=== PATIENT | female | born 1960 | race Caucasian/White ===

== ENCOUNTER → 2023-01-06 | Outpatient (CLI) | payer MEDICARE, SELFPAY ==
[2023-01-06 16:17] LABS: Anion Gap 0 (5-15); BUN 17 mg/dL (7-18); BUN/Creat Ratio 22.2 RATIO (10-20); Calcium,Total 8.8 mg/dL (8.5-10.1); Chloride 111 mmol/L (98-107); Creatinine, Serum 0.77 mg/dL (0.55-1.02); EST Glomerular Filtration Rate 81 mL/min (>60); Est Glom Filt Rate - Afr Amer 98 mL/min (>60); Glucose 102 mg/dL (74-106); Potassium 3.6 mmol/L (3.5-5.1); Sodium Level 139 mmol/L (136-145)
== END | disposition home or self-care (01) ==
LOC: LAB 14:35
PROVIDERS: Referring Provider Internal Medicine Cardiovascular Disease; Visit Provider Internal Medicine Cardiovascular Disease
DX: I25.10 Atherosclerotic heart disease of native coronary artery without angina pectoris (principal); R07.9 Chest pain, unspecified; R06.02 Shortness of breath; R60.9 Edema, unspecified
CPT/HCPCS: 36415; 80048

== ENCOUNTER 2024-07-10 17:54 | Inpatient (IN) | payer MEDICARE, MEDICAID, SELFPAY ==
[2024-07-10] VITALS (8 sets, daily range): BP systolic 84–132; BP diastolic 68–100; PULSE 73–79; RESP 12–18; TEMP 36.8–37.1; O2SAT 94–96; BMI 38.9
--- OUTSIDE RECORDS SUMMARY | 2024-07-10 18:25 | XMS RPT_ITS | CCD ---
Author Organization [facility] Care Team Providers Care Sexual Abuse Counsellor Name Role Phone Leticia Sylvester Unavailable Unavailable Yousuf, Sondra S Unavailable Unavailable Yousuf, Sondra S Unavailable Unavailable Higinio Nyan Unavailable Unavailable Higinio Nyan Unavailable Unavailable Lucille, Valentino J Unavailable Unavailable Lucille, Valentino J Unavailable Unavailable Charles Russell Unavailable Unavailable Charles Russell Unavailable Unavailable Adam Russ Unavailable Unavailable Adam Russ Unavailable Unavailable Higinio [place] Primary Care Provider Higinio [place] Primary Care Provider HIGINIO [facility] Primary Care Unavailable DIGNA ENRIQUEZ Referring Unavaila ble DIGNA ENRIQUEZ Admitting Unavaila ble Higinio [place] Primary Care Provider Digna Enriquez Unavailable Higinio CHUNG [place] Primary Care Provider Digan Enriquez DPM Unavailable Digna Enriquez DPM Unavailable CODY ANDERSONE Tanesha Referring Unavailable SHIRIMAGABOALIE N Attending Unavailable [facility] Primary Care Unavailable SELF, SELF Referring Unavailable RICE LISA N Attending Unavailable [facility] Primary Care Unavailable SELF, SELF Referring Unavailable RICE, LISA N Attending Unavailable [facility] Primary Care Unavailable [facility], [facility] Primary Care Unavailable SELF, SELF Referring Unavailable SHIRIMA, DAMALIE N Attending Unavailable [facility] Primary Care Unavailable [facility], [facility] Referring Unavailable SHIRIMA, DAMALIE N Attending Unavailable [facility] Primary Care Unavailable SHIRIMA, DAMALIE N Attending Unavailable NORIA, MARINE Referring Unavailable [facility] Primary Care Unavailable RICE, LISA N Referring Unavailable RICE, LISA N Attending Unavailable [facility], [facility] Referring Unavailable PUMPER, NESHA L Attending Unavailable [facility], [facility] Primary Care Unavailable [facility], [facility] Primary Care Unavailable RICE, LISA N Referring Unavailable MEIR GASPAR Attending Unavailable SELF, SELF Referring Unavailable SHIRIMA, DAMALIE N Attending Unavailable [facility], [facility] Primary Care Unavailable [facility], [facility] Referring Unavailable SHIRIMA, DAMALIE N Attending Unavailable [facility], [facility] Primary Care Unavailable SELF, SELF Referring Unavailable SHIRIMA, DAMALIE N Attending Unavailable [facility], [facility] Primary Care Unavailable PUMPER, NESHA L Attending Unavailable [facility], [facility] Primary Care Unavailable RICE, LISA N Referring Unavailable SELF, SELF Referring Unavailable [facility], [facility] Primary Care Unavailable RICE, LISA N Attending Unavailable Higinio CHUNG, [facility] Primary Care Provider Terrence CHUNG, Lupillo Unavailable Yanet [employer] DIRECT[employer], Jaime Unavailable [facility] Care Provider Terrence CHUNG, Lupillo Unavailable Yanet EXAMINATION SCORER-CONTRACTS DIRECTOR, Jaime Unavailable Robert [facility] DIRECT[facility], Eusebia [facility] Yanna CHUNG, Ishaan Unavailable [facility] Primary Care Unavailable JUDY GEORGE Attending Unavailable MIN SOUSA Attending Unavailab le [facility] Primary Care Unavailable [facility] [phone] [facility] Primary Care Unavailable ELI MORATAYA Referring Unavailable Terrence CHUNG, Lupillo Unavailable Yanet [facility] DIRECTOR, Jaime Unavailable [facility] Care Provider Robert [facility] DIRECTOR, Eusebia Unavailable [facility] [phone] CAROL ANN VICENTE Attending Unavailable [facility] Primary Care Unavailable SELF, SELF Referring Unavailable CAROL ANN VICENTE Referring Unavailable [facility], [facility] Primary Care Unavailable CAROL ANN VICENTE Attending Unavailable CALVIN PIMENTEL Admitting Unavailable CRISTIANO BEE Attending Unavailable [facility], [facility] Primary Care Unavailable [facility], [facility] Primary Care Unavailable [facility], [facility] Primary Care Unavailable Gould DO, Eduardo S Primary Care Provider PROVIDER, UNKNOWN Admitting Unavailable PROVIDER, UNKNOWN Attending Unavailable JAIME CARTER Referring Unavailable [facility], [facility] Primary Care Unavailable PROVIDER, UNKNOWN Admitting Unavailable JAIME CARTER Attending Unavailable [facility], [facility] Primary Care Unavailable PROVIDER, UNKNOWN Admitting Unavailable PROVIDER, UNKNOWN Attending Unavailable [facility], [facility] Primary Care Unavailable PROVIDER, UNKNOWN Attending Unavailable GILLER, JAIME Referring Unavailable [facility], [place] Primary Care Unavailable PROVIDER, UNKNOWN Admitting Unavailable ROYAL, EDUARDO S Primary Care Unavailable ROYAL, EDUARDO S Attending Unavailable ROYAL, EDUARDO S Primary Care Unavailable ROYAL, EDUARDO S Referring Unavailable ROYAL, EDUARDO S Primary Care Unavailable [facility], [facility] Primary Care Unavailable MARJAN CHARLES Attending Unavailable [facility], [facility] Primary Care Unavailable SOHAM SIFUENTES Attending Unavailable SYSTEM, PROVIDER NOT IN Referring Unavaila ble WIN, [place] Primary Care Unavailable Allergies Allergy Classification Reported Allergen(s) Allergy Type Date of Onset Reaction(s) Facility Latex (5 sources) Latex; Translations: [LATEX] Substance Allergy 9 Rash, Hives [facility] Opioid Agonists (9 sources) Codeine; Translations: [CODEINE] Drug Allergy 1 Hives, Itching [facility] Penicillins (antibiotic) (6 sources) Penicillin; Translations: [PENICILLINS] Drug Allergy 6 Itching, Rash, Hives [facility] (20 sources) codeine; Translations: [CODEINE] Propensity to adverse reactions to drug 1 Hives [facility] (20 sources) fentaNYL; Translations: [FENTANYL] Propensity to adverse reactions to drug 0 Itching [facility] (20 sources) Latex; Translations: [LATEX] Propensity to adverse reactions to drug 9 Rash, Hives [facility] (20 sources) penicillin; Translations: [PENICILLIN] Propensity to adverse reactions to drug 6 Itching, Rash [facility] (7 sources) Ct: Iodinated Contrast- Oral And Iv Dye; Translations: [CT: IODINATED CONTRAST- ORAL AND IV DYE] Propensity to adverse reactions to drug 2 Hives, Itching [facility] (20 sources) Penicillins; Translations: [PENICILLINS] Propensity to adverse reactions to drug 6 Hives, Itching, Rash [facility] (20 sources) Penicillin G; Translations: [PENICILLIN G POTASSIUM] Drug Allergy 6 [facility] Work Phone: (20 sources) Latex Propensity to adverse reactions to drug 5 Hives, Rash [facility] (5 sources) Ketorolac Drug Allergy 2 Hives, Pain [facility] (6 sources) Ketorolac; Translations: [KETOROLAC] Drug Allergy 3 Hives, Other (See Comments) [facility] (3 sources) Ketorolac trometamol Propensity to adverse reactions to drug 2 Hives, Pain [facility] Medications Current Medications Medication Drug Class(es) Dates Sig (Normalized) Sig (Original) acetaminophen 300 mg / codeine phosphate 30 mg oral tablet (20 sources) Opioid Agonist Start: 06-02-2007 TYLENOL/CODEINE #3 300-30 MG OR TABS 1 OR 2 TABLETS EVERY 4 TO 6 HOURS NEEDED FOR PAIN 28 0 06/02/2007 Active [id number] 200 actuat albuterol 0.09 mg/actuat metered dose inhaler (20 sources) beta2-Adrenergic Agonist Start: 11-05-2022 take 2 puff(s) by inhalation every six hours as needed for wheezing albuterol 90 mcg/actuation inhaler Inhale 2 (two) puffs every 6 (six) hours as needed for wheezing . 18 g 0 11/05/2022 Active Start: 11-28-2020 End: 12-01-2020 take 2.5 mg by inhalation every six hours as needed 2.5 mg, Nebulization, Every 6 hours PRN (RT), wheezing, shortness of breath, Starting 11/28/20 at 2028 Start: 11-01-2019 albuterol (PRO VENTIL HFA) INHALATION HFA inhaler (VENTOLIN,PROAIR,PROVENTIL) 90mcg Inhale 2 Puffs by mouth. 11/01/2019 Active Start: 11-01-2019 take 2 puff(s) by in halation every six hours as needed for wheezing albuterol 90 mcg/actuation inhaler Inhale 2 (two) puffs every 6 (six) hours as needed for wheezing . 1 Inhaler 0 11/01/2019 Active take 1 puff(s) by in halation every six hours as needed albuterol 108 (90 Base) MCG/ACT Aero Soln inhaler Inhale 1 puff every 6 hours as needed. Active albuterol 90 mcg/actuation inhaler (20 sources) Start: 11-01-2019 take 2 puff(s) by inhalation every six hours as needed for wheezing albuterol 90 mcg/actuation inhaler Inhale 2 (two) puffs every 6 (six) hours as needed for wheezing . 1 Inhaler 0 11/01/2019 Suspended Start: 11-01-2019 take 2 puff(s) by in halation every six hours as needed for wheezing albuterol 90 mcg/actuation inhaler Inhale 2 (two) puffs every 6 (six) hours as needed for wheezing . 1 Inhaler 0 11/01/2019 Active Start: 11-01-2019 End: 11-08-2019 take 2 puff(s) by inhalation every six hours as needed for wheezing albuterol 90 mcg/actuation inhaler Inhale 2 (two) puffs every 6 (six) hours as needed for wheezing . 1 Inhaler 0 11/01/2019 11/08/2019 Active ALPRAZolam 0.5 mg oral tablet (20 sources) Benzodiazepine Start: 06-08-2023 End: 07-08-2023 take 1 tablet by mouth twice daily as needed for anxiety ALPRAZolam (XANAX) 0.5 MG tablet Indications: Anxiety Take 1 (one) tablet (0.5 mg total) by mouth 2 (two) times a day as needed for anxiety (Days supply per fill: 30) . 60 tablet 0 06/08/2023 Active Start: 05-22-2023 End: 05-26-2023 take 1 mg by mouth twice daily as needed for anxiety 1 mg, Oral, 2 TIMES DAILY NEEDED, Starting on Thu05/22/23 at 2114, Until Thu05/26/23 at 1920, Anxiety Start: 01-28-2022 End: 01-31-2022 take 1 mg by mouth once daily 1 mg, Oral, DAILY, First dose on Thu01/28/22 at 1200, Until Discontinued Start: 11-29-2020 End: 12-01-2020 take 1 mg by mouth once daily 1 mg, Oral, Daily, First dose on Shy 11/29/20 at 0900 Start: 11-28-2020 End: 12-01-2020 ALPRAZolam (XANAX) tablet 0. 5 mg Start: 07-08-2019 End: 07-08-2019 take 1 tablet by mouth every eight hours as needed 0.25 mg, Oral, Every 8 hours PRN, anxiety, Starting Thu07/08/19 at 1010 May repeat x1 in 30 minutes if still anxious. XANAX OR Indicat ions: Dermatitis due to drugs and medicines taken internally(693.0) None Entered Active ALPRAZolam 1 MG tablet Take by mouth daily. Active take 1 tablet by alvino twice daily as needed ALPRAZolam 1 MG tablet Xanax 1 mg oral tablet take 1 tablet (1 mg) by oral route BID prn Suspended Active XANAX OR Indicat ions: Dermatitis due to drugs and medicines taken internally(693.0) None Entered 0 Active aMILoride hydrochloride 5 mg / hydroCHLOROthiazide 50 mg oral tablet (20 sources) Potassium-sparing Diuretic, Thiazide Diuretic Start: 02-16-2007 take 1 tablet by mouth once daily AMILORIDE-HYDROCHLOROTHIAZIDE 5-50 MG OR TABS 1 TABLET DAILY 30 3 02/16/2007 Active amLODIPine 2.5 mg oral tablet (20 sources) Dihydropyridine Calcium Channel Hero End: 05-24-2023 take 1 tablet by mouth once daily amLODIPine (NORVASC) 2.5 MG tablet Take 2.5 mg by mouth daily. Active atorvastatin 40 mg oral tablet (12 sources) HMG-CoA Reductase Inhibitor Start: 05-24-2023 End: 06-23-2023 take 1 tablet by mouth once daily in the evening Atorvastatin 40 MG tablet Take 1 tablet by mouth every evening at 6 PM. 30 tablet 05/24/2023 Active Start: 05-22-2023 End: 05-26-2023 take 20 mg by mouth once daily at bedtime 20 mg, Oral, DAILY AT BEDTIME, First dose on Thu05/22/23 at 2130, Until Discontinued brexpiprazole 2 mg oral tablet (20 sources) Atypical Antipsychotic Start: 06-17-2023 take 1 tablet by mouth once daily brexpiprazole (Rexulti) 2 mg tablet Take 1 (one) tablet (2 mg total) by mouth daily . 30 tablet 3 06/17/2023 Active Start: 06-17-2023 End: 05-24-2023 take 1 tablet by mouth once daily brexpiprazole (Rexulti) 2 mg tablet Take 1 (one) tablet (2 mg total) by mouth daily . 30 tablet 3 06/17/2023 Active Start: 11-29-2020 End: 12-01-2020 take 2 mg by mouth once daily in the morning 2 mg, Oral, Every morning, First dose on Shy 11/29/20 at 0900 Continuation of home therapy? Yes take 1 tablet by alvino th once daily in the morning Rexulti 2 MG tablet Take 1 tablet by mouth daily every morning. Active busPIRone hydrochloride 10 mg oral tablet (2 sources) Start: 07-28-2023 take 1 tablet by mouth twice daily busPIRone (BUSPAR) 10 MG tablet Indications: Anxiety disorder, unspecified type Take 1 (one) tablet (10 mg total) by mouth 2 (two) times a day . 30 tablet 3 07/28/2023 Active Start: 06-17-2023 End: 06-16-2024 take 1 tablet by mouth twice daily busPIRone (BUSPAR) 7.5 MG tablet Take 1 (one) tablet (7.5 mg total) by mouth 2 (two) times a day . 60 tablet 3 06/17/2023 06/16/2024 Active carvedilol 12.5 mg oral tablet (5 sources) alpha-Adrenergic Hero, beta-Adrenergic Hero Start: 05-24-2023 End: 06-23-2023 take 1 tablet by mouth twice daily carveDILOL 12.5 MG tablet Take 1 tablet by mouth 2 times daily. 60 tablet 05/24/2023 Active Start: 05-22-2023 End: 05-26-2023 take 12.5 mg by mouth every twelve hours 12.5 mg, Oral, EVERY 12 HOURS, First dose on Thu05/22/23 at 2130, Until Discontinued chlorhexidine gluconate 1.2 mg/ml mouthwash (20 sources) Start: 11-10-2017 take 15 mL by mouth twice daily chlorhexidine (PERIDEX) 0.12 % oral solution Take 15 mL by mouth 2 times daily. 1 Bottle 2 11/10/2017 Active cholecalciferol, vitamin D3, (VITAMIN D3 ORAL) (12 sources) take 125 ug by mouth once daily cholecalciferol, vitamin D3, (VITAMIN D3 ORAL) Take 125 mcg by mouth daily . 0 Active clindamycin 300 mg oral capsule (8 sources) Lincosamide Antibacterial Start: 12-01-2020 End: 12-08-2020 take 1 capsule by mouth four times daily clindamycin (CLEOCIN) 300 MG capsule Take 1 (one) capsule (300 mg total) by mouth 4 (four) times a day for 7 days . 28 capsule 0 12/01/2020 12/08/2020 Active Start: 11-28-2020 End: 12-01-2020 take 600 mg intravenous route every eight hours clindamycin (CLEOCIN) IVPB 600 mg (premix) cyclobenzaprine hydrochloride 10 mg oral tablet (6 sources) Muscle Relaxant Start: 02-16-2023 End: 04-17-2023 take 1 tablet by mouth three times daily as needed for muscle spasms Cyclobenzaprine 10 MG tablet Take 1 tablet by mouth 3 times daily as needed for Muscle spasms. 21 tablet 02/16/2023 Active dexamethasone 6 mg oral tablet (2 sources) Corticosteroid Start: 02-16-2023 End: 02-16-2023 dexAMETHasone (DECADRON) injection 10 mg Start: 10-22-2021 End: 10-26-2021 take 1 tablet by mouth once daily at breakfast dexAMETHasone (DECADRON) 6 MG tablet Take 1 (one) tablet (6 mg total) by mouth daily with breakfast for 4 days Start: 10/22/21. 4 tablet 0 10/22/2021 10/26/2021 Active diazePAM 10 mg oral tablet (1 source) Benzodiazepine Start: 02-18-2024 diazePAM (Valium) 10 mg tablet Take 1 tablet (10 mg) by mouth as needed at bedtime for anxiety. 02/18/2024 Active docusate sodium 50 mg / sennosides, skilled nursing 8.6 mg oral tablet (19 sources) Start: 12-01-2020 End: 12-31-2020 take 1 tablet by mouth once daily senna-docusate (SENNA-S) 8.6-50 mg Take 1 (one) tablet by mouth daily . 30 tablet 0 12/01/2020 12/31/2020 Active doxepin hydrochloride 25 mg oral capsule (3 sources) Tricyclic Antidepressant Start: 06-30-2023 take 1 capsule by mouth once daily doxepin (SINEQUAN) 25 MG capsule take 1 capsule by mouth nightly 30 capsule 0 06/30/2023 Active Start: 06-17-2023 End: 07-17-2023 take 1 capsule by mouth once daily doxepin (SINEQUAN) 50 MG capsule Take 1 (one) capsule (50 mg total) by mouth nightly . 30 capsule 3 06/17/2023 Active esomeprazole 40 mg delayed release oral capsule (20 sources) Proton Pump Inhibitor Start: 08-19-2022 End: 04-17-2023 take 1 capsule by mouth once daily 30 minutes before breakfast esomeprazole (NEXIUM) 40 MG capsule Indications: Hiatal hernia , Epigastric pain take 1 capsule by mouth daily THIRTY MINUTES BEFORE BREAKFAST 30 Capsule 3 12/16/2022 Active FLUoxetine 60 mg oral tablet (20 sources) Serotonin Reuptake Inhibitor take 60 mg by mouth once daily FLUoxetine HCl (PROZAC ORAL) Take 60 mg by mouth daily. Active End: 06-23-2019 FLUoxetine (PROzac) 40 MG ca psule Take 60 mg by mouth. 0 06/23/2019 Discontinued (Therapy completed) furosemide 20 mg oral tablet (20 sources) Loop Diuretic Start: 10-30-2008 furosemide (LA SIX) 20 MG tablet Take by mouth. 0 10/30/2008 Active Start: 10-30-2008 take 2 tablets by mo [facility] once daily in the morning furosemide (LASIX) 20 MG tablet Indications: pt takes 2 tabs daily Take 40 mg by mouth every morning Reasons: pt takes 2 tabs daily. 0 10/30/2008 Active End: 05-24-2023 take 1 tablet by mouth twice daily furOSEmide 20 MG tablet Lasix 20 mg oral tablet take 1 tablet (20 mg) by oral route 2 times per day Suspended 0 05/24/2023 Discontinued (Stop Taking at Discharge) Garlic preparation (20 sources) Non-Standardized Food Allergenic Extract GARLIC ORAL Take by mouth. Active GARLIC ORAL Take by mouth. 0 Active hydroCHLOROthiazide 25 mg oral tablet (20 sources) Thiazide Diuretic Start: 05-23-2023 End: 06-24-2023 take 1 tablet by mouth once daily hydroCHLOROthiazide 25 MG tablet Take 1 tablet by mouth daily. 30 tablet 05/25/2023 Active hydrOXYzine hydrochloride 50 mg oral tablet (20 sources) Antihistamine Start: 08-03-2023 hydrOXYzine hcl 50 MG tablet Take 1 tablet by mouth. 08/03/2023 Active Start: 04-07-2007 take 1-2 tablets by mouth once daily at bedtime HYDROXYZINE HCL 25 MG OR TABS 1 to 2 tablets qhs 60 2 04/07/2007 Active ibuprofen 800 mg oral tablet (20 sources) Nonsteroidal Anti-inflammatory Drug Start: 01-18-2007 take 1 tablet by mouth three times daily MOTRIN 800 MG OR TABS 1 TABLET 3 TIMES DAILY 90 2 01/18/2007 Active take 1 tablet by mouth every fou r hours MOTRIN 800 MG OR TABS 1 TABLET every four hours Active L-Methylfolate 15 mg Tab (20 sources) Start: 11-05-2020 take 1 tablet by mouth once daily L-Methylfolate 15 mg Tab Take 1 (one) tablet (15 mg total) by mouth daily . 0 11/05/2020 Active Start: 11-05-2020 take 1 tablet by alvino th once daily L-Methylfolate 15 mg Tab Take 15 mg by mouth daily . 0 11/05/2020 Active ammonium lactate 120 mg/ml topical lotion (20 sources) Start: 09-20-2015 ammonium lacta te (LAC-HYDRIN) 12 % lotion Indications: Dry skin Apply topically 2 times daily. Apply thin layer to affected area. 1 Bottle 3 09/20/2015 Active levomefolate calcium (DEPLIN ORAL) (12 sources) take 15 mg by mouth once daily in the morning levomefolate calcium (DEPLIN ORAL) Take 15 mg by mouth every morning . 0 Active take 15 mg by mouth once daily l evomefolate calcium (DEPLIN ORAL) Take 15 mg by mouth daily . 0 Active lisinopril 20 mg oral tablet (20 sources) Angiotensin Converting Enzyme Inhibitor End: 05-24-2023 take 1 tablet by mouth once daily lisinopril (ZESTRIL) 10 MG tablet Take 10 mg by mouth daily. Active take 1 tablet by mouth once dagmar y lisinopril (ZESTRIL) 20 MG tablet Take 20 mg by mouth daily. Active losartan potassium 50 mg oral tablet (20 sources) Angiotensin 2 Receptor Hero Start: 05-22-2023 End: 06-23-2023 take 1 tablet by mouth every twelve hours Losartan 50 MG tablet Take 1 tablet by mouth every 12 hours. 60 tablet 05/24/2023 Active Start: 11-29-2020 End: 05-24-2023 take 50 mg by mouth once daily 50 mg, Oral, DAILY, Fir st dose on Thu01/28/22 at 1200, Until Discontinued take 1 tablet by alvino th twice daily losartan (COZAAR) 50 MG tablet Take 1 (one) tablet (50 mg total) by mouth 2 (two) times a day . 0 Active End: 05-24-2023 Losartan 50 MG tablet 2 tabl ets. 0 05/24/2023 Discontinued (Stop Taking at Discharge) Multiple Vitamin (MULTI-MALISSA MIN ORAL) (20 sources) Multiple Vitamin (MULTI-VITAMIN ORAL) Take by mouth daily. Active Multiple Vitamin (MULTI-VITAMIN ORAL) Take by mouth daily. 0 Active 1 ml naloxone hydrochloride 0.4 mg/ml injection (3 sources) Opioid Antagonist Start: 08-11-2022 naloxone (NA RCAN) 0.4 MG/ML injection Start: 01-28-2022 End: 01-31-2022 naloxone (NARCAN) injection 0.04 mg nirmatrelvir-ritonavir (PAXLOVID) 300 MG & 100MG PO co-packaged tablets (1 source) Start: 09-01-2022 End: 09-06-2022 take 3 tablets by mouth twice daily nirmatrelvir-ritonavir (PAXLOVID) 300 MG & 100MG PO co-packaged tablets Take three tablets (2 x nirmatrelvir 150 mg plus 1 x ritonavir 100 mg) twice daily for 5 days. 30 tablet 0 09/01/2022 09/06/2022 Active nystatin 100 unt/mg topical powder (3 sources) Polyene Antifungal Start: 06-08-2023 End: 06-07-2024 nystatin (MYCOSTATIN) powder Apply topically 2 (two) times a day . 15 g 0 06/08/2023 06/07/2024 Active Start: 11-29-2020 End: 12-01-2020 nystatin (MYCOSTATIN) powder polyethylene glycol 3350 [id number] mg / potassium chloride 2970 mg / sodium bicarbonate 6740 mg / sodium chloride 5860 mg / sodium sulfate 62772 mg powder for oral solution (1 source) Osmotic Laxative Start: 04-23-2022 End: 04-23-2022 take 4000 mL by mouth once polyethylene glycol (GOLYTELY) oral solution Take 4,000 mL by mouth once for 1 dose. Use as directed prior to colonoscopy 4000 mL 0 04/23/2022 04/23/2022 Active predniSONE 20 mg oral tablet (3 sources) Start: 02-16-2023 End: 02-21-2023 take 1 tablet by mouth once daily predniSONE 20 MG tablet Take 1 tablet by mouth daily for 5 days. 5 tablet 0 02/16/2023 02/21/2023 Active Start: 11-01-2019 End: 11-04-2019 take 1 tablet by mouth once daily predniSONE (DELTASONE) 50 MG tablet Take 1 (one) tablet (50 mg total) by mouth daily for 3 days . 3 tablet 0 11/01/2019 11/04/2019 Active Start: 11-01-2019 End: 11-01-2019 predniSONE (DELTASONE) table t 60 mg propranolol hydrochloride 40 mg oral tablet (1 source) beta-Adrenergic Hero Start: 02-01-2024 take 1.5 tablets by mouth three times daily propranolol (Inderal) 40 mg tablet Take 1.5 tablets (60 mg) by mouth 3 times a day. 02/01/2024 Active ribavirin 200 mg oral capsule (20 sources) Nucleoside Analog Antiviral Start: 07-25-2015 take 2 capsules by mouth twice daily ribavirin (REBETOL) 200 MG capsule Take 2 Capsules by mouth 2 times daily. 150 Capsule 5 07/25/2015 Active sertraline 100 mg oral tablet (20 sources) Serotonin Reuptake Inhibitor End: 04-17-2023 take 1 tablet by mouth once daily ZOLOFT TABS 100 MG OR 1 TAB PO QD Active take 1 tablet by mouth once dagmar y Sertraline 50 MG tablet sertraline 50 mg oral tablet take 1 tablet (50 mg) by oral route once daily Suspended Active 10 ml sodium chloride 9 mg/m l injection (12 sources) Start: 10-09-2022 End: 10-09-2022 Sodium chloride 0.9% IV solution 75 mL Start: 09-01-2022 End: 09-01-2022 sodium chloride 0.9% IV solu tion 1,000 mL Start: 08-11-2022 sodium chlorid e 0.9 % (PF) 0.9 % injection Start: 08-11-2022 End: 08-11-2022 sodium chloride 0.9 % iv infusion Start: 01-27-2022 End: 01-31-2022 sodium chloride 0.9% IV solu tion Start: 01-27-2022 End: 01-27-2022 sodium chloride 0.9% IV solu tion 1,000 mL Start: 11-28-2020 End: 12-01-2020 sodium chloride 0.9% (NS) Start: 07-29-2019 End: 07-29-2019 sodium chloride 0.9% (NS) Start: 07-08-2019 End: 07-08-2019 take 75 mL intravenous route every hour 75 mL/hr, Intravenous, Continuous, Starting Thu07/08/19 at 1100, For 3 hours Start: 07-08-2019 End: 07-08-2019 sodium chloride 0.9% (NS) sofosbuvir 400 mg oral tablet (20 sources) Hepatitis C Virus Nucleotide Analog NS5B Polymerase Inhibitor Start: 07-25-2015 take 1 tablet by mouth once daily Sofosbuvir (SOVALDI) 400 MG TABS tablet Take 1 Tablet by mouth daily. 30 Tablet 5 07/25/2015 Active sucralfate 1000 mg oral tablet (20 sources) Aluminum Complex Start: 04-23-2022 take 1 tablet by mouth four times daily for pain sucralfate (CARAFATE) 1 GM tablet Indications: Rectal bleeding Take 1 Tablet by mouth 4 times daily. For upper abdominal pain. 120 Tablet 04/23/2022 Active traMADol hydrochloride 50 mg oral tablet (1 source) Opioid Agonist Start: 10-21-2021 End: 10-24-2021 take 1 tablet by mouth every four hours as needed for pain traMADoL (ULTRAM) 50 mg tablet Indications: Acute intractable headache, unspecified headache type Take 1 (one) tablet (50 mg total) by mouth every 4 (four) hours as needed for pain . 12 tablet 0 10/21/2021 10/24/2021 Active traZODone hydrochloride 50 mg oral tablet (20 sources) Serotonin Reuptake Inhibitor Start: 06-17-2023 End: 07-17-2023 take 1 tablet by mouth once daily as needed for sleep traZODone (DESYREL) 50 MG tablet Take 1 (one) tablet (50 mg total) by mouth nightly as needed for sleep . 30 tablet 3 06/17/2023 07/17/2023 Active Start: 05-22-2023 End: 05-26-2023 traZODone (DESYREL) tablet 3 00 mg Start: 02-05-2023 End: 02-16-2023 traZODone 100 MG tablet Start: 01-27-2022 End: 01-31-2022 traZODone (DESYREL) tablet 3 00 mg Start: 11-28-2020 End: 12-01-2020 take 300 mg by mouth once daily 300 mg, Oral, Nightly, First dose on Thu11/28/20 at 2130 take 2 tablets by mo uth once daily at bedtime traZODone (Desyrel) 100 mg tablet Take 2 tablets (200 mg) by mouth once daily at bedtime. Active take 1 tablet by mouth at bedtim e trazodone 300 MG tablet Take 1 tablet by mouth At bedtime. Active take 3 tablets by mo uth at bedtime traZODone (DESYREL) 100 MG tablet Take 3 (three) tablets (300 mg total) by mouth at bedtime . 0 Active triamcinolone acetonide 0.001 mg/mg topical ointment (20 sources) Corticosteroid Start: 06-02-2007 TRIAMCINOLONE ACETONIDE 0.1 % EX OINT apply bid to area affected 240gm 3 06/02/2007 Active trimethoprim 100 mg oral tablet (3 sources) Dihydrofolate Reductase Inhibitor Antibacterial Start: 10-15-2022 End: 04-17-2023 take 1 tablet by mouth once daily trimethoprim 100 MG tablet Take 1 tablet by mouth daily. 30 tablet 5 10/15/2022 04/13/2023 Active venlafaxine 75 mg oral tablet (1 source) Serotonin and Norepinephrine Reuptake Inhibitor Start: 02-22-2024 take 1 tablet by mouth twice daily venlafaxine (Effexor) 75 mg tablet Take 1 tablet (75 mg) by mouth 2 times a day. 02/22/2024 Active zinc sulfate 220 mg oral capsule (1 source) Start: 10-22-2021 End: 10-26-2021 take 1 capsule by mouth once daily zinc sulfate (ZINCATE) 50 mg zinc (220 mg) capsule Take 1 (one) capsule (220 mg total) by mouth daily for 4 days Start: 10/22/21. 4 capsule 0 10/22/2021 10/26/2021 Active Completed/Discontinued Medications Medication Drug Class(es) Dates Sig (Normalized) Sig (Original) acetaminophen 325 mg oral tablet (5 sources) Start: 05-22-2023 End: 05-22-2023 acetaminophen (OFIRMEV) IVPB 1,000 mg Start: 05-22-2023 End: 05-26-2023 take 325-650 mg by mouth every four hours as needed Acetaminophen (TYLENOL) tablet 325-650 mg Start: 01-27-2022 End: 01-31-2022 take 1 tablet by mouth every four hours as needed acetaminophen (TYLENOL) tablet 650 mg Start: 11-28-2020 End: 12-01-2020 take 1 tablet by mouth every four hours as needed acetaminophen (TYLENOL) tablet 650 mg acetaminophen 325 mg / HYDROcodone bitartrate 5 mg oral tablet (2 sources) Opioid Agonist Start: 05-22-2023 End: 05-24-2023 take 1 tablet by mouth every four hours as needed hydroCODone-acetaminophen (NORCO) 5-325 MG per tablet 1 tablet Start: 01-28-2022 End: 01-31-2022 take 1 tablet by mouth every six hours as needed hydroCODone-acetaminophen (NORCO) 5-325 MG per tablet 1 tablet acetaminophen 325 mg / oxyCODONE hydrochloride 5 mg oral tablet (8 sources) Opioid Agonist Start: 02-16-2023 End: 02-16-2023 oxyCODONE-acetaminophen (PERCOCET) 5-325 MG per tablet 1 Each Start: 11-20-2020 End: 12-04-2020 take 1 tablet by mouth every six hours as needed for pain oxyCODONE-acetaminophen (PERCOCET) 5-325 mg per tablet Indications: Cellulitis, unspecified cellulitis site Take 1 (one) tablet by mouth every 6 (six) hours as needed for pain . 12 tablet 0 12/01/2020 12/04/2020 Start: 11-14-2020 End: 11-14-2020 take 1 tablet by mouth every six hours as needed oxyCODONE-acetaminophen (PERCOCET) 5-325 mg per tablet 1 tablet albuterol 0.833 mg/ml / ipratropium bromide 0.167 mg/ml inhalation solution (15 sources) Anticholinergic, beta2-Adrenergic Agonist Start: 05-22-2023 End: 05-26-2023 take 3 mL by inhalation every four hours as needed Ipratropium-albuterol (DUONEB) 0.5-2.5 (3) MG/3ML nebulizer solution 3 mL Start: 11-14-2020 End: 11-14-2020 ipratropium-albuteroL (DUO-N EB) 0.5-2.5 mg/3 ml nebulizer solution 3 mL Start: 11-01-2019 End: 11-01-2019 ipratropium-albuterol (DUO-N EB) 0.5-2.5 mg/3 ml nebulizer solution 3 mL take 3 mL by inhalat ion every six hours as needed ipratropium-albuterol 0.5-2.5 (3) MG/3ML nebulizer solution Take 3 mL by nebulization every 6 hours as needed. Active aluminum hydroxide 40 mg/ml / magnesium hydroxide 40 mg/ml / simethicone 4 mg/ml oral suspension (2 sources) Start: 01-28-2022 End: 01-31-2022 take 30 mL by mouth every six hours as needed alum/mag hydrox.-simethicone oral suspension 30 mL Start: 07-08-2019 End: 07-08-2019 take 30 mL by mouth every four hours as needed 30 mL, Oral, Every 4 hours PRN, indigestion, Starting 07/08/19 at 1010 aspirin 81 mg delayed release oral tablet (20 sources) Nonsteroidal Anti-inflammatory Drug Start: 05-23-2023 End: 05-26-2023 take 81 mg by mouth once daily 81 mg, Oral, DAILY, First dose on Thu05/23/23 at 0900, Until Discontinued Start: 11-28-2020 End: 12-01-2020 take 325 mg by mouth twice daily 325 mg, Oral, 2 times daily, First dose on Thu11/28/20 at 2130 take 1 tablet by alvino th once daily aspirin 81 MG tablet Take 81 mg by mouth daily. Active End: 06-23-2019 aspirin 81 mg chewable table t Chew and Swallow 81 mg. 0 06/23/2019 Discontinued (Therapy completed) 1 ml atropine sulfate 1 mg/ml injection (1 source) Anticholinergic, Cholinergic Muscarinic Antagonist Start: 07-08-2019 End: 07-08-2019 1 mg, Intravenous, As needed , SINGLE DOSE for bradycardia (HR less than 50), complete heart block, or escape rhythms with symptoms of hemodynamic compromise, Starting Thu07/08/19 at 1010 [] NOTIFY PHYSICIAN, and request patient transfer to cardiac unit if not already there. [] If patient has history of glaucoma, notify physician before administering Atropine, if condition allows. bumetanide 1 mg oral tablet (20 sources) Loop Diuretic Start: 11-29-2020 End: 05-24-2023 take 1 mg by mouth once daily 1 mg, Oral, Daily, First dose on Thu11/29/20 at 0900 24 hr buPROPion hydrochloride 150 mg extended release oral tablet (20 sources) Aminoketone Start: 05-24-2016 End: 06-23-2019 buPROPion (WELLBUTRIN XL) 15 0 MG 24 hr tablet Start: 05-23-2016 End: 06-23-2019 buPROPion (WELLBUTRIN XL) 30 0 MG 24 hr tablet take 1 tablet by alvino th once daily buPROPion ER (WELLBUTRIN XL) 150 MG XL tablet Take 150 mg by mouth daily. Active take 1 tablet by alvino th once daily buPROPion (WELLBUTRIN XL) 300 MG XL tablet Take 300 mg by mouth daily. Active calcium chloride 0.0014 meq/ml / potassium chloride 0.004 meq/ml / sodium chloride 0.103 meq/ml / sodium lactate 0.028 meq/ml injectable solution (4 sources) Start: 11-14-2020 End: 11-14-2020 take 100 mL intravenous route every hour 100 mL/hr, Intravenous, Continuous, Starting Thu11/14/20 at 1230, PACU (only) Start: 11-14-2020 End: 11-14-2020 lactated Ringers infusion Start: 07-29-2019 End: 07-29-2019 take 50 mL intravenous route every hour 50 mL/hr, Intravenous, Continuous, Starting Thu07/29/19 at 1100, PACU (only) Start: 07-29-2019 End: 07-29-2019 lactated Ringers infusion cefTRIAXone (ROCEPHIN) 1 g in sodium chloride 0.9% (MB PLUS) 50 mL (total volume) IVPB (1 source) Start: 01-28-2022 End: 01-29-2022 take 1 g intravenously every twenty-four hours cefTRIAXone (ROCEPHIN) 1 g in sodium chloride 0.9% (MB PLUS) 50 mL (total volume) IVPB cholecalciferol 0.025 mg oral tablet (9 sources) Vitamin D Start: 01-28-2022 End: 01-31-2022 cholecalciferol (VITAMIN D3) tablet 1,000 Units take 1 tablet by alvino th once daily Cholecalciferol 50 MCG (2000 UT) tablet Vitamin D3 2,000 unit oral tablet take tablet by oral route daily Active Active End: 04-17-2023 take 1 tablet by mouth once daily cholecalciferol, vitamin D3, 50 mcg (2,000 unit) Tab Take 400 Units by mouth daily . 0 04/17/2023 Discontinued (Patient's Request) ciprofloxacin 500 mg oral tablet (1 source) Quinolone Antimicrobial Start: 11-27-2020 End: 12-01-2020 take 1 tablet by mouth every twelve hours ciprofloxacin HCl (CIPRO) 500 MG tablet Take 500 mg by mouth every 12 (twelve) hours For 10 days starting 11/27/20 . 0 11/27/2020 12/01/2020 Discontinued (Stop Taking at Discharge) cloNIDine hydrochloride 0.1 mg oral tablet (1 source) Central alpha-2 Adrenergic Agonist Start: 01-27-2022 End: 01-27-2022 cloNIDine (CATAPRES) tablet 0.1 mg Start: 01-27-2022 End: 01-27-2022 cloNIDine (CATAPRES) tablet 0.1 mg 24 hr desvenlafaxine succinate 100 mg extended release oral tablet (20 sources) Serotonin and Norepinephrine Reuptake Inhibitor Start: 05-23-2023 End: 05-26-2023 Desvenlafaxine Succinate tab XL 100 mg Start: 01-27-2022 End: 02-16-2023 Desvenlafaxine Succinate 100 MG Tab SR 24 HR Desvenlafaxine E R 100 MG Tab SR 24 HR Take by mouth daily. Active End: 04-17-2023 take 1 tablet by mouth once daily desvenlafaxine succinate (PRISTIQ) 100 MG 24 hr tablet Take 1 (one) tablet (100 mg total) by mouth daily . 0 04/17/2023 Discontinued (Patient's Request) take 1 tablet by alvino th once daily in the morning, then take 1 tablet by mouth every twenty-four hours desvenlafaxine succinate (PRISTIQ) 50 MG 24 hr tablet Take 50 mg by mouth every morning . 0 Active dicyclomine hydrochloride 20 mg oral tablet (2 sources) Anticholinergic Start: 05-20-2021 End: 04-17-2023 take 1 tablet by mouth three times daily as needed dicyclomine (BENTYL) 20 mg tablet Take 1 (one) tablet (20 mg total) by mouth 3 (three) times a day as needed (abdominal cramping) . 30 tablet 0 05/20/2021 04/17/2023 Discontinued (Patient's Request) 1 ml diphenhydrAMINE hydrochloride 50 mg/ml cartridge (4 sources) Histamine-1 Receptor Antagonist Start: 05-22-2023 End: 05-26-2023 take 25 mg intravenously every six hours as needed diphenhydrAMINE (BENADRYL) injection 25 mg Start: 09-01-2022 End: 09-01-2022 diphenhydrAMINE (BENADRYL) injection 50 mg Start: 01-28-2022 End: 01-31-2022 take 25 mg intravenously every six hours as needed diphenhydrAMINE (BENADRYL) injection 25 mg Start: 11-01-2019 End: 11-01-2019 diphenhydrAMINE (BENADRYL) injection 50 mg docusate sodium 100 mg oral capsule (20 sources) Start: 01-28-2022 End: 01-31-2022 take 200 mg by mouth once daily at bedtime 200 mg, Oral, DAILY AT BEDTIME, First dose on Thu01/28/22 at 2100, Until Discontinued Start: 11-29-2020 End: 12-01-2020 docusate sodium (COLACE) cap rolando 200 mg Start: 06-30-2017 End: 05-26-2023 take 1 capsule by mouth twice daily docusate 100 MG Cap take 1 capsule by mouth 2 times daily. 30 capsule 3 06/30/2017 Active Docusate Sodium (DOC-Q-LACE ORAL) Take by mouth as needed. Active take 2 capsules by m outh twice daily docusate 100 MG capsule Take 2 capsules by mouth Twice daily. Active Docusate Sodium (DOC-Q-LACE ORAL) Take by mouth as needed. 0 Active doxycycline hyclate 100 mg oral capsule (1 source) Tetracycline-class Drug Start: 11-27-2020 End: 12-01-2020 take 1 capsule by mouth twice daily doxycycline hyclate (VIBRAMYCIN) 100 MG capsule Take 100 mg by mouth 2 (two) times a day For 10 days starting 11/27/20 . 0 11/27/2020 12/01/2020 Discontinued (Stop Taking at Discharge) DULoxetine 30 mg delayed release oral capsule (20 sources) Serotonin and Norepinephrine Reuptake Inhibitor Start: 01-28-2022 End: 01-31-2022 take 1 capsule by mouth once daily 60 mg, Oral, DAILY, First dose on Thu01/28/22 at 1200, Until Discontinued Swallow capsule whole; do not crush or chew. May add contents of capsule to apple juice or applesauce (but NOT chocolate) taking care not to crush the pellets and damage the enteric coating. Start: 11-29-2020 End: 02-16-2023 take 60 mg by mouth once daily in the morning 60 mg, Oral, Every morning, First dose on Thu11/29/20 at 0900 DO NOT CRUSH OR CHEW. 0.4 ml enoxaparin sodium 100 mg/ml prefilled syringe (3 sources) Low Molecular Weight Heparin Start: 05-23-2023 End: 05-26-2023 Enoxaparin Sodium (LOVENOX) injection 40 mg Start: 01-28-2022 End: 01-31-2022 Enoxaparin Sodium (LOVENOX) injection 40 mg Start: 11-28-2020 End: 12-01-2020 enoxaparin (LOVENOX) syringe 40 mg estrogens, conjugated (skilled nursing) 0.625 mg/ml vaginal cream (20 sources) Estrogen Start: 11-27-2020 End: 11-28-2020 Premarin vaginal cream apply topically two times a week 0 11/27/2020 11/28/2020 Discontinued (Error) End: 04-17-2023 conjugated estrogens (PREMAR IN) vaginal cream Insert into the vagina twice weekly . 0 04/17/2023 Discontinued (Patient's Request) eszopiclone 2 mg oral tablet (20 sources) End: 05-24-2023 take 1 tablet by mouth at bedtime eszopiclone 2 MG tablet Take by mouth at bedtime. 0 05/24/2023 Discontinued (Stop Taking at Discharge) famotidine 20 mg oral tablet (1 source) Histamine-2 Receptor Antagonist Start: 09-01-2022 End: 09-01-2022 faMOTIdine (PEPCID) tablet 20 mg 1 ml hydrALAZINE hydrochloride 20 mg/ml injection (17 sources) Arteriolar Vasodilator Start: 05-22-2023 End: 05-26-2023 take 10 mg intravenously every six hours as needed hydrALAZINE (APRESOLINE) injection 10 mg Start: 09-16-2022 End: 05-24-2023 take 1 tablet by mouth three times daily hydrALAZINE 50 MG tablet Take 1 tablet by mouth 3 times daily. 0 09/16/2022 05/24/2023 Discontinued (Stop Taking at Discharge) Start: 01-27-2022 hydrALAZINE (A PRESOLINE) injection 5 mg Start: 01-08-2022 End: 05-24-2023 take 1 tablet by mouth three times daily hydrALAZINE 25 MG tablet Take 1 tablet by mouth 3 times daily. 0 01/08/2022 05/24/2023 Discontinued (Stop Taking at Discharge) Start: 07-29-2019 End: 07-29-2019 5 mg, Intravenous, Every 15 min PRN, SBP greater than 160 or DBP greater than 90, Starting Thu07/29/19 at 1011, For 4 doses, PACU (only) [] Do not give more than 20 mg total. [] Hold for HR greater than 100. [] Administer if labetalol or metoprolol ineffective at maximum dose or not ordered. 1 ml HYDROmorphone hydrochloride 1 mg/ml injection (4 sources) Opioid Agonist Start: 02-16-2023 End: 02-16-2023 HYDROmorphone (DILAUDID) injection 0.5 mg Start: 02-16-2023 End: 02-16-2023 HYDROmorphone (DILAUDID) inj ection 1 mg Start: 11-28-2020 End: 11-28-2020 HYDROmorphone (DILAUDID) inj ection 0.5 mg Start: 11-14-2020 End: 11-14-2020 0.5 mg, Intravenous, Every 5 min PRN, Pain, Starting 11/14/20 at 1136, For 6 doses, PACU (only) [] Give if fentanyl not effective or not ordered. [] Do not give more than 3 mg total. iohexol (OMNIPAQUE) 350 MG/ML injection 100 mL (1 source) Start: 10-09-2022 End: 10-09-2022 iohexol (OMNIPAQUE) 350 MG/ML injection 100 mL iopamidol (ISOVUE-370) 76 % injection 75 mL (1 source) Start: 09-20-2019 End: 09-20-2019 iopamidol (ISOVUE-370) 76 % injection 75 mL 1 ml ketorolac tromethamine 30 mg/ml cartridge (4 sources) Nonsteroidal Anti-inflammatory Drug, Cyclooxygenase Inhibitor Start: 09-01-2022 End: 09-01-2022 ketorolac (TORADOL) injection 30 mg Start: 01-27-2022 End: 01-31-2022 take 30 mg intravenously every eight hours as needed ketorolac (TORADOL) injection 30 mg Start: 11-30-2020 End: 11-30-2020 ketorolac (TORADOL) injectio n 15 mg Start: 11-01-2019 End: 11-01-2019 ketorolac (TORADOL) injectio n 15 mg labetalol hydrochloride 5 mg/ml injectable solution (4 sources) beta-Adrenergic Hero Start: 05-22-2023 End: 05-26-2023 take 20 mg intravenously every four hours as needed Labetalol (NORMODYNE) injection 20 mg Start: 01-28-2022 End: 01-31-2022 take 20 mg intravenously every four hours as needed labetalol (NORMODYNE) injection 20 mg Start: 11-14-2020 End: 11-14-2020 5 mg, Intravenous, Every 5 m in PRN, SBP greater than 180 or DBP greater than 120, Starting 11/14/20 at 1136, For 4 doses, PACU (only) [] Do not give more than 20 mg total. [] Hold for HR less than 50. Start: 07-29-2019 End: 07-29-2019 5 mg, Intravenous, Every 5 m in PRN, SBP greater than 160 or DBP greater than 90, Starting 07/29/19 at 1011, For 4 doses, PACU (only) [] Do not give more than 20 mg total. [] Hold for HR less than 50. lactulose 667 mg/ml oral solution (2 sources) Osmotic Laxative Start: 05-22-2023 End: 05-26-2023 take 20 g by mouth every four hours as needed lactulose (CHRONULAC) oral solution 20 g Start: 01-28-2022 End: 01-31-2022 take 20 g by mouth every four hours as needed lactulose (CHRONULAC) oral solution 20 g 1 ml LORazepam 2 mg/ml injection (3 sources) Benzodiazepine Start: 05-22-2023 End: 05-22-2023 LORazepam (ATIVAN) injection 0.5 mg Start: 05-22-2023 End: 05-23-2023 LORazepam (ATIVAN) injection 1 mg magnesium oxide 400 mg oral tablet (1 source) Start: 05-25-2023 End: 05-25-2023 magnesium oxide (MAG-OX) tab let 400 mg 50 ml magnesium sulfate 40 m g/ml injection (2 sources) Start: 05-23-2023 End: 05-26-2023 Magnesium sulfate 2 g/50 ml in sterile water premix IVPB 2 g 50 mL (total volume) Start: 01-29-2022 End: 01-31-2022 magnesium sulfate 2 g/50 mL in sterile water premix IVPB 2 g 50 mL (total volume) melatonin 3 mg oral tablet (2 sources) Start: 05-22-2023 End: 05-26-2023 Melatonin tablet 6 mg Start: 01-28-2022 End: 01-31-2022 melatonin tablet 3 mg Meperidine (1 source) Opioid Agonist Start: 11-14-2020 End: 11-14-2020 12.5 mg, Intravenous, Every 5 min PRN, shivering, Starting Thu11/14/20 at 1136, For 2 doses, PACU (only) Do not give more than 25 mg total. RESTRICTED to use in rigors OR pain management in patients with a documented opioid allergy. Please select this medication s indication. Rigors methylPREDNISolone 125 mg injection (1 source) Corticosteroid Start: 09-01-2022 End: 09-01-2022 methylPREDNISolone sodium succinate (SOLU-MEDROL) injection 125 mg 2 ml metoclopramide 5 mg/ml injection (1 source) Dopamine-2 Receptor Antagonist Start: 11-01-2019 End: 11-01-2019 metoclopramide (REGLAN) injection 10 mg metOLazone 2.5 mg oral tablet (20 sources) Thiazide-like Diuretic Start: 12-04-2020 End: 12-01-2020 take 2.5 mg by mouth every week 2.5 mg, Oral, Weekly, First dose on Thu12/04/20 at 0900 End: 05-24-2023 take 1 tablet by mouth every week metOLazone 2.5 MG tablet Take 1 tablet by mouth once a week. Tuesdays 0 05/24/2023 Discontinued (Stop Taking at Discharge) metoprolol tartrate 25 mg oral tablet (20 sources) beta-Adrenergic Hero Start: 01-28-2022 End: 05-24-2023 take 25 mg by mouth twice daily 25 mg, Oral, 2 TIMES DAILY, First dose on Thu01/28/22 at 1130, Until Discontinued Start: 02-22-2020 End: 02-15-2021 metoprolol (TOPROL-XL) 25 mg XL tablet Take 25 mg by mouth. 02/22/2020 Active Start: 07-05-2019 take 1 tablet by alvino th twice daily metoprolol succinate (TOPROL-XL) 25 MG 24 hr tablet Take 1 (one) tablet (25 mg total) by mouth 2 (two) times a day . 90 tablet 3 07/05/2019 Active Start: 06-23-2019 End: 06-22-2020 take 0.5 tablet by mouth once daily metoprolol succinate (TOPROL-XL) 25 MG 24 hr tablet Indications: Chest pain, unspecified type Take 0.5 (one-half) tablet (12.5 mg total) by mouth daily . 15 tablet 11 06/23/2019 06/22/2020 Active End: 05-24-2023 take 1 tablet by mouth once daily Metoprolol succinate 25 MG tablet XL metoprolol succinate 25 mg oral tablet extended release 24 hr take 1 tablet (25 mg) by oral route once daily Active 0 05/24/2023 Discontinued (Stop Taking at Discharge) take 1 tablet by alvino th twice daily metoprolol succinate (TOPROL-XL) 25 MG 24 hr tablet Take 25 mg by mouth 2 (two) times a day . 0 Active 5 ml midazolam 1 mg/ml injection (1 source) Benzodiazepine Start: 11-14-2020 End: 11-14-2020 2 mg, Intravenous, Once, Thu11/14/20 at 1130, For 1 dose, Pre-Procedure Start: 11-14-2020 End: 11-14-2020 2 mg, Intravenous, Once, Thu11/14/20 at 1130, For 1 dose, Pre-Procedure 1 ml morphine sulfate 2 mg/ml cartridge (2 sources) Opioid Agonist Start: 01-27-2022 End: 01-27-2022 morphine (PF) injection 2 mg Start: 01-27-2022 End: 01-27-2022 morphine (PF) injection 2 mg naloxone (NARCAN) injection 0.1 mg (4 sources) Start: 11-28-2020 End: 12-01-2020 naloxone (NARCAN) injection 0.1 mg Start: 11-14-2020 End: 11-14-2020 naloxone (NARCAN) injection 0.1 mg Start: 11-14-2020 End: 11-14-2020 naloxone (NARCAN) injection 0.1 mg Start: 07-29-2019 End: 07-29-2019 naloxone (NARCAN) injection 0.1 mg 200 ml niCARdipine hydrochloride 0.1 mg/ml injection (1 source) Dihydropyridine Calcium Channel Hero Start: 05-22-2023 End: 05-23-2023 niCARdipine in sodium chloride (CARDENE) 20 mg/200 mL premix IV infusion NIFEdipine 60 mg osmotic 24 hr extended release oral tablet (2 sources) Dihydropyridine Calcium Channel Hero Start: 01-06-2023 End: 05-24-2023 NIFEdipine 60 MG (OSM) tablet XL nitroglycerin 0.02 mg/mg topical ointment (1 source) Nitrate Vasodilator Start: 01-29-2022 End: 01-31-2022 nitroGLYCERIN (NITRO-BID) 2 % ointment 0.5 inch 2 ml ondansetron 2 mg/ml injection (20 sources) Serotonin-3 Receptor Antagonist Start: 05-22-2023 End: 05-26-2023 take 4 mg intravenously every four hours as needed Ondansetron 4mg/2ml (ZOFRAN) injection 4 mg Start: 05-01-2023 take 4 mg by mouth e very eight hours as needed ondansetron (ZOFRAN) 8 MG tablet Take 0.5 (one-half) tablet (4 mg total) by mouth every 8 (eight) hours as needed . 11 tablet 0 05/01/2023 Active Start: 02-16-2023 End: 02-16-2023 Ondansetron 4mg/2ml (ZOFRAN) injection 4 mg Start: 08-11-2022 End: 08-11-2022 ondansetron (ZOFRAN) 4 MG/2M L injection Start: 01-27-2022 End: 01-31-2022 take 4 mg intravenously every four hours as needed ondansetron 4mg/2ml (ZOFRAN) injection 4 mg Start: 05-20-2021 End: 05-24-2023 take 1 tablet by mouth every four hours as needed ondansetron 4 MG Tab Dispersible tablet Take 1 tablet by mouth every 4 hours as needed for Nausea. Place on tongue 30 tablet 0 09/01/2022 05/24/2023 Discontinued (Stop Taking at Discharge) Start: 11-28-2020 End: 11-28-2020 ondansetron (ZOFRAN) injecti on 4 mg Start: 11-14-2020 End: 11-14-2020 take 4 mg intravenous route every twenty-four hours as needed 4 mg, Intravenous, Once as needed, nausea, vomiting, Starting Thu11/14/20 at 1136, For 1 dose, PACU (only) Administer first as needed for nausea/vomiting, or as directed by anesthesia Start: 07-29-2019 End: 07-29-2019 4 mg, Intravenous, Every 15 min PRN, nausea, vomiting, Starting Thu07/29/19 at 1011, For 2 doses, PACU (only) Do not give more than 2 doses. Administer first as needed for nausea/vomiting, or as directed by anesthesia ondansetron (ZOFRAN-ODT) disintegrating tablet 4 mg (1 source) Start: 07-08-2019 End: 07-08-2019 take 1 tablet by mouth every six hours as needed ondansetron (ZOFRAN-ODT) disintegrating tablet 4 mg oseltamivir 75 mg oral capsule (6 sources) Neuraminidase Inhibitor Start: 09-09-2022 End: 05-24-2023 Oseltamivir 75 MG capsule Take by mouth 2 times daily. 0 09/09/2022 05/24/2023 Discontinued (Stop Taking at Discharge) oxyCODONE hydrochloride 1 mg/ml oral solution (1 source) Opioid Agonist Start: 11-28-2020 End: 12-01-2020 take 5 mg by mouth every four hours as needed oxyCODONE (ROXICODONE) solution 5 mg pantoprazole 40 mg delayed release oral tablet (16 sources) Proton Pump Inhibitor Start: 01-28-2022 End: 05-26-2023 Pantoprazole (PROTONIX) tablet DR 40 mg PERFLUTREN LIPID MICROSPHERE 1.3 ML/8.7ML (1 source) Start: 01-28-2022 End: 01-28-2022 PERFLUTREN LIPID MICROSPHERE 1.3 ML/8.7ML polyethylene glycol [id number] mg powder for oral solution (1 source) Osmotic Laxative Start: 05-23-2023 End: 05-26-2023 Polyethylene glycol (MIRALAX) packet 17 g potassium bicarbonate 25 meq effervescent oral tablet (2 sources) Start: 01-28-2022 End: 01-28-2022 potassium bicarbonate (EFFER-K) effervescent tablet 25 mEq Start: 11-01-2019 End: 11-01-2019 potassium bicarbonate (K-LYT E) 25 MEQ disintegrating tablet 50 mEq Potassium Chloride (20 sources) Start: 05-23-2023 End: 05-26-2023 Potassium chloride (K-DUR) t ablet ER 40 mEq Start: 01-29-2022 End: 01-31-2022 potassium chloride (K-DUR) t ablet ER 40 mEq Start: 01-28-2022 End: 01-28-2022 potassium chloride 20 mEq in 100 ml premix IVPB Start: 01-27-2022 End: 01-27-2022 potassium chloride (K-DUR) t ablet ER 40 mEq Start: 11-29-2020 potassium chlo ride SA (K-DUR,KLOR-CON) CR tablet 40 mEq Start: 10-10-2020 End: 04-17-2023 take 1 tablet by mouth once daily potassium chloride SA (K-DUR,KLOR-CON) 20 MEQ tablet Take 1 (one) tablet (20 mEq total) by mouth daily . 0 10/10/2020 04/17/2023 Discontinued (Patient's Request) End: 05-24-2023 potassium chloride 10 MEQ Ta b CR tablet ER Not taking 0 05/24/2023 Discontinued (Stop Taking at Discharge) potassium phosphates 30 mmol in sodium chloride 0.9%, with overfill 535 mL (total volume) IVPB (1 source) Start: 01-28-2022 End: 01-31-2022 potassium phosphates 30 mmol in sodium chloride 0.9%, with overfill 535 mL (total volume) IVPB Potassium phosphates 30 mmol in Sodium chloride 0.9%, with overfill 535 mL (total volume) IVPB (1 source) Start: 05-22-2023 End: 05-26-2023 Potassium phosphates 30 mmol in Sodium chloride 0.9%, with overfill 535 mL (total volume) IVPB 2 ml prochlorperazine 5 mg/ml injection (1 source) Phenothiazine Start: 11-14-2020 End: 11-14-2020 take 5 mg intravenous route every twenty-four hours as needed 5 mg, Intravenous, Once as needed, nausea, Starting 11/14/20 at 1136, For 1 dose, PACU (only) Adminis ter if ondansetron (Zofran), promethazine (Phenergan), and Metocolopramide (Reglan) ineffective or not ordered, or as directed by anesthesia, as needed for nausea/vomiting promethazine hydrochloride 25 mg oral tablet (1 source) Phenothiazine Start: 07-29-2019 End: 07-29-2019 take 1 tablet by mouth every twenty-four hours as needed 12.5 mg, Oral, Once as needed, nausea, vomiting, Starting Thu07/29/19 at 1011, For 1 dose, PACU (only) Administer if ondansetron (Zofran) ineffective or not ordered, and patient can tolerate oral administration, or as directed by anesthesia, as needed for nausea/vomiting 100 ml propofol 10 mg/ml injection (2 sources) General Anesthetic Start: 08-11-2022 End: 08-11-2022 propofol (DIPRIVAN) 1000 MG/100ML infusion regadenoson (LEXISCAN) injection 0.4 mg (1 source) Start: 01-30-2022 End: 01-30-2022 regadenoson (LEXISCAN) injection 0.4 mg spironolactone 25 mg oral tablet (5 sources) Aldosterone Antagonist Start: 06-23-2019 End: 06-22-2020 take 1 tablet by mouth once daily spironolactone (Aldactone) 25 MG tablet Indications: Chest pain, unspecified type Take 1 (one) tablet (25 mg total) by mouth daily . 10 tablet 0 06/23/2019 07/28/2019 Discontinued SUMAtriptan 50 mg oral tablet (1 source) Serotonin-1b and Serotonin-1d Receptor Agonist Start: 05-22-2023 End: 05-26-2023 take 100 mg by mouth twice daily as needed 100 mg, Oral, 2 TIMES DAILY NEEDED, Starting on Thu05/22/23 at 2117, Until Thu05/26/23 at 1920, Migraine Max 200 mg/24 hr TC-99M Cardiolite (Sestamibi) IVPB 5-30 millicurie (1 source) Start: 01-30-2022 End: 01-30-2022 TC-99M Cardiolite (Sestamibi) IVPB 5-30 millicurie tiZANidine 2 mg oral tablet (15 sources) Central alpha-2 Adrenergic Agonist Start: 05-22-2023 End: 05-26-2023 take 1 tablet by mouth every eight hours as needed 4 mg, Oral, EVERY 8 HOURS NEEDED, Starting on Thu05/22/23 at 2114, Until 9/5/23 at 1920, Muscle spasms Max: 36 mg/day Start: 01-28-2022 End: 01-31-2022 take 1 tablet by mouth every eight hours as needed 2 mg, Oral, EVERY 8 HOURS NEEDED, Starting on Thu01/28/22 at 1121, Until Thu01/31/22 at 1258, Muscle spasms Max: 36 mg/day Start: 07-23-2021 take 1 tablet by alvino th three times daily tiZANidine 4 MG tablet take 1 tablet by mouth three times a day if needed 01/01/2022 Active topiramate 25 mg oral tablet (20 sources) Start: 01-27-2022 End: 01-31-2022 topiramate (TOPAMAX) tablet 50 mg Start: 08-29-2021 End: 05-24-2023 topiramate 25 MG tablet Take 2 tablets by mouth. 08/29/2021 Active take 1 tablet by alvino th twice daily topiramate (TOPAMAX) 25 MG tablet Take 25 mg by mouth 2 times daily. Active End: 05-24-2023 take 1 tablet by mouth once daily Topiramate 25 MG tablet Topamax 25 mg tablet take 1 tablet (25 mg) by oral route once daily Active 0 05/24/2023 Discontinued (Stop Taking at Discharge) zolpidem tartrate 5 mg oral tablet (4 sources) gamma-Aminobutyric Acid-ergic Agonist Start: 05-22-2023 End: 05-22-2023 Zolpidem (AMBIEN) tablet Start: 05-22-2023 End: 05-26-2023 Zolpidem (AMBIEN) tablet 10 mg Start: 01-27-2022 End: 01-31-2022 take 5 mg by mouth once daily at bedtime as needed for sleep 5 mg, Oral, DAILY AT BEDTIME NEEDED, Starting on Thu01/28/22 at 1120, Until Thu01/31/22 at 1258, Sleep Problems Active Problems Problem Classification Problem Date Documented Da te Episodic/Chronic Administrative/social admission (8 sources) Finding related to ability to use transport; Translations: [Other problems related to care provider dependency] Onset: 01-27-2024 Episodic Allergic reactions (1 source) Allergy to drug; Translations: [Allergy status to unspecified drugs, medicaments and biological substances status] Episodic Anxiety disorders (20 sources) Anxiety; Translations: [Anxiety disorder, unspecified] Onset: 1 11-01-2020 Chronic Asthma (2 sources) Mild intermittent asthma with (acute) exacerbation; Translations: [Mild intermittent asthma with (acute) exacerbation] Onset: 3 Chronic Attention-deficit, conduct, and disruptive behavior disorders (2 sources) Attention-deficit hyperactivity disorder, unspecified type; Translations: [Attention-deficit hyperactivity disorder, unspecified type] Onset: 3 Chronic Cancer of other GI organs; peritoneum (20 sources) Malignant neoplasm of gastrointestinal tract; Translations: [Gastrointestinal stromal tumor, unspecified site] Onset: 0 06-12-2010 Chronic Coagulation and hemorrhagic disorders (20 sources) Platelet count below reference range; Translations: [Thrombocytopenia, unspecified] Onset: 7 Chronic Coronary atherosclerosis and other heart disease (20 sources) Coronary arteriosclerosis in [place] artery; Translations: [Coronary arteriosclerosis] Onset: 9 06-23-2019 Chronic Deficiency and other anemia (20 sources) Aplastic anemia; Translations: [Other specified aplastic anemias] Onset: 7 02-18-2007 Chronic Diabetes mellitus without complication (10 sources) Hyperglycemia; Translations: [Hyperglycemia, unspecified] Onset: 3 05-23-2023 Episodic Diseases of white blood cells (10 sources) Leukopenia; Translations: [Decreased white blood cell count, unspecified] Onset: 2 Chronic Disorders of lipid metabolism (9 sources) Hyperlipidemia; Translations: [Mixed hyperlipidemia] Onset: 3 05-23-2023 Chronic E Codes: Fall (2 sources) Unspecified fall, initial encounter; Translations: [Unspecified fall, initial encounter] Onset: 4 Episodic E Codes: Place of occurrence (2 sources) Unspecified place in unspecified non-institutional (private) residence as the place of occurrence of the external cause; Translations: [Unspecified place in unspecified non-institutional (private) residence as the place of occurrence of the external cause] Onset: 4 Episodic Endometriosis (20 sources) Endometriosis of uterus; Translations: [Endometriosis of uterus] Onset: 6 01-04-2019 Chronic Essential hypertension (20 sources) Essential hypertension; Translations: [Hypertensive disorder] Onset: 6 11-03-2020 Chronic Gastrointestinal hemorrhage (1 source) Blood-tinged feces; Translations: [Hematochezia] Genitourinary symptoms and ill-defined conditions (6 sources) Microscopic hematuria; Translations: [Other microscopic hematuria] Episodic Headache; including migraine (6 sources) Headache; including migraine; Translations: [Headache, unspecified] Onset: 2 Hemorrhoids (2 sources) Internal hemorrhoids grade I; Translations: [First degree hemorrhoids] Episodic Hepatitis (10 sources) Chronic hepatitis C; Translations: [Chronic viral hepatitis C] Onset: 2 01-28-2022 Chronic Immunizations and screening for infectious disease (6 sources) Contact with and (suspected) exposure to other viral communicable diseases; Translations: [Patient encounter status] Episodic Miscellaneous mental health disorders (3 sources) Primary insomnia; Translations: [Primary insomnia] Onset: 4 02-26-2024 Chronic Miscellaneous mental health disorders (1 source) Anxiety about body function or health; Translations: [Other symptoms and signs involving emotional state] 01-27-2024 Episodic Mood disorders (20 sources) Depressive disorder; Translations: [Major depressive disorder, single episode, unspecified] Onset: 6 Resolved: 4 01-06-2006 Chronic Nutritional deficiencies (16 sources) Vitamin D deficiency; Translations: [Vitamin D deficiency, unspecified] Onset: 2 Chronic Osteoarthritis (1 source) Osteoarthritis of left knee joint; Translations: [Unilateral primary osteoarthritis, left knee] 07-01-2023 Chronic Other and unspecified benign neoplasm (3 sources) History of polyp of colon; Translations: [Personal history of colonic polyps] Episodic Other and unspecified benign neoplasm (1 source) Adenomatous polyp of colon ; Translations: [Benign neoplasm of sigmoid colon] Episodic Other connective tissue disease (1 source) Pain in lower limb; Translations: [Bilateral pain of leg and foot] Episodic Other connective tissue disease (1 source) Swelling of limb; Translations: [Other specified soft tissue disorders] Episodic Other connective tissue disease (1 source) Pain of left lower leg; Translations: [Pain in left lower leg] 04-17-2023 Episodic Other connective tissue disease (20 sources) Calcaneal spur of right foot; Translations: [Heel spur, right] Onset: 1 11-03-2020 Other fractures (2 sources) Wedge compression fracture of second lumbar vertebra, initial encounter for closed fracture; Translations: [Wedge compression fracture of second lumbar vertebra, initial encounter for closed fracture] Onset: 4 Episodic Other fractures (2 sources) Wedge compression fracture of fourth lumbar vertebra, initial encounter for closed fracture; Translations: [Wedge compression fracture of fourth lumbar vertebra, initial encounter for closed fracture] Onset: 4 Episodic Other gastrointestinal disorders (1 source) Gastrointestinal symptom; Translations: [Gastrointestinal symptoms] Episodic Other gastrointestinal disorders (2 sources) Constipation; Translations: [Constipation, unspecified] Episodic Other gastrointestinal disorders (1 source) Constipation, unspecified; Translations: [Constipation, unspecified] Onset: 4 Episodic Other inflammatory condition of skin (1 source) Vasculitis of the skin; Translations: [Vasculitis limited to the skin, unspecified] Episodic Other liver diseases (20 sources) Cirrhosis of liver; Translations: [Unspecified cirrhosis of liver] Onset: 0 11-01-2020 Chronic Other liver diseases (20 sources) Chronic nonalcoholic liver disease; Translations: [Other specified diseases of liver] Onset: 6 11-07-2021 Chronic Other liver diseases (9 sources) Steatosis of liver; Translations: [Fatty (change of) liver, not elsewhere classified] Onset: 4 01-27-2024 Chronic Other liver diseases (1 source) Fatty (change of) liver, not elsewhere classified; Translations: [Fatty (change of) liver, not elsewhere classified] Onset: 4 Chronic Other liver diseases (3 sources) Unspecified cirrhosis of liver; Translations: [Unspecified cirrhosis of liver] Onset: 0 Chronic Other liver diseases (1 source) Hepatic encephalopathy; Translations: [Hepatic encephalopathy (HCC)] Episodic Other nervous system disorders (1 source) Acute postoperative pain; Translations: [Acute post-operative pain] Episodic Other non-traumatic joint disorders (1 source) Arthritis of joint of right shoulder region; Translations: [Arthritis of right shoulder region] Other nutritional; endocrine; and metabolic disorders (3 sources) Morbid obesity; Translations: [Morbid (severe) obesity due to excess calories] Onset: 4 02-26-2024 Chronic Other nutritional; endocrine; and metabolic disorders (20 sources) Body mass index 40+ - severely obese; Translations: [Morbid (severe) obesity due to excess calories] Onset: 1 11-01-2020 Chronic Other nutritional; endocrine; and metabolic disorders (11 sources) Severe obesity; Translations: [Morbid (severe) obesity due to excess calories] Chronic Other nutritional; endocrine; and metabolic disorders (20 sources) Obesity; Translations: [Obesity, unspecified] Onset: 6 11-07-2021 Chronic Other nutritional; endocrine; and metabolic disorders (2 sources) Morbid (severe) obesity due to excess calories; Translations: [Morbid (severe) obesity due to excess calories (Multi)] Onset: 4 Chronic Other skin disorders (2 sources) Localized swelling, mass and lump, upper limb; Translations: [Localized swelling, mass and lump, right upper limb] Episodic Other upper respiratory disease (1 source) Bronchospasm; Translations: [Bronchospasm] Episodic Pneumonia (except that caused by tuberculosis or sexually transmitted disease) (2 sources) Pneumonia (except that caused by tuberculosis or sexually transmitted disease); Translations: [Pneumonia due to coronavirus disease 2019] Onset: 2 Residual codes; unclassified (20 sources) Obstructive sleep apnea syndrome; Translations: [Obstructive sleep apnea (adult) (pediatric)] Onset: 1 11-01-2020 Chronic Residual codes; unclassified (6 sources) Obstructive sleep apnea (adult) (pediatric); Translations: [Obstructive sleep apnea (adult) (pediatric)] Onset: 2 Chronic Residual codes; unclassified (1 source) Pain; Translations: [Intractable pain] Episodic Residual codes; unclassified (1 source) Early satiety; Translations: [Early satiety] Episodic Skin and subcutaneous tissue infections (1 source) Cellulitis; Translations: [Cellulitis, unspecified cellulitis site] Episodic Spondylosis; intervertebral disc disorders; other back problems (20 sources) Degeneration of cervical intervertebral disc; Translations: [Other cervical disc degeneration, unspecified cervical region] Onset: 4 01-06-2006 Chronic Substance-related disorders (20 sources) Tobacco user; Translations: [Nicotine dependence, unspecified, uncomplicated] Onset: 6 01-06-2006 Chronic Unclassified (20 sources) Preprocedural examination done; Translations: [Preop examination] Onset: 1 11-03-2020 Unclassified (1 source) COVID-19; Translations: [COVID-19] Unclassified (7 sources) COVID-19 Bulk Enrollment Onset: 2 09-02-2022 Unclassified (1 source) [facility] Dispatch Clerk Review Required; Translations: [[facility] Dispatch Clerk Review Required] Onset: 3 Urinary tract infections (12 sources) Urinary tract infectious disease; Translations: [Urinary tract infection, site not specified] Onset: 2 Episodic Viral infection (2 sources) COVID-19; Translations: [COVID-19] Onset: 2 Past or Other Problems Problem Classification Problem Date Documented Da te Episodic/Chronic Abdominal hernia (20 sources) Hernia of anterior abdominal wall; Translations: [Ventral hernia without obstruction or gangrene] Onset: 01-04-2010 Resolved: 02-26-2024 09-30-2013 Episodic Abdominal pain (20 sources) Epigastric pain; Translations: [Stomach ache] Onset: 12-16-2010 10-24-2020 Episodic Complications of surgical procedures or medical care (20 sources) Complication of procedure; Translations: [Other complications of procedures, not elsewhere classified, initial encounter] Onset: 04-10-2011 11-08-2020 Episodic Diseases of mouth; excluding dental (20 sources) Aphthous ulcer of mouth; Translations: [Recurrent oral aphthae] Onset: 10-29-2006 Resolved: 02-26-2024 10-29-2006 Episodic E Codes: Adverse effects of medical drugs (20 sources) Antiviral drug adverse reaction; Translations: [Adverse effect of antiviral drugs, initial encounter] Onset: 02-18-2007 02-18-2007 Episodic Fluid and electrolyte disorders (20 sources) Hypokalemia; Translations: [Hypokalemia] Onset: 10-19-2021 10-19-2021 Episodic Gastritis and duodenitis (20 sources) Gastritis; Translations: [Gastritis, unspecified, without bleeding] Onset: 05-06-2010 05-06-2010 Episodic Gastrointestinal hemorrhage (20 sources) Rectal hemorrhage; Translations: [Hemorrhage of anus and rectum] Onset: 04-25-2022 Episodic Headache; including migraine (6 sources) Tension-type headache; Translations: [Tension-type headache, unspecified, not intractable] Onset: 05-23-2023 Resolved: 02-26-2024 05-23-2023 Chronic Headache; including migraine (5 sources) Acute headache; Translations: [Acute intractable headache] Onset: 10-19-2021 10-19-2021 Episodic Hepatitis (20 sources) Viral hepatitis C; Translations: [Unspecified viral hepatitis C without hepatic coma] Onset: 11-01-2020 11-01-2020 Episodic Hypertension with complications and secondary hypertension (15 sources) Hypertensive urgency ; Translations: [Hypertensive urgency] Onset: 01-28-2022 Resolved: 02-26-2024 Chronic Malaise and fatigue (20 sources) Malaise and fatigue; Translations: [Other malaise] Onset: 10-06-2006 10-06-2006 Episodic Nausea and vomiting (20 sources) Nausea and vomiting; Translations: [Nausea with vomiting, unspecified] Onset: 10-06-2006 10-06-2006 Episodic Nonspecific chest pain (20 sources) Chest pain; Translations: [Chest pain, unspecified] Onset: 06-23-2019 06-23-2019 Episodic Other aftercare (20 sources) Patient encounter status; Translations: [Other fci (current) drug therapy] Onset: 10-06-2006 10-06-2006 Episodic Other and unspecified benign neoplasm (20 sources) Neuroma; Translations: [Benign neoplasm of peripheral nerves and autonomic nervous system, unspecified] Onset: 12-16-2010 11-08-2020 Episodic Other and unspecified benign neoplasm (20 sources) Gastric polyp; Translations: [Polyp of stomach and duodenum] Onset: 05-03-2010 Resolved: 05-06-2010 05-06-2010 Episodic Other connective tissue disease (20 sources) Foot pain; Translations: [Pain in unspecified foot] Onset: 11-28-2020 11-28-2020 Episodic Other connective tissue disease (20 sources) Calcaneal spur of right foot; Translations: [Calcaneal spur, right foot] Onset: 11-03-2020 11-03-2020 Episodic Other connective tissue disease (20 sources) Neuropathy; Translations: [Neuralgia and neuritis, unspecified] Onset: 12-16-2010 11-08-2020 Episodic Other gastrointestinal disorders (20 sources) History of bariatric surgical procedure; Translations: [Bariatric surgery status] Onset: 10-24-2020 Resolved: 02-26-2024 10-24-2020 Episodic Other gastrointestinal disorders (19 sources) Alteration in bowel elimination; Translations: [Change in bowel habit] Onset: 04-25-2022 Episodic Other gastrointestinal disorders (20 sources) Esophageal dysphagia; Translations: [Other dysphagia] Onset: 04-25-2022 Episodic Other gastrointestinal disorders (8 sources) Altered bowel function; Translations: [Change in bowel habit] Onset: 04-25-2022 04-25-2022 Episodic Other infections; including parasitic (20 sources) Patient cured; Translations: [Personal history of other infectious and parasitic diseases] Onset: 07-22-2006 Resolved: 02-26-2024 04-18-2020 Episodic Other inflammatory condition of skin (2 sources) Vasculitis limited to the skin, unspecified; Translations: [Vasculitis limited to the skin, unspecified] Onset: 02-16-2023 Episodic Other liver diseases (20 sources) Elevated levels of transaminase & lactic acid dehydrogenase; Translations: [Nonspecific elevation of levels of transaminase or lactic acid dehydrogenase (LDH)] Onset: 01-06-2006 11-07-2021 Episodic Other lower respiratory disease (20 sources) Dyspnea on exertion; Translations: [Other forms of dyspnea] Onset: 06-23-2019 06-23-2019 Episodic Other non-traumatic joint disorders (2 sources) Pain in left knee; Translations: [Pain in left knee] Onset: 08-19-2023 Episodic Other screening for suspected conditions (not mental disorders or infectious disease) (10 sources) Blood chemistry abnormal; Translations: [Abnormal finding of blood chemistry, unspecified] Onset: 05-23-2023 Episodic Other skin disorders (20 sources) Disorder of skin and/or subcutaneous tissue; Translations: [Disorder of the skin and subcutaneous tissue, unspecified] Onset: 12-22-2006 12-22-2006 Episodic Residual codes; unclassified (20 sources) History of hernia repair; Translations: [Other specified postprocedural states] Onset: 07-16-2016 07-16-2016 Episodic Residual codes; unclassified (20 sources) Insomnia; Translations: [Insomnia, unspecified] Onset: 12-24-2006 12-24-2006 Episodic Respiratory failure; insufficiency; arrest (adult) (2 sources) Acute respiratory failure with hypoxia; Translations: [Acute respiratory failure with hypoxia] Onset: 10-21-2021 Episodic Spondylosis; intervertebral disc disorders; other back problems (3 sources) Sciatica; Translations: [Sciatica, left side] Onset: 02-16-2023 Episodic Substance-related disorders (20 sources) Drug-induced mood disorder; Translations: [Other psychoactive substance use, unspecified with psychoactive substance-induced mood disorder] Onset: 12-24-2006 01-04-2019 Episodic Unclassified (1 source) Onset: 02-26-2024 02-26-2024 Unclassified (1 source) [facility] Dispatch Clerk Review Required; Translations: [[facility] Dispatch Clerk Review Required] Onset: 08-10-2023 Viral infection (6 sources) COVID-19; Translations: [Pneumonia due to other virus not elsewhere classified] Onset: 10-19-2021 Resolved: 02-26-2024 10-19-2021 Episodic Results Test Name Value Interpretation Reference Range Facility AMMONIAon 06-24-2024 AMMONIA 26 micromol/L Normal [facility] Comment on above: Performed By: #### [id number] #### [facility] [address] [place], [place] [address] Ramakrishna Browne M.D. [id number] BASIC METABOLIC PANELon Anion gap [Moles/Vol] 16 mmol/L Normal - [facility] Comment on above: Order Comment: [facility] has implemented the eGFR calculation approach that does not have a coefficient for race that conforms to the NKF-ASN Task Force Recommendations. Performed By: #### [id number] #### [facility] [address] [place], [place] [address] Ramakrishna Browne M.D. [id number] Calcium [Mass/Vol] 9.0 mg/dL Normal 8.4-10.2 [facility] Comment on above: Order Comment: [facility] has implemented the eGFR calculation approach that does not have a coefficient for race that conforms to the NKF-ASN Task Force Recommendations. Performed By: #### [id number] #### LAB [address] [place], [place] [address] Ramakrishna Browne M.D. [id number] Chloride [Moles/Vol] 97 mmol/L Low 98-108 [facility] Comment on above: Order Comment: [facility] has implemented the eGFR calculation approach that does not have a coefficient for race that conforms to the NKF-ASN Task Force Recommendations. Performed By: #### [id number] #### LAB [address] [place] [address] Ramakrishna Browne M.D. [id number] Creatinine [Mass/Vol] 1.09 mg/dL Normal 0.60-1.10 [facility] Comment on above: Order Comment: [facility] has implemented the eGFR calculation approach that does not have a coefficient for race that conforms to the NKF-ASN Task Force Recommendations. Performed By: #### [id number] #### LAB [address] [place] [address] Ramakrishna Browne M.D. [id number] EGFR 57 mL/min/1.73 m2 Low >=60 [facility] Comment on above: Order Comment: [facility] has implemented the eGFR calculation approach that does not have a coefficient for race that conforms to the NKF-ASN Task Force Recommendations. Result Comment: Talisha mated GFR was calculated using the 2020 CKD-EPI creatinine equation. Performed By: #### [id number] #### LAB [address] [place] [address] Ramakrishna Browne M.D. [id number] Glucose [Mass/Vol] 106 mg/dL High 65-99 [facility] Comment on above: Order Comment: [facility] has implemented the eGFR calculation approach that does not have a coefficient for race that conforms to the NKF-ASN Task Force Recommendations. Performed By: #### [id number] #### LAB [address] [place] [address] Ramakrishna Browne M.D. [id number] HCO3 (Bld) [Moles/Vol] 28 mmol/L Normal 21-32 [facility] Comment on above: Order Comment: [facility] has implemented the eGFR calculation approach that does not have a coefficient for race that conforms to the NKF-ASN Task Force Recommendations. Performed By: #### [id number] #### LAB [address] [address] Ramakrishna Browne M.D. [id number] Potassium [Moles/Vol] 3.0 mmol/L Low 3.5-5.1 [facility] Comment on above: Order Comment: [facility] has implemented the eGFR calculation approach that does not have a coefficient for race that conforms to the NKF-ASN Task Force Recommendations. Performed By: #### [id number] #### LAB [address] [address] Ramakrishna Browne M.D. [id number] Sodium [Moles/Vol] 138 mmol/L Normal 135-145 [facility] Comment on above: Order Comment: [facility] has implemented the eGFR calculation approach that does not have a coefficient for race that conforms to the NKF-ASN Task Force Recommendations. Performed By: #### 4 [id number] #### LAB [address] [address] Ramakrishna Browne M.D. [id number] Urea nitrogen [Mass/Vol] 15 mg/dL Normal 8-25 [facility] Comment on above: Order Comment: [facility] has implemented the eGFR calculation approach that does not have a coefficient for race that conforms to the NKF-ASN Task Force Recommendations. Performed By: #### 4 [id number] #### LAB [address] [address] Ramakrishna Browne M.D. [id number] Urea nitrogen/Creatinine [Mass ratio] 13.8 mg/mg Normal 10.0-20.0 [facility] Comment on above: Order Comment: [facility] has implemented the eGFR calculation approach that does not have a coefficient for race that conforms to the NKF-ASN Task Force Recommendations. Performed By: #### [id number] #### LAB [address] [address] Ramakrishna Browne M.D. [id number] CBC WITH AUTO DIFFERENTIALon 06-24-2024 AUTO NRBC 0.0 % [facility] Comment on above: Performed By: #### L [id number] #### LAB [address] [address] Ramkarishna Browne M.D. [id number] AUTO NRBC ABS COUNT 0.00 K/mcL Normal 0.00-0.00 [facility] Comment on above: Performed By: #### L [id number] #### LAB [address] [address] Ramakrishna Browne M.D. [id number] BASOPHILS ABSOLUTE COUNT 0.02 K/mcL Normal 0.00-0.30 [facility] Comment on above: Performed By: #### L [id number] #### LAB [address] [address] Ramakrishna Browne M.D. [id number] Basophils/100 WBC (Bld) 0.4 % [facility] Comment on above: Performed By: #### L [id number] #### LAB [address] [address] Ramakrishna Browne M.D. [id number] Eosinophils (Bld) [#/Vol] 0.10 10*3/uL Normal 0.00-0.50 [facility] Comment on above: Performed By: #### L [id number] #### LAB [address] [address] Ramakrishna Browne M.D. [id number] Eosinophils/100 WBC (Bld) 2.1 % [facility] Comment on above: Performed By: #### L [id number] #### LAB [address] [place] [address] Ramakrishna Browne M.D. [id number] Erythrocyte distribution width (RBC) [Ratio] 16.1 % High 11.6-14.8 [facility] Comment on above: Performed By: #### L [id number] #### LAB [address] [address] Ramakrishna Browne M.D. [id number] Hematocrit (Bld) [Volume fraction] 39.9 % Normal 36.0-46.0 [facility] Comment on above: Performed By: #### L [id number] #### LAB [address] [address] Ramakrishna Browne M.D. [id number] Hemoglobin (Bld) [Mass/Vol] 14.0 g/dL Normal 12.0-16.0 [facility] Comment on above: Performed By: #### L [id number] #### LAB [address] [address] Ramakrishna Browne M.D. [id number] IG ABSOLUTE 0.02 K/mcL Normal 0.00-0.30 [facility] Comment on above: Performed By: #### L [id number] #### LAB [address] [place] [address] Ramakrishna Browne M.D. [id number] IG PERCENT 0.40 % [facility] Comment on above: Result Comment: The IG parameter is the percentage of metamyelocytes, myelocytes and promyelocytes. An immature granulocyte count (IG) of 1% or more suggests the possibility of infection, an IG count of 3% is very likely related to an infection. Performed By: #### L [id number] #### LAB [address] [address] Ramakrishna Browne M.D. [id number] Lymphocytes (Bld) [#/Vol] 0.95 10*3/uL Normal 0.90-4.00 [facility] Comment on above: Performed By: #### L [id number] #### LAB [address] [address] Ramakrishna Browne M.D. [id number] Lymphocytes/100 WBC (Bld) 20.1 % Normal [facility] Comment on above: Performed By: #### L [id number] #### LAB [address] [address] Ramakrishna Browne M.D. [id number] MCH (RBC) [Entitic mass] 32.2 pg Normal 26.0-34.0 [facility] Comment on above: Performed By: #### L [id number] #### LAB [address] [address] Ramakrishna Browne M.D. [id number] MCV (RBC) [Entitic vol] 91.7 fL Normal 80.0-100.0 [facility] Comment on above: Performed By: #### L [id number] #### LAB [address] [address] Ramakrishna Browne M.D. [id number] MEAN CORPUSCULAR HEMOGLOBIN CONC 35.1 g/dL Normal 31.0-37.0 [facility] Comment on above: Performed By: #### L [id number] #### LAB [address] [address] Ramakrishna Browne M.D. [id number] Monocytes (Bld) [#/Vol] 0.21 10*3/uL Low 0.30-0.90 [facility] Comment on above: Performed By: #### L [id number] #### LAB [address] [address] Ramakrishna Browne M.D. [id number] Monocytes/100 WBC (Bld) 4.4 % Normal [facility] Comment on above: Performed By: #### L [id number] #### LAB [address] [address] Ramakrishna Browne M.D. [id number] NEUTROPHILS ABSOLUTE COUNT 3.42 K/mcL Normal 1.70-7.00 [facility] Comment on above: Performed By: #### L [id number] #### LAB [address] [place] [address] Ramakrishna Browne M.D. [id number] Neutrophils/100 WBC (Bld) 72.6 % Normal [facility] Comment on above: Performed By: #### L [id number] #### LAB [address] [address] Ramakrishna Browne M.D. [id number] Platelet mean volume (Bld) [Entitic vol] 13.0 fL High 9.4-12.4 [facility] Comment on above: Performed By: #### L [id number] #### LAB [address] [address] Ramakrishna Browne M.D. [id number] Platelets (Bld) [#/Vol] 107 10*3/uL Low 150-400 [facility] Comment on above: Performed By: #### L [id number] #### LAB [address] [address] Ramakrishna Browne M.D. [id number] RBC (Bld) [#/Vol] 4.35 10*6/uL Normal 4.00-5.20 [facility] Comment on above: Performed By: #### L [id number] #### LAB [address] [address] Ramakrishna Browne M.D. [id number] WBC (Bld) [#/Vol] 4.72 10*3/uL Normal 4.50-11.00 [facility] Comment on above: Performed By: #### L [id number] #### LAB [address] [address] Ramakrishna Browne M.D. [id number] COVID-19/INFLUENZA A,B MOLEC ULARon 06-24-2024 SARS-CoV-2 (COVID-19) Ab IA Ql SARS-COV-2 (CRISTAL) Not Detected INFLUENZA A (CRISTAL) Not Detected INFLUENZA B (CRISTAL) Not Detected Normal Not Detected [facility] Comment on above: Performed By: #### L [id number] #### LAB [address] [address] Ramakrishna Browne M.D. [id number] CT CERVICAL SPINE WITHOUT CO NTRASTon 06-24-2024 CT CERVICAL SPINE WITHOUT CONTRAST EXAMINATION: CT HEAD OR BRAIN WITHOUT CONTRAST; CT CERVICAL SPINE WITHOUT CONTRAST; CT THORACIC AND LUMBAR SPINE WITHOUT CONTRAST HISTORY: ORDERING SYSTEM PROVIDED HISTORY: Dizziness, fall, TECHNOLOGIST PROVIDED HISTORY: Injury/Trauma Reason for exam: Patient states she became dizzy and fell Encounter Type: Initial Mechanism of injury: . ORDERING SYSTEM PROVIDED DIAGNOSIS CODES: COMPARISON: 12/28/2021, 05/22/2023 TECHNIQUE: CT examination of the head, cervical, thoracic, and lumbar spine was performed without IV contrast. Sagittal and coronal reformatted images were submitted for review. Dose reduction techniques were achieved by using automated exposure control and/or adjustment of mA and/or kV according to patient size and/or use of iterative reconstruction technique. FINDINGS: CT HEAD: CALVARIUM/SKULL BASE: No evidence of fracture or destructive lesion. Mastoids and middle ears grossly clear. PARANASAL SINUSES: Imaged portions clear. BRAIN: There is no acute intracranial hemorrhage. There is no mass effect. No midline shift. No hydrocephalus. No evidence of an acute large vascular territory cortical infarct. There is stable senescent change in cerebral volume loss with proportional widening of the cerebral sulci and ventricular system. Stable [id number]-[id number] background of nonspecific white matter disease. No hydrocephalus. There are dystrophic calcifications associated with the interhemispheric falx. There is a dural based calcification along the high left posterior frontal lobe which is unchanged from prior measuring up to 6.7 x 10.3 mm in the coronal plane, likely credit representative of a calcified meningioma. No abnormal extra-axial fluid collections. CT CERVICAL SPINE: The cervical spine is visualized from the occiput to the cervicothoracic junction. The patient is status post anterior cervical fusion and discectomy with hardware spanning the C4-C6 levels. The fusion construct is intact in appearance with no evidence of hardware fracture or hardware loosening. There appears to be osseous fusion across the operated segments. ALIGNMENT: There is straightening of the cervical lordosis. No significant listhesis or subluxation. No evidence of spondylolysis. CRANIOCERVICAL JUNCTION: No evidence of fracture or dislocation. VERTEBRAE: No acute fractures. Vertebral body heights maintained. SPINAL CANAL: No gross upper cervical canal hematoma. DEGENERATIVE CHANGES: There is moderate-advanced discogenic disease and degenerative facet and uncinate process spurring which is most conspicuous above and below the fusion construct at C3/C4 and C6/C7 contributing to moderate appearing canal bilateral foraminal stenosis. The incidentally imaged paraspinal soft tissues and soft tissue structures in the neck demonstrate no definite additional clearly acute or diagnostic abnormality otherwise. CT THORACIC SPINE: For the purposes of this examination, there appear to be 12 thoracic morphology rib-bearing vertebral segments. There is a mild dextroconvex scoliosis centered around the T6 level with scoliosis is made it approximately 9 degrees. No evidence of spondylolysis. No significant listhesis or subluxation. The bones appear to be diffusely demineralized There is a chronic appearing superior endplate compression deformity at the T6 level with anterior wedging and tiny superimposed superior endplate Schmorl's node. This results in approximately 30% loss of vertebral body height. No bony retropulsion. This fracture was present on a prior CT scan of the chest from 10/08/2021. In addition, there is a chronic appearing inferior endplate deformity and superimposed Schmorl's node identified at the T11 level with less than 10% loss of vertebral body height. This is also unchanged from the prior. No clearly acute thoracic spine fracture is identified. Posterior elements appear to be intact. There is no canal hematoma. No significant canal stenosis. There is overall mild multilevel discogenic and degenerative joint disease in the thoracic spine for age. The incidentally imaged paraspinal soft tissues and soft tissue structures in the posterior aspect chest and in the spine reveal no additional clearly acute or diagnostic abnormality otherwise. CT LUMBAR SPINE: The purposes of this examination, there appear to be 5 lumbar morphology vertebral segments. The last fully formed disc space is termed L5/S1. There is an interbody fusion device identified at the L4/L5 level. When compared to the prior CT scan of the abdomen and pelvis from 12/19/2023, the interbody device is not significantly changed in position. Of note, the device is situated within the left lateral aspect of the disc space and appears to protrude past the margin of the endplate laterally by approximately 6 mm. This is stable. There is incomplete osseous fusion across the disc space at this level. Align (more content not included)... Normal [facility] Comment on above: Order Comment: Injur y/Trauma or Illness?:Injury/Trauma How long have you had these symptoms (acute/chronic)?:Acute Reason for exam?:Patient states she got dizzy and fell Type of Exam?:Initial Mechanism of injury?:. CT HEAD OR BRAIN WITHOUT CON TRASTon 06-24-2024 CT HEAD OR BRAIN WITHOUT CONTRAST EXAMINATION: CT HEAD OR BRAIN WITHOUT CONTRAST; CT CERVICAL SPINE WITHOUT CONTRAST; CT THORACIC AND LUMBAR SPINE WITHOUT CONTRAST HISTORY: ORDERING SYSTEM PROVIDED HISTORY: Dizziness, fall, TECHNOLOGIST PROVIDED HISTORY: Injury/Trauma Reason for exam: Patient states she became dizzy and fell Encounter Type: Initial Mechanism of injury: . ORDERING SYSTEM PROVIDED DIAGNOSIS CODES: COMPARISON: 12/28/2021, 05/22/2023 TECHNIQUE: CT examination of the head, cervical, thoracic, and lumbar spine was performed without IV contrast. Sagittal and coronal reformatted images were submitted for review. Dose reduction techniques were achieved by using automated exposure control and/or adjustment of mA and/or kV according to patient size and/or use of iterative reconstruction technique. FINDINGS: CT HEAD: CALVARIUM/SKULL BASE: No evidence of fracture or destructive lesion. Mastoids and middle ears grossly clear. PARANASAL SINUSES: Imaged portions clear. BRAIN: There is no acute intracranial hemorrhage. There is no mass effect. No midline shift. No hydrocephalus. No evidence of an acute large vascular territory cortical infarct. There is stable senescent change in cerebral volume loss with proportional widening of the cerebral sulci and ventricular system. Stable uyli-ud-lrvpopvr background of nonspecific white matter disease. No hydrocephalus. There are dystrophic calcifications associated with the interhemispheric falx. There is a dural based calcification along the high left posterior frontal lobe which is unchanged from prior measuring up to 6.7 x 10.3 mm in the coronal plane, likely credit representative of a calcified meningioma. No abnormal extra-axial fluid collections. CT CERVICAL SPINE: The cervical spine is visualized from the occiput to the cervicothoracic junction. The patient is status post anterior cervical fusion and discectomy with hardware spanning the C4-C6 levels. The fusion construct is intact in appearance with no evidence of hardware fracture or hardware loosening. There appears to be osseous fusion across the operated segments. ALIGNMENT: There is straightening of the cervical lordosis. No significant listhesis or subluxation. No evidence of spondylolysis. CRANIOCERVICAL JUNCTION: No evidence of fracture or dislocation. VERTEBRAE: No acute fractures. Vertebral body heights maintained. SPINAL CANAL: No gross upper cervical canal hematoma. DEGENERATIVE CHANGES: There is moderate-advanced discogenic disease and degenerative facet and uncinate process spurring which is most conspicuous above and below the fusion construct at C3/C4 and C6/C7 contributing to moderate appearing canal bilateral foraminal stenosis. The incidentally imaged paraspinal soft tissues and soft tissue structures in the neck demonstrate no definite additional clearly acute or diagnostic abnormality otherwise. CT THORACIC SPINE: For the purposes of this examination, there appear to be 12 thoracic morphology rib-bearing vertebral segments. There is a mild dextroconvex scoliosis centered around the T6 level with scoliosis is made it approximately 9 degrees. No evidence of spondylolysis. No significant listhesis or subluxation. The bones appear to be diffusely demineralized There is a chronic appearing superior endplate compression deformity at the T6 level with anterior wedging and tiny superimposed superior endplate Schmorl's node. This results in approximately 30% loss of vertebral body height. No bony retropulsion. This fracture was present on a prior CT scan of the chest from 10/08/2021. In addition, there is a chronic appearing inferior endplate deformity and superimposed Schmorl's node identified at the T11 level with less than 10% loss of vertebral body height. This is also unchanged from the prior. No clearly acute thoracic spine fracture is identified. Posterior elements appear to be intact. There is no canal hematoma. No significant canal stenosis. There is overall mild multilevel discogenic and degenerative joint disease in the thoracic spine for age. The incidentally imaged paraspinal soft tissues and soft tissue structures in the posterior aspect chest and in the spine reveal no additional clearly acute or diagnostic abnormality otherwise. CT LUMBAR SPINE: The purposes of this examination, there appear to be 5 lumbar morphology vertebral segments. The last fully formed disc space is termed L5/S1. There is an interbody fusion device identified at the L4/L5 level. When compared to the prior CT scan of the abdomen and pelvis from 12/19/2023, the interbody device is not significantly changed in position. Of note, the device is situated within the left lateral aspect of the disc space and appears to protrude past the margin of the endplate laterally by approximately 6 mm. This is stable. There is incomplete osseous fusion across the disc space at this level. Align (more content not included)... Normal [facility] Comment on above: Order Comment: Injur y/Trauma or Illness?:Injury/Trauma How long have you had these symptoms (acute/chronic)?:Acute Reason for exam?:Patient states she became dizzy and fell Type of Exam?:Initial Mechanism of injury?:. ED Prov Noteon 06-24-2024 ED Prov Note [facility] ED Attending Note: NAME: Micheline Fox 64 y.o. CSN: [id number] PCP: Leticia Sylvester MD History: Chief Complaint: Fall HPI: The history was obtained from the patient. Micheline is a 64 y.o. female who presents with a chief complaint of Fall. Patient is a 64-year-old female with a history of hypertension, hepatitis and cirrhosis, history of mental health issues, who presents from home after feeling dizzy and falling. She denies any loss of consciousness and was able to ambulate for this EMS squad. On arrival patient claims back pain, and hip pain. She denies any fever or chills. She denies any recent illness. She denies any chest pain. PMHx: Past Medical History: Diagnosis Date Arthritis Asthma Cirrhosis (HCC) Hepatitis C History of cardiac cath 07/01/2019 Hypertension PONV (postoperative nausea and vomiting) most recent Sleep apnea, obstructive Does not use machine PMSx: Past Surgical History: Procedure Laterality Date BACK SURGERY 1999 Hardware L4-5 CARDIAC CATHETERIZATION 04/2015 CHOLECYSTECTOMY COLONOSCOPY N/A 07/29/2019 Procedure: COLONOSCOPY; Surgeon: Joe Colón MD; Location: [facility]; Service: Gastroenterology EGD N/A 07/29/2019 Procedure: ESOPHAGOGASTRODUODENO SCOPY; Surgeon: Joe Colón MD; Location: [facility]; Service: Gastroenterology ESOPHAGOGASTRODUODENO SCOPY 11/13/2020 Isael Reis GASTRIC BYPASS 1996 LEFT HEART CATH N/A 07/08/2019 Procedure: Left Heart Cath; Surgeon: Hari Acosta MD; Location: [facility]; Service: Cardiovascular HEEL SPUR RESECTION Right 11/14/2020 Procedure: EXCISION HEEL SPUR RIGHT FOOT C-ARM; Surgeon: Digna Enriquez DPM; Location: Main OR; Service: Podiatry HERNIA REPAIR 07/16/2016 Jake Hurtado-REJI HYSTERECTOMY 1988 NECK SURGERY 1999 C 4-5 TONSILLECTOMY FAM. Hx: Family History Problem Relation Age of Onset Stroke Mother TIA-04/29/2016 Melanoma Father Heart attack Father Heart disease Father Hypertension Father Dementia Father Heart failure Father Hypertension Brother No Known Problems Brother Heart disease Maternal Grandmother Heart disease Maternal Grandfather SOC. Hx: Social History Socioeconomic History Marital status: Tobacco Use Smoking status: Former Current packs/day: 0.00 Types: Cigarettes Quit date: 2019 Years since quittin.7 Smokeless tobacco: Never Tobacco comments: quit 4 years ago Vaping Use Vaping status: Never Used Substance and Sexual Activity Alcohol use: Yes Alcohol/week: 5.0 standard drinks of alcohol Types: 5 Cans of beer per week Comment: LAST DRINK WAS 192904/30/23 [employer] Drug use: Never Social Determinants of Health Financial Resource Strain: High Risk (08/06/2022) Received from [facility] Overall Financial Resource Strain (CARDIA) Difficulty of Paying Living Expenses: Hard Food Insecurity: Food Insecurity Present (08/06/2022) Received from [facility] Hunger Vital Sign Worried About Running Out of Food in the Last Year: Sometimes true Ran Out of Food in the Last Year: Sometimes true Transportation Needs: Unmet Transportation Needs (01/28/2024) Received from [employer] [facility] - Transportation Lack of Transportation (Medical): Yes Lack of Transportation (Non-Medical): Yes Physical Activity: Inactive (08/06/2022) Received from [facility] Exercise Vital Sign Days of Exercise per Week: 0 days Minutes of Exercise per Session: 0 min Stress: Stress Concern Present (08/06/2022) Received from [facility] [place] [facility] - Occupational Stress Questionnaire Feeling of Stress : Very much Social Connections: Moderately Isolated (08/06/2022) Received from [facility] Social Connection and Isolation Panel [NHANES] Frequency of Communication with Friends and Family: Twice a week Frequency of Social Gatherings with Friends and Family: Once a week Attends Holiness Services: Never Active Member of Clubs or Organizations: No Attends Club or Organization Meetings: 1 to 4 times per year Marital Status: Housing Stability: Low Risk (08/06/2022) Received from [facility] Housing Stability Vital Sign Unable to Pay for Housing in the Last Year: No Number of Places Lived in the Last Year: 1 Unstable Housing in the Last Year: No MEDs: Previous Medications Medication Sig albuterol 90 mcg/actuation inhaler Inhale 2 (two) puffs every 6 (six) hours as needed for wheezing . ALPRAZolam (XANAX) 0.5 MG tablet Take 1 (one) tablet (0.5 mg total) by mouth 2 (two) times a day as needed for anxiety (Days supply per fill: 30) . (Patient not taking: Reported on 07/28/2023 .) atorvastatin (LIPITOR) 40 MG tablet Take 1 (one) tablet (40 mg total) by mouth daily with dinner . brexpiprazole (Rexulti) 2 mg table (more content not included)... Normal [facility] HEPATIC FUNCTION PANELon Albumin [Mass/Vol] 4.0 g/dL Normal 3.2-5.2 [facility] Comment on above: Performed By: #### [id number] #### LAB [address] [address] Ramakrishna Browne M.D. [id number] ALP [Catalytic activity/Vol] 79 U/L Normal 40-150 [facility] Comment on above: Performed By: #### 4 [id number] #### LAB [address] [address] Ramakrishna Browne M.D. [id number] ALT [Catalytic activity/Vol] 32 U/L Normal 0-35 U/L [facility] Comment on above: Performed By: #### 4 [id number] #### LAB [address] [address] Ramakrishna Browne M.D. [id number] AST [Catalytic activity/Vol] 46 U/L High 0-35 U/L [facility] Comment on above: Performed By: #### 4 [id number] #### LAB [address] [id number] Ramakrishna Browne M.D. [id number] Bilirubin [Mass/Vol] 1.4 mg/dL High 0.0-1.3 [facility] Comment on above: Performed By: #### 4 [id number] #### LAB [address] [address] Ramakrishna Browne M.D. [id number] Bilirubin.indirect [Mass/Vol] 0.5 mg/dL High 0.0-0.4 [facility] Comment on above: Performed By: #### 4 [id number] #### LAB [address] [address] Ramakrishna Browne M.D. [id number] Protein [Mass/Vol] 6.1 g/dL Normal 6.0-8.0 [facility] Comment on above: Performed By: #### 4 [id number] #### LAB [address] [address] Ramakrishna Browne M.D. [id number] URINALYSISon 06-24-2024 BACTERIA, URINE None Seen Normal None Seen [facility] Comment on above: Order Comment: Micro scopic examination is performed on all urinalysis samples and only positive findings are reported. The test for blood on the chemical analytic portion of urinalysis may also be positive due to hemoglobinuria and myoglobinuria and if red blood cells are present they are quantified by microscopic examination. Performed By: #### 4 [id number] #### LAB [address] [address] Ramakrishna Browne M.D. [id number] BILIRUBIN, URINE Positive Abnormal Negative [facility] Comment on above: Order Comment: Micro scopic examination is performed on all urinalysis samples and only positive findings are reported. The test for blood on the chemical analytic portion of urinalysis may also be positive due to hemoglobinuria and myoglobinuria and if red blood cells are present they are quantified by microscopic examination. Result Comment: Fals e positive urine bilirubins can occur in the setting of a large amount of hemoglobin and secondary to medications including anti-inflammatory agents, rifampin, and pyridium. Performed By: #### 4 6625 #### LAB [address] [address] Ramakrishna Browne M.D. [id number] BLOOD, URINE Negative Normal Negative [facility] Comment on above: Order Comment: Micro scopic examination is performed on all urinalysis samples and only positive findings are reported. The test for blood on the chemical analytic portion of urinalysis may also be positive due to hemoglobinuria and myoglobinuria and if red blood cells are present they are quantified by microscopic examination. Performed By: #### 4 6625 #### LAB [address] [id number] Ramakrishna Browne M.D. [id number] Clarity (U) Clear Normal Clear [facility] Comment on above: Order Comment: Micro scopic examination is performed on all urinalysis samples and only positive findings are reported. The test for blood on the chemical analytic portion of urinalysis may also be positive due to hemoglobinuria and myoglobinuria and if red blood cells are present they are quantified by microscopic examination. Performed By: #### 4 6625 #### LAB [address] [id number] Ramakrishna Browne M.D. [id number] Color (U) Gloria Abnormal Colorless, Yellow [facility] Comment on above: Order Comment: Micro scopic examination is performed on all urinalysis samples and only positive findings are reported. The test for blood on the chemical analytic portion of urinalysis may also be positive due to hemoglobinuria and myoglobinuria and if red blood cells are present they are quantified by microscopic examination. Performed By: #### 4 6625 #### LAB [address] [address] Ramakrishna Browne M.D. [id number] Glucose Ql (U) Negative Normal Negative [facility] Comment on above: Order Comment: Micro scopic examination is performed on all urinalysis samples and only positive findings are reported. The test for blood on the chemical analytic portion of urinalysis may also be positive due to hemoglobinuria and myoglobinuria and if red blood cells are present they are quantified by microscopic examination. Performed By: #### 4 6625 #### LAB [address] [place], [place] [address] Ramakrishna Browne M.D. [id number] Hyaline casts LM Ql (Urine sed) 3-5 Abnormal 0-2 [facility] Comment on above: Order Comment: Micro scopic examination is performed on all urinalysis samples and only positive findings are reported. The test for blood on the chemical analytic portion of urinalysis may also be positive due to hemoglobinuria and myoglobinuria and if red blood cells are present they are quantified by microscopic examination. Performed By: #### 4 6625 #### LAB [address] [address] Ramakrishna Browne M.D. [id number] Ketones Ql (U) Negative Normal Negative [facility] Comment on above: Order Comment: Micro scopic examination is performed on all urinalysis samples and only positive findings are reported. The test for blood on the chemical analytic portion of urinalysis may also be positive due to hemoglobinuria and myoglobinuria and if red blood cells are present they are quantified by microscopic examination. Performed By: #### 4 6625 #### LAB [address] [address] Ramakrishna Browne M.D. [id number] Leukocyte esterase Test strip Ql (U) Small Abnormal Negative [facility] Comment on above: Order Comment: Micro scopic examination is performed on all urinalysis samples and only positive findings are reported. The test for blood on the chemical analytic portion of urinalysis may also be positive due to hemoglobinuria and myoglobinuria and if red blood cells are present they are quantified by microscopic examination. Performed By: #### 4 6625 #### LAB [address] [id number] Ramakrishna Browne M.D. [id number] NITRITE, URINE Positive Abnormal Negative [facility] Comment on above: Order Comment: Micro scopic examination is performed on all urinalysis samples and only positive findings are reported. The test for blood on the chemical analytic portion of urinalysis may also be positive due to hemoglobinuria and myoglobinuria and if red blood cells are present they are quantified by microscopic examination. Performed By: #### 4 6625 #### LAB [address] [id number] Ramakrishna Browne M.D. [id number] pH (U) 7.0 [pH] Normal 5.0-7.0 [facility] Comment on above: Order Comment: Micro scopic examination is performed on all urinalysis samples and only positive findings are reported. The test for blood on the chemical analytic portion of urinalysis may also be positive due to hemoglobinuria and myoglobinuria and if red blood cells are present they are quantified by microscopic examination. Performed By: #### 4 6625 #### LAB [address] [address] Ramakrishna Browne M.D. [id number] PROTEIN, URINE Negative Normal Negative [facility] Comment on above: Order Comment: Micro scopic examination is performed on all urinalysis samples and only positive findings are reported. The test for blood on the chemical analytic portion of urinalysis may also be positive due to hemoglobinuria and myoglobinuria and if red blood cells are present they are quantified by microscopic examination. Performed By: #### 4 6625 #### LAB [address] [address] Ramakrishna Browne M.D. [id number] RBC LM.HPF (Urine sed) [#/Area] 2 /[HPF] Normal 0-3 [facility] Comment on above: Order Comment: Micro scopic examination is performed on all urinalysis samples and only positive findings are reported. The test for blood on the chemical analytic portion of urinalysis may also be positive due to hemoglobinuria and myoglobinuria and if red blood cells are present they are quantified by microscopic examination. Performed By: #### 4 6625 #### LAB [address] [address] Ramakrishna Browne M.D. [id number] Specific gravity (U) [Rel density] 1.023 Normal 1.005-1.025 [facility] Comment on above: Order Comment: Micro scopic examination is performed on all urinalysis samples and only positive findings are reported. The test for blood on the chemical analytic portion of urinalysis may also be positive due to hemoglobinuria and myoglobinuria and if red blood cells are present they are quantified by microscopic examination. Performed By: #### 4 6625 #### LAB [address] [address] Ramakrishna Browne M.D. [id number] SQUAMOUS EPITHELIAL 5 /hpf High 0-4 [facility] Comment on above: Order Comment: Micro scopic examination is performed on all urinalysis samples and only positive findings are reported. The test for blood on the chemical analytic portion of urinalysis may also be positive due to hemoglobinuria and myoglobinuria and if red blood cells are present they are quantified by microscopic examination. Performed By: #### 4 6625 #### LAB [address] [address] Ramakrishna Browne M.D. [id number] UROBILINOGEN, URINE >=4.0 Abnormal <2.0 [facility] Comment on above: Order Comment: Micro scopic examination is performed on all urinalysis samples and only positive findings are reported. The test for blood on the chemical analytic portion of urinalysis may also be positive due to hemoglobinuria and myoglobinuria and if red blood cells are present they are quantified by microscopic examination. Performed By: #### 4 6625 #### LAB [address] [address] Ramakrishna Browne M.D. [id number] WBC LM.HPF (Urine sed) [#/Area] 17 /[HPF] High 0-5 [facility] Comment on above: Order Comment: Micro scopic examination is performed on all urinalysis samples and only positive findings are reported. The test for blood on the chemical analytic portion of urinalysis may also be positive due to hemoglobinuria and myoglobinuria and if red blood cells are present they are quantified by microscopic examination. Performed By: #### 4 6625 #### LAB [address] [address] Ramakrishna Browne M.D. [id number] URINE AEROBIC CULTUREon URINE AEROBIC CULTURE URINE CULTURE > 10,000 CFU/mL mixture of normal urogenital microbiota Normal [facility] Comment on above: Performed By: #### L [id number] #### [facility] [address] [address] Ramakrishna Browne M.D. [id number] XR HIPS BILATERAL WITH PELVI S 5+ VIEWSon 06-24-2024 XR HIPS BILATERAL WITH PELVIS 5+ VIEWS EXAMINATION: XR HIPS BILATERAL WITH PELVIS 5+ VIEWS HISTORY: ORDERING SYSTEM PROVIDED HISTORY: Fall, hip pain, TECHNOLOGIST PROVIDED HISTORY: Injury/Trauma Reason for exam: bilateral hip pain from fall Cancer History: unknown Surgery, RadiationHistory: unknown Encounter Type: Initial Mechanism of injury: fall ORDERING SYSTEM PROVIDED DIAGNOSIS CODES: COMPARISON: None. FINDINGS: Frontal view of the pelvis. 2 views of each hip. No acute fracture or traumatic malalignment. Mild symmetric hip joint space narrowing. Prior interbody fusion at L4-L5. Surgical clips project over the left hemipelvis. IMPRESSION: No acute fracture or traumatic malalignment. [employer] Workstation ID: [id number] Dictated by: JIMMIE HELTON on ThuJun 24, 2024 11:34:47 AM EDT Transcribed by: NIDA HARRY on ThuJun 24, 2024 12:10:34 PM EDT Finalized by: JIMMIE HELTON on ThuJun 24, 2024 9:49:50 PM EDT Normal [facility] Comment on above: Order Comment: Injur y/Trauma or Illness?:Injury/TraumaHow long have you had these symptoms (acute/chronic)?:AcuteReason for exam?:bilateral hip pain from fallHistory of cancer?:unknownSurgeries, chemotherapy, or radiation?:unknownType of Exam?:InitialMechanism of injury?:fall Basic metabolic 2000 panelon 02-26-2024 Anion gap [Moles/Vol] 11 mmol/L Normal 10-20 [facility] Comment on above: Performed By: #### 2 4321-2 #### KIMO JIMENEZ ([id number]) [facility] ([facility]) [address] [place] [address] Calcium [Mass/Vol] 8.8 mg/dL Normal 8.6-10.3 [facility] Comment on above: Performed By: #### 2 4321-2 #### KIMO JIMENEZ ([id number]) [facility] ([facility]) [address] [place] [address] Chloride [Moles/Vol] 104 mmol/L Normal 98-107 [facility] Comment on above: Performed By: #### 2 4321-2 #### KIMO JIMENEZ ([id number]) [facility] ([facility]) [address] [place] [address] CO2 [Moles/Vol] 29 mmol/L Normal 21-[address] [facility] Comment on above: Performed By: #### 2 4321-2 #### KIMO JIMENEZ ([id number]) [facility] ([facility]) [address] [place] [address] Creatinine [Mass/Vol] 1.01 mg/dL Normal 0.50-1.05 [facility] Comment on above: Performed By: #### 2 4321-2 #### KIMO JIMENEZ ([id number]) [facility] ([facility]) [address] [place] [address] Glomerular filtration rate/1.73 sq M.predicted 63 mL/min/1.73m*2 Normal >60 [facility] Comment on above: Result Comment: Calc ulations of estimated GFR are performed using the 2020 CKD-EPI Study Refit equation without the race variable for the IDMS-Traceable creatinine methods. https://jasn.asnjournals.org/content//ASN.141927 0406 Performed By: #### 2 4321-2 #### KIMO JIMENEZ ([id number]) [facility] ([facility]) [address] [place] [address] Glucose [Mass/Vol] 120 mg/dL High 74-99 [facility] Comment on above: Performed By: #### 2 4321-2 #### KIMO JIMENEZ ([id number]) [facility] ([facility]) [address] [place] [address] Potassium [Moles/Vol] 3.8 mmol/L Normal 3.5-5.3 [facility] Comment on above: Performed By: #### 2 4321-2 #### KIMO JIMEENZ ([id number]) [facility] ([facility]) [address] [place] [address] Sodium [Moles/Vol] 140 mmol/L Normal 136-145 [facility] Comment on above: Performed By: #### 2 4321-2 #### KIMO JIMENEZ ([id number]) [facility] ([facility]) [address] [place] [address] Urea nitrogen [Mass/Vol] 14 mg/dL Normal 6-23 [facility] Comment on above: Performed By: #### 2 4321-2 #### KIMO JIMENEZ ([id number]) [facility] ([facility]) [address] [place] [address] Calcidiolon 02-26-2024 25-hydroxyvitamin D3 [Mass/Vol] 23 ng/mL Low 30-100 [facility] Comment on above: Order Comment: Defic iency: < 20 ng/ml Insufficiency: 20-29 ng/ml Sufficiency: 30-100 ng/ml This assay accurately quantifies the sum of Vitamin D3, 25-Hydroxy and Vitamin D2,25-Hydroxy. Performed By: #### 1 989-3 #### KIMO JIMENEZ ([id number]) [facility] ([facility]) [address] [place] [address] HbA1c (Bld) [Mass fraction]o n 02-26-2024 Average glucose Estimated from glycated hemoglobin (Bld) [Mass/Vol] 77 mg/dL Normal Not Established [facility] Comment on above: Order Comment: Diagn osis of Diabetes-Adults Non-Diabetic: < or = 5.6% Increased risk for developing diabetes: 5.7-6.4% Diagnostic of diabetes: > or = 6.5% Monitoring of Diabetes Age (y)....................... Therapeutic Goal (%) Adults: >18.........................<7.0 Pediatrics: 13-18...................<7.5 Pediatrics: 7-12....................<8.0 Pediatrics: 0-6..................... 7.5-8.5 [place] [employer]. Diabetes Care 33(S1), Sep 2009 Performed By: #### 4 548-4 #### KIMO JIMENEZ ([id number]) [facility] ([facility]) [address] [id number] Hemoglobin A1c/Hemoglobin.to jane 02-26-2024 HbA1c (Bld) [Mass fraction] 4.3 % Normal see below [facility] Comment on above: Order Comment: Diagn osis of Diabetes-Adults Non-Diabetic: < or = 5.6% Increased risk for developing diabetes: 5.7-6.4% Diagnostic of diabetes: > or = 6.5% Monitoring of Diabetes Age (y)....................... Therapeutic Goal (%) Adults: >18.........................<7.0 Pediatrics: 13-18...................<7.5 Pediatrics: 7-12....................<8.0 Pediatrics: 0-6..................... 7.5-8.5 [place] [employer]. Diabetes Care 33(S1), Sep 2009 Performed By: #### 4 548-4 #### MALIN TONY ([id number]) [facility] ([facility]) [facility] [place] [address] LIVER ELASTOGRAPHYon 024 Jaime Carter APRN-CNP 02/19/2024 2:34 PM Velocity Controlled Transient Elastography (Fibroscan) National Coverage Specialist: Nikhil Lawson Attending: Jaime Carter APRN-CNP Patient was identified via name and . Micheline FOX presents to endoscopy suite for VCTE. Referring Provider: HEATHER Johnson Diagnosis: Hepatic cirrhosis, unspecified hepatic cirrhosis type (HCC) (Primary Diagnosis) [[id number]] Fatty liver Two Pt identifiers where confirmed. Pt procedure and orders verified verbal consent obtained. Probe used: XL Pre-procedure Checklist Presence of ascites? No Fasting for at least three hours? Yes Alcohol use? No History of right heart failure? No LFT's (last 3 years, up to 5 values) T Prot Albumin D Bili T Bili Alk Phos ALT AST 01/27/24 1505 6.8 4.4 0.23 1.0 59 38 31 04/23/22 1248 6.4 4.6 0.20 1.0 68 35 29 ] Platelet Date Value Ref Range Status 01/27/2024 177 150 - 400 K/uL Final 04/23/2022 137 (L) 150 - 400 K/uL Final 09/17/2011 93 (L) 150 - 400 K/uL Final 04/30/2011 103 (L) 150 - 400 K/uL Final Findings: Elastography Median kPa: 16.1 IQR/med (%): 18 Controlled Attenuation Parameter (CAP) Median (dB/m): 202 IQR : 28 Interpretation: Based on LSM of 16.1 KPa, the patient has evidence of cirrhosis (F4) with Grade 0 steatosis. If F3 or F4 fibrosis, please formally refer patient to hepatology. Interpreting Provider: Jaime Carter APRN-CNP [facility] Procedureson 02-19-2024 [employer] Authentication Interface Message Text Velocity Controlled Transient Elastography (Fibroscan) National Coverage Specialist: Nikhil Lawson Attending: Jaime Carter APRN-CNP Patient was identified via name and . Micheline FOX presents to endoscopy suite for VCTE. Referring Provider: HEATHER Johnson Diagnosis: Hepatic cirrhosis, unspecified hepatic cirrhosis type (HCC) (Primary Diagnosis) [[id number]] Fatty liver Two Pt identifiers where confirmed. Pt procedure and orders verified verbal consent obtained. Probe used: XL Pre-procedure Checklist Presence of ascites? No Fasting for at least three hours? Yes Alcohol use? No History of right heart failure? No LFT's (last 3 years, up to 5 values) T Prot Albumin D Bili T Bili Alk Phos ALT AST 01/27/24 1505 6.8 4.4 0.23 1.0 59 38 31 04/23/22 1248 6.4 4.6 0.20 1.0 68 35 29 ] Platelet Date Value Ref Range Status 01/27/2024 177 150 - 400 K/uL Final 04/23/2022 137 (L) 150 - 400 K/uL Final 09/17/2011 93 (L) 150 - 400 K/uL Final 04/30/2011 103 (L) 150 - 400 K/uL Final Findings: Elastography Median kPa: 16.1 IQR/med (%): 18 Controlled Attenuation Parameter (CAP) Median (dB/m): 202 IQR : 28 Interpretation: Based on LSM of 16.1 KPa, the patient has evidence of cirrhosis (F4) with Grade 0 steatosis. If F3 or F4 fibrosis, please formally refer patient to hepatology. Interpreting Provider: Jaime Carter APRN-CNP Invalid Interpretation Code [employer] US Abdomen RUQon 02-19-2024 EXAMINATION: US LIVER/GALL BLADDER/PANCREAS 02/19/2024 11:15 AM CLINICAL HISTORY: HCC screen ASSOCIATED DIAGNOSIS: Hepatic cirrhosis, unspecified hepatic cirrhosis type, unspecified whether ascites present (HCC) ORDERING PROVIDER: JAIME CARTER COMPARISON: CT ABDOMEN/PELVIS W/ CONTRAST 2022, 4:15 PM US LIVER/GALL BLADDER/PANCREAS 04/27/2020, 1:41 PM TECHNIQUE: Ultrasound real time scan with image documentation of the right upper quadrant including the liver, gallbladder, and pancreas was performed. FINDINGS: Liver Craniocaudal length: 14.3 cm. Echogenicity: The liver has coarsened echotexture. Surface nodularity: Mildly nodular. Mass (size and location): None. Bile ducts Intrahepatic ducts: No biliary dilatation. Common bile duct: Normal caliber. Diameter 4 mm. Gallbladder Size and morphology: Status post cholecystectomy. Pancreas The pancreatic head and body are unremarkable. Visualization of the tail is limited. Other findings None. IMPRESSION: Cirrhotic liver without a focal suspicious hepatic lesion. MACRO: None RADIOLOGY Ramakrishna Kelly MD - 02/19/2024 EXAMINATION: US LIVER/GALL BLADDER/PANCREAS 02/19/2024 11:15 AM CLINICAL HISTORY: HCC screen ASSOCIATED DIAGNOSIS: Hepatic cirrhosis, unspecified hepatic cirrhosis type, unspecified whether ascites present (HCC) ORDERING PROVIDER: JAIME CARTER COMPARISON: CT ABDOMEN/PELVIS W/ CONTRAST 2022, 4:15 PM US LIVER/GALL BLADDER/PANCREAS 04/27/2020, 1:41 PM TECHNIQUE: Ultrasound real time scan with image documentation of the right upper quadrant including the liver, gallbladder, and pancreas was performed. FINDINGS: Liver Craniocaudal length: 14.3 cm. Echogenicity: The liver has coarsened echotexture. Surface nodularity: Mildly nodular. Mass (size and location): None. Bile ducts Intrahepatic ducts: No biliary dilatation. Common bile duct: Normal caliber. Diameter 4 mm. Gallbladder Size and morphology: Status post cholecystectomy. Pancreas The pancreatic head and body are unremarkable. Visualization of the tail is limited. Other findings None. IMPRESSION: Cirrhotic liver without a focal suspicious hepatic lesion. MACRO: None [employer] Rad[facility] Study observation (narrative) [employer] US Abdomen RUQOrdered By: Shawanda Kelly on 02-19-2024 [employer] Work Phone: US LIVER/GALL BLADDER/PANCRE ASon 02-19-2024 US LIVER/GALL BLADDER/PANCREAS EXAMINATION: US LIVER/GALL BLADDER/PANCREAS 02/19/2024 11:15 AM CLINICAL HISTORY: HCC screen ASSOCIATED DIAGNOSIS: Hepatic cirrhosis, unspecified hepatic cirrhosis type, unspecified whether ascites present (HCC) ORDERING PROVIDER: JAIME CARTER COMPARISON: CT ABDOMEN/PELVIS W/ CONTRAST 2022, 4:15 PM US LIVER/GALL BLADDER/PANCREAS 04/27/2020, 1:41 PM TECHNIQUE: Ultrasound real time scan with image documentation of the right upper quadrant including the liver, gallbladder, and pancreas was performed. FINDINGS: Liver Craniocaudal length: 14.3 cm. Echogenicity: The liver has coarsened echotexture. Surface nodularity: Mildly nodular. Mass (size and location): None. Bile ducts Intrahepatic ducts: No biliary dilatation. Common bile duct: Normal caliber. Diameter 4 mm. Gallbladder Size and morphology: Status post cholecystectomy. Pancreas The pancreatic head and body are unremarkable. Visualization of the tail is limited. Other findings None. IMPRESSION: Cirrhotic liver without a focal suspicious hepatic lesion. MACRO: None Normal [employer] ALPHA FETOPROTEIN TUMOR ALMA Oswald 01-27-2024 AFP 3.6 ng/mL Normal <=9.0 [facility] [employer] [facility] Comment on above: Order Comment: The [employer] Alpha- Fetoprotein (AFP) assay is a sandwich chemiluminescent immunoassay. Results obtained with different assay methods or kits cannot be used interchangeably. Increased AFP concentrations have also been observed in ataxia telangiectasia, hereditary tyrosinemia, primary hepatocellular carcinoma, teratocarcinoma, gastrointestinal tract cancers with and without liver metastases, and in benign hepatic conditions such as acute viral hepatitis, chronic active hepatitis, and cirrhosis. The result cannot be interpreted as absolute evidence of the presence or absence of malignant disease. The result is not interpretable as a tumor marker in females Performed By: #### A FP TM #### [facility] [address] [place] [address], BASIC METABOLIC PANELon 05-0 Anion gap [Moles/Vol] 16 mmol/L Normal 10-20 [facility] Comment on above: Performed By: #### C H8, HEPATIC #### [facility] [address] [place] [address], Calcium [Mass/Vol] 9.5 mg/dL Normal 8.6-10.3 [facility] Comment on above: Performed By: #### C H8, HEPATIC #### [facility] [address] [place] [address], Chloride [Moles/Vol] 101 mmol/L Normal 98-107 [facility] Comment on above: Performed By: #### C H8, HEPATIC #### [facility] [address] [place] [address], CO2 [Moles/Vol] 26 mmol/L Normal 21-31 [facility] Comment on above: Performed By: #### C H8, HEPATIC #### [facility] [address] [place] [address], Creatinine [Mass/Vol] 1.11 mg/dL Normal 0.60-1.20 [facility] Comment on above: Performed By: #### C H8, HEPATIC #### [facility] [address] [place] [address], ESTIMATED GFR (CKD-EPI) 56 mL/min/1.73sqm Low >=60 [facility] Comment on above: Result Comment: 2020 CKD EPI Equation using Creatinine without Race Comment: Estimated glomerular filtration rate (eGFR) is calculated without a race coefficient. Values should be interpreted in the context of the patient's full clinical presentation. Reference: 1. Marco A Palomo, Marcy M, Nelida WALTON, et al.. A Unifying Approach for GFR Estimation: Recommendations of the NKF-ASN Task Force on Reassessing the Inclusion of Race in Diagnosing Kidney Disease. [place] Journal of Kidney Diseases 2021;79(2):268-88.e1. 2. N Engl J Med 2020 Vol. 385 Issue 19 Pages 6031-7129 Performed By: #### C H8, HEPATIC #### [facility] [address] [place] [address], Glucose [Mass/Vol] 115 mg/dL High 74-109 [facility] Comment on above: Performed By: #### C H8, HEPATIC #### [facility] [address] [place] [address], Potassium [Moles/Vol] 4.0 mmol/L Normal 3.5-5.0 [facility] Comment on above: Performed By: #### C H8, HEPATIC #### [facility] [address] [place] [address], Sodium [Moles/Vol] 139 mmol/L Normal 136-145 [facility] Comment on above: Performed By: #### C H8, HEPATIC #### [facility] [address] [place] [address], Urea nitrogen [Mass/Vol] 25 mg/dL Normal 7-25 [facility] Comment on above: Performed By: #### C H8, HEPATIC #### [facility] [address] [place] [address], Basic metabolic 2000 panelon 01-27-2024 Anion gap [Moles/Vol] 16 mmol/L 10 - 20 [facility] Calcium [Mass/Vol] 9.5 mg/dL 8.6 - 10. 3 mg/dL [facility] Chloride [Moles/Vol] 101 mmol/L 98 - 10 7 mmol/L [facility] CO2 [Moles/Vol] 26 mmol/L 21 - 31 mmol/L [facility] Creatinine [Mass/Vol] 1.11 mg/dL 0.60 - 1.20 mg/dL [facility] GFR/1.73 sq M.predicted CKD-EPI (S/P/Bld) [Vol rate/Area] 56 Low - PINF [facility] Comment on above: 2020 CKD EPI Equatio n using Creatinine without Race Comment: Estimated glomerular filtration rate (eGFR) is calculated without a race coefficient. Values should be interpreted in the context of the patient's full clinical presentation. Reference: 1. Marco A C, Marcy M, Nelida DC, et al.. A Unifying Approach for GFR Estimation: Recommendations of the NKF-ASN Task Force on Reassessing the Inclusion of Race in Diagnosing Kidney Disease. [place] Journal of Kidney Diseases 202;79(2):268-88.e1. 2. N Engl J Med 2020 Vol. 385 Issue 19 Pages 9826-5348 Glucose [Mass/Vol] 115 mg/dL High 74 - 109 mg/dL [facility] Potassium [Moles/Vol] 4.0 mmol/L 3.5 - 5.0 mmol/L [facility] Sodium [Moles/Vol] 139 mmol/L 136 - 145 mmol/L [facility] Urea nitrogen [Mass/Vol] 25 mg/dL 7 - 25 mg/dL [facility] CBC panel Auto (Bld)on 01-26 Erythrocyte distribution width (RBC) [Ratio] 14.7 % High 11.5 - 14.5 % [facility] Hematocrit (Bld) [Volume fraction] 41.9 % 36.0 - 46.0 % [facility] Hemoglobin (Bld) [Mass/Vol] 13.9 g/dL 12.0 - 15.0 g/dL [facility] Interpretation and review of laboratory results Abnormal [facility] MCH (RBC) [Entitic mass] 31.5 pg 26.0 - 34.0 pg [facility] MCHC (RBC) [Mass/Vol] 33.1 g/dL 32.0 - 35.9 g/dL [facility] MCV (RBC) [Entitic vol] 95 fL 80 - 100 fL [facility] Platelet mean volume (Bld) [Entitic vol] 10.8 fL 7.5 - 11.2 fL [facility] Platelets (Bld) [#/Vol] 177 10*3/uL 150 - 400 K/uL [facility] RBC (Bld) [#/Vol] 4.40 10*6/uL [facility] WBC (Bld) [#/Vol] 6.9 10*3/uL 4.5 - 11.5 K/uL [facility] COMPLETE BLOOD COUNTon 01-26 Erythrocyte distribution width (RBC) [Ratio] 14.7 % High 11.5-14.5 [facility] Comment on above: Performed By: #### C BC #### [facility] [address] [place] [address], Hematocrit (Bld) [Volume fraction] 41.9 % Normal 36.0-46.0 [facility] Comment on above: Performed By: #### C BC #### [facility] [address] [place] [address], Hemoglobin (Bld) [Mass/Vol] 13.9 g/dL Normal 12.0-15.0 [facility] Comment on above: Performed By: #### C BC #### [facility] [address] [place] [address], MCH (RBC) [Entitic mass] 31.5 pg Normal 26.0-34.0 [facility] Comment on above: Performed By: #### C BC #### [facility] [address] [place] [address], MCHC (RBC) [Mass/Vol] 33.1 g/dL Normal 32.0-35.9 [facility] Comment on above: Performed By: #### C BC #### [facility] [address] [place] [address], MCV (RBC) [Entitic vol] 95 fL Normal 80-100 [facility] Comment on above: Performed By: #### C BC #### [facility] [address] [place] [address], Platelet mean volume (Bld) [Entitic vol] 10.8 fL Normal 7.5-11.2 [facility] Comment on above: Performed By: #### C BC #### [facility] [address] [place] [address], Platelets (Bld) [#/Vol] 177 10*3/uL Normal 150-400 [facility] Comment on above: Performed By: #### C BC #### [facility] [address] [place] [address], RBC (Bld) [#/Vol] 4.40 10*6/uL Normal 4.00-5.20 [facility] Comment on above: Performed By: #### C BC #### [facility] [address] [place] [address], WBC (Bld) [#/Vol] 6.9 10*3/uL Normal 4.5-11.5 [facility] Comment on above: Performed By: #### C BC #### [facility] [address] [place] [address], HEPATIC FUNCTION PANELon Albumin [Mass/Vol] 4.4 g/dL Normal 3.5-5.7 [facility] Comment on above: Performed By: #### C H8, HEPATIC #### [facility] [address] [place] [address], ALK 59 IU/L Normal 34-104 [facility] Comment on above: Performed By: #### C H8, HEPATIC #### [facility] [address] [place] [address], ALT [Catalytic activity/Vol] 38 U/L Normal 7-52 [facility] Comment on above: Performed By: #### C H8, HEPATIC #### [facility] [address] [place] [address], AST [Catalytic activity/Vol] 31 U/L Normal 13-39 [facility] Comment on above: Performed By: #### C H8, HEPATIC #### [facility] [address] [place] [address], Bilirubin [Mass/Vol] 1.0 mg/dL Normal 0.3-1.0 [facility] Comment on above: Performed By: #### C H8, HEPATIC #### [facility] [address] [place] [address], Bilirubin.direct [Mass/Vol] 0.23 mg/dL High 0.03-0.18 [facility] Comment on above: Performed By: #### C H8, HEPATIC #### [facility] [address] [place] [address], Protein [Mass/Vol] 6.8 g/dL Normal 6.0-8.3 [facility] Comment on above: Performed By: #### C H8, HEPATIC #### [facility] [address] [place], [address] Laboratory - Chemistry and C hemistry - challengeon 01-27-2024 Albumin [Mass/Vol] 4.4 g/dL 3.5 - 5.7 g/dL [facility] ALP [Catalytic activity/Vol] 59 U/L [facility] ALT [Catalytic activity/Vol] 38 U/L [facility] AST [Catalytic activity/Vol] 31 U/L [facility] Bilirubin [Mass/Vol] 1.0 mg/dL 0.3 - 1 .0 mg/dL [facility] Bilirubin.direct [Mass/Vol] 0.23 mg/dL High 0.03 - 0.18 mg/dL [facility] Protein [Mass/Vol] 6.8 g/dL 6.0 - 8.3 g/dL [facility] Laboratory - CoagulationOrde red By: Franklyn Nguyễn on 01-27-2024 INR Coag (PPP) [Relative time] 0.95 {INR} 0.90 - 1.10 [facility] PT Coag (PPP) [Time] 11.3 s [facility] No Panel Informationon 01-26 AFP 3.6 ng/mL NINF - 9.0 ng/mL [facility] Interpretation and review of laboratory results Normal [facility] Alpha-Fetoprotein (AFP) assay is a sandwich chemiluminescent immunoassay. Results obtained with different assay methods or kits cannot be used interchangeably. Increased AFP concentrations have also been observed in ataxia telangiectasia, hereditary tyrosinemia, primary hepatocellular carcinoma, teratocarcinoma, gastrointestinal tract cancers with and without liver metastases, and in benign hepatic conditions such as acute viral hepatitis, chronic active hepatitis, and cirrhosis. The result cannot be interpreted as absolute evidence of the presence or absence of malignant disease. The result is not interpretable as a tumor marker in females [facility] Interpretation and review of laboratory results Abnormal [facility] No Panel InformationOrdered By: Franklyn Nguyễn on 01-27-2024 Interpretation and review of laboratory results Normal [facility] AND INRon 0 01-27-2024 INR Coag (PPP) [Relative time] 0.95 {INR} Normal 0.90-1.10 [facility] Comment on above: Performed By: #### P T #### [facility] [address] [place], [address] PT Coag (PPP) [Time] 11.3 s Normal 9.4-12.5 [facility] Comment on above: Performed By: #### P T #### [facility] [address] [place], [address] Progress Noteson 01-27-2024 Inspector Metal Can Authentication Interface Message Text Hepatology Clinic Visit Patient name: Micheline FOX : 1960 Date: 01/27/24 Referring Provider: Self Patient Subjective Chief Complaint: I had the pleasure of speaking with Micheline FOX, for chief complaint of cirrhosis(see problem-based documentation below for details). A copy of today's note will be communicated to referring doctor via the electronic medical record or fax. Referring Provider: Self Patient History of Present Illness: Micheline FOX is a 63 year old female who presents for management of compensated HCV cirrhosis. Referring Provider: Self Patient. Last appt 04/2022. Patient reports she has not followed up sooner due to transportation difficulties and anxiety. Patient has PMhx of HCV (Finished 24 weeks of Sofosbuvir and Ribavirin, SVR achieved), obesity s/p gastric bypass (in the 80s), cholecystectomy, hysterectomy, hernia repair with mesh, compensated cirrhosis and KELLY (not compliant with cpap). She does not use drugs or alcohol. CT 11/2023 with unremarkable liver, however limited evaluation given w/o contrast. Patient reporting insomnia, mostly due to anxiety about health. There is no history of confusion, day/night cycle reversal, abdominal distention, leg swelling, hematemesis, coffee ground emesis, hematochezia, jaundice, ascites or melena. FH: There is no history of liver cancer, cirrhosis or other liver related disease. No autoimmune. SH: No drugs/alcohol Family History family history includes Heart Disease in her father. Social History Social History Tobacco Use Smoking status: Former Current packs/day: 0.00 Average packs/day: 0.5 packs/day for 15.0 years (7.5 ttl pk-yrs) Types: Cigarettes Start date: 07/03/1999 Quit date: 07/03/2014 Years since quittin.5 Smokeless tobacco: Never Substance Use Topics Alcohol use: Yes Comment: socially Data Review All data reviewed and updated as appropriate Prior additional labs: Component 04/27/2020 Hepatitis C RNA Quant Not Detected HBsAg Non-Reactive Hep B Surface Ab 156.2 Hep B Core Ab Total Nonreactive Hep A Ab Total Reactive (A) Hep A Ab IgM Nonreactive Computed MELD 3.0 unavailable. Necessary lab results were not found in the last year. Computed MELD-Na unavailable. Necessary lab results were not found in the last year. Prior liver imagin11/2023 CT A/P: FINDINGS: Evaluation is limited by lack of intravenous contrast. Visualized portion of the lung bases are unremarkable. Gastric bypass changes noted. The liver, spleen, kidneys, adrenal glands and pancreas are unremarkable. Gallbladder absent. No abdominal aortic aneurysm. 04/2022 CT A/P: Hepatobiliary: The liver has a nodular contour consistent with cirrhosis. No focal hepatic lesion seen. Mild hepatomegaly. Cholecystectomy. IMPRESSION: 1. Mild ground glass/reticular opacities in the right lower lobe suggestive of a resolving/mild infectious process. 2. Cirrhosis with mild hepatomegaly and splenomegaly. 09/2020 CT A/P: 1. Redemonstration postoperative changes from prior ventral hernia repair with mesh. Residual scarring with possible trace fluid/seroma may be present. No evidence of hernia recurrence. 2. Hepatic morphology suggestive of cirrhosis. Recommend correlation with liver function tests. 3. Splenomegaly. 4. Status post cholecystectomy, vertical banded gastroplasty, and hysterectomy. 5. Ancillary findings as described above. 10/2015 Fibroscan Findings: Evidence of advanced fibrosis / cirrhosis (F4) 04/2020 US Liver: 1. Cirrhotic liver morphology. Likely superimposed moderate steatosis. No focal lesions to suggest HCC. 2. Status post cholecystectomy without biliary dilatation. 3. Nonvisualization of the pancreas due to overlying bowel gas Shadowing. 2008 Liver bx: Chronic hepatitis C, with mild lobular / mild to moderate portal / mild interface inflammatory activity (Grade 2/4) and cirrhosis (Grade 4/4). No steatosis is noted. Prior endoscopies: 07/2022 EGD/Colon: DUODENUM: Bulb and descending portion appeared normal. STOMACH: Pyloric channel, body, fundus and cardia, including retroflexed views appear normal. Evidence of prior sleeve gastrectomy. Scattered areas of patchy erythematous mucosa in the antrum. Mosaic mucosal pattern noted. Random biopsies taken to r/o H. Pylori (Bottle A). No varices noted. ESOPHAGUS: Diaphragmatic hiatus was 38 cm from incisors and GE junction (upper margin of gastric folds) was at 36 cm from incisors. Squamocolumnar junction was at 36 cm from incisors. Mucosa appeared normal. Random biopsies taken from distal and mid-esophagus to r/o EoE (Bottle B). No varices noted. FINDINGS: Moderate amount of yellow semi-solid to liquid stool requiring extensive washing and suctioning. TI: intubated with normal appearing mucosa. Cecum: Normal. Ascending Colon: Normal. Hepatic Flexure: Normal. Transverse Colon: Normal. Spl (more content not included)... Normal [facility] XR CHEST PA/APon 01-12-2024 XR CHEST PA/AP EXAMINATION: XR CHEST PA/AP 01/12/2024 9:07 am HISTORY: ORDERING SYSTEM PROVIDED HISTORY: SOB, TECHNOLOGIST PROVIDED HISTORY: Illness/Other Reason for exam: SOB, anxiety Cancer History: unknown Surgery, RadiationHistory: unknown Encounter Type: Initial Additional signs and symptoms: . ORDERING SYSTEM PROVIDED DIAGNOSIS CODES: COMPARISON: 11/05/2022 FINDINGS: Heart is slightly enlarged with a left ventricular contour. Vascularity is unremarkable. Right lung is unremarkable. There is slight increased density in the left lung base laterally along with blunting of the left costophrenic angle. Left upper lobe is unremarkable. EKG leads overlie the chest. Arthritic changes of both shoulders are noted. IMPRESSION: Slight increased density in the left lung base laterally along with blunting of the left costophrenic angle. Findings could be due to atelectasis on and or an infiltrate. A small left effusion cannot be excluded. Workstation ID: [id number] Dictated by: EVA NUNES on ThuJan 12, 2024 9:31:51 AM EDT Transcribed by: EVA NUNES on ThuJan 12, 2024 9:31:51 AM EDT Finalized by: EVA NUNES on ThuJan 12, 2024 9:31:51 AM EDT [facility] Comment on above: Order Comment: Injur y/Trauma or Illness?:Illness/Other How long have you had these symptoms (acute/chronic)?:Acute Reason for exam?:SOB, anxiety History of cancer?:unknown Surgeries, chemotherapy, or radiation?:unknown Type of Exam?:Initial Additional signs and symptoms?:. ALCOHOLon 12-19-2023 Ethanol [Mass/Vol] mg/dL Normal 0-10 [facility] Comment on above: Result Comment: INTOXICATION >80 MG/DL FATAL >400 MG/DL Performed By: #### U GERARDO, RTOX, UMAC #### Testing performed at [address] [address] ALCOHOL (ETHANOL),BLOODon Ethanol [Mass/Vol] mg/dL [facility] Comment on above: INTOXICATION >80 MG/DL FATAL >400 MG/DL CBCon 12-19-2023 ABSOLUTE BAS 0.0 10*3/uL Normal 0.0-0.2 [facility] Comment on above: Performed By: #### U GERARDO, RTOX, UMAC #### Testing performed at [address] [address] ABSOLUTE EOS 0.1 10*3/uL Normal 0.0-0.7 [facility] Comment on above: Performed By: #### U GERARDO, RTOX, UMAC #### Testing performed at [address] [address] ABSOLUTE NEUTROPHIL COUNT 3.4 10*3/uL Normal 1.4-6.5 [facility] Comment on above: Performed By: #### U GERARDO, RTOX, UMAC #### Testing performed at [address] [address] Basophils/100 WBC (Bld) 0.5 % Normal 0.0-2.0 [facility] Comment on above: Performed By: #### U GERARDO, RTOX, UMAC #### Testing performed at [address] [address] DTYPE AUTO DIFF Normal [facility] Comment on above: Performed By: #### U GERARDO, RTOX, UMAC #### Testing performed at [address] [address] Eosinophils/100 WBC (Bld) 2.0 % Normal 0.0-11.0 [facility] Comment on above: Performed By: #### U GERARDO, RTOX, UMAC #### Testing performed at [address] [address] Lymphocytes (Bld) [#/Vol] 1.2 10*3/uL Normal 1.2-3.4 [facility] Comment on above: Performed By: #### U GERARDO, RTOX, UMAC #### Testing performed at [address] [address] Lymphocytes/100 WBC (Bld) 23.9 % Normal 20.0-55.0 [facility] Comment on above: Performed By: #### U GERARDO, RTOX, UMAC #### Testing performed at [address] [address] Monocytes (Bld) [#/Vol] 0.3 10*3/uL Normal 0.0-0.7 [facility] Comment on above: Performed By: #### U GERARDO, RTOX, UMAC #### Testing performed at [address] [address] Monocytes/100 WBC (Bld) 5.3 % Normal 0.0-10.0 [facility] Comment on above: Performed By: #### U GERARDO, RTOX, UMAC #### Testing performed at [address] [address] Neutrophils/100 WBC (Bld) 68.3 % Normal 37.0-75.0 [facility] Comment on above: Performed By: #### U GERARDO, RTOX, UMAC #### Testing performed at [address] [address] Erythrocyte distribution width (RBC) [Ratio] 16.3 % High 11.5-14.5 [facility] Comment on above: Performed By: #### U GERARDO, RTOX, UMAC #### Testing performed at [address] [address] Hematocrit (Bld) [Volume fraction] 34.5 % Low 36.0-48.0 [facility] Comment on above: Performed By: #### U GERARDO, RTOX, UMAC #### Testing performed at [address] [address] Hemoglobin (Bld) [Mass/Vol] 12.0 g/dL Normal 12.0-16.0 [facility] Comment on above: Performed By: #### U GERARDO, RTOX, UMAC #### Testing performed at [address] [address] MCH (RBC) [Entitic mass] 32.5 pg Normal 26.0-35.0 [facility] Comment on above: Performed By: #### U GERARDO, RTOX, UMAC #### Testing performed at [address] [address] MCHC (RBC) [Mass/Vol] 34.9 g/dL Normal 27.0-37.0 [facility] Comment on above: Performed By: #### U GERARDO, RTOX, UMAC #### Testing performed at [address] [address] MCV (RBC) [Entitic vol] 93.0 fL Normal 80.0-100.0 [facility] Comment on above: Performed By: #### U GERARDO, RTOX, UMAC #### Testing performed at [address] [address] Platelet mean volume (Bld) [Entitic vol] 10.0 fL Normal 7.4-11.0 [facility] Comment on above: Performed By: #### U GERARDO, RTOX, UMAC #### Testing performed at [address] [address] Platelets (Bld) [#/Vol] 111 10*3/uL Low 130-400 [facility] Comment on above: Performed By: #### U GERARDO, RTOX, UMAC #### Testing performed at [address] [address] RBC (Bld) [#/Vol] 3.70 10*6/uL Low 4.0-5.4 [facility] Comment on above: Performed By: #### U GERARDO, RTOX, UMAC #### Testing performed at [address] [address] WBC (Bld) [#/Vol] 5.0 10*3/uL Normal 3.6-11.0 [facility] Comment on above: Performed By: #### U GERARDO, RTOX, UMAC #### Testing performed at [facility] [address] [place] [address] CBC, EDIF, PLATELETon 2023 ABSOLUTE BASOPHIL COUNT 0.0 10*3/uL 0.0 - 0.2 10*3/uL [facility] Basophils/100 WBC (Bld) 0.5 % 0.0 - 2.0 % [facility] Differential cell count method Nom (Bld) AUTO DIFF % [facility] Eosinophils (Bld) [#/Vol] 0.1 10*3/uL 0.0 - 0.7 10*3/uL [facility] Eosinophils/100 WBC (Bld) 2.0 % 0.0 - 11.0 % [facility] Erythrocyte distribution width (RBC) [Ratio] 16.3 % High 11.5 - 14.5 % [facility] Hematocrit (Bld) [Volume fraction] 34.5 % Low 36.0 - 48.0 % [facility] Hemoglobin (Bld) [Mass/Vol] 12.0 g/dL [facility] Interpretation and review of laboratory results Abnormal [facility] Lymphocytes (Bld) [#/Vol] 1.2 10*3/uL 1.2 - 3.4 10*3/uL [facility] Lymphocytes/100 WBC (Bld) 23.9 % 20.0 - 55.0 % [facility] MCH (RBC) [Entitic mass] 32.5 pg 26.0 - 35.0 PG [facility] MCHC (RBC) [Mass/Vol] 34.9 g/dL [facility] MCV (RBC) [Entitic vol] 93.0 fL [facility] Monocytes (Bld) [#/Vol] 0.3 10*3/uL 0.0 - 0.7 10*3/uL [facility] Monocytes/100 WBC (Bld) 5.3 % 0.0 - 10.0 % [facility] Neutrophils (Bld) [#/Vol] 3.4 10*3/uL 1.4 - 6.5 10*3/uL [facility] Neutrophils/100 WBC (Bld) 68.3 % 37.0 - 75.0 % [facility] Platelet mean volume (Bld) [Entitic vol] 10.0 fL [facility] Platelets (Bld) [#/Vol] 111 10*3/uL Low 130 - 400 10*3/uL [facility] RBC (Bld) [#/Vol] 3.70 10*6/uL Low 4.0 - 5.4 10*6/uL [facility] WBC (Bld) [#/Vol] 5.0 10*3/uL 3.6 - 11.0 10*3/uL [facility] CHEM 7 FASTINGon 12-19-2023 Chloride [Moles/Vol] 113 mmol/L High 98-107 [facility] Comment on above: Result Comment: Hilary diaz note: Triglyceride levels of 600mg/dL or higher may positively bias chloride results by approximately 2.1 mmol Performed By: #### U GERARDO, RTOX, UMAC #### [place] [address] CO2 [Moles/Vol] 19 mmol/L Low 22-30 [facility] Comment on above: Performed By: #### U GERARDO, RTOX, UMAC #### [place] [address] Creatinine [Mass/Vol] 1.30 mg/dL High 0.70-1.20 [facility] Comment on above: Performed By: #### U GERARDO, RTOX, UMAC #### [place] [address] EST. GFR, 53 ml/min/1.73sq.m [facility] Comment on above: Performed By: #### U GERARDO, RTOX, UMAC #### [place] [address] EST. GFR,Non 44 ml/min/1.73sq.m [facility] Comment on above: Performed By: #### U GERARDO, RTOX, UMAC #### [place] [address] GFR Information Average GFR for 60-6 9 years old = 85. [facility] Comment on above: Result Comment: [employer] romelia Kidney disease, GFR = <60. Kidney failure, GFR = <15. The GFR estimate is not adjusted for extreme body surface area or acute process, nor has it been validated for women or ethnic groups other than and . Performed By: #### U GERARDO, RTOX, UMAC #### Testing performed at [address] [address] Glucose [Mass/Vol] 107 mg/dL High 70-100 [facility] Comment on above: Result Comment: NORMAL <100 mg/dL PREDIABETES 101-126 mg/dL DIABETES 126 mg/dL or higher Performed By: #### U GERARDO, RTOX, UMAC #### Testing performed at [address] [address] Potassium [Moles/Vol] 3.3 mmol/L Low 3.5-5.1 [facility] Comment on above: Performed By: #### U GERARDO, RTOX, UMAC #### Testing performed at [address] [address] Sodium [Moles/Vol] 142 mmol/L Normal 137-145 [facility] Comment on above: Performed By: #### U GERARDO, RTOX, UMAC #### Testing performed at [address] [address] Urea nitrogen [Mass/Vol] 12 mg/dL Normal 7-20 [facility] Comment on above: Performed By: #### U GERARDO, RTOX, UMAC #### Testing performed [address] [address] [address] CHEM 7 (LYTES,BUN,CREA,GLUC) on 12-19-2023 Chloride [Moles/Vol] 113 mmol/L [facility] Comment on above: Please note: Triglyc eride levels of 600mg/dL or higher may positively bias chloride results by approximately 2.1 mmol CO2 [Moles/Vol] 19 mmol/L Low [facility] Creatinine [Mass/Vol] 1.30 mg/dL High [facility] GFR COMMENT Average GFR for 60-6 9 years old = 85. [facility] Comment on above: Chronic Kidney disea se, GFR = <60. Kidney failure, GFR = <15. The GFR estimate is not adjusted for extreme body surface area or acute process, nor has it been validated for women or ethnic groups other than and . GFR/1.73 sq M.predicted among blacks MDRD (S/P/Bld) [Vol rate/Area] 53 mL/min/{1.73_m2} ml/min/1.73sq .m [facility] GFR/1.73 sq M.predicted among non-blacks MDRD (S/P/Bld) [Vol rate/Area] 44 mL/min/{1.73_m2} ml/min/1.73sq .m [facility] Glucose post fast [Mass/Vol] 107 mg/dL High [facility] Comment on above: NORMAL <100 mg/dL PREDIABETES 101-126 mg/dL DIABETES 126 mg/dL or higher Potassium [Moles/Vol] 3.3 mmol/L Low [facility] Sodium [Moles/Vol] 142 mmol/L [facility] Urea nitrogen [Mass/Vol] 12 mg/dL [facility] CT ABDOMEN/PELVIS WITHOUT CO NTRASTon 12-19-2023 CT ABDOMEN/PELVIS WITHOUT CONTRAST EXAM: CT ABDOMEN/PELVIS WITHOUT CONTRAST CLINICAL INDICATION: Abdominal pain COMPARISON: None. TECHNIQUE: Axial CT of the abdomen, and pelvis was performed from the top of the hemidiaphragms to the inferior osseous pelvis without intravenous contrast. 2-D reformats were obtained. Automatic exposure control radiation dose reduction technology was utilized. FINDINGS: Evaluation is limited by lack of intravenous contrast. Visualized portion of the lung bases are unremarkable. Gastric bypass changes noted. The liver, spleen, kidneys, adrenal glands and pancreas are unremarkable. Gallbladder absent. No abdominal aortic aneurysm. Supraumbilical ventral hernia repair changes noted with subcutaneous inflammation/scarring . No fluid collections. No enlarged lymph nodes, free fluid, or free air. The bowel is without evidence of obstruction or adjacent inflammatory changes. The appendix is not visualized with certainty. Bladder unremarkable. Hysterectomy changes noted. No suspicious osseous lesions. IMPRESSION: 1. No significant acute abnormality identified in the abdomen or pelvis, within the limits of unenhanced CT, as described above. Normal [facility] CT Abdomen and Pelvis WO con traston 12-19-2023 IMPRESSION: 1. No significant acute abnormality identified in the abdomen or pelvis, within the limits of unenhanced CT, as described above. RADIOLOGY EXAM: CT ABDOMEN/PELVIS WITHOUT CONTRAST CLINICAL INDICATION: Abdominal pain COMPARISON: None. TECHNIQUE: Axial CT of the abdomen, and pelvis was performed from the top of the hemidiaphragms to the inferior osseous pelvis without intravenous contrast. 2-D reformats were obtained. Automatic exposure control radiation dose reduction technology was utilized. FINDINGS: Evaluation is limited by lack of intravenous contrast. Visualized portion of the lung bases are unremarkable. Gastric bypass changes noted. The liver, spleen, kidneys, adrenal glands and pancreas are unremarkable. Gallbladder absent. No abdominal aortic aneurysm. Supraumbilical ventral hernia repair changes noted with subcutaneous inflammation/scarring . No fluid collections. No enlarged lymph nodes, free fluid, or free air. The bowel is without evidence of obstruction or adjacent inflammatory changes. The appendix is not visualized with certainty. Bladder unremarkable. Hysterectomy changes noted. No suspicious osseous lesions. RADIOLOGY Rico Mendez MD - 12/19/2023 EXAM: CT ABDOMEN/PELVIS WITHOUT CONTRAST CLINICAL INDICATION: Abdominal pain COMPARISON: None. TECHNIQUE: Axial CT of the abdomen, and pelvis was performed from the top of the hemidiaphragms to the inferior osseous pelvis without intravenous contrast. 2-D reformats were obtained. Automatic exposure control radiation dose reduction technology was utilized. FINDINGS: Evaluation is limited by lack of intravenous contrast. Visualized portion of the lung bases are unremarkable. Gastric bypass changes noted. The liver, spleen, kidneys, adrenal glands and pancreas are unremarkable. Gallbladder absent. No abdominal aortic aneurysm. Supraumbilical ventral hernia repair changes noted with subcutaneous inflammation/scarring . No fluid collections. No enlarged lymph nodes, free fluid, or free air. The bowel is without evidence of obstruction or adjacent inflammatory changes. The appendix is not visualized with certainty. Bladder unremarkable. Hysterectomy changes noted. No suspicious osseous lesions. IMPRESSION IMPRESSION: 1. No significant acute abnormality identified in the abdomen or pelvis, within the limits of unenhanced CT, as described above. [facility] Study observation (narrative) [facility] CT Abdomen and Pelvis WO con trastOrdered By: Rico Mendez on 12-19-2023 [facility] Work Phone: HEPATIC FUNCTION PANELon Albumin [Mass/Vol] 4.6 g/dL [facility] ALP [Catalytic activity/Vol] 73 U/L [facility] ALT [Catalytic activity/Vol] 45 U/L High NINF [facility] AST [Catalytic activity/Vol] 44 U/L High [facility] Bilirubin [Mass/Vol] 1.4 mg/dL High [facility] Bilirubin.direct [Mass/Vol] 0.2 mg/dL [facility] Protein [Mass/Vol] 6.8 g/dL [facility] LACTATE, BLOODon 12-19-2023 Lactate [Moles/Vol] 1.1 mmol/L 0.7 - 2. 0 mmol/L [facility] LACTATE,BLOODon 12-19-2023 Lactate [Moles/Vol] 1.1 mmol/L Normal 0.7-2.0 [facility] Comment on above: Performed By: #### L ACTAC ####Testing performed at [address] [place] [address] LIPASEon 12-19-2023 Lipase [Catalytic activity/Vol] 146 U/L 23 - 300 U/L [facility] LIPASE,SERUMon 12-19-2023 LIPASE,SERUM 146 U/L Normal 23-300 [facility] Comment on above: Performed By: #### U GERARDO, RTOX, UMAC #### Testing performed at [address] [address] LIVER PANELon 12-19-2023 Albumin [Mass/Vol] 4.6 g/dL Normal 2.9-5.3 [facility] Comment on above: Performed By: #### U GERARDO, RTOX, UMAC #### Testing performed at [address] [address] ALP [Catalytic activity/Vol] 73 U/L Normal 38-126 [facility] Comment on above: Performed By: #### U GERARDO, RTOX, UMAC #### Testing performed at [address] [address] ALT [Catalytic activity/Vol] 45 U/L High <35 [facility] Comment on above: Performed By: #### U GERARDO, RTOX, UMAC #### Testing performed at [address] [place] [address] AST [Catalytic activity/Vol] 44 U/L High 14-36 [facility] Comment on above: Performed By: #### U GERARDO, RTOX, UMAC #### Testing performed at [address] [place] [address] Bilirubin [Mass/Vol] 1.4 mg/dL High 0.2-1.3 [facility] Comment on above: Performed By: #### U GERARDO, RTOX, UMAC #### Testing performed at [address] [address] Bilirubin.indirect [Mass/Vol] 0.2 mg/dL Normal 0.0-0.4 [facility] Comment on above: Performed By: #### U GERARDO, RTOX, UMAC #### Testing performed at [address] [address] Protein [Mass/Vol] 6.8 g/dL Normal 6.3-8.2 [facility] Comment on above: Performed By: #### U GERARDO, RTOX, UMAC #### Testing performed at [address] [address] No Panel Informationon 12-18 Interpretation and review of laboratory results Abnormal [facility] Interpretation and review of laboratory results Abnormal [facility] RAPID TOX SCREEN,URINEon AMPHETAMINE Negative Normal NEGATIVE [facility] Comment on above: Result Comment: <500 ng/ml CUTOFF Performed By: #### U GERARDO, RTOX, UMAC #### Testing performed at [address] [place] [address] BARBITURATES Negative Normal NEGATIVE [facility] Comment on above: Result Comment: <200 ng/ml CUTOFF Performed By: #### U GERARDO, RTOX, UMAC #### Testing performed at [address] [place] [address] BENZODIAZEPINES Positive Abnormal NEGATIVE [facility] Comment on above: Result Comment: <200 ng/ml CUTOFF *Unconfirmed Screening Result* Unconfirmed screening results are to be used only for medical treatment purposes. Performed By: #### U GERARDO, RTOX, UMAC #### Testing performed at [address] [place] [address] BUPRENORPHINE Negative Normal NEGATIVE [facility] Comment on above: Result Comment: <12. 5 ng/ml CUTOFF Performed By: #### U GERARDO, RTOX, UMAC #### Testing performed at [address] [place] [address] CANNABINOIDS Negative Normal NEGATIVE [facility] Comment on above: Result Comment: <50 ng/ml CUTOFF Performed By: #### U GERARDO, RTOX, UMAC #### Testing performed at [address] [address] COCAINE Negative Normal NEGATIVE [facility] Comment on above: Result Comment: <150 ng/ml CUTOFF Performed By: #### U GERARDO, RTOX, UMAC #### Testing performed at [address] [address] FENTANYL Negative Normal NEGATIVE [facility] Comment on above: Result Comment: 20 n g/mL CUTOFF *Unconfirmed Screening Result* Unconfirmed screening results are to be used only for medical treatment purposes. This test has not been approved by the FDA. Performed By: #### U GERARDO, RTOX, UMAC #### Testing performed at [address] [address] METHADONE Negative Normal NEGATIVE [facility] Comment on above: Result Comment: Meth adone Metabolite <100 ng/ml CUTOFF Performed By: #### U GERARDO, RTOX, UMAC #### Testing performed at [address] [address] METHAMPHETAMINE Negative Normal NEGATIVE [facility] Comment on above: Result Comment: <500 ng/ml CUTOFF Performed By: #### U GERARDO, RTOX, UMAC #### Testing performed at [address] [address] OPIATES Negative Normal NEGATIVE [facility] Comment on above: Result Comment: <300 ng/ml CUTOFF Performed By: #### U GERARDO, RTOX, UMAC #### Testing performed at [address] [address] OXYCODONE Negative Normal NEGATIVE [facility] Comment on above: Result Comment: <100 ng/ml CUTOFF Performed By: #### U GERARDO, RTOX, UMAC #### Testing performed at [address] [address] TRICYCLIC ANTIDEPRESSANTS Positive Abnormal NEGATIVE [facility] Comment on above: Result Comment: <100 0 ng/ml CUTOFF *Unconfirmed Screening Result* Unconfirmed screening results are to be used only for medical treatment purposes. Performed By: #### U GERARDO, RTOX, UMAC #### Testing performed at [facility] [address] [place] [address] TOXICOLOGY DRUG SCREEN, URIN Abelardo 12-19-2023 Amphetamine (U) [Mass/Vol] Negative NEGATIVE NG/ML [facility] Comment on above: <500 ng/ml CUTOFF Barbiturates Screen Ql (U) Negative NEGATIVE NG/ML [facility] Comment on above: <200 ng/ml CUTOFF Benzodiazepines Ql (U) Positive Abnormal NEGATIVE [facility] Comment on above: <200 ng/ml CUTOFF *Unconfirmed Screening Result* Unconfirmed screening results are to be used only for medical treatment purposes. Benzoylecgonine Ql (U) Negative NEGATIVE NG/ML [facility] Comment on above: <150 ng/ml CUTOFF Buprenorphine Ql (U) Negative NEGATIV E NG/ML [facility] Comment on above: <12.5 ng/ml CUTOFF Cannabinoids Screen Ql (U) Negative NEGATIVE NG/ML [facility] Comment on above: <50 ng/ml CUTOFF Fentanyl Negative NEGATIVE NG/ML [facility] Comment on above: 20 ng/mL CUTOFF *Unconfirmed Screening Result* Unconfirmed screening results are to be used only for medical treatment purposes. This test has not been approved by the FDA. Interpretation and review of laboratory results Abnormal [facility] [employer] [facility] Methadone Screen Ql (U) Negative NEGATIVE NG/ML [facility] Comment on above: Methadone Metabolite <100 ng/ml CUTOFF Methamphetamine (U) [Mass/Vol] Negative NEGATIVE NG/ML [facility] Comment on above: <500 ng/ml CUTOFF Opiates Screen Ql (U) Negative NEGATI VE NG/ML [facility] Comment on above: <300 ng/ml CUTOFF oxyCODONE Ql (U) Negative NEGATIVE NG/ML [facility] Comment on above: <100 ng/ml CUTOFF Tricyclic antidepressants Screen Ql (U) Positive Abnormal NEGATIVE NG/ML [facility] Comment on above: <1000 ng/ml CUTOFF *Unconfirmed Screening Result* Unconfirmed screening results are to be used only for medical treatment purposes. [facility] URINALYSIS, MACROon 03-30-20 24 Bilirubin Ql (U) Negative NEGATIVE OLSET [facility] Clarity (U) CLEAR CLEAR [facility] Color (U) YELLOW YELLOW [facility] Glucose Test strip (U) [Mass/Vol] Negative NEGATIVE mg/dl [facility] Hemoglobin Ql (U) TRACE-LYSED Abnormal NEGATIVE [facility] Ketones (U) [Mass/Vol] Negative NEGATIVE mg/dl [facility] Leukocyte esterase Test strip Ql (U) LARGE Abnormal NEGATIVE [facility] Nitrite Ql (U) Negative NEGATIVE [facility] pH (U) 7.0 [pH] 5.0 - 7.0 [facility] Protein Ql (U) Negative NEGATIVE mg/dl [facility] Specific gravity (U) [Rel density] 1.010 1.010 - 1.025 [facility] Urobilinogen (U) [Mass/Vol] 0.2 mg/dL [facility] URINE CULTUREon 12-19-2023 Bacteria identified Cx Nom (U) SPECIMEN DESCRIPTION URINE - OTHER UA DIPSTICK LEUKOCYTE POSITIVE * Result Note: NITRITE NEGATIVE * CULTURE NO PATHOGENS ISOLATED * Result Note: Testing performed at [place] [address] * REPORT STATUS 12/21/2023 * Result Note: FINAL * Normal [facility] Comment on above: Performed By: #### A URNC #### Testing performed at [address] [address] Testing performed at [address] [address] URINE MACROSCOPICon 12-19-19 24 Bilirubin Ql (U) Negative Normal NEGATIVE [facility] Comment on above: Performed By: #### U GERARDO, RTOX, UMAC #### Testing performed at [address] [address] Clarity (U) CLEAR Normal CLEAR [facility] Comment on above: Performed By: #### U GERARDO, RTOX, UMAC #### Testing performed at [address] [address] Color (U) YELLOW Normal YELLOW [facility] Comment on above: Performed By: #### U GERARDO, RTOX, UMAC #### Testing performed at [address] [address] Glucose Ql (U) Negative Normal NEGATIVE [facility] Comment on above: Performed By: #### U GERARDO, RTOX, UMAC #### Testing performed at [address] [address] pH (U) 7.0 [pH] Normal 5.0-7.0 [facility] Comment on above: Performed By: #### U GERARDO, RTOX, UMAC #### Testing performed at [address] [address] URINE HEMOGLOBIN TRACE-LYSED Abnormal NEGATIVE [facility] Comment on above: Performed By: #### U GERARDO, RTOX, UMAC #### Testing performed at [address] [address] URINE KETONE Negative Normal NEGATIVE [facility] Comment on above: Performed By: #### U GERARDO, RTOX, UMAC #### Testing performed at [address] [address] URINE LEUKOTEST LARGE Abnormal NEGATIVE [facility] Comment on above: Performed By: #### U GERARDO, RTOX, UMAC #### Testing performed at [address] [address] URINE NITRATES Negative Normal NEGATIVE [facility] Comment on above: Performed By: #### U GERARDO, RTOX, UMAC #### Testing performed at [address] [address] URINE SPEC GRAVITY 1.010 Normal 1.010-1.025 [facility] Comment on above: Performed By: #### U GERARDO, RTOX, UMAC #### Testing performed at [address] [address] URINE TOTAL PROTEIN Negative Normal NEGATIVE [facility] Comment on above: Performed By: #### U GERARDO, RTOX, UMAC #### Testing performed at [address] [address] Urobilinogen Qn (U) 0.2 {Samuel'U}/dL Normal 0.2-1.0 [facility] Comment on above: Performed By: #### U GERARDO, RTOX, UMAC #### Testing performed at [address] [address] URINE MICROSCOPICon 03-30-20 24 BACTERIA 1+ Abnormal NEGATIVE [facility] Comment on above: Performed By: #### U GERARDO, RTOX, UMAC #### Testing performed at [address] [address] CASTS NONE Normal NONE [facility] Comment on above: Performed By: #### U GERARDO, RTOX, UMAC #### Testing performed at [address] [address] CRYSTAL NONE Normal NONE [facility] Comment on above: Performed By: #### U GERARDO, RTOX, UMAC #### Testing performed at [address] [address] Epithelial cells LM Ql (Urine sed) 1 TO 5 Normal [facility] Comment on above: Performed By: #### U GERARDO, RTOX, UMAC #### Testing performed at [address] [address] Mucus Ql (Urine sed) Negative Normal NEGATIVE [facility] Comment on above: Performed By: #### U GERARDO, RTOX, UMAC #### Testing performed at [address] [address] URINE COMMENT REFLEX CULTURE PER ESTABLISHED CRITERIA. Normal [facility] Comment on above: Performed By: #### U GERARDO, RTOX, UMAC #### Testing performed at [address] [address] URINE RBC'S 1 TO 5 Normal NEGATIVE [facility] Comment on above: Performed By: #### U GERARDO, RTOX, UMAC #### Testing performed at [address] [address] URINE WBC'S 1 TO 5 Normal NEGATIVE [facility] Comment on above: Performed By: #### U GERARDO, RTOX, UMAC #### Testing performed at [address] [address] Bacteria LM.HPF (Urine sed) [#/Area] 1+ Abnormal NEGATIVE [facility] Casts LM.LPF (Urine sed) [#/Area] NONE NONE /LPF [facility] Crystals LM Nom (Urine sed) NONE NONE [facility] Epithelial cells LM Ql (Urine sed) 1 TO 5 /HPF [facility] Mucus Ql (Urine sed) Negative NEGATIVE [facility] RBC LM.HPF (Urine sed) [#/Area] 1 TO 5 NEGATIVE /HPF [facility] Urine sediment comments LM Mg (Urine sed) REFLEX CULTURE PER ESTABLISHED CRITERIA. [facility] WBC LM.HPF (Urine sed) [#/Area] 1 TO 5 NEGATIVE /HPF [facility] ALDOSTERONEon 05-28-2023 ALDOSTERONE 4.7 Normal [facility] Comment on above: Result Comment: Refe rence range: 0.0 to 30.0 Unit: ng/dL (NOTE) This test was developed and its performance characteristics determined by [facility]. It has not been cleared or approved by the Food and Drug Administration. PERFORMED AT [facility] Performed By: #### U GERARDO, RTOX, UMAC #### Testing performed at [address] [address] ACTH, PLASMAon 05-27-2023 ACTH, PLASMA 26.1 Normal [facility] Comment on above: Result Comment: ACTH reference interval for samples collected between 7 and 10 AM. Reference range: 7.2 to 63.3 Unit: pg/mL PERFORMED AT [facility] Performed By: #### L ACTH #### Testing performed at [facility] [address] [place] [address] [place] [address] HCV RNA KRANTHI QUAL RFX TO RANDELL Ton 05-27-2023 HCV RNA, QUANT Not detected Normal [facility] Comment on above: Result Comment: No e vidence of active HCV infection. Unit: IU/mL Performed By: #### U GERARDO, RTOX, UMAC #### Testing performed at [address] [address] TEST INFORMATION Comment Normal [facility] Comment on above: Result Comment: (NOT E) The quantitative range of this assay is 15 IU/mL to 100 million IU/mL. PERFORMED AT [facility] Performed By: #### U GERARDO, RTOX, UMAC #### Testing performed at [address] [address] RENIN ACTIVITY,PLASMAon RENIN 0.262 Normal [facility] Comment on above: Result Comment: Refe rence range: 0.167 to 5.380 Unit: ng/mL/hr (NOTE) This test was developed and its performance characteristics determined by [facility]. It has not been cleared or approved by the Food and Drug Administration. PERFORMED AT [facility] Performed By: #### U GERARDO, RTOX, UMAC #### Testing performed at [address] [address] CBCon 05-26-2023 ABSOLUTE BAS 0.0 10*3/uL Normal 0.0-0.2 [facility] Comment on above: Performed By: #### U GERARDO, RTOX, UMAC #### Testing performed at [address] [address] ABSOLUTE EOS 0.4 10*3/uL Normal 0.0-0.7 [facility] Comment on above: Performed By: #### U GERARDO, RTOX, UMAC #### Testing performed at [address] [address] ABSOLUTE NEUTROPHIL COUNT 2.6 10*3/uL Normal 1.4-6.5 [facility] Comment on above: Performed By: #### U GERARDO, RTOX, UMAC #### Testing performed at [address] [address] Basophils/100 WBC (Bld) 0.5 % Normal 0.0-2.0 [facility] Comment on above: Performed By: #### U GERARDO, RTOX, UMAC #### Testing performed at [address] [address] DTYPE AUTO DIFF Normal [facility] Comment on above: Performed By: #### U GERARDO, RTOX, UMAC #### Testing performed at [address] [address] Eosinophils/100 WBC (Bld) 9.0 % Normal 0.0-11.0 [facility] Comment on above: Performed By: #### U GERARDO, RTOX, UMAC #### Testing performed at [address] [address] Lymphocytes (Bld) [#/Vol] 1.3 10*3/uL Normal 1.2-3.4 [facility] Comment on above: Performed By: #### U GERARDO, RTOX, UMAC #### Testing performed at [address] [address] Lymphocytes/100 WBC (Bld) 27.2 % Normal 20.0-55.0 [facility] Comment on above: Performed By: #### U GERARDO, RTOX, UMAC #### Testing performed at [address] [address] Monocytes (Bld) [#/Vol] 0.5 10*3/uL Normal 0.0-0.7 [facility] Comment on above: Performed By: #### U GERARDO, RTOX, UMAC #### Testing performed at [address] [address] Monocytes/100 WBC (Bld) 9.6 % Normal 0.0-10.0 [facility] Comment on above: Performed By: #### U GERARDO, RTOX, UMAC #### Testing performed at [address] [address] Neutrophils/100 WBC (Bld) 53.7 % Normal 37.0-75.0 [facility] Comment on above: Performed By: #### U GERARDO, RTOX, UMAC #### Testing performed at [address] [address] Erythrocyte distribution width (RBC) [Ratio] 13.4 % Normal 11.5-14.5 [facility] Comment on above: Performed By: #### U GERARDO, RTOX, UMAC #### Testing performed at [address] [address] Hematocrit (Bld) [Volume fraction] 40.6 % Normal 36.0-48.0 [facility] Comment on above: Performed By: #### U GERARDO, RTOX, UMAC #### Testing performed at [address] [address] Hemoglobin (Bld) [Mass/Vol] 13.9 g/dL Normal 12.0-16.0 [facility] Comment on above: Performed By: #### U GERARDO, RTOX, UMAC #### Testing performed at [address] [address] MCH (RBC) [Entitic mass] 31.0 pg Normal 26.0-35.0 [facility] Comment on above: Performed By: #### U GERARDO, RTOX, UMAC #### Testing performed at [address] [address] MCHC (RBC) [Mass/Vol] 34.3 g/dL Normal 27.0-37.0 [facility] Comment on above: Performed By: #### U GERARDO, RTOX, UMAC #### Testing performed at [address] [address] MCV (RBC) [Entitic vol] 90.4 fL Normal 80.0-100.0 [facility] Comment on above: Performed By: #### U GERARDO, RTOX, UMAC #### Testing performed at [address] [address] Platelet mean volume (Bld) [Entitic vol] 9.4 fL Normal 7.4-11.0 [facility] Comment on above: Performed By: #### U GERARDO, RTOX, UMAC #### Testing performed at [address] [address] Platelets (Bld) [#/Vol] 111 10*3/uL Low 130-400 [facility] Comment on above: Performed By: #### U GERARDO, RTOX, UMAC #### Testing performed at [address] [address] RBC (Bld) [#/Vol] 4.49 10*6/uL Normal 4.0-5.4 [facility] Comment on above: Performed By: #### U GERARDO, RTOX, UMAC #### Testing performed at [address] [address] WBC (Bld) [#/Vol] 4.8 10*3/uL Normal 3.6-11.0 [facility] Comment on above: Performed By: #### U GERARDO, RTOX, UMAC #### Testing performed at [address] [address] CBC, EDIF, PLATELETon 2022 ABSOLUTE BASOPHIL COUNT 0.0 10*3/uL 0.0 - 0.2 10*3/uL [facility] Basophils/100 WBC (Bld) 0.5 % 0.0 - 2.0 % [facility] Differential cell count method Nom (Bld) AUTO DIFF % [facility] Eosinophils (Bld) [#/Vol] 0.4 10*3/uL 0.0 - 0.7 10*3/uL [facility] Eosinophils/100 WBC (Bld) 9.0 % 0.0 - 11.0 % [facility] Erythrocyte distribution width (RBC) [Ratio] 13.4 % 11.5 - 14.5 % [facility] Hematocrit (Bld) [Volume fraction] 40.6 % 36.0 - 48.0 % [facility] Hemoglobin (Bld) [Mass/Vol] 13.9 g/dL [facility] Interpretation and review of laboratory results Abnormal [facility] Lymphocytes (Bld) [#/Vol] 1.3 10*3/uL 1.2 - 3.4 10*3/uL [facility] Lymphocytes/100 WBC (Bld) 27.2 % 20.0 - 55.0 % [facility] MCH (RBC) [Entitic mass] 31.0 pg 26.0 - 35.0 PG [facility] MCHC (RBC) [Mass/Vol] 34.3 g/dL [facility] MCV (RBC) [Entitic vol] 90.4 fL [facility] Monocytes (Bld) [#/Vol] 0.5 10*3/uL 0.0 - 0.7 10*3/uL [facility] Monocytes/100 WBC (Bld) 9.6 % 0.0 - 10.0 % [facility] Neutrophils (Bld) [#/Vol] 2.6 10*3/uL 1.4 - 6.5 10*3/uL [facility] Neutrophils/100 WBC (Bld) 53.7 % 37.0 - 75.0 % [facility] Platelet mean volume (Bld) [Entitic vol] 9.4 fL [facility] Platelets (Bld) [#/Vol] 111 10*3/uL Low 130 - 400 10*3/uL [facility] RBC (Bld) [#/Vol] 4.49 10*6/uL 4.0 - 5.4 10*6/uL [facility] WBC (Bld) [#/Vol] 4.8 10*3/uL 3.6 - 11.0 10*3/uL [facility] MAGNESIUMon 05-26-2023 Magnesium [Mass/Vol] 2.1 mg/dL Normal 1.6-2.3 [facility] Comment on above: Performed By: #### U GERARDO, RTOX, UMAC #### Testing performed at [facility] [address] [place] [address] Magnesium [Mass/Vol] 2.1 mg/dL [facility] No Panel Informationon 05-26 [facility] RENAL FUNCTION PANELon 05-26 Albumin [Mass/Vol] 3.8 G/dl 3.5 - 5.0 G/dl [facility] Calcium [Mass/Vol] 9.0 mg/dL [facility] Chloride [Moles/Vol] 104 mmol/L [facility] Comment on above: Please note: Triglyc eride levels of 600mg/dL or higher may positively bias chloride results by approximately 2.1 mmol CO2 [Moles/Vol] 28 mmol/L [facility] Creatinine [Mass/Vol] 1.09 mg/dL [facility] GFR COMMENT Average GFR for 60-6 9 years old = 85. [facility] Comment on above: Chronic Kidney disea se, GFR = <60. Kidney failure, GFR = <15. The GFR estimate is not adjusted for extreme body surface area or acute process, nor has it been validated for women or ethnic groups other than and . GFR/1.73 sq M.predicted among blacks MDRD (S/P/Bld) [Vol rate/Area] 65 mL/min/{1.73_m2} ml/min/1.73sq .m [facility] GFR/1.73 sq M.predicted among non-blacks MDRD (S/P/Bld) [Vol rate/Area] 54 mL/min/{1.73_m2} ml/min/1.73sq .m [facility] Glucose post fast [Mass/Vol] 136 mg/dL High [facility] Comment on above: NORMAL <100 mg/dL PREDIABETES 101-126 mg/dL DIABETES 126 mg/dL or higher Interpretation and review of laboratory results Abnormal [facility] Phosphate [Mass/Vol] 5.6 mg/dL High [facility] Potassium [Moles/Vol] 3.3 mmol/L Low [facility] Sodium [Moles/Vol] 139 mmol/L [facility] Urea nitrogen [Mass/Vol] 25 mg/dL High [facility] RENAL PANEL,FASTINGon 2022 ALBUMIN 3.8 G/dl Normal 3.5-5.0 [facility] Comment on above: Performed By: #### U GERARDO, RTOX, UMAC #### Testing performed at [address] [address] Calcium [Mass/Vol] 9.0 mg/dL Normal 8.4-10.2 [facility] Comment on above: Performed By: #### U GERARDO, RTOX, UMAC #### Testing performed at [address] [address] Chloride [Moles/Vol] 104 mmol/L Normal 98-107 [facility] Comment on above: Result Comment: Hilary diaz note: Triglyceride levels of 600mg/dL or higher may positively bias chloride results by approximately 2.1 mmol Performed By: #### U GERARDO, RTOX, UMAC #### Testing performed at [address] [address] CO2 [Moles/Vol] 28 mmol/L Normal 22-30 [facility] Comment on above: Performed By: #### U GERARDO, RTOX, UMAC #### Testing performed at [address] [address] Creatinine [Mass/Vol] 1.09 mg/dL Normal 0.70-1.20 [facility] Comment on above: Performed By: #### U GERARDO, RTOX, UMAC #### Testing performed at [address] [address] EST. GFR, 65 ml/min/1.73sq.m [facility] Comment on above: Performed By: #### U GERARDO, RTOX, UMAC #### Testing performed at [address] [address] EST. GFR,Non 54 ml/min/1.73sq.m [facility] Comment on above: Performed By: #### U GERARDO, RTOX, UMAC #### Testing performed at [address] [address] GFR Information Average GFR for 60-6 9 years old = 85. Normal [facility] Comment on above: Result Comment: [employer] Kidney disease, GFR = <60. Kidney failure, GFR = <15. The GFR estimate is not adjusted for extreme body surface area or acute process, nor has it been validated for women or ethnic groups other than and . Performed By: #### U GERARDO, RTOX, UMAC #### Testing performed at [address] [address] Glucose [Mass/Vol] 136 mg/dL High 70-100 [facility] Comment on above: Result Comment: NORMAL <100 mg/dL PREDIABETES 101-126 mg/dL DIABETES 126 mg/dL or higher Performed By: #### U GERARDO, RTOX, UMAC #### Testing performed at [address] [address] PHOSPHOROUS 5.6 MG/DL High 2.5-4.5 [facility] Comment on above: Performed By: #### U GERARDO, RTOX, UMAC #### Testing performed at [address] [address] Potassium [Moles/Vol] 3.3 mmol/L Low 3.5-5.1 [facility] Comment on above: Performed By: #### U GERARDO, RTOX, UMAC #### Testing performed at [address] [address] Sodium [Moles/Vol] 139 mmol/L Normal 137-145 [facility] Comment on above: Performed By: #### U GERARDO, RTOX, UMAC #### Testing performed at [address] [address] Urea nitrogen [Mass/Vol] 25 mg/dL High 7-20 [facility] Comment on above: Performed By: #### U GERARDO, RTOX, UMAC #### Testing performed at [address] [address] CBCon 05-25-2023 ABSOLUTE BAS 0.0 10*3/uL Normal 0.0-0.2 [facility] Comment on above: Performed By: #### U GERARDO, RTOX, UMAC #### Testing performed at [address] [address] ABSOLUTE EOS 0.2 10*3/uL Normal 0.0-0.7 [facility] Comment on above: Performed By: #### U GERARDO, RTOX, UMAC #### Testing performed at [address] [address] ABSOLUTE NEUTROPHIL COUNT 2.7 10*3/uL Normal 1.4-6.5 [facility] Comment on above: Performed By: #### U GERARDO, RTOX, UMAC #### Testing performed at [address] [address] Basophils/100 WBC (Bld) 0.5 % Normal 0.0-2.0 [facility] Comment on above: Performed By: #### U GERARDO, RTOX, UMAC #### Testing performed at [address] [address] DTYPE AUTO DIFF Normal [facility] Comment on above: Performed By: #### U GERARDO, RTOX, UMAC #### Testing performed at [address] [address] Eosinophils/100 WBC (Bld) 4.9 % Normal 0.0-11.0 [facility] Comment on above: Performed By: #### U GERARDO, RTOX, UMAC #### Testing performed at [address] [address] Lymphocytes (Bld) [#/Vol] 1.2 10*3/uL Normal 1.2-3.4 [facility] Comment on above: Performed By: #### U GERARDO, RTOX, UMAC #### Testing performed at [address] [address] Lymphocytes/100 WBC (Bld) 25.3 % Normal 20.0-55.0 [facility] Comment on above: Performed By: #### U GERARDO, RTOX, UMAC #### Testing performed at [address] [address] Monocytes (Bld) [#/Vol] 0.4 10*3/uL Normal 0.0-0.7 [facility] Comment on above: Performed By: #### U GERARDO, RTOX, UMAC #### Testing performed at [address] [address] Monocytes/100 WBC (Bld) 9.6 % Normal 0.0-10.0 [facility] Comment on above: Performed By: #### U GERARDO, RTOX, UMAC #### Testing performed at [address] [address] Neutrophils/100 WBC (Bld) 59.7 % Normal 37.0-75.0 [facility] Comment on above: Performed By: #### U GERARDO, RTOX, UMAC #### Testing performed at [address] [address] Erythrocyte distribution width (RBC) [Ratio] 13.0 % Normal 11.5-14.5 [facility] Comment on above: Performed By: #### U GERARDO, RTOX, UMAC #### Testing performed at [address] [address] Hematocrit (Bld) [Volume fraction] 42.2 % Normal 36.0-48.0 [facility] Comment on above: Performed By: #### U GERARDO, RTOX, UMAC #### Testing performed at [address] [address] Hemoglobin (Bld) [Mass/Vol] 14.5 g/dL Normal 12.0-16.0 [facility] Comment on above: Performed By: #### U GERARDO, RTOX, UMAC #### Testing performed at [address] [address] MCH (RBC) [Entitic mass] 31.0 pg Normal 26.0-35.0 [facility] Comment on above: Performed By: #### U GERARDO, RTOX, UMAC #### Testing performed at [address] [address] MCHC (RBC) [Mass/Vol] 34.3 g/dL Normal 27.0-37.0 [facility] Comment on above: Performed By: #### U GERARDO, RTOX, UMAC #### Testing performed at [address] [address] MCV (RBC) [Entitic vol] 90.4 fL Normal 80.0-100.0 [facility] Comment on above: Performed By: #### U GERARDO, RTOX, UMAC #### Testing performed at [address] [address] Platelet mean volume (Bld) [Entitic vol] 9.2 fL Normal 7.4-11.0 [facility] Comment on above: Performed By: #### U GERARDO, RTOX, UMAC #### Testing performed at [address] [address] Platelets (Bld) [#/Vol] 105 10*3/uL Low 130-400 [facility] Comment on above: Performed By: #### U GERARDO, RTOX, UMAC #### Testing performed at [address] [address] RBC (Bld) [#/Vol] 4.67 10*6/uL Normal 4.0-5.4 [facility] Comment on above: Performed By: #### U GERARDO, RTOX, UMAC #### Testing performed at [address] [address] WBC (Bld) [#/Vol] 4.6 10*3/uL Normal 3.6-11.0 [facility] Comment on above: Performed By: #### U GERARDO, RTOX, UMAC #### Testing performed at [address] [address] CBC, EDIF, PLATELETon 2022 ABSOLUTE BASOPHIL COUNT 0.0 10*3/uL 0.0 - 0.2 10*3/uL [facility] Basophils/100 WBC (Bld) 0.5 % 0.0 - 2.0 % [facility] Differential cell count method Nom (Bld) AUTO DIFF % [facility] Eosinophils (Bld) [#/Vol] 0.2 10*3/uL 0.0 - 0.7 10*3/uL [facility] Eosinophils/100 WBC (Bld) 4.9 % 0.0 - 11.0 % [facility] Erythrocyte distribution width (RBC) [Ratio] 13.0 % 11.5 - 14.5 % [facility] Hematocrit (Bld) [Volume fraction] 42.2 % 36.0 - 48.0 % [facility] Hemoglobin (Bld) [Mass/Vol] 14.5 g/dL [facility] Interpretation and review of laboratory results Abnormal [facility] Lymphocytes (Bld) [#/Vol] 1.2 10*3/uL 1.2 - 3.4 10*3/uL [facility] Lymphocytes/100 WBC (Bld) 25.3 % 20.0 - 55.0 % [facility] MCH (RBC) [Entitic mass] 31.0 pg 26.0 - 35.0 PG [facility] MCHC (RBC) [Mass/Vol] 34.3 g/dL [facility] MCV (RBC) [Entitic vol] 90.4 fL [facility] Monocytes (Bld) [#/Vol] 0.4 10*3/uL 0.0 - 0.7 10*3/uL [facility] Monocytes/100 WBC (Bld) 9.6 % 0.0 - 10.0 % [facility] Neutrophils (Bld) [#/Vol] 2.7 10*3/uL 1.4 - 6.5 10*3/uL [facility] Neutrophils/100 WBC (Bld) 59.7 % 37.0 - 75.0 % [facility] Platelet mean volume (Bld) [Entitic vol] 9.2 fL [facility] Platelets (Bld) [#/Vol] 105 10*3/uL Low 130 - 400 10*3/uL [facility] RBC (Bld) [#/Vol] 4.67 10*6/uL 4.0 - 5.4 10*6/uL [facility] WBC (Bld) [#/Vol] 4.6 10*3/uL 3.6 - 11.0 10*3/uL [facility] CMP FASTINGon 05-25-2023 A:G RATIO 1.7 RATIO Normal [facility] Comment on above: Performed By: #### U GERARDO, RTOX, UMAC #### Testing performed at [address] [address] ALBUMIN 3.9 G/dl Normal 3.5-5.0 [facility] Comment on above: Performed By: #### U GERARDO, RTOX, UMAC #### Testing performed at [address] [address] ALP [Catalytic activity/Vol] 70 U/L Normal 38-126 [facility] Comment on above: Performed By: #### U GERARDO, RTOX, UMAC #### Testing performed at [address] [address] ALT [Catalytic activity/Vol] 52 U/L High <35 [facility] Comment on above: Performed By: #### U GERARDO, RTOX, UMAC #### Testing performed at [address] [address] AST [Catalytic activity/Vol] 45 U/L High 14-36 [facility] Comment on above: Performed By: #### U GERARDO, RTOX, UMAC #### Testing performed at [address] [address] Bilirubin [Mass/Vol] 1.2 mg/dL Normal 0.2-1.3 [facility] Comment on above: Performed By: #### U GERARDO, RTOX, UMAC #### Testing performed at [address] [address] Calcium [Mass/Vol] 8.7 mg/dL Normal 8.4-10.2 [facility] Comment on above: Performed By: #### U GERARDO, RTOX, UMAC #### Testing performed at [address] [address] Chloride [Moles/Vol] 102 mmol/L Normal 98-107 [facility] Comment on above: Result Comment: Hilary diaz note: Triglyceride levels of 600mg/dL or higher may positively bias chloride results by approximately 2.1 mmol Performed By: #### U GERARDO, RTOX, UMAC #### Testing performed at [address] [address] CO2 [Moles/Vol] 29 mmol/L Normal 22-30 [facility] Comment on above: Performed By: #### U GERARDO, RTOX, UMAC #### Testing performed at [address] [address] Creatinine [Mass/Vol] 0.91 mg/dL Normal 0.70-1.20 [facility] Comment on above: Performed By: #### U GERARDO, RTOX, UMAC #### Testing performed at [address] [address] EST. GFR, 81 ml/min/1.73sq.m [facility] Comment on above: Performed By: #### U GERARDO, RTOX, UMAC #### Testing performed at [address] [address] EST. GFR,Non 67 ml/min/1.73sq.m [facility] Comment on above: Performed By: #### U GERARDO, RTOX, UMAC #### Testing performed at [address] [address] GFR Information Average GFR for 60-6 9 years old = 85. Normal [facility] Comment on above: Result Comment: [employer] Kidney disease, GFR = <60. Kidney failure, GFR = <15. The GFR estimate is not adjusted for extreme body surface area or acute process, nor has it been validated for women or ethnic groups other than and . Performed By: #### U GERARDO, RTOX, UMAC #### Testing performed at [address] [address] Glucose [Mass/Vol] 141 mg/dL High 70-100 [facility] Comment on above: Result Comment: NORMAL <100 mg/dL PREDIABETES 101-126 mg/dL DIABETES 126 mg/dL or higher Performed By: #### U GERARDO, RTOX, UMAC #### Testing performed at [address] [address] Potassium [Moles/Vol] 3.2 mmol/L Low 3.5-5.1 [facility] Comment on above: Performed By: #### U GERARDO, RTOX, UMAC #### Testing performed at [address] [address] Protein [Mass/Vol] 6.2 g/dL Low 6.3-8.2 [facility] Comment on above: Performed By: #### U GERARDO, RTOX, UMAC #### Testing performed at [address] [address] Sodium [Moles/Vol] 139 mmol/L Normal 137-145 [facility] Comment on above: Performed By: #### U GERARDO, RTOX, UMAC #### Testing performed at [address] [address] Urea nitrogen [Mass/Vol] 21 mg/dL High 7-20 [facility] Comment on above: Performed By: #### U GERARDO, RTOX, UMAC #### Testing performed at [address] [address] COMPREHENSIVE METABOLIC PANE José 05-25-2023 Albumin [Mass/Vol] 3.9 G/dl 3.5 - 5.0 G/dl [facility] Albumin/Globulin [Mass ratio] 1.7 {ratio} RATIO [facility] ALP [Catalytic activity/Vol] 70 U/L [facility] ALT [Catalytic activity/Vol] 52 U/L High NINF [facility] AST [Catalytic activity/Vol] 45 U/L High [facility] Bilirubin [Mass/Vol] 1.2 mg/dL [facility] Calcium [Mass/Vol] 8.7 mg/dL [facility] Chloride [Moles/Vol] 102 mmol/L [facility] Comment on above: Please note: Triglyc eride levels of 600mg/dL or higher may positively bias chloride results by approximately 2.1 mmol CO2 [Moles/Vol] 29 mmol/L [facility] Creatinine [Mass/Vol] 0.91 mg/dL [facility] GFR COMMENT Average GFR for 60-6 9 years old = 85. [facility] Comment on above: Chronic Kidney disea se, GFR = <60. Kidney failure, GFR = <15. The GFR estimate is not adjusted for extreme body surface area or acute process, nor has it been validated for women or ethnic groups other than and . GFR/1.73 sq M.predicted among blacks MDRD (S/P/Bld) [Vol rate/Area] 81 mL/min/{1.73_m2} ml/min/1.73sq .m [facility] GFR/1.73 sq M.predicted among non-blacks MDRD (S/P/Bld) [Vol rate/Area] 67 mL/min/{1.73_m2} ml/min/1.73sq .m [facility] Glucose post fast [Mass/Vol] 141 mg/dL High [facility] Comment on above: NORMAL <100 mg/dL PREDIABETES 101-126 mg/dL DIABETES 126 mg/dL or higher Potassium [Moles/Vol] 3.2 mmol/L Low [facility] Protein [Mass/Vol] 6.2 g/dL Low [facility] Sodium [Moles/Vol] 139 mmol/L [facility] Urea nitrogen [Mass/Vol] 21 mg/dL High [facility] MAGNESIUMon 05-25-2023 Magnesium [Mass/Vol] 1.9 mg/dL Normal 1.6-2.3 [facility] Comment on above: Performed By: #### U GERARDO, RTOX, UMAC #### Testing performed at [place] [id number] Magnesium [Mass/Vol] 1.9 mg/dL [facility] No Panel Informationon 05-25 Interpretation and review of laboratory results Abnormal [facility] PHOSPHATE, INORGANICon 05-25 Phosphate [Mass/Vol] 4.8 mg/dL High [facility] PHOSPHOROUSon 05-25-2023 PHOSPHOROUS 4.8 MG/DL High 2.5-4.5 [facility] Comment on above: Performed By: #### U GERARDO, RTOX, UMAC #### Testing performed at [address] [address] US RENAL ARTERIESon 05-25-20 US RENAL ARTERIES EXAM: US RENAL ARTERIES HISTORY: HTN emergency, hypertension, difficult to control. COMPARISON: CT from 10/09/2022 TECHNIQUE: Sonographic evaluation of the kidneys and renal arteries as well as adjacent abdominal aorta is performed with grayscale and color Doppler as well as spectral analysis in an effort to evaluate for renal artery stenosis as a possible etiology of the patient's hypertension. FINDINGS: The abdominal aorta demonstrates velocities of 73/26 cm/s with multiphasic waveforms and no evidence of aneurysm. The inferior vena cava is patent. The right kidney measures 9.7 cm in length with a cortical thickness of 11 mm. There is no hydronephrosis or mass. Parenchymal resistive indices range between 0.60 and 0.65. The right renal artery demonstrates proximal velocities of 143/50, midportion 101/56 and distally 106/79 cm/s with a renal aortic ratio of 2.0. The left kidney measures 10.1 cm in length with a cortical thickness of 12 mm. Parenchymal resistive indices range between 0.62 and 0.84. The left renal artery demonstrates velocities in the proximal aspect of 64/25, midportion 84/31 and distally 73/17 cm/s with a renal aortic ratio of 1.2. IMPRESSION: 1. Bilaterally there is no evidence of a significant renal artery stenosis estimated in the 0% to 59% range. 2. Bilaterally there is no evidence of renal cortical thinning or hydronephrosis. Normal [facility] US Renal arteryon 05-25-2023 IMPRESSION: 1. Bilaterally there is no evidence of a significant renal artery stenosis estimated in the 0% to 59% range. 2. Bilaterally there is no evidence of renal cortical thinning or hydronephrosis. RADIOLOGY EXAM: US RENAL ARTERIES HISTORY: HTN emergency, hypertension, difficult to control. COMPARISON: CT from 10/09/2022 TECHNIQUE: Sonographic evaluation of the kidneys and renal arteries as well as adjacent abdominal aorta is performed with grayscale and color Doppler as well as spectral analysis in an effort to evaluate for renal artery stenosis as a possible etiology of the patient's hypertension. FINDINGS: The abdominal aorta demonstrates velocities of 73/26 cm/s with multiphasic waveforms and no evidence of aneurysm. The inferior vena cava is patent. The right kidney measures 9.7 cm in length with a cortical thickness of 11 mm. There is no hydronephrosis or mass. Parenchymal resistive indices range between 0.60 and 0.65. The right renal artery demonstrates proximal velocities of 143/50, midportion 101/56 and distally 106/79 cm/s with a renal aortic ratio of 2.0. The left kidney measures 10.1 cm in length with a cortical thickness of 12 mm. Parenchymal resistive indices range between 0.62 and 0.84. The left renal artery demonstrates velocities in the proximal aspect of 64/25, midportion 84/31 and distally 73/17 cm/s with a renal aortic ratio of 1.2. RADIOLOGY Adam Gilman M D - 05/25/2023 EXAM: US RENAL ARTERIES HISTORY: HTN emergency, hypertension, difficult to control. COMPARISON: CT from 10/09/2022 TECHNIQUE: Sonographic evaluation of the kidneys and renal arteries as well as adjacent abdominal aorta is performed with grayscale and color Doppler as well as spectral analysis in an effort to evaluate for renal artery stenosis as a possible etiology of the patient's hypertension. FINDINGS: The abdominal aorta demonstrates velocities of 73/26 cm/s with multiphasic waveforms and no evidence of aneurysm. The inferior vena cava is patent. The right kidney measures 9.7 cm in length with a cortical thickness of 11 mm. There is no hydronephrosis or mass. Parenchymal resistive indices range between 0.60 and 0.65. The right renal artery demonstrates proximal velocities of 143/50, midportion 101/56 and distally 106/79 cm/s with a renal aortic ratio of 2.0. The left kidney measures 10.1 cm in length with a cortical thickness of 12 mm. Parenchymal resistive indices range between 0.62 and 0.84. The left renal artery demonstrates velocities in the proximal aspect of 64/25, midportion 84/31 and distally 73/17 cm/s with a renal aortic ratio of 1.2. IMPRESSION IMPRESSION: 1. Bilaterally there is no evidence of a significant renal artery stenosis estimated in the 0% to 59% range. 2. Bilaterally there is no evidence of renal cortical thinning or hydronephrosis. [facility] US Renal arteryOrdered By: Moisés Gilman on 05-25-2023 [facility] Work Phone: CBCon 05-24-2023 Basophils/100 WBC (Bld) 1 % Normal 0.0-2.0 [facility] Comment on above: Performed By: #### U GERARDO, RTOX, UMAC #### Testing performed at [address] [address] DTYPE AUTO DIFF Normal [facility] Comment on above: Performed By: #### U GERARDO, RTOX, UMAC #### Testing performed at [address] [address] Eosinophils/100 WBC (Bld) 5 % Normal 0.0-11.0 [facility] Comment on above: Performed By: #### U GERARDO, RTOX, UMAC #### Testing performed at [address] [address] Lymphocytes/100 WBC (Bld) 19 % Low 20.0-55.0 [facility] Comment on above: Performed By: #### U GERARDO, RTOX, UMAC #### Testing performed at [address] [address] Monocytes/100 WBC (Bld) 8 % Normal 0.0-10.0 [facility] Comment on above: Performed By: #### U GERARDO, RTOX, UMAC #### Testing performed at [address] [address] Neutrophils/100 WBC (Bld) 67 % Normal 37.0-75.0 [facility] Comment on above: Performed By: #### U GERARDO, RTOX, UMAC #### Testing performed at [address] [address] Erythrocyte distribution width (RBC) [Ratio] 13.4 % Normal 11.5-14.5 [facility] Comment on above: Performed By: #### U GERARDO, RTOX, UMAC #### Testing performed at [address] [address] Hematocrit (Bld) [Volume fraction] 44.4 % Normal 36.0-48.0 [facility] Comment on above: Performed By: #### U GERARDO, RTOX, UMAC #### Testing performed at [address] [address] Hemoglobin (Bld) [Mass/Vol] 14.9 g/dL Normal 12.0-16.0 [facility] Comment on above: Performed By: #### U GERARDO, RTOX, UMAC #### Testing performed at [address] [address] MCH (RBC) [Entitic mass] 30.5 pg Normal 26.0-35.0 [facility] Comment on above: Performed By: #### U GERARDO, RTOX, UMAC #### Testing performed at [address] [address] MCHC (RBC) [Mass/Vol] 33.4 g/dL Normal 27.0-37.0 [facility] Comment on above: Performed By: #### U GERARDO, RTOX, UMAC #### Testing performed at [address] [address] MCV (RBC) [Entitic vol] 91.1 fL Normal 80.0-100.0 [facility] Comment on above: Performed By: #### U GERARDO, RTOX, UMAC #### Testing performed at [address] [address] Platelet mean volume (Bld) [Entitic vol] 9.1 fL Normal 7.4-11.0 [facility] Comment on above: Performed By: #### U GERARDO, RTOX, UMAC #### Testing performed at [address] [address] Platelets (Bld) [#/Vol] 107 10*3/uL Low 130-400 [facility] Comment on above: Performed By: #### U GERARDO, RTOX, UMAC #### Testing performed at [address] [address] RBC (Bld) [#/Vol] 4.87 10*6/uL Normal 4.0-5.4 [facility] Comment on above: Performed By: #### U GERARDO, RTOX, UMAC #### Testing performed at [address] [address] WBC (Bld) [#/Vol] 4.5 10*3/uL Normal 3.6-11.0 [facility] Comment on above: Performed By: #### U GERARDO, RTOX, UMAC #### Testing performed at [address] [address] CBC, EDIF, PLATELETon 2022 Basophils/100 WBC (Bld) 1 % 0.0 - 2.0 % [facility] Differential cell count method Nom (Bld) AUTO DIFF % [facility] Eosinophils/100 WBC (Bld) 5 % 0.0 - 11.0 % [facility] Erythrocyte distribution width (RBC) [Ratio] 13.4 % 11.5 - 14.5 % [facility] Hematocrit (Bld) [Volume fraction] 44.4 % 36.0 - 48.0 % [facility] Hemoglobin (Bld) [Mass/Vol] 14.9 g/dL [facility] Interpretation and review of laboratory results Abnormal [facility] Lymphocytes/100 WBC (Bld) 19 % Low 20.0 - 55.0 % [facility] MCH (RBC) [Entitic mass] 30.5 pg 26.0 - 35.0 PG [facility] MCHC (RBC) [Mass/Vol] 33.4 g/dL [facility] MCV (RBC) [Entitic vol] 91.1 fL [facility] Monocytes/100 WBC (Bld) 8 % 0.0 - 10.0 % [facility] Neutrophils/100 WBC (Bld) 67 % 37.0 - 75.0 % [facility] Platelet mean volume (Bld) [Entitic vol] 9.1 fL [facility] Platelets (Bld) [#/Vol] 107 10*3/uL Low 130 - 400 10*3/uL [facility] RBC (Bld) [#/Vol] 4.87 10*6/uL 4.0 - 5.4 10*6/uL [facility] WBC (Bld) [#/Vol] 4.5 10*3/uL 3.6 - 11.0 10*3/uL [facility] CMP FASTINGon 05-24-2023 A:G RATIO 1.8 RATIO Normal [facility] Comment on above: Performed By: #### U GERARDO, RTOX, UMAC #### Testing performed at [address] [address] ALBUMIN 4.0 G/dl Normal 3.5-5.0 [facility] Comment on above: Performed By: #### U GERARDO, RTOX, UMAC #### Testing performed at [address] [address] ALP [Catalytic activity/Vol] 81 U/L Normal 38-126 [facility] Comment on above: Performed By: #### U GERARDO, RTOX, UMAC #### Testing performed at [address] [address] ALT [Catalytic activity/Vol] 55 U/L High <35 [facility] Comment on above: Performed By: #### U GERARDO, RTOX, UMAC #### Testing performed at [address] [address] AST [Catalytic activity/Vol] 44 U/L High 14-36 [facility] Comment on above: Performed By: #### U GERARDO, RTOX, UMAC #### Testing performed at [address] [address] Bilirubin [Mass/Vol] 1.2 mg/dL Normal 0.2-1.3 [facility] Comment on above: Performed By: #### U GERARDO, RTOX, UMAC #### Testing performed at [address] [address] Calcium [Mass/Vol] 9.1 mg/dL Normal 8.4-10.2 [facility] Comment on above: Performed By: #### U GERARDO, RTOX, UMAC #### Testing performed at [address] [address] Chloride [Moles/Vol] 104 mmol/L Normal 98-107 [facility] Comment on above: Result Comment: Hilary diaz note: Triglyceride levels of 600mg/dL or higher may positively bias chloride results by approximately 2.1 mmol Performed By: #### U GERARDO, RTOX, UMAC #### Testing performed at [address] [address] CO2 [Moles/Vol] 26 mmol/L Normal 22-30 [facility] Comment on above: Performed By: #### U GERARDO, RTOX, UMAC #### Testing performed at [address] [address] Creatinine [Mass/Vol] 0.85 mg/dL Normal 0.70-1.20 [facility] Comment on above: Performed By: #### U GERARDO, RTOX, UMAC #### Testing performed at [address] [address] EST. GFR, 87 ml/min/1.73sq.m Normal [facility] Comment on above: Performed By: #### U GERARDO, RTOX, UMAC #### Testing performed at [address] [address] EST. GFR,Non 72 ml/min/1.73sq.m Normal [facility] Comment on above: Performed By: #### U GERARDO, RTOX, UMAC #### Testing performed at [address] [address] GFR Information Average GFR for 60-6 9 years old = 85. Normal [facility] Comment on above: Result Comment: [employer] romelia Kidney disease, GFR = <60. Kidney failure, GFR = <15. The GFR estimate is not adjusted for extreme body surface area or acute process, nor has it been validated for women or ethnic groups other than and . Performed By: #### U GERARDO, RTOX, UMAC #### Testing performed at [address] [address] Glucose [Mass/Vol] 137 mg/dL High 70-100 [facility] Comment on above: Result Comment: NORMAL <100 mg/dL PREDIABETES 101-126 mg/dL DIABETES 126 mg/dL or higher Performed By: #### U GERARDO, RTOX, UMAC #### Testing performed at [address] [address] Potassium [Moles/Vol] 3.6 mmol/L Normal 3.5-5.1 [facility] Comment on above: Performed By: #### U GERARDO, RTOX, UMAC #### Testing performed at [address] [address] Protein [Mass/Vol] 6.2 g/dL Low 6.3-8.2 [facility] Comment on above: Performed By: #### U GERARDO, RTOX, UMAC #### Testing performed at [address] [address] Sodium [Moles/Vol] 137 mmol/L Normal 137-145 [facility] Comment on above: Performed By: #### U GERARDO, RTOX, UMAC #### Testing performed at [address] [address] Urea nitrogen [Mass/Vol] 17 mg/dL Normal 7-20 [facility] Comment on above: Performed By: #### U GERARDO, RTOX, UMAC #### Testing performed at [facility] [address] [place] [address] COMPREHENSIVE METABOLIC PANE José 05-24-2023 Albumin [Mass/Vol] 4.0 G/dl 3.5 - 5.0 G/dl [facility] Albumin/Globulin [Mass ratio] 1.8 {ratio} RATIO [facility] ALP [Catalytic activity/Vol] 81 U/L [facility] ALT [Catalytic activity/Vol] 55 U/L High NINF [facility] AST [Catalytic activity/Vol] 44 U/L High [facility] Bilirubin [Mass/Vol] 1.2 mg/dL [facility] Calcium [Mass/Vol] 9.1 mg/dL [facility] Chloride [Moles/Vol] 104 mmol/L [facility] Comment on above: Please note: Triglyc eride levels of 600mg/dL or higher may positively bias chloride results by approximately 2.1 mmol CO2 [Moles/Vol] 26 mmol/L [facility] Creatinine [Mass/Vol] 0.85 mg/dL [facility] GFR COMMENT Average GFR for 60-6 9 years old = 85. [facility] Comment on above: Chronic Kidney disea se, GFR = <60. Kidney failure, GFR = <15. The GFR estimate is not adjusted for extreme body surface area or acute process, nor has it been validated for women or ethnic groups other than and . GFR/1.73 sq M.predicted among blacks MDRD (S/P/Bld) [Vol rate/Area] 87 mL/min/{1.73_m2} ml/min/1.73sq .m [facility] GFR/1.73 sq M.predicted among non-blacks MDRD (S/P/Bld) [Vol rate/Area] 72 mL/min/{1.73_m2} ml/min/1.73sq .m [facility] Glucose post fast [Mass/Vol] 137 mg/dL High [facility] Comment on above: NORMAL <100 mg/dL PREDIABETES 101-126 mg/dL DIABETES 126 mg/dL or higher Potassium [Moles/Vol] 3.6 mmol/L [facility] Protein [Mass/Vol] 6.2 g/dL Low [facility] Sodium [Moles/Vol] 137 mmol/L [facility] Urea nitrogen [Mass/Vol] 17 mg/dL [facility] CORTISOLon 05-24-2023 CORTISOL 4.4 Low [facility] Comment on above: Result Comment: Refe rence range: 6.2 to 19.4 Unit: ug/dL (NOTE) Please Note: The reference interval and flagging for this test is for an AM collection. If this is a PM collection please use: Cortisol PM: 2.3-11.9 PERFORMED AT [facility] Performed By: #### U GERARDO RTSARTHAK, UMAC #### Testing performed at [address] [address] Cortisol [Mass/Vol] 4.4 ug/dL Low [facility] Comment on above: Reference range: 6.2 to 19.4 Unit: ug/dL (NOTE) Please Note: The reference interval and flagging for this test is for an AM collection. If this is a PM collection please use: Cortisol PM: 2.3-11.9 PERFORMED AT [facility] Interpretation and review of laboratory results Abnormal [facility] MAGNESIUMon 05-24-2023 Magnesium [Mass/Vol] 2.1 mg/dL Normal 1.6-2.3 [facility] Comment on above: Performed By: #### U GERARDO RTSARTHAK, UMAC #### Testing performed at [address] [address] Magnesium [Mass/Vol] 2.1 mg/dL [facility] No Panel Informationon 05-24 Interpretation and review of laboratory results Abnormal [facility] PHOSPHATE, INORGANICon 05-24 Phosphate [Mass/Vol] 5.9 mg/dL High [facility] PHOSPHOROUSon 05-24-2023 PHOSPHOROUS 5.9 MG/DL High 2.5-4.5 [facility] Comment on above: Performed By: #### U GERARDO, RTOX, UMAC #### Testing performed at [address] [address] 25 0H VITAMIN D LEVELon 25 0H VITAMIN D LEVEL 36.3 NG/ML Normal [facility] Comment on above: Result Comment: DEFICIENT <20 NG/ML INSUFFICIENT 20-<30 NG/ML SUFFICIENT 30-100 NG/ML POTENTIAL TOXICITY >100 NG/ML Performed By: #### V ITD ####Testing performed at [address] [address] CBCon 05-23-2023 ABSOLUTE BAS 0.0 10*3/uL Normal 0.0-0.2 [facility] Comment on above: Performed By: #### U GERARDO, RTOX, UMAC #### Testing performed at [address] [address] ABSOLUTE EOS 0.3 10*3/uL Normal 0.0-0.7 [facility] Comment on above: Performed By: #### U GERARDO, RTOX, UMAC #### Testing performed at [address] [address] ABSOLUTE NEUTROPHIL COUNT 2.5 10*3/uL Normal 1.4-6.5 [facility] Comment on above: Performed By: #### U GERARDO, RTOX, UMAC #### Testing performed at [address] [address] Basophils/100 WBC (Bld) 1.1 % Normal 0.0-2.0 [facility] Comment on above: Performed By: #### U GERARDO, RTOX, UMAC #### Testing performed at [address] [address] DTYPE AUTO DIFF Normal [facility] Comment on above: Performed By: #### U GERARDO, RTOX, UMAC #### Testing performed at [address] [address] Eosinophils/100 WBC (Bld) 6.6 % Normal 0.0-11.0 [facility] Comment on above: Performed By: #### U GERARDO, RTOX, UMAC #### Testing performed at [address] [address] Lymphocytes (Bld) [#/Vol] 1.2 10*3/uL Normal 1.2-3.4 [facility] Comment on above: Performed By: #### U GERARDO, RTOX, UMAC #### Testing performed at [address] [address] Lymphocytes/100 WBC (Bld) 27.6 % Normal 20.0-55.0 [facility] Comment on above: Performed By: #### U GERARDO, RTOX, UMAC #### Testing performed at [address] [address] Monocytes (Bld) [#/Vol] 0.3 10*3/uL Normal 0.0-0.7 [facility] Comment on above: Performed By: #### U GERARDO, RTOX, UMAC #### Testing performed at [address] [address] Monocytes/100 WBC (Bld) 7.6 % Normal 0.0-10.0 [facility] Comment on above: Performed By: #### U GERARDO, RTOX, UMAC #### Testing performed at [address] [address] Neutrophils/100 WBC (Bld) 57.1 % Normal 37.0-75.0 [facility] Comment on above: Performed By: #### U GERARDO, RTOX, UMAC #### Testing performed at [address] [address] Erythrocyte distribution width (RBC) [Ratio] 13.0 % Normal 11.5-14.5 [facility] Comment on above: Performed By: #### U GERARDO, RTOX, UMAC #### Testing performed at [address] [address] Hematocrit (Bld) [Volume fraction] 42.2 % Normal 36.0-48.0 [facility] Comment on above: Performed By: #### U GERARDO, RTOX, UMAC #### Testing performed at [address] [address] Hemoglobin (Bld) [Mass/Vol] 14.5 g/dL Normal 12.0-16.0 [facility] Comment on above: Performed By: #### U GERARDO, RTOX, UMAC #### Testing performed at [address] [address] MCH (RBC) [Entitic mass] 31.1 pg Normal 26.0-35.0 [facility] Comment on above: Performed By: #### U GERARDO, RTOX, UMAC #### Testing performed at [address] [address] MCHC (RBC) [Mass/Vol] 34.4 g/dL Normal 27.0-37.0 [facility] Comment on above: Performed By: #### U GERARDO, RTOX, UMAC #### Testing performed at [address] [address] MCV (RBC) [Entitic vol] 90.4 fL Normal 80.0-100.0 [facility] Comment on above: Performed By: #### U GERARDO, RTOX, UMAC #### Testing performed at [address] [address] Platelet mean volume (Bld) [Entitic vol] 9.3 fL Normal 7.4-11.0 [facility] Comment on above: Performed By: #### U GERARDO, RTOX, UMAC #### Testing performed at [address] [address] Platelets (Bld) [#/Vol] 109 10*3/uL Low 130-400 [facility] Comment on above: Performed By: #### U GERARDO, RTOX, UMAC #### Testing performed at [address] [address] RBC (Bld) [#/Vol] 4.67 10*6/uL Normal 4.0-5.4 [facility] Comment on above: Performed By: #### U GERARDO, RTOX, UMAC #### Testing performed at [address] [address] WBC (Bld) [#/Vol] 4.3 10*3/uL Normal 3.6-11.0 [facility] Comment on above: Performed By: #### U GERARDO, RTOX, UMAC #### Testing performed at [address] [address] CBC, EDIF, PLATELETon 2022 ABSOLUTE BASOPHIL COUNT 0.0 10*3/uL 0.0 - 0.2 10*3/uL [facility] Basophils/100 WBC (Bld) 1.1 % 0.0 - 2.0 % [facility] Differential cell count method Nom (Bld) AUTO DIFF % [facility] Eosinophils (Bld) [#/Vol] 0.3 10*3/uL 0.0 - 0.7 10*3/uL [facility] Eosinophils/100 WBC (Bld) 6.6 % 0.0 - 11.0 % [facility] Erythrocyte distribution width (RBC) [Ratio] 13.0 % 11.5 - 14.5 % [facility] Hematocrit (Bld) [Volume fraction] 42.2 % 36.0 - 48.0 % [facility] Hemoglobin (Bld) [Mass/Vol] 14.5 g/dL [facility] Interpretation and review of laboratory results Abnormal [facility] Lymphocytes (Bld) [#/Vol] 1.2 10*3/uL 1.2 - 3.4 10*3/uL [facility] Lymphocytes/100 WBC (Bld) 27.6 % 20.0 - 55.0 % [facility] MCH (RBC) [Entitic mass] 31.1 pg 26.0 - 35.0 PG [facility] MCHC (RBC) [Mass/Vol] 34.4 g/dL [facility] MCV (RBC) [Entitic vol] 90.4 fL [facility] Monocytes (Bld) [#/Vol] 0.3 10*3/uL 0.0 - 0.7 10*3/uL [facility] Monocytes/100 WBC (Bld) 7.6 % 0.0 - 10.0 % [facility] Neutrophils (Bld) [#/Vol] 2.5 10*3/uL 1.4 - 6.5 10*3/uL [facility] Neutrophils/100 WBC (Bld) 57.1 % 37.0 - 75.0 % [facility] Platelet mean volume (Bld) [Entitic vol] 9.3 fL [facility] Platelets (Bld) [#/Vol] 109 10*3/uL Low 130 - 400 10*3/uL [facility] RBC (Bld) [#/Vol] 4.67 10*6/uL 4.0 - 5.4 10*6/uL [facility] WBC (Bld) [#/Vol] 4.3 10*3/uL 3.6 - 11.0 10*3/uL [facility] CMP FASTINGon 05-23-2023 A:G RATIO 2.0 RATIO Normal [facility] Comment on above: Performed By: #### U GERARDO, RTOX, UMAC #### Testing performed at [address] [address] ALBUMIN 4.3 G/dl Normal 3.5-5.0 [facility] Comment on above: Performed By: #### U GERARDO, RTOX, UMAC #### Testing performed at [address] [address] ALP [Catalytic activity/Vol] 94 U/L Normal 38-126 [facility] Comment on above: Performed By: #### U GERARDO, RTOX, UMAC #### Testing performed at [address] [address] ALT [Catalytic activity/Vol] 57 U/L High <35 [facility] Comment on above: Performed By: #### U GERARDO, RTOX, UMAC #### Testing performed at [address] [address] AST [Catalytic activity/Vol] 48 U/L High 14-36 [facility] Comment on above: Performed By: #### U GERARDO, RTOX, UMAC #### Testing performed at [address] [address] Bilirubin [Mass/Vol] 0.9 mg/dL Normal 0.2-1.3 [facility] Comment on above: Performed By: #### U GERARDO, RTOX, UMAC #### Testing performed at [address] [address] Calcium [Mass/Vol] 8.9 mg/dL Normal 8.4-10.2 [facility] Comment on above: Performed By: #### U GERARDO, RTOX, UMAC #### Testing performed at [address] [address] Chloride [Moles/Vol] 106 mmol/L Normal 98-107 [facility] Comment on above: Result Comment: Hilary diaz note: Triglyceride levels of 600mg/dL or higher may positively bias chloride results by approximately 2.1 mmol Performed By: #### U GERARDO, RTOX, UMAC #### Testing performed at [address] [address] CO2 [Moles/Vol] 25 mmol/L Normal 22-30 [facility] Comment on above: Performed By: #### U GERARDO, RTOX, UMAC #### Testing performed at [address] [address] Creatinine [Mass/Vol] 0.70 mg/dL Normal 0.70-1.20 [facility] Comment on above: Performed By: #### U GERARDO, RTOX, UMAC #### Testing performed at [address] [address] EST. GFR, 109 ml/min/1.73sq.m [facility] Comment on above: Performed By: #### U GERARDO, RTOX, UMAC #### Testing performed at [address] [address] EST. GFR,Non 90 ml/min/1.73sq.m [facility] Comment on above: Performed By: #### U GERARDO, RTOX, UMAC #### Testing performed at [address] [address] GFR Information Average GFR for 60-6 9 years old = 85. Normal [facility] Comment on above: Result Comment: [employer] romelia Kidney disease, GFR = <60. Kidney failure, GFR = <15. The GFR estimate is not adjusted for extreme body surface area or acute process, nor has it been validated for women or ethnic groups other than and . Performed By: #### U GERARDO, RTOX, UMAC #### Testing performed at [address] [address] Glucose [Mass/Vol] 115 mg/dL High 70-100 [facility] Comment on above: Result Comment: NORMAL <100 mg/dL PREDIABETES 101-126 mg/dL DIABETES 126 mg/dL or higher Performed By: #### U GERARDO, RTOX, UMAC #### Testing performed at [address] [address] Potassium [Moles/Vol] 3.6 mmol/L Normal 3.5-5.1 [facility] Comment on above: Performed By: #### U GERARDO, RTOX, UMAC #### Testing performed at [address] [address] Protein [Mass/Vol] 6.5 g/dL Normal 6.3-8.2 [facility] Comment on above: Performed By: #### U GERARDO, RTOX, UMAC #### Testing performed at [address] [address] Sodium [Moles/Vol] 142 mmol/L Normal 137-145 [facility] Comment on above: Performed By: #### U GERARDO, RTOX, UMAC #### Testing performed at [address] [address] Urea nitrogen [Mass/Vol] 16 mg/dL Normal 7-20 [facility] Comment on above: Performed By: #### U GERARDO, RTOX, UMAC #### Testing performed at [address] [address] COMPREHENSIVE METABOLIC PANE José 05-23-2023 Albumin [Mass/Vol] 4.3 G/dl 3.5 - 5.0 G/dl [facility] Albumin/Globulin [Mass ratio] 2.0 {ratio} RATIO [facility] ALP [Catalytic activity/Vol] 94 U/L [facility] ALT [Catalytic activity/Vol] 57 U/L High [facility] AST [Catalytic activity/Vol] 48 U/L High [facility] Bilirubin [Mass/Vol] 0.9 mg/dL [facility] Calcium [Mass/Vol] 8.9 mg/dL [facility] Chloride [Moles/Vol] 106 mmol/L [facility] Comment on above: Please note: Triglyc eride levels of 600mg/dL or higher may positively bias chloride results by approximately 2.1 mmol CO2 [Moles/Vol] 25 mmol/L [facility] Creatinine [Mass/Vol] 0.70 mg/dL [facility] GFR COMMENT Average GFR for 60-6 9 years old = 85. [facility] Comment on above: Chronic Kidney disea se, GFR = <60. Kidney failure, GFR = <15. The GFR estimate is not adjusted for extreme body surface area or acute process, nor has it been validated for women or ethnic groups other than and . GFR/1.73 sq M.predicted among blacks MDRD (S/P/Bld) [Vol rate/Area] 109 mL/min/{1.73_m2} ml/min/1.73sq .m [facility] GFR/1.73 sq M.predicted among non-blacks MDRD (S/P/Bld) [Vol rate/Area] 90 mL/min/{1.73_m2} ml/min/1.73sq .m [facility] Glucose post fast [Mass/Vol] 115 mg/dL High [facility] Comment on above: NORMAL <100 mg/dL PREDIABETES 101-126 mg/dL DIABETES 126 mg/dL or higher Interpretation and review of laboratory results Abnormal [facility] Potassium [Moles/Vol] 3.6 mmol/L [facility] Protein [Mass/Vol] 6.5 g/dL [facility] Sodium [Moles/Vol] 142 mmol/L [facility] Urea nitrogen [Mass/Vol] 16 mg/dL [facility] HEMOGLOBIN A1Con 05-23-2023 Glucose [Mass/Vol] 97 mg/dL Normal [facility] Comment on above: Performed By: #### U GERARDO, RTOX, UMAC #### Testing performed at [address] [address] HbA1c (Bld) [Mass fraction] 5.0 % Normal 0-6 [facility] Comment on above: Result Comment: NORMAL <5.7% PREDIABETES 5.7-6.4% DIABETES 6.5% OR HIGHER Performed By: #### U GERARDO, RTOX, UMAC #### Testing performed at [address] [address] Glucose [Mass/Vol] 97 mg/dL [facility] HbA1c (Bld) [Mass fraction] 5.0 % 0 - 6 % [facility] Comment on above: NORMAL <5.7% PREDIABETES 5.7-6.4% DIABETES 6.5% OR HIGHER [facility] LIPID PANEL W CALCULATED LDL on 05-23-2023 Cholesterol [Mass/Vol] 228 mg/dL High [facility] Cholesterol in HDL [Mass/Vol] 43 mg/dL [facility] Cholesterol in LDL [Mass/Vol] 159 mg/dL MG/DL [facility] Cholesterol in VLDL [Mass/Vol] 26 mg/dL MG/DL [facility] Cholesterol.total/Cho lesterol in HDL [Mass ratio] 5.30 {ratio} RATIO [facility] Comment on above: RISK TOTAL/HDL RATIO MEN WOMEN 1/2 AVERAGE 3.43 3.27 AVERAGE 4.97 4.44 2X AVERAGE 9.55 7.05 3X AVERAGE 23.99 11.04 Interpretation and review of laboratory results Abnormal [facility] Triglyceride [Mass/Vol] 128 mg/dL [facility] LIPID PROFILEon 05-23-2023 Cholesterol [Mass/Vol] 228 mg/dL High 107-217 [facility] Comment on above: Performed By: #### L IP2 #### Testing performed at [address] [address] Cholesterol in HDL [Mass/Vol] 43 mg/dL Normal 33-75 [facility] Comment on above: Performed By: #### L IP2 #### Testing performed at [address] [address] Cholesterol in LDL [Mass/Vol] 159 mg/dL Normal [facility] Comment on above: Performed By: #### L IP2 #### Testing performed at [address] [address] Cholesterol in VLDL [Mass/Vol] 26 mg/dL Normal [facility] Comment on above: Performed By: #### L IP2 #### Testing performed at [address] [address] Cholesterol.total/Cho lesterol in HDL [Mass ratio] 5.30 {ratio} Normal [facility] Comment on above: Result Comment: RISK TOTAL/HDL RATIO MEN WOMEN 1/2 AVERAGE 3.43 3.27 AVERAGE 4.97 4.44 2X AVERAGE 9.55 7.05 3X AVERAGE 23.99 11.04 Performed By: #### L IP2 #### Testing performed at [address] [address] Triglyceride [Mass/Vol] 128 mg/dL Normal 0-150 [facility] Comment on above: Performed By: #### L IP2 #### Testing performed at [address] [address] MAGNESIUMon 05-23-2023 Magnesium [Mass/Vol] 2.2 mg/dL Normal 1.6-2.3 [facility] Comment on above: Performed By: #### U GERARDO, RTOX, UMAC #### Testing performed at [address] [address] Magnesium [Mass/Vol] 2.2 mg/dL [facility] MRSA SCREENon 05-23-2023 MRSA DNA KRANTHI+probe Ql (Unsp spec) Negative Normal NEGATIVE [facility] Comment on above: Performed By: #### M RSAST #### Testing performed at [address] [address] STAPH AUREUS SCREEN Positive Abnormal NEGATIVE [facility] Comment on above: Result Comment: TEST ING PERFORMED BY PCR Performed By: #### M RSAST #### Testing performed at [address] [address] No Panel Informationon 05-23 [facility] PHOSPHATE, INORGANICon 05-23 Interpretation and review of laboratory results Abnormal [facility] Phosphate [Mass/Vol] 6.2 mg/dL High [facility] PHOSPHOROUSon 05-23-2023 PHOSPHOROUS 6.2 MG/DL High 2.5-4.5 [facility] Comment on above: Performed By: #### U GERARDO, RTOX, UMAC #### Testing performed at [address] [address] PROTIMEon 05-23-2023 INR Coag (PPP) [Relative time] 0.94 {INR} Normal 0.85-1.10 [facility] Comment on above: Result Comment: 2.0-3.0 THERAPEUTIC RANGE 2.5-3.5 MECHANICAL VALVE RANGE Performed By: #### U GERARDO, RTOX, UMAC #### Testing performed at [address] [address] PT Coag (PPP) [Time] 12.7 s Normal 11.8-14.4 [facility] Comment on above: Performed By: #### U GERARDO, RTOX, UMAC #### Testing performed at [address] [place] [address] PROTIME-INRon 05-23-2023 INR Coag (PPP) [Relative time] 0.94 {INR} 0.85 - 1.10 [facility] Comment on above: 2.0-3.0 THERAPEUTIC RANGE 2.5-3.5 MECHANICAL VALVE RANGE PT Coag (PPP) [Time] 12.7 [facility] S[facility]: MRSA ONLY, NARES (IS OLATION SCREEN)on 05-23-2023 Interpretation and review of laboratory results Abnormal [facility] MRSA isol Org specific cx Ql (Nose) Negative NEGATIVE [facility] STAPHYOCOCCUS AUREUS BY PCR Positive Abnormal NEGATIVE [facility] Comment on above: TESTING PERFORMED BY PCR [facility] SODIUM, RANDOM URINEon 05-23 Sodium (U) [Moles/Vol] 53 mmol/L [facility] TROPONIN I, HIGH SENSITIVITY on 05-23-2023 TROPONIN I, HIGH SENSITIVITY 8 pg/mL Normal 0-12 [facility] Comment on above: Result Comment: Indeterminant: >12 to 100 pg/mL female >20 to 100 pg/mL male Indicative of myocardial injury. Serial sampling is recommended, a change of greater than or equal to 20 pg/mL is indicative of acute coronary syndrome. Performed By: #### L ACTH #### Testing performed at [facility] [address] [place] [address] TROPONIN I, HIGH SENSITIVITY 8 pg/mL 0 - 12 pg/mL [facility] Comment on above: Indeterminant: >12 to 100 pg/mL female >20 to 100 pg/mL male Indicative of myocardial injury. Serial sampling is recommended, a change of greater than or equal to 20 pg/mL is indicative of acute coronary syndrome. [facility] TROPONIN I, HIGH SENSITIVITY 6 pg/mL Normal 0-12 [facility] Comment on above: Result Comment: Indeterminant: >12 to 100 pg/mL female >20 to 100 pg/mL male Indicative of myocardial injury. Serial sampling is recommended, a change of greater than or equal to 20 pg/mL is indicative of acute coronary syndrome. Performed By: #### T ROHS ####Testing performed at [facility] [place] [address] TSH W/FT4 REFLEXon 3 TSH Qn 1.970 m[IU]/L [facility] TSH,REFLEX FREE T4on 023 TSH,REFLEX FREE T4 1.970 uIU/ML Normal 0.465-4.680 [facility] Comment on above: Performed By: #### U GERARDO, RTOX, UMAC #### Testing performed at [address] [address] URINALYSIS, MACROon 05-23-20 23 Bilirubin Ql (U) Negative [facility]GATIVE [facility] Clarity (U) CLEAR CLEAR [facility] Color (U) YELLOW YELLOW [facility] Glucose Test strip (U) [Mass/Vol] Negative NEGATIVE mg/dl [facility] Hemoglobin Ql (U) Negative NEGATIVE [facility] Ketones (U) [Mass/Vol] Negative NEGATIVE mg/dl [facility] Leukocyte esterase Test strip Ql (U) Negative NEGATIVE [facility] Nitrite Ql (U) Negative NEGATIVE [facility] pH (U) 5.5 [pH] 5.0 - 7.0 [facility] Protein Ql (U) Negative NEGATIVE mg/dl [facility] Specific gravity (U) [Rel density] 1.020 1.010 - 1.025 [facility] Urobilinogen (U) [Mass/Vol] 0.2 mg/dL [facility] URINE MACROSCOPICon 05-23-20 23 Bilirubin Ql (U) Negative Normal NEGATIVE [facility] Comment on above: Performed By: #### U MAC ####Testing performed at [address] [address] Clarity (U) CLEAR Normal CLEAR [facility] Comment on above: Performed By: #### U MAC ####Testing performed at [address] [address] Color (U) YELLOW Normal YELLOW [facility] Comment on above: Performed By: #### U MAC ####Testing performed at [address] [address] Glucose Ql (U) Negative Normal NEGATIVE [facility] Comment on above: Performed By: #### U MAC ####Testing performed at [address] [address] pH (U) 5.5 [pH] Normal 5.0-7.0 [facility] Comment on above: Performed By: #### U MAC ####Testing performed at [address] [address] URINE HEMOGLOBIN Negative Normal NEGATIVE [facility] Comment on above: Performed By: #### U MAC ####Testing performed at [address] [address] URINE KETONE Negative Normal NEGATIVE [facility] Comment on above: Performed By: #### U MAC ####Testing performed at [address] [address] URINE LEUKOTEST Negative Normal NEGATIVE [facility] Comment on above: Performed By: #### U MAC ####Testing performed at [address] [address] URINE NITRATES Negative Normal NEGATIVE [facility] Comment on above: Performed By: #### U MAC ####Testing performed at [address] [address] URINE SPEC GRAVITY 1.020 Normal 1.010-1.025 [facility] Comment on above: Performed By: #### U MAC ####Testing performed at [address] [address] URINE TOTAL PROTEIN Negative Normal NEGATIVE [facility] Comment on above: Performed By: #### U MAC ####Testing performed at [address] [address] Urobilinogen Qn (U) 0.2 {Samuel'U}/dL Normal 0.2-1.0 [facility] Comment on above: Performed By: #### U MAC ####Testing performed at [address] [address] URINE SODIUM RANDOMon 2022 Sodium (U) [Moles/Vol] 53 mmol/L Normal 30-90 [facility] Comment on above: Performed By: #### L ACTH #### Testing performed at [facility] [address] [place] [address] US Renal arteryon 05-23-2023 Radiology Study observation (narrative) [facility] VITAMIN D (25-HYDROXY,TOTAL) on 05-23-2023 25-hydroxyvitamin D [Mass/Vol] 36.3 NG/ML [facility] Comment on above: DEFICIENT <20 NG/ML INSUFFICIENT 20-<30 NG/ML SUFFICIENT 30-100 NG/ML POTENTIAL TOXICITY >100 NG/ML [facility] B TYPE NATRIURETIC PEPTIDEon 05-22-2023 Natriuretic peptide B (Bld) [Mass/Vol] 89 pg/mL Normal [facility] Comment on above: Performed By: #### U GERARDO, RTOX, UMAC #### Testing performed at [address] [address] B-TYPE NATRIURETIC PEPTIDE ( BRAIN)on 05-22-2023 Natriuretic peptide B (Bld) [Mass/Vol] 89 pg/mL [facility] CBCon 05-22-2023 ABSOLUTE BAS 0.0 10*3/uL Normal 0.0-0.2 [facility] Comment on above: Performed By: #### U GERARDO, RTOX, UMAC #### Testing performed at [address] [address] ABSOLUTE EOS 0.3 10*3/uL Normal 0.0-0.7 [facility] Comment on above: Performed By: #### U GERARDO, RTOX, UMAC #### Testing performed at [address] [address] ABSOLUTE NEUTROPHIL COUNT 3.4 10*3/uL Normal 1.4-6.5 [facility] Comment on above: Performed By: #### U GERARDO, RTOX, UMAC #### Testing performed at [address] [address] Basophils/100 WBC (Bld) 0.6 % Normal 0.0-2.0 [facility] Comment on above: Performed By: #### U GERARDO, RTOX, UMAC #### Testing performed at [address] [address] DTYPE AUTO DIFF Normal [facility] Comment on above: Performed By: #### U GERARDO, RTOX, UMAC #### Testing performed at [address] [address] Eosinophils/100 WBC (Bld) 6.2 % Normal 0.0-11.0 [facility] Comment on above: Performed By: #### U GERARDO, RTOX, UMAC #### Testing performed at [address] [address] Lymphocytes (Bld) [#/Vol] 1.0 10*3/uL Low 1.2-3.4 [facility] Comment on above: Performed By: #### U GERARDO, RTOX, UMAC #### Testing performed at [address] [address] Lymphocytes/100 WBC (Bld) 20.0 % Normal 20.0-55.0 [facility] Comment on above: Performed By: #### U GERARDO, RTOX, UMAC #### Testing performed at [address] [address] Monocytes (Bld) [#/Vol] 0.3 10*3/uL Normal 0.0-0.7 [facility] Comment on above: Performed By: #### U GERARDO, RTOX, UMAC #### Testing performed at [address] [address] Monocytes/100 WBC (Bld) 5.7 % Normal 0.0-10.0 [facility] Comment on above: Performed By: #### U GERARDO, RTOX, UMAC #### Testing performed at [address] [address] Neutrophils/100 WBC (Bld) 67.5 % Normal 37.0-75.0 [facility] Comment on above: Performed By: #### U GERARDO, RTOX, UMAC #### Testing performed at [address] [address] Erythrocyte distribution width (RBC) [Ratio] 13.2 % Normal 11.5-14.5 [facility] Comment on above: Performed By: #### U GERARDO, RTOX, UMAC #### Testing performed at [address] [address] Hematocrit (Bld) [Volume fraction] 41.6 % Normal 36.0-48.0 [facility] Comment on above: Performed By: #### U GERARDO, RTOX, UMAC #### Testing performed at [address] [address] Hemoglobin (Bld) [Mass/Vol] 14.1 g/dL Normal 12.0-16.0 [facility] Comment on above: Performed By: #### U GERARDO, RTOX, UMAC #### Testing performed at [address] [address] MCH (RBC) [Entitic mass] 31.1 pg Normal 26.0-35.0 [facility] Comment on above: Performed By: #### U GERARDO, RTOX, UMAC #### Testing performed at [address] [address] MCHC (RBC) [Mass/Vol] 34.0 g/dL Normal 27.0-37.0 [facility] Comment on above: Performed By: #### U GERARDO, RTOX, UMAC #### Testing performed at [address] [address] MCV (RBC) [Entitic vol] 91.3 fL Normal 80.0-100.0 [facility] Comment on above: Performed By: #### U GERARDO, RTOX, UMAC #### Testing performed at [address] [address] Platelet mean volume (Bld) [Entitic vol] 9.1 fL Normal 7.4-11.0 [facility] Comment on above: Performed By: #### U GERARDO, RTOX, UMAC #### Testing performed at [address] [address] Platelets (Bld) [#/Vol] 110 10*3/uL Low 130-400 [facility] Comment on above: Performed By: #### U GERARDO, RTOX, UMAC #### Testing performed at [address] [address] RBC (Bld) [#/Vol] 4.55 10*6/uL Normal 4.0-5.4 [facility] Comment on above: Performed By: #### U GERARDO, RTOX, UMAC #### Testing performed at [address] [place] [address] WBC (Bld) [#/Vol] 5.1 10*3/uL Normal 3.6-11.0 [facility] Comment on above: Performed By: #### U GERARDO, RTOX, UMAC #### Testing performed at [address] [address] CBC, EDIF, PLATELETon 2022 ABSOLUTE BASOPHIL COUNT 0.0 10*3/uL 0.0 - 0.2 10*3/uL [facility] Basophils/100 WBC (Bld) 0.6 % 0.0 - 2.0 % [facility] Differential cell count method Nom (Bld) AUTO DIFF % [facility] Eosinophils (Bld) [#/Vol] 0.3 10*3/uL 0.0 - 0.7 10*3/uL [facility] Eosinophils/100 WBC (Bld) 6.2 % 0.0 - 11.0 % [facility] Erythrocyte distribution width (RBC) [Ratio] 13.2 % 11.5 - 14.5 % [facility] Hematocrit (Bld) [Volume fraction] 41.6 % 36.0 - 48.0 % [facility] Hemoglobin (Bld) [Mass/Vol] 14.1 g/dL [facility] Interpretation and review of laboratory results Abnormal [facility] Lymphocytes (Bld) [#/Vol] 1.0 10*3/uL Low 1.2 - 3.4 10*3/uL [facility] Lymphocytes/100 WBC (Bld) 20.0 % 20.0 - 55.0 % [facility] MCH (RBC) [Entitic mass] 31.1 pg 26.0 - 35.0 PG [facility] MCHC (RBC) [Mass/Vol] 34.0 g/dL [facility] MCV (RBC) [Entitic vol] 91.3 fL [facility] Monocytes (Bld) [#/Vol] 0.3 10*3/uL 0.0 - 0.7 10*3/uL [facility] Monocytes/100 WBC (Bld) 5.7 % 0.0 - 10.0 % [facility] Neutrophils (Bld) [#/Vol] 3.4 10*3/uL 1.4 - 6.5 10*3/uL [facility] Neutrophils/100 WBC (Bld) 67.5 % 37.0 - 75.0 % [facility] Platelet mean volume (Bld) [Entitic vol] 9.1 fL [facility] Platelets (Bld) [#/Vol] 110 10*3/uL Low 130 - 400 10*3/uL [facility] RBC (Bld) [#/Vol] 4.55 10*6/uL 4.0 - 5.4 10*6/uL [facility] WBC (Bld) [#/Vol] 5.1 10*3/uL 3.6 - 11.0 10*3/uL [facility] CMP FASTINGon 05-22-2023 A:G RATIO 1.8 RATIO Normal [facility] Comment on above: Performed By: #### U GERARDO, RTOX, UMAC #### Testing performed at [address] [address] ALBUMIN 4.2 G/dl Normal 3.5-5.0 [facility] Comment on above: Performed By: #### U GERARDO, RTOX, UMAC #### Testing performed at [address] [address] ALP [Catalytic activity/Vol] 86 U/L Normal 38-126 [facility] Comment on above: Performed By: #### U GERARDO, RTOX, UMAC #### Testing performed at [address] [address] ALT [Catalytic activity/Vol] 57 U/L High <35 [facility] Comment on above: Performed By: #### U GERARDO, RTOX, UMAC #### Testing performed at [address] [address] AST [Catalytic activity/Vol] 49 U/L High 14-36 [facility] Comment on above: Performed By: #### U GERARDO, RTOX, UMAC #### Testing performed at [address] [address] Bilirubin [Mass/Vol] 0.8 mg/dL Normal 0.2-1.3 [facility] Comment on above: Performed By: #### U GERARDO, RTOX, UMAC #### Testing performed at [address] [address] Calcium [Mass/Vol] 9.0 mg/dL Normal 8.4-10.2 [facility] Comment on above: Performed By: #### U GERARDO, RTOX, UMAC #### Testing performed at [address] [address] Chloride [Moles/Vol] 108 mmol/L High 98-107 [facility] Comment on above: Result Comment: Hilary diaz note: Triglyceride levels of 600mg/dL or higher may positively bias chloride results by approximately 2.1 mmol Performed By: #### U GERARDO, RTOX, UMAC #### [place] [address] CO2 [Moles/Vol] 27 mmol/L Normal 22-30 [facility] Comment on above: Performed By: #### U GERARDO, RTOX, UMAC #### Testing performed at [place] [id number] Creatinine [Mass/Vol] 0.79 mg/dL Normal 0.70-1.20 [facility] Comment on above: Performed By: #### U GERARDO, RTOX, UMAC #### Testing performed at [address] [address] EST. GFR, 95 ml/min/1.73sq.m [facility] Comment on above: Performed By: #### U GERARDO, RTOX, UMAC #### Testing performed at [address] [address] EST. GFR,Non 78 ml/min/1.73sq.m [facility] Comment on above: Performed By: #### U GERARDO, RTOX, UMAC #### Testing performed at [address] [address] GFR Information Average GFR for 60-6 9 years old = 85. [facility] Comment on above: Result Comment: [employer] Kidney disease, GFR = <60. Kidney failure, GFR = <15. The GFR estimate is not adjusted for extreme body surface area or acute process, nor has it been validated for women or ethnic groups other than and . Performed By: #### U GERARDO, RTOX, UMAC #### Testing performed at [address] [address] Glucose [Mass/Vol] 111 mg/dL High 70-100 [facility] Comment on above: Result Comment: NORMAL <100 mg/dL PREDIABETES 101-126 mg/dL DIABETES 126 mg/dL or higher Performed By: #### U GERARDO, RTOX, UMAC #### Testing performed at [address] [address] Potassium [Moles/Vol] 4.3 mmol/L Normal 3.5-5.1 [facility] Comment on above: Performed By: #### U GERARDO, RTOX, UMAC #### Testing performed at [address] [address] Protein [Mass/Vol] 6.5 g/dL Normal 6.3-8.2 [facility] Comment on above: Performed By: #### U GERARDO, RTOX, UMAC #### Testing performed at [address] [address] Sodium [Moles/Vol] 142 mmol/L Normal 137-145 [facility] Comment on above: Performed By: #### U GERARDO, RTOX, UMAC #### Testing performed at [address] [address] Urea nitrogen [Mass/Vol] 20 mg/dL Normal 7-20 [facility] Comment on above: Performed By: #### U GERARDO, RTOX, UMAC #### Testing performed at [address] [address] COMPREHENSIVE METABOLIC PANE José 05-22-2023 Albumin [Mass/Vol] 4.2 G/dl 3.5 - 5.0 G/dl [facility] Albumin/Globulin [Mass ratio] 1.8 {ratio} RATIO [facility] ALP [Catalytic activity/Vol] 86 U/L [facility] ALT [Catalytic activity/Vol] 57 U/L High NINF [facility] AST [Catalytic activity/Vol] 49 U/L High [facility] Bilirubin [Mass/Vol] 0.8 mg/dL [facility] Calcium [Mass/Vol] 9.0 mg/dL [facility] Chloride [Moles/Vol] 108 mmol/L High [facility] Comment on above: Please note: Triglyc eride levels of 600mg/dL or higher may positively bias chloride results by approximately 2.1 mmol CO2 [Moles/Vol] 27 mmol/L [facility] Creatinine [Mass/Vol] 0.79 mg/dL [facility] GFR COMMENT Average GFR for 60-6 9 years old = 85. [facility] Comment on above: Chronic Kidney disea se, GFR = <60. Kidney failure, GFR = <15. The GFR estimate is not adjusted for extreme body surface area or acute process, nor has it been validated for women or ethnic groups other than and . GFR/1.73 sq M.predicted among blacks MDRD (S/P/Bld) [Vol rate/Area] 95 mL/min/{1.73_m2} ml/min/1.73sq .m [facility] GFR/1.73 sq M.predicted among non-blacks MDRD (S/P/Bld) [Vol rate/Area] 78 mL/min/{1.73_m2} ml/min/1.73sq .m [facility] Glucose post fast [Mass/Vol] 111 mg/dL High [facility] Comment on above: NORMAL <100 mg/dL PREDIABETES 101-126 mg/dL DIABETES 126 mg/dL or higher Interpretation and review of laboratory results Abnormal [facility] Potassium [Moles/Vol] 4.3 mmol/L [facility] Protein [Mass/Vol] 6.5 g/dL [facility] Sodium [Moles/Vol] 142 mmol/L [facility] Urea nitrogen [Mass/Vol] 20 mg/dL [facility] CT HEAD WITHOUT CONTRASTon 0 05-22-2023 CT HEAD WITHOUT CONTRAST CT HEAD WITHOUT CONTRAST: 05/22/2023 5:58 PM EDT HISTORY: Headache TECHNIQUE: CT scan brain without IV contrast was obtained. COMPARISON: 01/30/2022. FINDINGS: There is a normal sulcal pattern and gyral configuration. No mass or mass effect or intracranial hemorrhage is seen. CSF spaces are prominent consistent with age-appropriate atrophy.. Hypoattenuation of the periventricular and subcortical white matter consistent with small vessel ischemic changes are seen. Cerebellum and brainstem appear grossly normal. Mastoid and ethmoid air cells are well-developed and pneumatized. The visualized paranasal sinuses appear normal. IMPRESSION: Age-appropriate atrophy and small vessel ischemic changes. No evidence of intracranial hemorrhage or other acute finding. Normal [facility] CT Head WO contraston 2022 IMPRESSION: Age-appropriate atrophy and small vessel ischemic changes. No evidence of intracranial hemorrhage or other acute finding. RADIOLOGY CT HEAD WITHOUT CONTRAST: 05/22/2023 5:58 PM EDT HISTORY: Headache TECHNIQUE: CT scan brain without IV contrast was obtained. COMPARISON: 01/30/2022. FINDINGS: There is a normal sulcal pattern and gyral configuration. No mass or mass effect or intracranial hemorrhage is seen. CSF spaces are prominent consistent with age-appropriate atrophy.. Hypoattenuation of the periventricular and subcortical white matter consistent with small vessel ischemic changes are seen. Cerebellum and brainstem appear grossly normal. Mastoid and ethmoid air cells are well-developed and pneumatized. The visualized paranasal sinuses appear normal. RADIOLOGY Misael Bonilla MD - 05/22/2023 CT HEAD WITHOUT CONTRAST: 05/22/2023 5:58 PM EDT HISTORY: Headache TECHNIQUE: CT scan brain without IV contrast was obtained. COMPARISON: 01/30/2022. FINDINGS: There is a normal sulcal pattern and gyral configuration. No mass or mass effect or intracranial hemorrhage is seen. CSF spaces are prominent consistent with age-appropriate atrophy.. Hypoattenuation of the periventricular and subcortical white matter consistent with small vessel ischemic changes are seen. Cerebellum and brainstem appear grossly normal. Mastoid and ethmoid air cells are well-developed and pneumatized. The visualized paranasal sinuses appear normal. IMPRESSION IMPRESSION: Age-appropriate atrophy and small vessel ischemic changes. No evidence of intracranial hemorrhage or other acute finding. [facility] observation (narrative) [facility] CT Head WO contrastOrdered B y: Misael Bonilla on 05-22-2023 [facility] Work Phone: TROPONIN I, HIGH SENSITIVITY on 05-22-2023 TROPONIN I, HIGH SENSITIVITY 6 pg/mL 0 - 12 pg/mL [facility] Comment on above: Indeterminant: >12 to 100 pg/mL female >20 to 100 pg/mL male Indicative of myocardial injury. Serial sampling is recommended, a change of greater than or equal to 20 pg/mL is indicative of acute coronary syndrome. [facility] TROPONIN I, HIGH SENSITIVITY 5 pg/mL Normal 0-12 [facility] Comment on above: Result Comment: Indeterminant: >12 to 100 pg/mL female >20 to 100 pg/mL male Indicative of myocardial injury. Serial sampling is recommended, a change of greater than or equal to 20 pg/mL is indicative of acute coronary syndrome. Performed By: #### L ACTH #### Testing performed at [facility] [address] [place] [address] [place] [address] TROPONIN I, HIGH SENSITIVITY 5 pg/mL 0 - 12 pg/mL [facility] Comment on above: Indeterminant: >12 to 100 pg/mL female >20 to 100 pg/mL male Indicative of myocardial injury. Serial sampling is recommended, a change of greater than or equal to 20 pg/mL is indicative of acute coronary syndrome. [facility] XR CHEST PA AND LATERALon XR CHEST PA AND LATERAL [facility] CHEST RADIOGRAPH, 05/22/2023 5:58 PM EDT COMPARISON: Chest, 09/01/2022. CLINICAL HISTORY: uncontrolled HTN. Looking for end organ changes Findings and impression: 1. No acute pulmonary disease. 2. Stable cardiomegaly. 3. No acute osseous abnormality. Orthopedic plate again seen over the lower cervical region. Normal [facility] XR Chest PA and Lateralon Findings and impression: 1. No acute pulmonary disease. 2. Stable cardiomegaly. 3. No acute osseous abnormality. Orthopedic plate again seen over the lower cervical region. RADIOLOGY [facility] CHEST RADIOGRAPH, 05/22/2023 5:58 PM EDT COMPARISON: Chest, 09/01/2022. CLINICAL HISTORY: uncontrolled HTN. Looking for end organ changes RADIOLOGY Brandi Giang MD - 05/22/2023 [facility] CHEST RADIOGRAPH, 05/22/2023 5:58 PM EDT COMPARISON: Chest, 09/01/2022. CLINICAL HISTORY: uncontrolled HTN. Looking for end organ changes IMPRESSION Findings and impression: 1. No acute pulmonary disease. 2. Stable cardiomegaly. 3. No acute osseous abnormality. Orthopedic plate again seen over the lower cervical region. [facility] Study observation (narrative) [facility] XR Chest PA and LateralOrder ed By: Brandi Giang on 05-22-2023 [employer] Work Phone: US DUPLEX VENOUS LEG LEFTon 03-10-2023 US DUPLEX VENOUS LEG LEFT Patient Info Name: MICHELINE FOX Age: 62 years : 1960 Gender: Female Exam Date: 03/10/2023 2:49 PM Patient Status: Outpatient Papier Mache Molder: Lakesha Caraballo, ANDREWS, RDMS (AB), RVT Referring Physician: LETICIA SYLVESTER ; Indications M79.662 - Pain in left lower leg Procedure Description 50833 Duplex examination using B-mode, color and spectral Doppler of extremity veins including responses to compression and other maneuvers; unilateral or limited study. Conclusions * No evidence of deep or superficial vein thrombosis in the left lower extremity. * No change from previous study from November 2020. Prior Study Date: 11/19/2020 Risk Factors Patient has a history of hypertension and tobacco use-previous. . Report Signatures Finalized by LYLE Boss DO on 03/10/2023 03:26 PM External Iliac: - External Iliac: - External Iliac: - External Iliac: Complete External Iliac: Normal External Iliac: Normal Common Femoral: Complete Common Femoral: Normal Common Femoral: Normal Common Femoral: Complete Common Femoral: Normal Common Femoral: Normal Femoral: - Femoral: Complete Femoral: - Femoral: Normal Femoral: - Femoral: Normal Peroneal: - Peroneal: Complete Peroneal: - Peroneal: - Peroneal: - Peroneal: - Profunda Femoral: - Profunda Femoral: - Profunda Femoral: Complete Profunda Femoral: - Profunda Femoral: - Popliteal: - Popliteal: Complete Popliteal: - Popliteal: Normal Popliteal: - Popliteal: Normal Posterior Tibial: - Posterior Tibial: Complete Posterior Tibial: - Posterior Tibial: - Posterior Tibial: - Posterior Tibial: - Gastrocnemius: - Gastrocnemius: - Gastrocnemius: - Gastrocnemius: - Gastrocnemius: - Gastrocnemius: - Soleal: - Soleal: - Soleal: - Soleal: - Soleal: - Soleal: - Great Saphenous: - Great Saphenous: Complete Great Saphenous: - Great Saphenous: Normal Great Saphenous: - Great Saphenous: Normal Small Saphenous: - Small Saphenous: - Small Saphenous: - Small Saphenous: - Small Saphenous: - Small Saphenous: - - Normal [facility] DUPLEX VENOUS LEG LEFT Patient Info Name: MICHELINE FOX Age: 62 years : 1960 Gender: Female Exam Date: 03/10/2023 2:49 PM Patient Status: Outpatient Papier Mache Molder: Lakesha Caraballo, ANDREWS, RDMS (AB), RVT Referring Physician: LETICIA SYLVESTER ; Indications M79.662 - Pain in left lower leg Procedure Description 72815 Duplex examination using B-mode, color and spectral Doppler of extremity veins including responses to compression and other maneuvers; unilateral or limited study. Conclusions * No evidence of deep or superficial vein thrombosis in the left lower extremity. * No change from previous study from November 2020. Prior Study Date: 11/19/2020 Risk Factors Patient has a history of hypertension and tobacco use-previous. . Report Signatures Finalized by LYLE Boss DO on 03/10/2023 03:26 PM External Iliac: - External Iliac: - External Iliac: - External Iliac: Complete External Iliac: Normal External Iliac: Normal Common Femoral: Complete Common Femoral: Normal Common Femoral: Normal Common Femoral: Complete Common Femoral: Normal Common Femoral: Normal Femoral: - Femoral: Complete Femoral: - Femoral: Normal Femoral: - Femoral: Normal Peroneal: - Peroneal: Complete Peroneal: - Peroneal: - Peroneal: - Peroneal: - Profunda Femoral: - Profunda Femoral: - Profunda Femoral: Complete Profunda Femoral: - Profunda Femoral: - Popliteal: - Popliteal: Complete Popliteal: - Popliteal: Normal Popliteal: - Popliteal: Normal Posterior Tibial: - Posterior Tibial: Complete Posterior Tibial: - Posterior Tibial: - Posterior Tibial: - Posterior Tibial: - Gastrocnemius: - Gastrocnemius: - Gastrocnemius: - Gastrocnemius: - Gastrocnemius: - Gastrocnemius: - Soleal: - Soleal: - Soleal: - Soleal: - Soleal: - Soleal: - Great Saphenous: - Great Saphenous: Complete Great Saphenous: - Great Saphenous: Normal Great Saphenous: - Great Saphenous: Normal Small Saphenous: - Small Saphenous: - Small Saphenous: - Small Saphenous: - Small Saphenous: - Small Saphenous: - - Dictated by: ADELA VENCES III on ThuMar 10, 2023 3:27:51 PM EDT Transcribed by: ADELA VENCES III on ThuMar 10, 2023 3:27:51 PM EDT Finalized by: ADELA VENCES III on ThuMar 10, 2023 3:27:51 PM EDT Normal [facility] CBCon 02-16-2023 ABSOLUTE BAS 0.0 10*3/uL Normal 0.0-0.2 [facility] Comment on above: Performed By: #### P T, ACBC, DDIMER, LIVR, CHEM7F #### Testing performed at [place] [id number] ABSOLUTE EOS 0.2 10*3/uL Normal 0.0-0.7 [facility] Comment on above: Performed By: #### P T, ACBC, DDIMER, LIVR, CHEM7F #### Testing performed at [address] [address] ABSOLUTE NEUTROPHIL COUNT 3.4 10*3/uL Normal 1.4-6.5 [facility] Comment on above: Performed By: #### P T, ACBC, DDIMER, LIVR, CHEM7F #### Testing performed at [address] [address] Basophils/100 WBC (Bld) 0.9 % Normal 0.0-2.0 [facility] Comment on above: Performed By: #### P T, ACBC, DDIMER, LIVR, CHEM7F #### Testing performed at [address] [address] DTYPE AUTO DIFF Normal [facility] Comment on above: Performed By: #### P T, ACBC, DDIMER, LIVR, CHEM7F #### Testing performed at [place] [id number] Eosinophils/100 WBC (Bld) 3.5 % Normal 0.0-11.0 [facility] Comment on above: Performed By: #### P T, ACBC, DDIMER, LIVR, CHEM7F #### Testing performed at [address] [address] Lymphocytes (Bld) [#/Vol] 1.4 10*3/uL Normal 1.2-3.4 [facility] Comment on above: Performed By: #### P T, ACBC, DDIMER, LIVR, CHEM7F #### Testing performed at [address] [address] Lymphocytes/100 WBC (Bld) 26.2 % Normal 20.0-55.0 [facility] Comment on above: Performed By: #### P T, ACBC, DDIMER, LIVR, CHEM7F #### Testing performed at [address] [address] Monocytes (Bld) [#/Vol] 0.3 10*3/uL Normal 0.0-0.7 [facility] Comment on above: Performed By: #### P T, ACBC, DDIMER, LIVR, CHEM7F #### Testing performed at [address] [address] Monocytes/100 WBC (Bld) 6.0 % Normal 0.0-10.0 [facility] Comment on above: Performed By: #### P T, ACBC, DDIMER, LIVR, CHEM7F #### Testing performed at [address] [address] Neutrophils/100 WBC (Bld) 63.4 % Normal 37.0-75.0 [facility] Comment on above: Performed By: #### P T, ACBC, DDIMER, LIVR, CHEM7F #### Testing performed at [address] [address] Erythrocyte distribution width (RBC) [Ratio] 14.0 % Normal 11.5-14.5 [facility] Comment on above: Performed By: #### P T, ACBC, DDIMER, LIVR, CHEM7F #### Testing performed at [address] [address] Hematocrit (Bld) [Volume fraction] 40.8 % Normal 36.0-48.0 [facility] Comment on above: Performed By: #### P T, ACBC, DDIMER, LIVR, CHEM7F #### Testing performed at [address] [address] Hemoglobin (Bld) [Mass/Vol] 13.9 g/dL Normal 12.0-16.0 [facility] Comment on above: Performed By: #### P T, ACBC, DDIMER, LIVR, CHEM7F #### Testing performed at [address] [address] MCH (RBC) [Entitic mass] 31.7 pg Normal 26.0-35.0 [facility] Comment on above: Performed By: #### P T, ACBC, DDIMER, LIVR, CHEM7F #### Testing performed at [address] [address] MCHC (RBC) [Mass/Vol] 34.2 g/dL Normal 27.0-37.0 [facility] Comment on above: Performed By: #### P T, ACBC, DDIMER, LIVR, CHEM7F #### Testing performed at [address] [address] MCV (RBC) [Entitic vol] 92.6 fL Normal 80.0-100.0 [facility] Comment on above: Performed By: #### P T, ACBC, DDIMER, LIVR, CHEM7F #### Testing performed at [address] [address] Platelet mean volume (Bld) [Entitic vol] 9.3 fL Normal 7.4-11.0 [facility] Comment on above: Performed By: #### P T, ACBC, DDIMER, LIVR, CHEM7F #### Testing performed at [address] [address] Platelets (Bld) [#/Vol] 128 10*3/uL Low 130-400 [facility] Comment on above: Performed By: #### P T, ACBC, DDIMER, LIVR, CHEM7F #### Testing performed at [address] [place] [address] RBC (Bld) [#/Vol] 4.40 10*6/uL Normal 4.0-5.4 [facility] Comment on above: Performed By: #### P T, ACBC, DDIMER, LIVR, CHEM7F #### Testing performed at [address] [place] [address] WBC (Bld) [#/Vol] 5.3 10*3/uL Normal 3.6-11.0 [facility] Comment on above: Performed By: #### P T, ACBC, DDIMER, LIVR, CHEM7F #### Testing performed at [address] [place] [address] CBC, EDIF, PLATELETon 2022 ABSOLUTE BASOPHIL COUNT 0.0 10*3/uL 0.0 - 0.2 10*3/uL [facility] Basophils/100 WBC (Bld) 0.9 % 0.0 - 2.0 % [facility] Differential cell count method Nom (Bld) AUTO DIFF % [facility] Eosinophils (Bld) [#/Vol] 0.2 10*3/uL 0.0 - 0.7 10*3/uL [facility] Eosinophils/100 WBC (Bld) 3.5 % 0.0 - 11.0 % [facility] Erythrocyte distribution width (RBC) [Ratio] 14.0 % 11.5 - 14.5 % [facility] Hematocrit (Bld) [Volume fraction] 40.8 % 36.0 - 48.0 % [facility] Hemoglobin (Bld) [Mass/Vol] 13.9 g/dL [facility] Interpretation and review of laboratory results Abnormal [facility] Lymphocytes (Bld) [#/Vol] 1.4 10*3/uL 1.2 - 3.4 10*3/uL [facility] Lymphocytes/100 WBC (Bld) 26.2 % 20.0 - 55.0 % [facility] MCH (RBC) [Entitic mass] 31.7 pg 26.0 - 35.0 PG [facility] MCHC (RBC) [Mass/Vol] 34.2 g/dL [facility] MCV (RBC) [Entitic vol] 92.6 fL [facility] Monocytes (Bld) [#/Vol] 0.3 10*3/uL 0.0 - 0.7 10*3/uL [facility] Monocytes/100 WBC (Bld) 6.0 % 0.0 - 10.0 % [facility] Neutrophils (Bld) [#/Vol] 3.4 10*3/uL 1.4 - 6.5 10*3/uL [facility] Neutrophils/100 WBC (Bld) 63.4 % 37.0 - 75.0 % [facility] Platelet mean volume (Bld) [Entitic vol] 9.3 fL [facility] Platelets (Bld) [#/Vol] 128 10*3/uL Low 130 - 400 10*3/uL [facility] RBC (Bld) [#/Vol] 4.40 10*6/uL 4.0 - 5.4 10*6/uL [facility] WBC (Bld) [#/Vol] 5.3 10*3/uL 3.6 - 11.0 10*3/uL [facility] CHEM 7 FASTINGon 02-16-2022 Chloride [Moles/Vol] 106 mmol/L Normal 98-107 [facility] Comment on above: Performed By: #### P T, ACBC, DDIMER, LIVR, CHEM7F ####Testing performed at [place] [id number] CO2 [Moles/Vol] 26 mmol/L Normal 22-30 [facility] Comment on above: Performed By: #### P T, ACBC, DDIMER, LIVR, CHEM7F ####Testing performed at [address] [address] Creatinine [Mass/Vol] 0.75 mg/dL Normal 0.52-1.04 [facility] Comment on above: Performed By: #### P T, ACBC, DDIMER, LIVR, CHEM7F ####Testing performed at [address] [address] EST. GFR, 101 ml/min/1.73sq.m Normal [facility] Comment on above: Performed By: #### P T, ACBC, DDIMER, LIVR, CHEM7F ####Testing performed at [address] [address] EST. GFR,Non 84 ml/min/1.73sq.m [facility] Comment on above: Performed By: #### P T, ACBC, DDIMER, LIVR, CHEM7F ####Testing performed at [place] [id number] GFR Information Average GFR for 60-6 9 years old = 85. Normal [facility] Comment on above: Result Comment: [employer] romelia Kidney disease, GFR = <60. Kidney failure, GFR = <15. The GFR estimate is not adjusted for extreme body surface area or acute process, nor has it been validated for women or ethnic groups other than and . Performed By: #### P T, ACBC, DDIMER, LIVR, CHEM7F ####Testing performed at [place] [id number] Glucose [Mass/Vol] 104 mg/dL High 70-100 [facility] Comment on above: Result Comment: NORMAL <100 mg/dL PREDIABETES 101-126 mg/dL DIABETES 126 mg/dL or higher Performed By: #### P T, ACBC, DDIMER, LIVR, CHEM7F ####Testing performed at [address] [address] Potassium [Moles/Vol] 3.5 mmol/L Normal 3.5-5.1 [facility] Comment on above: Performed By: #### P T, ACBC, DDIMER, LIVR, CHEM7F ####Testing performed at [address] [address] Sodium [Moles/Vol] 143 mmol/L Normal 136-145 [facility] Comment on above: Performed By: #### P T, ACBC, DDIMER, LIVR, CHEM7F ####Testing performed at [place] [id number] Urea nitrogen [Mass/Vol] 20 mg/dL Normal 7-20 [facility] Comment on above: Performed By: #### P T, ACBC, DDIMER, LIVR, CHEM7F ####Testing [place] [address] CHEM 7 (LYTES,BUN,CREA,GLUC) on 02-16-2023 Chloride [Moles/Vol] 106 mmol/L [facility] CO2 [Moles/Vol] 26 mmol/L [facility] Creatinine [Mass/Vol] 0.75 mg/dL [facility] [employer] [facility] GFR COMMENT Average GFR for 60-6 9 years old = 85. [facility] Comment on above: Chronic Kidney disea se, GFR = <60. Kidney failure, GFR = <15. The GFR estimate is not adjusted for extreme body surface area or acute process, nor has it been validated for women or ethnic groups other than and . GFR/1.73 sq M.predicted among blacks MDRD (S/P/Bld) [Vol rate/Area] 101 mL/min/{1.73_m2} ml/min/1.73sq .m [facility] [employer] [facility] GFR/1.73 sq M.predicted among non-blacks MDRD (S/P/Bld) [Vol rate/Area] 84 mL/min/{1.73_m2} ml/min/1.73sq .m [facility] [employer] [facility] Glucose post fast [Mass/Vol] 104 mg/dL High [facility] Comment on above: NORMAL <100 mg/dL PREDIABETES 101-126 mg/dL DIABETES 126 mg/dL or higher Potassium [Moles/Vol] 3.5 mmol/L [facility] Sodium [Moles/Vol] 143 mmol/L [facility] [employer] [facility] Urea nitrogen [Mass/Vol] 20 mg/dL [facility] D DIMERon 02-16-2023 D DIMER <0.27 Normal <0.50 [facility] Comment on above: Result Comment: If r esult is greater than the cutoff value of 0.56 mg/L then the potential for PE or DVT exists. Other conditions exist which may cause a falsely elevated level. Please correlate clinically, including radiological findings and other clinical parameters. Performed By: #### P T, ACBC, DDIMER, LIVR, CHEM7F ####Testing performed at [address] [address] D-DIMER,QUANTITATIVEon 02-16 Fibrin D-dimer FEU (PPP) [Mass/Vol] <0.27 NINF [facility] Comment on above: If result is greater than the cutoff value of 0.56 mg/L then the potential for PE or DVT exists. Other conditions exist which may cause a falsely elevated level. Please correlate clinically, including radiological findings and other clinical parameters. [facility] HEPATIC FUNCTION PANELon Albumin [Mass/Vol] 4.1 g/dL [facility] ALP [Catalytic activity/Vol] 73 U/L [facility] ALT [Catalytic activity/Vol] 68 U/L High [facility] AST [Catalytic activity/Vol] 55 U/L High [facility] Bilirubin [Mass/Vol] 0.8 mg/dL [facility] Bilirubin.direct [Mass/Vol] 0.2 mg/dL [facility] Protein [Mass/Vol] 7.0 g/dL [facility] LIVER PANELon 02-16-2023 Albumin [Mass/Vol] 4.1 g/dL Normal 3.5-5.0 [facility] Comment on above: Performed By: #### P T, ACBC, DDIMER, LIVR, CHEM7F ####Testing performed at [address] [address] ALP [Catalytic activity/Vol] 73 U/L Normal 38-126 [facility] Comment on above: Performed By: #### P T, ACBC, DDIMER, LIVR, CHEM7F ####Testing performed at [address] [address] ALT [Catalytic activity/Vol] 68 U/L High 14-54 [facility] Comment on above: Performed By: #### P T, ACBC, DDIMER, LIVR, CHEM7F ####Testing performed at [address] [address] AST [Catalytic activity/Vol] 55 U/L High 15-41 [facility] Comment on above: Performed By: #### P T, ACBC, DDIMER, LIVR, CHEM7F ####Testing performed at [address] [address] Bilirubin [Mass/Vol] 0.8 mg/dL Normal 0.2-1.2 [facility] Comment on above: Performed By: #### P T, ACBC, DDIMER, LIVR, CHEM7F ####Testing performed at [address] [address] Bilirubin.indirect [Mass/Vol] 0.2 mg/dL Normal 0.0-0.2 [facility] Comment on above: Performed By: #### P T, ACBC, DDIMER, LIVR, CHEM7F ####Testing performed at [place] [id number] Protein [Mass/Vol] 7.0 g/dL Normal 6.3-8.2 [facility] Comment on above: Performed By: #### P T, ACBC, DDIMER, LIVR, CHEM7F ####Testing performed at [place] [id number] No Panel Informationon 02-16 Interpretation and review of laboratory results Abnormal [facility] PROTIMEon 02-16-2023 INR Coag (PPP) [Relative time] 0.94 {INR} Normal 0.85-1.10 [facility] Comment on above: Result Comment: 2.0-3.0 THERAPEUTIC RANGE 2.5-3.5 MECHANICAL VALVE RANGE Performed By: #### P T, ACBC, DDIMER, LIVR, CHEM7F #### Testing performed at [address] [address] PT Coag (PPP) [Time] 12.7 s Normal 11.8-14.4 [facility] Comment on above: Performed By: #### P T, ACBC, DDIMER, LIVR, CHEM7F #### Testing performed at [address] [address] PROTIME-INRon 02-16-2023 INR Coag (PPP) [Relative time] 0.94 {INR} 0.85 - 1.10 [facility] Comment on above: 2.0-3.0 THERAPEUTIC RANGE 2.5-3.5 MECHANICAL VALVE RANGE PT Coag (PPP) [Time] 12.7 s [facility] XR CHEST AP/PA AND LATon XR CHEST AP/PA AND LAT EXAMINATION: XR CHEST AP/PA AND LAT 11/05/2022 5:06 pm HISTORY: ORDERING SYSTEM PROVIDED HISTORY: sob, TECHNOLOGIST PROVIDED HISTORY: Illness/Other Reason for exam: short of breath Cancer History: unknown Surgery, RadiationHistory: unknown Encounter Type: Initial Additional signs and symptoms: Patient Ambulatory To ER Per Self With Surgical Mask in Place With Reports of Cough, Throat Pain, Chills, Body Aches, and Ear Pain x 1 Week. Patient Reports She Feels She May Have Covid. Denies Known Exposure. Patient is Alert. Skin [place], Warm and Dry. Respirations Non-Labored ORDERING SYSTEM PROVIDED DIAGNOSIS CODES: COMPARISON: 12/28/2021 FINDINGS: The lungs are clear. There is no focal lung consolidation, pleural effusion or pneumothorax. Pulmonary vasculature is within normal limits. The cardiomediastinal silhouette is the upper limits of normal to borderline enlarged. There is fusion instrumentation in the cervical spine. IMPRESSION: 1. No acute cardiopulmonary disease. Workstation ID: [id number] Dictated by: MAIRA MARTINEZ on ThuNov 05, 2022 5:49:29 PM EST Transcribed by: MAIRA MARTINEZ on ThuNov 05, 2022 5:49:29 PM EST Finalized by: MAIRA MARTINEZ on ThuNov 05, 2022 5:49:29 PM EST Normal [facility] Comment on above: Order Comment: Injur y/Trauma or Illness?:Illness/Other How long have you had these symptoms (acute/chronic)?:Acute Reason for exam?:short of breath History of cancer?:unknown Surgeries, chemotherapy, or radiation?:unknown Type of Exam?:Initial Additional signs and symptoms?:Patient Ambulatory To ER Per Self With Surgical Mask in Place With Reports of Cough, Throat Pain, Chills, Body Aches, and Ear Pain x 1 Week. Patient Reports She Feels She May Have Covid. Denies Known Exposure. Patient is Alert. Skin [place], Warm and Dry. Respirations Non-Labored CYSTOSCOPYon 10-15-2022 Kay Roe 10/15/2022 1:23 PM CYSTOSCOPY Date/Time: 10/15/2022 1:00 PM Performed by: Av Delgado MD Authorized by: Av Delgado MD The attending physician was present for the entire procedure. Pre-Procedure: Detailed information of all possible complications and side effects were discussed with the patient, these include but not only; UTI, sepsis, hematuria, incontinence, urethral injury and cardiovascular complications. Informed consent was obtained. Does this procedure require a [place] Protocol? Yes. [place] Protocol is required. Urine was collected for testing. Procedure: Procedure performed: cystoscopyA 360 survey of the bladder was performed. [facility] GENERAL PROCEDUREon 10-15-19 23 Av Delgado MD 10/15/2022 1:22 PM error [facility] Av Delgado MD - 10/15/2022 1:00 PM EST Patient Name: Micheline Fox Preprocedure diagnosis Microscopic Hematuria, Urinary Frequency Postprocedure diagnosis Same as above. Procedure Flexible Cystourethroscopy Attending surgeon Av Delgado MD Complications None Indications 62 y.o. female undergoing a flexible cystoscopy for the above mentioned indications. Informed consent was obtained. Findings Cystoscopic findings included one right and left ureteral orifice in the normal anatomic position. Inflamed bladder mucosa with no tumors, masses or stones. The urethral urothelium was within normal limits with no strictures. mild chronic cystitis noted Workup negative for significant pathology. Start trimethoprimdaily, appropriate use and side effects reviewed. [facility] Radiology Study observation (narrative) [facility] No Panel Informationon 10-15 [facility] Radiology Study observation (narrative) [facility] POCT URINALYSIS DIPSTICK AUT OMATED W/O SCOPon 10-15-2022 Amorphous sediment LM Ql (Urine sed) [facility] Appearance (U) clear [facility] Bacteria LM Ql (Urine sed) [facility] Bilirubin Ql (U) Negative [facility] Casts LM.LPF (Urine sed) [#/Area] [facility] Color (U) yellow [facility] Crystals LM Nom (Urine sed) [facility] Epithelial cells.squamous LM.HPF (Urine sed) [#/Area] [facility] Flow cytometry specialist review Mg (Unsp spec) [Interp] [facility] Glucose Auto test strip (U) [Mass/Vol] Negative mg/dL [facility] Ketones [Mass/Vol] Negative mg/dL [facility] Leukocyte esterase Qn (U) [facility] Leukocyte esterase Test strip Ql (U) Negative [facility] Nitrite Ql (U) Negative [facility] pH (U) 6.0 [pH] 5 - 7 [facility] Protein Ql (U) Negative mg/dL [facility] RBC LM.HPF (Urine sed) [#/Area] [facility] RBC Ql (U) santosh [facility] Specific gravity (U) [Rel density] 1.025 1.001 - 1.035 [facility] Transitional cells LM Ql (Urine sed) [facility] Urobilinogen Qn (U) 0.2 [facility] WBC LM.HPF (Urine sed) [#/Area] [facility] CT Abdomen and Pelvison 09-22 IMPRESSION: No renal or ureteral calculi or hydronephrosis Incidental right renal cyst benign with no follow-up required. Fatty infiltration of the liver RADIOLOGY EXAM:CT UROGRAM ABDOMEN/PELVIS W/ CT POST PROCESSING HISTORY: Urinary incontinence. Pain TECHNIQUE: CT abdomen and pelvis. Helically acquired axial images of the abdomen and pelvis from the diaphragm to the iliac crest and the iliac crest to the symphysis pubis. Sagittal and coronal multiplanar reconstructions. The examination was performed 100 cc Omnipaque 350 IV. No oral contrast Images without and with intravenous contrast in the excretory phase. Dose reduction techniques were achieved by using automated exposure control and/or adjustment of mA and/or kV according to patient size and/or use of iterative reconstruction technique. COMPARISON: CT abdomen and pelvis 04/26/2018 FINDINGS: LUNG BASES/LOWER CHEST: No acute findings LIVER: Moderately severe diffuse fatty infiltration of the liver. No focal lesions. BILIARY TREE/GALLBLADDER: Gallbladder removed PANCREAS:There is no definite abnormality. SPLEEN: Normal ADRENAL GLANDS: No evidence of an adrenal lesion. KIDNEYS: No renal or ureteral calculi. No hydronephrosis. Incidental cyst midportion right kidney anterior renal cortex axial image 73 measures 8 mm benign with no follow-up required. No hyperattenuating masses. The calyces, infundibula, and renal pelvis and right and left ureters are unremarkable. VESSELS:Marked calcification of the abdominal aorta and branch vessels. No aneurysm. LYMPH NODES: No evidence of significantly enlarged lymph nodes. GI Tract: No bowel dilatation to suggest obstruction. The terminal ileum is normal. The appendix is not visualized. Previous surgical intervention noted about the stomach. PERITONEUM: No free fluid. No free air. PELVIS AND REPRODUCTIVE ORGANS: Uterus removed BLADDER:The urinary bladder is unremarkable. ABDOMINAL WALL: Normal BONES: Interbody spacer metallic L4-L5. RADIOLOGY Digna Tinajero MD - 10/10/2022 EXAM:CT UROGRAM ABDOMEN/PELVIS W/ CT POST PROCESSING HISTORY: Urinary incontinence. Pain TECHNIQUE: CT abdomen and pelvis. Helically acquired axial images of the abdomen and pelvis from the diaphragm to the iliac crest and the iliac crest to the symphysis pubis. Sagittal and coronal multiplanar reconstructions. The examination was performed 100 cc Omnipaque 350 IV. No oral contrast Images without and with intravenous contrast in the excretory phase. Dose reduction techniques were achieved by using automated exposure control and/or adjustment of mA and/or kV according to patient size and/or use of iterative reconstruction technique. COMPARISON: CT abdomen and pelvis 04/26/2018 FINDINGS: LUNG BASES/LOWER CHEST: No acute findings LIVER: Moderately severe diffuse fatty infiltration of the liver. No focal lesions. BILIARY TREE/GALLBLADDER: Gallbladder removed PANCREAS:There is no definite abnormality. SPLEEN: Normal ADRENAL GLANDS: No evidence of an adrenal lesion. KIDNEYS: No renal or ureteral calculi. No hydronephrosis. Incidental cyst midportion right kidney anterior renal cortex axial image 73 measures 8 mm benign with no follow-up required. No hyperattenuating masses. The calyces, infundibula, and renal pelvis and right and left ureters are unremarkable. VESSELS:Marked calcification of the abdominal aorta and branch vessels. No aneurysm. LYMPH NODES: No evidence of significantly enlarged lymph nodes. GI Tract: No bowel dilatation to suggest obstruction. The terminal ileum is normal. The appendix is not visualized. Previous surgical intervention noted about the stomach. PERITONEUM: No free fluid. No free air. PELVIS AND REPRODUCTIVE ORGANS: Uterus removed BLADDER:The urinary bladder is unremarkable. ABDOMINAL WALL: Normal BONES: Interbody spacer metallic L4-L5. IMPRESSION IMPRESSION: No renal or ureteral calculi or hydronephrosis Incidental right renal cyst benign with no follow-up required. Fatty infiltration of the liver [facility] CT Abdomen and PelvisOrdered By: Digna Tinajero on 10-10-2022 [facility] Work Phone: CT Abdomen and Pelvison 09-21 Radiology Study observation (narrative) [facility] POCT URINALYSIS DIPSTICK AUT OMATED W/O SCOPon 10-01-2022 Amorphous sediment LM Ql (Urine sed) [facility] Appearance (U) clear [facility] Bacteria LM Ql (Urine sed) [facility] Bilirubin Ql (U) Negative [facility] Casts LM.LPF (Urine sed) [#/Area] [facility] Color (U) yellow [facility] Crystals LM Nom (Urine sed) [facility] Epithelial cells.squamous LM.HPF (Urine sed) [#/Area] [facility] Flow cytometry specialist review Mg (Unsp spec) [Interp] [facility] Glucose Auto test strip (U) [Mass/Vol] Negative mg/dL [facility] Ketones [Mass/Vol] Negative mg/dL [facility] Leukocyte esterase Qn (U) [facility] Leukocyte esterase Test strip Ql (U) TRACE [facility] Nitrite Ql (U) Negative [facility] pH (U) 5.0 [pH] 5 - 7 [facility] Protein Ql (U) Negative mg/dL [facility] RBC LM.HPF (Urine sed) [#/Area] [facility] RBC Ql (U) Negative [facility] Specific gravity (U) [Rel density] 1.010 1.001 - 1.035 [facility] Transitional cells LM Ql (Urine sed) [facility] Urobilinogen Qn (U) 0.2 [facility] WBC LM.HPF (Urine sed) [#/Area] [facility] CBC, EDIF, PLATELETon 2021 Basophils/100 WBC (Bld) 0 % 0.0 - 2.0 % [facility] Differential cell count method Nom (Bld) AUTO DIFF % [facility] Eosinophils/100 WBC (Bld) 3 % 0.0 - 11.0 % [facility] Erythrocyte distribution width (RBC) [Ratio] 15.0 % High 11.5 - 14.5 % [facility] Comment on above: CORRECTED ON 09/01 A T 1943: PREVIOUSLY REPORTED 14.5 Hematocrit (Bld) [Volume fraction] 42.6 % 36.0 - 48.0 % [facility] Comment on above: CORRECTED ON 09/01 A T 1943: PREVIOUSLY REPORTED 42.8 Hemoglobin (Bld) [Mass/Vol] 14.2 g/dL [facility] Comment on above: CORRECTED ON 09/01 A T 1943: PREVIOUSLY REPORTED 14.5 Interpretation and review of laboratory results Abnormal [facility] Lymphocytes/100 WBC (Bld) 36 % 20.0 - 55.0 % [facility] MCH (RBC) [Entitic mass] 30.4 pg 26.0 - 35.0 PG [facility] Comment on above: CORRECTED ON 09/01 A T 1943: PREVIOUSLY REPORTED 30.8 MCHC (RBC) [Mass/Vol] 33.3 g/dL [facility] Comment on above: CORRECTED ON 09/01 A T 1943: PREVIOUSLY REPORTED 34.0 MCV (RBC) [Entitic vol] 91.4 fL [facility] Comment on above: CORRECTED ON 09/01 A T 1943: PREVIOUSLY REPORTED 90.7 Monocytes/100 WBC (Bld) 7 % 0.0 - 10.0 % [facility] Neutrophils/100 WBC (Bld) 54 % 37.0 - 75.0 % [facility] Platelet mean volume (Bld) [Entitic vol] 9.5 fL [facility] Comment on above: CORRECTED ON 09/01 A T 1943: PREVIOUSLY REPORTED 10.6 Platelets (Bld) [#/Vol] 93 10*3/uL Low 130.0 - 400.0 10*3/uL [facility] Comment on above: CORRECTED ON 09/01 A T 1943: PREVIOUSLY REPORTED 126 RBC (Bld) [#/Vol] 4.66 10*6/uL 4.0 - 5.4 10*6/uL [facility] Comment on above: CORRECTED ON 09/01 A T 1943: PREVIOUSLY REPORTED 4.72 WBC (Bld) [#/Vol] 3.3 10*3/uL Low 3.6 - 11.0 10*3/uL [facility] Comment on above: Result called to guillaume pfeiffer back by: Roberta MENDOZASENDY 09/01/2022 @ 19:44 by ILDEFONSO CORRECTED ON 09/01 AT 1944: PREVIOUSLY REPORTED 4.0 [facility] COMPREHENSIVE METABOLIC PANE José 09-01-2022 Albumin [Mass/Vol] 4.2 G/dl 3.5 - 5.0 G/dl [facility] Albumin/Globulin [Mass ratio] 1.4 {ratio} [facility] ALP [Catalytic activity/Vol] 62 U/L [facility] ALT [Catalytic activity/Vol] 30 U/L [facility] AST [Catalytic activity/Vol] 28 U/L [facility] Bilirubin [Mass/Vol] 0.8 mg/dL [facility] Calcium [Mass/Vol] 9.0 mg/dL [facility] Chloride [Moles/Vol] 103 mmol/L [facility] CO2 [Moles/Vol] 28 mmol/L [facility] Creatinine [Mass/Vol] 0.94 mg/dL [facility] GFR COMMENT Average GFR for 60-6 9 years old = 85. [facility] Comment on above: Chronic Kidney disea se, GFR = <60. Kidney failure, GFR = <15. The GFR estimate is not adjusted for extreme body surface area or acute process, nor has it been validated for women or ethnic groups other than and . GFR/1.73 sq M.predicted among blacks MDRD (S/P/Bld) [Vol rate/Area] 78 mL/min/{1.73_m2} ml/min/1.73sq .m [facility] GFR/1.73 sq M.predicted among non-blacks MDRD (S/P/Bld) [Vol rate/Area] 64 mL/min/{1.73_m2} ml/min/1.73sq .m [facility] Glucose post fast [Mass/Vol] 106 mg/dL High [facility] Comment on above: NORMAL <100 mg/dL PREDIABETES 101-126 mg/dL DIABETES 126 mg/dL or higher Interpretation and review of laboratory results Abnormal [facility] Potassium [Moles/Vol] 3.2 mmol/L Low [facility] Protein [Mass/Vol] 7.1 g/dL [facility] Sodium [Moles/Vol] 140 mmol/L [facility] Urea nitrogen [Mass/Vol] 14 mg/dL [facility] INFLUENZA A AND B, PCRon FLUAV and FLUBV Ag IF Nom (Unsp spec) Negative NEGATIVE [facility] FLUBV Ag IA Ql (Unsp spec) Negative NEGATIVE [facility] Comment on above: TESTING PERFORMED BY KRANTHI [facility] NOVEL CORONAVIRUS LAB 1 - NA SOPHARYNGEALon 09-01-2022 Interpretation and review of laboratory results Abnormal [facility] NARRATIVE -1 This test was performed using isothermal KRANTHI and has been approved as Emergency Use Authorization (EUA) for the qualitative detection [id number] nucleic acid. [facility] SARS-CoV-2 (COVID-19) RNA KRANTHI+probe Ql (Unsp spec) Detected Abnormal NOT DETECTED [facility] Comment on above: ENHANCED CONTACT, AN D DROPLET ISOLATION IS REQUIRED FOR INPATIENTS WITH SARS-CoV-2. [facility] XR Chest PA uprighton 2021 IMPRESSION: The heart is borderline enlarged without cardiac decompensation. The left lung base is partially obscured. There is no clear evidence of a focal infiltrate or effusion. The overall appearance of the chest does not appear to change significantly. RADIOLOGY EXAM: XR CHEST PA 1 VIEW at 1647 hours HISTORY: cough and shortness of breath COMPARISON: 01/27/2022 TECHNIQUE: AP upright portable chest x-ray FINDINGS: The heart is borderline enlarged without overt cardiac decompensation. The left lung base is partially obscured by the cardiac silhouette. No acute infiltrate, effusion or pneumothorax is otherwise identified. The osseous structures are grossly intact. Hardware projects over the lower cervical spine. RADIOLOGY Alex Nino MD - 09/01/2022 EXAM: XR CHEST PA 1 VIEW at 1647 hours HISTORY: cough and shortness of breath COMPARISON: 01/27/2022 TECHNIQUE: AP upright portable chest x-ray FINDINGS: The heart is borderline enlarged without overt cardiac decompensation. The left lung base is partially obscured by the cardiac silhouette. No acute infiltrate, effusion or pneumothorax is otherwise identified. The osseous structures are grossly intact. Hardware projects over the lower cervical spine. IMPRESSION IMPRESSION: The heart is borderline enlarged without cardiac decompensation. The left lung base is partially obscured. There is no clear evidence of a focal infiltrate or effusion. The overall appearance of the chest does not appear to change significantly. [facility] Radiology Study observation (narrative) [facility] XR Chest PA uprightOrdered B y: Alex Nino on 09-01-2022 [facility] Work Phone: NOVEL CORONAVIRUS (COVID-19) on 08-08-2022 SARS-CoV-2 (COVID-19) RNA KRANTHI+probe Ql (Unsp spec) Not detected Not Detected [facility] Comment on above: This assay was perfo rmed using Cr[employer] Acid Amplification technology (RTPCR). SARS-CoV-2 (COVID-19) RNA NA A+probe Ql (Unsp spec)on 08-08-2022 Interpretation and review of laboratory results Normal [facility] SARS-CoV-2 (COVID-19) Ab IA Ql Not Detected results are indicative of the absence of SARS-CoV-2 in the specimen submitted for testing. False negative results are possible based on the timing and quality of specimen submitted for testing. This test is intended for use only under Emergency Use Authorization (EUA). This test was developed, and its performance characteristics determined by [facility] [employer] which is certified under CLIA as qualified to perform high complexity clinical laboratory testing. [facility] Cardiologyon 07-28-2022 P wave axis 6 degrees [facility] P-R Interval 184 ms [facility] Q-T interval 412 ms [facility] Q-T interval corrected 438 ms [facility] QRS axis 35 degrees [facility] QRS duration 86 ms [facility] T wave axis 37 degrees [facility] No Panel Informationon 07-28 Diagnosis Normal sinus rhythm with sinus arrhythmia Normal ECG No previous ECGs available Confirmed by RAKESH SHOEMAKER ([id number]) on 07/28/2022 5:37:49 PM [facility] P wave [facility] by EKG 68 BPM Metr [facility] Basic metabolic 2000 panelon 04-23-2022 Anion gap [Moles/Vol] 14 mmol/L [facility] Calcium [Mass/Vol] 9.6 mg/dL 8.4 - 10. 4 mg/dL [facility] Chloride [Moles/Vol] 100 mmol/L 97 - 11 1 mmol/L [facility] CO2 [Moles/Vol] 28 mmol/L 21 - 30 mmol/L [facility] Creatinine [Mass/Vol] 1.33 mg/dL High 0.50 - 1.10 mg/dL [facility] GFR/1.73 sq M.predicted MDRD (S/P/Bld) [Vol rate/Area] 46 mL/min/{1.73_m2} Low >=60 mL/min/1.73sq m [facility] Comment on above: 2020 CKD EPI Equatio n using Creatinine without Race Comment: Estimated glomerular filtration rate (eGFR) is calculated without a race coefficient. Values should be interpreted in the context of the patient's full clinical presentation. Reference: 1. Marco A C, Marcy M, Nelida WALTON, et al.. A Unifying Approach for GFR Estimation: Recommendations of the NKF-ASN Task Force on Reassessing the Inclusion of Race in Diagnosing Kidney Disease. [place] Journal of Kidney Diseases 2021;79(2):268-88.e1. 2. N Engl J Med 1 Vol. 385 Issue 19 Pages 6761-2080 Glucose [Mass/Vol] 111 mg/dL 80 - 116 mg/dL [facility] Interpretation and review of laboratory results Abnormal [facility] Potassium [Moles/Vol] 3.3 mmol/L 3.3 - 5.3 mmol/L [facility] Sodium [Moles/Vol] 139 mmol/L 135 - 148 mmol/L [facility] Urea nitrogen [Mass/Vol] 14 mg/dL 8 - 22 mg/dL [facility] CBC panel Auto (Bld)on 04-23 Erythrocyte distribution width (RBC) [Ratio] 13.4 % 11.5 - 14.5 % [facility] Hematocrit (Bld) [Volume fraction] 43.7 % 36.0 - 46.0 % [facility] Hemoglobin (Bld) [Mass/Vol] 15.2 g/dL High 12.0 - 15.0 g/dL [facility] Interpretation and review of laboratory results Abnormal [facility] MCH (RBC) [Entitic mass] 30.8 pg 26.0 - 34.0 pg [facility] MCHC (RBC) [Mass/Vol] 34.8 g/dL 32.0 - 35.9 g/dL [facility] MCV (RBC) [Entitic vol] 89 fL 80 - 100 fL [facility] Platelet mean volume (Bld) [Entitic vol] 10.3 fL 7.5 - 11.2 fL [facility] Platelets (Bld) [#/Vol] 137 10*3/uL Low 150 - 400 K/uL [facility] RBC (Bld) [#/Vol] 4.94 10*6/uL [facility] WBC (Bld) [#/Vol] 5.8 10*3/uL 4.5 - 11.5 K/uL [facility] Diabetes tracking panelOrder ed By: Tj Slaughter on 04-23-2022 Average glucose Estimated from glycated hemoglobin (Bld) [Mass/Vol] 91 mg/dL [facility] HbA1c (Bld) [Mass fraction] 4.8 % 4.0 - 5.6 % [facility] Laboratory - Chemistry and C hemistry - challengeon 04-23-2022 Albumin [Mass/Vol] 4.6 g/dL 3.4 - 5.1 g/dL [facility] ALP [Catalytic activity/Vol] 68 U/L [facility] ALT [Catalytic activity/Vol] 35 U/L [facility] AST [Catalytic activity/Vol] 29 U/L [facility] Bilirubin [Mass/Vol] 1.0 mg/dL 0.1 - 1 .5 mg/dL [facility] Bilirubin.direct [Mass/Vol] 0.20 mg/dL 0.10 - 0.30 mg/dL [facility] Protein [Mass/Vol] 6.4 g/dL 5.7 - 8.1 g/dL [facility] Laboratory - Coagulationon 0 04-23-2022 INR Coag (PPP) [Relative time] 1.07 {INR} [facility] PT Coag (PPP) [Time] 12.1 s [facility] Lipid 1996 panelon 2 Cholesterol [Mass/Vol] 208 mg/dL High <200 [facility] Cholesterol in HDL [Mass/Vol] 42 mg/dL Low >54 [facility] Cholesterol in LDL [Mass/Vol] 144 mg/dL High <111 [facility] Cholesterol in LDL/Cholesterol in HDL [Mass ratio] 3.43 {ratio} <3.57 [facility] Cholesterol non HDL [Mass/Vol] 166 mg/dL High <130 [facility] Cholesterol.total/Cho lesterol in HDL [Mass ratio] 4.95 {ratio} <5.00 [facility] Interpretation and review of laboratory results Abnormal [facility] Triglyceride [Mass/Vol] 172 mg/dL High <151 [facility] No Panel Informationon 04-23 AFP 2.6 ng/mL <=8.4 [facility] Interpretation and review of laboratory results Normal [facility] Interpretation and review of laboratory results Normal [facility] Interpretation and review of laboratory results Normal [facility] C REACTIVE PROTEINon 022 CRP [Mass/Vol] mg/L 0 - 10.0 MG/L [facility] CBC, EDIF, PLATELETon 2021 ABSOLUTE BASOPHIL COUNT 0.0 10*3/uL 0.0 - 0.2 10*3/uL [facility] Basophils/100 WBC (Bld) 0.4 % 0.0 - 2.0 % [facility] Differential cell count method Nom (Bld) AUTO DIFF % [facility] Eosinophils (Bld) [#/Vol] 0.20 10*3/uL 0.0 - 0.7 10*3/uL [facility] Eosinophils/100 WBC (Bld) 7.0 % 0.0 - 11.0 % [facility] Erythrocyte distribution width (RBC) [Ratio] 13.5 % 11.5 - 14.5 % [facility] Hematocrit (Bld) [Volume fraction] 34.0 % Low 36.0 - 48.0 % [facility] Hemoglobin (Bld) [Mass/Vol] 11.7 g/dL Low [facility] Interpretation and review of laboratory results Abnormal [facility] Lymphocytes (Bld) [#/Vol] 1.00 10*3/uL Low 1.2 - 3.4 10*3/uL [facility] Lymphocytes/100 WBC (Bld) 34.5 % 20.0 - 55.0 % [facility] MCH (RBC) [Entitic mass] 31.5 pg 26.0 - 35.0 PG [facility] MCHC (RBC) [Mass/Vol] 34.4 g/dL [facility] MCV (RBC) [Entitic vol] 91.8 fL [facility] Monocytes (Bld) [#/Vol] 0.2 10*3/uL 0.0 - 0.7 10*3/uL [facility] Monocytes/100 WBC (Bld) 6.2 % 0.0 - 10.0 % [facility] Neutrophils (Bld) [#/Vol] 1.6 10*3/uL 1.4 - 6.5 10*3/uL [facility] Neutrophils/100 WBC (Bld) 51.9 % 37.0 - 75.0 % [facility] Platelet mean volume (Bld) [Entitic vol] 11.5 fL High [facility] Platelets (Bld) [#/Vol] 77 10*3/uL Low 130.0 - 400.0 10*3/uL [facility] RBC (Bld) [#/Vol] 3.70 10*6/uL Low 4.0 - 5.4 10*6/uL [facility] WBC (Bld) [#/Vol] 3.0 10*3/uL Low 3.6 - 11.0 10*3/uL [facility] COMPREHENSIVE METABOLIC PANE José 01-31-2022 Albumin [Mass/Vol] 3.5 G/dl 3.5 - 5.0 G/dl [facility] Albumin/Globulin [Mass ratio] 1.8 {ratio} [facility] ALP [Catalytic activity/Vol] 47 U/L [facility] ALT [Catalytic activity/Vol] 38 U/L [facility] AST [Catalytic activity/Vol] 31 U/L [facility] Bilirubin [Mass/Vol] 0.6 mg/dL [facility] Calcium [Mass/Vol] 8.4 mg/dL [facility] Chloride [Moles/Vol] 108 mmol/L [facility] CO2 [Moles/Vol] 28 mmol/L [facility] Creatinine [Mass/Vol] 0.96 mg/dL [facility] GFR COMMENT Average GFR for 60-6 9 years old = 85. [facility] Comment on above: Chronic Kidney disea se, GFR = <60. Kidney failure, GFR = <15. The GFR estimate is not adjusted for extreme body surface area or acute process, nor has it been validated for women or ethnic groups other than and . GFR/1.73 sq M.predicted among blacks MDRD (S/P/Bld) [Vol rate/Area] 76 mL/min/{1.73_m2} ml/min/1.73sq .m [facility] GFR/1.73 sq M.predicted among non-blacks MDRD (S/P/Bld) [Vol rate/Area] 63 mL/min/{1.73_m2} ml/min/1.73sq .m [facility] Glucose post fast [Mass/Vol] 104 mg/dL High [facility] Comment on above: NORMAL <100 mg/dL PREDIABETES 101-126 mg/dL DIABETES 126 mg/dL or higher Interpretation and review of laboratory results Abnormal [facility] Potassium [Moles/Vol] 3.5 mmol/L [facility] Protein [Mass/Vol] 5.5 g/dL Low [facility] Sodium [Moles/Vol] 142 mmol/L [facility] Urea nitrogen [Mass/Vol] 17 mg/dL [facility] CT Head WO contraston 2021 IMPRESSION: 1. No acute intracranial abnormality. 2. Mild chronic microvascular ischemic white matter disease. 3. Unchanged calcified left parietal meningioma. RADIOLOGY EXAMINATION: CT HEAD WITHOUT CONTRAST HISTORY: Drowsiness, impaired gait COMPARISON: None. TECHNIQUE: CT examination of the head without IV contrast. Dose reduction techniques were achieved by using automated exposure control and/or adjustment of mA and/or kV according to patient size and/or use of iterative reconstruction technique. FINDINGS: The ventricles, sulci, and remaining CSF containing spaces maintain age-appropriate volume and symmetry. No herniation or hydrocephalus. The barth matter/white matter differentiation is maintained throughout. No CT evidence of contemporary infarction. No acute intracranial hemorrhage or parenchymal mass. Calcification at the inner table of the left parietal bone measuring 1.1 x 0.8 cm, unchanged. Periventricular regions of decreased attenuation. The calvarium and skull base are intact. The pneumatized portions of the skull are clear. Atherosclerotic vascular calcifications. RADIOLOGY BradySilas decker MD - 01/31/2022 EXAMINATION: CT HEAD WITHOUT CONTRAST HISTORY: Drowsiness, impaired gait COMPARISON: None. TECHNIQUE: CT examination of the head without IV contrast. Dose reduction techniques were achieved by using automated exposure control and/or adjustment of mA and/or kV according to patient size and/or use of iterative reconstruction technique. FINDINGS: The ventricles, sulci, and remaining CSF containing spaces maintain age-appropriate volume and symmetry. No herniation or hydrocephalus. The barth matter/white matter differentiation is maintained throughout. No CT evidence of contemporary infarction. No acute intracranial hemorrhage or parenchymal mass. Calcification at the inner table of the left parietal bone measuring 1.1 x 0.8 cm, unchanged. Periventricular regions of decreased attenuation. The calvarium and skull base are intact. The pneumatized portions of the skull are clear. Atherosclerotic vascular calcifications. IMPRESSION IMPRESSION: 1. No acute intracranial abnormality. 2. Mild chronic microvascular ischemic white matter disease. 3. Unchanged calcified left parietal meningioma. [facility] WO contrastOrdered B y: Silas Abreu on 01-31-2022 [facility] Work Phone: MAGNESIUMon 01-31-2022 Magnesium [Mass/Vol] 2.1 mg/dL [facility] No Panel Informationon 01-31 [facility] PROTIME-INRon 01-31-2022 INR Coag (PPP) [Relative time] 0.92 {INR} [facility] Comment on above: 2.0-3.0 THERAPEUTIC RANGE 2.5-3.5 MECHANICAL VALVE RANGE PT Coag (PPP) [Time] 12.6 s [facility] SEDIMENTATION RATE, AUTOMATE Don 01-31-2022 ESR (Bld) [Velocity] 6 mm/h [facility] C REACTIVE PROTEINon 022 CRP [Mass/Vol] mg/L 0 - 10.0 MG/L [facility] CBC, EDIF, PLATELETon 2021 ABSOLUTE BASOPHIL COUNT 0.0 10*3/uL 0.0 - 0.2 10*3/uL [facility] Basophils/100 WBC (Bld) 0.6 % 0.0 - 2.0 % [facility] Differential cell count method Nom (Bld) AUTO DIFF % [facility] Eosinophils (Bld) [#/Vol] 0.20 10*3/uL 0.0 - 0.7 10*3/uL [facility] Eosinophils/100 WBC (Bld) 6.1 % 0.0 - 11.0 % [facility] Erythrocyte distribution width (RBC) [Ratio] 13.6 % 11.5 - 14.5 % [facility] Hematocrit (Bld) [Volume fraction] 34.5 % Low 36.0 - 48.0 % [facility] Hemoglobin (Bld) [Mass/Vol] 11.9 g/dL Low [facility] Interpretation and review of laboratory results Abnormal [facility] Lymphocytes (Bld) [#/Vol] 1.10 10*3/uL Low 1.2 - 3.4 10*3/uL [facility] Lymphocytes/100 WBC (Bld) 31.9 % 20.0 - 55.0 % [facility] MCH (RBC) [Entitic mass] 31.6 pg 26.0 - 35.0 PG [facility] MCHC (RBC) [Mass/Vol] 34.4 g/dL [facility] MCV (RBC) [Entitic vol] 92.0 fL [facility] Monocytes (Bld) [#/Vol] 0.2 10*3/uL 0.0 - 0.7 10*3/uL [facility] Monocytes/100 WBC (Bld) 5.7 % 0.0 - 10.0 % [facility] Neutrophils (Bld) [#/Vol] 2.0 10*3/uL 1.4 - 6.5 10*3/uL [facility] Neutrophils/100 WBC (Bld) 55.7 % 37.0 - 75.0 % [facility] Platelet mean volume (Bld) [Entitic vol] 11.2 fL High [facility] Platelets (Bld) [#/Vol] 89 10*3/uL Low 130.0 - 400.0 10*3/uL [facility] RBC (Bld) [#/Vol] 3.75 10*6/uL Low 4.0 - 5.4 10*6/uL [facility] WBC (Bld) [#/Vol] 3.6 10*3/uL 3.6 - 11.0 10*3/uL [facility] COMPREHENSIVE METABOLIC PANE José 01-30-2022 Albumin [Mass/Vol] 3.4 G/dl Low 3.5 - 5.0 G/dl [facility] Albumin/Globulin [Mass ratio] 1.6 {ratio} [facility] ALP [Catalytic activity/Vol] 47 U/L [facility] ALT [Catalytic activity/Vol] 36 U/L [facility] AST [Catalytic activity/Vol] 29 U/L [facility] Bilirubin [Mass/Vol] 0.5 mg/dL [facility] Calcium [Mass/Vol] 8.4 mg/dL [facility] Chloride [Moles/Vol] 109 mmol/L High [facility] CO2 [Moles/Vol] 27 mmol/L [facility] Creatinine [Mass/Vol] 1.05 mg/dL High [facility] GFR COMMENT Average GFR for 60-6 9 years old = 85. [facility] Comment on above: Chronic Kidney disea se, GFR = <60. Kidney failure, GFR = <15. The GFR estimate is not adjusted for extreme body surface area or acute process, nor has it been validated for women or ethnic groups other than and . GFR/1.73 sq M.predicted among blacks MDRD (S/P/Bld) [Vol rate/Area] 69 mL/min/{1.73_m2} ml/min/1.73sq .m [facility] GFR/1.73 sq M.predicted among non-blacks MDRD (S/P/Bld) [Vol rate/Area] 57 mL/min/{1.73_m2} ml/min/1.73sq .m [facility] Glucose post fast [Mass/Vol] 120 mg/dL High [facility] Comment on above: NORMAL <100 mg/dL PREDIABETES 101-126 mg/dL DIABETES 126 mg/dL or higher Interpretation and review of laboratory results Abnormal [facility] Potassium [Moles/Vol] 3.6 mmol/L [facility] Protein [Mass/Vol] 5.5 g/dL Low [facility] Sodium [Moles/Vol] 141 mmol/L [facility] Urea nitrogen [Mass/Vol] 22 mg/dL High [facility] CT Head WO contraston 2021 Radiology Study observation (narrative) [facility] ECGon 01-30-2022 [facility] ECGOrdered By: Phill champagne on 01-30-2022 [facility] Work Phone: HEPATITIS A, B, Con 01-31-20 HBV surface Ag IA Ql Negative NEGATIVE [facility] [employer] [facility] Hep A AB (IGG + IGM) Positive Abnormal NEGATIVE [facility] [employer] [facility] Comment on above: Specimen is positive for HAV, sent to reference lab for HAVAb, IgM. Positive indicates a reactive sample and the presence of HAV Ab, individual has been previously infected or is presumed to be immune to HAV infection. HEP B CORE AB,TOTAL(IGG+IGM) Reactive Abnormal NEGATIVE [facility] Comment on above: Specimen is presumed reactive for HBc Ab Hep B Surf AB Positive POSITIVE [facility] Comment on above: Clinical Interpretation of Immune Status Negative: patient is considered to be not immune to infection with HBV Intermediate: unable to determine if anti-HBs is present at levels consistent with immunity Positive: anti-HBs detected, patient is considered to be immune to infection with HBV HEP C AB Reactive Abnormal NEGATIVE [facility] Comment on above: HCV Ab IgG detected, patient is presumed to be infected, state or associated disease not determined Interpretation and review of laboratory results Abnormal [facility] MAGNESIUMon 01-30-2022 Magnesium [Mass/Vol] 2.1 mg/dL [facility] [employer] [facility] No Panel Informationon 01-30 Interpretation and review of laboratory results Abnormal [facility] PROTIME-INRon 01-30-2022 INR Coag (PPP) [Relative time] 0.88 {INR} [facility] Comment on above: 2.0-3.0 THERAPEUTIC RANGE 2.5-3.5 MECHANICAL VALVE RANGE PT Coag (PPP) [Time] 12.2 s [facility] [employer] [facility] [employer] [facility] SEDIMENTATION RATE, AUTOMATE Don 01-30-2022 ESR (Bld) [Velocity] 5 mm[facility]h [facility] SPECT Heart perfusion at res t and W stress and W radionuclide Suzanna 01-30-2022 APPROVED REPORT NM EXAM: Myocardial Perfusion REST/STRESS Imaging Protocol: Rest Tc-99m/Stress Tc-99m 1 day Nuclear Conclusion ECG Findings: negative for ischemia Clinical Findings: negative for ischemia Nuclear Findings: equivocal Exercise Capacity: not assessed Left Ventricular Function: normal Risk Study: low Small stress-induced area of lateral hypoperfusion of 5% without provokable symptoms or ST segment changes possible artifact. No large areas of jeopardized myocardium. Study Data Post stress, the left ventricular ejection fraction was 60.0%. SSS: SRS: SDS: 0 TID = 0.82. Wall Motion Normal left ventricular size and function with no regional wall motion abnormalities. Resting Data Rest SPECT myocardial perfusion imaging was performed in supine position following the intravenous injection of 9.6 mCi of Tc-99m Sestamibi. Time of rest injection: 624 Time of rest imaging: Administration Route: IV Administration Site: Right Arm Pharmacologic Stress Pharmacologic stress test was performed by injecting Regadenoson 0.4 mg IV push followed by the intravenous injection of 29.97 mCi of Tc-99m Sestamibi. Time of stress injection: 741 Time of stress imaging: Administration Route: IV Administration Site: Right Arm The images were gated to evaluate regional wall motion and calculate left ventricular ejection fraction. Comments last caffeine, yesterday around 6pm no history of seizures not or lexiscan nitropatch was on. removed around [address] Nicholas know; said to go ahead with test Stress ECG Conclusion Nondiagnostic stress test, O2 sat 98% Clinical Reason for Termination: End of Protocol Overall Exercise Capacity for Age: Not assessed on pharmacologic stress Scale: Sedentary Angina Score: None Stress Test Details Stress Test: Pharmacologic stress testing performed using 0.4 mg of regadenoson per 5 mL given IV over 10 seconds. Reason for pharmacologic stress test: physical limitation. HR Resting HR: 72 bpm Max Heart Rate (APMHR): 160.649624 bpm Max HR Achieved: 95 bpm Target HR (85% APMHR): 136.353725 bpm % of APMHR: 59.38 Recovery HR: 88 bpm HR response to stress: appropriate BP Resting BP: 138/90 mmHg Max BP: 138/90 mmHg BP response to stress: normal resting BP - appropriate response ECG Resting ECG: normal ST Change: none Arrhythmia: none Conclusion Nondiagnostic stress test, O2 sat 98% CARDIOLOGY Phill Nicholas DO - 01/30/2022 APPROVED REPORT NM EXAM: Myocardial Perfusion REST/STRESS Imaging Protocol: Rest Tc-99m/Stress Tc-99m 1 day Nuclear Conclusion ECG Findings: negative for ischemia Clinical Findings: negative for ischemia Nuclear Findings: equivocal Exercise Capacity: not assessed Left Ventricular Function: normal Risk Study: low Small stress-induced area of lateral hypoperfusion of 5% without provokable symptoms or ST segment changes possible artifact. No large areas of jeopardized myocardium. Study Data Post stress, the left ventricular ejection fraction was 60.0%. SSS: SRS: SDS: 0 TID = 0.82. Wall Motion Normal left ventricular size and function with no regional wall motion abnormalities. Resting Data Rest SPECT myocardial perfusion imaging was performed in supine position following the intravenous injection of 9.6 mCi of Tc-99m Sestamibi. Time of rest injection: 0625 Time of rest imaging: Administration Route: IV Administration Site: Right Arm Pharmacologic Stress Pharmacologic stress test was performed by injecting Regadenoson 0.4 mg IV push followed by the intravenous injection of 29.97 mCi of Tc-99m Sestamibi. Time of stress injection: 741 Time of stress imaging: Administration Route: IV Administration Site: Right Arm The images were gated to evaluate regional wall motion and calculate left ventricular ejection fraction. Comments last caffeine, yesterday around 6pm no history of seizures not or lexiscan nitropatch was on. removed around [address] Nicholas know; said to go ahead with test Stress ECG Conclusion Nondiagnostic stress test, O2 sat 98% Clinical Reason for Termination: End of Protocol Overall Exercise Capacity for Age: Not assessed on pharmacologic stress Scale: Sedentary Angina Score: None Stress Test Details Stress Test: Pharmacologic stress testing performed using 0.4 mg of regadenoson per 5 mL given IV over 10 seconds. Reason for pharmacologic stress test: physical limitation. HR Resting HR: 72 bpmMax Heart Rate (APMHR): 160.266842 bpm Max HR Achieved: 95 bpmTarget HR (85% APMHR): 136.552599 bpm % of APMHR: 59.38 Recovery HR: 88 bpm HR response to stress: appropriate BP Resting BP: 138/90 mmHg Max BP: 138/90 mmHg BP response to stress: normal resting BP - appropriate response ECG Resting ECG: normal ST Change: none Arrhythmia: none Conclusion Nondiagnostic stress test, O2 sat 98% [facility] Radiology Study observation (narrative) [facility] TOXICOLOGY DRUG SCREEN, URIN Abelardo 01-30-2022 Amphetamine (U) [Mass/Vol] Negative NEGATIVE NG/ML [facility] Comment on above: <500 ng/ml CUTOFF Barbiturates Screen Ql (U) Negative NEGATIVE NG/ML [facility] Comment on above: <200 ng/ml CUTOFF Benzodiazepines Ql (U) Positive Abnormal NEGATIVE NG/ML [facility] Comment on above: <150 ng/ml CUTOFF *Unconfirmed Screening Result* Unconfirmed screening results are to be used only for medical treatment purposes. Benzoylecgonine Ql (U) Negative NEGATIVE NG/ML [facility] Comment on above: <150 ng/ml CUTOFF Buprenorphine Ql (U) Negative NEGATIV E NG/ML [facility] Comment on above: <10 ng/ml CUTOFF Cannabinoids Screen Ql (U) Negative NEGATIVE NG/ML [facility] Comment on above: <50 ng/ml CUTOFF Interpretation and review of laboratory results Abnormal [facility] Methadone Screen Ql (U) Negative NEGATIVE NG/ML [facility] Comment on above: <200 ng/ml CUTOFF Methamphetamine (U) [Mass/Vol] Negative NEGATIVE NG/ML [facility] Comment on above: <500 ng/ml CUTOFF Opiates Screen Ql (U) Positive Abnormal NEGATI VE NG/ML [facility] Comment on above: <100 ng/ml CUTOFF *Unconfirmed Screening Result* Unconfirmed screening results are to be used only for medical treatment purposes. oxyCODONE Ql (U) Negative NEGATIVE NG/ML [facility] Comment on above: <100 ng/ml CUTOFF Phencyclidine Screen method >25 ng/mL Ql (U) Negative NEGATIVE NG/ML [facility] Comment on above: <25 ng/ml CUTOFF Propoxyphene+Norpropo xyphene Screen Ql (U) Negative NEGATIVE NG/ML [facility] Comment on above: <300 ng/ml CUTOFF Tricyclic antidepressants Screen Ql (U) Negative NEGATIVE NG/ML [facility] Comment on above: <300 ng/ml CUTOFF [facility] URINALYSIS, MACROon 01-31-20 22 Bilirubin Ql (U) Negative NEGATIVE [facility] Clarity (U) SLIGHTLY CLOUDY Abnormal CLEAR [facility] Color (U) YELLOW YELLOW [facility] Glucose Test strip (U) [Mass/Vol] Negative NEGATIVE mg/dl [facility] Hemoglobin Ql (U) Negative NEGATIVE [facility] Ketones (U) [Mass/Vol] Negative NEGATIVE mg/dl [facility] Leukocyte esterase Test strip Ql (U) TRACE Abnormal NEGATIVE [facility] Nitrite Ql (U) Negative NEGATIVE [facility] pH (U) 6.0 [pH] [facility] Protein Ql (U) Negative NEGATIVE mg/dl [facility] Specific gravity (U) [Rel density] 1.020 [facility] Urobilinogen (U) [Mass/Vol] 0.2 mg/dL [facility] URINE MICROSCOPICon 01-31-20 22 Bacteria LM.HPF (Urine sed) [#/Area] TRACE Abnormal NEGATIVE [facility] Casts LM.LPF (Urine sed) [#/Area] NONE NONE /LPF [facility] Crystals LM Nom (Urine sed) NONE NONE [facility] Epithelial cells LM Ql (Urine sed) 1 TO 5 /HPF [facility] Mucus Ql (Urine sed) Negative NEGATIVE [facility] RBC LM.HPF (Urine sed) [#/Area] Negative NEGATIVE /HPF [facility] Urine sediment comments LM Mg (Urine sed) REFLEX CULTURE PER ESTABLISHED CRITERIA. [facility] WBC LM.HPF (Urine sed) [#/Area] 1 TO 5 NEGATIVE /HPF [facility] C REACTIVE PROTEINon 022 CRP [Mass/Vol] mg/L 0 - 10.0 MG/L [facility] CBC, EDIF, PLATELETon 2021 ABSOLUTE BASOPHIL COUNT 0.0 10*3/uL 0.0 - 0.2 10*3/uL [facility] Basophils/100 WBC (Bld) 0.5 % 0.0 - 2.0 % [facility] Differential cell count method Nom (Bld) AUTO DIFF % [facility] Eosinophils (Bld) [#/Vol] 0.20 10*3/uL 0.0 - 0.7 10*3/uL [facility] Eosinophils/100 WBC (Bld) 7.2 % 0.0 - 11.0 % [facility] Erythrocyte distribution width (RBC) [Ratio] 13.5 % 11.5 - 14.5 % [facility] Hematocrit (Bld) [Volume fraction] 36.1 % 36.0 - 48.0 % [facility] Hemoglobin (Bld) [Mass/Vol] 12.4 g/dL [facility] Interpretation and review of laboratory results Abnormal [facility] Lymphocytes (Bld) [#/Vol] 1.10 10*3/uL Low 1.2 - 3.4 10*3/uL [facility] Lymphocytes/100 WBC (Bld) 35.4 % 20.0 - 55.0 % [facility] MCH (RBC) [Entitic mass] 31.6 pg 26.0 - 35.0 PG [facility] MCHC (RBC) [Mass/Vol] 34.5 g/dL [facility] MCV (RBC) [Entitic vol] 91.7 fL [facility] Monocytes (Bld) [#/Vol] 0.2 10*3/uL 0.0 - 0.7 10*3/uL [facility] Monocytes/100 WBC (Bld) 7.1 % 0.0 - 10.0 % [facility] Neutrophils (Bld) [#/Vol] 1.6 10*3/uL 1.4 - 6.5 10*3/uL [facility] Neutrophils/100 WBC (Bld) 49.8 % 37.0 - 75.0 % [facility] Platelet mean volume (Bld) [Entitic vol] 10.5 fL [facility] Platelets (Bld) [#/Vol] 89 10*3/uL Low 130.0 - 400.0 10*3/uL [facility] RBC (Bld) [#/Vol] 3.94 10*6/uL Low 4.0 - 5.4 10*6/uL [facility] WBC (Bld) [#/Vol] 3.2 10*3/uL Low 3.6 - 11.0 10*3/uL [facility] COMPREHENSIVE METABOLIC PANE José 01-29-2022 Albumin [Mass/Vol] 3.5 G/dl 3.5 - 5.0 G/dl [facility] Albumin/Globulin [Mass ratio] 1.5 {ratio} [facility] ALP [Catalytic activity/Vol] 51 U/L [facility] ALT [Catalytic activity/Vol] 40 U/L [facility] AST [Catalytic activity/Vol] 33 U/L [facility] Bilirubin [Mass/Vol] 0.3 mg/dL [facility] Calcium [Mass/Vol] 8.6 mg/dL [facility] Chloride [Moles/Vol] 104 mmol/L [facility] CO2 [Moles/Vol] 27 mmol/L [facility] Creatinine [Mass/Vol] 1.06 mg/dL High [facility] GFR COMMENT Average GFR for 60-6 9 years old = 85. [facility] Comment on above: Chronic Kidney disea se, GFR = <60. Kidney failure, GFR = <15. The GFR estimate is not adjusted for extreme body surface area or acute process, nor has it been validated for women or ethnic groups other than and . GFR/1.73 sq M.predicted among blacks MDRD (S/P/Bld) [Vol rate/Area] 68 mL/min/{1.73_m2} ml/min/1.73sq .m [facility] GFR/1.73 sq M.predicted among non-blacks MDRD (S/P/Bld) [Vol rate/Area] 56 mL/min/{1.73_m2} ml/min/1.73sq .m [facility] Glucose post fast [Mass/Vol] 124 mg/dL High [facility] Comment on above: NORMAL <100 mg/dL PREDIABETES 101-126 mg/dL DIABETES 126 mg/dL or higher Interpretation and review of laboratory results Abnormal [facility] Potassium [Moles/Vol] 3.5 mmol/L [facility] [facility] Protein [Mass/Vol] 5.9 g/dL Low [facility] Sodium [Moles/Vol] 139 mmol/L [facility] Urea nitrogen [Mass/Vol] 20 mg/dL [facility] D-DIMER,QUANTITATIVEon 01-29 Fibrin D-dimer FEU (PPP) [Mass/Vol] 0.36 <0.50 mg/L FEU [facility] Comment on above: If result is greater than the cutoff value of 0.50 mg/L then the potential for PE or DVT exists. Other conditions exist which may cause a falsely elevated level. Please correlate clinically, including radiological findings and other clinical parameters. [facility] FIBRINOGEN, CLOTTABLEon 01-19 Fibrinogen Coag (PPP) [Mass/Vol] 294.0 mg/dL 171 - 562 mg/dL [facility] MAGNESIUMon 01-29-2022 Magnesium [Mass/Vol] 2.0 mg/dL [facility] No Panel Informationon 01-29 [facility] PROTIME-INRon 01-29-2022 INR Coag (PPP) [Relative time] 0.98 {INR} [facility] Comment on above: 2.0-3.0 THERAPEUTIC RANGE 2.5-3.5 MECHANICAL VALVE RANGE PT Coag (PPP) [Time] 13.2 s [facility] SEDIMENTATION RATE, AUTOMATE Don 01-29-2022 ESR (Bld) [Velocity] 6 mm/h [facility] TROPONIN I, HIGH SENSITIVITY on 01-29-2022 TROPONIN I, HIGH SENSITIVITY 4 pg/mL 0 - 12 pg/mL [facility] Comment on above: Indeterminant: >12 to 100 pg/mL female >20 to 100 pg/mL male Indicative of myocardial injury. Serial sampling is recommended, a change of greater than or equal to 20 pg/mL is indicative of acute coronary syndrome. [facility] C REACTIVE PROTEINon 022 CRP [Mass/Vol] 8.7 mg/L 0 - 10.0 MG/L [facility] CBC, EDIF, PLATELETon 2021 ABSOLUTE BASOPHIL COUNT 0.0 10*3/uL 0.0 - 0.2 10*3/uL [facility] Basophils/100 WBC (Bld) 0.6 % 0.0 - 2.0 % [facility] Differential cell count method Nom (Bld) AUTO DIFF % [facility] Eosinophils (Bld) [#/Vol] 0.20 10*3/uL 0.0 - 0.7 10*3/uL [facility] Eosinophils/100 WBC (Bld) 6.1 % 0.0 - 11.0 % [facility] Erythrocyte distribution width (RBC) [Ratio] 13.7 % 11.5 - 14.5 % [facility] Hematocrit (Bld) [Volume fraction] 36.9 % 36.0 - 48.0 % [facility] Hemoglobin (Bld) [Mass/Vol] 12.9 g/dL [facility] Interpretation and review of laboratory results Abnormal [facility] Lymphocytes (Bld) [#/Vol] 1.40 10*3/uL 1.2 - 3.4 10*3/uL [facility] Lymphocytes/100 WBC (Bld) 42.9 % 20.0 - 55.0 % [facility] MCH (RBC) [Entitic mass] 31.7 pg 26.0 - 35.0 PG [facility] MCHC (RBC) [Mass/Vol] 35.0 g/dL [facility] MCV (RBC) [Entitic vol] 90.8 fL [facility] Monocytes (Bld) [#/Vol] 0.3 10*3/uL 0.0 - 0.7 10*3/uL [facility] Monocytes/100 WBC (Bld) 7.8 % 0.0 - 10.0 % [facility] Neutrophils (Bld) [#/Vol] 1.4 10*3/uL 1.4 - 6.5 10*3/uL [facility] Neutrophils/100 WBC (Bld) 42.6 % 37.0 - 75.0 % [facility] Platelet mean volume (Bld) [Entitic vol] 10.6 fL [facility] Platelets (Bld) [#/Vol] 94 10*3/uL Low 130.0 - 400.0 10*3/uL [facility] RBC (Bld) [#/Vol] 4.06 10*6/uL 4.0 - 5.4 10*6/uL [facility] WBC (Bld) [#/Vol] 3.3 10*3/uL Low 3.6 - 11.0 10*3/uL [facility] CHEM 7 (LYTES,BUN,CREA,GLUC) on 01-28-2022 Chloride [Moles/Vol] 102 mmol/L [facility] CO2 [Moles/Vol] 29 mmol/L [facility] Creatinine [Mass/Vol] 0.93 mg/dL [facility] GFR COMMENT Average GFR for 60-6 9 years old = 85. [facility] Comment on above: Chronic Kidney disea se, GFR = <60. Kidney failure, GFR = <15. The GFR estimate is not adjusted for extreme body surface area or acute process, nor has it been validated for women or ethnic groups other than and . GFR/1.73 sq M.predicted among blacks MDRD (S/P/Bld) [Vol rate/Area] 79 mL/min/{1.73_m2} ml/min/1.73sq .m [facility] GFR/1.73 sq M.predicted among non-blacks MDRD (S/P/Bld) [Vol rate/Area] 65 mL/min/{1.73_m2} ml/min/1.73sq .m [facility] Glucose post fast [Mass/Vol] 113 mg/dL High [facility] Comment on above: NORMAL <100 mg/dL PREDIABETES 101-126 mg/dL DIABETES 126 mg/dL or higher Interpretation and review of laboratory results Abnormal [facility] Potassium [Moles/Vol] 2.5 mmol/L Critically low [facility] Comment on above: Result called to guillaume pfeiffer back by: Galen LAWSON 01/28/2022 @ 05:55 by JDW Sodium [Moles/Vol] 140 mmol/L [facility] Urea nitrogen [Mass/Vol] 20 mg/dL [facility] Cardiac echo study Procedure on 01-28-2022 APPROVED REPORT Other Information Study Quality: Technically Difficult. Technically limited study due to body habitus, lung disease, inability to position patient. Conclusion Hyperdynamic LV function greater than 70%. No significant valvular or pericardial abnormality. Borderline RV dilatation with grossly normal function. Insufficient tricuspid signal to determine pulmonary pressures. Technically limited study. Left Ventricle The left ventricle is normal size. Left ventricular systolic function is hyperdynamic. Mild concentric left ventricular hypertrophy. There is normal LV segmental wall motion. Mild diastolic dysfunction is present (impaired relaxation pattern). LVEF is >70%. Right Ventricle Right ventricle is borderline dilated. Right ventricle is mildly hypokinetic. Atria Left atrium is moderately dilated. Right atrium is mildly dilated. Aortic Valve The aortic valve is normal in structure. There is no aortic valvular stenosis. No aortic regurgitation is present. Mitral Valve The mitral valve is normal in structure. There is no mitral valve regurgitation noted. Tricuspid Valve The tricuspid valve is normal in structure. Trace tricuspid regurgitation. Pulmonic Valve The pulmonary valve is normal in structure. Great Vessels The aortic root is normal in size. Pericardium There is no pericardial effusion. EXAM: Comprehensive 2D, Doppler, and color-flow Echocardiogram Echo Enhancing Agent Indication: Endocardial border delineation Agent(s) / Amount(s) Used: Definity 2 cc 2D Dimensions IVSd 1.4 cm F: 0.6-0.9 LVEF (Rosas's) 55.37 % F: 54 - 74 PWd 0.9 cm F: 0.6 - 0.9 EF AP4-a2DQ 73.73 % LVDd 5.3 cm F: 3.8 - 5.2 EF AP2-a2DQ 37.44 % LVDs 3.80 cm F: 2.2 - 3.5 EF BP-a2DQ 55.37 % Aortic Root 2.82 cm F: 2.7 - 3.3 LVSV 43 mL Aortic Root Index 1.2 cm/m2 LV Volume 95.91 mL F: 46 - 106 Ascending Aorta 2.87 cm F: 2.3 - 3.1 LV Volume Index 42.07 mL/m2 F: 29 - 61 Ascending Aorta Index: 1.3 cm/m2 RV Major 4.14 cm Left Atrium 4.17 cm F: 2.7 - 3.8 RV Minor 8.00 cm LVOT 2.07 cm (M/F) 1.5-2.5 RVIDd 2.49 cm (M/F) 2.5-4.1 TAPSE 2.6 >1.7 cm Right Atrium 5.0 cm (M/F) 2.9-4.5 IVC 2.4 cm LV Diastology E/A Ratio 0.8 Septal E' 0.07 (<.07 m/s) LAT E' 0.10 (<.10 m/s) E/LAT E' Ratio 5.76 (>14) E/E AVG 6.90 Septal E/E' 8.58 Aortic Valve LVOT Max 1.18 (0.7-1.1 m/s) LVOT VTI 18.72 cm AoV Peak Quincy. 1.58 (0.5-1.3 m/s) AV Vmean 1.08 m/s AO Peak GR. 10.02 mmHg AO Mean GR. 5.38 (<5 mmHg) AO VTI 29.0 (18-25 cm) GAIL (VTI) 2.18 (2.5-4.5 cm2) Mitral Valve MV E Max Quincy. 0.6 (0.4-1.3 m/s) MV A Velocity 0.78 (0.4-1.3 m/s) E/A Ratio 0.73 MV PHT 56.69 ms MVA PHT 3.88 cm2 MV Dec Larue 252.46 cm/s2 MV Decel. Time 224.51 (160-240 ms) Tricuspid Valve TR P. Velocity 1.89 m/s RAP Estimate 3 mmHg RVSP 17.33 mmHg TR maxPG 14.33 mmHg CARDIOLOGY Phill Nicholas DO - 01/28/2022 APPROVED REPORT Other Information Study Quality: Technically Difficult. Technically limited study due to body habitus, lung disease, inability to position patient. Conclusion Hyperdynamic LV function greater than 70%. No significant valvular or pericardial abnormality. Borderline RV dilatation with grossly normal function. Insufficient tricuspid signal to determine pulmonary pressures. Technically limited study. Left Ventricle The left ventricle is normal size. Left ventricular systolic function is hyperdynamic. Mild concentric left ventricular hypertrophy. There is normal LV segmental wall motion. Mild diastolic dysfunction is present (impaired relaxation pattern). LVEF is >70%. Right Ventricle Right ventricle is borderline dilated. Right ventricle is mildly hypokinetic. Atria Left atrium is moderately dilated. Right atrium is mildly dilated. Aortic Valve The aortic valve is normal in structure. There is no aortic valvular stenosis. No aortic regurgitation is present. Mitral Valve The mitral valve is normal in structure. There is no mitral valve regurgitation noted. Tricuspid Valve The tricuspid valve is normal in structure. Trace tricuspid regurgitation. Pulmonic Valve The pulmonary valve is normal in structure. Great Vessels The aortic root is normal in size. Pericardium There is no pericardial effusion. EXAM: Comprehensive 2D, Doppler, and color-flow Echocardiogram Echo Enhancing Agent Indication: Endocardial border delineation Agent(s) / Amount(s) Used: Definity 2 cc 2D Dimensions IVSd 1.4 cm F: 0.6-0.9LVEF (Rosas's)55.37 % F: 54 - 74 PWd 0.9 cm F: 0.6 - 0.9EF AP4-a2DQ73.73 % LVDd 5.3 cm F: 3.8 - 5.2EF AP2-a2DQ37.44 % LVDs 3.80 cm F: 2.2 - 3.5EF BP-a2DQ55.37 % Aortic Root 2.82 cm F: 2.7 - 3.7NWOO58 mL Aortic Root Index1.2 cm/m2LV Syddfs08.91 mL F: 46 - 106 Ascending Aorta 2.87 cm F: 2.3 - 3.1LV Volume Index42.07 mL/m2 F: 29 - 61 Ascending Aorta Index: 1.3 cm/m2RV Major 4.14 cm Left Atrium 4.17 cm F: 2.7 - 3.8RV Minor8.00 cm LVOT2.07 cm (M/F) 1.5-2.3TQMNq1.49 cm (M/F) 2.5-4.1 TAPSE 2.6 >1.7 cmRight Atrium 5.0 cm (M/F) 2.9-4.5 IVC2.4 cm LV Diastology E/A Ratio 0.8Septal E'0.07 (<.07 m/s) LAT E'0.10 (<.10 m/s)E/LAT E' Ratio5.76 (>14) E/E AVG 6.90Septal E/E'8.58 Aortic Valve LVOT Max1.18 (0.7-1.1 m/s)LVOT VTI18.72 cm AoV Peak Quincy.1.58 (0.5-1.3 m/s)AV Vmean 1.08 m/s AO Peak GR.10.02 mmHgAO Mean GR.5.38 (<5 mmHg) AO VTI29.0 (18-25 cm)GAIL (VTI)2.18 (2.5-4.5 cm2) Mitral Valve MV E Max Quincy.0.6 (0.4-1.3 m/s)MV A Velocity0.78 (0.4-1.3 m/s) E/A Ratio0.73MV PHT56.69 ms MVA PHT3.88 cm2MV Dec Larue 252.46 cm/s2 MV Decel. Aedl844.51 (160-240 ms) Tricuspid Valve TR P. Velocity1.89 m/sRAP Estimate3 mmHg RVSP17.33 mmHgTR maxPG 14.33 mmHg [facility] Radiology Study observation (narrative) [facility] LACTATE, BLOODon 01-28-2022 Lactate [Moles/Vol] 1.7 mmol/L 0.7 - 2. 0 mmol/L [facility] POTASSIUMon 01-28-2022 Interpretation and review of laboratory results Abnormal [facility] Potassium [Moles/Vol] 3.3 mmol/L Low [facility] SEDIMENTATION RATE, AUTOMATE Don 01-28-2022 ESR (Bld) [Velocity] 4 mm/h [facility] CBC, EDIF, PLATELETon 2021 ABSOLUTE BASOPHIL COUNT 0.0 10*3/uL 0.0 - 0.2 10*3/uL [facility] Basophils/100 WBC (Bld) 0.7 % 0.0 - 2.0 % [facility] Differential cell count method Nom (Bld) AUTO DIFF % [facility] Eosinophils (Bld) [#/Vol] 0.20 10*3/uL 0.0 - 0.7 10*3/uL [facility] Eosinophils/100 WBC (Bld) 4.4 % 0.0 - 11.0 % [facility] Erythrocyte distribution width (RBC) [Ratio] 13.5 % 11.5 - 14.5 % [facility] Hematocrit (Bld) [Volume fraction] 44.5 % 36.0 - 48.0 % [facility] Hemoglobin (Bld) [Mass/Vol] 15.6 g/dL [facility] Interpretation and review of laboratory results Abnormal [facility] Lymphocytes (Bld) [#/Vol] 1.80 10*3/uL 1.2 - 3.4 10*3/uL [facility] Lymphocytes/100 WBC (Bld) 34.0 % 20.0 - 55.0 % [facility] MCH (RBC) [Entitic mass] 31.5 pg 26.0 - 35.0 PG [facility] MCHC (RBC) [Mass/Vol] 35.1 g/dL [facility] MCV (RBC) [Entitic vol] 89.7 fL [facility] Monocytes (Bld) [#/Vol] 0.3 10*3/uL 0.0 - 0.7 10*3/uL [facility] Monocytes/100 WBC (Bld) 5.6 % 0.0 - 10.0 % [facility] Neutrophils (Bld) [#/Vol] 3.0 10*3/uL 1.4 - 6.5 10*3/uL [facility] Neutrophils/100 WBC (Bld) 55.3 % 37.0 - 75.0 % [facility] Platelet mean volume (Bld) [Entitic vol] 10.1 fL [facility] Platelets (Bld) [#/Vol] 129 10*3/uL Low 130.0 - 400.0 10*3/uL [facility] RBC (Bld) [#/Vol] 4.96 10*6/uL 4.0 - 5.4 10*6/uL [facility] WBC (Bld) [#/Vol] 5.4 10*3/uL 3.6 - 11.0 10*3/uL [facility] CHEM 7 (LYTES,BUN,CREA,GLUC) on 01-27-2022 Chloride [Moles/Vol] 98 mmol/L [facility] CO2 [Moles/Vol] 25 mmol/L [facility] Creatinine [Mass/Vol] 1.06 mg/dL High [facility] GFR COMMENT Average GFR for 60-6 9 years old = 85. [facility] Comment on above: Chronic Kidney disea se, GFR = <60. Kidney failure, GFR = <15. The GFR estimate is not adjusted for extreme body surface area or acute process, nor has it been validated for women or ethnic groups other than and . GFR/1.73 sq M.predicted among blacks MDRD (S/P/Bld) [Vol rate/Area] 68 mL/min/{1.73_m2} ml/min/1.73sq .m [facility] GFR/1.73 sq M.predicted among non-blacks MDRD (S/P/Bld) [Vol rate/Area] 56 mL/min/{1.73_m2} ml/min/1.73sq .m [facility] Glucose post fast [Mass/Vol] 141 mg/dL High [facility] Comment on above: NORMAL <100 mg/dL PREDIABETES 101-126 mg/dL DIABETES 126 mg/dL or higher Interpretation and review of laboratory results Abnormal [facility] Potassium [Moles/Vol] 2.9 mmol/L Critically low [facility] Comment on above: Result called to guillaume pfeiffer back by: Guanakito BRUNO 01/27/2022 @ 16:51 by GOMEZ Sodium [Moles/Vol] 136 mmol/L [facility] Urea nitrogen [Mass/Vol] 24 mg/dL High [facility] CT Head WO contraston 2021 IMPRESSION: Incidental small left parietal meningioma unchanged. RADIOLOGY EXAMINATION: CT HEAD WITHOUT CONTRAST HISTORY: 61-year-old female high blood pressure, headache. COMPARISON: [place] CT BRAIN 12/28/2021. TECHNIQUE: CT examination of the head without IV contrast. Dose reduction techniques were achieved by using automated exposure control and/or adjustment of mA and/or kV according to patient size and/or use of iterative reconstruction technique. FINDINGS: PERTINENT POSITIVES: None. PERTINENT NEGATIVES: No intracranial hemorrhage or mass. COINCIDENTAL FINDINGS: Likely insignificant small meningioma left parietal region 1 cm diameter unchanged. No mass effect. ROUTINE EXAMINATION: Normal ventricles and sulci for age. Paranasal sinuses are normally aerated. Posterior fossa negative. RADIOLOGY Yenni Arnold, Wilman Garay MD - 01/27/2022 EXAMINATION: CT HEAD WITHOUT CONTRAST HISTORY: 61-year-old female high blood pressure, headache. COMPARISON: [place] CT BRAIN 12/28/2021. TECHNIQUE: CT examination of the head without IV contrast. Dose reduction techniques were achieved by using automated exposure control and/or adjustment of mA and/or kV according to patient size and/or use of iterative reconstruction technique. FINDINGS: PERTINENT POSITIVES: None. PERTINENT NEGATIVES: No intracranial hemorrhage or mass. COINCIDENTAL FINDINGS: Likely insignificant small meningioma left parietal region 1 cm diameter unchanged. No mass effect. ROUTINE EXAMINATION: Normal ventricles and sulci for age. Paranasal sinuses are normally aerated. Posterior fossa negative. IMPRESSION IMPRESSION: Incidental small left parietal meningioma unchanged. [facility] Study observation (narrative) [facility] Head WO contrastOrdered B y: Wilman Hyman on 01-27-2022 [facility] Work Phone: INFLUENZA A AND B, PCRon FLUAV and FLUBV Ag IF Nom (Unsp spec) Negative NEGATIVE [facility] FLUBV Ag IA Ql (Unsp spec) Negative NEGATIVE [facility] Comment on above: TESTING PERFORMED BY KRANTHI [facility] NOVEL CORONAVIRUS LAB 1 - NA SOPHARYNGEALon 01-27-2022 NARRATIVE -1 This test was performed using isothermal KRANTHI and has been approved as Emergency Use Authorization (EUA) for the qualitative detection [id number] nucleic acid. [facility] SARS-CoV-2 (COVID-19) RNA KRANTHI+probe Ql (Unsp spec) Not detected NOT DETECTED [facility] Comment on above: Negative results do not preclude SARS-CoV-2 infection and should not be used as the sole basis for treatment or other patient management decisions. Optimum specimen types and timing for peak viral levels during infections caused by SARS-CoV-2 has not been determined. The possibility of a false negative result should especially be considered if the patient's recent exposures or clinical presentation suggest that SARS-CoV-2 infection is probable, and diagnostic tests for other causes of illness (e.g., other respiratory illness) are negative. Collection of a new specimen and re-testing may be necessary if the patient is critically ill or clinically deteriorating. [facility] No Panel Informationon 01-27 [facility] [employer] Portable XR Chest Views APon 01-27-2022 Impression: No acute cardiopulmonary abnormality. RADIOLOGY XR CHEST AP PORTABLE Indication: cp Comparison: None Technique: Single view. Findings: The lungs are clear, no effusion. No pneumothorax. Heart is normal size. Mediastinal and hilar contours are within normal limits. Bony thorax no acute abnormality. RADIOLOGY Evan Denis MD - 01/27/2022 XR CHEST AP PORTABLE Indication: cp Comparison: None Technique: Single view. Findings: The lungs are clear, no effusion. No pneumothorax. Heart is normal size. Mediastinal and hilar contours are within normal limits. Bony thorax no acute abnormality. IMPRESSION Impression: No acute cardiopulmonary abnormality. [facility] Radiology Study observation (narrative) [facility] Portable XR Chest Views APOr dered By: Evan Denis on 01-27-2022 [facility] Work Phone: TROPONIN I, HIGH SENSITIVITY on 01-27-2022 TROPONIN I, HIGH SENSITIVITY 11 pg/mL 0 - 12 pg/mL [facility] Comment on above: Indeterminant: >12 to 100 pg/mL female >20 to 100 pg/mL male Indicative of myocardial injury. Serial sampling is recommended, a change of greater than or equal to 20 pg/mL is indicative of acute coronary syndrome. [facility] TROPONIN I, HIGH SENSITIVITY 10 pg/mL 0 - 12 pg/mL [facility] Comment on above: Indeterminant: >12 to 100 pg/mL female >20 to 100 pg/mL male Indicative of myocardial injury. Serial sampling is recommended, a change of greater than or equal to 20 pg/mL is indicative of acute coronary syndrome. [facility] TSHon 01-27-2022 TSH Qn 1.649 m[IU]/L [facility] URINALYSIS, MACROon 01-28-20 22 Bilirubin Ql (U) Negative NEGATIVE [facility] Clarity (U) CLEAR CLEAR [facility] Color (U) YELLOW YELLOW [facility] Glucose Test strip (U) [Mass/Vol] Negative NEGATIVE mg/dl [facility] Hemoglobin Ql (U) Negative NEGATIVE [facility] Interpretation and review of laboratory results Abnormal [facility] Ketones (U) [Mass/Vol] TRACE Abnormal NEGATIVE mg/dl [facility] Leukocyte esterase Test strip Ql (U) SMALL Abnormal NEGATIVE [facility] Nitrite Ql (U) Negative NEGATIVE [facility] pH (U) 5.5 [pH] [facility] Protein Ql (U) Negative NEGATIVE mg/dl [facility] Specific gravity (U) [Rel density] 1.025 [facility] Urobilinogen (U) [Mass/Vol] 0.2 mg/dL [facility] URINE MICROSCOPICon 01-28-20 22 Bacteria LM.HPF (Urine sed) [#/Area] Negative NEGATIVE [facility] Casts LM.LPF (Urine sed) [#/Area] NONE NONE /LPF [facility] Crystals LM Nom (Urine sed) NONE NONE [facility] Epithelial cells LM Ql (Urine sed) NONE /HPF [facility] Mucus Ql (Urine sed) Negative NEGATIVE [facility] RBC LM.HPF (Urine sed) [#/Area] Negative NEGATIVE /HPF [facility] Urine sediment comments LM Mg (Urine sed) CULTURE CRITERIA NOT MET, NO CULTURE PERFORMED. [facility] WBC LM.HPF (Urine sed) [#/Area] Negative NEGATIVE /HPF [facility] XR Shoulder Right 2+ Views ( Standard)Ordered By: Leticia Sylvester on 03-28-2021 No acute osseous abnormality. Moderate glenohumeral joint osteoarthritis. Mild acromioclavicular joint osteoarthritis. Grossly no soft tissue abnormality. Recommend ultrasound or cross-sectional imaging if persistent concern for underlying soft tissue mass. [employer] Workstation ID: [id number] [facility] EXAMINATION: XR SHOULDER RIGHT 2+ VIEWS (STANDARD) HISTORY: ORDERING SYSTEM PROVIDED HISTORY: Localized swelling, mass, or lump of upper extremity, right, TECHNOLOGIST PROVIDED HISTORY: Illness/Other Reason for exam: Localized swelling, mass, or lump of upper extremity, right Cancer History: u Surgery, RadiationHistory: u Encounter Type: Initial Additional signs and symptoms: limited rom Localized swelling, mass, or lump of upper extremity, right ORDERING SYSTEM PROVIDED DIAGNOSIS CODES: R22.31 Localized swelling, mass, or lump of upper extremity, right M79.89 Swelling of limb COMPARISON: 11/01/2019. FINDINGS: Three views of the right shoulder. No acute fracture. Suggestion of subacromial spur. Glenohumeral and acromioclavicular joints are anatomically aligned. Mild hypertrophic spurring of the acromioclavicular joint. Moderate hypertrophic spurring at the lower margin of the glenoid and humeral head. Partial visualization of ACDF hardware. Soft tissues appear unremarkable. [facility] Interface, Rad In Erikai Speechq - 03/28/2021 11:38 PM EDT EXAMINATION: XR SHOULDER RIGHT 2+ VIEWS (STANDARD) HISTORY: ORDERING SYSTEM PROVIDED HISTORY: Localized swelling, mass, or lump of upper extremity, right, TECHNOLOGIST PROVIDED HISTORY: Illness/Other Reason for exam: Localized swelling, mass, or lump of upper extremity, right Cancer History: u Surgery, RadiationHistory: u Encounter Type: Initial Additional signs and symptoms: limited rom Localized swelling, mass, or lump of upper extremity, right ORDERING SYSTEM PROVIDED DIAGNOSIS CODES: R22.31 Localized swelling, mass, or lump of upper extremity, right M79.89 Swelling of limb COMPARISON: 11/01/2019. FINDINGS: Three views of the right shoulder. No acute fracture. Suggestion of subacromial spur. Glenohumeral and acromioclavicular joints are anatomically aligned. Mild hypertrophic spurring of the acromioclavicular joint. Moderate hypertrophic spurring at the lower margin of the glenoid and humeral head. Partial visualization of ACDF hardware. Soft tissues appear unremarkable. IMPRESSION: No acute osseous abnormality. Moderate glenohumeral joint osteoarthritis. Mild acromioclavicular joint osteoarthritis. Grossly no soft tissue abnormality. Recommend ultrasound or cross-sectional imaging if persistent concern for underlying soft tissue mass. [employer] Workstation ID: [id number] [facility] CHEM 7 (LYTES,BUN,CREA,GLUC) on 01-16-2021 Anion gap [Moles/Vol] 15 mmol/L Normal 7-17 [facility] Comment on above: Performed By: #### C HM7, HFP, HDLT #### [facility] (DEFAULT) [address] [address] Chloride [Moles/Vol] 99 mmol/L Normal 98-108 [facility] Comment on above: Performed By: #### C HM7, HFP, HDLT #### [facility] (DEFAULT) [address] [address] CO2 [Moles/Vol] 31 mmol/L High 22-30 [facility] Comment on above: Performed By: #### C HM7, HFP, HDLT #### [facility] (DEFAULT) [address] [address] Creatinine [Mass/Vol] 0.93 mg/dL Normal 0.50-1.20 [facility] Comment on above: Performed By: #### C HM7, HFP, HDLT #### [facility] (DEFAULT) [address] [place] [address] EST GFR, >=60 Normal >=60 [facility] Comment on above: Performed By: #### C HM7, HFP, HDLT #### [facility] (DEFAULT) [address] [place] [address] EST GFR,Non >=60 Normal >=60 [facility] Comment on above: Performed By: #### C HM7, HFP, HDLT #### [facility] (DEFAULT) [address] [place] [address] Glucose [Mass/Vol] 96 mg/dL Normal 70-99 [facility] Comment on above: Performed By: #### C HM7, HFP, HDLT #### [facility] (DEFAULT) [address] [place] [address] Osmolality [Osmolality] 296 mosm/kg Normal 278-305 [facility] Comment on above: Performed By: #### C HM7, HFP, HDLT #### [facility] (DEFAULT) [address] [place] [address] Potassium [Moles/Vol] 3.0 mmol/L Low 3.5-5.0 [facility] Comment on above: Performed By: #### C HM7, HFP, HDLT #### [facility] (DEFAULT) [address] [place] [address] Sodium [Moles/Vol] 142 mmol/L Normal 133-143 [facility] Comment on above: Performed By: #### C HM7, HFP, HDLT #### [facility] (DEFAULT) [address] [place] [address] Urea nitrogen [Mass/Vol] 18 mg/dL Normal 7-22 [facility] Comment on above: Performed By: #### C HM7, HFP, HDLT #### [facility] (DEFAULT) [address] [place] [address] Urea nitrogen/Creatinine [Mass ratio] 19 mg/mg Normal [facility] Comment on above: Performed By: #### C HM7, HFP, HDLT #### [facility] (DEFAULT) [address] [place] [address] HEPATIC FUNCTION PANELon Albumin [Mass/Vol] 4.4 g/dL Normal 3.5-5.0 [facility] Comment on above: Performed By: #### C HM7, HFP, HDLT #### [facility] (DEFAULT) [address] [place] [address] ALP [Catalytic activity/Vol] 75 U/L Normal 32-126 [facility] Comment on above: Performed By: #### C HM7, HFP, HDLT #### [facility] (DEFAULT) [address] [place] [address] ALT [Catalytic activity/Vol] 45 U/L Normal 9-48 [facility] Comment on above: Performed By: #### C HM7, HFP, HDLT #### [facility] (DEFAULT) [address] [place] [address] AST [Catalytic activity/Vol] 33 U/L Normal 14-40 [facility] Comment on above: Performed By: #### C HM7, HFP, HDLT #### [facility] (DEFAULT) [address] [place] [address] Bilirubin [Mass/Vol] 0.8 mg/dL Normal <1.5 [facility] Comment on above: Performed By: #### C HM7, HFP, HDLT #### [facility] (DEFAULT) [address] [place] [address] Bilirubin.indirect [Mass/Vol] 0.1 mg/dL Normal <0.3 [facility] Comment on above: Performed By: #### C HM7, HFP, HDLT #### [facility] (DEFAULT) [address] [place] [address] Protein [Mass/Vol] 6.8 g/dL Normal 6.4-8.3 [facility] Comment on above: Performed By: #### C HM7, HFP, HDLT #### [facility] (DEFAULT) [address] [place] [address] LIPID PANEL W CALCULATED LDL on 01-16-2021 Calculated LDL Cholesterol 125 mg/dL High 0-99 [facility] Comment on above: Result Comment: [<10 0 mg/dL: Optimal] [100-129 mg/dL: Near Optimal] [130-159 mg/dL: Borderline High] [160-189 mg/dL: High] [>189 mg/dL: Very High] Performed By: #### C HM7, HFP, HDLT #### [facility] (DEFAULT) [address] [place] [address] Cholesterol [Mass/Vol] 230 mg/dL High <200 [facility] Comment on above: Result Comment: [<20 0 mg/dL: Desirable] [200-239 mg/dL: Borderline High] [>239 mg/dL: High] Performed By: #### C HM7, HFP, HDLT #### [facility] (DEFAULT) [address] [place] [address] Cholesterol in HDL [Mass/Vol] 43 mg/dL Normal >=40 [facility] Comment on above: Result Comment: [<40 mg/dL: Low (High Risk)] [>59 mg/dL: High (Low Risk)] Performed By: #### C HM7, HFP, HDLT #### [facility] (DEFAULT) [address] [place] [address] Non HDL Cholesterol 187 mg/dL High <130 [facility] Comment on above: Performed By: #### C HM7, HFP, HDLT #### [facility] (DEFAULT) [address] [place] [address] Total Cholesterol/HDL Ratio 5.3 High <4.5 [facility] Comment on above: Performed By: #### C HM7, HFP, HDLT #### [facility] (DEFAULT) [address] [place] [address] Triglyceride [Mass/Vol] 308 mg/dL High <150 [facility] Comment on above: Result Comment: [<15 0 mg/dL: Desirable] [150-199 mg/dL: Borderline] [200-499 mg/dL: High] [>500 mg/dL: Very High] Performed By: #### C HM7, HFP, HDLT #### [facility] (DEFAULT) [address] [place] [address] PTH INTACTon 01-16-2021 Intact PTH 79.3 pg/mL High 14.0-72.0 [facility] Comment on above: Performed By: #### I PTH #### [facility] (DEFAULT) [address] [place] [address] TSHon 01-16-2021 TSH 3.684 uIU/mL Normal 0.550-4.780 [facility] Comment on above: Performed By: #### T SH #### [facility] (DEFAULT) [address] [address] VITAMIN D (25-HYDROXY,TOTAL) on 01-16-2021 25-OH Vitamin D Total 18.3 ng/mL Low 30.0-100.0 [facility] Comment on above: Order Comment: Vitam in D values have been shown to be falsely decreased in lipemic samples and should be interpreted with caution. Result Comment: <10 Deficiency 10-29 Insufficiency 30-100 Optimal Level >100 Possible Toxicity Performed By: #### D 25OH #### [facility] (DEFAULT) [address] [place] [address] Basic Metabolic Panelon 11-19 Anion gap [Moles/Vol] 8 mmol/L Low 10 - 2 0 mmol/L [facility] Calcium [Mass/Vol] 7.8 mg/dL Low 8.4 - 10. 2 mg/dL [facility] Chloride [Moles/Vol] 112 mmol/L High 98 - 10 8 mmol/L [facility] Creatinine [Mass/Vol] 0.98 mg/dL 0.40 - 1.10 [facility] GFR/1.73 sq M predicted among non-blacks MDRD (S/P/Bld) [Vol rate/Area] The eGFR should be used for monitoring renal function only and not for medication dosing. [facility] GFR/1.73 sq M.predicted CKD-EPI (S/P/Bld) [Vol rate/Area] 63 >=60 mL/min/1.73 m2 [facility] Glucose [Mass/Vol] 94 mg/dL 65 - 99 mg/dL [facility] HCO3 [Moles/Vol] 28 mmol/L 21 - 32 mmol/L [facility] Interpretation and review of laboratory results Abnormal [facility] Potassium [Moles/Vol] 3.8 mmol/L 3.5 - 5.1 mmol/L [facility] Sodium [Moles/Vol] 144 mmol/L 135 - 145 mmol/L [facility] Urea nitrogen [Mass/Vol] 14 mg/dL 8 - 25 mg/dL [facility] Urea nitrogen/Creatinine [Mass ratio] 14.3 mg/mg [facility] CBC WITH AUTO DIFFERENTIALon 12-01-2020 Basophils (Bld) [#/Vol] 0.01 10*3/uL [facility] Basophils/100 WBC (Bld) 0.3 % [facility] Eosinophils (Bld) [#/Vol] 0.18 10*3/uL [facility] Eosinophils/100 WBC (Bld) 5.1 % [facility] Erythrocyte distribution width (RBC) [Entitic vol] 14.6 % 11.6 - 14.8 % [facility] Hematocrit (Bld) [Volume fraction] 35.4 % Low 36.0 - 46.0 % [facility] Hemoglobin (Bld) [Mass/Vol] 11.8 g/dL Low 12.0 - 16.0 g/dL [facility] Immature granulocytes (Bld) [#/Vol] 0.01 10*3/uL [facility] Immature granulocytes/100 WBC (Bld) 0.30 % [facility] Comment on above: The IG parameter is the percentage of metamyelocytes, myelocytes and promyelocytes. An immature granulocyte count (IG) of 1% or more suggests the possibility of infection, an IG count of 3% is very likely related to an infection. Interpretation and review of laboratory results Abnormal [facility] Lymphocytes (Bld) [#/Vol] 1.33 10*3/uL [facility] Lymphocytes/100 WBC (Bld) 38.0 % [facility] MCH (RBC) [Entitic mass] 31.1 pg 26.0 - 34.0 pg [facility] MCHC (RBC) [Mass/Vol] 33.3 g/dL 31.0 - 37.0 g/dL [facility] MCV (RBC) [Entitic vol] 93.2 fL 80.0 - 100.0 fL [facility] Monocytes (Bld) [#/Vol] 0.20 10*3/uL Low [facility] Monocytes/100 WBC (Bld) 5.7 % [facility] Neutrophils (Bld) [#/Vol] 1.77 10*3/uL [facility] Neutrophils/100 WBC (Bld) 50.6 % [facility] Nucleated RBC (Bld) [#/Vol] 0.00 10*3/uL [facility] Nucleated RBC/100 WBC (Bld) [Ratio] 0.0 % [facility] Platelet mean volume (Bld) [Entitic vol] 11.6 fL 9.4 - 12.4 fL [facility] Platelets (Bld) [#/Vol] 96 10*3/uL Low [facility] RBC (Bld) [#/Vol] 3.80 10*6/uL Low [facility] WBC (Bld) [#/Vol] 3.50 10*3/uL Low [facility] Basic Metabolic Panelon 11-19 Anion gap [Moles/Vol] 9 mmol/L Low 10 - 2 0 mmol/L [facility] Calcium [Mass/Vol] 7.4 mg/dL Low 8.4 - 10. 2 mg/dL [facility] Chloride [Moles/Vol] 111 mmol/L High 98 - 10 8 mmol/L [facility] Creatinine [Mass/Vol] 1.00 mg/dL 0.40 - 1.10 [facility] GFR/1.73 sq M predicted among non-blacks MDRD (S/P/Bld) [Vol rate/Area] The eGFR should be used for monitoring renal function only and not for medication dosing. [facility] GFR/1.73 sq M.predicted CKD-EPI (S/P/Bld) [Vol rate/Area] 62 >=60 mL/min/1.73 m2 [facility] Glucose [Mass/Vol] 95 mg/dL 65 - 99 mg/dL [facility] HCO3 [Moles/Vol] 26 mmol/L 21 - 32 mmol/L [facility] Interpretation and review of laboratory results Abnormal [facility] Potassium [Moles/Vol] 3.7 mmol/L 3.5 - 5.1 mmol/L [facility] Sodium [Moles/Vol] 142 mmol/L 135 - 145 mmol/L [facility] Urea nitrogen [Mass/Vol] 15 mg/dL 8 - 25 mg/dL [facility] Urea nitrogen/Creatinine [Mass ratio] 15.0 mg/mg [facility] CBC WITH AUTO DIFFERENTIALon 11-30-2020 Basophils (Bld) [#/Vol] 0.02 10*3/uL [facility] Basophils/100 WBC (Bld) 0.6 % [facility] Eosinophils (Bld) [#/Vol] 0.18 10*3/uL [facility] Eosinophils/100 WBC (Bld) 5.0 % [facility] Erythrocyte distribution width (RBC) [Entitic vol] 14.6 % 11.6 - 14.8 % [facility] Hematocrit (Bld) [Volume fraction] 36.5 % 36.0 - 46.0 % [facility] Hemoglobin (Bld) [Mass/Vol] 12.1 g/dL 12.0 - 16.0 g/dL [facility] Immature granulocytes (Bld) [#/Vol] 0.02 10*3/uL [facility] Immature granulocytes/100 WBC (Bld) 0.60 % [facility] Comment on above: The IG parameter is the percentage of metamyelocytes, myelocytes and promyelocytes. An immature granulocyte count (IG) of 1% or more suggests the possibility of infection, an IG count of 3% is very likely related to an infection. Interpretation and review of laboratory results Abnormal [facility] Lymphocytes (Bld) [#/Vol] 1.37 10*3/uL [facility] Lymphocytes/100 WBC (Bld) 38.3 % [facility] MCH (RBC) [Entitic mass] 30.9 pg 26.0 - 34.0 pg [facility] MCHC (RBC) [Mass/Vol] 33.2 g/dL 31.0 - 37.0 g/dL [facility] MCV (RBC) [Entitic vol] 93.1 fL 80.0 - 100.0 fL [facility] Monocytes (Bld) [#/Vol] 0.23 10*3/uL Low [facility] Monocytes/100 WBC (Bld) 6.4 % [facility] Neutrophils (Bld) [#/Vol] 1.76 10*3/uL [facility] Neutrophils/100 WBC (Bld) 49.1 % [facility] Nucleated RBC (Bld) [#/Vol] 0.00 10*3/uL [facility] Nucleated RBC/100 WBC (Bld) [Ratio] 0.0 % [facility] Platelet mean volume (Bld) [Entitic vol] 11.6 fL 9.4 - 12.4 fL [facility] Platelets (Bld) [#/Vol] 102 10*3/uL Low [facility] RBC (Bld) [#/Vol] 3.92 10*6/uL Low [facility] WBC (Bld) [#/Vol] 3.58 10*3/uL Low [facility] Basic Metabolic Panelon 11-19 Anion gap [Moles/Vol] 8 mmol/L Low 10 - 2 0 mmol/L [facility] Calcium [Mass/Vol] 7.5 mg/dL Low 8.4 - 10. 2 mg/dL [facility] Chloride [Moles/Vol] 106 mmol/L 98 - 10 8 mmol/L [facility] Creatinine [Mass/Vol] 1.02 mg/dL 0.40 - 1.10 [facility] GFR/1.73 sq M predicted among non-blacks MDRD (S/P/Bld) [Vol rate/Area] The eGFR should be used for monitoring renal function only and not for medication dosing. [facility] GFR/1.73 sq M.predicted CKD-EPI (S/P/Bld) [Vol rate/Area] 60 >=60 mL/min/1.73 m2 [facility] Glucose [Mass/Vol] 100 mg/dL High 65 - 99 mg/dL [facility] HCO3 [Moles/Vol] 30 mmol/L 21 - 32 mmol/L [facility] Interpretation and review of laboratory results Abnormal [facility] Potassium [Moles/Vol] 3.0 mmol/L Low 3.5 - 5.1 mmol/L [facility] Sodium [Moles/Vol] 141 mmol/L 135 - 145 mmol/L [facility] Urea nitrogen [Mass/Vol] 16 mg/dL 8 - 25 mg/dL [facility] Urea nitrogen/Creatinine [Mass ratio] 15.7 mg/mg [facility] CBC WITH AUTO DIFFERENTIALon 11-29-2020 Basophils (Bld) [#/Vol] 0.03 10*3/uL [facility] Basophils/100 WBC (Bld) 0.5 % [facility] Eosinophils (Bld) [#/Vol] 0.26 10*3/uL [facility] Eosinophils/100 WBC (Bld) 4.8 % [facility] Erythrocyte distribution width (RBC) [Entitic vol] 14.3 % 11.6 - 14.8 % [facility] Hematocrit (Bld) [Volume fraction] 38.0 % 36.0 - 46.0 % [facility] Hemoglobin (Bld) [Mass/Vol] 12.5 g/dL 12.0 - 16.0 g/dL [facility] Immature granulocytes (Bld) [#/Vol] 0.01 10*3/uL [facility] Immature granulocytes/100 WBC (Bld) 0.20 % [facility] Comment on above: The IG parameter is the percentage of metamyelocytes, myelocytes and promyelocytes. An immature granulocyte count (IG) of 1% or more suggests the possibility of infection, an IG count of 3% is very likely related to an infection. Interpretation and review of laboratory results Abnormal [facility] Lymphocytes (Bld) [#/Vol] 1.93 10*3/uL [facility] Lymphocytes/100 WBC (Bld) 35.3 % [facility] MCH (RBC) [Entitic mass] 30.9 pg 26.0 - 34.0 pg [facility] MCHC (RBC) [Mass/Vol] 32.9 g/dL 31.0 - 37.0 g/dL [facility] MCV (RBC) [Entitic vol] 94.1 fL 80.0 - 100.0 fL [facility] Monocytes (Bld) [#/Vol] 0.36 10*3/uL [facility] Monocytes/100 WBC (Bld) 6.6 % [facility] Neutrophils (Bld) [#/Vol] 2.87 10*3/uL [facility] Neutrophils/100 WBC (Bld) 52.6 % [facility] Nucleated RBC (Bld) [#/Vol] 0.00 10*3/uL [facility] Nucleated RBC/100 WBC (Bld) [Ratio] 0.0 % [facility] Platelet mean volume (Bld) [Entitic vol] 12.0 fL 9.4 - 12.4 fL [facility] Platelets (Bld) [#/Vol] 126 10*3/uL Low [facility] RBC (Bld) [#/Vol] 4.04 10*6/uL [facility] WBC (Bld) [#/Vol] 5.46 10*3/uL [facility] Potassium Levelon 11-29-2020 Interpretation and review of laboratory results Normal [facility] Potassium [Moles/Vol] 4.0 mmol/L 3.5 - 5.1 mmol/L [facility] Ultrasound duplex venous leg righton 11-29-2020 Interface, Rad In [facility] Echopacs - 11/29/2020 3:52 PM EST Patient Info Name: MICHELINE FOX Age: 60 years : 1960 Gender: Female Exam Date: 11/29/2020 2:49 PM Patient Status: Inpatient Papier Mache Molder: Jo Ann Mari RVT Referring Physician: ERMELINDA Kennedy; Indications M79.661 - Pain in right lower leg Procedure Description 23311 Duplex examination using B-mode, color and spectral Doppler of extremity veins including responses to compression and other maneuvers; unilateral or limited study. Conclusions * No evidence of deep or superficial vein thrombosis in the right lower extremity. Risk Factors Patient has a history of hypertension, obesity and tobacco use-previous. Right calf pain, s/p surgery right foot x 2 weeks. . Report Signatures Finalized by Garret Rios MD on 11/29/2020 03:51 PM [facility] Patient Info Name: MICHELINE FOX Age: 60 years : 1960 Gender: Female Exam Date: 11/29/2020 2:49 PM Patient Status: Inpatient Papier Mache Molder: Jo Ann Mari RVT Referring Physician: ERMELINDA Kennedy; Indications M79.661 - Pain in right lower leg Procedure Description 41230 Duplex examination using B-mode, color and spectral Doppler of extremity veins including responses to compression and other maneuvers; unilateral or limited study. Conclusions * No evidence of deep or superficial vein thrombosis in the right lower extremity. Risk Factors Patient has a history of hypertension, obesity and tobacco use-previous. Right calf pain, s/p surgery right foot x 2 weeks. . Report Signatures Finalized by Garret Rios MD on 11/29/2020 03:51 PM [facility] BMPon 11-28-2020 Anion gap [Moles/Vol] 11 mmol/L 10 - 2 0 mmol/L [facility] Calcium [Mass/Vol] 8.0 mg/dL Low 8.4 - 10. 2 mg/dL [facility] Chloride [Moles/Vol] 107 mmol/L 98 - 10 8 mmol/L [facility] Creatinine [Mass/Vol] 0.97 mg/dL 0.40 - 1.10 [facility] GFR/1.73 sq M predicted among non-blacks MDRD (S/P/Bld) [Vol rate/Area] The eGFR should be used for monitoring renal function only and not for medication dosing. [facility] GFR/1.73 sq M.predicted CKD-EPI (S/P/Bld) [Vol rate/Area] 64 >=60 mL/min/1.73 m2 [facility] Glucose [Mass/Vol] 100 mg/dL High 65 - 99 mg/dL [facility] HCO3 [Moles/Vol] 28 mmol/L 21 - 32 mmol/L [facility] Interpretation and review of laboratory results Abnormal [facility] Potassium [Moles/Vol] 3.7 mmol/L 3.5 - 5.1 mmol/L [facility] Comment on above: moderate hemolysis, result may be falsely increased. Sodium [Moles/Vol] 142 mmol/L 135 - 145 mmol/L [facility] Urea nitrogen [Mass/Vol] 16 mg/dL 8 - 25 mg/dL [facility] Urea nitrogen/Creatinine [Mass ratio] 16.5 mg/mg [facility] CBC WITH AUTO DIFFERENTIALon 11-28-2020 Basophils (Bld) [#/Vol] 0.04 10*3/uL [facility] Basophils/100 WBC (Bld) 0.7 % [facility] Eosinophils (Bld) [#/Vol] 0.23 10*3/uL [facility] Eosinophils/100 WBC (Bld) 4.1 % [facility] Erythrocyte distribution width (RBC) [Entitic vol] 14.4 % 11.6 - 14.8 % [facility] Hematocrit (Bld) [Volume fraction] 40.7 % 36.0 - 46.0 % [facility] Hemoglobin (Bld) [Mass/Vol] 13.9 g/dL 12.0 - 16.0 g/dL [facility] Immature granulocytes (Bld) [#/Vol] 0.02 10*3/uL [facility] Immature granulocytes/100 WBC (Bld) 0.40 % [facility] Comment on above: The IG parameter is the percentage of metamyelocytes, myelocytes and promyelocytes. An immature granulocyte count (IG) of 1% or more suggests the possibility of infection, an IG count of 3% is very likely related to an infection. Interpretation and review of laboratory results Abnormal [facility] Lymphocytes (Bld) [#/Vol] 1.71 10*3/uL [facility] Lymphocytes/100 WBC (Bld) 30.8 % [facility] MCH (RBC) [Entitic mass] 30.8 pg 26.0 - 34.0 pg [facility] MCHC (RBC) [Mass/Vol] 34.2 g/dL 31.0 - 37.0 g/dL [facility] MCV (RBC) [Entitic vol] 90.0 fL 80.0 - 100.0 fL [facility] Monocytes (Bld) [#/Vol] 0.31 10*3/uL [facility] Monocytes/100 WBC (Bld) 5.6 % [facility] Neutrophils (Bld) [#/Vol] 3.24 10*3/uL [facility] Neutrophils/100 WBC (Bld) 58.4 % [facility] Nucleated RBC (Bld) [#/Vol] 0.00 10*3/uL [facility] Nucleated RBC/100 WBC (Bld) [Ratio] 0.0 % [facility] Platelet mean volume (Bld) [Entitic vol] 11.6 fL 9.4 - 12.4 fL [facility] Platelets (Bld) [#/Vol] 125 10*3/uL Low [facility] RBC (Bld) [#/Vol] 4.52 10*6/uL [facility] WBC (Bld) [#/Vol] 5.55 10*3/uL [facility] COVID-19/Influenza A,B Molec ularon 11-28-2020 Influenza A Not Detected Not Detected [facility] Not Detected Not Detected [facility] Interpretation and review of laboratory results Normal [facility] SARS-CoV-2 Not Detected Not Detected [facility] This test was performed under the FDA's Emergency Use Authorization (EUA). Testing was performed using the [employer] SARS-CoV-2 RT-PCR & Influenza A/B Nucleic Acid Test on the [employer] [facility]. This test has not been approved for use in asymptomatic patients and its performance in this patient population has not been evaluated. Negative results do not rule out the presence of SARS-CoV-2, influenza A, and/or influenza B. Fact sheets for the EUA can be found at the following links: For Healthcare Providers: https://www.[facility].gov/m edia/240723/download For Patients: https://www.[facility].gov/m edia/601968/download [facility] Lactic Acid, Plasmaon 2020 Interpretation and review of laboratory results Normal [facility] Lactate [Moles/Vol] 1.6 mmol/L 0.6 - 2. 0 mmol/L [facility] XR FOOT RIGHT 3+ VIEWS (GREGORIA DARD)on 11-28-2020 EXAMINATION: XR FOOT RIGHT 3+ VIEWS (STANDARD) 11/28/2020 5:03 pm HISTORY: ORDERING SYSTEM PROVIDED HISTORY: post op pain, TECHNOLOGIST PROVIDED HISTORY: Illness/Other Reason for exam: post op pain of right foot Cancer History: u Surgery, RadiationHistory: u Encounter Type: Initial Additional signs and symptoms: Hx of needle in foot x 40 years pt is aware of artifact ORDERING SYSTEM PROVIDED DIAGNOSIS CODES: G89.18 Acute post-operative pain R52 Intractable pain COMPARISON: None. FINDINGS: 3 films were done of the right foot. Bone density is normal. No fracture or dislocation or bony lesion is noted. There is a slight to mild dorsal calcaneal spur. Limited views of the ankle are unremarkable. There appears to be some mild generalized soft tissue swelling of the proximal foot. There is metallic linear density which may be consistent with needle measuring 1.5 cm in length the mid aspect of the foot. It is located along the deep plantar aspect inferiorly positioned to the proximal 1st and 2nd metacarpal. [facility] 1. Mild soft tissue swelling of the proximal aspect of the right foot. No fracture dislocation or bony lesion is noted. 2. Medial artifact of the midfoot as noted above. Workstation ID: [id number] [facility] Interface, Rad In Fuji Speechq - 11/28/2020 5:53 PM EST EXAMINATION: XR FOOT RIGHT 3+ VIEWS (STANDARD) 11/28/2020 5:03 pm HISTORY: ORDERING SYSTEM PROVIDED HISTORY: post op pain, TECHNOLOGIST PROVIDED HISTORY: Illness/Other Reason for exam: post op pain of right foot Cancer History: u Surgery, RadiationHistory: u Encounter Type: Initial Additional signs and symptoms: Hx of needle in foot x 40 years pt is aware of artifact ORDERING SYSTEM PROVIDED DIAGNOSIS CODES: G89.18 Acute post-operative pain R52 Intractable pain COMPARISON: None. FINDINGS: 3 films were done of the right foot. Bone density is normal. No fracture or dislocation or bony lesion is noted. There is a slight to mild dorsal calcaneal spur. Limited views of the ankle are unremarkable. There appears to be some mild generalized soft tissue swelling of the proximal foot. There is metallic linear density which may be consistent with needle measuring 1.5 cm in length the mid aspect of the foot. It is located along the deep plantar aspect inferiorly positioned to the proximal 1st and 2nd metacarpal. IMPRESSION: 1. Mild soft tissue swelling of the proximal aspect of the right foot. No fracture dislocation or bony lesion is noted. 2. Medial artifact of the midfoot as noted above. Workstation ID: [id number] [facility] Ultrasound duplex venous leg s bilaton 11-19-2020 Patient Info Name: MICHELINE FOX Age: 60 years : 1960 Gender: Female Exam Date: 11/19/2020 3:13 PM Patient Status: Outpatient Papier Mache Molder: Sofia Chappell RDMS, RVT Referring Physician: DIGNA ENRIQUEZ ; Indications M79.605 - Pain in left leg M79.604 - Pain in right leg - Bilateral pain of leg and foot Procedure Description 51669 Duplex examination using B-mode, color and spectral Doppler of extremity veins including responses to compression and other maneuvers; complete bilateral study. Conclusions * No evidence of deep or superficial vein thrombosis in either lower extremity. Risk Factors Patient has a history of hypertension and tobacco use-previous. . Report Signatures Finalized by Garret Rios MD on 11/19/2020 04:25 PM [facility] Interface, Rad In Heartlab Xper Echopacs - 11/19/2020 4:25 PM EST Patient Info Name: MICHELINE FOX Age: 60 years : 1960 Gender: Female Exam Date: 11/19/2020 3:13 PM Patient Status: Outpatient Papier Mache Molder: Sofia Chappell RDMS, JOHN Referring Physician: DIGNA ENRIQUEZ ; Indications M79.605 - Pain in left leg M79.604 - Pain in right leg - Bilateral pain of leg and foot Procedure Description 66792 Duplex examination using B-mode, color and spectral Doppler of extremity veins including responses to compression and other maneuvers; complete bilateral study. Conclusions * No evidence of deep or superficial vein thrombosis in either lower extremity. Risk Factors Patient has a history of hypertension and tobacco use-previous. . Report Signatures Finalized by Garret Rios MD on 11/19/2020 04:25 PM [facility] XR OR Fluoroscopy Timeon This is an auto finalized result. Please refer to patient chart for further information. [facility] SURG PATH REQUESTon 11-13-19 Case Report [facility] Comment on above: Result Comment: Surg ical Pathology Report Case: [id number] Authorizing Provider: Isael Hall MD Collected: 11/13/2020 09:05 AM Ordering Location: [facility] Endoscopy Received: 11/13/2020 09:52 AM Pathologist: Verito Caal MD Specimen: STOMACH, antrum r/o hp Performed By: #### S URGP #### [facility] (DEFAULT) [address] [place] [address] Clinical History Preop Diagnosis: Lef t upper quadrant abdominal pain. S/p bariatric surgery. R/o HP. Medical History: Chronic hepatitis C without mention of hepatic coma. Anxiety. Obesity. Adverse drug reaction. Shingles. Depression. Hypertension. Kidney infection. Hernia of abdominal cavity. Normal [facility] Comment on above: Performed By: #### S URGP #### [facility] (DEFAULT) [address] [place] [address] Diagnosis Comments Deeper histologic sections were used in the interpretation of this case, and show no additional histopathologic. findings. [facility] Comment on above: Performed By: #### S URGP #### [facility] (DEFAULT) [address] [id number] Gross Description Normal [facility] Comment on above: Result Comment: The specimen is received in one properly labeled container with the patient's name and accession number. A. The specimen is designated antrum r/o HP and consists of two fragments of mcdonald-pink soft tissue, up to 0.3 cm in greatest dimension. TE 1 Lab Use Only: JobID [id number] Grosser for this case was: Slime Rod Performed By: #### S URGP #### [facility] (DEFAULT) [address] [place] [address] Images Normal [facility] Comment on above: Performed By: #### S URGP #### [facility] (DEFAULT) [address] [place] [address] Microscopic Description A microscopic examination was performed. Normal [facility] Comment on above: Performed By: #### S URGP #### [facility] (DEFAULT) [address] [place] [address] Pathologic Diagnosis Normal [facility] Comment on above: Result Comment: Alan stiles, antrum, biopsy: Antral-oxyntic transitional mucosa with mild reactive changes No Helicobacter on H&E stained sections Performed By: #### S URGP #### [facility] (DEFAULT) [address] [place] [address] COVID-19, MOLECULARon 2020 SARS-COV-2 RNA (JOSE) Not Detected Normal Not Detected [facility] Comment on above: Order Comment: : COV ID-19 Lab Test Only (OP in UTM) Dr. Digna Enriquez [phone] Result Comment: This test was performed under the FDA's Emergency Use Authorization (EUA). Testing was performed using the Didier SARS-CoV-2 RT-PCR assay on the Jose Didier 6800 System. This test has not been approved for use in asymptomatic patients and its performance in this patient population has not been evaluated. Negative results do not rule out the presence of SARS-CoV-2/COVID-19. Fact sheets for this EUA can be found at the following links: For Healthcare Providers: https://www.[employer].gov/media/562094/download For Patients: https://www.[employer].gov/media/130303/download Performed By: #### L [id number] #### [facility] [address] [address] Vishnu Del Toro M.D. [id number] Provider Note - ED v2on 07-22 Provider Note - ED v2 Provider Note - ED v2: Chart Review: HISTORY OF PRESENTING ILLNESS MICHELINE is a 60 year old Female and was seen by me at 03-Aug-2020 17:36 for a chief complaint of difficulty breathing. Other complaints include: Patient presents with one week of headache, ear pain, coughing, shortness of breath. She called her PCP was prescribed an inhaler that she is using 8 times per day. She states her headache is excruciating and worsens with coughing. She denies a fever, nasal congestion, loss of taste, diarrhea. She has also used natural supplements. She states she is extremely tired and is having difficulty sleeping. . The historian is the patient. Triage Information: Most recent Vital Sign Value Date PAST MEDICAL HISTORY ATTESTATION: I have reviewed and confirmed nurse's/medic's notes for patient's medications, allergies, medical history, and surgical history CURRENT OR FORMER SUBSTANCE USE: NO: Cigarette/Tobacco ALLERGIES/INTOLERANCE S: Allergy Allergen: codeine Type: Drug Reaction: Rash Allergen: penicillin Type: Drug Reaction: Rash HEALTH HISTORY: No documented data. OUTPATIENT MEDICATIONS: Home Medications Review Status for Reconciliation: Complete Med Status: Patient Currently Takes Medications Drug Name: Azithromycin 3 Day Dose Pack 500 mg oral tablet Instructions: 1 tab(s) orally once a day Drug Name: predniSONE 20 mg oral tablet Instructions: 2 tab(s) orally once a day SIGNIFICANT EVENTS: Past Medical History Description:denies Past Surgical History Description:Tonsillec gigi & Adenoidectomy Description:Appendect olena Description:Cholecyst ectomy Description:Hysterect olena Social/Behavioral Description:denies smoking/drinking CHILD NEUROLOGIST: Is : no Is : no REVIEW OF SYSTEMS CONSTITUTIONAL: Negative for: anorexia, chills, fever and malaise ENMT Nose: Negative for: discharge and sneezing CARDIOVASCULAR: Negative for: chest pain and palpitations RESPIRATORY: POSITIVE for: cough, dyspnea and wheezing MUSCULOSKELETAL: POSITIVE for: back pain (from coughing) INTEGUMENTARY: Negative for: rash All other systems reviewed and are negative RESULTS/VITAL SIGNS VITAL SIGNS: T PRBP SpO2O2(LPM) %FiO2 Method 03-Aug-2020 16:14:[id number]/ 96 95 PHYSICAL EXAM CONSTITUTIONAL: Obese, toxic, awake, alert, oriented to person, place, time/situation and in moderate distress. HENMT: Airway patent, ears with injected tympanic membranes bilaterally. Nasal mucosa clear. Mouth with normal mucosa. Throat has no vesicles, no oropharyngeal exudates and uvula is midline. Face with no lymph node enlargement. EYES: Clear bilaterally, pupils equal, round and reactive to light. CARDIOVASCULAR: Normal rate, regular rhythm. Heart sounds S1, S2. No murmurs, rubs or gallops. PMI non-displaced. RESPIRATORY: Breath sounds clear and equal bilaterally. Wheezing and apparent dyspnea with ambulation. MUSCULOSKELETAL: Spine appears normal, range of motion is not limited, no muscle or joint tenderness. NEUROLOGICAL: Alert and oriented, no focal deficits, no motor or sensory deficits. SKIN: Skin normal color for race, warm, dry and intact. No evidence of trauma. MEDICAL DECISION MAKING/ED COURSE MDM/ED COURSE: Clinical presentation and exam are consistent with bronchitis with a double ear infection. Chest xray is umremarkable. She is dyspneic on exertion which may be due to a combination of her bronchitis and her weight. I will prescribe prednisone, and azithromycin and delsym OTC. Discussed with patient to seek medical treatment at the emergency room if condition worsens. Patient verbalized understanding of plan of care. CLINICAL IMPRESSION Diagnosis/Annotation: ED Dx Name:Acute bronchitis Code:J20.9 Name:Bilateral otitis media Code:H66.93 Disposition: discharged Type: home ATTESTATION CRITICAL CARE TIME Is this a critically ill patient: no Electronic Signatures: Lisa Ac (EXAMINATION SCORER-CONTRACTS DIRECTOR) (Signed 03-Aug-2020 18:29) Authored: HPI, PMH, ROS, PE, Results/Vital Signs, MDM/ED Course, Clinical Impression, Attestation, Chart Review, Scores Last Updated: 03-Aug-2020 18:29 by Lisa Ac (EXAMINATION SCORER-CONTRACTS DIRECTOR) Normal [facility] ECG 12-LEADon 11-01-2019 Atrial Rate 68 BPM [facility] P [place] 45 degrees [facility] P-R Interval 172 ms [facility] Q-T Interval 434 ms [facility] QRS Duration 88 ms [facility] QTC Calculation (Bezet) 461 ms [facility] R [place] 20 degrees [facility] T [place] 31 degrees [facility] Ventricular Rate 68 BPM [facility] th Normal sinus rhythm Possible Inferior infarct , age undetermined Possible Anterior infarct , age undetermined Abnormal ECG ECG Cart Interpretation see physician note for interpretation. Confirmed by Nargis Rhodes ([id number]) on 11/01/2019 4:46:58 PM [facility] POC B-type natriuretic pepti de (BNP)on 11-01-2019 Interpretation and review of laboratory results Normal [facility] Natriuretic peptide B (Bld) [Mass/Vol] 16.7 pg/mL <100 [facility] POC Basic Metabolic Panelon 11-01-2019 Calcium.ionized (Bld) [Mass/Vol] 4.2 mg/dL Low 4.5 - 5.3 mg/dL [facility] Chloride [Moles/Vol] 100 mmol/L 98 - 10 8 mmol/L [facility] CO2 [Moles/Vol] 31 mmol/L 21 - 32 mmol/L [facility] Creatinine [Mass/Vol] 1.11 mg/dL High 0.40 - 1.10 [facility] GFR/1.73 sq M.predicted MDRD (S/P/Bld) [Vol rate/Area] 55 mL/min/{1.73_m2} Low >=60 mL/min/1.73 m2 [facility] Glucose [Mass/Vol] 198 mg/dL High 65 - 99 mg/dL [facility] Interpretation and review of laboratory results Abnormal [facility] Potassium [Moles/Vol] 3.2 mmol/L Low 3.5 - 5.1 mmol/L [facility] Sodium [Moles/Vol] 142 mmol/L 135 - 145 mmol/L [facility] Urea nitrogen [Mass/Vol] 17 mg/dL 8 - 25 mg/dL [facility] POC CBC and Differentialon 0 11-01-2019 Erythrocyte distribution width (RBC) [Entitic vol] 14.2 % 11.6 - 14.8 % [facility] Hematocrit (Bld) [Volume fraction] 37.3 % 36 - 46 % [facility] Hemoglobin (Bld) [Mass/Vol] 12.5 g/dL 12 - 16 g/dL [facility] Interpretation and review of laboratory results Abnormal [facility] Lymphocytes (Bld) [#/Vol] 1.1 10*3/uL [facility] Lymphocytes/100 WBC (Bld) 31.7 % [facility] MCH (RBC) [Entitic mass] 29.6 pg 26 - 34 pg [facility] MCHC (RBC) [Mass/Vol] 33.5 g/dL 31 - 37 g/dL [facility] MCV (RBC) [Entitic vol] 88.4 fL 80 - 100 fL [facility] Mixed 5.6 % [facility] Mixed Abs 0.2 K/mcl [facility] Neutrophil Abs 2.1 [facility] Neutrophils/100 WBC (Bld) 62.7 % [facility] Platelet mean volume (Bld) [Entitic vol] 12.2 fL 9 - 15.5 fL [facility] Platelets (Bld) [#/Vol] 101 10*3/uL Low [facility] RBC (Bld) [#/Vol] 4.22 10*6/uL [facility] WBC (Bld) [#/Vol] 3.40 10*3/uL Low [facility] ealth Comment See Comment Critically abnormal (none) [facility] Comment on above: CRITICAL. CBCD reord ered and sent to . Abnormally low platelet count. Erythrocyte distribution width (RBC) [Entitic vol] 14.2 % 11.6 - 14.8 % [facility] Hematocrit (Bld) [Volume fraction] 37.7 % 36 - 46 % [facility] Hemoglobin (Bld) [Mass/Vol] 12.7 g/dL 12 - 16 g/dL [facility] Interpretation and review of laboratory results Abnormal [facility] Lymphocytes (Bld) [#/Vol] 1.0 10*3/uL [facility] Lymphocytes/100 WBC (Bld) 31.4 % [facility] MCH (RBC) [Entitic mass] 29.5 pg 26 - 34 pg [facility] MCHC (RBC) [Mass/Vol] 33.7 g/dL 31 - 37 g/dL [facility] MCV (RBC) [Entitic vol] 87.7 fL 80 - 100 fL [facility] Mixed 3.8 % [facility] Mixed Abs 0.1 K/mcl [facility] Neutrophil Abs 2.2 [facility] Neutrophils/100 WBC (Bld) 64.8 % [facility] Platelet mean volume (Bld) [Entitic vol] 12.2 fL 9 - 15.5 fL [facility] Platelets (Bld) [#/Vol] 96 10*3/uL Low [facility] RBC (Bld) [#/Vol] 4.30 10*6/uL [facility] WBC (Bld) [#/Vol] 3.30 10*3/uL Low [facility] POC D-dimeron 11-01-2019 Fibrin D-dimer DDU (PPP) [Mass/Vol] <100 <350 ng/mL DDU [facility] Interpretation and review of laboratory results Normal [facility] A D-Dimer concentration of <350 ng/mL DDU is considered a low probability for pulmonary embolism (PE) and deep venous thrombosis (DVT). Results of this test should always be interpreted in conjunction with the patient's medical history, clinical presentation, and other findings. Clinical diagnosis should not be based on the results of the D-dimer alone. The above D-dimer cutoff pertains to its use for the exclusion of DVT or PE. The range associated with other clinical conditions (e.g. sepsis) has not been validated for this method. 90% of normal patients are less than 400 ng/ml. [facility] POC Influenza A/Bon 11-01-19 20 Interpretation and review of laboratory results Normal [facility] POC Influenza B Ag Not Detected Not Detected [facility] POC Rapid Influenza A Ag Not Detected Not Detected [facility] POC Troponin Ion 11-01-2019 Interpretation and review of laboratory results Normal [facility] Troponin I.cardiac [Mass/Vol] ng/mL <0.05 ng/mL [facility] XR Chest 1 Viewon 11-01-2019 No acute cardiopulmonary process. FÁTIMA/justinek Workstation ID: [id number] [facility] Interface, Rad In Fuji Speechq - 11/01/2019 5:20 PM EST EXAMINATION: XR CHEST PA/AP 11/01/2019 1:35 pm HISTORY: ORDERING SYSTEM PROVIDED HISTORY: SOB, TECHNOLOGIST PROVIDED HISTORY: Illness/Other Reason for exam: sob Cancer History: u Surgery, RadiationHistory: u Encounter Type: Initial Additional signs and symptoms: n ORDERING SYSTEM PROVIDED DIAGNOSIS CODES: COMPARISON: Chest x-ray 06/23/2019. TECHNIQUE: Single portable semi-erect view. FINDINGS: Cardiac silhouette is stable and upper limits normal. No mediastinal widening. Lungs are expanded with no airspace consolidation, pneumothorax or sizable pleural effusion. No obvious acute osseous abnormality. IMPRESSION: No acute cardiopulmonary process. JAR/sjk Workstation ID: [id number] [facility] EXAMINATION: XR CHES T PA/AP 11/01/2019 1:35 pm HISTORY: ORDERING SYSTEM PROVIDED HISTORY: SOB, TECHNOLOGIST PROVIDED HISTORY: Illness/Other Reason for exam: sob Cancer History: u Surgery, RadiationHistory: u Encounter Type: Initial Additional signs and symptoms: n ORDERING SYSTEM PROVIDED DIAGNOSIS CODES: COMPARISON: Chest x-ray 06/23/2019. TECHNIQUE: Single portable semi-erect view. FINDINGS: Cardiac silhouette is stable and upper limits normal. No mediastinal widening. Lungs are expanded with no airspace consolidation, pneumothorax or sizable pleural effusion. No obvious acute osseous abnormality. [facility] XR Shoulder Right 2+ Views ( Standard)on 11-01-2019 EXAMINATION: XR SHOULDER RIGHT 2+ VIEWS (STANDARD) 11/01/2019 1:38 PM HISTORY: ORDERING SYSTEM PROVIDED HISTORY: Shoulder pain, history of fibromyalgia, TECHNOLOGIST PROVIDED HISTORY: Illness/Other Reason for exam: right shoulder pain Cancer History: u Surgery, RadiationHistory: u Encounter Type: Initial Additional signs and symptoms: n COMPARISON: None. FINDINGS: There are postsurgical changes involving the lower cervical spine from prior ACDF at the edge of the field of view. No fracture or dislocation is seen. There appear to be at least mild degenerative changes of the glenohumeral joint with small marginal osteophytes. There also appear to be mild-moderate degenerative changes of the acromioclavicular joint. [facility] Interface, Rad In Fuji Speechq - 11/01/2019 3:41 PM EST EXAMINATION: XR SHOULDER RIGHT 2+ VIEWS (STANDARD) 11/01/2019 1:38 PM HISTORY: ORDERING SYSTEM PROVIDED HISTORY: Shoulder pain, history of fibromyalgia, TECHNOLOGIST PROVIDED HISTORY: Illness/Other Reason for exam: right shoulder pain Cancer History: u Surgery, RadiationHistory: u Encounter Type: Initial Additional signs and symptoms: n COMPARISON: None. FINDINGS: There are postsurgical changes involving the lower cervical spine from prior ACDF at the edge of the field of view. No fracture or dislocation is seen. There appear to be at least mild degenerative changes of the glenohumeral joint with small marginal osteophytes. There also appear to be mild-moderate degenerative changes of the acromioclavicular joint. IMPRESSION: 1. There appears to be at least mild osteoarthritis of the glenohumeral joint and mild-moderate osteoarthritis of the acromioclavicular joint. 2. No fracture or dislocation is seen. DWR/trw Workstation ID: [id number] [facility] 1. There appears to be at least mild osteoarthritis of the glenohumeral joint and mild-moderate osteoarthritis of the acromioclavicular joint. 2. No fracture or dislocation is seen. DWR/trw Workstation ID: [id number] [facility] CT PULMONARY ARTERIESon 08-23 1. No acute PE is identified. Main pulmonary artery and thoracic aorta are normal caliber size. 2. Mild cardiomegaly. 3. Prior cholecystectomy and gastric bypass surgery. GJT/mjr Workstation ID: [id number] [facility] EXAMINATION: CT SCAN OF THE CHEST WITH CONTRAST FOR CT PULMONARY ANGIOGRAPHY, 09/20/2019 COMPARISON: CT scan of the chest, abdomen and upper pelvis with dissection technique, 08/04/2011. HISTORY: Dx: R06.09 (MCGOWAN (dyspnea on exertion)) Injury/Trauma or Illness?:Illness/Othe r How long have you had these symptoms (acute/chronic)?:[employer] romelia Dyspnea, chronic; Shortness of breath TECHNIQUE: 2.5 mm axial images performed through the chest following the intravenous administration of 75 mL of Isovue-370. 3 mm sagittal and coronal MPR reconstructions. 10 mm coronal and sagittal MIP (maximum intensity projection) CTA reconstructions performed through the chest. Dose reduction techniques were achieved by using automated exposure control and/or adjustment of mA and/or kV according to patient size and/or use of iterative reconstruction technique. FINDINGS: No acute PE is identified. Main pulmonary artery and thoracic aorta normal caliber size. Mild cardiomegaly with no pericardial effusion. No significant adenopathy. Mild bibasilar dependent atelectasis. Visualized upper abdomen demonstrates prior cholecystectomy and gastric bypass surgery. Orthopedic fixation plate overlying the lower cervical spine. No acute osseous abnormality. [facility] Interface, Rad In Fuji Speechq - 09/20/2019 4:16 PM EST EXAMINATION: CT SCAN OF THE CHEST WITH CONTRAST FOR CT PULMONARY ANGIOGRAPHY, 09/20/2019 COMPARISON: CT scan of the chest, abdomen and upper pelvis with dissection technique, 08/04/2011. HISTORY: Dx: R06.09 (MCGOWAN (dyspnea on exertion)) Injury/Trauma or Illness?:Illness/Othe r How long have you had these symptoms (acute/chronic)?:[employer] romelia Dyspnea, chronic; Shortness of breath TECHNIQUE: 2.5 mm axial images performed through the chest following the intravenous administration of 75 mL of Isovue-370. 3 mm sagittal and coronal MPR reconstructions. 10 mm coronal and sagittal MIP (maximum intensity projection) CTA reconstructions performed through the chest. Dose reduction techniques were achieved by using automated exposure control and/or adjustment of mA and/or kV according to patient size and/or use of iterative reconstruction technique. FINDINGS: No acute PE is identified. Main pulmonary artery and thoracic aorta normal caliber size. Mild cardiomegaly with no pericardial effusion. No significant adenopathy. Mild bibasilar dependent atelectasis. Visualized upper abdomen demonstrates prior cholecystectomy and gastric bypass surgery. Orthopedic fixation plate overlying the lower cervical spine. No acute osseous abnormality. IMPRESSION: 1. No acute PE is identified. Main pulmonary artery and thoracic aorta are normal caliber size. 2. Mild cardiomegaly. 3. Prior cholecystectomy and gastric bypass surgery. GJT/herberthr Workstation ID: [id number] [facility] ECHOCARDIOGRAM COMPLETEon Transthoracic Echocardiogram Patient: EVIN Bennett [facility] Rec#: [id number] (Age): 1960(59y) Height: 165.1(cm)/64(in Study Date: 09/05/2019 Weight: 132.9(kg)/292(l Room#: BSA: [id number] Type: Loc: Sex: F Reading: Vaishnavi Hoffmann M.D. Referring: Leticia Sylvester MD Ordering ProvidDr. Giorgi Thomas MD Loss Prevention Research Engineer: Elyse Messer RN RD History: Hypertension. Sleep apnea. Summary: Patient identity verified (pause and confirm). Current HP present on patient chart. Procedure explained and patient verified understanding. Consent obtained for procedure. Conclusions: Normal LV size and systolic function LVEF 70% Mild RV enlargement with normal RV function Normal diastolic function No hemodynamically significant valvular disease Findings Reason For Study: Shortness of breath. Left Ventricle: The left ventricular chamber size is normal. There is normal left ventricular systolic function. Normal left ventricular diastolic filling is observed. The ejection fraction is calculated to be 70% using the Method of Disks. Left Atrium: The left atrial chamber size is normal. Right Ventricle: The right ventricle is mildly dilated. The right ventricular global systolic function is normal. Right Atrium: The right atrial cavity size is normal. Aortic Valve: The aortic valve is trileaflet. There is no hemodynamically significant stenosis. There is no evidence of aortic regurgitation. Mitral Valve: The mitral valve leaflets appear normal. There is no evidence of mitral stenosis. There is no evidence of mitral regurgitation. Tricuspid Valve: The tricuspid valve leaflets are normal. There is no tricuspid stenosis. There is no evidence of tricuspid valve regurgitation. Pulmonic Valve: The pulmonic valve appears normal. There is no pulmonic stenosis. There is no evidence of pulmonic regurgitation. Pericardium: The pericardium appears normal. Aorta: The aorta appears normal. Venous: The inferior vena cava appears normal. HR BP 111/67 Measurements Chambers 2D Name Value Normal Range RVIDd (AP) 2D 5.24 cm none RVIDd (2D) index 2.25 cm/m2 none IVSd (2D) 0.81 cm none LVPWd (2D) 0.82 cm none IVS:LVPW ratio (2D) 0.99 ratio none LVIDd (2D) 4.68 cm none LVIDs (2D) 2.82 cm none LVIDd (2D) index 2.01 cm/m2 none LVIDs (2D) index 1.21 cm/m2 none LV FS (2D) 39.68 % none LV EF (2D) 70 % (60 - 100) EF Teichholz (2D) 70.25 % none Ao root diameter (2D) 3.37 cm none Aortic root diameter (2D) inde1.45 cm/m2 none Volumes/Mass Name Value Normal Range LA ESV SP 4CH (A/L) 49.05 ml none LA ESV SP 2CH (A/L) 53.46 ml none LA ESV BP (A/L) 52.18 ml none LA ESV BP (A/L) index 22.43 ml/m2 none LA ESV SP 4CH (MOD) 45.29 ml none LA ESV SP 2CH (MOD) 51.17 ml none LV EDV SP 4CH (MOD) 63.83 ml none LV ESV SP 4CH (MOD) 18.52 ml none EF SP 4CH (MOD) 70.99 % none LV EDV SP 2CH (MOD) 72.67 ml none LV ESV SP 2CH (MOD) 21.37 ml none EF SP 2CH (MOD) 70.59 % none LV EDV BP 69.44 ml none LV ESV BP 20.8 ml none BP EF (MOD) 70.05 % none LV EDV BP index 29.84 ml/m2 none LV ESV BP index 8.94 ml/m2 none LV mass (2D) 124.51 g none LV mass (2D) index 53.51 g/m2 none RWT 0.35 ratio none Diastolic/Systolic Function Name Value Normal Range MV E-wave Vmax 0.65 m/sec none MV deceleration time 180.07 msec none MV A-wave Vmax 0.57 m/sec none MV E:A ratio 1.14 ratio (1.1 - 1.5) LV septal e' Vmax 0.11 m/sec none LV lateral e' Vmax 0.11 m/sec none LV E:e' septal ratio 5.97 ratio none LV E:e' lateral ratio 6.18 ratio none TAPSE 2.7 cm none Aortic Valve Name Value Normal Range AV Vmax 1.62 m/sec (1 - 1.7) AV VTI 32.07 cm none AV peak gradient 10.54 mmHg (Less Than 36) AV mean gradient 5.32 mmHg (Less Than 20) LVOT Vmax 1.4 m/sec (0.7 - 1.1) LVOT VTI 25.76 cm none LVOT peak gradient 7.88 mmHg none LVOT mean gradient 3.49 mmHg none DOI (VTI) 0.8 ratio none DOI (Vmax) 0.86 ratio none Ascending Ao 3.28 cm none Mitral Valve Name Value Normal Range MV Vmax 0.78 m/sec (0.6 - 1.3) MV VTI 26.03 cm none MV peak gradient 2.46 mmHg none MV mean gradient 0.92 mmHg none MV PHT 47.74 msec none MVA (PHT) 4.61 cm2 none Tricuspid Valve Name Value Normal Range IVC diameter 1.58 cm none Pulmonic Valve/Qp:Qs Name Value Normal Range PV Vmax 1.31 m/sec (0.6 - 0.9) PV VTI 23.67 cm none PV peak gradient 6.9 mmHg none PV mean gradient 2.91 mmHg none Electronically Signed at 09/05/2019 15:55:35 by: Vaishnavi Hoffmann M.D. [facility], Rad In [facility] Echopacs - 09/05/2019 5:57 PM EST Transthoracic Echocardiogram Patient: EVIN Bennett [facility] Rec#: [id number] (Age): 1960(59y) Height: 165.1(cm)/64(in Study Date: 09/05/2019 Weight: 132.9(kg)/292(l Room#: BSA: [id number] Type: Loc: Sex: F Reading: Vaishnavi Hoffmann M.D. Referring: Leticia Sylvester MD Ordering ProvidDr. Giorgi Thomas MD Loss Prevention Research Engineer: Elyse Messer RN RDCS History: Hypertension. Sleep apnea. Summary: Patient identity verified (pause and confirm). Current HP present on patient chart. Procedure explained and patient verified understanding. Consent obtained for procedure. Conclusions: Normal LV size and systolic function LVEF 70% Mild RV enlargement with normal RV function Normal diastolic function No hemodynamically significant valvular disease Findings Reason For Study: Shortness of breath. Left Ventricle: The left ventricular chamber size is normal. There is normal left ventricular systolic function. Normal left ventricular diastolic filling is observed. The ejection fraction is calculated to be 70% using the Method of Disks. Left Atrium: The left atrial chamber size is normal. Right Ventricle: The right ventricle is mildly dilated. The right ventricular global systolic function is normal. Right Atrium: The right atrial cavity size is normal. Aortic Valve: The aortic valve is trileaflet. There is no hemodynamically significant stenosis. There is no evidence of aortic regurgitation. Mitral Valve: The mitral valve leaflets appear normal. There is no evidence of mitral stenosis. There is no evidence of mitral regurgitation. Tricuspid Valve: The tricuspid valve leaflets are normal. There is no tricuspid stenosis. There is no evidence of tricuspid valve regurgitation. Pulmonic Valve: The pulmonic valve appears normal. There is no pulmonic stenosis. There is no evidence of pulmonic regurgitation. Pericardium: The pericardium appears normal. Aorta: The aorta appears normal. Venous: The inferior vena cava appears normal. HR BP 111/67 Measurements Chambers 2D Name Value Normal Range RVIDd (AP) 2D 5.24 cm none RVIDd (2D) index 2.25 cm/m2 none IVSd (2D) 0.81 cm none LVPWd (2D) 0.82 cm none IVS:LVPW ratio (2D) 0.99 ratio none LVIDd (2D) 4.68 cm none LVIDs (2D) 2.82 cm none LVIDd (2D) index 2.01 cm/m2 none LVIDs (2D) index 1.21 cm/m2 none LV FS (2D) 39.68 % none LV EF (2D) 70 % (60 - 100) EF Teichholz (2D) 70.25 % none Ao root diameter (2D) 3.37 cm none Aortic root diameter (2D) inde1.45 cm/m2 none Volumes/Mass Name Value Normal Range LA ESV SP 4CH (A/L) 49.05 ml none LA ESV SP 2CH (A/L) 53.46 ml none LA ESV BP (A/L) 52.18 ml none LA ESV BP (A/L) index 22.43 ml/m2 none LA ESV SP 4CH (MOD) 45.29 ml none LA ESV SP 2CH (MOD) 51.17 ml none LV EDV SP 4CH (MOD) 63.83 ml none LV ESV SP 4CH (MOD) 18.52 ml none EF SP 4CH (MOD) 70.99 % none LV EDV SP 2CH (MOD) 72.67 ml none LV ESV SP 2CH (MOD) 21.37 ml none EF SP 2CH (MOD) 70.59 % none LV EDV BP 69.44 ml none LV ESV BP 20.8 ml none BP EF (MOD) 70.05 % none LV EDV BP index 29.84 ml/m2 none LV ESV BP index 8.94 ml/m2 none LV mass (2D) 124.51 g none LV mass (2D) index 53.51 g/m2 none RWT 0.35 ratio none Diastolic/Systolic Function Name Value Normal Range MV E-wave Vmax 0.65 m/sec none MV deceleration time 180.07 msec none MV A-wave Vmax 0.57 m/sec none MV E:A ratio 1.14 ratio (1.1 - 1.5) LV septal e' Vmax 0.11 m/sec none LV lateral e' Vmax 0.11 m/sec none LV E:e' septal ratio 5.97 ratio none LV E:e' lateral ratio 6.18 ratio none TAPSE 2.7 cm none Aortic Valve Name Value Normal Range AV Vmax 1.62 m/sec (1 - 1.7) AV VTI 32.07 cm none AV peak gradient 10.54 mmHg (Less Than 36) AV mean gradient 5.32 mmHg (Less Than 20) LVOT Vmax 1.4 m/sec (0.7 - 1.1) LVOT VTI 25.76 cm none LVOT peak gradient 7.88 mmHg none LVOT mean gradient 3.49 mmHg none DOI (VTI) 0.8 ratio none DOI (Vmax) 0.86 ratio none Ascending Ao 3.28 cm none Mitral Valve Name Value Normal Range MV Vmax 0.78 m/sec (0.6 - 1.3) MV VTI 26.03 cm none MV peak gradient 2.46 mmHg none MV mean gradient 0.92 mmHg none MV PHT 47.74 msec none MVA (PHT) 4.61 cm2 none Tricuspid Valve Name Value Normal Range IVC diameter 1.58 cm none Pulmonic Valve/Qp:Qs Name Value Normal Range PV Vmax 1.31 m/sec (0.6 - 0.9) PV VTI 23.67 cm none PV peak gradient 6.9 mmHg none PV mean gradient 2.91 mmHg none Electronically Signed at 09/05/2019 15:55:35 by: Vaishnavi Hoffmann M.D. [facility] BUNon 08-22-2019 Interpretation and review of laboratory results Normal [facility] Urea nitrogen [Mass/Vol] 12 mg/dL 8 - 25 mg/dL [facility] Creatinine, serumon 08-22-20 19 Creatinine [Mass/Vol] 1.07 mg/dL 0.4 - 1.1 mg/dL [facility] GFR/1.73 sq M predicted among non-blacks MDRD (S/P/Bld) [Vol rate/Area] The eGFR should be used for monitoring renal function only and not for medication dosing. [facility] GFR/1.73 sq M.predicted CKD-EPI (S/P/Bld) [Vol rate/Area] 57 Low >=60 mL/min/1.73 m2 [facility] Interpretation and review of laboratory results Abnormal [facility] CBCon 07-28-2019 Erythrocyte distribution width (RBC) [Entitic vol] 13.6 % 11.6 - 14.8 % [facility] Hematocrit (Bld) [Volume fraction] 41.7 % 36 - 46 % [facility] Hemoglobin (Bld) [Mass/Vol] 13.9 g/dL 12 - 16 g/dL [facility] Interpretation and review of laboratory results Abnormal [facility] MCH (RBC) [Entitic mass] 29.7 pg 26 - 34 pg [facility] MCHC (RBC) [Mass/Vol] 33.3 g/dL 31 - 37 g/dL [facility] MCV (RBC) [Entitic vol] 89.1 fL 80 - 100 fL [facility] Nucleated RBC (Bld) [#/Vol] 0.00 10*3/uL [facility] Nucleated RBC/100 WBC (Bld) [Ratio] 0.0 % [facility] Platelet mean volume (Bld) [Entitic vol] 12.1 fL 9 - 15.5 fL [facility] Platelets (Bld) [#/Vol] 132 10*3/uL Low [facility] RBC (Bld) [#/Vol] 4.68 10*6/uL [facility] WBC (Bld) [#/Vol] 4.54 10*3/uL [facility] Creatinine, serumon 07-28-20 19 Creatinine [Mass/Vol] 0.78 mg/dL 0.4 - 1.1 mg/dL [facility] GFR/1.73 sq M predicted among non-blacks MDRD (S/P/Bld) [Vol rate/Area] The eGFR should be used for monitoring renal function only and not for medication dosing. [facility] GFR/1.73 sq M.predicted CKD-EPI (S/P/Bld) [Vol rate/Area] 84 >=60 mL/min/1.73 m2 [facility] Otheron 07-28-2019 Interpretation and review of laboratory results Normal [facility] Potassium Levelon 07-28-2019 Potassium [Moles/Vol] 3.9 mmol/L 3.5 - 5.1 mmol/L [facility] US ABDOMEN LIMITED STUDYon 09-27-2018 1. Cirrhotic appearance to the liver. Elevated liver echotexture suggests underlying fatty infiltration. No focal hepatic mass. 2. Status post cholecystectomy. No biliary ductal dilatation. 3. Inadequate visualization of the pancreas. Workstation ID: [id number] [facility] EXAMINATION: US ABDOMEN LIMITED STUDY HISTORY: Epigastric painDx: R10.13 (Epigastric pain) History of SALINAS/cirrhosis. Prior gastric bypass and cholecystectomy. COMPARISON: CT abdomen and pelvis 05/02/2019. FINDINGS: Ultrasound performed of the right upper quadrant. Pancreas is poorly visualized due to shadowing from overlying bowel gas. Liver echotexture is elevated consistent with fatty infiltration. Slight nodular contour of the liver is consistent with cirrhosis. No focal hepatic mass is identified on the images provided. Gallbladder is absent. Common duct is normal measuring 4 mm. Right renal echotexture is within normal limits and the right kidney measures 10.1 cm in length. No hydronephrosis. [facility] Interface, Rad In [employer] - 07/28/2019 12:26 PM EST EXAMINATION: US ABDOMEN LIMITED STUDY HISTORY: Epigastric painDx: R10.13 (Epigastric pain) History of SALINAS/cirrhosis. Prior gastric bypass and cholecystectomy. COMPARISON: CT abdomen and pelvis 05/02/2019. FINDINGS: Ultrasound performed of the right upper quadrant. Pancreas is poorly visualized due to shadowing from overlying bowel gas. Liver echotexture is elevated consistent with fatty infiltration. Slight nodular contour of the liver is consistent with cirrhosis. No focal hepatic mass is identified on the images provided. Gallbladder is absent. Common duct is normal measuring 4 mm. Right renal echotexture is within normal limits and the right kidney measures 10.1 cm in length. No hydronephrosis. IMPRESSION: 1. Cirrhotic appearance to the liver. Elevated liver echotexture suggests underlying fatty infiltration. No focal hepatic mass. 2. Status post cholecystectomy. No biliary ductal dilatation. 3. Inadequate visualization of the pancreas. Workstation ID: [id number] [facility] CARDIAC CATHETERIZATIONon Cardiac Catheterization Operative Report Patient: Micheline Fox Date: 07/08/2019 @PCP@ Procedure: Left Heart Catheterization, Left ventricular angiography, Selective coronary angiography This is a 59 y.o.female who was referred for cardiac catheterization. Indications for the procedure include: chest pain. Procedure Details The risks, benefits and alternatives to the planned procedure were reviewed with the patient, informed consent was obtained and placed in the chart. Patient was brought to the cardiac [employer] and prepped and draped in usual sterile fashion. Using a modified Seldinger technique access was established and a 6 Arabic sheath was placed in the right radial artery. We used a JR 5 and JL 3 5 catheter to respectively engage RCA and LCA. The JR catheter was also used to record LVDP and do an LV gram. during the procedure all the catheter advances and exchanges were performed over a soft tipped J-wire. During the procedure patient also complained of pain in the right arm area. Patient was given multiple doses of intra-arterial nitroglycerin for suspected spasm.at the end of the procedure we did a radial angiogram which did not show any evidence of severe spasm of perforation. After completion of procedure a TR band was deployed with adequate hemostasis. Impression and Recommendations: Nonobstructive coronary artery disease Recommendations: Risk factor modification and medical management for nonobstructive coronary artery disease Will monitor postprocedure for 3 hours Findings: Hemodynamics opening aortic pressure 120/79 mmHg LV LVEDP 16 mmHg, LVEF of 55% Left Main normal RCA large dominant vessel with with an area of 30 to 40% stenosis in mid RCA LAD mild diffuse disease in mid segment, moderate size diagonal 1 and graphically normal Circ mid circumflex before the region of large size OM1 has 30 to 40% stenosis. After the origin of OM1 it continues as a small size vessel Closure Device TR band Complications no immediate complications Estimated Blood Loss: Minimal Complications: None; patient tolerated the procedure well. Disposition: Short term care Condition: stable Electronically Signed by: Hari Acosta M.D 07/08/19 9:53 AM [facility] ECG 12-LEADon 06-24-2019 Atrial Rate [facility] P [place] [facility] P-R Interval [facility] Q-T Interval [facility] Q-T Interval (corrected) [facility] QRS Duration [facility] QTC Calculation (Bezet) [facility] R [place] [facility] T [place] [facility] Ventricular Rate [facility] th Otheron 06-24-2019 EXAMINATION: 2-VIEW XR CHEST AP/PA AND LAT, 06/23/2019 COMPARISON: Chest, 04/26/2018. HISTORY: Dx: R07.9 (Chest pain, unspecified type) Injury/Trauma or Illness?:Illness/Othe r How long have you had these symptoms (acute/chronic)?:Acut e mcgowan [facility] 1. No acute cardiopulmonary disease. 2. Normal heart size. 3. No acute osseous abnormality. Orthopedic fixation of the lower visualized cervical spine redemonstrated. [employer]/enercast Workstation ID: [id number] [facility] Interface, Rad In [facility] - 06/24/2019 12:41 AM EDT EXAMINATION: 2-VIEW XR CHEST AP/PA AND LAT, 06/23/2019 COMPARISON: Chest, 04/26/2018. HISTORY: Dx: R07.9 (Chest pain, unspecified type) Injury/Trauma or Illness?:Illness/Othe r How long have you had these symptoms (acute/chronic)?:Acut e mcgowan IMPRESSION: 1. No acute cardiopulmonary disease. 2. Normal heart size. 3. No acute osseous abnormality. Orthopedic fixation of the lower visualized cervical spine redemonstrated. [employer]/enercast Workstation ID: [id number] [facility] Comprehensive metabolic pane josé 06-23-2019 Albumin [Mass/Vol] 3.9 g/dL 3.2 - 5.2 g/dL [facility] ALP [Catalytic activity/Vol] 98 U/L 40 - 150 U/L [facility] ALT [Catalytic activity/Vol] 50 U/L 14 - 65 U/L [facility] Anion gap [Moles/Vol] 12 mmol/L 10 - 2 0 mmol/L [facility] AST [Catalytic activity/Vol] 31 U/L 0 - 45 U/L [facility] Bilirubin [Mass/Vol] 0.5 mg/dL 0 - 1.3 mg/dL [facility] Calcium [Mass/Vol] 8.2 mg/dL Low 8.4 - 10. 2 mg/dL [facility] Chloride [Moles/Vol] 106 mmol/L 98 - 10 8 mmol/L [facility] Creatinine [Mass/Vol] 1.04 mg/dL 0.4 - 1.1 mg/dL [facility] GFR/1.73 sq M predicted among non-blacks MDRD (S/P/Bld) [Vol rate/Area] The eGFR should be used for monitoring renal function only and not for medication dosing. [facility] GFR/1.73 sq M.predicted CKD-EPI (S/P/Bld) [Vol rate/Area] 59 Low >=60 mL/min/1.73 m2 [facility] Glucose [Mass/Vol] 89 mg/dL 65 - 99 mg/dL [facility] HCO3 [Moles/Vol] 28 mmol/L 21 - 32 mmol/L [facility] Interpretation and review of laboratory results Abnormal [facility] Potassium [Moles/Vol] 4.0 mmol/L 3.5 - 5.1 mmol/L [facility] Protein [Mass/Vol] 7.3 g/dL 6 - 8 g/dL [facility] alth Sodium [Moles/Vol] 142 mmol/L 135 - 145 mmol/L [facility] Urea nitrogen [Mass/Vol] 26 mg/dL High 8 - 25 mg/dL [facility] Urea nitrogen/Creatinine [Mass ratio] 25.0 mg/mg High [facility] NT PRO BNPon 06-23-2019 Natriuretic peptide.B prohormone N-Terminal [Mass/Vol] 35 pg/mL 0 - 300 pg/mL [facility] Comment on above: Please note referenc e range change as of 09/08/18. [employer] Study Cut-offs Rule In: < /= 50 Years >450 pg/mL 51 Years - 75 Years >900 pg/mL 76 Years - 99 Years >1800 pg/mL Rule Out: All patients <300 pg/mL [facility] Otheron 06-23-2019 Interpretation and review of laboratory results Normal [facility] TSH with Reflex Free T4on TSH Qn 1.85 m[IU]/L [facility] CT Abdomen Pelvis Without Co ntraston 05-02-2019 1. No acute abnormality of the abdomen or pelvis identified. 2. Cirrhotic changes of the liver with splenomegaly redemonstrated. 3. Postsurgical changes from cholecystectomy and gastric bypass surgery as well as hysterectomy present. Additional scarring seen along the anterior and lateral aspect of the abdomen and left upper hemipelvic region are stable findings. 4. Some mild fatty stranding adjacent to the pancreatic head and near the celiac artery and superior mesenteric artery are stable findings but the possibility of some subtle acute pancreatitis would be difficult to exclude and precautionary correlation with pancreatic enzymes recommended. 5. No bowel obstruction. The appendix is not visualized. [employer] Workstation ID: [id number] [facility] EXAMINATION: CT ABDOMEN PELVIS WITHOUT CONTRAST, 05/02/2019 COMPARISON: CT scan of the abdomen and pelvis without contrast, 04/26/2019. HISTORY: Dx: R10.9 (Stomach ache), Stomach ache, Injury/Trauma or Illness?:Illness/Othe r How long have you had these symptoms (acute/chronic)?:Acut e TECHNIQUE: 3 mm axial images performed through the abdomen and pelvis without oral or intravenous contrast. 3 mm coronal and sagittal MPR reconstructions performed through the abdomen and pelvis. Dose reduction techniques were achieved by using automated exposure control and/or adjustment of mA and/or kV according to patient size and/or use of iterative reconstruction technique. FINDINGS: ABDOMINAL CT: Lung bases are clear. Mild cardiomegaly with small trace of physiologic pericardial fluid seen anteriorly. Severe atherosclerotic calcific changes of coronary arterial vasculature. Patient has had prior cholecystectomy and gastric bypass surgery. Some mild fatty stranding near the pancreatic head and near the superior mesenteric artery and celiac artery, stable findings. Slight nodular contour of the liver with asymmetric prominence of the left hepatic lobe and caudate lobe with respect to the right hepatic lobe consistent with cirrhotic changes redemonstrated. Mild splenomegaly measuring 14.1 x 5.1 x 14.7 cm redemonstrated. Remaining nonenhanced abdominal solid organs are unremarkable. Focal scarring along the anterior aspect of the anterior abdominal wall with some fatty stranding seen anterolaterally in the left flank where there is a surgical scar remains stable. Metallic streaking artifact from intervertebral spacer at the L4-[address]: Atherosclerotic calcific changes of the aorta and pelvic arterial vasculature. Prior hysterectomy. Some linear scar tissue in the left posterolateral flank of the junction of the lower abdomen and upper pelvis best seen along the left anterior iliacus muscle is a stable chronic finding. Nonopacified urinary bladder is unremarkable. No bowel obstruction. The appendix is not visualized. No acute osseous abnormality. [facility], Rad In Micah Sesayq - 05/02/2019 4:08 PM EDT EXAMINATION: CT ABDOMEN PELVIS WITHOUT CONTRAST, 05/02/2019 COMPARISON: CT scan of the abdomen and pelvis without contrast, 04/26/2019. HISTORY: Dx: R10.9 (Stomach ache), Stomach ache, Injury/Trauma or Illness?:Illness/Othe r How long have you had these symptoms (acute/chronic)?:Acut e TECHNIQUE: 3 mm axial images performed through the abdomen and pelvis without oral or intravenous contrast. 3 mm coronal and sagittal MPR reconstructions performed through the abdomen and pelvis. Dose reduction techniques were achieved by using automated exposure control and/or adjustment of mA and/or kV according to patient size and/or use of iterative reconstruction technique. FINDINGS: ABDOMINAL CT: Lung bases are clear. Mild cardiomegaly with small trace of physiologic pericardial fluid seen anteriorly. Severe atherosclerotic calcific changes of coronary arterial vasculature. Patient has had prior cholecystectomy and gastric bypass surgery. Some mild fatty stranding near the pancreatic head and near the superior mesenteric artery and celiac artery, stable findings. Slight nodular contour of the liver with asymmetric prominence of the left hepatic lobe and caudate lobe with respect to the right hepatic lobe consistent with cirrhotic changes redemonstrated. Mild splenomegaly measuring 14.1 x 5.1 x 14.7 cm redemonstrated. Remaining nonenhanced abdominal solid organs are unremarkable. Focal scarring along the anterior aspect of the anterior abdominal wall with some fatty stranding seen anterolaterally in the left flank where there is a surgical scar remains stable. Metallic streaking artifact from intervertebral spacer at the L4-[address] PELV[address]: Atherosclerotic calcific changes of the aorta and pelvic arterial vasculature. Prior hysterectomy. Some linear scar tissue in the left posterolateral flank of the junction of the lower abdomen and upper pelvis best seen along the left anterior iliacus muscle is a stable chronic finding. Nonopacified urinary bladder is unremarkable. No bowel obstruction. The appendix is not visualized. No acute osseous abnormality. IMPRESSION: 1. No acute abnormality of the abdomen or pelvis identified. 2. Cirrhotic changes of the liver with splenomegaly redemonstrated. 3. Postsurgical changes from cholecystectomy and gastric bypass surgery as well as hysterectomy present. Additional scarring seen along the anterior and lateral aspect of the abdomen and left upper hemipelvic region are stable findings. 4. Some mild fatty stranding adjacent to the pancreatic head and near the celiac artery and superior mesenteric artery are stable findings but the possibility of some subtle acute pancreatitis would be difficult to exclude and precautionary correlation with pancreatic enzymes recommended. 5. No bowel obstruction. The appendix is not visualized. GJT/ges Workstation ID: [id number] [facility] CPKon 07-19-2018 CPK 57 U/L Normal 40-170 [facility] Comment on above: Performed By: #### N TPROBNP, CHEM8, CBCDIF, PT, PTT, EDCTNI ####Unless otherwise noted, all testing performed by [address] [phone]: [id number] Director: Ramakrishna Browne M.D. CPK, Totalon 07-19-2018 CK enzyme act/vol 57 U/L Invalid Interpretation Code 40 - 170 U/L [facility] Myoglobinon 07-19-2018 Myoglobin mass conc 40 ng/mL Normal 13-71 [facility] Comment on above: Performed By: #### N TPROBNP, CHEM8, CBCDIF, PT, PTT, EDCTNI ####Unless otherwise noted, all testing performed by [address] [phone]: [id number] Director: Ramakrishna Browne M.D. Myoglobin, Bloodon 8 Myoglobin mass conc 40 ng/mL Invalid Interpretation Code 13 - 71 ng/mL [facility] 25-Hydroxy D Totalon 018 25-Hydroxy D Total 32 ng/mL Normal 30-100 [facility] Comment on above: Result Comment: Plelucio diaz note that Fluorescein which is used in angiography has been shownto falsely elevate the results of Vitamin D with our current assay.Evidence suggests that patients undergoing fluorescein dye angiographycan retain small amounts of fluorescein in the body for up to 48 to 72hours post-treatment. In the cases of patients with renal insufficiency,retention could be much longer. Samples should be resubmitted postfluorescein clearance to ensure there is no interference with theVitamin D test result.Vitamin D Status Range:Deficiency < 20 ng/mLInsufficiency 20-30 ng/mLSufficiency 30-100 ng/mLToxicity > 100 ng/mL Performed By: #### N TPROBNP, CHEM8, CBCDIF, PT, PTT, EDCTNI ####Unless otherwise noted, all testing performed by [address] [phone]: [id number] Director: Ramakrishna Browne M.D. Francesca 06-25-2018 ALT enzyme act/vol 36 U/L Invalid Interpretation Code 14 - 65 U/L [facility] Comment on above: This test result amanda ht be falsely depressed or falsely elevated on samples drawn from patients taking Sulfasalazine and Sulfapyridine. Venipuncture should occur prior to taking either of these drugs. ALT (SGPT)on 06-25-2018 ALT enzyme act/vol 36 U/L Normal 14-65 [facility] Comment on above: Result Comment: This test result might be falsely depressed or falsely elevated onsamples drawn from patients taking Sulfasalazine and Sulfapyridine.Venipuncture should occur prior to taking either of these drugs. Performed By: #### N TPROBNP, CHEM8, CBCDIF, PT, PTT, EDCTNI ####Unless otherwise noted, all testing performed by [address] [phone]: [id number] Director: Ramakrishna Browne M.D. Christa 06-25-2018 AST enzyme act/vol 25 U/L Invalid Interpretation Code 0 - 45 U/L [facility] Comment on above: This test result amanda ht be falsely depressed or falsely elevated on samples drawn from patients taking Sulfasalazine and Sulfapyridine. Venipuncture should occur prior to taking either of these drugs. AST (SGOT)on 06-25-2018 AST enzyme act/vol 25 U/L Normal 0-45 [facility] Comment on above: Result Comment: This test result might be falsely depressed or falsely elevated onsamples drawn from patients taking Sulfasalazine and Sulfapyridine.Venipuncture should occur prior to taking either of these drugs. Performed By: #### N TPROBNP, CHEM8, CBCDIF, PT, PTT, EDCTNI ####Unless otherwise noted, all testing performed by [facility], [place] [phone]: [id number] Director: Ramakrishna Browne M.D. Basic Metabolic Panelon Calcium mass conc 8.3 mg/dL Low 8.4 - 10.2 mg/dL [facility] Chloride molar conc 108 mmol/L Invalid Interpretation Code 98 - 108 mmol/L [facility] CO2 molar conc 25 mmol/L Invalid Interpretation Code 21 - 32 mmol/L [facility] Creatinine mass conc 0.83 mg/dL Invalid Interpretation Code 0.4 - 1.1 mg/dL [facility] GFR/1.73 sq M predicted among blacks MDRD vol rate/area (S/P/Bld) mL/min/{1.73_m2} Invalid Interpretation Code ml/min/1.73sq .m [facility] Comment on above: GFR Calc GFR/1.73 sq M predicted among non-blacks MDRD vol rate/area (S/P/Bld) mL/min/{1.73_m2} Invalid Interpretation Code ml/min/1.73sq .m [facility] Comment on above: Non- GFR Calc eGFR is an estimated Glomerular Filtration Rate based on the value of the patient's serum creatinine. In outpatients, eGFR should be used as a helpful tool in screening for CKD. In inpatients or patients with acute renal failure, eGFR represents the GFR at the moment of the draw and should be used with caution. Glucose mass conc 113 mg/dL High 70 - 99 mg/dL [facility] Comment on above: This test result amnada ht be falsely depressed or falsely elevated on samples drawn from patients taking Sulfasalazine and Sulfapyridine. Venipuncture should occur prior to taking either of these drugs. Potassium molar conc 4.2 mmol/L Invalid Interpretation Code 3.5 - 5.1 mmol/L [facility] Sodium molar conc 141 mmol/L Invalid Interpretation Code 135 - 145 mmol/L [facility] Urea nitrogen mass conc 23 mg/dL Invalid Interpretation Code 8 - 25 mg/dL [facility] Calcium mass conc 8.3 mg/dL Low 8.4-10.2 [facility] Comment on above: Performed By: #### N TPROBNP, CHEM8, CBCDIF, PT, PTT, EDCTNI ####Unless otherwise noted, all testing performed by [address] [phone]: [id number] Director: Ramakrishna Browne M.D. Chloride molar conc 108 mmol/L Normal 98-108 [facility] Comment on above: Performed By: #### N TPROBNP, CHEM8, CBCDIF, PT, PTT, EDCTNI ####Unless otherwise noted, all testing performed by [address] [phone]: [id number] Director: Ramakrishna Browne M.D. CO2 molar conc 25 mmol/L Normal 21-32 [facility] Comment on above: Performed By: #### N TPROBNP, CHEM8, CBCDIF, PT, PTT, EDCTNI ####Unless otherwise noted, all testing performed by [address] [phone]: [id number] Director: Ramakrishna Browne M.D. Creatinine mass conc 0.83 mg/dL Normal 0.40-1.10 [facility] Comment on above: Performed By: #### N TPROBNP, CHEM8, CBCDIF, PT, PTT, EDCTNI ####Unless otherwise noted, all testing performed by [place] [phone]: [id number] Director: Ramakrishna Browne M.D. GFR/1.73 sq M predicted among blacks MDRD vol rate/area (S/P/Bld) mL/min/{1.73_m2} Normal [facility] Comment on above: Result Comment: Afri can Tanzanian GFR Calc Performed By: #### N TPROBNP, CHEM8, CBCDIF, PT, PTT, EDCTNI ####Unless otherwise noted, all testing performed by [place] [phone]: [id number] Director: Ramakrishna Browne M.D. GFR/1.73 sq M predicted among non-blacks MDRD vol rate/area (S/P/Bld) mL/min/{1.73_m2} Normal [facility] Comment on above: Result Comment: Non- GFR CalceGFR is an estimated Glomerular Filtration Rate based on the valueof the patient's serum creatinine. In outpatients, eGFR should be usedas a helpful tool in screening for CKD. In inpatients or patients withacute renal failure, eGFR represents the GFR at the moment of the drawand should be used with caution. Performed By: #### N TPROBNP, CHEM8, CBCDIF, PT, PTT, EDCTNI ####Unless otherwise noted, all testing performed by [address] [phone]: [id number] Director: Ramakrishna Browne M.D. Glucose mass conc 113 mg/dL High 70-99 [facility] Comment on above: Result Comment: This test result might be falsely depressed or falsely elevated onsamples drawn from patients taking Sulfasalazine and Sulfapyridine.Venipuncture should occur prior to taking either of these drugs. Performed By: #### N TPROBNP, CHEM8, CBCDIF, PT, PTT, EDCTNI ####Unless otherwise noted, all testing performed by [address] [phone]: [id number] Director: Ramakrishna Browne M.D. Potassium molar conc 4.2 mmol/L Normal 3.5-5.1 [facility] Comment on above: Performed By: #### N TPROBNP, CHEM8, CBCDIF, PT, PTT, EDCTNI ####Unless otherwise noted, all testing performed by [address] [phone]: [id number] Director: Ramakrishna Browne M.D. Sodium molar conc 141 mmol/L Normal 135-145 [facility] Comment on above: Performed By: #### N TPROBNP, CHEM8, CBCDIF, PT, PTT, EDCTNI ####Unless otherwise noted, all testing performed by [address] [phone]: [id number] Director: Ramakrishna Browne M.D. Urea nitrogen mass conc 23 mg/dL Normal 8-25 [facility] Comment on above: Performed By: #### N TPROBNP, CHEM8, CBCDIF, PT, PTT, EDCTNI ####Unless otherwise noted, all testing performed by [address] [phone]: [id number] Director: Ramakrishna Browne M.D. CBCon 06-25-2018 Erythrocyte distribution width Auto Ratio (RBC) 15.0 % High 10 - 14.4 % [facility] Hematocrit Auto Volume Fraction (Bld) 38.4 % Invalid Interpretation Code 34.4 - 44.8 % [facility] Hemoglobin mass conc (Bld) 13.2 g/dL Invalid Interpretation Code 11.6 - 15.4 g/dL [facility] Interpretation and review of laboratory results Abnormal Invalid Interpretation Code [facility] MCH Auto Entitic mass (RBC) 29.2 pg Invalid Interpretation Code 27.9 - 33.9 pg [facility] MCHC Auto mass conc (RBC) 34.2 g/dL Invalid Interpretation Code 33.1 - 35.1 g/dL [facility] MCV Auto Entitic volume (RBC) 85.3 fL Invalid Interpretation Code [facility] Platelet mean volume Auto Entitic volume (Bld) 9.5 fL Invalid Interpretation Code [facility] Platelets Auto #/vol (Bld) 116 10*3/uL Low [facility] RBC Auto #/vol (Bld) 4.50 10*6/uL Invalid Interpretation Code [facility] WBC Auto #/vol (Bld) 3.4 10*3/uL Invalid Interpretation Code [facility] CBC w/o Diffon 06-25-2018 Erythrocyte distribution width Auto Ratio (RBC) 15.0 % High 10.0-14.4 [facility] Comment on above: Performed By: #### N TPROBNP, CHEM8, CBCDIF, PT, PTT, EDCTNI ####Unless otherwise noted, all testing performed by [address] [phone]: [id number] Director: Ramakrishna Browne M.D. Hematocrit Auto Volume Fraction (Bld) 38.4 % Normal 34.4-44.8 [facility] Comment on above: Performed By: #### N TPROBNP, CHEM8, CBCDIF, PT, PTT, EDCTNI ####Unless otherwise noted, all testing performed by [address] [phone]: [id number] Director: Ramakrishna Browne M.D. Hemoglobin mass conc (Bld) 13.2 g/dL Normal 11.6-15.4 [facility] Comment on above: Performed By: #### N TPROBNP, CHEM8, CBCDIF, PT, PTT, EDCTNI ####Unless otherwise noted, all testing performed by [address] [phone]: [id number] Director: Ramakrishna Browne M.D. MCH Auto Entitic mass (RBC) 29.2 pg Normal 27.9-33.9 [facility] Comment on above: Performed By: #### N TPROBNP, CHEM8, CBCDIF, PT, PTT, EDCTNI ####Unless otherwise noted, all testing performed by [address] [phone]: [id number] Director: Ramakrishna Browne M.D. MCHC Auto mass conc (RBC) 34.2 g/dL Normal 33.1-35.1 [facility] Comment on above: Performed By: #### N TPROBNP, CHEM8, CBCDIF, PT, PTT, EDCTNI ####Unless otherwise noted, all testing performed by [address] [phone]: [id number] Director: Ramakrishna Browne M.D. MCV Auto Entitic volume (RBC) 85.3 fL Normal 82.6-98.9 [facility] Comment on above: Performed By: #### N TPROBNP, CHEM8, CBCDIF, PT, PTT, EDCTNI ####Unless otherwise noted, all testing performed by [address] [phone]: [id number] Director: Ramakrishna Browne M.D. Platelet mean volume Auto Entitic volume (Bld) 9.5 fL Normal 7.0-10.6 [facility] Comment on above: Performed By: #### N TPROBNP, CHEM8, CBCDIF, PT, PTT, EDCTNI ####Unless otherwise noted, all testing performed by [address] [phone]: [id number] Director: Ramakrishna Browne M.D. Platelets Auto #/vol (Bld) 116 K/mcL Low 162-402 [facility] Comment on above: Performed By: #### N TPROBNP, CHEM8, CBCDIF, PT, PTT, EDCTNI ####Unless otherwise noted, all testing performed by [address] [phone]: [id number] Director: Ramakrishna Browne M.D. RBC Auto #/vol (Bld) 4.50 M/mcL Normal 3.7-5.0 [facility] Comment on above: Performed By: #### N TPROBNP, CHEM8, CBCDIF, PT, PTT, EDCTNI ####Unless otherwise noted, all testing performed by [address] [phone]: [id number] Director: Ramakrishna Browne M.D. WBC Auto #/vol (Bld) 3.4 K/mcL Normal 3.4-10.6 [facility] Comment on above: Performed By: #### N TPROBNP, CHEM8, CBCDIF, PT, PTT, EDCTNI ####Unless otherwise noted, all testing performed by [address] [phone]: [id number] Director: Ramakrishna Browne M.D. Hemoglobin A1Con 06-25-2018 Hemoglobin A1c/Hemoglobin.total mass fraction (Bld) 5.0 % Normal 4.1-6.5 [facility] Comment on above: Performed By: #### N TPROBNP, CHEM8, CBCDIF, PT, PTT, EDCTNI ####Unless otherwise noted, all testing performed by [address] [phone]: [id number] Director: Ramakrishna Browne M.D. Hemoglobin A1con 06-25-2018 Hemoglobin A1c/Hemoglobin.total mass fraction (Bld) 5.0 % Invalid Interpretation Code 4.1 - 6.5 % [facility] Lipid Panelon 06-25-2018 Cholesterol in HDL mass conc 56 mg/dL Invalid Interpretation Code 40 - 59 mg/dL [facility] Cholesterol in LDL mass conc 70 mg/dL Invalid Interpretation Code 10 - 150 mg/dL [facility] Cholesterol in VLDL mass conc 14 mg/dL Invalid Interpretation Code 5 - 40 mg/dL [facility] Cholesterol mass conc 140 mg/dL Invalid Interpretation Code 100 - 199 mg/dL [facility] Cholesterol.total/Cho lesterol in HDL mass ratio 2.5 {ratio} Low [facility] Comment on above: Female Coronary Hear t Disease Risk Factor (CHDRF): Average risk= 4.4 1/2 Average risk= 3.3 2 times Average risk= 7.1 Triglyceride mass conc 70 mg/dL Invalid Interpretation Code 25 - 120 mg/dL [facility] Cholesterol in HDL mass conc 56 mg/dL Normal 40-59 [facility] Comment on above: Performed By: #### N TPROBNP, CHEM8, CBCDIF, PT, PTT, EDCTNI ####Unless otherwise noted, all testing performed by [address] [phone]: [id number] Director: Ramakrishna Browne M.D. Cholesterol in LDL mass conc 70 mg/dL Normal 10-150 [facility] Comment on above: Performed By: #### N TPROBNP, CHEM8, CBCDIF, PT, PTT, EDCTNI ####Unless otherwise noted, all testing performed by [address] [phone]: [id number] Director: Ramakrishna Browne M.D. Cholesterol in VLDL mass conc 14 mg/dL Normal 5-40 [facility] Comment on above: Performed By: #### N TPROBNP, CHEM8, CBCDIF, PT, PTT, EDCTNI ####Unless otherwise noted, all testing performed by [address] [phone]: [id number] Director: Ramakrishna Browne M.D. Cholesterol mass conc 140 mg/dL Normal 100-199 [facility] Comment on above: Performed By: #### N TPROBNP, CHEM8, CBCDIF, PT, PTT, EDCTNI ####Unless otherwise noted, all testing performed by [address] [phone]: [id number] Director: Ramakrishna Browne M.D. Cholesterol.total/Cho lesterol in HDL mass ratio 2.5 {ratio} Low 3.2-5.0 [facility] Comment on above: Result Comment: Fema le Coronary Heart Disease Risk Factor (CHDRF):Average risk= 4.41/2 Average risk= 3.32 times Average risk= 7.1 Performed By: #### N TPROBNP, CHEM8, CBCDIF, PT, PTT, EDCTNI ####Unless otherwise noted, all testing performed by [address] [phone]: [id number] Director: Ramakrishna Browne M.D. Triglyceride mass conc 70 mg/dL Normal 25-120 [facility] Comment on above: Performed By: #### N TPROBNP, CHEM8, CBCDIF, PT, PTT, EDCTNI ####Unless otherwise noted, all testing performed by [address] [phone]: [id number] Director: Ramakrishna Browne M.D. Otheron 06-25-2018 Interpretation and review of laboratory results Abnormal Invalid Interpretation Code [facility] TSHon 06-25-2018 Thyrotropin Qn 1.58 m[IU]/L Invalid Interpretation Code [facility] Comment on above: Samples from patient s routinely receiving high dose biotin therapy (100-300 mg/day) may show falsely decreased results. Please correlate clinically. Thyrotropin Qn 1.58 uIU/mL Normal 0.320-5.000 [facility] [place] Comment on above: Result Comment: Samp les from patients routinely receiving high dose biotin therapy(100-300 mg/day) may show falsely decreased results. Please correlateclinically. Performed By: #### N TPROBNP, CHEM8, CBCDIF, PT, PTT, EDCTNI ####Unless otherwise noted, all testing performed by [address] [phone]: [id number] Director: Ramakrishna Browne M.D. Vitamin B12 and Folateson Cobalamin (Vitamin B12) mass conc 278 pg/mL Invalid Interpretation Code 193 - 986 pg/mL [facility] Folate >20.0 High 3.1 - 17.5 ng/mL [facility] Interpretation and review of laboratory results Abnormal Invalid Interpretation Code [facility] Cobalamin (Vitamin B12) mass conc 278 pg/mL Normal 193-986 [facility] Comment on above: Performed By: #### N TPROBNP, CHEM8, CBCDIF, PT, PTT, EDCTNI ####Unless otherwise noted, all testing performed by [address] [phone]: [id number] Director: Ramakrishna Browne M.D. Folate > 20.0 High 3.1-17.5 [facility] Comment on above: Performed By: #### N TPROBNP, CHEM8, CBCDIF, PT, PTT, EDCTNI ####Unless otherwise noted, all testing performed by [address] [phone]: [id number] Director: Ramakrishna Browne M.D. Vitamin D, Total, 25-OHon Vitamin D, 25-Hydroxy, Total 32 ng/mL Invalid Interpretation Code 30 - 100 ng/mL [facility] Comment on above: Please note that Flu orescein which is used in angiography has been shown to falsely elevate the results of Vitamin D with our current assay. Evidence suggests that patients undergoing fluorescein dye angiography can retain small amounts of fluorescein in the body for up to 48 to 72 hours post-treatment. In the cases of patients with renal insufficiency, retention could be much longer. Samples should be resubmitted post fluorescein clearance to ensure there is no interference with the Vitamin D test result. Vitamin D Status Range: Deficiency < 20 ng/mL Insufficiency 20-30 ng/mL Sufficiency 30-100 ng/mL Toxicity > 100 ng/mL Basic Metabolic Panelon Calcium mass conc 8.8 mg/dL Normal 8.4-10.2 [facility] Comment on above: Performed By: #### N TPROBNP, CHEM8, CBCDIF, PT, PTT, EDCTNI ####Unless otherwise noted, all testing performed by [address] [phone]: [id number] Director: Ramakrishna Bronwe M.D. Chloride molar conc 106 mmol/L Normal 98-108 [facility] Comment on above: Performed By: #### N TPROBNP, CHEM8, CBCDIF, PT, PTT, EDCTNI ####Unless otherwise noted, all testing performed by [address] [phone]: [id number] Director: Ramakrishna Browne M.D. CO2 molar conc 24 mmol/L Normal 21-32 [facility] Comment on above: Performed By: #### N TPROBNP, CHEM8, CBCDIF, PT, PTT, EDCTNI ####Unless otherwise noted, all testing performed by [address] [phone]: [id number] Director: Ramakrishna Browne M.D. Creatinine mass conc 0.82 mg/dL Normal 0.40-1.10 [facility] Comment on above: Performed By: #### N TPROBNP, CHEM8, CBCDIF, PT, PTT, EDCTNI ####Unless otherwise noted, all testing performed by [address] [phone]: [id number] Director: Ramakrishna Browne M.D. GFR/1.73 sq M predicted among blacks MDRD vol rate/area (S/P/Bld) mL/min/{1.73_m2} Normal [facility] Comment on above: Result Comment: Afri can Tanzanian GFR Calc Performed By: #### N TPROBNP, CHEM8, CBCDIF, PT, PTT, EDCTNI ####Unless otherwise noted, all testing performed by [address] [phone]: [id number] Director: Ramakrishna Browne M.D. GFR/1.73 sq M predicted among non-blacks MDRD vol rate/area (S/P/Bld) mL/min/{1.73_m2} Normal [facility] Comment on above: Result Comment: Non- GFR CalceGFR is an estimated Glomerular Filtration Rate based on the valueof the patient's serum creatinine. In outpatients, eGFR should be usedas a helpful tool in screening for CKD. In inpatients or patients withacute renal failure, eGFR represents the GFR at the moment of the drawand should be used with caution. Performed By: #### N TPROBNP, CHEM8, CBCDIF, PT, PTT, EDCTNI ####Unless otherwise noted, all testing performed by [address] [phone]: [id number] Director: Ramakrishna Browne M.D. Glucose mass conc 88 mg/dL Normal 70-99 [facility] Comment on above: Result Comment: This test result might be falsely depressed or falsely elevated onsamples drawn from patients taking Sulfasalazine and Sulfapyridine.Venipuncture should occur prior to taking either of these drugs. Performed By: #### N TPROBNP, CHEM8, CBCDIF, PT, PTT, EDCTNI ####Unless otherwise noted, all testing performed by [address] [phone]: [id number] Director: Ramakrishna Browne M.D. Potassium molar conc 3.2 mmol/L Low 3.5-5.1 [facility] Comment on above: Performed By: #### N TPROBNP, CHEM8, CBCDIF, PT, PTT, EDCTNI ####Unless otherwise noted, all testing performed by [address] [phone]: [id number] Director: Ramakrishna Browne M.D. Sodium molar conc 140 mmol/L Normal 135-145 [facility] Comment on above: Performed By: #### N TPROBNP, CHEM8, CBCDIF, PT, PTT, EDCTNI ####Unless otherwise noted, all testing performed by [address] [phone]: [id number] Director: Ramakrishna Browne M.D. Urea nitrogen mass conc 23 mg/dL Normal 8-25 [facility] Comment on above: Performed By: #### N TPROBNP, CHEM8, CBCDIF, PT, PTT, EDCTNI ####Unless otherwise noted, all testing performed by [address] [phone]: [id number] Director: Ramakrishna Browne M.D. CBC with Diffon 04-26-2018 Basophils Auto #/vol (Bld) 0.0 K/mcL Normal 0-0.2 [facility] Comment on above: Performed By: #### N TPROBNP, CHEM8, CBCDIF, PT, PTT, EDCTNI ####Unless otherwise noted, all testing performed by [address] [phone]: [id number] Director: Ramakrishna Browne M.D. Basophils/100 WBC Auto (Bld) 0.4 % Normal [facility] Comment on above: Performed By: #### N TPROBNP, CHEM8, CBCDIF, PT, PTT, EDCTNI ####Unless otherwise noted, all testing performed by [phone]: [id number] Director: Ramakrishna Browne M.D. Eosinophils Auto #/vol (Bld) 0.2 K/mcL Normal 0-0.5 [facility] Comment on above: Performed By: #### N TPROBNP, CHEM8, CBCDIF, PT, PTT, EDCTNI ####Unless otherwise noted, all testing performed by [place] [phone]: [id number] Director: Ramakrishna Browne M.D. Eosinophils/100 WBC Auto (Bld) 3.8 % Normal [facility] Comment on above: Performed By: #### N TPROBNP, CHEM8, CBCDIF, PT, PTT, EDCTNI ####Unless otherwise noted, all testing performed by [place] [phone]: [id number] Director: Ramakrishna Browne M.D. Erythrocyte distribution width Auto Ratio (RBC) 14.4 % Normal 10.0-14.4 [facility] Comment on above: Performed By: #### N TPROBNP, CHEM8, CBCDIF, PT, PTT, EDCTNI ####Unless otherwise noted, all testing performed by [place] [phone]: [id number] Director: Ramakrishna Browne M.D. Hematocrit Auto Volume Fraction (Bld) 37.3 % Normal 34.4-44.8 [facility] Comment on above: Performed By: #### N TPROBNP, CHEM8, CBCDIF, PT, PTT, EDCTNI ####Unless otherwise noted, all testing performed by [address] [phone]: [id number] Director: Ramakrishna Browne M.D. Hemoglobin mass conc (Bld) 12.7 g/dL Normal 11.6-15.4 [facility] Comment on above: Performed By: #### N TPROBNP, CHEM8, CBCDIF, PT, PTT, EDCTNI ####Unless otherwise noted, all testing performed by [address] [phone]: [id number] Director: Ramakrishna Browne M.D. Lymphocytes Auto #/vol (Bld) 1.2 K/mcL Normal 1.0-3.7 [facility] Comment on above: Performed By: #### N TPROBNP, CHEM8, CBCDIF, PT, PTT, EDCTNI ####Unless otherwise noted, all testing performed by [address] [phone]: [id number] Director: Ramakrishna Browne M.D. Lymphocytes/100 WBC Auto (Bld) 25.0 % Normal [facility] Comment on above: Performed By: #### N TPROBNP, CHEM8, CBCDIF, PT, PTT, EDCTNI ####Unless otherwise noted, all testing performed by [address] [phone]: [id number] Director: Ramakrishna Browne M.D. MCH Auto Entitic mass (RBC) 29.4 pg Normal 27.9-33.9 [facility] Comment on above: Performed By: #### N TPROBNP, CHEM8, CBCDIF, PT, PTT, EDCTNI ####Unless otherwise noted, all testing performed by [address] [phone]: [id number] Director: Ramakrishna Browne M.D. MCHC Auto mass conc (RBC) 34.0 g/dL Normal 33.1-35.1 [facility] Comment on above: Performed By: #### N TPROBNP, CHEM8, CBCDIF, PT, PTT, EDCTNI ####Unless otherwise noted, all testing performed by [address] [phone]: [id number] Director: Ramakrishna Browne M.D. MCV Auto Entitic volume (RBC) 86.5 fL Normal 82.6-98.9 [facility] Comment on above: Performed By: #### N TPROBNP, CHEM8, CBCDIF, PT, PTT, EDCTNI ####Unless otherwise noted, all testing performed by [address] [phone]: [id number] Director: Ramakrishna Browne M.D. Monocytes Auto #/vol (Bld) 0.3 K/mcL Normal 0.1-0.6 [facility] Comment on above: Performed By: #### N TPROBNP, CHEM8, CBCDIF, PT, PTT, EDCTNI ####Unless otherwise noted, all testing performed by [address] [phone]: [id number] Director: Ramakrishna Browne M.D. Monocytes/100 WBC Auto (Bld) 6.8 % Normal [facility] Comment on above: Performed By: #### N TPROBNP, CHEM8, CBCDIF, PT, PTT, EDCTNI ####Unless otherwise noted, all testing performed by [address] [phone]: [id number] Director: Ramakrishna Browne M.D. Neutrophils Auto #/vol (Bld) 3.2 K/mcL Normal 1.2-6.9 [facility] Comment on above: Performed By: #### N TPROBNP, CHEM8, CBCDIF, PT, PTT, EDCTNI ####Unless otherwise noted, all testing performed by [phone]: [id number] Director: Ramakrishna Browne M.D. Platelet mean volume Auto Entitic volume (Bld) 9.6 fL Normal 7.0-10.6 [facility] Comment on above: Performed By: #### N TPROBNP, CHEM8, CBCDIF, PT, PTT, EDCTNI ####Unless otherwise noted, all testing performed by [address] [phone]: [id number] Director: Ramakrishna Browne M.D. Platelets Auto #/vol (Bld) 211 K/mcL Normal 162-402 [facility] Comment on above: Performed By: #### N TPROBNP, CHEM8, CBCDIF, PT, PTT, EDCTNI ####Unless otherwise noted, all testing performed by [address] [phone]: [id number] Director: Ramakrishna Browne M.D. RBC Auto #/vol (Bld) 4.31 M/mcL Normal 3.7-5.0 [facility] Comment on above: Performed By: #### N TPROBNP, CHEM8, CBCDIF, PT, PTT, EDCTNI ####Unless otherwise noted, all testing performed by [address] [phone]: [id number] Director: Ramakrishna Browne M.D. Segmented Neut % 64.0 % Normal [facility] Comment on above: Performed By: #### N TPROBNP, CHEM8, CBCDIF, PT, PTT, EDCTNI ####Unless otherwise noted, all testing performed by [address] [phone]: [id number] Director: Ramakrishna Browne M.D. WBC Auto #/vol (Bld) 5.0 K/mcL Normal 3.4-10.6 [facility] Comment on above: Performed By: #### N TPROBNP, CHEM8, CBCDIF, PT, PTT, EDCTNI ####Unless otherwise noted, all testing performed by [address] [phone]: [id number] Director: Ramakrishna Browne M.D. CHEST PA AND LATERALon 04-26 CHEST PA AND LATERAL Final ReportAccession No: [id number] Performed: Apr 26 2018 7:36PMExamination: CHEST PA AND LATERALEXAMINATION: X-ray chestHISTORY: Shortness of breath and chest pressure.COMPARISON: 06/26/2016.TECHNIQUE: 2 views.FINDINGS:The cardiac silhouette is top normal in size. There is no lungconsolidation orpleural effusion. No pneumothorax is seen. There is no acute osseousabnormality. Cervical hardware is noted. There are also upper abdominalsurgical clips.IMPRESSION:No active lung disease.Interpreting Physician: IKER BARBER M.D.Trans: n/a : cc: Normal [facility] CT ABDO,PELVIS W/O CONTRASTo n 04-26-2018 CT ABDO,PELVIS W/O CONTRAST Final ReportAccession No: [id number] Performed: Apr 26 2018 9:03PMExamination: CT ABDO,PELVIS W/O CONTRASTEXAM: CT abdomen and pelvis without intravenous contrastCLINICAL STATEMENT: Abdominal pain. History of recurrent hernia surgery.COMPARISON: CT abdomen and pelvis 10/08/2016.TECHNIQUE: CT examination of the abdomen and pelvis without IV contrast.Coronal and sagittal reformations were performed.Dose reduction techniques were achieved by using automated exposurecontroland/or adjustment of mA and/or kV according to patient size and/or use ofiterative reconstruction technique.FINDINGS:Th e imaged heart is normal in size with coronary artery calcification.There isbibasilar pulmonary atelectasis.The liver demonstrates an abnormal nodular contour and the gallbladder isabsent. The spleen is enlarged with a maximum dimension of 14.5 cm. Thenoncontrast pancreas is unremarkable.No adrenal mass is seen. Vague right renal stones are present. There is nohydronephrosis or hydroureter on either side. The urinary bladder isdecompressed.The uterus is absent. The ovaries are not visualized and may be absent aswell.There is a mild to moderate colonic stool burden. There has been previousgastric bypass surgery. There is no bowel obstruction. The appendixappearsabsent .There is no pneumoperitoneum or ascites. There is no abdominal aorticaneurysm.There is no acute osseous abnormality. There are degenerative changes ofthespine and pelvis. There is an interbody fusion device at L4-L5. There arepostsurgical changes of the ventral abdomen with no recurrent hernia seen.IMPRESSION:1. Nodular liver contour with splenomegaly, question hepatic cirrhosis andportal hypertension.2. Prior cholecystectomy.3. Prior gastric bypass surgery. No bowel obstruction.4. Nonobstructing nephrolithiasis.5. Previous ventral abdominal wall surgery/surgeries with no recurrentherniaseen.I nterpreting Physician: IKER BARBER M.D.Trans: n/a : cc: Normal [facility] Culture, Urineon 04-26-2018 Culture, Urine Test Name: Culture, Urine Culture Status: Final Culture Report: No significant growth. Micro Source: Urine Normal [facility] Comment on above: Performed By: #### U RCUL ####Unless otherwise noted, all testing performed by [address] [phone]: [id number] Director: Ramakrishna Browne M.D. ED Cardiac Troponin-Ion Troponin I.cardiac mass conc ng/mL Normal < 45 [facility] Comment on above: Result Comment: Elev ation of troponin indicates some degree of myocardial necrosis butunless there is a significant rise and/or fall (if elevated) identified,it unlikely that an acute event has taken placeSamples from patients routinely receiving high dose biotin therapy(100-300 mg/day) may show falsely decreased results. Please correlateclinically. Performed By: #### N TPROBNP, CHEM8, CBCDIF, PT, PTT, EDCTNI ####Unless otherwise noted, all testing performed by [address] [phone]: [id number] Director: Ramakrishna Browne M.D. NT-Pro BNP, Serumon 04-26-20 18 Natriuretic peptide B mass conc (Bld) 256 pg/mL High 0-125 [facility] Comment on above: Performed By: #### N TPROBNP, CHEM8, CBCDIF, PT, PTT, EDCTNI ####Unless otherwise noted, all testing performed by [address] [phone]: [id number] Director: Ramakrishna Browne M.D. Partial Thromboplastin Timeo n 04-26-2018 aPTT Coag time (Bld) 27 s Normal 23.0-34.0 [facility] Comment on above: Result Comment: Iris hollins therapeutic range for PTT is 68-104 sec. Performed By: #### N TPROBNP, CHEM8, CBCDIF, PT, PTT, EDCTNI ####Unless otherwise noted, all testing performed by [address] [phone]: [id number] Director: Ramakrishna Browne M.D. Protimeon 04-26-2018 INR Coag RelTime (PPP) 1.05 {INR} Normal [facility] Comment on above: Result Comment: The [place] [employer] recommended therapeutic rangefor Warfarin (Coumadin) therapy goals:PROPHYLAXIS/TREATMENT of:INRVenous Thrombosis, Pulmonary Embolism2.0-3.0Prevention of VTE (Orthopedic Surgery)2.0-3.0Atrial Fibrillation2.0-3.0Myocardial Infarction2.0-3.0Mechanical Prosthetic Heart Valves (Aortic position)2.0-3.0Mechanical Prosthetic Heart Valves (Mitral Position)2.5-3.5American College of Chest Physicians evidence-based clinical practiceguidelines. CHEST. 2012 (9th ed) Performed By: #### N TPROBNP, CHEM8, CBCDIF, PT, PTT, EDCTNI ####Unless otherwise noted, all testing performed by [address] [phone]: [id number] Director: Ramakrishna Browne M.D. Prothrombin time (PT) Coag time (PPP) 13.4 s Normal 11.8-14.3 [facility] Comment on above: Performed By: #### N TPROBNP, CHEM8, CBCDIF, PT, PTT, EDCTNI ####Unless otherwise noted, all testing performed by [address] [phone]: [id number] Director: Ramakrishna Browne M.D. Urinalysis, Routineon 2017 Bacteria LM.HPF #/area (Urine sed) Rare Normal NS;RARE [facility] Comment on above: Performed By: #### U A ####Unless otherwise noted, all testing performed by [address] [phone]: [id number] Director: Ramakrishna Browne M.D. Bilirubin,Urine Negative Normal NEG;NEGATIVE [facility] Comment on above: Performed By: #### U A ####Unless otherwise noted, all testing performed by [address] [phone]: [id number] Director: Ramakrishna Browne M.D. Blood,Urine Negative Normal NEG;NEGATIVE [facility] Comment on above: Performed By: #### U A ####Unless otherwise noted, all testing performed by [address] [phone]: [id number] Director: Ramakrishna Browne M.D. Character Clear Normal [facility] Comment on above: Performed By: #### U A ####Unless otherwise noted, all testing performed by [address] [phone]: [id number] Director: Ramakrishna Browne M.D. Color Nom (U) Yellow Normal [facility] Comment on above: Performed By: #### U A ####Unless otherwise noted, all testing performed by [address], [place] [phone]: [id number] Director: Ramakrishna Browne M.D. Glucose Ql (U) Negative Normal NEG;NEGATIVE [facility] Comment on above: Performed By: #### U A ####Unless otherwise noted, all testing performed by [address] [phone]: [id number] Director: Ramakrishna Browne M.D. Ketone,Urine 20 mg/dL High <10 [facility] Comment on above: Performed By: #### U A ####Unless otherwise noted, all testing performed by [address] [phone]: [id number] Director: Ramakrishna Browne M.D. Leuk.Esterase,Urine Small Abnormal Negative [facility] Comment on above: Performed By: #### U A ####Unless otherwise noted, all testing performed by [address] [phone]: [id number] Director: Ramakrishna Browne M.D. Nitrite,Urine Negative Normal NEG;NEGATIVE [facility] Comment on above: Performed By: #### U A ####Unless otherwise noted, all testing performed by [address] [phone]: [id number] Director: Ramakrishna Browne M.D. pH Test strip (U) 5.0 [pH] Normal 4.5-8.0 [facility] Comment on above: Performed By: #### U A ####Unless otherwise noted, all testing performed by [address] [phone]: [id number] Director: Ramakrishna Browne M.D. Protein,Urine Negative Normal NEG;NEGATIVE [facility] Comment on above: Performed By: #### U A ####Unless otherwise noted, all testing performed by [address] [phone]: [id number] Director: Ramakrishna Browne M.D. RBC LM.HPF #/area (Urine sed) /[HPF] Normal 0-5 [facility] Comment on above: Performed By: #### U A ####Unless otherwise noted, all testing performed by [address] [phone]: [id number] Director: Ramakrishna Browne M.D. Specific [place],Urine 1.020 Normal 1.003-1.029 [facility] Comment on above: Performed By: #### U A ####Unless otherwise noted, all testing performed by [address] [phone]: [id number] Director: Ramakrishna Browne M.D. Squamous Epithelial 1 /HPF Normal 0-40 [facility] Comment on above: Performed By: #### U A ####Unless otherwise noted, all testing performed by [address] [phone]: [id number] Director: Ramakrishna Browne M.D. Trans. Epithelial < 1 Normal 0-3 [facility] Comment on above: Performed By: #### U A ####Unless otherwise noted, all testing performed by [address] [phone]: [id number] Director: Ramakrishna Browne M.D. Urobilinogen,Urine < 2.0 Normal <2 [facility] Comment on above: Performed By: #### U A ####Unless otherwise noted, all testing performed by [address] [phone]: [id number] Director: Ramakrishna Browne M.D. WBC,Urine 4 /HPF Normal 0-5 [facility] Comment on above: Performed By: #### U A ####Unless otherwise noted, all testing performed by [address] [phone]: [id number] Director: Ramakrishna Browne M.D. Vital Signs Date Time Vital Sign Value Performing Clinician Facility 02-26-2024 12:10-0400 Body height 165.1 cm [place] DO Work Phone: [facility] 02-26-2024 12:10-0400 Body mass index (BMI) [Ratio] 44.26 kg/m2 [employer] [facility] Gould DO Work Phone: [facility] 02-26-2024 12:10-0400 Body weight 120.66 kg [employer] [facility] Gould DO Work Phone: [facility] 02-26-2024 12:10-0400 Diastolic blood pressure 80 mm[Hg] [employer] Gould DO Work Phone: [facility] 02-26-2024 12:10-0400 Heart rate 83 /min [place] DO Work Phone: [facility] 02-26-2024 12:10-0400 SaO2% (BldA) [Mass fraction] 95 % Eduardo Ahmadi DO Work Phone: [facility] 02-26-2024 12:10-0400 Systolic blood pressure 126 mm[Hg] Eduardo Ahmadi DO Work Phone: [facility] 01-27-2024 14:04-0400 Body mass index (BMI) [Ratio] 43.27 kg/m2 Jaime Carter APRN-CONTRACTS DIRECTOR Work Phone: [employer] 01-27-2024 14:04-0400 Body temperature 98.4 [degF] Jaime Carter APRN-CONTRACTS DIRECTOR Work Phone: [employer] 01-27-2024 14:04-0400 Body weight 117.94 kg Jaime Carter APRN-CONTRACTS DIRECTOR Work Phone: [employer] 01-27-2024 14:04-0400 Diastolic blood pressure 74 mm[Hg] Jaimeasher Carter APRN-CONTRACTS DIRECTOR Work Phone: [employer] 01-27-2024 14:04-0400 Heart rate 54 /min Jaimeasher Carter APRN-CONTRACTS DIRECTOR Work Phone: [employer] 01-27-2024 14:04-0400 Respiratory rate 16 /min Jaime Carter APRN-CONTRACTS DIRECTOR Work Phone: [employer] 01-27-2024 14:04-0400 SaO2% (BldA) [Mass fraction] 93 % Jaime Carter APRN-CONTRACTS DIRECTOR Work Phone: [employer] 01-27-2024 14:04-0400 Systolic blood pressure 136 mm[Hg] Jaime Carter EXAMINATION SCORER-CONTRACTS DIRECTOR Work Phone: [employer] 12-19-2023 20:08-0400 Diastolic blood pressure 93 mm[Hg] Leticia Sylvester MD Work Phone: [employer] 12-19-2023 20:08-0400 Heart rate 70 /min Leticia Sylvester MD Work Phone: [employer] 12-19-2023 20:08-0400 Respiratory rate 18 /min Leticia Sylvester MD Work Phone: [employer] [facility] 12-19-2023 20:08-0400 SaO2% (BldA) [Mass fraction] 100 % Leticia Sylvester MD Work Phone: [employer] [facility] 12-19-2023 20:08-0400 Systolic blood pressure 159 mm[Hg] Leticia Sylvester MD Work Phone: [employer] [facility] 12-19-2023 15:39-0400 Body height 165.1 cm Leticia Sylvester MD Work Phone: [employer] [facility] 12-19-2023 15:39-0400 Body mass index (BMI) [Ratio] 44.1 kg/m2 Leticia Sylvester MD Work Phone: [employer] [facility] 12-19-2023 15:39-0400 Body weight 120.2 kg Leticia Sylvester MD Work Phone: [employer] [facility] 12-19-2023 15:38-0400 Body temperature 97.59 [degF] Leticia Sylvester MD Work Phone: [employer] [facility] 06-30-2023 13:57-0400 Body height 165.1 cm Ana Canales CNP Work Phone: [facility] 06-30-2023 13:57-0400 Body mass index (BMI) [Ratio] 46.59 kg/m2 Ana Canales CNP Work Phone: [facility] 06-30-2023 13:57-0400 Body weight 127.01 kg Ana Canales CNP Work Phone: [facility] 05-26-2023 15:00-0400 Body temperature 98.29 [degF] Jose Eduardo Dumont MD [facility] 05-26-2023 15:00-0400 Diastolic blood pressure 62 mm[Hg] Jose Eduardo Dumont MD Work Phone: [facility] 05-26-2023 15:00-0400 Heart rate 80 /min Jose Eduardo Dumont MD Work Phone: [facility] 05-26-2023 15:00-0400 Respiratory rate 19 /min Jose Eduardo Dumont MD Work Phone: [facility] 05-26-2023 15:00-0400 SaO2% (BldA) [Mass fraction] 94 % Jose Eduardo Dumont MD Work Phone: [facility] 05-26-2023 15:00-0400 Systolic blood pressure 110 mm[Hg] Jose Eduardo Dumont MD Work Phone: [facility] 05-26-2023 04:49-0400 Body mass index (BMI) [Ratio] 47.01 kg/m2 Jose Eduardo Dumont MD Work Phone: [facility] 05-26-2023 04:49-0400 Body weight 128.14 kg Jose Eduardo Dumont MD Work Phone: [facility] 05-22-2023 20:48-0400 Body height 165.1 cm Jose Eduardo Dumont MD Work Phone: [facility] 04-17-2023 14:21-0400 Diastolic blood pressure 83 mm[Hg] Ishaan Raines MD Work Phone: [facility] 04-17-2023 14:21-0400 Heart rate 57 /min Ishaan Raines MD Work Phone: [facility] 04-17-2023 14:21-0400 Systolic blood pressure 211 mm[Hg] Ishaan Raines MD Work Phone: [facility] 04-17-2023 14:05-0400 Body height 165.1 cm Ishaan Raines MD Work Phone: [facility] 04-17-2023 14:05-0400 Body mass index (BMI) [Ratio] 46.76 kg/m2 Ishaan Raines MD Work Phone: [facility] 04-17-2023 14:05-0400 Body weight 127.46 kg Ishaan Raines MD Work Phone: [facility] 02-16-2023 19:25-0400 Diastolic blood pressure 74 mm[Hg] Leticia Sylvester MD Work Phone: [facility] 02-16-2023 19:25-0400 Heart rate 61 /min Leticia Sylvester MD Work Phone: [facility] 02-16-2023 19:25-0400 Respiratory rate 18 /min Leticia Sylvester MD Work Phone: [facility] 02-16-2023 19:25-0400 SaO2% (BldA) [Mass fraction] 94 % Leticia Sylvester MD Work Phone: [facility] 02-16-2023 19:25-0400 Systolic blood pressure 134 mm[Hg] Leticia Sylvester MD Work Phone: [facility] 02-16-2023 15:59-0400 Body height 165.1 cm Leticia Sylvester MD Work Phone: [facility] 02-16-2023 15:58-0400 Body temperature 98.4 [degF] Leticia Sylvester MD Work Phone: [facility] 10-15-2022 12:36-0500 Body height 165.1 cm Av Delgado MD Work Phone: [facility] 10-15-2022 12:36-0500 Body mass index (BMI) [Ratio] 49.59 kg/m2 Av Delgado MD Work Phone: [facility] 10-15-2022 12:36-0500 Body weight 135.17 kg Av Delgado MD Work Phone: [facility] 10-15-2022 12:36-0500 Respiratory rate 18 /min Av Delgado MD Work Phone: [facility] 10-01-2022 12:47-0500 Body height 165.1 cm Av Delgado MD Work Phone: [facility] 10-01-2022 12:47-0500 Body mass index (BMI) [Ratio] 48.09 kg/m2 Av Delgado MD Work Phone: [facility] 10-01-2022 12:47-0500 Body weight 131.09 kg Av Delgado MD Work Phone: [facility] 10-01-2022 12:47-0500 Respiratory rate 18 /min Av Delgado MD Work Phone: [facility] 10-01-2022 12:47-0500 SaO2% (BldA) [Mass fraction] 98 % Av Delgado MD Work Phone: [facility] 09-01-2022 20:43-0500 Diastolic blood pressure 88 mm[Hg] Bao Hsieh MD Work Phone: [facility] 09-01-2022 20:43-0500 Heart rate 68 /min Bao Hsieh MD Work Phone: [facility] 09-01-2022 20:43-0500 Respiratory rate 18 /min Bao Hsieh MD Work Phone: [facility] 09-01-2022 20:43-0500 SaO2% (BldA) [Mass fraction] 94 % Bao Hsieh MD Work Phone: [facility] 09-01-2022 20:43-0500 Systolic blood pressure 147 mm[Hg] Bao Hsieh MD Work Phone: [facility] 09-01-2022 16:02-0500 Body mass index (BMI) [Ratio] 48.09 kg/m2 Bao Hsieh MD Work Phone: [facility] 09-01-2022 16:02-0500 Body weight 131.09 kg Bao Hsieh MD Work Phone: [facility] 09-01-2022 16:01-0500 Body temperature 98.01 [degF] Bao Hsieh MD Work Phone: [facility] 08-11-2022 13:00-0500 Diastolic blood pressure 75 mm[Hg] Jennifer Khoury MD Work Phone: [facility] 08-11-2022 13:00-0500 Heart rate 78 /min Jennifer Khoury MD Work Phone: [facility] 08-11-2022 13:00-0500 Respiratory rate 16 /min Jennifer Khoury MD Work Phone: [facility] 08-11-2022 13:00-0500 SaO2% (BldA) [Mass fraction] 97 % Jennifer Khoury MD Work Phone: [facility] 08-11-2022 13:00-0500 Systolic blood pressure 141 mm[Hg] Jennifer Khoury MD Work Phone: [facility] 08-11-2022 10:40-0500 Body temperature 98.2 [degF] Jennifer Khoury MD Work Phone: [facility] 07-28-2022 18:11-0500 Heart rate 68 /min [facility] 07-28-2022 13:44-0500 Body height 165.1 cm [facility] 07-28-2022 13:44-0500 Body mass index (BMI) [Ratio] 47.26 kg/m2 [facility] 07-28-2022 13:44-0500 Body temperature 98.71 [degF] [facility] An[facility] 07-28-2022 13:44-0500 Body weight 128.82 kg [facility] 07-28-2022 13:44-0500 Diastolic blood pressure 84 mm[Hg] [facility] 07-28-2022 13:44-0500 Heart rate 75 /min [facility] 07-28-2022 13:44-0500 Respiratory rate 15 /min [facility] 07-28-2022 13:44-0500 SaO2% (BldA) [Mass fraction] 95 % [facility] 07-28-2022 13:44-0500 Systolic blood pressure 146 mm[Hg] [facility] An[facility] 04-23-2022 13:50-0400 Body height 165.1 cm Eusebia Jones EXAMINATION SCORER-CONTRACTS DIRECTOR Work Phone: [facility] 04-23-2022 13:50-0400 Body mass index (BMI) [Ratio] 45.43 kg/m2 Eusebia Jones EXAMINATION SCORER-CONTRACTS DIRECTOR Work Phone: [facility] 04-23-2022 13:50-0400 Body temperature 99.39 [degF] Eusebia Jones EXAMINATION SCORER-CONTRACTS DIRECTOR Work Phone: [facility] 04-23-2022 13:50-0400 Body weight 123.83 kg Eusebia Jones EXAMINATION SCORER-CONTRACTS DIRECTOR Work Phone: [facility] 04-23-2022 13:50-0400 Diastolic blood pressure 81 mm[Hg] Eusebia Jones EXAMINATION SCORER-CONTRACTS DIRECTOR Work Phone: [facility] 04-23-2022 13:50-0400 Heart rate 66 /min Eusebia Jones EXAMINATION SCORER-CONTRACTS DIRECTOR Work Phone: [facility] 04-23-2022 13:50-0400 Respiratory rate 16 /min Eusebia Jones EXAMINATION SCORER-CONTRACTS DIRECTOR Work Phone: [facility] 04-23-2022 13:50-0400 Systolic blood pressure 138 mm[Hg] Eusebia Jones EXAMINATION SCORER-CONTRACTS DIRECTOR Work Phone: [facility] 04-23-2022 11:10-0400 Body height 165.1 cm Jaime Carter EXAMINATION SCORER-CONTRACTS DIRECTOR Work Phone: [facility] 04-23-2022 11:10-0400 Body mass index (BMI) [Ratio] 45.43 kg/m2 Jaimeasher Carter EXAMINATION SCORER-CONTRACTS DIRECTOR Work Phone: [facility] 04-23-2022 11:10-0400 Body temperature 99.39 [degF] Jaime Carter EXAMINATION SCORER-CONTRACTS DIRECTOR Work Phone: [employer] 04-23-2022 11:10-0400 Body weight 123.83 kg Jaime Carter EXAMINATION SCORER-CONTRACTS DIRECTOR Work Phone: [employer] 04-23-2022 11:10-0400 Diastolic blood pressure 81 mm[Hg] Jaime Carter EXAMINATION SCORER-CONTRACTS DIRECTOR Work Phone: [employer] 04-23-2022 11:10-0400 Heart rate 66 /min Jaime Carter EXAMINATION SCORER-CONTRACTS DIRECTOR Work Phone: [employer] 04-23-2022 11:10-0400 Respiratory rate 16 /min Jaime Carter EXAMINATION SCORER-CONTRACTS DIRECTOR Work Phone: [employer] 04-23-2022 11:10-0400 Systolic blood pressure 138 mm[Hg] Jaime Carter EXAMINATION SCORER-CONTRACTS DIRECTOR [facility] 01-31-2022 08:41-0400 Body temperature 98.49 [degF] Av Bertrand MD Work Phone: [facility] 01-31-2022 08:41-0400 Diastolic blood pressure 73 mm[Hg] Av Bertrand MD Work Phone: [facility] [employer] [facility] 01-31-2022 08:41-0400 Heart rate 73 /min Av Bertrand MD Work Phone: [employer] [facility] 01-31-2022 08:41-0400 Respiratory rate 17 /min Av Bertrand MD Work Phone: [facility] 01-31-2022 08:41-0400 SaO2% (BldA) [Mass fraction] 92 % Av Bertrand MD [facility] 01-31-2022 08:41-0400 Systolic blood pressure 137 mm[Hg] Av Bertrand MD Work Phone: [facility] 01-30-2022 04:56-0400 Body mass index (BMI) [Ratio] 48.11 kg/m2 Av Bertrand MD Work Phone: [facility] 01-30-2022 04:56-0400 Body weight 131.13 kg Av Bertrand MD Work Phone: [facility] 01-27-2022 22:00-0400 Body height 165.1 cm Av Bertrand MD Work Phone: [facility] 12-17-2020 15:36-0400 Body Temperature 97.39 [degF] [facility] 15:36-0400 BP Diastolic 84 mm[Hg] [facility] 12-17-2020 15:36-0400 BP Systolic 116 mm[Hg] [facility] 12-17-2020 15:36-0400 Pulse (Heart Rate) 70 /min [facility] 12-17-2020 15:36-0400 Pulse Oximetry 94 % [facility] 12-11-2020 15:05-0400 Body Temperature 97.9 [degF] [facility] 12-11-2020 15:05-0400 BP Diastolic 91 mm[Hg] [facility] 12-11-2020 15:05-0400 BP Systolic 146 mm[Hg] [facility] 12-11-2020 15:05-0400 Pulse (Heart Rate) 66 /min [facility] 12-11-2020 15:05-0400 Pulse Oximetry 95 % [facility] 12-11-2020 15:05-0400 Respiratory Rate 17 /min [facility] 12-06-2020 11:25-0400 Body Temperature 96.8 [degF] [facility] 12-06-2020 11:25-0400 BP Diastolic 87 mm[Hg] [facility] 12-06-2020 11:25-0400 BP Systolic 104 mm[Hg] [facility] 12-06-2020 11:25-0400 Pulse (Heart Rate) 68 /min [facility] 12-06-2020 11:25-0400 Pulse Oximetry 95 % [facility] 12-06-2020 11:25-0400 Respiratory Rate 16 /min [facility] 12-05-2020 15:52-0400 Body Temperature 97.5 [degF] Valarie Blackmon [facility] 12-05-2020 15:52-0400 BP Diastolic 74 mm[Hg] Valarie Blackmon [facility] 12-05-2020 15:52-0400 BP Systolic 141 mm[Hg] Valarie Blackmon [facility] 12-05-2020 15:52-0400 Pulse (Heart Rate) 73 /min Valarie Blackmon [facility] 12-05-2020 15:52-0400 Pulse Oximetry 91 % Valarie Blackmon [facility] 12-03-2020 15:00-0400 Body Temperature 97 [degF] Ashley Mcgrath [facility] 12-03-2020 15:00-0400 BP Diastolic 80 mm[Hg] Ashley Mcgrath [facility] 12-03-2020 15:00-0400 BP Systolic 150 mm[Hg] Ashley Mcgrath [facility] 12-03-2020 15:00-0400 Pulse (Heart Rate) 68 /min Ashley Mcgrath [facility] 12-03-2020 15:00-0400 Pulse Oximetry 97 % Ashley Mcgrath [facility] 12-03-2020 15:00-0400 Respiratory Rate 16 /min Ashley Mcgrath [facility] 12-01-2020 16:19-0500 Body Temperature 98.29 [degF] Adam Russ [facility] 12-01-2020 16:19-0500 BP Diastolic 81 mm[Hg] Adam Russ [facility] 12-01-2020 16:19-0500 BP Systolic 141 mm[Hg] Adam Russ [facility] 12-01-2020 16:19-0500 Pulse (Heart Rate) 68 /min Adam Russ [facility] 12-01-2020 16:19-0500 Pulse Oximetry 91 % Adam Russ [facility] 12-01-2020 08:15-0500 Respiratory Rate 16 /min Adam Russ [facility] 11-28-2020 20:41-0500 BMI (Body Mass Index) 53.78 kg/m2 Adam Russ [facility] 11-28-2020 20:41-0500 Body weight 146.6 kg Adam Russ [facility] 11-28-2020 20:41-0500 Height 165.1 cm Adam [facility] 11-28-2020 12:16-0500 Body Temperature 97.7 [degF] [facility]-28-2020 12:16-0500 BP Diastolic 68 mm[Hg] [facility] 11-28-2020 12:16-0500 BP Systolic 130 mm[Hg] [facility] 11-28-2020 12:16-0500 Pulse (Heart Rate) 70 /min Gisele [facility] 11-28-2020 12:16-0500 Pulse Oximetry 97 % [facility] 11-28-2020 12:16-0500 Respiratory Rate 16 /min [facility] 11-26-2020 13:10-0500 Body Temperature 97.9 [degF] [facility] 11-26-2020 13:10-0500 BP Diastolic 81 mm[Hg] [facility] 11-26-2020 13:10-0500 BP Systolic 120 mm[Hg] [facility] 11-26-2020 13:10-0500 Pulse (Heart Rate) 62 /min [facility] 11-26-2020 13:10-0500 Pulse Oximetry 96 % [facility] 11-26-2020 13:10-0500 Respiratory Rate 17 /min [facility] 11-23-2020 08:59-0500 BP Diastolic 67 mm[Hg] [facility] 11-23-2020 08:59-0500 BP Systolic 122 mm[Hg] [facility] 11-23-2020 08:59-0500 Pulse (Heart Rate) 61 /min [facility] 11-23-2020 08:59-0500 Pulse Oximetry 96 % [facility] 11-23-2020 08:59-0500 Respiratory Rate 17 /min [facility] 11-22-2020 13:12-0500 Body Temperature 97.5 [degF] Marcello [facility] 11-22-2020 13:12-0500 BP Diastolic 64 mm[Hg] [facility] 11-22-2020 13:12-0500 BP Systolic 103 mm[Hg] [facility] 11-22-2020 13:12-0500 Pulse Oximetry 88 % [facility] Comment on above: returns to WNL after 30sec of pursed lip breathing 11-22-2020 13:12-0500 Respiratory Rate 14 /min Marcello Lewis [facility] 11-19-2020 12:30-0500 Body Temperature 98.2 [degF] Valarie [facility] 11-19-2020 12:30-0500 BP Diastolic 100 mm[Hg] Valarie [facility] 11-19-2020 12:30-0500 BP Systolic 179 mm[Hg] Valarie [facility] 11-19-2020 12:30-0500 Pulse (Heart Rate) 62 /min Valarie [facility] 11-19-2020 12:30-0500 Pulse Oximetry 94 % Valarie [facility] 11-16-2020 12:15-0500 Body Temperature 98.01 [degF] [facility] 11-16-2020 12:15-0500 BP Diastolic 83 mm[Hg] [facility] 11-16-2020 12:15-0500 BP Systolic 138 mm[Hg] [facility] 11-16-2020 12:15-0500 Pulse (Heart Rate) 60 /min [facility] 11-16-2020 12:15-0500 Pulse Oximetry 98 % [facility] 11-16-2020 12:15-0500 Respiratory Rate 15 /min [facility] 11-16-2020 08:45-0500 Body Temperature 97.3 [degF] Valarie [facility] 11-16-2020 08:45-0500 BP Diastolic 83 mm[Hg] Valarie [facility] 11-16-2020 08:45-0500 BP Systolic 138 mm[Hg] Valarie [facility] 11-16-2020 08:45-0500 Pulse (Heart Rate) 60 /min Valarie [facility] 11-16-2020 08:45-0500 Pulse Oximetry 98 % Valarie [facility] 11-16-2020 08:45-0500 Respiratory Rate 16 /min Valarie [facility] 11-16-2020 08:42-0500 BMI (Body Mass Index) 54.91 kg/m2 Ashley Mcgrath [facility] 11-16-2020 08:42-0500 Body Temperature 98.01 [degF] Ashley Mcgrath [facility] 11-16-2020 08:42-0500 Body weight 149.69 kg Ashley Mcgrath [facility] 11-16-2020 08:42-0500 BP Diastolic 83 mm[Hg] Ashley Mcgrath [facility] 11-16-2020 08:42-0500 BP Systolic 138 mm[Hg] Ashley Mcgrath [facility] 11-16-2020 08:42-0500 Height 165.1 cm Ashley Mcgrath [facility] 11-16-2020 08:42-0500 Pulse (Heart Rate) 60 /min Ashley Mcgrath [facility] 11-16-2020 08:42-0500 Pulse Oximetry 98 % Ashley Mcgrath [facility] 11-16-2020 08:42-0500 Respiratory Rate 16 /min Ashley Mgcrath [facility] 11-14-2020 15:58-0500 Body Temperature 97.5 [degF] Digna [facility] 11-14-2020 15:58-0500 BP Diastolic 93 mm[Hg] [facility] 11-14-2020 15:58-0500 BP Systolic 151 mm[Hg] [facility] 11-14-2020 15:58-0500 Pulse (Heart Rate) 78 /min [facility] 11-14-2020 15:58-0500 Pulse Oximetry 92 % [facility] 11-14-2020 15:58-0500 Respiratory Rate 18 /min [facility] 11-14-2020 09:33-0500 BMI (Body Mass Index) 54.66 kg/m2 [facility] 11-14-2020 09:33-0500 Body weight 149 kg [facility] 11-14-2020 09:33-0500 Height 165.1 cm [facility] 11-01-2019 16:14-0500 Pulse Oximetry 91 % Cecil Gomez [facility] 11-01-2019 16:14-0500 Respiratory Rate 22 /min Cecil Gomez [facility] 11-01-2019 16:02-0500 BP Diastolic 75 mm[Hg] Cecil Gomez [facility] 11-01-2019 16:02-0500 BP Systolic 129 mm[Hg] Cecil Gomez [facility] 11-01-2019 16:02-0500 Pulse (Heart Rate) 61 /min Cecil Gomez [facility] 11-01-2019 13:09-0500 Body Temperature 98.71 [degF] Cecil Gomez [facility] 08-22-2019 14:19-0500 BMI (Body Mass Index) 48.76 kg/m2 Giorgi Thomas [facility] 08-22-2019 14:19-0500 Body weight 132.9 kg Giorgi Thomas [facility] 08-22-2019 14:19-0500 BP Diastolic 67 mm[Hg] Giorgi Thomas [facility] 08-22-2019 14:19-0500 BP Systolic 111 mm[Hg] Giorgi Thomas [facility] 08-22-2019 14:19-0500 Pulse (Heart Rate) 91 /min Giorgipito Thomas [facility] 08-22-2019 14:19-0500 Pulse Oximetry 93 % Giorgi Thomas [facility] 07-29-2019 10:52-0500 BP Diastolic 69 mm[Hg] [facility] 07-29-2019 10:52-0500 BP Systolic 112 mm[Hg] [facility] 07-29-2019 10:52-0500 Pulse (Heart Rate) 62 /min [facility] 07-29-2019 10:52-0500 Pulse Oximetry 93 % [facility] 07-29-2019 10:52-0500 Respiratory Rate 17 /min [facility] 07-29-2019 10:07-0500 Body Temperature 97 [degF] Joe Colón [facility] 07-28-2019 12:38-0500 BMI (Body Mass Index) 48.5 kg/m2 Dignaflorencio Oropezaori [facility] 07-28-2019 12:38-0500 Body Temperature 98.6 [degF] Digna Downs [facility] 07-28-2019 12:38-0500 Body weight 132.2 kg Digna Downs [facility] 07-28-2019 12:38-0500 BP Diastolic 83 mm[Hg] Digna Downs [facility] 07-28-2019 12:38-0500 BP Systolic 135 mm[Hg] Digna Downs [facility] 07-28-2019 12:38-0500 Height 165.1 cm Digna Downs [facility] 07-28-2019 12:38-0500 Pulse (Heart Rate) 77 /min Digna Downs [facility] 07-28-2019 12:38-0500 Pulse Oximetry 93 % Digna Downs [facility] 07-28-2019 12:38-0500 Respiratory Rate 18 /min Digna Downs [facility] 07-08-2019 12:41-0400 BP Diastolic 65 mm[Hg] [facility] 07-08-2019 12:41-0400 BP Systolic 96 mm[Hg] [facility] 07-08-2019 12:41-0400 Pulse (Heart Rate) 64 /min [facility] 07-08-2019 12:41-0400 Pulse Oximetry 94 % [facility] 07-08-2019 12:27-0400 Respiratory Rate 14 /min [facility] 07-08-2019 07:14-0400 Body Temperature 98.29 [degF] [facility] 07-08-2019 07:01-0400 BMI (Body Mass Index) 47.59 kg/m2 [facility] 07-08-2019 07:01-0400 Body weight 129.73 kg [facility] 07-08-2019 07:01-0400 Height 165.1 cm [facility] 06-30-2019 16:08-0400 BP Diastolic 92 mm[Hg] Lupe Jeong [facility] 06-30-2019 16:08-0400 BP Systolic 128 mm[Hg] Lupe Jeong [facility] 06-23-2019 14:21-0400 Body weight 133.36 kg Giorgi Thomas [facility] 06-23-2019 14:21-0400 BP Diastolic 79 mm[Hg] Giorgi Thomas [facility] 06-23-2019 14:21-0400 BP Systolic 108 mm[Hg] Giorgi Thomas [facility] 06-23-2019 14:21-0400 Pulse (Heart Rate) 96 /min Giorgi Thomas [facility] 06-23-2019 14:21-0400 Pulse Oximetry 91 % Giorgi Thomas [facility] Encounters Encounter Date Encounter Type Care Provider Facility Start: 06-24-2024 End: 06-24-2024 Emergency department patient visit [facility] Start: 03-01-2024 End: 03-01-2024 ambulatory [facility] Start: 02-26-2024 End: 02-26-2024 ambulatory [facility] Start: 02-26-2024 End: 02-26-2024 Office outpatient new 45 minutes [facility] Work Phone: [facility] Comment on above: Disorder involving t hrombocytopenia (CMS-HCC) (Primary Dx); Mixed hyperlipidemia; Current moderate episode of major depressive disorder without prior episode (Multi); Obesity, morbid (Multi); KELLY (obstructive sleep apnea); Primary insomnia; Vitamin D deficiency; Hyperglycemia; Cirrhosis of liver without ascites, unspecified hepatic cirrhosis type (Multi) Start: 02-26-2024 End: 02-26-2024 ambulatory [facility] Start: 02-19-2024 End: 02-19-2024 ambulatory UNKNOWN PROVIDER Facility:[facility] Start: 02-19-2024 End: 02-19-2024 Subsequent hospital visit by physician [facility] [address] Comment on above: Hepatic cirrhosis, u nspecified hepatic cirrhosis type (HCC) (Primary Dx); Fatty liver Hepatic cirrhosis, u nspecified hepatic cirrhosis type, unspecified whether ascites present (HCC) Start: 02-01-2024 Letter encounter Sage LAIRD Work Phone: [facility] Start: 01-28-2024 Patient Outreach Sage LAIRD Work Phone: [facility] Comment on above: Other family/social problem NOS (TRANSPORTATION ) Start: 01-27-2024 End: 01-27-2024 Clinical Support [facility] [facility] Comment on above: Arrived Start: 01-27-2024 End: 01-27-2024 Office outpatient visit 40 minutes Jaime ROMERO Work Phone: [facility] [place] [facility] Comment on above: Hepatic cirrhosis, u nspecified hepatic cirrhosis type, unspecified whether ascites present (HCC) (Primary Dx); Assistance needed with transportation; Anxiety about health; Insomnia, unspecified type; Fatty liver Start: 01-27-2024 End: 01-27-2024 ambulatory UNKNOWN PROVIDER Facility:[facility] Start: 01-12-2024 End: 01-12-2024 Emergency department patient visit [facility] Start: 12-19-2023 End: 12-19-2023 Emergency department patient visit [facility] Start: 12-19-2023 End: 12-19-2023 Emergency department patient visit Leticia Sylvester MD Work Phone: [facility] Emergency Department Start: 11-23-2023 Transcribe Orders Leticia Sylvester MD Work Phone: [facility] Comment on above: Migraine with aura, with intractable migraine, so stated, with status migrainosus (Primary Dx) Start: 08-19-2023 ambulatory CAROL ANN VICENTE [facility] Start: 08-19-2023 End: 08-19-2023 Subsequent hospital visit by physician Carol Ann Vicente MD Work Phone: [facility] Radiology Start: 08-15-2023 Letter encounter Lupillo Ocampo MD Work Phone: [facility] Start: 08-10-2023 End: 08-14-2023 ambulatory PROVIDER NOT IN SYSTEM [facility] Start: 06-30-2023 End: 06-30-2023 Office outpatient new 30 minutes Ana Canales CNP Work Phone: [facility] Comment on above: Primary osteoarthrit is of left knee (Primary Dx) Start: 05-22-2023 End: 05-26-2023 ambulatory CALVIN PIMENTEL [facility] Start: 05-22-2023 End: 05-26-2023 Emergency department patient visit Jose Eduardo Dumotn MD Work Phone: [facility] Med Surg Comment on above: Hypertensive urgency Start: 05-01-2023 End: 05-01-2023 Emergency department patient visit JAGPRIT GEORGE [facility] Start: 04-17-2023 End: 04-17-2023 Office outpatient new 45 minutes Leticia Sylvester MD Work Phone: [facility] Comment on above: Pain in left lower l eg Start: 02-16-2023 End: 02-16-2023 Emergency department patient visit LETICIA [facility] Start: 02-16-2023 End: 02-16-2023 Emergency department patient visit Leticia Sylvester MD Work Phone: [facility] Emergency Department Start: 11-05-2022 End: 11-05-2022 Emergency department patient visit VTSUKUMAR [facility] Start: 10-15-2022 End: 10-15-2022 Patient encounter procedure Av Delgado MD Work Phone: [facility] Urology Comment on above: Urinary frequency (P rimary Dx); Other microscopic hematuria Start: 10-09-2022 End: 10-09-2022 Subsequent hospital visit by physician Av Delgado MD Work Phone: [facility] CT Scan Comment on above: Arrived Start: 10-01-2022 End: 10-01-2022 Office outpatient new 45 minutes Av Delgado MD Work Phone: [facility] Comment on above: Other microscopic he maturia (Primary Dx); Urinary frequency Start: 09-11-2022 Letter encounter Lupillo Ocampo MD Work Phone: [facility] Start: 09-01-2022 End: 09-01-2022 Emergency department patient visit Bao Hsieh MD Work Phone: [facility] Emergency Department Start: 08-23-2022 Letter encounter Lupillo Ocampo MD Work Phone: [facility] Start: 08-19-2022 End: 08-20-2022 Phys/qhp telephone evaluation 21-30 min Eusebia Jones EXAMINATION SCORER-CONTRACTS DIRECTOR Work Phone: [facility] G[facility]enter[facility] Comment on above: Hiatal hernia (Prima ry Dx); Grade I hemorrhoids; Early satiety; Epigastric pain Start: 08-19-2022 Letter encounter Lupillo Ocampo MD Work Phone: [facility] Start: 08-11-2022 End: 08-11-2022 Anesthesia consultation Lawrence Russell MD Work Phone: [facility] Start: 08-11-2022 End: 08-11-2022 Subsequent hospital visit by physician Jennifer Khoury MD Work Phone: [facility] Comment on above: RUQ pain (Primary Dx ); Change in bowel habits; Rectal bleeding; Cirrhosis of liver without ascites, unspecified hepatic cirrhosis type (HCC); History of colonic polyps; Esophageal dysphagia; Grade I hemorrhoids; Adenomatous polyp of sigmoid colon Start: 08-08-2022 End: 08-08-2022 Office outpatient visit 5 minutes Lisa Santana RN Work Phone: [facility] Comment on above: Encounter for dominick leone testing for severe acute respiratory syndrome coronavirus 2 (SARS-CoV-2) (Primary Dx) Start: 08-06-2022 Orders Only Av Ellis APR N-CONTRACTS DIRECTOR Work Phone: [facility] Start: 08-04-2022 Orders Only Eusebia Jones EXAMINATION SCORER-CONTRACTS DIRECTOR Work Phone: [facility] Start: 08-01-2022 Orders Only Eusebia Jones EXAMINATION SCORER-CONTRACTS DIRECTOR Work Phone: [facility] Start: 07-28-2022 End: 07-28-2022 Patient encounter procedure Pse Anesthesia [facility] Pre Surgical Evaluation Comment on above: Pre-op evaluation (P rimary Dx) Start: 07-28-2022 End: 07-28-2022 Preprocedural examination done Pse Anesthesia [facility] Pre Surgical Evaluation Start: 05-21-2022 Letter encounter Lupillo Ocampo MD Work Phone: [facility] Start: 05-16-2022 Letter encounter Lupillo Ocampo MD Work Phone: [facility] Start: 04-25-2022 Letter encounter Gi Provider [facility] Gastro[facility] Start: 04-23-2022 End: 04-23-2022 Letter encounter [place] [facility] Provider [facility] [place] [facility] Comment on above: Arrived Start: 04-23-2022 End: 04-23-2022 Office outpatient visit 25 minutes Jaime ROMERO Work Phone: [facility] Comment on above: Hepatic cirrhosis, u nspecified hepatic cirrhosis type, unspecified whether ascites present (HCC) (Primary Dx); Abdominal pain, unspecified abdominal location; Abnormal finding of blood chemistry, unspecified ; Abnormal findings on diagnostic imaging of other parts of digestive tract ; Body mass index (BMI) 45.0-49.9, adult (HCC) Rectal bleeding ([facility] Dx); Constipation, unspecified constipation type; Change in bowel habits; RUQ pain; Esophageal dysphagia; Encounter for laboratory testing for severe acute respiratory syndrome coronavirus 2 (SARS-CoV-2); Body mass index (BMI) 45.0-49.9, adult (HCC) Start: 02-14-2022 Letter encounter Lupillo Ocampo MD Work Phone: [facility] Start: 01-27-2022 End: 01-31-2022 Emergency department patient visit Av Bertrand MD Work Phone: [facility] Med Surg Comment on above: Chest pain Start: 10-22-2021 Home visit Irene champagne RN [facility] Comment on above: CASE COMMUNICATION Start: 10-21-2021 ambulatory [facility] Start: 09-26-2021 ambulatory [facility] Facility:[facility] Start: 08-29-2021 ambulatory [facility] Facility[facility] Start: 06-07-2021 ambulatory [facility] Facility:[facility] Start: 04-03-2021 End: 04-03-2021 Subsequent hospital visit by physician Leticia Sylvester MD Work Phone: [facility] Ultrasound Comment on above: Arrived Start: 04-03-2021 ambulatory SELF SELF Facility:[facility] Start: 03-28-2021 End: 03-28-2021 Subsequent hospital visit by physician Leticia Sylvester MD Work Phone: [facility] Comment on above: Arrived Start: 02-27-2021 ambulatory SELF SELF Facility:[facility] Start: 02-20-2021 ambulatory [facility] Facility:[facility] Start: 02-15-2021 ambulatory DAMALIE N SHIRIMA Facil ity:[facility] Start: 02-13-2021 End: 02-13-2021 Refill Giorgi Thomas MD Work Phone: [facility] Comment on above: Medication Refill; M edication Refill Start: 01-30-2021 ambulatory SELF SELF Facility:[facility] Start: 01-16-2021 ambulatory SELF SELF Facility:[facility] Start: 01-16-2021 ambulatory SELF SELF Facility:[facility] Start: 01-02-2021 ambulatory [facility] Facility[facility] Start: 01-01-2021 ambulatory [facility] Facility[facility] Start: 12-28-2020 ambulatory NESHAVANIA CHÁVEZ Facili ty:[facility] Start: 12-28-2020 End: 12-28-2020 Home visit Valarie Blackmon [facility] Comment on above: OT OASIS DISCHARGE Start: 12-26-2020 End: 12-26-2020 Home visit Nasima Acevedo [facility] Comment on above: GLASS CALIBRATOR HH MISSED VISIT BURROWS MISSED VISIT Start: 12-26-2020 ambulatory ITZELSUKUMAR SYLVESTER Facility:[facility] Start: 12-21-2020 End: 12-21-2020 Home visit Gisele Cervantes [facility] Comment on above: BURROWS MISSED VISIT Start: 12-19-2020 End: 12-19-2020 Home visit Liliam Whiting [facility] Comment on above: PROP MAKING SUPERVISOR MISSED VISIT GLASS CALIBRATOR HH MISSED VISIT Start: 12-17-2020 End: 12-17-2020 Home visit Valarie Blackmon [facility] Comment on above: OT REASSESSMENT Start: 12-14-2020 End: 12-14-2020 Home visit Jessenia Reynoso [facility] Comment on above: TELEPHONE ENCOUNTER Start: 12-13-2020 End: 12-13-2020 Home visit Valarie Blackmon [facility] Comment on above: OT MISSED VISIT Start: 12-12-2020 End: 12-12-2020 Home visit Liliam Whiting [facility] Comment on above: PROP MAKING SUPERVISOR HH ROUTINE GLASS CALIBRATOR HH MISSED VISIT Start: 12-11-2020 End: 12-11-2020 Home visit Annalee Dyson [facility] Comment on above: PT NON-OASIS/DISCIPL INE DISCHARGE BURROWS ROUTINE VISIT Start: 12-06-2020 End: 12-06-2020 Home visit Annalee Dyson [facility] Comment on above: PT INITIAL EVALUATIO N Start: 12-05-2020 End: 12-05-2020 Home visit Valarie Blackmon [facility] Comment on above: OT SECONDARY KRYSTIN Start: 12-05-2020 End: 12-05-2020 Home visit Liliam Whiting [facility] Comment on above: PROP MAKING SUPERVISOR HH ROUTINE Start: 12-04-2020 End: 12-04-2020 Home visit Annalee Dyson [facility] Comment on above: CASE COMMUNICATION Start: 12-03-2020 End: 12-03-2020 Home visit Ashley Mcgrath [facility] Comment on above: SN HH OASIS RESUMPTI ON OF CARE Start: 11-28-2020 End: 12-01-2020 Evaluation and management of inpatient Adam Russ Work Phone: [facility] Med Surg Oncology Start: 11-28-2020 End: 11-28-2020 Home visit Liliam Whiting [facility] Comment on above: PROP MAKING SUPERVISOR MISSED VISIT BURROWS ROUTINE VISIT Start: 11-27-2020 End: 11-27-2020 Home visit Ashley Mcgrath [facility] Comment on above: CASE COMMUNICATION SN MISSED VISIT Start: 11-26-2020 End: 11-26-2020 Home visit Annalee Dyson [facility] Comment on above: PT MISSED VISIT BURROWS ROUTINE VISIT Start: 11-23-2020 End: 11-23-2020 Home visit Marcello Lewis [facility] Comment on above: MEDICAL TRANSPORT SPECIALIST MISSED VISIT BURROWS ROUTINE VISIT SN MISSED VISIT Start: 11-22-2020 End: 11-22-2020 Home visit Marcello Lewis [facility] Comment on above: MEDICAL TRANSPORT SPECIALIST ROUTINE VISIT Start: 11-19-2020 End: 11-19-2020 Subsequent hospital visit by physician Digna Enriquez Work Phone: [facility] Comment on above: Bilateral pain of le g and foot Start: 11-19-2020 End: 11-19-2020 Home visit Valarie Ochoa Lorri [facility] Comment on above: OT ROUTINE VISIT Start: 11-16-2020 End: 11-16-2020 Home visit Carmen Louise [facility] Comment on above: CASE COMMUNICATION PT INITIAL EVALUATIO N OT INITIAL EVALUATIO N SN HH OASIS START OF CARE Start: 11-14-2020 End: 11-14-2020 Subsequent hospital visit by physician Digna Enriquez Work Phone: [facility] Periop Start: 11-10-2020 End: 11-10-[address] [facility] Start: 11-08-2020 Preprocedural examination done Lupillo Ocampo MD Work Phone: [facility] Start: 11-05-2020 End: 11-05-2020 Transcribe Orders [facility] Comment on above: Contact with or expo sure to viral disease (Primary Dx) Start: 11-03-2020 Preprocedural examination done Giorgi Thomas MD Work Phone: [facility] Start: 10-29-2020 End: 10-29-2020 Transcribe Orders Elizabeth [facility] Comment on above: COVID-19 (Primary Dx ) Start: 11-01-2019 End: 11-01-2019 Emergency department patient visit Cecilanthony Gomez Work Phone: [facility] Emergency Department Comment on above: Arthritis of right s [place] region (Primary Dx); Bronchospasm Start: 09-20-2019 End: 09-20-2019 Subsequent hospital visit by physician Giorgi Thomas Work Phone: [facility] CT Scan Comment on above: MCGOWAN (dyspnea on exer tion) Start: 09-05-2019 End: 09-05-2019 Subsequent hospital visit by physician Giorgi Thomas Work Phone: [facility] Comment on above: MCGOWAN (dyspnea on exer tion) Start: 08-22-2019 End: 08-22-2019 Office outpatient visit 25 minutes Giorgi Thomas Work Phone: [facility] Comment on above: MCGOWAN (dyspnea on exer tion) (Primary Dx); ASHD (arteriosclerotic heart disease) Start: 07-29-2019 End: 07-29-2019 Subsequent hospital visit by physician Joe Colón Work Phone: [facility] Endoscopy Start: 07-28-2019 End: 07-28-2019 Office consultation new/estab patient 80 min Joe Colón Work Phone: [facility] Preadmission Testing Comment on above: Preop examination (P rimary Dx); Personal history of colonic polyps; Morbid obesity (HCC); Coronary artery disease involving mechoopda coronary artery of mechoopda heart without angina pectoris; Other cirrhosis of liver (HCC); KELLY (obstructive sleep apnea); Essential hypertension; Hyperlipidemia, unspecified hyperlipidemia type Start: 07-28-2019 End: 07-28-2019 Subsequent hospital visit by physician Julia Anderson Work Phone: [facility] Ultrasound Comment on above: Epigastric pain; Other cirrhosis of liver (HCC); Personal history of colonic polyps; Gastrointestinal symptoms; Hematochezia; Hepatic encephalopathy (HCC) Start: 07-08-2019 End: 07-08-2019 Subsequent hospital visit by physician Hari Acosta Work Phone: [facility] Procedural Care Unit Start: 06-30-2019 End: 06-30-2019 Clinical Support Lupe Jeong [facility] Comment on above: Chest pain, unspecif ied type (Primary Dx); MCGOWAN (dyspnea on exertion) Start: 06-23-2019 End: 06-23-2019 Subsequent hospital visit by physician Giorgi Thomas Work Phone: [facility] Ortho Clinic Comment on above: Chest pain, unspecif ied type; MCGOWAN (dyspnea on exertion); ASHD (arteriosclerotic heart disease) Start: 06-23-2019 End: 06-23-2019 Office outpatient visit 25 minutes Giorgi Thomas Work Phone: [facility] Comment on above: Chest pain, unspecif ied type (Primary Dx); MCGOWAN (dyspnea on exertion); ASHD (arteriosclerotic heart disease) Start: 05-02-2019 End: 05-02-2019 Subsequent hospital visit by physician Aleida Leal Work Phone: [facility] [place] [facility] Scan Comment on above: Stomach ache Start: 03-01-2019 End: 03-01-2019 Documentation procedure Ariella Chiu [facility] Start: 08-04-2018 End: 08-04-2018 Emergency department patient visit Adam Russ Facility:[place] Start: 07-19-2018 Patient encounter procedure Leticia Higinio Facility:[place] Start: 07-19-2018 End: 07-19-2018 Patient encounter Itzelsukumar Higinio Work Phone: [facility] Start: 06-25-2018 Patient encounter procedure Sondra To Facility:[place] Start: 06-25-2018 End: 06-25-2018 Patient encounter Sondra To Work Phone: [facility] Start: 04-26-2018 End: 04-27-2018 Emergency department patient visit Charles Russell Facility:[place] [facility] Start: 11-26-2017 Patient encounter procedure Valentino Adkins Facility:[place] Start: 11-26-2017 End: 11-26-2017 Ambulatory Valentino Adkins Work Phone: [facility] Procedures Date Procedure Procedure Detail Performing Clinician Start: 02-19-2024 Us abdominal real ti me w/image limited Jaime Carter EXAMINATION SCORER-CONTRACTS DIRECTOR Work Phone: Start: 02-19-2024 Liver elastography w /o imag w/i&r Jaime Carter EXAMINATION SCORER-CONTRACTS DIRECTOR Work Phone: Start: 01-27-2024 Alpha-fetoprotein serum Jaime Carter EXAMINATION SCORER-CONTRACTS DIRECTOR Work Phone: Start: 01-27-2024 Hepatic function panel Jaime Carter EXAMINATION SCORER-CONTRACTS DIRECTOR Work Phone: Start: 12-19-2023 Ct abdomen & pelvis w/o contrast material Dominique Hopson PA-C Work Phone: Start: 12-19-2023 Albumin serum plasma /whole blood Dominique Hopson PA-C Work Phone: Start: 12-19-2023 Assay of ethanol Dominique Hopson PA-C Work Phone: Start: 12-19-2023 Complete blood count with white cell differential, automated Dominique Hopson PA-C Work Phone: Start: 12-19-2023 Culture bacterial qu anttative colony count urine Dominique Hopson PA-C Work Phone: Start: 12-19-2023 Urinalysis, reagent strip without microscopy Dominique Hopson PA-C Work Phone: Start: 12-19-2023 Urine drug screening Ashutosh Hopson PA-C Work Phone: Start: 05-26-2023 Complete blood count with white cell differential, automated Giorgi Adan EXAMINATION SCORER-CONTRACTS DIRECTOR Work Phone: Start: 05-26-2023 Renal function panel Taina Bee MD Work Phone: Start: 05-25-2023 Comprehensive metabolic panel Giorgi Adan EXAMINATION SCORER-CONTRACTS DIRECTOR Work Phone: Start: 05-24-2023 Comprehensive metabolic panel Giorgi Adan EXAMINATION SCORER-CONTRACTS DIRECTOR Work Phone: Start: 05-23-2023 Us retroperitoneal r eal time w/image complete Giorgi Adan EXAMINATION SCORER-CONTRACTS DIRECTOR Work Phone: Start: 09-02-2023 Comprehensive metabolic panel Giorgi D Loco EXAMINATION SCORER-CONTRACTS DIRECTOR Work Phone: Start: 05-23-2023 Lipid panel Giorgi Adan EXAMINATION SCORER-CONTRACTS DIRECTOR Work Phone: Start: 05-23-2023 Lipid 1996 panel - S jina or Plasma Jose Eduardo Dumont MD Work Phone: Start: 05-22-2023 Assay of troponin quantitative Giorgi Adan EXAMINATION SCORER-CONTRACTS DIRECTOR Work Phone: Start: 05-22-2023 Cultyp nuc acid amp prb cult/isolate ea orgnism Giorgi Adan EXAMINATION SCORER-CONTRACTS DIRECTOR Work Phone: Start: 05-22-2023 Ct head/brain w/o co ntrast material Jose Eduardo Dumont MD Work Phone: Start: 05-22-2023 Radiologic exam chest 2 views Jose Eduardo Dumont MD Work Phone: Start: 05-22-2023 Comprehensive metabolic panel Jose Eduardo Dumont MD Work Phone: Start: 05-22-2023 Ecg routine ecg w/le ast 12 lds trcg only w/o i&r Jose Eduardo Dumont MD Work Phone: Start: 05-22-2023 Assay of urine sodium S arleth Adan EXAMINATION SCORER-CONTRACTS DIRECTOR Work Phone: Start: 05-22-2023 Urnls dip stick/tabl et rgnt auto w/o microscopy Jose Eduardo Dumont MD Work Phone: Start: 02-16-2023 Albumin serum plasma /whole blood Vi Avery PA-C Work Phone: Start: 02-16-2023 Complete blood count with white cell differential, automated Vi Avery PA-C Work Phone: Start: 10-15-2022 Cystourethroscopy Av Delgado MD Work Phone: Start: 10-15-2022 GENERAL PROCEDURE Av Delgado MD Work Phone: Start: 10-15-2022 Urnls dip stick/tabl et rgnt auto w/o microscopy Av Delgado MD Work Phone: Start: 10-09-2022 Ct abdomen & pelvis w/o contrst 1/> body re Av Delgado MD Work Phone: Start: 10-01-2022 Urnls dip stick/tabl et rgnt auto w/o microscopy Av Delgado MD Work Phone: Start: 09-01-2022 Complete blood count with white cell differential, automated Bao Hsieh MD Work Phone: Start: 09-01-2022 Comprehensive metabolic panel Bao Hsieh MD Work Phone: Start: 09-01-2022 Radiologic exam ches t single view Bao Hsieh MD Work Phone: Start: 09-01-2022 Iadna nos amplified probe tq each organism Bao Hsieh MD Work Phone: Start: 09-01-2022 Quantitative PCR analysis Bao Hsieh MD Work Phone: Start: 08-11-2022 Colsc flx w/rmvl of tumor polyp lesion snare tq Pj Casanova MD Work Phone: Start: 08-11-2022 Egd transoral biopsy single/multiple Pj Casanova MD Work Phone: Start: 08-11-2022 Colonoscopy Gi Provide r Start: 08-08-2022 SARS-CoV-2 (COVID-19 ) RNA [Presence] in Unspecified specimen by KRANTHI with probe detection Av Ellis APRN-CONTRACTS DIRECTOR Work Phone: Start: 07-28-2022 Ecg routine ecg w/le ast 12 lds trcg only w/o i&r Giacomo Mc MD Work Phone: Start: 04-23-2022 Alpha-fetoprotein serum Jaime Carter APRN-CONTRACTS DIRECTOR Work Phone: Start: 04-23-2022 Hepatic function panel aJime Carter EXAMINATION SCORER-CONTRACTS DIRECTOR Work Phone: Start: 04-23-2022 Lipid 1996 panel - S jina or Plasma Eduardo Ahmadi Work Phone: Start: 01-31-2022 C-reactive protein Foreign Campos EXAMINATION SCORER-CONTRACTS DIRECTOR Work Phone: Start: 01-31-2022 Complete blood count with white cell differential, automated Flip Campos EXAMINATION SCORER-CONTRACTS DIRECTOR Work Phone: Start: 01-31-2022 Comprehensive metabolic panel Flip Campos EXAMINATION SCORER-CONTRACTS DIRECTOR Work Phone: Start: 01-30-2022 Urinalysis microscopic only Flip Campos EXAMINATION SCORER-CONTRACTS DIRECTOR Work Phone: Start: 01-30-2022 Urinalysis, reagent strip without microscopy Flip Campos EXAMINATION SCORER-CONTRACTS DIRECTOR Work Phone: Start: 01-30-2022 Urine drug screening Shawanda Campos EXAMINATION SCORER-CONTRACTS DIRECTOR Work Phone: Start: 01-30-2022 Ct head/brain w/o co ntrast material Flip Campos EXAMINATION SCORER-CONTRACTS DIRECTOR Work Phone: Start: 01-30-2022 Myocardial spect mul tiple studies Giorgi Pfeiffer Loco EXAMINATION SCORER-CONTRACTS DIRECTOR Work Phone: Start: 01-30-2022 C-reactive protein Foreign Campos EXAMINATION SCORER-CONTRACTS DIRECTOR Work Phone: Start: 01-30-2022 Complete blood count with white cell differential, automated Flip Campos EXAMINATION SCORER-CONTRACTS DIRECTOR Work Phone: Start: 01-30-2022 Comprehensive metabolic panel Flip Campos EXAMINATION SCORER-CONTRACTS DIRECTOR Work Phone: Start: 01-29-2022 Ecg routine ecg w/le ast 12 lds trcg only w/o i&r Isreal Brush PA-C Work Phone: Start: 01-29-2022 Ecg routine ecg w/le ast 12 lds trcg only w/o i&r Isreal HAMMER-C Work Phone: Start: 01-29-2022 Assay of troponin quantitative Isreal HAMMER-C Work Phone: Start: 01-29-2022 C-reactive protein Foreign ua D Grund EXAMINATION SCORER-CONTRACTS DIRECTOR Work Phone: Start: 01-29-2022 End: 01-29-2022 Comprehensive metabolic panel Flip Ayers rund EXAMINATION SCORER-CONTRACTS DIRECTOR Work Phone: Start: 01-28-2022 TTE w or wo fol wcon,Doppler Flip Pfeiffer Grund EXAMINATION SCORER-CONTRACTS DIRECTOR Work Phone: Start: 01-28-2022 C-reactive protein Foreign ua Kentrell Grund EXAMINATION SCORER-CONTRACTS DIRECTOR Work Phone: Start: 01-28-2022 Potassium serum plas ma/whole blood Av Bertrand MD Work Phone: Start: 01-28-2022 Blood count complete auto&auto difrntl wbc Av Bertrand MD Work Phone: Start: 01-27-2022 Assay of troponin quantitative Michaela HAMMER-C Work Phone: Start: 01-27-2022 Ct head/brain w/o co ntrast material Michaela Barragan PA-C Work Phone: Start: 01-27-2022 End: 01-27-2022 Urinalysis microscopic only Michaela schultz PA-C Work Phone: Start: 01-27-2022 Urinalysis, reagent strip without microscopy Michaela Barragan PA-C Work Phone: Start: 01-27-2022 Sars-cov-2 detection by dna/rna Michaela Barragan PA-C Work Phone: Start: 01-27-2022 Radiologic exam ches t single view Michaela Barragan PA-C Work Phone: Start: 01-27-2022 Assay of thyroid sti mulating hormone tsh Michaela Barragan PA-C Work Phone: Start: 01-27-2022 Ecg routine ecg w/le ast 12 lds trcg only w/o i&r Silas Starkey MD Work Phone: Start: 03-28-2021 Radex shoulder compl ete minimum 2 views Leticia Sylvester MD Work Phone: Start: 01-16-2021 Lipid 1996 panel - S jina or Plasma Av Bertrand MD Work Phone: Start: 12-01-2020 Basic metabolic 2000 panel - Serum or Plasma Damienamad Mushalan Work Phone: Start: 12-01-2020 Complete blood count with white cell differential, automated Mohamad Muhailan Work Phone: Start: 12-01-2020 Complete blood count with white cell differential, manual Mohamad Muhailan Work Phone: Start: 11-30-2020 Complete blood count with white cell differential, automated Damienamad Giacomohailan Work Phone: Start: 11-30-2020 Complete blood count with white cell differential, manual Mohamad Muhailan Work Phone: Start: 11-30-2020 Basic metabolic 2000 panel - Serum or Plasma Damienamad Mushalan Work Phone: Start: 11-29-2020 Dup-scan xtr veins unilateral/limited study Dianelys Avery Work Phone: Start: 11-29-2020 Potassium [Moles/vol ume] in Serum or Plasma Eli Morataya Work Phone: Start: 11-29-2020 Basic metabolic 2000 panel - Serum or Plasma Damienamad Muhailan Work Phone: Start: 11-29-2020 Complete blood count with white cell differential, automated Cinemuramad Giacomohailan Work Phone: Start: 11-29-2020 Complete blood count with white cell differential, manual Lizbet Pack Work Phone: Start: 11-28-2020 COVID-19/INFLUENZA A ,B MOLECULAR Adam Aris Petrona Work Phone: Start: 11-28-2020 Bacteria identified in Blood by Culture Adam Russ Work Phone: Start: 11-28-2020 X-ray of right foot Norberto tony Hurst Petrona Work Phone: Start: 11-28-2020 Complete blood count with white cell differential, automated Adam Russ Work Phone: Start: 11-28-2020 Complete blood count with white cell differential, manual Adam Russ Work Phone: Start: 11-28-2020 Lactate [Moles/volum e] in Serum or Plasma Adam Russ Work Phone: Start: 11-28-2020 Basic metabolic 2000 panel - Serum or Plasma Adam Aris Petrona Work Phone: Start: 11-19-2020 Dup-scan xtr veins c omplete bilateral study Digna Enriquez Work Phone: Start: 11-14-2020 XR OR FLUOROSCOPY TIME Digna Enriquez Work Phone: Start: 11-01-2019 Fibrin dgradj produc ts d-dimer quantitative Cecil Rings Work Phone: Start: 11-01-2019 Assay of troponin quantitative Cecil Rings Work Phone: Start: 11-01-2019 Iaadiadoo influenza Elodia hakar Rings Work Phone: Start: 11-01-2019 Natriuretic peptide Elodia hakar Rings Work Phone: Start: 11-01-2019 Radex shoulder compl ete minimum 2 views Cecil Rings Work Phone: Start: 11-01-2019 12 lead ECG Cecil Purdy ings Work Phone: Start: 11-01-2019 Blood count complete auto&auto difrntl wbc Cecil Rings Work Phone: Start: 11-01-2019 Radiologic exam ches t single view Cecil Rings Work Phone: Start: 11-01-2019 Basic metabolic pane l calcium ionized Cecil Rings Work Phone: Start: 11-01-2019 POC CBC AND DIFFERENTIAL Cecil Rings Work Phone: Start: 09-20-2019 CT angiography of pu lmonary artery Giorgi Leland Thomas Work Phone: Start: 09-05-2019 Echocardiography Taylor Thomas Work Phone: Start: 07-29-2019 End: 07-29-2019 Colonoscopy Joe Colón Work Phone: Start: 07-29-2019 Endoscopy of esophagus Joe Colón Work Phone: Start: 07-28-2019 Complete blood count (hemogram) panel - Blood by Automated count Joe Colón Work Phone: Start: 07-28-2019 Creatinine [Mass/vol ume] in Serum or Plasma Joe Colón Work Phone: Start: 07-28-2019 Potassium [Moles/vol ume] in Serum or Plasma Joe Colón Work Phone: Start: 07-28-2019 US scan of upper abdomen Julia Francoatia Work Phone: Start: 07-08-2019 Cardiac catheterization Giorgi Thomas Work Phone: Start: 06-24-2019 12 lead ECG Giorgi Thomas Work Phone: Start: 06-23-2019 Standard chest X-ray jerad Leland Thomas Work Phone: Start: 05-02-2019 Ct abdomen & pelvis w/o contrast material Aleida Leal Work Phone: Start: 07-19-2018 End: 07-19-2018 MHS - CPK, TOTAL Leticia Sylvester Work Phone: Start: 07-19-2018 End: 07-19-2018 Myoglobin Leticia Sylvester Work Phone: Start: 06-25-2018 End: 06-25-2018 25 hydroxy includes fractions if performed Sondra To Work Phone: Start: 06-25-2018 End: 06-25-2018 Alanine aminotransferase [Enzymatic activity/volume] in Serum or Plasma Sondra To Work Phone: Start: 06-25-2018 End: 06-25-2018 Aspartate aminotransferase [Enzymatic activity/volume] in Serum or Plasma Sondra To Work Phone: Start: 06-25-2018 End: 06-25-2018 Basic metabolic 2000 panel - Serum or Plasma Sondra To Work Phone: Start: 06-25-2018 End: 06-25-2018 Complete blood count (hemogram) panel - Blood by Automated count Sondra To Work Phone: Start: 06-25-2018 End: 06-25-2018 Hemoglobin A1c/Hemoglobin.total in Blood Sondra To Work Phone: Start: 06-25-2018 End: 06-25-2018 Lipid 1996 panel - Serum or Plasma Sondra To Work Phone: Start: 06-25-2018 End: 06-25-2018 MHS - VITAMIN B12 AND FOLATES Sondra Jb bernabe Work Phone: Start: 06-25-2018 End: 06-25-2018 Thyrotropin [Units/volume] in Serum or Plasma by Detection limit <= 0.005 mIU/L Sondra To Work Phone: Start: 06-25-2015 Karla Ocampo MD Work Phone: Plan of Treatment Date Care Activity Detail Author Start: 02-01-2034 DTaP/Tdap/Td Vaccines (2 - Td or Tdap) DTaP/Tdap/Td Vaccines (2 - Td or Tdap) [facility] Start: 02-01-2034 Tetanus vaccination Tetanus (Td or Tdap) Booster [facility] Start: 08-11-2032 Screening for malignant neoplasm of [facility] Start: 07-29-2029 Screening for malignant neoplasm of colon [facility] Start: 08-10-2028 Cholesterol [Mass/volume] in Serum or Plasma Cholesterol [facility] Start: 05-23-2028 Lipid panel LIPID SCREENING [facility] Start: 04-23-2027 Cholesterol [Mass/volume] in Serum or Plasma Cholesterol [facility] Start: 04-23-2027 Lipid panel Lipid Panel [facility] Start: 08-10-2026 Diabetes mellitus screening Diabetes Screening [facility] Start: 2026 Pneumococcal Vaccine: Ped or At-Risk (2 of 2 - PPSV23) Pneumococcal Vaccine: Ped or At-Risk (2 of 2 - PPSV23) [facility] Start: 01-16-2026 Fasting lipid profile LIPID SCREENING [facility] Start: 01-16-2026 Lipid panel LIPID SCREENING [facility] Start: 08-11-2025 Screening for malignant neoplasm of colon [facility] Start: 06-25-2025 Screening for malignant neoplasm of colon [facility] Start: 01-26-2025 Creatinine measurement Basic Metabolic Panel [facility] Start: 08-20-2024 Liver Imaging (Hepatocellular Carcinoma Screening) Liver Imaging (Hepatocellular Carcinoma Screening) [facility] Start: 07-29-2024 Fluid sample AFP level Alpha Fetoprotein (Hepatocellular Carcinoma Screening) [facility] Start: 07-26-2024 End: 07-26-2024 Patient encounter procedure 07/26/2024 1:00 PM EST Office Visit [facility] [address] [place] [address] Jaime Carter APRN-CONTRACTS DIRECTOR [address] [facility] [place] [address] [facility] Start: 06-06-2024 Creatinine measurement Basic Metabolic Panel [facility] Start: 05-26-2024 Potassium [Moles/volume] in Serum or Plasma POTASSIUM [facility] Start: 02-26-2024 End: 02-25-2025 25-hydroxyvitamin D3 [Mass/volume] in Serum or Plasma Vitamin D 25-Hydroxy,Total (for eval of Vitamin D levels) Lab Routine Vitamin D deficiency Expected: 02/26/2024 (Approximate), Expires: 02/25/2025 [facility] Work Phone: Comment on above: Expected: 02/26/2024 (Approximate), Expi res: 02/25/2025 Start: 02-26-2024 End: 02-25-2025 Basic metabolic 2000 panel - Serum or Plasma Basic Metabolic Panel Lab Routine Hyperglycemia Expected: 02/26/2024 (Approximate), Expires: 02/25/2025 [facility] Work Phone: Comment on above: Expected: 02/26/2024 (Approximate), Expi res: 02/25/2025 Start: 02-26-2024 End: 02-25-2025 Hemoglobin A1c/Hemoglobin.total in Blood Hemoglobin A1C Lab Routine Hyperglycemia Expected: 02/26/2024 (Approximate), Expires: 02/25/2025 [facility] Work Phone: Comment on above: Expected: 02/26/2024 (Approximate), Expi res: 02/25/2025 Start: 02-26-2024 End: 02-25-2025 Home sleep apnea test (HSAT) Home sleep apnea test (HS AT) Sleep Center Routine KELLY (obstructive sleep apnea) Expected: 02/26/2024 (Approximate), Expires: 02/25/2025 [facility] Service Area Work Phone: Comment on above: Expected: 02/26/2024 (Approximate), Expi res: 02/25/2025 Start: 02-19-2024 End: 02-19-2024 Patient encounter procedure [facility] Start: 02-17-2024 Potassium [Moles/volume] in Serum or Plasma POTASSIUM [facility] Start: 01-27-2024 End: 01-26-2025 US Abdomen RUQ US LIVER/GALL BLADDER/PANCREAS Imaging Routine Hepatic cirrhosis, unspecified hepatic cirrhosis type, unspecified whether ascites present (HCC) Expected: 01/27/2024, Expires: 01/26/2025 [facility] Work Phone: Comment on above: Expected: 01/27/2024, Expires: Start: 10-12-2023 End: 10-12-2023 Patient encounter procedure 10/12/2023 1:30 PM EST Office Visit [facility] [address] [place] [phone] Marquise Greenwood MD [address] [place] [phone] [facility] Start: 09-01-2023 Potassium [Moles/volume] in Serum or Plasma POTASSIUM [facility] Start: 08-06-2023 End: 08-06-2023 Social Work 08/06/2023 2:00 PM EST Social Work [facility] [address] [place] [address] Hyacinth Reeves LISW [address] [place] [phone] [facility] Start: 05-22-2023 COVID-19 Vaccine ( season) COVID-19 Vaccine ( season) [facility] Start: 05-22-2023 Influenza vaccination Sequential Influenza Vaccine (#1) [facility] Start: 04-23-2023 End: 04-23-2023 Basic metabolic 2000 panel - Serum or Plasma [facility] Comment on above: 1 Occurrences starting 04/23/2022 until 04/23/2023 Start: 04-23-2023 Creatinine measurement Basic Metabolic Panel [facility] Start: 01-31-2023 Basic metabolic 2000 panel - Serum or Plasma Basic Metabolic Panel [facility] Start: 01-13-2023 End: 01-13-2023 Patient encounter procedure 01/13/2023 Office Visit Urology Lisa Gill, CONTRACTS DIRECTOR [address] [address] [facility] Start: 12-01-2022 Cholesterol [Mass/volume] in Serum or Plasma Cholesterol [facility] Start: 11-19-2022 Annual wellness visit Annual Wellness Visit (G0438) [facility] Start: 10-24-2022 Fluid sample AFP level Alpha Fetoprotein (Hepatocellular Carcinoma Screening) [facility] Start: 10-15-2022 End: 10-15-2022 Patient encounter procedure 10/15/2022 Office Visit Urology Av Delgado MD [address] [place] [address] [facility] Start: 10-02-2022 End: 10-01-2023 CT Abdomen and Pelvis CT UROGRAM ABDOMEN/PELVIS W/ CT POST PROCESSING Imaging Routine Other microscopic hematuria Urinary frequency Expected: 10/02/2022 (Approximate), Expires: 10/01/2023 [facility] Comment on above: Expected: 10/02/2022 (Approximate), Expi res: 10/01/2023 Start: 09-30-2022 End: 09-30-2022 Patient encounter procedure 09/30/2022 Appointment Radiology [facility] Start: 08-19-2022 End: 08-19-2022 Telemedicine consultation with patient 08/19/2022 Telemedicine Gastroenterology Eusebia Jones, AWILDA-ORTIZ [address] [facility] [place] [address] [facility] Start: 08-19-2022 End: 08-19-2023 NM Stomach Views for gastric emptying W radionuclide PO NM GASTRIC EMPTYING STUDY Imaging Routine Early satiety Expected: 08/19/2022, Expires: 08/19/2023 [facility] [employer] [facility] Work Phone: Comment on above: Expected: 08/19/2022, Expires: Start: 08-11-2022 End: 08-11-2022 Admission to same day surgery center 08/11/2022 Surgery Gastroenterology Jennifer Khoury MD [address] [facility] [place] [address] ESOPHAGOGASTRODUODENOSCOPY AND COLONOSCOPY, GENERAL ANESTHESIA [facility] Comment on above: ESOPHAGOGASTRODUODENOSCOPY AND COLONOSCO PY, GENERAL ANESTHESIA Start: 08-11-2022 End: 08-11-2022 ESOPHAGOGASTRODUODENOSCOPY AND COLONOSCOPY, GENERAL ANESTHESIA [facility] Start: 08-11-2022 Subsequent hospital visit by physician 08/11/2022 Hospital Encounter Gastroenterology Jennifer Khoury MD [address] [place] [id number] [facility] Start: 08-08-2022 End: 08-08-2022 Nursing evaluation of patient and report 08/08/2022 Nurse Visit [facility] Start: 08-06-2022 End: 09-05-2022 SARS-CoV-2 (COVID-19) RNA [Presence] in Unspecified specimen by KRANTHI with probe detection NOVEL CORONAVIRUS (COVID-19) Lab Routine Encounter for laboratory testing for severe acute respiratory syndrome coronavirus 2 (SARS-CoV-2) Expected: 08/06/2022, Expires: 09/05/2022 [facility] [employer] [facility] Work Phone: Comment on above: Expected: 08/06/2022, Expires: 2 Start: 08-04-2022 End: 09-03-2022 SARS-CoV-2 (COVID-19) RNA [Presence] in Unspecified specimen by KRANTHI with probe detection NOVEL CORONAVIRUS (COVID-19) Lab Routine Encounter for laboratory testing for severe acute respiratory syndrome coronavirus 2 (SARS-CoV-2) Expected: 08/04/2022, Expires: 09/03/2022 [facility] [employer] [facility] Work Phone: Comment on above: Expected: 08/04/2022, Expires: 2 Start: 08-01-2022 End: 08-31-2022 SARS-CoV-2 (COVID-19) RNA [Presence] in Unspecified specimen by KRANTHI with probe detection NOVEL CORONAVIRUS (COVID-19) Lab Routine Encounter for laboratory testing for severe acute respiratory syndrome coronavirus 2 (SARS-CoV-2) Expected: 08/01/2022, Expires: 08/31/2022 [facility] Work Phone: Comment on above: Expected: 08/01/2022, Expires: Start: 07-28-2022 End: 07-28-2022 Patient encounter procedure 07/28/2022 Office Visit Presurgical Evaluation [facility] Pre Surgical Evaluation Start: 06-21-2022 Influenza vaccination Influenza Vaccine (#1) [facility] Start: 05-21-2022 End: 05-21-2022 Telemedicine consultation with patient 05/21/2022 Telemedicine Gastroenterology Jaime Carter APRN-CONTRACTS DIRECTOR [address] [facility] [place] [address] [facility] Start: 2022 End: 2022 Professional / ancillary services management 2022 Ancillary Procedure Radiology [facility] Rad[facility] CT Scan Start: 04-23-2022 End: 04-23-2023 CT Abdomen and Pelvis W contrast IV CT ABDOMEN/PELVIS W/ CONTRAST Imaging Routine Hepatic cirrhosis, unspecified hepatic cirrhosis type, unspecified whether ascites present (HCC) Abdominal pain, unspecified abdominal location Expected: 04/23/2022, Expires: 04/23/2023 [facility] Comment on above: Expected: 04/23/2022, Expires: Start: 04-23-2022 End: 04-23-2022 Patient encounter procedure 04/23/2022 Office Visit Gastroenterology Eusebia Jones APRN-CONTRACTS DIRECTOR [address] [facility] [place] [address] Arrived [facility] Comment on above: Arrived Start: 04-23-2022 End: 08-23-2022 SARS-CoV-2 (COVID-19) RNA [Presence] in Unspecified specimen by KRANTHI with probe detection NOVEL CORONAVIRUS (COVID-19) Lab Routine Encounter for laboratory testing for severe acute respiratory syndrome coronavirus 2 (SARS-CoV-2) Expected: 04/23/2022, Expires: 08/23/2022 [facility] Work Phone: Comment on above: Expected: 04/23/2022, Expires: Start: 11-19-2021 Welcome to Medicare Visit (G0402) Welcome to Medicare Visit (G0402) [facility] Start: 11-01-2021 Basic metabolic 2000 panel - Serum or Plasma Basic Metabolic Panel [facility] Start: 05-22-2021 Influenza vaccination Sequential Influenza Vaccine (#1) [facility] Start: 2021 RSV patients and/or patients aged 60+ years (1 - 1-dose 60+ series) RSV patients and/or patients aged 60+ years (1 - 1-dose 60+ series) [facility] Start: 2021 RSV vaccine (optional 60+ years) RSV vaccine (optional 60+ years) [facility] Start: 01-14-2021 End: 01-14-2021 Appointment 01/14/2021 Appointment Home Health Services Ashley Mcgrath RN [facility] Start: 01-10-2021 End: 01-10-2021 Appointment 01/10/2021 Appointment Home Health Services Ashley Mcgrath RN [facility] Start: 01-09-2021 End: 01-09-2021 Home Care Visit [facility] Start: 01-03-2021 End: 01-03-2021 Home Care Visit 01/03/2021 Home Care Visit Home Health Services Ashley Mcgrath RN [facility] Start: 01-02-2021 End: 01-02-2021 Home Care Visit [facility] Start: 01-02-2021 End: 01-02-2021 Home Care Visit 01/02/2021 Home Care Visit Home Health Services Liliam Whiting PSA [facility] Start: 12-28-2020 End: 12-28-2020 Home Care Visit 12/28/2020 Home Care Visit Home Health Services Valarie Blackmon OT [facility] Start: 12-27-2020 End: 12-27-2020 Home Care Visit 12/27/2020 Home Care Visit Home Health Services Ashley Mcgrath, RN [facility] Start: 12-26-2020 End: 12-26-2020 Home Care Visit [facility] Start: 12-20-2020 End: 12-20-2020 Home Care Visit 12/20/2020 Home Care Visit Home Health Services Ashley Mcgrath RN [facility] Start: 12-19-2020 End: 12-19-2020 Home Care Visit [facility] Start: 12-13-2020 End: 12-13-2020 Home Care Visit [facility] Start: 12-12-2020 End: 12-12-2020 Home Care Visit [facility] Start: 12-06-2020 End: 12-06-2020 Home Care Visit 12/06/2020 Home Care Visit Home Health Services Annalee Dyson, PT [facility] Start: 12-06-2020 End: 12-06-2020 Home Care Visit 12/06/2020 Home Care Visit Home Health Services Annalee Dyson, PT [facility] Start: 12-06-2020 End: 12-06-2020 Home Care Visit 12/06/2020 Home Care Visit Home Health Services Ashley Mcgrath RN [facility] Start: 12-05-2020 End: 12-05-2020 Home Care Visit 12/05/2020 Home Care Visit Home Health Services Valarie Blackmon OT [facility] Start: 12-05-2020 End: 12-05-2020 Home Care Visit [facility] Start: 12-03-2020 End: 12-03-2020 Home Care Visit 12/03/2020 Home Care Visit Home Health Services Gisele Cervantes OTA [facility] Start: 11-30-2020 End: 11-30-2020 Home Care Visit 11/30/2020 Home Care Visit Home Health Services Annalee Dyson, BLAISE [facility] Start: 11-29-2020 End: 11-29-2020 Home Care Visit [facility] Start: 11-28-2020 End: 11-28-2020 Home Care Visit [facility] Start: 11-27-2020 End: 11-27-2020 Home Care Visit 11/27/2020 Home Care Visit Home Health Services Ashley Mcgrath RN [facility] Start: 11-26-2020 End: 11-26-2020 Home Care Visit [facility] Start: 11-23-2020 End: 11-23-2020 Home Care Visit [facility] Start: 11-22-2020 End: 11-22-2020 Home Care Visit [facility] Start: 11-20-2020 End: 11-20-2020 Home Care Visit 11/20/2020 Home Care Visit Home Health Services Marcello Lewis PTA [facility] Start: 11-16-2020 End: 11-16-2020 Home Care Visit 11/16/2020 Home Care Visit Home Health Services Annalee Dyson PT [facility] Start: 11-14-2020 End: 11-14-2020 Hospital Encounter [facility] Comment on above: EXCISION HEEL SPUR RIGHT FOOT Start: 11-10-2020 End: 11-10-2020 Office Visit 11/10/2020 Office Visit Lab Digna Enriquez, KEVIN [address] [place] [address] [phone] [facility] Start: 11-01-2020 End: 11-01-2020 Office Visit 11/01/2020 Office Visit Pre-Admission Testing [facility] Preadmission Testing Start: 10-28-2020 Hepatocellular Carcinoma Screening Hepatocellular Carcinoma Screening [facility] Start: 10-28-2020 Liver Imaging (Hepatocellular Carcinoma Screening) Liver Imaging (Hepatocellular Carcinoma Screening) [facility] Start: 05-22-2020 Influenza vaccination given Sequential Influenza Vacci ne (#1) [facility] Start: 09-06-2019 End: 09-06-2019 Appointment 09/06/2019 Appointment Radiology Giorgi Thomas MD [address] [address] [phone] [facility] [address] Scan Start: 09-05-2019 End: 09-05-2019 Appointment 09/05/2019 Appointment Cardiology Giorgi Thomas MD [address] [address] [phone] [facility] Start: 08-22-2019 End: 08-22-2019 Office Visit 08/22/2019 Office Visit Cardiology Giorgi Thomas MD [address] [address] [phone] [facility] Start: 07-29-2019 End: 07-29-2019 Hospital Encounter [facility] Endoscopy Comment on above: COLONOSCOPY WITH ANESTHESIA Start: 05-22-2019 Influenza vaccination given [facility] Start: 05-02-2019 End: 05-02-2019 Office Visit 05/02/2019 Office Visit Dermatology Nafisa, Misael Mei MD [address] [place] [address] [phone] [facility] Start: 12-15-2018 Screening for malignant neoplasm of breast Mammography [facility] Start: 05-22-2018 Influenza vaccination SEQUENTIAL INFLUENZA VACCINE (#1) [facility] Start: 05-22-2017 Influenza vaccination SEQUENTIAL INFLUENZA VACCINE (#1) [facility] Start: 07-04-2015 Pneumococcal vaccination [facility] Start: 07-04-2015 Pneumococcal Vaccine: Ped or At-Risk (2 - PCV) Pneumococcal Vaccine: Ped or At-Risk (2 - PCV) [facility] Start: 07-04-2015 Pneumococcal Vaccine: Ped or At-Risk (2 of 2 - PCV) Pneumococcal Vaccine: Ped or At-Risk (2 of 2 - PCV) [facility] Start: 07-04-2015 Pneumococcal Vaccine: Pediatrics (0 to 5 Years) and At-Risk Patients (6 to 64 Years) (2 of 2 - PCV) Pneumococcal Vaccine: Pediatrics (0 to 5 Years) and At-Risk Patients (6 to 64 Years) (2 of 2 - PCV) [facility] Start: 2011 Administration of herpes zoster vaccine Zoster Vaccines (1 of 2) [facility] Start: 2011 Measurement of occult blood in single stool specimen FIT [facility] Start: 2011 Screening for malignant neoplasm of colon [facility] Start: 2011 Zoster vaccine hzv live for subcutaneous use ZOSTER (SHINGLES) VACCINE (1 of 2) [facility] Start: 2006 Colonoscopy COLORECTAL CANCER SCREENING DISCUSSION [facility] Start: 2006 Screening for malignant neoplasm of colon [facility] Start: 2001 Screening for malignant neoplasm of breast [facility] Start: 2001 Screening mammography [facility] Start: 1982 Screening for malignant neoplasm of cervix [facility] Start: 1980 Third diphtheria, tetanus and acellular pertussis (DTaP) vaccination TDAP (ADULT) [facility] Start: 1979 Hepatitis C antibody, confirmatory test Hepatitis C Screening [facility] Start: 1979 Hepatitis C screening Hepatitis C Screening [facility] Start: 1979 Tetanus + diphtheria + acellular pertussis vaccine (product) Tdap Booster [facility] Start: 1979 Tetanus vaccination TETANUS [facility] Start: 1977 COVID-19 Vaccine (1 of 2) COVID-19 Vaccine (1 of 2) [facility] Start: 1977 COVID-19 Vaccine (1) COVID-19 Vaccine (1) [facility] Start: 1976 HIV screening [facility] Start: 1973 Adolescent depression screening assessment Depression Screening (PHQ9) [facility] Start: 1973 COVID-19 Vaccine (1) COVID-19 Vaccine (1) [facility] Start: 1973 Depression screening using PHQ-9 (Patient Health Questionnaire 9) score Depression Screening (PHQ9) [facility] Start: 1967 Pneumococcal Vaccine: Ped or At-Risk (1 of 2 - PPSV23) Pneumococcal Vaccine: Ped or At-Risk (1 of 2 - PPSV23) [facility] Start: 1966 COVID-19 VACCINE (#1) COVID-19 VACCINE (#1) [facility] Start: 1966 COVID-19 Vaccine (1) COVID-19 Vaccine (1) [facility] Start: 1964 History and physical examination, annual for health maintenance Wellness Visit [facility] Start: 1962 MMR Vaccines (1 of 1 - Standard series) MMR Vaccines (1 of 1 - Standard series) [facility] Start: 1961 COVID-19 Vaccine (#1) COVID-19 Vaccine (#1) [facility] Start: 1961 Hepatitis C antibody, confirmatory test HEPATITIS C SCREENING [facility] Start: 1961 Medicare Annual Wellness Visit Medicare Annual Wellness Visit (AWV) [facility] Start: 1961 Protein mass conc Mammogram [facility] Start: 1961 Screening for malignant neoplasm of colon [facility] Start: 1961 Screening mammography Mammogram [facility] Start: 1961 HEPATITIS C SCREENING HEPATITIS C SCREENING [facility] Start: 1961 Screening colonoscopy COLONOSCOPY [facility] Start: 1961 End: 1961 Screening for malignant neoplasm of cervix PAP SMEAR [facility] Start: 1961 End: 1961 Tetanus vaccination [facility] End: 05-24-2023 [facility] Comment on above: One Time for 1 Occurrences starting 11/2022 until 05/24/2023 End: 05-23-2023 ALDOSTERONE ALDOSTERONE Lab Routine One Time Morning Lab for 1 Occurrences starting 05/23/2023 until 05/23/2023 [facility] Comment on above: One Time Morning Lab for 1 Occurrences s tarting 05/23/2023 until 05/23/2023 ALDOSTERONE ALDOSTERONE Lab Today 05/23/2023 5:25 AM [facility] End: 04-23-2023 Alpha-fetoprotein serum ALPHA FETOPROTEIN TUMOR MARKER Lab Routine Hepatic cirrhosis, unspecified hepatic cirrhosis type, unspecified whether ascites present (HCC) Abdominal pain, unspecified abdominal location 1 Occurrences starting 04/23/2022 until 04/23/2023 [facility] Comment on above: 1 Occurrences starting 04/23/2022 until 04/23/2023 Alpha-fetoprotein serum ALPHA FE TOPROTEIN TUMOR MARKER Lab Routine Hepatic cirrhosis, unspecified hepatic cirrhosis type, unspecified whether ascites present (HCC) Abdominal pain, unspecified abdominal location 04/23/2022 12:48 PM EDT [facility] Bacteria identified Cx Nom (Bld) Blood Culture Aerobic/Anaerobic Microbiology Routine 11/28/2020 5:23 PM EST [facility] Bacteria identified in Urine by Culture URINE CULTURE Microbiology Routine 01/30/2022 5:40 PM [facility] Work Phone: Bacteria identified in Urine by Culture URINE CULTURE Microbiology [facility] - Serum or Plasma BASIC METABOLIC PANEL Lab Routine Hepatic cirrhosis, unspecified hepatic cirrhosis type, unspecified whether ascites present (HCC) Abdominal pain, unspecified abdominal location 04/23/2022 12:48 PM EDT [facility] End: 04-23-2023 CBC panel - Blood by Automated count COMPLETE BLOOD COUNT Lab Routine Hepatic cirrhosis, unspecified hepatic cirrhosis type, unspecified whether ascites present (HCC) Abdominal pain, unspecified abdominal location 1 Occurrences starting 04/23/2022 until 04/23/2023 [facility] [employer] Work Phone: Comment on above: 1 Occurrences starting 04/23/2022 until 04/23/2023 CBC panel - Blood by Automated count COMPLETE BLOOD COUNT Lab Routine Hepatic cirrhosis, unspecified hepatic cirrhosis type, unspecified whether ascites present (HCC) Abdominal pain, unspecified abdominal location 04/23/2022 12:48 PM EDT [facility] End: 10-29-2021 Covid-19/Influenza Order Algorithm : COVID-19 Lab Test Only (OP in UTM) Dr. Digna Enriquez [phone] Covid-19/Influenza Order Algorithm : COVID-19 Lab Test Only (OP in UTM) Dr. Digna Enriquez [phone] Microbiology Routine Covid-19 1 Occurrences starting 10/29/2020 until 10/29/2021 [facility] Comment on above: 1 Occurrences starting 10/29/2020 until 10/29/2021 End: 11-05-2021 Covid-19/Influenza Order Algorithm : COVID-19 Lab Test Only (OP in UTM) Dr. Digna Enriquez [phone] Covid-19/Influenza Order Algorithm : COVID-19 Lab Test Only (OP in UTM) Dr. Digna Enriquez [phone] Microbiology Routine Contact with or exposure to viral disease 1 Occurrences starting 11/05/2020 until 11/05/2021 [facility] Comment on above: 1 Occurrences starting 11/05/2020 until 11/05/2021 End: 08-22-2020 CT angiography of thorax CT Angiogram Chest Imaging Routine MCGOWAN (dyspnea on exertion) 1 Occurrences starting 08/22/2019 until 08/22/2020 [facility] Comment on above: 1 Occurrences starting 08/22/2019 until 08/22/2020 CYTOLOGY REQUEST CYTOLOGY REQUES T Cytology Routine Other microscopic hematuria Urinary frequency Ordered: 10/01/2022 [facility] Comment on above: Ordered: 10/01/2022 End: 04-23-2023 Diabetes tracking panel HEMOGLOBIN A1C Lab Routine Hepatic cirrhosis, unspecified hepatic cirrhosis type, unspecified whether ascites present (HCC) Abdominal pain, unspecified abdominal location Abnormal finding of blood chemistry, unspecified 1 Occurrences starting 04/23/2022 until 04/23/2023 [facility] Comment on above: 1 Occurrences starting 04/23/2022 until 04/23/2023 Diabetes tracking panel HEMOGLOB IN A1C Lab Routine Hepatic cirrhosis, unspecified hepatic cirrhosis type, unspecified whether ascites present (HCC) Abdominal pain, unspecified abdominal location Abnormal finding of blood chemistry, unspecified 04/23/2022 12:48 PM EDT [facility] End: 08-22-2020 Echocardiography Echocardiogram complete Echocardiography Routine MCGOWAN (dyspnea on exertion) 1 Occurrences starting 08/22/2019 until 08/22/2020 [facility] Comment on above: 1 Occurrences starting 08/22/2019 until 08/22/2020 ESOPHAGOGASTRODUODEN OSCOPY AND COLONOSCOPY, GENERAL ANESTHESIA ESOPHAGOGASTRODUODENOSCOPY AND COLONOSCOPY, GENERAL ANESTHESIA Routine scheduled Rectal bleeding Change in bowel habits RUQ pain Esophageal dysphagia [facility] End: 05-25-2023 HCV RNA KRANTHI QUAL RFX TO QUANT HCV RNA KRANTHI QUAL RFX TO QUANT Lab Routine One Time for 1 Occurrences starting 05/25/2023 until 05/25/2023 [facility] Comment on above: One Time for 1 Occurrences starting 12/2022 until 05/25/2023 HCV RNA KRANTHI QUAL RFX TO QUANT HC V RNA KRANTHI QUAL RFX TO QUANT Lab Today 05/25/2023 5:00 AM EDT [facility] End: 04-23-2023 Hepatic function panel HEPATIC FUNCTION PANEL Lab Routine Hepatic cirrhosis, unspecified hepatic cirrhosis type, unspecified whether ascites present (HCC) Abdominal pain, unspecified abdominal location 1 Occurrences starting 04/23/2022 until 04/23/2023 [facility] Comment on above: 1 Occurrences starting 04/23/2022 until 04/23/2023 Hepatic function panel HEPATIC F UNCTION PANEL Lab Routine Hepatic cirrhosis, unspecified hepatic cirrhosis type, unspecified whether ascites present (HCC) Abdominal pain, unspecified abdominal location 04/23/2022 12:48 PM EDT [facility] Hepatitis A virus Ig M Ab [Presence] in Serum or Plasma by Immunoassay HEPATITIS A IGM AB Lab Today 01/30/2022 5:36 AM EDT [facility] End: 04-23-2023 Lipid 1996 panel - Serum or Plasma FULL LIPID PROFILE Lab Routine Hepatic cirrhosis, unspecified hepatic cirrhosis type, unspecified whether ascites present (HCC) Abdominal pain, unspecified abdominal location Abnormal findings on diagnostic imaging of other parts of digestive tract 1 Occurrences starting 04/23/2022 until 04/23/2023 [facility] Comment on above: 1 Occurrences starting 04/23/2022 until 04/23/2023 Lipid 1996 panel - S jina or Plasma FULL LIPID PROFILE Lab Routine Hepatic cirrhosis, unspecified hepatic cirrhosis type, unspecified whether ascites present (HCC) Abdominal pain, unspecified abdominal location Abnormal findings on diagnostic imaging of other parts of digestive tract 04/23/2022 12:48 PM EDT [facility] Price post-voiding re sidual urine&/bladder cap WA PRICE,POST-VOID RES,US,NON-IMAGING WA Charge Routine Other microscopic hematuria Urinary frequency Ordered: 10/01/2022 [facility] Comment on above: Ordered: 10/01/2022 End: 04-23-2023 Prothrombin time PROTHROMBIN TIME AND INR Lab Routine Hepatic cirrhosis, unspecified hepatic cirrhosis type, unspecified whether ascites present (HCC) Abdominal pain, unspecified abdominal location 1 Occurrences starting 04/23/2022 until 04/23/2023 [facility] Comment on above: 1 Occurrences starting 04/23/2022 until 04/23/2023 Prothrombin time PROTHROMBIN RYAN E AND INR Lab Routine Hepatic cirrhosis, unspecified hepatic cirrhosis type, unspecified whether ascites present (HCC) Abdominal pain, unspecified abdominal location 04/23/2022 12:48 PM EDT [facility] Radiography for bone length studies XR BONE LENGTH STUDY Imaging Routine Left knee pain, unspecified chronicity 08/19/2023 1:09 PM EST [facility] End: 05-23-2023 RENIN RENIN Lab Routine One Time Morning Lab for 1 Occurrences starting 05/23/2023 until 05/23/2023 [facility] Comment on above: One Time Morning Lab for 1 Occurrences s tarting 05/23/2023 until 05/23/2023 RENIN RENIN Lab Today 05/23/2023 5:25 AM EDT [facility] Standard ECG ECG ECG STAT 05/2022 4:02 PM EDT [facility] Work Phone: Standard ECG ECG ECG STAT 09/2022 4:39 PM EDT [facility] End: 08-11-2022 Surgical pathology procedure SURGICAL GI ANATOMIC PATHOLOGY Anatomic Pathology Routine RUQ pain Change in bowel habits Rectal bleeding Cirrhosis of liver without ascites, unspecified hepatic cirrhosis type (HCC) History of colonic polyps Esophageal dysphagia Grade I hemorrhoids Adenomatous polyp of sigmoid colon One time for 1 Occurrences starting 08/11/2022 until 08/11/2022 [facility] Work Phone: Comment on above: One time for 1 Occurrences starting 07/23 until 08/11/2022 End: 04-03-2021 US Upper Extremity Non Vascular Limited Right US Upper Extremity Non Vascular Limited Right Imaging Routine Lump of skin of upper extremity, right Once for 1 Occurrences starting 04/03/2021 until 04/03/2021 [facility] Comment on above: Once for 1 Occurrences starting 04/03/20 until 04/03/2021 US Upper Extremity N on Vascular Limited Right US Upper Extremity Non Vascular Limited Right Imaging Routine Lump of skin of upper extremity, right 04/03/2021 5:45 PM EDT [facility] XR Knee - left 4 Views XR KNEE L EFT 4+ VIEWS Imaging Routine Left knee pain, unspecified chronicity 08/19/2023 1:09 PM [facility] Work Phone: Immunizations Immunization Date Immunization Notes Care Provider [facility] 02-02-2024 tetanus toxoid, redu elaine diphtheria toxoid, and acellular pertussis vaccine, adsorbed Phe 1 [facility] 05-22-2023 influenza, injectabl e, quadrivalent, preservative free Lupillo Ocampo MD Work Phone: [facility] 05-29-2022 influenza, injectabl e, quadrivalent, preservative free Pse Anesthesia [facility] 06-14-2021 influenza, injectabl e, quadrivalent, preservative free Lupillo Ocampo MD Work Phone: [facility] 06-14-2021 influenza virus vaccine, unspecified formulation Jaime ROMERO Work Phone: [facility] 10-07-2020 hepatitis A and hepatitis B vaccine Lupillo Ocampo MD Work Phone: [facility] 10-07-2020 zoster vaccine recombinant Lupillo Ocampo MD Work Phone: [facility] 06-21-2020 influenza, injectabl e, quadrivalent, preservative free Lupillo Ocampo MD Work Phone: [facility] 06-21-2020 zoster vaccine recombinant Lupillo Ocampo MD Work Phone: [facility] 02-15-2020 hepatitis A and hepatitis B vaccine Lupillo Ocampo MD Work Phone: [facility] 08-22-2019 hepatitis A and hepatitis B vaccine Lupillo Ocampo MD Work Phone: [facility] 08-01-2019 Influenza, injectabl e, Madin Marlee Canine Kidney, preservative free, quadrivalent Lupillo Ocampo MD Work Phone: [facility] 07-16-2016 influenza, injectabl e, quadrivalent, contains preservative Av Bertrand MD Work Phone: [facility] 07-16-2016 influenza, injectabl e, quadrivalent, preservative free Lupillo Ocampo MD Work Phone: [facility] 07-25-2015 influenza, injectabl e, quadrivalent, preservative free Lupillo Ocampo MD Work Phone: [facility] Work Phone: 05-30-2015 hepatitis A vaccine, adult dosage Lupillo Ocampo MD Work Phone: [facility] 07-04-2014 influenza, seasonal, injectable, preservative free Lupillo Ocampo MD Work Phone: [facility] 07-04-2014 pneumococcal polysaccharide vaccine, 23 valent Lupillo Ocampo MD Work Phone: [facility] 09-23-2012 influenza virus vaccine, unspecified formulation Lupillo Ocampo MD Work Phone: [facility] 09-08-2007 influenza virus vaccine, unspecified formulation Lupillo Ocampo MD Work Phone: [facility] Work Phone: 09-08-2007 pneumococcal polysaccharide vaccine, 23 valent Lupillo Ocampo MD Work Phone: [facility] 07-22-2006 hepatitis A vaccine, adult dosage Lupillo Ocampo MD Work Phone: [facility] 07-22-2006 influenza virus vaccine, unspecified formulation Lupillo Ocampo MD Work Phone: [facility] 09-21-1998 pneumococcal polysaccharide vaccine, 23 valent Lupillo Ocampo MD Work Phone: [facility] Payers Date Payer Category Payer Private Health Insurance [facility] DUAL COMPLETE [facility] DUAL COMPLETE [id number] 2023-Present [address] [id number] [place] [id number] [id number] 2021 Medicare [id number] 2021 Medicare [id number] 2021 Medicaid [id number] 2019 Medicaid [employer] [facility] ED MEDICAID [employer] MED[employer]ID [id number] 2019-Present [id number] HANGE [address] [facility] [employer] xxxxxxxxxxxx 2018-Present [id number] 2015 Medicaid [id number] .[id number] 2014 Medicaid [id number] 2.16.840.1.309023.3.249.1 3 2014 Unknown [id number] 1961 Unknown [id number] 2.16.840.1.171039.3.579.2 .900 1961 Unknown [id number] 2.16.840.1.411633.3.579.2 .594 1961 Unknown [id number] 2.16.840.1.826361.3.579.2 .594 1961 Unknown [id number] 2.16.840.1.782084.3.579.2 .594 1961 Unknown [id number] 2.16.840.1.545113.3.579.2 .594 1961 Unknown [id number] 2.16.840.1.480535.3.579.2 .594 1961 Unknown [id number] 2.16.840.1.895747.3.579.2 .594 1961 Unknown [id number] 2.16.840.1.657287.3.579.2 .594 1961 Unknown [id number] 2.16.840.1.343324.3.579.2 .594 1961 Unknown [id number] 2.16.840.1.008012.3.579.2 .594 1961 Unknown [id number] 2.16.840.1.455016.3.579.2 .594 1961 Unknown [id number] 2.16.840.1.865655.3.579.2 .594 1961 Unknown [id number] 2.16.840.1.086443.3.579.2 .594 1961 Unknown [id number] 2.16.840.1.784062.3.579.2 .594 1961 Unknown [id number] 2.16.840.1.160715.3.579.2 .594 1961 Unknown [id number] 2.16.840.1.331176.3.579.2 .902 1961 Unknown [id number] 2.16.840.1.586878.3.579.2 .902 1961 Unknown [id number] 2.16.840.1.652595.3.579.2 .903 1961 Unknown [id number] 2.16.840.1.030418.3.579.2 .983 1961 Unknown [id number] 2.16.840.1.554370.3.579.2 .983 1961 Unknown [id number] 2.16.840.1.988916.3.579.2 .983 1961 Unknown [id number] 2.16.840.1.607384.3.579.2 .983 1961 Unknown [id number] 2.16.840.1.305470.3.579.2 .983 1961 Unknown [id number] 2.16.840.1.350945.3.579.2 .732 1961 Unknown [id number] 2.16.840.1.762235.3.579.2 .732 1961 Unknown [id number] 2.16.840.1.338736.3.579.2 .732 1961 Unknown [id number] 2.16.840.1.946911.3.579.2 .732 1961 Unknown [id number] 2.16.840.1.679548.3.579.2 .1245 1961 Unknown [id number] 2.16.840.1.174521.3.579.2 .1244 1961 Unknown [id number] 2.16.840.1.813426.3.579.2 .1243 1961 Unknown [id number] 2.16.840.1.275959.3.579.2 .903 1961 Unknown [id number] 2.16.840.1.419929.3.579.2 .903 1961 Unknown [id number] 2.16.840.1.577923.3.579.2 .903 Unknown [id number] Unknown [id number] Social History Date Type Detail Facility Start: 05-30-2016 End: 02-26-2024 Tobacco smoking status NHIS Former smoker [facility] Start: 1960 Sex Assigned At Not on file [facility] Start: 06-23-2019 End: 07-28-2019 Alcohol intake Lifetime non-drinker (finding) [facility] Start: 06-23-2019 End: 08-06-2022 History SDOH Alcohol Frequency 1 [facility] Start: 06-23-2019 End: 11-05-2022 Tobacco Comment quit 4 years ago [facility] Start: 11-01-2019 End: 02-26-2024 Tobacco use and exposure Never used [facility] Start: 01-17-2022 End: 02-26-2024 Exposure to SARS-CoV-2 (event) Not sure [facility] Start: 11-14-2020 End: 02-26-2024 Alcohol intake Ex-drinker (finding) [facility] Start: 11-14-2020 Alcohol Comment quit drinking 5 plus years ago [facility] Start: 02-18-1985 End: 09-21-2018 History of tobacco use Current smoker [facility] Start: 02-18-1985 End: 09-21-2018 History of tobacco use Cigarette Smoker [facility] Start: 08-07-2015 End: 02-26-2024 Cigarettes smoked current (pack per day) - Reported 0.3 [facility] Start: 01-27-2022 End: 01-27-2024 Alcohol intake Current drinker of alcohol (finding) [facility] Start: 01-27-2022 History SDOH Alcohol Comment occasionally [facility] Start: 1960 Sex Assigned At Female [facility] Start: 08-06-2022 History SDOH Social Connections Phone 3 [facility] Start: 08-06-2022 History SDOH Social Connections Get Together 2 [facility] Start: 08-06-2022 History SDOH Social Connections Living 4 [facility] Start: 08-06-2022 History SDOH Physical Activity DPW 0 [facility] Start: 08-06-2022 History SDOH Stress 5 [facility] Start: 08-06-2022 Education 14 [facility] Start: 11-28-2020 End: 02-26-2024 Alcohol Use Disorder Identification Test - Consumption [AUDIT-C] [facility] How often to you hav e a drink containing alcohol? Never [facility] Average Number of Drinks Not on file [facility] Start: 11-05-2022 Alcohol Comment Occasionally [facility] Start: 06-20-2019 Gender identity Identifies as female gender (finding) [facility] Start: 06-20-2019 Sexual orientation Heterosexual (finding) [facility] Start: 05-01-2023 Alcohol Comment LAST DRINK WAS 19304/30/23 [employer] [facility] Start: 04-24-2022 Sexual orientation Choose not to disclose [facility] Within the last year , have you been afraid of your partner or ex-partner? No [facility] Are you now , , , , never or living with a partner? [facility] How hard is it for y ou to pay for the very basics like food, housing, medical care, and heating Hard [facility] Do you feel stress - tense, restless, nervous, or anxious, or unable to sleep at night because your mind is troubled all the time - these days [OSQ] Very much [facility] (I/We) worried wheth er (my/our) food would run out before (I/we) got money to buy more. Sometimes true [facility] Medical Equipment Procedure Code Equipment Code Equipment Origin al Text Equipment Identifier Dates Mesh Progrip 20 X15cm - [id number] Start: 07-16-2016 Goals Date Patient Goal Desired Activity /State Personal health goal Comment on above: Formatting of this n ote might be different from the original. Patient will perform the resonant voice exercises independently as directed Patient will perform glides with decreased strain with 90% accuracy and minimal cueing Patient will maintain forward resonance at the syllable and phrase level with 90% accuracy and minimal cueing Patient will maintain forward resonance with connected speech with 90% accuracy and minimal cueing Patient will utilize low abdominal breathing with connected phrasing with 90% accuracy and minimal cueing Personal health goal Comment on above: Formatting of this n ote might be different from the original. Patient will perform the resonant voice exercises independently as directed Patient will perform glides with decreased strain with 90% accuracy and minimal cueing Patient will maintain forward resonance at the syllable and phrase level with 90% accuracy and minimal cueing Patient will maintain forward resonance with connected speech with 90% accuracy and minimal cueing Patient will utilize low abdominal breathing with connected phrasing with 90% accuracy and minimal cueing Clinical Notes 02-15-2021 to 02-26-2024 Assessment & Plan Note - Eduardo Ahmadi, DO - 02/26/2024 1:01 PM EDTAssessment & Plan Note - Eduardo Ahmadi DO - 02/26/2024 1:01 PM EDTEduardo Ahmadi DO - 02/26/2024 12:00 PM EDT Note Date & Type Note Facility 02-26-2024 Evaluation + Plan note Associated Problem(s): KELLY (obstructive sleep apnea) -Since has been several years since she has had a sleep study I will go ahead and order an in-home sleep study and we will see her back after completion [facility] Work Phone: 02-26-2024 Evaluation + Plan note Associated Problem(s): Current moderate episode of major depressive disorder without prior episode (Multi) -We discussed seeing a psychiatrist for depression and I will let her think about it and she will let me know next time when she comes back for a follow-up [facility] Work Phone: 02-26-2024 Evaluation + Plan note Associated Problem(s): Hepatic cirrhosis (Multi) -She will continue to follow with her cell plasterer Dr. Nargis Carter at [facility] Work Phone: 02-26-2024 Miscellaneous Notes Associated Problem(s): KELLY (obstructive sleep apnea) -Since has been several years since she has had a sleep study I will go ahead and order an in-home sleep study and we will see her back after completion Associated Problem(s): Current moderate episode of major depressive disorder without prior episode (Multi) -We discussed seeing a psychiatrist for depression and I will let her think about it and she will let me know next time when she comes back for a follow-up Associated Problem(s): Hepatic cirrhosis (Multi) -She will continue to follow with her cell plasterer Dr. Nargis Carter at [facility] Associated Problem(s): Vitamin D deficiency -Her last vitamin D level was only 21 so we will check it again and talk about vitamin D supplementation Associated Problem(s): Hyperglycemia -She has had a recent blood sugar determination which was at 115 so I will be checking a hemoglobin A1c Associated Problem(s): Disorder involving thrombocytopenia (CMS-HCC) -Her last CBC was performed on 01/27/2024 and her platelets were normal at 177 documented in this encounter [facility] Work Phone: 02-26-2024 Evaluation + Plan note Associated Problem(s): Vitamin D deficiency -Her last vitamin D level was only 21 so we will check it again and talk about vitamin D supplementation [facility] Work Phone: 02-26-2024 Evaluation + Plan note Associated Problem(s): Hyperglycemia -She has had a recent blood sugar determination which was at 115 so I will be checking a hemoglobin A1c [facility] Work Phone: 02-26-2024 Evaluation + Plan note Associated Problem(s): Disorder involving thrombocytopenia (CMS-HCC) -Her last CBC was performed on 01/27/2024 and her platelets were normal at 177 [facility] Work Phone: 02-26-2024 History of Present illness Narrative Subjective Patient ID: Micheline Fox is a 63 y.o. female who presents for [facility]. HPI She is here today to get established and she explains that she has had terrible insomnia for many years. She states that she has had difficulties getting a good night sleep and she has tried various medications including Remeron and other sleep aids. She was seeing a psychiatrist and also working with her primary care provider. She states that her last provider agreed to prescribe Valium. She also has obstructive sleep apnea and her last study we estimate was several years ago. I did explain to her right away that Valium as well as the other benzodiazepines are controlled substances and we do not use them regularly for any type of treatment. We definitely do not use them for sleep and I told her that taking Valium or the other benzodiazepines with untreated sleep apnea could even be potentially life-threatening. We talked about how sleep apnea causes breathing cessation and that the volume would compound this issue. We also reviewed her past medical history and I have reviewed recent laboratory test results. She suffers from cirrhosis and she does see a cell plasterer, at [facility]. She states that she has been doing okay with her liver disease. She was also successfully treated for hepatitis C. We also see that she has had issues with vitamin D deficiency and also renal insufficiency. I have decided to repeat some lab work but not to order all lab work because it has been done recently last month. She also unfortunately suffers from depression and we talked about seeing a psychiatrist for further evaluation and treatment. She will think about it. I did explain to her that I cannot give her the Valium and that I was sorry. I did offer other solutions such as treating her sleep apnea and working on sleep patterns. We even discussed going to the sleep clinic. I also told her that I would not be offended if she wanted to seek another healthcare provider but I did warn her that there are not many physicians that would agree to give Valium long-term for insomnia especially on top of sleep apnea. She states she would like to try to stay here and I do think she would benefit from having a fresh sleep study so we can see exactly what is going on with her sleep. She is agreeable. I will try to summarize everything in a problem based format . Review of Systems Constitutional: Positive for fatigue. Respiratory: Negative for cough, chest tightness, shortness of breath and wheezing. Cardiovascular: Negative for chest pain, palpitations and leg swelling. Gastrointestinal: Negative for abdominal pain, blood in stool, diarrhea, nausea and vomiting. Musculoskeletal: Negative for back pain. Objective Physical Exam Vitals and nursing note reviewed. Constitutional: General: She is not in acute distress. Appearance: Normal appearance. HENT: Head: Normocephalic and atraumatic. Eyes: Conjunctiva/sclera: Conjunctivae normal. Cardiovascular: Rate and Rhythm: Normal rate and regular rhythm. Heart sounds: Normal heart sounds. Pulmonary: Effort: No respiratory distress. Breath sounds: No wheezing. Abdominal: Palpations: Abdomen is soft. Tenderness: There is no abdominal tenderness. There is no guarding. Musculoskeletal: General: No swelling. Normal range of motion. Skin: General: Skin is warm and dry. Neurological: General: No focal deficit present. Mental Status: She is alert and oriented to person, place, and time. Psychiatric: Behavior: Behavior normal. Assessment/Plan Problem List Items Addressed This Visit ICD-10-CM Vitamin D deficiency E55.9 -Her last vitamin D level was only 21 so we will check it again and talk about vitamin D supplementation Relevant Orders Vitamin D 25-Hydroxy,Total (for eval of Vitamin D levels) KELLY (obstructive sleep apnea) G47.33 -Since has been several years since she has had a sleep study I will go ahead and order an in-home sleep study and we will see her back after completion Relevant Orders Home sleep apnea test (HSAT) Mixed hyperlipidemia E78.2 Insomnia, unspecified G47.00 Hyperglycemia R73.9 -She has had a recent blood sugar determination which was at 115 so I will be checking a hemoglobin A1c Relevant Orders Basic Metabolic Panel Hemoglobin A1C Hepatic cirrhosis (Multi) K74.60 -She will continue to follow with her cell plasterer Dr. Nargis Carter at [facility] Disorder involving thrombocytopenia (CMS-HCC) - Primary D69.6 -Her last CBC was performed on 01/27/2024 and her platelets were normal at 177 Current moderate episode of major depressive disorder without prior episode (Multi) F32.1 -We discussed seeing a psychiatrist for depression and I will let her think about it and she will let me know next time when she comes back for a follow-up Obesity, morbid (Multi) E66.01 Eduardo Ahmadi DO documented in this encounter [facility] Work Phone: 02-26-2024 Instructions Eduardo Ahmadi DO - 02/26/2024 12:00 PM EDT As we discussed I have ordered a few labs as a follow-up to what we had covered today. I would like to check a sugar test called a hemoglobin A1c because your blood sugar was elevated. We also saw that your vitamin D level was low so I want to recheck your vitamin D. We also see that you had some issues it seems with your kidneys so we will be checking a blood test to assess your kidney health. As far as your sleep disturbance I know that you heard me well and you understand that I cannot give benzodiazepines such as Valium, Xanax, Ativan because they are not indicated for sleep and they are considered highly addictive and controlled substances. Also more importantly they can make sleep apnea much worse and sometimes even be life-threatening. As we discussed you are agreeable to doing a home sleep study so we can see how bad your sleep apnea is. Please understand that if you have significant sleep apnea this is very disruptive to your entire life. It does not allow you to get restful sleep no matter how long you spend in bed and even if you take a nap you cannot get restful sleep. Untreated sleep apnea can lead to memory loss, severe depression, weight gain, and heart and lung problems over time. We will order a sleep study to be done in your home and once it is completed I will see you back If you change your mind about seeing another provider I am not offended as I want you to be happy and feel like you connect well with the provider but please let me know if you do decide to see somebody else Please also let me know if you would like to be referred to psychiatry documented in this encounter [facility] Work Phone: 02-19-2024 Procedure note Associated Ord er(s): LIVER ELASTOGRAPHY Images from the original note were not included. Velocity Controlled Transient Elastography (Fibroscan) National Coverage Specialist: Nikhil Lawson Attending: Jaime Carter APRN-CNP Patient was identified via name and . Micheline FOX presents to endoscopy suite for VCTE. Referring Provider: HEATHER Johnson Diagnosis: Hepatic cirrhosis, unspecified hepatic cirrhosis type (HCC) (Primary Diagnosis) [[id number]] Fatty liver Two Pt identifiers where confirmed. Pt procedure and orders verified verbal consent obtained. Probe used: XL Pre-procedure Checklist Presence of ascites? No Fasting for at least three hours? Yes Alcohol use? No History of right heart failure? No LFT's (last 3 years, up to 5 values) T Prot Albumin D Bili T Bili Alk Phos ALT AST 01/27/24 1505 6.8 4.4 0.23 1.0 59 38 31 04/23/22 1248 6.4 4.6 0.20 1.0 68 35 29 ] Platelet Date Value Ref Range Status 01/27/2024 177 150 - 400 K/uL Final 04/23/2022 137 (L) 150 - 400 K/uL Final 09/17/2011 93 (L) 150 - 400 K/uL Final 04/30/2011 103 (L) 150 - 400 K/uL Final Findings: Elastography Median kPa: 16.1 IQR/med (%): 18 Controlled Attenuation Parameter (CAP) Median (dB/m): 202 IQR : 28 Interpretation: Based on LSM of 16.1 KPa, the patient has evidence of cirrhosis (F4) with Grade 0 steatosis. If F3 or F4 fibrosis, please formally refer patient to hepatology. Interpreting Provider: Jaime Carter APRN-CNP [facility] 02-19-2024 Procedure note Associated Ord er(s): LIVER ELASTOGRAPHY Images from the original note were not included. Velocity Controlled Transient Elastography (Fibroscan) National Coverage Specialist: Nikhil Lawson Attending: Jaime Carter APRN-CNP Patient was identified via name and . Micheline FOX presents to endoscopy suite for VCTE. Referring Provider: HEATHER Johnson Diagnosis: Hepatic cirrhosis, unspecified hepatic cirrhosis type (HCC) (Primary Diagnosis) [[id number]] Fatty liver Two Pt identifiers where confirmed. Pt procedure and orders verified verbal consent obtained. Probe used: XL Pre-procedure Checklist Presence of ascites? No Fasting for at least three hours? Yes Alcohol use? No History of right heart failure? No LFT's (last 3 years, up to 5 values) T Prot Albumin D Bili T Bili Alk Phos ALT AST 01/27/24 1505 6.8 4.4 0.23 1.0 59 38 31 04/23/22 1248 6.4 4.6 0.20 1.0 68 35 29 ] Platelet Date Value Ref Range Status 01/27/2024 177 150 - 400 K/uL Final 04/23/2022 137 (L) 150 - 400 K/uL Final 09/17/2011 93 (L) 150 - 400 K/uL Final 04/30/2011 103 (L) 150 - 400 K/uL Final Findings: Elastography Median kPa: 16.1 IQR/med (%): 18 Controlled Attenuation Parameter (CAP) Median (dB/m): 202 IQR : 28 Interpretation: Based on LSM of 16.1 KPa, the patient has evidence of cirrhosis (F4) with Grade 0 steatosis. If F3 or F4 fibrosis, please formally refer patient to hepatology. Interpreting Provider: Jaime Carter APRN-CNP documented in this encounter [facility] 02-01-2024 Note 8:40AM 02-01-2024 La te Addendum: SW received referral on Pt and unable to locate by phone. SW will send f/u letter to assist w/ services and resources. SW waiting to hear back from Pt within 30 days from referral. FLORENCIO Olivares, BUILDING REPAIR MAINTENANCE SUPERVISOR Outpatient SW [phone] [facility] 02[facility]01-[facility] History of Present illness Narrative 8:40AM 02-01-2024 Late Addendum: SW received referral on Pt and unable to locate by phone. SW will send f/u letter to assist w/ services and resources. SW waiting to hear back from Pt within 30 days from referral. FLORENCIO Olivares, BUILDING REPAIR MAINTENANCE SUPERVISOR Outpatient SW [phone] Pt's risk score is 76%. SW received referral for Pt. SW called and left message. SW waiting to hear back from Pt. SW will continue to assist Pt as needed. FLORENCIO Olivares, BUILDING REPAIR MAINTENANCE SUPERVISOR Outpatient SW [phone]' documented in this encounter [facility] 01-28-2024 Note Pt's risk score is 7 6%. SW received referral for Pt. SW called and left message. SW waiting to hear back from Pt. SW will continue to assist Pt as needed. FLORENCIO Olivares, BUILDING REPAIR MAINTENANCE SUPERVISOR Outpatient SW [phone]' [facility] 01-28-2024 History of Present illness Narrative Pt's risk score is 76%. SW received referral for Pt. SW called and left message. SW waiting to hear back from Pt. SW will continue to assist Pt as needed. Sage Momin, FLORENCIO, BUILDING REPAIR MAINTENANCE SUPERVISOR Outpatient SW [phone]' documented in this encounter [facility] 01-27-2024 History of Present illness Narrative Images from the original note were not included. Hepatology Clinic Visit Patient name: Micheline FOX : 1960 Date: 01/27/24 Referring Provider: Self Patient Subjective Chief Complaint: I had the pleasure of speaking with Micheline FOX, for chief complaint of cirrhosis(see problem-based documentation below for details). A copy of today's note will be communicated to referring doctor via the electronic medical record or fax. Referring Provider: Self Patient History of Present Illness: Micheline FOX is a 63 year old female who presents for management of compensated HCV cirrhosis. Referring Provider: Self Patient. Last appt 04/2022. Patient reports she has not followed up sooner due to transportation difficulties and anxiety. Patient has PMhx of HCV (Finished 24 weeks of Sofosbuvir and Ribavirin, SVR achieved), obesity s/p gastric bypass (in the 80s), cholecystectomy, hysterectomy, hernia repair with mesh, compensated cirrhosis and KELLY (not compliant with cpap). She does not use drugs or alcohol. CT 11/2023 with unremarkable liver, however limited evaluation given w/o contrast. Patient reporting insomnia, mostly due to anxiety about health. There is no history of confusion, day/night cycle reversal, abdominal distention, leg swelling, hematemesis, coffee ground emesis, hematochezia, jaundice, ascites or melena. FH: There is no history of liver cancer, cirrhosis or other liver related disease. No autoimmune. SH: No drugs/alcohol Family History family history includes Heart Disease in her father. Social History Social History Tobacco Use Smoking status: Former Current packs/day: 0.00 Average packs/day: 0.5 packs/day for 15.0 years (7.5 ttl pk-yrs) Types: Cigarettes Start date: 07/03/1999 Quit date: 07/03/2014 Years since quittin.5 Smokeless tobacco: Never Substance Use Topics Alcohol use: Yes Comment: socially Data Review All data reviewed and updated as appropriate Prior additional labs: Component 04/27/2020 Hepatitis C RNA Quant Not Detected HBsAg Non-Reactive Hep B Surface Ab 156.2 Hep B Core Ab Total Nonreactive Hep A Ab Total Reactive (A) Hep A Ab IgM Nonreactive Computed MELD 3.0 unavailable. Necessary lab results were not found in the last year. Computed MELD-Na unavailable. Necessary lab results were not found in the last year. Prior liver imagin11/2023 CT A/P: FINDINGS: Evaluation is limited by lack of intravenous contrast. Visualized portion of the lung bases are unremarkable. Gastric bypass changes noted. The liver, spleen, kidneys, adrenal glands and pancreas are unremarkable. Gallbladder absent. No abdominal aortic aneurysm. 04/2022 CT A/P: Hepatobiliary: The liver has a nodular contour consistent with cirrhosis. No focal hepatic lesion seen. Mild hepatomegaly. Cholecystectomy. IMPRESSION: 1. Mild ground glass/reticular opacities in the right lower lobe suggestive of a resolving/mild infectious process. 2. Cirrhosis with mild hepatomegaly and splenomegaly. 09/2020 CT A/P: 1. Redemonstration postoperative changes from prior ventral hernia repair with mesh. Residual scarring with possible trace fluid/seroma may be present. No evidence of hernia recurrence. 2. Hepatic morphology suggestive of cirrhosis. Recommend correlation with liver function tests. 3. Splenomegaly. 4. Status post cholecystectomy, vertical banded gastroplasty, and hysterectomy. 5. Ancillary findings as described above. 10/2015 Fibroscan Findings: Evidence of advanced fibrosis / cirrhosis (F4) 04/2020 US Liver: 1. Cirrhotic liver morphology. Likely superimposed moderate steatosis. No focal lesions to suggest HCC. 2. Status post cholecystectomy without biliary dilatation. 3. Nonvisualization of the pancreas due to overlying bowel gas Shadowing. 2008 Liver bx: Chronic hepatitis C, with mild lobular / mild to moderate portal / mild interface inflammatory activity (Grade 2/4) and cirrhosis (Grade 4/4). No steatosis is noted. Prior endoscopies: 07/2022 EGD/Colon: DUODENUM: Bulb and descending portion appeared normal. STOMACH: Pyloric channel, body, fundus and cardia, including retroflexed views appear normal. Evidence of prior sleeve gastrectomy. Scattered areas of patchy erythematous mucosa in the antrum. Mosaic mucosal pattern noted. Random biopsies taken to r/o H. Pylori (Bottle A). No varices noted. ESOPHAGUS: Diaphragmatic hiatus was 38 cm from incisors and GE junction (upper margin of gastric folds) was at 36 cm from incisors. Squamocolumnar junction was at 36 cm from incisors. Mucosa appeared normal. Random biopsies taken from distal and mid-esophagus to r/o EoE (Bottle B). No varices noted. FINDINGS: Moderate amount of yellow semi-solid to liquid stool requiring extensive washing and suctioning. TI: intubated with normal appearing mucosa. Cecum: Normal. Ascending Colon: Normal. Hepatic Flexure: Normal. Transverse Colon: Normal. Splenic Flexure: Normal. Descending Colon: Normal. Sigmoid Colon: A ~ 11-12 mm semi-pedunculated polyp removed en bloc with hot snare and retrieved with suction (Bottle C). Rectum: Normal. Retroflexed Views: Rectum showed internal hemorrhoids. IMPRESSION: 1. Mild non-erosive antral gastritis. 2. Endoscopic evidence of probable sleeve gastrectomy. 3. Small (2 cm) hiatal hernia. 4. Large sigmoid colon polyp removed. 5. Moderate-sized internal hemorrhoids. RECOMMENDATIONS: 1. Repeat colonoscopy for surveillence in 3 years. 2. Await biopsies for H. pylori, treat with quadruple therapy for 14 days if positive. Recommend subsequent confirmation of eradication with breath test at least 4 weeks after treatment completion. Patient should be off PPI for 2 weeks prior to breath test or stool Antigen testing. 3. F/U eosphageal biopsies. 4. F/U in GI clinic with Eusebia Jones. Histology: A. Gastric, Biopsy Gastric mucosa, no evidence of active gastritis, intestinal metaplasia, granulomas, dysplasia, or neoplasm; no Helicobacter pylori noted. B. Esophagus, Biopsy Squamous mucosa, no evidence of active, eosinophilic or reflux esophagitis, intestinal metaplasia, or dysplasia. C. Sigmoid Colon, Polyp Tubular adenoma of colon, multiple fragments. Histology tissue specimen was identified as adenoma . Recommendation: 1. Unchanged from above. 10/2020 EGD: Impression: -Normal esophagus. -A vertical banded gastroplasty was found, characterized by a non-intact appearance. -There is a small fistula connection from the fundus. -Normal second portion of the duodenum. 07/2019 Colonoscopy: -The entire examined colon is normal. -No specimens collected Recommendation: -Repeat colonoscopy in 5 years for surveillance. (hx of polyps) Lab Review: CBC (last 3 years, up to 5 values) WBC RBC Hgb Hct MCV RDW Plt 04/23/22 1248 5.8 4.94 15.2 43.7 89 13.4 137 Basic Metabolic Panel Na K Cl CO2 Gap Glu BUN Cr Ca 04/23/22 1248 139 3.3 100 28 14 111 14 1.33 9.6 LFT's (last 3 years, up to 5 values) T Prot Albumin D Bili T Bili Alk Phos ALT AST 04/23/22 1248 6.4 4.6 0.20 1.0 68 35 29 PT/INR None Alpha Fetoprotein (ng/mL) Date Value 04/30/2011 2.8 AFP (ng/mL) Date Value 04/23/2022 2.6 Past Medical History Past Medical History: Diagnosis Date Degeneration of cervical intervertebral disc Degeneration of lumbar or lumbosacral intervertebral disc Hernia of other specified sites of abdominal cavity without mention of obstruction or gangrene R inguinal hernia Past Surgical History Past Surgical History: Procedure Laterality Date ARTHRODESIS, POSTERIOR TECHNIQUE, ATLAS-AXIS 1999 ARTHRODESIS, POSTERIOR/POSTEROLATERAL TECHNIQUE, SINGLE INTERSPACE, LUMBAR 1999 ARTHRODESIS, POSTERIOR/POSTEROLATERAL TECHNIQUE, SINGLE INTERSPACE, LUMBAR 2000 COLONOSCOPY AND ESOPHAGOGASTRODUODENOSCOPY N/A 06/25/2015 Procedure: ESOPHAGOGASTRODUODENOSCOPY AND COLONOSCOPY; Surgeon: Ashly Faria MD; Location: [facility]; Service: Gastroenterology UNLISTED PROCEDURE, FOOT/TOES 1999 nerve repair VAGINAL HYSTERECTOMY; W/TOTAL/PARTIAL VAGINECTOMY; W/REPAIR, ENTEROCELE 1987 Allergies is allergic to fentanyl, codeine, latex, penicillin [penicillin g potassium], and penicillins. Medications Current Outpatient Medications Medication Sig Dispense Refill esomeprazole (NEXIUM) 40 MG capsule take 1 capsule by mouth daily THIRTY MINUTES BEFORE BREAKFAST 30 Capsule 3 sucralfate (CARAFATE) 1 GM tablet Take 1 Tablet by mouth 4 times daily. For upper abdominal pain. 120 Tablet 0 albuterol (PROVENTIL HFA) INHALATION HFA inhaler (VENTOLIN,PROAIR,PROVENTIL) 90mcg Inhale 2 Puffs by mouth. metoprolol (TOPROL-XL) 25 mg XL tablet Take 25 mg by mouth. chlorhexidine (PERIDEX) 0.12 % oral solution Take 15 mL by mouth 2 times daily. 1 Bottle 2 Docusate Sodium (DOC-Q-LACE ORAL) Take by mouth as needed. amLODIPine (NORVASC) 2.5 MG tablet Take 2.5 mg by mouth daily. lisinopril (ZESTRIL) 10 MG tablet Take 10 mg by mouth daily. ammonium lactate (LAC-HYDRIN) 12 % lotion Apply topically 2 times daily. Apply thin layer to affected area. 1 Bottle 3 Sofosbuvir (SOVALDI) 400 MG TABS tablet Take 1 Tablet by mouth daily. 30 Tablet 5 ribavirin (REBETOL) 200 MG capsule Take 2 Capsules by mouth 2 times daily. 150 Capsule 5 topiramate (TOPAMAX) 25 MG tablet Take 25 mg by mouth 2 times daily. trazodone 100 MG tablet Take 100 mg by mouth. GARLIC ORAL Take by mouth. Multiple Vitamin (MULTI-VITAMIN ORAL) Take by mouth daily. aspirin 81 MG tablet Take 81 mg by mouth daily. buPROPion (WELLBUTRIN XL) 300 MG XL tablet Take 300 mg by mouth daily. buPROPion ER (WELLBUTRIN XL) 150 MG XL tablet Take 150 mg by mouth daily. FLUoxetine HCl (PROZAC ORAL) Take 60 mg by mouth daily. furosemide (LASIX) 20 MG tablet Take 20 mg by mouth daily. lisinopril (ZESTRIL) 20 MG tablet Take 20 mg by mouth daily. amLODIPine (NORVASC) 2.5 MG tablet Take 2.5 mg by mouth daily. TYLENOL/CODEINE #3 300-30 MG OR TABS 1 OR 2 TABLETS EVERY 4 TO 6 HOURS NEEDED FOR PAIN 28 0 TRIAMCINOLONE ACETONIDE 0.1 % EX OINT apply bid to area affected 240gm 3 HYDROXYZINE HCL 25 MG OR TABS 1 to 2 tablets qhs 60 2 AMILORIDE-HYDROCHLOROTHIAZIDE 5-50 MG OR TABS 1 TABLET DAILY 30 3 MOTRIN 800 MG OR TABS 1 TABLET 3 TIMES DAILY 90 2 MOTRIN 800 MG OR TABS 1 TABLET every four hours XANAX OR None Entered HYDROCHLOROTHIAZIDE 25 MG OR TABS 1 TABLET DAILY ZOLOFT TABS 100 MG OR 1 TAB PO QD No current facility-administered medications for this visit. REVIEW OF SYSTEMS Review of Systems Constitutional: Positive for malaise/fatigue. Negative for weight loss. Eyes: Negative. Respiratory: Negative for shortness of breath. Cardiovascular: Negative for chest pain and leg swelling. Gastrointestinal: Negative for blood in stool, melena and vomiting. No hematemesis, or confusion Skin: Negative. Endo/Heme/Allergies: Does not bruise/bleed easily. Psychiatric/Behavioral: Positive for depression. Negative for memory loss and substance abuse. The patient is nervous/anxious and has insomnia. All other systems reviewed and are negative. Objective Vital Signs BP 136/74 (BP Location: right arm, BP position: sitting, Cuff Size: adult) Pulse 54 Temp 98.4 F (36.9 C) (Temporal) Resp 16 Wt 260 lb (117.9 kg) SpO2 93% BMI 43.27 kg/m BMI: 43.27 PHYSICAL EXAM Physical Exam Vitals and nursing note reviewed. Constitutional: Appearance: Normal appearance. She is not toxic-appearing or diaphoretic. Eyes: General: No scleral icterus. Conjunctiva/sclera: Conjunctivae normal. Cardiovascular: Rate and Rhythm: Normal rate and regular rhythm. Pulmonary: Effort: Pulmonary effort is normal. No respiratory distress. Breath sounds: No wheezing. Abdominal: General: Bowel sounds are normal. There is no distension. Palpations: Abdomen is soft. There is no mass. Tenderness: There is no abdominal tenderness. Comments: No jaundice, scleral icterus, or asterixis Musculoskeletal: General: Normal range of motion. Skin: General: Skin is warm and dry. Neurological: Mental Status: She is alert and oriented to person, place, and time. She is not disoriented. Psychiatric: Mood and Affect: Mood is anxious. Behavior: Behavior is not agitated. Assessment / Plan Orders Placed This Encounter Procedures US LIVER/GALL BLADDER/PANCREAS Complete Blood Count Basic Metabolic Panel Hepatic Function Panel Prothrombin Time & INR Alpha Fetoprotein Tumor Marker Fibroscan BEHAVIORAL SLEEP MEDICINE SERVICE REQUEST SOCIAL WORK SERVICE REQUEST [facility] WEIGHT MANAGEMENT SERVICE REQUEST 1. Hepatic cirrhosis, unspecified hepatic cirrhosis type, unspecified whether ascites present (HCC) 2. Assistance needed with transportation 3. Anxiety about health 4. Insomnia, unspecified type 5. Fatty liver Follow up: Follow up in about 6 months (around 07/29/2024) for in-person visit. #Compensated Cirrhosis (Comprehensive Plan) Etiology of cirrhosis: HCV (cured)/fatty liver -referred weight management Transplant Candidate: Computed MELD 3.0 unavailable. Necessary lab results were not found in the last year. Computed MELD-Na unavailable. Necessary lab results were not found in the last year. -Update lab work including AFP and MELD Na/CP score accordingly; need for transplant referral -Not referred (low MELD) Ascites: -of no clinical significance Screening for Portal HTN/esohpageal varices: -EGD 08/11/22 no EV/GV -update labs and repeat Fibroscan to determine risk for CSPH Hepatocellular carcinoma surveillance: -US/AFP q 6 months, last imaging 04/2022, no suspicious hepatic lesions -overdue, ordered, discussed indication and stressed importance Hepatic encephalopathy: -No covert/ overt HE noted Hepatitis Vaccination status: -Hepatitis Vaccination status:vaccinate if not immune. -immune HAV/HBV Substance dependence: -Counseled on substance abuse and alcohol use-stressed abstinence, referral if indicated #Anxiety about Health #Insomnia -refer behavioral sleep medicine #Transportation Difficulties -refer SW Preventative: Screening colonoscopy: due 07/2025 Influenza Vaccine: annually PNA Vaccine: per PCP Preventive Measures Follow with PCP regarding age related screening measures Time-based billing justifications: Reviewing (chart, labs, and other clinical notes) Obtaining history (or reviewing separately obtained history) Patient visit (including performing a medically appropriate exam) Counseling/educating the patient/family/caregiver Ordering (medications, tests, procedures - including independent interpretation of results when not reported separately) Referring/communicating with other health care management coordinator - when not reported separately Charting in Epic Total length of time 60 (minutes) of the encounter and more than 50% was spent counseling the patient. Preventative: Follow with PCP regarding age related screening measures. Follow up: Follow up in about 6 months (around 07/29/2024) for in-person visit. Sincerely, HEATHER Johnson [facility] Division of Gastroenterology & Hepatology 01/27/24 2:52 PM GI clinic documented in this encounter [facility] 12-19-2023 Emergency department Note Patient educated on risks of leaving against medical advise. Patient verbalized understanding and stated that she would like to signs AMA paperwork. This RN obtained AMA paperwork and witness the patient sign it. AMA paperwork placed in medical records. [facility] 12-19-2023 Emergency department Note Patient educated on risks of leaving against medical advise. Patient verbalized understanding and stated that she would like to signs AMA paperwork. This RN obtained AMA paperwork and witness the patient sign it. AMA paperwork placed in medical records. This RN attempted to place IV x2 attempts. Both attempts unsuccessful. Provider and board hammer operator notified. documented in this encounter [facility] 12-19-2023 Emergency department Note This RN attempted to place IV x2 attempts. Both attempts unsuccessful. Provider and board hammer operator notified. [facility] [facility] 07[facility] History of Present illness Narrative Micheline Donald Fox 1960 CC: 63 y.o. is a she with left knee pain. Chief Complaint Patient presents with Left Knee - Pain . HPI: Knee Pain: Patient presents to the office today with complaints of left knee pain. She reports that approximately 3 months ago she started having knee pain without any known injury. She has pain along the medial or inside the knee. She denies any knee instability. She had been seen by her primary care physician who actually ordered an MRI for the left knee. She is taking OTC pain medications as needed although they are not providing her with adequate pain relief. She has difficulty with ambulation for long period of time. Difficulty with stairs and decreased range of motion in that knee. PMH: Allergies Allergen Reactions Ct: Iodinated Contrast- Oral And Iv Dye Hives and Itching Toradol [Ketorolac] Hives and Other (See Comments) Pain Codeine Hives Fentanyl Itching Pt does not recall any reaction Latex Hives and Rash Penicillin Itching and Rash Current Outpatient Medications: ALPRAZolam (XANAX) 0.5 MG tablet, Take 1 (one) tablet (0.5 mg total) by mouth 2 (two) times a day as needed for anxiety (Days supply per fill: 30) ., Disp: 60 tablet, Rfl: 0 atorvastatin (LIPITOR) 40 MG tablet, Take 1 (one) tablet (40 mg total) by mouth daily with dinner ., Disp: , Rfl: brexpiprazole (Rexulti) 2 mg tablet, Take 1 (one) tablet (2 mg total) by mouth daily ., Disp: 30 tablet, Rfl: 3 busPIRone (BUSPAR) 7.5 MG tablet, Take 1 (one) tablet (7.5 mg total) by mouth 2 (two) times a day ., Disp: 60 tablet, Rfl: 3 carvediloL (COREG) 12.5 MG tablet, Take 1 (one) tablet (12.5 mg total) by mouth 2 (two) times a day with meals ., Disp: , Rfl: doxepin (SINEQUAN) 50 MG capsule, Take 1 (one) capsule (50 mg total) by mouth nightly ., Disp: 30 capsule, Rfl: 3 hydroCHLOROthiazide (HYDRODIURIL) 25 MG tablet, Take 1 (one) tablet (25 mg total) by mouth daily ., Disp: , Rfl: ipratropium-albuteroL (DUO-NEB) 0.5-2.5 mg/3 ml nebulizer, Take 3 mL by nebulization every 6 (six) hours as needed ., Disp: , Rfl: losartan (COZAAR) 50 MG tablet, Take 1 (one) tablet (50 mg total) by mouth 2 (two) times a day ., Disp: , Rfl: nystatin (MYCOSTATIN) powder, Apply topically 2 (two) times a day ., Disp: 15 g, Rfl: 0 tiZANidine (ZANAFLEX) 4 MG tablet, Take 1 (one) tablet (4 mg total) by mouth 3 (three) times a day as needed ., Disp: , Rfl: traZODone (DESYREL) 50 MG tablet, Take 1 (one) tablet (50 mg total) by mouth nightly as needed for sleep ., Disp: 30 tablet, Rfl: 3 albuterol 90 mcg/actuation inhaler, Inhale 2 (two) puffs every 6 (six) hours as needed for wheezing . (Patient taking differently: Inhale 1 (one) puff every 6 (six) hours as needed for wheezing .), Disp: 18 g, Rfl: 0 doxepin (SINEQUAN) 25 MG capsule, take 1 capsule by mouth nightly, Disp: 30 capsule, Rfl: 0 ondansetron (ZOFRAN) 8 MG tablet, Take 0.5 (one-half) tablet (4 mg total) by mouth every 8 (eight) hours as needed ., Disp: 11 tablet, Rfl: 0 Past Medical History: Diagnosis Date Arthritis Asthma Cirrhosis (HCC) Hepatitis C History of cardiac cath 07/01/2019 Hypertension PONV (postoperative nausea and vomiting) most recent Sleep apnea, obstructive Does not use machine Past Surgical History: Procedure Laterality Date BACK SURGERY 1999 Hardware L4-5 CARDIAC CATHETERIZATION 04/2015 CHOLECYSTECTOMY COLONOSCOPY N/A 07/29/2019 Procedure: COLONOSCOPY; Surgeon: Joe Colón MD; Location: [facility]; Service: Gastroenterology EGD N/A 07/29/2019 Procedure: ESOPHAGOGASTRODUODENOSCOPY; Surgeon: Joe Colón MD; Location: [facility]; Service: Gastroenterology ESOPHAGOGASTRODUODENOSCOPY 11/13/2020 Isael Hall-OSLeandra GASTRIC BYPASS 1996 LEFT HEART CATH N/A 07/08/2019 Procedure: Left Heart Cath; Surgeon: Hari Acosta MD; [facility]; Service: Cardiovascular HEEL SPUR RESECTION Right 11/14/2020 Procedure: EXCISION HEEL SPUR RIGHT FOOT C-ARM; Surgeon: Digna Enriquez DPM; Location: Main OR; Service: Podiatry HERNIA REPAIR 07/16/2016 Jake Hurtado-OSLeandra HYSTERECTOMY 1988 NECK SURGERY 1999 C 4-5 TONSILLECTOMY Social History Socioeconomic History Marital status: Tobacco Use Smoking status: Former Packs/day: 0 Types: Cigarettes Quit date: 2019 Years since quittin.7 Smokeless tobacco: Never Tobacco comments: quit 4 years ago Vaping Use Vaping Use: Never used Substance and Sexual Activity Alcohol use: Yes Alcohol/week: 5.0 standard drinks of alcohol Types: 5 Cans of beer per week Comment: LAST DRINK WAS 192904/30/23 [employer] Drug use: Never The patient's past medical history, surgical history, social history, family history, medications and allergies were reviewed with the patient today and are available in the chart for further review. ROS: Review of Systems Constitutional: Negative for activity change and fatigue. HENT: Negative for congestion, hearing loss and trouble swallowing. Eyes: Negative for visual disturbance. Respiratory: Negative for chest tightness and shortness of breath. Cardiovascular: Negative for chest pain and palpitations. Gastrointestinal: Negative for abdominal pain, diarrhea, nausea and vomiting. Endocrine: Negative for polydipsia, polyphagia and polyuria. Genitourinary: Negative for decreased urine volume, difficulty urinating and hematuria. Musculoskeletal: Positive for arthralgias, gait problem, joint swelling and myalgias. Skin: Negative for color change, rash and wound. Allergic/Immunologic: Negative for immunocompromised state. Neurological: Negative for dizziness, weakness, light-headedness and numbness. Hematological: Does not bruise/bleed easily. Psychiatric/Behavioral: Negative for confusion and sleep disturbance. The patient is not nervous/anxious. PE: Physical Exam Constitutional: Appearance: She is well-developed. HENT: Head: Normocephalic. Eyes: Pupils: Pupils are equal, round, and reactive to light. Cardiovascular: Rate and Rhythm: Normal rate and regular rhythm. Pulmonary: Effort: Pulmonary effort is normal. Breath sounds: Normal breath sounds. Abdominal: General: Bowel sounds are normal. Palpations: Abdomen is soft. Musculoskeletal: General: Swelling and tenderness present. Normal range of motion. Cervical back: Normal range of motion and neck supple. Left knee: No effusion. Instability Tests: Medial Marlen test negative and lateral Marlen test negative. Skin: General: Skin is warm and dry. Neurological: Mental Status: She is alert and oriented to person, place, and time. ORTHO: Left Knee Exam Muscle Strength The patient has normal left knee strength. Tenderness The patient is experiencing tenderness in the medial joint line, patella and lateral joint line. Range of Motion Extension: normal Flexion: 120 Tests Marlen: Medial - negative Lateral - negative Varus: negative Valgus: negative Mariya: Anterior - negative Drawer: Anterior - negative Posterior - negative Other Erythema: absent Scars: absent Sensation: normal Pulse: present Swelling: mild Effusion: no effusion present Imaging: Left knee:No acute osseous abnormality. Moderate to severe medial knee compartment joint space narrowing with moderate osteophytic spurring. On the lateral view there is a [id number] appearance in the medial compartment. Mild lateral knee and patellofemoral compartment joint space narrowing with mild osteophytic spurring. Small suprapatellar joint effusion. Assessment/Plan: After examination and reviewing the patient x-ray images we discussed treatment options for the left knee. We did discuss continued OTC pain medications, injections as well as a course of outpatient physical therapy. I did express to the patient that in my opinion that she did not need to move forward with the MRI of that left knee. I also explained that given the amount of arthritis within that knee joint if conservative treatment measures fail we would discuss a total knee replacement surgery. Diagnosis: Problem List Items Addressed This Visit None Follow Up: No follow-ups on file. Ana Canales CNP documented in this encounter [facility] 05-26-2023 Miscellaneous Notes AVS/education given by RN; all questions addressed and Pt stated understanding. Assessment unchanged and no complaints. Both IVs intact when removed per policy. Telemetry removed and returned. Patient dressed and waiting for ride at this time. Problem: Patient Care Overview Goal: Plan of Care Review Outcome: Adequate for Discharge Goal: Individualization & Mutuality Outcome: Adequate for Discharge Goal: Discharge Needs Assessment Outcome: Adequate for Discharge Goal: Interdisciplinary Rounds/Family Conf Outcome: Adequate for Discharge Problem: Skin Integrity Impairment, Risk/Actual (Adult) Goal: Identify Related Risk Factors and Signs and Symptoms Description: Related risk factors and signs and symptoms are identified upon initiation of Human Response Clinical Practice Guideline (CPG) Outcome: Adequate for Discharge Goal: Skin Integrity/Wound Healing Description: Patient will demonstrate the desired outcomes by discharge/transition of care. Outcome: Adequate for Discharge Problem: Mobility, Physical Impaired (Adult) Goal: Enhanced Functionality Ability Description: Patient will demonstrate the desired outcomes by discharge/transition of care. 1. Pt will demonstrate a TUG < 15 decrease fall risk. 2. Pt will perform all transfers with mod I to ensure safety at home. 3. Pt will ambulate 250 with mod I and LRAD to ensure safety with short community ambulation. 4. Pt will ambulate up and down 4 steps with rail and supervision. 5. Pt will be independent with HEP. Outcome: Adequate for Discharge Problem: Pain, Acute (Adult) Goal: Identify Related Risk Factors and Signs and Symptoms Description: Related risk factors and signs and symptoms are identified upon initiation of Human Response Clinical Practice Guideline (CPG) Outcome: Adequate for Discharge Goal: Acceptable Pain Control/Comfort Level Description: Patient will demonstrate the desired outcomes by discharge/transition of care. Outcome: Adequate for Discharge Problem: Anxiety (Adult) Goal: Identify Related Risk Factors and Signs and Symptoms Description: Related risk factors and signs and symptoms are identified upon initiation of Human Response Clinical Practice Guideline (CPG) Outcome: Adequate for Discharge Goal: Reduction/Resolution Description: Patient will demonstrate the desired outcomes by discharge/transition of care. Outcome: Adequate for Discharge No changes noted from previous assessment. Patient ambulated with physical therapy and appeared to be doing very well. Patient denies any needs and is resting comfortably at this time. Will continue to monitor. Assessment unchanged from prior. Patient resting in bed, call light within reach, Bed alarm on, Patient denies any needs at this time. Pulse O2 was in mid 80s Put patient on 2L NC, New Pulse O2 94%, Assessment otherwise unchanged from prior. Patient resting in bed, call light within reach, Bed alarm on, Patient denies any needs at this time. No changes to previous assessment. No change in assessment. Social work Flower aware of new consult. 2200: pt refusing to wear oxygen at this time. Educated pt on the need to wear oxygen but states she has not ever needed it before. 0400: Pt O2 is 83% on RA. This nurse went into pt room to ask pt If we could now put the oxygen on because her oxygen is low, she states that her oxygen is low because we aren't letting her sleep educated pt that not getting sleep does not have any affect on oxygen levels and the need to place the oxygen on. Pt states this nurse can put oxygen on but only for a little bit. Problem: Patient Care Overview Goal: Plan of Care Review Outcome: Ongoing Goal: Individualization & Mutuality Outcome: Ongoing Goal: Discharge Needs Assessment Outcome: Ongoing Goal: Interdisciplinary Rounds/Family Conf Outcome: Ongoing Problem: Skin Integrity Impairment, Risk/Actual (Adult) Goal: Identify Related Risk Factors and Signs and Symptoms Description: Related risk factors and signs and symptoms are identified upon initiation of Human Response Clinical Practice Guideline (CPG) Outcome: Ongoing Goal: Skin Integrity/Wound Healing Description: Patient will demonstrate the desired outcomes by discharge/transition of care. Outcome: Ongoing Problem: Mobility, Physical Impaired (Adult) Goal: Enhanced Functionality Ability Description: Patient will demonstrate the desired outcomes by discharge/transition of care. 1. Pt will demonstrate a TUG < 15 decrease fall risk. 2. Pt will perform all transfers with mod I to ensure safety at home. 3. Pt will ambulate 250 with mod I and LRAD to ensure safety with short community ambulation. 4. Pt will ambulate up and down 4 steps with rail and supervision. 5. Pt will be independent with HEP. Outcome: Ongoing Problem: Pain, Acute (Adult) Goal: Identify Related Risk Factors and Signs and Symptoms Description: Related risk factors and signs and symptoms are identified upon initiation of Human Response Clinical Practice Guideline (CPG) Outcome: Ongoing Goal: Acceptable Pain Control/Comfort Level Description: Patient will demonstrate the desired outcomes by discharge/transition of care. Outcome: Ongoing Problem: Anxiety (Adult) Goal: Identify Related Risk Factors and Signs and Symptoms Description: Related risk factors and signs and symptoms are identified upon initiation of Human Response Clinical Practice Guideline (CPG) Outcome: Ongoing Goal: Reduction/Resolution Description: Patient will demonstrate the desired outcomes by discharge/transition of care. Outcome: Ongoing 2015- Patient assessed. See flowsheets for assessment details. 0015- No new changes from previous assessment unless noted in flow sheet. 0415 - Assessment unchanged with any exceptions noted in the flowsheet. Patient denies further needs and is left with call light and personals in reach. No new changes from previous assessment unless noted in flow sheet. No new changes from previous assessment unless noted in flow sheet. Patient wakes up and asks for something to help her go back to sleep . Discussed that she has been sleeping and that it is now morning, and wont be getting anything for sleep specifically. She states she is generally uncomfortable and states pain is 8/10 all over her body and a headache. BP is 138/69 (95) now that she is awake and talking. States she is nervous about getting up and around today that it will make her BP high again. Explained again that her medications have been adjusted and that it may take a little time for her body to regulate and get used to her BP being lower, and that it is normal for the number to be higher after getting up and moving around. Emotional support given- call light left in reach. Patient assessment remains unchanged. She has been sleeping, call light in reach. Patient resting quietly, wearing 2L O2. Sleeping between cares. Assessment is unchanged. BP appears improved as of this time. Call light within reach. Patient assessment is completed. She is still having a headache 03/30 and some nausea after eating her supper. Discussed medications and POC. PRN meds given. She denies further needs at this time, call light is left in reach. No new changes from previous assessment. No change in assessment noted. Patient remains drowsy in bed but vocalizing anxiety. Patient more awake and ready for breakfast. Ordered by this RN per patient request. Patient awake but drowsy, ambulated to bathroom x 1 assist. Urine specimen collected as ordered and sent to lab. Assisted back to bed and reconnected to monitor. No change in assessment, Headache has subsided and is gone. No change noted on assessment. Called Dedra Baker NP for orders regarding new admit. See new orders. documented in this encounter [facility] 05-26-2023 Nurse Note AVS/education given by RN; all questions addressed and Pt stated understanding. Assessment unchanged and no complaints. Both IVs intact when removed per policy. Telemetry removed and returned. Patient dressed and waiting for ride at this time. [facility] 05-26-2023 History of Present illness Narrative Followed up with [facility], she confirms that they can accept for home health. Discharge orders faxed. Oxygen saturation 92% on room air at rest. Consulted with Victorino HODGE, patient did well with PT. Followed up with patient, she feels comfortable discharging home with home health. Cancelled referral to [facility]. Spoke with Yuki at [facility], they do not take patient's insurance and suggested calling home health. Spoke with Alma Delia at [facility] but she states that since patient's PCP is not through they can't accept. [facility] 05/26/23 1155 Time In/Out Time In 1155 Time Out 1233 Total Visit Time 38 minutes Subjective RN Approved Intervention as tolerated Existing Precautions/Restrictions fall Subjective Reports Pt sitting up in bed upon arrival this session. Pt agreeable for therapy and pt states generalized pain at 8/10. Cognitive Status Examination Orientation Status (Cognition) oriented x 4 Level of Consciousness alert Able to Follow Commands (Communication) WFL Personal Safety and Judgment intact General Pain Documentation (Adult, OB, Peds) Presence of Pain complains of pain/discomfort Pain Location generalized Pain Management Interventions ambulated Select Pain Scale (8/10) Objective Therapeutic Interventions Pt sitting in bedside chair upon arrival this session. Pt agreeable for therapy and pt began with STS to FWW, SBA and then pt ambulated into hallway for approx 100ft with slow and steady gait using swing through pattern with no LOB noted. Pt then practiced steps x8 stairs with R HR only with SBA and min verbal cues for proper seqeuencing. Pt then ambulated an additional 100ft with no LOB noted. Pt retunred to room and transfered to sitting in bedside chair for rest break. Discussed HH vs ECF with pt stating that she would like to return home with HH at this time. Advised pt to have assistance when using steps to enter home for increased safety and to decrease fall risk with pt stating that she would be able to make sure she has assistane when entering/exiting home. Spoke with [employer] TECHNICIAN Lee Adan and notified him aswell. Pt then completed B LE ther ex including marches, LAQs, hip abd, ankle pumps, and pillow squeezes x10 reps each. Pt remained sitting in bedside chair with LEs elevated and call light left within reach. Transfer Skill: Sit To Stand, Rehab Eval Geneva (Sit-Stand Transfers) (SBA) Physical Assist/Nonphysical Assist: Sit/Stand 1 person assist Weight-Bearing Restrictions: Sit/Stand full weight-bearing Assistive Device For Transfer: Sit/Stand 2 wheeled walker Gait Skills, PT Eval Level of Geneva: Gait stand-by assist Gait Distance (100ft x2) Gait Analysis, PT Eval Gait Pattern Used swing-through gait Gait Deviations Identified (Gait) decreased gait speed;decreased gideon;decreased step length;decreased stride length Impairments Contributing To Gait Deviations decreased strength;other (see comments) (decreased endurance) Stair Negotiation Geneva Level: Stair Negotiation stand-by assist Physical Assist: Stair Negotiation (1 person) Weight-Bearing Restrictions: Stair Negotiation full weight-bearing Assistive Device: Stair Negotiation right rail (ascending) Number of stairs 8 Stair Railings present on right side (ascending) Plan Plan for next visit Cont with LE strengthening ex, transfers, and mobility Maintain frequency yes Chart reviewed. Followed up with patient who continues to request SNF placement due to not having any help at home but states she only wants to stay a week. Reminded patient of need for insurance approval and if denied, can set up home health at home. Spoke with Verona/jean carlos at [facility] who states they take her insurance and will review the referral. Referral faxed. DAILY PROGRESS NOTE Admit Date: 05/22/2023 Date of Evaluation: 1:15 AM [facility] LOS: 0 days Chief complaint: Hypertensive urgency SUBJECTIVE: Patient seen and examined. Chart, medications, labs all reviewed. Patient denies all reports of Headache Blurred Vision, Dizziness, Fever, Chills, Nausea, Vomiting, Diarrhea, or Pain. Vital Signs: Blood pressure (!) 143/93, pulse 93, temperature 97.3 F (36.3 C), temperature source Temporal, resp. rate 15, height 1.651 m (5' 5 ), weight 128.8 kg (284 lb), SpO2 90 %. O2 Sat (%): 90 % (05/25 1018) O2 Device: nasal cannula (05/25 1018) Flow (L/min): 3 (05/25 0430) Intake and Output: Intake/Output Summary (Last 24 hours) at 05/25/2023 1115 Last data filed at 05/25/2023 0700 Gross per 24 hour Intake 840 ml Output -- Net 840 ml Daily Weight: Wt Readings from Last 3 Encounters: 05/23/23 128.8 kg (284 lb) 10/15/22 135.2 kg (298 lb) 10/01/22 131.1 kg (289 lb) PHYSICAL EXAM: General: Patient Awake. No acute distress. Cardiovascular: Regular rate and rhythm, without murmurs, rubs, or gallops. Respiratory: Bilateral Upper and Lower Lobes without wheezes, rales, or rhonchi, diminished. Abdomen: Soft, rounded, non-tender. Bowel sounds present x4 quadrants. No rebound. No organomegaly or masses noted upon deep palpation. Extremities: trace ble edema, clubbing or cyanosis, pulses palpable 2+ distally. Skin: Warm, Dry, Intact. Neuro: Cranial nerves II-XII grossly intact. No focal deficits Diagnostics: CBC Lab Results Component Value Date/Time WBC 4.6 05/25/2023 05:00 AM WBC 4.5 05/24/2023 06:22 AM WBC 4.3 05/23/2023 05:25 AM HGB 14.5 05/25/2023 05:00 AM HGB 14.9 05/24/2023 06:22 AM HGB 14.5 05/23/2023 05:25 AM HCT 42.2 05/25/2023 05:00 AM HCT 44.4 05/24/2023 06:22 AM HCT 42.2 05/23/2023 05:25 AM PLATELET 105 (L) 05/25/2023 05:00 AM PLATELET 107 (L) 05/24/2023 06:22 AM PLATELET 109 (L) 05/23/2023 05:25 AM Chemistry Lab Results Component Value Date/Time GLUCOSE 141 (H) 05/25/2023 05:00 AM GLUCOSE 137 (H) 05/24/2023 06:22 AM GLUCOSE 115 (H) 05/23/2023 05:25 AM GLUCOSE neg 10/15/2022 12:45 PM GLUCOSE neg 10/01/2022 12:59 PM BUN 21 (H) 05/25/2023 05:00 AM BUN 17 05/24/2023 06:22 AM BUN 16 05/23/2023 05:25 AM CREATSERUM 0.91 05/25/2023 05:00 AM CREATSERUM 0.85 05/24/2023 06:22 AM CREATSERUM 0.70 05/23/2023 05:25 AM CREATSERUM 1.08 06/29/2017 03:18 PM SODIUM 139 05/25/2023 05:00 AM SODIUM 137 05/24/2023 06:22 AM SODIUM 142 05/23/2023 05:25 AM POTASSIUM 3.2 (L) 05/25/2023 05:00 AM POTASSIUM 3.6 05/24/2023 06:22 AM POTASSIUM 3.6 05/23/2023 05:25 AM CHLORIDE 102 05/25/2023 05:00 AM CHLORIDE 104 05/24/2023 06:22 AM CHLORIDE 106 05/23/2023 05:25 AM CO2 29 05/25/2023 05:00 AM CO2 26 05/24/2023 06:22 AM CO2 25 05/23/2023 05:25 AM ALBUMIN 3.9 05/25/2023 05:00 AM ALBUMIN 4.0 05/24/2023 06:22 AM ALBUMIN 4.3 05/23/2023 05:25 AM CALCIUM 8.7 05/25/2023 05:00 AM CALCIUM 9.1 05/24/2023 06:22 AM CALCIUM 8.9 05/23/2023 05:25 AM PHOSPHORUS 4.8 (H) 05/25/2023 05:00 AM PHOSPHORUS 5.9 (H) 05/24/2023 06:22 AM PHOSPHORUS 6.2 (H) 05/23/2023 05:25 AM PHOSPHORUS 2.9 07/19/2016 05:00 AM PHOSPHORUS 2.6 07/18/2016 05:00 AM PHOSPHORUS 3.2 07/17/2016 05:00 AM MAGNESIUM 1.9 05/25/2023 05:00 AM MAGNESIUM 2.1 05/24/2023 06:22 AM MAGNESIUM 2.2 05/23/2023 05:25 AM COAG Lab Results Component Value Date/Time PT 12.7 05/23/2023 05:25 AM PT 12.7 02/16/2023 05:11 PM PT 12.6 01/31/2022 04:20 AM INR 0.94 05/23/2023 05:25 AM INR 0.94 02/16/2023 05:11 PM INR 0.92 01/31/2022 04:20 AM PTT 26 07/14/2016 11:58 AM PTT Specimen clotted: Test not performed 07/08/2016 02:22 PM ABG No results found for: HCO3 , PCO2 , PO2 Other notable labs: Relevant microbiologic cultures: Lab Results Component Value Date RESULTCULT NO PATHOGENS ISOLATED 01/30/2022 IMPRESSION /PLAN: Principal Problem: Hypertensive urgency- coreg/arb/hctz -- improving. Active Problems: Class 3 severe obesity due to excess calories with serious comorbidity and body mass index (BMI) of 45.0 to 49.9 in adult Chronic hepatitis C virus infection KELLY (obstructive sleep apnea) Thrombocytopenia Elevated LFTs Mixed hyperlipidemia Hyperglycemia Tension type headache- improved. Muscle deconditioning: d/w ot Recommend ECF, patient is anxious about returning home reports difficulty with caring for herself and doesn't have support that can stay with her at home. PT noted walk 50 ft. Stand by assist. Code Status Full Code I personally spent 10 minutes in the management of this patient, the details of my visit are listed in my documentation above. Associated attestation - Cristiano Bee MD - 05/25/2023 2:28 PM EDT Patient seen and examined independently on date of exam on 05/25/2023. Chart reviewed. Overnight there were no events reported. Patient offers no complaints other than generalized weakness. She is requesting discharge to SNF. Cardiac, Neuro, GI ROS is negative. ID ROS is negative. On exam, patient is alert. Nontoxic. No acute distress. Vital signs reviewed. Afebrile. Sclera is anicteric. Neck is supple. Lungs are clear to auscultation bilaterally with diminished volumes. Heart exam is regular. Normal S1, S2. No S3. Distant heart tones. Abdomen soft. Obese. Nontender. Bowel sounds present. No rebound or guarding. There is no lower extremity edema. Obese. There is no gross focal neurologic deficit. Patient all extremities x4. She has poor antigravity strength of lower extremities. There is no gross focal neurologic deficit. Patient is alert oriented 3. Labs reviewed. Patient is clinically stable for discharge but is now requesting SNF placement. She does have significant deconditioning and SNF placement is not unreasonable. Will continue with supportive care. Await protective services social worker for assistance with disposition. Continue supportive care. See orders. I have reviewed gerard aspects of the assessments and plan with the CONTRACTS DIRECTOR and agree with documentation outlined in addition to my notations. Cristiano Bee MD 05/25/2023 This note was created with the assistance of [employer]. While intending to generate a document that actually reflects the content of the visit, the document can still have some errors including those of syntax and sound a like substitutions which may escape proof reading. In such instances, actual meaning can be extrapolated by contextual diversion. 05/25/23 0940 Time In/Out Time In 0940 Time Out 1018 Total Visit Time 38 minutes Initial Evaluation/Screen Completed? yes General Information RN Approved Intervention as tolerated Admitting Diagnosis hypertensive urgency Surgical Procedure none Past Surgical History Past Surgical History: Procedure Laterality Date EGD DIAGNOSTIC N/A 11/13/2020 Laterality: N/A; Surgeon: Isael Hall MD; [facility] HERNIA VENTRAL OPEN W/ MESH N/A 07/16/2016 Laterality: N/A; Surgeon: Jake Hurtado MD; Location: [facility] HEART CATHETERIZATION Apr 2015 GASTRIC BYPASS 1996 HYSTERECTOMY 1987 BACK SURGERY HARDWARE L 4-5 CERVICAL LAMINECTOMY C 4-5 HERNIA REPAIR x4 Past Medical History Past Medical History: Diagnosis Date Adverse drug reaction Possible drug reaction to Sovaldi and Ribavirin but not confirmed. Anxiety Chronic hepatitis C without mention of hepatic coma Depression Hernia of abdominal cavity 2011 Hypertension Kidney infection Liver cirrhosis Obesity Shingles Existing Precautions/Restrictions fall Previous Level of Function Bed Mobility/Transfers independent Bathing independent Upper Body Dressing independent Lower Body Dressing independent Grooming independent Toileting independent Eating independent Home Management Skills needs assist (has a seo expert) General Pain Documentation (Adult, OB, Peds) Presence of Pain complains of pain/discomfort Pain Location leg, left Pain Management Interventions ambulated Select Pain Scale (not rated) Home Setting Residence Apartment Lives With alone First floor setup bedroom;tub shower Number of Stairs to Enter Home 13 (has an option to do 2 steps from a porch) Number of Stairs Within Home 0 Equipment Available straight cane;wheeled walker Cognitive Status Examination Orientation Status (Cognition) oriented x 4 Level of Consciousness alert Able to Follow Commands (Communication) WFL Personal Safety and Judgment intact Vision Screen Currently wearing corrective lenses Yes Speech Speech no gross deficits noted Hearing Hearing no gross deficits noted Sensory Examination Sensory Examination WFL Range of Motion (ROM) Range of Motion Examination (bilateral shoulder flexion 90 degrees, pt states arthritis in right shoulder otherwise due to weakness) Manual Muscle Testing (MMT) Dominant Hand right Hand Puppet Maker, Right moderate Hand Puppet Maker, Left moderate Manual Muscle Testing Results (bilateral shoulder flexion 3-/5, 4-/5 distally) Bed Mobility Skill: Sit to Supine, Rehab Eval Level of Geneva: Sit/Supine minimum assist (75% patients effort) Physical Assist/Nonphysical Assist: Sit/Supine 1 person assist Bed Mobility Skill: Supine to Sit, Rehab Eval Level of Geneva: Supine/Sit stand-by assist Physical Assist/Nonphysical Assist: Supine/Sit 1 person assist Transfer Skill: Sit to Stand, Rehab Eval Level of Geneva: Sit/Stand contact guard Physical Assist/Nonphysical Assist: Sit/Stand 1 person assist Weight-Bearing Restrictions: Sit/Stand full weight-bearing Assistive Device for Transfer: Sit/Stand wheeled walker Lower Body Dressing Level of Geneva moderate assist (50% patients effort) Physical Assist/Nonphysical Assist 1 person assist General Therapy Interventions Planned Therapy Interventions (OT Eval) ADL retraining;balance training;functional activity tolerance;strengthening;transfer training;ROM (range of motion) Clinical Impression Co-evaluation/co-treatment performed? No simultaneous skilled care performed Patient Instruction Pt instructed on bilateral UE exercises completing with handout and verbal/visual cuing for technique patient tolerate completing 5 reps each and SpO2 monitored ranging from 89-94% on room air. Rehab Potential (OT Eval) good, to achieve stated therapy goals Therapy Frequency 5 times a week Today's Treatment Included Pt presents with SOB, decreased O2 levels and hypertensive urgency, patient was at a store and in the pharmacy BP was taken in 200s/100s. Pt reports difficulty with mobility and self care, using a walker at home due to left knee pain. Pt reports she is not able to melisa shoes or socks and only wears flip flops all year around, increased time to complete underwear and pant management. Pt provided a canvas bag to improve meal prep performance at home due to difficulty and decreased safety with using the walker and carrying items to sit at table. Recommend OT at discharge due to decreased strength and overall activity tolerance decreasing her ability to care for herself at home Continue care plan yes Goals Goals For Discharge Recommend ECF, patient is anxious about returning home reports difficulty with caring for herself and doesn't have support that can stay with her at home Discussed risk / benefits with patient Therapist Recommendations At Discharge Recommendations OT Services recommended at Discharge Plan Plan for next session continue with activity tolerance for ADLs Therapist Information License # [id number] 1. Pt will complete LB dressing min assist utilizing AE 2. Pt will complete sponge bathing min assist 3. Pt will complete toileting to bathroom commode MOD I with no report of fatigue 4. Pt will complete hygiene/grooming standing at sink MOD I 5. Pt will complete UB dressing set up 6. Pt will complete bilateral UE strengthening to improve functional use of UE for ADLs weight caller SW received a call from [facility], about patient requesting SNF. Chart reviewed. PT yesterday recommended home no services, OT today recommending SNF and states patient is anxious about going home and caring for herself. SW spoke with patient via telephone in room. Patient reports living alone and states she is normally independent but recently I've had a lot of problems with my blood pressure and haven't been able to care for myself as well. She states she has had a friend and a hospital aides and assistants teacher assist her but is requesting SNF for rehab, I think I need to recognize that's what I need right now. SW explained will need to find a SNF in network with her insurance and insurance would need to approve SNF placement, patient verbalized understanding. She is also aware due to being Labor Day holiday, SNF might not have admissions working today and even if so insurance is not likely to give answer today. Patient lives in [place] and is requesting 1-[facility], 2-[facility], and states does not have a preference after that. SISI spoke with [facility], who reports admissions is off today and he is not sure if they are in network. SISI spoke with Cindy, jean carlos at [facility], who reports facility is not in network with insurance but only 2 facilities in [place] that are in network are [facility] and [facility]. [facility] called [facility], jean car[facility] not working today. SW to update Warrick SW to continue working on SNF placement tomorrow. PCC updated. 05/24/23 1517 Time In/Out Time In 1517 Time Out 1551 Total Visit Time 34 minutes Total Treatment Time (skilled, billable minutes) 34 minutes PT Therapy Completed Yes Initial Evaluation/Screen Completed? yes General Information RN Approved Intervention as tolerated Diagnosis Hypertensive emergency Surgical Procedure none Past Medical History Past Medical History: Diagnosis Date Adverse drug reaction Possible drug reaction to Sovaldi and Ribavirin but not confirmed. Anxiety Chronic hepatitis C without mention of hepatic coma Depression Hernia of abdominal cavity 2011 Hypertension Kidney infection Liver cirrhosis Obesity Shingles Past Surgical History Past Surgical History: Procedure Laterality Date EGD DIAGNOSTIC N/A 11/13/2020 Laterality: N/A; Surgeon: Isael Hall MD; Location: [facility]COPY REPAIR HERNIA VENTRAL OPEN W/ MESH N/A 07/16/2016 Laterality: N/A; Surgeon: Jake Hurtado MD; Location: [facility] MA[facility] HEART CATHETERIZATION Apr 2015 GASTRIC BYPASS 1996 HYSTERECTOMY 1987 BACK SURGERY HARDWARE L 4-5 CERVICAL LAMINECTOMY C 4-5 HERNIA REPAIR x4 Existing Precautions/Restrictions fall;supplemental oxygen (2lpm via [place]; planned to have at discharge) Home Setting Residence House Lives With alone First floor setup bedroom;tub shower Number of stairs to enter home 13 Stair Railings at Home entry - with rail Mobility Equipment Available 2 wheeled walker Home Environment Details FWW used intermittently over the last 4 weeks due to global LLE pain Previous Level of Function Ambulation Skills independent Level of Ambulation household General Pain Documentation (Adult, OB, Peds) Presence of Pain complains of pain/discomfort Pain Management Interventions ambulated Select Pain Scale DVPRS (Defense and Veterans Pain Rating Scale) (Adult-Cognitively Intact) DVPRS (Defense and Veterans Pain Rating Scale) DVPRS: Rest 8- severe pain Cognitive Status Examination Orientation Status (Cognition) oriented x 3 Level of Consciousness alert Able to Follow Commands (Communication) WNL Personal Safety and Judgment intact Range of Motion (ROM) Range of Motion Examination bilateral lower extremity ROM was WFL Manual Muscle Testing (MMT) Manual Muscle Testing Results deficits as listed below (L knee MMT 4/5 limited by pain per pt) Transfer Skill: Sit To Stand, Rehab Eval Geneva (Sit-Stand Transfers) supervision Gait Skills, PT Eval Level of Geneva: Gait stand-by assist Gait Distance 50 feet Gait Analysis, PT Eval Gait Pattern Used swing-through gait Gait Deviations Identified (Gait) decreased gideon;decreased gait speed;decreased heel strike;decreased step length;decreased stride length Impairments Contributing To Gait Deviations impaired balance;impaired postural control;decreased strength Stair Negotiation Geneva Level: Stair Negotiation not tested Plan of Care Interventions Planned Therapy Interventions balance training;bed mobility training;functional activity tolerance;endurance;gait training;strengthening;stretching;tra nsfer training Assessment Assessment Narrative Pt presents with impaired LLE weakness, impaired balance, and endurance. Pt with history of L4/5 fusion in the lumbar spine per the pt report. LLE began with global pain and weakness 4 weeks ago which she has been assessed for prior to admission. Pt would benefit from skilled PT treatment to address these deficits and imrpove safety Discharge Recommendations home Clinical Impression Co-evaluation/co-treatment performed? No simultaneous skilled care performed Criteria for Skilled Therapeutic Interventions Met (PT Eval) yes, treatment indicated Impairments Found (PT Eval) Strength;Balance;Posture;Transfers;Ga it/Locomotion Rehab Potential (PT Eval) good Therapy Frequency 5 times a week PT Therapies Still to Complete 4 Anticipated Equipment Needs at Discharge (PT Eval) none Continue care plan yes Today's Treatment Included PT eval, pt education, BLE strengthenign x 10 including LAQ, ankle pumps, seated marches, STS x 3 and glute squeezes. BP monitored throughout treatment and was 135/88 mmHG seated following ambulation. 117/73 mmHG prior to treatment session when reclined in chair. Goals Goals For Discharge Home Therapist Recommendations At Discharge Recommendations PT Services not recommended at Discharge Plan Plan for next session stair negotiation Therapist Information License # [id number] 1. Pt will demonstrate a TUG < 15 decrease fall risk. 2. Pt will perform all transfers with mod I to ensure safety at home. 3. Pt will ambulate 250 with mod I and LRAD to ensure safety with short community ambulation. 4. Pt will ambulate up and down 4 steps with rail and supervision. 5. Pt will be independent with HEP. INTERVAL HISTORY Patient seen and examined independently. Meds, labs, and radiographs reviewed. +GARCIA and weakness - SBP improved. All questions and concerns addressed w/ patient at BS in regard to plan of care. CURRENT HOSPITALIZATION/ICU LOS: Admit Date: 05/22/2023 OBJECTIVE FINDINGS: Vital Signs (24hrs): Temp: [97.6 F (36.4 C)-98 F (36.7 C)] 97.9 F (36.6 C) Pulse (Heart Rate): [58-85] 79 Resp Rate: [18-35] 19 BP: (95-187)/(59-103) 123/71 O2 Sat (%): [90 %-96 %] 96 % (my read) Ventilation/Oxygen Therapy (24hrs): Oxygen Therapy O2 Sat (%): 96 % O2 Device: nasal cannula Flow (L/min): 2 Oxygen Concentration (%): 28 Lines/Drains/Airways/Wounds: Patient Lines/Drains/Airways Status Active Lines, Drains, Airways, & Wound Overview Name Placement date Placement time Site Days Peripheral IV Line - Single Lumen 05/22/232016 median vein (underside of arm), right 20 gauge 05/22/232016 -- 1 Peripheral IV Line - Single Lumen 05/22/232229 forearm, anterior, left 18 gauge;1 1/2 in length 05/22/232229 -- 1 Brace/Orthotic/Orthosis (Adult, Obstetrics) 07/16/16 abdominal binder 07/16/16 -- -- 2503 Fluid Management (24hrs): Intake/Output Summary (Last 24 hours) at 05/24/2023 1207 Last data filed at 05/23/2023 1800 Gross per 24 hour Intake 480 ml Output 300 ml Net 180 ml PHYSICAL EXAM: Gen: Comfortable in chair. Lungs: Diminished to auscultation bilaterally. Heart: Regular in rate and rhythm. Abd: Soft and non-distended. Skin: No obvious rashes or cyanosis. EXT: Trace pedal edema. DIAGNOSTIC RESULTS/PROCEDURES: Imaging/Radiological Studies (my read): N/A Lab Results Component Value Date/Time WBC 4.5 05/24/2023 06:22 AM WBC 4.3 05/23/2023 05:25 AM WBC 5.1 05/22/2023 05:26 PM HGB 14.9 05/24/2023 06:22 AM HGB 14.5 05/23/2023 05:25 AM HGB 14.1 05/22/2023 05:26 PM HCT 44.4 05/24/2023 06:22 AM HCT 42.2 05/23/2023 05:25 AM HCT 41.6 05/22/2023 05:26 PM PLATELET 107 (L) 05/24/2023 06:22 AM PLATELET 109 (L) 05/23/2023 05:25 AM PLATELET 110 (L) 05/22/2023 05:26 PM Lab Results Component Value Date/Time GLUCOSE 137 (H) 05/24/2023 06:22 AM GLUCOSE 115 (H) 05/23/2023 05:25 AM GLUCOSE 111 (H) 05/22/2023 05:26 PM GLUCOSE neg 10/15/2022 12:45 PM GLUCOSE neg 10/01/2022 12:59 PM BUN 17 05/24/2023 06:22 AM BUN 16 05/23/2023 05:25 AM BUN 20 05/22/2023 05:26 PM CREATSERUM 0.85 05/24/2023 06:22 AM CREATSERUM 0.70 05/23/2023 05:25 AM CREATSERUM 0.79 05/22/2023 05:26 PM CREATSERUM 1.08 06/29/2017 03:18 PM SODIUM 137 05/24/2023 06:22 AM SODIUM 142 05/23/2023 05:25 AM SODIUM 142 05/22/2023 05:26 PM POTASSIUM 3.6 05/24/2023 06:22 AM POTASSIUM 3.6 05/23/2023 05:25 AM POTASSIUM 4.3 05/22/2023 05:26 PM CHLORIDE 104 05/24/2023 06:22 AM CHLORIDE 106 05/23/2023 05:25 AM CHLORIDE 108 (H) 05/22/2023 05:26 PM CO2 26 05/24/2023 06:22 AM CO2 25 05/23/2023 05:25 AM CO2 27 05/22/2023 05:26 PM ALBUMIN 4.0 05/24/2023 06:22 AM ALBUMIN 4.3 05/23/2023 05:25 AM ALBUMIN 4.2 05/22/2023 05:26 PM CALCIUM 9.1 05/24/2023 06:22 AM CALCIUM 8.9 05/23/2023 05:25 AM CALCIUM 9.0 05/22/2023 05:26 PM PHOSPHORUS 5.9 (H) 05/24/2023 06:22 AM PHOSPHORUS 6.2 (H) 05/23/2023 05:25 AM PHOSPHORUS 2.9 07/19/2016 05:00 AM PHOSPHORUS 2.6 07/18/2016 05:00 AM PHOSPHORUS 3.2 07/17/2016 05:00 AM MAGNESIUM 2.1 05/24/2023 06:22 AM MAGNESIUM 2.2 05/23/2023 05:25 AM MAGNESIUM 2.1 01/31/2022 04:20 AM Lab Results Component Value Date/Time PT 12.7 05/23/2023 05:25 AM PT 12.7 02/16/2023 05:11 PM PT 12.6 01/31/2022 04:20 AM INR 0.94 05/23/2023 05:25 AM INR 0.94 02/16/2023 05:11 PM INR 0.92 01/31/2022 04:20 AM PTT 26 07/14/2016 11:58 AM PTT Specimen clotted: Test not performed 07/08/2016 02:22 PM Additional Labs ASSESSMENT/PLAN: Principal Problem: Hypertensive urgency - resolved - monitor SBP - needs CPAP compliance Active Problems: Class 3 severe obesity due to excess calories with serious comorbidity and body mass index (BMI) of 45.0 to 49.9 in adult Chronic hepatitis C virus infection KELLY (obstructive sleep apnea) Thrombocytopenia Elevated LFTs Mixed hyperlipidemia Hyperglycemia Tension type headache Code Status Full Code Additional medications reviewed in electronic medical record and noted. documented in this encounter [facility] 05-26-2023 Hospital course Narrative Images from the original note were not included. Discharge Summary Name: Micheline Fox Age: 63 y.o. Birthday: 1960 Admit Date: 05/22/2023 4:37 PM Discharge Date: 05/26/2023 Discharge Assesment and Plan: Principal Problem: Hypertensive urgency- coreg/arb/hctz -- improving. fu pcp Active Problems: Class 3 severe obesity due to excess calories with serious comorbidity and body mass index (BMI) of 45.0 to 49.9 in adult Chronic hepatitis C virus infection- hcv rna pending fu PCP KELLY (obstructive sleep apnea) Thrombocytopenia Elevated LFTs Mixed hyperlipidemia Hyperglycemia Tension type headache- improved. Muscle deconditioning: d/w ot Recommend ECF, patient is anxious about returning home reports difficulty with caring for herself and doesn't have support that can stay with her at home. PT noted walk 50 ft. Stand by assist. Pt reevaluated today. Doing better. Pt recommends HHC> will dc today. Brief Summary of Hospital Course: Patient presented with complaints of hypertension. In the ED her blood pressure was 250/126. Patient was initially on a Cardene drip. She was transitioned to oral regimen and blood pressure has been improving. Patient has been complaining of deconditioning. Consideration for rehab was completed by social work and therapies. Today she is doing little bit better than over the weekend. We have decided patient will trial home health care with therapy. She will follow up with her PCP. Discharge Vital Signs: Blood pressure 125/66, pulse 82, temperature 97.5 F (36.4 C), temperature source Temporal, resp. rate 20, height 1.651 m (5' 5 ), weight 128.1 kg (282 lb 8 oz), SpO2 90 %. O2 Sat (%): 90 % (05/26 1100) O2 Device: room air (05/26 1230) Flow (L/min): 2 (05/26 1100) Discharge Labs: Lab Results Component Value Date WBC 4.8 05/26/2023 HGB 13.9 05/26/2023 HCT 40.6 05/26/2023 PLATELET 111 (L) 05/26/2023 MCV 90.4 05/26/2023 Lab Results Component Value Date SODIUM 139 05/26/2023 POTASSIUM 3.3 (L) 05/26/2023 CHLORIDE 104 05/26/2023 CO2 28 05/26/2023 BUN 25 (H) 05/26/2023 CREATSERUM 1.09 05/26/2023 GLUCOSE 136 (H) 05/26/2023 Lab Results Component Value Date ALT 52 (H) 05/25/2023 AST 45 (H) 05/25/2023 ALKPHOS 70 05/25/2023 BILITOTAL 1.2 05/25/2023 BILIDIRECT 0.2 02/16/2023 PHYSICAL EXAM: General: Patient resting comfortably. Awake. No acute distress. Cardiovascular: Regular rate and rhythm, without murmurs, rubs, or gallops. Respiratory: Bilateral Upper and Lower Lobes without wheezes, rales, or rhonchi Abdomen: Soft, rounded, non-tender. Bowel sounds present x4 quadrants. No rebound. No organomegaly or masses noted upon deep palpation. Extremities: No edema, clubbing or cyanosis, pulses palpable 2+ distally. Skin: Warm, Dry, Intact. Neuro: Cranial nerves II-XII grossly intact. No focal deficits Discharge Medications: Medication List for when you go home START taking these medications carveDILOL 12.5 MG TABS Take 1 tablet by mouth 2 times daily. Commonly known as: COREG hydroCHLOROthiazide 25 MG TABS Take 1 tablet by mouth daily. Commonly known as: HYDRODIURIL CHANGE how you take these medications Atorvastatin 40 MG TABS Take 1 tablet by mouth every evening at 6 PM. Commonly known as: LIPITOR What changed: The strength you have reported taking of this medication has changed See the new instructions. Losartan 50 MG TABS Take 1 tablet by mouth every 12 hours. Commonly known as: COZAAR What changed: How often you have reported taking this medication has changed Another medication with the same name was removed. Continue taking this medication, and follow the directions you see here. Topiramate 25 MG TABS Take 2 tablets by mouth. Commonly known as: TOPAMAX What changed: Another medication with the same name was removed. Continue taking this medication, and follow the directions you see here. CONTINUE taking these medications Albuterol 108 (90 Base) MCG/ACT AERS inhaler Inhale 1 puff every 6 hours as needed. * ALPRAZolam 1 MG TABS Take by mouth daily. Commonly known as: XANAX * ALPRAZolam 1 MG TABS Xanax 1 mg oral tablet take 1 tablet (1 mg) by oral route BID prn Suspended Commonly known as: XANAX Aspirin [address] tablet Aspir-81 81 mg oral tablet,delayed release (DR/EC) take 1 tablet (81 mg) by oral route once daily Suspended Cholecalciferol 50 MCG (2000 UT) TABS Vitamin D3 2,000 unit oral tablet take tablet by oral route daily Active Cyclobenzaprine 10 MG TABS Take 1 tablet by mouth 3 times daily as needed for Muscle spasms. Commonly known as: FLEXERIL Desvenlafaxine ER 100 MG tab XL Take by mouth daily. * docusate 100 MG CAPS Take 2 capsules by mouth Twice daily. * docusate 100 MG CAPS take 1 capsule by mouth 2 times daily. * DULoxetine [address] capsule DR Take 1 capsule by mouth daily. Commonly known as: CYMBALTA * DULoxetine [address] capsule DR duloxetine 60 mg oral capsule,delayed release(DR/EC) take 1 capsule (60 mg) by oral route once daily Active Commonly known as: CYMBALTA esomeprazole [address] capsule take 1 capsule by mouth daily THIRTY MINUTES BEFORE BREAKFAST Commonly known as: NEXIUM Ipratropium-albuterol 0.5-2.5 (3) MG/3ML nebulizer solution Take 3 mL by nebulization every 6 hours as needed. Commonly known as: DUONEB Potassium chloride 20 MEQ tab ER tablet Take by mouth daily. Is unsure of dose Commonly known as: K-DUR * Sertraline 50 MG TABS sertraline 50 mg oral tablet take 1 tablet (50 mg) by oral route once daily Suspended Commonly known as: ZOLOFT * Sertraline 100 MG TABS Zoloft 100 mg oral tablet take 1 tablet (100 mg) by oral route once daily Suspended Commonly known as: ZOLOFT tiZANidine 4 MG TABS take 1 tablet by mouth three times a day if needed Commonly known as: ZANAFLEX trazodone 300 MG TABS Take 1 tablet by mouth At bedtime. Commonly known as: DESYREL * The same medication is listed twice. Please discuss with your provider. STOP taking these medications amLODIPine 2.5 MG TABS Commonly known as: NORVASC Brexpiprazole 2 MG TABS bumetanide 1 MG TABS Commonly known as: BUMEX eszopiclone 2 MG TABS Commonly known as: LUNESTA furOSEmide 20 MG TABS Commonly known as: LASIX hydrALAZINE 25 MG TABS Commonly known as: APRESOLINE hydrALAZINE 50 MG TABS Commonly known as: APRESOLINE Lisinopril 10 MG TABS Commonly known as: PRINIVIL metOLazone 2.5 MG TABS Commonly known as: ZAROXOLYN Metoprolol 25 MG tab regular release Commonly known as: LOPRESSOR Metoprolol succinate 25 MG tablet XL Commonly known as: TOPROL-XL NIFEdipine 60 MG (OSM) tablet XL Commonly known as: PROCARDIA XL Ondansetron 4 MG ODT tablet Commonly known as: ZOFRAN-ODT Oseltamivir 75 MG CAPS Commonly known as: TAMIFLU Pantoprazole [address] tablet DR Commonly known as: PROTONIX potassium chloride 10 MEQ tab ER tablet ER Commonly known as: KLOR-CON Discharge Activity: Resume pre-hospital activities as tolerated. Discharge Diet: Resume pre-hospital diet as tolerated. Discharge Follow-up: Leticia Sylvester MD [address] [place], [place] [id number] Follow up in 1 week(s) Discharge Disposition: Patient will be discharged in stable condition to Home with [facility] Discharge Time: Including assessment, planning, and medication reconciliation was 15 minutes Lee Adan CNP completing Discharge Summary for attending physician. Please note Portions of this note utilized [employer] dictation software, please excuse any typographical or grammatical errors Associated attestation - Cristiano Bee MD - 05/26/2023 9:34 PM EDT Patient seen and examined independently on date of exam on 05/26/2023 with CONTRACTS DIRECTOR at bedside. Overnight there were no events reported. Patient did well with PT and has now decided to discharge home with home healthcare. Otherwise patient has no complaints. Cardiac, ID, GI, pulmonary ROS is negative. On exam, patient is alert. Nontoxic. Speech clear nonlabored. Vital signs reviewed. Afebrile. Lungs clear bilaterally. Heart exam is regular. Normal S1, S2. No S3. Abdomen soft. Obese. Bowel sounds present. Nontender. No rebound or guarding. Bilateral lower extremities are obese. No lower extremity edema. There is no new gross focal neurologic deficit. Patient has ambulated without assist. She is alert and oriented x3. Labs reviewed. Patient is clinically stable for discharge and now has decided not to discharge to SNF. She is now agreeable to discharge home with home health care. She will follow-up as recommended. Medication Compliance and FU has been stressed to patient. See orders. I have reviewed gerard aspects of the assessments and plan with the CONTRACTS DIRECTOR and agree with documentation outlined in addition to my notations. 40 minutes discharge time spent, inclusive of time documented by CONTRACTS DIRECTOR. Cristiano Bee MD 05/26/2023 This note was created with the assistance of [employer] Speech Dictation Software. While intending to generate a document that actually reflects the content of the visit, the document can still have some errors including those of syntax and sound a like substitutions which may escape proof reading. In such instances, actual meaning can be extrapolated by contextual diversion. documented in this encounter [facility] 05-26-2023 Plan of care note Problem: Patient Care Overview Goal: Plan of Care Review Outcome: Adequate for Discharge Goal: Individualization & Mutuality Outcome: Adequate for Discharge Goal: Discharge Needs Assessment Outcome: Adequate for Discharge Goal: Interdisciplinary Rounds/Family Conf Outcome: Adequate for Discharge Problem: Skin Integrity Impairment, Risk/Actual (Adult) Goal: Identify Related Risk Factors and Signs and Symptoms Description: Related risk factors and signs and symptoms are identified upon initiation of Human Response Clinical Practice Guideline (CPG) Outcome: Adequate for Discharge Goal: Skin Integrity/Wound Healing Description: Patient will demonstrate the desired outcomes by discharge/transition of care. Outcome: Adequate for Discharge Problem: Mobility, Physical Impaired (Adult) Goal: Enhanced Functionality Ability Description: Patient will demonstrate the desired outcomes by discharge/transition of care. 1. Pt will demonstrate a TUG < 15 decrease fall risk. 2. Pt will perform all transfers with mod I to ensure safety at home. 3. Pt will ambulate 250 with mod I and LRAD to ensure safety with short community ambulation. 4. Pt will ambulate up and down 4 steps with rail and supervision. 5. Pt will be independent with HEP. Outcome: Adequate for Discharge Problem: Pain, Acute (Adult) Goal: Identify Related Risk Factors and Signs and Symptoms Description: Related risk factors and signs and symptoms are identified upon initiation of Human Response Clinical Practice Guideline (CPG) Outcome: Adequate for Discharge Goal: Acceptable Pain Control/Comfort Level Description: Patient will demonstrate the desired outcomes by discharge/transition of care. Outcome: Adequate for Discharge Problem: Anxiety (Adult) Goal: Identify Related Risk Factors and Signs and Symptoms Description: Related risk factors and signs and symptoms are identified upon initiation of Human Response Clinical Practice Guideline (CPG) Outcome: Adequate for Discharge Goal: Reduction/Resolution Description: Patient will demonstrate the desired outcomes by discharge/transition of care. Outcome: Adequate for Discharge [facility] 05-26-2023 Nurse Note No changes noted from previous assessment. Patient ambulated with physical therapy and appeared to be doing very well. Patient denies any needs and is resting comfortably at this time. Will continue to monitor. [facility] 05-26-2023 Nurse Note Assessment unchanged from prior. Patient resting in bed, call light within reach, Bed alarm on, Patient denies any needs at this time. [facility] 05-26-2023 Nurse Note Pulse O2 was in mid 80s Put patient on 2L NC, New Pulse O2 94%, Assessment otherwise unchanged from prior. Patient resting in bed, call light within reach, Bed alarm on, Patient denies any needs at this time. [facility] 05-25-2023 Nurse Note No changes to previous assessment. [facility] 05-25-2023 Nurse Note No change in assessment. [facility] 05-25-2023 Nurse Note Social work Flower aware of new consult. [facility] 05-25-2023 Nurse Note 2200: pt refusing to wear oxygen at this time. Educated pt on the need to wear oxygen but states she has not ever needed it before. 0400: Pt O2 is 83% on RA. This nurse went into pt room to ask pt If we could now put the oxygen on because her oxygen is low, she states that her oxygen is low because we aren't letting her sleep educated pt that not getting sleep does not have any affect on oxygen levels and the need to place the oxygen on. Pt states this nurse can put oxygen on but only for a little bit. [facility] 05-25-2023 Plan of care note Problem: Patient Care Overview Goal: Plan of Care Review Outcome: Ongoing Goal: Individualization & Mutuality Outcome: Ongoing Goal: Discharge Needs Assessment Outcome: Ongoing Goal: Interdisciplinary Rounds/Family Conf Outcome: Ongoing Problem: Skin Integrity Impairment, Risk/Actual (Adult) Goal: Identify Related Risk Factors and Signs and Symptoms Description: Related risk factors and signs and symptoms are identified upon initiation of Human Response Clinical Practice Guideline (CPG) Outcome: Ongoing Goal: Skin Integrity/Wound Healing Description: Patient will demonstrate the desired outcomes by discharge/transition of care. Outcome: Ongoing Problem: Mobility, Physical Impaired (Adult) Goal: Enhanced Functionality Ability Description: Patient will demonstrate the desired outcomes by discharge/transition of care. 1. Pt will demonstrate a TUG < 15 decrease fall risk. 2. Pt will perform all transfers with mod I to ensure safety at home. 3. Pt will ambulate 250 with mod I and LRAD to ensure safety with short community ambulation. 4. Pt will ambulate up and down 4 steps with rail and supervision. 5. Pt will be independent with HEP. Outcome: Ongoing Problem: Pain, Acute (Adult) Goal: Identify Related Risk Factors and Signs and Symptoms Description: Related risk factors and signs and symptoms are identified upon initiation of Human Response Clinical Practice Guideline (CPG) Outcome: Ongoing Goal: Acceptable Pain Control/Comfort Level Description: Patient will demonstrate the desired outcomes by discharge/transition of care. Outcome: Ongoing Problem: Anxiety (Adult) Goal: Identify Related Risk Factors and Signs and Symptoms Description: Related risk factors and signs and symptoms are identified upon initiation of Human Response Clinical Practice Guideline (CPG) Outcome: Ongoing Goal: Reduction/Resolution Description: Patient will demonstrate the desired outcomes by discharge/transition of care. Outcome: Ongoing [facility] 05-25-2023 Nurse Note 2015- Patient assessed. See flowsheets for assessment details. 0015- No new changes from previous assessment unless noted in flow sheet. 0415 - Assessment unchanged with any exceptions noted in the flowsheet. Patient denies further needs and is left with call light and personals in reach. [facility] 05-24-2023 Nurse Note No new changes from previous assessment unless noted in flow sheet. [facility] 05-24-2023 Nurse Note No new changes from previous assessment unless noted in flow sheet. [facility] 05-24-2023 Nurse Note Patient wakes up and asks for something to help her go back to sleep . Discussed that she has been sleeping and that it is now morning, and wont be getting anything for sleep specifically. She states she is generally uncomfortable and states pain is 8/10 all over her body and a headache. BP is 138/69 (95) now that she is awake and talking. States she is nervous about getting up and around today that it will make her BP high again. Explained again that her medications have been adjusted and that it may take a little time for her body to regulate and get used to her BP being lower, and that it is normal for the number to be higher after getting up and moving around. Emotional support given- call light left in reach. [facility] 05-24-2023 Nurse Note Patient assessment remains unchanged. She has been sleeping, call light in reach. [facility] 05-24-2023 Nurse Note Patient resting quietly, wearing 2L O2. Sleeping between cares. Assessment is unchanged. BP appears improved as of this time. Call light within reach. [facility] 05-23-2023 Nurse Note Patient assessment is completed. She is still having a headache 03/30 and some nausea after eating her supper. Discussed medications and POC. PRN meds given. She denies further needs at this time, call light is left in reach. [facility] 05-23-2023 Nurse Note No new changes from previous assessment. [facility] 05-23-2023 History and physical note History and Physical Examination Admit date: 05/22/2023 4:37 PM Chief Complaint: Chief Complaint Patient presents with Hypertension States was at the store and checked bp and it was increased. C/o of chest pain and shortness of breath since yesterday. History of Present Illness: Patient is a 63 y.o. female who presented to the hospital for evaluation of hypertension which is not controlled well. She last saw Dr. Sylvester 3 weeks ago. States medications were adjusted at that time but her systolic pressure is maintained over 200 since then. She went to the pharmacy. She took her blood pressure and the systolic number was 250 in the diastolic number was over 100. She spoke with the pharmacist. She states she was told to come to the hospital and this has made her very anxious. She now states she has a headache and feels very anxious and jittery. She tells me she hurts all over but this is not out of the ordinary. Ct head non acute. Chest xray no acute finding. bp was 250/126. She was placed on iv cardene. Oral meds have been adjusted. She was treated for headache. bp and headache improved today but she still is feeling very anxious. She stated she has lost a lot of her family members over the past couple of years. Objective: Past Medical History: Diagnosis Date Adverse drug reaction Possible drug reaction to Sovaldi and Ribavirin but not confirmed. Anxiety Chronic hepatitis C without mention of hepatic coma Depression Hernia of abdominal cavity 2011 Hypertension Kidney infection Liver cirrhosis Obesity Shingles Past Surgical History: Procedure Laterality Date EGD DIAGNOSTIC N/A 11/13/2020 Laterality: N/A; Surgeon: Isael Hall MD; Location: [facility] ENDOSCOPY REPAIR HERNIA VENTRAL OPEN W/ MESH N/A 07/16/2016 Laterality: N/A; Surgeon: Jake Hurtado MD; Location: [facility] MAIN OR HEART CATHETERIZATION Apr 2015 GASTRIC BYPASS 1996 HYSTERECTOMY 1987 BACK SURGERY HARDWARE L 4-5 CERVICAL LAMINECTOMY C 4-5 HERNIA REPAIR x4 Social History Tobacco Use Smoking status: Former Packs/day: 0.30 Years: 30.00 Total pack years: 9.00 Types: Cigarettes Quit date: 02/18/2015 Years since quittin.2 Smokeless tobacco: Never Substance Use Topics Alcohol use: Yes Comment: occasionally Family History Problem Relation Age of Onset Stroke Mother TIA -04/29/16 Coronary Artery Disease Father Other - Specify Father Hypertension Father Dementia Father Heart Failure Father Hypertension Brother Medications Prior to Admission Medication Sig Dispense Refill Last Dose ALPRAZolam 1 MG tablet Xanax 1 mg oral tablet take 1 tablet (1 mg) by oral route BID prn Suspended 05/22/[address] tablet Aspir-81 81 mg oral tablet,delayed release (DR/EC) take 1 tablet (81 mg) by oral route once daily Suspended Past Month Atorvastatin 20 MG tablet atorvastatin 20 mg oral tablet take 1 tablet (20 mg) by oral route once daily at bedtime Suspended 05/22/2023 Cyclobenzaprine 10 MG tablet Take 1 tablet by mouth 3 times daily as needed for Muscle spasms. 21 tablet 0 05/22/2023 Desvenlafaxine ER 100 MG Tab SR 24 HR Take by mouth daily. 05/22/2023 docusate 100 MG Cap take 1 capsule by mouth 2 times daily. 30 capsule 3 Past Week eszopiclone 2 MG tablet Take by mouth at bedtime. 05/21/2023 Metoprolol succinate 25 MG tablet XL metoprolol succinate 25 mg oral tablet extended release 24 hr take 1 tablet (25 mg) by oral route once daily Active 05/22/2023 ondansetron 4 MG Tab Dispersible tablet Take 1 tablet by mouth every 4 hours as needed for Nausea. Place on tongue 30 tablet 0 Past Week tiZANidine 4 MG tablet take 1 tablet by mouth three times a day if needed 05/22/2023 trazodone 300 MG tablet Take 1 tablet by mouth At bedtime. 05/21/2023 albuterol 108 (90 Base) MCG/ACT Aero Soln inhaler Inhale 1 puff every 6 hours as needed. ALPRAZolam 1 MG tablet Take by mouth daily. amLODIPine 2.5 MG tablet Norvasc 2.5 mg oral tablet take 1 tablet (2.5 mg) by oral route once daily Suspended Brexpiprazole 2 MG tablet Take by mouth daily. (Patient not taking: Reported on 05/22/2023) Not Taking bumetanide 1 MG tablet Take 1 tablet by mouth daily. Cholecalciferol 50 MCG (2000 UT) tablet Vitamin D3 2,000 unit oral tablet take tablet by oral route daily Active docusate 100 MG capsule Take 2 capsules by mouth Twice daily. DULoxetine [address] Particles capsule DR Take 1 capsule by mouth daily. DULoxetine [address] Particles capsule DR duloxetine 60 mg oral capsule,delayed release(DR/EC) take 1 capsule (60 mg) by oral route once daily Active esomeprazole [address] capsule take 1 capsule by mouth daily THIRTY MINUTES BEFORE BREAKFAST furOSEmide 20 MG tablet Lasix 20 mg oral tablet take 1 tablet (20 mg) by oral route 2 times per day Suspended hydrALAZINE 25 MG tablet Take 1 tablet by mouth 3 times daily. hydrALAZINE 50 MG tablet Take 1 tablet by mouth 3 times daily. ipratropium-albuterol 0.5-2.5 (3) MG/3ML nebulizer solution Take 3 mL by nebulization every 6 hours as needed. Lisinopril 10 MG tablet lisinopril 10 mg oral tablet take 1 tablet (10 mg) by oral route once daily Suspended losartan 50 MG tablet Take 1 tablet by mouth daily. Losartan 50 MG tablet 2 tablets. metOLazone 2.5 MG tablet Take 1 tablet by mouth once a week. Tuesdays metoprolol 25 MG tab regular release Take 1 tablet by mouth 2 times daily. NIFEdipine 60 MG (OSM) tablet XL Oseltamivir 75 MG capsule Take by mouth 2 times daily. Pantoprazole [address] tablet DR pantoprazole 40 mg oral tablet,delayed release (DR/EC) take 1 tablet (40 mg) by oral route once daily Active (Patient not taking: Reported on 05/22/2023) Not Taking potassium chloride 10 MEQ Tab CR tablet ER Not taking potassium chloride 20 MEQ Tab CR tablet Take by mouth daily. Is unsure of dose Sertraline 100 MG tablet Zoloft 100 mg oral tablet take 1 tablet (100 mg) by oral route once daily Suspended Sertraline 50 MG tablet sertraline 50 mg oral tablet take 1 tablet (50 mg) by oral route once daily Suspended topiramate 25 MG tablet Take 50 mg every evening 60 tablet 0 topiramate 25 MG tablet Take 2 tablets by mouth. Topiramate 25 MG tablet Topamax 25 mg tablet take 1 tablet (25 mg) by oral route once daily Active (Patient not taking: Reported on 05/22/2023) Not Taking Allergies Allergen Reactions Fentanyl Itching Toradol [Ketorolac Tromethamine] Hives and Pain Codeine Latex Hives and Rash Penicillins Review of Systems: Ten systems reviewed and found to be negative unless otherwise stated in the history and present illness. PHYSICAL EXAM: Patient Vitals for the past 8 hrs: BP Temp Temp src Pulse Resp SpO2 Weight 05/23/23 1100 135/63 -- -- 62 20 97 % -- 05/23/23 1030 141/67 -- -- 67 22 96 % -- 05/23/23 1000 148/90 -- -- 70 (!) 28 94 % -- 05/23/23 0930 147/70 -- -- 62 17 93 % -- 05/23/23 0900 140/60 -- -- 58 (!) 32 99 % 128.8 kg (284 lb) 05/23/23 0830 185/83 -- -- 57 16 97 % -- 05/23/23 0800 167/78 -- -- 62 20 97 % -- 05/23/23 0730 123/57 -- -- 51 19 98 % -- 05/23/23 0725 129/60 97 F (36.1 C) Temporal 52 17 98 % -- 05/23/23 0700 -- -- -- 53 17 98 % -- 05/23/23 0600 -- -- -- 52 17 99 % -- 05/23/23 0530 155/73 -- -- 52 19 97 % -- 05/23/23 0500 -- -- -- (!) 49 19 97 % -- 05/23/23 0430 119/63 -- -- (!) 48 16 97 % -- 05/23/23 0400 134/75 97.4 F (36.3 C) Temporal 52 24 97 % -- General: Patient Awake. No acute distress. HEENT: Normalcephalic, atraumatic. Pupils equal, round, reactive, to light and accomodation B/L. Bilateral nares patent without obvious drainage. Oral mucosa moist, pink, intact without ulcers or lesions. Neck: No JVD, no thyromegaly, no anterior or posterior lymphadenopathy. Cardiovascular: Regular rate and rhythm, without murmurs, rubs, or gallops. Respiratory: Bilateral Upper and Lower Lobes anterior and posteriorly without wheezes, rales, or rhonchi, diminished. Abdomen: Soft, rounded, non-tender. Bowel sounds present x4 quadrants. No rebound. No organomegaly or masses noted upon deep palpation. Extremities: +1 ble edema, clubbing or cyanosis, pulses palpable 2+ distally. Skin: Warm, Dry, Intact. No obvious rashes or lesions noted. Neuro: Patient awake, alert, orientedx3. Cranial nerves 2-12 grossly intact upon seated examination. No focal deficit noted. Diagnostics: Admission on 05/22/2023 Component Date Value TROPONIN I, HIGH SENSITI* 05/22/2023 5 COLOR, URINE 05/22/2023 YELLOW APPEARANCE, URINE 05/22/2023 CLEAR Specific [place], Urine 05/22/2023 1.020 PH URINE 05/22/2023 5.5 Urine Protein 05/22/2023 NEGATIVE GLUCOSE, URINE 05/22/2023 NEGATIVE KETONES, URINE 05/22/2023 NEGATIVE BILIRUBIN, URINE 05/22/2023 NEGATIVE BLOOD, URINE DIPSTICK 05/22/2023 NEGATIVE NITRITES, URINE 05/22/2023 NEGATIVE UROBILINOGEN, URINE 05/22/2023 0.2 LEUKOCYTE ESTERASE, URINE 05/22/2023 NEGATIVE Glucose 05/22/2023 111 (H) BUN 05/22/2023 20 CREATININE SERUM 05/22/2023 0.79 SODIUM 05/22/2023 142 POTASSIUM 05/22/2023 4.3 CHLORIDE 05/22/2023 108 (H) CALCIUM 05/22/2023 9.0 PROTEIN, TOTAL 05/22/2023 6.5 Albumin 05/22/2023 4.2 BILIRUBIN, TOTAL 05/22/2023 0.8 AST 05/22/2023 49 (H) ALKALINE PHOSPHATASE 05/22/2023 86 CARBON DIOXIDE (CO2) 05/22/2023 27 A/G Ratio 05/22/2023 1.8 ALT 05/22/2023 57 (H) ESTIMATED GFR, NON AFRIC* 05/22/2023 78 ESTIMATED GFR, A* 05/22/2023 95 GFR COMMENT 05/22/2023 Average GFR for 60-69 years old = 85. WBC (WHITE BLOOD COUNT) 05/22/2023 5.1 RBC 05/22/2023 4.55 HEMOGLOBIN (HGB) 05/22/2023 14.1 HEMATOCRIT (HCT) 05/22/2023 41.6 MEAN CELL VOLUME 05/22/2023 91.3 Mean Cell HGB 05/22/2023 31.1 MEAN CELL HGB CONCENTRAT* 05/22/2023 34.0 RBC DISTRIBUTION 05/22/2023 13.2 PLATELET COUNT 05/22/2023 110 (L) MEAN PLATELET VOLUME 05/22/2023 9.1 DIFFERENTIAL TYPE 05/22/2023 AUTO DIFF NEUTROPHILS 05/22/2023 67.5 LYMPHOCYTE 05/22/2023 20.0 MONOCYTE % 05/22/2023 5.7 EOSINOPHIL % 05/22/2023 6.2 BASOPHIL % 05/22/2023 0.6 Absolute Neutrophil Count 05/22/2023 3.4 LYMPHOCYTES, ABSOLUTE 05/22/2023 1.0 (L) MONOCYTES, ABSOLUTE 05/22/2023 0.3 ABSOLUTE EOSINOPHIL COUNT 05/22/2023 0.3 ABSOLUTE BASOPHIL COUNT 05/22/2023 0.0 BRAIN NATRIURETIC PEPTIDE 05/22/2023 89 TROPONIN I, HIGH SENSITI* 05/22/2023 6 TROPONIN I, HIGH SENSITI* 05/23/2023 8 HEMOGLOBIN A1C 05/23/2023 5.0 Estimated Average Glucose 05/23/2023 97 TSH, Reflex FT4 05/23/2023 1.970 WBC (WHITE BLOOD COUNT) 05/23/2023 4.3 RBC 05/23/2023 4.67 HEMOGLOBIN (HGB) 05/23/2023 14.5 HEMATOCRIT (HCT) 05/23/2023 42.2 MEAN CELL VOLUME 05/23/2023 90.4 Mean Cell HGB 05/23/2023 31.1 MEAN CELL HGB CONCENTRAT* 05/23/2023 34.4 RBC DISTRIBUTION 05/23/2023 13.0 PLATELET COUNT 05/23/2023 109 (L) MEAN PLATELET VOLUME 05/23/2023 9.3 DIFFERENTIAL TYPE 05/23/2023 AUTO DIFF NEUTROPHILS 05/23/2023 57.1 LYMPHOCYTE 05/23/2023 27.6 MONOCYTE % 05/23/2023 7.6 EOSINOPHIL % 05/23/2023 6.6 BASOPHIL % 05/23/2023 1.1 Absolute Neutrophil Count 05/23/2023 2.5 LYMPHOCYTES, ABSOLUTE 05/23/2023 1.2 MONOCYTES, ABSOLUTE 05/23/2023 0.3 ABSOLUTE EOSINOPHIL COUNT 05/23/2023 0.3 ABSOLUTE BASOPHIL COUNT 05/23/2023 0.0 Glucose 05/23/2023 115 (H) BUN 05/23/2023 16 CREATININE SERUM 05/23/2023 0.70 SODIUM 05/23/2023 142 POTASSIUM 05/23/2023 3.6 CHLORIDE 05/23/2023 106 CALCIUM 05/23/2023 8.9 PROTEIN, TOTAL 05/23/2023 6.5 Albumin 05/23/2023 4.3 BILIRUBIN, TOTAL 05/23/2023 0.9 AST 05/23/2023 48 (H) ALKALINE PHOSPHATASE 05/23/2023 94 CARBON DIOXIDE (CO2) 05/23/2023 25 A/G Ratio 05/23/2023 2.0 ALT 05/23/2023 57 (H) ESTIMATED GFR, NON AFRIC* 05/23/2023 90 ESTIMATED GFR, A* 05/23/2023 109 GFR COMMENT 05/23/2023 Average GFR for 60-69 years old = 85. MAGNESIUM 05/23/2023 2.2 PHOSPHORUS 05/23/2023 6.2 (H) PT 05/23/2023 12.7 INR 05/23/2023 0.94 SODIUM, URINE RANDOM 05/22/2023 53 SCREEN: MRSA 05/22/2023 NEGATIVE STAPHYOCOCCUS AUREUS BY * 05/22/2023 POSITIVE (A) CHOLESTEROL 05/23/2023 228 (H) TRIGLYCERIDE 05/23/2023 128 HDL CHOLESTEROL 05/23/2023 43 LDL CHOLESTEROL, CALCULA* 05/23/2023 159 VLDL Cholesterol, Calcul* 05/23/2023 26 TCHOL/HDL RATIO, MANUAL * 05/23/2023 5.30 VITAMIN D 25 HYDROXY 05/22/2023 36.3 Impression and Plan: Principal Problem: Hypertensive urgency: weaned off Cardene. Added coreg / dc toprol xl. Increased losartan to 50 mg bid. Added hydrochlorothiazide. Low salt diet Active Problems: Class 3 severe obesity due to excess calories with serious comorbidity and body mass index (BMI) of 45.0 to 49.9 in adult: Diet and lifestyle modification recommended. Chronic hepatitis C virus infection: HCV rna. Fu ID recommended KELLY (obstructive sleep apnea): noncompliance. Noted witnessed hypoxia and apnea. Thrombocytopenia: chronic. Elevated LFTs; monitor. Mild elevation Mixed hyperlipidemia: continue stating Hyperglycemia ha1c 5 Anxiety: fu pcp. Headache: 2/2 htn. Improving with treatment. Code Status Full Code I personally spent 15 minutes in the management of this patient, the details of my visit are listed in my documentation above. Plan of care was initiated in collaboration with attending physician. Please note Portions of this note utilized [employer] dictation software, please excuse any typographical or grammatical errors Associated attestation - Calvin Pimentel DO - 05/23/2023 1:13 PM EDT Patient seen and examined independently. Meds, labs, and radiographs reviewed. +SBP 250 w/ CP and SOB - Admitted to ICU on Cardene gtt. All additional ROS NEG. Somnolent speaking in 4-5 word sentences. HEENT NC/AT PERRLA MM moist w/o ulceration No TM or JVD. Lungs diminished and heart tones regular on exam. Abdo Obese Soft NT/ND w/ BS. No LE edema or rash. No focal deficits noted on exam. CT Head reviewed IMPRESSION: Age-appropriate atrophy and small vessel ischemic changes. No evidence of intracranial hemorrhage or other acute finding. Cardene gtt. NC w/ CPAP. Avoid sedatives w/ KELLY and BMI 47.26. Plts 110. Denies CP/SOB. All questions and concerns addressed w/ patient at BS in regard to plan of care. I agree with assessments and plan of care. I personally spent >50% of the total time spent of 32 min on this date's billable encounter including all of the MDM for this encounter. OBS admit. [facility] 05-23-2023 History and physical note History and Physical Examination Admit date: 05/22/2023 4:37 PM Chief Complaint: Chief Complaint Patient presents with Hypertension States was at the store and checked bp and it was increased. C/o of chest pain and shortness of breath since yesterday. History of Present Illness: Patient is a 63 y.o. female who presented to the hospital for evaluation of hypertension which is not controlled well. She last saw Dr. Sylvester 3 weeks ago. States medications were adjusted at that time but her systolic pressure is maintained over 200 since then. She went to the pharmacy. She took her blood pressure and the systolic number was 250 in the diastolic number was over 100. She spoke with the pharmacist. She states she was told to come to the hospital and this has made her very anxious. She now states she has a headache and feels very anxious and jittery. She tells me she hurts all over but this is not out of the ordinary. Ct head non acute. Chest xray no acute finding. bp was 250/126. She was placed on iv cardene. Oral meds have been adjusted. She was treated for headache. bp and headache improved today but she still is feeling very anxious. She stated she has lost a lot of her family members over the past couple of years. Objective: Past Medical History: Diagnosis Date Adverse drug reaction Possible drug reaction to Sovaldi and Ribavirin but not confirmed. Anxiety Chronic hepatitis C without mention of hepatic coma Depression Hernia of abdominal cavity 2011 Hypertension Kidney infection Liver cirrhosis Obesity Shingles Past Surgical History: Procedure Laterality Date EGD DIAGNOSTIC N/A 11/13/2020 Laterality: N/A; Surgeon: Isael Hall MD; Location: [facility] ENDOSCOPY REPAIR HERNIA VENTRAL OPEN W/ MESH N/A 07/16/2016 Laterality: N/A; Surgeon: Jake Hurtado MD; Location: [facility] MAIN OR HEART CATHETERIZATION Apr 2015 GASTRIC BYPASS 1996 HYSTERECTOMY 1987 BACK SURGERY HARDWARE L 4-5 CERVICAL LAMINECTOMY C 4-5 HERNIA REPAIR x4 Social History Tobacco Use Smoking status: Former Packs/day: 0.30 Years: 30.00 Total pack years: 9.00 Types: Cigarettes Quit date: 02/18/2015 Years since quittin.2 Smokeless tobacco: Never Substance Use Topics Alcohol use: Yes Comment: occasionally Family History Problem Relation Age of Onset Stroke Mother TIA -04/29/16 Coronary Artery Disease Father Other - Specify Father Hypertension Father Dementia Father Heart Failure Father Hypertension Brother Medications Prior to Admission Medication Sig Dispense Refill Last Dose ALPRAZolam 1 MG tablet Xanax 1 mg oral tablet take 1 tablet (1 mg) by oral route BID prn Suspended 05/22/[address] tablet Aspir-81 81 mg oral tablet,delayed release (DR/EC) take 1 tablet (81 mg) by oral route once daily Suspended Past Month Atorvastatin 20 MG tablet atorvastatin 20 mg oral tablet take 1 tablet (20 mg) by oral route once daily at bedtime Suspended 05/22/2023 Cyclobenzaprine 10 MG tablet Take 1 tablet by mouth 3 times daily as needed for Muscle spasms. 21 tablet 0 05/22/2023 Desvenlafaxine ER 100 MG Tab SR 24 HR Take by mouth daily. 05/22/2023 docusate 100 MG Cap take 1 capsule by mouth 2 times daily. 30 capsule 3 Past Week eszopiclone 2 MG tablet Take by mouth at bedtime. 05/21/2023 Metoprolol succinate 25 MG tablet XL metoprolol succinate 25 mg oral tablet extended release 24 hr take 1 tablet (25 mg) by oral route once daily Active 05/22/2023 ondansetron 4 MG Tab Dispersible tablet Take 1 tablet by mouth every 4 hours as needed for Nausea. Place on tongue 30 tablet 0 Past Week tiZANidine 4 MG tablet take 1 tablet by mouth three times a day if needed 05/22/2023 trazodone 300 MG tablet Take 1 tablet by mouth At bedtime. 05/21/2023 albuterol 108 (90 Base) MCG/ACT Aero Soln inhaler Inhale 1 puff every 6 hours as needed. ALPRAZolam 1 MG tablet Take by mouth daily. amLODIPine 2.5 MG tablet Norvasc 2.5 mg oral tablet take 1 tablet (2.5 mg) by oral route once daily Suspended Brexpiprazole 2 MG tablet Take by mouth daily. (Patient not taking: Reported on 05/22/2023) Not Taking bumetanide 1 MG tablet Take 1 tablet by mouth daily. Cholecalciferol 50 MCG (2000 UT) tablet Vitamin D3 2,000 unit oral tablet take tablet by oral route daily Active docusate 100 MG capsule Take 2 capsules by mouth Twice daily. DULoxetine [address] Particles capsule DR Take 1 capsule by mouth daily. DULoxetine [address] Particles capsule DR duloxetine 60 mg oral capsule,delayed release(DR/EC) take 1 capsule (60 mg) by oral route once daily Active esomeprazole [address] capsule take 1 capsule by mouth daily THIRTY MINUTES BEFORE BREAKFAST furOSEmide 20 MG tablet Lasix 20 mg oral tablet take 1 tablet (20 mg) by oral route 2 times per day Suspended hydrALAZINE 25 MG tablet Take 1 tablet by mouth 3 times daily. hydrALAZINE 50 MG tablet Take 1 tablet by mouth 3 times daily. ipratropium-albuterol 0.5-2.5 (3) MG/3ML nebulizer solution Take 3 mL by nebulization every 6 hours as needed. Lisinopril 10 MG tablet lisinopril 10 mg oral tablet take 1 tablet (10 mg) by oral route once daily Suspended losartan 50 MG tablet Take 1 tablet by mouth daily. Losartan 50 MG tablet 2 tablets. metOLazone 2.5 MG tablet Take 1 tablet by mouth once a week. Tuesdays metoprolol 25 MG tab regular release Take 1 tablet by mouth 2 times daily. NIFEdipine 60 MG (OSM) tablet XL Oseltamivir 75 MG capsule Take by mouth 2 times daily. Pantoprazole [address] tablet DR pantoprazole 40 mg oral tablet,delayed release (DR/EC) take 1 tablet (40 mg) by oral route once daily Active (Patient not taking: Reported on 05/22/2023) Not Taking potassium chloride 10 MEQ Tab CR tablet ER Not taking potassium chloride 20 MEQ Tab CR tablet Take by mouth daily. Is unsure of dose Sertraline 100 MG tablet Zoloft 100 mg oral tablet take 1 tablet (100 mg) by oral route once daily Suspended Sertraline 50 MG tablet sertraline 50 mg oral tablet take 1 tablet (50 mg) by oral route once daily Suspended topiramate 25 MG tablet Take 50 mg every evening 60 tablet 0 topiramate 25 MG tablet Take 2 tablets by mouth. Topiramate 25 MG tablet Topamax 25 mg tablet take 1 tablet (25 mg) by oral route once daily Active (Patient not taking: Reported on 05/22/2023) Not Taking Allergies Allergen Reactions Fentanyl Itching Toradol [Ketorolac Tromethamine] Hives and Pain Codeine Latex Hives and Rash Penicillins Review of Systems: Ten systems reviewed and found to be negative unless otherwise stated in the history and present illness. PHYSICAL EXAM: Patient Vitals for the past 8 hrs: BP Temp Temp src Pulse Resp SpO2 Weight 05/23/23 1100 135/63 -- -- 62 20 97 % -- 05/23/23 1030 141/67 -- -- 67 22 96 % -- 05/23/23 1000 148/90 -- -- 70 (!) 28 94 % -- 05/23/23 0930 147/70 -- -- 62 17 93 % -- 05/23/23 0900 140/60 -- -- 58 (!) 32 99 % 128.8 kg (284 lb) 05/23/23 0830 185/83 -- -- 57 16 97 % -- 05/23/23 0800 167/78 -- -- 62 20 97 % -- 05/23/23 0730 123/57 -- -- 51 19 98 % -- 05/23/23 0725 129/60 97 F (36.1 C) Temporal 52 17 98 % -- 05/23/23 07 -- -- -- 53 17 98 % -- 05/23/23 0600 -- -- -- 52 17 99 % -- 05/23/23 0530 155/73 -- -- 52 19 97 % -- 05/23/23 0500 -- -- -- (!) 49 19 97 % -- 05/23/23 0430 119/63 -- -- (!) 48 16 97 % -- 05/23/23 0400 134/75 97.4 F (36.3 C) Temporal 52 24 97 % -- General: Patient Awake. No acute distress. HEENT: Normalcephalic, atraumatic. Pupils equal, round, reactive, to light and accomodation B/L. Bilateral nares patent without obvious drainage. Oral mucosa moist, pink, intact without ulcers or lesions. Neck: No JVD, no thyromegaly, no anterior or posterior lymphadenopathy. Cardiovascular: Regular rate and rhythm, without murmurs, rubs, or gallops. Respiratory: Bilateral Upper and Lower Lobes anterior and posteriorly without wheezes, rales, or rhonchi, diminished. Abdomen: Soft, rounded, non-tender. Bowel sounds present x4 quadrants. No rebound. No organomegaly or masses noted upon deep palpation. Extremities: +1 ble edema, clubbing or cyanosis, pulses palpable 2+ distally. Skin: Warm, Dry, Intact. No obvious rashes or lesions noted. Neuro: Patient awake, alert, orientedx3. Cranial nerves 2-12 grossly intact upon seated examination. No focal deficit noted. Diagnostics: Admission on 05/22/2023 Component Date Value TROPONIN I, HIGH SENSITI* 05/22/2023 5 COLOR, URINE 05/22/2023 YELLOW APPEARANCE, URINE 05/22/2023 CLEAR Specific [place], Urine 05/22/2023 1.020 PH URINE 05/22/2023 5.5 Urine Protein 05/22/2023 NEGATIVE GLUCOSE, URINE 05/22/2023 NEGATIVE KETONES, URINE 05/22/2023 NEGATIVE BILIRUBIN, URINE 05/22/2023 NEGATIVE BLOOD, URINE DIPSTICK 05/22/2023 NEGATIVE NITRITES, URINE 05/22/2023 NEGATIVE UROBILINOGEN, URINE 05/22/2023 0.2 LEUKOCYTE ESTERASE, URINE 05/22/2023 NEGATIVE Glucose 05/22/2023 111 (H) BUN 05/22/2023 20 CREATININE SERUM 05/22/2023 0.79 SODIUM 05/22/2023 142 POTASSIUM 05/22/2023 4.3 CHLORIDE 05/22/2023 108 (H) CALCIUM 05/22/2023 9.0 PROTEIN, TOTAL 05/22/2023 6.5 Albumin 05/22/2023 4.2 BILIRUBIN, TOTAL 05/22/2023 0.8 AST 05/22/2023 49 (H) ALKALINE PHOSPHATASE 05/22/2023 86 CARBON DIOXIDE (CO2) 05/22/2023 27 A/G Ratio 05/22/2023 1.8 ALT 05/22/2023 57 (H) ESTIMATED GFR, NON AFRIC* 05/22/2023 78 ESTIMATED GFR, A* 05/22/2023 95 GFR COMMENT 05/22/2023 Average GFR for 60-69 years old = 85. WBC (WHITE BLOOD COUNT) 05/22/2023 5.1 RBC 05/22/2023 4.55 HEMOGLOBIN (HGB) 05/22/2023 14.1 HEMATOCRIT (HCT) 05/22/2023 41.6 MEAN CELL VOLUME 05/22/2023 91.3 Mean Cell HGB 05/22/2023 31.1 MEAN CELL HGB CONCENTRAT* 05/22/2023 34.0 RBC DISTRIBUTION 05/22/2023 13.2 PLATELET COUNT 05/22/2023 110 (L) MEAN PLATELET VOLUME 05/22/2023 9.1 DIFFERENTIAL TYPE 05/22/2023 AUTO DIFF NEUTROPHILS 05/22/2023 67.5 LYMPHOCYTE 05/22/2023 20.0 MONOCYTE % 05/22/2023 5.7 EOSINOPHIL % 05/22/2023 6.2 BASOPHIL % 05/22/2023 0.6 Absolute Neutrophil Count 05/22/2023 3.4 LYMPHOCYTES, ABSOLUTE 05/22/2023 1.0 (L) MONOCYTES, ABSOLUTE 05/22/2023 0.3 ABSOLUTE EOSINOPHIL COUNT 05/22/2023 0.3 ABSOLUTE BASOPHIL COUNT 05/22/2023 0.0 BRAIN NATRIURETIC PEPTIDE 05/22/2023 89 TROPONIN I, HIGH SENSITI* 05/22/2023 6 TROPONIN I, HIGH SENSITI* 05/23/2023 8 HEMOGLOBIN A1C 05/23/2023 5.0 Estimated Average Glucose 05/23/2023 97 TSH, Reflex FT4 05/23/2023 1.970 WBC (WHITE BLOOD COUNT) 05/23/2023 4.3 RBC 05/23/2023 4.67 HEMOGLOBIN (HGB) 05/23/2023 14.5 HEMATOCRIT (HCT) 05/23/2023 42.2 MEAN CELL VOLUME 05/23/2023 90.4 Mean Cell HGB 05/23/2023 31.1 MEAN CELL HGB CONCENTRAT* 05/23/2023 34.4 RBC DISTRIBUTION 05/23/2023 13.0 PLATELET COUNT 05/23/2023 109 (L) MEAN PLATELET VOLUME 05/23/2023 9.3 DIFFERENTIAL TYPE 05/23/2023 AUTO DIFF NEUTROPHILS 05/23/2023 57.1 LYMPHOCYTE 05/23/2023 27.6 MONOCYTE % 05/23/2023 7.6 EOSINOPHIL % 05/23/2023 6.6 BASOPHIL % 05/23/2023 1.1 Absolute Neutrophil Count 05/23/2023 2.5 LYMPHOCYTES, ABSOLUTE 05/23/2023 1.2 MONOCYTES, ABSOLUTE 05/23/2023 0.3 ABSOLUTE EOSINOPHIL COUNT 05/23/2023 0.3 ABSOLUTE BASOPHIL COUNT 05/23/2023 0.0 Glucose 05/23/2023 115 (H) BUN 05/23/2023 16 CREATININE SERUM 05/23/2023 0.70 SODIUM 05/23/2023 142 POTASSIUM 05/23/2023 3.6 CHLORIDE 05/23/2023 106 CALCIUM 05/23/2023 8.9 PROTEIN, TOTAL 05/23/2023 6.5 Albumin 05/23/2023 4.3 BILIRUBIN, TOTAL 05/23/2023 0.9 AST 05/23/2023 48 (H) ALKALINE PHOSPHATASE 05/23/2023 94 CARBON DIOXIDE (CO2) 05/23/2023 25 A/G Ratio 05/23/2023 2.0 ALT 05/23/2023 57 (H) ESTIMATED GFR, NON AFRIC* 05/23/2023 90 ESTIMATED GFR, A* 05/23/2023 109 GFR COMMENT 05/23/2023 Average GFR for 60-69 years old = 85. MAGNESIUM 05/23/2023 2.2 PHOSPHORUS 05/23/2023 6.2 (H) PT 05/23/2023 12.7 INR 05/23/2023 0.94 SODIUM, URINE RANDOM 05/22/2023 53 SCREEN: MRSA 05/22/2023 NEGATIVE STAPHYOCOCCUS AUREUS BY * 05/22/2023 POSITIVE (A) CHOLESTEROL 05/23/2023 228 (H) TRIGLYCERIDE 05/23/2023 128 HDL CHOLESTEROL 05/23/2023 43 LDL CHOLESTEROL, CALCULA* 05/23/2023 159 VLDL Cholesterol, Calcul* 05/23/2023 26 TCHOL/HDL RATIO, MANUAL * 05/23/2023 5.30 VITAMIN D 25 HYDROXY 05/22/2023 36.3 Impression and Plan: Principal Problem: Hypertensive urgency: weaned off Cardene. Added coreg / dc toprol xl. Increased losartan to 50 mg bid. Added hydrochlorothiazide. Low salt diet Active Problems: Class 3 severe obesity due to excess calories with serious comorbidity and body mass index (BMI) of 45.0 to 49.9 in adult: Diet and lifestyle modification recommended. Chronic hepatitis C virus infection: HCV rna. Fu ID recommended KELLY (obstructive sleep apnea): noncompliance. Noted witnessed hypoxia and apnea. Thrombocytopenia: chronic. Elevated LFTs; monitor. Mild elevation Mixed hyperlipidemia: continue stating Hyperglycemia ha1c 5 Anxiety: fu pcp. Headache: 2/2 htn. Improving with treatment. Code Status Full Code I personally spent 15 minutes in the management of this patient, the details of my visit are listed in my documentation above. Plan of care was initiated in collaboration with attending physician. Please note Portions of this note utilized [employer] dictation software, please excuse any typographical or grammatical errors Associated attestation - Calvin Pimentel DO - 05/23/2023 1:13 PM EDT Patient seen and examined independently. Meds, labs, and radiographs reviewed. +SBP 250 w/ CP and SOB - Admitted to ICU on Cardene gtt. All additional ROS NEG. Somnolent speaking in 4-5 word sentences. HEENT NC/AT PERRLA MM moist w/o ulceration No TM or JVD. Lungs diminished and heart tones regular on exam. Abdo Obese Soft NT/ND w/ BS. No LE edema or rash. No focal deficits noted on exam. CT Head reviewed IMPRESSION: Age-appropriate atrophy and small vessel ischemic changes. No evidence of intracranial hemorrhage or other acute finding. Cardene gtt. NC w/ CPAP. Avoid sedatives w/ KELLY and BMI 47.26. Plts 110. Denies CP/SOB. All questions and concerns addressed w/ patient at BS in regard to plan of care. I agree with assessments and plan of care. I personally spent >50% of the total time spent of 32 min on this date's billable encounter including all of the MDM for this encounter. OBS admit. documented in this encounter [facility] 05-23-2023 Nurse Note No change in assessment noted. Patient remains drowsy in bed but vocalizing anxiety. T [facility] 05-23-2023 Nurse Note Patient more awake and ready for breakfast. Ordered by this RN per patient request. T [facility] 05-23-2023 Nurse Note Patient awake but drowsy, ambulated to bathroom x 1 assist. Urine specimen collected as ordered and sent to lab. Assisted back to bed and reconnected to monitor. T [facility] 05-23-2023 Nurse Note No change in assessment, Headache has subsided and is gone. T [facility] 05-23-2023 Nurse Note No change noted on assessment. [facility] 05-22-2023 Nurse Note Called Dedra Baker NP for orders regarding new admit. See new orders. [facility] 05-22-2023 Emergency department Note Patient transferred upstairs to ICU on continuous 02 and cardiac monitoring. Patient taken up with all belongings and in stable condition. Patient taken up with ECG, report sheet, and extra sticker [facility] 05-22-2023 Emergency department Note Patient transferred upstairs to ICU on continuous 02 and cardiac monitoring. Patient taken up with all belongings and in stable condition. Patient taken up with ECG, report sheet, and extra sticker Called Dr Adan for dr Dumont notifying him of Dr. Pimentel accepting pt. Bed assignment# [id number] Report to ARLEEN Ledesma Dr. Dumont at [facility]. Emergency Room Note [facility] EMERGENCY DEPARTMENT Service Date:.05/22/23 PCP: Leticia Sylvester Chief Complaint: Chief Complaint Patient presents with Hypertension States was at the store and checked bp and it was increased. C/o of chest pain and shortness of breath since yesterday. HPI Micheline Fox is a 63 y.o. female presents to the ED today due to I feel horrible. Patient tells me she has a long history of hypertension which is not controlled well. She last saw Dr. Michelle 3 weeks ago. States medications were adjusted at that time but her systolic pressure is maintained over 200 since then. She went to the pharmacy today for something. She took her blood pressure and the systolic number was 250 in the diastolic number was over 100. She spoke with the pharmacist. She states she was told to come to the hospital and this has made her very anxious. She now states she has a headache and feels very anxious and jittery. She tells me she hurts all over but this is not out of the ordinary. Review of Systems: Review of Systems No fever or chills. No chest pain or shortness of breath. She is not complained of any cough, sore throat, or other upper respiratory complaints. She states she is had diarrhea since yesterday. No nausea or vomiting. No dysuria. She denies falls or trauma. She does complaining of diffuse, global headache. No visual changes. No change in smell or taste. Patient's [place] automated prescription reporting System report was reviewed. She has an opioid risk factor score of 66. She is regularly on alprazolam. She is regularly on Eszopiclone. Past Medical History: Past Medical History: Diagnosis Date Adverse drug reaction Possible drug reaction to Sovaldi and Ribavirin but not confirmed. Anxiety Chronic hepatitis C without mention of hepatic coma Depression Hernia of abdominal cavity 2011 Hypertension Kidney infection Liver cirrhosis Obesity Shingles Past Surgical History: Past Surgical History: Procedure Laterality Date EGD DIAGNOSTIC N/A 11/13/2020 Laterality: N/A; Surgeon: Isael Hall MD; Location: [facility] ENDOSCOPY REPAIR HERNIA VENTRAL OPEN W/ MESH N/A 07/16/2016 Laterality: N/A; Surgeon: Jake Hurtado MD; Location: [facility] MAIN OR HEART CATHETERIZATION Apr 2015 GASTRIC BYPASS 1996 HYSTERECTOMY 1987 BACK SURGERY HARDWARE L 4-5 CERVICAL LAMINECTOMY C 4-5 HERNIA REPAIR x4 Allergies: Allergies Allergen Reactions Fentanyl Itching Toradol [Ketorolac Tromethamine] Hives and Pain Codeine Latex Hives and Rash Penicillins Medications: Patient's Medications New Prescriptions No medications on file Previous Medications ALBUTEROL 108 (90 BASE) MCG/ACT AERO SOLN INHALER Inhale 1 puff every 6 hours as needed. ALPRAZOLAM 1 MG TABLET Take by mouth daily. ALPRAZOLAM 1 MG TABLET Xanax 1 mg oral tablet take 1 tablet (1 mg) by oral route BID prn Suspended AMLODIPINE 2.5 MG TABLET Norvasc 2.5 mg oral tablet take 1 tablet (2.5 mg) by oral route once daily Suspended ASPIRIN [address] TABLET Aspir-81 81 mg oral tablet,delayed release (DR/EC) take 1 tablet (81 mg) by oral route once daily Suspended ATORVASTATIN 20 MG TABLET atorvastatin 20 mg oral tablet take 1 tablet (20 mg) by oral route once daily at bedtime Suspended BREXPIPRAZOLE 2 MG TABLET Take by mouth daily. BUMETANIDE 1 MG TABLET Take 1 tablet by mouth daily. CHOLECALCIFEROL 50 MCG (2000 UT) TABLET Vitamin D3 2,000 unit oral tablet take tablet by oral route daily Active CYCLOBENZAPRINE 10 MG TABLET Take 1 tablet by mouth 3 times daily as needed for Muscle spasms. DESVENLAFAXINE ER 100 MG TAB SR 24 HR Take by mouth daily. DOCUSATE 100 MG CAP take 1 capsule by mouth 2 times daily. DOCUSATE 100 MG CAPSULE Take 2 capsules by mouth Twice daily. DULOXETINE [address] PARTICLES CAPSULE DR Take 1 capsule by mouth daily. DULOXETINE [address] PARTICLES [address]LE DR duloxetine 60 mg oral capsule,delayed release(DR/EC) take 1 capsule (60 mg) by oral route once daily Active ESOMEPRAZOLE [address] CAPSULE take 1 capsule by mouth daily THIRTY MINUTES BEFORE BREAKFAST ESZOPICLONE 2 MG TABLET Take by mouth at bedtime. FUROSEMIDE 20 MG TABLET Lasix 20 mg oral tablet take 1 tablet (20 mg) by oral route 2 times per day Suspended HYDRALAZINE 25 MG TABLET Take 1 tablet by mouth 3 times daily. HYDRALAZINE 50 MG TABLET Take 1 tablet by mouth 3 times daily. IPRATROPIUM-ALBUTEROL 0.5-2.5 (3) MG/3ML NEBULIZER SOLUTION Take 3 mL by nebulization every 6 hours as needed. LISINOPRIL 10 MG TABLET lisinopril 10 mg oral tablet take 1 tablet (10 mg) by oral route once daily Suspended LOSARTAN 50 MG TABLET Take 1 tablet by mouth daily. LOSARTAN 50 MG TABLET 2 tablets. METOLAZONE 2.5 MG TABLET Take 1 tablet by mouth once a week. Tuesdays METOPROLOL 25 MG TAB REGULAR RELEASE Take 1 tablet by mouth 2 times daily. METOPROLOL SUCCINATE 25 MG TABLET XL metoprolol succinate 25 mg oral tablet extended release 24 hr take 1 tablet (25 mg) by oral route once daily Active NIFEDIPINE 60 MG (OSM) TABLET XL ONDANSETRON 4 MG TAB DISPERSIBLE TABLET Take 1 tablet by mouth every 4 hours as needed for Nausea. Place on tongue OSELTAMIVIR 75 MG CAPSULE Take by mouth 2 times daily. PANTOPRAZOLE [address] TABLET DR pantoprazole 40 mg oral tablet,delayed release (DR/EC) take 1 tablet (40 mg) by oral route once daily Active POTASSIUM CHLORIDE 10 MEQ TAB CR TABLET ER Not taking POTASSIUM CHLORIDE 20 MEQ TAB CR TABLET Take by mouth daily. Is unsure of dose SERTRALINE 100 MG TABLET Zoloft 100 mg oral tablet take 1 tablet (100 mg) by oral route once daily Suspended SERTRALINE 50 MG TABLET sertraline 50 mg oral tablet take 1 tablet (50 mg) by oral route once daily Suspended TIZANIDINE 4 MG TABLET take 1 tablet by mouth three times a day if needed TOPIRAMATE 25 MG TABLET Take 50 mg every evening TOPIRAMATE 25 MG TABLET Take 2 tablets by mouth. TOPIRAMATE 25 MG TABLET Topamax 25 mg tablet take 1 tablet (25 mg) by oral route once daily Active TRAZODONE 300 MG TABLET Take 1 tablet by mouth At bedtime. Modified Medications No medications on file Discontinued Medications No medications on file Family History: Family History Problem Relation Age of Onset Stroke Mother TIA -04/29/16 Coronary Artery Disease Father Other - Specify Father Hypertension Father Dementia Father Heart Failure Father Hypertension Brother Social History: Social History Socioeconomic History Marital status: Spouse name: Not on file Number of children: Not on file Years of education: Not on file Highest education level: Not on file Occupational History Not on file Tobacco Use Smoking status: Former Packs/day: 0.30 Years: 30.00 Total pack years: 9.00 Types: Cigarettes Quit date: 02/18/2015 Years since quittin.2 Smokeless tobacco: Never Vaping Use Vaping Use: Former Substance and Sexual Activity Alcohol use: Yes Comment: occasionally Drug use: No Sexual activity: Not on file Other Topics Concern Not on file Social History Narrative Not on file Social Determinants of Health Financial Resource Strain: Not on file Food Insecurity: Not on file Transportation Needs: Not on file Physical Activity: Not on file Stress: Not on file Social Connections: Not on file Intimate Partner Violence: Not on file Housing Stability: Not on file Physical Exam: Physical Exam This is an obese 63-year-old female is awake and alert. She is very anxious but is oriented to person, place, time and will respond appropriately. She moves all 4 extremities on command. Cranial nerves 2-12 grossly intact. There is no obvious facial drooping no focal deficits. I see no signs of trauma on HEENT exam. Pupils are reactive. Extraocular movements are grossly intact. Sclerae and conjunctiva clear moist. Mouth has pink moist mucosa. She speaks in a normal voice and she handle secretions without difficulty. Her neck is supple her trachea is midline. There is no obvious JVD. Lungs do have symmetrical breath sounds. Heart is regular. Abdomen is soft and nontender. Skin is warm and dry. No rash. Peripheral pulses are palpable and symmetrical. Patient's vital signs were reviewed and she is markedly hypertensive with a blood pressure 250/126. Vital Signs During ED Visit Patient Vitals for the past 24 hrs: BP Temp Temp src Pulse Resp SpO2 Height Weight 05/22/23 1820 (!) 220/104 -- -- 61 17 94 % -- -- 05/22/23 1800 (!) 195/97 -- -- 62 19 93 % -- -- 05/22/23 1749 (!) 188/92 -- -- -- -- -- -- -- 05/22/23 1730 199/87 -- -- 61 18 94 % -- -- 05/22/23 1700 197/85 -- -- 61 18 94 % -- -- 05/22/23 1654 -- -- -- -- -- 94 % -- -- 05/22/23 1648 -- -- -- -- -- -- 1.651 m (5' 5 ) 127 kg (280 lb) 05/22/23 1646 (!) 250/126 98.6 F (37 C) Oral 66 18 94 % -- -- Orders/Results: EKG: Sinus rhythm at 69 beats per minute. [place] is normal. WA interval is 176 milliseconds. QRS duration 78 milliseconds. There is some baseline irregularity and nonspecific ST T wave changes. T-wave inversion in V1 and lead 3. This may be normal variant. There is a little flattening of the anterior lateral ST segments. No acute ST elevation. There is some coping now the ST segments. Q-waves are present in lead 3. It is similar to previous tracing done January 29, 2022. Orders Placed This Encounter XR CHEST PA AND LATERAL CT HEAD WITHOUT CONTRAST Troponin I, High sensitivity COMPREHENSIVE METABOLIC PANEL CBC, EDIF, PLATELET B-TYPE NATRIURETIC PEPTIDE (BRAIN) ECG LORazepam (ATIVAN) injection 1 mg hydrALAZINE (APRESOLINE) injection 5 mg DISCONTD: niCARdipine in sodium chloride (CARDENE) 20 mg/200 mL premix IV infusion LORazepam (ATIVAN) injection 0.5 mg niCARdipine in sodium chloride (CARDENE) 20 mg/200 mL premix IV infusion URINALYSIS, MACRO Results for orders placed or performed during the hospital encounter of 05/22/23 TROPONIN I, HIGH SENSITIVITY Result Value Ref Range TROPONIN I, HIGH SENSITIVITY 5 0 - 12 pg/mL COMPREHENSIVE METABOLIC PANEL Result Value Ref Range Glucose 111 (H) 70 - 100 MG/DL BUN 20 7 - 20 MG/DL CREATININE SERUM 0.79 0.70 - 1.20 MG/DL SODIUM 142 137 - 145 MMOL/L POTASSIUM 4.3 3.5 - 5.1 MMOL/L CHLORIDE 108 (H) 98 - 107 MMOL/L CALCIUM 9.0 8.4 - 10.2 MG/DL PROTEIN, TOTAL 6.5 6.3 - 8.2 GM/DL Albumin 4.2 3.5 - 5.0 G/dl BILIRUBIN, TOTAL 0.8 0.2 - 1.3 MG/DL AST 49 (H) 14 - 36 IU/L ALKALINE PHOSPHATASE 86 38 - 126 IU/L CARBON DIOXIDE (CO2) 27 22 - 30 MMOL/L A/G Ratio 1.8 RATIO ALT 57 (H) <35 IU/L ESTIMATED GFR, NON AMER 78 ml/min/1.73sq.m ESTIMATED GFR, 95 ml/min/1.73sq.m GFR COMMENT Average GFR for 60-69 years old = 85. CBC, EDIF, PLATELET Result Value Ref Range WBC (WHITE BLOOD COUNT) 5.1 3.6 - 11.0 10*3/uL RBC 4.55 4.0 - 5.4 10*6/uL HEMOGLOBIN (HGB) 14.1 12.0 - 16.0 G/DL HEMATOCRIT (HCT) 41.6 36.0 - 48.0 % MEAN CELL VOLUME 91.3 80.0 - 100.0 FL Mean Cell HGB 31.1 26.0 - 35.0 PG MEAN CELL HGB CONCENTRATION 34.0 27.0 - 37.0 G/DL RBC DISTRIBUTION 13.2 11.5 - 14.5 % PLATELET COUNT 110 (L) 130 - 400 10*3/uL MEAN PLATELET VOLUME 9.1 7.4 - 11.0 FL DIFFERENTIAL TYPE AUTO DIFF % NEUTROPHILS 67.5 37.0 - 75.0 % LYMPHOCYTE 20.0 20.0 - 55.0 % MONOCYTE % 5.7 0.0 - 10.0 % EOSINOPHIL % 6.2 0.0 - 11.0 % BASOPHIL % 0.6 0.0 - 2.0 % Absolute Neutrophil Count 3.4 1.4 - 6.5 10*3/uL LYMPHOCYTES, ABSOLUTE 1.0 (L) 1.2 - 3.4 10*3/uL MONOCYTES, ABSOLUTE 0.3 0.0 - 0.7 10*3/uL ABSOLUTE EOSINOPHIL COUNT 0.3 0.0 - 0.7 10*3/uL ABSOLUTE BASOPHIL COUNT 0.0 0.0 - 0.2 10*3/uL B-TYPE NATRIURETIC PEPTIDE (BRAIN) Result Value Ref Range BRAIN NATRIURETIC PEPTIDE 89 pg/mL Radiographic Imaging CT HEAD WITHOUT CONTRAST Final Result IMPRESSION: Age-appropriate atrophy and small vessel ischemic changes. No evidence of intracranial hemorrhage or other acute finding. XR CHEST PA AND LATERAL Final Result Findings and impression: 1. No acute pulmonary disease. 2. Stable cardiomegaly. 3. No acute osseous abnormality. Orthopedic plate again seen over the lower cervical region. Procedures: Procedures Moderate Sedation Procedure: No ED Summary/MDM 17:49 - patient was initially treated with Ativan 1 mg IV. I had ordered IV Cardene. However the patient's blood pressure is down to 188/92 with the Ativan. I held the IV guarding at this time. She is much more comfortable. I am going to give her an additional 0.5 mg of IV Ativan at this time. Total dose 1.5 mg IV Ativan. Patient is more comfortable but her blood pressure is 220/104. At this time I have started on a Cardene drip. I spoke with Dr. Villalobos and the patient be placed in the ICU for further definitive care. I discussed this with the patient who voiced understanding and agreement with this. I spoke to the nursing auto mechanic supervisor who is making arrangements for a bed Clinical Impression: 1. Hypertensive urgency 2. Acute intractable headache, unspecified headache type 3. Anxiety No follow-ups on file. New Prescriptions No medications on file Discontinued Medications No medications on file An After Visit Summary was printed and given to the patient with above information. . Jose Eduardo Dumont MD 05/22/23 1859 documented in this encounter [facility] 05-22-20[address] Emergency department [address] Dr Adan for dr Dumont notifying him of Dr. Pimentel accepting pt. [facility] 05-22-2023 Emergency department Note Bed assignment# [id number] [facility] 05-22-2023 Emergency department Note Report to ARLEEN Ledesma [facility] 05-22-[address] Dumont at [facility]. [facility] 05-22-2023 Physician Emergency department Note Emergency Room Note [facility] EMERGENCY DEPARTMENT Service Date:.05/22/23 PCP: Leticia Sylvester Chief Complaint: Chief Complaint Patient presents with Hypertension States was at the store and checked bp and it was increased. C/o of chest pain and shortness of breath since yesterday. HPI Micheline Fox is a 63 y.o. female presents to the ED today due to I feel horrible. Patient tells me she has a long history of hypertension which is not controlled well. She last saw Dr. Michelle 3 weeks ago. States medications were adjusted at that time but her systolic pressure is maintained over 200 since then. She went to the pharmacy today for something. She took her blood pressure and the systolic number was 250 in the diastolic number was over 100. She spoke with the pharmacist. She states she was told to come to the hospital and this has made her very anxious. She now states she has a headache and feels very anxious and jittery. She tells me she hurts all over but this is not out of the ordinary. Review of Systems: Review of Systems No fever or chills. No chest pain or shortness of breath. She is not complained of any cough, sore throat, or other upper respiratory complaints. She states she is had diarrhea since yesterday. No nausea or vomiting. No dysuria. She denies falls or trauma. She does complaining of diffuse, global headache. No visual changes. No change in smell or taste. Patient's [place] automated prescription reporting System report was reviewed. She has an opioid risk factor score of 66. She is regularly on alprazolam. She is regularly on Eszopiclone. Past Medical History: Past Medical History: Diagnosis Date Adverse drug reaction Possible drug reaction to Sovaldi and Ribavirin but not confirmed. Anxiety Chronic hepatitis C without mention of hepatic coma Depression Hernia of abdominal cavity 2011 Hypertension Kidney infection Liver cirrhosis Obesity Shingles Past Surgical History: Past Surgical History: Procedure Laterality Date EGD DIAGNOSTIC N/A 11/13/2020 Laterality: N/A; Surgeon: Isael Hall MD; Location: [facility] ENDOSCOPY REPAIR HERNIA VENTRAL OPEN W/ MESH N/A 07/16/2016 Laterality: N/A; Surgeon: Jake Hurtado MD; Location: [facility] MAIN OR HEART CATHETERIZATION Apr 2015 GASTRIC BYPASS 1996 HYSTERECTOMY 1987 BACK SURGERY HARDWARE L 4-5 CERVICAL LAMINECTOMY C 4-5 HERNIA REPAIR x4 Allergies: Allergies Allergen Reactions Fentanyl Itching Toradol [Ketorolac Tromethamine] Hives and Pain Codeine Latex Hives and Rash Penicillins Medications: Patient's Medications New Prescriptions No medications on file Previous Medications ALBUTEROL 108 (90 BASE) MCG/ACT AERO SOLN INHALER Inhale 1 puff every 6 hours as needed. ALPRAZOLAM 1 MG TABLET Take by mouth daily. ALPRAZOLAM 1 MG TABLET Xanax 1 mg oral tablet take 1 tablet (1 mg) by oral route BID prn Suspended AMLODIPINE 2.5 MG TABLET Norvasc 2.5 mg oral tablet take 1 tablet (2.5 mg) by oral route once daily Suspended ASPIRIN [address] TABLET Aspir-81 81 mg oral tablet,delayed release (DR/EC) take 1 tablet (81 mg) by oral route once daily Suspended ATORVASTATIN 20 MG TABLET atorvastatin 20 mg oral tablet take 1 tablet (20 mg) by oral route once daily at bedtime Suspended BREXPIPRAZOLE 2 MG TABLET Take by mouth daily. BUMETANIDE 1 MG TABLET Take 1 tablet by mouth daily. CHOLECALCIFEROL 50 MCG (2000 UT) TABLET Vitamin D3 2,000 unit oral tablet take tablet by oral route daily Active CYCLOBENZAPRINE 10 MG TABLET Take 1 tablet by mouth 3 times daily as needed for Muscle spasms. DESVENLAFAXINE ER 100 MG TAB SR 24 HR Take by mouth daily. DOCUSATE 100 MG CAP take 1 capsule by mouth 2 times daily. DOCUSATE 100 MG CAPSULE Take 2 capsules by mouth Twice daily. DULOXETINE [address] PARTICLES CAPSULE DR Take 1 capsule by mouth daily. DULOXETINE [address] PARTICLES [address]LE DR duloxetine 60 mg oral capsule,delayed release(DR/EC) take 1 capsule (60 mg) by oral route once daily Active ESOMEPRAZOLE [address] CAPSULE take 1 capsule by mouth daily THIRTY MINUTES BEFORE BREAKFAST ESZOPICLONE 2 MG TABLET Take by mouth at bedtime. FUROSEMIDE 20 MG TABLET Lasix 20 mg oral tablet take 1 tablet (20 mg) by oral route 2 times per day Suspended HYDRALAZINE 25 MG TABLET Take 1 tablet by mouth 3 times daily. HYDRALAZINE 50 MG TABLET Take 1 tablet by mouth 3 times daily. IPRATROPIUM-ALBUTEROL 0.5-2.5 (3) MG/3ML NEBULIZER SOLUTION Take 3 mL by nebulization every 6 hours as needed. LISINOPRIL 10 MG TABLET lisinopril 10 mg oral tablet take 1 tablet (10 mg) by oral route once daily Suspended LOSARTAN 50 MG TABLET Take 1 tablet by mouth daily. LOSARTAN 50 MG TABLET 2 tablets. METOLAZONE 2.5 MG TABLET Take 1 tablet by mouth once a week. Tuesdays METOPROLOL 25 MG TAB REGULAR RELEASE Take 1 tablet by mouth 2 times daily. METOPROLOL SUCCINATE 25 MG TABLET XL metoprolol succinate 25 mg oral tablet extended release 24 hr take 1 tablet (25 mg) by oral route once daily Active NIFEDIPINE 60 MG (OSM) TABLET XL ONDANSETRON 4 MG TAB DISPERSIBLE TABLET Take 1 tablet by mouth every 4 hours as needed for Nausea. Place on tongue OSELTAMIVIR 75 MG CAPSULE Take by mouth 2 times daily. PANTOPRAZOLE [address] TABLET DR pantoprazole 40 mg oral tablet,delayed release (DR/EC) take 1 tablet (40 mg) by oral route once daily Active POTASSIUM CHLORIDE 10 MEQ TAB CR TABLET ER Not taking POTASSIUM CHLORIDE 20 MEQ TAB CR TABLET Take by mouth daily. Is unsure of dose SERTRALINE 100 MG TABLET Zoloft 100 mg oral tablet take 1 tablet (100 mg) by oral route once daily Suspended SERTRALINE 50 MG TABLET sertraline 50 mg oral tablet take 1 tablet (50 mg) by oral route once daily Suspended TIZANIDINE 4 MG TABLET take 1 tablet by mouth three times a day if needed TOPIRAMATE 25 MG TABLET Take 50 mg every evening TOPIRAMATE 25 MG TABLET Take 2 tablets by mouth. TOPIRAMATE 25 MG TABLET Topamax 25 mg tablet take 1 tablet (25 mg) by oral route once daily Active TRAZODONE 300 MG TABLET Take 1 tablet by mouth At bedtime. Modified Medications No medications on file Discontinued Medications No medications on file Family History: Family History Problem Relation Age of Onset Stroke Mother TIA -04/29/16 Coronary Artery Disease Father Other - Specify Father Hypertension Father Dementia Father Heart Failure Father Hypertension Brother Social History: Social History Socioeconomic History Marital status: Spouse name: Not on file Number of children: Not on file Years of education: Not on file Highest education level: Not on file Occupational History Not on file Tobacco Use Smoking status: Former Packs/day: 0.30 Years: 30.00 Total pack years: 9.00 Types: Cigarettes Quit date: 02/18/2015 Years since quittin.2 Smokeless tobacco: Never Vaping Use Vaping Use: Former Substance and Sexual Activity Alcohol use: Yes Comment: occasionally Drug use: No Sexual activity: Not on file Other Topics Concern Not on file Social History Narrative Not on file Social Determinants of Health Financial Resource Strain: Not on file Food Insecurity: Not on file Transportation Needs: Not on file Physical Activity: Not on file Stress: Not on file Social Connections: Not on file Intimate Partner Violence: Not on file Housing Stability: Not on file Physical Exam: Physical Exam This is an obese 63-year-old female is awake and alert. She is very anxious but is oriented to person, place, time and will respond appropriately. She moves all 4 extremities on command. Cranial nerves 2-12 grossly intact. There is no obvious facial drooping no focal deficits. I see no signs of trauma on HEENT exam. Pupils are reactive. Extraocular movements are grossly intact. Sclerae and conjunctiva clear moist. Mouth has pink moist mucosa. She speaks in a normal voice and she handle secretions without difficulty. Her neck is supple her trachea is midline. There is no obvious JVD. Lungs do have symmetrical breath sounds. Heart is regular. Abdomen is soft and nontender. Skin is warm and dry. No rash. Peripheral pulses are palpable and symmetrical. Patient's vital signs were reviewed and she is markedly hypertensive with a blood pressure 250/126. Vital Signs During ED Visit Patient Vitals for the past 24 hrs: BP Temp Temp src Pulse Resp SpO2 Height Weight 05/22/23 1820 (!) 220/104 -- -- 61 17 94 % -- -- 05/22/23 1800 (!) 195/97 -- -- 62 19 93 % -- -- 05/22/23 1749 (!) 188/92 -- -- -- -- -- -- -- 05/22/23 1730 199/87 -- -- 61 18 94 % -- -- 05/22/23 1700 197/85 -- -- 61 18 94 % -- -- 05/22/23 1654 -- -- -- -- -- 94 % -- -- 05/22/23 1648 -- -- -- -- -- -- 1.651 m (5' 5 ) 127 kg (280 lb) 05/22/23 1646 (!) 250/126 98.6 F (37 C) Oral 66 18 94 % -- -- Orders/Results: EKG: Sinus rhythm at 69 beats per minute. [place] is normal. WA interval is 176 milliseconds. QRS duration 78 milliseconds. There is some baseline irregularity and nonspecific ST T wave changes. T-wave inversion in V1 and lead 3. This may be normal variant. There is a little flattening of the anterior lateral ST segments. No acute ST elevation. There is some coping now the ST segments. Q-waves are present in lead 3. It is similar to previous tracing done January 29, 2022. Orders Placed This Encounter XR CHEST PA AND LATERAL CT HEAD WITHOUT CONTRAST Troponin I, High sensitivity COMPREHENSIVE METABOLIC PANEL CBC, EDIF, PLATELET B-TYPE NATRIURETIC PEPTIDE (BRAIN) ECG LORazepam (ATIVAN) injection 1 mg hydrALAZINE (APRESOLINE) injection 5 mg DISCONTD: niCARdipine in sodium chloride (CARDENE) 20 mg/200 mL premix IV infusion LORazepam (ATIVAN) injection 0.5 mg niCARdipine in sodium chloride (CARDENE) 20 mg/200 mL premix IV infusion URINALYSIS, MACRO Results for orders placed or performed during the hospital encounter of 05/22/23 TROPONIN I, HIGH SENSITIVITY Result Value Ref Range TROPONIN I, HIGH SENSITIVITY 5 0 - 12 pg/mL COMPREHENSIVE METABOLIC PANEL Result Value Ref Range Glucose 111 (H) 70 - 100 MG/DL BUN 20 7 - 20 MG/DL CREATININE SERUM 0.79 0.70 - 1.20 MG/DL SODIUM 142 137 - 145 MMOL/L POTASSIUM 4.3 3.5 - 5.1 MMOL/L CHLORIDE 108 (H) 98 - 107 MMOL/L CALCIUM 9.0 8.4 - 10.2 MG/DL PROTEIN, TOTAL 6.5 6.3 - 8.2 GM/DL Albumin 4.2 3.5 - 5.0 G/dl BILIRUBIN, TOTAL 0.8 0.2 - 1.3 MG/DL AST 49 (H) 14 - 36 IU/L ALKALINE PHOSPHATASE 86 38 - 126 IU/L CARBON DIOXIDE (CO2) 27 22 - 30 MMOL/L A/G Ratio 1.8 RATIO ALT 57 (H) <35 IU/L ESTIMATED GFR, NON AMER 78 ml/min/1.73sq.m ESTIMATED GFR, 95 ml/min/1.73sq.m GFR COMMENT Average GFR for 60-69 years old = 85. CBC, EDIF, PLATELET Result Value Ref Range WBC (WHITE BLOOD COUNT) 5.1 3.6 - 11.0 10*3/uL RBC 4.55 4.0 - 5.4 10*6/uL HEMOGLOBIN (HGB) 14.1 12.0 - 16.0 G/DL HEMATOCRIT (HCT) 41.6 36.0 - 48.0 % MEAN CELL VOLUME 91.3 80.0 - 100.0 FL Mean Cell HGB 31.1 26.0 - 35.0 PG MEAN CELL HGB CONCENTRATION 34.0 27.0 - 37.0 G/DL RBC DISTRIBUTION 13.2 11.5 - 14.5 % PLATELET COUNT 110 (L) 130 - 400 10*3/uL MEAN PLATELET VOLUME 9.1 7.4 - 11.0 FL DIFFERENTIAL TYPE AUTO DIFF % NEUTROPHILS 67.5 37.0 - 75.0 % LYMPHOCYTE 20.0 20.0 - 55.0 % MONOCYTE % 5.7 0.0 - 10.0 % EOSINOPHIL % 6.2 0.0 - 11.0 % BASOPHIL % 0.6 0.0 - 2.0 % Absolute Neutrophil Count 3.4 1.4 - 6.5 10*3/uL LYMPHOCYTES, ABSOLUTE 1.0 (L) 1.2 - 3.4 10*3/uL MONOCYTES, ABSOLUTE 0.3 0.0 - 0.7 10*3/uL ABSOLUTE EOSINOPHIL COUNT 0.3 0.0 - 0.7 10*3/uL ABSOLUTE BASOPHIL COUNT 0.0 0.0 - 0.2 10*3/uL B-TYPE NATRIURETIC PEPTIDE (BRAIN) Result Value Ref Range BRAIN NATRIURETIC PEPTIDE 89 pg/mL Radiographic Imaging CT HEAD WITHOUT CONTRAST Final Result IMPRESSION: Age-appropriate atrophy and small vessel ischemic changes. No evidence of intracranial hemorrhage or other acute finding. XR CHEST PA AND LATERAL Final Result Findings and impression: 1. No acute pulmonary disease. 2. Stable cardiomegaly. 3. No acute osseous abnormality. Orthopedic plate again seen over the lower cervical region. Procedures: Procedures Moderate Sedation Procedure: No ED Summary/MDM 17:49 - patient was initially treated with Ativan 1 mg IV. I had ordered IV Cardene. However the patient's blood pressure is down to 188/92 with the Ativan. I held the IV guarding at this time. She is much more comfortable. I am going to give her an additional 0.5 mg of IV Ativan at this time. Total dose 1.5 mg IV Ativan. Patient is more comfortable but her blood pressure is 220/104. At this time I have started on a Cardene drip. I spoke with Dr. Villalobos and the patient be placed in the ICU for further definitive care. I discussed this with the patient who voiced understanding and agreement with this. I spoke to the nursing auto mechanic supervisor who is making arrangements for a bed Clinical Impression: 1. Hypertensive urgency 2. Acute intractable headache, unspecified headache type 3. Anxiety No follow-ups on file. New Prescriptions No medications on file Discontinued Medications No medications on file An After Visit Summary was printed and given to the patient with above information. . Jose Eduardo Dumont MD 05/22/23 [id number] [facility] 04-17-2023 History of Present illness Narrative OFFICE CONSULTATION NOTE [facility] [address] ([address]) [facility] [address] [facility] [id number] Physicians: Leticia Sylvester MD (Family); Leticia Sylvester MD (Referring) Assessment & Plan: 62 yo F seen in consultation for leg pain. Pain in L popliteal fossa. Tender to palpation, radiates to include thigh, posterior L knee, and L leg. +straight leg raise. She has palpable pedal pulses, no sign of DVT clinically or on US. This does not seem to be a vascular-related pain. Recommendation would be for further investigation by primary care provider into other etiologies - spine, neurologic, muscular, joint. At this time, Ms. Fox may followup with me on an as needed basis. -F/U PRN Subjective: HPI: 62 yo F seen in consultation for leg pain. She reports pain has been present for a month. No obvious antecedent event - trauma, injury, etc. Pain is located posterior L knee, ie in the popliteal fossa. Does radiates up her left leg to her thigh as well down her left leg. Pain is present at all times but worse with walking. Outpatient Medications as of 04/17/2023 Medication Sig albuterol 90 mcg/actuation inhaler Inhale 2 (two) puffs every 6 (six) hours as needed for wheezing . (Patient taking differently: Inhale 1 (one) puff every 6 (six) hours as needed for wheezing .) ALPRAZolam (XANAX) 1 MG tablet Take 1 (one) tablet (1 mg total) by mouth 2 (two) times a day . brexpiprazole (Rexulti) 2 mg Tab Take 1 (one) tablet (2 mg total) by mouth daily . docusate sodium (COLACE) 100 MG capsule Take 1 (one) capsule (100 mg total) by mouth 2 (two) times a day . DULoxetine (CYMBALTA) 60 MG capsule Take 1 (one) capsule (60 mg total) by mouth daily . eszopiclone (LUNESTA) 2 MG tablet Take 1 (one) tablet (2 mg total) by mouth at bedtime . ipratropium-albuteroL (DUO-NEB) 0.5-2.5 mg/3 ml nebulizer Take 3 mL by nebulization every 6 (six) hours as needed . L-Methylfolate 15 mg Tab Take 1 (one) tablet (15 mg total) by mouth daily . losartan (COZAAR) 50 MG tablet Take 1 (one) tablet (50 mg total) by mouth daily . metoprolol tartrate (LOPRESSOR) 25 MG tablet Take 1 (one) tablet (25 mg total) by mouth 2 (two) times a day . tiZANidine (ZANAFLEX) 4 MG tablet Take 1 (one) tablet (4 mg total) by mouth 3 (three) times a day as needed . traZODone (DESYREL) 100 MG tablet Take 3 (three) tablets (300 mg total) by mouth at bedtime . [DISCONTINUED] desvenlafaxine succinate (PRISTIQ) 100 MG 24 hr tablet Take 1 (one) tablet (100 mg total) by mouth daily . metOLazone (ZAROXOLYN) 2.5 MG tablet Take 1 (one) tablet (2.5 mg total) by mouth once a week every Thursday . [DISCONTINUED] amLODIPine (NORVASC) 2.5 MG tablet Take 1 (one) tablet (2.5 mg total) by mouth daily . [DISCONTINUED] aspirin 81 MG EC tablet Take 1 (one) tablet (81 mg total) by mouth daily . [DISCONTINUED] atorvastatin (LIPITOR) 20 MG tablet Take 1 (one) tablet (20 mg total) by mouth at bedtime . [DISCONTINUED] bumetanide (BUMEX) 1 MG tablet Take 1 (one) tablet (1 mg total) by mouth daily . [DISCONTINUED] cholecalciferol, vitamin D3, 50 mcg (2,000 unit) Tab Take 400 Units by mouth daily . [DISCONTINUED] conjugated estrogens (PREMARIN) vaginal cream Insert into the vagina twice weekly . [DISCONTINUED] cyclobenzaprine (FLEXERIL) 10 MG tablet Take 1 (one) tablet (10 mg total) by mouth 3 (three) times a day as needed for muscle spasms . [DISCONTINUED] dicyclomine (BENTYL) 20 mg tablet Take 1 (one) tablet (20 mg total) by mouth 3 (three) times a day as needed (abdominal cramping) . (Patient not taking: Reported on 04/17/2023 .) [DISCONTINUED] esomeprazole (NEXIUM) 40 MG capsule Take 1 (one) capsule (40 mg total) by mouth every morning before breakfast . [DISCONTINUED] furosemide (LASIX) 20 MG tablet Take 1 (one) tablet (20 mg total) by mouth 2 (two) times a day . [DISCONTINUED] hydrALAZINE (APRESOLINE) 25 MG tablet Take 1 (one) tablet (25 mg total) by mouth 3 (three) times a day . [DISCONTINUED] lisinopriL (PRINIVIL,ZESTRIL) 10 MG tablet Take 1 (one) tablet (10 mg total) by mouth daily . [DISCONTINUED] metoprolol succinate (Toprol XL) 25 MG 24 hr tablet Take 1 (one) tablet (25 mg total) by mouth daily . [DISCONTINUED] ondansetron (Zofran ODT) 4 MG disintegrating tablet Dissolve 1 (one) tablet (4 mg total) on top of tongue every 4 (four) hours as needed for nausea . (Patient not taking: Reported on 04/17/2023 .) [DISCONTINUED] oseltamivir (TAMIFLU) 75 MG capsule Take 1 (one) capsule (75 mg total) by mouth 2 (two) times a day . [DISCONTINUED] pantoprazole (PROTONIX) 40 MG tablet Take 1 (one) tablet (40 mg total) by mouth daily . [DISCONTINUED] potassium chloride SA (K-DUR,KLOR-CON) 20 MEQ tablet Take 1 (one) tablet (20 mEq total) by mouth daily . [DISCONTINUED] sertraline (ZOLOFT) 100 MG tablet Take 1 (one) tablet (100 mg total) by mouth daily . [DISCONTINUED] topiramate (TOPAMAX) 25 MG tablet Take 2 (two) tablets (50 mg total) by mouth every evening . [DISCONTINUED] trimethoprim (TRIMPEX) 100 mg tablet Take 1 (one) tablet (100 mg total) by mouth daily . Histories: Past Medical History: Diagnosis Date Arthritis Asthma Cirrhosis (HCC) Hepatitis C History of cardiac cath 07/01/2019 Hypertension PONV (postoperative nausea and vomiting) most recent Sleep apnea, obstructive Does not use machine Past Surgical History: Procedure Laterality Date BACK SURGERY 2000 Hardware L4-5 CARDIAC CATHETERIZATION 04/2015 CHOLECYSTECTOMY COLONOSCOPY N/A 07/29/2019 Procedure: COLONOSCOPY; Surgeon: Joe Colón MD; Location: [facility] Endo; Service: Gastroenterology EGD N/A 07/29/2019 Procedure: ESOPHAGOGASTRODUODENOSCOPY; Surgeon: Joe Colón MD; Location: [facility] Endo; Service: Gastroenterology ESOPHAGOGASTRODUODENOSCOPY 11/13/2020 Isael [facility] GASTRIC BYPASS 1997 LEFT HEART CATH N/A 07/08/2019 Procedure: Left Heart Cath; Surgeon: Hari Acosta MD; Location: [facility]; Service: Cardiovascular HEEL SPUR RESECTION Right 11/14/2020 Procedure: EXCISION HEEL SPUR RIGHT FOOT C-ARM; Surgeon: Digna Enriquez DPM; Location: Main OR; Service: Podiatry HERNIA REPAIR 07/16/2016 Jake Curiel [facility] HYSTERECTOMY 1988 NECK SURGERY 2000 C 4-5 TONSILLECTOMY Family History Problem Relation Age of Onset Stroke Mother TIA-04/29/2016 Melanoma Father Heart attack Father Heart disease Father Hypertension Father Dementia Father Heart failure Father Hypertension Brother No Known Problems Brother Heart disease Maternal Grandmother Heart disease Maternal Grandfather Social History Tobacco Use Smoking status: Former Packs/day: 0.00 Types: Cigarettes Quit date: 2018 Years since quittin.5 Smokeless tobacco: Never Tobacco comments: quit 4 years ago Vaping Use Vaping Use: Never used Substance Use Topics Alcohol use: Yes Comment: Occasionally Drug use: Never Outpatient Medications as of 04/17/2023 Medication Sig albuterol 90 mcg/actuation inhaler Inhale 2 (two) puffs every 6 (six) hours as needed for wheezing . (Patient taking differently: Inhale 1 (one) puff every 6 (six) hours as needed for wheezing .) ALPRAZolam (XANAX) 1 MG tablet Take 1 (one) tablet (1 mg total) by mouth 2 (two) times a day . brexpiprazole (Rexulti) 2 mg Tab Take 1 (one) tablet (2 mg total) by mouth daily . docusate sodium (COLACE) 100 MG capsule Take 1 (one) capsule (100 mg total) by mouth 2 (two) times a day . DULoxetine (CYMBALTA) 60 MG capsule Take 1 (one) capsule (60 mg total) by mouth daily . eszopiclone (LUNESTA) 2 MG tablet Take 1 (one) tablet (2 mg total) by mouth at bedtime . ipratropium-albuteroL (DUO-NEB) 0.5-2.5 mg/3 ml nebulizer Take 3 mL by nebulization every 6 (six) hours as needed . L-Methylfolate 15 mg Tab Take 1 (one) tablet (15 mg total) by mouth daily . losartan (COZAAR) 50 MG tablet Take 1 (one) tablet (50 mg total) by mouth daily . metoprolol tartrate (LOPRESSOR) 25 MG tablet Take 1 (one) tablet (25 mg total) by mouth 2 (two) times a day . tiZANidine (ZANAFLEX) 4 MG tablet Take 1 (one) tablet (4 mg total) by mouth 3 (three) times a day as needed . traZODone (DESYREL) 100 MG tablet Take 3 (three) tablets (300 mg total) by mouth at bedtime . [DISCONTINUED] desvenlafaxine succinate (PRISTIQ) 100 MG 24 hr tablet Take 1 (one) tablet (100 mg total) by mouth daily . metOLazone (ZAROXOLYN) 2.5 MG tablet Take 1 (one) tablet (2.5 mg total) by mouth once a week every Thursday . [DISCONTINUED] amLODIPine (NORVASC) 2.5 MG tablet Take 1 (one) tablet (2.5 mg total) by mouth daily . [DISCONTINUED] aspirin 81 MG EC tablet Take 1 (one) tablet (81 mg total) by mouth daily . [DISCONTINUED] atorvastatin (LIPITOR) 20 MG tablet Take 1 (one) tablet (20 mg total) by mouth at bedtime . [DISCONTINUED] bumetanide (BUMEX) 1 MG tablet Take 1 (one) tablet (1 mg total) by mouth daily . [DISCONTINUED] cholecalciferol, vitamin D3, 50 mcg (2,000 unit) Tab Take 400 Units by mouth daily . [DISCONTINUED] conjugated estrogens (PREMARIN) vaginal cream Insert into the vagina twice weekly . [DISCONTINUED] cyclobenzaprine (FLEXERIL) 10 MG tablet Take 1 (one) tablet (10 mg total) by mouth 3 (three) times a day as needed for muscle spasms . [DISCONTINUED] dicyclomine (BENTYL) 20 mg tablet Take 1 (one) tablet (20 mg total) by mouth 3 (three) times a day as needed (abdominal cramping) . (Patient not taking: Reported on 04/17/2023 .) [DISCONTINUED] esomeprazole (NEXIUM) 40 MG capsule Take 1 (one) capsule (40 mg total) by mouth every morning before breakfast . [DISCONTINUED] furosemide (LASIX) 20 MG tablet Take 1 (one) tablet (20 mg total) by mouth 2 (two) times a day . [DISCONTINUED] hydrALAZINE (APRESOLINE) 25 MG tablet Take 1 (one) tablet (25 mg total) by mouth 3 (three) times a day . [DISCONTINUED] lisinopriL (PRINIVIL,ZESTRIL) 10 MG tablet Take 1 (one) tablet (10 mg total) by mouth daily . [DISCONTINUED] metoprolol succinate (Toprol XL) 25 MG 24 hr tablet Take 1 (one) tablet (25 mg total) by mouth daily . [DISCONTINUED] ondansetron (Zofran ODT) 4 MG disintegrating tablet Dissolve 1 (one) tablet (4 mg total) on top of tongue every 4 (four) hours as needed for nausea . (Patient not taking: Reported on 04/17/2023 .) [DISCONTINUED] oseltamivir (TAMIFLU) 75 MG capsule Take 1 (one) capsule (75 mg total) by mouth 2 (two) times a day . [DISCONTINUED] pantoprazole (PROTONIX) 40 MG tablet Take 1 (one) tablet (40 mg total) by mouth daily . [DISCONTINUED] potassium chloride SA (K-DUR,KLOR-CON) 20 MEQ tablet Take 1 (one) tablet (20 mEq total) by mouth daily . [DISCONTINUED] sertraline (ZOLOFT) 100 MG tablet Take 1 (one) tablet (100 mg total) by mouth daily . [DISCONTINUED] topiramate (TOPAMAX) 25 MG tablet Take 2 (two) tablets (50 mg total) by mouth every evening . [DISCONTINUED] trimethoprim (TRIMPEX) 100 mg tablet Take 1 (one) tablet (100 mg total) by mouth daily . Allergies Allergen Reactions Ct: Iodinated Contrast- Oral And Iv Dye Hives and Itching Toradol [Ketorolac] Hives and Other (See Comments) Pain Codeine Hives Fentanyl Itching Pt does not recall any reaction Latex Hives and Rash Penicillin Itching and Rash Overview of Problems Addressed: No problems updated. Objective: Physical Exam Vitals: Vitals: 04/17/23 1405 04/17/23 1421 BP: (!) 201/123 (!) 211/83 BP Location: Left arm Right arm Patient Position: Sitting Sitting Pulse: (!) 55 (!) 57 Weight: 127.5 kg (281 lb) Height: 5' 5 General: Alert, awake, no distress CV: Bradycardic, regular Pulm: Normal effort Skin: Warm, dry Vasc: Palpable pedal pulses bilaterally. No widened popliteal impulse on exam suggestive of popliteal aneurysm LABS/IMAGING: Venous Duplex (my read): No DVT. 1. Pain in left lower leg Ishaan Raines MD documented in this encounter [facility] 04-17-2023 Instructions Avery Perkins MA - 04/17/2023 2:06 PM EDT How to contact your care team: Provider: MD Malcolm Ashley CNP Jill Bender, PA Nurse: Sofia Pineda RN To reschedule office appointments call scheduling [phone]. In case of an emergency please call 911. When in need of refills please call the phone number listed above. Please include medication name, pharmacy name and specify 30 or 90 day supply. Please check with your pharmacy within 24 hours of your request for refill. You must follow up as directed to continue current refills. Thank you! documented in this encounter [facility] 02-16-2023 Emergency department Note JAQUELIN Lebron at bedside. [facility] 02-16-2023 Emergency department Note JAQUELIN Lebron at bedside. Bed: EFT24 Expected date: Expected time: Means of arrival: Comments: EMS documented in this encounter [facility] 02-16-2023 Emergency department Note Bed: EFT24 Expected date: Expected time: Means of arrival: Comments: EMS [facility] 10-15-2022 History of Present illness Narrative Associated Order(s): CYSTOSCOPY Post-Procedure Diagnose(s): Urinary frequency; Other microscopic hematuria CYSTOSCOPY Date/Time: 10/15/2022 1:00 PM Performed by: Av Delgado MD Authorized by: Av Delgado MD The attending physician was present for the entire procedure. Pre-Procedure: Detailed information of all possible complications and side effects were discussed with the patient, these include but not only; UTI, sepsis, hematuria, incontinence, urethral injury and cardiovascular complications. Informed consent was obtained. Does this procedure require a [place] Protocol? Yes. [place] Protocol is required. Urine was collected for testing. Procedure: Procedure performed: cystoscopyA 360 survey of the bladder was performed. Nurse Note: Review of Systems Constitutional: Negative. HENT: Negative. Eyes: Negative. Respiratory: Negative. Cardiovascular: Negative. Gastrointestinal: Negative. Endocrine: Negative. Genitourinary: Negative. Musculoskeletal: Negative. Skin: Negative. Allergic/Immunologic: Negative. Neurological: Negative. Hematological: Negative. Psychiatric/Behavioral: Negative. Nursing Assessment: Physical Exam Patient comes to us today for cystoscopy for micro hematuria. Lab Results Component Value Date APPEARANCE clear 10/15/2022 COLOR yellow 10/15/2022 SPECIFICGRAV 1.025 10/15/2022 BLOOD santosh 10/15/2022 PH 6.0 10/15/2022 PROTEIN neg 10/15/2022 UROBILINOGEN 0.2 10/15/2022 NITRITE neg 10/15/2022 LEUKOCYTE neg 10/15/2022 LEUKOCESTUR TRACE (A) 01/30/2022 documented in this encounter [facility] 10-15-2022 Procedure note Associated Ord er(s): GENERAL PROCEDURE error [facility] 10-15-2022 Procedure note Associated Ord er(s): GENERAL PROCEDURE Patient Name: Micheline Fox Preprocedure diagnosis Microscopic Hematuria, Urinary Frequency Postprocedure diagnosis Same as above. Procedure Flexible Cystourethroscopy Attending surgeon Av Delgado MD Complications None Indications 62 y.o. female undergoing a flexible cystoscopy for the above mentioned indications. Informed consent was obtained. Findings Cystoscopic findings included one right and left ureteral orifice in the normal anatomic position. Inflamed bladder mucosa with no tumors, masses or stones. The urethral urothelium was within normal limits with no strictures. mild chronic cystitis noted Workup negative for significant pathology. Start trimethoprimdaily, appropriate use and side effects reviewed. [facility] 10-15-2022 Procedure note Associated Ord er(s): GENERAL PROCEDURE error Associated Order(s): GENERAL PROCEDURE Patient Name: Micheline Fox Preprocedure diagnosis Microscopic Hematuria, Urinary Frequency Postprocedure diagnosis Same as above. Procedure Flexible Cystourethroscopy Attending surgeon Av Delgado MD Complications None Indications 62 y.o. female undergoing a flexible cystoscopy for the above mentioned indications. Informed consent was obtained. Findings Cystoscopic findings included one right and left ureteral orifice in the normal anatomic position. Inflamed bladder mucosa with no tumors, masses or stones. The urethral urothelium was within normal limits with no strictures. mild chronic cystitis noted Workup negative for significant pathology. Start trimethoprimdaily, appropriate use and side effects reviewed. documented in this encounter [facility] 10-01-2022 History of Present illness Narrative HISTORY OF PRESENT ILLNESS 62 y.o. female seen today as a new patient for evaluation of hematuria. Patient denies gross hematuria. Reports wetting and spotting of her pads with nonspecific discharge. She has symptoms of pelvic pain, lower back pain. Patient reports Urge and stress incontinence, she wears 2-3 depends daily. Patient denies smoking. No family history of kidney or bladder cancer. MEDICAL HISTORY: Gastric Bypass, Hernia Repair, Endometriosis, Hepatitis C, Anxiety Former smoker DATA REVIEWED: Creat.- 0.94- 09/01/22 A1C- 4.8- 04/23/22 Referring Provider Progress Notes Outside facility CT Urinalysis PVR- 16 ASSESSMENT AND PLAN: 1.) Gross hematuria/discharge -Cytology -CT Urogram -Cystoscopy History Allergies Allergen Reactions Fentanyl Itching Toradol [Ketorolac Tromethamine] Hives and Pain Codeine Latex Hives and Rash Penicillins has Ventral hernia, unspecified, without mention of obstruction or gangrene; Class 3 severe obesity due to excess calories with serious comorbidity and body mass index (BMI) of 45.0 to 49.9 in adult; S/P hernia repair; Left upper quadrant abdominal pain; S/P bariatric surgery; Chest pain; UTI (urinary tract infection); Hypokalemia; Vitamin D deficiency; Dehydration; Anxiety; Chronic hepatitis C virus infection; Hypertensive urgency; KELLY (obstructive sleep apnea); Leukopenia; and Thrombocytopenia on their problem list. family history includes Coronary Artery Disease in her father; Dementia in her father; Heart Failure in her father; Hypertension in her brother and father; Other - Specify in her father; Stroke in her mother. Past Medical History: Diagnosis Date Adverse drug reaction Possible drug reaction to Sovaldi and Ribavirin but not confirmed. Anxiety Chronic hepatitis C without mention of hepatic coma Depression Hernia of abdominal cavity 2011 Hypertension Kidney infection Obesity Shingles Past Surgical History: Procedure Laterality Date EGD DIAGNOSTIC N/A 11/13/2020 Laterality: N/A; Surgeon: Isael Hall MD; Location: [facility] ENDOSCOPY REPAIR HERNIA VENTRAL OPEN W/ MESH N/A 07/16/2016 Laterality: N/A; Surgeon: Jake Hurtado MD; Location: [facility] MAIN OR HEART CATHETERIZATION Apr 2015 GASTRIC BYPASS 1996 HYSTERECTOMY 1987 BACK SURGERY HARDWARE L 4-5 CERVICAL LAMINECTOMY C 4-5 HERNIA REPAIR x4 Social History Tobacco Use Smoking Status Former Packs/day: 0.30 Years: 30.00 Pack years: 9.00 Types: Cigarettes Quit date: 02/18/2015 Years since quittin.6 Smokeless Tobacco Never Social History Substance and Sexual Activity Alcohol Use Yes Comment: occasionally Physical Examination: Vital Signs: Smoking Status Former Constitutional: Oriented to person, place, and time. Appears well developed and well nourished. Eyes: conjunctiva/corneas clear, normal vision Ears/Nose/Mouth Eyes -EOMI. Ears - External normal ear. Hearing normal. Mouth - Lips normal color. Head/Neck: Face symmetrical, trachea midline, Head - Normocephalic. symmetrical. Normal ROM, neck supple. Pulmonary/chest: Normal respiratory effort, non-labored breathing. Abdominal/GI: Soft, non-tender, no organomegaly. Bowel sounds normal. Cardiovascular Normal rate and regular rhythm. No Murmurs or Rubs. Radial Pulses Normal. Circulation Normal. Neurologic: Alert and oriented x3. No focal neurological deficits noted. Extremities: No clubbing, cyanosis, or edema noted, no calf tenderness bilaterally. Skin: Warm and dry.Normal turgor, well-hydrated, no rashes noted. Psych: Normal mood and affect. Behavior is normal. The documentation within this encounter was likely aided with [employer], an electronic wrapper selector device. Please excuse any grammatical errors or omissions that may not have been recognized at the time of this encounter. Nurse Note: Review of Systems Constitutional: Negative. HENT: Negative. Eyes: Negative. Respiratory: Negative. Cardiovascular: Negative. Gastrointestinal: Negative. Endocrine: Negative. Genitourinary: Positive for dysuria, frequency and urgency. Nocturia Musculoskeletal: Negative. Allergic/Immunologic: Negative. Neurological: Negative. Hematological: Negative. Psychiatric/Behavioral: Negative. Nursing Assessment: Physical Exam New patient for hematuria Nocturia 2 x PVR: 16 Lab Results Component Value Date APPEARANCE clear 10/01/2022 COLOR yellow 10/01/2022 SPECIFICGRAV 1.010 10/01/2022 BLOOD neg 10/01/2022 PH 5.0 10/01/2022 PROTEIN neg 10/01/2022 UROBILINOGEN 0.2 10/01/2022 NITRITE neg 10/01/2022 LEUKOCYTE TRACE 10/01/2022 LEUKOCESTUR TRACE (A) 01/30/2022 documented in this encounter [facility] 09-01-2022 Emergency department Note Pt alert, oriented, no signs of distress. Pt discharge instructions reviewed and work excuse handed to pt. Pt placed in wheelchair off unit, room air. Pt escorted by this RN to front entrance. [facility] 09-01-2022 Emergency department Note Pt alert, oriented, no signs of distress. Pt discharge instructions reviewed and work excuse handed to pt. Pt placed in wheelchair off unit, room air. Pt escorted by this RN to front entrance. When medicating this pt for pain, pt refused both acetaminophen and ibuprofen stating I can take both of these medications at home. This RN stated that our concern for pain management that she was still in same 8/10 pain or worse with coming in. Pt still refusing medication. Work note given with discharge papers This RN went to round and discharge on pt at this time. This RN sat with pt and listened to concerns and complaints regarding care received here, pain level and pain management, lab work and IV placement concerning pt allergic reaction. Pt voiced concerns with this RN, This RN sincerely apologized for care and miscommunication with care received. Pt main conerns when leaving room and after going over discharge paperwork were pain was never managed and I feel like I never got treated for my pain and I can't get off for work . This RN stated that I would talk with current provider about both concerns. Provider made aware and orders for medication and work note placed. This RN to bedside to round on patient and see how ED visit has been, pt very upset and crying regarding ED visit today. Pt advised she feels like a pin cushion, we did nothing for her pain and she feels worse then she did when she got here. I expressed understanding regarding the difficulty establishing IV access. PCC came down to try an US IV again, pt is set to be discharged at this time. Staff were unable to establish another IV following Toradol reaction several hours prior. Pt remained tearful. Primary RN made aware of dissatisfaction with care. Bedside report received from Petra BACON Pt had an adverse reaction to the Toradol that was given. She stated that Her hand felt like it was on fire. The IV was pulled, medications were stopped and Provider was notified. Pt developed hives on her left hand and arm minutes after the line was pulled. Emergency Department Report [facility] EMERGENCY DEPARTMENT Service Date:.09/01/22 PCP: Leticia Sylvester Chief Complaint: Chief Complaint Patient presents with Cough Chest Congestion Nausea Diarrhea Started Thursday morning HPI Micheline Fox is a 62 y.o. female presents to the ED with chief complaint of flulike symptoms. Patient states she been feeling ill since Thursday. She has had cough congestion and body aches. She said nausea and diarrhea with occasional vomiting. She states she give a flu shot. She states she has had no sick contacts. She denies any travel. She denies any loss of bowel or bladder control. She states she feels dehydrated. She denies any changes in her medication. There is been no rash, neck stiffness Review of Systems: Review of Systems Review of Systems Constitutional: Positive for malaise. Negative for fever. Positive for chills Skin: negative for rash, bruise, itching HENT: positive for congestion, ear pain, runny nose and sore throat Eyes: negative Cardiovascular: negative for chest pain, palpitations Gastrointestinal: positive for nausea, vomiting, diarrhea. Negative for melena or hematochezia Respiratory: positive for cough with phlegm production. Negative for hemoptysis or wheezing Genitourinary: negative for dysuria, frequency Musculoskeletal: positive for generalized body aches. Negative for fall or trauma Neurological: positive for headache Past Medical History: Past Medical History: Diagnosis Date Adverse drug reaction Possible drug reaction to Sovaldi and Ribavirin but not confirmed. Anxiety Chronic hepatitis C without mention of hepatic coma Depression Hernia of abdominal cavity 2011 Hypertension Kidney infection Obesity Shingles Past Surgical History: Past Surgical History: Procedure Laterality Date EGD DIAGNOSTIC N/A 11/13/2020 Laterality: N/A; Surgeon: Isael Hall MD; Location: [facility] ENDOSCOPY REPAIR HERNIA VENTRAL OPEN W/ MESH N/A 07/16/2016 Laterality: N/A; Surgeon: Jake Hurtado MD; Location: [facility] MAIN OR HEART CATHETERIZATION Apr 2015 GASTRIC BYPASS 1996 HYSTERECTOMY 1987 BACK SURGERY HARDWARE L 4-5 CERVICAL LAMINECTOMY C 4-5 HERNIA REPAIR x4 Allergies: Allergies Allergen Reactions Fentanyl Itching Toradol [Ketorolac Tromethamine] Hives and Pain Codeine Latex Hives and Rash Penicillins Medications: Patient's Medications New Prescriptions NIRMATRELVIR-RITONAVIR (PAXLOVID) 300 MG & 100MG PO CO-PACKAGED TABLETS Take three tablets (2 x nirmatrelvir 150 mg plus 1 x ritonavir 100 mg) twice daily for 5 days. ONDANSETRON 4 MG TAB DISPERSIBLE TABLET Take 1 tablet by mouth every 4 hours as needed for Nausea. Place on tongue Previous Medications ALBUTEROL 108 (90 BASE) MCG/ACT AERO SOLN INHALER Inhale 1 puff every 6 hours as needed. ALPRAZOLAM 1 MG TABLET Take by mouth daily. BREXPIPRAZOLE 2 MG TABLET Take by mouth daily. BUMETANIDE 1 MG TABLET Take 1 mg by mouth daily. DESVENLAFAXINE ER 100 MG TAB SR 24 HR Take by mouth daily. DESVENLAFAXINE SUCCINATE 100 MG TAB SR 24 HR DOCUSATE 100 MG CAP take 1 capsule by mouth 2 times daily. DOCUSATE 100 MG CAPSULE Take 200 mg by mouth Twice daily. DULOXETINE [address] PARTICLES [address]LE DR Take 60 mg by mouth daily. DULOXETINE [address] Take 60 mg by mouth. ESZOPICLONE 2 MG TABLET Take by mouth at bedtime. HYDRALAZINE 25 MG TABLET Take 25 mg by mouth 3 times daily. IPRATROPIUM-ALBUTEROL 0.5-2.5 (3) MG/3ML NEBULIZER SOLUTION Take 3 mL by nebulization every 6 hours as needed. LOSARTAN 50 MG TABLET Take 50 mg by mouth daily. METOLAZONE 2.5 MG TABLET Take 2.5 mg by mouth once a week. Tuesdays METOPROLOL 25 MG TAB REGULAR RELEASE Take 25 mg by mouth 2 times daily. POTASSIUM CHLORIDE 20 MEQ TAB CR TABLET Take by mouth daily. Is unsure of dose TIZANIDINE 4 MG TABLET take 1 tablet by mouth three times a day if needed TOPIRAMATE 25 MG TABLET Take 50 mg every evening TOPIRAMATE 25 MG TABLET Take 50 mg by mouth. TRAZODONE 300 MG TABLET Take 300 mg by mouth At bedtime. Modified Medications No medications on file Discontinued Medications ONDANSETRON 4 MG TAB DISPERSIBLE TABLET Take 4 mg by mouth Every 4 hours as needed. Family History: Family History Problem Relation Age of Onset Stroke Mother TIA -04/29/16 Coronary Artery Disease Father Other - Specify Father Hypertension Father Dementia Father Heart Failure Father Hypertension Brother Social History: Social History Socioeconomic History Marital status: Spouse name: Not on file Number of children: Not on file Years of education: Not on file Highest education level: Not on file Occupational History Not on file Tobacco Use Smoking status: Former Packs/day: 0.30 Years: 30.00 Pack years: 9.00 Types: Cigarettes Quit date: 02/18/2015 Years since quittin.5 Smokeless tobacco: Never Vaping Use Vaping Use: Former Substance and Sexual Activity Alcohol use: Yes Comment: occasionally Drug use: No Sexual activity: Not on file Other Topics Concern Not on file Social History Narrative Not on file Social Determinants of Health Financial Resource Strain: Not on file Food Insecurity: Not on file Transportation Needs: Not on file Physical Activity: Not on file Stress: Not on file Social Connections: Not on file Intimate Partner Violence: Not on file Housing Stability: Not on file Physical Exam: Physical Exam General: well-nourished well- developed HENT: head is atraumatic. Face is symmetric. Mucous membranes are dry Eyes: pupils are equal. Sclerae anicteric Skin: warm, dry. No rash. No petechiae or purpura Abdomen: soft. No distention guarding or rebound Respiratory: clear in all conteh. No rhonchi. No wheezing Heart: heart tones are regular. Capillary refill is brisk. Nailbeds are pink Neurologic: awake and alert and oriented 3. Moving all extremities well. No nuchal rigidity Lymphatic: no anterior posterior cervical lymphadenopathy Musculoskeletal: no evidence of trauma fracture or deformity Psychiatric: cooperative and alert with examiner Vital Signs During ED Visit Patient Vitals for the past 24 hrs: BP Temp Temp src Pulse Resp SpO2 Weight 09/01/22 1602 -- -- -- -- -- -- 131.1 kg (289 lb) 09/01/22 1601 (!) 167/94 98 F (36.7 C) Oral 69 20 96 % -- Orders/Results: Results for orders placed or performed during the hospital encounter of 09/01/22 [facility] 1 - NASOPHARYNGEAL Specimen: NASOPHARYNGEAL; Fluid/Swab Result Value Ref Range SARS COV 2 RNA, QL REAL TIME RT PCR DETECTED (A) NOT DETECTED NARRATIVE -1 This test was performed using isothermal KRANTHI and has been approved as Emergency Use Authorization (EUA) for the qualitative detection [id number] nucleic acid. INFLUENZA A AND B, PCR Result Value Ref Range INFLUENZA A NEGATIVE NEGATIVE INFLUENZA B NEGATIVE NEGATIVE CBC, EDIF, PLATELET Result Value Ref Range WBC (WHITE BLOOD COUNT) 4.0 3.6 - 11.0 10*3/uL RBC 4.72 4.0 - 5.4 10*6/uL HEMOGLOBIN (HGB) 14.5 12.0 - 16.0 G/DL HEMATOCRIT (HCT) 42.8 36.0 - 48.0 % MEAN CELL VOLUME 90.7 80.0 - 100.0 FL Mean Cell HGB 30.8 26.0 - 35.0 PG MEAN CELL HGB CONCENTRATION 34.0 27.0 - 37.0 G/DL RBC DISTRIBUTION 14.5 11.5 - 14.5 % PLATELET COUNT 126 (L) 130.0 - 400.0 10*3/uL MEAN PLATELET VOLUME 10.6 7.4 - 11.0 FL DIFFERENTIAL TYPE PENDING % COMPREHENSIVE METABOLIC PANEL Result Value Ref Range GLUCOSE 106 (H) 70 - 100 MG/DL BUN 14 7 - 20 MG/DL CREATININE SERUM 0.94 0.52 - 1.04 MG/DL SODIUM 140 136 - 145 MMOL/L POTASSIUM 3.2 (L) 3.5 - 5.1 MMOL/L CHLORIDE 103 98 - 107 MMOL/L CALCIUM 9.0 8.4 - 10.2 MG/DL PROTEIN, TOTAL 7.1 6.3 - 8.2 GM/DL Albumin 4.2 3.5 - 5.0 G/dl BILIRUBIN, TOTAL 0.8 0.2 - 1.2 MG/DL AST 28 15 - 41 IU/L ALKALINE PHOSPHATASE 62 38 - 126 IU/L CARBON DIOXIDE (CO2) 28 22 - 30 MMOL/L A/G Ratio 1.4 1.3 - 2.2 RATIO ALT 30 14 - 54 IU/L ESTIMATED GFR, NON AMER 64 ml/min/1.73sq.m ESTIMATED GFR, 78 ml/min/1.73sq.m GFR COMMENT Average GFR for 60-69 years old = 85. Radiographic Imaging XR CHEST PA 1 VIEW Final Result IMPRESSION: The heart is borderline enlarged without cardiac decompensation. The left lung base is partially obscured. There is no clear evidence of a focal infiltrate or effusion. The overall appearance of the chest does not appear to change significantly. Procedures: Procedures Moderate Sedation Procedure: No ED Summary/MDM patient was tested for Covid and found to be positive. Chest x-ray shows no infiltrate failure or pneumonia. Patient was hydrated. She will be placed on paxlovid. Zofran for nausea. During medication infusion patient did develop a rash on her left arm after Toradol was given. She states she has never had a problem with medication in the past. Her IV was removed. She was ordered steroids along with Pepcid. She received the Benadryl. Ketorolac was added to her list of allergies Follow-up with her primary provider. Return of any worsening symptoms Clinical Impression: 1. COVID-19 2. Drug allergy No follow-ups on file. New Prescriptions NIRMATRELVIR-RITONAVIR (PAXLOVID) 300 MG & 100MG PO CO-PACKAGED TABLETS Take three tablets (2 x nirmatrelvir 150 mg plus 1 x ritonavir 100 mg) twice daily for 5 days. ONDANSETRON 4 MG TAB DISPERSIBLE TABLET Take 1 tablet by mouth every 4 hours as needed for Nausea. Place on tongue Discontinued Medications ONDANSETRON 4 MG TAB DISPERSIBLE TABLET Take 4 mg by mouth Every 4 hours as needed. An After Visit Summary was printed and given to the patient with above information. . Bao Hsieh MD 09/01/221840 documented in this encounter [facility] 09-01-2022 Emergency department Note When medicating this pt for pain, pt refused both acetaminophen and ibuprofen stating I can take both of these medications at home. This RN stated that our concern for pain management that she was still in same 8/10 pain or worse with coming in. Pt still refusing medication. Work note given with discharge papers [facility] 09-01-2022 Emergency department Note This RN went to round and discharge on pt at this time. This RN sat with pt and listened to concerns and complaints regarding care received here, pain level and pain management, lab work and IV placement concerning pt allergic reaction. Pt voiced concerns with this RN, This RN sincerely apologized for care and miscommunication with care received. Pt main conerns when leaving room and after going over discharge paperwork were pain was never managed and I feel like I never got treated for my pain and I can't get off for work . This RN stated that I would talk with current provider about both concerns. Provider made aware and orders for medication and work note placed. [facility] 09-01-2022 Emergency department Note This RN to bedside to round on patient and see how ED visit has been, pt very upset and crying regarding ED visit today. Pt advised she feels like a pin cushion, we did nothing for her pain and she feels worse then she did when she got here. I expressed understanding regarding the difficulty establishing IV access. PCC came down to try an US IV again, pt is set to be discharged at this time. Staff were unable to establish another IV following Toradol reaction several hours prior. Pt remained tearful. Primary RN made aware of dissatisfaction with care. [facility] 09-01-2022 Emergency department Note Bedside report received from Petra BACON [facility] 09-01-2022 Emergency department Note Pt had an adverse reaction to the Toradol that was given. She stated that Her hand felt like it was on fire. The IV was pulled, medications were stopped and Provider was notified. Pt developed hives on her left hand and arm minutes after the line was pulled. [facility] 09-01-2022 Physician Emergency department Note Emergency Department Report [facility] EMERGENCY DEPARTMENT Service Date:.09/01/22 PCP: Leticia Sylvester Chief Complaint: Chief Complaint Patient presents with Cough Chest Congestion Nausea Diarrhea Started Thursday morning HPI Micheline Fox is a 62 y.o. female presents to the ED with chief complaint of flulike symptoms. Patient states she been feeling ill since Thursday. She has had cough congestion and body aches. She said nausea and diarrhea with occasional vomiting. She states she give a flu shot. She states she has had no sick contacts. She denies any travel. She denies any loss of bowel or bladder control. She states she feels dehydrated. She denies any changes in her medication. There is been no rash, neck stiffness Review of Systems: Review of Systems Review of Systems Constitutional: Positive for malaise. Negative for fever. Positive for chills Skin: negative for rash, bruise, itching HENT: positive for congestion, ear pain, runny nose and sore throat Eyes: negative Cardiovascular: negative for chest pain, palpitations Gastrointestinal: positive for nausea, vomiting, diarrhea. Negative for melena or hematochezia Respiratory: positive for cough with phlegm production. Negative for hemoptysis or wheezing Genitourinary: negative for dysuria, frequency Musculoskeletal: positive for generalized body aches. Negative for fall or trauma Neurological: positive for headache Past Medical History: Past Medical History: Diagnosis Date Adverse drug reaction Possible drug reaction to Sovaldi and Ribavirin but not confirmed. Anxiety Chronic hepatitis C without mention of hepatic coma Depression Hernia of abdominal cavity 2011 Hypertension Kidney infection Obesity Shingles Past Surgical History: Past Surgical History: Procedure Laterality Date EGD DIAGNOSTIC N/A 11/13/2020 Laterality: N/A; Surgeon: Isael Hall MD; Location: [facility] ENDOSCOPY REPAIR HERNIA VENTRAL OPEN W/ MESH N/A 07/16/2016 Laterality: N/A; Surgeon: Jake Hurtado MD; Location: [facility] MAIN OR HEART CATHETERIZATION Apr 2015 GASTRIC BYPASS 1996 HYSTERECTOMY 1987 BACK SURGERY HARDWARE L 4-5 CERVICAL LAMINECTOMY C 4-5 HERNIA REPAIR x4 Allergies: Allergies Allergen Reactions Fentanyl Itching Toradol [Ketorolac Tromethamine] Hives and Pain Codeine Latex Hives and Rash Penicillins Medications: Patient's Medications New Prescriptions NIRMATRELVIR-RITONAVIR (PAXLOVID) 300 MG & 100MG PO CO-PACKAGED TABLETS Take three tablets (2 x nirmatrelvir 150 mg plus 1 x ritonavir 100 mg) twice daily for 5 days. ONDANSETRON 4 MG TAB DISPERSIBLE TABLET Take 1 tablet by mouth every 4 hours as needed for Nausea. Place on tongue Previous Medications ALBUTEROL 108 (90 BASE) MCG/ACT AERO SOLN INHALER Inhale 1 puff every 6 hours as needed. ALPRAZOLAM 1 MG TABLET Take by mouth daily. BREXPIPRAZOLE 2 MG TABLET Take by mouth daily. BUMETANIDE 1 MG TABLET Take 1 mg by mouth daily. DESVENLAFAXINE ER 100 MG TAB SR 24 HR Take by mouth daily. DESVENLAFAXINE SUCCINATE 100 MG TAB SR 24 HR DOCUSATE 100 MG CAP take 1 capsule by mouth 2 times daily. DOCUSATE 100 MG CAPSULE Take 200 mg by mouth Twice daily. DULOXETINE [address] PARTICLES [address]SULE DR Take 60 mg by mouth daily. DULOXETINE [address] PARTIC[address] Take 60 mg by mouth. ESZOPICLONE 2 MG TABLET Take by mouth at bedtime. HYDRALAZINE 25 MG TABLET Take 25 mg by mouth 3 times daily. IPRATROPIUM-ALBUTEROL 0.5-2.5 (3) MG/3ML NEBULIZER SOLUTION Take 3 mL by nebulization every 6 hours as needed. LOSARTAN 50 MG TABLET Take 50 mg by mouth daily. METOLAZONE 2.5 MG TABLET Take 2.5 mg by mouth once a week. Tuesdays METOPROLOL 25 MG TAB REGULAR RELEASE Take 25 mg by mouth 2 times daily. POTASSIUM CHLORIDE 20 MEQ TAB CR TABLET Take by mouth daily. Is unsure of dose TIZANIDINE 4 MG TABLET take 1 tablet by mouth three times a day if needed TOPIRAMATE 25 MG TABLET Take 50 mg every evening TOPIRAMATE 25 MG TABLET Take 50 mg by mouth. TRAZODONE 300 MG TABLET Take 300 mg by mouth At bedtime. Modified Medications No medications on file Discontinued Medications ONDANSETRON 4 MG TAB DISPERSIBLE TABLET Take 4 mg by mouth Every 4 hours as needed. Family History: Family History Problem Relation Age of Onset Stroke Mother TIA -04/29/16 Coronary Artery Disease Father Other - Specify Father Hypertension Father Dementia Father Heart Failure Father Hypertension Brother Social History: Social History Socioeconomic History Marital status: Spouse name: Not on file Number of children: Not on file Years of education: Not on file Highest education level: Not on file Occupational History Not on file Tobacco Use Smoking status: Former Packs/day: 0.30 Years: 30.00 Pack years: 9.00 Types: Cigarettes Quit date: 02/18/2015 Years since quittin.5 Smokeless tobacco: Never Vaping Use Vaping Use: Former Substance and Sexual Activity Alcohol use: Yes Comment: occasionally Drug use: No Sexual activity: Not on file Other Topics Concern Not on file Social History Narrative Not on file Social Determinants of Health Financial Resource Strain: Not on file Food Insecurity: Not on file Transportation Needs: Not on file Physical Activity: Not on file Stress: Not on file Social Connections: Not on file Intimate Partner Violence: Not on file Housing Stability: Not on file Physical Exam: Physical Exam General: well-nourished well- developed HENT: head is atraumatic. Face is symmetric. Mucous membranes are dry Eyes: pupils are equal. Sclerae anicteric Skin: warm, dry. No rash. No petechiae or purpura Abdomen: soft. No distention guarding or rebound Respiratory: clear in all conteh. No rhonchi. No wheezing Heart: heart tones are regular. Capillary refill is brisk. Nailbeds are pink Neurologic: awake and alert and oriented 3. Moving all extremities well. No nuchal rigidity Lymphatic: no anterior posterior cervical lymphadenopathy Musculoskeletal: no evidence of trauma fracture or deformity Psychiatric: cooperative and alert with examiner Vital Signs During ED Visit Patient Vitals for the past 24 hrs: BP Temp Temp src Pulse Resp SpO2 Weight 09/01/22 1602 -- -- -- -- -- -- 131.1 kg (289 lb) 09/01/22 1601 (!) 167/94 98 F (36.7 C) Oral 69 20 96 % -- Orders/Results: Results for orders placed or performed during the hospital encounter of 09/01/22 [facility] 1 - NASOPHARYNGEAL Specimen: NASOPHARYNGEAL; Fluid/Swab Result Value Ref Range SARS COV 2 RNA, QL REAL TIME RT PCR DETECTED (A) NOT DETECTED NARRATIVE -1 This test was performed using isothermal KRANTHI and has been approved as Emergency Use Authorization (EUA) for the qualitative detection [id number] nucleic acid. INFLUENZA A AND B, PCR Result Value Ref Range INFLUENZA A NEGATIVE NEGATIVE INFLUENZA B NEGATIVE NEGATIVE CBC, EDIF, PLATELET Result Value Ref Range WBC (WHITE BLOOD COUNT) 4.0 3.6 - 11.0 10*3/uL RBC 4.72 4.0 - 5.4 10*6/uL HEMOGLOBIN (HGB) 14.5 12.0 - 16.0 G/DL HEMATOCRIT (HCT) 42.8 36.0 - 48.0 % MEAN CELL VOLUME 90.7 80.0 - 100.0 FL Mean Cell HGB 30.8 26.0 - 35.0 PG MEAN CELL HGB CONCENTRATION 34.0 27.0 - 37.0 G/DL RBC DISTRIBUTION 14.5 11.5 - 14.5 % PLATELET COUNT 126 (L) 130.0 - 400.0 10*3/uL MEAN PLATELET VOLUME 10.6 7.4 - 11.0 FL DIFFERENTIAL TYPE PENDING % COMPREHENSIVE METABOLIC PANEL Result Value Ref Range GLUCOSE 106 (H) 70 - 100 MG/DL BUN 14 7 - 20 MG/DL CREATININE SERUM 0.94 0.52 - 1.04 MG/DL SODIUM 140 136 - 145 MMOL/L POTASSIUM 3.2 (L) 3.5 - 5.1 MMOL/L CHLORIDE 103 98 - 107 MMOL/L CALCIUM 9.0 8.4 - 10.2 MG/DL PROTEIN, TOTAL 7.1 6.3 - 8.2 GM/DL Albumin 4.2 3.5 - 5.0 G/dl BILIRUBIN, TOTAL 0.8 0.2 - 1.2 MG/DL AST 28 15 - 41 IU/L ALKALINE PHOSPHATASE 62 38 - 126 IU/L CARBON DIOXIDE (CO2) 28 22 - 30 MMOL/L A/G Ratio 1.4 1.3 - 2.2 RATIO ALT 30 14 - 54 IU/L ESTIMATED GFR, NON AMER 64 ml/min/1.73sq.m ESTIMATED GFR, 78 ml/min/1.73sq.m GFR COMMENT Average GFR for 60-69 years old = 85. Radiographic Imaging XR CHEST PA 1 VIEW Final Result IMPRESSION: The heart is borderline enlarged without cardiac decompensation. The left lung base is partially obscured. There is no clear evidence of a focal infiltrate or effusion. The overall appearance of the chest does not appear to change significantly. Procedures: Procedures Moderate Sedation Procedure: No ED Summary/MDM patient was tested for Covid and found to be positive. Chest x-ray shows no infiltrate failure or pneumonia. Patient was hydrated. She will be placed on paxlovid. Zofran for nausea. During medication infusion patient did develop a rash on her left arm after Toradol was given. She states she has never had a problem with medication in the past. Her IV was removed. She was ordered steroids along with Pepcid. She received the Benadryl. Ketorolac was added to her list of allergies Follow-up with her primary provider. Return of any worsening symptoms Clinical Impression: 1. COVID-19 2. Drug allergy No follow-ups on file. New Prescriptions NIRMATRELVIR-RITONAVIR (PAXLOVID) 300 MG & 100MG PO CO-PACKAGED TABLETS Take three tablets (2 x nirmatrelvir 150 mg plus 1 x ritonavir 100 mg) twice daily for 5 days. ONDANSETRON 4 MG TAB DISPERSIBLE TABLET Take 1 tablet by mouth every 4 hours as needed for Nausea. Place on tongue Discontinued Medications ONDANSETRON 4 MG TAB DISPERSIBLE TABLET Take 4 mg by mouth Every 4 hours as needed. An After Visit Summary was printed and given to the patient with above information. . Bao Hsieh MD 09/01/221840 [facility] 08-19-2022 History of Present illness Narrative Images from the original note were not included. Department of Gastroenterology GI Clinic Note PCP: Leticia Sylvester Referred by: Referring Provider: Self Patient Last GI Visit: Most recent visit in Gastroenterology was on 04/23/2022 with Eusebia Jones APRN-CONTRACTS DIRECTOR Documentation: Mode: Telephone Patient Patient Work Phone: Patient Cell Preferred phone: [phone] Consent: I confirmed patient understanding of the risks and benefits of telehealth visits and obtained consent to proceed with the telehealth visit. 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 Being seen in GI clinic today for follow up. No etiology of abdominal pain seen on EGD or colonoscopy. She does have non erosive gastritis, 2 cm hiatal hernia, one large sigmoid colon poylp removed and hemorrhoids. She sees blood with bm every time. Feels like something pops out but self reduces. BM is daily Still with RUQ pain, not related to eating. Nausea, no vomiting. Is not on nsaids. Weight has been steady. Denies heartburn or reflux. Reports no NSAID use, very seldom Etoh, no smoking, no elicit drug use. Paternal grandmother and grandfather with CRC No family Hx of stomach cancer, pancreatic cancer or IBD Past medical, surgical, family and social histories reviewed and updated as appropriate. GI procedures reviewed: EGD + colonoscopy 07/2022 IMPRESSION: 1. Mild non-erosive antral gastritis. 2. Endoscopic evidence of probable sleeve gastrectomy. 3. Small (2 cm) hiatal hernia. 4. Large 12mm semi pedunculated sigmoid colon polyp removed. 5. Moderate-sized internal hemorrhoids. A. Gastric, Biopsy Gastric mucosa, no evidence of active gastritis, intestinal metaplasia, granulomas, dysplasia, or neoplasm; no Helicobacter pylori noted. B. Esophagus, Biopsy Squamous mucosa, no evidence of active, eosinophilic or reflux esophagitis, intestinal metaplasia, or dysplasia. C. Sigmoid Colon, Polyp Tubular adenoma of colon, multiple fragments. EGD 06/2015 DUODENUM: bulb notable for polypoid tissue. Biopsies taken, sent for pathology in bottle A. Descending portion appeared normal. STOMACH: pyloric channel, antrum, and body were normal appearing. On retroflexed view, portal hypertensive gastropathy of gastric fundus and cardia noted, but no gastric varices ESOPHAGUS: Diaphragmatic hiatus was 40 cm from incisors and GE junction (upper margin of gastric folds) was at 38 cm from incisors. Squamocolumnar junction was at 38 cm from incisors. Irregular Z line, but no tongues of Bermudez's. Mucosa appeared normal. No esophageal varices Colonoscopy 06/2015 FINDINGS: Cecum: Normal. Ascending Colon: Normal. Hepatic Flexure: Normal. Transverse Colon: Normal. Splenic Flexure: Normal. Descending Colon: Normal. Sigmoid Colon: Normal. Rectum: Abnormal, one sessile, 3mm diminutive appearing polyp noted. Removed using biopsy forceps, sent for pathology in bottle B. Retroflexed Views: Rectum showed skin tags and small internal hemorrhoids. No masses, ulcers, diverticula, or strictures were present. Patient tolerated procedure well. HISTOLOGY: A. Duodenal polyp Fragments of gastric type mucosa transitioning into intestinal mucosa with underyling prominent Manisha glands. No dysplasia seen. B. 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 Imaging reviewed: CT AP 04/2022 IMPRESSION: 1. Mild ground glass/reticular opacities in the right lower lobe suggestive of a resolving/mild infectious process. 2. Cirrhosis with mild hepatomegaly and splenomegaly. Current Medications Outpatient Medications Marked as Taking for the 08/19/22 encounter (Telemedicine) with Mathieson, Eusebia, EXAMINATION SCORER-CONTRACTS DIRECTOR Medication Sig Dispense Refill esomeprazole (NexIUM) 40 MG capsule Take 1 Capsule by mouth daily (30 minutes before breakfast). 30 Capsule 3 sucralfate (CARAFATE) 1 GM tablet Take 1 Tablet by mouth 4 times daily. For upper abdominal pain. 120 Tablet 0 albuterol (PROVENTIL HFA) INHALATION HFA inhaler (VENTOLIN,PROAIR,PROVENTIL) 90mcg Inhale 2 Puffs by mouth. metoprolol (TOPROL-XL) 25 mg XL tablet Take 25 mg by mouth. chlorhexidine (PERIDEX) 0.12 % oral solution Take 15 mL by mouth 2 times daily. 1 Bottle 2 Docusate Sodium (DOC-Q-LACE ORAL) Take by mouth as needed. amLODIPine (NORVASC) 2.5 MG tablet Take 2.5 mg by mouth daily. lisinopril (ZESTRIL) 10 MG tablet Take 10 mg by mouth daily. ammonium lactate (LAC-HYDRIN) 12 % lotion Apply topically 2 times daily. Apply thin layer to affected area. 1 Bottle 3 Sofosbuvir (SOVALDI) 400 MG TABS tablet Take 1 Tablet by mouth daily. 30 Tablet 5 ribavirin (REBETOL) 200 MG capsule Take 2 Capsules by mouth 2 times daily. 150 Capsule 5 topiramate (TOPAMAX) 25 MG tablet Take 25 mg by mouth 2 times daily. trazodone 100 MG tablet Take 100 mg by mouth. GARLIC ORAL Take by mouth. Multiple Vitamin (MULTI-VITAMIN ORAL) Take by mouth daily. aspirin 81 MG tablet Take 81 mg by mouth daily. buPROPion (WELLBUTRIN XL) 300 MG XL tablet Take 300 mg by mouth daily. buPROPion ER (WELLBUTRIN XL) 150 MG XL tablet Take 150 mg by mouth daily. FLUoxetine HCl (PROZAC ORAL) Take 60 mg by mouth daily. furosemide (LASIX) 20 MG tablet Take 20 mg by mouth daily. lisinopril (ZESTRIL) 20 MG tablet Take 20 mg by mouth daily. amLODIPine (NORVASC) 2.5 MG tablet Take 2.5 mg by mouth daily. TYLENOL/CODEINE #3 300-30 MG OR TABS 1 OR 2 TABLETS EVERY 4 TO 6 HOURS NEEDED FOR PAIN 28 0 TRIAMCINOLONE ACETONIDE 0.1 % EX OINT apply bid to area affected 240gm 3 HYDROXYZINE HCL 25 MG OR TABS 1 to 2 tablets qhs 60 2 AMILORIDE-HYDROCHLOROTHIAZIDE 5-50 MG OR TABS 1 TABLET DAILY 30 3 MOTRIN 800 MG OR TABS 1 TABLET 3 TIMES DAILY 90 2 MOTRIN 800 MG OR TABS 1 TABLET every four hours XANAX OR None Entered HYDROCHLOROTHIAZIDE 25 MG OR TABS 1 TABLET DAILY ZOLOFT TABS 100 MG OR 1 TAB PO QD Physical Exam Tele Labs CBC (last 3 years, up to 5 values) WBC RBC Hgb Hct MCV RDW Plt 04/23/22 1248 5.8 4.94 15.2 43.7 89 13.4 137 04/27/20 1437 4.4 4.66 14.2 41.3 89 14.8 106 Basic Metabolic Panel Na K Cl CO2 Gap Glu BUN Cr Ca 04/23/22 1248 139 3.3 100 28 14 111 14 1.33 9.6 04/27/20 1437 141 3.3 105 27 12 97 19 1.05 9.1 LFT's (last 3 years, up to 5 values) T Prot Albumin D Bili T Bili Alk Phos ALT AST 04/23/22 1248 6.4 4.6 0.20 1.0 68 35 29 04/27/20 1437 6.4 4.3 0.10 0.9 67 45 40 INR (no units) Date Value 04/23/2022 1.07 04/27/2020 1.04 09/10/2016 1.13 (H) 04/24/2016 0.99 04/02/2015 1.09 09/17/2011 0.9 04/30/2011 1.0 04/09/2010 1.1 (H) 08/13/2009 1.0 08/18/2008 1.1 (H) Iron Date/Time Value Ref Range Status 04/02/2015 04:41 PM 52 45 - 160 ug/dL Final 08/27/2006 01:20 PM 128 30 - 160 mcg/dL Final TIBC Date/Time Value Ref Range Status 04/02/2015 04:41 PM 364 250 - 410 ug/mL Final 08/27/2006 01:20 PM 444 (H) 250 - 410 mcg/dL Final Ferritin Date/Time Value Ref Range Status 04/02/2015 04:41 PM 70.0 10.3 - 219.0 ng/mL Final 08/27/2006 01:20 PM 308.4 (H) 10.3 - 219.0 ng/mL Final Comment: POST-MENOPAUSAL FEMALE: 10.0 - 280.0 ng/mL Assessment and Plan Micheline FOX is a 62 year old female with PMH of obesity s/p gastric bypass (in the 80s), cholecystectomy, hysterectomy, hernia repair with mesh, Hep C cirrhosis s/p treatment and SVR, compensated cirrhosis and KELLY (not compliant with cpap). Being seen in GI clinic today for follow up. 1. Hiatal hernia 2. Grade I hemorrhoids 3. Early satiety 4. Epigastric pain Plan: Orders & Meds Signed During This Encounter [facility]TY[facility] STUDY GENERAL SURGERY SERVICE REQUEST- colorectal for possible banding esomeprazole (NexIUM) 40 MG capsule A copy of this note was sent to PCP HEATHER Cox [id number] Division of Gastroenterology [facility] documented in this encounter [facility] 08-11-2022 Note Formatting of this n ote is different from the original. Addendum created 08/11/221329 by Lawrence Russell MD Clinical Note Signed [facility] 08-11-2022 Miscellaneous Notes Addendum created 08/11/221329 by Lawrence Russell MD Clinical Note Signed Images from the original note were not included. Patient taken to PACU. Patient was drowsy, comfortable and stable on arrival. Anesthesia Transfer of Care Note Past Medical History: Past Medical History: Diagnosis Date Degeneration of cervical intervertebral disc Degeneration of lumbar or lumbosacral intervertebral disc Hernia of other specified sites of abdominal cavity without mention of obstruction or gangrene R inguinal hernia Sleep Apnea/Positive STOP-BANG: Yes Problem List: Patient Active Problem List: Other chronic nonalcoholic liver disease [K76.89] Nonspecific elevation of levels of transaminase or lactic acid dehydrogenase (LDH) [R74.01, R74.02] Obesity, unspecified [E66.9] Unspecified essential hypertension [I10] Tobacco use disorder [F17.200] Depressive disorder, not elsewhere classified [F32.89] Hernia of other specified sites of abdominal cavity without mention of obstruction or gangrene [K45.8] Degeneration of cervical intervertebral disc [M50.30] Degeneration of lumbar or lumbosacral intervertebral disc [M51.37] Endometriosis of uterus [N80.00] Hepatitis C virus infection cured after antiviral drug therapy [Z86.19] Other malaise and fatigue [R53.81, R53.83] Encounter for long-term (current) use of other medications [Z79.899] Nausea with vomiting [R11.2] Oral aphthae [K12.0] Unspecified disorder of skin and subcutaneous tissue [L98.9] Insomnia, unspecified [G47.00] Drug-induced mood disorder (HCC) [F19.94] 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19] Suture sinus [T81.89XA] Viral hepatitis C [B19.20] Ventral hernia [K43.9] Morbid obesity with BMI of 50.0-59.9, adult (HCC) [E66.01, Z68.43] Obesity [E66.9] Cirrhosis of liver (HCC) [K74.60] Hypertension [I10] Rectal bleeding [K62.5] Change in bowel habits [R19.4] RUQ pain [R10.11] Esophageal dysphagia [R13.19] Past Surgical History: Review of patient's past surgical history indicates: VAGINAL HYSTERECTOMY; W/TOTAL/PARTIAL VAGINECT* (1987) ARTHRODESIS, POSTERIOR TECHNIQUE, ATLAS-AXIS (1999) ARTHRODESIS, POSTERIOR/POSTEROLATERAL TECHNIQU* (1999) UNLISTED PROCEDURE, FOOT/TOES (1999) nerve repair ARTHRODESIS, POSTERIOR/POSTEROLATERAL TECHNIQU* (2000) (2000) Allergies: Fentanyl, Codeine, Latex, Penicillin [penicillin g potassium], and Penicillins Basic Operating Room Facts: Surgeon(s): Jennifer Khoury MD Anesthesiologist: Lawrence Russell MD ACQUISITIONS LIBRARIAN: Kari Bonner APRN-MIMI ESOPHAGOGASTRODUODENOSCOPY AND COLONOSCOPY, GENERAL ANESTHESIA Intraoperative Events: No acute event ASA: 3 EBL: Not documented Urine Not documented Lactated Ringers and NaCl 0.9%: Fluid Totals (Filter: LR and NaCl 0.9% Medications Shown) Medication Calculated Total NaCl 0.9% 300 mL / 1 bag Cell Saver: Not documented Blood Volume Values: Blood Products None MTP Blood: MTP PRBC: Not documented MTP FFP: Not documented MTP PLT: Not documented MTP Cryo: Not documented MTP Whole Blood: Not documented Current Vasoactive Medications: {Vasoactive Medications: None Lines, Drains, Airways Peripheral IV Access: 08/11/22913 22 gauge Left Forearm (Active) Site Assessment WNL;Dressing intact 08/11/22913 Infusion Status Port #1 Infusing 08/11/22913 Airway Adjunct: Non-Rebreather (Active) Airway Insertion Details * No LDAs found * All non-working IVs have been removed: N/A Laboratory Data: CBC (last 3 years, up to 5 values) WBC RBC Hgb Hct MCV RDW Plt 04/23/22 1248 5.8 4.94 15.2 43.7 89 13.4 137 04/27/20 1437 4.4 4.66 14.2 41.3 89 14.8 106 Basic Metabolic Panel Na K Cl CO2 Gap Glu BUN Cr Ca 04/23/22 1248 139 3.3 100 28 14 111 14 1.33 9.6 04/27/20 1437 141 3.3 105 27 12 97 19 1.05 9.1 Basic Metabolic Panel None INR (no units) Date Value 04/23/2022 1.07 04/27/2020 1.04 09/10/2016 1.13 (H) 04/24/2016 0.99 04/02/2015 1.09 09/17/2011 0.9 04/30/2011 1.0 04/09/2010 1.1 (H) 08/13/2009 1.0 08/18/2008 1.1 (H) No result for BNP LFT's (last 3 years, up to 5 values) T Prot Albumin D Bili T Bili Alk Phos ALT AST 04/23/22 1248 6.4 4.6 0.20 1.0 68 35 29 04/27/20 1437 6.4 4.3 0.10 0.9 67 45 40 Arterial Blood Gases None Hand off Completed: Yes 1. The patient was identified. 2. Pertinent medical history was relayed. 3. A brief discussion was had about any pertinent surgical/ procedural issues. 4. Intraoperative/ anesthetic management issue and concerns were discussed. 5. Plans for the early post-operative period relayed. 6. An opportunity for questions and acknowledgment of understanding of the report was received. JOAO Smith documented in this encounter [facility] 08-11-2022 Anesthesiology Postoperative evaluation and management note Anesthesia Postoperative Assessment: Vital Signs (most recent): BP 125/75 Pulse 80 Temp 37.2 C (99 F) (Oral) Resp 20 SpO2 94% Anesthesia Post Evaluation Level of consciousness: awake Post-procedure exam normal. Body temperature, hydration status, PONV and pain evaluated and addressed. Pain management: adequate Hydration status: normal PONV:No nausea/vomiting reported Cardiopulmonary status stable Respiratory status: acceptable Cardiovascular status: acceptable ANESTHESIA NOTABLE EVENTS: No notable events documented. Pt complaining of a headache after today's procedure. Vital signs stable with no neurologic deficits. It improved slightly following fluid administration and Tylenol administration. Pt would like to go home. I instructed her to return to the ED if symptoms worsen or do not improve following eating a meal and taking her regular medications. Lawrence Russell MD [employer] Work Phone: 08-11-2022 Surgical operation note Anesthesia Postoperative Assessment: Vital Signs (most recent): BP 125/75 Pulse 80 Temp 37.2 C (99 F) (Oral) Resp 20 SpO2 94% Anesthesia Post Evaluation Level of consciousness: awake Post-procedure exam normal. Body temperature, hydration status, PONV and pain evaluated and addressed. Pain management: adequate Hydration status: normal PONV:No nausea/vomiting reported Cardiopulmonary status stable Respiratory status: acceptable Cardiovascular status: acceptable ANESTHESIA NOTABLE EVENTS: No notable events documented. Pt complaining of a headache after today's procedure. Vital signs stable with no neurologic deficits. It improved slightly following fluid administration and Tylenol administration. Pt would like to go home. I instructed her to return to the ED if symptoms worsen or do not improve following eating a meal and taking her regular medications. Lawrence Russell MD ASA: 3 No history of anesthetic complications NPO status: Greater than 8 hours Past Medical History and Review of Systems Pulmonary (+) sleep apnea, Dental ROS (+) teeth problems, Endo (+) obesity ( BMI 47) flamer after lasting (+) post-menopausal, Neuro/Psych (+) depression, Cardiovascular (+) hypertension, CAD, Surgical risk: low; Cardiac condition: stable ECG reviewed GI/Hepatic/Renal (+) liver disease, hepatitis, Heme/Other - negative ROS Physical Exam Airway Mallampati: II TM distance: Adequate Micrognathia: Not present Jaw opening: Adequate Neck flexion: Adequate Dental PE (+) chipped teeth Pulmonary Decreased breath sounds Cardiovascular - cardiovascular exam normal Comment: RRR with S1S2; no murmurs, gallops, or rubs Neuro - neurological exam normal Comment: Awake, alert, oriented, No motor deficits and sensation grossly intact Plan Anesthesia plan: MAC (NC) Medications may include (but not limited to): anxiolytics, narcotic analgesics and IV hypnotics Pain management: May include (but not limited to): anxiolytics and narcotic analgesics Anesthesia risks / alternatives discussed pre-op Questions answered / anesthesia plan accepted Past medical history, surgical history, allergies, and medications reviewed. Pertinent laboratory tests, EKG, imaging, and consults reviewed and I have personally seen and evaluated the patient, repeating gerard portions of the history and physical examination. 62 yo F presents for EGD and Colonoscopy. Past Medical History: Diagnosis Date Degeneration of cervical intervertebral disc Degeneration of lumbar or lumbosacral intervertebral disc Hernia of other specified sites of abdominal cavity without mention of obstruction or gangrene R inguinal hernia Past Surgical History: Procedure Laterality Date ARTHRODESIS, POSTERIOR TECHNIQUE, ATLAS-AXIS 1999 ARTHRODESIS, POSTERIOR/POSTEROLATERAL TECHNIQUE, SINGLE INTERSPACE, LUMBAR 1999 ARTHRODESIS, POSTERIOR/POSTEROLATERAL TECHNIQUE, SINGLE INTERSPACE, LUMBAR 2000 UNLISTED PROCEDURE, FOOT/TOES 1999 nerve repair VAGINAL HYSTERECTOMY; W/TOTAL/PARTIAL VAGINECTOMY; W/REPAIR, ENTEROCELE 1987 Social History Socioeconomic History Marital status: Number of children: 2 Highest education level: GED or equivalent Tobacco Use Smoking status: Former Packs/day: 0.50 Years: 15.00 Pack years: 7.50 Types: Cigarettes Quit date: 07/03/2014 Years since quittin.1 Smokeless tobacco: Never Substance and Sexual Activity Alcohol use: Yes Comment: socially Social Determinants of Health Financial Resource Strain: High Risk Difficulty of Paying Living Expenses: Hard Food Insecurity: Food Insecurity Present Worried About Running Out of Food in the Last Year: Sometimes true Ran Out of Food in the Last Year: Sometimes true Transportation Needs: No Transportation Needs Lack of Transportation (Medical): No Lack of Transportation (Non-Medical): No Physical Activity: Inactive Days of Exercise per Week: 0 days Minutes of Exercise per Session: 0 min Stress: Stress Concern Present Feeling of Stress : Very much Social Connections: Moderately Isolated Frequency of Communication with Friends and Family: Twice a week Frequency of Social Gatherings with Friends and Family: Once a week Attends Holiness Services: Never Active Member of Clubs or Organizations: No Attends Club or Organization Meetings: 1 to 4 times per year Marital Status: Intimate Partner Violence: Not At Risk Fear of Current or Ex-Partner: No Emotionally Abused: No Physically Abused: No Sexually Abused: No No current facility-administered medications on file prior to encounter. Current Outpatient Medications on File Prior to Encounter Medication Sig Dispense Refill sucralfate (CARAFATE) 1 GM tablet Take 1 Tablet by mouth 4 times daily. For upper abdominal pain. 120 Tablet 0 albuterol (PROVENTIL HFA) INHALATION HFA inhaler (VENTOLIN,PROAIR,PROVENTIL) 90mcg Inhale 2 Puffs by mouth. metoprolol (TOPROL-XL) 25 mg XL tablet Take 25 mg by mouth. chlorhexidine (PERIDEX) 0.12 % oral solution Take 15 mL by mouth 2 times daily. 1 Bottle 2 Docusate Sodium (DOC-Q-LACE ORAL) Take by mouth as needed. amLODIPine (NORVASC) 2.5 MG tablet Take 2.5 mg by mouth daily. lisinopril (ZESTRIL) 10 MG tablet Take 10 mg by mouth daily. ammonium lactate (LAC-HYDRIN) 12 % lotion Apply topically 2 times daily. Apply thin layer to affected area. 1 Bottle 3 Sofosbuvir (SOVALDI) 400 MG TABS tablet Take 1 Tablet by mouth daily. 30 Tablet 5 ribavirin (REBETOL) 200 MG capsule Take 2 Capsules by mouth 2 times daily. 150 Capsule 5 topiramate (TOPAMAX) 25 MG tablet Take 25 mg by mouth 2 times daily. trazodone 100 MG tablet Take 100 mg by mouth. GARLIC ORAL Take by mouth. Multiple Vitamin (MULTI-VITAMIN ORAL) Take by mouth daily. aspirin 81 MG tablet Take 81 mg by mouth daily. buPROPion (WELLBUTRIN XL) 300 MG XL tablet Take 300 mg by mouth daily. buPROPion ER (WELLBUTRIN XL) 150 MG XL tablet Take 150 mg by mouth daily. FLUoxetine HCl (PROZAC ORAL) Take 60 mg by mouth daily. furosemide (LASIX) 20 MG tablet Take 20 mg by mouth daily. lisinopril (ZESTRIL) 20 MG tablet Take 20 mg by mouth daily. amLODIPine (NORVASC) 2.5 MG tablet Take 2.5 mg by mouth daily. TYLENOL/CODEINE #3 300-30 MG OR TABS 1 OR 2 TABLETS EVERY 4 TO 6 HOURS NEEDED FOR PAIN 28 0 TRIAMCINOLONE ACETONIDE 0.1 % EX OINT apply bid to area affected 240gm 3 HYDROXYZINE HCL 25 MG OR TABS 1 to 2 tablets qhs 60 2 AMILORIDE-HYDROCHLOROTHIAZIDE 5-50 MG OR TABS 1 TABLET DAILY 30 3 MOTRIN 800 MG OR TABS 1 TABLET 3 TIMES DAILY 90 2 MOTRIN 800 MG OR TABS 1 TABLET every four hours XANAX OR None Entered HYDROCHLOROTHIAZIDE 25 MG OR TABS 1 TABLET DAILY ZOLOFT TABS 100 MG OR 1 TAB PO QD Allergies Allergen Reactions Fentanyl Itching Pt does not recall any reaction Codeine Latex Hives Penicillin [Penicillin G Potassium] Penicillins Hives Lawrence Russell MD documented in this encounter [facility] 08-11-2022 Procedure anesthe kerwin Narrative Procedure Name Responsible Anesthesiologist Anesthesia Start Time Anesthesia Stop Time ESOPHAGOGASTRODUODENOSCOPY A ND COLONOSCOPY, GENERAL ANESTHESIA Lawrence Russell MD 08/11/22 0946 08/11/22 1033 Events Date Time Event Comment 08/11/2022 0851 0941 AN Equip Check 0946 An Start Data 0946 An Start 0950 Preinduction Verify The anes thesia team has reviewed the patient's vital signs immediately prior to induction. JOAO Smith 0951 An Induction 0955 Anesthesia Release 1030 an stop data 1032 Handoff I completed my SBAR handoff to the receiving nurse in the receiving unit. 1033 AN Stop Meds Name Total Propofol 10 mg/mL 90 mg propofol (DIPRIVAN) infusion 10 mg/mL 73 4.16 mg NaCl 0.9% 300 mL * Agents Name O2 eN2O * Blood No blood administrations on file. Lines, Drains, and Airways Type Details Placement Removal Airway Adjunct 08/11/22; 0950; Non-Rebreather 08/11/22 0950 by Kari Bonner APRN-CRNA Peripheral IV Line 08/11/22; 0914; 22 gauge; Left; Forearm; 08/11/22; 1300 08/11/22 0914 by Taniya Arias RN 08/11/22 1300 by Dayna Houston RN documented in this encounter [id number] Hospital Discharge instructions* Discharge Instructions* Dayna Houston RN - 08/11/2022 11:28 AM EST HOMEGOING INSTRUCTIONS EGD AND COLONOSCOPY with POLYPECTOMY or BIOPSY IMPRESSION: 1. Mild non-erosive antral gastritis. 2. Endoscopic evidence of probable sleeve gastrectomy. 3. Small (2 cm) hiatal hernia. 4. Large sigmoid colon polyp removed. 5. Moderate-sized internal hemorrhoids. RECOMMENDATIONS: 1. Repeat colonoscopy for surveillence in 3 years. 2. Await biopsies for H. pylori, treat with quadruple therapy for 14 days if positive. Recommend subsequent confirmation of eradication with breath test at least 4 weeks after treatment completion. Patient should be off PPI for 2 weeks prior to breath test or stool Antigen testing. 3. F/U eosphageal biopsies. 4. F/U in GI clinic with Eusebia Jones [phone] Hygienic and special care needs: Your throat may be sore or irritated. This soreness should subside within a couple of days. Warm fluids or throat lozenges may be soothing to the throat. Activity: Rest at home today. You may progress to your regular activities as tolerated tomorrow. Diet: Clear liquids are best tolerated at first. If you are not nauseated you can progress your diet to solid foods as tolerated. Precautions: You had a biopsy taken or a polyp removed during the procedure. DO NOT TAKE aspirin or aspirin products, (NSAIDS) non-steroidal anti inflammatory medications such as Ibuprofen, Motrin, Nuprin, Advil,Aleve, Naprosyn, Celebrex for 7 days after the test. If you take Coumadin or other blood thinner medications, your doctor will discuss with you when to resume your medication. You may experience some minor rectal bleeding. This will subside in a couple of days. You may have some abdominal cramping. Try to pass the air. Your IV site might be sore due to the medication given in the vein. A warm, moist wash cloth may be applied to the site. Notify Your Physician For: 1. Dizziness/Fainting. 2. Severe abdominal pain. 3. Difficulty swallowing. 4. Shortness of breath. 5. Persistent throat pain. 6. Vomiting blood or passing black stools. 7. Signs of an infection such as: fever, chills or if your IV site becomes red or swollen. 8. Large amount of rectal bleeding (as explained by your nurse) Post Anesthesia Safety: Possible side effects include drowsiness, dizziness, or inability to think clearly. For your safety, do not drive, drink alcoholic beverages, take any unprescribed medication or make any important decisions for 24 hours. You may feel dizzy or weak; avoid areas where there is a danger of falling or injury. It is highly recommended that a responsible adult be with you for 24 hours. Medications EGD: No changes Special Instructions: As above Medications : COLONOSCOPY: No changes Special Instructions: You had a polyp removed or tissue samples taken today. These go to the lab to be looked at under the microscope. The doctor will send you a letter in the mail within 2 weeks with the results. If there are any concerning results the doctor will contact you by phone. These results will also be sent to your ordering doctor and will be available in your chart at your next clinic visit for the doctor to review. After 2 weeks if you have not heard from your doctor, please call [phone] and leave a message with the veterans' counselor. Literature: Colonic polyps/polypectomy Follow Up: Follow up with Primary Care Provider. If you have any questions or concerns call the nurse line at Leave a message including your name, medical record number or social security number, and a phone number where you can be reached. A nurse will return your call within 24 hours. For problems or concerns, call the [facility] at , Thursday through Thursday 7:30 am -5:00 pm. 24 HOUR ADVICE LINE [phone] I acknowledge that I have read the above home-going instructions, have had the opportunity to ask questions and receive an explanation. I acknowledge that this is my signature and I have been given acopy of the instructions. Patient: Date Reviewing Nurse Date Dr Brody Physicians Name Patient/Caregiver * Attachments The following attachments cannot be sent through Care Everywhere. * Colon Polypectomy ([place]) documented in this [id number] Note* Anesthesia Transfer Of Care - Kari Bonner APRN-ACQUISITIONS LIBRARIAN - 08/11/2022 10:32 AM EST Images from the original note were not included. Patient taken to PACU. Patient was drowsy, comfortable and stable on arrival. Anesthesia Transfer of Care Note Past Medical History: Past Medical History: Diagnosis Date Degeneration of cervical intervertebral disc Degeneration of lumbar or lumbosacral intervertebral disc Hernia of other specified sites of abdominal cavity without mention of obstruction or gangrene R inguinal hernia Sleep Apnea/Positive STOP-BANG: Yes Problem List: Patient Active Problem List: Other chronic nonalcoholic liver disease [K76.89] Nonspecific elevation of levels of transaminase or lactic acid dehydrogenase (LDH) [R74.01, R74.02] Obesity, unspecified [E66.9] Unspecified essential hypertension [I10] Tobacco use disorder [F17.200] Depressive disorder, not elsewhere classified [F32.89] Hernia of other specified sites of abdominal cavity without mention of obstruction or gangrene [K45.8] Degeneration of cervical intervertebral disc [M50.30] Degeneration of lumbar or lumbosacral intervertebral disc [M51.37] Endometriosis of uterus [N80.00] Hepatitis C virus infection cured after antiviral drug therapy [Z86.19] Other malaise and fatigue [R53.81, R53.83] Encounter for long-term (current) use of other medications [Z79.899] Nausea with vomiting [R11.2] Oral aphthae [K12.0] Unspecified disorder of skin and subcutaneous tissue [L98.9] Insomnia, unspecified [G47.00] Drug-induced mood disorder (HCC) [F19.94] 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19] Suture sinus [T81.89XA] Viral hepatitis C [B19.20] Ventral hernia [K43.9] Morbid obesity with BMI of 50.0-59.9, adult (HCC) [E66.01, Z68.43] Obesity [E66.9] Cirrhosis of liver (HCC) [K74.60] Hypertension [I10] Rectal bleeding [K62.5] Change in bowel habits [R19.4] RUQ pain [R10.11] Esophageal dysphagia [R13.19] Past Surgical History: Review of patient's past surgical history indicates: VAGINAL HYSTERECTOMY; W/TOTAL/PARTIAL VAGINECT* (1987) ARTHRODESIS, POSTERIOR TECHNIQUE, ATLAS-AXIS (1999) ARTHRODESIS, POSTERIOR/POSTEROLATERAL TECHNIQU* (1999) UNLISTED PROCEDURE, FOOT/TOES (1999) nerve repair ARTHRODESIS, POSTERIOR/POSTEROLATERAL TECHNIQU* (2000) (2000) Allergies: Fentanyl, Codeine, Latex, Penicillin [penicillin g potassium], and Penicillins Basic Operating Room Facts: Surgeon(s): Jennifer Khoury MD Anesthesiologist: Lawrence Russell MD ACQUISITIONS LIBRARIAN: Kari Bonner APRN-CRNA ESOPHAGOGASTRODUODENOSCOPY AND COLONOSCOPY, GENERAL ANESTHESIA Intraoperative Events: No acute event ASA: 3 EBL: Not documented Urine Not documented Lactated Ringers and NaCl 0.9%: Fluid Totals (Filter: LR and NaCl 0.9% Medications Shown) Medication Calculated Total NaCl 0.9% 300 mL / 1 bag Cell Saver: Not documented Blood Volume Values: Blood Products None MTP Blood: MTP PRBC: Not documented MTP FFP: Not documented MTP PLT: Not documented MTP Cryo: Not documented MTP Whole Blood: Not documented Current Vasoactive Medications: {Vasoactive Medications: None Lines, Drains, Airways Peripheral IV Access: 08/11/22913 22 gauge Left Forearm (Active) Site Assessment WNL;Dressing intact 08/11/22913 Infusion Status Port #1 Infusing 08/11/22913 Airway Adjunct: Non-Rebreather (Active) Airway Insertion Details * No LDAs found * All non-working IVs have been removed: N/A Laboratory Data: CBC (last 3 years, up to 5 values) WBC RBC Hgb Hct MCV RDW Plt 04/23/22 1248 5.8 4.94 15.2 43.7 89 13.4 137 04/27/20 1437 4.4 4.66 14.2 41.3 89 14.8 106 Basic Metabolic Panel Na K Cl CO2 Gap Glu BUN Cr Ca 04/23/22 1248 139 3.3 100 28 14 111 14 1.33 9.6 04/27/20 1437 141 3.3 105 27 12 97 19 1.05 9.1 Basic Metabolic Panel None INR (no units) Date Value 04/23/2022 1.07 04/27/2020 1.04 09/10/2016 1.13 (H) 04/24/2016 0.99 04/02/2015 1.09 09/17/2011 0.9 04/30/2011 1.0 04/09/2010 1.1 (H) 08/13/2009 1.0 08/18/2008 1.1 (H) No result for BNP LFT's (last 3 years, up to 5 values) T Prot Albumin D Bili T Bili Alk Phos ALT AST 04/23/22 1248 6.4 4.6 0.20 1.0 68 35 29 04/27/20 1437 6.4 4.3 0.10 0.9 67 45 40 Arterial Blood Gases None Hand off Completed: Yes 1. The patient was identified. 2. Pertinent medical history was relayed. 3. A brief discussion was had about any pertinent surgical/ procedural issues. 4. Intraoperative/ anesthetic management issue and concerns were discussed. 5. Plans for the early post-operative period relayed. 6. An opportunity for questions and acknowledgment of understanding of the report was received. JOAO Smith [employer] Work Phone: 1(569) 610-250411-21-2022 Miscellaneous Notes* OP Note - Jennifer Khoury MD - 08/11/2022 9:30 AM EST Micheline FOX 62 year old Surgical Contact Serial Number: [id number] Location: ENDO 02 Date: 08/11/2022 RESEARCH ENGINEER: Pj Casanova MD ATTENDING:Jennifer Khoury MD Procedure(s): ESOPHAGOGASTRODUODENOSCOPY AND COLONOSCOPY, GENERAL ANESTHESIA WITH BIOPSIES AND SNARE POLYPECTOMY INSTRUMENT: Scope #0150 COLONOSCOPE #0111 SEDATION: Anesthesia Assisted Pre-Op Diagnosis Codes: * Rectal bleeding [K62.5] * Change in bowel habits [R19.4] * RUQ pain [R10.11] * Esophageal dysphagia [R13.19] INDICATIONS: This is a 62 year old female With PMH of morbid obesity (s/p gastric bypass in the 80s), KELLY, compensated HCV cirrhosis (s/p tx), endometriosis (s/p hysterectomy) and cholecystectomy whopresents for diagnostic EGD for dyspepsia and dysphagia and diagnostic colonoscopy for change in bowel habits with constipation. Last EGD in 2014 without varices and last colonoscopy in 2014 with onediminutive colon polyp. While monitoring the patient with EKG, pulse oximetry and BP, endoscope passed to second portion ofduodenum by direct visualization. DUODENUM: Bulb and descending portion appeared normal. STOMACH: Pyloric channel, body, fundus and cardia, including retroflexed views appear normal. Evidence of prior sleeve gastrectomy. Scattered areas of patchy erythematous mucosa in the antrum. Mosaicmucosal pattern noted. Random biopsies taken to r/o H. Pylori (Bottle A). No varices noted. ESOPHAGUS: Diaphragmatic hiatus was 38 cm from incisors and GE junction (upper margin of gastric folds) was at 36 cm from incisors. Squamocolumnar junction was at 36 cm from incisors. Mucosa appearednormal. Random biopsies taken from distal and mid-esophagus to r/o EoE (Bottle B). No varices noted. Patient was turned for colonoscopy. Patient examined. Anus and digital rectal exam were Normal. While monitoring the patient with EKG, pulse oximetry and BP, colonoscope passed into cecum, which was identified by ileo-cecal valve, appendical orifice and transillumination of right lower quadrant. Prep was [place] Bowel Prep Right Colon: Minor amount of residual staining, small fragments of stool and/or opaque liquid, [place] Bowel Prep Transverse Colon: Minor amount of residual staining, smallfragments of stool and/or opaque liquid, [place] Bowel Prep Left Colon:Minor amount of residual staining, small fragments of stool and/or opaque liquid or Good (Large volume of clear liquid covering 5% to 25% of the surface but greater than 90% of surface seen). FINDINGS: Moderate amount of yellow semi-solid to liquid stool requiring extensive washing and suctioning. TI: intubated with normal appearing mucosa. Cecum: Normal. Ascending Colon: Normal. Hepatic Flexure: Normal. Transverse Colon: Normal. Splenic Flexure: Normal. Descending Colon: Normal. Sigmoid Colon: A ~ 11-12 mm semi-pedunculated polyp removed en bloc with hot snare and retrieved with suction (Bottle C). Rectum: Normal. Retroflexed Views: Rectum showed internal hemorrhoids. RUQ pain (Primary Diagnosis) [860447] Change in bowel habits [651386] Rectal bleeding [363015] Cirrhosis of liver without ascites, unspecified hepatic cirrhosis type (HCC) [3584771] History of colonic polyps [850052] Esophageal dysphagia [352767] Grade I hemorrhoids [592426] Adenomatous polyp of sigmoid colon [6717838] YULIYA PATH SPECIMEN SENT: yes SPECIMEN: Esophagus, Stomach, and Colon PHOTOGRAPH TAKEN:yes COMPLICATIONS DURING PROCEDURE: none EBL (estimated blood loss): minimal IMPRESSION: 1. Mild non-erosive antral gastritis. 2. Endoscopic evidence of probable sleeve gastrectomy. 3. Small (2 cm) hiatal hernia. 4. Large sigmoid colon polyp removed. 5. Moderate-sized internal hemorrhoids. RECOMMENDATIONS: 1. Repeat colonoscopy for surveillence in 3 years. 2. Await biopsies for H. pylori, treat with quadruple therapy for 14 days if positive. Recommend subsequent confirmation of eradication with breath test at least 4 weeks after treatment completion. Patient should be off PPI for 2 weeks prior to breath test or stool Antigen testing. 3. F/U eosphageal biopsies. 4. F/U in GI clinic with Eusebia Jones. CC: Primary Care/Referring Physician(s): Leticia PERES COMPLETING NOTE: Pj Casanova MD Patient meets criteria for discharge/transfer: Pj Casanova MD ATTENDING NOTE: I was present during and participated in this procedure, and have reviewed and agree with the findings. Jennifer Khoury MD Department of Gastroenterology & Hepatology * Anesthesia Attestation - Lawrence Russell MD - 08/11/2022 8:51 AM EST Anesthesia Attestation ATTESTATION OF INFORMED CONSENT FOR ANESTHESIA Anesthesia options were discussed with the patient and/or legal credit representative. The risks, benefits and alternatives were reviewed. Questions regarding anesthesia were answered. Patient and/or legal credit representative knows such anesthetics and procedures may be performed by Resident physicians, Certified Anesthesiologist Assistants, or Certified Nurse Anesthetists under the supervision of a physician. The patient /or the patient s legal representativeagree with the plan for anesthesia. Lawrence Russell MD documented in this [id number] Note* OP Note - Jennifer Khoury MD - 08/11/2022 9:30 AM EST Micheline FOX 62 year old Surgical Contact Serial Number: [id number] Location: ENDO 02 Date: 08/11/2022 RESEARCH ENGINEER: Pj Casanova MD ATTENDING:Jennifer Khoury MD Procedure(s): ESOPHAGOGASTRODUODENOSCOPY AND COLONOSCOPY, GENERAL ANESTHESIA WITH BIOPSIES AND SNARE POLYPECTOMY INSTRUMENT: Scope #[id number] COLONOSCOPE #0111 SEDATION: Anesthesia Assisted Pre-Op Diagnosis Codes: * Rectal bleeding [K62.5] * Change in bowel habits [R19.4] * RUQ pain [R10.11] * Esophageal dysphagia [R13.19] INDICATIONS: This is a 62 year old female With PMH of morbid obesity (s/p gastric bypass in the 80s), KELLY, compensated HCV cirrhosis (s/p tx), endometriosis (s/p hysterectomy) and cholecystectomy whopresents for diagnostic EGD for dyspepsia and dysphagia and diagnostic colonoscopy for change in bowel habits with constipation. Last EGD in 2014 without varices and last colonoscopy in 2014 with onediminutive colon polyp. While monitoring the patient with EKG, pulse oximetry and BP, endoscope passed to second portion ofduodenum by direct visualization. DUODENUM: Bulb and descending portion appeared normal. STOMACH: Pyloric channel, body, fundus and cardia, including retroflexed views appear normal. Evidence of prior sleeve gastrectomy. Scattered areas of patchy erythematous mucosa in the antrum. Mosaicmucosal pattern noted. Random biopsies taken to r/o H. Pylori (Bottle A). No varices noted. ESOPHAGUS: Diaphragmatic hiatus was 38 cm from incisors and GE junction (upper margin of gastric folds) was at 36 cm from incisors. Squamocolumnar junction was at 36 cm from incisors. Mucosa appearednormal. Random biopsies taken from distal and mid-esophagus to r/o EoE (Bottle B). No varices noted. Patient was turned for colonoscopy. Patient examined. Anus and digital rectal exam were Normal. While monitoring the patient with EKG, pulse oximetry and BP, colonoscope passed into cecum, which was identified by ileo-cecal valve, appendical orifice and transillumination of right lower quadrant. Prep was [place] Bowel Prep Right Colon: Minor amount of residual staining, small fragments of stool and/or opaque liquid, [place] Bowel Prep Transverse Colon: Minor amount of residual staining, smallfragments of stool and/or opaque liquid, [place] Bowel Prep Left Colon:Minor amount of residual staining, small fragments of stool and/or opaque liquid or Good (Large volume of clear liquid covering 5% to 25% of the surface but greater than 90% of surface seen). FINDINGS: Moderate amount of yellow semi-solid to liquid stool requiring extensive washing and suctioning. TI: intubated with normal appearing mucosa. Cecum: Normal. Ascending Colon: Normal. Hepatic Flexure: Normal. Transverse Colon: Normal. Splenic Flexure: Normal. Descending Colon: Normal. Sigmoid Colon: A ~ 11-12 mm semi-pedunculated polyp removed en bloc with hot snare and retrieved with suction (Bottle C). Rectum: Normal. Retroflexed Views: Rectum showed internal hemorrhoids. RUQ pain (Primary Diagnosis) [045894] Change in bowel habits [553206] Rectal bleeding [412524] Cirrhosis of liver without ascites, unspecified hepatic cirrhosis type (HCC) [5746526] History of colonic polyps [060032] Esophageal dysphagia [524787] Grade I hemorrhoids [903402] Adenomatous polyp of sigmoid colon [7808942] YULIYA PATH SPECIMEN SENT: yes SPECIMEN: Esophagus, Stomach, and Colon PHOTOGRAPH TAKEN:yes COMPLICATIONS DURING PROCEDURE: none EBL (estimated blood loss): minimal IMPRESSION: 1. Mild non-erosive antral gastritis. 2. Endoscopic evidence of probable sleeve gastrectomy. 3. Small (2 cm) hiatal hernia. 4. Large sigmoid colon polyp removed. 5. Moderate-sized internal hemorrhoids. RECOMMENDATIONS: 1. Repeat colonoscopy for surveillence in 3 years. 2. Await biopsies for H. pylori, treat with quadruple therapy for 14 days if positive. Recommend subsequent confirmation of eradication with breath test at least 4 weeks after treatment completion. Patient should be off PPI for 2 weeks prior to breath test or stool Antigen testing. 3. F/U eosphageal biopsies. 4. F/U in GI clinic with Eusebia oJnes. CC: Primary Care/Referring Physician(s): Leticia PERES COMPLETING NOTE: Pj Casanova MD Patient meets criteria for discharge/transfer: Pj Casanova MD ATTENDING NOTE: I was present during and participated in this procedure, and have reviewed and agree with the findings. Jennifer Khoury MD Department of Gastroenterology & Hepatology [employer] Work Phone: [phone]) 334-566511-21-2022 Anesthesiology Preoperative evaluation and management note* Anesthesia Preprocedure Evaluation - Lawrence Russell MD - 08/11/2022 8:52 AM EST ASA: 3 No history of anesthetic complications NPO status: Greater than 8 hours Past Medical History and Review of Systems Pulmonary (+) sleep apnea, Dental ROS (+) teeth problems, Endo (+) obesity ( BMI 47) flamer after lasting (+) post-menopausal, Neuro/Psych (+) depression, Cardiovascular (+) hypertension, CAD, Surgical risk: low; Cardiac condition: stable ECG reviewed GI/Hepatic/Renal (+) liver disease, hepatitis, Heme/Other - negative ROS Physical Exam Airway Mallampati: II TM distance: Adequate Micrognathia: Not present Jaw opening: Adequate Neck flexion: Adequate Dental PE (+) chipped teeth Pulmonary Decreased breath sounds Cardiovascular - cardiovascular exam normal Comment: RRR with S1S2; no murmurs, gallops, or rubs Neuro - neurological exam normal Comment: Awake, alert, oriented, No motor deficits and sensation grossly intact Plan Anesthesia plan: MAC (NC) Medications may include (but not limited to): anxiolytics, narcotic analgesics and IV hypnotics Pain management: May include (but not limited to): anxiolytics and narcotic analgesics Anesthesia risks / alternatives discussed pre-op Questions answered / anesthesia plan accepted Past medical history, surgical history, allergies, and medications reviewed. Pertinent laboratory tests, EKG, imaging, and consults reviewed and I have personally seen and evaluated the patient, repeating gerard portions of the history and physical examination. 62 yo F presents for EGD and Colonoscopy. Past Medical History: Diagnosis Date Degeneration of cervical intervertebral disc Degeneration of lumbar or lumbosacral intervertebral disc Hernia of other specified sites of abdominal cavity without mention of obstruction or gangrene R inguinal hernia Past Surgical History: Procedure Laterality Date ARTHRODESIS, POSTERIOR TECHNIQUE, ATLAS-AXIS 1999 ARTHRODESIS, POSTERIOR/POSTEROLATERAL TECHNIQUE, SINGLE INTERSPACE, LUMBAR 1999 ARTHRODESIS, POSTERIOR/POSTEROLATERAL TECHNIQUE, SINGLE INTERSPACE, LUMBAR 2000 UNLISTED PROCEDURE, FOOT/TOES 1999 nerve repair VAGINAL HYSTERECTOMY; W/TOTAL/PARTIAL VAGINECTOMY; W/REPAIR, ENTEROCELE 1987 Social History Socioeconomic History Marital status: Number of children: 2 Highest education level: GED or equivalent Tobacco Use Smoking status: Former Packs/day: 0.50 Years: 15.00 Pack years: 7.50 Types: Cigarettes Quit date: 07/03/2014 Years since quittin.1 Smokeless tobacco: Never Substance and Sexual Activity Alcohol use: Yes Comment: socially Social Determinants of Health Financial Resource Strain: High Risk Difficulty of Paying Living Expenses: Hard Food Insecurity: Food Insecurity Present Worried About Running Out of Food in the Last Year: Sometimes true Ran Out of Food in the Last Year: Sometimes true Transportation Needs: No Transportation Needs Lack of Transportation (Medical): No Lack of Transportation (Non-Medical): No Physical Activity: Inactive Days of Exercise per Week: 0 days Minutes of Exercise per Session: 0 min Stress: Stress Concern Present Feeling of Stress : Very much Social Connections: Moderately Isolated Frequency of Communication with Friends and Family: Twice a week Frequency of Social Gatherings with Friends and Family: Once a week Attends Holiness Services: Never Active Member of Clubs or Organizations: No Attends Club or Organization Meetings: 1 to 4 times per year Marital Status: Intimate Partner Violence: Not At Risk Fear of Current or Ex-Partner: No Emotionally Abused: No Physically Abused: No Sexually Abused: No No current facility-administered medications on file prior to encounter. Current Outpatient Medications on File Prior to Encounter Medication Sig Dispense Refill sucralfate (CARAFATE) 1 GM tablet Take 1 Tablet by mouth 4 times daily. For upper abdominal pain. 120 Tablet 0 albuterol (PROVENTIL HFA) INHALATION HFA inhaler (VENTOLIN,PROAIR,PROVENTIL) 90mcg Inhale 2 Puffs by mouth. metoprolol (TOPROL-XL) 25 mg XL tablet Take 25 mg by mouth. chlorhexidine (PERIDEX) 0.12 % oral solution Take 15 mL by mouth 2 times daily. 1 Bottle 2 Docusate Sodium (DOC-Q-LACE ORAL) Take by mouth as needed. amLODIPine (NORVASC) 2.5 MG tablet Take 2.5 mg by mouth daily. lisinopril (ZESTRIL) 10 MG tablet Take 10 mg by mouth daily. ammonium lactate (LAC-HYDRIN) 12 % lotion Apply topically 2 times daily. Apply thin layer to affected area. 1 Bottle 3 Sofosbuvir (SOVALDI) 400 MG TABS tablet Take 1 Tablet by mouth daily. 30 Tablet 5 ribavirin (REBETOL) 200 MG capsule Take 2 Capsules by mouth 2 times daily. 150 Capsule 5 topiramate (TOPAMAX) 25 MG tablet Take 25 mg by mouth 2 times daily. trazodone 100 MG tablet Take 100 mg by mouth. GARLIC ORAL Take by mouth. Multiple Vitamin (MULTI-VITAMIN ORAL) Take by mouth daily. aspirin 81 MG tablet Take 81 mg by mouth daily. buPROPion (WELLBUTRIN XL) 300 MG XL tablet Take 300 mg by mouth daily. buPROPion ER (WELLBUTRIN XL) 150 MG XL tablet Take 150 mg by mouth daily. FLUoxetine HCl (PROZAC ORAL) Take 60 mg by mouth daily. furosemide (LASIX) 20 MG tablet Take 20 mg by mouth daily. lisinopril (ZESTRIL) 20 MG tablet Take 20 mg by mouth daily. amLODIPine (NORVASC) 2.5 MG tablet Take 2.5 mg by mouth daily. TYLENOL/CODEINE #3 300-30 MG OR TABS 1 OR 2 TABLETS EVERY 4 TO 6 HOURS NEEDED FOR PAIN 28 0 TRIAMCINOLONE ACETONIDE 0.1 % EX OINT apply bid to area affected 240gm 3 HYDROXYZINE HCL 25 MG OR TABS 1 to 2 tablets qhs 60 2 AMILORIDE-HYDROCHLOROTHIAZIDE 5-50 MG OR TABS 1 TABLET DAILY 30 3 MOTRIN 800 MG OR TABS 1 TABLET 3 TIMES DAILY 90 2 MOTRIN 800 MG OR TABS 1 TABLET every four hours XANAX OR None Entered HYDROCHLOROTHIAZIDE 25 MG OR TABS 1 TABLET DAILY ZOLOFT TABS 100 MG OR 1 TAB PO QD Allergies Allergen Reactions Fentanyl Itching Pt does not recall any reaction Codeine Latex Hives Penicillin [Penicillin G Potassium] Penicillins Hives Lawrence Russell MD [facility] [id number] Note* Anesthesia Attestation - Lawrence Russell MD - 08/11/2022 8:51 AM EST Anesthesia Attestation ATTESTATION OF INFORMED CONSENT FOR ANESTHESIA Anesthesia options were discussed with the patient and/or legal credit representative. The risks, benefits and alternatives were reviewed. Questions regarding anesthesia were answered. Patient and/or legal credit representative knows such anesthetics and procedures may be performed by Resident physicians, Certified Anesthesiologist Assistants, or Certified Nurse Anesthetists under the supervision of a physician. The patient /or the patient s legal representativeagree with the plan for anesthesia. Lawrence Russell MD [employer] Work Phone: [phone]) 686-310411-18-2022 History of Present illness Narrative* Lisa Santana RN - 08/08/2022 4:21 PM EST .Patient was identified by name and date of . Lisa Santana RN documented in this [id number] Instructions* Patient Instructions* Giacomo Mc MD - 07/28/2022 1:53 PM EST MEDICATIONS: Follow your medication instructions given by your Physician/s or Nurse Practitioner. On the morning of your surgery please take only the following medications, with a small sip of water: metoprolol (TOPROL-XL) 25 mg XL tablet Docusate Sodium (DOC-Q-LACE ORAL) amLODIPine (NORVASC) 2.5 MG tablet trazodone 100 MG tablet HYDROXYZINE HCL 25 MG OR TABS XANAX OR Please do not eat or drink anything after midnight of the night prior to your procedure. You can have small sips of water the morning of to help take any AM medications. Do not take your Amiloride-hydrochlorothizaide, Lasix, the morning of your procedure. Please avoid taking medications, supplements or multivitamins not listed above the day of your surgery. Please avoid taking NSAIDs (Ibuprofen, Motrin, Aleve, etc.) for at least the 3 days prior to your procedure; these medications can increase your risk of bleeding during the procedure. You may take Tylenol if you have pain. Please avoid taking aspirin for 7 days prior to your procedure. This medication increases your riskof bleeding during the procedure. THINGS TO REMEMBER: 1. DO NOT eat (including gum and mints), drink (including water), or smoke after midnight the nightbefore your surgery. Food in your stomach can be very dangerous; vomiting during surgery may resultin the accidental exposure of food or fluid into the lungs and/ or pneumonia. Not following these instructions will result in CANCELLATION/ delay of your surgery. 2. DO NOT wear any jewelry, (including rings, earrings, or mouth, tongue, or body piercings). Metaljewelry could cause constriction, amputation, or herrera. Loose or bulky things in your mouth can be unsafe and result in breathing problems. 3. DO NOT bring valuables, credit cards, or large amounts of mc. Do bring a small amount of mc for filling prescriptions and any medical co-pays. ON THE DAY OF SURGERY: 1. ARRANGE FOR A RIDE: If you are scheduled to go home the same day of surgery, a responsible adultMUST drive or accompany you home in a car, cab, or metro-van. You will not be allowed to drive yourself home or travel home alone. Your surgery may be cancelled if you do not have a ride. An adult should stay with you for 24 hours after surgery. 2. PEDIATRIC or ADOLESCENTS: Parents or a legal guardian must remain at the hospital during surgery. You will need to make childcare arrangements for your other small children to remain at home or bring an adult with you who can supervise them in the waiting area while you are with your child. 3. SLEEP APNEA PATIENTS: Bring your sleep apnea machine and mask. 4. PLEASE BE ON TIME. A late arrival may result in the cancellation/ delay of your surgery. Contact the Pre-Surgical Evaluation department at [phone] or your surgeon's office with any questions. documented in this [id number] Note* PSE Appt H&P - Giacomo Mc MD - 07/28/2022 1:40 PM EST Images from the original note were not included. Presurgical Evaluation Micheline FOX, [id number] 62 year old Female 07/28/2022 Height: 5' 5 Weight: 128.8 kg BMI: (47.26) VITAL SIGNS: Vitals: 07/28/22 1344 BP: 146/84 Pulse: 75 Resp: 15 Temp: 98.7 F (37.1 C) SpO2: 95% ALLERGIES: Allergies Allergen Reactions Fentanyl Itching Pt does not recall any reaction Codeine Latex Hives Penicillin [Penicillin G Potassium] Penicillins Hives HISTORY OF PRESENT ILLNESS: 62 year old female with PMHx HTN, KELLY cannot tolerate CPAP, ASHD, morbid obesity, gastritis, NAFLD, cirrhosis, GIST, MDD presents for pre-surgical evaluation for ESOPHAGOGASTRODUODENOSCOPY AND COLONOSCOPY, GENERAL ANESTHESIA. Patient denies any fever, chills, SOB, or chest pain. Patient is scheduled for the procedure on 08/11/2022. RECENT ILLNESS: Serious illness or hospitalization within the last six months. No STOP-BANG Row Name 07/28/22 1346 History of sleep apnea? Yes Diagnosed with KELLY, done in [facility] [place]. Moderate KELLY. Patient was prescribed CPAP but was unable to tolerate. EXERCISE CAPACITY: <4 mets SOCIAL HISTORY: Social History Tobacco Use Smoking status: Former Packs/day: 0.50 Years: 15.00 Pack years: 7.50 Types: Cigarettes Quit date: 07/03/2014 Years since quittin.0 Smokeless tobacco: Never Substance Use Topics Alcohol use: Yes Comment: socially has no history on file for drug use. MEDICAL HISTORY: Past Medical History: Diagnosis Date Degeneration of cervical intervertebral disc Degeneration of lumbar or lumbosacral intervertebral disc Hernia of other specified sites of abdominal cavity without mention of obstruction or gangrene R inguinal hernia SURGICAL HISTORY: Past Surgical History: Procedure Laterality Date ARTHRODESIS, POSTERIOR TECHNIQUE, ATLAS-AXIS 1999 ARTHRODESIS, POSTERIOR/POSTEROLATERAL TECHNIQUE, SINGLE INTERSPACE, LUMBAR 1999 ARTHRODESIS, POSTERIOR/POSTEROLATERAL TECHNIQUE, SINGLE INTERSPACE, LUMBAR 2000 UNLISTED PROCEDURE, FOOT/TOES 1999 nerve repair VAGINAL HYSTERECTOMY; W/TOTAL/PARTIAL VAGINECTOMY; W/REPAIR, ENTEROCELE 1987 PROBLEM LIST: Patient Active Problem List: Other chronic nonalcoholic liver disease [K76.89] Nonspecific elevation of levels of transaminase or lactic acid dehydrogenase (LDH) [R74.01, R74.02] Obesity, unspecified [E66.9] Unspecified essential hypertension [I10] Tobacco use disorder [F17.200] Depressive disorder, not elsewhere classified [F32.89] Hernia of other specified sites of abdominal cavity without mention of obstruction or gangrene [K45.8] Degeneration of cervical intervertebral disc [M50.30] Degeneration of lumbar or lumbosacral intervertebral disc [M51.37] Endometriosis of uterus [N80.00] Hepatitis C virus infection cured after antiviral drug therapy [Z86.19] Other malaise and fatigue [R53.81, R53.83] Encounter for long-term (current) use of other medications [Z79.899] Nausea with vomiting [R11.2] Oral aphthae [K12.0] Unspecified disorder of skin and subcutaneous tissue [L98.9] Insomnia, unspecified [G47.00] Drug-induced mood disorder (HCC) [F19.94] 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19] Suture sinus [T81.89XA] Viral hepatitis C [B19.20] Ventral hernia [K43.9] Morbid obesity with BMI of 50.0-59.9, adult (HCC) [E66.01, Z68.43] Obesity [E66.9] Cirrhosis of liver (HCC) [K74.60] Hypertension [I10] Rectal bleeding [K62.5] Change in bowel habits [R19.4] RUQ pain [R10.11] Esophageal dysphagia [R13.19] FAMILY HISTORY: Family History Problem Relation Age of Onset Heart Disease Father ANESTHESIA REVIEW OF SYSTEMS: Eyes/ENT: Negative Teeth: Upper Denture Pulmonary: KELLY Cardio-vascular: HTN G.I./ Hepatic: Liver Disease, cirrhosis Renal/: Negative Neurological: Negative Gynecological: Negative Psychiatric: Depression Musculoskeletal: Fibromyalgia Endocrine: Obesity Hematologic: Negative Constitutional: Negative Skin: Negative PREVIOUS ANESTHETIC COMPLICATIONS: Anesthesia Complications No anesthesia history noted FAMILY HISTORY OF ANESTHETIC COMPLICATIONS: No PHYSICAL EXAM: Eyes: Normal ENT: Nares normal and Mucosa normal Pulmonary: Chest clear to auscultation bilaterally Cardiovascular: RRR with S1S2 Abdomen: Soft and non-tender Extremities: No gross or obvious abnormalities Neurologic: Awake, alert, oriented Psychiatric: alert and oriented to person, place and time Skin: No gross or obvious abnormalities on visible skin AIRWAY EXAM: Mallampati score: 1 TMD: Not Adequate Neck Extension/ Flexion: Adequate Mouth Opening: Adequate Dentition: Upper dentures Micrognathia/Overbite: No PAIN ASSESSMENT: Severity: 0 Location: N/A LABORATORY DATA: Type & Screen None CBC (last 3 years, up to 5 values) WBC RBC Hgb Hct MCV RDW Plt 04/23/22 1248 5.8 4.94 15.2 43.7 89 13.4 137 04/27/20 1437 4.4 4.66 14.2 41.3 89 14.8 106 Basic Metabolic Panel Na K Cl CO2 Gap Glu BUN Cr Ca 04/23/22 1248 139 3.3 100 28 14 111 14 1.33 9.6 04/27/20 1437 141 3.3 105 27 12 97 19 1.05 9.1 Basic Metabolic Panel None PT/PTT/INR (last 3 years, up to 5 values) PT aPTT INR 04/23/22 1248 1.07 04/27/20 1437 1.04 Arterial Blood Gases None No result for BNP LFT's (last 3 years, up to 5 values) T Prot Albumin D Bili T Bili Alk Phos ALT AST 04/23/22 1248 6.4 4.6 0.20 1.0 68 35 29 04/27/20 1437 6.4 4.3 0.10 0.9 67 45 40 TESTS REVIEWED: CXRay: Chest x-ray was last done on 01/27/2022 EKG: Last ECG Date: Not Found ECHO: Last Echocardiogram: none found going back to 09/22/2001 No results found for this basename: LVEF Stress test date: Last StressTest: none found going back to 09/22/2001 CURRENT MEDICATION LIST: Current Outpatient Medications Medication Sig Dispense Refill sucralfate (CARAFATE) 1 GM tablet Take 1 Tablet by mouth 4 times daily. For upper abdominal pain. 120 Tablet 0 albuterol (PROVENTIL HFA) INHALATION HFA inhaler (VENTOLIN,PROAIR,PROVENTIL) 90mcg Inhale 2 Puffs by mouth. metoprolol (TOPROL-XL) 25 mg XL tablet Take 25 mg by mouth. chlorhexidine (PERIDEX) 0.12 % oral solution Take 15 mL by mouth 2 times daily. 1 Bottle 2 Docusate Sodium (DOC-Q-LACE ORAL) Take by mouth as needed. amLODIPine (NORVASC) 2.5 MG tablet Take 2.5 mg by mouth daily. lisinopril (ZESTRIL) 10 MG tablet Take 10 mg by mouth daily. ammonium lactate (LAC-HYDRIN) 12 % lotion Apply topically 2 times daily. Apply thin layer to affected area. 1 Bottle 3 Sofosbuvir (SOVALDI) 400 MG TABS tablet Take 1 Tablet by mouth daily. 30 Tablet 5 ribavirin (REBETOL) 200 MG capsule Take 2 Capsules by mouth 2 times daily. 150 Capsule 5 topiramate (TOPAMAX) 25 MG tablet Take 25 mg by mouth 2 times daily. trazodone 100 MG tablet Take 100 mg by mouth. GARLIC ORAL Take by mouth. Multiple Vitamin (MULTI-VITAMIN ORAL) Take by mouth daily. aspirin 81 MG tablet Take 81 mg by mouth daily. buPROPion (WELLBUTRIN XL) 300 MG XL tablet Take 300 mg by mouth daily. buPROPion ER (WELLBUTRIN XL) 150 MG XL tablet Take 150 mg by mouth daily. FLUoxetine HCl (PROZAC ORAL) Take 60 mg by mouth daily. furosemide (LASIX) 20 MG tablet Take 20 mg by mouth daily. lisinopril (ZESTRIL) 20 MG tablet Take 20 mg by mouth daily. amLODIPine (NORVASC) 2.5 MG tablet Take 2.5 mg by mouth daily. TYLENOL/CODEINE #3 300-30 MG OR TABS 1 OR 2 TABLETS EVERY 4 TO 6 HOURS NEEDED FOR PAIN 28 0 TRIAMCINOLONE ACETONIDE 0.1 % EX OINT apply bid to area affected 240gm 3 HYDROXYZINE HCL 25 MG OR TABS 1 to 2 tablets qhs 60 2 AMILORIDE-HYDROCHLOROTHIAZIDE 5-50 MG OR TABS 1 TABLET DAILY 30 3 MOTRIN 800 MG OR TABS 1 TABLET 3 TIMES DAILY 90 2 MOTRIN 800 MG OR TABS 1 TABLET every four hours XANAX OR None Entered HYDROCHLOROTHIAZIDE 25 MG OR TABS 1 TABLET DAILY ZOLOFT TABS 100 MG OR 1 TAB PO QD No current facility-administered medications for this visit. CURRENT MEDICATIONS: Aspirin: No NSAIDS: No Other Antiplatelet Medication: No Anticoagulants: No Steroids: No PATIENT MEDICATION INSTRUCTIONS: On the morning of your surgery please take only the following medications, with a small sip of water: metoprolol (TOPROL-XL) 25 mg XL tablet Docusate Sodium (DOC-Q-LACE ORAL) amLODIPine (NORVASC) 2.5 MG tablet trazodone 100 MG tablet HYDROXYZINE HCL 25 MG OR TABS XANAX OR Please do not eat or drink anything after midnight of the night prior to your procedure. You can have small sips of water the morning of to help take any AM medications. Do not take your Amiloride-hydrochlorothizaide, Lasix, the morning of your procedure. Please avoid taking medications, supplements or multivitamins not listed above the day of your surgery. Please avoid taking NSAIDs (Ibuprofen, Motrin, Aleve, etc.) for at least the 3 days prior to your procedure; these medications can increase your risk of bleeding during the procedure. You may take Tylenol if you have pain. Please avoid taking aspirin for 7 days prior to your procedure. This medication increases your riskof bleeding during the procedure. LABS, TESTS, CONSULTS ORDERED: No orders or meds were signed during this encounter Interviewer signature: Giacomo Mc MD 1:47 PM 07/28/2022 [employer] Work Phone: [phone] 591-754311-07-2022 Note* PSE Appt H&P - Giacomo Mc MD - 07/28/2022 1:40 PM EST Images from the original note were not included. Presurgical Evaluation Micheline FOX, [id number] 62 year old Female 07/28/2022 Height: 5' 5 Weight: 128.8 kg BMI: (47.26) VITAL SIGNS: Vitals: 07/28/22 1344 BP: 146/84 Pulse: 75 Resp: 15 Temp: 98.7 F (37.1 C) SpO2: 95% ALLERGIES: Allergies Allergen Reactions Fentanyl Itching Pt does not recall any reaction Codeine Latex Hives Penicillin [Penicillin G Potassium] Penicillins Hives HISTORY OF PRESENT ILLNESS: 62 year old female with PMHx HTN, KELLY cannot tolerate CPAP, ASHD, morbid obesity, gastritis, NAFLD, cirrhosis, GIST, MDD presents for pre-surgical evaluation for ESOPHAGOGASTRODUODENOSCOPY AND COLONOSCOPY, GENERAL ANESTHESIA. Patient denies any fever, chills, SOB, or chest pain. Patient is scheduled for the procedure on 08/11/2022. RECENT ILLNESS: Serious illness or hospitalization within the last six months. No STOP-BANG Row Name 07/28/22 1346 History of sleep apnea? Yes Diagnosed with KELLY, done in [facility] at [place]. Moderate KELLY. Patient was prescribed CPAP but was unable to tolerate. EXERCISE CAPACITY: <4 mets SOCIAL HISTORY: Social History Tobacco Use Smoking status: Former Packs/day: 0.50 Years: 15.00 Pack years: 7.50 Types: Cigarettes Quit date: 07/03/2014 Years since quittin.0 Smokeless tobacco: Never Substance Use Topics Alcohol use: Yes Comment: socially has no history on file for drug use. MEDICAL HISTORY: Past Medical History: Diagnosis Date Degeneration of cervical intervertebral disc Degeneration of lumbar or lumbosacral intervertebral disc Hernia of other specified sites of abdominal cavity without mention of obstruction or gangrene R inguinal hernia SURGICAL HISTORY: Past Surgical History: Procedure Laterality Date ARTHRODESIS, POSTERIOR TECHNIQUE, ATLAS-AXIS 1999 ARTHRODESIS, POSTERIOR/POSTEROLATERAL TECHNIQUE, SINGLE INTERSPACE, LUMBAR 1999 ARTHRODESIS, POSTERIOR/POSTEROLATERAL TECHNIQUE, SINGLE INTERSPACE, LUMBAR 2000 UNLISTED PROCEDURE, FOOT/TOES 1999 nerve repair VAGINAL HYSTERECTOMY; W/TOTAL/PARTIAL VAGINECTOMY; W/REPAIR, ENTEROCELE 1987 PROBLEM LIST: Patient Active Problem List: Other chronic nonalcoholic liver disease [K76.89] Nonspecific elevation of levels of transaminase or lactic acid dehydrogenase (LDH) [R74.01, R74.02] Obesity, unspecified [E66.9] Unspecified essential hypertension [I10] Tobacco use disorder [F17.200] Depressive disorder, not elsewhere classified [F32.89] Hernia of other specified sites of abdominal cavity without mention of obstruction or gangrene [K45.8] Degeneration of cervical intervertebral disc [M50.30] Degeneration of lumbar or lumbosacral intervertebral disc [M51.37] Endometriosis of uterus [N80.00] Hepatitis C virus infection cured after antiviral drug therapy [Z86.19] Other malaise and fatigue [R53.81, R53.83] Encounter for long-term (current) use of other medications [Z79.899] Nausea with vomiting [R11.2] Oral aphthae [K12.0] Unspecified disorder of skin and subcutaneous tissue [L98.9] Insomnia, unspecified [G47.00] Drug-induced mood disorder (HCC) [F19.94] 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19] Suture sinus [T81.89XA] Viral hepatitis C [B19.20] Ventral hernia [K43.9] Morbid obesity with BMI of 50.0-59.9, adult (HCC) [E66.01, Z68.43] Obesity [E66.9] Cirrhosis of liver (HCC) [K74.60] Hypertension [I10] Rectal bleeding [K62.5] Change in bowel habits [R19.4] RUQ pain [R10.11] Esophageal dysphagia [R13.19] FAMILY HISTORY: Family History Problem Relation Age of Onset Heart Disease Father ANESTHESIA REVIEW OF SYSTEMS: Eyes/ENT: Negative Teeth: Upper Denture Pulmonary: KELLY Cardio-vascular: HTN G.I./ Hepatic: Liver Disease, cirrhosis Renal/: Negative Neurological: Negative Gynecological: Negative Psychiatric: Depression Musculoskeletal: Fibromyalgia Endocrine: Obesity Hematologic: Negative Constitutional: Negative Skin: Negative PREVIOUS ANESTHETIC COMPLICATIONS: Anesthesia Complications No anesthesia history noted FAMILY HISTORY OF ANESTHETIC COMPLICATIONS: No PHYSICAL EXAM: Eyes: Normal ENT: Nares normal and Mucosa normal Pulmonary: Chest clear to auscultation bilaterally Cardiovascular: RRR with S1S2 Abdomen: Soft and non-tender Extremities: No gross or obvious abnormalities Neurologic: Awake, alert, oriented Psychiatric: alert and oriented to person, place and time Skin: No gross or obvious abnormalities on visible skin AIRWAY EXAM: Mallampati score: 1 TMD: Not Adequate Neck Extension/ Flexion: Adequate Mouth Opening: Adequate Dentition: Upper dentures Micrognathia/Overbite: No PAIN ASSESSMENT: Severity: 0 Location: N/A LABORATORY DATA: Type & Screen None CBC (last 3 years, up to 5 values) WBC RBC Hgb Hct MCV RDW Plt 04/23/22 1248 5.8 4.94 15.2 43.7 89 13.4 137 04/27/20 1437 4.4 4.66 14.2 41.3 89 14.8 106 Basic Metabolic Panel Na K Cl CO2 Gap Glu BUN Cr Ca 04/23/22 1248 139 3.3 100 28 14 111 14 1.33 9.6 04/27/20 1437 141 3.3 105 27 12 97 19 1.05 9.1 Basic Metabolic Panel None PT/PTT/INR (last 3 years, up to 5 values) PT aPTT INR 04/23/22 1248 1.07 04/27/20 1437 1.04 Arterial Blood Gases None No result for BNP LFT's (last 3 years, up to 5 values) T Prot Albumin D Bili T Bili Alk Phos ALT AST 04/23/22 1248 6.4 4.6 0.20 1.0 68 35 29 04/27/20 1437 6.4 4.3 0.10 0.9 67 45 40 TESTS REVIEWED: CXRay: Chest x-ray was last done on 01/27/2022 EKG: Last ECG Date: Not Found ECHO: Last Echocardiogram: none found going back to 09/22/2001 No results found for this basename: LVEF Stress test date: Last StressTest: none found going back to 09/22/2001 CURRENT MEDICATION LIST: Current Outpatient Medications Medication Sig Dispense Refill sucralfate (CARAFATE) 1 GM tablet Take 1 Tablet by mouth 4 times daily. For upper abdominal pain. 120 Tablet 0 albuterol (PROVENTIL HFA) INHALATION HFA inhaler (VENTOLIN,PROAIR,PROVENTIL) 90mcg Inhale 2 Puffs by mouth. metoprolol (TOPROL-XL) 25 mg XL tablet Take 25 mg by mouth. chlorhexidine (PERIDEX) 0.12 % oral solution Take 15 mL by mouth 2 times daily. 1 Bottle 2 Docusate Sodium (DOC-Q-LACE ORAL) Take by mouth as needed. amLODIPine (NORVASC) 2.5 MG tablet Take 2.5 mg by mouth daily. lisinopril (ZESTRIL) 10 MG tablet Take 10 mg by mouth daily. ammonium lactate (LAC-HYDRIN) 12 % lotion Apply topically 2 times daily. Apply thin layer to affected area. 1 Bottle 3 Sofosbuvir (SOVALDI) 400 MG TABS tablet Take 1 Tablet by mouth daily. 30 Tablet 5 ribavirin (REBETOL) 200 MG capsule Take 2 Capsules by mouth 2 times daily. 150 Capsule 5 topiramate (TOPAMAX) 25 MG tablet Take 25 mg by mouth 2 times daily. trazodone 100 MG tablet Take 100 mg by mouth. GARLIC ORAL Take by mouth. Multiple Vitamin (MULTI-VITAMIN ORAL) Take by mouth daily. aspirin 81 MG tablet Take 81 mg by mouth daily. buPROPion (WELLBUTRIN XL) 300 MG XL tablet Take 300 mg by mouth daily. buPROPion ER (WELLBUTRIN XL) 150 MG XL tablet Take 150 mg by mouth daily. FLUoxetine HCl (PROZAC ORAL) Take 60 mg by mouth daily. furosemide (LASIX) 20 MG tablet Take 20 mg by mouth daily. lisinopril (ZESTRIL) 20 MG tablet Take 20 mg by mouth daily. amLODIPine (NORVASC) 2.5 MG tablet Take 2.5 mg by mouth daily. TYLENOL/CODEINE #3 300-30 MG OR TABS 1 OR 2 TABLETS EVERY 4 TO 6 HOURS NEEDED FOR PAIN 28 0 TRIAMCINOLONE ACETONIDE 0.1 % EX OINT apply bid to area affected 240gm 3 HYDROXYZINE HCL 25 MG OR TABS 1 to 2 tablets qhs 60 2 AMILORIDE-HYDROCHLOROTHIAZIDE 5-50 MG OR TABS 1 TABLET DAILY 30 3 MOTRIN 800 MG OR TABS 1 TABLET 3 TIMES DAILY 90 2 MOTRIN 800 MG OR TABS 1 TABLET every four hours XANAX OR None Entered HYDROCHLOROTHIAZIDE 25 MG OR TABS 1 TABLET DAILY ZOLOFT TABS 100 MG OR 1 TAB PO QD No current facility-administered medications for this visit. CURRENT MEDICATIONS: Aspirin: No NSAIDS: No Other Antiplatelet Medication: No Anticoagulants: No Steroids: No PATIENT MEDICATION INSTRUCTIONS: On the morning of your surgery please take only the following medications, with a small sip of water: metoprolol (TOPROL-XL) 25 mg XL tablet Docusate Sodium (DOC-Q-LACE ORAL) amLODIPine (NORVASC) 2.5 MG tablet trazodone 100 MG tablet HYDROXYZINE HCL 25 MG OR TABS XANAX OR Please do not eat or drink anything after midnight of the night prior to your procedure. You can have small sips of water the morning of to help take any AM medications. Do not take your Amiloride-hydrochlorothizaide, Lasix, the morning of your procedure. Please avoid taking medications, supplements or multivitamins not listed above the day of your surgery. Please avoid taking NSAIDs (Ibuprofen, Motrin, Aleve, etc.) for at least the 3 days prior to your procedure; these medications can increase your risk of bleeding during the procedure. You may take Tylenol if you have pain. Please avoid taking aspirin for 7 days prior to your procedure. This medication increases your riskof bleeding during the procedure. LABS, TESTS, CONSULTS ORDERED: No orders or meds were signed during this encounter Interviewer signature: Giacomo Mc MD 1:47 PM 07/28/2022 [employer] Work Phone: [phone] Note* PSE Appt H&P - Giacomo Mc MD - 07/28/2022 1:40 PM EST Images from the original note were not included. Presurgical Evaluation Micheline FOX, [id number] 62 year old Female 07/28/2022 Height: 5' 5 Weight: 128.8 kg BMI: (47.26) VITAL SIGNS: Vitals: 07/28/22 1344 BP: 146/84 Pulse: 75 Resp: 15 Temp: 98.7 F (37.1 C) SpO2: 95% ALLERGIES: Allergies Allergen Reactions Fentanyl Itching Pt does not recall any reaction Codeine Latex Hives Penicillin [Penicillin G Potassium] Penicillins Hives HISTORY OF PRESENT ILLNESS: 62 year old female with PMHx HTN, KELLY cannot tolerate CPAP, ASHD, morbid obesity, gastritis, NAFLD, cirrhosis, GIST, MDD presents for pre-surgical evaluation for ESOPHAGOGASTRODUODENOSCOPY AND COLONOSCOPY, GENERAL ANESTHESIA. Patient denies any fever, chills, SOB, or chest pain. Patient is scheduled for the procedure on 08/11/2022. RECENT ILLNESS: Serious illness or hospitalization within the last six months. No STOP-BANG Row Name 07/28/22 1346 History of sleep apnea? Yes Diagnosed with KELLY, done in [facility] at [place]. Moderate KELLY. Patient was prescribed CPAP but was unable to tolerate. EXERCISE CAPACITY: <4 mets SOCIAL HISTORY: Social History Tobacco Use Smoking status: Former Packs/day: 0.50 Years: 15.00 Pack years: 7.50 Types: Cigarettes Quit date: 07/03/2014 Years since quittin.0 Smokeless tobacco: Never Substance Use Topics Alcohol use: Yes Comment: socially has no history on file for drug use. MEDICAL HISTORY: Past Medical History: Diagnosis Date Degeneration of cervical intervertebral disc Degeneration of lumbar or lumbosacral intervertebral disc Hernia of other specified sites of abdominal cavity without mention of obstruction or gangrene R inguinal hernia SURGICAL HISTORY: Past Surgical History: Procedure Laterality Date ARTHRODESIS, POSTERIOR TECHNIQUE, ATLAS-AXIS 1999 ARTHRODESIS, POSTERIOR/POSTEROLATERAL TECHNIQUE, SINGLE INTERSPACE, LUMBAR 1999 ARTHRODESIS, POSTERIOR/POSTEROLATERAL TECHNIQUE, SINGLE INTERSPACE, LUMBAR 2000 UNLISTED PROCEDURE, FOOT/TOES 1999 nerve repair VAGINAL HYSTERECTOMY; W/TOTAL/PARTIAL VAGINECTOMY; W/REPAIR, ENTEROCELE 1987 PROBLEM LIST: Patient Active Problem List: Other chronic nonalcoholic liver disease [K76.89] Nonspecific elevation of levels of transaminase or lactic acid dehydrogenase (LDH) [R74.01, R74.02] Obesity, unspecified [E66.9] Unspecified essential hypertension [I10] Tobacco use disorder [F17.200] Depressive disorder, not elsewhere classified [F32.89] Hernia of other specified sites of abdominal cavity without mention of obstruction or gangrene [K45.8] Degeneration of cervical intervertebral disc [M50.30] Degeneration of lumbar or lumbosacral intervertebral disc [M51.37] Endometriosis of uterus [N80.00] Hepatitis C virus infection cured after antiviral drug therapy [Z86.19] Other malaise and fatigue [R53.81, R53.83] Encounter for long-term (current) use of other medications [Z79.899] Nausea with vomiting [R11.2] Oral aphthae [K12.0] Unspecified disorder of skin and subcutaneous tissue [L98.9] Insomnia, unspecified [G47.00] Drug-induced mood disorder (HCC) [F19.94] 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19] Suture sinus [T81.89XA] Viral hepatitis C [B19.20] Ventral hernia [K43.9] Morbid obesity with BMI of 50.0-59.9, adult (HCC) [E66.01, Z68.43] Obesity [E66.9] Cirrhosis of liver (HCC) [K74.60] Hypertension [I10] Rectal bleeding [K62.5] Change in bowel habits [R19.4] RUQ pain [R10.11] Esophageal dysphagia [R13.19] FAMILY HISTORY: Family History Problem Relation Age of Onset Heart Disease Father ANESTHESIA REVIEW OF SYSTEMS: Eyes/ENT: Negative Teeth: Upper Denture Pulmonary: KELLY Cardio-vascular: HTN G.I./ Hepatic: Liver Disease, cirrhosis Renal/: Negative Neurological: Negative Gynecological: Negative Psychiatric: Depression Musculoskeletal: Fibromyalgia Endocrine: Obesity Hematologic: Negative Constitutional: Negative Skin: Negative PREVIOUS ANESTHETIC COMPLICATIONS: Anesthesia Complications No anesthesia history noted FAMILY HISTORY OF ANESTHETIC COMPLICATIONS: No PHYSICAL EXAM: Eyes: Normal ENT: Nares normal and Mucosa normal Pulmonary: Chest clear to auscultation bilaterally Cardiovascular: RRR with S1S2 Abdomen: Soft and non-tender Extremities: No gross or obvious abnormalities Neurologic: Awake, alert, oriented Psychiatric: alert and oriented to person, place and time Skin: No gross or obvious abnormalities on visible skin AIRWAY EXAM: Mallampati score: 1 TMD: Not Adequate Neck Extension/ Flexion: Adequate Mouth Opening: Adequate Dentition: Upper dentures Micrognathia/Overbite: No PAIN ASSESSMENT: Severity: 0 Location: N/A LABORATORY DATA: Type & Screen None CBC (last 3 years, up to 5 values) WBC RBC Hgb Hct MCV RDW Plt 04/23/22 1248 5.8 4.94 15.2 43.7 89 13.4 137 04/27/20 1437 4.4 4.66 14.2 41.3 89 14.8 106 Basic Metabolic Panel Na K Cl CO2 Gap Glu BUN Cr Ca 04/23/22 1248 139 3.3 100 28 14 111 14 1.33 9.6 04/27/20 1437 141 3.3 105 27 12 97 19 1.05 9.1 Basic Metabolic Panel None PT/PTT/INR (last 3 years, up to 5 values) PT aPTT INR 04/23/22 1248 1.07 04/27/20 1437 1.04 Arterial Blood Gases None No result for BNP LFT's (last 3 years, up to 5 values) T Prot Albumin D Bili T Bili Alk Phos ALT AST 04/23/22 1248 6.4 4.6 0.20 1.0 68 35 29 04/27/20 1437 6.4 4.3 0.10 0.9 67 45 40 TESTS REVIEWED: CXRay: Chest x-ray was last done on 01/27/2022 EKG: Last ECG Date: Not Found ECHO: Last Echocardiogram: none found going back to 09/22/2001 No results found for this basename: LVEF Stress test date: Last StressTest: none found going back to 09/22/2001 CURRENT MEDICATION LIST: Current Outpatient Medications Medication Sig Dispense Refill sucralfate (CARAFATE) 1 GM tablet Take 1 Tablet by mouth 4 times daily. For upper abdominal pain. 120 Tablet 0 albuterol (PROVENTIL HFA) INHALATION HFA inhaler (VENTOLIN,PROAIR,PROVENTIL) 90mcg Inhale 2 Puffs by mouth. metoprolol (TOPROL-XL) 25 mg XL tablet Take 25 mg by mouth. chlorhexidine (PERIDEX) 0.12 % oral solution Take 15 mL by mouth 2 times daily. 1 Bottle 2 Docusate Sodium (DOC-Q-LACE ORAL) Take by mouth as needed. amLODIPine (NORVASC) 2.5 MG tablet Take 2.5 mg by mouth daily. lisinopril (ZESTRIL) 10 MG tablet Take 10 mg by mouth daily. ammonium lactate (LAC-HYDRIN) 12 % lotion Apply topically 2 times daily. Apply thin layer to affected area. 1 Bottle 3 Sofosbuvir (SOVALDI) 400 MG TABS tablet Take 1 Tablet by mouth daily. 30 Tablet 5 ribavirin (REBETOL) 200 MG capsule Take 2 Capsules by mouth 2 times daily. 150 Capsule 5 topiramate (TOPAMAX) 25 MG tablet Take 25 mg by mouth 2 times daily. trazodone 100 MG tablet Take 100 mg by mouth. GARLIC ORAL Take by mouth. Multiple Vitamin (MULTI-VITAMIN ORAL) Take by mouth daily. aspirin 81 MG tablet Take 81 mg by mouth daily. buPROPion (WELLBUTRIN XL) 300 MG XL tablet Take 300 mg by mouth daily. buPROPion ER (WELLBUTRIN XL) 150 MG XL tablet Take 150 mg by mouth daily. FLUoxetine HCl (PROZAC ORAL) Take 60 mg by mouth daily. furosemide (LASIX) 20 MG tablet Take 20 mg by mouth daily. lisinopril (ZESTRIL) 20 MG tablet Take 20 mg by mouth daily. amLODIPine (NORVASC) 2.5 MG tablet Take 2.5 mg by mouth daily. TYLENOL/CODEINE #3 300-30 MG OR TABS 1 OR 2 TABLETS EVERY 4 TO 6 HOURS NEEDED FOR PAIN 28 0 TRIAMCINOLONE ACETONIDE 0.1 % EX OINT apply bid to area affected 240gm 3 HYDROXYZINE HCL 25 MG OR TABS 1 to 2 tablets qhs 60 2 AMILORIDE-HYDROCHLOROTHIAZIDE 5-50 MG OR TABS 1 TABLET DAILY 30 3 MOTRIN 800 MG OR TABS 1 TABLET 3 TIMES DAILY 90 2 MOTRIN 800 MG OR TABS 1 TABLET every four hours XANAX OR None Entered HYDROCHLOROTHIAZIDE 25 MG OR TABS 1 TABLET DAILY ZOLOFT TABS 100 MG OR 1 TAB PO QD No current facility-administered medications for this visit. CURRENT MEDICATIONS: Aspirin: No NSAIDS: No Other Antiplatelet Medication: No Anticoagulants: No Steroids: No PATIENT MEDICATION INSTRUCTIONS: On the morning of your surgery please take only the following medications, with a small sip of water: metoprolol (TOPROL-XL) 25 mg XL tablet Docusate Sodium (DOC-Q-LACE ORAL) amLODIPine (NORVASC) 2.5 MG tablet trazodone 100 MG tablet HYDROXYZINE HCL 25 MG OR TABS XANAX OR Please do not eat or drink anything after midnight of the night prior to your procedure. You can have small sips of water the morning of to help take any AM medications. Do not take your Amiloride-hydrochlorothizaide, Lasix, the morning of your procedure. Please avoid taking medications, supplements or multivitamins not listed above the day of your surgery. Please avoid taking NSAIDs (Ibuprofen, Motrin, Aleve, etc.) for at least the 3 days prior to your procedure; these medications can increase your risk of bleeding during the procedure. You may take Tylenol if you have pain. Please avoid taking aspirin for 7 days prior to your procedure. This medication increases your riskof bleeding during the procedure. LABS, TESTS, CONSULTS ORDERED: No orders or meds were signed during this encounter Interviewer signature: Giacomo Mc MD 1:47 PM 07/28/2022 [employer] Work Phone: [phone] 192-998511-07-2022 Miscellaneous Notes* PSE Appt H&P - Giacomo cM MD - 07/28/2022 1:40 PM EST Images from the original note were not included. Presurgical Evaluation Micheline Bennett EVIN, [id number] 62 year old Female 07/28/2022 Height: 5' 5 Weight: 128.8 kg BMI: (47.26) VITAL SIGNS: Vitals: 07/28/22 1344 BP: 146/84 Pulse: 75 Resp: 15 Temp: 98.7 F (37.1 C) SpO2: 95% ALLERGIES: Allergies Allergen Reactions Fentanyl Itching Pt does not recall any reaction Codeine Latex Hives Penicillin [Penicillin G Potassium] Penicillins Hives HISTORY OF PRESENT ILLNESS: 62 year old female with PMHx HTN, KELLY cannot tolerate CPAP, ASHD, morbid obesity, gastritis, NAFLD, cirrhosis, GIST, MDD presents for pre-surgical evaluation for ESOPHAGOGASTRODUODENOSCOPY AND COLONOSCOPY, GENERAL ANESTHESIA. Patient denies any fever, chills, SOB, or chest pain. Patient is scheduled for the procedure on 08/11/2022. RECENT ILLNESS: Serious illness or hospitalization within the last six months. No STOP-BANG Row Name 07/28/22 1346 History of sleep apnea? Yes Diagnosed with KELLY, done in [facility] at [place]. Moderate KELLY. Patient was prescribed CPAP but was unable to tolerate. EXERCISE CAPACITY: <4 mets SOCIAL HISTORY: Social History Tobacco Use Smoking status: Former Packs/day: 0.50 Years: 15.00 Pack years: 7.50 Types: Cigarettes Quit date: 07/03/2014 Years since quittin.0 Smokeless tobacco: Never Substance Use Topics Alcohol use: Yes Comment: socially has no history on file for drug use. MEDICAL HISTORY: Past Medical History: Diagnosis Date Degeneration of cervical intervertebral disc Degeneration of lumbar or lumbosacral intervertebral disc Hernia of other specified sites of abdominal cavity without mention of obstruction or gangrene R inguinal hernia SURGICAL HISTORY: Past Surgical History: Procedure Laterality Date ARTHRODESIS, POSTERIOR TECHNIQUE, ATLAS-AXIS 1999 ARTHRODESIS, POSTERIOR/POSTEROLATERAL TECHNIQUE, SINGLE INTERSPACE, LUMBAR 1999 ARTHRODESIS, POSTERIOR/POSTEROLATERAL TECHNIQUE, SINGLE INTERSPACE, LUMBAR 2000 UNLISTED PROCEDURE, FOOT/TOES 1999 nerve repair VAGINAL HYSTERECTOMY; W/TOTAL/PARTIAL VAGINECTOMY; W/REPAIR, ENTEROCELE 1987 PROBLEM LIST: Patient Active Problem List: Other chronic nonalcoholic liver disease [K76.89] Nonspecific elevation of levels of transaminase or lactic acid dehydrogenase (LDH) [R74.01, R74.02] Obesity, unspecified [E66.9] Unspecified essential hypertension [I10] Tobacco use disorder [F17.200] Depressive disorder, not elsewhere classified [F32.89] Hernia of other specified sites of abdominal cavity without mention of obstruction or gangrene [K45.8] Degeneration of cervical intervertebral disc [M50.30] Degeneration of lumbar or lumbosacral intervertebral disc [M51.37] Endometriosis of uterus [N80.00] Hepatitis C virus infection cured after antiviral drug therapy [Z86.19] Other malaise and fatigue [R53.81, R53.83] Encounter for long-term (current) use of other medications [Z79.899] Nausea with vomiting [R11.2] Oral aphthae [K12.0] Unspecified disorder of skin and subcutaneous tissue [L98.9] Insomnia, unspecified [G47.00] Drug-induced mood disorder (HCC) [F19.94] 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19] Suture sinus [T81.89XA] Viral hepatitis C [B19.20] Ventral hernia [K43.9] Morbid obesity with BMI of 50.0-59.9, adult (HCC) [E66.01, Z68.43] Obesity [E66.9] Cirrhosis of liver (HCC) [K74.60] Hypertension [I10] Rectal bleeding [K62.5] Change in bowel habits [R19.4] RUQ pain [R10.11] Esophageal dysphagia [R13.19] FAMILY HISTORY: Family History Problem Relation Age of Onset Heart Disease Father ANESTHESIA REVIEW OF SYSTEMS: Eyes/ENT: Negative Teeth: Upper Denture Pulmonary: KELLY Cardio-vascular: HTN G.I./ Hepatic: Liver Disease, cirrhosis Renal/: Negative Neurological: Negative Gynecological: Negative Psychiatric: Depression Musculoskeletal: Fibromyalgia Endocrine: Obesity Hematologic: Negative Constitutional: Negative Skin: Negative PREVIOUS ANESTHETIC COMPLICATIONS: Anesthesia Complications No anesthesia history noted FAMILY HISTORY OF ANESTHETIC COMPLICATIONS: No PHYSICAL EXAM: Eyes: Normal ENT: Nares normal and Mucosa normal Pulmonary: Chest clear to auscultation bilaterally Cardiovascular: RRR with S1S2 Abdomen: Soft and non-tender Extremities: No gross or obvious abnormalities Neurologic: Awake, alert, oriented Psychiatric: alert and oriented to person, place and time Skin: No gross or obvious abnormalities on visible skin AIRWAY EXAM: Mallampati score: 1 TMD: Not Adequate Neck Extension/ Flexion: Adequate Mouth Opening: Adequate Dentition: Upper dentures Micrognathia/Overbite: No PAIN ASSESSMENT: Severity: 0 Location: N/A LABORATORY DATA: Type & Screen None CBC (last 3 years, up to 5 values) WBC RBC Hgb Hct MCV RDW Plt 04/23/22 1248 5.8 4.94 15.2 43.7 89 13.4 137 04/27/20 1437 4.4 4.66 14.2 41.3 89 14.8 106 Basic Metabolic Panel Na K Cl CO2 Gap Glu BUN Cr Ca 04/23/22 1248 139 3.3 100 28 14 111 14 1.33 9.6 04/27/20 1437 141 3.3 105 27 12 97 19 1.05 9.1 Basic Metabolic Panel None PT/PTT/INR (last 3 years, up to 5 values) PT aPTT INR 04/23/22 1248 1.07 04/27/20 1437 1.04 Arterial Blood Gases None No result for BNP LFT's (last 3 years, up to 5 values) T Prot Albumin D Bili T Bili Alk Phos ALT AST 04/23/22 1248 6.4 4.6 0.20 1.0 68 35 29 04/27/20 1437 6.4 4.3 0.10 0.9 67 45 40 TESTS REVIEWED: CXRay: Chest x-ray was last done on 01/27/2022 EKG: Last ECG Date: Not Found ECHO: Last Echocardiogram: none found going back to 09/22/2001 No results found for this basename: LVEF Stress test date: Last StressTest: none found going back to 09/22/2001 CURRENT MEDICATION LIST: Current Outpatient Medications Medication Sig Dispense Refill sucralfate (CARAFATE) 1 GM tablet Take 1 Tablet by mouth 4 times daily. For upper abdominal pain. 120 Tablet 0 albuterol (PROVENTIL HFA) INHALATION HFA inhaler (VENTOLIN,PROAIR,PROVENTIL) 90mcg Inhale 2 Puffs by mouth. metoprolol (TOPROL-XL) 25 mg XL tablet Take 25 mg by mouth. chlorhexidine (PERIDEX) 0.12 % oral solution Take 15 mL by mouth 2 times daily. 1 Bottle 2 Docusate Sodium (DOC-Q-LACE ORAL) Take by mouth as needed. amLODIPine (NORVASC) 2.5 MG tablet Take 2.5 mg by mouth daily. lisinopril (ZESTRIL) 10 MG tablet Take 10 mg by mouth daily. ammonium lactate (LAC-HYDRIN) 12 % lotion Apply topically 2 times daily. Apply thin layer to affected area. 1 Bottle 3 Sofosbuvir (SOVALDI) 400 MG TABS tablet Take 1 Tablet by mouth daily. 30 Tablet 5 ribavirin (REBETOL) 200 MG capsule Take 2 Capsules by mouth 2 times daily. 150 Capsule 5 topiramate (TOPAMAX) 25 MG tablet Take 25 mg by mouth 2 times daily. trazodone 100 MG tablet Take 100 mg by mouth. GARLIC ORAL Take by mouth. Multiple Vitamin (MULTI-VITAMIN ORAL) Take by mouth daily. aspirin 81 MG tablet Take 81 mg by mouth daily. buPROPion (WELLBUTRIN XL) 300 MG XL tablet Take 300 mg by mouth daily. buPROPion ER (WELLBUTRIN XL) 150 MG XL tablet Take 150 mg by mouth daily. FLUoxetine HCl (PROZAC ORAL) Take 60 mg by mouth daily. furosemide (LASIX) 20 MG tablet Take 20 mg by mouth daily. lisinopril (ZESTRIL) 20 MG tablet Take 20 mg by mouth daily. amLODIPine (NORVASC) 2.5 MG tablet Take 2.5 mg by mouth daily. TYLENOL/CODEINE #3 300-30 MG OR TABS 1 OR 2 TABLETS EVERY 4 TO 6 HOURS NEEDED FOR PAIN 28 0 TRIAMCINOLONE ACETONIDE 0.1 % EX OINT apply bid to area affected 240gm 3 HYDROXYZINE HCL 25 MG OR TABS 1 to 2 tablets qhs 60 2 AMILORIDE-HYDROCHLOROTHIAZIDE 5-50 MG OR TABS 1 TABLET DAILY 30 3 MOTRIN 800 MG OR TABS 1 TABLET 3 TIMES DAILY 90 2 MOTRIN 800 MG OR TABS 1 TABLET every four hours XANAX OR None Entered HYDROCHLOROTHIAZIDE 25 MG OR TABS 1 TABLET DAILY ZOLOFT TABS 100 MG OR 1 TAB PO QD No current facility-administered medications for this visit. CURRENT MEDICATIONS: Aspirin: No NSAIDS: No Other Antiplatelet Medication: No Anticoagulants: No Steroids: No PATIENT MEDICATION INSTRUCTIONS: On the morning of your surgery please take only the following medications, with a small sip of water: metoprolol (TOPROL-XL) 25 mg XL tablet Docusate Sodium (DOC-Q-LACE ORAL) amLODIPine (NORVASC) 2.5 MG tablet trazodone 100 MG tablet HYDROXYZINE HCL 25 MG OR TABS XANAX OR Please do not eat or drink anything after midnight of the night prior to your procedure. You can have small sips of water the morning of to help take any AM medications. Do not take your Amiloride-hydrochlorothizaide, Lasix, the morning of your procedure. Please avoid taking medications, supplements or multivitamins not listed above the day of your surgery. Please avoid taking NSAIDs (Ibuprofen, Motrin, Aleve, etc.) for at least the 3 days prior to your procedure; these medications can increase your risk of bleeding during the procedure. You may take Tylenol if you have pain. Please avoid taking aspirin for 7 days prior to your procedure. This medication increases your riskof bleeding during the procedure. LABS, TESTS, CONSULTS ORDERED: No orders or meds were signed during this encounter Interviewer signature: Giacomo Mc MD 1:47 PM 07/28/2022 documented in this [id number] Instructions* Patient Instructions* Eusebia Jones, EXAMINATION SCORER-CONTRACTS DIRECTOR - 04/23/2022 2:15 PM EDT COLONOSCOPY COLYTE SPLIT PREP DO NOT FOLLOW INSTRUCTIONS ON THE COLYTE BOTTLE WHAT IS A COLONOSCOPY? Colonoscopy is a way to look at the inside of the colon or lower bowel with a flexible tube called a colonoscope. The scope has a light and a camera in it. This allows the doctor to view the inside of the colon to find disease processes which do not show on x-ray examination. During the test a polyp may be found. Polyps are abnormal growths of tissue which vary in size. They can be removed during the colonoscopy. This is called a polypectomy. Polyps are usually removed because they can cause rectal bleeding or may become cancer. WHAT PREPARATION IS REQUIRED? Proper preparation is very important for this test. The colon must be clean and empty for the doctor to do the test. Your doctor will give you a prescription for a medication called COLYTE, GOLYTELY OR NULYTELY. This will be used to cleanse your bowels. CONTACT YOUR PRIMARY CARE PHYSICIAN FOR THE FOLLOWING: - Regarding any changes or what medication should be taken on the test day. - IF you are taking any BLOOD THINNER MEDICATIONS such as Coumadin, Heparin, Ticlid or Plavix, these may or may not be stopped before your test. Please talk to your doctor about any medicine changes. - DIABETIC patients, ask your doctor about diabetic medications for day before and day of the test.Please check your blood sugar before arriving for the test. 7 DAYS BEFORE THE TEST STOP TAKING THE FOLLOWING MEDICATIONS: - Iron pills 3 DAYS BEFORE THE TEST: STOP eating corn, dried beans, tomatoes, nuts or seeds. THE DAY BEFORE THE TEST: Start a clear liquid diet. No solid foods or milk products are allowed. Patients with diabetes or who had a colonoscopy before and were told their bowel prep was not real good; please begin the clearliquid diet 2 days before colonoscopy. Please drink plenty of clear liquids on this day. Clear liquids are liquids that you can see through. EXAMPLES OF CLEAR LIQUIDS ARE: - Clear broth (chicken, beef, turkey, vegetable) - Cranberry juice - Water - Sprite, 7-up, simon jacob - Flavored senior - Coffee/tea with sugar or honey - White grape juice - Gatorade, Koolaid, Jello (no red or blue) - Apple juice - Popsicles (no red or blue) THE MORNING BEFORE THE TEST - Prepare the Colyte in the morning. - Add water to the fill line. It may be refrigerated. - You may only add Lemonade Flavor Crystal Light to the solution. - Do NOT add ice or pour over ice when drinking. YOUR PREP INSTRUCTION WILL DEPEND ON THE TIME OF YOUR PROCEDURE IF YOU HAVE AN APPOINTMENT BETWEEN 8:00 AM - 12 NOON: 4:00 PM THE EVENING BEFORE THE TEST: - Drink one 8-ounce glass of COLYTE every 10-15 minutes. - DRINK ONLY HALF OF THE BOTTLE OF COLYTE. - Finish this portion within 2 hours. Do not pour over ice. Do not drink anything else with the Colyte. 09:00 PM Drink the rest of the Colyte. Finish within 2 hours. IF YOU HAVE AN APPOINTMENT AFTER 12 NOON: 09:00 PM THE EVENING BEFORE THE TEST: - Drink one 8-ounce glass of COLYTE every 10-15 minutes. - DRINK ONLY HALF OF THE BOTTLE OF COLYTE. - Finish this portion within 2 hours. Do not pour over ice. Do not drink anything else with the Colyte. 6:00 AM (Day of test) Drink the rest of the Colyte. Finish within 2 hours. If you become full or nauseated while drinking COLYTE you may wait until this feeling subsides and then continue drinking. Your bowels should begin to move in the first hour. Your bowel movements should run clear like water. You may have clear liquids (other than Colyte) up to 3 hours before the test. WHAT SHOULD YOU EXPECT DURING THE COLONOSCOPY: You will change into a patient gown and an IV will be started. Your doctor will give you medicationthrough the IV to help you feel sleepy and relaxed. The scope is inserted into the rectum and gradually advanced through the colon. There may be some discomfort during the test but it is usually mild. A nurse will be present to assist you before, during, and after the test. The procedure will last approximately 30-45 minutes. WHAT HAPPENS AFTER THE COLONOSCOPY: After the test is done you will be moved to the recovery area of the Endoscopy unit. You will rest for approximately one hour or until the effects of the medication have worn off. You may feel full or distended after the test due to the air that was put into your colon during the test. YOU MUST HAVE A RESPONSIBLE ADULT ACCOMPANY YOU HOME FROM THE ENDOSCOPY UNIT BECAUSE OF THE MEDICATION GIVEN. IF YOU HAVE AN AFTERNOON APPOINTMENT, WE EXPECT YOUR RESPONSIBLE ADULT TO REMAIN IN THE WAITING ROOM DURING YOUR PROCEDURE. IF YOU DO NOT HAVE A RESPONSIBLE ADULT WITH YOU, YOUR PROCEDURE WILL BE RESCHEDULED A responsible adult should remain with you for the next 24 hours. If using [employer], cab, or bus you must still have a responsible adult with you and remain with you for the next 24 hours. Location: [facility] [address]: Park in the underground garage of the [facility] off [address], cross [address] and go through the Emergency Department entrance then immediately turn left and follow the signs to the Endoscopy Suite on the 2nd floor by taking the F elevators OR Park in the surface lot further south on [address], go through the Emergency Department entrance then immediately turn left and follow the signs to the Endoscopy Suite on the 2nd floor by taking the F elevators OR Use Painting Machine Operator Parking located at the Emergency Department entrance off [address], go through the Emergency Department entrance then immediately turn left and follow the signs to the Endoscopy Suite on the2nd floor by taking the F elevators Please call M-F 7:00am-6:00pm for any pre-procedural questions. After hours, please call to speak to the [facility] [id number]. If you need to cancel this appointment, please call , at least 48 hours before your appointment time. PLEASE BRING IN YOUR INSURANCE CARD AND MEDICATIONS OR LIST OF CURRENT MEDICATIONS. PLEASE LEAVE JEWELRY AT HOME AND DO NOT WEAR HEAVY FRAGRANCE OR NAIL SETSWANA WE MAKE EVERY ATTEMPT TO MAINTAIN OUR SCHEDULE; HOWEVER, IT IS NOT ALWAYS POSSIBLE. SOME PROCEDURESMAY TAKE LONGER THAN OTHERS AND OUR CASES ARE SCHEDULED TO FOLLOW ONE ANOTHER. WE APOLOGIZE FOR ANYDELAYS. documented in this [id number] History of Present illness Narrative* Eusebia Jones APRN-CNP - 04/23/2022 2:00 PM EDT Images from the original note were not included. Department of Gastroenterology GI Clinic Note PCP: Leticia Sylvester Referred by: Referring Provider: Self Patient Last GI Visit: Most recent visit in Gastroenterology was on 12/30/2011 with Giuliana Amado RN Chief Complaint: Chief Complaint Patient presents with GI FOLLOW UP HPI: Micheline FOX is a 61 year old female with PMH of obesity s/p gastric bypass (in the 80s), cholecystectomy, hysterectomy, hernia repair with mesh, Hep C s/p treatment and SVR, compensated cirrhosis and KELLY (not compliant with cpap). Being seen in GI clinic today for new GI consult regarding abdominal pain. Has had stomach pain for years but continuing to get worse. Saw liver this morning. It is RUQ pain.Ct is pending. Sometimes worse with eating but not always. Worse with movement but can be sudden sharp. Worse with walking. +nauseated no vomiting. +lethargy Non compliant with CPAP Recently more constipated, BM every 2-3 days. Is on stool softener so when she goes it is soft. Shesees red blood with stools. Hx of internal hemorrhoids. Has esophageal dysphagia, points to her throat, even with saliva. Liuqids alone are ok. Weight has been steady. Denies heartburn or reflux. Reports no NSAID use, very seldom Etoh, no smoking, no elicit drug use. Paternal grandmother and grandfather with CRC No family Hx of stomach cancer, pancreatic cancer or IBD Past medical, surgical, family and social histories reviewed and updated as appropriate. GI procedures reviewed: EGD 06/2015 DUODENUM: bulb notable for polypoid tissue. Biopsies taken, sent for pathology in bottle A. Descending portion appeared normal. STOMACH: pyloric channel, antrum, and body were normal appearing. On retroflexed view, portal hypertensive gastropathy of gastric fundus and cardia noted, but no gastric varices ESOPHAGUS: Diaphragmatic hiatus was 40 cm from incisors and GE junction (upper margin of gastric folds) was at 38 cm from incisors. Squamocolumnar junction was at 38 cm from incisors. Irregular Z line, but no tongues of Bermudez's. Mucosa appeared normal. No esophageal varices Colonoscopy 06/2015 FINDINGS: Cecum: Normal. Ascending Colon: Normal. Hepatic Flexure: Normal. Transverse Colon: Normal. Splenic Flexure: Normal. Descending Colon: Normal. Sigmoid Colon: Normal. Rectum: Abnormal, one sessile, 3mm diminutive appearing polyp noted. Removed using biopsy forceps, sent for pathology in bottle B. Retroflexed Views: Rectum showed skin tags and small internal hemorrhoids. No masses, ulcers, diverticula, or strictures were present. Patient tolerated procedure well. HISTOLOGY: A. Duodenal polyp Fragments of gastric type mucosa transitioning into intestinal mucosa with underyling prominent Manisha glands. No dysplasia seen. B. 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 Recommendation: 1. Based on histology results, next colonoscopy in 10 years Imaging reviewed: Current Medications Outpatient Medications Marked as Taking for the 04/23/22 encounter (Office Visit) with Eusebia Jones APRN-CNP Medication Sig Dispense Refill sucralfate (CARAFATE) 1 GM tablet Take 1 Tablet by mouth 4 times daily. For upper abdominal pain. 120 Tablet 0 polyethylene glycol (GOLYTELY) oral solution Take 4,000 mL by mouth once for 1 dose. Use as directed prior to colonoscopy 4000 mL 0 albuterol (PROVENTIL HFA) INHALATION HFA inhaler (VENTOLIN,PROAIR,PROVENTIL) 90mcg Inhale 2 Puffs by mouth. metoprolol (TOPROL-XL) 25 mg XL tablet Take 25 mg by mouth. chlorhexidine (PERIDEX) 0.12 % oral solution Take 15 mL by mouth 2 times daily. 1 Bottle 2 Docusate Sodium (DOC-Q-LACE ORAL) Take by mouth as needed. amLODIPine (NORVASC) 2.5 MG tablet Take 2.5 mg by mouth daily. lisinopril (ZESTRIL) 10 MG tablet Take 10 mg by mouth daily. ammonium lactate (LAC-HYDRIN) 12 % lotion Apply topically 2 times daily. Apply thin layer to affected area. 1 Bottle 3 Sofosbuvir (SOVALDI) 400 MG TABS tablet Take 1 Tablet by mouth daily. 30 Tablet 5 ribavirin (REBETOL) 200 MG capsule Take 2 Capsules by mouth 2 times daily. 150 Capsule 5 topiramate (TOPAMAX) 25 MG tablet Take 25 mg by mouth 2 times daily. trazodone 100 MG tablet Take 100 mg by mouth. GARLIC ORAL Take by mouth. Multiple Vitamin (MULTI-VITAMIN ORAL) Take by mouth daily. aspirin 81 MG tablet Take 81 mg by mouth daily. buPROPion (WELLBUTRIN XL) 300 MG XL tablet Take 300 mg by mouth daily. buPROPion ER (WELLBUTRIN XL) 150 MG XL tablet Take 150 mg by mouth daily. FLUoxetine HCl (PROZAC ORAL) Take 60 mg by mouth daily. furosemide (LASIX) 20 MG tablet Take 20 mg by mouth daily. lisinopril (ZESTRIL) 20 MG tablet Take 20 mg by mouth daily. amLODIPine (NORVASC) 2.5 MG tablet Take 2.5 mg by mouth daily. TYLENOL/CODEINE #3 300-30 MG OR TABS 1 OR 2 TABLETS EVERY 4 TO 6 HOURS NEEDED FOR PAIN 28 0 TRIAMCINOLONE ACETONIDE 0.1 % EX OINT apply bid to area affected 240gm 3 HYDROXYZINE HCL 25 MG OR TABS 1 to 2 tablets qhs 60 2 AMILORIDE-HYDROCHLOROTHIAZIDE 5-50 MG OR TABS 1 TABLET DAILY 30 3 MOTRIN 800 MG OR TABS 1 TABLET 3 TIMES DAILY 90 2 MOTRIN 800 MG OR TABS 1 TABLET every four hours XANAX OR None Entered HYDROCHLOROTHIAZIDE 25 MG OR TABS 1 TABLET DAILY ZOLOFT TABS 100 MG OR 1 TAB PO QD Physical Exam BP 138/81 (BP Location: right arm, BP position: sitting, Cuff Size: adult) Pulse 66 Temp 99.4 F(37.4 C) (Temporal) Resp 16 Ht 5' 5 (1.651 m) Wt 273 lb (123.8 kg) BMI 45.43 kg/m Physical Exam Labs CBC (last 3 years, up to 5 values) WBC RBC Hgb Hct MCV RDW Plt 04/27/20 1437 4.4 4.66 14.2 41.3 89 14.8 106 Basic Metabolic Panel Na K Cl CO2 Gap Glu BUN Cr Ca 04/27/20 1437 141 3.3 105 27 12 97 19 1.05 9.1 LFT's (last 3 years, up to 5 values) T Prot Albumin D Bili T Bili Alk Phos ALT AST 04/27/20 1437 6.4 4.3 0.10 0.9 67 45 40 INR (no units) Date Value 04/27/2020 1.04 09/10/2016 1.13 (H) 04/24/2016 0.99 04/02/2015 1.09 09/17/2011 0.9 04/30/2011 1.0 04/09/2010 1.1 (H) 08/13/2009 1.0 08/18/2008 1.1 (H) Iron Date/Time Value Ref Range Status 04/02/2015 04:41 PM 52 45 - 160 ug/dL Final 08/27/2006 01:20 PM 128 30 - 160 mcg/dL Final TIBC Date/Time Value Ref Range Status 04/02/2015 04:41 PM 364 250 - 410 ug/mL Final 08/27/2006 01:20 PM 444 (H) 250 - 410 mcg/dL Final Ferritin Date/Time Value Ref Range Status 04/02/2015 04:41 PM 70.0 10.3 - 219.0 ng/mL Final 08/27/2006 01:20 PM 308.4 (H) 10.3 - 219.0 ng/mL Final Comment: POST-MENOPAUSAL FEMALE: 10.0 - 280.0 ng/mL Assessment and Plan Micheline FOX is a 61 year old female with PMH of obesity s/p gastric bypass (in the 80), cholecystectomy, hysterectomy, hernia repair with mesh, Hep C s/p treatment and SVR, compensated cirrhosis and KELLY (not compliant with cpap). Being seen in GI clinic today for new GI consult regarding abdominal pain, RUQ with new change in bowel habits (constipation) and esophageal dysphagia. Last EGD and colonoscopy 2014. Anatomy appeared normal so unclear what bariatric surgery she had. Last imagingstable in 2020. 1. Rectal bleeding 2. Constipation, unspecified constipation type 3. Change in bowel habits 4. RUQ pain 5. Esophageal dysphagia 6. Encounter for laboratory testing for severe acute respiratory syndrome coronavirus 2 (SARS-CoV-2) Plan: - proceed with CT AP - diagnostic EGD + colonoscopy with anesthesia - PSE - covid screen prior - start sucralfate 1 gram qid - limit etoh - avoid nsaids - continue bid stool softener A copy of this note was sent to PCP HEATHER Cox [id number] Division of Gastroenterology [facility] documented in this [id number] History of Present illness Narrative* Jaime Carter APRN-CNP - 04/23/2022 11:38 AM EDT Images from the original note were not included. Hepatology Clinic Visit Patient name: Micheline FOX : 1960 Date: 04/23/22 Referring Provider: Self Patient Subjective Chief Complaint: I had the pleasure of speaking with Micheline FOX, for chief complaint of cirrhosis(see problem-based documentation below for details). A copy of today's note will be communicated to referring doctor via the electronic medical record or fax. Referring Provider: Self Patient History of Present Illness: Micheline FOX is a 61 year old female who presents for management of compensated HCV cirrhosis.Referring Provider: Self Patient. Patient has hx of HCV (Finished 24 weeks of Sofosbuvir and Ribavirin, SVR achieved). Patient c/o lower abdominal pain and bloating, pain has been present for a long period of time but reports has recently been getting worse. She has seen multiple providers regarding her pain in the past. She has hx of hernia repair, on CT 09/2020 post op changes from ventral hernia repair w mesh and possible trace fluid w/o evidence of reoccurance she also had bariatric surgery (VBG) 24 years ago. She also reports fatigue, insomnia, not feeling like myself, depression, and some confusion. She does not use drugs or alcohol. There is no history of confusion, day/night cycle reversal, abdominal distention, leg swelling, hematemesis, coffee ground emesis, hematochezia, jaundice, ascites or melena. She does not drink alcohol or use drugs. FH: There is no history of liver cancer, cirrhosis or other liver related disease. No autoimmune. SH: No drugs/alcohol Family History family history includes Heart Disease in her father. Social History Social History Tobacco Use Smoking status: Former Smoker Packs/day: 0.50 Years: 15.00 Pack years: 7.50 Quit date: 07/03/2014 Years since quittin.8 Smokeless tobacco: Never Used Substance Use Topics Alcohol use: Yes Comment: socially Data Review All data reviewed and updated as appropriate Prior additional labs: Component 04/27/2020 Hepatitis C RNA Quant Not Detected HBsAg Non-Reactive Hep B Surface Ab 156.2 Hep B Core Ab Total Nonreactive Hep A Ab Total Reactive (A) Hep A Ab IgM Nonreactive Computed MELD-Na score unavailable. Necessary lab results were not found in the last year. Computed MELD score unavailable. Necessary lab results were not found in the last year. Prior liver imagin09/2020 CT A/P: 1. Redemonstration postoperative changes from prior ventral hernia repair with mesh. Residual scarring with possible trace fluid/seroma may be present. No evidence of hernia recurrence. 2. Hepatic morphology suggestive of cirrhosis. Recommend correlation with liver function tests. 3. Splenomegaly. 4. Status post cholecystectomy, vertical banded gastroplasty, and hysterectomy. 5. Ancillary findings as described above. 10/2015 Fibroscan Findings: Evidence of advanced fibrosis / cirrhosis (F4) 04/2020 US Liver: 1. Cirrhotic liver morphology. Likely superimposed moderate steatosis. No focal lesions to suggest HCC. 2. Status post cholecystectomy without biliary dilatation. 3. Nonvisualization of the pancreas due to overlying bowel gas Shadowing. 2007 Liver bx: Chronic hepatitis C, with mild lobular / mild to moderate portal / mild interface inflammatory activity (Grade 2/4) and cirrhosis (Grade 4/4). No steatosis is noted. Prior endoscopies: 10/2020 EGD: Impression: -Normal esophagus. -A vertical banded gastroplasty was found, characterized by a non-intact appearance. -There is a small fistula connection from the fundus. -Normal second portion of the duodenum. 07/2019 Colonoscopy: -The entire examined colon is normal. -No specimens collected Recommendation: -Repeat colonoscopy in 5 years for surveillance. (hx of polyps) Lab Review: CBC (last 3 years, up to 5 values) WBC RBC Hgb Hct MCV RDW Plt 04/27/20 1437 4.4 4.66 14.2 41.3 89 14.8 106 Basic Metabolic Panel Na K Cl CO2 Gap Glu BUN Cr Ca 04/27/20 1437 141 3.3 105 27 12 97 19 1.05 9.1 LFT's (last 3 years, up to 5 values) T Prot Albumin D Bili T Bili Alk Phos ALT AST 04/27/20 1437 6.4 4.3 0.10 0.9 67 45 40 PT/INR None Alpha Fetoprotein (ng/mL) Date Value 04/30/2011 2.8 AFP (ng/mL) Date Value 09/10/2016 2.2 Past Medical History Past Medical History: Diagnosis Date Degeneration of cervical intervertebral disc Degeneration of lumbar or lumbosacral intervertebral disc Hernia of other specified sites of abdominal cavity without mention of obstruction or gangrene R inguinal hernia Past Surgical History Past Surgical History: Procedure Laterality Date ARTHRODESIS, POSTERIOR TECHNIQUE, ATLAS-AXIS 1999 ARTHRODESIS, POSTERIOR/POSTEROLATERAL TECHNIQUE, SINGLE INTERSPACE, LUMBAR 1999 ARTHRODESIS, POSTERIOR/POSTEROLATERAL TECHNIQUE, SINGLE INTERSPACE, LUMBAR 2000 UNLISTED PROCEDURE, FOOT/TOES 1999 nerve repair VAGINAL HYSTERECTOMY; W/TOTAL/PARTIAL VAGINECTOMY; W/REPAIR, ENTEROCELE 1987 Allergies is allergic to fentanyl, codeine, latex, penicillin [penicillin g potassium], and penicillins. Medications Current Outpatient Medications Medication Sig Dispense Refill albuterol (PROVENTIL HFA) INHALATION HFA inhaler (VENTOLIN,PROAIR,PROVENTIL) 90mcg Inhale 2 Puffs by mouth. metoprolol (TOPROL-XL) 25 mg XL tablet Take 25 mg by mouth. chlorhexidine (PERIDEX) 0.12 % oral solution Take 15 mL by mouth 2 times daily. 1 Bottle 2 Docusate Sodium (DOC-Q-LACE ORAL) Take by mouth as needed. amLODIPine (NORVASC) 2.5 MG tablet Take 2.5 mg by mouth daily. lisinopril (ZESTRIL) 10 MG tablet Take 10 mg by mouth daily. ammonium lactate (LAC-HYDRIN) 12 % lotion Apply topically 2 times daily. Apply thin layer to affected area. 1 Bottle 3 Sofosbuvir (SOVALDI) 400 MG TABS tablet Take 1 Tablet by mouth daily. 30 Tablet 5 ribavirin (REBETOL) 200 MG capsule Take 2 Capsules by mouth 2 times daily. 150 Capsule 5 topiramate (TOPAMAX) 25 MG tablet Take 25 mg by mouth 2 times daily. trazodone 100 MG tablet Take 100 mg by mouth. GARLIC ORAL Take by mouth. Multiple Vitamin (MULTI-VITAMIN ORAL) Take by mouth daily. aspirin 81 MG tablet Take 81 mg by mouth daily. buPROPion (WELLBUTRIN XL) 300 MG XL tablet Take 300 mg by mouth daily. buPROPion ER (WELLBUTRIN XL) 150 MG XL tablet Take 150 mg by mouth daily. FLUoxetine HCl (PROZAC ORAL) Take 60 mg by mouth daily. furosemide (LASIX) 20 MG tablet Take 20 mg by mouth daily. lisinopril (ZESTRIL) 20 MG tablet Take 20 mg by mouth daily. amLODIPine (NORVASC) 2.5 MG tablet Take 2.5 mg by mouth daily. TYLENOL/CODEINE #3 300-30 MG OR TABS 1 OR 2 TABLETS EVERY 4 TO 6 HOURS NEEDED FOR PAIN 28 0 TRIAMCINOLONE ACETONIDE 0.1 % EX OINT apply bid to area affected 240gm 3 HYDROXYZINE HCL 25 MG OR TABS 1 to 2 tablets qhs 60 2 AMILORIDE-HYDROCHLOROTHIAZIDE 5-50 MG OR TABS 1 TABLET DAILY 30 3 MOTRIN 800 MG OR TABS 1 TABLET 3 TIMES DAILY 90 2 MOTRIN 800 MG OR TABS 1 TABLET every four hours XANAX OR None Entered HYDROCHLOROTHIAZIDE 25 MG OR TABS 1 TABLET DAILY ZOLOFT TABS 100 MG OR 1 TAB PO QD No current facility-administered medications for this visit. REVIEW OF SYSTEMS Review of Systems Constitutional: Positive for malaise/fatigue. Negative for weight loss. Eyes: Negative. Respiratory: Negative for shortness of breath. Cardiovascular: Negative for chest pain and leg swelling. Gastrointestinal: Positive for abdominal pain (LUQ) and nausea. Negative for blood in stool, melenaand vomiting. No hematemesis, or confusion Skin: Negative. Endo/Heme/Allergies: Does not bruise/bleed easily. Psychiatric/Behavioral: Positive for depression. Negative for memory loss and substance abuse. The patient has insomnia. All other systems reviewed and are negative. Objective Vital Signs BP 138/81 (BP Location: right arm, BP position: sitting, Cuff Size: adult) Pulse 66 Temp 99.4 F(37.4 C) (Temporal) Resp 16 Ht 5' 5 (1.651 m) Wt 273 lb (123.8 kg) BMI 45.43 kg/m BMI: 45.43 PHYSICAL EXAM Physical Exam Vitals and nursing note reviewed. Constitutional: Appearance: Normal appearance. She is not toxic-appearing or diaphoretic. Eyes: General: No scleral icterus. Conjunctiva/sclera: Conjunctivae normal. Cardiovascular: Rate and Rhythm: Normal rate and regular rhythm. Pulmonary: Effort: Pulmonary effort is normal. No respiratory distress. Breath sounds: No wheezing. Abdominal: General: Bowel sounds are normal. There is no distension. Palpations: Abdomen is soft. There is no mass. Tenderness: There is no abdominal tenderness. Comments: No jaundice, scleral icterus, or asterixis Musculoskeletal: General: Normal range of motion. Skin: General: Skin is warm and dry. Neurological: Mental Status: She is alert and oriented to person, place, and time. She is not disoriented. Psychiatric: Behavior: Behavior is not agitated. Assessment / Plan Orders Placed This Encounter Procedures CT ABDOMEN/PELVIS W/ CONTRAST Complete Blood Count Hepatic Function Panel Basic Metabolic Panel Prothrombin Time & INR Alpha Fetoprotein Tumor Marker Hemoglobin A1C Full Lipid Profile GASTROENTEROLOGY SERVICE REQUEST 1. Hepatic cirrhosis, unspecified hepatic cirrhosis type, unspecified whether ascites present (HCC) 2. Abdominal pain, unspecified abdominal location 3. Abnormal finding of blood chemistry, unspecified 4. Abnormal findings on diagnostic imaging of other parts of digestive tract Follow up: Follow up in about 4 weeks (around 05/21/2022) for telephone visit (telehealth). #Compensated Cirrhosis (Comprehensive Plan) Etiology of cirrhosis: HCV Transplant Candidate: Computed MELD-Na score unavailable. Necessary lab results were not found in the last year. Computed MELD score unavailable. Necessary lab results were not found in the last year. -Update lab work including AFP and MELD Na/CP score accordingly; need for transplant referral -Not referred (suspect low MELD) Ascites: -of no clinical significance Screening for Portal HTN/esohpageal varices: -EGD 10/2020 no EV -Repeat based on clinical course (s/s or decompensation or worsening liver disease) Hepatocellular carcinoma surveillance: -US q 6 months, last imaging 04/2021, overdue -obtain CT given abdominal pain -q 6 mo AFP ordered Hepatic encephalopathy: -Reports some confusion, not convinced HE, given abdominal pain hold off on starting lactulose -Discussed not driving if having confusion -Check ammonia- while non diagnostic, helpful to determine if lactulose should be initiated Hepatitis Vaccination status: -Hepatitis Vaccination status:vaccinate if not immune. -immune HAV/HBV Substance dependence: -Counseled on substance abuse and alcohol use-stressed abstinence, referral if indicated Preventative: Screening colonoscopy: 2024 Influenza Vaccine: annually PNA Vaccine: per PCP Preventive Measures Follow with PCP regarding age related screening measures Preventative: Follow with PCP regarding age related screening measures. Follow up: Follow up in about 4 weeks (around 05/21/2022) for telephone visit (telehealth). Sincerely, Jaime Carter APRN-[facility] Division of Gastroenterology & Hepatology 04/23/22 12:03 PM GI clinic documented in this [id number] History of Present illness Narrative* Yessi Patel RN - 01/31/2022 10:57 AM EDT Reviewed discharge instructions, medications and follow up appointment with patient. IV and tele removed, patient tolerated. Patient denies any other needs or questions. * HEATHER Shin - 01/29/2022 12:50 PM EDT DAILY PROGRESS NOTE Admit Date: 01/27/2022 Date of Evaluation: :50 PM [facility] LOS: 0 days Chief complaint: Chest pain SUBJECTIVE: Patient seen and examined. Chart, medications, labs all reviewed. Patient denies all reports of Headache Blurred Vision, Dizziness, Fever, Chills, Nausea, Vomiting, Diarrhea, or Pain. Vital Signs: Blood pressure 110/68, pulse 61, temperature 97.5 F (36.4 C), temperature source Temporal, resp. rate 20, height 1.651 m (5' 5 ), weight 129.9 kg (286 lb 4.8 oz), SpO2 94 %. O2 Sat (%): 94 % (01/29 124) O2 Device: nasal cannula (01/29 1247) Flow (L/min): 1 (01/29 1247) Intake and Output: Intake/Output Summary (Last 24 hours) at 01/29/2022 1250 Last data filed at 01/29/2022 0830 Gross per 24 hour Intake 260 ml Output -- Net 260 ml Daily Weight: Wt Readings from Last 3 Encounters: 01/29/22 129.9 kg (286 lb 4.8 oz) 09/26/21 132.5 kg (292 lb) 08/29/21 133.8 kg (295 lb) PHYSICAL EXAM: General: Patient resting comfortably. Awake. No acute distress. Cardiovascular: Regular rate and rhythm, without murmurs, rubs, or gallops. Respiratory: Bilateral Upper and Lower Lobes without wheezes, rales, or rhonchi Abdomen: Soft, rounded, non-tender. Bowel sounds present x4 quadrants. No rebound. No organomegaly or masses noted upon deep palpation. Extremities: No edema, clubbing or cyanosis, pulses palpable 2+ distally. Skin: Warm, Dry, Intact. Neuro: Cranial nerves II-XII grossly intact. No focal deficits Diagnostics: CBC Lab Results Component Value Date/Time WBC 3.2 (L) 01/29/2022 05:16 AM WBC 3.3 (L) 01/28/2022 04:44 AM WBC 5.4 01/27/2022 04:10 PM HGB 12.4 01/29/2022 05:16 AM HGB 12.9 01/28/2022 04:44 AM HGB 15.6 01/27/2022 04:10 PM HCT 36.1 01/29/2022 05:16 AM HCT 36.9 01/28/2022 04:44 AM HCT 44.5 01/27/2022 04:10 PM PLATELET 89 (L) 01/29/2022 05:16 AM PLATELET 94 (L) 01/28/2022 04:44 AM PLATELET 129 (L) 01/27/2022 04:10 PM Chemistry Lab Results Component Value Date/Time GLUCOSE 124 (H) 01/29/2022 05:16 AM GLUCOSE 113 (H) 01/28/2022 04:44 AM GLUCOSE 141 (H) 01/27/2022 04:10 PM BUN 20 01/29/2022 05:16 AM BUN 20 01/28/2022 04:44 AM BUN 24 (H) 01/27/2022 04:10 PM CREATSERUM 1.06 (H) 01/29/2022 05:16 AM CREATSERUM 0.93 01/28/2022 04:44 AM CREATSERUM 1.06 (H) 01/27/2022 04:10 PM CREATSERUM 1.08 06/29/2017 03:18 PM SODIUM 139 01/29/2022 05:16 AM SODIUM 140 01/28/2022 04:44 AM SODIUM 136 01/27/2022 04:10 PM POTASSIUM 3.5 01/29/2022 05:16 AM POTASSIUM 3.3 (L) 01/28/2022 11:45 AM POTASSIUM 2.5 (LL) 01/28/2022 04:44 AM CHLORIDE 104 01/29/2022 05:16 AM CHLORIDE 102 01/28/2022 04:44 AM CHLORIDE 98 01/27/2022 04:10 PM CO2 27 01/29/2022 05:16 AM CO2 29 01/28/2022 04:44 AM CO2 25 01/27/2022 04:10 PM ALBUMIN 3.5 01/29/2022 05:16 AM ALBUMIN 4.4 01/16/2021 04:23 PM ALBUMIN 4.6 02/20/2017 01:11 PM ALBUMIN 4.4 01/15/2017 02:15 PM CALCIUM 8.6 01/29/2022 05:16 AM CALCIUM 9.3 02/20/2017 01:11 PM CALCIUM 9.0 01/15/2017 02:15 PM PHOSPHORUS 2.9 07/19/2016 05:00 AM PHOSPHORUS 2.6 07/18/2016 05:00 AM PHOSPHORUS 3.2 07/17/2016 05:00 AM MAGNESIUM 2.0 01/29/2022 05:16 AM MAGNESIUM 2.0 07/19/2016 05:00 AM MAGNESIUM 1.9 07/18/2016 05:00 AM COAG Lab Results Component Value Date/Time PT 13.2 01/29/2022 05:16 AM PT 12.6 07/14/2016 11:58 AM PT Specimen clotted - Result may not be accurate 07/08/2016 02:22 PM INR 0.98 01/29/2022 05:16 AM INR 1.0 07/14/2016 11:58 AM INR Specimen clotted - Result may not be accurate 07/08/2016 02:22 PM PTT 26 07/14/2016 11:58 AM PTT Specimen clotted: Test not performed 07/08/2016 02:22 PM ABG No results found for: HCO3, PCO2, PO2 Other notable labs: Relevant microbiologic cultures: Lab Results Component Value Date RESULTCULT NO GROWTH DAY 2 10/21/2016 RESULTCULT 10/21/2016 (NOTE) If anaerobic isolation is necessary, please send specimen for anaerobic culture. IMPRESSION /PLAN: Principal Problem: Chest pain - Troponins trended negative. Echocardiogram shows EF 70%. Pt with chest pain again thisam. + sob. Diaphoresis. On and off past 2 weeks. Add nitroglycerin. Will consult cardiology and plan nuc stress in am. Calcified coronary artery disease on recent cta chest. Check d dimer. 0.36 Active Problems: Class 3 severe obesity due to excess calories with serious comorbidity and body mass index (BMI) of45.0 to 49.9 in adult - Encourage diet and lifestyle modifications. UTI (urinary tract infection) - rocephin dc CULTURE CRITERIA NOT MET, NO CULTURE PERFORMED. Hypokalemia - replace and monitor. Vitamin D deficiency - replace. Dehydration - Give IVF. Improving. Anxiety Hypertensive urgency - resolved. Continue home medications Leukopenia and Thrombocytopenia: no e/o bleeding. Check fibrinogen. Coag normal. stop Lovenox. Noted hx of chronic hep c. Check panel. Kelly: encouraged cpap. Fu outpt. Principal Problem: Chest pain Active Problems: Class 3 severe obesity due to excess calories with serious comorbidity and body mass index (BMI) of45.0 to 49.9 in adult UTI (urinary tract infection) Hypokalemia Vitamin D deficiency Dehydration Anxiety Hypertensive urgency Code Status Full Code Associated attestation - Av Bertrand MD - 01/29/2022 1:26 PM EDT Patient seen and examined. All testing reviewed. Discussed with CONTRACTS DIRECTOR and agree with A/P. When I rounded symptom free. CP later. Troponin no increase. AF, VS normal. Labs stable. Stress in am. Continue ATB's for UTI. Objective: Blood pressure 110/68, pulse 61, temperature 97.5 F (36.4 C), temperature source Temporal, resp. rate 20, height 1.651 m (5' 5 ), weight 129.9 kg (286 lb 4.8 oz), SpO2 94 %. Results for orders placed or performed during the hospital encounter of 01/27/22 [facility] 1 - NASOPHARYNGEAL Specimen: NASOPHARYNGEAL; Fluid/Swab Result Value Ref Range SARS COV 2 RNA, QL REAL TIME RT PCR NOT DETECTED NOT DETECTED NARRATIVE -1 This test was performed using isothermal KRANTHI and has been approved as Emergency Use Authorization (EUA) for the qualitative detection [id number] nucleic acid. TROPONIN I, HIGH SENSITIVITY Result Value Ref Range TROPONIN I, HIGH SENSITIVITY 10 0 - 12 pg/mL CHEM 7 (LYTES,BUN,CREA,GLUC) Result Value Ref Range GLUCOSE 141 (H) 70 - 100 MG/DL BUN 24 (H) 7 - 20 MG/DL CREATININE SERUM 1.06 (H) 0.52 - 1.04 MG/DL SODIUM 136 136 - 145 MMOL/L POTASSIUM 2.9 (LL) 3.5 - 5.1 MMOL/L CHLORIDE 98 98 - 107 MMOL/L CARBON DIOXIDE (CO2) 25 22 - 30 MMOL/L ESTIMATED GFR, NON AMER 56 ml/min/1.73sq.m ESTIMATED GFR, 68 ml/min/1.73sq.m GFR COMMENT Average GFR for 60-69 years old = 85. CBC, EDIF, PLATELET Result Value Ref Range WBC (WHITE BLOOD COUNT) 5.4 3.6 - 11.0 10*3/uL RBC 4.96 4.0 - 5.4 10*6/uL HEMOGLOBIN (HGB) 15.6 12.0 - 16.0 G/DL HEMATOCRIT (HCT) 44.5 36.0 - 48.0 % MEAN CELL VOLUME 89.7 80.0 - 100.0 FL Mean Cell HGB 31.5 26.0 - 35.0 PG MEAN CELL HGB CONCENTRATION 35.1 27.0 - 37.0 G/DL RBC DISTRIBUTION 13.5 11.5 - 14.5 % PLATELET COUNT 129 (L) 130.0 - 400.0 10*3/uL MEAN PLATELET VOLUME 10.1 7.4 - 11.0 FL DIFFERENTIAL TYPE AUTO DIFF % NEUTROPHILS 55.3 37.0 - 75.0 % LYMPHOCYTE 34.0 20.0 - 55.0 % MONOCYTE % 5.6 0.0 - 10.0 % EOSINOPHIL % 4.4 0.0 - 11.0 % BASOPHIL % 0.7 0.0 - 2.0 % Absolute Neutrophil Count 3.0 1.4 - 6.5 10*3/uL LYMPHOCYTES, ABSOLUTE 1.80 1.2 - 3.4 10*3/uL MONOCYTES, ABSOLUTE 0.3 0.0 - 0.7 10*3/uL ABSOLUTE EOSINOPHIL COUNT 0.20 0.0 - 0.7 10*3/uL ABSOLUTE BASOPHIL COUNT 0.0 0.0 - 0.2 10*3/uL TSH Result Value Ref Range TSH 1.649 0.45 - 5.33 uIU/ML INFLUENZA A AND B, PCR Result Value Ref Range INFLUENZA A NEGATIVE NEGATIVE INFLUENZA B NEGATIVE NEGATIVE TROPONIN I, HIGH SENSITIVITY Result Value Ref Range TROPONIN I, HIGH SENSITIVITY 11 0 - 12 pg/mL CHEM 7 (LYTES,BUN,CREA,GLUC) Result Value Ref Range GLUCOSE 113 (H) 70 - 100 MG/DL BUN 20 7 - 20 MG/DL CREATININE SERUM 0.93 0.52 - 1.04 MG/DL SODIUM 140 136 - 145 MMOL/L POTASSIUM 2.5 (LL) 3.5 - 5.1 MMOL/L CHLORIDE 102 98 - 107 MMOL/L CARBON DIOXIDE (CO2) 29 22 - 30 MMOL/L ESTIMATED GFR, NON AMER 65 ml/min/1.73sq.m ESTIMATED GFR, 79 ml/min/1.73sq.m GFR COMMENT Average GFR for 60-69 years old = 85. CBC, EDIF, PLATELET Result Value Ref Range WBC (WHITE BLOOD COUNT) 3.3 (L) 3.6 - 11.0 10*3/uL RBC 4.06 4.0 - 5.4 10*6/uL HEMOGLOBIN (HGB) 12.9 12.0 - 16.0 G/DL HEMATOCRIT (HCT) 36.9 36.0 - 48.0 % MEAN CELL VOLUME 90.8 80.0 - 100.0 FL Mean Cell HGB 31.7 26.0 - 35.0 PG MEAN CELL HGB CONCENTRATION 35.0 27.0 - 37.0 G/DL RBC DISTRIBUTION 13.7 11.5 - 14.5 % PLATELET COUNT 94 (L) 130.0 - 400.0 10*3/uL MEAN PLATELET VOLUME 10.6 7.4 - 11.0 FL DIFFERENTIAL TYPE AUTO DIFF % NEUTROPHILS 42.6 37.0 - 75.0 % LYMPHOCYTE 42.9 20.0 - 55.0 % MONOCYTE % 7.8 0.0 - 10.0 % EOSINOPHIL % 6.1 0.0 - 11.0 % BASOPHIL % 0.6 0.0 - 2.0 % Absolute Neutrophil Count 1.4 1.4 - 6.5 10*3/uL LYMPHOCYTES, ABSOLUTE 1.40 1.2 - 3.4 10*3/uL MONOCYTES, ABSOLUTE 0.3 0.0 - 0.7 10*3/uL ABSOLUTE EOSINOPHIL COUNT 0.20 0.0 - 0.7 10*3/uL ABSOLUTE BASOPHIL COUNT 0.0 0.0 - 0.2 10*3/uL POTASSIUM Result Value Ref Range POTASSIUM 3.3 (L) 3.5 - 5.1 MMOL/L C REACTIVE PROTEIN Result Value Ref Range C-REACTIVE PROTEIN 8.7 0 - 10.0 MG/L LACTATE, BLOOD Result Value Ref Range LACTATE 1.7 0.7 - 2.0 mmol/L SEDIMENTATION RATE, AUTOMATED Result Value Ref Range SEDIMENTATION RATE AUTOMATED 4 0 - 30 MM/HR C REACTIVE PROTEIN Result Value Ref Range C-REACTIVE PROTEIN <7.9 0 - 10.0 MG/L CBC, EDIF, PLATELET Result Value Ref Range WBC (WHITE BLOOD COUNT) 3.2 (L) 3.6 - 11.0 10*3/uL RBC 3.94 (L) 4.0 - 5.4 10*6/uL HEMOGLOBIN (HGB) 12.4 12.0 - 16.0 G/DL HEMATOCRIT (HCT) 36.1 36.0 - 48.0 % MEAN CELL VOLUME 91.7 80.0 - 100.0 FL Mean Cell HGB 31.6 26.0 - 35.0 PG MEAN CELL HGB CONCENTRATION 34.5 27.0 - 37.0 G/DL RBC DISTRIBUTION 13.5 11.5 - 14.5 % PLATELET COUNT 89 (L) 130.0 - 400.0 10*3/uL MEAN PLATELET VOLUME 10.5 7.4 - 11.0 FL DIFFERENTIAL TYPE AUTO DIFF % NEUTROPHILS 49.8 37.0 - 75.0 % LYMPHOCYTE 35.4 20.0 - 55.0 % MONOCYTE % 7.1 0.0 - 10.0 % EOSINOPHIL % 7.2 0.0 - 11.0 % BASOPHIL % 0.5 0.0 - 2.0 % Absolute Neutrophil Count 1.6 1.4 - 6.5 10*3/uL LYMPHOCYTES, ABSOLUTE 1.10 (L) 1.2 - 3.4 10*3/uL MONOCYTES, ABSOLUTE 0.2 0.0 - 0.7 10*3/uL ABSOLUTE EOSINOPHIL COUNT 0.20 0.0 - 0.7 10*3/uL ABSOLUTE BASOPHIL COUNT 0.0 0.0 - 0.2 10*3/uL COMPREHENSIVE METABOLIC PANEL Result Value Ref Range GLUCOSE 124 (H) 70 - 100 MG/DL BUN 20 7 - 20 MG/DL CREATININE SERUM 1.06 (H) 0.52 - 1.04 MG/DL SODIUM 139 136 - 145 MMOL/L POTASSIUM 3.5 3.5 - 5.1 MMOL/L CHLORIDE 104 98 - 107 MMOL/L CALCIUM 8.6 8.4 - 10.2 MG/DL PROTEIN, TOTAL 5.9 (L) 6.3 - 8.2 GM/DL ALBUMIN 3.5 3.5 - 5.0 G/dl BILIRUBIN, TOTAL 0.3 0.2 - 1.2 MG/DL AST 33 15 - 41 IU/L ALKALINE PHOSPHATASE 51 38 - 126 IU/L CARBON DIOXIDE (CO2) 27 22 - 30 MMOL/L A/G Ratio 1.5 1.3 - 2.2 RATIO ALT 40 14 - 54 IU/L ESTIMATED GFR, NON AMER 56 ml/min/1.73sq.m ESTIMATED GFR, 68 ml/min/1.73sq.m GFR COMMENT Average GFR for 60-69 years old = 85. PROTIME-INR Result Value Ref Range PT 13.2 11.8 - 14.4 SEC INR 0.98 0.85 - 1.10 MAGNESIUM Result Value Ref Range MAGNESIUM 2.0 1.6 - 2.3 MG/DL SEDIMENTATION RATE, AUTOMATED Result Value Ref Range SEDIMENTATION RATE AUTOMATED 6 0 - 30 MM/HR TROPONIN I, HIGH SENSITIVITY Result Value Ref Range TROPONIN I, HIGH SENSITIVITY 4 0 - 12 pg/mL D-DIMER,QUANTITATIVE Result Value Ref Range D-DIMER 0.36 <0.50 mg/L FEU FIBRINOGEN, CLOTTABLE Result Value Ref Range FIBRINOGEN 294.0 171 - 562 mg/dL URINALYSIS, MACRO Result Value Ref Range COLOR, URINE YELLOW YELLOW APPEARANCE, URINE CLEAR CLEAR Specific [place], Urine 1.025 1.010 - 1.025 PH URINE 5.5 5.0 - 7.0 PROTEIN, URINE NEGATIVE NEGATIVE mg/dl GLUCOSE, URINE NEGATIVE NEGATIVE mg/dl KETONES, URINE TRACE (A) NEGATIVE mg/dl BILIRUBIN, URINE NEGATIVE NEGATIVE BLOOD, URINE DIPSTICK NEGATIVE NEGATIVE NITRITES, URINE NEGATIVE NEGATIVE UROBILINOGEN, URINE 0.2 0.2 - 1.0 E.U./dL LEUKOCYTE ESTERASE, URINE SMALL (A) NEGATIVE URINE MICROSCOPIC Result Value Ref Range WBC, URINE NEGATIVE NEGATIVE /HPF RBC, URINE NEGATIVE NEGATIVE /HPF Epithelial Cells UA NONE /HPF Mucus NEGATIVE NEGATIVE BACTERIA, URINE NEGATIVE NEGATIVE CRYSTALS, URINE NONE NONE CASTS, URINE NONE NONE /LPF COMMENT, URINE CULTURE CRITERIA NOT MET, NO CULTURE PERFORMED. HEENT: NC/AT, PERRLA, EOMI, fundi benign, external ears normal, OP normal. Neck: No LAD/thyromegaly. No JVD/bruit. Lungs: Clear to auscultation bilaterally. No wheezes, rales, ronchi. Heart: RRR. No S3/S4. Abdomen: Soft, NT/ND, normal bowel sounds, no HSM, no bruits. Extremities: No clubbing, cyanosis, edema. Normal pulses. Neurologic: CN II-XII intact. Strength/DTR's/sensation symmetric. Cerebellar function normal. Skin: No rash or suspicious lesions. Musculoskeletal: No edema, redness, warmth, deformities. Psychiatric: Alert and oriented. Affect and mood normal. Av Bertrand MD 01/29/2022 * Minda Spencer, PT - 01/28/2022 4:25 PM EDT 01/28/22 1410 Time In/Out Time In 1410 Time Out 1440 Total Visit Time 30 minutes Total Treatment Time (skilled, billable minutes) 30 minutes PT Therapy Completed Yes Initial Evaluation/Screen Completed? yes General Information RN Approved Intervention as tolerated Diagnosis chest pain Surgical Procedure none Past Medical History Past Medical History: Diagnosis Date Adverse drug reaction Possible drug reaction to Sovaldi and Ribavirin but not confirmed. Anxiety Chronic hepatitis C without mention of hepatic coma Depression Hernia of abdominal cavity 2011 Hypertension Kidney infection Obesity Shingles Past Surgical History Past Surgical History: Procedure Laterality Date EGD DIAGNOSTIC N/A 11/13/2020 Laterality: N/A; Surgeon: Isael Hall MD; Location: [facility] ENDOSCOPY REPAIR HERNIA VENTRAL OPEN W/ MESH N/A 07/16/2016 Laterality: N/A; Surgeon: Jake Hurtado MD; Location: [facility] MAIN OR HEART CATHETERIZATION Apr 2015 GASTRIC [place] 1996 HYSTERECTOMY 1987 BACK SURGERY HARDWARE L 4-5 CERVICAL LAMINECTOMY C 4-5 HERNIA REPAIR x4 Existing Precautions/Restrictions no known precautions/restrictions Home Setting Residence House Lives With alone First floor setup bedroom Number of stairs to enter home 4 Number of stairs in home 12 (to the second floor) Stair Railings at Home entry - with rail;interior - with rail Previous Level of Function Ambulation Skills independent Assistive Device none used Level of Ambulation community General Pain Documentation (Adult, OB, Peds) Presence of Pain complains of pain/discomfort Pain Location headache Pain Management Interventions activity minimized Select Pain Scale (8/10) Cognitive Status Examination Orientation Status (Cognition) oriented x 4 Level of Consciousness alert Able to Follow Commands (Communication) WFL Personal Safety and Judgment intact Range of Motion (ROM) Range of Motion Examination bilateral lower extremity ROM was WFL Manual Muscle Testing (MMT) Manual Muscle Testing Results deficits as listed below (B LE 3+/5) Bed Mobility Skill: Supine to Sit, Rehab Eval Level of Geneva: Supine/Sit independent Transfer Skill: Sit To Stand, Rehab Eval [place] (Sit-Stand Transfers) independent Gait Skills, PT Eval Level of [place]: Gait independent Gait Distance 100 feet Gait Analysis, PT Eval Gait Pattern Used swing-through gait Gait Deviations Identified (Gait) decreased gideon;decreased gait speed Impairments Contributing To Gait Deviations pain Balance Additional Documentation (Seated/Standing: Good) Sensory Examination Sensory Examination WFL Plan of Care Interventions Additional Comments Pt performing mobility tasks independently however did have one LOB while ambulating but was able to correct with stepping strategy. Gait distance limited due to headache and decreased endurance. Discussed with pt her deficits and the purpose of PT interventions. Pt declined further PT services while hospitalized. Assessment Assessment Narrative Pt is a 61 year old female admitted due to chest pain. Pt is performing mobility tasks at her baseline. Pt does demonstrating decreased endurance, LE strength and impaired balance but declines further PT services. Discharge Recommendations Recommend pt return home without additional PT services. Clinical Impression Co-evaluation/co-treatment performed? No simultaneous skilled care performed Criteria for Skilled Therapeutic Interventions Met (PT Eval) patient/family refuse skilled intervention at this time PT Therapies Still to Complete 2 Continue care plan no Today's Treatment Included PT evaluation and patient education Therapist Recommendations At Discharge Recommendations PT Services not recommended at Discharge Plan Plan for next session PT evaluation only * Slime Stewart RD - 01/28/2022 2:05 PM EDT INITIAL INPATIENT DIETETIC ASSESSMENT Ms. Micheline Fox is a 61 y.o. female admitted to [facility] for: 1. Hypokalemia 2. Chest pain, unspecified type Nutrition Assessment Subjective Assessment/comments: Pt presents to ER with c/o CP, tachycardia, palpitations, high blood pressure, shakiness and weakness. Pt also c/o nausea, headache, dizziness, suspects dehydration and reports that she hasn't been eating well. Found with hypokalemia. 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 Noted to have started taking Topiramate mid-February 2021. Pt tells RD that she has been tryingto lose weight however recent weight loss (clinically insignificant) has been unintentional. Additionally pt reports taking diuretics medications. Current diet is heart healthy with no documented meal intakes in RN flowsheets at this time. Pt would benefit from nutrition supplement between meals tohelp meet nutrient needs. Anthropometrics: Ht Readings from Last 1 Encounters: 01/27/22 1.651 m (5' 5 ) Wt Readings from Last 10 Encounters: 01/27/22 126.1 kg (278 lb) 09/26/21 132.5 kg (292 lb) 08/29/21 133.8 kg (295 lb) 06/07/21 (!) 140.2 kg (309 lb) 04/03/21 (!) 142 kg (313 lb) 02/20/21 (!) 145.2 kg (320 lb) 01/16/21 (!) 145.7 kg (321 lb 3.2 oz) 10/23/20 (!) 142 kg (313 lb) 09/25/20 (!) 145 kg (319 lb 11.2 oz) 09/18/20 (!) 140.6 kg (310 lb) [place] body weight: 57 kg (125 lb 10.6 oz) Adjusted ideal body weight: 84.6 kg (186 lb 9.6 oz) Body mass index is 46.26 kg/m . Recent weight loss: Yes Weight loss: 43 lbs % loss: 13.4% Time frame: 1 year Clinically significant per ASPEN: No Nutrition Risk Screening (MST) Has patient lost weight recently without trying?: 0- no Have you been eating poorly because of decreased appetite?: 0- No Malnutrition Screening Tool Score: 0 Nutrition: 3-->adequate EER: Calories: 1700 kcal (20 kcal/kg AdjBW) Protein: 63-86 gm (1.1-1.5 gm/kg IBW) Fluids: 1 mL/kcal or per provider choice Nutrition Intake Evaluation Current Diet Orders Procedures DIET HEART HEALTHY - 4 GM SODIUM Standing Status: Standing Number of Occurrences: 1 Allergies Allergen Reactions Fentanyl Itching Codeine Latex Hives and Rash Penicillins Labs: Lab Results Component Value Date GLUCOSE 113 (H) 01/28/2022 GLUCOSE 141 (H) 01/27/2022 GLUCOSE 96 01/16/2021 HGBA1C 4.5 (L) 02/20/2017 SODIUM 140 01/28/2022 POTASSIUM 3.3 (L) 01/28/2022 MAGNESIUM 2.0 07/19/2016 PHOSPHORUS 2.9 07/19/2016 CALCIUM 9.3 02/20/2017 ALBUMIN 4.4 01/16/2021 TP 6.8 01/16/2021 BUN 20 01/28/2022 CREATSERUM 0.93 01/28/2022 AST 33 01/16/2021 ALT 45 01/16/2021 CRP 8.7 01/28/2022 HGB 12.9 01/28/2022 HCT 36.9 01/28/2022 IRON 65 02/20/2017 WBC 3.3 (L) 01/28/2022 RBC 4.06 01/28/2022 B12 320 02/20/2017 RFMM02QLT 18.3 (L) 01/16/2021 FOLATE 13.07 02/20/2017 PMH & PSH: Past Medical History: Diagnosis Date Adverse drug reaction Possible drug reaction to Sovaldi and Ribavirin but not confirmed. Anxiety Chronic hepatitis C without mention of hepatic coma Depression Hernia of abdominal cavity 2011 Hypertension Kidney infection Obesity Shingles Past Surgical History: Procedure Laterality Date EGD DIAGNOSTIC N/A 11/13/2020 Laterality: N/A; Surgeon: Isael Hall MD; Location: [facility] ENDOSCOPY REPAIR HERNIA VENTRAL OPEN W/ MESH N/A 07/16/2016 Laterality: N/A; Surgeon: Jake Hurtado MD; Location: [facility] MAIN OR HEART CATHETERIZATION Apr 2015 GASTRIC BYPASS 1996 HYSTERECTOMY 1987 BACK SURGERY HARDWARE L 4-5 CERVICAL LAMINECTOMY C 4-5 HERNIA REPAIR x4 Nutrition Diagnosis NI-2.1 Inadequate oral intake related to current medical status and increased protein needs for RYGB as evidenced by pt report. Interventions Order half bottle (5.5fl oz) Chocolate Ensure Max Protein BID at 10am and 3pm Pt requested to stay on a heart healthy diet rather than switch to a bariatric regular diet - states that she is aware of what she can and can't tolerate Encourage PO intake as tolerated & medically able Daily weights @ 4 AM by nursing I/O documentation of all PO intake: all fluids, meals/snacks, and ONS if ordered Monitoring and Evaluation Monitor patient weight, labs, and PO intake RADHA Alcantar Registered Dietitian, Licensed Dietitian 01/28/22 * Kay Yadav RN - 01/28/2022 8:56 AM EDT 01/28/22 0853 Information Source Information Source patient Information Source Name Micheline Fox Contact Information Senior Private Client Advisor/SW Added to Care Team Yes This Import Dispatcher is Primary Senior Private Client Advisor/SW Yes Senior Private Client Advisor Name Kay Yadav RN Case Manager's Social Work Contact Name Erma Lopez Living Environment Lives With alone Living Arrangements house Primary Care Provided By self Support System Immediate family Employment/Financial Employed? Yes Employment/Financial Concerns no Source Of Income pension/fci Financial Concerns none Food Insecurity In the past 12 months, were you worried about food running out before you are able to get more? No In the past 12 months, has food run out, and you didn't have money to get more? No Cognitive/Perceptual/Developmental Current Mental Status/Cognitive Functioning no deficits noted Recent Changes in Mental Status/Cognitive Functioning no changes Developmental Stage Stage 7 (35-65 years/Middle Adulthood) Generativity vs. Stagnation Abuse Screen Do You Feel Unsafe at Home, Work or School? no Has Anyone Ever Threatened to Hurt You, Your Children or Your Pets? no Does Anyone Try to Keep You From Having Contact With Others or Doing Things Outside Your Home? no Emotional/Psychological Affect no deficits noted Mood congruent to situation Verbal Skills no deficits noted Current Interpersonal Conduct/Behavior appropriate to situation Mental Health Conditions/Symptoms anxiety disorder;depression Thought Process Alterations no deficits noted Previous Mental Health Treatment none Referral Information Referral Source admission list;physician Assessment completed with patient. Patient states lives at home alone in one story home. Patient states mother lives close and is primary support person. Patient states history of anxiety and depression. Independent at home. No DME or home health care services. Patient expects to return home to prior level of independence. Social service/case management to follow for any discharge needs. [facility]* Nursing Notes - Kerrie Pacheco RN - 01/31/2022 4:34 AM EDT Patient unchanged from previous assessment. Call light and personal items within reach. Patient denies any further needs at this time. [facility]2022 Miscellaneous Notes* Nursing Notes - Kerrie Pacheco RN - 01/31/2022 4:34 AM EDT Patient unchanged from previous assessment. Call light and personal items within reach. Patient denies any further needs at this time. * Nursing Notes - Kerrie Pacheco RN - 01/31/2022 12:00 AM EDT Patient called requesting her sleeping pills . I had discussed with her at 2053 about holding her sleep aids so that she can discharge home in the morning and be able to drive herself. Patient did not dispute my recommendation. Then at approx. 0000 she called wanting to know why I was withholding her medication. I explained to her that I gave her blood pressure meds and her stool softner but held her trazadone and ambien as we discussed previously. Patient denies. I offered to give her melatonin and benadryl to assist her to sleep with something more mild but she declined. Patient stated shewants her medications and she will be fine to discharge home as she takes these medications all thetime. Patient assessment unchanged from previous assessment. Call light and personal items within reach. Patient denies any further needs at this time. * Nursing Notes - Eva Hamilton RN - 01/30/2022 5:18 PM EDT Pt elects to stay the night at this time. HAZARDOUS WASTE TECHNICIAN notified. Orders for ct head and toxicology placed. * Nursing Notes - Eva Hamilton RN - 01/30/2022 5:07 PM EDT Notified Foreign HAZARDOUS WASTE TECHNICIAN of patients continued drowsiness and difficulty walking. Patient cannot walk down hallway without using wall railings for support. Patient states that she is absolutely fine to driveand is adamant about doing so. HAZARDOUS WASTE TECHNICIAN states to allow patient to stay overnight unless patient opts to leave AMA. * Nursing Notes - Eva Hamilton RN - 01/30/2022 3:58 PM EDT Patient is extremely drowsy, sways while walking, and does not appear capable of providing her own transportation at this time. States that she does not have anyone else she can call. Attempted to notify HAZARDOUS WASTE TECHNICIAN. * Nursing Notes - Eva Hamilton RN - 01/30/2022 3:41 PM EDT Physical assessment unchanged since previous assessment from this RN with exceptions noted in flowsheets. Patient denies discomfort/pain. Patient is resting in bed with call light in reach and wheelslocked. Safety is maintained. * Nursing Notes - Eva Hamilton RN - 01/30/2022 3:32 PM EDT Pt states she wants to walk the avery a bit before departing. Patient up walking hallway with minimal assistance. * Nursing Notes - Eva Hamilton RN - 01/30/2022 2:18 PM EDT Discharge instructions reviewed with patient. Patient states that she is her own ride home, and that she would prefer to wait a little bit so that she can wake up before driving herself home. Patientstates that she is comfortable with and able to provide her own transportation. Patient verbalizes understanding of instructions. * Nursing Notes - Eva Hamilton RN - 01/30/2022 12:09 PM EDT Physical assessment unchanged since previous assessment from this RN with exceptions noted in flowsheets. Patient denies discomfort/konrad. Patient is resting in bed with call light in reach and wheels locked. Safety is maintained. * Nursing Notes - Kerrie Pacheco RN - 01/30/2022 4:17 AM EDT Patient assessment unchanged from previous assessment. Call light and personal items within reach. Patient denies any further needs at this time. * Nursing Notes - Kerrie Pacheco RN - 01/30/2022 12:14 AM EDT Patient assessment unchanged from previous assessment. Call light and personal items within reach. Patient denies any further needs at this time. * Nursing Notes - Vaishnavi Ybarra RN - 01/29/2022 6:39 PM EDT Chest pain, 02/28, patient states it is intermittent, and worsens with movement. States pain is sharp and heavy. . EKG ordered. Isreal HAMMER aware . Dr Alexander was notified by automobile rental clerk earlier this am. * Plan of Care - Vaishnavi Ybarra RN - 01/29/2022 4:41 PM EDT Problem: Patient Care Overview Goal: Plan of Care Review Outcome: Ongoing Goal: Individualization & Mutuality Outcome: Ongoing Goal: Discharge Needs Assessment Outcome: Ongoing Goal: Interdisciplinary Rounds/Family Conf Outcome: Ongoing Problem: Skin Integrity Impairment, Risk/Actual (Adult) Goal: Identify Related Risk Factors and Signs and Symptoms Description: Related risk factors and signs and symptoms are identified upon initiation of Human Response Clinical Practice Guideline (CPG) Outcome: Ongoing Goal: Skin Integrity/Wound Healing Description: Patient will demonstrate the desired outcomes by discharge/transition of care. Outcome: Ongoing Problem: Pain, Acute (Adult) Goal: Identify Related Risk Factors and Signs and Symptoms Description: Related risk factors and signs and symptoms are identified upon initiation of Human Response Clinical Practice Guideline (CPG) Outcome: Ongoing Goal: Acceptable Pain Control/Comfort Level Description: Patient will demonstrate the desired outcomes by discharge/transition of care. Outcome: Ongoing * Nursing Notes - Vaishnavi Ybarra RN - 01/29/2022 12:00 PM EDT Assessment completed. Patient states chest pain is less and she is able to rest. Call light within reach. * Nursing Notes - Vaishnavi Ybarra RN - 01/29/2022 9:04 AM EDT While doing assessment of patient, she was drowsy and hard to keep awake to obtain answers. Patientstates she has 6/10 chest pain, center that radiates to left shoulder and is constant. Patient did not open her eyes when describing pain. When trying to further evaluate pain, patient continues to keep eyes closed and has to be reawakened to answer questions. Patient states she sleeps until 11-12 keenan and goes to sleep at midnight to 1 am. Patient opened eyes to take pills but closed her eyes immediately after and went back to sleep. Isreal HAMMER aware and orders received. * Nursing Notes - An Mendoza RN - 01/29/2022 3:42 AM EDT Assessment unchanged, resting quietly. O2 Sats in the 90's with oxygen on at 2 L/ NS. Side rails upx 2, call light in reach. * Nursing Notes - An Mendoza RN - 01/29/2022 2:00 AM EDT Pt sleeping soundly, oxygen saturation at 83-87 on room air. Oxygen applied at 2 L/NC with saturation improving to 92%. * Nursing Notes - An Mendoza RN - 01/29/2022 12:15 AM EDT Transferred from second floor to [facility]. Denies complaints * Nursing Notes - Melvin Dodd RN - 01/28/2022 4:56 PM EDT No changes from prior assessment * Nursing Notes - Melvin Dodd RN - 01/28/2022 12:38 PM EDT No changes from prior assessment * Nursing Notes - Jessenia Lawson RN - 01/28/2022 4:30 AM EDT Patient assessment unchanged from previous assessment. Patient sleeping at this time, call light inreach. * Nursing Notes - Jessenia Lawson RN - 01/28/2022 2:20 AM EDT Patient SPO2 had decreased to 88% on room air. Per patient she does have sleep apnea. Patient stated she will not wear a CPAP however did accept nasal cannula. SPO2 has increased. Patient back to sleep at this time. Will continue to monitor. * Nursing Notes - Jessenia Lawson RN - 01/28/2022 12:20 AM EDT Patient assessment unchanged from previous assessment. Patient is now sleeping comfortably with no signs or indicators of pain present. Call light in reach. * Nursing Notes - Jessenia Lawson RN - 01/27/2022 11:[address] Bertrand to notify of patient headache, unrelieved by nursing intervention and PRN Tylenol. New order for Toradol PRN Q8H. Also advised of patient request to take her home bedtime medications. Per Dr Bertrand new order to give home bedtime medications. Medications and dosages reviewed and ok'd. See MAR. documented in this encounterUniversity [facility]* Nursing Notes - Kerrie Pacheco RN - 01/31/2022 12:00 AM EDT Patient called requesting her sleeping pills . I had discussed with her at 2053 about holding her sleep aids so that she can discharge home in the morning and be able to drive herself. Patient did not dispute my recommendation. Then at approx. 0000 she called wanting to know why I was withholding her medication. I explained to her that I gave her blood pressure meds and her stool softner but held her trazadone and ambien as we discussed previously. Patient denies. I offered to give her melatonin and benadryl to assist her to sleep with something more mild but she declined. Patient stated shewants her medications and she will be fine to discharge home as she takes these medications all thetime. Patient assessment unchanged from previous assessment. Call light and personal items within reach. Patient denies any further needs at this time. [facility]05-12-2022 Note* Nursing Notes - Eva Hamilton RN - 01/30/2022 5:18 PM EDT Pt elects to stay the night at this time. HAZARDOUS WASTE TECHNICIAN notified. Orders for ct head and toxicology placed. T [facility]05-12-2022 Note* Nursing Notes - Eva Hamilton RN - 01/30/2022 5:07 PM EDT Notified Foreign HAZARDOUS WASTE TECHNICIAN of patients continued drowsiness and difficulty walking. Patient cannot walk down hallway without using wall railings for support. Patient states that she is absolutely fine to driveand is adamant about doing so. HAZARDOUS WASTE TECHNICIAN states to allow patient to stay overnight unless patient opts to leave AMA. [facility]05-12-2022 Note* Nursing Notes - Eva Hamilton RN - 01/30/2022 3:58 PM EDT Patient is extremely drowsy, sways while walking, and does not appear capable of providing her own transportation at this time. States that she does not have anyone else she can call. Attempted to notify HAZARDOUS WASTE TECHNICIAN. [facility]05-12-20[facility] Note* Nursing Notes - Eva Hamilton RN - 01/30/2022 3:41 PM EDT Physical assessment unchanged since previous assessment from this RN with exceptions noted in flowsheets. Patient denies discomfort/pain. Patient is resting in bed with call light in reach and wheelslocked. Safety is maintained. [facility]05-12-2022 Note* Nursing Notes - Eva Hamilton RN - 01/30/2022 3:32 PM EDT Pt states she wants to walk the avery a bit before departing. Patient up walking hallway with minimal assistance. [facility] Note* Nursing Notes - Eva Hamilton RN - 01/30/2022 2:18 PM EDT Discharge instructions reviewed with patient. Patient states that she is her own ride home, and that she would prefer to wait a little bit so that she can wake up before driving herself home. Patientstates that she is comfortable with and able to provide her own transportation. Patient verbalizes understanding of instructions. [facility]05-12-2022 Note* Nursing Notes - Eva Hamilton RN - 01/30/2022 12:09 PM EDT Physical assessment unchanged since previous assessment from this RN with exceptions noted in flowsheets. Patient denies discomfort/konrad. Patient is resting in bed with call light in reach and wheels locked. Safety is maintained. [facility]05-12-2022 Hospital course Narrative* Flip Campos APRN- ORTIZ - 01/30/2022 11:19 AM EDT Images from the original note were not included. Discharge Summary Summary Time: 01/30/22 11:19 AM Name: Micheline Fox Age: 61 y.o. Birthday: 1960 Admit Date: 01/27/2022 3:57 PM Discharge Date: 01/30/2022 Brief Summary of Hospital Course: Patient is a 61 y.o. female presents to [facility] for evaluation of not feeling well. Symptomsstarted yesterday. She states she has had palpitations, felt shakey and her blood pressure has beenrunning high. She has generalized weakness. She has nausea and she thinks she is dehydrated. She has a 9/10 diffuse headache. She states that when it gets this bad she has to get a shot of a strong narcotic. She has chest pain. She states everything hurts. She states her blood pressure has been out of control. She has been running over 200 systolic at home per patient. She states she has seen her family doctor for it and they can't get it under control. She has nausea and states she hasn't been eating well. She thinks she is dehydrated. She has dizziness and a headache. No calf pain or swelling. In the emergency department basic laboratory values were obtained. Patient was found to have a urinary tract infection. Troponins are negative. Echocardiogram shows an EF of 70%. Patient did have hypokalemia which has improved. Patient does have urinary tract infection was started on Rocephin this was ruled out and the patient was asymptomatic. She was admitted to the hospital for ACS rule out. Troponins trended negative. Patient had a nondiagnostic nuc med stress test. Dr. Alexander, cardiology evaluated the patient and did not feel that the patient would need LHC as she had a recent LHC in 2019. She will follow-up outpatient with Cardiology, Dr. Blake and her PCP. Consultants: Cardiology Discharge Diagnosis: Principal Problem: Chest pain Active Problems: Class 3 severe obesity due to excess calories with serious comorbidity and body mass index (BMI) of45.0 to 49.9 in adult UTI (urinary tract infection) Hypokalemia Vitamin D deficiency Dehydration Anxiety Hypertensive urgency KELLY (obstructive sleep apnea) Leukopenia Thrombocytopenia Discharge Vital Signs: Blood pressure 133/64, pulse 73, temperature 98.6 F (37 C), temperature source Oral, resp. rate 18, height 1.651 m (5' 5 ), weight 131.1 kg (289 lb 1.6 oz), SpO2 93 %. O2 Sat (%): 93 % (01/30 1004) O2 Device: nasal cannula (01/30 1004) Flow (L/min): 2 (01/30 1004) Oxygen Concentration (%): 94 (01/30 0700) Discharge Labs: Lab Results Component Value Date WBC 3.6 01/30/2022 HGB 11.9 (L) 01/30/2022 HCT 34.5 (L) 01/30/2022 PLATELET 89 (L) 01/30/2022 MCV 92.0 01/30/2022 @LASTMAGNESIUM(1D,2)@ Lab Results Component Value Date INR 0.88 01/30/2022 INR 0.98 01/29/2022 INR 1.0 07/14/2016 PT 12.2 01/30/2022 PT 13.2 01/29/2022 PT 12.6 07/14/2016 Lab Results Component Value Date CREATSERUM 1.05 (H) 01/30/2022 BUN 22 (H) 01/30/2022 SODIUM 141 01/30/2022 POTASSIUM 3.6 01/30/2022 CHLORIDE 109 (H) 01/30/2022 CO2 27 01/30/2022 Lab Results Component Value Date SPGRVTYUR 1.025 01/27/2022 GLUCOSEURINE NEGATIVE 01/27/2022 BILIRUBINURI NEGATIVE 01/27/2022 KETONESURINE TRACE (A) 01/27/2022 NITRITESURIN NEGATIVE 01/27/2022 LEUKOCESTUR SMALL (A) 01/27/2022 WBCURINE NEGATIVE 01/27/2022 RBCURINE NEGATIVE 01/27/2022 BACTERIAURIN NEGATIVE 01/27/2022 PHYSICAL EXAM: General: Patient resting comfortably. Awake. No acute distress. Cardiovascular: Regular rate and rhythm, without murmurs, rubs, or gallops. Respiratory: Bilateral Upper and Lower Lobes without wheezes, rales, or rhonchi Abdomen: Soft, rounded, non-tender. Bowel sounds present x4 quadrants. No rebound. No organomegaly or masses noted upon deep palpation. Extremities: No edema, clubbing or cyanosis, pulses palpable 2+ distally. Skin: Warm, Dry, Intact. Discharge Medications: Medication List for when you go home CHANGE how you take these medications losartan 50 MG TABS Take 50 mg by mouth daily. Commonly known as: PATTI What changed: Another medication with the same name was removed. Continue taking this medication, and follow the directions you see here. CONTINUE taking these medications albuterol 108 (90 Base) MCG/ACT AERS inhaler Inhale 1 puff every 6 hours as needed. ALPRAZolam 1 MG TABS Take by mouth daily. Commonly known as: XANAX Brexpiprazole 2 MG TABS Take by mouth daily. bumetanide 1 MG TABS Take 1 mg by mouth daily. Commonly known as: BUMEX Desvenlafaxine ER 100 MG tab XL Take by mouth daily. Desvenlafaxine Succinate 100 MG tab XL * docusate 100 MG CAPS Take 200 mg by mouth Twice daily. * docusate 100 MG CAPS take 1 capsule by mouth 2 times daily. * DULoxetine [address] capsule DR Take 60 mg by mouth daily. Commonly known as: CYMBALTA * DULoxetine [address] capsule DR Take 60 mg by mouth. Commonly known as: CYMBALTA eszopiclone 2 MG TABS Take by mouth at bedtime. Commonly known as: LUNESTA hydrALAZINE 25 MG TABS Take 25 mg by mouth 3 times daily. Commonly known as: APRESOLINE ipratropium-albuterol 0.5-2.5 (3) MG/3ML nebulizer solution Take 3 mL by nebulization every 6 hours as needed. Commonly known as: DUONEB metOLazone 2.5 MG TABS Take 2.5 mg by mouth once a week. Tuesdays Commonly known as: ZAROXOLYN metoprolol 25 MG tab regular release Take 25 mg by mouth 2 times daily. Commonly known as: LOPRESSOR ondansetron 4 MG ODT tablet Take 4 mg by mouth Every 4 hours as needed. Commonly known as: ZOFRAN-ODT potassium chloride 20 MEQ tab ER tablet Take by mouth daily. Is unsure of dose Commonly known as: K-DUR tiZANidine 4 MG TABS take 1 tablet by mouth three times a day if needed Commonly known as: ZANAFLEX * topiramate 25 MG TABS Take 50 mg by mouth. Commonly known as: TOPAMAX * topiramate 25 MG TABS Take 50 mg every evening Commonly known as: TOPAMAX For diagnoses: Class 3 severe obesity with body mass index (BMI) of 45.0 to 49.9 in adult, unspecified obesity type, unspecified whether serious comorbidity present, Medication management, History ofgastric bypass, Encounter for weight loss counseling trazodone 300 MG TABS Take 300 mg by mouth At bedtime. Commonly known as: DESYREL * The same medication is listed twice. Please discuss with your provider. Discharge Activity: Resume pre-hospital activities as tolerated. Discharge Diet: Resume pre-hospital diet as tolerated. Discharge Follow-up: Leticia Sylvester MD [address] [facility] [id number] Follow up in 1 week(s) Lawrence Blake MD [address] [facility] [id number] Follow up in 1 week(s) Discharge Disposition: Patient will be discharged in stable condition. Discharge Time: Including assessment, planning, and medication reconciliation was greater than 35 min. Flip Campos EXAMINATION SCORER-CONTRACTS DIRECTOR completing Discharge Summary for Dr. Bertrand Please note portions of this note utilized [employer] dictation software, please excuse any typographical or grammatical errors Associated attestation - Av Bertrand MD - 01/30/2022 12:47 PM EDT Patient seen and examined. All testing reviewed. Discussed with CONTRACTS DIRECTOR and agree with A/P. No pain overnight. AF, VS normal. Labs stable. Stress non-diagnostic. Cardio cleared for discharge with outpt follow up. Objective: Blood pressure 126/67, pulse 78, temperature 98.4 F (36.9 C), temperature source Oral, resp. rate 19, height 1.651 m (5' 5 ), weight 131.1 kg (289 lb 1.6 oz), SpO2 95 %. Results for orders placed or performed during the hospital encounter of 01/27/22 [facility] - NASOPHARYNGEAL Specimen: NASOPHARYNGEAL; Fluid/Swab Result Value Ref Range SARS COV 2 RNA, QL REAL TIME RT PCR NOT DETECTED NOT DETECTED NARRATIVE -1 This test was performed using isothermal KRANTHI and has been approved as Emergency Use Authorization (EUA) for the qualitative detection [id number] nucleic acid. TROPONIN I, HIGH SENSITIVITY Result Value Ref Range TROPONIN I, HIGH SENSITIVITY 10 0 - 12 pg/mL CHEM 7 (LYTES,BUN,CREA,GLUC) Result Value Ref Range GLUCOSE 141 (H) 70 - 100 MG/DL BUN 24 (H) 7 - 20 MG/DL CREATININE SERUM 1.06 (H) 0.52 - 1.04 MG/DL SODIUM 136 136 - 145 MMOL/L POTASSIUM 2.9 (LL) 3.5 - 5.1 MMOL/L CHLORIDE 98 98 - 107 MMOL/L CARBON DIOXIDE (CO2) 25 22 - 30 MMOL/L ESTIMATED GFR, NON AMER 56 ml/min/1.73sq.m ESTIMATED GFR, 68 ml/min/1.73sq.m GFR COMMENT Average GFR for 60-69 years old = 85. CBC, EDIF, PLATELET Result Value Ref Range WBC (WHITE BLOOD COUNT) 5.4 3.6 - 11.0 10*3/uL RBC 4.96 4.0 - 5.4 10*6/uL HEMOGLOBIN (HGB) 15.6 12.0 - 16.0 G/DL HEMATOCRIT (HCT) 44.5 36.0 - 48.0 % MEAN CELL VOLUME 89.7 80.0 - 100.0 FL Mean Cell HGB 31.5 26.0 - 35.0 PG MEAN CELL HGB CONCENTRATION 35.1 27.0 - 37.0 G/DL RBC DISTRIBUTION 13.5 11.5 - 14.5 % PLATELET COUNT 129 (L) 130.0 - 400.0 10*3/uL MEAN PLATELET VOLUME 10.1 7.4 - 11.0 FL DIFFERENTIAL TYPE AUTO DIFF % NEUTROPHILS 55.3 37.0 - 75.0 % LYMPHOCYTE 34.0 20.0 - 55.0 % MONOCYTE % 5.6 0.0 - 10.0 % EOSINOPHIL % 4.4 0.0 - 11.0 % BASOPHIL % 0.7 0.0 - 2.0 % Absolute Neutrophil Count 3.0 1.4 - 6.5 10*3/uL LYMPHOCYTES, ABSOLUTE 1.80 1.2 - 3.4 10*3/uL MONOCYTES, ABSOLUTE 0.3 0.0 - 0.7 10*3/uL ABSOLUTE EOSINOPHIL COUNT 0.20 0.0 - 0.7 10*3/uL ABSOLUTE BASOPHIL COUNT 0.0 0.0 - 0.2 10*3/uL TSH Result Value Ref Range TSH 1.649 0.45 - 5.33 uIU/ML INFLUENZA A AND B, PCR Result Value Ref Range INFLUENZA A NEGATIVE NEGATIVE INFLUENZA B NEGATIVE NEGATIVE TROPONIN I, HIGH SENSITIVITY Result Value Ref Range TROPONIN I, HIGH SENSITIVITY 11 0 - 12 pg/mL CHEM 7 (LYTES,BUN,CREA,GLUC) Result Value Ref Range GLUCOSE 113 (H) 70 - 100 MG/DL BUN 20 7 - 20 MG/DL CREATININE SERUM 0.93 0.52 - 1.04 MG/DL SODIUM 140 136 - 145 MMOL/L POTASSIUM 2.5 (LL) 3.5 - 5.1 MMOL/L CHLORIDE 102 98 - 107 MMOL/L CARBON DIOXIDE (CO2) 29 22 - 30 MMOL/L ESTIMATED GFR, NON AMER 65 ml/min/1.73sq.m ESTIMATED GFR, 79 ml/min/1.73sq.m GFR COMMENT Average GFR for 60-69 years old = 85. CBC, EDIF, PLATELET Result Value Ref Range WBC (WHITE BLOOD COUNT) 3.3 (L) 3.6 - 11.0 10*3/uL RBC 4.06 4.0 - 5.4 10*6/uL HEMOGLOBIN (HGB) 12.9 12.0 - 16.0 G/DL HEMATOCRIT (HCT) 36.9 36.0 - 48.0 % MEAN CELL VOLUME 90.8 80.0 - 100.0 FL Mean Cell HGB 31.7 26.0 - 35.0 PG MEAN CELL HGB CONCENTRATION 35.0 27.0 - 37.0 G/DL RBC DISTRIBUTION 13.7 11.5 - 14.5 % PLATELET COUNT 94 (L) 130.0 - 400.0 10*3/uL MEAN PLATELET VOLUME 10.6 7.4 - 11.0 FL DIFFERENTIAL TYPE AUTO DIFF % NEUTROPHILS 42.6 37.0 - 75.0 % LYMPHOCYTE 42.9 20.0 - 55.0 % MONOCYTE % 7.8 0.0 - 10.0 % EOSINOPHIL % 6.1 0.0 - 11.0 % BASOPHIL % 0.6 0.0 - 2.0 % Absolute Neutrophil Count 1.4 1.4 - 6.5 10*3/uL LYMPHOCYTES, ABSOLUTE 1.40 1.2 - 3.4 10*3/uL MONOCYTES, ABSOLUTE 0.3 0.0 - 0.7 10*3/uL ABSOLUTE EOSINOPHIL COUNT 0.20 0.0 - 0.7 10*3/uL ABSOLUTE BASOPHIL COUNT 0.0 0.0 - 0.2 10*3/uL POTASSIUM Result Value Ref Range POTASSIUM 3.3 (L) 3.5 - 5.1 MMOL/L C REACTIVE PROTEIN Result Value Ref Range C-REACTIVE PROTEIN 8.7 0 - 10.0 MG/L LACTATE, BLOOD Result Value Ref Range LACTATE 1.7 0.7 - 2.0 mmol/L SEDIMENTATION RATE, AUTOMATED Result Value Ref Range SEDIMENTATION RATE AUTOMATED 4 0 - 30 MM/HR C REACTIVE PROTEIN Result Value Ref Range C-REACTIVE PROTEIN <7.9 0 - 10.0 MG/L CBC, EDIF, PLATELET Result Value Ref Range WBC (WHITE BLOOD COUNT) 3.2 (L) 3.6 - 11.0 10*3/uL RBC 3.94 (L) 4.0 - 5.4 10*6/uL HEMOGLOBIN (HGB) 12.4 12.0 - 16.0 G/DL HEMATOCRIT (HCT) 36.1 36.0 - 48.0 % MEAN CELL VOLUME 91.7 80.0 - 100.0 FL Mean Cell HGB 31.6 26.0 - 35.0 PG MEAN CELL HGB CONCENTRATION 34.5 27.0 - 37.0 G/DL RBC DISTRIBUTION 13.5 11.5 - 14.5 % PLATELET COUNT 89 (L) 130.0 - 400.0 10*3/uL MEAN PLATELET VOLUME 10.5 7.4 - 11.0 FL DIFFERENTIAL TYPE AUTO DIFF % NEUTROPHILS 49.8 37.0 - 75.0 % LYMPHOCYTE 35.4 20.0 - 55.0 % MONOCYTE % 7.1 0.0 - 10.0 % EOSINOPHIL % 7.2 0.0 - 11.0 % BASOPHIL % 0.5 0.0 - 2.0 % Absolute Neutrophil Count 1.6 1.4 - 6.5 10*3/uL LYMPHOCYTES, ABSOLUTE 1.10 (L) 1.2 - 3.4 10*3/uL MONOCYTES, ABSOLUTE 0.2 0.0 - 0.7 10*3/uL ABSOLUTE EOSINOPHIL COUNT 0.20 0.0 - 0.7 10*3/uL ABSOLUTE BASOPHIL COUNT 0.0 0.0 - 0.2 10*3/uL COMPREHENSIVE METABOLIC PANEL Result Value Ref Range GLUCOSE 124 (H) 70 - 100 MG/DL BUN 20 7 - 20 MG/DL CREATININE SERUM 1.06 (H) 0.52 - 1.04 MG/DL SODIUM 139 136 - 145 MMOL/L POTASSIUM 3.5 3.5 - 5.1 MMOL/L CHLORIDE 104 98 - 107 MMOL/L CALCIUM 8.6 8.4 - 10.2 MG/DL PROTEIN, TOTAL 5.9 (L) 6.3 - 8.2 GM/DL ALBUMIN 3.5 3.5 - 5.0 G/dl BILIRUBIN, TOTAL 0.3 0.2 - 1.2 MG/DL AST 33 15 - 41 IU/L ALKALINE PHOSPHATASE 51 38 - 126 IU/L CARBON DIOXIDE (CO2) 27 22 - 30 MMOL/L A/G Ratio 1.5 1.3 - 2.2 RATIO ALT 40 14 - 54 IU/L ESTIMATED GFR, NON AMER 56 ml/min/1.73sq.m ESTIMATED GFR, 68 ml/min/1.73sq.m GFR COMMENT Average GFR for 60-69 years old = 85. PROTIME-INR Result Value Ref Range PT 13.2 11.8 - 14.4 SEC INR 0.98 0.85 - 1.10 MAGNESIUM Result Value Ref Range MAGNESIUM 2.0 1.6 - 2.3 MG/DL SEDIMENTATION RATE, AUTOMATED Result Value Ref Range SEDIMENTATION RATE AUTOMATED 6 0 - 30 MM/HR TROPONIN I, HIGH SENSITIVITY Result Value Ref Range TROPONIN I, HIGH SENSITIVITY 4 0 - 12 pg/mL D-DIMER,QUANTITATIVE Result Value Ref Range D-DIMER 0.36 <0.50 mg/L FEU FIBRINOGEN, CLOTTABLE Result Value Ref Range FIBRINOGEN 294.0 171 - 562 mg/dL C REACTIVE PROTEIN Result Value Ref Range C-REACTIVE PROTEIN <7.9 0 - 10.0 MG/L CBC, EDIF, PLATELET Result Value Ref Range WBC (WHITE BLOOD COUNT) 3.6 3.6 - 11.0 10*3/uL RBC 3.75 (L) 4.0 - 5.4 10*6/uL HEMOGLOBIN (HGB) 11.9 (L) 12.0 - 16.0 G/DL HEMATOCRIT (HCT) 34.5 (L) 36.0 - 48.0 % MEAN CELL VOLUME 92.0 80.0 - 100.0 FL Mean Cell HGB 31.6 26.0 - 35.0 PG MEAN CELL HGB CONCENTRATION 34.4 27.0 - 37.0 G/DL RBC DISTRIBUTION 13.6 11.5 - 14.5 % PLATELET COUNT 89 (L) 130.0 - 400.0 10*3/uL MEAN PLATELET VOLUME 11.2 (H) 7.4 - 11.0 FL DIFFERENTIAL TYPE AUTO DIFF % NEUTROPHILS 55.7 37.0 - 75.0 % LYMPHOCYTE 31.9 20.0 - 55.0 % MONOCYTE % 5.7 0.0 - 10.0 % EOSINOPHIL % 6.1 0.0 - 11.0 % BASOPHIL % 0.6 0.0 - 2.0 % Absolute Neutrophil Count 2.0 1.4 - 6.5 10*3/uL LYMPHOCYTES, ABSOLUTE 1.10 (L) 1.2 - 3.4 10*3/uL MONOCYTES, ABSOLUTE 0.2 0.0 - 0.7 10*3/uL ABSOLUTE EOSINOPHIL COUNT 0.20 0.0 - 0.7 10*3/uL ABSOLUTE BASOPHIL COUNT 0.0 0.0 - 0.2 10*3/uL COMPREHENSIVE METABOLIC PANEL Result Value Ref Range GLUCOSE 120 (H) 70 - 100 MG/DL BUN 22 (H) 7 - 20 MG/DL CREATININE SERUM 1.05 (H) 0.52 - 1.04 MG/DL SODIUM 141 136 - 145 MMOL/L POTASSIUM 3.6 3.5 - 5.1 MMOL/L CHLORIDE 109 (H) 98 - 107 MMOL/L CALCIUM 8.4 8.4 - 10.2 MG/DL PROTEIN, TOTAL 5.5 (L) 6.3 - 8.2 GM/DL ALBUMIN 3.4 (L) 3.5 - 5.0 G/dl BILIRUBIN, TOTAL 0.5 0.2 - 1.2 MG/DL AST 29 15 - 41 IU/L ALKALINE PHOSPHATASE 47 38 - 126 IU/L CARBON DIOXIDE (CO2) 27 22 - 30 MMOL/L A/G Ratio 1.6 1.3 - 2.2 RATIO ALT 36 14 - 54 IU/L ESTIMATED GFR, NON AMER 57 ml/min/1.73sq.m ESTIMATED GFR, 69 ml/min/1.73sq.m GFR COMMENT Average GFR for 60-69 years old = 85. PROTIME-INR Result Value Ref Range PT 12.2 11.8 - 14.4 SEC INR 0.88 0.85 - 1.10 MAGNESIUM Result Value Ref Range MAGNESIUM 2.1 1.6 - 2.3 MG/DL SEDIMENTATION RATE, AUTOMATED Result Value Ref Range SEDIMENTATION RATE AUTOMATED 5 0 - 30 MM/HR URINALYSIS, MACRO Result Value Ref Range COLOR, URINE YELLOW YELLOW APPEARANCE, URINE CLEAR CLEAR Specific [place], Urine 1.025 1.010 - 1.025 PH URINE 5.5 5.0 - 7.0 PROTEIN, URINE NEGATIVE NEGATIVE mg/dl GLUCOSE, URINE NEGATIVE NEGATIVE mg/dl KETONES, URINE TRACE (A) NEGATIVE mg/dl BILIRUBIN, URINE NEGATIVE NEGATIVE BLOOD, URINE DIPSTICK NEGATIVE NEGATIVE NITRITES, URINE NEGATIVE NEGATIVE UROBILINOGEN, URINE 0.2 0.2 - 1.0 E.U./dL LEUKOCYTE ESTERASE, URINE SMALL (A) NEGATIVE URINE MICROSCOPIC Result Value Ref Range WBC, URINE NEGATIVE NEGATIVE /HPF RBC, URINE NEGATIVE NEGATIVE /HPF Epithelial Cells UA NONE /HPF Mucus NEGATIVE NEGATIVE BACTERIA, URINE NEGATIVE NEGATIVE CRYSTALS, URINE NONE NONE CASTS, URINE NONE NONE /LPF COMMENT, URINE CULTURE CRITERIA NOT MET, NO CULTURE PERFORMED. HEENT: NC/AT, PERRLA, EOMI, fundi benign, external ears normal, OP normal. Neck: No LAD/thyromegaly. No JVD/bruit. Lungs: Clear to auscultation bilaterally. No wheezes, rales, ronchi. Heart: RRR. No S3/S4. Abdomen: Soft, NT/ND, normal bowel sounds, no HSM, no bruits. Extremities: No clubbing, cyanosis, edema. Normal pulses. Neurologic: CN II-XII intact. Strength/DTR's/sensation symmetric. Cerebellar function normal. Skin: No rash or suspicious lesions. Musculoskeletal: No edema, redness, warmth, deformities. Psychiatric: Alert and oriented. Affect and mood normal. Av Bertrand MD 01/30/2022 documented in this [facility]05-12-2022 Hospital Discharge instructions* Discharge Instr - Activity* HEATHER Delgado - 01/30/2022 11:16 AM EDT AAT * Discharge Instr - Diet* HEATHER Delgado - 01/30/2022 11:16 AM EDT AAT * Attachments The following attachments cannot be sent through Care Everywhere. * Chest Pain ([place]) documented in this [facility]05-12-2022 Consult note* Calvin Alexander MD - 01/30/2022 11:06 AM EDTAssociated Order(s): IP CONSULT TO CARDIOLOGY Chief Complaint Chief Complaint Patient presents with Chest Pain Chest pain, weakness, tachycardia, shaky, and high blood pressure since yesterday Assessment & Plan Atypical CP with low risk MPS - OK for DC home - Cont w ASA and statin - Routine outpt f/up with PCP LHC performed in 2019 - nonobs Subjective: Micheline Fox is a 61 y.o. female seen by [facility] cardiology today for atypical chest discomfort w burning that radiates to her neck. Has taken Tums for sx with variable response. She is sedentary but does get occasional CP with exertion. MPS today was low risk with defect. C from 2019 reviewed Past Medical History: Diagnosis Date Adverse drug reaction Possible drug reaction to Sovaldi and Ribavirin but not confirmed. Anxiety Chronic hepatitis C without mention of hepatic coma Depression Hernia of abdominal cavity 2011 Hypertension Kidney infection Obesity Shingles Past Surgical History: Procedure Laterality Date EGD DIAGNOSTIC N/A 11/13/2020 Laterality: N/A; Surgeon: Isael Hall MD; Location: [facility] ENDOSCOPY REPAIR HERNIA VENTRAL OPEN W/ MESH N/A 07/16/2016 Laterality: N/A; Surgeon: Jake Hurtado MD; Location: [facility] MAIN OR HEART CATHETERIZATION Apr 2015 GASTRIC BYPASS 1996 HYSTERECTOMY 1987 BACK SURGERY HARDWARE L 4-5 CERVICAL LAMINECTOMY C 4-5 HERNIA REPAIR x4 Current Facility-Administered Medications Medication Dose Route Frequency Provider Last Rate Last Admin acetaminophen (TYLENOL) tablet 650 mg 650 mg Oral Q4H PRN Av Bertrand MD 650 mg at 01/27/22 2231 ALPRAZolam (XANAX) tablet 1 mg 1 mg Oral Daily Flip Campos, EXAMINATION SCORER-CONTRACTS DIRECTOR 1 mg at 01/30/22 0935 alum/mag hydrox.-simethicone oral suspension 30 mL 30 mL Oral Q6H PRN Flip Campos, EXAMINATION SCORER-CONTRACTS DIRECTOR cholecalciferol (VITAMIN D3) tablet 1,000 Units 1,000 Units Oral Daily Flip Campos, EXAMINATION SCORER-CONTRACTS DIRECTOR 1,000 Units at 01/30/22 0935 diphenhydrAMINE (BENADRYL) injection 25 mg 25 mg Intravenous Q6H PRN Flip Tao, EXAMINATION SCORER-CONTRACTS DIRECTOR docusate (COLACE) capsule 200 mg 200 mg Oral QHS Flip Kentrell Tao, EXAMINATION SCORER-CONTRACTS DIRECTOR 200 mg at 01/29/222037 DULoxetine (CYMBALTA) capsule DR 60 mg 60 mg Oral Daily , EXAMINATION SCORER-CONTRACTS DIRECTOR 60 mg at 01/30/22934 [Held by provider] Enoxaparin Sodium (LOVENOX) injection 40 mg 40 mg Subcutaneous Daily Flip Kentrell Tao, EXAMINATION SCORER-CONTRACTS DIRECTOR 40 mg at 01/28/222037 hydrALAZINE (APRESOLINE) tablet 25 mg 25 mg Oral TID Flip Kentrell Tao, EXAMINATION SCORER-CONTRACTS DIRECTOR 25 mg at 01/30/22934 hydroCODone-acetaminophen (NORCO) 5-325 MG per tablet 1 tablet 1 tablet Oral Q6H PRN Flip Pfeiffer , EXAMINATION SCORER-CONTRACTS DIRECTOR 1 tablet at 01/30/22934 ketorolac (TORADOL) injection 30 mg 30 mg Intravenous Q8H PRN Av Bertrand MD 30 mg at 01/29/222036 labetalol (NORMODYNE) injection 20 mg 20 mg Intravenous Q4H PRN Flip Tao, EXAMINATION SCORER-CONTRACTS DIRECTOR lactulose (CHRONULAC) oral solution 20 g 20 g Oral Q4H PRN Flip Pfeiffer , EXAMINATION SCORER-CONTRACTS DIRECTOR losartan (COZAAR) tablet 50 mg 50 mg Oral Daily , EXAMINATION SCORER-CONTRACTS DIRECTOR 50 mg at 01/30/22934 magnesium sulfate 2 g/50 mL in sterile water premix IVPB 2 g 50 mL (total volume) 2 g Intravenous Daily Flip D Dinh, EXAMINATION SCORER-CONTRACTS DIRECTOR melatonin tablet 3 mg 3 mg Oral QHS PRN Flip Pfeiffer , EXAMINATION SCORER-CONTRACTS DIRECTOR metoprolol (LOPRESSOR) tablet 25 mg 25 mg Oral BID Flip Kentrell , EXAMINATION SCORER-CONTRACTS DIRECTOR 25 mg at 01/30/22934 naloxone (NARCAN) injection 0.04 mg 0.04 mg Intravenous PRN Flip Tao, EXAMINATION SCORER-CONTRACTS DIRECTOR nitroGLYCERIN (NITRO-BID) 2 % ointment 0.5 inch 0.5 inch Topical TID Isreal Brush PA-C 0.5 inch at 01/30/22 0936 ondansetron 4mg/2ml (ZOFRAN) injection 4 mg 4 mg Intravenous Q4H PRN Av Bertrand MD 4 mg at 01/28/22 0834 pantoprazole (PROTONIX) tablet DR 40 mg 40 mg Oral Daily Flip Campos, EXAMINATION SCORER- CONTRACTS DIRECTOR 40 mg at potassium chloride (K-DUR) tablet ER 40 mEq 40 mEq Oral Daily Flip Campos, EXAMINATION SCORER-CONTRACTS DIRECTOR Or potassium chloride 40 mEq in 0.9% sodium chloride 500 ml IVPB 40 mEq Intravenous Daily Flip Campos, EXAMINATION SCORER-CONTRACTS DIRECTOR potassium phosphates 30 mmol in sodium chloride 0.9%, with overfill 535 mL (total volume) IVPB 30 mmol Intravenous PRN Flip Campos, EXAMINATION SCORER-ORTIZ sodium chloride 0.9% IV solution Intravenous Continuous JAQUELIN Marrufo-C 75 mL/hr at 01/30/2238 Restarted at 01/30/22937 tizanidine (ZANAFLEX) tablet 2 mg 2 mg Oral Q8H PRN Flip Campos, EXAMINATION SCORER-CONTRACTS DIRECTOR topiramate (TOPAMAX) tablet 50 mg 50 mg Oral QHS Av Bertrand MD 50 mg at 01/29/222037 traZODone (DESYREL) tablet 300 mg 300 mg Oral QHS Av Bertrand MD 300 mg at 01/29/222037 zolpidem (AMBIEN) tablet 5 mg 5 mg Oral QHS Av Bertrand MD 5 mg at 01/29/222037 zolpidem (AMBIEN) tablet 5 mg 5 mg Oral QHS PRN Flip Campos, EXAMINATION SCORER-CONTRACTS DIRECTOR Allergies Allergen Reactions Fentanyl Itching Codeine Latex Hives and Rash Penicillins Social History Socioeconomic History Marital status: Tobacco Use Smoking status: Former Smoker Packs/day: 0.30 Years: 30.00 Pack years: 9.00 Types: Cigarettes Quit date: 02/18/2015 Years since quittin.9 Smokeless tobacco: Never Used Vaping Use Vaping Use: Former Substance and Sexual Activity Alcohol use: Yes Comment: occasionally Drug use: No Family History Problem Relation Age of Onset Stroke Mother TIA -04/29/16 Coronary Artery Disease Father Other - Specify Father Hypertension Father Dementia Father Heart Failure Father Hypertension Brother Problem List: Patient Active Problem List Diagnosis Ventral hernia, unspecified, without mention of obstruction or gangrene Class 3 severe obesity due to excess calories with serious comorbidity and body mass index (BMI) of45.0 to 49.9 in adult S/P hernia repair Left upper quadrant abdominal pain S/P bariatric surgery Chest pain UTI (urinary tract infection) Hypokalemia Vitamin D deficiency Dehydration Anxiety Chronic hepatitis C virus infection Hypertensive urgency KELLY (obstructive sleep apnea) Leukopenia Thrombocytopenia Review of System Constitutional: Negative malaise/fatigue, significant weight loss Hematologic: Negative for anemia, hypercoagulable states, transfusion dependency Endocrine: Negative polyuria, thyroid goiter, flushing Skin: Negative rash, lesions, ulcerations HEENT: Negative diplopia, visual file defect, vertigo Cardiovascular: see HPI and negative for chest wall trauma Respiratory: see HPI, negative for chest wall deformity, hemopysis, prior tracheotomy Gastrointestinal: Negative for abdominal pain, GI bleed, bowel obstruction Genitourinary: Negative for nephrolithiasis , dysuria, hematuria Neurological: Negative for pamela syncope, frequent falls, new CVA symptoms, Psychiatric: Negative anxiety, depression, psychiatric disorder Musculoskeletal: Negative for joint pain, joint deformity, swelling Blood pressure 133/64, pulse 73, temperature 98.6 F (37 C), temperature source Oral, resp. rate 18,height 1.651 m (5' 5 ), weight 131.1 kg (289 lb 1.6 oz), SpO2 93 %. Body mass index is 48.11 kg/m . Physical Exam General appearance - obese well nourished,61 y.o.female with appropriate affect HEENT-PERRLA, EOMI, no xanthelasma or icterus Neck - , No JVD or bruits. Carotid upstrokes brisk. No adenopathy or thyromegaly. Lungs - clear to auscultation, no wheezes, rales or rhonchi Heart - regular rate and regular rhythm, normal S1 and S2 , no significant murmurs, click rub or lift , Abdomen - soft, nontender, no organomegaly Extremities -no edema, clubbing or cyanosis. pulses 2+ bilaterally Neurologic-cranial nerves II through XII intact Skin - normal coloration and turgor, no laxity Psych- appropriate mood, Musculoskeletal - no joint deformity, tendon xanthoma Lab and Xray Results: Reviewed The electronic medical record including active problem list, labs, provider notes, past medical history as well as the patient's medications, allergies, pertinent social and family history were reviewed and updated where appropriate with the patient. Vital signs were reviewed and noted as well as physical exam performed and documented as above. All pertinent questions and answers related to the chief complaint and cardiovascular problem list were addressed. 30 minutes was spent face to face with patient. Greater than 50% was spent counseling on care management as documented. Patient questions were answered to satisfaction. Calvin Alexander MD 01/30/2022 11:06 AM [employer] Work Phone: [phone] Consult note* Calvin Alexander MD - 01/30/2022 11:06 AM EDTAssociated Order(s): IP CONSULT TO CARDIOLOGY Chief Complaint Chief Complaint Patient presents with Chest Pain Chest pain, weakness, tachycardia, shaky, and high blood pressure since yesterday Assessment & Plan Atypical CP with low risk MPS - OK for DC home - Cont w ASA and statin - Routine outpt f/up with PCP LHC performed in 2019 - nonobs Subjective: Micheline Fox is a 61 y.o. female seen by [facility] cardiology today for atypical chest discomfort w burning that radiates to her neck. Has taken Tums for sx with variable response. She is sedentary but does get occasional CP with exertion. MPS today was low risk with defect. LHC from 2019 reviewed Past Medical History: Diagnosis Date Adverse drug reaction Possible drug reaction to Sovaldi and Ribavirin but not confirmed. Anxiety Chronic hepatitis C without mention of hepatic coma Depression Hernia of abdominal cavity 2011 Hypertension Kidney infection Obesity Shingles Past Surgical History: Procedure Laterality Date EGD DIAGNOSTIC N/A 11/13/2020 Laterality: N/A; Surgeon: Isael Hall MD; Location: [facility] ENDOSCOPY REPAIR HERNIA VENTRAL OPEN W/ MESH N/A 07/16/2016 Laterality: N/A; Surgeon: Jake Hurtado MD; Location: [facility] MAIN OR HEART CATHETERIZATION Apr 2015 GASTRIC BYPASS 1996 HYSTERECTOMY 1987 BACK SURGERY HARDWARE L 4-5 CERVICAL LAMINECTOMY C 4-5 HERNIA REPAIR x4 Current Facility-Administered Medications Medication Dose Route Frequency Provider Last Rate Last Admin acetaminophen (TYLENOL) tablet 650 mg 650 mg Oral Q4H PRN Av Bertrand MD 650 mg at 01/27/222230 ALPRAZolam (XANAX) tablet 1 mg 1 mg Oral Daily Flip D Grund, EXAMINATION SCORER-CONTRACTS DIRECTOR 1 mg at 01/30/22 0935 alum/mag hydrox.-simethicone oral suspension 30 mL 30 mL Oral Q6H PRN Flip D Grund, EXAMINATION SCORER-CONTRACTS DIRECTOR cholecalciferol (VITAMIN D3) tablet 1,000 Units 1,000 Units Oral Daily Flip D , EXAMINATION SCORER-CONTRACTS DIRECTOR 1,000 Units at 01/30/22934 diphenhydrAMINE (BENADRYL) injection 25 mg 25 mg Intravenous Q6H PRN Flip D Grund, EXAMINATION SCORER-CONTRACTS DIRECTOR docusate (COLACE) capsule 200 mg 200 mg Oral QHS Flip D , EXAMINATION SCORER-CONTRACTS DIRECTOR 200 mg at 01/29/222037 DULoxetine (CYMBALTA) capsule DR 60 mg 60 mg Oral Daily D , EXAMINATION SCORER-CONTRACTS DIRECTOR 60 mg at 01/30/22 09 [Held by provider] Enoxaparin Sodium (LOVENOX) injection 40 mg 40 mg Subcutaneous Daily Flip D Dinh, EXAMINATION SCORER-CONTRACTS DIRECTOR 40 mg at 01/28/222037 hydrALAZINE (APRESOLINE) tablet 25 mg 25 mg Oral TID , EXAMINATION SCORER-CONTRACTS DIRECTOR 25 mg at 01/30/22934 hydroCODone-acetaminophen (NORCO) 5-325 MG per tablet 1 tablet 1 tablet Oral Q6H PRN Flip Pfeiffer Gr, EXAMINATION SCORER-CONTRACTS DIRECTOR 1 tablet at 01/30/22934 ketorolac (TORADOL) injection 30 mg 30 mg Intravenous Q8H PRN Av Bertrand MD 30 mg at 01/29/222036 labetalol (NORMODYNE) injection 20 mg 20 mg Intravenous Q4H PRN Flip D Grund, EXAMINATION SCORER-CONTRACTS DIRECTOR lactulose (CHRONULAC) oral solution 20 g 20 g Oral Q4H PRN Flip Pfeiffer Grund, EXAMINATION SCORER-CONTRACTS DIRECTOR losartan (COZAAR) tablet 50 mg 50 mg Oral Daily Flip Campos, AWILDA-CONTRACTS DIRECTOR 50 mg at 01/30/22 0935 magnesium sulfate 2 g/50 mL in sterile water premix IVPB 2 g 50 mL (total volume) 2 g Intravenous Daily HEATHER Delgado melatonin tablet 3 mg 3 mg Oral QHS PRN Flip Campos, AWILDA-ORTIZ metoprolol (LOPRESSOR) tablet 25 mg 25 mg Oral BID Flip Campos, AWILDA-CONTRACTS DIRECTOR 25 mg at 01/30/22 0935 naloxone (NARCAN) injection 0.04 mg 0.04 mg Intravenous PRN Flip Campos, HEATHER nitroGLYCERIN (NITRO-BID) 2 % ointment 0.5 inch 0.5 inch Topical TID Isreal Brush PA-C 0.5 inch at 01/30/22 0936 ondansetron 4mg/2ml (ZOFRAN) injection 4 mg 4 mg Intravenous Q4H PRN Av Bertrand MD 4 mg at 01/28/2234 pantoprazole (PROTONIX) tablet DR 40 mg 40 mg Oral Daily Flip Campos, BHAVANI ALCANTAR 40 mg at potassium chloride (K-DUR) tablet ER 40 mEq 40 mEq Oral Daily HEATHER Delgado Or potassium chloride 40 mEq in 0.9% sodium chloride 500 ml IVPB 40 mEq Intravenous Daily Flip Campos, AWILDA-ORTIZ potassium phosphates 30 mmol in sodium chloride 0.9%, with overfill 535 mL (total volume) IVPB 30 mmol Intravenous PRN Flip Campos APRN-ORTIZ sodium chloride 0.9% IV solution Intravenous Continuous Michaela Barragan PA-C 75 mL/hr at 01/30/2238 Restarted at 01/30/22937 tizanidine (ZANAFLEX) tablet 2 mg 2 mg Oral Q8H PRN Flip Campos, HEATHER topiramate (TOPAMAX) tablet 50 mg 50 mg Oral QHS Av Bertrand MD 50 mg at 01/29/222037 traZODone (DESYREL) tablet 300 mg 300 mg Oral QHS Av Bertrand MD 300 mg at 01/29/222037 zolpidem (AMBIEN) tablet 5 mg 5 mg Oral QHS Av Bertrand MD 5 mg at 01/29/222037 zolpidem (AMBIEN) tablet 5 mg 5 mg Oral QHS PRN Flip Campos APRN-CONTRACTS DIRECTOR Allergies Allergen Reactions Fentanyl Itching Codeine Latex Hives and Rash Penicillins Social History Socioeconomic History Marital status: Tobacco Use Smoking status: Former Smoker Packs/day: 0.30 Years: 30.00 Pack years: 9.00 Types: Cigarettes Quit date: 02/18/2015 Years since quittin.9 Smokeless tobacco: Never Used Vaping Use Vaping Use: Former Substance and Sexual Activity Alcohol use: Yes Comment: occasionally Drug use: No Family History Problem Relation Age of Onset Stroke Mother TIA -04/29/16 Coronary Artery Disease Father Other - Specify Father Hypertension Father Dementia Father Heart Failure Father Hypertension Brother Problem List: Patient Active Problem List Diagnosis Ventral hernia, unspecified, without mention of obstruction or gangrene Class 3 severe obesity due to excess calories with serious comorbidity and body mass index (BMI) of45.0 to 49.9 in adult S/P hernia repair Left upper quadrant abdominal pain S/P bariatric surgery Chest pain UTI (urinary tract infection) Hypokalemia Vitamin D deficiency Dehydration Anxiety Chronic hepatitis C virus infection Hypertensive urgency KELLY (obstructive sleep apnea) Leukopenia Thrombocytopenia Review of System Constitutional: Negative malaise/fatigue, significant weight loss Hematologic: Negative for anemia, hypercoagulable states, transfusion dependency Endocrine: Negative polyuria, thyroid goiter, flushing Skin: Negative rash, lesions, ulcerations HEENT: Negative diplopia, visual file defect, vertigo Cardiovascular: see HPI and negative for chest wall trauma Respiratory: see HPI, negative for chest wall deformity, hemopysis, prior tracheotomy Gastrointestinal: Negative for abdominal pain, GI bleed, bowel obstruction Genitourinary: Negative for nephrolithiasis , dysuria, hematuria Neurological: Negative for pamela syncope, frequent falls, new CVA symptoms, Psychiatric: Negative anxiety, depression, psychiatric disorder Musculoskeletal: Negative for joint pain, joint deformity, swelling Blood pressure 133/64, pulse 73, temperature 98.6 F (37 C), temperature source Oral, resp. rate 18,height 1.651 m (5' 5 ), weight 131.1 kg (289 lb 1.6 oz), SpO2 93 %. Body mass index is 48.11 kg/m . Physical Exam General appearance - obese well nourished,61 y.o.female with appropriate affect HEENT-PERRLA, EOMI, no xanthelasma or icterus Neck - , No JVD or bruits. Carotid upstrokes brisk. No adenopathy or thyromegaly. Lungs - clear to auscultation, no wheezes, rales or rhonchi Heart - regular rate and regular rhythm, normal S1 and S2 , no significant murmurs, click rub or lift , Abdomen - soft, nontender, no organomegaly Extremities -no edema, clubbing or cyanosis. pulses 2+ bilaterally Neurologic-cranial nerves II through XII intact Skin - normal coloration and turgor, no laxity Psych- appropriate mood, Musculoskeletal - no joint deformity, tendon xanthoma Lab and Xray Results: Reviewed The electronic medical record including active problem list, labs, provider notes, past medical history as well as the patient's medications, allergies, pertinent social and family history were reviewed and updated where appropriate with the patient. Vital signs were reviewed and noted as well as physical exam performed and documented as above. All pertinent questions and answers related to the chief complaint and cardiovascular problem list were addressed. 30 minutes was spent face to face with patient. Greater than 50% was spent counseling on care management as documented. Patient questions were answered to satisfaction. Calvin Alexander MD 01/30/2022 11:06 AM [facility]* Nursing Notes - Kerrie Pacheco RN - 01/30/2022 4:17 AM EDT Patient assessment unchanged from previous assessment. Call light and personal items within reach. Patient denies any further needs at this time. [facility] Note* Nursing Notes - Kerrie Pacheco RN - 01/30/2022 12:14 AM EDT Patient assessment unchanged from previous assessment. Call light and personal items within reach. Patient denies any further needs at this time. [facility] Note* Nursing Notes - Vaishnavi Ybarra RN - 01/29/2022 6:39 PM EDT Chest pain, 02/28, patient states it is intermittent, and worsens with movement. States pain is sharp and heavy. . EKG ordered. Isreal HAMMER aware . Dr Alexander was notified by automobile rental clerk earlier this am. T [facility]05-11-[facility] Note* Plan of Care - Vaishnavi Ybarra RN - 01/29/2022 4:41 PM EDT Problem: Patient Care Overview Goal: Plan of Care Review Outcome: Ongoing Goal: Individualization & Mutuality Outcome: Ongoing Goal: Discharge Needs Assessment Outcome: Ongoing Goal: Interdisciplinary Rounds/Family Conf Outcome: Ongoing Problem: Skin Integrity Impairment, Risk/Actual (Adult) Goal: Identify Related Risk Factors and Signs and Symptoms Description: Related risk factors and signs and symptoms are identified upon initiation of Human Response Clinical Practice Guideline (CPG) Outcome: Ongoing Goal: Skin Integrity/Wound Healing Description: Patient will demonstrate the desired outcomes by discharge/transition of care. Outcome: Ongoing Problem: Pain, Acute (Adult) Goal: Identify Related Risk Factors and Signs and Symptoms Description: Related risk factors and signs and symptoms are identified upon initiation of Human Response Clinical Practice Guideline (CPG) Outcome: Ongoing Goal: Acceptable Pain Control/Comfort Level Description: Patient will demonstrate the desired outcomes by discharge/transition of care. Outcome: Ongoing T [facility]* Nursing Notes - An Mendoza RN - 01/29/2022 2:00 AM EDT Pt sleeping soundly, oxygen saturation at 83-87 on room air. Oxygen applied at 2 L/NC with saturation improving to 92%. [facility]05-11-2022 Note* Nursing Notes - Vaishnavi Ybarra RN - 01/29/2022 12:00 PM EDT Assessment completed. Patient states chest pain is less and she is able to rest. Call light within reach. [facility]-11-[facility] Note* Nursing Notes - Vaishnavi Ybarra RN - 01/29/2022 9:04 AM EDT While doing assessment of patient, she was drowsy and hard to keep awake to obtain answers. Patientstates she has 6/10 chest pain, center that radiates to left shoulder and is constant. Patient did not open her eyes when describing pain. When trying to further evaluate pain, patient continues to keep eyes closed and has to be reawakened to answer questions. Patient states she sleeps until 11-12 keenan and goes to sleep at midnight to 1 am. Patient opened eyes to take pills but closed her eyes immediately after and went back to sleep. Isreal HAMMER aware and orders received. [facility]05-11-[facility] Note* Nursing Notes - An Mendoza RN - 01/29/2022 3:42 AM EDT Assessment unchanged, resting quietly. O2 Sats in the 90's with oxygen on at 2 L/ NS. Side rails upx 2, call light in reach. [facility]05-11-[facility] Note* Nursing Notes - An Mendoza RN - 01/29/2022 12:15 AM EDT Transferred from second floor to [facility]. Denies complaints [facility]05-10-2022 Note* Nursing Notes - Melvin Dodd RN - 01/28/2022 4:56 PM EDT No changes from prior assessment [facility] History and physical note* Flip Campos APRN- ORTIZ - 01/28/2022 3:11 PM EDT [facility] History and Physical Examination 01/28/22 3:11 PM Chief Complaint: Chief Complaint Patient presents with Chest Pain Chest pain, weakness, tachycardia, shaky, and high blood pressure since yesterday History of Present Illness: Patient is a 61 y.o. female presents to [facility] for evaluation of not feeling well. Symptomsstarted yesterday. She states she has had palpitations, felt shakey and her blood pressure has beenrunning high. She has generalized weakness. She has nausea and she thinks she is dehydrated. She has a 9/10 diffuse headache. She states that when it gets this bad she has to get a shot of a strong narcotic. She has chest pain. She states everything hurts. She states her blood pressure has been out of control. She has been running over 200 systolic at home per patient. She states she has seen her family doctor for it and they can't get it under control. She has nausea and states she hasn't been eating well. She thinks she is dehydrated. She has dizziness and a headache. No calf pain or swelling. In the emergency department basic laboratory values were obtained. Patient was found to have a urinary tract infection. Troponins are negative. Echocardiogram shows an EF of 70%. Patient did have hypokalemia which has improved. Patient does have urinary tract infection was started on Rocephin. She was admitted to the hospital for ACS rule out. Objective: Patient Active Problem List Diagnosis Date Noted UTI (urinary tract infection) 01/28/2022 Hypokalemia 01/28/2022 Vitamin D deficiency 01/28/2022 Dehydration 01/28/2022 Anxiety 01/28/2022 Chronic hepatitis C virus infection 01/28/2022 Hypertensive urgency 01/28/2022 Chest pain 01/27/2022 Left upper quadrant abdominal pain 10/24/2020 Added automatically from request for surgery [id number] S/P bariatric surgery 10/24/2020 Added automatically from request for surgery S/P hernia repair 07/16/2016 Class 3 severe obesity due to excess calories with serious comorbidity and body mass index (BMI) of45.0 to 49.9 in adult Ventral hernia, unspecified, without mention of obstruction or gangrene 09/30/2013 Past Medical History: Diagnosis Date Adverse drug reaction Possible drug reaction to Sovaldi and Ribavirin but not confirmed. Anxiety Chronic hepatitis C without mention of hepatic coma Depression Hernia of abdominal cavity 2011 Hypertension Kidney infection Obesity Shingles Past Surgical History: Procedure Laterality Date EGD DIAGNOSTIC N/A 11/13/2020 Laterality: N/A; Surgeon: Isael Hall MD; Location: [facility] ENDOSCOPY REPAIR HERNIA VENTRAL OPEN W/ MESH N/A 07/16/2016 Laterality: N/A; Surgeon: Jake Hurtado MD; Location: [facility] MAIN OR HEART CATHETERIZATION Apr 2015 GASTRIC BYPASS 1996 HYSTERECTOMY 1987 BACK SURGERY HARDWARE L 4-5 CERVICAL LAMINECTOMY C 4-5 HERNIA REPAIR x4 Social History Tobacco Use Smoking status: Former Smoker Packs/day: 0.30 Years: 30.00 Pack years: 9.00 Types: Cigarettes Quit date: 02/18/2015 Years since quittin.9 Smokeless tobacco: Never Used Substance Use Topics Alcohol use: Yes Comment: occasionally Family History Problem Relation Age of Onset Stroke Mother TIA -04/29/16 Coronary Artery Disease Father Other - Specify Father Hypertension Father Dementia Father Heart Failure Father Hypertension Brother Medications Prior to Admission Medication Sig Dispense Refill Last Dose ALPRAZolam 1 MG tablet Take by mouth daily. 01/27/2022 Brexpiprazole 2 MG tablet Take by mouth daily. 01/27/2022 bumetanide 1 MG tablet Take 1 mg by mouth daily. 01/27/2022 Desvenlafaxine ER 100 MG Tab SR 24 HR Take by mouth daily. 01/27/2022 Desvenlafaxine Succinate 100 MG Tab SR 24 HR 01/27/2022 docusate 100 MG Cap take 1 capsule by mouth 2 times daily. 30 capsule 3 01/27/2022 docusate 100 MG capsule Take 200 mg by mouth Twice daily. 01/27/[address] Particles capsule DR Take 60 mg by mouth daily. 01/26/2022 eszopiclone 2 MG tablet Take by mouth at bedtime. 01/26/2022 at Unknown time hydrALAZINE 25 MG tablet Take 25 mg by mouth 3 times daily. 01/27/2022 losartan 50 MG tablet Take 50 mg by mouth daily. 01/27/2022 metOLazone 2.5 MG tablet Take 2.5 mg by mouth once a week. Tuesdays Past at Unknown time metoprolol 25 MG tab regular release Take 25 mg by mouth 2 times daily. 01/27/2022 ondansetron 4 MG Tab Dispersible tablet Take 4 mg by mouth Every 4 hours as needed. potassium chloride 20 MEQ Tab CR tablet Take by mouth daily. Is unsure of dose 01/27/2022 tiZANidine 4 MG tablet take 1 tablet by mouth three times a day if needed 01/26/2022 at Unknown time topiramate 25 MG tablet Take 50 mg every evening 60 tablet 0 01/26/2022 topiramate 25 MG tablet Take 50 mg by mouth. 01/26/2022 trazodone 300 MG tablet Take 300 mg by mouth At bedtime. 01/26/2022 at Unknown time albuterol 108 (90 Base) MCG/ACT Aero Soln inhaler Inhale 1 puff every 6 hours as needed. Unknown DULoxetine [address] Particles capsule DR Take 60 mg by mouth. ipratropium-albuterol 0.5-2.5 (3) MG/3ML nebulizer solution Take 3 mL by nebulization every 6 hoursas needed. Unknown losartan 50 MG tablet Take 50 mg by mouth. Allergies Allergen Reactions Fentanyl Itching Codeine Latex Hives and Rash Penicillins Review of Systems: Ten systems reviewed and found to be negative unless otherwise stated in the history and present illness. PHYSICAL EXAM: Patient Vitals for the past 8 hrs: BP Temp Temp src Pulse Resp SpO2 01/28/22 1200 128/59 97.5 F (36.4 C) Oral 89 16 96 % 01/28/22 0900 134/71 98.6 F (37 C) Oral 80 16 95 % General: Patient resting comfortably. Awake. No acute distress. HEENT: Normalcephalic, atraumatic. Neck: No JVD, no thyromegaly, no anterior or posterior lymphadenopathy. Cardiovascular: Regular rate and rhythm, without murmurs, rubs, or gallops. Respiratory: Bilateral Upper and Lower Lobes anterior and posteriorly without wheezes, rales, or rhonchi Abdomen: Soft, rounded, non-tender. Bowel sounds present x4 quadrants. No rebound. No organomegaly or masses noted upon deep palpation. Extremities: No edema, clubbing or cyanosis, pulses palpable 2+ distally. Skin: Warm, Dry, Intact. No obvious rashes or lesions noted. Neuro: Patient awake, alert, orientedx3. Cranial nerves 2-12 grossly intact upon seated examination. No focal defiects noted. M/S: No joint errythema or pain noted; no clubbing Diagnostics: Lab Results Component Value Date WBC 3.3 (L) 01/28/2022 HGB 12.9 01/28/2022 HCT 36.9 01/28/2022 PLATELET 94 (L) 01/28/2022 MCV 90.8 01/28/2022 @LASTMAGNESIUM(1D,2)@ Lab Results Component Value Date INR 1.0 07/14/2016 INR Specimen clotted - Result may not be accurate 07/08/2016 PT 12.6 07/14/2016 PT Specimen clotted - Result may not be accurate 07/08/2016 Lab Results Component Value Date CREATSERUM 0.93 01/28/2022 BUN 20 01/28/2022 SODIUM 140 01/28/2022 POTASSIUM 3.3 (L) 01/28/2022 CHLORIDE 102 01/28/2022 CO2 29 01/28/2022 Lab Results Component Value Date SPGRVTYUR 1.025 01/27/2022 GLUCOSEURINE NEGATIVE 01/27/2022 BILIRUBINURI NEGATIVE 01/27/2022 KETONESURINE TRACE (A) 01/27/2022 NITRITESURIN NEGATIVE 01/27/2022 LEUKOCESTUR SMALL (A) 01/27/2022 WBCURINE NEGATIVE 01/27/2022 RBCURINE NEGATIVE 01/27/2022 BACTERIAURIN NEGATIVE 01/27/2022 Full Code Scoring: Impression and Plan: Principal Problem: Chest pain - Troponins trended negative. No active chest pain. Chest pain is reproducible with cough. Outpatient follow-up with cardiology. Echocardiogram shows EF 70% Active Problems: Class 3 severe obesity due to excess calories with serious comorbidity and body mass index (BMI) of45.0 to 49.9 in adult - Encourage diet and lifestyle modifications. UTI (urinary tract infection) - rocephin. UC pending. Hypokalemia - replace and monitor. Vitamin D deficiency - replace. Dehydration - Give IVF. Improving. Anxiety Hypertensive urgency - resolved. Continue home medications. PT OT SS for dc planning GI/DVT prophylaxis with protonix and lovenox Flip Campos APRN-CONTRACTS DIRECTOR Completing history and physical for Dr. Bertrand. 3:11 PM Please note Portions of this note utilized [employer] dictation software, please excuse any typographical or grammatical errors Associated attestation - Av Bertrand MD - 01/28/2022 8:49 PM EDT Patient seen and examined. All testing reviewed. Discussed with CONTRACTS DIRECTOR and agree with A/P. CP. ED eval with elevated BP. Troponin negative. EKG normal. ECHO ordered. UA abnl. On ATB's. Objective: Blood pressure 111/58, pulse 65, temperature 98 F (36.7 C), temperature source Temporal, resp. rate18, height 1.651 m (5' 5 ), weight 126.1 kg (278 lb), SpO2 98 %. Results for orders placed or performed during the hospital encounter of 01/27/22 [facility] LAB 1 - NASOPHARYNGEAL Specimen: NASOPHARYNGEAL; Fluid/Swab Result Value Ref Range SARS COV 2 RNA, QL REAL TIME RT PCR NOT DETECTED NOT DETECTED NARRATIVE -1 This test was performed using isothermal KRANTHI and has been approved as Emergency Use Authorization (EUA) for the qualitative detection [id number]-SqH-4 nucleic acid. TROPONIN I, HIGH SENSITIVITY Result Value Ref Range TROPONIN I, HIGH SENSITIVITY 10 0 - 12 pg/mL CHEM 7 (LYTES,BUN,CREA,GLUC) Result Value Ref Range GLUCOSE 141 (H) 70 - 100 MG/DL BUN 24 (H) 7 - 20 MG/DL CREATININE SERUM 1.06 (H) 0.52 - 1.04 MG/DL SODIUM 136 136 - 145 MMOL/L POTASSIUM 2.9 (LL) 3.5 - 5.1 MMOL/L CHLORIDE 98 98 - 107 MMOL/L CARBON DIOXIDE (CO2) 25 22 - 30 MMOL/L ESTIMATED GFR, NON AMER 56 ml/min/1.73sq.m ESTIMATED GFR, 68 ml/min/1.73sq.m GFR COMMENT Average GFR for 60-69 years old = 85. CBC, EDIF, PLATELET Result Value Ref Range WBC (WHITE BLOOD COUNT) 5.4 3.6 - 11.0 10*3/uL RBC 4.96 4.0 - 5.4 10*6/uL HEMOGLOBIN (HGB) 15.6 12.0 - 16.0 G/DL HEMATOCRIT (HCT) 44.5 36.0 - 48.0 % MEAN CELL VOLUME 89.7 80.0 - 100.0 FL Mean Cell HGB 31.5 26.0 - 35.0 PG MEAN CELL HGB CONCENTRATION 35.1 27.0 - 37.0 G/DL RBC DISTRIBUTION 13.5 11.5 - 14.5 % PLATELET COUNT 129 (L) 130.0 - 400.0 10*3/uL MEAN PLATELET VOLUME 10.1 7.4 - 11.0 FL DIFFERENTIAL TYPE AUTO DIFF % NEUTROPHILS 55.3 37.0 - 75.0 % LYMPHOCYTE 34.0 20.0 - 55.0 % MONOCYTE % 5.6 0.0 - 10.0 % EOSINOPHIL % 4.4 0.0 - 11.0 % BASOPHIL % 0.7 0.0 - 2.0 % Absolute Neutrophil Count 3.0 1.4 - 6.5 10*3/uL LYMPHOCYTES, ABSOLUTE 1.80 1.2 - 3.4 10*3/uL MONOCYTES, ABSOLUTE 0.3 0.0 - 0.7 10*3/uL ABSOLUTE EOSINOPHIL COUNT 0.20 0.0 - 0.7 10*3/uL ABSOLUTE BASOPHIL COUNT 0.0 0.0 - 0.2 10*3/uL TSH Result Value Ref Range TSH 1.649 0.45 - 5.33 uIU/ML INFLUENZA A AND B, PCR Result Value Ref Range INFLUENZA A NEGATIVE NEGATIVE INFLUENZA B NEGATIVE NEGATIVE TROPONIN I, HIGH SENSITIVITY Result Value Ref Range TROPONIN I, HIGH SENSITIVITY 11 0 - 12 pg/mL CHEM 7 (LYTES,BUN,CREA,GLUC) Result Value Ref Range GLUCOSE 113 (H) 70 - 100 MG/DL BUN 20 7 - 20 MG/DL CREATININE SERUM 0.93 0.52 - 1.04 MG/DL SODIUM 140 136 - 145 MMOL/L POTASSIUM 2.5 (LL) 3.5 - 5.1 MMOL/L CHLORIDE 102 98 - 107 MMOL/L CARBON DIOXIDE (CO2) 29 22 - 30 MMOL/L ESTIMATED GFR, NON AMER 65 ml/min/1.73sq.m ESTIMATED GFR, 79 ml/min/1.73sq.m GFR COMMENT Average GFR for 60-69 years old = 85. CBC, EDIF, PLATELET Result Value Ref Range WBC (WHITE BLOOD COUNT) 3.3 (L) 3.6 - 11.0 10*3/uL RBC 4.06 4.0 - 5.4 10*6/uL HEMOGLOBIN (HGB) 12.9 12.0 - 16.0 G/DL HEMATOCRIT (HCT) 36.9 36.0 - 48.0 % MEAN CELL VOLUME 90.8 80.0 - 100.0 FL Mean Cell HGB 31.7 26.0 - 35.0 PG MEAN CELL HGB CONCENTRATION 35.0 27.0 - 37.0 G/DL RBC DISTRIBUTION 13.7 11.5 - 14.5 % PLATELET COUNT 94 (L) 130.0 - 400.0 10*3/uL MEAN PLATELET VOLUME 10.6 7.4 - 11.0 FL DIFFERENTIAL TYPE AUTO DIFF % NEUTROPHILS 42.6 37.0 - 75.0 % LYMPHOCYTE 42.9 20.0 - 55.0 % MONOCYTE % 7.8 0.0 - 10.0 % EOSINOPHIL % 6.1 0.0 - 11.0 % BASOPHIL % 0.6 0.0 - 2.0 % Absolute Neutrophil Count 1.4 1.4 - 6.5 10*3/uL LYMPHOCYTES, ABSOLUTE 1.40 1.2 - 3.4 10*3/uL MONOCYTES, ABSOLUTE 0.3 0.0 - 0.7 10*3/uL ABSOLUTE EOSINOPHIL COUNT 0.20 0.0 - 0.7 10*3/uL ABSOLUTE BASOPHIL COUNT 0.0 0.0 - 0.2 10*3/uL POTASSIUM Result Value Ref Range POTASSIUM 3.3 (L) 3.5 - 5.1 MMOL/L C REACTIVE PROTEIN Result Value Ref Range C-REACTIVE PROTEIN 8.7 0 - 10.0 MG/L LACTATE, BLOOD Result Value Ref Range LACTATE 1.7 0.7 - 2.0 mmol/L SEDIMENTATION RATE, AUTOMATED Result Value Ref Range SEDIMENTATION RATE AUTOMATED 4 0 - 30 MM/HR URINALYSIS, MACRO Result Value Ref Range COLOR, URINE YELLOW YELLOW APPEARANCE, URINE CLEAR CLEAR Specific [place], Urine 1.025 1.010 - 1.025 PH URINE 5.5 5.0 - 7.0 PROTEIN, URINE NEGATIVE NEGATIVE mg/dl GLUCOSE, URINE NEGATIVE NEGATIVE mg/dl KETONES, URINE TRACE (A) NEGATIVE mg/dl BILIRUBIN, URINE NEGATIVE NEGATIVE BLOOD, URINE DIPSTICK NEGATIVE NEGATIVE NITRITES, URINE NEGATIVE NEGATIVE UROBILINOGEN, URINE 0.2 0.2 - 1.0 E.U./dL LEUKOCYTE ESTERASE, URINE SMALL (A) NEGATIVE URINE MICROSCOPIC Result Value Ref Range WBC, URINE NEGATIVE NEGATIVE /HPF RBC, URINE NEGATIVE NEGATIVE /HPF Epithelial Cells UA NONE /HPF Mucus NEGATIVE NEGATIVE BACTERIA, URINE NEGATIVE NEGATIVE CRYSTALS, URINE NONE NONE CASTS, URINE NONE NONE /LPF COMMENT, URINE CULTURE CRITERIA NOT MET, NO CULTURE PERFORMED. HEENT: NC/AT, PERRLA, EOMI, fundi benign, external ears normal, OP normal. Neck: No LAD/thyromegaly. No JVD/bruit. Lungs: Clear to auscultation bilaterally. No wheezes, rales, ronchi. Heart: RRR. No S3/S4. Abdomen: Soft, NT/ND, normal bowel sounds, no HSM, no bruits. Extremities: No clubbing, cyanosis, edema. Normal pulses. Neurologic: CN II-XII intact. Strength/DTR's/sensation symmetric. Cerebellar function normal. Skin: No rash or suspicious lesions. Musculoskeletal: No edema, redness, warmth, deformities. Psychiatric: Alert and oriented. Affect and mood normal. Av Bertrand MD 01/28/2022 [facility]05-10-[facility]22 History and physical note* Flip Campos, EXAMINATION SCORER- CONTRACTS DIRECTOR - 01/28/2022 3:11 PM EDT [facility] History and Physical Examination 01/28/22 3:11 PM Chief Complaint: Chief Complaint Patient presents with Chest Pain Chest pain, weakness, tachycardia, shaky, and high blood pressure since yesterday History of Present Illness: Patient is a 61 y.o. female presents to [facility] for evaluation of not feeling well. Symptomsstarted yesterday. She states she has had palpitations, felt shakey and her blood pressure has beenrunning high. She has generalized weakness. She has nausea and she thinks she is dehydrated. She has a 9/10 diffuse headache. She states that when it gets this bad she has to get a shot of a strong narcotic. She has chest pain. She states everything hurts. She states her blood pressure has been out of control. She has been running over 200 systolic at home per patient. She states she has seen her family doctor for it and they can't get it under control. She has nausea and states she hasn't been eating well. She thinks she is dehydrated. She has dizziness and a headache. No calf pain or swelling. In the emergency department basic laboratory values were obtained. Patient was found to have a urinary tract infection. Troponins are negative. Echocardiogram shows an EF of 70%. Patient did have hypokalemia which has improved. Patient does have urinary tract infection was started on Rocephin. She was admitted to the hospital for ACS rule out. Objective: Patient Active Problem List Diagnosis Date Noted UTI (urinary tract infection) 01/28/2022 Hypokalemia 01/28/2022 Vitamin D deficiency 01/28/2022 Dehydration 01/28/2022 Anxiety 01/28/2022 Chronic hepatitis C virus infection 01/28/2022 Hypertensive urgency 01/28/2022 Chest pain 01/27/2022 Left upper quadrant abdominal pain 10/24/2020 Added automatically from request for surgery [id number] S/P bariatric surgery 10/24/2020 Added automatically from request for surgery [id number] S/P hernia repair 07/16/2016 Class 3 severe obesity due to excess calories with serious comorbidity and body mass index (BMI) of45.0 to 49.9 in adult Ventral hernia, unspecified, without mention of obstruction or gangrene 09/30/2013 Past Medical History: Diagnosis Date Adverse drug reaction Possible drug reaction to Sovaldi and Ribavirin but not confirmed. Anxiety Chronic hepatitis C without mention of hepatic coma Depression Hernia of abdominal cavity 2011 Hypertension Kidney infection Obesity Shingles Past Surgical History: Procedure Laterality Date EGD DIAGNOSTIC N/A 11/13/2020 Laterality: N/A; Surgeon: Isael Hall MD; Location: [facility] ENDOSCOPY REPAIR HERNIA VENTRAL OPEN W/ MESH N/A 07/16/2016 Laterality: N/A; Surgeon: Jake Hurtado MD; Location: [facility] MAIN OR HEART CATHETERIZATION Apr 2015 GASTRIC BYPASS 1997 HYSTERECTOMY 1988 BACK SURGERY HARDWARE L 4-5 CERVICAL LAMINECTOMY C 4-5 HERNIA REPAIR x4 Social History Tobacco Use Smoking status: Former Smoker Packs/day: 0.30 Years: 30.00 Pack years: 9.00 Types: Cigarettes Quit date: 02/18/2015 Years since quittin.9 Smokeless tobacco: Never Used Substance Use Topics Alcohol use: Yes Comment: occasionally Family History Problem Relation Age of Onset Stroke Mother TIA -04/29/16 Coronary Artery Disease Father Other - Specify Father Hypertension Father Dementia Father Heart Failure Father Hypertension Brother Medications Prior to Admission Medication Sig Dispense Refill Last Dose ALPRAZolam 1 MG tablet Take by mouth daily. 01/27/2022 Brexpiprazole 2 MG tablet Take by mouth daily. 01/27/2022 bumetanide 1 MG tablet Take 1 mg by mouth daily. 01/27/2022 Desvenlafaxine ER 100 MG Tab SR 24 HR Take by mouth daily. 01/27/2022 Desvenlafaxine Succinate 100 MG Tab SR 24 HR 01/27/2022 docusate 100 MG Cap take 1 capsule by mouth 2 times daily. 30 capsule 3 01/27/2022 docusate 100 MG capsule Take 200 mg by mouth Twice daily. 01/27/2022 DULox[address] Particles capsule DR Take 60 mg by mouth daily. 01/26/2022 eszopiclone 2 MG tablet Take by mouth at bedtime. 01/26/2022 at Unknown time hydrALAZINE 25 MG tablet Take 25 mg by mouth 3 times daily. 01/27/2022 losartan 50 MG tablet Take 50 mg by mouth daily. 01/27/2022 metOLazone 2.5 MG tablet Take 2.5 mg by mouth once a week. Tuesdays Past Week at Unknown time metoprolol 25 MG tab regular release Take 25 mg by mouth 2 times daily. 01/27/2022 ondansetron 4 MG Tab Dispersible tablet Take 4 mg by mouth Every 4 hours as needed. potassium chloride 20 MEQ Tab CR tablet Take by mouth daily. Is unsure of dose 01/27/2022 tiZANidine 4 MG tablet take 1 tablet by mouth three times a day if needed 01/26/2022 at Unknown time topiramate 25 MG tablet Take 50 mg every evening 60 tablet 0 01/26/2022 topiramate 25 MG tablet Take 50 mg by mouth. 01/26/2022 trazodone 300 MG tablet Take 300 mg by mouth At bedtime. 01/26/2022 at Unknown time albuterol 108 (90 Base) MCG/ACT Aero Soln inhaler Inhale 1 puff every 6 hours as needed. Unknown DULoxetine [address] Particles capsule DR Take 60 mg by mouth. ipratropium-albuterol 0.5-2.5 (3) MG/3ML nebulizer solution Take 3 mL by nebulization every 6 hoursas needed. Unknown losartan 50 MG tablet Take 50 mg by mouth. Allergies Allergen Reactions Fentanyl Itching Codeine Latex Hives and Rash Penicillins Review of Systems: Ten systems reviewed and found to be negative unless otherwise stated in the history and present illness. PHYSICAL EXAM: Patient Vitals for the past 8 hrs: BP Temp Temp src Pulse Resp SpO2 01/28/22 1200 128/59 97.5 F (36.4 C) Oral 89 16 96 % 01/28/22 0900 134/71 98.6 F (37 C) Oral 80 16 95 % General: Patient resting comfortably. Awake. No acute distress. HEENT: Normalcephalic, atraumatic. Neck: No JVD, no thyromegaly, no anterior or posterior lymphadenopathy. Cardiovascular: Regular rate and rhythm, without murmurs, rubs, or gallops. Respiratory: Bilateral Upper and Lower Lobes anterior and posteriorly without wheezes, rales, or rhonchi Abdomen: Soft, rounded, non-tender. Bowel sounds present x4 quadrants. No rebound. No organomegaly or masses noted upon deep palpation. Extremities: No edema, clubbing or cyanosis, pulses palpable 2+ distally. Skin: Warm, Dry, Intact. No obvious rashes or lesions noted. Neuro: Patient awake, alert, orientedx3. Cranial nerves 2-12 grossly intact upon seated examination. No focal defiects noted. M/S: No joint errythema or pain noted; no clubbing Diagnostics: Lab Results Component Value Date WBC 3.3 (L) 01/28/2022 HGB 12.9 01/28/2022 HCT 36.9 01/28/2022 PLATELET 94 (L) 01/28/2022 MCV 90.8 01/28/2022 @LASTMAGNESIUM(1D,2)@ Lab Results Component Value Date INR 1.0 07/14/2016 INR Specimen clotted - Result may not be accurate 07/08/2016 PT 12.6 07/14/2016 PT Specimen clotted - Result may not be accurate 07/08/2016 Lab Results Component Value Date CREATSERUM 0.93 01/28/2022 BUN 20 01/28/2022 SODIUM 140 01/28/2022 POTASSIUM 3.3 (L) 01/28/2022 CHLORIDE 102 01/28/2022 CO2 29 01/28/2022 Lab Results Component Value Date SPGRVTYUR 1.025 01/27/2022 GLUCOSEURINE NEGATIVE 01/27/2022 BILIRUBINURI NEGATIVE 01/27/2022 KETONESURINE TRACE (A) 01/27/2022 NITRITESURIN NEGATIVE 01/27/2022 LEUKOCESTUR SMALL (A) 01/27/2022 WBCURINE NEGATIVE 01/27/2022 RBCURINE NEGATIVE 01/27/2022 BACTERIAURIN NEGATIVE 01/27/2022 Full Code Scoring: Impression and Plan: Principal Problem: Chest pain - Troponins trended negative. No active chest pain. Chest pain is reproducible with cough. Outpatient follow-up with cardiology. Echocardiogram shows EF 70% Active Problems: Class 3 severe obesity due to excess calories with serious comorbidity and body mass index (BMI) of45.0 to 49.9 in adult - Encourage diet and lifestyle modifications. UTI (urinary tract infection) - rocephin. UC pending. Hypokalemia - replace and monitor. Vitamin D deficiency - replace. Dehydration - Give IVF. Improving. Anxiety Hypertensive urgency - resolved. Continue home medications. PT OT SS for dc planning GI/DVT prophylaxis with protonix and lovenox Flip Campos EXAMINATION SCORER-CONTRACTS DIRECTOR Completing history and physical for Dr. Bertrand. 3:11 PM Please note Portions of this note utilized [employer] dictation software, please excuse any typographical or grammatical errors Associated attestation - Av Bertrand MD - 01/28/2022 8:49 PM EDT Patient seen and examined. All testing reviewed. Discussed with CONTRACTS DIRECTOR and agree with A/P. CP. ED eval with elevated BP. Troponin negative. EKG normal. ECHO ordered. UA abnl. On ATB's. Objective: Blood pressure 111/58, pulse 65, temperature 98 F (36.7 C), temperature source Temporal, resp. rate18, height 1.651 m (5' 5 ), weight 126.1 kg (278 lb), SpO2 98 %. Results for orders placed or performed during the hospital encounter of 01/27/22 [facility] 1 - NASOPHARYNGEAL Specimen: NASOPHARYNGEAL; Fluid/Swab Result Value Ref Range SARS COV 2 RNA, QL REAL TIME RT PCR NOT DETECTED NOT DETECTED NARRATIVE -1 This test was performed using isothermal KRANTHI and has been approved as Emergency Use Authorization (EUA) for the qualitative detection [id number] nucleic acid. TROPONIN I, HIGH SENSITIVITY Result Value Ref Range TROPONIN I, HIGH SENSITIVITY 10 0 - 12 pg/mL CHEM 7 (LYTES,BUN,CREA,GLUC) Result Value Ref Range GLUCOSE 141 (H) 70 - 100 MG/DL BUN 24 (H) 7 - 20 MG/DL CREATININE SERUM 1.06 (H) 0.52 - 1.04 MG/DL SODIUM 136 136 - 145 MMOL/L POTASSIUM 2.9 (LL) 3.5 - 5.1 MMOL/L CHLORIDE 98 98 - 107 MMOL/L CARBON DIOXIDE (CO2) 25 22 - 30 MMOL/L ESTIMATED GFR, NON AMER 56 ml/min/1.73sq.m ESTIMATED GFR, 68 ml/min/1.73sq.m GFR COMMENT Average GFR for 60-69 years old = 85. CBC, EDIF, PLATELET Result Value Ref Range WBC (WHITE BLOOD COUNT) 5.4 3.6 - 11.0 10*3/uL RBC 4.96 4.0 - 5.4 10*6/uL HEMOGLOBIN (HGB) 15.6 12.0 - 16.0 G/DL HEMATOCRIT (HCT) 44.5 36.0 - 48.0 % MEAN CELL VOLUME 89.7 80.0 - 100.0 FL Mean Cell HGB 31.5 26.0 - 35.0 PG MEAN CELL HGB CONCENTRATION 35.1 27.0 - 37.0 G/DL RBC DISTRIBUTION 13.5 11.5 - 14.5 % PLATELET COUNT 129 (L) 130.0 - 400.0 10*3/uL MEAN PLATELET VOLUME 10.1 7.4 - 11.0 FL DIFFERENTIAL TYPE AUTO DIFF % NEUTROPHILS 55.3 37.0 - 75.0 % LYMPHOCYTE 34.0 20.0 - 55.0 % MONOCYTE % 5.6 0.0 - 10.0 % EOSINOPHIL % 4.4 0.0 - 11.0 % BASOPHIL % 0.7 0.0 - 2.0 % Absolute Neutrophil Count 3.0 1.4 - 6.5 10*3/uL LYMPHOCYTES, ABSOLUTE 1.80 1.2 - 3.4 10*3/uL MONOCYTES, ABSOLUTE 0.3 0.0 - 0.7 10*3/uL ABSOLUTE EOSINOPHIL COUNT 0.20 0.0 - 0.7 10*3/uL ABSOLUTE BASOPHIL COUNT 0.0 0.0 - 0.2 10*3/uL TSH Result Value Ref Range TSH 1.649 0.45 - 5.33 uIU/ML INFLUENZA A AND B, PCR Result Value Ref Range INFLUENZA A NEGATIVE NEGATIVE INFLUENZA B NEGATIVE NEGATIVE TROPONIN I, HIGH SENSITIVITY Result Value Ref Range TROPONIN I, HIGH SENSITIVITY 11 0 - 12 pg/mL CHEM 7 (LYTES,BUN,CREA,GLUC) Result Value Ref Range GLUCOSE 113 (H) 70 - 100 MG/DL BUN 20 7 - 20 MG/DL CREATININE SERUM 0.93 0.52 - 1.04 MG/DL SODIUM 140 136 - 145 MMOL/L POTASSIUM 2.5 (LL) 3.5 - 5.1 MMOL/L CHLORIDE 102 98 - 107 MMOL/L CARBON DIOXIDE (CO2) 29 22 - 30 MMOL/L ESTIMATED GFR, NON AMER 65 ml/min/1.73sq.m ESTIMATED GFR, 79 ml/min/1.73sq.m GFR COMMENT Average GFR for 60-69 years old = 85. CBC, EDIF, PLATELET Result Value Ref Range WBC (WHITE BLOOD COUNT) 3.3 (L) 3.6 - 11.0 10*3/uL RBC 4.06 4.0 - 5.4 10*6/uL HEMOGLOBIN (HGB) 12.9 12.0 - 16.0 G/DL HEMATOCRIT (HCT) 36.9 36.0 - 48.0 % MEAN CELL VOLUME 90.8 80.0 - 100.0 FL Mean Cell HGB 31.7 26.0 - 35.0 PG MEAN CELL HGB CONCENTRATION 35.0 27.0 - 37.0 G/DL RBC DISTRIBUTION 13.7 11.5 - 14.5 % PLATELET COUNT 94 (L) 130.0 - 400.0 10*3/uL MEAN PLATELET VOLUME 10.6 7.4 - 11.0 FL DIFFERENTIAL TYPE AUTO DIFF % NEUTROPHILS 42.6 37.0 - 75.0 % LYMPHOCYTE 42.9 20.0 - 55.0 % MONOCYTE % 7.8 0.0 - 10.0 % EOSINOPHIL % 6.1 0.0 - 11.0 % BASOPHIL % 0.6 0.0 - 2.0 % Absolute Neutrophil Count 1.4 1.4 - 6.5 10*3/uL LYMPHOCYTES, ABSOLUTE 1.40 1.2 - 3.4 10*3/uL MONOCYTES, ABSOLUTE 0.3 0.0 - 0.7 10*3/uL ABSOLUTE EOSINOPHIL COUNT 0.20 0.0 - 0.7 10*3/uL ABSOLUTE BASOPHIL COUNT 0.0 0.0 - 0.2 10*3/uL POTASSIUM Result Value Ref Range POTASSIUM 3.3 (L) 3.5 - 5.1 MMOL/L C REACTIVE PROTEIN Result Value Ref Range C-REACTIVE PROTEIN 8.7 0 - 10.0 MG/L LACTATE, BLOOD Result Value Ref Range LACTATE 1.7 0.7 - 2.0 mmol/L SEDIMENTATION RATE, AUTOMATED Result Value Ref Range SEDIMENTATION RATE AUTOMATED 4 0 - 30 MM/HR URINALYSIS, MACRO Result Value Ref Range COLOR, URINE YELLOW YELLOW APPEARANCE, URINE CLEAR CLEAR Specific [place], Urine 1.025 1.010 - 1.025 PH URINE 5.5 5.0 - 7.0 PROTEIN, URINE NEGATIVE NEGATIVE mg/dl GLUCOSE, URINE NEGATIVE NEGATIVE mg/dl KETONES, URINE TRACE (A) NEGATIVE mg/dl BILIRUBIN, URINE NEGATIVE NEGATIVE BLOOD, URINE DIPSTICK NEGATIVE NEGATIVE NITRITES, URINE NEGATIVE NEGATIVE UROBILINOGEN, URINE 0.2 0.2 - 1.0 E.U./dL LEUKOCYTE ESTERASE, URINE SMALL (A) NEGATIVE URINE MICROSCOPIC Result Value Ref Range WBC, URINE NEGATIVE NEGATIVE /HPF RBC, URINE NEGATIVE NEGATIVE /HPF Epithelial Cells UA NONE /HPF Mucus NEGATIVE NEGATIVE BACTERIA, URINE NEGATIVE NEGATIVE CRYSTALS, URINE NONE NONE CASTS, URINE NONE NONE /LPF COMMENT, URINE CULTURE CRITERIA NOT MET, NO CULTURE PERFORMED. HEENT: NC/AT, PERRLA, EOMI, fundi benign, external ears normal, OP normal. Neck: No LAD/thyromegaly. No JVD/bruit. Lungs: Clear to auscultation bilaterally. No wheezes, rales, ronchi. Heart: RRR. No S3/S4. Abdomen: Soft, NT/ND, normal bowel sounds, no HSM, no bruits. Extremities: No clubbing, cyanosis, edema. Normal pulses. Neurologic: CN II-XII intact. Strength/DTR's/sensation symmetric. Cerebellar function normal. Skin: No rash or suspicious lesions. Musculoskeletal: No edema, redness, warmth, deformities. Psychiatric: Alert and oriented. Affect and mood normal. Av Bertrand MD 01/28/2022 [facility]* Nursing Notes - Melvin Dodd RN - 01/28/2022 12:38 PM EDT No changes from prior assessment [facility]05-10-2022 Note* Nursing Notes - Jessenia Lawson RN - 01/28/2022 4:30 AM EDT Patient assessment unchanged from previous assessment. Patient sleeping at this time, call light inreach. [facility]05-10-2022 Note* Nursing Notes - Jessenia Lawson RN - 01/28/2022 2:20 AM EDT Patient SPO2 had decreased to 88% on room air. Per patient she does have sleep apnea. Patient stated she will not wear a CPAP however did accept nasal cannula. SPO2 has increased. Patient back to sleep at this time. Will continue to monitor. [facility]-10-[facility] Note* Nursing Notes - Jessenia Lawson RN - 01/28/2022 12:20 AM EDT Patient assessment unchanged from previous assessment. Patient is now sleeping comfortably with no signs or indicators of pain present. Call light in reach. [facility]* Nursing Notes - Jessenia Lawson RN - 01/27/2022 11:[address] Bertrand to notify of patient headache, unrelieved by nursing intervention and PRN Tylenol. New order for Toradol PRN Q8H. Also advised of patient request to take her home bedtime medications. Per Dr Bertrand new order to give home bedtime medications. Medications and dosages reviewed and ok'd. See MAR. [facility] Emergency department Note* Jose Antonio Low RN - 01/27/2022 10:03 PM EDT Patient transported to floor on environmental remediation specialist. Report given to Jessenia BACON [facility]05-[facility] Emergency department Note* Jose Antonio Low RN - 01/27/2022 10:03 PM EDT Patient transported to floor on environmental remediation specialist. Report given to Jessenia BACON * Shelley Brooks RN - 01/27/2022 7:53 PM EDT Room assignment [id number] * Jose Antonio Low RN - 01/27/2022 7:11 PM EDT Report received from Yesy BACON * Sandy Pratt RN - 01/27/2022 6:02 PM EDT Pt is on continues pulse ox * Yesy Bruno RN - 01/27/2022 5:12 PM EDT Michaela HAMMER aware of pts c/o headache and request for tylenol. * JAQUELIN Marrufo-C - 01/27/2022 4:58 PM EDT Emergency Department Report [facility] EMERGENCY DEPARTMENT Service Date:.01/27/22 PCP: Leticia Sylvester Chief Complaint: Chief Complaint Patient presents with Chest Pain Chest pain, weakness, tachycardia, shaky, and high blood pressure since yesterday HPI Micheline Fox is a 61 y.o. female presents to the ED today due to Patient comes to the ER not feeling well. Symptoms started yesterday. She states she has had palpitations, felt shakey and her blood pressure has been running high. She has generalized weakness. She has nausea and she thinks she is dehydrated. She has a 9/10 diffuse headache. She states that when it gets this bad she has to geta shot of a strong narcotic. She has chest pain. She states everything hurts. She states her blood pressure has been out of control. She has been running over 200 systolic at home per patient. She states she has seen her family doctor for it and they can't get it under control. She has nausea and states she hasn't been eating well. She thinks she is dehydrated. She has dizziness and a headache.No calf pain or swelling. Review of Systems: Review of Systems Constitutional: Positive for fatigue. Negative for fever. Respiratory: Negative for cough. Cardiovascular: Positive for chest pain and palpitations. Gastrointestinal: Positive for nausea. Genitourinary: Negative for difficulty urinating. Musculoskeletal: Positive for arthralgias and myalgias. Neurological: Positive for dizziness, weakness and headaches. Past Medical History: Past Medical History: Diagnosis Date Adverse drug reaction Possible drug reaction to Sovaldi and Ribavirin but not confirmed. Anxiety Chronic hepatitis C without mention of hepatic coma Depression Hernia of abdominal cavity 2011 Hypertension Kidney infection Obesity Shingles Past Surgical History: Past Surgical History: Procedure Laterality Date EGD DIAGNOSTIC N/A 11/13/2020 Laterality: N/A; Surgeon: Isael Hall MD; Location: [facility] ENDOSCOPY REPAIR HERNIA VENTRAL OPEN W/ MESH N/A 07/16/2016 Laterality: N/A; Surgeon: Jake Hurtado MD; Location: [facility] MAIN OR HEART CATHETERIZATION Apr 2015 GASTRIC BYPASS 1996 HYSTERECTOMY 1987 BACK SURGERY HARDWARE L 4-5 CERVICAL LAMINECTOMY C 4-5 HERNIA REPAIR x4 Allergies: Allergies Allergen Reactions Fentanyl Itching Codeine Latex Hives and Rash Penicillins Medications: Patient's Medications New Prescriptions No medications on file Previous Medications ALBUTEROL 108 (90 BASE) MCG/ACT AERO SOLN INHALER Inhale 1 puff every 6 hours as needed. ALPRAZOLAM 1 MG TABLET Take by mouth daily. BREXPIPRAZOLE 2 MG TABLET Take by mouth daily. BUMETANIDE 1 MG TABLET Take 1 mg by mouth daily. DESVENLAFAXINE ER 100 MG TAB SR 24 HR Take by mouth daily. DESVENLAFAXINE SUCCINATE 100 MG TAB SR 24 HR DOCUSATE 100 MG CAP take 1 capsule by mouth 2 times daily. DOCUSATE 100 MG CAPSULE Take 200 mg by mouth Twice daily. DULOXETINE [address] PARTICLES CAPSULE DR Take 60 mg by mouth daily. DULOXETINE [address] PARTICLES CAPSULE DR Take 60 mg by mouth. ESZOPICLONE (LUNESTA) 2 MG TABLET Take by mouth at bedtime. HYDRALAZINE 25 MG TABLET Take 25 mg by mouth 3 times daily. IPRATROPIUM-ALBUTEROL 0.5-2.5 (3) MG/3ML NEBULIZER SOLUTION Take 3 mL by nebulization every 6 hoursas needed. LOSARTAN 50 MG TABLET Take 50 mg by mouth daily. LOSARTAN 50 MG TABLET Take 50 mg by mouth. METOLAZONE 2.5 MG TABLET Take 2.5 mg by mouth once a week. Tuesdays METOPROLOL 25 MG TAB REGULAR RELEASE Take 25 mg by mouth 2 times daily. ONDANSETRON 4 MG TAB DISPERSIBLE TABLET Take 4 mg by mouth Every 4 hours as needed. POTASSIUM CHLORIDE 20 MEQ TAB CR TABLET Take by mouth daily. Is unsure of dose TIZANIDINE 4 MG TABLET take 1 tablet by mouth three times a day if needed TOPIRAMATE 25 MG TABLET Take 50 mg every evening TOPIRAMATE 25 MG TABLET Take 50 mg by mouth. TRAZODONE 300 MG TABLET Take 300 mg by mouth At bedtime. Modified Medications No medications on file Discontinued Medications No medications on file Family History: Family History Problem Relation Age of Onset Stroke Mother TIA -04/29/16 Coronary Artery Disease Father Other - Specify Father Hypertension Father Dementia Father Heart Failure Father Hypertension Brother Social History: Social History Socioeconomic History Marital status: Spouse name: Not on file Number of children: Not on file Years of education: Not on file Highest education level: Not on file Occupational History Not on file Tobacco Use Smoking status: Former Smoker Packs/day: 0.30 Years: 30.00 Pack years: 9.00 Types: Cigarettes Quit date: 02/18/2015 Years since quittin.9 Smokeless tobacco: Never Used Vaping Use Vaping Use: Former Substance and Sexual Activity Alcohol use: Yes Comment: occasionally Drug use: No Sexual activity: Not on file Other Topics Concern Not on file Social History Narrative Not on file Social Determinants of Health Financial Resource Strain: Not on file Food Insecurity: Not on file Transportation Needs: Not on file Physical Activity: Not on file Stress: Not on file Social Connections: Not on file Intimate Partner Violence: Not on file Housing Stability: Not on file Physical Exam: Physical Exam Vitals and nursing note reviewed. Constitutional: General: She is not in acute distress. Appearance: She is obese. She is not toxic-appearing or diaphoretic. HENT: Head: Normocephalic. Eyes: Pupils: Pupils are equal, round, and reactive to light. Cardiovascular: Rate and Rhythm: Normal rate. Pulmonary: Breath sounds: Normal breath sounds. Abdominal: Palpations: Abdomen is soft. Musculoskeletal: General: Normal range of motion. Skin: General: Skin is warm. Neurological: General: No focal deficit present. Mental Status: She is alert and oriented to person, place, and time. Cranial Nerves: No cranial nerve deficit. Vital Signs During ED Visit Patient Vitals for the past 24 hrs: BP Temp Temp src Pulse Resp SpO2 Height Weight 01/27/22 1906 169/84 -- -- 81 18 95 % -- -- 01/27/22 1820 182/90 -- -- 108 18 95 % -- -- 01/27/22 1800 164/78 -- -- 75 18 94 % -- -- 01/27/22 1706 180/87 -- -- 98 18 95 % -- -- 01/27/22 1605 -- -- -- -- -- 96 % -- -- 01/27/22 1603 (!) 171/104 98.6 F (37 C) Oral 108 20 96 % -- -- 01/27/22 1601 -- -- -- -- -- -- 1.651 m (5' 5 ) 126.1 kg (278 lb) Orders/Results: Orders Placed This Encounter [facility] 1 - NASOPHARYNGEAL XR CHEST AP PORTABLE CT HEAD WITHOUT CONTRAST Troponin I, High sensitivity CHEM 7 (LYTES,BUN,CREA,GLUC) CBC, EDIF, PLATELET TSH INFLUENZA A AND B, PCR Troponin I, High sensitivity ECG hydrALAZINE 25 MG tablet Desvenlafaxine Succinate 100 MG Tab SR 24 HR losartan 50 MG tablet docusate 100 MG capsule DULoxetine [address] Particles capsule DR tiZANidine 4 MG tablet ondansetron 4 MG Tab Dispersible tablet topiramate 25 MG tablet potassium chloride (K-DUR) tablet ER 40 mEq cloNIDine (CATAPRES) tablet 0.1 mg acetaminophen (TYLENOL) tablet 650 mg sodium chloride 0.9% IV solution 1,000 mL ondansetron 4mg/2ml (ZOFRAN) injection 4 mg morphine (PF) injection 2 mg hydrALAZINE (APRESOLINE) injection 5 mg ondansetron 4mg/2ml (ZOFRAN) injection 4 mg morphine (PF) injection 2 mg sodium chloride 0.9% IV solution URINALYSIS, MACRO URINE MICROSCOPIC Results for orders placed or performed during the hospital encounter of 01/27/22 [facility] 1 - NASOPHARYNGEAL Specimen: NASOPHARYNGEAL; Fluid/Swab Result Value Ref Range SARS COV 2 RNA, QL REAL TIME RT PCR NOT DETECTED NOT DETECTED NARRATIVE -1 This test was performed using isothermal KRANTHI and has been approved as Emergency Use Authorization (EUA) for the qualitative detection [id number] nucleic acid. TROPONIN I, HIGH SENSITIVITY Result Value Ref Range TROPONIN I, HIGH SENSITIVITY 10 0 - 12 pg/mL CHEM 7 (LYTES,BUN,CREA,GLUC) Result Value Ref Range GLUCOSE 141 (H) 70 - 100 MG/DL BUN 24 (H) 7 - 20 MG/DL CREATININE SERUM 1.06 (H) 0.52 - 1.04 MG/DL SODIUM 136 136 - 145 MMOL/L POTASSIUM 2.9 (LL) 3.5 - 5.1 MMOL/L CHLORIDE 98 98 - 107 MMOL/L CARBON DIOXIDE (CO2) 25 22 - 30 MMOL/L ESTIMATED GFR, NON AMER 56 ml/min/1.73sq.m ESTIMATED GFR, 68 ml/min/1.73sq.m GFR COMMENT Average GFR for 60-69 years old = 85. CBC, EDIF, PLATELET Result Value Ref Range WBC (WHITE BLOOD COUNT) 5.4 3.6 - 11.0 10*3/uL RBC 4.96 4.0 - 5.4 10*6/uL HEMOGLOBIN (HGB) 15.6 12.0 - 16.0 G/DL HEMATOCRIT (HCT) 44.5 36.0 - 48.0 % MEAN CELL VOLUME 89.7 80.0 - 100.0 FL Mean Cell HGB 31.5 26.0 - 35.0 PG MEAN CELL HGB CONCENTRATION 35.1 27.0 - 37.0 G/DL RBC DISTRIBUTION 13.5 11.5 - 14.5 % PLATELET COUNT 129 (L) 130.0 - 400.0 10*3/uL MEAN PLATELET VOLUME 10.1 7.4 - 11.0 FL DIFFERENTIAL TYPE AUTO DIFF % NEUTROPHILS 55.3 37.0 - 75.0 % LYMPHOCYTE 34.0 20.0 - 55.0 % MONOCYTE % 5.6 0.0 - 10.0 % EOSINOPHIL % 4.4 0.0 - 11.0 % BASOPHIL % 0.7 0.0 - 2.0 % Absolute Neutrophil Count 3.0 1.4 - 6.5 10*3/uL LYMPHOCYTES, ABSOLUTE 1.80 1.2 - 3.4 10*3/uL MONOCYTES, ABSOLUTE 0.3 0.0 - 0.7 10*3/uL ABSOLUTE EOSINOPHIL COUNT 0.20 0.0 - 0.7 10*3/uL ABSOLUTE BASOPHIL COUNT 0.0 0.0 - 0.2 10*3/uL TSH Result Value Ref Range TSH 1.649 0.45 - 5.33 uIU/ML INFLUENZA A AND B, PCR Result Value Ref Range INFLUENZA A NEGATIVE NEGATIVE INFLUENZA B NEGATIVE NEGATIVE TROPONIN I, HIGH SENSITIVITY Result Value Ref Range TROPONIN I, HIGH SENSITIVITY 11 0 - 12 pg/mL URINALYSIS, MACRO Result Value Ref Range COLOR, URINE YELLOW YELLOW APPEARANCE, URINE CLEAR CLEAR Specific [place], Urine 1.025 1.010 - 1.025 PH URINE 5.5 5.0 - 7.0 PROTEIN, URINE NEGATIVE NEGATIVE mg/dl GLUCOSE, URINE NEGATIVE NEGATIVE mg/dl KETONES, URINE TRACE (A) NEGATIVE mg/dl BILIRUBIN, URINE NEGATIVE NEGATIVE BLOOD, URINE DIPSTICK NEGATIVE NEGATIVE NITRITES, URINE NEGATIVE NEGATIVE UROBILINOGEN, URINE 0.2 0.2 - 1.0 E.U./dL LEUKOCYTE ESTERASE, URINE SMALL (A) NEGATIVE URINE MICROSCOPIC Result Value Ref Range WBC, URINE NEGATIVE NEGATIVE /HPF RBC, URINE NEGATIVE NEGATIVE /HPF Epithelial Cells UA NONE /HPF Mucus NEGATIVE NEGATIVE BACTERIA, URINE NEGATIVE NEGATIVE CRYSTALS, URINE NONE NONE CASTS, URINE NONE NONE /LPF COMMENT, URINE CULTURE CRITERIA NOT MET, NO CULTURE PERFORMED. Radiographic Imaging CT HEAD WITHOUT CONTRAST Final Result IMPRESSION: Incidental small left parietal meningioma unchanged. XR CHEST AP PORTABLE Final Result Impression: No acute cardiopulmonary abnormality. Procedures: Procedures ED Summary/MDM MDM Number of Diagnoses or Management Options Chest pain, unspecified type Hypokalemia Diagnosis management comments: Patient's potassium is low here. Patient was given some oral potassium. She is dehydrated and IV fluids were started. First a cardiac enzymes are negative. Her EKG shows a sinus tachycardia with ventricular rate of 123 a WA of 170 and a QRS of 74. QT is 329. At this time no STEMI. Again for some chronic enzymes are negative. Patient's blood pressure is elevated here but it has improved after some medications. Her COVID and influenza A and B are negative. Urinalysis negative for UTI. Patient was given morphine for headaches per patient request. Patient continues to have a headache. CT of the head is negative for acute brain bleed. Labs show a normal white bloodcell count. As stated before her potassium is low. Her kidney functions are up. I did speak with Dr. Blanton who agreed to admit the patient. We will continue monitoring. Medical Decision Making Presentation concerning for a cardiac source of chest pain including a cardiac ischemia, ACS. The patient's chest x-ray was within normal limits making significant pneumothorax, pneumonia, lungabscess, or aortic pathology much less likely. The patient's EKG does not show changes consistent with pericarditis. Unlikely to be aortic dissection, pulmonary embolism, pneumonia, pleural effusion. Laboratory evaluation with normal electrolytes, negative troponin, EKG does not show a STEMI at this time, normal CBC, normal chest x-ray. Improvement in chest pain in the ER. Discussed with mayraphysician and my attending who accepted patient for admission. Heparinization was deferred given the absence of ongoing chest pain, normal cardiac enzymes and absence of concerning/dynamic EKG changes. The patient was chest pain-free prior to admission with the above chest pain- appropriate interventions and the patient is appropriate for admission. Plan: Admit to hospital for further evaluation and treatment Amount and/or Complexity of Data Reviewed Clinical lab tests: ordered and reviewed Tests in the radiology section of CPT : ordered and reviewed Discussion of test results with the performing providers: yes Obtain history from someone other than the patient: no Discuss the patient with other providers: yes Risk of Complications, Morbidity, and/or Mortality Presenting problems: low Diagnostic procedures: low Management options: low Patient Progress Patient progress: stable Clinical Impression: 1. Hypokalemia 2. Chest pain, unspecified type No follow-ups on file. New Prescriptions No medications on file Discontinued Medications No medications on file An After Visit Summary was printed and given to the patient with above information. . Portions of this chart were created using [employer] electronic dictation. Please excuse any typographical or grammatical errors contained herein. Plan is to admit. Michaela Barragan PA-C 01/27/221919 Associated attestation - Silas Starkey MD - 01/27/2022 7:58 PM EDT Attending note: I was available for consultation regarding this patient. The patient was seen, evaluated and dispositioned by the mid-level provider independently. * Wilma Bonilla RN - 01/27/2022 3:57 PM EDT Bed: E009 Expected date: Expected time: Means of arrival: Comments: documented in this [facility]05-09-2022 Emergency department Note* Shelley Brooks RN - 01/27/2022 7:53 PM EDT Room assignment [id number] [facility]05-09-2022 Emergency department Note* Jose Antonio Low RN - 01/27/2022 7:11 PM EDT Report received from Yesy BACON [facility]05-09-2022 Emergency department Note* Sandy Pratt RN - 01/27/2022 6:02 PM EDT Pt is on continues pulse ox [facility]05-09-2022 Emergency department Note* Yesy Bruno RN - 01/27/2022 5:12 PM EDT Michaela HAMMER aware of pts c/o headache and request for tylenol. [facility]05-09-2022 Physician Emergency department Note* JAQUELIN Marrufo-Stacia - 01/27/2022 4:58 PM EDT Emergency Department Report [facility] EMERGENCY DEPARTMENT Service Date:.01/27/22 PCP: Leticia Sylvester Chief Complaint: Chief Complaint Patient presents with Chest Pain Chest pain, weakness, tachycardia, shaky, and high blood pressure since yesterday HPI Micheline Fox is a 61 y.o. female presents to the ED today due to Patient comes to the ER not feeling well. Symptoms started yesterday. She states she has had palpitations, felt shakey and her blood pressure has been running high. She has generalized weakness. She has nausea and she thinks she is dehydrated. She has a 9/10 diffuse headache. She states that when it gets this bad she has to geta shot of a strong narcotic. She has chest pain. She states everything hurts. She states her blood pressure has been out of control. She has been running over 200 systolic at home per patient. She states she has seen her family doctor for it and they can't get it under control. She has nausea and states she hasn't been eating well. She thinks she is dehydrated. She has dizziness and a headache.No calf pain or swelling. Review of Systems: Review of Systems Constitutional: Positive for fatigue. Negative for fever. Respiratory: Negative for cough. Cardiovascular: Positive for chest pain and palpitations. Gastrointestinal: Positive for nausea. Genitourinary: Negative for difficulty urinating. Musculoskeletal: Positive for arthralgias and myalgias. Neurological: Positive for dizziness, weakness and headaches. Past Medical History: Past Medical History: Diagnosis Date Adverse drug reaction Possible drug reaction to Sovaldi and Ribavirin but not confirmed. Anxiety Chronic hepatitis C without mention of hepatic coma Depression Hernia of abdominal cavity 2011 Hypertension Kidney infection Obesity Shingles Past Surgical History: Past Surgical History: Procedure Laterality Date EGD DIAGNOSTIC N/A 11/13/2020 Laterality: N/A; Surgeon: Isael Hall MD; Location: [facility] ENDOSCOPY REPAIR HERNIA VENTRAL OPEN W/ MESH N/A 07/16/2016 Laterality: N/A; Surgeon: Jake Hurtado MD; Location: [facility] MAIN OR HEART CATHETERIZATION Apr 2015 GASTRIC BYPASS 1996 HYSTERECTOMY 1987 BACK SURGERY HARDWARE L 4-5 CERVICAL LAMINECTOMY C 4-5 HERNIA REPAIR x4 Allergies: Allergies Allergen Reactions Fentanyl Itching Codeine Latex Hives and Rash Penicillins Medications: Patient's Medications New Prescriptions No medications on file Previous Medications ALBUTEROL 108 (90 BASE) MCG/ACT AERO SOLN INHALER Inhale 1 puff every 6 hours as needed. ALPRAZOLAM 1 MG TABLET Take by mouth daily. BREXPIPRAZOLE 2 MG TABLET Take by mouth daily. BUMETANIDE 1 MG TABLET Take 1 mg by mouth daily. DESVENLAFAXINE ER 100 MG TAB SR 24 HR Take by mouth daily. DESVENLAFAXINE SUCCINATE 100 MG TAB SR 24 HR DOCUSATE 100 MG CAP take 1 capsule by mouth 2 times daily. DOCUSATE 100 MG CAPSULE Take 200 mg by mouth Twice daily. DULOXETINE [address] PARTICLES [address]LE DR Take 60 mg by mouth daily. DULOXETINE [address] PARTIC[address]LE DR Take 60 mg by mouth. ESZOPICLONE (LUNESTA) 2 MG TABLET Take by mouth at bedtime. HYDRALAZINE 25 MG TABLET Take 25 mg by mouth 3 times daily. IPRATROPIUM-ALBUTEROL 0.5-2.5 (3) MG/3ML NEBULIZER SOLUTION Take 3 mL by nebulization every 6 hoursas needed. LOSARTAN 50 MG TABLET Take 50 mg by mouth daily. LOSARTAN 50 MG TABLET Take 50 mg by mouth. METOLAZONE 2.5 MG TABLET Take 2.5 mg by mouth once a week. Tuesdays METOPROLOL 25 MG TAB REGULAR RELEASE Take 25 mg by mouth 2 times daily. ONDANSETRON 4 MG TAB DISPERSIBLE TABLET Take 4 mg by mouth Every 4 hours as needed. POTASSIUM CHLORIDE 20 MEQ TAB CR TABLET Take by mouth daily. Is unsure of dose TIZANIDINE 4 MG TABLET take 1 tablet by mouth three times a day if needed TOPIRAMATE 25 MG TABLET Take 50 mg every evening TOPIRAMATE 25 MG TABLET Take 50 mg by mouth. TRAZODONE 300 MG TABLET Take 300 mg by mouth At bedtime. Modified Medications No medications on file Discontinued Medications No medications on file Family History: Family History Problem Relation Age of Onset Stroke Mother TIA -04/29/16 Coronary Artery Disease Father Other - Specify Father Hypertension Father Dementia Father Heart Failure Father Hypertension Brother Social History: Social History Socioeconomic History Marital status: Spouse name: Not on file Number of children: Not on file Years of education: Not on file Highest education level: Not on file Occupational History Not on file Tobacco Use Smoking status: Former Smoker Packs/day: 0.30 Years: 30.00 Pack years: 9.00 Types: Cigarettes Quit date: 02/18/2015 Years since quittin.9 Smokeless tobacco: Never Used Vaping Use Vaping Use: Former Substance and Sexual Activity Alcohol use: Yes Comment: occasionally Drug use: No Sexual activity: Not on file Other Topics Concern Not on file Social History Narrative Not on file Social Determinants of Health Financial Resource Strain: Not on file Food Insecurity: Not on file Transportation Needs: Not on file Physical Activity: Not on file Stress: Not on file Social Connections: Not on file Intimate Partner Violence: Not on file Housing Stability: Not on file Physical Exam: Physical Exam Vitals and nursing note reviewed. Constitutional: General: She is not in acute distress. Appearance: She is obese. She is not toxic-appearing or diaphoretic. HENT: Head: Normocephalic. Eyes: Pupils: Pupils are equal, round, and reactive to light. Cardiovascular: Rate and Rhythm: Normal rate. Pulmonary: Breath sounds: Normal breath sounds. Abdominal: Palpations: Abdomen is soft. Musculoskeletal: General: Normal range of motion. Skin: General: Skin is warm. Neurological: General: No focal deficit present. Mental Status: She is alert and oriented to person, place, and time. Cranial Nerves: No cranial nerve deficit. Vital Signs During ED Visit Patient Vitals for the past 24 hrs: BP Temp Temp src Pulse Resp SpO2 Height Weight 01/27/22 1906 169/84 -- -- 81 18 95 % -- -- 01/27/22 1820 182/90 -- -- 108 18 95 % -- -- 01/27/22 1800 164/78 -- -- 75 18 94 % -- -- 01/27/22 1706 180/87 -- -- 98 18 95 % -- -- 01/27/22 1605 -- -- -- -- -- 96 % -- -- 01/27/22 1603 (!) 171/104 98.6 F (37 C) Oral 108 20 96 % -- -- 01/27/22 1601 -- -- -- -- -- -- 1.651 m (5' 5 ) 126.1 kg (278 lb) Orders/Results: Orders Placed This Encounter [facility] - NASOPHARYNGEAL XR CHEST AP PORTABLE CT HEAD WITHOUT CONTRAST Troponin I, High sensitivity CHEM 7 (LYTES,BUN,CREA,GLUC) CBC, EDIF, PLATELET TSH INFLUENZA A AND B, PCR Troponin I, High sensitivity ECG hydrALAZINE 25 MG tablet Desvenlafaxine Succinate 100 MG Tab SR 24 HR losartan 50 MG tablet docusate 100 MG capsule DULoxetine [address] Particles capsule DR tiZANidine 4 MG tablet ondansetron 4 MG Tab Dispersible tablet topiramate 25 MG tablet potassium chloride (K-DUR) tablet ER 40 mEq cloNIDine (CATAPRES) tablet 0.1 mg acetaminophen (TYLENOL) tablet 650 mg sodium chloride 0.9% IV solution 1,000 mL ondansetron 4mg/2ml (ZOFRAN) injection 4 mg morphine (PF) injection 2 mg hydrALAZINE (APRESOLINE) injection 5 mg ondansetron 4mg/2ml (ZOFRAN) injection 4 mg morphine (PF) injection 2 mg sodium chloride 0.9% IV solution URINALYSIS, MACRO URINE MICROSCOPIC Results for orders placed or performed during the hospital encounter of 01/27/22 [facility] - NASOPHARYNGEAL Specimen: NASOPHARYNGEAL; Fluid/Swab Result Value Ref Range SARS COV 2 RNA, QL REAL TIME RT PCR NOT DETECTED NOT DETECTED NARRATIVE -1 This test was performed using isothermal [employer] and has been approved as Emergency Use Authorization (EUA) for the qualitative detection [id number] nucleic acid. TROPONIN I, HIGH SENSITIVITY Result Value Ref Range TROPONIN I, HIGH SENSITIVITY 10 0 - 12 pg/mL CHEM 7 (LYTES,BUN,CREA,GLUC) Result Value Ref Range GLUCOSE 141 (H) 70 - 100 MG/DL BUN 24 (H) 7 - 20 MG/DL CREATININE SERUM 1.06 (H) 0.52 - 1.04 MG/DL SODIUM 136 136 - 145 MMOL/L POTASSIUM 2.9 (LL) 3.5 - 5.1 MMOL/L CHLORIDE 98 98 - 107 MMOL/L CARBON DIOXIDE (CO2) 25 22 - 30 MMOL/L ESTIMATED GFR, NON AMER 56 ml/min/1.73sq.m ESTIMATED GFR, 68 ml/min/1.73sq.m GFR COMMENT Average GFR for 60-69 years old = 85. CBC, EDIF, PLATELET Result Value Ref Range WBC (WHITE BLOOD COUNT) 5.4 3.6 - 11.0 10*3/uL RBC 4.96 4.0 - 5.4 10*6/uL HEMOGLOBIN (HGB) 15.6 12.0 - 16.0 G/DL HEMATOCRIT (HCT) 44.5 36.0 - 48.0 % MEAN CELL VOLUME 89.7 80.0 - 100.0 FL Mean Cell HGB 31.5 26.0 - 35.0 PG MEAN CELL HGB CONCENTRATION 35.1 27.0 - 37.0 G/DL RBC DISTRIBUTION 13.5 11.5 - 14.5 % PLATELET COUNT 129 (L) 130.0 - 400.0 10*3/uL MEAN PLATELET VOLUME 10.1 7.4 - 11.0 FL DIFFERENTIAL TYPE AUTO DIFF % NEUTROPHILS 55.3 37.0 - 75.0 % LYMPHOCYTE 34.0 20.0 - 55.0 % MONOCYTE % 5.6 0.0 - 10.0 % EOSINOPHIL % 4.4 0.0 - 11.0 % BASOPHIL % 0.7 0.0 - 2.0 % Absolute Neutrophil Count 3.0 1.4 - 6.5 10*3/uL LYMPHOCYTES, ABSOLUTE 1.80 1.2 - 3.4 10*3/uL MONOCYTES, ABSOLUTE 0.3 0.0 - 0.7 10*3/uL ABSOLUTE EOSINOPHIL COUNT 0.20 0.0 - 0.7 10*3/uL ABSOLUTE BASOPHIL COUNT 0.0 0.0 - 0.2 10*3/uL TSH Result Value Ref Range TSH 1.649 0.45 - 5.33 uIU/ML INFLUENZA A AND B, PCR Result Value Ref Range INFLUENZA A NEGATIVE NEGATIVE INFLUENZA B NEGATIVE NEGATIVE TROPONIN I, HIGH SENSITIVITY Result Value Ref Range TROPONIN I, HIGH SENSITIVITY 11 0 - 12 pg/mL URINALYSIS, MACRO Result Value Ref Range COLOR, URINE YELLOW YELLOW APPEARANCE, URINE CLEAR CLEAR Specific [place], Urine 1.025 1.010 - 1.025 PH URINE 5.5 5.0 - 7.0 PROTEIN, URINE NEGATIVE NEGATIVE mg/dl GLUCOSE, URINE NEGATIVE NEGATIVE mg/dl KETONES, URINE TRACE (A) NEGATIVE mg/dl BILIRUBIN, URINE NEGATIVE NEGATIVE BLOOD, URINE DIPSTICK NEGATIVE NEGATIVE NITRITES, URINE NEGATIVE NEGATIVE UROBILINOGEN, URINE 0.2 0.2 - 1.0 E.U./dL LEUKOCYTE ESTERASE, URINE SMALL (A) NEGATIVE URINE MICROSCOPIC Result Value Ref Range WBC, URINE NEGATIVE NEGATIVE /HPF RBC, URINE NEGATIVE NEGATIVE /HPF Epithelial Cells UA NONE /HPF Mucus NEGATIVE NEGATIVE BACTERIA, URINE NEGATIVE NEGATIVE CRYSTALS, URINE NONE NONE CASTS, URINE NONE NONE /LPF COMMENT, URINE CULTURE CRITERIA NOT MET, NO CULTURE PERFORMED. Radiographic Imaging CT HEAD WITHOUT CONTRAST Final Result IMPRESSION: Incidental small left parietal meningioma unchanged. XR CHEST AP PORTABLE Final Result Impression: No acute cardiopulmonary abnormality. Procedures: Procedures ED Summary/MDM MDM Number of Diagnoses or Management Options Chest pain, unspecified type Hypokalemia Diagnosis management comments: Patient's potassium is low here. Patient was given some oral potassium. She is dehydrated and IV fluids were started. First a cardiac enzymes are negative. Her EKG shows a sinus tachycardia with ventricular rate of 123 a WA of 170 and a QRS of 74. QT is 329. At this time no STEMI. Again for some chronic enzymes are negative. Patient's blood pressure is elevated here but it has improved after some medications. Her COVID and influenza A and B are negative. Urinalysis negative for UTI. Patient was given morphine for headaches per patient request. Patient continues to have a headache. CT of the head is negative for acute brain bleed. Labs show a normal white bloodcell count. As stated before her potassium is low. Her kidney functions are up. I did speak with Dr. Blanton who agreed to admit the patient. We will continue monitoring. Medical Decision Making Presentation concerning for a cardiac source of chest pain including a cardiac ischemia, ACS. The patient's chest x-ray was within normal limits making significant pneumothorax, pneumonia, lungabscess, or aortic pathology much less likely. The patient's EKG does not show changes consistent with pericarditis. Unlikely to be aortic dissection, pulmonary embolism, pneumonia, pleural effusion. Laboratory evaluation with normal electrolytes, negative troponin, EKG does not show a STEMI at this time, normal CBC, normal chest x-ray. Improvement in chest pain in the ER. Discussed with coveringphysician and my attending who accepted patient for admission. Heparinization was deferred given the absence of ongoing chest pain, normal cardiac enzymes and absence of concerning/dynamic EKG changes. The patient was chest pain-free prior to admission with the above chest pain- appropriate interventions and the patient is appropriate for admission. Plan: Admit to hospital for further evaluation and treatment Amount and/or Complexity of Data Reviewed Clinical lab tests: ordered and reviewed Tests in the radiology section of CPT : ordered and reviewed Discussion of test results with the performing providers: yes Obtain history from someone other than the patient: no Discuss the patient with other providers: yes Risk of Complications, Morbidity, and/or Mortality Presenting problems: low Diagnostic procedures: low Management options: low Patient Progress Patient progress: stable Clinical Impression: 1. Hypokalemia 2. Chest pain, unspecified type No follow-ups on file. New Prescriptions No medications on file Discontinued Medications No medications on file An After Visit Summary was printed and given to the patient with above information. . Portions of this chart were created using [employer] electronic dictation. Please excuse any typographical or grammatical errors contained herein. Plan is to admit. Michaela Barragan PA-C 01/27/221919 Associated attestation - Silas Starkey MD - 01/27/2022 7:58 PM EDT Attending note: I was available for consultation regarding this patient. The patient was seen, evaluated and dispositioned by the mid-level provider independently. [employer] Work Phone: [phone] Emergency department Note* Wilma Bonilla RN - 01/27/2022 3:57 PM EDT Bed: E009 Expected date: Expected time: Means of arrival: Comments: [employer] [id number] Miscellaneous Notes* Case Communication - Irene Guerrero RN - 10/23/2021 7:49 AM EST Patient not admitted. Multuple calls and messages left for patient to return call. Spoke with patients mother who stated patient should be home. No answer at home no return call. Dr notified via phone documented in this [id number] Miscellaneous Notes* Telephone Encounter - Lupe Jeong RN - 02/15/2021 4:55 PM EDT Patient returned call and reports that she is no longer taking the Metoprolol. [facility] Diagnosis Localized swelling, mass, or lump of upper extremity, right Swelling of limb [facility] Diagnosis Lump of skin of upper extremity, right [facility]* Diagnosis Hypokalemia Hypopotassemia Chest pain, unspecified type UTI (urinary tract infection) Urinary tract infection, site not specified Class 3 severe obesity due to excess calories with serious comorbidity and body mass index (BMI) of 45.0 to 49.9 in adult Vitamin D deficiency Unspecified vitamin D deficiency Dehydration Anxiety Anxiety state, unspecified Hypertensive urgency Unspecified essential hypertension KELLY (obstructive sleep apnea) Obstructive sleep apnea (adult) (pediatric) Leukopenia Leukocytopenia, unspecified Thrombocytopenia Thrombocytopenia, unspecified [facility] Diagnosis Hepatic cirrhosis, unspecified hepatic cirrhosis type, unspecified whether ascites present (HCC)- Primary Abdominal pain, unspecified abdominal location Abnormal finding of blood chemistry, unspecified Abnormal findings on diagnostic imaging of other parts of digestive tract Body mass index (BMI) 45.0-49.9, adult (HCC) [facility]* Diagnosis Hepatic cirrhosis, unspecified hepatic cirrhosis type, unspecified whether ascites present (HCC)- Primary Abdominal pain, unspecified abdominal location Abnormal finding of blood chemistry, unspecified Abnormal findings on diagnostic imaging of other parts of digestive tract Body mass index (BMI) 45.0-49.9, adult (HCC) [facility]* Diagnosis Rectal bleeding- Primary Hemorrhage of rectum and anus Constipation, unspecified constipation type Change in bowel habits Other symptoms involving digestive system RUQ pain Abdominal pain, right upper quadrant Esophageal dysphagia Dysphagia, pharyngoesophageal phase Encounter for laboratory testing for severe acute respiratory syndrome coronavirus 2 (SARS-CoV-2) Body mass index (BMI) 45.0-49.9, adult (HCC) [facility]* Diagnosis Hepatic cirrhosis, unspecified hepatic cirrhosis type, unspecified whether ascites present (HCC) Abdominal pain, unspecified abdominal location Abnormal finding of blood chemistry, unspecified Abnormal findings on diagnostic imaging of other parts of digestive tract Rectal bleeding Hemorrhage of rectum and anus Change in bowel habits Other symptoms involving digestive system RUQ pain Abdominal pain, right upper quadrant Esophageal dysphagia Dysphagia, pharyngoesophageal phase Rectal bleeding Hemorrhage of rectum and anus Change in bowel habits Other symptoms involving digestive system RUQ pain Abdominal pain, right upper quadrant Esophageal dysphagia Dysphagia, pharyngoesophageal phase [facility]* Diagnosis Rectal bleeding Hemorrhage of rectum and anus Change in bowel habits Other symptoms involving digestive system RUQ pain Abdominal pain, right upper quadrant Esophageal dysphagia Dysphagia, pharyngoesophageal phase Pre-op evaluation- Primary Preoperative examination, unspecified Rectal bleeding Hemorrhage of rectum and anus Change in bowel habits Other symptoms involving digestive system RUQ pain Abdominal pain, right upper quadrant Esophageal dysphagia Dysphagia, pharyngoesophageal phase [facility]* Diagnosis Rectal bleeding Hemorrhage of rectum and anus Change in bowel habits Other symptoms involving digestive system RUQ pain Abdominal pain, right upper quadrant Esophageal dysphagia Dysphagia, pharyngoesophageal phase Encounter for laboratory testing for severe acute respiratory syndrome coronavirus 2 (SARS-CoV-2)- Primary Rectal bleeding Hemorrhage of rectum and anus Change in bowel habits Other symptoms involving digestive system RUQ pain Abdominal pain, right upper quadrant Esophageal dysphagia Dysphagia, pharyngoesophageal phase [facility]* Diagnosis Rectal bleeding Hemorrhage of rectum and anus Change in bowel habits Other symptoms involving digestive system RUQ pain Abdominal pain, right upper quadrant Esophageal dysphagia Dysphagia, pharyngoesophageal phase Encounter for laboratory testing for severe acute respiratory syndrome coronavirus 2 (SARS-CoV-2)- Primary Rectal bleeding Hemorrhage of rectum and anus Change in bowel habits Other symptoms involving digestive system RUQ pain Abdominal pain, right upper quadrant Esophageal dysphagia Dysphagia, pharyngoesophageal phase [facility]* Diagnosis RUQ pain- Primary Abdominal pain, right upper quadrant Change in bowel habits Other symptoms involving digestive system Rectal bleeding Hemorrhage of rectum and anus Cirrhosis of liver without ascites, unspecified hepatic cirrhosis type (HCC) History of colonic polyps Personal history of colonic polyps Esophageal dysphagia Dysphagia, pharyngoesophageal phase Grade I hemorrhoids Adenomatous polyp of sigmoid colon [facility]* Diagnosis Hiatal hernia- Primary Diaphragmatic hernia without mention of obstruction or gangrene Grade I hemorrhoids Early satiety Epigastric pain Abdominal pain, epigastric [facility]- Primary Drug allergy Other drug allergy [facility] Diagnosis Other microscopic hematuria- Primary Urinary frequency [facility] Diagnosis Other microscopic hematuria Urinary frequency Urinary frequency- Primary Other microscopic hematuria [facility] Diagnosis Urinary frequency- Primary Other microscopic hematuria [facility] Diagnosis Sciatica of left side- Primary Sciatica Vasculitis of skin Vascular disorder of skin [facility] [place] [facility]* Diagnosis Pain in left lower leg [facility] [place] [facility] Diagnosis Hypertensive urgency- Primary Unspecified essential hypertension Hypertensive urgency Unspecified essential hypertension Acute intractable headache, unspecified headache type Anxiety Anxiety state, unspecified Hypokalemia Hypopotassemia KLELY (obstructive sleep apnea) Obstructive sleep apnea (adult) (pediatric) Thrombocytopenia Thrombocytopenia, unspecified Chronic hepatitis C virus infection Class 3 severe obesity due to excess calories with serious comorbidity and body mass index (BMI) of 45.0 to 49.9 in adult Elevated LFTs Other abnormal blood chemistry Mixed hyperlipidemia Hyperglycemia Other abnormal glucose Tension type headache Tension type headache, unspecified [facility] [place] [facility] Diagnosis Primary osteoarthritis of left knee- Primary [facility] Diagnosis Migraine with aura, with intractable migraine, so stated, with status migrainosus- Primary [facility] [place] [facility]* Diagnosis Generalized abdominal pain- Primary Abdominal pain, generalized Constipation, unspecified constipation type Anxiety Anxiety state, unspecified [facility]* Diagnosis Hepatic cirrhosis, unspecified hepatic cirrhosis type, unspecified whether ascites present (HCC)- Primary Assistance needed with transportation Anxiety about health Insomnia, unspecified type Fatty liver Other chronic nonalcoholic liver disease [facility]* Diagnosis Hepatic cirrhosis, unspecified hepatic cirrhosis type, unspecified whether ascites present (HCC)- Primary [facility]* Diagnosis Hepatic cirrhosis, unspecified hepatic cirrhosis type (HCC)- Primary Fatty liver Other chronic nonalcoholic liver disease [facility]* Diagnosis Hepatic cirrhosis, unspecified hepatic cirrhosis type, unspecified whether ascites present (HCC) [facility]* Diagnosis Disorder involving thrombocytopenia (CMS-HCC)- Primary Mixed hyperlipidemia Current moderate episode of major depressive disorder without prior episode (Multi) Obesity, morbid (Multi) Morbid obesity KELLY (obstructive sleep apnea) Obstructive sleep apnea (adult) (pediatric) Primary insomnia Persistent disorder of initiating or maintaining sleep Vitamin D deficiency Hyperglycemia Other abnormal glucose Cirrhosis of liver without ascites, unspecified hepatic cirrhosis type (Multi) documented in this encounter [facility] Work Phone: Hospital Discharge instructions* Attachments The following attachments cannot be sent through Care Everywhere. * Coronavirus Disease (COVID-19): Isolation ([place]) * Coronavirus Disease (COVID-19): General Info ([place]) * Drug Allergy ([place]) [facility]* Attachments The following attachments cannot be sent through Care Everywhere. * Back Pain ([place]) * Sciatica ([place]) [facility]* Attachments The following attachments cannot be sent through Care Everywhere. * Pain and Pain Control ([facility]) ([place]) * Hypertension: Emergency or Urgency ([place]) * Moving to Stay Independent ([facility]) ([place]) * atorvastatin ([place]) * carvedilol ([place]) * hydrochlorothiazide ([place]) * losartan ([place]) [facility] Narrative* Tests/Procedures (Routine) - Closed Specialty Diagnoses / Procedures Referred By Marco Antonio t Referred To Contact Gastroenterology Diagnoses Hepatic cirrhosis, unspecified hepatic cirrhosis type, unspecified whether ascites present (HCC) Jaime Carter, AWILDA-CONTRACTS DIRECTOR [address] [facility] [place] [address] [facility] [place] [address] Referral ID Status Reason Start Date Expiration Date V isits Requested Visits Authorized [id number] Closed Consultation -[facility] 01/27/2024 01/26/2025 1 [facility] Summary Purpose Family History No Family History Records FoundNo Family History Records FoundNo Family History Records FoundNo Family History Records FoundNo Family History Records FoundNo Family History Records FoundNo Family History Records FoundNo Family History Records FoundNo Family History Records FoundNo Family History Records FoundNo Family History Records FoundNo Family History Records FoundNo Family History Records Found Advance Directives No Advanced Directives Records FoundDocuments on File Type Date Recorded 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 Agricultural Service Worker Expl anation Advance Directives and Living Will Documents on File Type Date Recorded Patient Agricultural Service Worker Expl anation Advance Directives and Livin g Will 07/28/2019 9:42 AM Latest Code Status on File Code Status Date Activated Date Inactivated Comments Full Code 07/08/2019 9:52 AM Full Code 06/30/2019 4:58 PM 07/08/2019 7:01 AM Documents on File Type Date Recorded Patient Agricultural Service Worker Expl anation Advance Directives and Livin g Will 07/28/2019 9:42 AM Latest Code Status on File Code Status Date Activated Date Inactivated Comments Full Code 07/08/2019 9:52 AM Full Code 06/30/2019 4:58 PM 07/08/2019 7:01 AM Documents on File Type Date Recorded Patient Agricultural Service Worker Expl anation Advance Directives and Livin g Will 07/29/2019 8:12 AM Latest Code Status on File Code Status Date Activated Date Inactivated Comments Full Code 07/08/2019 9:52 AM 07/29/2019 8:12 AM Documents on File Type Date Recorded Patient Agricultural Service Worker Expl anation Advance Directives and Livin g Will 09/20/2019 11:05 AM Latest Code Status on File Code Status Date Activated Date Inactivated Comments Full Code 07/08/2019 9:52 AM 07/29/2019 8:12 AM Documents on File Type Date Recorded Patient Agricultural Service Worker Expl anation Advance Directives and Livin g Will 11/01/2019 1:42 PM Documents on File Type Date Recorded Patient Agricultural Service Worker Expl anation Advance Directives and Livin g Will 05/02/2019 1:12 PM Documents on File Type Date Recorded Patient Agricultural Service Worker Expl anation Advance Directives and Livin g Will 09/05/2019 8:57 AM Documents on File Type Date Recorded Patient Agricultural Service Worker Expl anation Advance Directives and Livin g Will 06/23/2019 3:23 PM Latest Code Status on File Code Status Date Activated Date Inactivated Comments Full Code 06/30/2019 4:58 PM Documents on File Type Date Recorded Patient Agricultural Service Worker Expl anation Advance Directives and Livin g Will 11/01/2020 3:10 PM Documents on File Type Date Recorded Patient Agricultural Service Worker Expl anation Advance Directives and Livin g Will 11/14/2020 9:08 AM Latest Code Status on File Code Status Date Activated Date Inactivated Comments Full Code 11/14/2020 11:43 AM 11/14/2020 6:13 PM Full Code 07/08/2019 9:52 AM 07/29/2019 8:12 AM Documents on File Type Date Recorded Patient Agricultural Service Worker Expl anation Advance Directives and Livin g Will 11/14/2020 9:08 AM Power of Campus Dean Documents on File Type Date Recorded Patient Agricultural Service Worker Expl anation Advance Directives and Livin g Will 11/14/2020 9:08 AM Power of Campus Dean Latest Code Status on File Code Status Date Activated Date Inactivated Comments Full Code 11/14/2020 11:43 AM 11/14/2020 6:13 PM Full Code 07/08/2019 9:52 AM 07/29/2019 8:12 AM Latest Code Status on File Code Status Date Activated Date Inactivated Comments Full Code 11/28/2020 5:30 PM Full Code 11/14/2020 11:43 AM 11/14/2020 6:13 PM Latest Code Status on File Code Status Date Activated Date Inactivated Comments Full Code 11/28/2020 5:30 PM 12/01/2020 8:33 PM Full Code 11/14/2020 11:43 AM 11/14/2020 6:13 PM Latest Code Status on File Code Status Date Activated Date Inactivated Comments Full Code 11/28/2020 5:30 PM 12/01/2020 8:33 PM Documents on File Type Date Recorded Patient Agricultural Service Worker Expl anation Advance Directives and Livin g Will 07/08/2019 7:00 AM Documents on File Type Date Recorded Patient Agricultural Service Worker Expl anation Advance Directives and Livin g Will 08/12/2019 8:57 AM Documents on File Type Date Recorded Patient Agricultural Service Worker Expl anation Power of Campus Dean Advance Directives and Livin g Will 11/14/2020 9:08 AM Documents on File Type Date Recorded Patient Agricultural Service Worker Expl anation Power of Campus Dean Advance Directives and Livin g Will 04/03/2021 5:01 PM Documents on File Type Date Recorded Patient Agricultural Service Worker Expl anation Power of Campus Dean Advance Directives and Livin g Will 04/03/2021 5:01 PM Latest Code Status on File Code Status Date Activated Date Inactivated Comments Full Code 10/19/2021 12:25 AM 10/21/2021 6:45 PM Full Code 11/28/2020 5:30 PM 12/01/2020 8:33 PM Latest Code Status on File Code Status Date Activated Date Inactivated Comments Full Code 01/27/2022 10:11 PM Full Code 07/16/2016 5:46 AM 07/16/2016 2:18 PM Latest Code Status on File Code Status Date Activated Date Inactivated Comments Full Code 01/27/2022 10:11 PM Code Status History Code Status Date Activated Date Inactivated Comments Full Code 07/16/2016 5:46 AM 07/16/2016 2:18 PM Latest Code Status on File Code Status Date Activated Date Inactivated Comments Full Code 01/27/2022 10:11 PM Code Status History Code Status Date Activated Date Inactivated Comments Full Code 07/16/2016 5:46 AM 07/16/2016 2:18 PM Documents on File Type Date Recorded Patient Agricultural Service Worker Expl anation Power of Campus Dean Latest Code Status on File Code Status Date Activated Date Inactivated Comments Full Code 10/19/2021 12:25 AM 10/21/2021 6:45 PM Code Status History Code Status Date Activated Date Inactivated Comments Full Code 11/28/2020 5:30 PM 12/01/2020 8:33 PM Full Code 11/14/2020 11:43 AM 11/14/2020 6:13 PM Full Code 07/08/2019 9:52 AM 07/29/2019 8:12 AM Full Code 06/30/2019 4:58 PM 07/08/2019 7:01 AM Latest Code Status on File Code Status Date Activated Date Inactivated Comments Full Code - Unverified 06/07/2023 2:52 AM 06/09/2023 4:3 9 PM Code Status History Code Status Date Activated Date Inactivated Comments Full Code 10/19/2021 12:25 AM 10/21/2021 6:45 PM Full Code 11/28/2020 5:30 PM 12/01/2020 8:33 PM Full Code 11/14/2020 11:43 AM 11/14/2020 6:13 PM Full Code 07/08/2019 9:52 AM 07/29/2019 8:12 AM Documents on File Type Date Recorded Patient Agricultural Service Worker Expl anation Power of Campus Dean Latest Code Status on File Code Status Date Activated Date Inactivated Comments Full Code - Unverified 06/07/2023 2:52 AM 06/09/2023 4:3 9 PM Code Status History Code Status Date Activated Date Inactivated Comments Full Code 10/19/2021 12:25 AM 10/21/2021 6:45 PM Full Code 11/28/2020 5:30 PM 12/01/2020 8:33 PM Full Code 11/14/2020 11:43 AM 11/14/2020 6:13 PM Full Code 07/08/2019 9:52 AM 07/29/2019 8:12 AM History of Present Illness * Ariella Chiu MA - 03/01/2019 12:35 PM EDT Patient requested to be on the wait list for Dr. Skelton on 01/31/19. We have called several times: Called 02/01, 02/09, LM 02/15, 02/22, LM 02/28. No return call. Patient will be removed from the wait list at this time. documented in this encounter* Lupe Jeong RN - 06/30/2019 4:[address] Thomas to see patient. [place] scheduled and instructions given. * Lupe Jeong RN - 06/30/2019 3:58 PM EDT Patient states she has been having intermittent chest pain and shortness of breath. documented in this encounter* Annalee Dyson PT - 11/26/2020 5:23 PM EST No response to attempts to schedule PT visit for possible discharge. documented in this encounter* Joanne Arzate RN - 12/01/2020 2:13 PM EST DISCHARGE PLAN PROGRESS NOTE Date: 12/01/2020 Time: 2:14 PM Patient Name: Micheline Fox Date of : 1960 Sex: Female Virtual Case Management Discharge planning Called and spoke with patient - she is current with [facility] and she wants to continue her current service and add a home health aid. She said that they know she wants one but there has not been one available. Anticipated Discharge Plan Anticipated Home Care Needs: Home health care Anticipated Facility Type: Home care * Digna Enriquez DPM - 12/01/2020 8:25 AM EST Progress Inpatient Follow-up 12/01/2020 Digna Enriquez, KEVIN [facility] Patient: Micheline Fox Date of : 1960 (60 y.o.) PCP: Leticia Sylvester MD ASSESSMENT/PLAN: Micheline Fox 60 y.o. female with history of postop infection right heel much improved with clindamycin. Plan: I pulled out the last 2 remaining stitches from the right heel wound, cleaned with alcohol apply Betadine and a dry sterile dressing with an Vania. Patient is okay to be discharged on oral clindamycin, Percocet for any pain, patient will be able to ambulate with her cam walker boot. I have encouraged her to use Tylenol if possible and so the Percocet to avoid constipation. patient is to change her dressing once a day and follow-up my private practice in 1 week. No new Assessment & Plan notes have been filed under this hospital service since the last note was generated. Service: Podiatry SUBJECTIVE: History Since Last Visit: Patient is a 60-year-old female status post heel spur resection 3 weeks and 3 days postop.. Patient developed a postoperative infection which was unresponsive to oral antibiotics. Patient was admitted for IV antibiotics and has done well.. Patient had a venous Doppler during her course of stay which was negative for DVT.. Patient's had history of constipation due to painmeds. Patient denies nausea vomiting fevers or chills Pending Lab and Radiology Results Order Current Status Blood Culture Aerobic/Anaerobic Preliminary result Blood Culture Aerobic/Anaerobic Preliminary result Review of Systems: OBJECTIVE: Physical Examination: Integument-the medial side of the right heel the incision line erythema and edema are much improved. There is little warmth. No drainage noted today. The incision seems to be well coapted. Neuro sensation intact right foot Musculoskeletal-patient had no pain in the calf and mild discomfort on the medial and central bandsof the plantar fascia calcaneal tubercle of the right foot. BP 112/74 Pulse 60 Temp 98.4 F (36.9 C) (Oral) Resp 16 Ht 5' 5 Wt (!) 146.6 kg (323 lb 3.1 oz) LMP (LMP Unknown) SpO2 90% BMI 53.78 kg/m Laboratory and Additional Data Reviewed: Reviewed:[id number]} * Eli Morataya CNP - 11/30/2020 7:07 PM EST [facility] Medicine Inpatient Follow-up 11/30/2020 Eli Morataya CNP [facility] Patient: Micheline Fox Date of : 1960 (60 y.o.) PCP: Leticia Sylvester MD ASSESSMENT/PLAN: Principal Problem: Foot pain Morbid obesity PLAN: Right foot pain Concern for surgical wound infection Heel spur and plantar fasciitis status post surgery -Blood cultures negative at this time -Continue IV Clindamycin -Venous doppler right leg negative -Podiatry consulted, no surgical intervention at this time -X-ray right foot showing Mild soft tissue swelling of the proximal aspect of the right foot. No fracture dislocation or bony lesion is noted. Medial artifact of the midfoot as noted above. There is metallic linear density which may be consistent with needle measuring 1.5 cm in length themid aspect of the foot. -PT/OT eval and treat Hypokalemia -Potassium 3.0 given 40 meq x 2 dose (11/27) -Resolved Hypertension -Continue Metoprolol losartan and Bumex DVT prophylaxis -Lovenox SUBJECTIVE: Patient reports pain to right foot. All other systems reviewed and negative other than noted above. OBJECTIVE: Physical Examination: BP 104/75 Pulse 66 Temp 97.8 F (36.6 C) (Oral) Resp 14 Ht 5' 5 Wt (!) 146.6 kg (323 lb 3.1 oz) LMP (LMP Unknown) SpO2 94% BMI 53.78 kg/m General Appearance: Alert, well appearing, and in no acute distress. HEENT: Head - Normocephalic, atraumatic. Eyes - PAULETTE bilaterally and EOMI. Ears - normal external appearance, hearing intact. Nose - normal, no erythema. Throat - mucous membranes moist, pharynx without lesions. Neck: Supple, trachea midline. Cardiovascular: S1, S2 normal. No murmurs, rubs, clicks or gallops appreciated. No pedal edema. Respiratory: Lungs clear to auscultation, no wheezes, rales or rhonchi heard. Abdomen: Soft, non-tender, normal bowel sounds, non-distended, no masses or organomegaly appreciated. Neurological: Grossly normal motor and sensory exam. No focal deficits. Musculoskeletal: No joint tenderness, deformity or swelling. Skin: Normal coloration and turgor. No rashes. Right foot medial aspect wound with surrounding erythema and tenderness. Psych: Alert, oriented x 3. Normal mood and affect. CURRENT MEDICATIONS: ALPRAZolam 1 mg Oral Daily aspirin 325 mg Oral BID brexpiprazole 2 mg Oral QAM bumetanide 1 mg Oral Daily clindamycin (CLEOCIN) IV 600 mg Intravenous Q8H docusate sodium 200 mg Oral BID DULoxetine 60 mg Oral QAM enoxaparin (LOVENOX) injection 40 mg Subcutaneous BID losartan 50 mg Oral Daily with lunch [START ON 12/04/2020] metOLazone 2.5 mg Oral Weekly metoprolol succinate 25 mg Oral BID nystatin Topical BID traZODone 300 mg Oral Nightly Results/Medications Reviewed 11/30/20 7:07 PM: Results from last 7 days Lab Units 11/30/20 0334 11/29/20 1341 11/29/20 0303 11/28/20 1705 SODIUM mmol/L 142 -- 141 142 POTASSIUM mmol/L 3.7 4.0 3.0* 3.7 CHLORIDE mmol/L 111* -- 106 107 BUN mg/dL 15 -- 16 16 CREATININE mg/dL 1.00 -- 1.02 0.97 GLUCOSE mg/dL 95 -- 100* 100* CALCIUM mg/dL 7.4* -- 7.5* 8.0* Results from last 7 days Lab Units 11/30/20 0335 11/29/20 0303 11/28/20 1706 WBC K/mcL 3.58* 5.46 5.55 HGB g/dL 12.1 12.5 13.9 HCT % 36.5 38.0 40.7 PLT K/mcL 102* 126* 125* Invalid input(s): LABALBU CULTURES: Reviewed 7:07 PM IMAGING: Reviewed 7:07 PM * Dianelys Avery CNP - 11/30/2020 10:28 AM EST Podiatry Inpatient Progress Note 11/30/2020 Dianelys Avery CNP [facility] Patient: Micheline Fox Date of : 1960 (60 y.o.) PCP: Leticia Sylvester MD ASSESSMENT 60 y.o. female with the following pedal anomalies: 1. Right heel s/p surgery infection 2. S/p plantar fasciotomy with heel spur resection right foot PLAN: Patient was seen and evaluated Discussed all clinical and radiographic findings 3. Labs 1. WBC- 3.58 4. Imaging 1. Venous ultrasound 1. Negative DVT 2. Xray right foot 1. Mild soft tissue swelling proximal aspect right foot. Medial artifact at midfoot, pt known to have needle for the past years 5. Micro 1. BC- NGTD 6. Dressing 1. Adaptic, DSD, kerlix, vania daily 7. Will continue to follow. Getting IV ATB Clindamycin, cellulits is improving, pt continues to c/opain in right foot. Dr. Enriquez will be in over the weekend to see pt. SUBJECTIVE: Patient was seen resting comfortably in bed. Denies any significant over night events OBJECTIVE: Podiatric Exam Vascular: Peripheral pulses are palpable at 2 out of 4 for the right dorsalis pedis pulse, 2 out of4 for the left dorsalis pedis pulse, 2 out of 4 the right posterior tibial pulse, 2 out of 4 for the left posterior tibial pulse. CFT is less than 3 seconds bilaterally. Skin temperature is warm to warm proximal to distal bilaterally. Lower extremity edema non-pitting is observed to the right lowerextremities. Neurological: Gross sensation intact, protective sensation intact. Dermatologic: Integument is intact bilateral lower extremity with the exception of wound noted to right medial heel. Surgical incision is well approximated, mild amount of erythema. Webspaces 1-4 bilaterally are clean, dry, and intact. Musculoskeletal: Muscle strength is 5/5 for all muscle groups. Able to wiggle digits bilaterally. Is c/o calf pain in right leg. Compartments are soft and compressible. * Eli Morataya CNP - 11/29/2020 9:30 AM EST Hospital Medicine Inpatient Follow-up 11/29/2020 Eli Morataya, ORTIZ [facility] Patient: Micheline Fox Date of : 1960 (60 y.o.) PCP: Leticia Sylvester MD ASSESSMENT/PLAN: Principal Problem: Foot pain Morbid obesity PLAN: 11/29 Right foot pain Concern for surgical wound infection Heel spur and plantar fasciitis status post surgery -Blood cultures negative at this time -Continue IV Clindamycin -Podiatry consulted, appreciate their input -X-ray right foot showing Mild soft tissue swelling of the proximal aspect of the right foot. No fracture dislocation or bony lesion is noted. Medial artifact of the midfoot as noted above. There is metallic linear density which may be consistent with needle measuring 1.5 cm in length themid aspect of the foot. Hypokalemia -Potassium 3.0 given 40 meq x 2 dose -Will re-check later today Hypertension -Continue Metoprolol losartan and Bumex DVT prophylaxis -Lovenox SUBJECTIVE: Patient reports pain to right foot. All other systems reviewed and negative other than noted above. OBJECTIVE: Physical Examination: BP 94/61 Pulse (!) 58 Temp 98.4 F (36.9 C) (Oral) Resp 16 Ht 5' 5 Wt (!) 146.6 kg (323 lb 3.1 oz) LMP (LMP Unknown) SpO2 91% BMI 53.78 kg/m General Appearance: Alert, well appearing, and in no acute distress. HEENT: Head - Normocephalic, atraumatic. Eyes - PAULETTE bilaterally and EOMI. Ears - normal external appearance, hearing intact. Nose - normal, no erythema. Throat - mucous membranes moist, pharynx without lesions. Neck: Supple, trachea midline. Cardiovascular: S1, S2 normal. No murmurs, rubs, clicks or gallops appreciated. No pedal edema. Respiratory: Lungs clear to auscultation, no wheezes, rales or rhonchi heard. Abdomen: Soft, non-tender, normal bowel sounds, non-distended, no masses or organomegaly appreciated. Neurological: Grossly normal motor and sensory exam. No focal deficits. Musculoskeletal: No joint tenderness, deformity or swelling. Skin: Normal coloration and turgor. No rashes. Right foot medial aspect wound with surrounding erythema and tenderness. Psych: Alert, oriented x 3. Normal mood and affect. CURRENT MEDICATIONS: ALPRAZolam 1 mg Oral Daily aspirin 325 mg Oral BID brexpiprazole 2 mg Oral QAM bumetanide 1 mg Oral Daily clindamycin (CLEOCIN) IV 600 mg Intravenous Q8H DULoxetine 60 mg Oral QAM enoxaparin (LOVENOX) injection 40 mg Subcutaneous BID losartan 50 mg Oral Daily with lunch [START ON 12/04/2020] metOLazone 2.5 mg Oral Weekly metoprolol succinate 25 mg Oral BID traZODone 300 mg Oral Nightly Results/Medications Reviewed 11/29/20 10:55 AM: Results from last 7 days Lab Units 11/29/20 0303 11/28/20 1705 SODIUM mmol/L 141 142 POTASSIUM mmol/L 3.0* 3.7 CHLORIDE mmol/L 106 107 BUN mg/dL 16 16 CREATININE mg/dL 1.02 0.97 GLUCOSE mg/dL 100* 100* CALCIUM mg/dL 7.5* 8.0* Results from last 7 days Lab Units 11/29/20 0303 11/28/20 1706 WBC K/mcL 5.46 5.55 HGB g/dL 12.5 13.9 HCT % 38.0 40.7 PLT K/mcL 126* 125* Invalid input(s): LABALBU CULTURES: Reviewed 10:55 AM IMAGING: Reviewed 10:55 AM * Jena Sanchez RN - 11/28/2020 9:23 PM EST Upon admission assessment patient has surgical wound to right inner heel. Incision site has severalsutures in place. Area is well approximated with redness and tenderness noted around incision. No drainage noted. documented in this encounter* Annalee Dyson, PT - 12/04/2020 3:14 PM EDT Pt did not respond to VM or multiple call attempts to schedule 2ROC. Will reattempt on 12/06/20 documented in this encounter* Giorgi Thomas MD - 06/23/2019 2:51 PM EDT [facility] [address] ([address]) [facility] [address] [facility] [id number] Subjective: Micheline Fox is a 59 y.o. 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 History of left heart catheterization4 years ago with moderate coronary artery disease, medical therapy recommended. History of hepatitis C, cirrhosis, was successfully treated for the hepatitis C, according the patient. Has a history of chronically low platelets, last 126,000 range 3 months ago. Renal function intact. Recently, she has had increased shortness of breath, sleeping in a recliner, also had some right arm discomfort. Chest discomfort seems to come and go on its own, not related to exertion. EKG shows sinus rhythm with sinus tachycardia, nonspecific ST changes. There is mild edema of lower extremities. Patient is obese. Abdomen is protuberant. No obvious ascites. No jaundice noted. IMPRESSION 1. History of known coronary artery disease. Had heart catheterization 2014 with medical therapy. Quit smoking at that time. History of cirrhosis of the liver with hepatitis C treated previously. 2. Shortness of breath. 3. Chest discomfort. 4. Mildly decreased platelet count, 126,000. Overview of Problems Addressed: No problems updated. Assessment & Plan: PLAN Concerned she has fluid retention either secondary to heart or perhaps liver. Will check proBNP, blood work, chest x-ray. Start spironolactone 25 mg 1 daily in addition to her Lasix and also started low-dose of beta hero, metoprolol- XL, half of a 25-mg pill daily. Review blood work to look for response to the medications before pursuing other cardiac testing, such as nuclear stress test or going directly to left heart catheterization. If prolonged chest pains she was informed to go to the emergency room. Review CBC and platelet status. Denies any bleeding problems. Currently not taking aspirin. Left heart catheterization, April 2015, showed normal left ventricular systolic function, single-vessel coronary artery disease with moderate mid posterior circulation involvement, fractional flow reserve 0.83, not physiologically significant, medical therapy. Left anterior descending had a 30% obstruction. LV function was intact. Medical therapy. No problem-specific Assessment & Plan notes found for this encounter. Histories: Past Medical History: Diagnosis Date Cirrhosis (HCC) Hepatitis C Hypertension Past Surgical History: Procedure Laterality Date BACK SURGERY 1999 CARDIAC CATHETERIZATION GASTRIC BYPASS 1997 NECK SURGERY 1999 Family History Problem Relation Age of Onset Melanoma Father Heart attack Father Heart disease Father Heart disease Maternal Grandmother Heart disease Maternal Grandfather Social History Tobacco Use Smoking status: Former Smoker Packs/day: 0.00 Smokeless tobacco: Never Used Tobacco comment: quit 4 years ago Substance Use Topics Alcohol use: Never Frequency: Never Drug use: Not on file Patient's Medications New Prescriptions METOPROLOL SUCCINATE (TOPROL-XL) 25 MG 24 HR TABLET Take 0.5 (one-half) tablet (12.5 mg total) by mouth daily . SPIRONOLACTONE (ALDACTONE) 25 MG TABLET Take 1 (one) tablet (25 mg total) by mouth daily . Previous Medications CHOLECALCIFEROL, VITAMIN D3, (VITAMIN D3 ORAL) Take 125 mcg by mouth daily . DESVENLAFAXINE SUCCINATE (PRISTIQ) 50 MG 24 HR TABLET Take 50 mg by mouth daily . DOCUSATE SODIUM (COLACE) 100 MG CAPSULE Take 100 mg by mouth 2 (two) times a day . DULOXETINE (CYMBALTA) 60 MG CAPSULE Take 60 mg by mouth daily . ESZOPICLONE (LUNESTA) 2 MG TABLET Take 2 mg by mouth nightly . FUROSEMIDE (LASIX) 20 MG TABLET Take 20 mg by mouth Reasons: pt takes 2 tabs daily. LEVOMEFOLATE CALCIUM (DEPLIN ORAL) Take 15 mg by mouth daily . LISINOPRIL (PRINIVIL,ZESTRIL) 10 MG TABLET Take 10 mg by mouth. TRAZODONE (DESYREL) 100 MG TABLET Take 200 mg by mouth. Modified Medications No medications on file Discontinued Medications AMLODIPINE (NORVASC) 2.5 MG TABLET Take 2.5 mg by mouth. ASPIRIN 81 MG CHEWABLE TABLET Chew and Swallow 81 mg. BUPROPION (WELLBUTRIN XL) 150 MG 24 HR TABLET BUPROPION (WELLBUTRIN XL) 300 MG 24 HR TABLET FLUOXETINE (PROZAC) 40 MG CAPSULE Take 60 mg by mouth. Allergies Allergen Reactions Fentanyl Itching Codeine Penicillin Latex Rash Review of Systems Constitution: Negative for diaphoresis, malaise/fatigue, weight gain and weight loss. HENT: Negative for hearing loss, nosebleeds and tinnitus. Eyes: Negative for blurred vision and visual disturbance. Cardiovascular: Positive for chest pain and dyspnea on exertion. Negative for claudication, cyanosis, irregular heartbeat, leg swelling, near-syncope, orthopnea, palpitations, paroxysmal nocturnal dyspnea and syncope. Respiratory: Negative for hemoptysis, shortness of breath and snoring. Endocrine: Negative for cold intolerance and heat intolerance. Hematologic/Lymphatic: Does not bruise/bleed easily. Skin: Negative for flushing, poor wound healing and rash. Musculoskeletal: Negative for back pain, muscle weakness and myalgias. Gastrointestinal: Negative for abdominal pain, change in bowel habit, melena, nausea and vomiting. Genitourinary: Negative for decreased libido and hematuria. Neurological: Negative for loss of balance and numbness. Psychiatric/Behavioral: Negative for memory loss. The patient is not nervous/anxious. Objective: Physical Exam Constitutional: She is oriented to person, place, and time. She appears well- developed and well-nourished. Obese HENT: Head: Normocephalic. Mouth/Throat: Oropharynx is clear and moist. Eyes: Conjunctivae and lids are normal. Neck: No JVD present. Carotid bruit is not present. Cardiovascular: Normal rate, regular rhythm, normal heart sounds and normal pulses. Pulmonary/Chest: Effort normal and breath sounds normal. Abdominal: Soft. Bowel sounds are normal. She exhibits no mass. There is no hepatosplenomegaly. There is no tenderness. Abdomen obese. Soft no clear-cut ascites. Neck veins not elevated. Lungs are clear Musculoskeletal:Normal range of motion. General: Edema present. Comments: 1+ pedal edema bilaterally nonpitting. There is no height or weight on file to calculate BMI. Neurological: She is alert and oriented to person, place, and time. Gait normal. Skin: Skin is warm and intact. No rash noted. Psychiatric: She has a normal mood and affect. Her behavior is normal. Vitals reviewed. Vitals: Vitals: 06/23/19 1421 BP: 108/79 BP Location: Left arm Patient Position: Sitting BP Cuff Size: Adult Pulse: 96 SpO2: 91% Weight: 133.4 kg (294 lb) There is no height or weight on file to calculate BMI. Orders Placed This Encounter Procedures XR Chest AP/PA and LAT Standing Status: Future Number of Occurrences: 1 Standing Expiration Date: 06/22/2020 Scheduling Instructions: OK to schedule at [facility] and all ambulatory sites Fax script to: [facility] [phone] [facility]-[phone] [phone] [facility] - [phone] Order Specific Question: Reason for Exam: Answer: [email or web address] Order Specific Question: Is the patient ? Answer: No Comprehensive metabolic panel Standing Status: Future Number of Occurrences: 1 Standing Expiration Date: 06/23/2020 CBC and differential Standing Status: Future Number of Occurrences: 1 Standing Expiration Date: 06/23/2020 NT PRO BNP Standing Status: Future Number of Occurrences: 1 Standing Expiration Date: 06/23/2020 TSH with Reflex Free T4 Standing Status: Future Number of Occurrences: 1 Standing Expiration Date: 06/23/2020 ECG 12 Lead Follow Up Ordered: Return in about 6 weeks (around 08/04/2019). Giorgi Thomas MD * Anay Pedersen MA - 06/23/2019 2:19 PM EDT Review of Systems Constitution: Negative for diaphoresis, malaise/fatigue, weight gain and weight loss. HENT: Negative for hearing loss, nosebleeds and tinnitus. Eyes: Negative for blurred vision and visual disturbance. Cardiovascular: Positive for chest pain and dyspnea on exertion. Negative for claudication, cyanosis, irregular heartbeat, leg swelling, near-syncope, orthopnea, palpitations, paroxysmal nocturnal dyspnea and syncope. Respiratory: Negative for hemoptysis, shortness of breath and snoring. Endocrine: Negative for cold intolerance and heat intolerance. Hematologic/Lymphatic: Does not bruise/bleed easily. Skin: Negative for flushing, poor wound healing and rash. Musculoskeletal: Negative for back pain, muscle weakness and myalgias. Gastrointestinal: Negative for abdominal pain, change in bowel habit, melena, nausea and vomiting. Genitourinary: Negative for decreased libido and hematuria. Neurological: Negative for loss of balance and numbness. Psychiatric/Behavioral: Negative for memory loss. The patient is not nervous/anxious. documented in this encounter* Giorgi Thomas MD - 08/22/2019 2:56 PM EST [facility] [address] ([address]) [facility] [address] [facility] [id number] Subjective: Micheline Fox is a 59 y.o. female seen in the office today for Chief Complaint Patient presents with Follow-up 6 wk f/u Shortness of Breath Dictation on: 08/22/2019 2:58 PM by: GIORGI THOMAS [[id number]] Overview of Problems Addressed: Problem Ashd (Arteriosclerotic Heart Disease) Cath June 2019 mild to moderate nonobstructive coronary disease. Medical therapy recommended, normal LVEDP. 16 Medical therapy Assessment & Plan: No problem-specific Assessment & Plan notes found for this encounter. Histories: Past Medical History: Diagnosis Date Arthritis Cirrhosis (HCC) Hepatitis C History of cardiac cath 07/01/2019 Hypertension Sleep apnea, obstructive Does not use machine Past Surgical History: Procedure Laterality Date BACK SURGERY 1999 CARDIAC CATHETERIZATION COLONOSCOPY N/A 07/29/2019 Procedure: COLONOSCOPY; Surgeon: Joe Colón MD; Location: [facility]; Service: Gastroenterology EGD N/A 07/29/2019 Procedure: ESOPHAGOGASTRODUODENOSCOPY; Surgeon: Joe Colón MD; Location: [facility]; Service: Gastroenterology GASTRIC BYPASS 1996 HC LEFT HEART CATH N/A 07/08/2019 Procedure: Left Heart Cath; Surgeon: Hari Acosta MD; Location: [facility]; Service: Cardiovascular HERNIA REPAIR NECK SURGERY 1999 Family History Problem Relation Age of Onset Melanoma Father Heart attack Father Heart disease Father No Known Problems Mother Heart disease Maternal Grandmother Heart disease Maternal Grandfather No Known Problems Brother No Known Problems Brother Social History Tobacco Use Smoking status: Former Smoker Packs/day: 0.00 Smokeless tobacco: Never Used Tobacco comment: quit 4 years ago Substance Use Topics Alcohol use: Never Frequency: Never Drug use: Not on file Patient's Medications New Prescriptions No medications on file Previous Medications ALPRAZOLAM (XANAX) 1 MG TABLET Take 0.5-1 mg by mouth daily 0.5 mg-1 mg Daily . CHOLECALCIFEROL, VITAMIN D3, (VITAMIN D3 ORAL) Take 125 mcg by mouth daily . DESVENLAFAXINE SUCCINATE (PRISTIQ) 50 MG 24 HR TABLET Take 50 mg by mouth every morning . DOCUSATE SODIUM (COLACE) 100 MG CAPSULE Take 100 mg by mouth 2 (two) times a day . DULOXETINE (CYMBALTA) 60 MG CAPSULE Take 60 mg by mouth every morning . ESZOPICLONE (LUNESTA) 2 MG TABLET Take 2 mg by mouth nightly . FUROSEMIDE (LASIX) 20 MG TABLET Take 40 mg by mouth every morning Reasons: pt takes 2 tabs daily. LEVOMEFOLATE CALCIUM (DEPLIN ORAL) Take 15 mg by mouth every morning . LISINOPRIL (PRINIVIL,ZESTRIL) 10 MG TABLET Take 10 mg by mouth every morning . METOPROLOL SUCCINATE (TOPROL-XL) 25 MG 24 HR TABLET Take 1 (one) tablet (25 mg total) by mouth 2 (two) times a day . PANTOPRAZOLE (PROTONIX) 40 MG TABLET Take 40 mg by mouth every morning . TRAZODONE (DESYREL) 100 MG TABLET Take 300 mg by mouth nightly . Modified Medications No medications on file Discontinued Medications No medications on file Allergies Allergen Reactions Codeine Hives Penicillin Fentanyl Itching Pt does not recall any reaction Latex Rash Review of Systems Constitution: Positive for malaise/fatigue. Negative for diaphoresis, weight gain and weight loss. HENT: Negative for hearing loss, nosebleeds and tinnitus. Eyes: Negative for blurred vision and visual disturbance. Cardiovascular: Positive for dyspnea on exertion. Negative for chest pain, claudication, cyanosis, irregular heartbeat, leg swelling, near-syncope, orthopnea, palpitations, paroxysmal nocturnal dyspnea and syncope. Respiratory: Positive for shortness of breath. Negative for hemoptysis and snoring. Endocrine: Negative for cold intolerance and heat intolerance. Hematologic/Lymphatic: Does not bruise/bleed easily. Skin: Negative for flushing, poor wound healing and rash. Musculoskeletal: Negative for back pain, muscle weakness and myalgias. Gastrointestinal: Negative for abdominal pain, change in bowel habit, melena, nausea and vomiting. Genitourinary: Negative for decreased libido and hematuria. Neurological: Negative for loss of balance and numbness. Psychiatric/Behavioral: Negative for memory loss. The patient is not nervous/anxious. Objective: Physical Exam Constitutional: She is oriented to person, place, and time. She appears well- developed and well-nourished. Obese HENT: Head: Normocephalic. Mouth/Throat: Oropharynx is clear and moist. Eyes: Conjunctivae and lids are normal. Neck: No JVD present. Carotid bruit is not present. Neck veins are not elevated lungs are clear. Voice is somewhat mildly hoarse. No cyanosis. Cardiovascular: Normal rate, regular rhythm, normal heart sounds and normal pulses. Pulmonary/Chest: Effort normal and breath sounds normal. Abdominal: Soft. Bowel sounds are normal. She exhibits no mass. There is no hepatosplenomegaly. There is no abdominal tenderness. Abdomen obese. Soft Musculoskeletal: Normal range of motion. General: Edema present. Comments: 1+ pedal edema bilaterally nonpitting. Negative Homans bilaterally. Body mass index is 48.76 kg/m . Neurological: She is alert and oriented to person, place, and time. Gait normal. Skin: Skin is warm and intact. No rash noted. Psychiatric: She has a normal mood and affect. Her behavior is normal. Vitals reviewed. Vitals: Vitals: 08/22/19 1419 BP: 111/67 BP Location: Left arm Patient Position: Sitting BP Cuff Size: Adult Pulse: 91 SpO2: 93% Weight: 132.9 kg (293 lb) Body mass index is 48.76 kg/m . Orders Placed This Encounter Procedures CT Angiogram Chest Standing Status: Future Standing Expiration Date: 08/22/2020 Scheduling Instructions: Chronic dyspnea. Order Specific Question: Reason for Exam: Answer: mcgowan unexplained. Order Specific Question: Is the patient ? Answer: No Order Specific Question: Does the patient require moderate sedation? Answer: Yes Order Specific Question: Does this exam require IV hydration? Answer: No BUN Standing Status: Future Number of Occurrences: 1 Standing Expiration Date: 08/22/2020 Creatinine, serum Standing Status: Future Number of Occurrences: 1 Standing Expiration Date: 08/22/2020 Echocardiogram complete Standing Status: Future Standing Expiration Date: 08/22/2020 Order Specific Question: Reason for exam Answer: Dyspnea Order Specific Question: Is the patient ? Answer: No Follow Up Ordered: No follow-ups on file. Giorgi Thomas MD * Anay Pedersen MA - 08/22/2019 2:15 PM EST Review of Systems Constitution: Positive for malaise/fatigue. Negative for diaphoresis, weight gain and weight loss. HENT: Negative for hearing loss, nosebleeds and tinnitus. Eyes: Negative for blurred vision and visual disturbance. Cardiovascular: Positive for dyspnea on exertion. Negative for chest pain, claudication, cyanosis, irregular heartbeat, leg swelling, near-syncope, orthopnea, palpitations, paroxysmal nocturnal dyspnea and syncope. Respiratory: Positive for shortness of breath. Negative for hemoptysis and snoring. Endocrine: Negative for cold intolerance and heat intolerance. Hematologic/Lymphatic: Does not bruise/bleed easily. Skin: Negative for flushing, poor wound healing and rash. Musculoskeletal: Negative for back pain, muscle weakness and myalgias. Gastrointestinal: Negative for abdominal pain, change in bowel habit, melena, nausea and vomiting. Genitourinary: Negative for decreased libido and hematuria. Neurological: Negative for loss of balance and numbness. Psychiatric/Behavioral: Negative for memory loss. The patient is not nervous/anxious. documented in this encounter Instructions * Patient Instructions* Digna Downs DO - 07/28/2019 1:15 PM EST Preoperative Medication Instructions In preparation for surgery please continue all of your current medications with the following changes: Micheline Fox Home Medication Instructions Prior to Surgery RIVERA:[id number] Printed on:07/28/19 4179 Medication Information Take last dose on Take the morning of surgery Comment(s) ALPRAZolam (XANAX) 1 MG tablet Take 0.5-1 mg by mouth daily 0.5 mg-1 mg Daily . Only if needed cholecalciferol, vitamin D3, (VITAMIN D3 ORAL) Take 125 mcg by mouth daily . 07/21/19 desvenlafaxine succinate (PRISTIQ) 50 MG 24 hr tablet Take 50 mg by mouth every morning . yes docusate sodium (COLACE) 100 MG capsule Take 100 mg by mouth 2 (two) times a day . no DULoxetine (CYMBALTA) 60 MG capsule Take 60 mg by mouth every morning . yes eszopiclone (LUNESTA) 2 MG tablet Take 2 mg by mouth nightly . no furosemide (LASIX) 20 MG tablet Take 40 mg by mouth every morning Reasons: pt takes 2 tabs daily. no levomefolate calcium (DEPLIN ORAL) Take 15 mg by mouth every morning . no lisinopril (PRINIVIL,ZESTRIL) 10 MG tablet Take 10 mg by mouth every morning . no metoprolol succinate (TOPROL-XL) 25 MG 24 hr tablet Take 1 (one) tablet (25 mg total) by mouth 2 (two) times a day . yes pantoprazole (PROTONIX) 40 MG tablet Take 40 mg by mouth every morning . Yes if needed traZODone (DESYREL) 100 MG tablet Take 300 mg by mouth nightly . no Please take your evening medications as usual on the evening prior to surgery. STOP Aspirin (and medications that contain aspirin, such as [place], Pepto- Bismol, Anacin), antiinflammatory medications such as Advil, Motrin, Ibuprofen, Naproxen, Aleve, [place], Pepto-Bismol, Anacin, Diclofenac, Voltaren, Daypro, Etodolac, Ketoprofen, Meloxicam, Piroxicam, Relafen, Nabumetone, etc. Also discontinue Vitamin C, Vitamin E, [place]-3 Fatty Acid, Fish Oil or Lovaza, as wellas all herbal medications and supplements. Take last dose on 07/21/2019. Tylenol (acetaminophen) is acceptable, but be careful to follow the label directions. On the morning of surgery, with a small amount of water, take ONLY the medications listed above in the column Take the morning of surgery. If you are using Eye Drops or Inhalers, please bring them to the hospital. If you have sleep apnea and have a CPAP/BIPAP device, please bring it with you on the day of surgery. documented in this encounter* Patient Instructions* Lupe Jeong RN - 06/30/2019 4:11 PM EDT How to Contact your Care Team: Provider: Dr. Giorgi Thomas MD Senior Private Client Advisor: Lupe Jeong RN Heart Catheterization Date and Time of your procedure_ThursdayJuly 08 at 9 AM_ Please arrive at [facility] and check in at the Outpatient Registration by 7 AM_ DO NOT eat or drink anything after midnight on night prior to cath The morning of your procedure you should take your medications with as little water as possible. Bring a list of all medications you take along with dosage and frequency that you take the medications. You will be given a sedative for the procedure and therefore you will not be able to drive home. Please have a ride arranged. Please be advised that occasionally you may experience significant delays for up to several hours due to emergencies and/or unavoidable circumstances. If you have any questions or concerns please contact us at [phone]. documented in this encounter* Patient Instructions* Anay Pedersen MA - 06/23/2019 2:19 PM EDT How to Contact your Care Team: Provider: Dr. Giorgi Thomas MD Senior Private Client Advisor: Lupe Jeong RN REFILLS: When in need for refills please call your care team or the office at [phone]. Please include medication name, pharmacy name, and specify 30-day or 90-day supply. Please check with your pharmacy within 24 hours of request for your refill. You must follow up as directed to continue current refills. Thank you! documented in this encounter* Patient Instructions* Anay Pedersen MA - 08/22/2019 2:14 PM EST How to Contact your Care Team: Provider: Dr. Giorgi Thomas MD Senior Private Client Advisor: Lupe Jeong RN REFILLS: When in need for refills please call your care team or the office at [phone]. Please include medication name, pharmacy name, and specify 30-day or 90-day supply. Please check with your pharmacy within 24 hours of request for your refill. You must follow up as directed to continue current refills. Thank you! documented in this encounter Assessments Diagnosis Preop examination- Primary Unspecified pre-operative examination Personal history of colonic polyps Morbid obesity (HCC) Morbid obesity Coronary artery disease involving mechoopda coronary artery of mechoopda heart without angina pectoris Other cirrhosis of liver (HCC) KELLY (obstructive sleep apnea) Obstructive sleep apnea (adult) (pediatric) Essential hypertension Unspecified essential hypertension Hyperlipidemia, unspecified hyperlipidemia type Diagnosis Epigastric pain Abdominal pain, epigastric Other cirrhosis of liver (HCC) Personal history of colonic polyps Gastrointestinal symptoms Other symptoms involving digestive system Hematochezia Blood in stool Hepatic encephalopathy (HCC) Hepatic encephalopathy Diagnosis MCGOWAN (dyspnea on exertion) Other dyspnea and respiratory abnormality Diagnosis Arthritis of right shoulder region Bronchospasm Acute bronchospasm Diagnosis Stomach ache Dyspepsia and other specified disorders of function of stomach Diagnosis COVID-19- Primary Diagnosis Chest pain, unspecified type- Primary MCGOWAN (dyspnea on exertion) Other dyspnea and respiratory abnormality Diagnosis Contact with or exposure to viral disease- Primary Contact with or exposure to other viral diseases Diagnosis Bilateral pain of leg and foot Diagnosis Foot pain- Primary Pain in soft tissues of limb Acute post-operative pain Intractable pain Cellulitis, unspecified cellulitis site Diagnosis Chest pain, unspecified type- Primary MCGOWAN (dyspnea on exertion) Other dyspnea and respiratory abnormality ASHD (arteriosclerotic heart disease) Coronary atherosclerosis of unspecified type of vessel, mechoopda or graft Diagnosis MCGOWAN (dyspnea on exertion) Other dyspnea and respiratory abnormality ASHD (arteriosclerotic heart disease) Coronary atherosclerosis of unspecified type of vessel, mechoopda or graft Diagnosis Chest pain, unspecified type MCGOWAN (dyspnea on exertion) Other dyspnea and respiratory abnormality ASHD (arteriosclerotic heart disease) Coronary atherosclerosis of unspecified type of vessel, mechoopda or graft Reason for Referral Status Reason Specialty Diagnoses / Procedures Re ferred By Contact Referred To Contact Pending Review Radiology Diagnoses Epigastric pain Other cirrhosis of liver (HCC) Personal history of colonic polyps Gastrointestinal symptoms Hematochezia Hepatic encephalopathy (HCC) Procedures US Abdomen Limited Study US Abdomen Complete Julia Anderson MD [address] [place] [address] Status Reason Specialty Diagnoses / Procedures Referre d By Contact Referred To Contact Closed Radiology Diagnoses MCGOWAN (dyspnea on exertion) Procedures CT Pulmonary Arteries Giorgi Thomas MD [address] [address] Status Reason Specialty Diagnoses / Procedures Referre d By Contact Referred To Contact Closed Radiology Diagnoses Stomach ache Procedures CT Abdomen Pelvis Without Contrast Aleida Leal MD [address] [place] [address] Status Reason Specialty Diagnoses / Procedures Referre d By Contact Referred To Contact Closed Cardiology Diagnoses MCGOWAN (dyspnea on exertion) Procedures Echocardiogram complete Giorgi Thomas MD [address] [address] Status Reason Specialty Diagnoses / Procedures Referre d By Contact Referred To Contact Closed Cardiology Diagnoses Bilateral pain of leg and foot Procedures Ultrasound duplex venous legs bilat Digna Enriquez, KEVIN [address] [place] [address] Status Reason Specialty Diagnoses / Procedures Referred By Contact Referred To Contact Authorized Patient Preference Home Health Services Diagnoses Acute post-operative pain Nehemias Sun MD [address] [place] [address] Status Reason Specialty Diagnoses / Procedures Referred By Contact Referred To Contact Pending Review Radiology Diagnoses MCGOWAN (dyspnea on exertion) Procedures CT Angiogram Chest Giorgi Thomas MD [address] [address] Status Reason Specialty Diagnoses / Procedures Referred By Contact Referred To Contact Pending Review Cardiology Diagnoses MCGOWAN (dyspnea on exertion) Procedures Echocardiogram complete Giorgi Thomas MD [address] [address] Status Reason Specialty Diagnoses / Procedures Referre d By Contact Referred To Contact Closed Radiology Diagnoses Lump of skin of upper extremity, right Procedures US Upper Extremity Non Vascular Limited Right Leticia Sylvester MD [address] [place] [address] Specialty Diagnoses / Procedures Referred By Contac t Referred To Contact Procedures ECG Isreal Brush PA-C [address] [place] [address] Referral ID Status Reason Start Date Expiration Date V isits Requested Visits Authorized [id number] New Request 01/29/2022 02/23/2023 1 1 Specialty Diagnoses / Procedures Referred By Contac t Referred To Contact Procedures NUC MYOCARD PERF STRESS MIBI PHARM WA CHG MYOCARDIAL SPECT MULTIPLE STUDIES CHG MYOCARDIAL SPECT MULTIPLE STUDIES-T WA CARDIAC STRESS TST,INTERP/REPT ONLY WA CV STRS TST XERS&/OR RX CONT ECG W/O I&R Giorgi Adan, EXAMINATION SCORER-CONTRACTS DIRECTOR [address] [place] [address] Referral ID Status Reason Start Date Expiration Date Visits Re quested Visits Authorized [id number] Closed 01/29/2022 02/23/2023 1 1 Referral ID Status Reason Start Date Expiration Date V isits Requested Visits Authorized [id number] New Request 01/29/2022 02/23/2023 1 1 Specialty Diagnoses / Procedures Referred By Contac t Referred To Contact Danyell Patel, PT [address] [place] [address] Referral ID Status Reason Start Date Expiration Date Visits Re quested Visits Authorized Specialty Diagnoses / Procedures Referred By Contac t Referred To Contact Procedures INPATIENT ADMISSION NOTIFICATION Av Bertrand MD [address] [place] [address] Referral ID Status Reason Start Date Expiration Date V isits Requested Visits Authorized [id number] New Request 01/27/2022 02/21/2023 1 1 Specialty Diagnoses / Procedures Referred By Contac t Referred To Contact Procedures ECG Silas Starkey MD [address] [place] [address] Referral ID Status Reason Start Date Expiration Date V isits Requested Visits Authorized [id number] Pending Review 01/27/2022 02/21/2023 1 1 Specialty Diagnoses / Procedures Referred By Contac t Referred To Contact Gastroenterology Diagnoses Hepatic cirrhosis, unspecified hepatic cirrhosis type, unspecified whether ascites present (HCC) Abdominal pain, unspecified abdominal location Abnormal finding of blood chemistry, unspecified Abnormal findings on diagnostic imaging of other parts of digestive tract Jaime Carter APRN-CNP [address] [place] [address] [place] [address] [facility] GASTROENTEROLOGY [address] [place] [address] Referral ID Status Reason Start Date Expiration Date V isits Requested Visits Authorized [id number] Authorized 04/23/2022 04/23/2023 3 3 Scheduling Instructions Please call the Gastroenterology Clinic at to schedule an appointment if one was not made for you today. Question Answer Reason for Referral: Bloating [6] Which GI clinic should the patient be scheduled in? General GI Clinic Comments No prior visits in Gastroenterology Specialty Diagnoses / Procedures Referred By Contac t Referred To Contact Radiology Diagnoses Hepatic cirrhosis, unspecified hepatic cirrhosis type, unspecified whether ascites present (HCC) Abdominal pain, unspecified abdominal location Procedures CT ABDOMEN/PELVIS W/ CONTRAST Jaime Carter APRN-CNP [address] [place] [address] [place] [address] [facility] CT SCAN Referral ID Status Reason Start Date Expiration Date V isits Requested Visits Authorized [id number] Authorized 04/23/2022 04/23/2023 1 1 Specialty Diagnoses / Procedures Referred By Contac t Referred To Contact Radiology Diagnoses Early satiety Procedures NM GASTRIC EMPTYING STUDY Eusebia Jones, BHAVANICONTRACTS DIRECTOR [address] [place] [address] [place] [address] [facility] NUCLEAR MEDICINE [address] [place] [address] Referral ID Status Reason Start Date Expiration Date V isits Requested Visits Authorized [id number] Pending Review 08/19/2022 08/19/2023 1 1 Specialty Diagnoses / Procedures Referred By Contac t Referred To Contact General Surgery Diagnoses Grade I hemorrhoids Eusebia Jones, EXAMINATION SCORER-CONTRACTS DIRECTOR [address] [place] [address] S SURGERY GENERAL [address] [id number] Referral ID Status Reason Start Date Expiration Date V isits Requested Visits Authorized [id number] Authorized 08/19/2022 08/19/2023 3 3 Scheduling Instructions Please call the Surgery Clinic at to schedule an appointment if one was not made for you today. Question Answer Reason for evaluation: Pilonidal/Hemorrhoid Specialty Diagnoses / Procedures Referred By Contac t Referred To Contact Diagnoses Other microscopic hematuria Urinary frequency Procedures CT UROGRAM ABDOMEN/PELVIS W/ CT POST PROCESSING Av Delgado MD [address] [address] Referral ID Status Reason Start Date Expiration Date V isits Requested Visits Authorized [id number] Auth Not Needed 10/01/2022 10/26/2023 1 1 Referral ID Status Reason Start Date Expiration Date Visits Re quested Visits Authorized [id number] Closed 10/01/2022 10/26/2023 1 1 Specialty Diagnoses / Procedures Referred By Contac t Referred To Contact Social Work Diagnoses Hypertensive urgency Giorgi Adan, EXAMINATION SCORER-CONTRACTS DIRECTOR [address] [place] [address] Referral ID Status Reason Start Date Expiration Date V isits Requested Visits Authorized [id number] New Request 05/26/2023 06/19/2024 1 1 Specialty Diagnoses / Procedures Referred By Contac t Referred To Contact [facility] [address] [place] [address] Specialty Diagnoses / Procedures Referred By Contac t Referred To Contact Family Medicine Diagnoses Hypertensive urgency Giorgi Adan, EXAMINATION SCORER-CONTRACTS DIRECTOR [address] [place] [address] Leticia Sylvester MD [address] [place] [address] Referral ID Status Reason Start Date Expiration Date V isits Requested Visits Authorized [id number] New Request 05/24/2023 06/17/2024 1 1 Specialty Diagnoses / Procedures Referred By Contac t Referred To Contact Procedures US RENAL ARTERIES iGorgi Adan, EXAMINATION SCORER-CONTRACTS DIRECTOR [address] [place] [address] Referral ID Status Reason Start Date Expiration Date Visits Re quested Visits Authorized [id number] Closed 05/22/2023 06/15/2024 1 1 Specialty Diagnoses / Procedures Referred By Contac t Referred To Contact Procedures INPATIENT ADMISSION NOTIFICATION Calvin Pimentel, DO [address] [place] [address] Referral ID Status Reason Start Date Expiration Date V isits Requested Visits Authorized [id number] New Request 05/22/2023 06/15/2024 1 1 Specialty Diagnoses / Procedures Referred By Contac t Referred To Contact Procedures ECG Jose Eduardo Dumont MD [address] [place] [address] Referral ID Status Reason Start Date Expiration Date V isits Requested Visits Authorized [id number] New Request 05/22/2023 06/15/2024 1 1 Specialty Diagnoses / Procedures Referred By Contac t Referred To Contact Neurology Diagnoses Migraine with aura, with intractable migraine, so stated, with status migrainosus Leticia Sylvester MD [address] [facility] [place] [address] Dioni Mcdonald MD [address] [address] Referral ID Status Reason Start Date Expiration Date V isits Requested Visits Authorized [id number] Authorized 11/23/2023 11/22/2024 1 1 Specialty Diagnoses / Procedures Referred By Contac t Referred To Contact Internal Medicine Diagnoses Hepatic cirrhosis, unspecified hepatic cirrhosis type, unspecified whether ascites present (HCC) Assistance needed with transportation Anxiety about health Insomnia, unspecified type Fatty liver Jaime Carter APRN-CNP [address] [place] [address] [place] [address] [address] [place] [address] Referral ID Status Reason Start Date Expiration Date V isits Requested Visits Authorized [id number] Authorized 01/27/2024 01/26/2025 10 10 Scheduling Instructions Please call [phone] to schedule your appointment in Weight Management if an appointment was not yet made for you. Question Answer Is patient interested in weight loss surgery? No Specialty Diagnoses / Procedures Referred By Marco Antonio whitt Referred To Contact Jaime Carter APRN-CNP [address] [place] [address] [place] [address] Question Answer Referral Reason: TRANSPORTATION/DME Location Patient [facility] Specialty Diagnoses / Procedures Referred By Marco Antonio whitt Referred To Contact Psychology Diagnoses Hepatic cirrhosis, unspecified hepatic cirrhosis type, unspecified whether ascites present (HCC) Assistance needed with transportation Anxiety about health Insomnia, unspecified type Fatty liver Jaime Carter APRN-CNP [address] [place] [address] [place] [address] [facility] PSY ADULT GENERAL [address] [place] [address] Referral ID Status Reason Start Date Expiration Date V isits Requested Visits Authorized [id number] Authorized 01/27/2024 01/26/2025 3 3 Question Answer Reason for referral Cognitive behavioral therapy for insomnia (CBT-I) Specialty Diagnoses / Procedures Referred By Marco Antonio t Referred To Contact Radiology Diagnoses Hepatic cirrhosis, unspecified hepatic cirrhosis type, unspecified whether ascites present (HCC) Procedures US LIVER/GALL BLADDER/PANCREAS Jaime Carter APRN-CNP [address] [place] [address] [place] [address] S ULTRASOUND [address] [place] [address] Referral ID Status Reason Start Date Expiration Date V isits Requested Visits Authorized [id number] Authorized 01/27/2024 01/26/2025 1 1 Specialty Diagnoses / Procedures Referred By Marco Antonio whitt Referred To Contact Gastroenterology Diagnoses Hepatic cirrhosis, unspecified hepatic cirrhosis type, unspecified whether ascites present (HCC) Jaime Carter, AWILDA-CONTRACTS DIRECTOR [address] [facility] [place] [address] [place] [address] Referral ID Status Reason Start Date Expiration Date Visits Requested Visits Authorized [id number] Authorized [facility]atio n-[facility] 01/27/2024 01/26/2025 1 1 Scheduling Instructions Appointment Information: [facility] is located at [address] [place] [address]. Please plan to arrive at least 60 minutes before your scheduled procedure. Bring your photo ID, insurance card, and current medication insurance card. Parking is available at the west entrance, and you will enter through the doors with OUTPATIENT SURGERY signage. Upon entry the registration process will begin. Once completed, you will take the elevators to the FOURTH FLOOR, where a waiting area is located, a member of the endoscopy team will receive the patient. Please call [phone] Thursday-Thursday, 7:00am-6:00pm if you have any pre- procedural questions. If you are calling AFTER HOURS, please call [phone] to speak to the [facility] Nurse talent acquisition sourcer. If you need to cancel this appointment prior to the scheduled date, please call the Endoscopy call center at [phone] at least 48 hours before the appointment/procedure time. How to Prepare for the FibroScan Test No food or liquids (including water) for 3 hours prior to the procedure. What to Expect Once You Arrive for the FibroScan Test - A pain-free diagnostic test, FibroScan requires no sedation of any kind. - The procedure usually takes about 5 minutes. Your entire appointment will last about 30 minutes. - For the procedure, you will lie on your back with your right arm raised behind your head and your right abdominal area exposed. - A Certified Professional will apply a water-based gel to your skin and then place a non-invasive probe over your liver. - During the exam, you may feel a slight vibration on the skin at the tip of the probe as it delivers ultrasound waves to the area for measuring purposes. Referral ID Status Reason Start Date Expiration Date Visits Re quested Visits Authorized [id number] Closed 01/27/2024 01/26/2025 1 1 Specialty Diagnoses / Procedures Referred By Marco Antonio whitt Referred To Contact Sleep Lab Diagnoses KELLY (obstructive sleep apnea) Procedures Home sleep apnea test (HSAT) Eduardo Ahmadi DO [address] [facility] [place] [address] Referral ID Status Reason Start Date Expiration Date V isits Requested Visits Authorized [id number] Pending Review 02/26/2024 02/25/2025 1 1 Discharge Instructions * Attachments The following attachments cannot be sent through Care Everywhere. * EGD (Upper Endoscopy): Post-op (Northern [place]) * Colonoscopy: Post-op ([place]) * Monitored Anesthesia Care: MAC: General Info ([place]) * Sleep Apnea ([place]) documented in this encounter* Attachments The following attachments cannot be sent through Care Everywhere. * Wheezing or Bronchoconstriction ([place] Irish) * Arthritis (Northern Irish) * Headache: Tension ([place] Irish) * Fibromyalgia (Northern Irish) documented in this encounter* Discharge Instr - AVS First Page* Digna Enriquez DPM - 11/14/2020 11:48 AM EST Apply cam walker boot right foot Rest, ice and elevate right foot Take percocet for pain Take aspirin 325 mg twice a day Keep dressing dry , clean and intact Pt may partially weight bear with cam boot and walker Make appt to see Dr Enriquez on Thursday * Discharge Instr - Other Orders* Karin Givens RN - 11/14/2020 11:58 AM EST GENERAL POST-OPERATIVE PATIENT INSTRUCTIONS ANESTHESIA PRECAUTIONS: A responsible adult must stay with you for at least 24 hours after surgery. You may feel light headed,, dizzy, or nauseated during this time. Do not operate a vehicle (car, bike, motorcycle, mortician helper) machinery or power tools. Do not make any important decisions or drink any alcoholic beverages for 24 hours. Children should remain quiet today. No riding of bicycles, motorcycles, skateboards, playing on swings etc. Drink plenty of fluids today. Eat light, small, frequent meals today. Resume regular diet tomorrow. FOLLOW-UP: Please make an appointment with your physician for follow-up. Call your physician immediately if you have any fevers greater than 101, drainage from your wound that is not clear or looks infected, persistent bleeding, increasing abdominal pain, problems urinating, or persistent nausea/vomiting. DIET: You may eat any foods that you can tolerate. It is a good idea to eat a high fiber diet and take in plenty of fluids to prevent constipation. If you do become constipated you may want to take amild laxative or take ducolax tablets on a daily basis until your bowel habits are regular. Constipation can be very uncomfortable, along with straining, after recent surgery. ACTIVITY: You are encouraged to cough and deep breathe or use your incentive spirometer if you weregiven one, every 15-30 minutes when awake. This will help prevent respiratory complications and lowgrade fevers post-operatively if you had a general anesthetic. You are encouraged to walk and engage in light activity for the next two weeks. MEDICATIONS: Try to take narcotic medications and anti-inflammatory medications, such as ibuprofen,naprosyn, etc., with food. This will minimize stomach upset from the medication. Should you developnausea and vomiting from the pain medication, or develop a rash, please discontinue the medication and contact your physician. You should not drive, make important decisions, or operate machinery when taking narcotic pain medication. Do not take tylenol or tylenol products with narcotic medications. QUESTIONS: Please feel free to call your physician or the hospital dinkey operator slag if you have any questions, and they will be glad to assist you. documented in this encounter Hospital Course * Eli Morataya, CONTRACTS DIRECTOR - 12/01/2020 9:43 AM EST HOSPITALIST DISCHARGE SUMMARY Patient: Micheline Fox Account: [id number] Admitted: 11/28/2020 Discharge Date/Time: 12/01/2020 Clinical Summary FINAL DIAGNOSIS: Principal Problem: Foot pain REASON FOR HOSPITALIZATION AND ADMITTING DIAGNOSIS: Foot Pain Foot pain [M79.673] Intractable pain [R52] Acute post-operative pain [G89.18] HOSPITAL COURSE: Right foot pain Concern for surgical wound infection Heel spur and plantar fasciitis status post surgery -Blood cultures remain negative -Patient started on IV Clindamycin, will transition to oral on discharge -Venous doppler right leg negative -Podiatry consulted, no surgical intervention at this time, removed final sutures, wound cleansed with betadine and dry sterile dressing applied, Cam walker boot, activity as tolerated -X-ray right foot showing Mild soft tissue swelling of the proximal aspect of the right foot. No fracture dislocation or bony lesion is noted. Medial artifact of the midfoot as noted above. There is metallic linear density which may be consistent with needle measuring 1.5 cm in length themid aspect of the foot. Hypokalemia -Potassium 3.0 given 40 meq x 2 dose -Resolved Hypertension -Continue Metoprolol losartan and Bumex DVT prophylaxis -Lovenox CONDITION AT DISCHARGE: Stable Physical Examination: Blood pressure 112/74, pulse 60, temperature 98.4 F (36.9 C), temperature source Oral, resp. rate 16, height 5' 5 , weight (!) 146.6 kg (323 lb 3.1 oz), SpO2 90 %. General appearance: alert, cooperative, in no acute distress. Head/Neck: Head- normocephalic. Neck- supple, non-tender, without lymphadenopathy Eyes: No Scleral icterus or pallor; EOMI ENT: Trachea midline. Cardiovascular: regular rate and rhythm; normal S1, S2; no murmurs, rubs, clicks or gallops; No/+ peripheral edema. Respiratory: lungs clear to auscultation; without wheezes, rales or rhonchi. Abdomen: soft, non tender, non-distended; positive bowel sounds. Neurological: alert, oriented, normal speech; no focal findings or movement disorder noted. Musculoskeletal: no significant deformity noted. Skin: normal coloration, texture and turgor; no lesions or eruptions. Right foot surgical site wellapproximated, no erythema or edema noted. Procedures: No orders of the defined types were placed in this encounter. Consults: Procedures Consult Podiatry Inpatient consult to Podiatry Inpatient consult to Care Management Other Tests: No orders of the defined types were placed in this encounter. LAST LABS: Results from last 7 days Lab Units 12/01/20 0319 SODIUM mmol/L 144 POTASSIUM mmol/L 3.8 CHLORIDE mmol/L 112* BUN mg/dL 14 CREATININE mg/dL 0.98 GLUCOSE mg/dL 94 CALCIUM mg/dL 7.8* Invalid input(s): LABALBU Results from last 7 days Lab Units 12/01/20 0319 WBC K/mcL 3.50* HGB g/dL 11.8* HCT % 35.4* PLT K/mcL 96* Allergies: Codeine, Fentanyl, Latex, and Penicillin Discharge Diet: Diet Regular; Regular Disposition: Home Discharge Medications Medication List ASK your doctor about these medications albuterol 90 mcg/actuation inhaler Inhale 2 (two) puffs every 6 (six) hours as needed for wheezing . ALPRAZolam 1 MG tablet Commonly known as: XANAX aspirin 325 MG tablet bumetanide 1 MG tablet Commonly known as: BUMEX ciprofloxacin HCl 500 MG tablet Commonly known as: CIPRO conjugated estrogens vaginal cream Commonly known as: PREMARIN Ask about: Which instructions should I use? desvenlafaxine succinate 100 MG 24 hr tablet Commonly known as: PRISTIQ docusate sodium 100 MG capsule Commonly known as: COLACE doxycycline hyclate 100 MG capsule Commonly known as: VIBRAMYCIN DULoxetine 60 MG capsule Commonly known as: CYMBALTA eszopiclone 2 MG tablet Commonly known as: LUNESTA L-Methylfolate 15 mg Tab Generic drug: levomefolate calcium losartan 50 MG tablet Commonly known as: COZAAR metOLazone 2.5 MG tablet Commonly known as: ZAROXOLYN metoprolol succinate 25 MG 24 hr tablet Commonly known as: TOPROL-XL Take 1 (one) tablet (25 mg total) by mouth 2 (two) times a day . oxyCODONE-acetaminophen 5-325 mg per tablet Commonly known as: PERCOCET potassium chloride SA 20 MEQ tablet Commonly known as: K-DUR,KLOR-CON Rexulti 2 mg tablet Generic drug: brexpiprazole traZODone 100 MG tablet Commonly known as: DESYREL Physician(s) Family: Leticia Sylvester MD, , Address: [address] [facility] [address] Follow Up: [facility] Address: [address] [place], [place] [id number] Servicing Counties: [phone] Leticia Sylvester MD [address] [place] [id number] Follow up Digna Enriquez DPM [address] [place] [phone] Follow up 1 week Patient instructions, including activity, were given to the patient/family at discharge. Please seethe After Visit Summary in the medical record for details. Time spent on discharge: > 30 minutes Completed by: Eli Morataya on 12/01/20, 9:43 AM Associated attestation - Nehemias Sun MD - 12/01/2020 2:57 PM EST Patient seen, evaluated and managed by CONTRACTS DIRECTOR independently. I was not involved in the care of this patient, but was readily available for consultation if needed by CONTRACTS DIRECTOR. documented in this encounter Additional Source Comments INFORMATION SOURCE (unrecogn ized section and content) DATE CREATED AUTHOR 08/30/2018 [facility] DATE CREATED AUTHOR AUTHOR'S ORGANIZ ATION 08/08/2020 [facility] DATE CREATED AUTHOR AUTHOR'S ORGANIZ ATION 11/12/2020 [facility] DATE CREATED AUTHOR AUTHOR'S ORGANIZ ATION 10/21/2021 [facility] DATE CREATED AUTHOR AUTHOR'S ORGANIZ ATION 03/11/2023 [facility] DATE CREATED AUTHOR AUTHOR'S ORGANIZ ATION 05/21/2023 [facility] DATE CREATED AUTHOR AUTHOR'S ORGANIZ ATION 06/11/2023 [facility] DATE CREATED AUTHOR AUTHOR'S ORGANIZ ATION 12/31/2023 [facility] DATE CREATED AUTHOR AUTHOR'S ORGANIZ ATION 02/27/2024 [facility] DATE CREATED AUTHOR AUTHOR'S ORGANIZ ATION 03/02/2024 [facility] DATE CREATED AUTHOR AUTHOR'S ORGANIZ ATION 03/05/2024 [facility] DATE CREATED AUTHOR AUTHOR'S ORGANIZ ATION 03/06/2024 [facility] DATE CREATED AUTHOR AUTHOR'S ORGANIZ ATION 07/02/2024 [facility] Reason for Visit (unrecogniz ed section and content) Reason Comments Chest Pain Status Reason Specialty Diagnoses / Procedures Referre d By Contact Referred To Contact Reason Comments Pre-operative Medical Risk Stratificatio n Status Reason Specialty Diagnoses / Procedures Re ferred By Contact Referred To Contact Pending Review Radiology Diagnoses Epigastric pain Other cirrhosis of liver (HCC) Personal history of colonic polyps Gastrointestinal symptoms Hematochezia Hepatic encephalopathy (HCC) Procedures US Abdomen Limited Study US Abdomen Complete Julia Anderson MD [address] [place] [address] Status Reason Specialty Diagnoses / Procedures Referre d By Contact Referred To Contact Closed Radiology Diagnoses MCGOWAN (dyspnea on exertion) Procedures CT Pulmonary Arteries Giorgi Thomas MD [address] [address] Reason Comments Shortness of Breath Status Reason Specialty Diagnoses / Procedures Referre d By Contact Referred To Contact Closed Radiology Diagnoses Stomach ache Procedures CT Abdomen Pelvis Without Contrast Aleida Leal MD [address] [place] [address] Status Reason Specialty Diagnoses / Procedures Referre d By Contact Referred To Contact Closed Cardiology Diagnoses MCGOWAN (dyspnea on exertion) Procedures Echocardiogram complete Giorgi Thomas MD [address] [address] Reason Comments Nurse Consult Patient here for Hea rt Cath Set up Status Reason Specialty Diagnoses / Procedures Referre d By Contact Referred To Contact Diagnoses 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 Procedures EXCISION HEEL SPUR RIGHT FOOT Status Reason Specialty Diagnoses / Procedures Referre d By Contact Referred To Contact Reason Comments Difficulty Walking Status Reason Specialty Diagnoses / Procedures Referre d By Contact Referred To Contact Closed Cardiology Diagnoses Bilateral pain of leg and foot Procedures Ultrasound duplex venous legs Digna Arana DPM [address] [place] [address] Reason Comments Foot Pain Status Reason Specialty Diagnoses / Procedures Referre d By Contact Referred To Contact Diagnoses Foot pain Intractable pain Acute post-operative pain Status Reason Specialty Diagnoses / Procedures Referre d By Contact Referred To Contact Diagnoses CP/SOB Procedures HC LEFT HEART CATH Left Heart Cath Hari Acosta MD [address] [place] [address] Reason Comments Initial Visit (Intake) 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 Chest Pain Shortness of Breath Reason Comments Follow-up 6 wk f/u Shortness of Breath Reason Onset Date Comments Medication Refill Medication Refill 02/15/2021 Reason Comments Chest Pain Chest pain, weakness , tachycardia, shaky, and high blood pressure since yesterday Specialty Diagnoses / Procedures Referred By Marco Antonio whitt Referred To Contact Diagnoses Hypokalemia Chest pain, unspecified type Referral ID Status Reason Start Date Expiration Date Visits Re quested Visits Authorized [id number] 1 1 Reason Comments CONSULT, NEW GI Reason Comments GI FOLLOW UP Reason Comments COVID-19 Screening Specialty Diagnoses / Procedures Referred By Marco Antonio whitt Referred To Contact Gastroenterology Diagnoses Rectal bleeding [K62.5] Change in bowel habits [R19.4] RUQ pain [R10.11] Esophageal dysphagia [R13.19] Procedures COLONOSCOPY, FLEXIBLE, PROXIMAL TO SPLENIC FLEXURE; DX, W/WO SPECIMENS/COLON DECOMP (SEP PROC) COLONOSCOPY, FLEXIBLE, PROXIMAL TO SPLENIC FLEXURE; W/BIOPSY, SINGLE/MULTIPLE UPPER GI ENDOSCOPY; DX, W/WO SPECIMEN COLLECTION, BRUSHING/WASHING (SEP PROC) UPPER GI ENDOSCOPY; W/BIOPSY, SINGLE/MULTIPLE ESOPHAGOGASTRODUODENOS COPY AND COLONOSCOPY, GENERAL ANESTHESIA Jennifer Khoury MD [address] [place] [address] [facility] [employer] [facility] [address] [place] [address] Phone: [phone] Referral ID Status Reason Start Date Expiration Date Visits Re quested Visits Authorized [id number] 3 3 Reason Comments GI FOLLOW UP Reason Comments Cough Chest Congestion Nausea Diarrhea Started Thursday morni ng Reason Comments New Patient Blood in Urine Specialty Diagnoses / Procedures Referred By Contac t Referred To Contact Urology Diagnoses Hematuria, unspecified type Melanie Mooney MD [address] [place] [address] Av Delgado MD [address] [place] [phone] Referral ID Status Reason Start Date Expiration Date V isits Requested Visits Authorized [id number] New Request 09/10/2022 10/05/2023 1 1 Specialty Diagnoses / Procedures Referred By Contac t Referred To Contact Diagnoses Other microscopic hematuria Urinary frequency Procedures CT UROGRAM ABDOMEN/PELVIS W/ CT POST PROCESSING Av Delgado MD [address] [address] Referral ID Status Reason Start Date Expiration Date Visits Re quested Visits Authorized [id number] Closed 10/01/2022 10/26/2023 1 1 Reason Comments Cystoscopy Specialty Diagnoses / Procedures Referred By Contac t Referred To Contact [facility] Referral ID Status Reason Start Date Expiration Date Visits Re quested Visits Authorized [id number] 1 1 Reason Comments Leg Pain Pt reports left leg pain and rash on bilateral arms for past couple days . No known injury. No recent travels. Reason Comments Evaluation Specialty Diagnoses / Procedures Referred By Contac t Referred To Contact Vascular Surgery Diagnoses Pain in left lower leg Leticia Sylvester MD [address] [place] [address] [facility] [address] [facility] [address] Referral ID Status Reason Start Date Expiration Date V isits Requested Visits Authorized [id number] Pending Review 04/01/2023 03/31/2024 1 1 Reason Comments Hypertension States was at the st ore and checked bp and it was increased. C/o of chest pain and shortness of breath since yesterday. Specialty Diagnoses / Procedures Referred By Contac t Referred To Contact Diagnoses Anxiety Hypertensive urgency Acute intractable headache, unspecified headache type Calvin Pimentel, DO [address] [place] [address] [facility] Referral ID Status Reason Start Date Expiration Date Visits Re quested Visits Authorized [id number] 1 1 Reason Comments Pain Specialty Diagnoses / Procedures Referred By Contac t Referred To Contact Diagnoses Left knee pain, unspecified chronicity Procedures XR BONE LENGTH STUDY Carol Ann Vicente MD [address] [place] [address] Referral ID Status Reason Start Date Expiration Date V isits Requested Visits Authorized [id number] New Request 08/07/2023 08/31/2024 1 1 Reason Comments Constipation Patient states she h as not had a BM in about 7 days. Pt noted skin changes to her arms. Reason Comments GI FOLLOW UP Reason Comments Other family/social problem NOS TRANSPOR TATION Specialty Diagnoses / Procedures Referred By Contac t Referred To Contact Radiology Diagnoses Hepatic cirrhosis, unspecified hepatic cirrhosis type, unspecified whether ascites present (HCC) Procedures US LIVER/GALL BLADDER/PANCREAS Jaime Carter, EXAMINATION SCORER-CONTRACTS DIRECTOR [address] [place] [address] [facility] [address] [place] [address] Referral ID Status Reason Start Date Expiration Date Visits Re quested Visits Authorized [id number] Closed 01/27/2024 01/26/2025 1 1 Reason Comments Establish Care Digna Downs, DO - 07/28/2019 1:21 PM Joe Bookre MD - 07/29/2019 8:37 AM Digna Yi, DO - 07/28/2019 1:21 PM EST H&P Notes (unrecognized sect ion and content) Micheline Fox 1960 Encounter Diagnoses Name Primary? Preop examination Yes Personal history of colonic polyps Morbid obesity (HCC) Coronary artery disease involving mechoopda coronary artery of mechoopda heart without angina pectoris Other cirrhosis of liver (HCC) KELLY (obstructive sleep apnea) Essential hypertension Hyperlipidemia, unspecified hyperlipidemia type Procedure: Colonoscopy with Anesthesia, EGD with Anesthesia Surgeon: Dr. Sharp PCP: Leticia Sylvester MD Cardiology: Dr. Dickerson Date of Procedure: 07/29/19 DATE OF SERVICE 07/28/2019 ASSESSMENT 1. Personal history of colon polyps. 2. Abdominal pain. 3. 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 4. Nonobstructive coronary artery disease noted on left heart catheterization 07/08/2019. 5. Hypertension. 6. Hyperlipidemia. 7. Chronic bilateral lower extremity edema. 8. Depression. 9. Generalized anxiety disorder. 10. Insomnia. 11. Daily benzodiazepine use. 12. Latex allergy. 13. Vitamin D deficiency. 14. Noncompliant obstructive sleep apnea. 15. Gastroesophageal reflux disease. 16. Elevated body mass index. 17. Cervical degenerative disc disease. 18. Lumbar degenerative disc disease. 19. Osteoarthritis. 20. Unspecified headaches. 21. Dizziness. 22. Overactive bladder. 23. Thrombocytopenia. 24. Splenomegaly. 25. Previous tobacco use. 26. Family history significant for diabetes, coronary artery disease, myocardial infarction, hypertension, cerebrovascular accident, chronic obstructive pulmonary disease, unspecified liver disease, liver cancer, tongue cancer, throat cancer, stomach cancer. 1. ASA =3. 2. RCRI =1 . (Score/Risk of Major Cardiac Outcomes - 0/0.4%, 1/0.9%, 2/2.4%, 3 or more/>5.4%. This may overestimate the cardiac risks in lower risk procedures and underestimate the risks in vascular procedures. This study has been externally validated.) 3. Caprini Score =5 . (Score/Risk of Symptomatic VTE = 0/<0.5%, 1-2/1.5%, 3- 4/3.0%, 5 or greater/6% or greater). 4. Apfel Score = 2. (Score/Risk of PONV = 0/10%, 1/21%, 2/39%, 3/61%, 4/79%) This score has been externally validated. Plan: 1. The patient falls into an acceptable cardiac risk for category for their planned procedure per 2014 ACC Guidelines and Recommendations. 2. Endocarditis prophylaxis is not required per 2017 ACC/AHA Guidelines and Recommendations. 3. Avoid/limit perioperative hypothermia. 4. Perioperative thromboembolic prophylaxis is recommended per 2016 ACCP Guidelines and Recommendations (or 2011 AAOS Guidelines for orthopedic procedures, or 2008 IVETTE Guidelines for neurosurgical procedures). 5. The patient s head of the bed should be elevated to 30 degrees post- operatively unless contraindicated by the procedure. 6. The patient has been advised to discontinue NSAID s and alternative medicines (Vitamins, herbals, etc.) seven days prior to surgery. Perioperative management of the patient's antiplatelet therapy is recommended per the 2016 ACC/AHA Guidelines - Focused Update on Duration of Dual Antiplatelet Therapy in Patient's With Coronary Artery Disease or in accordance with their virtual reality specialist's recommendations. 7. The patient may use appropriate amounts of acetaminophen pre-operatively for pain management if not allergic and if no history of liver disease. 8. The patient was advised to follow the current [facility] guidelines regarding fluid intake after midnight and to take any recommended medications on the morning of surgery with a sip of water. 9. Ordered laboratory tests will be reviewed pre-operatively for any pertinent abnormalities. 10. Post-operative spirometry/volurex, deep breathing maneuvers, and early ambulation is recommended if not contraindicated by the procedure. 11. This report will be made available to the requesting surgeon through the electronic medical records. 1. The patient was advised to refrain from taking their VANIA inhibitors or ARB's on the morning of surgery per [facility] Anesthesia recommendations. 1. The patient is currently on a scheduled beta-hero, which should be continued perioperatively per 2017 ACC Guidelines and Recommendations. 1. The patient's benzodiazepines should be resumed post-operatively to avoid benzodiazepine withdraw. 1. The patient was advised that KELLY/SDB is a potential risk in the perioperative period, including the potential for respiratory failure per 2014 ASA Guidelines. 2. The patient was offered the opportunity to be referred for a pre-operative KELLY/SBD evaluation in order to further risk stratify and potentially reduce this risk, understanding that this may delay their procedure. 3. The patient elects to proceed with surgery as scheduled, with the understanding that they could potentially reduce this risk. 4. The patient may warrant closer monitoring post-operatively for signs of KELLY/SDB. 5. Post-operative protocols for patients with suspected/non-compliant KELLY/SDB should be followed. 6. Post-operative capnography may be of potential benefit in this patient. 7. Cautious perioperative use of opioids and benzodiazepines is recommended in this patient. 8. The appropriate use of opioid sparing analgesia is recommended. 2. Perioperative nebulizers can be used as needed. PREOPERATIVE HISTORY AND PHYSICAL EXAMINATION HISTORY OF PRESENT ILLNESS Ms. Fox is a pleasant 59-year-old white female with multiple medical problems, who presents today for preoperative consultation and risk stratification at the request of Dr. Sharp for a planned colonoscopy and EGD with anesthesia on 07/29/2019. The patient does have a known history of minimal nonobstructive coronary artery disease. The patient did undergo a left heart catheterization on July 08, 2019. This study demonstrated evidence of nonobstructive coronary disease. The patient was noted to have a normal left main coronary artery, a 30% to 40% mid RCA lesion, a 30% to 40% mid circumflex lesion, and mild diffuse disease in the LAD. A copy of that report is available in the electronic medical records for review and verification. The patient did not require any intervention based on the study results. The patient believes her blood pressure and cholesterol have been adequately controlled on her current regimen. The patient is noted to be on a beta blocking agent at this time. The patient denies a history of diabetes, renal insufficiency, cerebrovascular disease, peripheral arterial disease, or valvular heart disease. The patient is noted to be on a benzodiazepine on a b.i.d. basis. The patient's benzodiazepine should be resumed postoperatively so as to avoid the possibility of benzodiazepine withdrawal. The patient reports she does have untreated obstructive sleep apnea. The patient was advised that untreated sleep apnea is a potential risk for surgery according to the 2014 ASA guidelines. The patient was advised she could decrease this risk by re-investigating treatment options for her sleep apnea prior to her procedure. The patient does not wish to delay her surgery for this risk reduction. The patient may warrant closer monitoring postoperatively for possible signs of sleep apnea. The patient reports she does have a history of cirrhosis secondary to fatty liver disease and hepatitis C. The patient reports she was treated for her hepatitis C in the past and believes her viral loads are currently undetectable. The patient is not aware of having esophageal varices or portal hypertension. The patient is noted to be thrombocytopenic, however. The patient does have a history of mild splenomegaly as well. The patient does not demonstrate any clinical evidence of hepatic decompensation. The patient is unaware of what her MELD score is. The patient is not clear on the stage of her liver disease, either. The patient has undergone several surgeries in the past, all of which were uneventful from a cardiac and anesthesia standpoint. The patient's functional capacity is somewhat limited at this time. The patient is able to achieve her activities of daily living but does not necessarily climb stairs or exercise. At her described functional capacity of less than 4 METs, the patient is not reporting any exertional chest pain, atypical chest pain, palpitations, syncope, near syncope, orthopnea, PND, claudication dyspnea on exertion, or shortness of breath. The patient does complain of lower extremity edema, which is somewhat noticeable on exam today. The patient does have cardiac disease in her family history. The patient denies any personal or family history significant for bleeding diathesis or thromboembolic disease. The patient reports she is a former smoker and did quit smoking about 5 years ago. The patient does not believe she has any underlying COPD or emphysema associated with her tobacco use. The patient's lung exam is clear today with a room air pulse oximeter of 93% The patient's EKG performed on 06/23/2019 demonstrates a borderline sinus tachycardia. The patient had no other acute complaints at this time. Allergies Allergen Reactions Codeine Hives Penicillin Fentanyl Itching Pt does not recall any reaction Latex Rash Micheline Fox Home Medication Instructions Prior to Surgery RIVERA:[id number] Printed on:07/28/19 1321 Medication Information Take last dose on Take the morning of surgery Comment(s) ALPRAZolam (XANAX) 1 MG tablet Take 0.5-1 mg by mouth daily 0.5 mg-1 mg Daily . cholecalciferol, vitamin D3, (VITAMIN D3 ORAL) Take 125 mcg by mouth daily . desvenlafaxine succinate (PRISTIQ) 50 MG 24 hr tablet Take 50 mg by mouth every morning . docusate sodium (COLACE) 100 MG capsule Take 100 mg by mouth 2 (two) times a day . DULoxetine (CYMBALTA) 60 MG capsule Take 60 mg by mouth every morning . eszopiclone (LUNESTA) 2 MG tablet Take 2 mg by mouth nightly . furosemide (LASIX) 20 MG tablet Take 40 mg by mouth every morning Reasons: pt takes 2 tabs daily. levomefolate calcium (DEPLIN ORAL) Take 15 mg by mouth every morning . lisinopril (PRINIVIL,ZESTRIL) 10 MG tablet Take 10 mg by mouth every morning . metoprolol succinate (TOPROL-XL) 25 MG 24 hr tablet Take 1 (one) tablet (25 mg total) by mouth 2 (two) times a day . pantoprazole (PROTONIX) 40 MG tablet Take 40 mg by mouth every morning . traZODone (DESYREL) 100 MG tablet Take 300 mg by mouth nightly . Past Medical History: Diagnosis Date Arthritis Cirrhosis (HCC) Hepatitis C History of cardiac cath 07/01/2019 Hypertension Sleep apnea, obstructive Does not use machine Past Surgical History: Procedure Laterality Date BACK SURGERY 1999 CARDIAC CATHETERIZATION GASTRIC BYPASS 1996 LEFT HEART CATH N/A 07/08/2019 Procedure: Left Heart Cath; Surgeon: Hari Acosta MD; Location: [facility]; Service: Cardiovascular HERNIA REPAIR NECK SURGERY 1999 Social History Socioeconomic History Marital status: Spouse name: Not on file Number of children: Not on file Years of education: Not on file Highest education level: Not on file Occupational History Not on file Social Needs Financial resource strain: Not on file Food insecurity: Worry: Not on file Inability: Not on file Transportation needs: Medical: Not on file Non-medical: Not on file Tobacco Use Smoking status: Former Smoker Packs/day: 0.00 Smokeless tobacco: Never Used Tobacco comment: quit 4 years ago Substance and Sexual Activity Alcohol use: Never Frequency: Never Drug use: Not on file Sexual activity: Not on file Lifestyle Physical activity: Days per week: Not on file Minutes per session: Not on file Stress: Not on file Relationships Social connections: Talks on phone: Not on file Gets together: Not on file Attends cheondoism service: Not on file Active member of club or organization: Not on file Attends meetings of clubs or organizations: Not on file Relationship status: Not on file Other Topics Concern Not on file Social History Narrative Not on file Family History Problem Relation Age of Onset Melanoma Father Heart attack Father Heart disease Father No Known Problems Mother Heart disease Maternal Grandmother Heart disease Maternal Grandfather No Known Problems Brother No Known Problems Brother Review of Systems Constitution: Positive for weight gain. Negative for chills, decreased appetite, diaphoresis, fever, malaise/fatigue, night sweats and weight loss. HENT: Negative. Negative for congestion, ear discharge, ear pain, hearing loss, hoarse voice, nosebleeds, odynophagia, sore throat, stridor and tinnitus. Eyes: Negative for blurred vision, discharge, double vision, pain, photophobia, redness, vision loss in left eye, vision loss in right eye, visual disturbance and visual halos. Cardiovascular: Positive for chest pain and leg swelling. Negative for claudication, cyanosis, dyspnea on exertion, irregular heartbeat, near-syncope, orthopnea, palpitations, paroxysmal nocturnal dyspnea and syncope. Respiratory: Negative. Negative for cough, hemoptysis, shortness of breath, sleep disturbances due to breathing, snoring, sputum production and wheezing. Endocrine: Negative for cold intolerance, heat intolerance, polydipsia, polyphagia and polyuria. Hematologic/Lymphatic: Negative for adenopathy and bleeding problem. Does not bruise/bleed easily. Skin: Negative. Negative for color change, dry skin, flushing, itching, nail changes, poor wound healing, rash, skin cancer, suspicious lesions and unusual hair distribution. Musculoskeletal: Positive for arthritis, back pain, muscle cramps, muscle weakness, myalgias and neck pain. Negative for falls, gout, joint pain, joint swelling and stiffness. Gastrointestinal: Positive for bloating, abdominal pain, constipation, diarrhea, dysphagia and heartburn. Negative for anorexia, change in bowel habit, bowel incontinence, excessive appetite, flatus, hematemesis, hematochezia, hemorrhoids, jaundice, melena, nausea and vomiting. Genitourinary: Positive for bladder incontinence, dysuria, frequency and urgency. Negative for decreased libido, flank pain, genital sores, hematuria, hesitancy, incomplete emptying, menorrhagia, missed menses, nocturia, non-menstrual bleeding and pelvic pain. Neurological: Positive for difficulty with concentration, disturbances in coordination, dizziness and headaches. Negative for aphonia, brief paralysis, excessive daytime sleepiness, focal weakness, light-headedness, loss of balance, numbness, paresthesias, seizures, sensory change, tremors, vertigo and weakness. Psychiatric/Behavioral: Positive for depression. Negative for altered mental status, hallucinations, hypervigilance, memory loss, substance abuse, suicidal ideas and thoughts of violence. The patient has insomnia and is nervous/anxious. Allergic/Immunologic: Negative for environmental allergies, HIV exposure, hives and persistent infections. Vitals: 07/28/19 1238 BP: 135/83 Pulse: 77 Resp: 18 Temp: 98.6 F (37 C) TempSrc: Oral SpO2: 93% Weight: 132.2 kg (291 lb 7.2 oz) Height: 5' 5 Physical Exam Vitals signs and nursing note reviewed. Constitutional: General: She is not in acute distress. Appearance: She is well-developed. She is obese. She is not diaphoretic. HENT: Head: Normocephalic and atraumatic. Right Ear: External ear normal. Left Ear: External ear normal. Nose: Nose normal. Mouth/Throat: Pharynx: No oropharyngeal exudate. Eyes: General: No scleral icterus. Right eye: No discharge. Left eye: No discharge. Conjunctiva/sclera: Conjunctivae normal. Pupils: Pupils are equal, round, and reactive to light. Neck: Musculoskeletal: Normal range of motion and neck supple. Thyroid: No thyromegaly. Vascular: No JVD. Trachea: No tracheal deviation. Cardiovascular: Rate and Rhythm: Normal rate and regular rhythm. Heart sounds: Normal heart sounds. No murmur. No friction rub. No gallop. Pulmonary: Effort: Pulmonary effort is normal. No respiratory distress. Breath sounds: Normal breath sounds. No stridor. No wheezing or rales. Chest: Chest wall: No tenderness. Abdominal: General: Bowel sounds are normal. There is no distension. Palpations: Abdomen is soft. There is no mass. Tenderness: There is no tenderness. There is no guarding or rebound. Hernia: No hernia is present. Musculoskeletal: Normal range of motion. General: No tenderness. Right lower leg: Edema present. Left lower leg: Edema present. Lymphadenopathy: Cervical: No cervical adenopathy. Skin: General: Skin is warm and dry. Coloration: Skin is not pale. Findings: No erythema or rash. Neurological: Mental Status: She is alert and oriented to person, place, and time. Cranial Nerves: No cranial nerve deficit. Motor: No abnormal muscle tone. Coordination: Coordination normal. Deep Tendon Reflexes: Reflexes are normal and symmetric. Reflexes normal. Psychiatric: Behavior: Behavior normal. Thought Content: Thought content normal. Judgment: Judgment normal. Digna Downs DO documented in this encounter INTERVAL HISTORY AND PHYSICAL Patient Name: Micheline Fox Admit Date: [id number] MR #: [id number] : 1960 The H&P has been reviewed and the patient has been examined. I concur with the findings of the H&P. There are no significant changes. It is appropriate to proceed with the planned procedure. Joe Colón MD 07/29/2019 8:37 AM Micheline Fox 1960 Encounter Diagnoses Name Primary? Preop examination Yes Personal history of colonic polyps Morbid obesity (HCC) Coronary artery disease involving mechoopda coronary artery of mechoopda heart without angina pectoris Other cirrhosis of liver (HCC) KELLY (obstructive sleep apnea) Essential hypertension Hyperlipidemia, unspecified hyperlipidemia type Procedure: Colonoscopy with Anesthesia, EGD with Anesthesia Surgeon: Dr. Sharp PCP: Leticia Sylvester MD Cardiology: Dr. Dickerson Date of Procedure: 07/29/19 DATE OF SERVICE 07/28/2019 ASSESSMENT 1. Personal history of colon polyps. 2. Abdominal pain. 3. 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 4. Nonobstructive coronary artery disease noted on left heart catheterization 07/08/2019. 5. Hypertension. 6. Hyperlipidemia. 7. Chronic bilateral lower extremity edema. 8. Depression. 9. Generalized anxiety disorder. 10. Insomnia. 11. Daily benzodiazepine use. 12. Latex allergy. 13. Vitamin D deficiency. 14. Noncompliant obstructive sleep apnea. 15. Gastroesophageal reflux disease. 16. Elevated body mass index. 17. Cervical degenerative disc disease. 18. Lumbar degenerative disc disease. 19. Osteoarthritis. 20. Unspecified headaches. 21. Dizziness. 22. Overactive bladder. 23. Thrombocytopenia. 24. Splenomegaly. 25. Previous tobacco use. 26. Family history significant for diabetes, coronary artery disease, myocardial infarction, hypertension, cerebrovascular accident, chronic obstructive pulmonary disease, unspecified liver disease, liver cancer, tongue cancer, throat cancer, stomach cancer. 1. ASA =3. 2. RCRI =1 . (Score/Risk of Major Cardiac Outcomes - 0/0.4%, 1/0.9%, 2/2.4%, 3 or more/>5.4%. This may overestimate the cardiac risks in lower risk procedures and underestimate the risks in vascular procedures. This study has been externally validated.) 3. Caprini Score =5 . (Score/Risk of Symptomatic VTE = 0/<0.5%, 1-2/1.5%, 3- 4/3.0%, 5 or greater/6% or greater). 4. Apfel Score = 2. (Score/Risk of PONV = 0/10%, 1/21%, 2/39%, 3/61%, 4/79%) This score has been externally validated. Plan: 1. The patient falls into an acceptable cardiac risk for category for their planned procedure per 2014 ACC Guidelines and Recommendations. 2. Endocarditis prophylaxis is not required per 2017 ACC/AHA Guidelines and Recommendations. 3. Avoid/limit perioperative hypothermia. 4. Perioperative thromboembolic prophylaxis is recommended per 2016 ACCP Guidelines and Recommendations (or 2011 AAOS Guidelines for orthopedic procedures, or 2008 IVETTE Guidelines for neurosurgical procedures). 5. The patient s head of the bed should be elevated to 30 degrees post- operatively unless contraindicated by the procedure. 6. The patient has been advised to discontinue NSAID s and alternative medicines (Vitamins, herbals, etc.) seven days prior to surgery. Perioperative management of the patient's antiplatelet therapy is recommended per the 2016 ACC/AHA Guidelines - Focused Update on Duration of Dual Antiplatelet Therapy in Patient's With Coronary Artery Disease or in accordance with their virtual reality specialist's recommendations. 7. The patient may use appropriate amounts of acetaminophen pre-operatively for pain management if not allergic and if no history of liver disease. 8. The patient was advised to follow the current [facility] guidelines regarding fluid intake after midnight and to take any recommended medications on the morning of surgery with a sip of water. 9. Ordered laboratory tests will be reviewed pre-operatively for any pertinent abnormalities. 10. Post-operative spirometry/volurex, deep breathing maneuvers, and early ambulation is recommended if not contraindicated by the procedure. 11. This report will be made available to the requesting surgeon through the electronic medical records. 1. The patient was advised to refrain from taking their VANIA inhibitors or ARB's on the morning of surgery per [facility] Anesthesia recommendations. 1. The patient is currently on a scheduled beta-hero, which should be continued perioperatively per 2017 ACC Guidelines and Recommendations. 1. The patient's benzodiazepines should be resumed post-operatively to avoid benzodiazepine withdraw. 1. The patient was advised that KELLY/SDB is a potential risk in the perioperative period, including the potential for respiratory failure per 2014 ASA Guidelines. 2. The patient was offered the opportunity to be referred for a pre-operative KELLY/SBD evaluation in order to further risk stratify and potentially reduce this risk, understanding that this may delay their procedure. 3. The patient elects to proceed with surgery as scheduled, with the understanding that they could potentially reduce this risk. 4. The patient may warrant closer monitoring post-operatively for signs of KELLY/SDB. 5. Post-operative protocols for patients with suspected/non-compliant KELLY/SDB should be followed. 6. Post-operative capnography may be of potential benefit in this patient. 7. Cautious perioperative use of opioids and benzodiazepines is recommended in this patient. 8. The appropriate use of opioid sparing analgesia is recommended. 2. Perioperative nebulizers can be used as needed. PREOPERATIVE HISTORY AND PHYSICAL EXAMINATION HISTORY OF PRESENT ILLNESS Ms. Fox is a pleasant 59-year-old white female with multiple medical problems, who presents today for preoperative consultation and risk stratification at the request of Dr. Sharp for a planned colonoscopy and EGD with anesthesia on 07/29/2019. The patient does have a known history of minimal nonobstructive coronary artery disease. The patient did undergo a left heart catheterization on July 08, 2019. This study demonstrated evidence of nonobstructive coronary disease. The patient was noted to have a normal left main coronary artery, a 30% to 40% mid RCA lesion, a 30% to 40% mid circumflex lesion, and mild diffuse disease in the LAD. A copy of that report is available in the electronic medical records for review and verification. The patient did not require any intervention based on the study results. The patient believes her blood pressure and cholesterol have been adequately controlled on her current regimen. The patient is noted to be on a beta blocking agent at this time. The patient denies a history of diabetes, renal insufficiency, cerebrovascular disease, peripheral arterial disease, or valvular heart disease. The patient is noted to be on a benzodiazepine on a b.i.d. basis. The patient's benzodiazepine should be resumed postoperatively so as to avoid the possibility of benzodiazepine withdrawal. The patient reports she does have untreated obstructive sleep apnea. The patient was advised that untreated sleep apnea is a potential risk for surgery according to the 2014 ASA guidelines. The patient was advised she could decrease this risk by re-investigating treatment options for her sleep apnea prior to her procedure. The patient does not wish to delay her surgery for this risk reduction. The patient may warrant closer monitoring postoperatively for possible signs of sleep apnea. The patient reports she does have a history of cirrhosis secondary to fatty liver disease and hepatitis C. The patient reports she was treated for her hepatitis C in the past and believes her viral loads are currently undetectable. The patient is not aware of having esophageal varices or portal hypertension. The patient is noted to be thrombocytopenic, however. The patient does have a history of mild splenomegaly as well. The patient does not demonstrate any clinical evidence of hepatic decompensation. The patient is unaware of what her MELD score is. The patient is not clear on the stage of her liver disease, either. The patient has undergone several surgeries in the past, all of which were uneventful from a cardiac and anesthesia standpoint. The patient's functional capacity is somewhat limited at this time. The patient is able to achieve her activities of daily living but does not necessarily climb stairs or exercise. At her described functional capacity of less than 4 METs, the patient is not reporting any exertional chest pain, atypical chest pain, palpitations, syncope, near syncope, orthopnea, PND, claudication dyspnea on exertion, or shortness of breath. The patient does complain of lower extremity edema, which is somewhat noticeable on exam today. The patient does have cardiac disease in her family history. The patient denies any personal or family history significant for bleeding diathesis or thromboembolic disease. The patient reports she is a former smoker and did quit smoking about 5 years ago. The patient does not believe she has any underlying COPD or emphysema associated with her tobacco use. The patient's lung exam is clear today with a room air pulse oximeter of 93% The patient's EKG performed on 06/23/2019 demonstrates a borderline sinus tachycardia. The patient had no other acute complaints at this time. Allergies Allergen Reactions Codeine Hives Penicillin Fentanyl Itching Pt does not recall any reaction Latex Rash Micheline Fox Home Medication Instructions Prior to Surgery RIVERA:[id number] Printed on:07/28/19 1321 Medication Information Take last dose on Take the morning of surgery Comment(s) ALPRAZolam (XANAX) 1 MG tablet Take 0.5-1 mg by mouth daily 0.5 mg-1 mg Daily . cholecalciferol, vitamin D3, (VITAMIN D3 ORAL) Take 125 mcg by mouth daily . desvenlafaxine succinate (PRISTIQ) 50 MG 24 hr tablet Take 50 mg by mouth every morning . docusate sodium (COLACE) 100 MG capsule Take 100 mg by mouth 2 (two) times a day . DULoxetine (CYMBALTA) 60 MG capsule Take 60 mg by mouth every morning . eszopiclone (LUNESTA) 2 MG tablet Take 2 mg by mouth nightly . furosemide (LASIX) 20 MG tablet Take 40 mg by mouth every morning Reasons: pt takes 2 tabs daily. levomefolate calcium (DEPLIN ORAL) Take 15 mg by mouth every morning . lisinopril (PRINIVIL,ZESTRIL) 10 MG tablet Take 10 mg by mouth every morning . metoprolol succinate (TOPROL-XL) 25 MG 24 hr tablet Take 1 (one) tablet (25 mg total) by mouth 2 (two) times a day . pantoprazole (PROTONIX) 40 MG tablet Take 40 mg by mouth every morning . traZODone (DESYREL) 100 MG tablet Take 300 mg by mouth nightly . Past Medical History: Diagnosis Date Arthritis Cirrhosis (HCC) Hepatitis C History of cardiac cath 07/01/2019 Hypertension Sleep apnea, obstructive Does not use machine Past Surgical History: Procedure Laterality Date BACK SURGERY 1999 CARDIAC CATHETERIZATION GASTRIC BYPASS 1996 LEFT HEART CATH N/A 07/08/2019 Procedure: Left Heart Cath; Surgeon: Hari Acosta MD; [facility]; Service: Cardiovascular HERNIA REPAIR NECK SURGERY 1999 Social History Socioeconomic History Marital status: Spouse name: Not on file Number of children: Not on file Years of education: Not on file Highest education level: Not on file Occupational History Not on file Social Needs Financial resource strain: Not on file Food insecurity: Worry: Not on file Inability: Not on file Transportation needs: Medical: Not on file Non-medical: Not on file Tobacco Use Smoking status: Former Smoker Packs/day: 0.00 Smokeless tobacco: Never Used Tobacco comment: quit 4 years ago Substance and Sexual Activity Alcohol use: Never Frequency: Never Drug use: Not on file Sexual activity: Not on file Lifestyle Physical activity: Days per week: Not on file Minutes per session: Not on file Stress: Not on file Relationships Social connections: Talks on phone: Not on file Gets together: Not on file Attends cheondoism service: Not on file Active member of club or organization: Not on file Attends meetings of clubs or organizations: Not on file Relationship status: Not on file Other Topics Concern Not on file Social History Narrative Not on file Family History Problem Relation Age of Onset Melanoma Father Heart attack Father Heart disease Father No Known Problems Mother Heart disease Maternal Grandmother Heart disease Maternal Grandfather No Known Problems Brother No Known Problems Brother Review of Systems Constitution: Positive for weight gain. Negative for chills, decreased appetite, diaphoresis, fever, malaise/fatigue, night sweats and weight loss. HENT: Negative. Negative for congestion, ear discharge, ear pain, hearing loss, hoarse voice, nosebleeds, odynophagia, sore throat, stridor and tinnitus. Eyes: Negative for blurred vision, discharge, double vision, pain, photophobia, redness, vision loss in left eye, vision loss in right eye, visual disturbance and visual halos. Cardiovascular: Positive for chest pain and leg swelling. Negative for claudication, cyanosis, dyspnea on exertion, irregular heartbeat, near-syncope, orthopnea, palpitations, paroxysmal nocturnal dyspnea and syncope. Respiratory: Negative. Negative for cough, hemoptysis, shortness of breath, sleep disturbances due to breathing, snoring, sputum production and wheezing. Endocrine: Negative for cold intolerance, heat intolerance, polydipsia, polyphagia and polyuria. Hematologic/Lymphatic: Negative for adenopathy and bleeding problem. Does not bruise/bleed easily. Skin: Negative. Negative for color change, dry skin, flushing, itching, nail changes, poor wound healing, rash, skin cancer, suspicious lesions and unusual hair distribution. Musculoskeletal: Positive for arthritis, back pain, muscle cramps, muscle weakness, myalgias and neck pain. Negative for falls, gout, joint pain, joint swelling and stiffness. Gastrointestinal: Positive for bloating, abdominal pain, constipation, diarrhea, dysphagia and heartburn. Negative for anorexia, change in bowel habit, bowel incontinence, excessive appetite, flatus, hematemesis, hematochezia, hemorrhoids, jaundice, melena, nausea and vomiting. Genitourinary: Positive for bladder incontinence, dysuria, frequency and urgency. Negative for decreased libido, flank pain, genital sores, hematuria, hesitancy, incomplete emptying, menorrhagia, missed menses, nocturia, non-menstrual bleeding and pelvic pain. Neurological: Positive for difficulty with concentration, disturbances in coordination, dizziness and headaches. Negative for aphonia, brief paralysis, excessive daytime sleepiness, focal weakness, light-headedness, loss of balance, numbness, paresthesias, seizures, sensory change, tremors, vertigo and weakness. Psychiatric/Behavioral: Positive for depression. Negative for altered mental status, hallucinations, hypervigilance, memory loss, substance abuse, suicidal ideas and thoughts of violence. The patient has insomnia and is nervous/anxious. Allergic/Immunologic: Negative for environmental allergies, HIV exposure, hives and persistent infections. Vitals: 07/28/19 1238 BP: 135/83 Pulse: 77 Resp: 18 Temp: 98.6 F (37 C) TempSrc: Oral SpO2: 93% Weight: 132.2 kg (291 lb 7.2 oz) Height: 5' 5 Physical Exam Vitals signs and nursing note reviewed. Constitutional: General: She is not in acute distress. Appearance: She is well-developed. She is obese. She is not diaphoretic. HENT: Head: Normocephalic and atraumatic. Right Ear: External ear normal. Left Ear: External ear normal. Nose: Nose normal. Mouth/Throat: Pharynx: No oropharyngeal exudate. Eyes: General: No scleral icterus. Right eye: No discharge. Left eye: No discharge. Conjunctiva/sclera: Conjunctivae normal. Pupils: Pupils are equal, round, and reactive to light. Neck: Musculoskeletal: Normal range of motion and neck supple. Thyroid: No thyromegaly. Vascular: No JVD. Trachea: No tracheal deviation. Cardiovascular: Rate and Rhythm: Normal rate and regular rhythm. Heart sounds: Normal heart sounds. No murmur. No friction rub. No gallop. Pulmonary: Effort: Pulmonary effort is normal. No respiratory distress. Breath sounds: Normal breath sounds. No stridor. No wheezing or rales. Chest: Chest wall: No tenderness. Abdominal: General: Bowel sounds are normal. There is no distension. Palpations: Abdomen is soft. There is no mass. Tenderness: There is no tenderness. There is no guarding or rebound. Hernia: No hernia is present. Musculoskeletal: Normal range of motion. General: No tenderness. Right lower leg: Edema present. Left lower leg: Edema present. Lymphadenopathy: Cervical: No cervical adenopathy. Skin: General: Skin is warm and dry. Coloration: Skin is not pale. Findings: No erythema or rash. Neurological: Mental Status: She is alert and oriented to person, place, and time. Cranial Nerves: No cranial nerve deficit. Motor: No abnormal muscle tone. Coordination: Coordination normal. Deep Tendon Reflexes: Reflexes are normal and symmetric. Reflexes normal. Psychiatric: Behavior: Behavior normal. Thought Content: Thought content normal. Judgment: Judgment normal. Digna Downs DO documented in this encounter INTERVAL HISTORY AND PHYSICAL Patient Name: Micheline Fox Admit Date: [id number] MR #: [id number] : 1960 The H&P has been reviewed and the patient has been examined. I concur with the findings of the H&P. There are no significant changes. It is appropriate to proceed with the planned procedure. Digna Enriquez DPM 11/14/2020 10:36 AM documented in this encounter [facility] Medicine Inpatient H&P 11/28/2020 Lizbet Pack MD [facility] Patient: Micheline Fox Date of : 1960 (60 y.o.) PCP: Leticia Sylvester MD Assessment Micheline Fox 60 y.o. female with history of Hypertension, hepatitis C and cirrhosis who presented to the emergency department with right foot pain, patient underwent surgery [address] Enriquez for heel spur and plantar fasciitis, since then patient has ongoing heel pain at the site of surgery in addition to redness, Patient was evaluated by Dr. Enriquez and she was started on doxycycline and ciprofloxacin, she continued to have heel pain and eventually advised to go to the hospital Principal Problem: Foot pain Plan: Right foot pain Concern for surgical wound infection Heel spur and plantar fasciitis status post surgery There is tenderness and erythema, no pus formation, no systemic symptoms. Send blood cultures. Start the patient on clindamycin Podiatry evaluation X-ray of the foot showed soft tissue swelling no bony lesion, no fractures there was midfoot artifact located deep in the plantar aspect between proximal first and second metacarpal this could be a needle. Will wait for Podiatry evaluation, before involving surgery Hypertension Continue Metoprolol losartan and Bumex DVT prophylaxis, Lovenox SUBJECTIVE: Chief Complaint: right foot pain History of Presenting Illness: Micheline Fox is a 60 y.o. female with history of Hypertension, hepatitis C and cirrhosis who presented to the emergency department with right foot pain, patient underwent surgery [address] Enriquez for heel spur and plantar fasciitis, since then patient has ongoing heel pain at the site of surgery in addition to redness, Patient was evaluated by Dr. Enriquez and she was started on doxycycline and ciprofloxacin, she continued to have heel pain and eventually advised to go to the hospital. Review of Systems: 10 systems reviewed and negative other than noted in HPI History: Past Medical History: Diagnosis Date Arthritis Cirrhosis (HCC) Hepatitis C History of cardiac cath 07/01/2019 Hypertension PONV (postoperative nausea and vomiting) most recent Sleep apnea, obstructive Does not use machine Past Surgical History: Procedure Laterality Date BACK SURGERY 1999 CARDIAC CATHETERIZATION COLONOSCOPY N/A 07/29/2019 Procedure: COLONOSCOPY; Surgeon: Joe Colón MD; [facility]; Service: Gastroenterology EGD N/A 07/29/2019 Procedure: ESOPHAGOGASTRODUODENOSCOPY; Surgeon: Joe Colón MD; Location: [facility]; Service: Gastroenterology GASTRIC BYPASS 1996 HC LEFT HEART CATH N/A 07/08/2019 Procedure: Left Heart Cath; Surgeon: Hari Acosta MD; Location: [facility]; Service: Cardiovascular HEEL SPUR RESECTION Right 11/14/2020 Procedure: EXCISION HEEL SPUR RIGHT FOOT C-ARM; Surgeon: Digna Enriquez DPM; Location: Main OR; Service: Podiatry HERNIA REPAIR NECK SURGERY 1999 Family History Problem Relation Age of Onset Melanoma Father Heart attack Father Heart disease Father No Known Problems Mother Heart disease Maternal Grandmother Heart disease Maternal Grandfather No Known Problems Brother No Known Problems Brother Social History Tobacco Use Smoking Status Former Smoker Packs/day: 0.00 Smokeless Tobacco Never Used Tobacco Comment quit 4 years ago Social History Substance and Sexual Activity Alcohol Use Not Currently Frequency: Never Comment: quit drinking 5 plus years ago Family and Social History reviewed and non-pertinent to this visit, reviewed. Allergies: Codeine, Fentanyl, Latex, and Penicillin Home Medications: Outpatient Medications as of 11/28/2020 Medication Sig albuterol 90 mcg/actuation inhaler Inhale 2 (two) puffs every 6 (six) hours as needed for wheezing . ALPRAZolam (XANAX) 1 MG tablet Take 1 mg by mouth every morning And 0.5 mg at bedtime if needed . aspirin 325 MG tablet Take 325 mg by mouth 2 (two) times a day. brexpiprazole (Rexulti) 2 mg Tab Take 2 mg by mouth every morning . bumetanide (BUMEX) 1 MG tablet Take 1 mg by mouth daily . ciprofloxacin HCl (CIPRO) 500 MG tablet Take 500 mg by mouth every 12 (twelve) hours For 10 days starting 11/27/20 . desvenlafaxine succinate (PRISTIQ) 100 MG 24 hr tablet Take 100 mg by mouth every morning . docusate sodium (COLACE) 100 MG capsule Take 200 mg by mouth 2 (two) times a day . doxycycline hyclate (VIBRAMYCIN) 100 MG capsule Take 100 mg by mouth 2 (two) times a day For 10 days starting 11/27/20 . DULoxetine (CYMBALTA) 60 MG capsule Take 60 mg by mouth every morning . eszopiclone (LUNESTA) 2 MG tablet Take 2 mg by mouth nightly . L-Methylfolate 15 mg Tab Take 15 mg by mouth daily . losartan (COZAAR) 50 MG tablet Take 50 mg by mouth every morning . metOLazone (ZAROXOLYN) 2.5 MG tablet Take 2.5 mg by mouth once a week every Thursday . metoprolol succinate (TOPROL-XL) 25 MG 24 hr tablet Take 1 (one) tablet (25 mg total) by mouth 2 (two) times a day . oxyCODONE-acetaminophen (PERCOCET) 5-325 mg per tablet Take 1 tablet by mouth every 6 (six) hours as needed for pain . potassium chloride SA (K-DUR,KLOR-CON) 20 MEQ tablet Take 20 mEq by mouth daily . traZODone (DESYREL) 100 MG tablet Take 300 mg by mouth nightly . OBJECTIVE: Physical Examination: BP (!) 140/73 (BP Location: Left arm, Patient Position: Lying) Pulse 71 Temp 98.1 F (36.7 C) (Oral) Resp 18 LMP (LMP Unknown) SpO2 96% General Appearance: Alert, well appearing, and in no acute distress. HEENT: Head - Normocephalic, atraumatic. Eyes - PAULETTE bilaterally and EOMI. Ears - normal external appearance, hearing intact. Nose - normal, no erythema. Throat - mucous membranes moist, pharynx without lesions. Neck: Supple, trachea midline. Cardiovascular: S1, S2 normal. No murmurs, rubs, clicks or gallops appreciated. No pedal edema. Respiratory: Lungs clear to auscultation, no wheezes, rales or rhonchi heard. Abdomen: Soft, non-tender, normal bowel sounds, non-distended, no masses or organomegaly appreciated. Neurological: Grossly normal motor and sensory exam. No focal deficits. Musculoskeletal: No joint tenderness, deformity or swelling. Skin: Normal coloration and turgor. Right foot medial aspect wound with erythema and tenderness Psych: Alert, oriented x 3. Normal mood and affect. Laboratory and Additional Data Reviewed: Results/Medications Reviewed 11/28/20 6:36 PM: Results from last 7 days Lab Units 11/28/20 1705 SODIUM mmol/L 142 POTASSIUM mmol/L 3.7 CHLORIDE mmol/L 107 BUN mg/dL 16 CREATININE mg/dL 0.97 GLUCOSE mg/dL 100* CALCIUM mg/dL 8.0* Results from last 7 days Lab Units 11/28/20 1706 WBC K/mcL 5.55 HGB g/dL 13.9 HCT % 40.7 PLT K/mcL 125* Invalid input(s): LABALBU CULTURES: Reviewed 6:36 PM IMAGING: Reviewed 6:36 PM documented in this encounter INTERVAL HISTORY AND PHYSICAL Patient Name: Micheline Fox Admit Date: [id number] MR #: [id number] : 1960 The H&P has been reviewed and the patient has been examined. I concur with the findings of the H&P. There are no significant changes. It is appropriate to proceed with the planned procedure. Hari Acosta MD 07/08/2019 9:03 AM [facility] [address] (11) [facility] [address] [facility] [id number] Subjective: Micheline Fox is a 59 y.o. 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 History of left heart catheterization 4 years ago with moderate coronary artery disease, medical therapy recommended. History of hepatitis C, cirrhosis, was successfully treated for the hepatitis C, according the patient. Has a history of chronically low platelets, last 126,000 range 3 months ago. Renal function intact. Recently, she has had increased shortness of breath, sleeping in a recliner, also had some right arm discomfort. Chest discomfort seems to come and go on its own, not related to exertion. EKG shows sinus rhythm with sinus tachycardia, nonspecific ST changes. There is mild edema of lower extremities. Patient is obese. Abdomen is protuberant. No obvious ascites. No jaundice noted. IMPRESSION 1. History of known coronary artery disease. Had heart catheterization 2014 with medical therapy. Quit smoking at that time. History of cirrhosis of the liver with hepatitis C treated previously. 2. Shortness of breath. 3. Chest discomfort. 4. Mildly decreased platelet count, 126,000. Overview of Problems Addressed: No problems updated. Assessment & Plan: PLAN Concerned she has fluid retention either secondary to heart or perhaps liver. Will check proBNP, blood work, chest x-ray. Start spironolactone 25 mg 1 daily in addition to her Lasix and also started low-dose of beta hero, metoprolol-XL, half of a 25-mg pill daily. Review blood work to look for response to the medications before pursuing other cardiac testing, such as nuclear stress test or going directly to left heart catheterization. If prolonged chest pains she was informed to go to the emergency room. Review CBC and platelet status. Denies any bleeding problems. Currently not taking aspirin. Left heart catheterization, April 2015, showed normal left ventricular systolic function, single-vessel coronary artery disease with moderate mid posterior circulation involvement, fractional flow reserve 0.83, not physiologically significant, medical therapy. Left anterior descending had a 30% obstruction. LV function was intact. Medical therapy. No problem-specific Assessment & Plan notes found for this encounter. Histories: Past Medical History: Diagnosis Date Cirrhosis (HCC) Hepatitis C Hypertension Past Surgical History: Procedure Laterality Date BACK SURGERY 1999 CARDIAC CATHETERIZATION GASTRIC BYPASS 1997 NECK SURGERY 1999 Family History Problem Relation Age of Onset Melanoma Father Heart attack Father Heart disease Father Heart disease Maternal Grandmother Heart disease Maternal Grandfather Social History Tobacco Use Smoking status: Former Smoker Packs/day: 0.00 Smokeless tobacco: Never Used Tobacco comment: quit 4 years ago Substance Use Topics Alcohol use: Never Frequency: Never Drug use: Not on file Patient's Medications New Prescriptions METOPROLOL SUCCINATE (TOPROL-XL) 25 MG 24 HR TABLET Take 0.5 (one-half) tablet (12.5 mg total) by mouth daily . SPIRONOLACTONE (ALDACTONE) 25 MG TABLET Take 1 (one) tablet (25 mg total) by mouth daily . Previous Medications CHOLECALCIFEROL, VITAMIN D3, (VITAMIN D3 ORAL) Take 125 mcg by mouth daily . DESVENLAFAXINE SUCCINATE (PRISTIQ) 50 MG 24 HR TABLET Take 50 mg by mouth daily . DOCUSATE SODIUM (COLACE) 100 MG CAPSULE Take 100 mg by mouth 2 (two) times a day . DULOXETINE (CYMBALTA) 60 MG CAPSULE Take 60 mg by mouth daily . ESZOPICLONE (LUNESTA) 2 MG TABLET Take 2 mg by mouth nightly . FUROSEMIDE (LASIX) 20 MG TABLET Take 20 mg by mouth Reasons: pt takes 2 tabs daily. LEVOMEFOLATE CALCIUM (DEPLIN ORAL) Take 15 mg by mouth daily . LISINOPRIL (PRINIVIL,ZESTRIL) 10 MG TABLET Take 10 mg by mouth. TRAZODONE (DESYREL) 100 MG TABLET Take 200 mg by mouth. Modified Medications No medications on file Discontinued Medications AMLODIPINE (NORVASC) 2.5 MG TABLET Take 2.5 mg by mouth. ASPIRIN 81 MG CHEWABLE TABLET Chew and Swallow 81 mg. BUPROPION (WELLBUTRIN XL) 150 MG 24 HR TABLET BUPROPION (WELLBUTRIN XL) 300 MG 24 HR TABLET FLUOXETINE (PROZAC) 40 MG CAPSULE Take 60 mg by mouth. Allergies Allergen Reactions Fentanyl Itching Codeine Penicillin Latex Rash Review of Systems Constitution: Negative for diaphoresis, malaise/fatigue, weight gain and weight loss. HENT: Negative for hearing loss, nosebleeds and tinnitus. Eyes: Negative for blurred vision and visual disturbance. Cardiovascular: Positive for chest pain and dyspnea on exertion. Negative for claudication, cyanosis, irregular heartbeat, leg swelling, near-syncope, orthopnea, palpitations, paroxysmal nocturnal dyspnea and syncope. Respiratory: Negative for hemoptysis, shortness of breath and snoring. Endocrine: Negative for cold intolerance and heat intolerance. Hematologic/Lymphatic: Does not bruise/bleed easily. Skin: Negative for flushing, poor wound healing and rash. Musculoskeletal: Negative for back pain, muscle weakness and myalgias. Gastrointestinal: Negative for abdominal pain, change in bowel habit, melena, nausea and vomiting. Genitourinary: Negative for decreased libido and hematuria. Neurological: Negative for loss of balance and numbness. Psychiatric/Behavioral: Negative for memory loss. The patient is not nervous/anxious. Objective: Physical Exam Constitutional: She is oriented to person, place, and time. She appears well-developed and well-nourished. Obese HENT: Head: Normocephalic. Mouth/Throat: Oropharynx is clear and moist. Eyes: Conjunctivae and lids are normal. Neck: No JVD present. Carotid bruit is not present. Cardiovascular: Normal rate, regular rhythm, normal heart sounds and normal pulses. Pulmonary/Chest: Effort normal and breath sounds normal. Abdominal: Soft. Bowel sounds are normal. She exhibits no mass. There is no hepatosplenomegaly. There is no tenderness. Abdomen obese. Soft no clear-cut ascites. Neck veins not elevated. Lungs are clear Musculoskeletal: Normal range of motion. General: Edema present. Comments: 1+ pedal edema bilaterally nonpitting. There is no height or weight on file to calculate BMI. Neurological: She is alert and oriented to person, place, and time. Gait normal. Skin: Skin is warm and intact. No rash noted. Psychiatric: She has a normal mood and affect. Her behavior is normal. Vitals reviewed. Vitals: Vitals: 06/23/19 1421 BP: 108/79 BP Location: Left arm Patient Position: Sitting BP Cuff Size: Adult Pulse: 96 SpO2: 91% Weight: 133.4 kg (294 lb) There is no height or weight on file to calculate BMI. Orders Placed This Encounter Procedures XR Chest AP/PA and LAT Standing Status: Future Number of Occurrences: 1 Standing Expiration Date: 06/22/2020 Scheduling Instructions: OK to schedule at [facility] and all ambulatory sites Fax script to: [facility]- [phone] [facility]-[phone] [facility]-[phone] [facility] - [phone] Order Specific Question: Reason for Exam: Answer: [email or web address] Order Specific Question: Is the patient ? Answer: No Comprehensive metabolic panel Standing Status: Future Number of Occurrences: 1 Standing Expiration Date: 06/23/2020 CBC and differential Standing Status: Future Number of Occurrences: 1 Standing Expiration Date: 06/23/2020 NT PRO BNP Standing Status: Future Number of Occurrences: 1 Standing Expiration Date: 06/23/2020 TSH with Reflex Free T4 Standing Status: Future Number of Occurrences: 1 Standing Expiration Date: 06/23/2020 ECG 12 Lead Follow Up Ordered: Return in about 6 weeks (around 08/04/2019). Giorgi Thomas MD documented in this encounter Pre-Procedure Instructions - Fabi Billingsley MA - 07/28/2019 12:34 PM ESTBrief Op Note - Digna Enriquez DPM - 11/14/2020 11:36 AM ESTQuick Note - Giuliana Winslow RN - 11/12/2020 1:29 PM EST Miscellaneous Notes (unrecog nized section and content) Patient Instructions for [facility]: Prior to surgery: Please contact your Surgeon's office for the scheduled time of your surgery. Report to the Surgery Family Waiting Area in the green area of [facility] 1 1/2-2 hours prior to your surgery. You may use the Painting Machine Operator parking available at the Main Entrance/Blue Area of [facility] - a voucher for parking will be provided to you. One family member may accompany you back into the Pre-Op Area. Do not eat or drink anything after midnight or as directed, including gum, mints, and cough drops. No smoking after midnight. No alcohol 24 hours prior to your surgery. Please take any medications you have been instructed to take the morning of your surgery with small sips of water. Please be sure to wear comfortable, appropriate clothing. Please remove all jewelry and piercing's, including wedding rings. Leave all valuable items at home. Shower using anti-bacterial soap or as advised by your Surgeon's office Do not apply any makeup or lotions. Remove all nail emirati for surgeries involving extremities. Please remember to bring both your insurance card and a photo ID with you on the day of surgery. After your surgery: If you are having outpatient surgery - you must have a licensed fuel truck driver to take you home. The expectation is that this fuel truck driver will remain at the hospital for the duration of your procedure. You are advised to have a family member with you for at least 24 hours after being under Anesthesia. documented in this encounter Brief Post Operative Note Patient Name: Micheline Fox : 1960 (60 y.o.) Date of Service: 11/14/2020 CSN: [id number] Procedure(s): EXCISION HEEL SPUR RIGHT FOOT C-ARM Pre-Operative Diagnoses: * 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 Post-Operative Diagnoses:same Surgeon(s) and Role: * Digna Enriquez DPM - Primary Anesthesiologist: Aris Morales MD ACQUISITIONS LIBRARIAN: Judie Angeles CRNA Firewall Administrator: Cindy Infante RN Teaching Fellow: Dalton Ceja, TECHNOLOGIST Scrub Person: Alesha Garcia RN Operative findings: inferior calcaneal heel spur right foot post-operative complications: none Type pe of anesthesia used: General Estimated blood loss: 0 mL Estimated urine output: Refer to surgical log Specimen(s): * No specimens in log * Implant(s): * No implants in log * Drain(s): * No LDAs found * Wound(s): Wound 11/14/20 Surgical Wound Foot Right (Active) Digna Enriquez DPM 11/14/2020 11:36 AM Preop diagnosis: Plantar fasciitis with heel spur syndrome right foot Postoperative diagnosis: Same Procedure: Plantar fasciotomy with heel spur resection right foot. Indications: Patient is a 60-year-old female seen at the office who has had a painful right heel spur. Patient's undergone extensive conservative management which is failed to provide her with relief. Patient was explained risks and complications of all the surgery and desires surgical correction of the above-mentioned form at this time.. Consent was signed preoperatively. Procedure in detail: Patient was brought into the [facility] operating room placed on the table in the supine position following this monitored anesthesia was given. Patient received an ankle block injection was consisted of 10 cc of a 50-50 mixture 2% lidocaine plain and 0.5% Marcaine plain. A well-padded ankle Tourniquet was placed about the patient's right ankle. Next the right foot and leg were prepped and draped in the usual aseptic fashion. Following gravity exsanguination the ankle tourniquet was inflated 250 mmHg.. Attention was then directed to the medial aspect of the right heel where a 4 cm linear incision was made. I had to add an additional 7 cc of 2% lidocaine plain and the patient was converted to general anesthesia to make her comfortable. Next incision was carefully deepened by blunt and sharp dissection with care to retract all neurovascular structures and Bovie all bleeders to the medial band of the plantar fascial ligament. Next I took a [place] elevator and identified the superior and inferior margins of the plantar fascial ligament as they originate off the calcaneal tuberosity. Next I took a crown and collar scissor and released the medial two thirds of the plantar fascial ligament off the calcaneal tubercle. A inferior calcaneal heel spur was identified and removed with a combination of a rongeur and a power rasp. The wound was then flushed with copious muscle normal sterile saline and suction. Intraoperative C-arm picture was taken to confirm the spur was removed. Next the subcutaneous tissue was reapproximated 4-0 Vicryl and the skin with 3-0 nylon. Postoperative injection was given consistent 1 cc of Kenalog. I next applied Betadine soaked Adaptic 4 x 4's and a Kerlix roll. The ankle tourniquet on the right was released at 25 minutes and conservatory status was noted to return to all digits on the right foot. Patient tolerated the above procedure and anesthesia well and was transported to recovery room with vital signs stable and vascular status intact to the right foot. In the recovery room patient started to rest ice and elevate. Patient was fitted with her cam walker boot and told she can be partial weightbearing with her walker or knee scooter. Patient was given prescription for Percocet for pain and told to take aspirin 325 mg twice a day. Patient is told to follow-up my private practice on Thursday or next Thursday.. Yesenia notified of need for informed consent documented in this encounter Pt received prn pain med at 610pm; states she is ready to leave and her ride is waiting Pt c/o pain and states she does not want to discharge until she can have her next prn dose of pain medication; states that she will not have a way to fill her Rx once she leaves; next dose of pain med available at 622 pm Problem: Actual or potential alteration in health Goal: Absence of healthcare acquired conditions Outcome: Partially Met Goal: Knowledge of Interdisciplinary Plan of Care Outcome: Partially Met Goal: Knowledge of Enviroment Outcome: Partially Met Problem: Pain Goal: Manage acute pain Outcome: Partially Met Goal: Manage chronic pain Outcome: Partially Met Goal: Reduced pain sensation Outcome: Partially Met Goal: Achievement of comfort function goal Outcome: Partially Met Problem: Pressure Ulcer - Risk of Goal: Absence of pressure ulcer Outcome: Partially Met Problem: Falls, Risk of Goal: Absence of falls Outcome: Partially Met Problem: Actual or potential alteration in health Goal: Absence of healthcare acquired conditions Outcome: Partially Met Goal: Knowledge of Interdisciplinary Plan of Care Outcome: Partially Met Goal: Knowledge of Enviroment Outcome: Partially Met Problem: Pain Goal: Manage acute pain Outcome: Partially Met Goal: Manage chronic pain Outcome: Partially Met Goal: Reduced pain sensation Outcome: Partially Met Goal: Achievement of comfort function goal Outcome: Partially Met Problem: Pressure Ulcer - Risk of Goal: Absence of pressure ulcer Outcome: Partially Met Noted BMI of 53. Weight: 323 pounds Height: 5'5'' Clinical Indicators: Sleep apnea obstructive, back surgery, Gastric bypass, Hernia surgery Please provide an associated diagnosis related to the abnormal BMI. For Example: Morbid obesity Obesity BMI is not significant Other (please specify) Unable to determine Thank you, ANDREWS MoserN, RN Clinical Foreman/Project Manager After business hours you may contact Karuna Castro at [phone] (Weekdays until 10 PM and weekends 8 AM -10 PM) Care plan initiated documented in this encounter Merrick Torres RN - 07/29/2019 11:55 AM Nir Zhao RN - 07/29/2019 9:24 AM Judie Grant RN - 07/29/2019 8:47 AM Ingrid Leslie RN - 11/14/2020 3:36 PM EST Nursing Notes (unrecognized section and content) Verbal and Written instructions give to patient and family/escort. Both verbalized understanding of instructions. Discharged, Alert and oriented, ambulatory. Escorted out of Endoscopy by RN per wheelchair. All sedation and monitoring by Anesthesia. Alesha-daughter In WR Ok to speak post procedure documented in this encounter Report to Elsie Redd RN Up to chair at cartside after applied cam boot per order and patient up with walker and partial WB as ordered. Patient tolerated well RT cartside Discharge instructions reviewed with patient and with mother. AVS provided, ice pack provided, prescription given. All questions answered to patient and mother satisfaction. Cam boot here and will apply prior to patient home going per order. Awaiting PICC team for assist with IV access. Dr. Morales here and aware. Attempted IV x2 without success. Called Dr. Morales for assist after patient reports she usually has her IVs started by US. PICC team called for assist per Dr. Morales request. documented in this encounter Carlnie García RN - 11/01/2019 4:46 PM Vaishnavi Choudhury RN - 11/28/2020 8:05 PM Kourtney Mendoza RN - 11/28/2020 6:55 PM Adam Cullen MD - 11/28/2020 5:17 PM EST ED Notes (unrecognized secti on and content) Pt. Informed that she cannot drive herself home. She needs a fuel truck driver to take her home d/t the medications that she had gotten. documented in this encounter This RN bedside to assist Ramakrishna URENA to take pt to the floor. Pt states she is in pain but does not want Tylenol at this time. States had tylenol earlier but it did not help. Pt states she doesn't know why she has not been moved to a room yet, this RN explains that the room was being cleaned and it is ready at this time. Pt to floor at this time. PROVIDED PT WITH WATER AND CHAPSTICK PER REQUEST. PT REPORTED SHE NEEDED TO URINATE, THIS NURSE OFFERED TO PLACE HER ON A BED TRIANA. PT STATED SHE WOULD WAIT UNTIL SHE GOES UPSTAIRS. [facility] ED Attending Note: NAME: Micheline Fox 60 y.o. CSN: [id number] PCP: Leticia Sylvester MD History: Chief Complaint: Foot Pain HPI: The history was obtained from the patient. Micheline is a 60 y.o. female who presents with a chief complaint of Foot Pain. Patient complains of pain and increased redness to the wound of her right foot. She tells me she recently had surgery with Dr. Digna Enriquez for a heel spur and plantar fasciitis. She saw him yesterday he put her on doxycycline and Cipro. She is out of Percocet and says the pain is intense and shoots up her leg. She states green pus expressed from the wound yesterday. PMHx: Past Medical History: Diagnosis Date Arthritis Cirrhosis (HCC) Hepatitis C History of cardiac cath 07/01/2019 Hypertension PONV (postoperative nausea and vomiting) most recent Sleep apnea, obstructive Does not use machine PMSx: Past Surgical History: Procedure Laterality Date BACK SURGERY 1999 CARDIAC CATHETERIZATION COLONOSCOPY N/A 07/29/2019 Procedure: COLONOSCOPY; Surgeon: Joe Colón MD; Location: [facility]; Service: Gastroenterology EGD N/A 07/29/2019 Procedure: ESOPHAGOGASTRODUODENOSCOPY; Surgeon: Joe Colón MD; Location: [facility]; Service: Gastroenterology GASTRIC BYPASS 1996 HC LEFT HEART CATH N/A 07/08/2019 Procedure: Left Heart Cath; Surgeon: Hari Acosta MD; [facility]: [facility]; Service: Cardiovascular HEEL SPUR RESECTION Right 11/14/2020 Procedure: EXCISION HEEL SPUR RIGHT FOOT C-ARM; Surgeon: Digna Enriquez DPM; Location: Main OR; Service: Podiatry HERNIA REPAIR NECK SURGERY 1999 FAM. Hx: Family History Problem Relation Age of Onset Melanoma Father Heart attack Father Heart disease Father No Known Problems Mother Heart disease Maternal Grandmother Heart disease Maternal Grandfather No Known Problems Brother No Known Problems Brother SOC. Hx: Social History Socioeconomic History Marital status: Spouse name: Not on file Number of children: Not on file Years of education: Not on file Highest education level: Not on file Occupational History Not on file Social Needs Financial resource strain: Not on file Food insecurity Worry: Not on file Inability: Not on file Transportation needs Medical: Not on file Non-medical: Not on file Tobacco Use Smoking status: Former Smoker Packs/day: 0.00 Smokeless tobacco: Never Used Tobacco comment: quit 4 years ago Substance and Sexual Activity Alcohol use: Not Currently Frequency: Never Comment: quit drinking 5 plus years ago Drug use: Never Sexual activity: Not on file Lifestyle Physical activity Days per week: Not on file Minutes per session: Not on file Stress: Not on file Relationships Social connections Talks on phone: Not on file Gets together: Not on file Attends cheondoism service: Not on file Active member of club or organization: Not on file Attends meetings of clubs or organizations: Not on file Relationship status: Not on file Other Topics Concern Not on file Social History Narrative Not on file MEDs: Previous Medications Medication Sig albuterol 90 mcg/actuation inhaler Inhale 2 (two) puffs every 6 (six) hours as needed for wheezing . (Patient taking differently: Inhale 2 puffs every 6 (six) hours as needed for wheezing .) ALPRAZolam (XANAX) 1 MG tablet Take 0.5-1 mg by mouth daily 0.5 mg-2 mg Daily . aspirin 325 MG tablet Take 325 mg by mouth 2 (two) times a day. brexpiprazole (Rexulti) 2 mg Tab Take 2 mg by mouth daily 1 tab a.m . bumetanide (BUMEX) 1 MG tablet Take 1 mg by mouth daily . desvenlafaxine succinate (PRISTIQ) 50 MG 24 hr tablet Take 50 mg by mouth every morning . docusate sodium (COLACE) 100 MG capsule Take 100 mg by mouth 2 (two) times a day . DULoxetine (CYMBALTA) 60 MG capsule Take 60 mg by mouth every morning . eszopiclone (LUNESTA) 2 MG tablet Take 2 mg by mouth nightly . losartan potassium (LOSARTAN ORAL) Take 50 mg by mouth daily In the a.m . metOLazone (ZAROXOLYN) 2.5 MG tablet Take 2.5 mg by mouth Only on Thursday . metoprolol succinate (TOPROL-XL) 25 MG 24 hr tablet Take 1 (one) tablet (25 mg total) by mouth 2 (two) times a day . traZODone (DESYREL) 100 MG tablet Take 300 mg by mouth nightly . ALL: Allergies Allergen Reactions Codeine Hives Penicillin Fentanyl Itching Pt does not recall any reaction Latex Rash ROS: Positives and pertinent negatives as per HPI. All other systems were reviewed and are negative. Physical Exam: Patient Vitals for the past 24 hrs: BP Temp Temp src Pulse Resp SpO2 11/28/20 1656 (!) 140/73 98.1 F (36.7 C) Oral 71 18 96 % Physical Exam Constitutional: Appearance: She is well-developed. HENT: Head: Normocephalic and atraumatic. Nose: Nose normal. Eyes: General: No scleral icterus. Conjunctiva/sclera: Conjunctivae normal. Cardiovascular: Rate and Rhythm: Regular rhythm. Heart sounds: No murmur. Pulmonary: Effort: Pulmonary effort is normal. No respiratory distress. Musculoskeletal: Comments: No obvious long bone fractures; wound of foot has erythema consistent with inflammatory change there is no bleeding pus or odor. Skin: General: Skin is warm. Findings: No rash. Neurological: Mental Status: She is alert and oriented to person, place, and time. Psychiatric: Behavior: Behavior normal. Laboratory & Radiological Imaging (if done): Labs Reviewed BLOOD CULTURE AEROBIC/ANAEROBIC BLOOD CULTURE AEROBIC/ANAEROBIC BASIC METABOLIC PANEL CBC AND DIFFERENTIAL Narrative: The following orders were created for panel order CBC w/ Diff. Procedure Abnormality Status --------- ------ CBC Auto Differential[[id number]] In process Please view results for these tests on the individual orders. LACTIC ACID, PLASMA CBC WITH AUTO DIFFERENTIAL XR Foot Right 3+ Views (Standard) (Results Pending) Patient struggling with outpatient therapy will admit for IV antibiotic and pain control and Dr. Enriquez will see in the morning. Clinical Impression: 1. Acute post-operative pain 2. Intractable pain Disposition: Patient is being hospitalize to med/surg (regular floor) YOANA RUSS MD [facility] Emergency Department (Please note that portions of this note have been completed with a voice recognition software. Efforts were made to correct any errors, but occasionally words are mis-transcribed.) Adam Russ MD 11/28/20 1719 PATIENT HAD FOOT SURGERY TWO WEEKS AGO WHERE SHE HAD A BONE SPUR REMOVED AND PLANTAR FASCITIS RELEASE. SHE STATES SHE HAS DEVELOPED AN INFECTION IN HER FOOT WHICH DR ENRIQUEZ IS AWARE OF. PATIENT ARRIVES TO ER FOR UNCONTROLLED PAIN. SHE REPORTS DR ENRIQUEZ REFUSING TO GIVE HER MORE PAIN MEDICATION WHEN SHE CALLED IN. Bed: 34 Expected date: Expected time: Means of arrival: Comments: OMID documented in this encounter Visit Details Home Health Visit - Care Dick n (unrecognized section and content) Visit Type -PROP MAKING SUPERVISOR Missed Visit Discipline -Home Health Aide Problems Problem Start Date Status Goals Interventions HH Aide Disciplines: Home Health Aide 11/23/2020 Active 1 goal linked to scheduled/documented intervention 6 goal interventions scheduled/documented in this visit Goals Goal Associated Problem Outcome Goal Met? Visit Notes Hygiene/Safety HH Aide No Interventions Intervention Associated Problem/Goal Status Variance Visit Notes Apply Lotion Problem:HH Aide Goal:Hygiene/Safety Scheduled Dressing Problem:HH Aide Goal:Hygiene/Safety Scheduled Hair Care Problem:HH Aide Goal:Hygiene/Safety Scheduled Shampoo Hair Problem:HH Aide Goal:Hygiene/Safety Scheduled Sponge Bath Problem:HH Aide Goal:Hygiene/Safety Scheduled Tub Bath Problem:HH Aide Goal:Hygiene/Safety Scheduled Visit Details Visit Type -GLASS CALIBRATOR HH Missed Vi sit Discipline -Mcfp Problems Problem Start Date Status Goals Interventions Assess and Instruct Home Visit Disciplines: Mcfp 11/16/2020 Active 1 goal linked to scheduled/documented intervention 4 goal interventions scheduled/documented in this visit Medication Management Disciplines: Mcfp 11/16/2020 Active 1 goal linked to scheduled/documented intervention 1 goal intervention scheduled/documented in this visit Pain Management Disciplines: Mcfp 11/16/2020 Active 1 goal linked to scheduled/documented intervention 1 goal intervention scheduled/documented in this visit Wound Care and/or Skin Problems Disciplines: Mcfp 11/16/2020 Active - 1 problem intervention scheduled/documented in this visit Goals Goal Associated Problem Outcome Goal Met? Visit Notes Home Care Plan Assess and Instruct Home Visit No Medications Medication Management No Pain Pain Management No Interventions Intervention Associated Problem/Goal Status Variance Visit Notes Discharge Planning Problem:Assess and Instruct Home Visit Goal:Home Care Plan Scheduled Falls Problem:Assess and Instruct Home Visit Goal:Home Care Plan Scheduled Plan for Next Visit Problem:Assess and Instruct Home Visit Goal:Home Care Plan Scheduled Safety Problem:Assess and Instruct Home Visit Goal:Home Care Plan Scheduled Instruct Medication Management Problem:Medication Management Goal:Medications Scheduled Assess Pain Characteristics and Current Pain Regimen and Instruct Methods of Pain Relief Problem:Pain Management Goal:Pain Scheduled Wound care Problem:Wound Care and/or Skin Problems Scheduled Visit Details Visit Type -PT Non-OASIS/Dis cipl Discharge Discipline -Physical Therapy Problems Problem Start Date Status Goals Interventions Assess and Instruct Home Visit Disciplines: Physical Therapy 11/17/2020 Active 2 goals linked to scheduled/documented interventions 4 goal interventions scheduled/documented in this visit Goals Goal Associated Problem Outcome Goal Met? Visit Notes Home Care Plan Assess and Instruct Home Visit No Medications Assess and Instruct Home Visit No Interventions Intervention Associated Problem/Goal Status Variance Visit Notes Falls Problem:Assess and Instruct Home Visit Goal:Home Care Plan Scheduled Plan for Next Visit Problem:Assess and Instruct Home Visit Goal:Home Care Plan Scheduled Safety Problem:Assess and Instruct Home Visit Goal:Home Care Plan Scheduled Instruct Medication Management Problem:Assess and Instruct Home Visit Goal:Medications Scheduled Visit Details Visit Type -PROP MAKING SUPERVISOR Home Visi t Discipline -Home Health Aide Interventions Intervention Associated Problem/Goal Status Variance Visit Notes Apply Lotion Problem: Aide Goal:Hygiene/Safety Completed Dressing Problem: Aide Goal:Hygiene/Safety Completed Hair Care Problem: Aide Goal:Hygiene/Safety Completed Shampoo Hair Problem: Aide Goal:Hygiene/Safety Completed Sponge Bath Problem:HH Aide Goal:Hygiene/Safety Completed Tub Bath Problem:HH Aide Goal:Hygiene/Safety Scheduled Visit Details Visit Type -PT Missed Visit Discipline -Physical Therapy Visit Details Visit Type -OT Initial Evalu ation Discipline -Occupational Therapy Problems Problem Start Date Status Goals Interventions IADL/ADL Training Disciplines: Occupational Therapy 11/16/2020 Active 1 goal linked to scheduled/documented intervention 1 goal intervention scheduled/documented in this visit Goals Goal Associated Problem Outcome Goal Met? Visit Notes IADL/ADL IADL/ADL Training No Interventions Intervention Associated Problem/Goal Status Variance Visit Notes Activities of Daily Living (IADL/ADL) Training Problem:IADL/ADL Training Goal:IADL/ADL Completed Patient demonstrates standing ability for pericare wash in front, OTR did backside. Pt instructed in start of rollator hop/stepping in order to assess hopping ability, pt states it is very hard. Crutch education not initiated. Clinician taught: pt Clinician instructed on: see above Patient/caregiver is able to teach back 80% of instruction, but will not be trying to hop while alone. Order for FWW is asked of Dr. Enriquez, but unkown if he will approve. Visit Details Visit Type -SN HH OASIS Star t of Care Discipline -Mcfp Problems Problem Start Date Status Goals Interventions Assess and Instruct Home Visit Disciplines: Mcfp 11/16/2020 Active 1 goal linked to scheduled/documented intervention 4 goal interventions scheduled/documented in this visit Genitourinary Disciplines: Mcfp 11/16/2020 Active 1 goal linked to scheduled/documented intervention 1 goal intervention scheduled/documented in this visit Medication Management Disciplines: Mcfp 11/16/2020 Active 1 goal linked to scheduled/documented intervention 1 goal intervention scheduled/documented in this visit Pain Management Disciplines: Mcfp 11/16/2020 Active 1 goal linked to scheduled/documented intervention 1 goal intervention scheduled/documented in this visit Wound Care and/or Skin Problems Disciplines: Mcfp 11/16/2020 Active - 1 problem intervention scheduled/documented in this visit Goals Goal Associated Problem Outcome Goal Met? Visit Notes Home Care Plan Assess and Instruct Home Visit No Genitourinary Genitourinary No Medications Medication Management No Pain Pain Management No Interventions Intervention Associated Problem/Goal Status Variance Visit Notes Discharge Planning Problem:Assess and Instruct Home Visit Goal:Home Care Plan Completed Falls Problem:Assess and Instruct Home Visit Goal:Home Care Plan Completed Plan for Next Visit Problem:Assess and Instruct Home Visit Goal:Home Care Plan Completed Safety Problem:Assess and Instruct Home Visit Goal:Home Care Plan Completed Instruct Urinary Incontinence Problem:Genitourinary Goal:Genitourinary Completed Instruct Medication Management Problem:Medication Management Goal:Medications Completed Assess Pain Characteristics and Current Pain Regimen and Instruct Methods of Pain Relief Problem:Pain Management Goal:Pain Completed Wound/Incision Problem:Wound Care and/or Skin Problems Completed Visit Details Visit Type -OT Routine Visit Discipline -Occupational Therapy Problems Problem Start Date Status Goals Interventions IADL/ADL Training Disciplines: Occupational Therapy 11/16/2020 Active 1 goal linked to scheduled/documented intervention 1 goal intervention scheduled/documented in this visit Goals Goal Associated Problem Outcome Goal Met? Visit Notes IADL/ADL IADL/ADL Training No Interventions Intervention Associated Problem/Goal Status Variance Visit Notes Activities of Daily Living (IADL/ADL) Training Problem:IADL/ADL Training Goal:IADL/ADL Completed Clinician taught: pt Clinician instructed on: step negotiation with rollator and crutches Patient able to demonstrate correct procedure, although TTWB was certainly not maintained. Visit Details Visit Type -MEDICAL TRANSPORT SPECIALIST Routine Visi t Discipline -Physical Therapy Problems Problem Start Date Status Goals Interventions Assess and Instruct Home Visit Disciplines: Physical Therapy 11/17/2020 Active 3 goals linked to scheduled/documented interventions 5 goal interventions scheduled/documented in this visit Mobility Disciplines: Physical Therapy 11/17/2020 Active 1 goal linked to scheduled/documented intervention 1 goal intervention scheduled/documented in this visit Goals Goal Associated Problem Outcome Goal Met? Visit Notes Home Care Plan Assess and Instruct Home Visit No Medications Assess and Instruct Home Visit No Pain Assess and Instruct Home Visit No Mobility Mobility No Interventions Intervention Associated Problem/Goal Status Variance Visit Notes Falls Problem:Assess and Instruct Home Visit Goal:Home Care Plan Completed MEDICAL TRANSPORT SPECIALIST reviews fall prevention techniques with patient to continue work towards goals until next visit, patient verblizes good understanding. Plan for Next Visit Problem:Assess and Instruct Home Visit Goal:Home Care Plan Completed Plan to continue ther ex and gait training for improved safety awareness to decrease risk of falls. Safety Problem:Assess and Instruct Home Visit Goal:Home Care Plan Completed Patient demonstrates good safety awareness with AD during standing and mobility tasks this date. Instruct Medication Management Problem:Assess and Instruct Home Visit Goal:Medications Completed Patient demonstrates good understanding of medication management and side effects this date. Pain Management Problem:Assess and Instruct Home Visit Goal:Pain Completed MEDICAL TRANSPORT SPECIALIST reviews pain management techniques with patient to continue work towards goals until next visit, patient verblizes good understanding. Instruct Mobility Problem:Mobility Goal:Mobility Completed Patient completes gait training 2x2min with B crutches CGA with AFO donned to improve safety awareness during daily ambulation and to improve safe home exit and entry. Patient demonstrates slow, inconsistent sequencing reporting decreased confidence with task. Patient requires mod VC for improved breathing technique to improve oxygen intake with fair+ return, patient reports after task feeling out of breath and that the crutches feel like extra pressure on her ribs that causes extra discomfort and difficulty with breathing. MEDICAL TRANSPORT SPECIALIST suggests utilizing 4ww this date to improve ease and safety with daily mobility in home, patient verbalizes understanding. Visit Details Visit Type -MEDICAL TRANSPORT SPECIALIST Missed Visit Discipline -Physical Therapy Visit Details Visit Type -BURROWS Routine Vis it Discipline -Occupational Therapy Problems Problem Start Date Status Goals Interventions Assess and Instruct Home Visit Disciplines: Occupational Therapy 11/16/2020 Active 1 goal linked to scheduled/documented intervention 1 goal intervention scheduled/documented in this visit Goals Goal Associated Problem Outcome Goal Met? Visit Notes Home Care Plan Assess and Instruct Home Visit No Interventions Intervention Associated Problem/Goal Status Variance Visit Notes Plan for Next Visit Problem:Assess and Instruct Home Visit Goal:Home Care Plan Completed Follow up education for next visit: WB precautions/safe trnasfer techniques Skilled intervention at next visit: HEP Visit Details Visit Type -SN Missed Visit Discipline -Mcfp Interventions Intervention Associated Problem/Goal Status Variance Visit Notes Discharge Planning Problem:Assess and Instruct Home Visit Goal:Home Care Plan Scheduled Falls Problem:Assess and Instruct Home Visit Goal:Home Care Plan Scheduled Plan for Next Visit Problem:Assess and Instruct Home Visit Goal:Home Care Plan Scheduled Safety Problem:Assess and Instruct Home Visit Goal:Home Care Plan Scheduled Instruct Medication Management Problem:Medication Management Goal:Medications Scheduled Assess Pain Characteristics and Current Pain Regimen and Instruct Methods of Pain Relief Problem:Pain Management Goal:Pain Scheduled Wound/Incision Problem:Wound Care and/or Skin Problems Scheduled Problems Problem Start Date Status Goals Interventions Assess and Instruct Home Visit Disciplines: Occupational Therapy 11/16/2020 Active 1 goal linked to scheduled/documented intervention 1 goal intervention scheduled/documented in this visit IADL/ADL Training Disciplines: Occupational Therapy 11/16/2020 Active 1 goal linked to scheduled/documented intervention 1 goal intervention scheduled/documented in this visit Goals Goal Associated Problem Outcome Goal Met? Visit Notes Home Care Plan Assess and Instruct Home Visit No IADL/ADL IADL/ADL Training No Interventions Intervention Associated Problem/Goal Status Variance Visit Notes Plan for Next Visit Problem:Assess and Instruct Home Visit Goal:Home Care Plan Completed Follow up education for next visit: TTWB precautions Skilled intervention at next visit: meal prep training Activities of Daily Living (IADL/ADL) Training Problem:IADL/ADL Training Goal:IADL/ADL Completed See ADL tab for ADL training Interventions Intervention Associated Problem/Goal Status Variance Visit Notes Plan for Next Visit Problem:Assess and Instruct Home Visit Goal:Home Care Plan Completed Follow up education for next visit: safety with WB precaution Skilled intervention at next visit: HEP next visit pending hospitalization Problems Problem Start Date Status Goals Interventions Assess and Instruct Home Visit Disciplines: Mcfp 11/16/2020 Active 1 goal linked to scheduled/documented intervention 4 goal interventions scheduled/documented in this visit Medication Management Disciplines: Mcfp 11/16/2020 Active 1 goal linked to scheduled/documented intervention 1 goal intervention scheduled/documented in this visit Pain Management Disciplines: Mcfp 11/16/2020 Active 1 goal linked to scheduled/documented intervention 1 goal intervention scheduled/documented in this visit Wound Care and/or Skin Problems Disciplines: Mcfp 11/16/2020 Active - 1 problem intervention scheduled/documented in this visit Goals Goal Associated Problem Outcome Goal Met? Visit Notes Home Care Plan Assess and Instruct Home Visit No Medications Medication Management No Pain Pain Management No Interventions Intervention Associated Problem/Goal Status Variance Visit Notes Discharge Planning Problem:Assess and Instruct Home Visit Goal:Home Care Plan Scheduled Falls Problem:Assess and Instruct Home Visit Goal:Home Care Plan Scheduled Plan for Next Visit Problem:Assess and Instruct Home Visit Goal:Home Care Plan Scheduled Safety Problem:Assess and Instruct Home Visit Goal:Home Care Plan Scheduled Instruct Medication Management Problem:Medication Management Goal:Medications Scheduled Assess Pain Characteristics and Current Pain Regimen and Instruct Methods of Pain Relief Problem:Pain Management Goal:Pain Scheduled Wound/Incision Problem:Wound Care and/or Skin Problems Scheduled Visit Details Visit Type -SN HH OASIS Resu mption of Care Discipline -Mcfp Problems Problem Start Date Status Goals Interventions Assess and Instruct Home Visit Disciplines: Mcfp 11/16/2020 Active 1 goal linked to scheduled/documented intervention 4 goal interventions scheduled/documented in this visit Genitourinary Disciplines: Mcfp 11/16/2020 Active 1 goal linked to scheduled/documented intervention 1 goal intervention scheduled/documented in this visit Medication Management Disciplines: Mcfp 11/16/2020 Active 1 goal linked to scheduled/documented intervention 1 goal intervention scheduled/documented in this visit Pain Management Disciplines: Mcfp 11/16/2020 Active 1 goal linked to scheduled/documented intervention 1 goal intervention scheduled/documented in this visit Wound Care and/or Skin Problems Disciplines: Mcfp 11/16/2020 Active - 2 problem interventions scheduled/documented in this visit Interventions Intervention Associated Problem/Goal Status Variance Visit Notes Discharge Planning Problem:Assess and Instruct Home Visit Goal:Home Care Plan Completed Falls Problem:Assess and Instruct Home Visit Goal:Home Care Plan Completed Plan for Next Visit Problem:Assess and Instruct Home Visit Goal:Home Care Plan Completed Safety Problem:Assess and Instruct Home Visit Goal:Home Care Plan Completed Instruct Urinary Incontinence Problem:Genitourinary Goal:Genitourinary Completed Instruct Medication Management Problem:Medication Management Goal:Medications Completed Assess Pain Characteristics and Current Pain Regimen and Instruct Methods of Pain Relief Problem:Pain Management Goal:Pain Completed Wound care Problem:Wound Care and/or Skin Problems Completed Wound/Incision Problem:Wound Care and/or Skin Problems Scheduled Visit Details Visit Type -OT Secondary KRYSTIN Discipline -Occupational Therapy Problems Problem Start Date Status Goals Interventions Assess and Instruct Home Visit Disciplines: Occupational Therapy 11/16/2020 Active 1 goal linked to scheduled/documented intervention 2 goal interventions scheduled/documented in this visit IADL/ADL Training Disciplines: Occupational Therapy 11/16/2020 Active 1 goal linked to scheduled/documented intervention Goals Goal Associated Problem Outcome Goal Met? Visit Notes Home Care Plan Assess and Instruct Home Visit No IADL/ADL IADL/ADL Training Partially Met No Interventions Intervention Associated Problem/Goal Status Variance Visit Notes Plan for Next Visit Problem:Assess and Instruct Home Visit Goal:Home Care Plan Completed Review exercises, cold pack use, cam boot application and kitchen skills. Therapy Reassessment Problem:Assess and Instruct Home Visit Goal:Home Care Plan Completed Functional reassessment findings compared to prior assessment: Pt is capable of getting her own meal, reaching microwave, moving herself safely on her rollator to kitchen and BSC. Pt has now shown ability to put cam boot on and remove it for better compliance during transfers, Pts nutrition should now improve, and her ability to do her own bathing needs to improve. She u=is unable to reach to buttocks for personal cleaning/washing. Progress towards goals: see above Updates made to careplan. Adding 2w1 to OT POC Visit Details Visit Type -PT Initial Evalu ation Discipline -Physical Therapy Problems Problem Start Date Status Goals Interventions Assess and Instruct Home Visit Disciplines: Physical Therapy 11/17/2020 Active 2 goals linked to scheduled/documented interventions 4 goal interventions scheduled/documented in this visit Goals Goal Associated Problem Outcome Goal Met? Visit Notes Home Care Plan Assess and Instruct Home Visit No Medications Assess and Instruct Home Visit No Interventions Intervention Associated Problem/Goal Status Variance Visit Notes Falls Problem:Assess and Instruct Home Visit Goal:Home Care Plan Scheduled Plan for Next Visit Problem:Assess and Instruct Home Visit Goal:Home Care Plan Scheduled Safety Problem:Assess and Instruct Home Visit Goal:Home Care Plan Scheduled Instruct Medication Management Problem:Assess and Instruct Home Visit Goal:Medications Scheduled Interventions Intervention Associated Problem/Goal Status Variance Visit Notes Plan for Next Visit Problem:Assess and Instruct Home Visit Goal:Home Care Plan Completed OT to RA Activities of Daily Living (IADL/ADL) Training Problem:IADL/ADL Training Goal:IADL/ADL Completed Pt engaged in IADL housekeeping tasks with education on work simplification/energy conservation strategies to decrease pain with WB through RLE, pt demo's G carryover. Visit Details Visit Type -OT OASIS Dischar ge Discipline -Occupational Therapy Problems Problem Start Date Status Goals Interventions Assess and Instruct Home Visit Disciplines: Occupational Therapy 11/16/2020 Resolved on 12/28/2020 3 goals linked to scheduled/documented interventions IADL/ADL Training Disciplines: Occupational Therapy 11/16/2020 Resolved on 12/28/2020 1 goal linked to scheduled/documented intervention Goals Goal Associated Problem Outcome Goal Met? Visit Notes Home Care Plan Assess and Instruct Home Visit Partially Met No Medications Assess and Instruct Home Visit Not Addressed No Pain Assess and Instruct Home Visit Partially Met No IADL/ADL IADL/ADL Training Not Met No Actions Home Health Visit - Actions and Narratives (unrecognized section and content) cp assess, med review, call to dr enriquez's ofc for orders. micheline will see dr enriquez thursday at 1320. ot present during visit. order for pt obtained. following questions asked to dr enriquez's staff: PT for transfers toe touch weight bearing if necessary omeprazole [facility] batsheva cook, dr enriquez's ofc 120pm thursday front wheeled walker? Narratives Upon BURROWS arrival, patient i n tears secondary to RLE pain. Patient reports she went to Dr barragan on 11/27, physician advised that the patient has an infection of RLE & recommended dressing changes 2x/day. Patient states she is unable to change her own dressing and does not have the support for assistance with dressing changes. The patient also reports she has a follow up appointment with on 11/30 & if infection is not improving pt will be sent to ER (all reported by patient). BURROWS recommended contacting physican office and requesting medical recommendation secondary to increased pain & inability to care for self or manage dressing changes in home & ask if SNF placement if necessary. Patient states she plans to discuss options with family members and plans to call physican this date. Actions cp assess, med review, drsg chg to derrick ivey. micheline states she cannot out boot on and has not eaten because she cannot get to the refrigerator, however later stated she does use the bedside commode which is on the other side of the room. when asked about dressing changes micheline states she cannot reach her wound. upon admission micheline stated she had a friend and her mother to visit her daily, however today states she has no one to help with dressing changes, ambulation, applying the boot, or get her food. sr account executive already involved Narratives complete sponge bath done. n o skin issues lotoin appllied charles care done. assist with dressing. denies pain ambulated to chair phone in reach for safety Actions cannot descend steps alone Actions Dressing changed for patient this date Narratives Upon BURROWS arrival, patient/h ome disheveled, patient tearful and voicing feelings of depression secondary to lack of assistance and isolation. Education provided on upcoming RA and patient need to collaboration with OT regarding RA vs DC & benefits of continuing OT services to promote patient participation in daily functional routine & continue improving independence/education on alternative strategies to complete IADL tasks d/t lack of engagement with housekeeping/meal prep. Care team notified of concerns. Emotional support provided to patient. Narratives several phone calls made no answer left message drove to home no answer to door. RN aware Actions [facility] due to emotional health concerns. Left VM requesting return call. Actions Pt has FWB granted to her, c an get foot wet and can wear a sandal in the house only. No signs of infection. She is ready to get into the shower with HAT AND CAP DRYING ROOM ATTENDANT's help this week. Actions Missed Visit. Multiple attem pts made to reach patient with no success. Bernadette Mccoy LISW - 11/30/2020 2:35 PM EST Consult Notes (unrecognized section and content) Associated Order(s): IP CONSULT TO CARE MANAGEMENT COMPLEX DISCHARGE Date: 11/30/2020 Time: 2:35 PM Patient Name: Micheline Fox Date of : 1960 Sex: Female Consult received for discharge needs. Per Eli [place] NP, the patient has current in home services and is interested in possible additional services in the home at discharge. Attempted to meet with the patient to complete assessment, however the patient was sleeping soundly and would not wake to calling her name. Initial assessment completed by chart review at this time, which indicates the patient was receiving services from [facility] prior to admission. Notify home health care completed. Notified Sully Goyal RN, and Tiff Combs RN with [facility] of the patient's admission. Per charting, the patient lives at home. Care management will follow up with the patient as able to complete assessment and evaluate for any additional discharge needs. CHUCHO Aviles-S Discharge Planning Living Arrangements: Alone Support Systems: Children, Friends/neighbors Assistance Needed: yes Type of Residence: Private residence Prior to Admission Home Care Services: Yes Type of Current Home Care Services: Home health care Current Agency Name: [facility] Anticipated Home Care Needs: Home health care Anticipated Facility Type: Home care Anticipated Discharge Plan Anticipated Home Care Needs: Home health care Anticipated Facility Type: Home care documented in this encounter Care Teams (unrecognized sec tion and content) Sexual Abuse Counsellor Relationship Specialty Start Date End Date Leticia Sylvester MD [address] [place] [id number] PCP - General Internal Medicine 05/30/16 Sexual Abuse Counsellor Relationship Specialty Start Date End Date Leticia Sylvester MD PCP - General Internal Medicine 09/16/13 Sexual Abuse Counsellor Relationship Specialty Start Date End Date Lupillo Ocampo MD [address] [place] [address] [place] [address] Physician Gastroenterology 06/26/20 Jaime Carter APRN-CONTRACTS DIRECTOR [address] [place] [address] [place] [address] SUPPLY CHAIN GENERALIST Gastroenterology 11/23/20 Sexual Abuse Counsellor Relationship Specialty Start [place] [address] PCP - General 04/23/22 Lupillo Ocampo MD [address] [place] [address] [place] [address] Physician Gastroenterology 06/26/20 Jaime Carter, EXAMINATION SCORER-CONTRACTS DIRECTOR [address] [place] [address] [place] [address] SUPPLY CHAIN GENERALIST Gastroenterology 11/23/20 Sexual Abuse Counsellor Relationship Specialty Start Date End Date Leticia Sylvester [address] [place] [address] PCP - General 04/23/22 Lupillo Ocampo MD [address] [place] [address] [place] [address] Physician Gastroenterology 06/26/20 Jaime Carter, EXAMINATION SCORER-CONTRACTS DIRECTOR [address] [place] [address] [place] [address] SUPPLY CHAIN GENERALIST Gastroenterology 11/23/20 Sexual Abuse Counsellor Relationship Specialty Start Date End Date Leticia Sylvester [address] [place] [address] PCP - General 04/23/22 Lupillo Ocampo MD [address] [place] [address] [place] [address] Physician Gastroenterology 06/26/20 Jaime Carter APRN-CONTRACTS DIRECTOR [address] [place] [address] [place] [address] SUPPLY CHAIN GENERALIST Gastroenterology 11/23/20 Sexual Abuse Counsellor Relationship Specialty Start Date [place] [address] PCP - General 04/23/22 Lupillo Ocampo MD [address] [place] [address] [place] [address] Physician Gastroenterology 06/26/20 Jaime Carter APRN-CONTRACTS DIRECTOR [address] [place] [address] [place] [address] SUPPLY CHAIN GENERALIST Gastroenterology 11/23/20 Sexual Abuse Counsellor Relationship Specialty Start Date End Date Leticia Sylvester [address] [place] [address] PCP - General 04/23/22 Lupillo Ocampo MD [address] [place] [address] [place] [address] Physician Gastroenterology 06/26/20 Jaime Carter APRN-CONTRACTS DIRECTOR [address] [place] [address] [place] [address] SUPPLY CHAIN GENERALIST Gastroenterology 11/23/20 Sexual Abuse Counsellor Relationship Specialty Start Date End Date Leticia Sylvester [address] [place] [address] PCP - General 04/23/22 Lupillo Ocampo MD [address] [place] [address] [place] [address] Physician Gastroenterology 06/26/20 Jaime Carter APRN-CONTRACTS DIRECTOR [address] [place] [address] [place] [address] SUPPLY CHAIN GENERALIST Gastroenterology 11/23/20 Sexual Abuse Counsellor Relationship Specialty Start Date [place] [address] PCP - General 04/23/22 Lupillo Ocampo MD [address] [place] [address] [place] [address] Physician Gastroenterology 06/26/20 Jaime Carter, EXAMINATION SCORER-CONTRACTS DIRECTOR [address] [place] [address] [place] [address] SUPPLY CHAIN GENERALIST Gastroenterology 11/23/20 Eusebia Jones EXAMINATION SCORER-CONTRACTS DIRECTOR [address] [place] [address] [place] [address] SUPPLY CHAIN GENERALIST Gastroenterology 04/26/22 Sexual Abuse Counsellor Relationship Specialty Start Date [place] [address] PCP - General 04/23/22 Lupillo Ocampo MD [address] [place] [address] [place] [address] Physician Gastroenterology 06/26/20 Jaime Carter, EXAMINATION SCORER-CONTRACTS DIRECTOR [address] [place] [address] [place] [address] SUPPLY CHAIN GENERALIST Gastroenterology 11/23/20 Eusebia Jones, EXAMINATION SCORER-CONTRACTS DIRECTOR [address] [place] [address] [place] [address] SUPPLY CHAIN GENERALIST Gastroenterology 04/26/22 Sexual Abuse Counsellor Relationship Specialty Start Date [place] [address] PCP - General 04/23/22 Lupillo Ocampo MD [address] [place] [address] [place] [address] Physician Gastroenterology 06/26/20 Jaime Carter APRN-CONTRACTS DIRECTOR [address] [place] [address] [place] [address] SUPPLY CHAIN GENERALIST Gastroenterology 11/23/20 Eusebia Jones APRN-CONTRACTS DIRECTOR [address] [facility] [place] [address] SUPPLY CHAIN GENERALIST Gastroenterology 04/26/22 Sexual Abuse Counsellor Relationship Specialty Start Date End Date [facility] [address] [place] [address] PCP - General 04/23/22 Lupillo Ocampo MD [address] [place] [address] [place] [address] Physician Gastroenterology 06/26/20 Jaime Carter APRN-CONTRACTS DIRECTOR [address] [place] [address] [place] [address] SUPPLY CHAIN GENERALIST Gastroenterology 11/23/20 Eusebia Jones, EXAMINATION SCORER-CONTRACTS DIRECTOR [address] [place] [address] [place] [address] SUPPLY CHAIN GENERALIST Gastroenterology 04/26/22 Sexual Abuse Counsellor Relationship Specialty Start Date End Date Leticia Sylvester [address] [place] [address] PCP - General 04/23/22 Lupillo Ocampo MD [address] [place] [address] [place] [address] Physician Gastroenterology 06/26/20 Jaime Carter APRN-CONTRACTS DIRECTOR [address] [place] [address] [place] [address] SUPPLY CHAIN GENERALIST Gastroenterology 11/23/20 Eusebia Jones APRN-CONTRACTS DIRECTOR [address] [place] [address] [place] [address] SUPPLY CHAIN GENERALIST Gastroenterology 04/26/22 Sexual Abuse Counsellor Relationship Specialty Start Date End Date Leticia Sylvester [address] [place] [address] PCP - General 04/23/22 Lupillo Ocampo MD [address] [place] [address] [place] [address] Physician Gastroenterology 06/26/20 Jaime Carter, EXAMINATION SCORER-CONTRACTS DIRECTOR [address] [place] [address] [place] [address] SUPPLY CHAIN GENERALIST Gastroenterology 11/23/20 Eusebia Jones EXAMINATION SCORER-CONTRACTS DIRECTOR [address] [place] [address] [place] [address] SUPPLY CHAIN GENERALIST Gastroenterology 04/26/22 Sexual Abuse Counsellor Relationship Specialty Start Date End Date Leticia Sylvester [address] [place] [address] PCP - General 04/23/22 Lupillo Ocampo MD [address] [facility] [place] [address] Physician Gastroenterology 06/26/20 Jaime Carter, EXAMINATION SCORER-CONTRACTS DIRECTOR [address] [facility] [place] [address] SUPPLY CHAIN GENERALIST Gastroenterology 11/23/20 Eusebia Jones, EXAMINATION SCORER-CONTRACTS DIRECTOR [address] [place] [address] [place] [address] SUPPLY CHAIN GENERALIST Gastroenterology 04/26/22 Sexual Abuse Counsellor Relationship Specialty Start Date End Date Leticia Sylvester MD PCP - General Internal Medicine 09/16/13 Sexual Abuse Counsellor Relationship Specialty Start Date End Date Higinio Leticia [address] [place] [address] PCP - General 04/23/22 Lupillo Ocampo MD [address] [facility] [place] [address] Physician Gastroenterology 06/26/20 Jiame Carter, EXAMINATION SCORER-CONTRACTS DIRECTOR [address] [facility] [place] [address] SUPPLY CHAIN GENERALIST Gastroenterology 11/23/20 Eusebia Jones, EXAMINATION SCORER-CONTRACTS DIRECTOR [address] [facility] [place] [address] SUPPLY CHAIN GENERALIST Gastroenterology 04/26/22 Sexual Abuse Counsellor Relationship Specialty Start Date End Date Leticia Sylvester MD PCP - General Internal Medicine 09/16/13 Sexual Abuse Counsellor Relationship Specialty Start Date End Date Leticia Sylvester MD PCP - General Internal Medicine 09/16/13 Sexual Abuse Counsellor Relationship Specialty Start Date End Date Leticia Sylvester MD PCP - General Internal Medicine 09/16/13 Sexual Abuse Counsellor Relationship Specialty Start Date End Date Leticia Sylvester MD PCP - General Internal Medicine 09/16/13 Sexual Abuse Counsellor Relationship Specialty Start Date End Date Leticia Sylvester MD [address] [facility] [place] [address] PCP - General Internal Medicine 05/30/16 Ishaan Raines MD [address] [facility] [address] Surgeon Vascular Surgery 04/17/23 Sexual Abuse Counsellor Relationship Specialty Start Date End Date Leticia Sylvester MD PCP - General Internal Medicine 09/16/13 Sexual Abuse Counsellor Relationship Specialty Start Date End Date Leticia Sylvester MD [address] [facility] [place] [id number] PCP - General Internal Medicine 05/30/16 Ishaan Raines MD [address] [facility] [place] [id number] Surgeon Vascular Surgery 04/17/23 Sexual Abuse Counsellor Relationship Specialty Start Date End Date Leticia Sylvester [address] [place] [address] PCP - General 04/23/22 Lupillo Ocampo MD [address] [facility] [place] [address] Physician Gastroenterology 06/26/20 Jaime Carter, EXAMINATION SCORER-CONTRACTS DIRECTOR [address] [facility] [place] [address] SUPPLY CHAIN GENERALIST Gastroenterology 11/23/20 Eusebia Jones, EXAMINATION SCORER-CONTRACTS DIRECTOR [address] [facility] [place] [address] SUPPLY CHAIN GENERALIST Gastroenterology 04/26/22 Sexual Abuse Counsellor Relationship Specialty Start Date End Date Leticia Sylvester MD [address] [address] PCP - General Internal Medicine 06/02/23 Sexual Abuse Counsellor Relationship Specialty Start Date End Date Leticia Sylvester MD [address] [facility] [place] [address] PCP - General Internal Medicine 05/30/16 Ishaan Raines MD [address] [place] [address] Surgeon Vascular Surgery 04/17/23 Sexual Abuse Counsellor Relationship Specialty Start Date End Date Leticia Sylvester MD [address] [place] [address] PCP - General Internal Medicine 06/02/23 Sexual Abuse Counsellor Relationship Specialty Start Date End Date Leticia Sylvester [address] [place] [address] PCP - General 04/23/22 Lupillo Ocampo MD [address] [place] [address] [place] [address] Physician Gastroenterology 06/26/20 aJime Carter APRN-CONTRACTS DIRECTOR [address] [facility] [place] [address] SUPPLY CHAIN GENERALIST Gastroenterology 11/23/20 Eusebia Jones APRN-CONTRACTS DIRECTOR [address] [facility] [place] [address] SUPPLY CHAIN GENERALIST Gastroenterology 04/26/22 Sexual Abuse Counsellor Relationship Specialty Start Date End Date Leticia Sylvester [address] [place] [address] PCP - General 04/23/22 Lupillo Ocampo MD [address] [facility] [place] [address] Physician Gastroenterology 06/26/20 Jaime Carter APRN-CONTRACTS DIRECTOR [address] [facility] [place] [address] SUPPLY CHAIN GENERALIST Gastroenterology 11/23/20 Eusebia Jones APRN-CNP [address] [place] [address] [place] [address] SUPPLY CHAIN GENERALIST Gastroenterology 04/26/22 Sexual Abuse Counsellor Relationship Specialty Start Date End Date Leticia Sylvester [address] [place] [address] PCP - General 04/23/22 Lupillo Ocampo MD [address] [place] [address] [place] [address] Physician Gastroenterology 06/26/20 Jaime Carter APRN-CNP [address] [place] [address] [place] [address] SUPPLY CHAIN GENERALIST Gastroenterology 11/23/20 Eusebia Jones APRN-CONTRACTS DIRECTOR [address] [place] [address] [place] [address] SUPPLY CHAIN GENERALIST Gastroenterology 04/26/22 Sexual Abuse Counsellor Relationship Specialty Start Date End Date Leticia Sylvester [address] [place] [address] PCP - General 04/23/22 Lupillo Ocampo MD [address] [place] [address] [place] [address] Physician Gastroenterology 06/26/20 Jaime Carter APRN-CNP [address] [place] [address] [place] [address] SUPPLY CHAIN GENERALIST Gastroenterology 11/23/20 Eusebia Jones APRN-CONTRACTS DIRECTOR [address] [place] [address] [place] [address] SUPPLY CHAIN GENERALIST Gastroenterology 04/26/22 Sexual Abuse Counsellor Relationship Specialty Start Date End Date Leticia Sylvester [address] [place] [address] PCP - General 04/23/22 Lupillo Ocampo MD [address] [place] [address] [place] [address] Physician Gastroenterology 06/26/20 Jaime Carter APRN-CONTRACTS DIRECTOR [address] [place] [address] [place] [address] SUPPLY CHAIN GENERALIST Gastroenterology 11/23/20 Eusebia Jones APRN-CONTRACTS DIRECTOR [address] [place] [address] [place] [address] SUPPLY CHAIN GENERALIST Gastroenterology 04/26/22 Sexual Abuse Counsellor Relationship Specialty Start Date End Date Leticia Sylvester [address] [place] [address] PCP - General 04/23/22 Lupillo Ocampo MD [address] [place] [address] [place] [address] Physician Gastroenterology 06/26/20 Jaime Carter APRN-CONTRACTS DIRECTOR [address] [place] [address] [place] [address] SUPPLY CHAIN GENERALIST Gastroenterology 11/23/20 Eusebia Jones APRN-CONTRACTS DIRECTOR [address] [place] [address] [place] [address] SUPPLY CHAIN GENERALIST Gastroenterology 04/26/22 Sexual Abuse Counsellor Relationship Specialty Start Date End Date Leticia Sylvester [address] [place] [address] PCP - General 04/23/22 Lupillo Ocampo MD [address] [facility] [place] [address] Physician Gastroenterology 06/26/20 Jaime Carter, EXAMINATION SCORER-CONTRACTS DIRECTOR [address] [facility] [place] [address] SUPPLY CHAIN GENERALIST Gastroenterology 11/23/20 Eusebia Jones EXAMINATION SCORER-CONTRACTS DIRECTOR [address] [facility] [place] [address] SUPPLY CHAIN GENERALIST Gastroenterology 04/26/22 Sexual Abuse Counsellor Relationship Specialty Start Date End Date Eduardo Ahmadi GalenDO [address] [facility] [place] [address] PCP - General Internal Medicine 02/26/24 Scheduled Active and Recently Administ ered Medications (unrecognized section and content) Medication Order 01/29/2022 01/30/2022 01/31/2022 ALPRAZolam (XANAX) tablet 1 mg 1 mg, Oral, DAILY, First dose on Thu01/28/22 at 1200, Until Discontinued 0850 (Given - Provider: Vaishnavi Ybarra RN) 0935 (Given - Provider: Eva Hamilton, ARLEEN) 0839 (Hold - Provider: Yessi Patel RN - Reason: Other - Comment: per physician) cholecalciferol (VITAMIN D3) tablet 1,000 Units 1,000 Units, Oral, DAILY, First dose on Thu01/28/22 at 1200, Until Discontinued 0850 (Given - Provider: Vaishnavi Ybarra RN) 0935 (Given - Provider: Eva Hamilton RN) 0905 (Given - Provider: Yessi Patel RN) docusate (COLACE) capsule 200 mg 200 mg, Oral, DAILY AT BEDTIME, First dose on Thu01/28/22 at 2100, Until Discontinued 2037 (Given - Provider: Kerrie Pacheco RN) 2052 (Given - Provider: Kerrie Pacheco RN) DULoxetine (CYMBALTA) capsule DR 60 mg 60 mg, Oral, DAILY, First dose on Thu01/28/22 at 1200, Until Discontinued, Swallow capsule whole; do not crush or chew. May add contents of capsule to apple juice or applesauce (but NOT chocolate) taking care not to crush the pellets and damage the enteric coating. 0850 (Given - Provider: Vaishnavi Ybarra RN) 0935 (Given - Provider: Eva Hamilton RN) 0905 (Given - Provider: Yessi Patel RN) Enoxaparin Sodium (LOVENOX) injection 40 mg 40 mg, Subcutaneous, DAILY, First dose on Thu01/28/22 at 2100, Until Discontinued, Indications: DVT/PE prophylaxis 1301 (Held by provider - Provider: HEATHER Shin - Reason: Other)2100 (Automatically Held - Provider: HEATHER Shin) 2100 (Automatically Held - Provider: HEATHER Shin) 1258 (Unheld by provider - Provider: System Discharge) hydrALAZINE (APRESOLINE) tablet 25 mg 25 mg, Oral, 3 TIMES DAILY, First dose on Thu01/28/22 at 1400, Until Discontinued 0850 (Given - Provider: Vaishnavi Ybarra RN)1513 (Given - Provider: Vaishnavi Ybarra RN)2037 (Given - Provider: Kerrie Pacheco RN) 0935 (Given - Provider: Eva Hamilton RN)1420 (Not Given - Provider: Eva Hamilton RN - Reason: Patient/family refused - Comment: Pt states she would prefer to take while at home.)2053 (Given - Provider: Kerrie Pacheco RN) 09 (Given - Provider: Yessi Patel RN) losartan (COZAAR) tablet 50 mg 50 mg, Oral, DAILY, First dose on Thu01/28/22 at 1200, Until Discontinued 0850 (Given - Provider: Vaishnavi Ybarra RN) 0935 (Given - Provider: Eva Hamilton, ARLEEN) 0905 (Given - Provider: Yessi Patel RN) magnesium sulfate 2 g/50 mL in sterile water premix IVPB 2 g 50 mL (total volume) 2 g, Intravenous, Administer over 4 Hours, DAILY, First dose on Thu01/29/22 at 0600, Until Discontinued, Give if magnesium is less than 2 on morning labs. Infuse at a rate of 0.5 gm/hour. 0750 (Not Given - Provider: Vaishnavi Ybarra RN - Reason: Order Parameters not met) 0726 (Not Given - Provider: Eva Hamilton RN - Reason: Order Parameters not met) 0738 (Not Given - Provider: Yessi Patel RN - Reason: Order Parameters not met)0739 (Not Given - Provider: Yessi Patel RN - Reason: Order Parameters not met) metoprolol (LOPRESSOR) tablet 25 mg 25 mg, Oral, 2 TIMES DAILY, First dose on Thu01/28/22 at 1130, Until Discontinued, 0850 (Given - Provider: Vaishnavi Ybarra RN)1837 (Given - Provider: Vaishnavi Ybarra RN) 0935 (Given - Provider: Eva Hamilton RN)1820 (Given - Provider: Eva Hamilton RN - Comment: pt was supposed to be discharged and self removed ID band) 0905 (Given - Provider: Yessi Patel RN) nitroGLYCERIN (NITRO-BID) 2 % ointment 0.5 inch 0.5 inch, Topical, 3 TIMES DAILY, First dose on Thu01/29/22 at 0930, Until Discontinued, 0953 (Given - Provider: Vaishnavi Ybarra RN)1513 (Given - Provider: Vaishnavi Ybarra, ARLEEN)2048 (Given - Provider: Kerrie Pacheco RN - Comment: tore bar code and wouldn't scan) 0936 (Given - Provider: Eva Hamilton RN)1420 (Not Given - Provider: Eva Hamilton RN - Reason: Patient/family refused - Comment: Pt states this gives her a headache and she does not want another dose.)2058 (Not Given - Provider: Kerrie Pacheco RN - Reason: Patient/family refused) 0911 (Not Given - Provider: Yessi Patel RN - Reason: Contraindicated) pantoprazole (PROTONIX) tablet DR 40 mg 40 mg, Oral, DAILY, First dose on Thu01/28/22 at 1200, Until Discontinued, Do not crush., Indications: Inpt Stress Ulcer Prophylaxis 0851 (Given - Provider: Vaishnavi Ybarra RN) 0935 (Given - Provider: Eva Hamilton RN) 0905 (Given - Provider: Yessi Patel RN) potassium chloride (K-DUR) tablet ER 40 mEq(Linked Group 1) 40 mEq, Oral, DAILY, First dose on Thu01/29/22 at 0600, Until Discontinued, Give if potassium is 3.1 to 3.4 on morning labs and patient is able to tolerate oral medications Swallow tablets whole; do not crush, chew, or suck on tablet. Tablet may also be broken in half and each half swallowed separately. 0750 (Not Given - Provider: Vaishnavi Ybarra RN - Reason: Order Parameters not met) 0726 (Not Given - Provider: Eva Hamilton RN - Reason: Order Parameters not met) 0739 (Not Given - Provider: Yessi Patel RN - Reason: Order Parameters not met) potassium chloride 40 mEq in 0.9% sodium chloride 500 ml IVPB(Linked Group 1) 40 mEq, Intravenous, at 125 mL/hr, Administer over 4 Hours, DAILY, First dose on Thu01/29/22 at 0600, Until Discontinued, Give if potassium is less than 3.1 on morning labs OR if potassium is 3.1 to 3.4 on morning labs and patient is UNABLE to tolerate oral medications 0750 (See Alternative - Provider: Vaishnavi Ybarra RN) 0726 (See Alternative - Provider: Eva Hamilton RN) 0739 (See Alternative - Provider: Yessi Patel RN) regadenoson (LEXISCAN) injection 0.4 mg (COMPLETED) 0.4 mg, Intravenous, ONCE, 1 dose, On Shy 01/30/22 at 0830, Give rapid iv push over 10 seconds, NM Procedure 0742 (Given - Provider: Yessy Root) topiramate (TOPAMAX) tablet 50 mg 50 mg, Oral, DAILY AT BEDTIME, First dose on Thu01/27/22 at 2300, Until Discontinued, ---MEDICATION EXPOSURE PRECAUTIONS--- Administer at least 1hr after meals. Do not split, break, crush, or open doses of this medication. Contact pharmacy if altered dose or route needed. 2037 (Given - Provider: Kerrie Pacheco RN) 2053 (Given - Provider: Kerrie Pacheco, RN) traZODone (DESYREL) tablet 300 mg 300 mg, Oral, DAILY AT BEDTIME, First dose on Thu01/27/22 at 2300, Until Discontinued 2037 (Given - Provider: Kerrie Pacheco RN) 2099 (Not Given - Provider: Kerrie Pacheco RN - Reason: Other - Comment: holding medication due to patient drowsiness throughout the day and unsteady ambulation) 13 (Given - Provider: Kerrie Pacheco RN) zolpidem (AMBIEN) tablet 5 mg 5 mg, Oral, DAILY AT BEDTIME, First dose on Thu01/27/22 at 2330, Until Discontinued, Therapeutic sub for Eszopiclone 2 mg 2037 (Given - Provider: Kerrie Pacheco RN) 2099 (Not Given - Provider: Kerrie Pacheco RN - Reason: Other - Comment: holding medication due to patient drowsiness throughout the day and unsteady ambulation) 001 (Given - Provider: Kerrie Pacheco RN) Continuous Medication Order 01/29/2022 01/30/2022 01/31/2022 sodium chloride 0.9% IV solution Intravenous, at 75 mL/hr, CONTINUOUS, Starting on Thu01/27/22 at 1915, Until Thu01/31/22 at 1258 1929 ($$New Bag$$ - Provider: Vaishnavi Ybarra RN)2349 (Rate/Dose Verify - Provider: Kerrie Pacheco RN) 0421 (Rate/Dose Verify - Provider: Kerrie Pacheco RN)0938 (Restarted - Provider: Eva Hamilton RN)1922 (Stopped - Provider: Kerrie Pacheco RN) PRN Medication Order 01/29/2022 01/30/2022 01/31/2022 acetaminophen (TYLENOL) tablet 650 mg 650 mg, Oral, EVERY 4 HOURS NEEDED, Starting on Thu01/27/22 at 2210, Until Thu01/31/22 at 1258, Mild Pain, Oral temp > 100.4 F, alum/mag hydrox.-simethicone oral suspension 30 mL 30 mL, Oral, EVERY 6 HOURS NEEDED, Starting on Thu01/28/22 at 1123, Until Thu01/31/22 at 1258, Indigestion, Per 5 mL is equivalent to: (Alum-Mag Hydroxide 200-225 mg and Simethicone 20 mg) and (Alum-Mag Hydroxide 200-200 mg and Simethicone 20 mg) diphenhydrAMINE (BENADRYL) injection 25 mg 25 mg, Intravenous, EVERY 6 HOURS NEEDED, Starting on Thu01/28/22 at 1123, Until Thu01/31/22 at 1258, Itching, Sleep, Allergic Reaction (Swelling throat, tongue or lips, rash, difficulty breathing), Infusion Reaction, Extra-pyramidal Symptoms hydroCODone-acetaminophen (NORCO) 5-325 MG per tablet 1 tablet 1 tablet, Oral, EVERY 6 HOURS NEEDED, Starting on Thu01/28/22 at 1123, Until Thu01/31/22 at 1258, Severe Pain, Maximum dose of acetaminophen is 4000 mg from all sources in 24 hours. 1837 (Given - Provider: Vaishnavi Ybarra RN) 0935 (Given - Provider: Eva Hamilton RN) ketorolac (TORADOL) injection 30 mg 30 mg, Intravenous, EVERY 8 HOURS NEEDED, Starting on Thu01/27/22 at 2251, Until Thu01/31/22 at 1258, Severe Pain 2036 (Given - Provider: Kerrie Pacheco RN) labetalol (NORMODYNE) injection 20 mg 20 mg, Intravenous, EVERY 4 HOURS NEEDED, Starting on Thu01/28/22 at 1123, Until Thu01/31/22 at 1258, systolic blood pressure greater than 160, Administration duration: up to 20 mg over 2 minutes. lactulose (CHRONULAC) oral solution 20 g 20 g, Oral, EVERY 4 HOURS NEEDED, Starting on Thu01/28/22 at 1123, Until Thu01/31/22 at 1258, Constipation 1st Line melatonin tablet 3 mg 3 mg, Oral, DAILY AT BEDTIME NEEDED, Starting on Thu01/28/22 at 1123, Until Thu01/31/22 at 1258, Insomnia naloxone (NARCAN) injection 0.04 mg 0.04 mg, Intravenous, NEEDED, Starting on Thu01/28/22 at 1123, Until Thu01/31/22 at 1258, Opioid Reversal, Respiratory Depression ondansetron 4mg/2ml (ZOFRAN) injection 4 mg 4 mg, Intravenous, EVERY 4 HOURS NEEDED, Starting on Thu01/27/22 at 2210, Until Thu01/31/22 at 1258, Nausea / Vomiting potassium phosphates 30 mmol in sodium chloride 0.9%, with overfill 535 mL (total volume) IVPB 30 mmol, Intravenous, Administer over 6 Hours, NEEDED, Starting on Thu01/28/22 at 1123, Until Thu01/31/22 at 1258, Other, If phospate <2.5, give 30mmol, Extravasation Risk TC-99M Cardiolite (Sestamibi) IVPB 5-30 millicurie (COMPLETED) 5-30 millicurie, Intravenous, NEEDED, 2 doses, Starting on Thu01/30/22 at 0754, Until Thu01/30/22 at 0742 0625 (Given - Radiology - Provider: Yessy Root)0742 (Given - Radiology - Provider: Yessy Root) tizanidine (ZANAFLEX) tablet 2 mg 2 mg, Oral, EVERY 8 HOURS NEEDED, Starting on Thu01/28/22 at 1121, Until Thu01/31/22 at 1258, Muscle spasms, Max: 36 mg/day zolpidem (AMBIEN) tablet 5 mg 5 mg, Oral, DAILY AT BEDTIME NEEDED, Starting on Thu01/28/22 at 1120, Until Thu01/31/22 at 1258, Sleep Linked Groups Order Group 1: potassium chloride (K-DUR) tablet ER 40 mEqJump to med 40 mEq, Oral, DAILY, First dose on Thu01/29/22 at 0600, Until Discontinued
Give if potassium is 3.1 to 3.4 on morning labs and patient is able to tolerate oral medications Swallow tablets whole; do not crush, chew, or suck on tablet. Tablet may also be broken in half and each half swallowed separately.
Or potassium chloride 40 mEq in 0.9% sodium chloride 500 ml IVPBJump to med 40 mEq, Intravenous, at 125 mL/hr, Administer over 4 Hours, DAILY, First dose on Thu01/29/22 at 0600, Until Discontinued
Give if potassium is less than 3.1 on morning labs OR if potassium is 3.1 to 3.4 on morning labs and patient is UNABLE to tolerate oral medications
PRN Medication Order 08/09/2022 08/10/2022 08/11/2022 naloxone (NARCAN) 0.4 MG/ML injection 0.4 mg, Intravenous Push, PRN, Starting on Thu08/11/22 at 0853, Until Discontinued, Respiratory Rate Less Than 8 for adults and less than 12 for Peds or for suspected overdose naloxone (NARCAN) 0.4 MG/ML injection 0.4 mg, Intravenous Push, PRN, Starting on Thu08/11/22 at 0853, Until Discontinued, Respiratory Rate Less Than 8 for adults and less than 12 for Peds or for suspected overdose, PACU Now ondansetron (ZOFRAN) 4 MG/2ML injection 4 mg, Intravenous Push, PACU ONCE PRN, Starting on Thu08/11/22 at 0853, Until Thu08/11/22 at 1452, Nausea, Vomiting, PACU Now sodium chloride 0.9 % (PF) 0.9 % injection 3 mL, Intravenous Push, PRN, Starting on Thu08/11/22 at 0853, Until Discontinued, For medication administration and blood draw, PACU Now No Frequency Medication Order 08/09/2022 08/10/2022 08/11/2022 acetaminophen (TYLENOL) tablet 1 dose, Starting on Thu08/11/22 at 1107, Until Thu08/11/22 at 2329 1130 (Due) Scheduled Medication Order 08/30/2022 08/31/2022 09/01/2022 Acetaminophen (TYLENOL) tablet 975 mg 975 mg, Oral, ONCE, 1 dose, On Thu09/01/22 at 2045, Maximum dose of acetaminophen is 4000 mg from all sources in 24 hours. 2022 (Not Given - Pr ovider: Loly Beebe RN - Reason: Patient/family refused) diphenhydrAMINE (BENADRYL) injection 50 mg (COMPLETED) 50 mg, Intravenous, ONCE, 1 dose, On Thu09/01/22 at 1715 1757 (Given - Provid er: Petra Jones RN) faMOTIdine (PEPCID) tablet 20 mg (COMPLETED) 20 mg, Oral, ONCE, 1 dose, On Thu09/01/22 at 1930 1857 (Given - Provid er: Petra Jones RN) Ibuprofen (MOTRIN) tablet 600 mg 600 mg, Oral, ONCE, 1 dose, On Thu09/01/22 at 2045, Give with food 2022 (Not Given - Pr ovider: Loly Beebe RN - Reason: Patient/family refused) ketorolac (TORADOL) injection 30 mg (COMPLETED) 30 mg, Intravenous, ONCE, 1 dose, On Thu09/01/22 at 1715 1757 (Given - Provid er: Petra Jones RN) methylPREDNISolone sodium succinate (SOLU-MEDROL) injection 125 mg (COMPLETED) 125 mg, Intramuscular, ONCE, 1 dose, On Thu09/01/22 at 1900 1852 (Given - Provid er: Petra Jones RN) sodium chloride 0.9% IV solution 1,000 mL (COMPLETED) 1,000 mL, Intravenous, Administer over 60 Minutes, ONCE, 1 dose, On Thu09/01/22 at 1715 1757 ($$New Bag$$ - Provider: Petra Jones RN)1812 (Stopped - Provider: Petra Jones RN) Scheduled Medication Order 02/14/2023 02/15/2023 02/16/2023 Cyclobenzaprine (FLEXERIL) tablet 10 mg (COMPLETED) 10 mg, Oral, ONCE, 1 dose, On Thu02/16/23 at 1849 1817 (Given - Provid er: Andrade Ramos RN) dexAMETHasone (DECADRON) injection 10 mg (COMPLETED) 10 mg, Intravenous, ONCE, 1 dose, On Thu02/16/23 at 1845 1817 (Given - Provid er: Andrade Ramos RN) HYDROmorphone (DILAUDID) injection 0.5 mg (COMPLETED) 0.5 mg, Intravenous, ONCE, 1 dose, On Thu02/16/23 at 184 1818 (Given - Provid er: Andrade Ramos RN) HYDROmorphone (DILAUDID) injection 1 mg (COMPLETED) 1 mg, Intravenous, ONCE, 1 dose, On Thu02/16/23 at 1645 1720 (Given - Provid er: Andrade Ramos RN) Ondansetron 4mg/2ml (ZOFRAN) injection 4 mg (COMPLETED) 4 mg, Intravenous, ONCE, 1 dose, On Thu02/16/23 at 1645 1720 (Given - Provid er: Andrade Ramos, ARLEEN) oxyCODONE-acetaminophen (PERCOCET) 5-325 MG per tablet 1 Each Oral, SEE ADMIN INSTRUCTIONS, Starting on Thu02/16/23 at 1907, Until Thu02/16/23 at 2159, Provide patient with 4 pack of Acetaminophen/Oxycodone 325-5 mg, take 1 or 2 tabs by mouth every 4 hours as needed for pain. Nursing to document as GIVEN on the NOV and include comment of patient receipt of the 4 pack. 1926 (Given - Provid er: Andrade Ramos RN - Comment: dispensed by provider, given to pt) Scheduled Medication Order 05/24/2023 05/25/2023 05/26/2023 Aspirin tablet delayed release 81 mg 81 mg, Oral, DAILY, First dose on Thu05/23/23 at 0900, Until Discontinued 0853 (Given - Provider: Loida Chakraborty RN) 916 (Given - Provider: Avery Cote, RN) 911 (Given - Provider: Keara Burrell, RN) Atorvastatin (LIPITOR) tablet 20 mg 20 mg, Oral, DAILY AT BEDTIME, First dose on Thu05/22/23 at 2130, Until Discontinued 2223 (Given - Provider: Navya Kelsey, ARLEEN) 2033 (Given - Provider: Benito Guerrero, RN) carveDILOL (COREG) tablet 12.5 mg 12.5 mg, Oral, EVERY 12 HOURS, First dose on Thu05/22/23 at 2130, Until Discontinued, 0853 (Given - Provider: Loida Chakraborty RN)2223 (Given - Provider: Navya Kelsey, ARLEEN) 09 (Given - Provider: Avery Cote RN)2034 (Given - Provider: Benito Guerrero, RN) 09 (Given - Provider: Keara Burrell, RN) Desvenlafaxine Succinate tab XL 100 mg 100 mg, Oral, DAILY, First dose on 05/23/23 at 0900, Until Discontinued 0900 (Automatically Held - Provider: HEATHER Shin) 0900 (Automatically Held - Provider: HEATHER Shin) 0900 (Automatically Held - Provider: HEATHER Shin)1920 (Unheld by provider - Provider: System Discharge) Docusate (COLACE) capsule 100 mg (CANCELED) 100 mg, Oral, 2 TIMES DAILY, First dose on 05/23/23 at 0900, Until Discontinued 0853 (Given - Provider: Loida Chakraborty RN)172 (Given - Provider: Loida Chakraborty RN) 09 (Not Given - Provider: Avery Cote RN - Reason: Patient/family refused) Docusate (COLACE) capsule 100 mg 100 mg, Oral, EVERY 12 HOURS, First dose (after last modification) on Thu05/25/23 at 2100, Until Discontinued 2033 (Given - Provider: Benito Guerrero RN) 09 (Given - Provider: Keara Burrell RN) Enoxaparin Sodium (LOVENOX) injection 40 mg 40 mg, Subcutaneous, DAILY, First dose on 05/23/23 at 0900, Until Discontinued, Indications: DVT/PE prophylaxis 0853 (Given - Provider: Loida Chakraborty RN) 0916 (Given - Provider: Avery Cote RN) 09 (Given - Provider: Keara Burrell, RN) hydroCHLOROthiazide (HYDRODIURIL) tablet 25 mg 25 mg, Oral, DAILY, First dose on 05/23/23 at 0900, Until Discontinued 0853 (Given - Provider: Loida Chakraborty RN) 0916 (Given - Provider: Avery Cote RN) 0912 (Given - Provider: Keara Burrell, ARLEEN) Losartan (COZAAR) tablet 50 mg 50 mg, Oral, EVERY 12 HOURS, First dose on Thu05/22/23 at 2130, Until Discontinued 0853 (Given - Provider: Loida Chakraborty RN)2223 (Given - Provider: Navya Kelsey RN) 0916 (Given - Provider: Avery Cote RN)2033 (Given - Provider: Benito Guerrero RN) 09 (Given - Provider: Keara Burrell RN) magnesium oxide (MAG-OX) tablet 400 mg (COMPLETED) 400 mg, Oral, ONCE, 1 dose, On Thu05/25/23 at 0800 09 (Given - Provider: Avery Cote RN) Magnesium sulfate 2 g/50 ml in sterile water premix IVPB 2 g 50 mL (total volume) 2 g, Intravenous, Administer over 4 Hours, DAILY, First dose on 05/23/23 at 0600, Until Discontinued, Give if magnesium is less than 2 on morning labs. Infuse at a rate of 0.5 gm/hour. 07 (Not Given - Provider: Masha Page RN - Reason: Order Parameters not met) 721 (Not Given - Provider: Karon Leach RN - Reason: Other - Comment: PO mg order) 648 (Not Given - Provider: Benito Guerrero RN - Reason: Order Parameters not met) Melatonin tablet 6 mg 6 mg, Oral, DAILY AT BEDTIME, First dose on Thu05/22/23 at 2130, Until Discontinued 2223 (Given - Provider: Navya Kelsey RN) 2033 (Given - Provider: Benito Guerrero RN) Pantoprazole (PROTONIX) tablet DR 40 mg 40 mg, Oral, DAILY, First dose on 05/23/23 at 0900, Until Discontinued, Do not crush., Indications: Inpt Stress Ulcer Prophylaxis 0853 (Given - Provider: Loida Chakraborty RN) 916 (Given - Provider: Avery Cote, RN) 09 (Given - Provider: Keara Burrell, RN) Polyethylene glycol (MIRALAX) packet 17 g 17 g, Oral, DAILY, First dose on 05/23/23 at 0900, Until Discontinued 0853 (Given - Provider: Loida Chakraborty RN) 0832 (Not Given - Provider: Avery Cote RN - Reason: Patient/family refused) 911 (Given - Provider: Keara Burrell RN) Potassium chloride (K-DUR) tablet ER 40 mEq(Linked Group 1) 40 mEq, Oral, DAILY, First dose on 05/23/23 at 0600, Until Discontinued, Give if potassium is 3.1 to 3.4 on morning labs and patient is able to tolerate oral medications Swallow tablets whole; do not crush, chew, or suck on tablet. Tablet may also be broken in half and each half swallowed separately. 0729 (Not Given - Provider: Masha Page RN - Reason: Order Parameters not met) 0916 (Given - Provider: Avery Cote RN) 0654 (Given - Provider: Benito Guerrero, ARLEEN) potassium chloride 40 mEq in 0.9% sodium chloride 500 ml IVPB(Linked Group 1) 40 mEq, Intravenous, at 125 mL/hr, Administer over 4 Hours, DAILY, First dose on Thu05/23/23 at 0600, Until Discontinued, Give if potassium is less than 3.1 on morning labs OR if potassium is 3.1 to 3.4 on morning labs and patient is UNABLE to tolerate oral medications 0729 (See Alternative - Provider: Masha Page RN) 09 (See Alternative - Provider: Avery Cote RN) 0654 (See Alternative - Provider: Benito Guerrero, RN) traZODone (DESYREL) tablet 300 mg 300 mg, Oral, DAILY AT BEDTIME, First dose (after last modification) on Thu05/24/23 at 2100, Until Discontinued 2223 (Given - Provider: Navya Kelsey, ARLEEN) 2033 (Given - Provider: Benito Guerrero, RN) PRN Medication Order 05/24/2023 05/25/2023 05/26/2023 Acetaminophen (TYLENOL) tablet 325-650 mg 325-650 mg, Oral, EVERY 4 HOURS NEEDED, Starting on Thu05/22/23 at 2122, Until Thu05/26/23 at 1920, Mild Pain, Maximum dose of acetaminophen is 4000 mg from all sources in 24 hours. 2042 (Given - Provider: Benito Guerrero, ARLEEN - Comment: Patient requests tylenol) ALPRAZolam (XANAX) tablet 1 mg 1 mg, Oral, 2 TIMES DAILY NEEDED, Starting on Thu05/22/23 at 2114, Until Thu05/26/23 at 1920, Anxiety 0324 (Given - Provider: Navya Kelsey, ARLEEN)2036 (Given - Provider: Benito Guerrero, RN) diphenhydrAMINE (BENADRYL) injection 25 mg 25 mg, Intravenous, EVERY 6 HOURS NEEDED, Starting on Thu05/22/23 at 2122, Until Thu05/26/23 at 1920, Itching, Sleep, Allergic Reaction (Swelling throat, tongue or lips, rash, difficulty breathing), Infusion Reaction hydrALAZINE (APRESOLINE) injection 10 mg 10 mg, Intravenous, EVERY 6 HOURS NEEDED, Starting on Thu05/22/23 at 2121, Until Thu05/26/23 at 1919, SBP > 180 mmHg hydroCODone-acetaminophen (NORCO) 5-325 MG per tablet 1 tablet (CANCELED) 1 tablet, Oral, EVERY 4 HOURS NEEDED, Starting on Thu05/22/23 at 2121, Until Thu05/24/23 at 1327, Severe Pain, Maximum dose of acetaminophen is 4000 mg from all sources in 24 hours. 0550 (Given - Provider: Katy Meier RN) Ipratropium-albuterol (DUONEB) 0.5-2.5 (3) MG/3ML nebulizer solution 3 mL 3 mL, Nebulization, EVERY 4 HOURS NEEDED, Starting on Thu05/22/23 at 2121, Until Thu05/26/23 at 1919, Shortness of Breath Labetalol (NORMODYNE) injection 20 mg 20 mg, Intravenous, EVERY 4 HOURS NEEDED, Starting on Thu05/22/23 at 2121, Until Thu05/26/23 at 1919, systolic blood pressure greater than 160, Administration duration: up to 20 mg over 2 minutes. lactulose (CHRONULAC) oral solution 20 g 20 g, Oral, EVERY 4 HOURS NEEDED, Starting on Thu05/22/23 at 2121, Until Thu05/26/23 at 192, Constipation 1st Line Ondansetron 4mg/2ml (ZOFRAN) injection 4 mg 4 mg, Intravenous, EVERY 4 HOURS NEEDED, Starting on Thu05/22/23 at 2121, Until Thu05/26/23 at 1919, Nausea / Vomiting Potassium phosphates 30 mmol in Sodium chloride 0.9%, with overfill 535 mL (total volume) IVPB 30 mmol, Intravenous, Administer over 6 Hours, DAILY NEEDED, Starting on Thu05/22/23 at 2121, Until Thu05/26/23 at 192, Other, If phospate <2.5, give 30mmol, Extravasation Risk SUMAtriptan (IMITREX) tablet 100 mg 100 mg, Oral, 2 TIMES DAILY NEEDED, Starting on Thu05/22/23 at 2117, Until Thu05/26/23 at 1920, Migraine, Max 200 mg/24 hr 1534 (Given - Provider: Masha Page RN) Tizanidine (ZANAFLEX) tablet 4 mg 4 mg, Oral, EVERY 8 HOURS NEEDED, Starting on Thu05/22/23 at 2114, Until Thu05/26/23 at 1920, Muscle spasms, Max: 36 mg/day Zolpidem (AMBIEN) tablet 10 mg 10 mg, Oral, DAILY AT BEDTIME NEEDED, Starting on Thu05/22/23 at 2156, Until Thu05/26/23 at 1920, Sleep Linked Groups Order Group 1: Potassium chloride (K-DUR) tablet ER 40 mEqJump to med 40 mEq, Oral, DAILY, First dose on 05/23/23 at 0600, Until Discontinued
Give if potassium is 3.1 to 3.4 on morning labs and patient is able to tolerate oral medications Swallow tablets whole; do not crush, chew, or suck on tablet. Tablet may also be broken in half and each half swallowed separately.
Or potassium chloride 40 mEq in 0.9% sodium chloride 500 ml IVPBJump to med 40 mEq, Intravenous, at 125 mL/hr, Administer over 4 Hours, DAILY, First dose on 05/23/23 at 0600, Until Discontinued
Give if potassium is less than 3.1 on morning labs OR if potassium is 3.1 to 3.4 on morning labs and patient is UNABLE to tolerate oral medications
Scheduled Medication Order 12/17/2023 12/18/2023 12/19/2023 iodixanol (VISIPAQUE) injection 320 mg/mL for [facility] IR 75 mL, Intravenous, ONCE, 1 dose, On 12/19/23 at 1830, Extravasation Risk, Radiology Procedure 1830 (Canceled Entry - Provider: System Discharge - Comment: Automatically canceled at discontinue of medication order) Sodium chloride 0.9% IV solution 1,000 mL 1,000 mL, Intravenous, ONCE, 1 dose, On 12/19/23 at 1730 1907 (Hold - Provide r: Jasmina Doll RN - Reason: Other - Comment: Unable to obtain IV access) Sodium chloride 0.9% IV solution 75 mL 75 mL, Intravenous, ONCE, 1 dose, On 12/19/23 at 1830, Radiology Procedure 1830 (Canceled Entry - Provider: System Discharge - Comment: Automatically canceled at discontinue of medication order) FOR RECORDS PERTAINING TO PATIENTS WHO ARE OR HAVE BEEN ENROLLED IN A CHEMICAL DEPENDENCY/SUBSTANCEABUSE PROGRAM, SOME INFORMATION MAY BE OMITTED. This clinical summary was aggregated from multiple sources. Caution should be exercised in using it in the provision of clinical care. This summary normalizes information from multiple sources, and as a consequence, information in this document may materially change the coding, format and clinical context of patient data. In addition, data may be omitted in some cases. CLINICAL DECISIONS SHOULD BE BASED ON THE PRIMARY CLINICAL RECORDS. [facility]. provides no warranty or guarantee of the accuracy or completeness of information in this document.
--- NOTE | 2024-07-10 19:16 | CT_ITS ---
STUDY: CT Spine Cervical W/O Contrast Injection 07/10/2024 8:57 PM REASON FOR EXAM: Female, 64 years old. NECK PAIN trauma HISTORY: NECK PAIN trauma TECHNIQUE: High resolution transaxial imaging was performed without intravenous administration of contrast material. Sagittal and coronal images were reconstructed. Individualized dose optimization techniques were used for this CT. COMPARISON: None FINDINGS: Normal craniovertebral junction. Normal anterior atlantoaxial articulation. Normal odontoid process. Normal cervical lordosis. Normal vertebral bodies and posterior osseous elements. C2-3: Normal endplates. Normal disc height and morphology. Normal central canal and intervertebral neuroforamina. C3-4: Loss of intervertebral disc height. There is endplate spondylosis of the vertebral body. Normal central canal and intervertebral neuroforamina. There is bilateral facet arthropathy. C4-5: Anterior fusion plate and fusion cage in place. Osseous fusion at this level. C5-6: Anterior fusion plate and fusion cage in place. Osseous fusion at this level. C6-7: Anterior fusion plate and fusion cage in place. Osseous fusion at this level. C7-T1: Loss of intervertebral disc height. There is endplate spondylosis of the vertebral body. Normal central canal and intervertebral neuroforamina. There is bilateral facet arthropathy. Normal visualized soft tissue structures. CT/Spine Cervical without Contras IMPRESSION: (NOT LISTED IN ORDER OF SIGNIFICANCE) Surgical fusion. Degenerative changes of the unfused vertebra. Electronically Signed: Adonay West MD at 20:59 EDT ,
--- NOTE | 2024-07-10 19:16 | CT_ITS ---
STUDY: CT BRAIN WITHOUT CONTRAST REASON FOR EXAM: Female, 64 years old. trauma Individualized dose optimization techniques were used for this CT. TECHNIQUE: Transaxial CT imaging of the brain was performed without administration of intravenous contrast material. COMPARISON: None FINDINGS: There are calcifications around the carotid artery. These are noted in the cavernous carotid arteries. There is hyperostosis frontalis internus. Normal soft tissues. There is a partially calcified mass along the Left extra-axial space. This is likely a meningioma. There is mild cerebral atrophy with widening of the extra-axial spaces and ventricular dilatation. There are areas of decreased attenuation within the white matter tracts of the supratentorial brain, consistent with microvascular disease changes. Normal basal ganglia and thalami. Normal brainstem. There is mild cerebellar atrophy. There is no intracranial hemorrhage. There are no findings of an acute ischemic infarction. Degenerative changes of the mandibular condyles. ASPECTS Score for Acute Strokes: 06/30 CT/Brain/Head without Contrast IMPRESSION: There are no acute findings. Chronic involutional changes of the brain. Electronically Signed: Adonay West MD at 20:41 EDT ,
--- NOTE | 2024-07-10 19:24 | EX.ED.DYSGE1 ---
HPI History of Present Illness Chief Complaint: Alt LOC Narrative Narrative: 64-year-old female brought in for altered mental status and not acting herself. She is status post fall in her yard. She relates history that she was outside getting her mail and fell in her grass. She complains of all over body pain. She arrives to the emergency department in a c-collar. She denies loss of consciousness. Her history and physical is limited secondary to altered mental status. According to her daughter who is her medical power of pasting machine offbearer, patient has had recent admission at psychiatric facility in [place]. After 3 days she signed herself out. She thinks that she is not taking her medications correctly and not acting herself. She states that she recently came off Xanax last month after being on it for years. At times, she states that she goes to [facility] where she can be manipulative, and receives pain medication, and then is discharged home. Patient has history of cirrhosis of the liver, but she does not drink alcohol any longer. Her daughter is very concerned about her behavior and that there are pictures of her rolling around in the grass with the dog outside. She states that patient's house is unkempt as well as the patient and she is not taking care of herself. She has had 40 pound weight gain recently as well. Daughter feels that she needs either medical help or psychiatric help. [facility] Medical History Chest pain Atherosclerotic heart disease of [place] coronary artery without angina pectoris Hepatitis C Essential hypertension Home Medications ?Medication ?Instructions ?Recorded ?Last Taken ?Type atorvastatin 40 mg tablet 40 mg PO DAILY 07/10/24 Unknown History diazepam 10 mg tablet 10 mg PO QHS PRN PRN anxiety 07/10/24 Unknown History eszopiclone 2 mg tablet 2 mg PO QHS PRN PRN . 07/10/24 Unknown History hydrochlorothiazide 25 mg tablet 25 mg PO DAILY 07/10/24 Unknown History propranolol 40 mg tablet 60 mg PO TID 07/10/24 Unknown History sulfamethoxazole 800 1 tab PO BID 07/10/24 Unknown History mg-trimethoprim 160 mg tablet trazodone 100 mg tablet 100 mg PO DAILY 07/10/24 Unknown History venlafaxine 75 mg capsule,extended 75 mg PO DAILY 07/10/24 Unknown History release 24 hr zolpidem 10 mg tablet 10 mg PO QHS PRN PRN sleep 07/10/24 Unknown History Allergy/AdvReac Type Severity Reaction Status Date / Time codeine Allergy Unknown Verified 07/10/24 18:06 latex Allergy Hives Verified 07/10/24 18:06 Penicillins Allergy Unknown Verified 07/10/24 18:06 Family History Father CAD (coronary artery disease) Myocardial infarction History of coronary artery bypass surgery Grandmother Cardiac pacemaker in situ Surgical History History of left heart catheterization (LHC) (~07/08/19) History of lumbar spinal fusion History of herniorrhaphy History of hysterectomy History of appendectomy History of cholecystectomy History of bariatric surgery Social History Smoking Status: Former smoker alcohol intake: current details: occasional substance use type: does not use caffeine: Yes Type: carbonated beverages Number of servings: 1 and coffee ROS ROS ED ROS Narrative Unable to obtain from patient's secondary to mental status change. Patient only complains of allover body pain. EXAM Physical Exam Narrative Exam Narrative: GCS 15. ABCs intact. Patient is awake mildly slow to respond, but alert and oriented to person place, and time. Cardiovascular examination reveals a regular rate and rhythm. Lungs are clear to auscultation bilaterally. Abdomen is soft, nontender, obese, with positive bowel sounds. She is able to flex and extend her bilateral knees and hips. Const Vital Signs: 07/10/24 17:56 07/10/24 18:56 07/10/24 19:00 Temperature 98.7 F Temperature Source Oral Pulse Rate 79 76 76 Respiratory Rate 18 12 12 Blood Pressure 84/68 L 127/94 H 127/94 H Blood Pressure Mean 73 105 105 Pulse Ox 96 95 95 Oxygen Delivery Method Room Air Room Air Room Air 07/10/24 20:00 07/10/24 21:00 07/10/24 22:00 Temperature Temperature Source Pulse Rate 75 74 73 Respiratory Rate 12 14 16 Blood Pressure 132/82 H 132/84 H 118/95 H Blood Pressure Mean 98 100 102 Pulse Ox 94 94 96 Oxygen Delivery Method Room Air Room Air Room Air 07/10/24 23:00 07/10/24 23:25 07/11/24 00:00 Temperature 98.2 F Temperature Source Pulse Rate 73 73 73 Respiratory Rate 13 12 13 Blood Pressure 116/94 H 125/100 H 128/114 H Blood Pressure Mean 101 108 118 Pulse Ox 95 95 95 Oxygen Delivery Method Room Air Room Air MDM MDM MDM Narrative Medical decision making narrative: Differential diagnosis includes but not limited to intracranial hemorrhage from her fall versus cervical fracture. She has generalized weakness and frequent falls so I will look for an infectious cause process such as pneumonia versus urinary tract infection. Her mental status change may be secondary to dehydration or other electrolyte imbalance including with her history of cirrhosis of the liver from alcohol use, hepatic encephalopathy. CT of the brain was obtained on review of the radiology report, there is no acute process, no hemorrhage. She has chronic white matter changes and a calcified mass consistent with meningioma. I do not think that this is the cause of her reported mental status change and generalized weakness. I reviewed her laboratory work and she has normal white count of 8.7, hemoglobin slightly hemoconcentrated at 15.1 with hematocrit 41.5, platelet count slightly low at 128. Potassium is low at 2.7 which was replaced orally with 60 mill equivalents given the normal saline shortage. BUN is slightly elevated at 20 with creatinine 1.38 consistent with acute kidney injury. Glucose is 95. AST slightly elevated at 38 with ALT of 31. Ammonia level is normal at 14 so I doubt hepatic encephalopathy. Urinalysis is negative for infection with 0-5 white cells and negative nitrites. I do not feel antibiotics are indicated. Urine for drugs of abuse is positive for benzodiazepines. Ethyl alcohol is negative at less than 3. CT of cervical spine radiology report reviewed and there is no evidence of acute fracture. She has degenerative changes and history of fusion. She was removed from the c-collar clinically. Chest x-ray in 1 view interpreted by myself independently shows no evidence of pneumonia or pneumothorax. I reviewed the radiology report which confirms my independent interpretation. Additionally, pelvis x-ray shows no evidence of fracture on my independent interpretation. I reviewed the radiology report which also confirms my independent interpretation. At this point in time, patient states she does not feel safe going home because she has had frequent falls over the last few weeks and generalized weakness. I feel she needs PT OT eval and she is agreeable for placement in rehab currently. I discussed patient with Dr. Fuller for admission to the PCU. Patient is in stable condition. History & Record Review Discussion w/independent historian: Patient and Family Lab Data Attestation: I reviewed the patient's lab results. Labs: Laboratory Results - last 24 hr 07/10/24 07/10/24 20:45 21:35 WBC 8.7 RBC 4.49 Hgb 15.1 H Hct 41.5 MCV 92.4 MCH 33.6 H MCHC 36.4 H RDW Std Deviation 56.1 H RDW Coeff of Xavier 16.7 H Plt Count 128 L MPV 11.6 Immature Gran % (Auto) 0.300 Neut % (Auto) 75.6 H Lymph % (Auto) 17.3 L [place] % (Auto) 5.4 Eos % (Auto) 0.9 Baso % (Auto) 0.5 Absolute Neuts (auto) 6.6 Absolute Lymphs (auto) 1.50 Nucleated RBC % 0 Sodium 137 Potassium 2.7 L* Chloride 99 Carbon Dioxide 26.0 Anion Gap 12 BUN 20 H Creatinine 1.38 H Estim Creat Clear Calc 50.54 Est GFR (MDRD) Af Amer 50 L Est GFR (MDRD) Non-Af 41 L BUN/Creatinine Ratio 14.5 Glucose 95 Calcium 9.6 Magnesium 2.3 Total Bilirubin 2.10 H AST 38 H ALT 31 Alkaline Phosphatase 92 Ammonia 14.0 Total Protein 6.8 Albumin 3.8 Globulin 3.0 Albumin/Globulin Ratio 1.3 Urine Color Yellow Urine Clarity Cloudy Urine pH 7.0 Ur Specific Barney 1.010 Urine Protein 15 H Urine Glucose (UA) Normal Urine Ketones 15 H Urine Occult Blood Negative Urine Nitrite Negative Urine Bilirubin 1 H Urine Urobilinogen 4 H Ur Leukocyte Esterase 25 H Urine RBC 0 SEEN Urine WBC 0-5 SEEN Ur Squamous Epith Cells 0-5 SEEN Amorphous Sediment 2+ Urine Bacteria 1+ Urine Mucus 0 SEEN Urine Opiates Screen NEGATIVE Urine Methadone Screen NEGATIVE Ur Barbiturates Screen NEGATIVE Ur Phencyclidine Scrn NEGATIVE Ur Amphetamines Screen NEGATIVE MDMA (Ecstasy) Screen NEGATIVE U Benzodiazepines Scrn POSITIVE H Urine Cocaine Screen NEGATIVE U Cannabinoids Screen NEGATIVE Ur Drug Screen Comment Ethyl Alcohol < 3.0 Radiography Diagnostic Testing: Clinical Impression(s) from Imaging Studies Brain CT 07/10/24 19:16 IMPRESSION: There are no acute findings. Chronic involutional changes of the brain. Electronically Signed: Adonay West MD at 20:41 EDT , Cervical Spine CT 07/10/24 19:16 IMPRESSION: (NOT LISTED IN ORDER OF SIGNIFICANCE) Surgical fusion. Degenerative changes of the unfused vertebra. Electronically Signed: Adonay West MD at 20:59 EDT , Pelvis X-Ray 07/10/24 19:27 IMPRESSION: No evidence of displaced pelvic fracture. Electronically Signed: Adonay West MD at 20:39 EDT , Chest X-Ray 07/10/24 20:00 IMPRESSION: There are no acute findings. Electronically Signed: Adonay West MD at 20:40 EDT , Management Discussion w/another healthcare provider: Hospitalist Discharge Plan Triage Chief Complaint: Alt LOC ED Provider: Chas Modi Dx/Rx/DC Orders Clinical Impression: Generalized weakness, Frequent falls, Hypokalemia, Acute kidney injury Primary Care Provider: Meagan Sylvester
--- NOTE | 2024-07-10 19:27 | RAD_ITS ---
EXAM: XR PELVIS, 1 OR 2 VIEWS CLINICAL INDICATION: trauma TECHNIQUE: Frontal view of the pelvis. COMPARISON: No relevant prior studies available. FINDINGS: BONES/JOINTS: Unremarkable. No displaced fracture. No destructive or sclerotic lesions. Note that overlapping bowel shadows may however obscure fine detail. Sacroiliac joints are unremarkable. No widening of the pubic symphysis. The articular structures are unremarkable. SOFT TISSUES: Unremarkable. No soft tissue swelling or gas. RAD/Pelvis 1 or 2 Views IMPRESSION: No evidence of displaced pelvic fracture. Electronically Signed: Adonay West MD at 20:39 EDT ,
--- NOTE | 2024-07-10 20:00 | RAD_ITS ---
STUDY: XR Chest 1 View 07/10/2024 8:01 PM REASON FOR EXAM: Female, 64 years old. trauma COMPARISON: None TECHNIQUE: XR Chest 1 View FINDINGS: There is no demonstrated pleural abnormality. Normal heart size. Normal mediastinum. Normal danuta. Prominent appearing increased interstitial lung markings. Normal visualized pulmonary arteries. There is atherosclerotic calcification of the aortic arch with tortuosity. There are diffuse degenerative changes of the visualized thoracic spine. There is degenerative osteoarthritis of the bilateral shoulders. There are no acute findings of the upper abdomen. RAD/Chest 1 View (Portable) IMPRESSION: There are no acute findings. Electronically Signed: Adonay West MD at 20:40 EDT ,
[2024-07-10 20:56] LABS: Absolute Neutrophil Count 6.6 X10^3/uL (2.0-7.7); Basophil# 0.04 X10^3/uL; Basophil% 0.5 % (0-1); Eosinophil# 0.08 X10^3/uL; Eosinophils% 0.9 % (0-5); Hematocrit 41.5 % (37-47); Hemoglobin 15.1 g/dL (12.0-15.0); Lymphocyte % 17.3 % (19-41); Mean Corp Hgb Conc 36.4 g/dL (32-36); Mean Corpuscular Hgb 33.6 pg (27.0-32.0); Mean Corpuscular Volume 92.4 fL (81-99); Mean Platelet Vol. 11.6 fl (6.2-12.0); Monocyte# 0.47 X10^3/uL; Monocyte% 5.4 % (0-10); NRBC Flagged by Analyzer 0 % (0-5); Neutrophil # 6.57 X10^3/uL (2.7-7.7); Neutrophil % 75.6 % (47-70); Platelet Count 128 K/mm3 (150-450); RBC Distribution Width CV 16.7 % (11.6-14.6); RBC Distribution Width SD 56.1 fl (35.1-43.9); Red Blood Count 4.49 M/mm3 (4.2-5.4); White Blood Count 8.7 K/mm3 (4.4-11.0)
[2024-07-10 20:57] LABS: POSITIVE COUNT NO; POSITIVE DIFFERENTIAL NO; POSITIVE MORPHOLOGY NO
[2024-07-10 21:07] LABS: Alcohol, Blood (Medical)-Serum < 3.0 mg/dL
--- NOTE | 2024-07-10 21:20 | CM.ED ---
Social Work: Date of referral: 07/10/2024 Reason for referral: Altered Mental Status Referred by: Social Work Identification Patient provided consent to social work visit. Also present was patient's daughter/SHELLIE Chan as well as Rocio's friend/co-worker. Patient reported she's been having increased falls and has been overall declining in health and overall levels of functioning for about the past year. Rocio indicated patient isn't caring for herself including bathing, taking medication as ordered and/or leaving her home. Rocio stated patient lives in a [place] and Rocio's twin sister lives on the other side however doesn't appear to have a lot of oversight with patient. Rocio confirmed that patient gets food delivered to her home however patient doesn't cook. When asked, patient reported she hasn't had anything to eat today and the only thing patient had yesterday was a brat. Rocio reported patient isn't taking her medication as it's prescribed and is taking more than what she should be which could be resulting in increased falls. Rocio reported there was urine and feces on the floor due to patient not always taking the dog out however patient spoke up and stated the urine and feces is from a neighbor which Rocio stated she mehran look into. Patient was tearful and cried throughout the visit and stated she is lonely and would like for her daughters to come visit her more often. Rocio reported that patient has been allegedly seeking out a roommate from [employer]. Soy[employer] Grower provided safety education. Rocio described patient as paranoid and scared. bridge ironworker reviewed various options once patient is determined to be stable such as Adult Day Services, Home Health Aid who can assist with housekeeping, meal prep and bathing, talked with patient about an Emergency Response with a fall detector sensor and a medication management dispenser with an alarm. bridge ironworker also talked about Assisted Living facilities which patient stated she was not interested in at this time. Resources declined at this time and patient will wait to get all results back from doctor to help determine next steps. bridge ironworker to have social worker psychiatric food service supervisor make a referral to [facility] due to self-neglect. Vaishnavi Jones, SCRATCH FINISHER, WILL CALL ORDER CLERK
[2024-07-10 21:25] LABS: ALB/GLOB Ratio 1.3 RATIO (0.9-2.4); AST(SGOT) 38 U/L (15-37); Alanine Aminotransfer ALT/SGPT 31 U/L (13-56); Albumin, Serum 3.8 g/dL (3.2-5.0); Alkaline Phosphatase 92 U/L (45-117); Anion Gap 12 (5-15); BUN 20 mg/dL (7-18); BUN/Creat Ratio 14.5 RATIO (10-20); Calcium,Total 9.6 mg/dL (8.5-10.1); Chloride 99 mmol/L (98-107); Creatinine, Serum 1.38 mg/dL (0.55-1.02); EST Glomerular Filtration Rate 41 mL/min (>60); Est Glom Filt Rate - Afr Amer 50 mL/min (>60); Estimated Creatinine Clearance 50.54 ml/min; Glucose 95 mg/dL (74-106); Potassium 2.7 mmol/L (3.5-5.1); Protein, Total 6.8 g/dL (6.4-8.2); Sodium Level 137 mmol/L (136-145)
[2024-07-10 21:42] LABS: Mucous, Urine 0 SEEN /hpf (<or=2+); Red Blood Cells-Urine 0 SEEN /hpf (0-5)
[2024-07-10 21:57] LABS: Color, Urine Yellow (Yellow); Glucose, Dipstick Normal (Normal); Ketone-Dipstick 15 mg/dl (Negative); Leukocyte Esterase-Dipstick 25 /ul (Negative); Nitrite-Dipstick Negative (Negative); Occult Blood-Urine Negative /ul (Negative); Protein-Dipstick 15 mg/dl (Negative); Urine Clarity Cloudy (Clear); Urine Urobilinogen 4 mg/dl (Normal)
[2024-07-10 21:58] LABS: Urine Bilirubin Dipstick 1 mg/dL (Negative)
[2024-07-10 22:00] LABS: Amorphous Sediment 2+
[2024-07-10 22:01] LABS: Bacteria 1+ /hpf (None Seen); Squamous Epithelial Cells - UA 0-5 SEEN /hpf (5-10); White Blood Cells 0-5 SEEN /hpf (0-5)
[2024-07-10 22:13] LABS: Amphetamine Urine VISTA NEGATIVE (<1000 ng/mL); Barbiturate Urine VISTA NEGATIVE (< 200 ng/mL); Benzodiazepine Urine VISTA POSITIVE (< 200 ng/mL); Cocaine Urine VISTA NEGATIVE (< 300 ng/mL); Ecstacy Urine VISTA NEGATIVE (< 500 ng/mL); Methadone Urine VISTA NEGATIVE (< 300 ng/mL); PCP Urine VISTA NEGATIVE (< 25 ng/mL); THC Urine VISTA NEGATIVE (< 50 ng/mL); Vista UDS pH Range 7
[2024-07-10] MEDS: Potassium Chloride Oral Tablet 20 MEQ 60 MEQ PO (22:17)
[2024-07-10 22:43] LABS: Magnesium 2.3 mg/dL (1.6-2.6)
--- NOTE | 2024-07-10 23:34 | HP.PCM.HOS_ITS ---
HPI - General General Date of Admission: 07/11/24 Date of Service: 07/10/24 Chief Complaint: AMS with Fall in Yard. HPI Narrative MICHELINE CLEARY, is a 64 F with a past medical history of essential hypertension, hyperlipidemia, obesity; with BMI of 39 this admission, history of bariatric surgery, history of EtOH Abuse; with subsequent cirrhosis, chronic hepatitis C; s/p treatment (2016), history of CAD; with previous [facility] (2019), depression with anxiety; on eszopiclone and diazepam, chronic insomnia; on Zolpidem, history of appendectomy, history of cholecystectomy, history of hysterectomy, history of hernia repair x 2, OA; with history of lumbar spinal fusion and subsequent chronic pain and recent admission to a psychiatric facility in [place], [place] - where she subsequently signed herself out after ~3 days who presents to [facility] ER complaining of altered mental status with fall in yard. Ms. Cleary is not a fully-reliable historian at this time so information was gathered from chart, medical staff and computer. According to the records she was outside getting her mail when she lost her balance and fell in the grass. EMS was activated and they placed her in a C- collar. She denies LOC and she also denies current EtOH use. He daughter informed the ER physician that she does not think she is taking her medications as prescribed because she has not been acting like herself and her house is unkempt because she can no longer care for it or herself - so the family is seeking for ECF placement. Her daughter also reported a recent unintentional ~40 pound weight gain but there is no report of fever, chills, nausea, vomiting, diarrhea, constipation, chest pain or SOB. In the ER she was noted to have laboratory evidence of severe hypokalemia of 2.7 mmol/L present on admission complicated by hyperbilirubinemia of 2.1 mg/dL present on admission with a UDS positive for benzodiazepines with suspected superimposed hepatic encephalopathy and she was then admitted to the PCU for ongoing care for a stay that is expected to extend beyond 2 midnights. [facility] Medical History Chest pain Atherosclerotic heart disease of [place] coronary artery without angina pectoris Hepatitis C Essential hypertension Home Medications ?Medication ?Instructions ?Recorded ?Last Taken ?Type atorvastatin 40 mg tablet 40 mg PO DAILY 07/10/24 Unknown History diazepam 10 mg tablet 10 mg PO QHS PRN PRN anxiety 07/10/24 Unknown History eszopiclone 2 mg tablet 2 mg PO QHS PRN PRN . 07/10/24 Unknown History hydrochlorothiazide 25 mg tablet 25 mg PO DAILY 07/10/24 Unknown History propranolol 40 mg tablet 60 mg PO TID 07/10/24 Unknown History sulfamethoxazole 800 1 tab PO BID 07/10/24 Unknown History mg-trimethoprim 160 mg tablet trazodone 100 mg tablet 100 mg PO DAILY 07/10/24 Unknown History venlafaxine 75 mg capsule,extended 75 mg PO DAILY 07/10/24 Unknown History release 24 hr zolpidem 10 mg tablet 10 mg PO QHS PRN PRN sleep 07/10/24 Unknown History Allergy/AdvReac Type Severity Reaction Status Date / Time codeine Allergy Unknown Verified 07/10/24 18:06 latex Allergy Hives Verified 07/10/24 18:06 Penicillins Allergy Unknown Verified 07/10/24 18:06 Family History Father CAD (coronary artery disease) Myocardial infarction History of coronary artery bypass surgery Grandmother Cardiac pacemaker in situ Surgical History History of left heart catheterization (LHC) (~07/08/19) History of lumbar spinal fusion History of herniorrhaphy History of hysterectomy History of appendectomy History of cholecystectomy History of bariatric surgery Social History Smoking Status: Former smoker alcohol intake: current details: occasional substance use type: does not use caffeine: Yes Type: carbonated beverages Number of servings: 1 and coffee ROS ROS Narrative Full review of systems was not possible due to patient confusion. Vital Signs Vital Signs Vital Signs: 07/10/24 17:56 07/10/24 18:56 07/10/24 19:00 Temperature 98.7 F Temperature Source Oral Pulse Rate 79 76 76 Respiratory Rate 18 12 12 Blood Pressure 84/68 L 127/94 H 127/94 H Blood Pressure Mean 73 105 105 Pulse Ox 96 95 95 Oxygen Delivery Method Room Air Room Air Room Air 07/10/24 20:00 07/10/24 21:00 07/10/24 22:00 Temperature Temperature Source Pulse Rate 75 74 73 Respiratory Rate 12 14 16 Blood Pressure 132/82 H 132/84 H 118/95 H Blood Pressure Mean 98 100 102 Pulse Ox 94 94 96 Oxygen Delivery Method Room Air Room Air Room Air 07/10/24 23:00 07/10/24 23:25 Temperature 98.2 F Temperature Source Pulse Rate 73 73 Respiratory Rate 13 12 Blood Pressure 116/94 H 125/100 H Blood Pressure Mean 101 108 Pulse Ox 95 95 Oxygen Delivery Method Room Air Weight Weight: 234 lb 6.4 oz Body Mass Index (BMI) 38.9 Physical Exam Const alert and no apparent distress Constitutional Narrative: Patient is obese and appears unkempt and chronically ill. General Appearance: cooperative Orientation / Consciousness: confused HEENT normocephalic, head/scalp atraumatic and hearing grossly normal bilaterally HEENT Narrative: Mucous membranes dry. Eyes PERRL and EOMs intact bilaterally Neck no lymphadenopathy and supple Resp normal respiratory effort, no retractions, no use of accessory muscles and clear to auscultation bilaterally Cardio regular rate and regular rhythm GI normal to inspection, nondistended, normoactive bowel sounds, soft to palpation, non-tender and non-distended GI Narrative: Obese. Extremity normal to inspection, full ROM and no clubbing, cyanosis or edema Skin Skin Narrative: Patient has no evidence of rash, wounds or jaundice. Neuro CN's II-XII intact bilaterally, moves all extremities and no focal motor deficits Sensorium / Orientation: awake, alert, oriented to person and oriented to place Speech: speech normal Psych Mood & Affect: depressed and anxious Results Medical Records Data Attestation: I reviewed the patient's medical records Lab / Micro Data Attestation: I reviewed the patient's lab results. 07/10/24 20:45 07/10/24 20:45 Labs: Laboratory Results - last 24 hr 07/10/24 20:45: WBC 8.7, RBC 4.49, Hgb 15.1 H, Hct 41.5, MCV 92.4, MCH 33.6 H, M CHC 36.4 H, RDW Std Deviation 56.1 H, RDW Coeff of Xavier 16.7 H, Plt Count 128 L, MPV 11.6, Immature Gran % (Auto) 0.300, Neut % (Auto) 75.6 H, Lymph % (Auto) 17.3 L, [place] % (Auto) 5.4, Eos % (Auto) 0.9, Baso % (Auto) 0.5, Absolute Neuts (auto) 6.6, Absolute Lymphs (auto) 1.50, Nucleated RBC % 0, Sodium 137, P otassium 2.7 L*, Chloride 99, Carbon Dioxide 26.0, Anion Gap 12, BUN 20 H, C reatinine 1.38 H, Estim Creat Clear Calc 50.54, Est GFR (MDRD) Af Amer 50 L, Est GFR (MDRD) Non-Af 41 L, BUN/Creatinine Ratio 14.5, Glucose 95, Calcium 9.6, Magnesium 2.3, Total Bilirubin 2.10 H, AST 38 H, ALT 31, Alkaline Phosphatase 92, Ammonia 14.0, Total Protein 6.8, Albumin 3.8, Globulin 3.0, Albumin/Globulin Ratio 1.3, Ethyl Alcohol < 3.0 07/10/24 21:35: Urine Color Yellow, Urine Clarity Cloudy, Urine pH 7.0, Ur Specific [place] 1.010, Urine Protein 15 H, Urine Glucose (UA) Normal, Urine Ketones 15 H, Urine Occult Blood Negative, Urine Nitrite Negative, Urine Bilirubin 1 H, Urine Urobilinogen 4 H, Ur Leukocyte Esterase 25 H, Urine RBC 0 SEEN, Urine WBC 0-5 SEEN, Ur Squamous Epith Cells 0-5 SEEN, Amorphous Sediment 2+, Urine Bacteria 1+, Urine Mucus 0 SEEN, Urine Opiates Screen NEGATIVE, Urine Methadone Screen NEGATIVE, Ur Barbiturates Screen NEGATIVE, Ur Phencyclidine Scrn NEGATIVE, Ur Amphetamines Screen NEGATIVE, MDMA (Ecstasy) Screen NEGATIVE, U Benzodiazepines Scrn POSITIVE H, Urine Cocaine Screen NEGATIVE, U Cannabinoids Screen NEGATIVE, Ur Drug Screen Comment Imaging Radiology Impression Brain CT 07/10/24 19:16 IMPRESSION: There are no acute findings. Chronic involutional changes of the brain. Electronically Signed: Adonay West MD at 20:41 EDT Reading Location ID and State: [facility] / [place] , Service support , Cervical Spine CT 07/10/24 19:16 IMPRESSION: (NOT LISTED IN ORDER OF SIGNIFICANCE) Surgical fusion. Degenerative changes of the unfused vertebra. Electronically Signed: Adonay West MD at 20:59 EDT , Pelvis X-Ray 07/10/24 19:27 IMPRESSION: No evidence of displaced pelvic fracture. Electronically Signed: Adonay West MD at 20:39 EDT , Chest X-Ray 07/10/24 20:00 IMPRESSION: There are no acute findings. Electronically Signed: Adonay West MD at 20:40 EDT , Assessment & Plan Assessment/Plan (1) Hypokalemia: (2) Altered mental status: QUALIFIERS: Altered mental status type: delirium Qualified Code(s): R41.0 - Disorientation, unspecified (3) Dehydration: (4) Generalized weakness: (5) Obesity (BMI 30-39.9): (6) Sleep apnea: QUALIFIERS: Sleep apnea type: unspecified type Qualified Code(s): G47.30 - Sleep apnea, unspecified (7) History of cirrhosis: (8) Chronic insomnia: PLAN: Plan 1. Severe hypokalemia of 2.7 mmol/L present on admission - Admit to PCU. Give supplemental IV and oral KCl and then recheck level in AM to confirm repletion. 2. Altered mental status with urine drug screen positive for benzodiazepines used to treat depression with anxiety; on eszopiclone and diazepam complicating #1 - Minimize benzodiazepines and other potentially LACING OPERATOR-active medications and monitor for improvement. Check B12 and Folate levels. 3. History of chronic alcohol abuse; with subsequent cirrhosis and chronic hepatitis C with hyperbilirubinemia of 2.1 mg/dL present on admission compounding #1 & #2 - Noted. Check ammonia level and also check HARMEET. Recheck CMP daily to follow trend. 4. Chronic insomnia; on Zolpidem adding to the medical complexity of #1 - #3 - Hold this agent, replace with Melatonin and then monitor for improvement. 5. Suspected mild dehydration with elevated serum creatinine of 1.38 mg/dL present on admission (up from her baseline of 0.77 mg/dL last admission) - Hold HCTZ and volume resuscitate and then recheck renal indices in the AM to confirm improvement. 6. Recent admission to a psychiatric facility in [place], [place] - where she subsequently signed herself out after ~3 days adding to the medical complexity of #1 - #5 - Noted. 7. Folate deficiency of 1.8 ng/mL present on admission - Start Folate 1 mg IV daily. 8. Obesity; with BMI of 39 this admission in spite of a history of bariatric surgery with a recent unintentional ~40 pound weight gain - Weight loss will be recommended. Check TSH. This complicates her case and may hamper her recovery. 9. Essential hypertension - Restart home regimen plus give prn IV hydralazine for systolic blood pressure > 160 mmHg. 10. Hyperlipidemia - Continue statin as before. 11. History of CAD; with previous [facility] (2019) - Noted. 12. History of appendectomy - Noted. 13. History of cholecystectomy - Noted. 14. History of hysterectomy - Noted. 15. History of hernia repair x 2 - Noted. 16. OA; with history of lumbar spinal fusion and subsequent chronic pain - Noted. Give Tylenol prn. 17. DVT prophylaxis - Lovenox 40 mg sq daily plus SCD's. Total time: Approximately 75 minutes. Charges/Coding Visit Charges Inpatient E&M: 73004 Init Hosp L3
[2024-07-11] VITALS: BP 128/114; PULSE 73; RESP 13; O2SAT 95
--- OUTSIDE RECORDS SUMMARY | 2024-07-11 00:15 | XMS RPT_ITS | CCD ---
Author Organization [facility] Care Team Providers Care Leasing Director Name Role Phone Leticia Sylvester Unavailable Unavailable Yousuf, Sondra S Unavailable Unavailable Yousuf, Sondra S Unavailable Unavailable Higinio Nyan Unavailable Unavailable Higinio Nyan Unavailable Unavailable Lucille, Valentino J Unavailable Unavailable Lucille, Valentino J Unavailable Unavailable Charles Russell Unavailable Unavailable Charles Russell Unavailable Unavailable Adam Russ Unavailable Unavailable Adam Russ Unavailable Unavailable Higinio Sdsukumar Primary Care Provider Higinio Sdsukumar Primary Care Provider [phone] HIGINIO [facility] Primary Care Unavailable DIGNA ENRIQUEZ Referring Unavaila ble DIGNA ENRIQUEZ Admitting Unavaila ble Higinio Sdsukumar Primary Care Provider Digna Enriquez Unavailable Higinio CHUNG Sdsukumar Primary Care Provider Digna Enriquez DPM Unavailable Digna Enriquez DPM Unavailable CODY ANDERSONE Tanesha Referring Unavailable SHIRIMAGABOALIE N Attending Unavailable [facility] Primary Care Unavailable SELF, SELF Referring Unavailable RICERUSSELLLISA N Attending Unavailable [facility] Primary Care Unavailable SELF, SELF Referring Unavailable RICE, LSIA N Attending Unavailable [facility] Primary Care Unavailable [facility], [facility] Primary Care Unavailable SELF, SELF Referring Unavailable SHIRIMA, DAMALIE N Attending Unavailable [facility] Primary Care Unavailable [facility], VTAN Referring Unavailable SHIRIMA, DAMALIE N Attending Unavailable [facility] Primary Care Unavailable SHIRIMA, DAMALIE N Attending Unavailable NORIA, MARINE Referring Unavailable [facility] Primary Care Unavailable RICE, LISA N Referring Unavailable RICE, LISA N Attending Unavailable [facility], [facility] Referring Unavailable PUMPER, NESHA L Attending Unavailable [facility], [facility] Primary Care Unavailable [facility], [facility] Primary Care Unavailable RICE, LISA N Referring Unavailable MEIR GASPAR Attending Unavailable SELF, SELF Referring Unavailable SHIRIMA, DAMALIE N Attending Unavailable [facility], [facility] Primary Care Unavailable [facility], [facility] Referring Unavailable SHIRIMA, DAMALIE N Attending Unavailable [facility], [facility] Primary Care Unavailable SELF, SELF Referring Unavailable SHIRIMA, DAMALIE N Attending Unavailable [facility], [facility] Primary Care Unavailable PUMPER, NESHA L Attending Unavailable [facility], [facility] Primary Care Unavailable RICE, LISA N Referring Unavailable SELF, SELF Referring Unavailable [facility], [facility] Primary Care Unavailable RICE, LISA N Attending Unavailable Higinio CHUNG, [facility] Primary Care Provider Terrence CHUNG, Lupillo Unavailable Yanet [employer], Jaime Unavailable [facility] Care Provider Terrence CHUNG, Lupillo Unavailable Yanet CHIEF RADIOLOGIC TECHNOLOGIST-SAMPLE DISTRIBUTOR, Jaime Unavailable Robert [facility], Eusebia [facility]available [facility] Yanna CHUNG, Ishaan Unavailable [facility] Primary Care Unavailable JUDY GEORGE Attending Unavailable MIN SOUSA Attending Unavailab le [facility] Primary Care Unavailable [facility] Provider [facility] Primary Care Unavailable ELI MORATAYA Referring Unavailable Terrence CHUNG, Lupillo Unavailable Yanet [employer], Jaime Unavailable [phone] [facility] Care Provider [phone] Robert [employer]RI[employer]OR, Eusebia Unavailable [facility] Care Provider CAROL ANN VICENTE Attending Unavailable [facility] Primary Care Unavailable SELF, SELF Referring Unavailable CAROL ANN VICENTE Referring Unavailable WIN, [facility] Primary Care Unavailable CAROL ANN VICENTE Attending Unavailable CALVIN PIMENTEL Admitting Unavailable CRISTIANO BEE Attending Unavailable [facility], [facility] Primary Care Unavailable WIN, [facility] Primary Care Unavailable WIN, [facility] Primary Care Unavailable Linwood DO, Eduardo S Primary Care Provider [phone] PROVIDER, UNKNOWN Admitting Unavailable PROVIDER, UNKNOWN Attending Unavailable JAIME CARTER Referring Unavailable [facility], [facility] Primary Care Unavailable PROVIDER, UNKNOWN Admitting Unavailable JAIME CARTER Attending Unavailable WIN, VTAN Primary Care Unavailable PROVIDER, UNKNOWN Admitting Unavailable PROVIDER, UNKNOWN Attending Unavailable WIN, [facility] Primary Care Unavailable PROVIDER, UNKNOWN Attending Unavailable GILLER, JAIME Referring Unavailable WIN, VTSUKUMAR Primary Care Unavailable PROVIDER, UNKNOWN Admitting Unavailable ROYAL, EDUARDO S Primary Care Unavailable ROYAL, EDUARDO S Attending Unavailable ROYAL, EDUARDO S Primary Care Unavailable ROYAL, EDUARDO S Referring Unavailable ROYAL, EDUARDO S Primary Care Unavailable [facility], VTS[facility]UMAR Primary Care Unavailable MARJAN CHARLES Attending Unavailable [facility], [facility] Primary Care Unavailable SOHAM SIFUENTES Attending Unavailable SYSTEM, PROVIDER NOT IN Referring Unavaila ble WIN, VTSUKUMAR Primary Care Unavailable Allergies Allergy Classification Reported Allergen(s) Allergy Type Date of Onset Reaction(s) Facility Latex (5 sources) Latex; Translations: [LATEX] Substance Allergy 9 Rash, Hives [facility] Opioid Agonists (9 sources) Codeine; Translations: [CODEINE] Drug Allergy 1 Hives, Itching [facility] Penicillins (antibiotic) (6 sources) Penicillin; Translations: [PENICILLINS] Drug Allergy 6 Itching, Rash, Hives [facility] (20 sources) codeine; Translations: [CODEINE] Propensity to adverse reactions to drug 1 Hives [facility] (20 sources) fentaNYL; Translations: [FENTANYL] Propensity to adverse reactions to drug 0 Itching [facility] (20 sources) Latex; Translations: [LATEX] Propensity to adverse reactions to drug 9 Rash, Hives [facility] (20 sources) penicillin; Translations: [PENICILLIN] Propensity to adverse reactions to drug 6 Itching, Rash [facility] (7 sources) Ct: Iodinated Contrast- Oral And Iv Dye; Translations: [CT: IODINATED CONTRAST- ORAL AND IV DYE] Propensity to adverse reactions to drug 2 Hives, Itching [facility] (20 sources) Penicillins; Translations: [PENICILLINS] Propensity to adverse reactions to drug 6 Hives, Itching, Rash [facility] (20 sources) Penicillin G; Translations: [PENICILLIN G POTASSIUM] Drug Allergy 6 [facility] Work Phone: (20 sources) Latex Propensity to adverse reactions to drug 5 Hives, Rash [facility] (5 sources) Ketorolac Drug Allergy 2 Hives, Pain [facility] (6 sources) Ketorolac; Translations: [KETOROLAC] Drug Allergy 3 Hives, Other (See Comments) [facility] (3 sources) Ketorolac trometamol Propensity to adverse reactions to drug 2 Hives, Pain [facility] Medications Current Medications Medication Drug Class(es) Dates Sig (Normalized) Sig (Original) acetaminophen 300 mg / codeine phosphate 30 mg oral tablet (20 sources) Opioid Agonist Start: 06-02-2007 TYLENOL/CODEINE #3 300-30 MG OR TABS 1 OR 2 TABLETS EVERY 4 TO 6 HOURS NEEDED FOR PAIN 28 0 06/02/2007 Active [id number] 200 actuat albuterol 0.09 mg/actuat metered dose [...] 10-30-2008 take 2 tablets by mo [facility] once daily in the morning furosemide (LASIX) [...] 12-01-2020 nystatin (MYCOSTATIN) powder polyethylene glycol 3350 423019 mg / potassium chloride 2970 mg / sodium bicarbonate 6740 mg / sodium chloride 5860 mg / sodium sulfate 15882 mg powder for oral solution (1 source) [...] LIPID MICROSPHERE 1.3 ML/8.7ML polyethylene glycol 3350 33813 mg powder for oral solution (1 source) [...] heart disease (20 sources) Coronary arteriosclerosis in [place] artery; Translations: [Coronary arteriosclerosis] Onset: 9 06-23-2019 [...] 2 09-02-2022 Unclassified (1 source) [place] [facility] App[facility] Review Required; Translations: [[place] [facility]ocks[facility] Apprentice Review Required] Onset: 3 Urinary tract infections [...] (20 sources) Patient encounter status; Translations: [Other longterm (current) drug therapy] Onset: 10-06-2006 10-06-2006 Episodic [...] 02-26-2024 02-26-2024 Unclassified (1 source) [place] [facility] App[facility]ice Review Required; Translations: [[place] [facility] 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 Comment on above: Performed By: #### [id number] #### [facility] [address], [place] [address] Ramakrishna Browne M.D. [id number] BASIC METABOLIC PANELon Anion gap [Moles/Vol] 16 mmol/L Normal - [facility] Comment on above: Order Comment: [facility] has implemented the eGFR calculation approach that does not have a coefficient for race that conforms to the NKF-ASN Task Force Recommendations. Performed By: #### [id number] #### [facility] [address], [place] [address] Ramakrishna Browne M.D. [id number] Calcium [Mass/Vol] 9.0 mg/dL Normal 8.4-10.2 [facility] Comment on above: Order Comment: [facility] has implemented the eGFR calculation approach that does not have a coefficient for race that conforms to the NKF-ASN Task Force Recommendations. Performed By: #### 4 [id number] #### LAB [address], [place] [address] Ramakrishna Browne M.D. [id number] Chloride [Moles/Vol] 97 mmol/L Low 98-108 [facility] Comment on above: Order Comment: [facility] has implemented the eGFR calculation approach that does not have a coefficient for race that conforms to the NKF-ASN Task Force Recommendations. Performed By: #### 4 [id number] #### LAB [address] [place] [address] Ramakrishna Browne M.D. [id number] Creatinine [Mass/Vol] 1.09 mg/dL Normal 0.60-1.10 [facility] Comment on above: Order Comment: [facility] has implemented the eGFR calculation approach that does not have a coefficient for race that conforms to the NKF-ASN Task Force Recommendations. Performed By: #### 4 [id number] #### LAB [address] [place] [address] Ramakrishna Browne M.D. [id number] EGFR 57 mL/min/1.73 m2 Low >=60 [facility] Comment on above: Order Comment: [facility] has implemented the eGFR calculation approach that does not have a coefficient for race that conforms to the NKF-ASN Task Force Recommendations. Result Comment: Talisha mated GFR was calculated using the 2020 CKD-EPI creatinine equation. Performed By: #### 4 [id number] #### LAB [address] [place] [address] Ramakrishna Browne M.D. [id number] Glucose [Mass/Vol] 106 mg/dL High 65-99 [facility] Comment on above: Order Comment: [facility] has implemented the eGFR calculation approach that does not have a coefficient for race that conforms to the NKF-ASN Task Force Recommendations. Performed By: #### 4 [id number] #### LAB [address] [place] [address] Ramakrishna Browne M.D. [id number] HCO3 (Bld) [Moles/Vol] 28 mmol/L Normal 21-32 [facility] Comment on above: Order Comment: [facility] has implemented the eGFR calculation approach that does not have a coefficient for race that conforms to the NKF-ASN Task Force Recommendations. Performed By: #### 4 [id number] #### LAB [address] [place] [address] Ramakrishna Browne M.D. [id number] Potassium [Moles/Vol] 3.0 mmol/L Low 3.5-5.1 [facility] Comment on above: Order Comment: [facility] has implemented the eGFR calculation approach that does not have a coefficient for race that conforms to the NKF-ASN Task Force Recommendations. Performed By: #### 4 [id number] #### LAB [address] [place] [address] Ramakrishna Browne M.D. [id number] Sodium [Moles/Vol] 138 mmol/L Normal 135-145 [facility] Comment on above: Order Comment: [facility] has implemented the eGFR calculation approach that does not have a coefficient for race that conforms to the NKF-ASN Task Force Recommendations. Performed By: #### 4 [id number] #### LAB [address] [place] [address] Ramakrishna Browne M.D. [id number] Urea nitrogen [Mass/Vol] 15 mg/dL Normal 8-25 [facility] Comment on above: Order Comment: [facility] has implemented the eGFR calculation approach that does not have a coefficient for race that conforms to the NKF-ASN Task Force Recommendations. Performed By: #### 4 [id number] #### LAB [address] [place] [address] Ramakrishna Browne M.D. [id number] Urea nitrogen/Creatinine [Mass ratio] 13.8 mg/mg Normal 10.0-20.0 [facility] Comment on above: Order Comment: [facility] has implemented the eGFR calculation approach that does not have a coefficient for race that conforms to the NKF-ASN Task Force Recommendations. Performed By: #### 4 [id number] #### LAB [address] [place] [address] Ramakrishna Browne M.D. [id number] CBC WITH AUTO DIFFERENTIALon 06-24-2024 AUTO NRBC 0.0 % [facility] Comment on above: Performed By: #### L [id number] #### LAB [address] [place] [address] Ramakrishna Browne M.D. [id number] AUTO NRBC ABS COUNT 0.00 K/mcL Normal 0.00-0.00 [facility] Comment on above: Performed By: #### L [id number] #### LAB [address] [place] [address] Ramakrishna Browne M.D. [id number] BASOPHILS ABSOLUTE COUNT 0.02 K/mcL Normal 0.00-0.30 [facility] Comment on above: Performed By: #### L [id number] #### LAB [address] [place] [address] Ramakrishna Browne M.D. [id number] Basophils/100 WBC (Bld) 0.4 % [facility] Comment on above: Performed By: #### L [id number] #### LAB [address] [place] [address] Ramakrishna Browne M.D. [id number] Eosinophils (Bld) [#/Vol] 0.10 10*3/uL Normal 0.00-0.50 [facility] Comment on above: Performed By: #### L [id number] #### LAB [address] [place] [address] Ramakrishna Browne M.D. [id number] Eosinophils/100 WBC (Bld) 2.1 % [facility] Comment on above: Performed By: #### L [id number] #### LAB [address] [place] [address] Ramakrishna Browne M.D. [id number] Erythrocyte distribution width (RBC) [Ratio] 16.1 % High 11.6-14.8 [facility] Comment on above: Performed By: #### L [id number] #### LAB [address] [place] [address] Ramakrishna Browne M.D. [id number] Hematocrit (Bld) [Volume fraction] 39.9 % Normal 36.0-46.0 [facility] Comment on above: Performed By: #### L [id number] #### LAB [address] [place] [address] Ramakrishna Browne M.D. [id number] Hemoglobin (Bld) [Mass/Vol] 14.0 g/dL Normal 12.0-16.0 [facility] Comment on above: Performed By: #### L [id number] #### LAB [address] [place] [address] Ramakrihsna Browne M.D. [id number] IG ABSOLUTE 0.02 K/mcL Normal 0.00-0.30 [facility] Comment on above: Performed By: #### L [id number] #### LAB [address] [place] [address] Ramakrishna Browne M.D. [id number] IG PERCENT 0.40 % [facility] Comment on above: Result Comment: The IG parameter is the percentage of metamyelocytes, myelocytes and promyelocytes. An immature granulocyte count (IG) of 1% or more suggests the possibility of infection, an IG count of 3% is very likely related to an infection. Performed By: #### L [id number] #### LAB [address] [place] [address] Ramakrishna Browne M.D. [id number] Lymphocytes (Bld) [#/Vol] 0.95 10*3/uL Normal 0.90-4.00 [facility] Comment on above: Performed By: #### L [id number] #### LAB [address] [place] [address] Ramakrishna Browne M.D. [id number] Lymphocytes/100 WBC (Bld) 20.1 % Normal [facility] Comment on above: Performed By: #### L [id number] #### LAB [address] [place] [address] Ramakrishna Browne M.D. [id number] MCH (RBC) [Entitic mass] 32.2 pg Normal 26.0-34.0 [facility] Comment on above: Performed By: #### L [id number] #### LAB [address] [place] [address] Ramakrishna Browne M.D. [id number] MCV (RBC) [Entitic vol] 91.7 fL Normal 80.0-100.0 [facility] Comment on above: Performed By: #### L [id number] #### LAB [address] [place] [address] Ramakrishna Browne M.D. [id number] MEAN CORPUSCULAR HEMOGLOBIN CONC 35.1 g/dL Normal 31.0-37.0 [facility] Comment on above: Performed By: #### L [id number] #### LAB [address] [place] [address] Ramakrishna Browne M.D. [id number] Monocytes (Bld) [#/Vol] 0.21 10*3/uL Low 0.30-0.90 [facility] Comment on above: Performed By: #### L [id number] #### LAB [address] [place] [address] Ramakrishna Browne M.D. [id number] Monocytes/100 WBC (Bld) 4.4 % Normal [facility] Comment on above: Performed By: #### L [id number] #### LAB [address] [place] [address] Ramakrishna Browne M.D. [id number] NEUTROPHILS ABSOLUTE COUNT 3.42 K/mcL Normal 1.70-7.00 [facility] Comment on above: Performed By: #### L [id number] #### LAB [address] [place] [address] Ramakrishna Browne M.D. [id number] Neutrophils/100 WBC (Bld) 72.6 % Normal [facility] Comment on above: Performed By: #### L [id number] #### LAB [address] [place] [address] Ramakrishna Browne M.D. [id number] Platelet mean volume (Bld) [Entitic vol] 13.0 fL High 9.4-12.4 [facility] Comment on above: Performed By: #### L [id number] #### LAB [address] [place] [address] Ramakrishna Browne M.D. [id number] Platelets (Bld) [#/Vol] 107 10*3/uL Low 150-400 [facility] Comment on above: Performed By: #### L [id number] #### LAB [address] [place] [address] Ramakrishna Browne M.D. [id number] RBC (Bld) [#/Vol] 4.35 10*6/uL Normal 4.00-5.20 [facility] Comment on above: Performed By: #### L [id number] #### LAB [address] [place] [address] Ramakrishna Browne M.D. [id number] WBC (Bld) [#/Vol] 4.72 10*3/uL Normal 4.50-11.00 [facility] Comment on above: Performed By: #### L [id number] #### LAB [address] [place] [address] Ramakrishna Browne M.D. [id number] COVID-19/INFLUENZA A,B MOLEC ULARon 06-24-2024 SARS-CoV-2 (COVID-19) Ab IA Ql SARS-COV-2 (CRISTAL) Not Detected INFLUENZA A (CRISTAL) Not Detected INFLUENZA B (CRISTAL) Not Detected Normal Not Detected [facility] Comment on above: Performed By: #### L [id number] #### LAB [address] [place] [address] Ramakrishna Browne M.D. [id number] CT CERVICAL SPINE WITHOUT CO NTRASTon 06-24-2024 [...] the cerebral sulci and ventricular system. Stable qjif-wl-qarkramg background of nonspecific white matter disease. No hydrocephalus. There are dystrophic calcifications associated with the interhemispheric falx. There is a dural based calcification along the high left posterior frontal lobe which is unchanged from prior measuring up to 6.7 x 10.3 mm in the coronal plane, likely inbound customer service representative of a calcified meningioma. No abnormal [...] level. Align (more content not included)... Normal [facility] Comment on above: Order Comment: Injur y/Trauma [...] the cerebral sulci and ventricular system. Stable cbsz-ig-yeidhprb background of nonspecific white matter disease. No hydrocephalus. There are dystrophic calcifications associated with the interhemispheric falx. There is a dural based calcification along the high left posterior frontal lobe which is unchanged from prior measuring up to 6.7 x 10.3 mm in the coronal plane, likely inbound customer service representative of a calcified meningioma. No abnormal [...] level. Align (more content not included)... Normal [facility] Comment on above: Order Comment: Injur y/Trauma or Illness?:Injury/Trauma How long have you had these symptoms (acute/chronic)?:Acute Reason for exam?:Patient states she became dizzy and fell Type of Exam?:Initial Mechanism of injury?:. ED Prov Noteon 06-24-2024 ED Prov Note [facility] ED Attending Note: NAME: Micheline Fox 64 y.o. CSN: [id number] PCP: Leticia Sylvester MD History: Chief Complaint: [...] Procedure: COLONOSCOPY; Surgeon: Joe Colón MD; [facility]; Service: Gastroenterology EGD N/A 07/29/2019 Procedure: ESOPHAGOGASTRODUODENO SCOPY; Surgeon: Joe Colón MD; [facility]; Service: Gastroenterology ESOPHAGOGASTRODUODENO SCOPY 11/13/2020 Isael Reis GASTRIC BYPASS 1996 LEFT HEART CATH N/A 07/08/2019 Procedure: Left Heart Cath; Surgeon: Hari Acosta MD; Location: [facility] INSTRU[facility]; Service: Cardiovascular HEEL SPUR RESECTION Right 11/14/2020 [...] Resource Strain: High Risk (08/06/2022) Received from [facility] Gaxiola Overall Financial Resource Strain (CARDIA) Difficulty of Paying Living Expenses: Hard Food Insecurity: Food Insecurity Present (08/06/2022) Received from [facility]iola Hunger Vital Sign Worried About Running Out of Food in the Last Year: Sometimes true Ran Out of Food in the Last Year: Sometimes true Transportation Needs: Unmet Transportation Needs (01/28/2024) Received from [employer] [facility] - Transportation Lack of Transportation (Medical): Yes Lack of Transportation (Non-Medical): Yes Physical Activity: Inactive (08/06/2022) Received from [facility]ore[facility] Gaxiola Exercise Vital Sign Days of Exercise per Week: 0 days Minutes of Exercise per Session: 0 min Stress: Stress Concern Present (08/06/2022) Received from [facility] Gaxiola [employer] [place] [employer] - Occupational Stress Questionnaire Feeling of Stress : Very much Social Connections: Moderately Isolated (08/06/2022) Received from [facility]orena Gaxiola Social Connection and Isolation Panel [NHANES] Frequency of Communication with Friends and Family: Twice a week Frequency of Social Gatherings with Friends and Family: Once a week Attends Hoahaoism Services: Never Active Member of Clubs or Organizations: No Attends Club or Organization Meetings: 1 to 4 times per year Marital Status: Housing Stability: Low Risk (08/06/2022) Received from [place] Housing Stability Vital Sign Unable to Pay [...] mg table (more content not included)... Normal [facility] HEPATIC FUNCTION PANELon Albumin [Mass/Vol] 4.0 g/dL Normal 3.2-5.2 [facility] Comment on above: Performed By: #### 4 5866 #### LAB [address] [address] Ramakrishna Browne M.D. [id number] ALP [Catalytic activity/Vol] 79 U/L Normal 40-150 [facility] Comment on above: Performed By: #### 4 5866 #### LAB [address] [address] Ramakrishna Browne M.D. [id number] ALT [Catalytic activity/Vol] 32 U/L Normal 0-35 U/L [facility] Comment on above: Performed By: #### 4 5866 #### LAB [address] [address] Ramakrishna Browne M.D. [id number] AST [Catalytic activity/Vol] 46 U/L High 0-35 U/L [facility] Comment on above: Performed By: #### 4 5866 #### LAB [address] [id number] Ramakrishna Browne M.D. [id number] Bilirubin [Mass/Vol] 1.4 mg/dL High 0.0-1.3 [facility] Comment on above: Performed By: #### 4 5866 #### LAB [address] [address] Ramakrishna Browne M.D. [id number] Bilirubin.indirect [Mass/Vol] 0.5 mg/dL High 0.0-0.4 [facility] Comment on above: Performed By: #### 4 5866 #### LAB [address] [address] Ramakrishna Browne M.D. [id number] Protein [Mass/Vol] 6.1 g/dL Normal 6.0-8.0 [facility] Comment on above: Performed By: #### 4 5866 #### LAB [address] [address] Ramakrishna Browne M.D. [id number] URINALYSISon 06-24-2024 BACTERIA, URINE None Seen Normal None Seen [facility] Comment on above: Order Comment: Micro scopic examination is performed on all urinalysis samples and only positive findings are reported. The test for blood on the chemical analytic portion of urinalysis may also be positive due to hemoglobinuria and myoglobinuria and if red blood cells are present they are quantified by microscopic examination. Performed By: #### 4 6625 #### LAB [address] [address] Ramakrishna Browne M.D. [id number] BILIRUBIN, URINE Positive Abnormal Negative [facility] Comment on above: Order Comment: Micro scopic [...] By: #### 4 6625 #### LAB [address] [address] Ramakrishna Browne M.D. [id number] BLOOD, URINE Negative Normal Negative [facility] Comment on above: Order Comment: Micro scopic examination is performed on all urinalysis samples and only positive findings are reported. The test for blood on the chemical analytic portion of urinalysis may also be positive due to hemoglobinuria and myoglobinuria and if red blood cells are present they are quantified by microscopic examination. Performed By: #### 4 6625 #### LAB [address] [id number] Ramakrishna Browne M.D. [id number] Clarity (U) Clear Normal Clear [facility] Comment on above: Order Comment: Micro scopic examination is performed on all urinalysis samples and only positive findings are reported. The test for blood on the chemical analytic portion of urinalysis may also be positive due to hemoglobinuria and myoglobinuria and if red blood cells are present they are quantified by microscopic examination. Performed By: #### 4 6625 #### LAB [address] [id number] Ramakrishna Browne M.D. [id number] Color (U) Gloria Abnormal Colorless, Yellow [facility] Comment on above: Order Comment: Micro scopic examination is performed on all urinalysis samples and only positive findings are reported. The test for blood on the chemical analytic portion of urinalysis may also be positive due to hemoglobinuria and myoglobinuria and if red blood cells are present they are quantified by microscopic examination. Performed By: #### 4 6625 #### LAB [address] [address] Ramakrishna Browne M.D. [id number] Glucose Ql (U) Negative Normal Negative [facility] Comment on above: Order Comment: Micro scopic examination is performed on all urinalysis samples and only positive findings are reported. The test for blood on the chemical analytic portion of urinalysis may also be positive due to hemoglobinuria and myoglobinuria and if red blood cells are present they are quantified by microscopic examination. Performed By: #### 4 6625 #### LAB [address] [place], [place] [address] Ramakrishna Browne M.D. [id number] Hyaline casts LM Ql (Urine sed) 3-5 Abnormal 0-2 [facility] Comment on above: Order Comment: Micro scopic examination is performed on all urinalysis samples and only positive findings are reported. The test for blood on the chemical analytic portion of urinalysis may also be positive due to hemoglobinuria and myoglobinuria and if red blood cells are present they are quantified by microscopic examination. Performed By: #### 4 6625 #### LAB [address] [address] Ramakrishna Browne M.D. [id number] Ketones Ql (U) Negative Normal Negative [facility] Comment on above: Order Comment: Micro scopic examination is performed on all urinalysis samples and only positive findings are reported. The test for blood on the chemical analytic portion of urinalysis may also be positive due to hemoglobinuria and myoglobinuria and if red blood cells are present they are quantified by microscopic examination. Performed By: #### 4 6625 #### LAB [address] [address] Ramakrishna Browne M.D. [id number] Leukocyte esterase Test strip Ql (U) Small Abnormal Negative [facility] Comment on above: Order Comment: Micro scopic examination is performed on all urinalysis samples and only positive findings are reported. The test for blood on the chemical analytic portion of urinalysis may also be positive due to hemoglobinuria and myoglobinuria and if red blood cells are present they are quantified by microscopic examination. Performed By: #### 4 6625 #### LAB [address] [id number] Ramakrishna Browne M.D. [id number] NITRITE, URINE Positive Abnormal Negative [facility] Comment on above: Order Comment: Micro scopic examination is performed on all urinalysis samples and only positive findings are reported. The test for blood on the chemical analytic portion of urinalysis may also be positive due to hemoglobinuria and myoglobinuria and if red blood cells are present they are quantified by microscopic examination. Performed By: #### 4 6625 #### LAB [address] [id number] Ramakrishna Browne M.D. [id number] pH (U) 7.0 [pH] Normal 5.0-7.0 [facility] Comment on above: Order Comment: Micro scopic examination is performed on all urinalysis samples and only positive findings are reported. The test for blood on the chemical analytic portion of urinalysis may also be positive due to hemoglobinuria and myoglobinuria and if red blood cells are present they are quantified by microscopic examination. Performed By: #### 4 6625 #### LAB [address] [address] Ramakrishna Browne M.D. [id number] PROTEIN, URINE Negative Normal Negative [facility] Comment on above: Order Comment: Micro scopic examination is performed on all urinalysis samples and only positive findings are reported. The test for blood on the chemical analytic portion of urinalysis may also be positive due to hemoglobinuria and myoglobinuria and if red blood cells are present they are quantified by microscopic examination. Performed By: #### 4 6625 #### LAB [address] [address] Ramakrishna Browne M.D. [id number] RBC LM.HPF (Urine sed) [#/Area] 2 /[HPF] Normal 0-3 [facility] Comment on above: Order Comment: Micro scopic examination is performed on all urinalysis samples and only positive findings are reported. The test for blood on the chemical analytic portion of urinalysis may also be positive due to hemoglobinuria and myoglobinuria and if red blood cells are present they are quantified by microscopic examination. Performed By: #### 4 6625 #### LAB [address] [address] Ramakrishna Browne M.D. [id number] Specific gravity (U) [Rel density] 1.023 Normal 1.005-1.025 [facility] Comment on above: Order Comment: Micro scopic examination is performed on all urinalysis samples and only positive findings are reported. The test for blood on the chemical analytic portion of urinalysis may also be positive due to hemoglobinuria and myoglobinuria and if red blood cells are present they are quantified by microscopic examination. Performed By: #### 4 6625 #### LAB [address] [address] Ramakrishna Browne M.D. [id number] SQUAMOUS EPITHELIAL 5 /hpf High 0-4 [facility] Comment on above: Order Comment: Micro scopic examination is performed on all urinalysis samples and only positive findings are reported. The test for blood on the chemical analytic portion of urinalysis may also be positive due to hemoglobinuria and myoglobinuria and if red blood cells are present they are quantified by microscopic examination. Performed By: #### 4 6625 #### LAB [address] [address] Ramakrishna Browne M.D. [id number] UROBILINOGEN, URINE >=4.0 Abnormal <2.0 [facility] Comment on above: Order Comment: Micro scopic examination is performed on all urinalysis samples and only positive findings are reported. The test for blood on the chemical analytic portion of urinalysis may also be positive due to hemoglobinuria and myoglobinuria and if red blood cells are present they are quantified by microscopic examination. Performed By: #### 4 6625 #### LAB [address] [address] Ramakrishna Browne M.D. [id number] WBC LM.HPF (Urine sed) [#/Area] 17 /[HPF] High 0-5 [facility] Comment on above: Order Comment: Micro scopic examination is performed on all urinalysis samples and only positive findings are reported. The test for blood on the chemical analytic portion of urinalysis may also be positive due to hemoglobinuria and myoglobinuria and if red blood cells are present they are quantified by microscopic examination. Performed By: #### 4 6625 #### LAB [address] [address] Ramakrishna Browne M.D. [id number] URINE AEROBIC CULTUREon URINE AEROBIC CULTURE URINE CULTURE > 10,000 CFU/mL mixture of normal urogenital microbiota Normal [facility] Comment on above: Performed By: #### L [id number] #### [facility] [address] [address] Ramakrishna Browne M.D. [id number] XR HIPS BILATERAL WITH PELVI S 5+ [...] IMPRESSION: No acute fracture or traumatic malalignment. ST/[employer] Workstation ID: [id number] Dictated by: IJMMIE HELTON on ThuJun 24, 2024 11:34:47 AM EDT Transcribed by: NIDA HARRY on ThuJun 24, 2024 12:10:34 PM EDT Finalized by: JIMMIE HELTON on ThuJun 24, 2024 9:49:[address] [facility] Comment on above: Order Comment: Injur y/Trauma or Illness?:Injury/TraumaHow long have you had these symptoms (acute/chronic)?:AcuteReason for exam?:bilateral hip pain from fallHistory of cancer?:unknownSurgeries, chemotherapy, or radiation?:unknownType of Exam?:InitialMechanism of injury?:fall Basic metabolic 2000 panelon 02-26-2024 Anion gap [Moles/Vol] 11 mmol/L Normal 10-20 [facility] Comment on above: Performed By: #### 2 4321-2 #### KIMO JIMENEZ ([id number]) [facility] ([facility]) [address] [place] [address] Calcium [Mass/Vol] 8.8 mg/dL Normal 8.6-10.[address] [facility] Comment on above: Performed By: #### 2 4321-2 #### KIMO IJMENEZ ([id number]) [facility] ([facility]) [address] [place] [address] Chloride [Moles/Vol] 104 mmol/L Normal 98-107 [facility] Comment on above: Performed By: #### 2 4321-2 #### KIMO JIMENEZ ([id number]) [facility] ([facility]) [address] [place] [address] CO2 [Moles/Vol] 29 mmol/L Normal 21-32 [facility] Comment on above: Performed By: #### 2 4321-2 #### KIMO JIMENEZ ([id number]) [facility] ([facility]) [address] [place] [address] Creatinine [Mass/Vol] 1.01 mg/dL Normal 0.50-1.05 [facility] Comment on above: Performed By: #### 2 4321-2 #### KIMO JIMENEZ ([id number]) [facility] ([facility]) [address] [place] [address] Glomerular filtration rate/1.73 sq M.predicted 63 mL/min/1.73m*2 Normal >60 [facility] Comment on above: Result Comment: Calc ulations of estimated GFR are performed using the 2020 CKD-EPI Study Refit equation without the race variable for the IDMS-Traceable creatinine methods. https://jasn.asnjournals.org/content//ASN.225126 1226 Performed By: #### 2 4321-2 #### KIMO JIMENEZ ([id number]) [facility] ([facility]) [address] [place] [address] Glucose [Mass/Vol] 120 mg/dL High 74-[address] [facility] Comment on above: Performed By: #### 2 4321-2 #### KIMO JIMENEZ ([id number]) [facility] ([facility]) [address] [place] [address] Potassium [Moles/Vol] 3.8 mmol/L Normal 3.5-5.3 [facility] Comment on above: Performed By: #### 2 4321-2 #### KIMO JIMENEZ ([id number]) [facility] ([facility]) [address] [place] [address] Sodium [Moles/Vol] 140 mmol/L Normal 136-[address] [facility] Comment on above: Performed By: #### 2 4321-2 #### KIMO JIMENEZ ([id number]) [facility] ([facility]) [address] [place] [address] Urea nitrogen [Mass/Vol] 14 mg/dL Normal 6-23 [facility] Comment on above: Performed By: #### 2 4321-2 #### KIMO JIMENEZ ([id number]) [facility] ([facility]) [address] [place] [address] Calcidiolon 02-26-2024 25-hydroxyvitamin D3 [Mass/Vol] 23 ng/mL Low 30-100 [facility] Comment on above: Order Comment: Defic iency: < 20 ng/ml Insufficiency: 20-29 ng/ml Sufficiency: 30-100 ng/ml This assay accurately quantifies the sum of Vitamin D3, 25-Hydroxy and Vitamin D2,25-Hydroxy. Performed By: #### 1 989-3 #### KIMO JIMENEZ ([id number]) [facility] ([facility]) [address] [place] [address] HbA1c (Bld) [Mass fraction]o n 02-26-2024 Average glucose Estimated from glycated hemoglobin (Bld) [Mass/Vol] 77 mg/dL Normal Not Established [facility] Comment on above: Order Comment: Diagn osis of Diabetes-Adults Non-Diabetic: < or = 5.6% Increased risk for developing diabetes: 5.7-6.4% Diagnostic of diabetes: > or = 6.5% Monitoring of Diabetes Age (y)....................... Therapeutic Goal (%) Adults: >18.........................<7.0 Pediatrics: 13-18...................<7.5 Pediatrics: 7-12....................<8.0 Pediatrics: 0-6..................... 7.5-8.5 [employer]. Diabetes Care 33(S1), Sep 2009 Performed By: #### 4 548-4 #### KIMO JIMENEZ ([id number]) [facility] ([facility]) [address] [id number] Hemoglobin A1c/Hemoglobin.to jane 02-26-2024 HbA1c (Bld) [Mass fraction] 4.3 % Normal see below [facility] Comment on above: Order Comment: Diagn osis of Diabetes-Adults Non-Diabetic: < or = 5.6% Increased risk for developing diabetes: 5.7-6.4% Diagnostic of diabetes: > or = 6.5% Monitoring of Diabetes Age (y)....................... Therapeutic Goal (%) Adults: >18.........................<7.0 Pediatrics: 13-18...................<7.5 Pediatrics: 7-12....................<8.0 Pediatrics: 0-6..................... 7.5-8.5 [employer]. Diabetes Care 33(S1), Sep 2009 Performed By: #### 4 548-4 #### MALIN TONY ([id number]) [facility] ([facility]) [facility] [place] [address] LIVER ELASTOGRAPHYon 024 Jaime Carter APRN-CNP 02/19/2024 2:34 PM [employer] Controlled Transient Elastography (Fibroscan) Diesel Machinist: Nikhil Lawson Attending: Jaime Carter APRN-CNP Patient was identified via name and . Micheline FOX presents to endoscopy suite for VCTE. Referring Provider: HEATHER Johnson Diagnosis: Hepatic cirrhosis, unspecified hepatic cirrhosis type (HCC) (Primary Diagnosis) [[id number]] Fatty liver Two Pt identifiers where confirmed. [...] to hepatology. Interpreting Provider: Jaime Carter APRN-CNP [facility] Procedureson 02-19-2024 Collection Specialist Authentication Interface Message Text Velocity Controlled Transient Elastography (Fibroscan) Diesel Machinist: Nikhil Lawson Attending: Jaime Carter APRN-CNP Patient was identified via name and . Micheline FOX presents to endoscopy suite for VCTE. Referring Provider: HEATHER Johnson Diagnosis: Hepatic cirrhosis, unspecified hepatic cirrhosis type (HCC) (Primary Diagnosis) [[id number]] Fatty liver Two Pt identifiers where confirmed. [...] Jaime Carter APRN-CNP Invalid Interpretation Code [facility] [employer] [facility] US Abdomen RUQon 02-19-2024 EXAMINATION: US [...] a focal suspicious hepatic lesion. MACRO: None [employer] Radiology Study observation (narrative) [employer] US Abdomen RUQOrdered By: Shawanda Kelly on 02-19-2024 [employer] Work Phone: US LIVER/GALL BLADDER/PANCRE ASon 02-19-2024 [...] suspicious hepatic lesion. MACRO: None Normal [facility] [employer] [facility] ALPHA FETOPROTEIN TUMOR ALMA Oswald 01-27-2024 AFP 3.6 ng/mL Normal <=9.0 [facility] [employer] [facility] Comment on above: Order Comment: The [employer] DxI Alpha- Fetoprotein (AFP) assay is [...] A FP TM #### [facility] [address] [place] [address], BASIC METABOLIC PANELon 05-0 Anion gap [Moles/Vol] 16 mmol/L Normal 10-20 [facility] Comment on above: Performed By: #### C H8, HEPATIC #### [facility] [address] [place] [address], Calcium [Mass/Vol] 9.5 mg/dL Normal 8.6-10.3 [facility] Comment on above: Performed By: #### C H8, HEPATIC #### [facility] [address] [place] [address], Chloride [Moles/Vol] 101 mmol/L Normal 98-107 [facility] Comment on above: Performed By: #### C H8, HEPATIC #### [facility] [address] [place] [address], CO2 [Moles/Vol] 26 mmol/L Normal 21-31 [facility] Comment on above: Performed By: #### C H8, HEPATIC #### [facility] [address] [place] [address], Creatinine [Mass/Vol] 1.11 mg/dL Normal 0.60-1.20 [facility] Comment on above: Performed By: #### C H8, HEPATIC #### [facility] [address] [place] [address], ESTIMATED GFR (CKD-EPI) 56 mL/min/1.73sqm Low >=60 [facility] Comment on above: Result Comment: 2020 [...] Inclusion of Race in Diagnosing Kidney Disease. [place] Journal of Kidney Diseases 2021;79(2):268-88.e1. 2. N Engl J Med 2020 Vol. 385 Issue 19 Pages 7360-3287 Performed By: #### C H8, HEPATIC #### [facility] [address] [place] [address], Glucose [Mass/Vol] 115 mg/dL High 74-109 [facility] Comment on above: Performed By: #### C H8, HEPATIC #### [facility] [address] [place] [address], Potassium [Moles/Vol] 4.0 mmol/L Normal 3.5-5.0 [facility] Comment on above: Performed By: #### C H8, HEPATIC #### [facility] [address] [place] [address], Sodium [Moles/Vol] 139 mmol/L Normal 136-145 [facility] Comment on above: Performed By: #### C H8, HEPATIC #### [facility] [address] [place] [address], Urea nitrogen [Mass/Vol] 25 mg/dL Normal 7-25 [facility] Comment on above: Performed By: #### C H8, HEPATIC #### [facility] [address] [place] [address], Basic metabolic 2000 panelon 01-27-2024 Anion gap [Moles/Vol] 16 mmol/L 10 - 20 Met [facility] Calcium [Mass/Vol] 9.5 mg/dL 8.6 - 10. [...] Inclusion of Race in Diagnosing Kidney Disease. [place] Journal of Kidney Diseases 202;79(2):268-88.e1. 2. N Engl J Med 2020 Vol. 385 Issue 19 Pages 9020-0451 Glucose [Mass/Vol] 115 mg/dL High 74 - [...] above: Performed By: #### C BC #### [facility] [address] [place] [address], Hematocrit (Bld) [Volume fraction] 41.9 % Normal 36.0-46.0 [facility] Comment on above: Performed By: #### C BC #### [facility] [address] [place] [address], Hemoglobin (Bld) [Mass/Vol] 13.9 g/dL Normal 12.0-15.0 [facility] Comment on above: Performed By: #### C BC #### [facility] [address] [place] [address], MCH (RBC) [Entitic mass] 31.5 pg Normal 26.0-34.0 [facility] Comment on above: Performed By: #### C BC #### [facility] [address] [place] [address], MCHC (RBC) [Mass/Vol] 33.1 g/dL Normal 32.0-35.9 [facility] Comment on above: Performed By: #### C BC #### [facility] [address] [place] [address], MCV (RBC) [Entitic vol] 95 fL Normal 80-100 [facility] Comment on above: Performed By: #### C BC #### [facility] [address] [place] [address], Platelet mean volume (Bld) [Entitic vol] 10.8 fL Normal 7.5-11.2 [facility] Comment on above: Performed By: #### C BC #### [facility] [address] [place] [address], Platelets (Bld) [#/Vol] 177 10*3/uL Normal 150-400 [facility] Comment on above: Performed By: #### C BC #### [facility] [address] [place] [address], RBC (Bld) [#/Vol] 4.40 10*6/uL Normal 4.00-5.20 [facility] Comment on above: Performed By: #### C BC #### [facility] [address] [place] [address], WBC (Bld) [#/Vol] 6.9 10*3/uL Normal 4.5-11.5 [facility] Comment on above: Performed By: #### C BC #### [facility] [address] [place] [address], HEPATIC FUNCTION PANELon Albumin [Mass/Vol] 4.4 g/dL Normal 3.5-5.7 [facility] Comment on above: Performed By: #### C H8, HEPATIC #### [facility] [address] [place] [address], ALK 59 IU/L Normal 34-104 [facility] Comment on above: Performed By: #### C H8, HEPATIC #### [facility] [address] [place] [address], ALT [Catalytic activity/Vol] 38 U/L Normal 7-52 [facility] Comment on above: Performed By: #### C H8, HEPATIC #### [facility] [address] [place] [address], AST [Catalytic activity/Vol] 31 U/L Normal 13-39 [facility] Comment on above: Performed By: #### C H8, HEPATIC #### [facility] [address] [place] [address], Bilirubin [Mass/Vol] 1.0 mg/dL Normal 0.3-1.0 [facility] Comment on above: Performed By: #### C H8, HEPATIC #### [facility] [address] [place] [address], Bilirubin.direct [Mass/Vol] 0.23 mg/dL High 0.03-0.18 [facility] Comment on above: Performed By: #### C H8, HEPATIC #### [facility] [address] [place] [address], Protein [Mass/Vol] 6.8 g/dL Normal 6.0-8.3 [facility] Comment on above: Performed By: #### C H8, HEPATIC #### [facility] [address] [place], [address] Laboratory - Chemistry and C hemistry - [...] [Mass/Vol] 6.8 g/dL 6.0 - 8.3 g/dL [facility] - CoagulationOrde red By: Franklyn Nguyễn on 01-27-2024 INR Coag (PPP) [Relative time] 0.95 {INR} 0.90 - 1.10 [facility] PT Coag (PPP) [Time] 11.3 s [facility] No Panel Informationon 01-26 AFP 3.6 ng/mL NINF - 9.0 ng/mL [facility] Interpretation and review of laboratory results Normal [facility] Alpha-Fetoprotein (AFP) assay is a [...] interpretable as a tumor marker in females [facility] Interpretation and review of laboratory results Abnormal [facility] No Panel InformationOrdered By: Franklyn Nguyễn on 01-27-2024 Interpretation and review of laboratory results Normal [facility]OT[facility]BIN TIME AND INRon 0 01-27-2024 INR Coag (PPP) [Relative time] 0.95 {INR} Normal 0.90-1.10 [facility] [employer] [facility] Comment on above: Performed By: #### P T #### [facility] [address] [place], [address] PT Coag (PPP) [Time] 11.3 s Normal 9.4-12.5 [facility] [employer] [facility] Comment on above: Performed By: #### P T #### [facility] [address] [place], [address] Progress Noteson 01-27-2024 Collection Specialist 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 Normal [facility] [employer] [facility] XR CHEST PA/APon 01-12-2024 XR CHEST [...] on ThuJan 12, 2024 9:31:51 AM EDT [facility] Comment on above: Order Comment: Injur y/Trauma or Illness?:Illness/Other How long have you had these symptoms (acute/chronic)?:Acute Reason for exam?:SOB, anxiety History of cancer?:unknown Surgeries, chemotherapy, or radiation?:unknown Type of Exam?:Initial Additional signs and symptoms?:. ALCOHOLon 12-19-2023 Ethanol [Mass/Vol] mg/dL Normal 0-10 [facility] Comment on above: Result Comment: INTOXICATION >80 MG/DL FATAL >400 MG/DL Performed By: #### U GERARDO, RTOX, UMAC #### Testing performed at [address] [address] ALCOHOL (ETHANOL),BLOODon Ethanol [Mass/Vol] mg/dL [facility] Comment on above: INTOXICATION >80 MG/DL FATAL >400 MG/DL CBCon 12-19-2023 ABSOLUTE BAS 0.0 10*3/uL Normal 0.0-0.2 [facility] Comment on above: Performed By: #### U GERARDO, RTOX, UMAC #### Testing performed at [address] [address] ABSOLUTE EOS 0.1 10*3/uL Normal 0.0-0.7 [facility] Comment on above: Performed By: #### U GERARDO, RTOX, UMAC #### Testing performed at [address] [address] ABSOLUTE NEUTROPHIL COUNT 3.4 10*3/uL Normal 1.4-6.5 [facility] Comment on above: Performed By: #### U GERARDO, RTOX, UMAC #### Testing performed at [address] [address] Basophils/100 WBC (Bld) 0.5 % Normal 0.0-2.0 [facility] Comment on above: Performed By: #### U GERARDO, RTOX, UMAC #### Testing performed at [address] [address] DTYPE AUTO DIFF Normal [facility] Comment on above: Performed By: #### U GERARDO, RTOX, UMAC #### Testing performed at [address] [address] Eosinophils/100 WBC (Bld) 2.0 % Normal 0.0-11.0 [facility] Comment on above: Performed By: #### U GERARDO, RTOX, UMAC #### Testing performed at [address] [address] Lymphocytes (Bld) [#/Vol] 1.2 10*3/uL Normal 1.2-3.4 [facility] Comment on above: Performed By: #### U GERARDO, RTOX, UMAC #### Testing performed at [address] [address] Lymphocytes/100 WBC (Bld) 23.9 % Normal 20.0-55.0 [facility] Comment on above: Performed By: #### U GERARDO, RTOX, UMAC #### Testing performed at [address] [address] Monocytes (Bld) [#/Vol] 0.3 10*3/uL Normal 0.0-0.7 [facility] Comment on above: Performed By: #### U GERARDO, RTOX, UMAC #### Testing performed at [address] [address] Monocytes/100 WBC (Bld) 5.3 % Normal 0.0-10.0 [facility] Comment on above: Performed By: #### U GERARDO, RTOX, UMAC #### Testing performed at [address] [address] Neutrophils/100 WBC (Bld) 68.3 % Normal 37.0-75.0 [facility] Comment on above: Performed By: #### U GERARDO, RTOX, UMAC #### Testing performed at [address] [address] Erythrocyte distribution width (RBC) [Ratio] 16.3 % High 11.5-14.5 [facility] Comment on above: Performed By: #### U GERARDO, RTOX, UMAC #### Testing performed at [address] [address] Hematocrit (Bld) [Volume fraction] 34.5 % Low 36.0-48.0 [facility] Comment on above: Performed By: #### U GERARDO, RTOX, UMAC #### Testing performed at [address] [address] Hemoglobin (Bld) [Mass/Vol] 12.0 g/dL Normal 12.0-16.0 [facility] Comment on above: Performed By: #### U GERARDO, RTOX, UMAC #### Testing performed at [address] [address] MCH (RBC) [Entitic mass] 32.5 pg Normal 26.0-35.0 [facility] Comment on above: Performed By: #### U GERARDO, RTOX, UMAC #### Testing performed at [address] [address] MCHC (RBC) [Mass/Vol] 34.9 g/dL Normal 27.0-37.0 [facility] Comment on above: Performed By: #### U GERARDO, RTOX, UMAC #### Testing performed at [address] [address] MCV (RBC) [Entitic vol] 93.0 fL Normal 80.0-100.0 [facility] Comment on above: Performed By: #### U GERARDO, RTOX, UMAC #### Testing performed at [address] [address] Platelet mean volume (Bld) [Entitic vol] 10.0 fL Normal 7.4-11.0 [facility] Comment on above: Performed By: #### U GERARDO, RTOX, UMAC #### Testing performed at [address] [address] Platelets (Bld) [#/Vol] 111 10*3/uL Low 130-400 [facility] Comment on above: Performed By: #### U GERARDO, RTOX, UMAC #### Testing performed at [address] [address] RBC (Bld) [#/Vol] 3.70 10*6/uL Low 4.0-5.4 [facility] Comment on above: Performed By: #### U GERARDO, RTOX, UMAC #### Testing performed at [address] [address] WBC (Bld) [#/Vol] 5.0 10*3/uL Normal 3.6-11.0 [facility] Comment on above: Performed By: #### U GERARDO, RTOX, UMAC #### Testing performed at [facility] [address] [place] [address] CBC, EDIF, PLATELETon 2023 ABSOLUTE BASOPHIL COUNT 0.0 10*3/uL 0.0 - 0.2 10*3/uL [facility] Basophils/100 WBC (Bld) 0.5 % 0.0 - 2.0 % [facility] Differential cell count method Nom (Bld) AUTO DIFF % [facility] Eosinophils (Bld) [#/Vol] 0.1 10*3/uL 0.0 - 0.7 10*3/uL [facility] Eosinophils/100 WBC (Bld) 2.0 % 0.0 - 11.0 % [facility] Erythrocyte distribution width (RBC) [Ratio] 16.3 % High 11.5 - 14.5 % [facility] Hematocrit (Bld) [Volume fraction] 34.5 % Low 36.0 - 48.0 % [facility] Hemoglobin (Bld) [Mass/Vol] 12.0 g/dL [facility] Interpretation and review of laboratory results Abnormal [facility] Lymphocytes (Bld) [#/Vol] 1.2 10*3/uL 1.2 - 3.4 10*3/uL [facility] Lymphocytes/100 WBC (Bld) 23.9 % 20.0 - 55.0 % [facility] MCH (RBC) [Entitic mass] 32.5 pg 26.0 - 35.0 PG [facility] MCHC (RBC) [Mass/Vol] 34.9 g/dL [facility] MCV (RBC) [Entitic vol] 93.0 fL [facility] Monocytes (Bld) [#/Vol] 0.3 10*3/uL 0.0 - 0.7 10*3/uL [facility] Monocytes/100 WBC (Bld) 5.3 % 0.0 - 10.0 % [facility] Neutrophils (Bld) [#/Vol] 3.4 10*3/uL 1.4 - 6.5 10*3/uL [facility] Neutrophils/100 WBC (Bld) 68.3 % 37.0 - 75.0 % [facility] Platelet mean volume (Bld) [Entitic vol] 10.0 fL [facility] Platelets (Bld) [#/Vol] 111 10*3/uL Low 130 - 400 10*3/uL [facility] RBC (Bld) [#/Vol] 3.70 10*6/uL Low 4.0 - 5.4 10*6/uL [facility] WBC (Bld) [#/Vol] 5.0 10*3/uL 3.6 - 11.0 10*3/uL [facility] CHEM 7 FASTINGon 12-19-2023 Chloride [Moles/Vol] 113 mmol/L High 98-107 [facility] Comment on above: Result Comment: Hilary diaz note: Triglyceride levels of 600mg/dL or higher may positively bias chloride results by approximately 2.1 mmol Performed By: #### U GERARDO, RTOX, UMAC #### [place] [address] CO2 [Moles/Vol] 19 mmol/L Low 22-30 [facility] Comment on above: Performed By: #### U GERARDO, RTOX, UMAC #### [place] [address] Creatinine [Mass/Vol] 1.30 mg/dL High 0.70-1.20 [facility] Comment on above: Performed By: #### U GERARDO, RTOX, UMAC #### [place] [address] EST. GFR, 53 ml/min/1.73sq.m [facility] Comment on above: Performed By: #### U GERARDO, RTOX, UMAC #### [place] [address] EST. GFR,Non 44 ml/min/1.73sq.m [facility] Comment on above: Performed By: #### U GERARDO, RTOX, UMAC #### [place] [address] GFR Information Average GFR for 60-6 9 years old = 85. [facility] Comment on above: Result Comment: Herb Digger romelia Kidney disease, GFR = <60. Kidney failure, GFR = <15. The GFR estimate is not adjusted for extreme body surface area or acute process, nor has it been validated for women or ethnic groups other than and . Performed By: #### U GERARDO, RTOX, UMAC #### Testing performed at [address] [address] Glucose [Mass/Vol] 107 mg/dL High 70-100 [facility] Comment on above: Result Comment: NORMAL <100 mg/dL PREDIABETES 101-126 mg/dL DIABETES 126 mg/dL or higher Performed By: #### U GERARDO, RTOX, UMAC #### Testing performed at [address] [address] Potassium [Moles/Vol] 3.3 mmol/L Low 3.5-5.1 [facility] Comment on above: Performed By: #### U GERARDO, RTOX, UMAC #### Testing performed at [address] [address] Sodium [Moles/Vol] 142 mmol/L Normal 137-145 [facility] Comment on above: Performed By: #### U GERARDO, RTOX, UMAC #### Testing performed at [address] [address] Urea nitrogen [Mass/Vol] 12 mg/dL Normal 7-20 [facility] Comment on above: Performed By: #### U GERARDO, RTOX, UMAC #### Testing performed at [address] [address] CHEM 7 (LYTES,BUN,CREA,GLUC) on 12-19-2023 Chloride [Moles/Vol] 113 mmol/L [facility] [employer] [facility] Comment on above: Please note: Triglyc eride levels of 600mg/dL or higher may positively bias chloride results by approximately 2.1 mmol CO2 [Moles/Vol] 19 mmol/L Low [facility] Creatinine [Mass/Vol] 1.30 mg/dL High [place] [employer] [facility] GFR COMMENT Average GFR for 60-6 9 years old = 85. [facility] [employer] [facility] Comment on above: Chronic Kidney disea se, GFR = <60. Kidney failure, GFR = <15. The GFR estimate is not adjusted for extreme body surface area or acute process, nor has it been validated for women or ethnic groups other than and . GFR/1.73 sq M.predicted among blacks MDRD (S/P/Bld) [Vol rate/Area] 53 mL/min/{1.73_m2} ml/min/1.73sq .m [facility] GFR/1.73 sq M.predicted among non-blacks MDRD (S/P/Bld) [Vol rate/Area] 44 mL/min/{1.73_m2} ml/min/1.73sq .m [facility] Glucose post fast [Mass/Vol] 107 mg/dL High [facility] Comment on above: NORMAL <100 mg/dL PREDIABETES 101-126 mg/dL DIABETES 126 mg/dL or higher Potassium [Moles/Vol] 3.3 mmol/L Low [facility] Sodium [Moles/Vol] 142 mmol/L [facility] Urea nitrogen [Mass/Vol] 12 mg/dL [facility] CT ABDOMEN/PELVIS WITHOUT CO NTRASTon 12-19-2023 CT [...] of unenhanced CT, as described above. Normal [facility] CT Abdomen and Pelvis WO con traston [...] limits of unenhanced CT, as described above. [facility] Study observation (narrative) [facility] CT Abdomen and Pelvis WO con trastOrdered By: Rico Mendez on 12-19-2023 [facility] Work Phone: HEPATIC FUNCTION PANELon Albumin [Mass/Vol] 4.6 g/dL [facility] ALP [Catalytic activity/Vol] 73 U/L [facility] ALT [Catalytic activity/Vol] 45 U/L High NINF [facility] AST [Catalytic activity/Vol] 44 U/L High [facility] Bilirubin [Mass/Vol] 1.4 mg/dL High [facility] Bil[employer]direct [Mass/Vol] 0.2 mg/dL [facility] Protein [Mass/Vol] 6.8 g/dL [facility] LACTATE, BLOODon 12-19-2023 Lactate [Moles/Vol] 1.1 mmol/L 0.7 - 2. 0 mmol/L [facility] LACTATE,BLOODon 12-19-2023 Lactate [Moles/Vol] 1.1 mmol/L Normal 0.7-2.0 [facility] Comment on above: Performed By: #### L ACTAC ####Testing performed at [address] [place] [address] LIPASEon 12-19-2023 Lipase [Catalytic activity/Vol] 146 U/L 23 - 300 U/L [facility] LIPASE,SERUMon 12-19-2023 LIPASE,SERUM 146 U/L Normal 23-300 [facility] Comment on above: Performed By: #### U GERARDO, RTOX, UMAC #### Testing performed at [address] [address] LIVER PANELon 12-19-2023 Albumin [Mass/Vol] 4.6 g/dL Normal 2.9-5.3 [facility] Comment on above: Performed By: #### U GERARDO, RTOX, UMAC #### Testing performed at [address] [address] ALP [Catalytic activity/Vol] 73 U/L Normal 38-126 [facility] Comment on above: Performed By: #### U GERARDO, RTOX, UMAC #### Testing performed at [address] [address] ALT [Catalytic activity/Vol] 45 U/L High <35 [facility] Comment on above: Performed By: #### U GERARDO, RTOX, UMAC #### Testing performed at [address] [place] [address] AST [Catalytic activity/Vol] 44 U/L High 14-36 [facility] Comment on above: Performed By: #### U GERARDO, RTOX, UMAC #### Testing performed at [address] [place] [address] Bilirubin [Mass/Vol] 1.4 mg/dL High 0.2-1.3 [facility] Comment on above: Performed By: #### U GERARDO, RTOX, UMAC #### Testing performed at [address] [address] Bilirubin.indirect [Mass/Vol] 0.2 mg/dL Normal 0.0-0.4 [facility] Comment on above: Performed By: #### U GERARDO, RTOX, UMAC #### Testing performed at [address] [address] Protein [Mass/Vol] 6.8 g/dL Normal 6.3-8.2 [facility] Comment on above: Performed By: #### U GERARDO, RTOX, UMAC #### Testing performed at [address] [address] No Panel Informationon 12-18 Interpretation and review of laboratory results Abnormal [facility] Interpretation and review of laboratory results Abnormal [facility] RAPID TOX SCREEN,URINEon AMPHETAMINE Negative Normal NEGATIVE [facility] Comment on above: Result Comment: <500 ng/ml CUTOFF Performed By: #### U GERARDO, RTOX, UMAC #### Testing performed at [address] [place] [address] BARBITURATES Negative Normal NEGATIVE [facility] Comment on above: Result Comment: <200 ng/ml CUTOFF Performed By: #### U GERARDO, RTOX, UMAC #### Testing performed at [address] [place] [address] BENZODIAZEPINES Positive Abnormal NEGATIVE [facility] Comment on above: Result Comment: <200 ng/ml CUTOFF *Unconfirmed Screening Result* Unconfirmed screening results are to be used only for medical treatment purposes. Performed By: #### U GERARDO, RTOX, UMAC #### Testing performed at [address] [place] [address] BUPRENORPHINE Negative Normal NEGATIVE [facility] Comment on above: Result Comment: <12. 5 ng/ml CUTOFF Performed By: #### U GERARDO, RTOX, UMAC #### Testing performed at [address] [place] [address] CANNABINOIDS Negative Normal NEGATIVE [facility] Comment on above: Result Comment: <50 ng/ml CUTOFF Performed By: #### U GERARDO, RTOX, UMAC #### Testing performed at [address] [address] COCAINE Negative Normal NEGATIVE [facility] Comment on above: Result Comment: <150 ng/ml CUTOFF Performed By: #### U GERADRO, RTOX, UMAC #### Testing performed at [address] [address] FENTANYL Negative Normal NEGATIVE [facility] Comment on above: Result Comment: 20 n g/mL CUTOFF *Unconfirmed Screening Result* Unconfirmed screening results are to be used only for medical treatment purposes. This test has not been approved by the FDA. Performed By: #### U GERARDO, RTOX, UMAC #### Testing performed at [address] [address] METHADONE Negative Normal NEGATIVE [facility] Comment on above: Result Comment: Meth adone Metabolite <100 ng/ml CUTOFF Performed By: #### U GERARDO, RTOX, UMAC #### Testing performed at [address] [address] METHAMPHETAMINE Negative Normal NEGATIVE [facility] Comment on above: Result Comment: <500 ng/ml CUTOFF Performed By: #### U GERARDO, RTOX, UMAC #### Testing performed at [address] [address] OPIATES Negative Normal NEGATIVE [facility] Comment on above: Result Comment: <300 ng/ml CUTOFF Performed By: #### U GERARDO, RTOX, UMAC #### Testing performed at [address] [address] OXYCODONE Negative Normal NEGATIVE [facility] Comment on above: Result Comment: <100 ng/ml CUTOFF Performed By: #### U GERARDO, RTOX, UMAC #### Testing performed at [address] [address] TRICYCLIC ANTIDEPRESSANTS Positive Abnormal NEGATIVE [facility] Comment on above: Result Comment: <100 0 ng/ml CUTOFF *Unconfirmed Screening Result* Unconfirmed screening results are to be used only for medical treatment purposes. Performed By: #### U GERARDO, RTOX, UMAC #### Testing performed at [facility] [address] [place] [address] TOXICOLOGY DRUG SCREEN, URIN Abelardo 12-19-2023 Amphetamine (U) [Mass/Vol] Negative NEGATIVE NG/ML [facility] [employer] [facility] Comment on above: <500 ng/ml CUTOFF Barbiturates Screen Ql (U) Negative NEGATIVE NG/ML [employer] [facility] Comment on above: <200 ng/ml CUTOFF Benzodiazepines Ql (U) Positive Abnormal NEGATIVE NG[facility] Comment on above: <200 ng/ml CUTOFF *Unconfirmed Screening Result* Unconfirmed screening results are to be used only for medical treatment purposes. Benzoylecgonine Ql (U) Negative NEGATIVE NG/ML [employer] [facility] Comment on above: <150 ng/ml CUTOFF Buprenorphine Ql (U) Negative NEGATIV E NG/ML [facility] Comment on above: <12.5 ng/ml CUTOFF Cannabinoids Screen Ql (U) Negative NEGATIVE NG/ML [facility] Comment on above: <50 ng/ml CUTOFF Fentanyl Negative NEGATIVE NG/ML [facility] Comment on above: 20 ng/mL CUTOFF *Unconfirmed Screening Result* Unconfirmed screening results are to be used only for medical treatment purposes. This test has not been approved by the FDA. Interpretation and review of laboratory results Abnormal [employer] [facility] Methadone Screen Ql (U) Negative NEGATIVE NG/ML [facility] Comment on above: Methadone Metabolite <100 ng/ml CUTOFF Methamphetamine (U) [Mass/Vol] Negative NEGATIVE NG/ML [facility] Comment on above: <500 ng/ml CUTOFF Opiates Screen Ql (U) Negative NEGATI VE NG/ML [facility] Comment on above: <300 ng/ml CUTOFF oxyCODONE Ql (U) Negative NEGATIVE NG/ML [facility] Comment on above: <100 ng/ml CUTOFF Tricyclic antidepressants Screen Ql (U) Positive Abnormal NEGATIVE NG/ML [facility] Comment on above: <1000 ng/ml CUTOFF *Unconfirmed Screening Result* Unconfirmed screening results are to be used only for medical treatment purposes. [employer] [facility] URINALYSIS, MACROon 03-30-20 24 Bilirubin Ql (U) Negative NEGATIVE [facility] Clarity (U) CLEAR CLEAR [facility] Color (U) YELLOW YELLOW [facility] Glucose Test strip (U) [Mass/Vol] Negative NEGATIVE mg/dl [facility] Hemoglobin Ql (U) TRACE-LYSED Abnormal NEGATIVE [facility] Ketones (U) [Mass/Vol] Negative NEGATIVE mg/dl [facility] Leukocyte esterase Test strip Ql (U) LARGE Abnormal NEGATIVE [facility] Nitrite Ql (U) Negative NEGATIVE [facility] pH (U) 7.0 [pH] 5.0 - 7.0 [facility] Protein Ql (U) Negative NEGATIVE mg/dl [facility] Specific gravity (U) [Rel density] 1.010 1.010 - 1.025 [facility] Urobilinogen (U) [Mass/Vol] 0.2 mg/dL [facility] URINE CULTUREon 12-19-2023 Bacteria identified Cx Nom (U) SPECIMEN DESCRIPTION URINE - OTHER UA DIPSTICK LEUKOCYTE POSITIVE * Result Note: NITRITE NEGATIVE * CULTURE NO PATHOGENS ISOLATED * Result Note: Testing performed at [place] [address] * REPORT STATUS 12/21/2023 * Result Note: FINAL * Normal [facility] Comment on above: Performed By: #### A URNC #### Testing performed at [address] [address] Testing performed at [address] [address] URINE MACROSCOPICon 12-19-19 24 Bilirubin Ql (U) Negative Normal NEGATIVE [facility] Comment on above: Performed By: #### U GERARDO, RTOX, UMAC #### Testing performed at [address] [address] Clarity (U) CLEAR Normal CLEAR [facility] Comment on above: Performed By: #### U GERARDO, RTOX, UMAC #### Testing performed at [address] [address] Color (U) YELLOW Normal YELLOW [facility] Comment on above: Performed By: #### U GERARDO, RTOX, UMAC #### Testing performed at [address] [address] Glucose Ql (U) Negative Normal NEGATIVE [facility] Comment on above: Performed By: #### U GERARDO, RTOX, UMAC #### Testing performed at [address] [address] pH (U) 7.0 [pH] Normal 5.0-7.0 [facility] Comment on above: Performed By: #### U GERARDO, RTOX, UMAC #### Testing performed at [address] [address] URINE HEMOGLOBIN TRACE-LYSED Abnormal NEGATIVE [facility] Comment on above: Performed By: #### U GERARDO, RTOX, UMAC #### Testing performed at [address] [address] URINE KETONE Negative Normal NEGATIVE [facility] Comment on above: Performed By: #### U GERARDO, RTOX, UMAC #### Testing performed at [address] [address] URINE LEUKOTEST LARGE Abnormal NEGATIVE [facility] Comment on above: Performed By: #### U GERARDO, RTOX, UMAC #### Testing performed at [address] [address] URINE NITRATES Negative Normal NEGATIVE [facility] Comment on above: Performed By: #### U GERARDO, RTOX, UMAC #### Testing performed at [address] [address] URINE SPEC GRAVITY 1.010 Normal 1.010-1.025 [facility] Comment on above: Performed By: #### U GERARDO, RTOX, UMAC #### Testing performed at [address] [address] URINE TOTAL PROTEIN Negative Normal NEGATIVE [facility] Comment on above: Performed By: #### U GERARDO, RTOX, UMAC #### Testing performed at [address] [address] Urobilinogen Qn (U) 0.2 {Samuel'U}/dL Normal 0.2-1.0 [facility] Comment on above: Performed By: #### U GERARDO, RTOX, UMAC #### Testing performed at [address] [address] URINE MICROSCOPICon 03-30-20 24 BACTERIA 1+ Abnormal NEGATIVE [facility] Comment on above: Performed By: #### U GERARDO, RTOX, UMAC #### Testing performed at [address] [address] CASTS NONE Normal NONE [facility] Comment on above: Performed By: #### U GERARDO, RTOX, UMAC #### Testing performed at [address] [address] CRYSTAL NONE Normal NONE [facility] Comment on above: Performed By: #### U GERARDO, RTOX, UMAC #### Testing performed at [address] [address] Epithelial cells LM Ql (Urine sed) 1 TO 5 Normal [facility] Comment on above: Performed By: #### U GERARDO, RTOX, UMAC #### Testing performed at [address] [address] Mucus Ql (Urine sed) Negative Normal NEGATIVE [facility] Comment on above: Performed By: #### U GERARDO, RTOX, UMAC #### Testing performed at [address] [address] URINE COMMENT REFLEX CULTURE PER ESTABLISHED CRITERIA. Normal [facility] Comment on above: Performed By: #### U GERARDO, RTOX, UMAC #### Testing performed at [address] [address] URINE RBC'S 1 TO 5 Normal NEGATIVE [facility] Comment on above: Performed By: #### U GERARDO, RTOX, UMAC #### Testing performed at [address] [address] URINE WBC'S 1 TO 5 Normal NEGATIVE [facility] Comment on above: Performed By: #### U GERARDO, RTOX, UMAC #### Testing performed at [address] [address] Bacteria LM.HPF (Urine sed) [#/Area] 1+ Abnormal NEGATIVE [facility] Casts LM.LPF (Urine sed) [#/Area] NONE NONE /LPF [facility] Crystals LM Nom (Urine sed) NONE NONE [facility] Epithelial cells LM Ql (Urine sed) 1 TO 5 /HPF [facility] Mucus Ql (Urine sed) Negative NEGATIVE [facility] RBC LM.HPF (Urine sed) [#/Area] 1 TO 5 NEGATIVE /HPF [facility] Urine sediment comments LM Mg (Urine sed) REFLEX CULTURE PER ESTABLISHED CRITERIA. [facility] WBC LM.HPF (Urine sed) [#/Area] 1 TO 5 NEGATIVE /HPF [facility] ALDOSTERONEon 05-28-2023 ALDOSTERONE 4.7 Normal [facility] Comment on above: Result Comment: Refe rence range: 0.0 to 30.0 Unit: ng/dL (NOTE) This test was developed and its performance characteristics determined by [facility]. It has not been cleared or approved by the Food and Drug Administration. PERFORMED AT [facility] Performed By: #### U GERARDO, RTOX, UMAC #### Testing performed at [address] [address] ACTH, PLASMAon 05-27-2023 ACTH, PLASMA 26.1 Normal [facility] Comment on above: Result Comment: ACTH reference interval for samples collected between 7 and 10 AM. Reference range: 7.2 to 63.3 Unit: pg/mL PERFORMED AT [facility] Performed By: #### L ACTH #### Testing performed at [facility] [address] [place] [address] [place] [address] HCV RNA KRANTHI QUAL RFX TO RANDELL Ton 05-27-2023 HCV RNA, QUANT Not detected [facility] Comment on above: Result Comment: No e vidence of active HCV infection. Unit: IU/mL Performed By: #### U GERARDO, RTOX, UMAC #### Testing performed at [address] [address] TEST INFORMATION Comment Normal [facility] Comment on above: Result Comment: (NOT E) The quantitative range of this assay is 15 IU/mL to 100 million IU/mL. PERFORMED AT [facility] Performed By: #### U GERARDO, RTOX, UMAC #### Testing performed at [address] [address] RENIN ACTIVITY,PLASMAon RENIN 0.262 Normal [facility] Comment on above: Result Comment: Refe rence range: 0.167 to 5.380 Unit: ng/mL/hr (NOTE) This test was developed and its performance characteristics determined by [facility]. It has not been cleared or approved by the Food and Drug Administration. PERFORMED AT [facility] Performed By: #### U GERARDO, RTOX, UMAC #### Testing performed at [address] [address] CBCon 05-26-2023 ABSOLUTE BAS 0.0 10*3/uL Normal 0.0-0.2 [facility] Comment on above: Performed By: #### U GERARDO, RTOX, UMAC #### Testing performed at [address] [address] ABSOLUTE EOS 0.4 10*3/uL Normal 0.0-0.7 [facility] Comment on above: Performed By: #### U GERARDO, RTOX, UMAC #### Testing performed at [address] [address] ABSOLUTE NEUTROPHIL COUNT 2.6 10*3/uL Normal 1.4-6.5 [facility] Comment on above: Performed By: #### U GERARDO, RTOX, UMAC #### Testing performed at [address] [address] Basophils/100 WBC (Bld) 0.5 % Normal 0.0-2.0 [facility] Comment on above: Performed By: #### U GERARDO, RTOX, UMAC #### Testing performed at [address] [address] DTYPE AUTO DIFF Normal [facility] Comment on above: Performed By: #### U GERARDO, RTOX, UMAC #### Testing performed at [address] [address] Eosinophils/100 WBC (Bld) 9.0 % Normal 0.0-11.0 [facility] Comment on above: Performed By: #### U GERARDO, RTOX, UMAC #### Testing performed at [address] [address] Lymphocytes (Bld) [#/Vol] 1.3 10*3/uL Normal 1.2-3.4 [facility] Comment on above: Performed By: #### U GERARDO, RTOX, UMAC #### Testing performed at [address] [address] Lymphocytes/100 WBC (Bld) 27.2 % Normal 20.0-55.0 [facility] Comment on above: Performed By: #### U GERARDO, RTOX, UMAC #### Testing performed at [address] [address] Monocytes (Bld) [#/Vol] 0.5 10*3/uL Normal 0.0-0.7 [facility] Comment on above: Performed By: #### U GERARDO, RTOX, UMAC #### Testing performed at [address] [address] Monocytes/100 WBC (Bld) 9.6 % Normal 0.0-10.0 [facility] Comment on above: Performed By: #### U GERARDO, RTOX, UMAC #### Testing performed at [address] [address] Neutrophils/100 WBC (Bld) 53.7 % Normal 37.0-75.0 [facility] Comment on above: Performed By: #### U GERARDO, RTOX, UMAC #### Testing performed at [address] [address] Erythrocyte distribution width (RBC) [Ratio] 13.4 % Normal 11.5-14.5 [facility] Comment on above: Performed By: #### U GERARDO, RTOX, UMAC #### Testing performed at [address] [address] Hematocrit (Bld) [Volume fraction] 40.6 % Normal 36.0-48.0 [facility] Comment on above: Performed By: #### U GERARDO, RTOX, UMAC #### Testing performed at [address] [address] Hemoglobin (Bld) [Mass/Vol] 13.9 g/dL Normal 12.0-16.0 [facility] Comment on above: Performed By: #### U GERARDO, RTOX, UMAC #### Testing performed at [address] [address] MCH (RBC) [Entitic mass] 31.0 pg Normal 26.0-35.0 [facility] Comment on above: Performed By: #### U GERARDO, RTOX, UMAC #### Testing performed at [address] [address] MCHC (RBC) [Mass/Vol] 34.3 g/dL Normal 27.0-37.0 [facility] Comment on above: Performed By: #### U GERARDO, RTOX, UMAC #### Testing performed at [address] [address] MCV (RBC) [Entitic vol] 90.4 fL Normal 80.0-100.0 [facility] Comment on above: Performed By: #### U GERARDO, RTOX, UMAC #### Testing performed at [address] [address] Platelet mean volume (Bld) [Entitic vol] 9.4 fL Normal 7.4-11.0 [facility] Comment on above: Performed By: #### U GERARDO, RTOX, UMAC #### Testing performed at [address] [address] Platelets (Bld) [#/Vol] 111 10*3/uL Low 130-400 [facility] Comment on above: Performed By: #### U GERARDO, RTOX, UMAC #### Testing performed at [address] [address] RBC (Bld) [#/Vol] 4.49 10*6/uL Normal 4.0-5.4 [facility] Comment on above: Performed By: #### U GERARDO, RTOX, UMAC #### Testing performed at [address] [address] WBC (Bld) [#/Vol] 4.8 10*3/uL Normal 3.6-11.0 [facility] Comment on above: Performed By: #### U GERARDO, RTOX, UMAC #### Testing performed at [address] [address] CBC, EDIF, PLATELETon 2022 ABSOLUTE BASOPHIL COUNT 0.0 10*3/uL 0.0 - 0.2 10*3/uL [facility] Basophils/100 WBC (Bld) 0.5 % 0.0 - 2.0 % [facility] Differential cell count method Nom (Bld) AUTO DIFF % [facility] Eosinophils (Bld) [#/Vol] 0.4 10*3/uL 0.0 - 0.7 10*3/uL [facility] Eosinophils/100 WBC (Bld) 9.0 % 0.0 - 11.0 % [facility] Erythrocyte distribution width (RBC) [Ratio] 13.4 % 11.5 - 14.5 % [facility] Hematocrit (Bld) [Volume fraction] 40.6 % 36.0 - 48.0 % [facility] Hemoglobin (Bld) [Mass/Vol] 13.9 g/dL [facility] Interpretation and review of laboratory results Abnormal [facility] Lymphocytes (Bld) [#/Vol] 1.3 10*3/uL 1.2 - 3.4 10*3/uL [facility] Lymphocytes/100 WBC (Bld) 27.2 % 20.0 - 55.0 % [facility] MCH (RBC) [Entitic mass] 31.0 pg 26.0 - 35.0 PG [facility] MCHC (RBC) [Mass/Vol] 34.3 g/dL [facility] MCV (RBC) [Entitic vol] 90.4 fL [facility] Monocytes (Bld) [#/Vol] 0.5 10*3/uL 0.0 - 0.7 10*3/uL [facility] Monocytes/100 WBC (Bld) 9.6 % 0.0 - 10.0 % [facility] Neutrophils (Bld) [#/Vol] 2.6 10*3/uL 1.4 - 6.5 10*3/uL [facility] Neutrophils/100 WBC (Bld) 53.7 % 37.0 - 75.0 % [facility] Platelet mean volume (Bld) [Entitic vol] 9.4 fL [facility] Platelets (Bld) [#/Vol] 111 10*3/uL Low 130 - 400 10*3/uL [facility] RBC (Bld) [#/Vol] 4.49 10*6/uL 4.0 - 5.4 10*6/uL [facility] WBC (Bld) [#/Vol] 4.8 10*3/uL 3.6 - 11.0 10*3/uL [facility] MAGNESIUMon 05-26-2023 Magnesium [Mass/Vol] 2.1 mg/dL Normal 1.6-2.3 [facility] Comment on above: Performed By: #### U GERARDO, RTOX, UMAC #### Testing performed at [facility] [address] [place] [address] Magnesium [Mass/Vol] 2.1 mg/dL [facility] No Panel Informationon 05-26 [facility] RENAL FUNCTION PANELon 05-26 Albumin [Mass/Vol] 3.8 G/dl 3.5 - 5.0 G/dl [facility] Calcium [Mass/Vol] 9.0 mg/dL [facility] Chloride [Moles/Vol] 104 mmol/L [facility] Comment on above: Please note: Triglyc eride levels of 600mg/dL or higher may positively bias chloride results by approximately 2.1 mmol CO2 [Moles/Vol] 28 mmol/L [facility] Creatinine [Mass/Vol] 1.09 mg/dL [facility] GFR COMMENT Average GFR for 60-6 9 years old = 85. [facility] Comment on above: Chronic Kidney disea se, GFR = <60. Kidney failure, GFR = <15. The GFR estimate is not adjusted for extreme body surface area or acute process, nor has it been validated for women or ethnic groups other than and . GFR/1.73 sq M.predicted among blacks MDRD (S/P/Bld) [Vol rate/Area] 65 mL/min/{1.73_m2} ml/min/1.73sq .m [facility] GFR/1.73 sq M.predicted among non-blacks MDRD (S/P/Bld) [Vol rate/Area] 54 mL/min/{1.73_m2} ml/min/1.73sq .m [facility] Glucose post fast [Mass/Vol] 136 mg/dL High [facility] Comment on above: NORMAL <100 mg/dL PREDIABETES 101-126 mg/dL DIABETES 126 mg/dL or higher Interpretation and review of laboratory results Abnormal [facility] Phosphate [Mass/Vol] 5.6 mg/dL High [facility] Potassium [Moles/Vol] 3.3 mmol/L Low [facility] Sodium [Moles/Vol] 139 mmol/L [facility] Urea nitrogen [Mass/Vol] 25 mg/dL High [facility] RENAL PANEL,FASTINGon 2022 ALBUMIN 3.8 G/dl Normal 3.5-5.0 [facility] Comment on above: Performed By: #### U GERARDO, RTOX, UMAC #### Testing performed at [address] [address] Calcium [Mass/Vol] 9.0 mg/dL Normal 8.4-10.2 [facility] Comment on above: Performed By: #### U GERARDO, RTOX, UMAC #### Testing performed at [address] [address] Chloride [Moles/Vol] 104 mmol/L Normal 98-107 [facility] Comment on above: Result Comment: Hilary diaz note: Triglyceride levels of 600mg/dL or higher may positively bias chloride results by approximately 2.1 mmol Performed By: #### U GERARDO, RTOX, UMAC #### Testing performed at [address] [address] CO2 [Moles/Vol] 28 mmol/L Normal 22-30 [facility] Comment on above: Performed By: #### U GERARDO, RTOX, UMAC #### Testing performed at [address] [address] Creatinine [Mass/Vol] 1.09 mg/dL Normal 0.70-1.20 [facility] Comment on above: Performed By: #### U GERARDO, RTOX, UMAC #### Testing performed at [address] [address] EST. GFR, 65 ml/min/1.73sq.m [facility] Comment on above: Performed By: #### U GERARDO, RTOX, UMAC #### Testing performed at [address] [address] EST. GFR,Non 54 ml/min/1.73sq.m [facility] Comment on above: Performed By: #### U GERARDO, RTOX, UMAC #### Testing performed at [address] [address] GFR Information Average GFR for 60-6 9 years old = 85. Normal [facility] Comment on above: Result Comment: Herb Digger romelia Kidney disease, GFR = <60. Kidney failure, GFR = <15. The GFR estimate is not adjusted for extreme body surface area or acute process, nor has it been validated for women or ethnic groups other than and . Performed By: #### U GERARDO, RTOX, UMAC #### Testing performed at [address] [address] Glucose [Mass/Vol] 136 mg/dL High 70-100 [facility] Comment on above: Result Comment: NORMAL <100 mg/dL PREDIABETES 101-126 mg/dL DIABETES 126 mg/dL or higher Performed By: #### U GERARDO, RTOX, UMAC #### Testing performed at [address] [address] PHOSPHOROUS 5.6 MG/DL High 2.5-4.5 [facility] Comment on above: Performed By: #### U GERARDO, RTOX, UMAC #### Testing performed at [address] [address] Potassium [Moles/Vol] 3.3 mmol/L Low 3.5-5.1 [facility] Comment on above: Performed By: #### U GERARDO, RTOX, UMAC #### Testing performed at [address] [address] Sodium [Moles/Vol] 139 mmol/L Normal 137-145 [facility] Comment on above: Performed By: #### U GERARDO, RTOX, UMAC #### Testing performed at [address] [address] Urea nitrogen [Mass/Vol] 25 mg/dL High 7-20 [facility] Comment on above: Performed By: #### U GERARDO, RTOX, UMAC #### Testing performed at [address] [address] CBCon 05-25-2023 ABSOLUTE BAS 0.0 10*3/uL Normal 0.0-0.2 [facility] Comment on above: Performed By: #### U GERARDO, RTOX, UMAC #### Testing performed at [address] [address] ABSOLUTE EOS 0.2 10*3/uL Normal 0.0-0.7 [facility] Comment on above: Performed By: #### U GERARDO, RTOX, UMAC #### Testing performed at [address] [address] ABSOLUTE NEUTROPHIL COUNT 2.7 10*3/uL Normal 1.4-6.5 [facility] Comment on above: Performed By: #### U GERARDO, RTOX, UMAC #### Testing performed at [address] [address] Basophils/100 WBC (Bld) 0.5 % Normal 0.0-2.0 [facility] Comment on above: Performed By: #### U GERARDO, RTOX, UMAC #### Testing performed at [address] [address] DTYPE AUTO DIFF Normal [facility] Comment on above: Performed By: #### U GERARDO, RTOX, UMAC #### Testing performed at [address] [address] Eosinophils/100 WBC (Bld) 4.9 % Normal 0.0-11.0 [facility] Comment on above: Performed By: #### U GERARDO, RTOX, UMAC #### Testing performed at [address] [address] Lymphocytes (Bld) [#/Vol] 1.2 10*3/uL Normal 1.2-3.4 [facility] Comment on above: Performed By: #### U GERARDO, RTOX, UMAC #### Testing performed at [address] [address] Lymphocytes/100 WBC (Bld) 25.3 % Normal 20.0-55.0 [facility] Comment on above: Performed By: #### U GERARDO, RTOX, UMAC #### Testing performed at [address] [address] Monocytes (Bld) [#/Vol] 0.4 10*3/uL Normal 0.0-0.7 [facility] Comment on above: Performed By: #### U GERARDO, RTOX, UMAC #### Testing performed at [address] [address] Monocytes/100 WBC (Bld) 9.6 % Normal 0.0-10.0 [facility] Comment on above: Performed By: #### U GERARDO, RTOX, UMAC #### Testing performed at [address] [address] Neutrophils/100 WBC (Bld) 59.7 % Normal 37.0-75.0 [facility] Comment on above: Performed By: #### U GEARRDO, RTOX, UMAC #### Testing performed at [address] [address] Erythrocyte distribution width (RBC) [Ratio] 13.0 % Normal 11.5-14.5 [facility] Comment on above: Performed By: #### U GERARDO, RTOX, UMAC #### Testing performed at [address] [address] Hematocrit (Bld) [Volume fraction] 42.2 % Normal 36.0-48.0 [facility] Comment on above: Performed By: #### U GERARDO, RTOX, UMAC #### Testing performed at [address] [address] Hemoglobin (Bld) [Mass/Vol] 14.5 g/dL Normal 12.0-16.0 [facility] Comment on above: Performed By: #### U GERARDO, RTOX, UMAC #### Testing performed at [address] [address] MCH (RBC) [Entitic mass] 31.0 pg Normal 26.0-35.0 [facility] Comment on above: Performed By: #### U GERARDO, RTOX, UMAC #### Testing performed at [address] [address] MCHC (RBC) [Mass/Vol] 34.3 g/dL Normal 27.0-37.0 [facility] Comment on above: Performed By: #### U GERARDO, RTOX, UMAC #### Testing performed at [address] [address] MCV (RBC) [Entitic vol] 90.4 fL Normal 80.0-100.0 [facility] Comment on above: Performed By: #### U GERARDO, RTOX, UMAC #### Testing performed at [address] [address] Platelet mean volume (Bld) [Entitic vol] 9.2 fL Normal 7.4-11.0 [facility] Comment on above: Performed By: #### U GERARDO, RTOX, UMAC #### Testing performed at [address] [address] Platelets (Bld) [#/Vol] 105 10*3/uL Low 130-400 [facility] Comment on above: Performed By: #### U GERARDO, RTOX, UMAC #### Testing performed at [address] [address] RBC (Bld) [#/Vol] 4.67 10*6/uL Normal 4.0-5.4 [facility] Comment on above: Performed By: #### U GERARDO, RTOX, UMAC #### Testing performed at [address] [address] WBC (Bld) [#/Vol] 4.6 10*3/uL Normal 3.6-11.0 [facility] Comment on above: Performed By: #### U GERARDO, RTOX, UMAC #### Testing performed at [address] [address] CBC, EDIF, PLATELETon 2022 ABSOLUTE BASOPHIL COUNT 0.0 10*3/uL 0.0 - 0.2 10*3/uL [facility] Basophils/100 WBC (Bld) 0.5 % 0.0 - 2.0 % [facility] Differential cell count method Nom (Bld) AUTO DIFF % [facility] Eosinophils (Bld) [#/Vol] 0.2 10*3/uL 0.0 - 0.7 10*3/uL [facility] Eosinophils/100 WBC (Bld) 4.9 % 0.0 - 11.0 % [facility] Erythrocyte distribution width (RBC) [Ratio] 13.0 % 11.5 - 14.5 % [facility] Hematocrit (Bld) [Volume fraction] 42.2 % 36.0 - 48.0 % [facility] Hemoglobin (Bld) [Mass/Vol] 14.5 g/dL [facility] Interpretation and review of laboratory results Abnormal [facility] Lymphocytes (Bld) [#/Vol] 1.2 10*3/uL 1.2 - 3.4 10*3/uL [facility] Lymphocytes/100 WBC (Bld) 25.3 % 20.0 - 55.0 % [facility] MCH (RBC) [Entitic mass] 31.0 pg 26.0 - 35.0 PG [facility] MCHC (RBC) [Mass/Vol] 34.3 g/dL [facility] MCV (RBC) [Entitic vol] 90.4 fL [facility] Monocytes (Bld) [#/Vol] 0.4 10*3/uL 0.0 - 0.7 10*3/uL [facility] Monocytes/100 WBC (Bld) 9.6 % 0.0 - 10.0 % [facility] Neutrophils (Bld) [#/Vol] 2.7 10*3/uL 1.4 - 6.5 10*3/uL [facility] Neutrophils/100 WBC (Bld) 59.7 % 37.0 - 75.0 % [facility] Platelet mean volume (Bld) [Entitic vol] 9.2 fL [facility] Platelets (Bld) [#/Vol] 105 10*3/uL Low 130 - 400 10*3/uL [facility] RBC (Bld) [#/Vol] 4.67 10*6/uL 4.0 - 5.4 10*6/uL [facility] WBC (Bld) [#/Vol] 4.6 10*3/uL 3.6 - 11.0 10*3/uL [facility] CMP FASTINGon 05-25-2023 A:G RATIO 1.7 RATIO Normal [facility] Comment on above: Performed By: #### U GERARDO, RTOX, UMAC #### Testing performed at [address] [address] ALBUMIN 3.9 G/dl Normal 3.5-5.0 [facility] Comment on above: Performed By: #### U GERARDO, RTOX, UMAC #### Testing performed at [address] [address] ALP [Catalytic activity/Vol] 70 U/L Normal 38-126 [facility] Comment on above: Performed By: #### U GERARDO, RTOX, UMAC #### Testing performed at [address] [address] ALT [Catalytic activity/Vol] 52 U/L High <35 [facility] Comment on above: Performed By: #### U GERARDO, RTOX, UMAC #### Testing performed at [address] [address] AST [Catalytic activity/Vol] 45 U/L High 14-36 [facility] Comment on above: Performed By: #### U GERARDO, RTOX, UMAC #### Testing performed at [address] [address] Bilirubin [Mass/Vol] 1.2 mg/dL Normal 0.2-1.3 [facility] Comment on above: Performed By: #### U GERARDO, RTOX, UMAC #### Testing performed at [address] [address] Calcium [Mass/Vol] 8.7 mg/dL Normal 8.4-10.2 [facility] Comment on above: Performed By: #### U GERARDO, RTOX, UMAC #### Testing performed at [address] [address] Chloride [Moles/Vol] 102 mmol/L Normal 98-107 [facility] Comment on above: Result Comment: Hilary diaz note: Triglyceride levels of 600mg/dL or higher may positively bias chloride results by approximately 2.1 mmol Performed By: #### U GERARDO, RTOX, UMAC #### Testing performed at [address] [address] CO2 [Moles/Vol] 29 mmol/L Normal 22-30 [facility] Comment on above: Performed By: #### U GERARDO, RTOX, UMAC #### Testing performed at [address] [address] Creatinine [Mass/Vol] 0.91 mg/dL Normal 0.70-1.20 [facility] Comment on above: Performed By: #### U GERARDO, RTOX, UMAC #### Testing performed at [address] [address] EST. GFR, 81 ml/min/1.73sq.m [facility] Comment on above: Performed By: #### U GERARDO, RTOX, UMAC #### Testing performed at [address] [address] EST. GFR,Non 67 ml/min/1.73sq.m [facility] Comment on above: Performed By: #### U GERARDO, RTOX, UMAC #### Testing performed at [address] [address] GFR Information Average GFR for 60-6 9 years old = 85. Normal [facility] Comment on above: Result Comment: Herb Digger romelia Kidney disease, GFR = <60. Kidney failure, GFR = <15. The GFR estimate is not adjusted for extreme body surface area or acute process, nor has it been validated for women or ethnic groups other than and . Performed By: #### U GERARDO, RTOX, UMAC #### Testing performed at [address] [address] Glucose [Mass/Vol] 141 mg/dL High 70-100 [facility] Comment on above: Result Comment: NORMAL <100 mg/dL PREDIABETES 101-126 mg/dL DIABETES 126 mg/dL or higher Performed By: #### U GERARDO, RTOX, UMAC #### Testing performed at [address] [address] Potassium [Moles/Vol] 3.2 mmol/L Low 3.5-5.1 [facility] Comment on above: Performed By: #### U GERARDO, RTOX, UMAC #### Testing performed at [address] [address] Protein [Mass/Vol] 6.2 g/dL Low 6.3-8.2 [facility] Comment on above: Performed By: #### U GERARDO, RTOX, UMAC #### Testing performed at [address] [address] Sodium [Moles/Vol] 139 mmol/L Normal 137-145 [facility] Comment on above: Performed By: #### U GERARDO, RTOX, UMAC #### Testing performed at [address] [address] Urea nitrogen [Mass/Vol] 21 mg/dL High 7-20 [facility] Comment on above: Performed By: #### U GERARDO, RTOX, UMAC #### Testing performed at [address] [address] COMPREHENSIVE METABOLIC PANE José 05-25-2023 Albumin [Mass/Vol] 3.9 G/dl 3.5 - 5.0 G/dl [facility] Albumin/Globulin [Mass ratio] 1.7 {ratio} RATIO [facility] ALP [Catalytic activity/Vol] 70 U/L [facility] ALT [Catalytic activity/Vol] 52 U/L High NINF [facility] AST [Catalytic activity/Vol] 45 U/L High [facility] Bilirubin [Mass/Vol] 1.2 mg/dL [facility] Calcium [Mass/Vol] 8.7 mg/dL [facility] Chloride [Moles/Vol] 102 mmol/L [facility] Comment on above: Please note: Triglyc eride levels of 600mg/dL or higher may positively bias chloride results by approximately 2.1 mmol CO2 [Moles/Vol] 29 mmol/L [facility] Creatinine [Mass/Vol] 0.91 mg/dL [facility] GFR COMMENT Average GFR for 60-6 9 years old = 85. [facility] Comment on above: Chronic Kidney disea se, GFR = <60. Kidney failure, GFR = <15. The GFR estimate is not adjusted for extreme body surface area or acute process, nor has it been validated for women or ethnic groups other than and . GFR/1.73 sq M.predicted among blacks MDRD (S/P/Bld) [Vol rate/Area] 81 mL/min/{1.73_m2} ml/min/1.73sq .m [facility] GFR/1.73 sq M.predicted among non-blacks MDRD (S/P/Bld) [Vol rate/Area] 67 mL/min/{1.73_m2} ml/min/1.73sq .m [facility] Glucose post fast [Mass/Vol] 141 mg/dL High [facility] Comment on above: NORMAL <100 mg/dL PREDIABETES 101-126 mg/dL DIABETES 126 mg/dL or higher Potassium [Moles/Vol] 3.2 mmol/L Low [facility] Protein [Mass/Vol] 6.2 g/dL Low [facility] Sodium [Moles/Vol] 139 mmol/L [facility] Urea nitrogen [Mass/Vol] 21 mg/dL High [facility] MAGNESIUMon 05-25-2023 Magnesium [Mass/Vol] 1.9 mg/dL Normal 1.6-2.3 [facility] Comment on above: Performed By: #### U GERARDO, RTOX, UMAC #### Testing performed at [place] [id number] Magnesium [Mass/Vol] 1.9 mg/dL [facility] No Panel Informationon 05-25 Interpretation and review of laboratory results Abnormal [facility] PHOSPHATE, INORGANICon 05-25 Phosphate [Mass/Vol] 4.8 mg/dL High [facility] PHOSPHOROUSon 05-25-2023 PHOSPHOROUS 4.8 MG/DL High 2.5-4.5 [facility] Comment on above: Performed By: #### U GERARDO, RTOX, UMAC #### Testing performed at [address] [address] [place] RENAL ARTERIESon 05-25-20 US RENAL ARTERIES [...] of renal cortical thinning or hydronephrosis. Normal [facility] US Renal arteryon 05-25-2023 IMPRESSION: 1. Bilaterally [...] evidence of renal cortical thinning or hydronephrosis. [facility] US Renal arteryOrdered By: Moisés Gilman on 05-25-2023 [facility] Work Phone: CBCon 05-24-2023 Basophils/100 WBC (Bld) 1 % Normal 0.0-2.0 [facility] Comment on above: Performed By: #### U GERARDO, RTOX, UMAC #### Testing performed at [address] [address] DTYPE AUTO DIFF Normal [facility] Comment on above: Performed By: #### U GERARDO, RTOX, UMAC #### Testing performed at [address] [address] Eosinophils/100 WBC (Bld) 5 % Normal 0.0-11.0 [facility] Comment on above: Performed By: #### U GERARDO, RTOX, UMAC #### Testing performed at [address] [address] Lymphocytes/100 WBC (Bld) 19 % Low 20.0-55.0 [facility] Comment on above: Performed By: #### U GERARDO, RTOX, UMAC #### Testing performed at [address] [address] Monocytes/100 WBC (Bld) 8 % Normal 0.0-10.0 [facility] Comment on above: Performed By: #### U GERARDO, RTOX, UMAC #### Testing performed at [address] [address] Neutrophils/100 WBC (Bld) 67 % Normal 37.0-75.0 [facility] Comment on above: Performed By: #### U GERARDO, RTOX, UMAC #### Testing performed at [address] [address] Erythrocyte distribution width (RBC) [Ratio] 13.4 % Normal 11.5-14.5 [facility] Comment on above: Performed By: #### U GERARDO, RTOX, UMAC #### Testing performed at [address] [address] Hematocrit (Bld) [Volume fraction] 44.4 % Normal 36.0-48.0 [facility] Comment on above: Performed By: #### U GERARDO, RTOX, UMAC #### Testing performed at [address] [address] Hemoglobin (Bld) [Mass/Vol] 14.9 g/dL Normal 12.0-16.0 [facility] Comment on above: Performed By: #### U GERARDO, RTOX, UMAC #### Testing performed at [address] [address] MCH (RBC) [Entitic mass] 30.5 pg Normal 26.0-35.0 [facility] Comment on above: Performed By: #### U GERARDO, RTOX, UMAC #### Testing performed at [address] [address] MCHC (RBC) [Mass/Vol] 33.4 g/dL Normal 27.0-37.0 [facility] Comment on above: Performed By: #### U GERARDO, RTOX, UMAC #### Testing performed at [address] [address] MCV (RBC) [Entitic vol] 91.1 fL Normal 80.0-100.0 [facility] Comment on above: Performed By: #### U GERARDO, RTOX, UMAC #### Testing performed at [address] [address] Platelet mean volume (Bld) [Entitic vol] 9.1 fL Normal 7.4-11.0 [facility] Comment on above: Performed By: #### U GERARDO, RTOX, UMAC #### Testing performed at [address] [address] Platelets (Bld) [#/Vol] 107 10*3/uL Low 130-400 [facility] Comment on above: Performed By: #### U GERARDO, RTOX, UMAC #### Testing performed at [address] [address] RBC (Bld) [#/Vol] 4.87 10*6/uL Normal 4.0-5.4 [facility] Comment on above: Performed By: #### U GERARDO, RTOX, UMAC #### Testing performed at [address] [address] WBC (Bld) [#/Vol] 4.5 10*3/uL Normal 3.6-11.0 [facility] Comment on above: Performed By: #### U GERARDO, RTOX, UMAC #### Testing performed at [address] [address] CBC, EDIF, PLATELETon 2022 Basophils/100 WBC (Bld) 1 % 0.0 - 2.0 % [facility] Differential cell count method Nom (Bld) AUTO DIFF % [facility] Eosinophils/100 WBC (Bld) 5 % 0.0 - 11.0 % [facility] Erythrocyte distribution width (RBC) [Ratio] 13.4 % 11.5 - 14.5 % [facility] Hematocrit (Bld) [Volume fraction] 44.4 % 36.0 - 48.0 % [facility] Hemoglobin (Bld) [Mass/Vol] 14.9 g/dL [facility] Interpretation and review of laboratory results Abnormal [facility] Lymphocytes/100 WBC (Bld) 19 % Low 20.0 - 55.0 % [facility] MCH (RBC) [Entitic mass] 30.5 pg 26.0 - 35.0 PG [facility] MCHC (RBC) [Mass/Vol] 33.4 g/dL [facility] MCV (RBC) [Entitic vol] 91.1 fL [facility] Monocytes/100 WBC (Bld) 8 % 0.0 - 10.0 % [facility] Neutrophils/100 WBC (Bld) 67 % 37.0 - 75.0 % [facility] Platelet mean volume (Bld) [Entitic vol] 9.1 fL [facility] Platelets (Bld) [#/Vol] 107 10*3/uL Low 130 - 400 10*3/uL [facility] RBC (Bld) [#/Vol] 4.87 10*6/uL 4.0 - 5.4 10*6/uL [facility] WBC (Bld) [#/Vol] 4.5 10*3/uL 3.6 - 11.0 10*3/uL [facility] CMP FASTINGon 05-24-2023 A:G RATIO 1.8 RATIO Normal [facility] Comment on above: Performed By: #### U GERARDO, RTOX, UMAC #### Testing performed at [address] [address] ALBUMIN 4.0 G/dl Normal 3.5-5.0 [facility] Comment on above: Performed By: #### U GERARDO, RTOX, UMAC #### Testing performed at [address] [address] ALP [Catalytic activity/Vol] 81 U/L Normal 38-126 [facility] Comment on above: Performed By: #### U GERARDO, RTOX, UMAC #### Testing performed at [address] [address] ALT [Catalytic activity/Vol] 55 U/L High <35 [facility] Comment on above: Performed By: #### U GERARDO, RTOX, UMAC #### Testing performed at [address] [address] AST [Catalytic activity/Vol] 44 U/L High 14-36 [facility] Comment on above: Performed By: #### U GERARDO, RTOX, UMAC #### Testing performed at [address] [address] Bilirubin [Mass/Vol] 1.2 mg/dL Normal 0.2-1.3 [facility] Comment on above: Performed By: #### U GERARDO, RTOX, UMAC #### Testing performed at [address] [address] Calcium [Mass/Vol] 9.1 mg/dL Normal 8.4-10.2 [facility] Comment on above: Performed By: #### U GERARDO, RTOX, UMAC #### Testing performed at [address] [address] Chloride [Moles/Vol] 104 mmol/L Normal 98-107 [facility] Comment on above: Result Comment: Hilary diaz note: Triglyceride levels of 600mg/dL or higher may positively bias chloride results by approximately 2.1 mmol Performed By: #### U GERARDO, RTOX, UMAC #### Testing performed at [address] [address] CO2 [Moles/Vol] 26 mmol/L Normal 22-30 [facility] Comment on above: Performed By: #### U GERARDO, RTOX, UMAC #### Testing performed at [address] [address] Creatinine [Mass/Vol] 0.85 mg/dL Normal 0.70-1.20 [facility] Comment on above: Performed By: #### U GERARDO, RTOX, UMAC #### Testing performed at [address] [address] EST. GFR, 87 ml/min/1.73sq.m Normal [facility] Comment on above: Performed By: #### U GERARDO, RTOX, UMAC #### Testing performed at [address] [address] EST. GFR,Non 72 ml/min/1.73sq.m Normal [facility] Comment on above: Performed By: #### U GERARDO, RTOX, UMAC #### Testing performed at [address] [address] GFR Information Average GFR for 60-6 9 years old = 85. Normal [facility] Comment on above: Result Comment: Herb Digger romelia Kidney disease, GFR = <60. Kidney failure, GFR = <15. The GFR estimate is not adjusted for extreme body surface area or acute process, nor has it been validated for women or ethnic groups other than and . Performed By: #### U GERARDO, RTOX, UMAC #### Testing performed at [address] [address] Glucose [Mass/Vol] 137 mg/dL High 70-100 [facility] Comment on above: Result Comment: NORMAL <100 mg/dL PREDIABETES 101-126 mg/dL DIABETES 126 mg/dL or higher Performed By: #### U GERARDO, RTOX, UMAC #### Testing performed at [address] [address] Potassium [Moles/Vol] 3.6 mmol/L Normal 3.5-5.1 [facility] Comment on above: Performed By: #### U GERARDO, RTOX, UMAC #### Testing performed at [address] [address] Protein [Mass/Vol] 6.2 g/dL Low 6.3-8.2 [facility] Comment on above: Performed By: #### U GERARDO, RTOX, UMAC #### Testing performed at [address] [address] Sodium [Moles/Vol] 137 mmol/L Normal 137-145 [facility] Comment on above: Performed By: #### U GERARDO, RTOX, UMAC #### Testing performed at [address] [address] Urea nitrogen [Mass/Vol] 17 mg/dL Normal 7-20 [facility] Comment on above: Performed By: #### U GERARDO, RTOX, UMAC #### Testing performed at [facility] [address] [place] [address] COMPREHENSIVE METABOLIC PANE José 05-24-2023 Albumin [Mass/Vol] 4.0 G/dl 3.5 - 5.0 G/dl [facility] Albumin/Globulin [Mass ratio] 1.8 {ratio} RATIO [facility] ALP [Catalytic activity/Vol] 81 U/L [facility] ALT [Catalytic activity/Vol] 55 U/L High NINF [facility] AST [Catalytic activity/Vol] 44 U/L High [facility] Bilirubin [Mass/Vol] 1.2 mg/dL [facility] Calcium [Mass/Vol] 9.1 mg/dL [facility] Chloride [Moles/Vol] 104 mmol/L [facility] Comment on above: Please note: Triglyc eride levels of 600mg/dL or higher may positively bias chloride results by approximately 2.1 mmol CO2 [Moles/Vol] 26 mmol/L [facility] Creatinine [Mass/Vol] 0.85 mg/dL [facility] GFR COMMENT Average GFR for 60-6 9 years old = 85. [facility] Comment on above: Chronic Kidney disea se, GFR = <60. Kidney failure, GFR = <15. The GFR estimate is not adjusted for extreme body surface area or acute process, nor has it been validated for women or ethnic groups other than and . GFR/1.73 sq M.predicted among blacks MDRD (S/P/Bld) [Vol rate/Area] 87 mL/min/{1.73_m2} ml/min/1.73sq .m [facility] GFR/1.73 sq M.predicted among non-blacks MDRD (S/P/Bld) [Vol rate/Area] 72 mL/min/{1.73_m2} ml/min/1.73sq .m [facility] Glucose post fast [Mass/Vol] 137 mg/dL High [facility] Comment on above: NORMAL <100 mg/dL PREDIABETES 101-126 mg/dL DIABETES 126 mg/dL or higher Potassium [Moles/Vol] 3.6 mmol/L [facility] Protein [Mass/Vol] 6.2 g/dL Low [facility] Sodium [Moles/Vol] 137 mmol/L [facility] Urea nitrogen [Mass/Vol] 17 mg/dL [facility] CORTISOLon 05-24-2023 CORTISOL 4.4 Low [facility] Comment on above: Result Comment: Refe rence range: 6.2 to 19.4 Unit: ug/dL (NOTE) Please Note: The reference interval and flagging for this test is for an AM collection. If this is a PM collection please use: Cortisol PM: 2.3-11.9 PERFORMED AT [facility] Performed By: #### U GERARDO RTSARTHAK, UMAC #### Testing performed at [address] [address] Cortisol [Mass/Vol] 4.4 ug/dL Low [facility] Comment on above: Reference range: 6.2 to 19.4 Unit: ug/dL (NOTE) Please Note: The reference interval and flagging for this test is for an AM collection. If this is a PM collection please use: Cortisol PM: 2.3-11.9 PERFORMED AT [facility] Interpretation and review of laboratory results Abnormal [facility] MAGNESIUMon 05-24-2023 Magnesium [Mass/Vol] 2.1 mg/dL Normal 1.6-2.3 [facility] Comment on above: Performed By: #### U GERARDO RTSARTHAK, UMAC #### Testing performed at [address] [address] Magnesium [Mass/Vol] 2.1 mg/dL [facility] No Panel Informationon 05-24 Interpretation and review of laboratory results Abnormal [facility] PHOSPHATE, INORGANICon 05-24 Phosphate [Mass/Vol] 5.9 mg/dL High [facility] PHOSPHOROUSon 05-24-2023 PHOSPHOROUS 5.9 MG/DL High 2.5-4.5 [facility] Comment on above: Performed By: #### U GERARDO, RTOX, UMAC #### Testing performed at [address] [address] 25 0H VITAMIN D LEVELon 25 0H VITAMIN D LEVEL 36.3 NG/ML Normal [facility] Comment on above: Result Comment: DEFICIENT <20 NG/ML INSUFFICIENT 20-<30 NG/ML SUFFICIENT 30-100 NG/ML POTENTIAL TOXICITY >100 NG/ML Performed By: #### V ITD ####Testing performed at [address] [address] CBCon 05-23-2023 ABSOLUTE BAS 0.0 10*3/uL Normal 0.0-0.2 [facility] Comment on above: Performed By: #### U GERARDO, RTOX, UMAC #### Testing performed at [address] [address] ABSOLUTE EOS 0.3 10*3/uL Normal 0.0-0.7 [facility] Comment on above: Performed By: #### U GERARDO, RTOX, UMAC #### Testing performed at [address] [address] ABSOLUTE NEUTROPHIL COUNT 2.5 10*3/uL Normal 1.4-6.5 [facility] Comment on above: Performed By: #### U GERARDO, RTOX, UMAC #### Testing performed at [address] [address] Basophils/100 WBC (Bld) 1.1 % Normal 0.0-2.0 [facility] Comment on above: Performed By: #### U GERARDO, RTOX, UMAC #### Testing performed at [address] [address] DTYPE AUTO DIFF Normal [facility] Comment on above: Performed By: #### U GERARDO, RTOX, UMAC #### Testing performed at [address] [address] Eosinophils/100 WBC (Bld) 6.6 % Normal 0.0-11.0 [facility] Comment on above: Performed By: #### U GERARDO, RTOX, UMAC #### Testing performed at [address] [address] Lymphocytes (Bld) [#/Vol] 1.2 10*3/uL Normal 1.2-3.4 [facility] Comment on above: Performed By: #### U GERARDO, RTOX, UMAC #### Testing performed at [address] [address] Lymphocytes/100 WBC (Bld) 27.6 % Normal 20.0-55.0 [facility] Comment on above: Performed By: #### U GERARDO, RTOX, UMAC #### Testing performed at [address] [address] Monocytes (Bld) [#/Vol] 0.3 10*3/uL Normal 0.0-0.7 [facility] Comment on above: Performed By: #### U GERARDO, RTOX, UMAC #### Testing performed at [address] [address] Monocytes/100 WBC (Bld) 7.6 % Normal 0.0-10.0 [facility] Comment on above: Performed By: #### U GERARDO, RTOX, UMAC #### Testing performed at [address] [address] Neutrophils/100 WBC (Bld) 57.1 % Normal 37.0-75.0 [facility] Comment on above: Performed By: #### U GERARDO, RTOX, UMAC #### Testing performed at [address] [address] Erythrocyte distribution width (RBC) [Ratio] 13.0 % Normal 11.5-14.5 [facility] Comment on above: Performed By: #### U GERARDO, RTOX, UMAC #### Testing performed at [address] [address] Hematocrit (Bld) [Volume fraction] 42.2 % Normal 36.0-48.0 [facility] Comment on above: Performed By: #### U GERARDO, RTOX, UMAC #### Testing performed at [address] [address] Hemoglobin (Bld) [Mass/Vol] 14.5 g/dL Normal 12.0-16.0 [facility] Comment on above: Performed By: #### U GERARDO, RTOX, UMAC #### Testing performed at [address] [address] MCH (RBC) [Entitic mass] 31.1 pg Normal 26.0-35.0 [facility] Comment on above: Performed By: #### U GERARDO, RTOX, UMAC #### Testing performed at [address] [address] MCHC (RBC) [Mass/Vol] 34.4 g/dL Normal 27.0-37.0 [facility] Comment on above: Performed By: #### U GERARDO, RTOX, UMAC #### Testing performed at [address] [address] MCV (RBC) [Entitic vol] 90.4 fL Normal 80.0-100.0 [facility] Comment on above: Performed By: #### U GERARDO, RTOX, UMAC #### Testing performed at [address] [address] Platelet mean volume (Bld) [Entitic vol] 9.3 fL Normal 7.4-11.0 [facility] Comment on above: Performed By: #### U GERARDO, RTOX, UMAC #### Testing performed at [address] [address] Platelets (Bld) [#/Vol] 109 10*3/uL Low 130-400 [facility] Comment on above: Performed By: #### U GERARDO, RTOX, UMAC #### Testing performed at [address] [address] RBC (Bld) [#/Vol] 4.67 10*6/uL Normal 4.0-5.4 [facility] Comment on above: Performed By: #### U GERARDO, RTOX, UMAC #### Testing performed at [address] [address] WBC (Bld) [#/Vol] 4.3 10*3/uL Normal 3.6-11.0 [facility] Comment on above: Performed By: #### U GERARDO, RTOX, UMAC #### Testing performed at [address] [address] CBC, EDIF, PLATELETon 2022 ABSOLUTE BASOPHIL COUNT 0.0 10*3/uL 0.0 - 0.2 10*3/uL [facility] Basophils/100 WBC (Bld) 1.1 % 0.0 - 2.0 % [facility] Differential cell count method Nom (Bld) AUTO DIFF % [facility] Eosinophils (Bld) [#/Vol] 0.3 10*3/uL 0.0 - 0.7 10*3/uL [facility] Eosinophils/100 WBC (Bld) 6.6 % 0.0 - 11.0 % [facility] Erythrocyte distribution width (RBC) [Ratio] 13.0 % 11.5 - 14.5 % [facility] Hematocrit (Bld) [Volume fraction] 42.2 % 36.0 - 48.0 % [facility] Hemoglobin (Bld) [Mass/Vol] 14.5 g/dL [facility] Interpretation and review of laboratory results Abnormal [facility] Lymphocytes (Bld) [#/Vol] 1.2 10*3/uL 1.2 - 3.4 10*3/uL [facility] Lymphocytes/100 WBC (Bld) 27.6 % 20.0 - 55.0 % [facility] MCH (RBC) [Entitic mass] 31.1 pg 26.0 - 35.0 PG [facility] MCHC (RBC) [Mass/Vol] 34.4 g/dL [facility] MCV (RBC) [Entitic vol] 90.4 fL [facility] Monocytes (Bld) [#/Vol] 0.3 10*3/uL 0.0 - 0.7 10*3/uL [facility] Monocytes/100 WBC (Bld) 7.6 % 0.0 - 10.0 % [facility] Neutrophils (Bld) [#/Vol] 2.5 10*3/uL 1.4 - 6.5 10*3/uL [facility] Neutrophils/100 WBC (Bld) 57.1 % 37.0 - 75.0 % [facility] Platelet mean volume (Bld) [Entitic vol] 9.3 fL [facility] Platelets (Bld) [#/Vol] 109 10*3/uL Low 130 - 400 10*3/uL [facility] RBC (Bld) [#/Vol] 4.67 10*6/uL 4.0 - 5.4 10*6/uL [facility] WBC (Bld) [#/Vol] 4.3 10*3/uL 3.6 - 11.0 10*3/uL [facility] CMP FASTINGon 05-23-2023 A:G RATIO 2.0 RATIO Normal [facility] Comment on above: Performed By: #### U GERARDO, RTOX, UMAC #### Testing performed at [address] [address] ALBUMIN 4.3 G/dl Normal 3.5-5.0 [facility] Comment on above: Performed By: #### U GERARDO, RTOX, UMAC #### Testing performed at [address] [address] ALP [Catalytic activity/Vol] 94 U/L Normal 38-126 [facility] Comment on above: Performed By: #### U GERARDO, RTOX, UMAC #### Testing performed at [address] [address] ALT [Catalytic activity/Vol] 57 U/L High <35 [facility] Comment on above: Performed By: #### U GERARDO, RTOX, UMAC #### Testing performed at [address] [address] AST [Catalytic activity/Vol] 48 U/L High 14-36 [facility] Comment on above: Performed By: #### U GERARDO, RTOX, UMAC #### Testing performed at [address] [address] Bilirubin [Mass/Vol] 0.9 mg/dL Normal 0.2-1.3 [facility] Comment on above: Performed By: #### U GERARDO, RTOX, UMAC #### Testing performed at [address] [address] Calcium [Mass/Vol] 8.9 mg/dL Normal 8.4-10.2 [facility] Comment on above: Performed By: #### U GERARDO, RTOX, UMAC #### Testing performed at [address] [address] Chloride [Moles/Vol] 106 mmol/L Normal 98-107 [facility] Comment on above: Result Comment: Hilary diaz note: Triglyceride levels of 600mg/dL or higher may positively bias chloride results by approximately 2.1 mmol Performed By: #### U GERARDO, RTOX, UMAC #### Testing performed at [address] [address] CO2 [Moles/Vol] 25 mmol/L Normal 22-30 [facility] Comment on above: Performed By: #### U GERARDO, RTOX, UMAC #### Testing performed at [address] [address] Creatinine [Mass/Vol] 0.70 mg/dL Normal 0.70-1.20 [facility] Comment on above: Performed By: #### U GERARDO, RTOX, UMAC #### Testing performed at [address] [address] EST. GFR, 109 ml/min/1.73sq.m [facility] Comment on above: Performed By: #### U GERARDO, RTOX, UMAC #### Testing performed at [address] [address] EST. GFR,Non 90 ml/min/1.73sq.m [facility] Comment on above: Performed By: #### U GERARDO, RTOX, UMAC #### Testing performed at [address] [address] GFR Information Average GFR for 60-6 9 years old = 85. Normal [facility] Comment on above: Result Comment: Herb Digger romelia Kidney disease, GFR = <60. Kidney failure, GFR = <15. The GFR estimate is not adjusted for extreme body surface area or acute process, nor has it been validated for women or ethnic groups other than and . Performed By: #### U GERARDO, RTOX, UMAC #### Testing performed at [address] [address] Glucose [Mass/Vol] 115 mg/dL High 70-100 [facility] Comment on above: Result Comment: NORMAL <100 mg/dL PREDIABETES 101-126 mg/dL DIABETES 126 mg/dL or higher Performed By: #### U GERARDO, RTOX, UMAC #### Testing performed at [address] [address] Potassium [Moles/Vol] 3.6 mmol/L Normal 3.5-5.1 [facility] Comment on above: Performed By: #### U GERARDO, RTOX, UMAC #### Testing performed at [address] [address] Protein [Mass/Vol] 6.5 g/dL Normal 6.3-8.2 [facility] Comment on above: Performed By: #### U GERARDO, RTOX, UMAC #### Testing performed at [address] [address] Sodium [Moles/Vol] 142 mmol/L Normal 137-145 [facility] Comment on above: Performed By: #### U GERARDO, RTOX, UMAC #### Testing performed at [address] [address] Urea nitrogen [Mass/Vol] 16 mg/dL Normal 7-20 [facility] Comment on above: Performed By: #### U GERARDO, RTOX, UMAC #### Testing performed at [address] [address] COMPREHENSIVE METABOLIC PANE José 05-23-2023 Albumin [Mass/Vol] 4.3 G/dl 3.5 - 5.0 G/dl [facility] Albumin/Globulin [Mass ratio] 2.0 {ratio} RATIO [facility] ALP [Catalytic activity/Vol] 94 U/L [facility] ALT [Catalytic activity/Vol] 57 U/L High [facility] AST [Catalytic activity/Vol] 48 U/L High [facility] Bilirubin [Mass/Vol] 0.9 mg/dL [facility] Calcium [Mass/Vol] 8.9 mg/dL [facility] Chloride [Moles/Vol] 106 mmol/L [facility] Comment on above: Please note: Triglyc eride levels of 600mg/dL or higher may positively bias chloride results by approximately 2.1 mmol CO2 [Moles/Vol] 25 mmol/L [facility] Creatinine [Mass/Vol] 0.70 mg/dL [facility] GFR COMMENT Average GFR for 60-6 9 years old = 85. [facility] Comment on above: Chronic Kidney disea se, GFR = <60. Kidney failure, GFR = <15. The GFR estimate is not adjusted for extreme body surface area or acute process, nor has it been validated for women or ethnic groups other than and . GFR/1.73 sq M.predicted among blacks MDRD (S/P/Bld) [Vol rate/Area] 109 mL/min/{1.73_m2} ml/min/1.73sq .m [facility] GFR/1.73 sq M.predicted among non-blacks MDRD (S/P/Bld) [Vol rate/Area] 90 mL/min/{1.73_m2} ml/min/1.73sq .m [facility] Glucose post fast [Mass/Vol] 115 mg/dL High [facility] Comment on above: NORMAL <100 mg/dL PREDIABETES 101-126 mg/dL DIABETES 126 mg/dL or higher Interpretation and review of laboratory results Abnormal [facility] Potassium [Moles/Vol] 3.6 mmol/L [facility] Protein [Mass/Vol] 6.5 g/dL [facility] Sodium [Moles/Vol] 142 mmol/L [facility] Urea nitrogen [Mass/Vol] 16 mg/dL [facility] HEMOGLOBIN A1Con 05-23-2023 Glucose [Mass/Vol] 97 mg/dL Normal [facility] Comment on above: Performed By: #### U GERARDO, RTOX, UMAC #### Testing performed at [address] [address] HbA1c (Bld) [Mass fraction] 5.0 % Normal 0-6 [facility] Comment on above: Result Comment: NORMAL <5.7% PREDIABETES 5.7-6.4% DIABETES 6.5% OR HIGHER Performed By: #### U GERARDO, RTOX, UMAC #### Testing performed at [address] [address] Glucose [Mass/Vol] 97 mg/dL [facility] HbA1c (Bld) [Mass fraction] 5.0 % 0 - 6 % [facility] Comment on above: NORMAL <5.7% PREDIABETES 5.7-6.4% DIABETES 6.5% OR HIGHER [facility] LIPID PANEL W CALCULATED LDL on 05-23-2023 Cholesterol [Mass/Vol] 228 mg/dL High [facility] Cholesterol in HDL [Mass/Vol] 43 mg/dL [facility] Cholesterol in LDL [Mass/Vol] 159 mg/dL MG/DL [facility] Cholesterol in VLDL [Mass/Vol] 26 mg/dL MG/DL [facility] Cholesterol.total/Cho lesterol in HDL [Mass ratio] 5.30 {ratio} RATIO [facility] Comment on above: RISK TOTAL/HDL RATIO MEN WOMEN 1/2 AVERAGE 3.43 3.27 AVERAGE 4.97 4.44 2X AVERAGE 9.55 7.05 3X AVERAGE 23.99 11.04 Interpretation and review of laboratory results Abnormal [facility] Triglyceride [Mass/Vol] 128 mg/dL [facility] LIPID PROFILEon 05-23-2023 Cholesterol [Mass/Vol] 228 mg/dL High 107-217 [facility] Comment on above: Performed By: #### L IP2 #### Testing performed at [address] [address] Cholesterol in HDL [Mass/Vol] 43 mg/dL Normal 33-75 [facility] Comment on above: Performed By: #### L IP2 #### Testing performed at [address] [address] Cholesterol in LDL [Mass/Vol] 159 mg/dL Normal [facility] Comment on above: Performed By: #### L IP2 #### Testing performed at [address] [address] Cholesterol in VLDL [Mass/Vol] 26 mg/dL Normal [facility] Comment on above: Performed By: #### L IP2 #### Testing performed at [address] [address] Cholesterol.total/Cho lesterol in HDL [Mass ratio] 5.30 {ratio} Normal [facility] Comment on above: Result Comment: RISK TOTAL/HDL RATIO MEN WOMEN 1/2 AVERAGE 3.43 3.27 AVERAGE 4.97 4.44 2X AVERAGE 9.55 7.05 3X AVERAGE 23.99 11.04 Performed By: #### L IP2 #### Testing performed at [address] [address] Triglyceride [Mass/Vol] 128 mg/dL Normal 0-150 [facility] Comment on above: Performed By: #### L IP2 #### Testing performed at [address] [address] MAGNESIUMon 05-23-2023 Magnesium [Mass/Vol] 2.2 mg/dL Normal 1.6-2.3 [facility] Comment on above: Performed By: #### U GERARDO, RTOX, UMAC #### Testing performed at [address] [address] Magnesium [Mass/Vol] 2.2 mg/dL [facility] MRSA SCREENon 05-23-2023 MRSA DNA KRANTHI+probe Ql (Unsp spec) Negative Normal NEGATIVE [facility] Comment on above: Performed By: #### M RSAST #### Testing performed at [address] [address] STAPH AUREUS SCREEN Positive Abnormal NEGATIVE [facility] Comment on above: Result Comment: TEST ING PERFORMED BY PCR Performed By: #### M RSAST #### Testing performed at [address] [address] No Panel Informationon 05-23 [facility] PHOSPHATE, INORGANICon 05-23 Interpretation and review of laboratory results Abnormal [facility] Phosphate [Mass/Vol] 6.2 mg/dL High [facility] PHOSPHOROUSon 05-23-2023 PHOSPHOROUS 6.2 MG/DL High 2.5-4.5 [facility] Comment on above: Performed By: #### U GERARDO, RTOX, UMAC #### Testing performed at [address] [address] PROTIMEon 05-23-2023 INR Coag (PPP) [Relative time] 0.94 {INR} Normal 0.85-1.10 [facility] Comment on above: Result Comment: 2.0-3.0 THERAPEUTIC RANGE 2.5-3.5 MECHANICAL VALVE RANGE Performed By: #### U GERARDO, RTOX, UMAC #### Testing performed at [address] [address] PT Coag (PPP) [Time] 12.7 s Normal 11.8-14.4 [facility] Comment on above: Performed By: #### U GERARDO, RTOX, UMAC #### Testing performed [address] [place] [address] PROTIME-INRon 05-23-2023 INR Coag (PPP) [Relative time] 0.94 {INR} 0.85 - 1.10 [facility] Comment on above: 2.0-3.0 THERAPEUTIC RANGE 2.5-3.5 MECHANICAL VALVE RANGE PT Coag (PPP) [Time] 12.7 [facility] SCREEN: MRSA ONLY, NARES (IS OLATION SCREEN)on 05-23-2023 Interpretation and review of laboratory results Abnormal [facility] MRSA isol Org specific cx Ql (Nose) Negative NEGATIVE [facility] STAPHYOCOCCUS AUREUS BY PCR Positive Abnormal NEGATIVE [facility] Comment on above: TESTING PERFORMED BY PCR [facility] SODIUM, RANDOM URINEon 05-23 Sodium (U) [Moles/Vol] 53 mmol/L [facility] TROPONIN I, HIGH SENSITIVITY on 05-23-2023 TROPONIN I, HIGH SENSITIVITY 8 pg/mL Normal 0-12 [facility] Comment on above: Result Comment: Indeterminant: >12 to 100 pg/mL female >20 to 100 pg/mL male Indicative of myocardial injury. Serial sampling is recommended, a change of greater than or equal to 20 pg/mL is indicative of acute coronary syndrome. Performed By: #### L ACTH #### Testing performed at [facility] [address] [facility] [place] [address] TROPONIN I, HIGH SENSITIVITY 8 pg/mL 0 - 12 pg/mL [facility] Comment on above: Indeterminant: >12 to 100 pg/mL female >20 to 100 pg/mL male Indicative of myocardial injury. Serial sampling is recommended, a change of greater than or equal to 20 pg/mL is indicative of acute coronary syndrome. [facility] TROPONIN I, HIGH SENSITIVITY 6 pg/mL Normal 0-12 [facility] Comment on above: Result Comment: Indeterminant: >12 to 100 pg/mL female >20 to 100 pg/mL male Indicative of myocardial injury. Serial sampling is recommended, a change of greater than or equal to 20 pg/mL is indicative of acute coronary syndrome. Performed By: #### T ROHS ####Testing performed at [facility] [place] [address] TSH W/FT4 REFLEXon 3 TSH Qn 1.970 m[IU]/L [facility] TSH,REFLEX FREE T4on 023 TSH,REFLEX FREE T4 1.970 uIU/ML Normal 0.465-4.680 [facility] Comment on above: Performed By: #### U GERARDO, RTOX, UMAC #### Testing performed at [address] [address] URINALYSIS, MACROon 05-23-20 23 Bilirubin Ql (U) Negative NEGATIVE [facility] Clarity (U) CLEAR CLEAR [facility] Color (U) YELLOW YELLOW [facility] Glucose Test strip (U) [Mass/Vol] Negative NEGATIVE mg/dl [facility] Hemoglobin Ql (U) Negative NEGATIVE [facility] Ketones (U) [Mass/Vol] Negative NEGATIVE mg/dl [facility] Leukocyte esterase Test strip Ql (U) Negative NEGATIVE [facility] Nitrite Ql (U) Negative NEGATIVE [facility] pH (U) 5.5 [pH] 5.0 - 7.0 [facility] Protein Ql (U) Negative NEGATIVE mg/dl [facility] Specific gravity (U) [Rel density] 1.020 1.010 - 1.025 [facility] Urobilinogen (U) [Mass/Vol] 0.2 mg/dL [facility] URINE MACROSCOPICon 05-23-20 23 Bilirubin Ql (U) Negative Normal NEGATIVE [facility] Comment on above: Performed By: #### U MAC ####Testing performed at [address] [address] Clarity (U) CLEAR Normal CLEAR [facility] Comment on above: Performed By: #### U MAC ####Testing performed at [address] [address] Color (U) YELLOW Normal YELLOW [facility] Comment on above: Performed By: #### U MAC ####Testing performed at [address] [address] Glucose Ql (U) Negative Normal NEGATIVE [facility] Comment on above: Performed By: #### U MAC ####Testing performed at [address] [address] pH (U) 5.5 [pH] Normal 5.0-7.0 [facility] Comment on above: Performed By: #### U MAC ####Testing performed at [address] [address] URINE HEMOGLOBIN Negative Normal NEGATIVE [facility] Comment on above: Performed By: #### U MAC ####Testing performed at [address] [address] URINE KETONE Negative Normal NEGATIVE [facility] Comment on above: Performed By: #### U MAC ####Testing performed at [address] [address] URINE LEUKOTEST Negative Normal NEGATIVE [facility] Comment on above: Performed By: #### U MAC ####Testing performed at [address] [address] URINE NITRATES Negative Normal NEGATIVE [facility] Comment on above: Performed By: #### U MAC ####Testing performed at [address] [address] URINE SPEC GRAVITY 1.020 Normal 1.010-1.025 [facility] Comment on above: Performed By: #### U MAC ####Testing performed at [address] [address] URINE TOTAL PROTEIN Negative Normal NEGATIVE [facility] Comment on above: Performed By: #### U MAC ####Testing performed at [address] [address] Urobilinogen Qn (U) 0.2 {Samuel'U}/dL Normal 0.2-1.0 [facility] Comment on above: Performed By: #### U MAC ####Testing performed at [address] [address] URINE SODIUM RANDOMon 2022 Sodium (U) [Moles/Vol] 53 mmol/L Normal 30-90 [facility] Comment on above: Performed By: #### L ACTH #### Testing performed at [facility] [address] [place] [address] US Renal arteryon 05-23-2023 Radiology Study observation (narrative) [facility] VITAMIN D (25-HYDROXY,TOTAL) on 05-23-2023 25-hydroxyvitamin D [Mass/Vol] 36.3 NG/ML [facility] Comment on above: DEFICIENT <20 NG/ML INSUFFICIENT 20-<30 NG/ML SUFFICIENT 30-100 NG/ML POTENTIAL TOXICITY >100 NG/ML [facility] B TYPE NATRIURETIC PEPTIDEon 05-22-2023 Natriuretic peptide B (Bld) [Mass/Vol] 89 pg/mL Normal [facility] Comment on above: Performed By: #### U GERARDO, RTOX, UMAC #### Testing performed at [address] [address] B-TYPE NATRIURETIC PEPTIDE ( BRAIN)on 05-22-2023 Natriuretic peptide B (Bld) [Mass/Vol] 89 pg/mL [facility] CBCon 05-22-2023 ABSOLUTE BAS 0.0 10*3/uL Normal 0.0-0.2 [facility] Comment on above: Performed By: #### U GERARDO, RTOX, UMAC #### Testing performed at [address] [address] ABSOLUTE EOS 0.3 10*3/uL Normal 0.0-0.7 [facility] Comment on above: Performed By: #### U GERARDO, RTOX, UMAC #### Testing performed at [address] [address] ABSOLUTE NEUTROPHIL COUNT 3.4 10*3/uL Normal 1.4-6.5 [facility] Comment on above: Performed By: #### U GERARDO, RTOX, UMAC #### Testing performed at [address] [address] Basophils/100 WBC (Bld) 0.6 % Normal 0.0-2.0 [facility] Comment on above: Performed By: #### U GERARDO, RTOX, UMAC #### Testing performed at [address] [address] DTYPE AUTO DIFF Normal [facility] Comment on above: Performed By: #### U GERARDO, RTOX, UMAC #### Testing performed at [address] [address] Eosinophils/100 WBC (Bld) 6.2 % Normal 0.0-11.0 [facility] Comment on above: Performed By: #### U GERARDO, RTOX, UMAC #### Testing performed at [address] [address] Lymphocytes (Bld) [#/Vol] 1.0 10*3/uL Low 1.2-3.4 [facility] Comment on above: Performed By: #### U GERARDO, RTOX, UMAC #### Testing performed at [address] [address] Lymphocytes/100 WBC (Bld) 20.0 % Normal 20.0-55.0 [facility] Comment on above: Performed By: #### U GERARDO, RTOX, UMAC #### Testing performed at [address] [address] Monocytes (Bld) [#/Vol] 0.3 10*3/uL Normal 0.0-0.7 [facility] Comment on above: Performed By: #### U GERARDO, RTOX, UMAC #### Testing performed at [address] [address] Monocytes/100 WBC (Bld) 5.7 % Normal 0.0-10.0 [facility] Comment on above: Performed By: #### U GERARDO, RTOX, UMAC #### Testing performed at [address] [address] Neutrophils/100 WBC (Bld) 67.5 % Normal 37.0-75.0 [facility] Comment on above: Performed By: #### U GERARDO, RTOX, UMAC #### Testing performed at [address] [address] Erythrocyte distribution width (RBC) [Ratio] 13.2 % Normal 11.5-14.5 [facility] Comment on above: Performed By: #### U GERARDO, RTOX, UMAC #### Testing performed at [address] [address] Hematocrit (Bld) [Volume fraction] 41.6 % Normal 36.0-48.0 [facility] Comment on above: Performed By: #### U GERARDO, RTOX, UMAC #### Testing performed at [address] [address] Hemoglobin (Bld) [Mass/Vol] 14.1 g/dL Normal 12.0-16.0 [facility] Comment on above: Performed By: #### U GERARDO, RTOX, UMAC #### Testing performed at [address] [address] MCH (RBC) [Entitic mass] 31.1 pg Normal 26.0-35.0 [facility] Comment on above: Performed By: #### U GERARDO, RTOX, UMAC #### Testing performed at [address] [address] MCHC (RBC) [Mass/Vol] 34.0 g/dL Normal 27.0-37.0 [facility] Comment on above: Performed By: #### U GERARDO, RTOX, UMAC #### Testing performed at [address] [address] MCV (RBC) [Entitic vol] 91.3 fL Normal 80.0-100.0 [facility] Comment on above: Performed By: #### U GERARDO, RTOX, UMAC #### Testing performed at [address] [address] Platelet mean volume (Bld) [Entitic vol] 9.1 fL Normal 7.4-11.0 [facility] Comment on above: Performed By: #### U GERARDO, RTOX, UMAC #### Testing performed at [address] [address] Platelets (Bld) [#/Vol] 110 10*3/uL Low 130-400 [facility] Comment on above: Performed By: #### U GERARDO, RTOX, UMAC #### Testing performed at [address] [address] RBC (Bld) [#/Vol] 4.55 10*6/uL Normal 4.0-5.4 [facility] Comment on above: Performed By: #### U GERARDO, RTOX, UMAC #### Testing performed at [address] [place] [address] WBC (Bld) [#/Vol] 5.1 10*3/uL Normal 3.6-11.0 [facility] Comment on above: Performed By: #### U GERARDO, RTOX, UMAC #### Testing performed at [address] [address] CBC, EDIF, PLATELETon 2022 ABSOLUTE BASOPHIL COUNT 0.0 10*3/uL 0.0 - 0.2 10*3/uL [facility] Basophils/100 WBC (Bld) 0.6 % 0.0 - 2.0 % [facility] Differential cell count method Nom (Bld) AUTO DIFF % [facility] Eosinophils (Bld) [#/Vol] 0.3 10*3/uL 0.0 - 0.7 10*3/uL [facility] Eosinophils/100 WBC (Bld) 6.2 % 0.0 - 11.0 % [facility] Erythrocyte distribution width (RBC) [Ratio] 13.2 % 11.5 - 14.5 % [facility] Hematocrit (Bld) [Volume fraction] 41.6 % 36.0 - 48.0 % [facility] Hemoglobin (Bld) [Mass/Vol] 14.1 g/dL [facility] Interpretation and review of laboratory results Abnormal [facility] Lymphocytes (Bld) [#/Vol] 1.0 10*3/uL Low 1.2 - 3.4 10*3/uL [facility] Lymphocytes/100 WBC (Bld) 20.0 % 20.0 - 55.0 % [facility] MCH (RBC) [Entitic mass] 31.1 pg 26.0 - 35.0 PG [facility] MCHC (RBC) [Mass/Vol] 34.0 g/dL [facility] MCV (RBC) [Entitic vol] 91.3 fL [facility] Monocytes (Bld) [#/Vol] 0.3 10*3/uL 0.0 - 0.7 10*3/uL [facility] Monocytes/100 WBC (Bld) 5.7 % 0.0 - 10.0 % [facility] Neutrophils (Bld) [#/Vol] 3.4 10*3/uL 1.4 - 6.5 10*3/uL [facility] Neutrophils/100 WBC (Bld) 67.5 % 37.0 - 75.0 % [facility] Platelet mean volume (Bld) [Entitic vol] 9.1 fL [facility] Platelets (Bld) [#/Vol] 110 10*3/uL Low 130 - 400 10*3/uL [facility] RBC (Bld) [#/Vol] 4.55 10*6/uL 4.0 - 5.4 10*6/uL [facility] WBC (Bld) [#/Vol] 5.1 10*3/uL 3.6 - 11.0 10*3/uL [facility] CMP FASTINGon 05-22-2023 A:G RATIO 1.8 RATIO Normal [facility] Comment on above: Performed By: #### U GERARDO, RTOX, UMAC #### Testing performed at [address] [address] ALBUMIN 4.2 G/dl Normal 3.5-5.0 [facility] Comment on above: Performed By: #### U GERARDO, RTOX, UMAC #### Testing performed at [address] [address] ALP [Catalytic activity/Vol] 86 U/L Normal 38-126 [facility] Comment on above: Performed By: #### U GERARDO, RTOX, UMAC #### Testing performed at [address] [address] ALT [Catalytic activity/Vol] 57 U/L High <35 [facility] Comment on above: Performed By: #### U GERARDO, RTOX, UMAC #### Testing performed at [address] [address] AST [Catalytic activity/Vol] 49 U/L High 14-36 [facility] Comment on above: Performed By: #### U GERARDO, RTOX, UMAC #### Testing performed at [address] [address] Bilirubin [Mass/Vol] 0.8 mg/dL Normal 0.2-1.3 [facility] Comment on above: Performed By: #### U GERARDO, RTOX, UMAC #### Testing performed at [address] [address] Calcium [Mass/Vol] 9.0 mg/dL Normal 8.4-10.2 [facility] Comment on above: Performed By: #### U GERARDO, RTOX, UMAC #### Testing performed at [address] [address] Chloride [Moles/Vol] 108 mmol/L High 98-107 [facility] Comment on above: Result Comment: Hilary diaz note: Triglyceride levels of 600mg/dL or higher may positively bias chloride results by approximately 2.1 mmol Performed By: #### U GERARDO, RTOX, UMAC #### [place] [address] CO2 [Moles/Vol] 27 mmol/L Normal 22-30 [facility] Comment on above: Performed By: #### U GERARDO, RTOX, UMAC #### Testing performed at [place] [id number] Creatinine [Mass/Vol] 0.79 mg/dL Normal 0.70-1.20 [facility] Comment on above: Performed By: #### U GERARDO, RTOX, UMAC #### Testing performed at [address] [address] EST. GFR, 95 ml/min/1.73sq.m [facility] Comment on above: Performed By: #### U GERARDO, RTOX, UMAC #### Testing performed at [address] [address] EST. GFR,Non 78 ml/min/1.73sq.m [facility] Comment on above: Performed By: #### U GERARDO, RTOX, UMAC #### Testing performed at [address] [address] GFR Information Average GFR for 60-6 9 years old = 85. [facility] Comment on above: Result Comment: Herb Digger romelia Kidney disease, GFR = <60. Kidney failure, GFR = <15. The GFR estimate is not adjusted for extreme body surface area or acute process, nor has it been validated for women or ethnic groups other than and . Performed By: #### U GERARDO, RTOX, UMAC #### Testing performed at [address] [address] Glucose [Mass/Vol] 111 mg/dL High 70-100 [facility] Comment on above: Result Comment: NORMAL <100 mg/dL PREDIABETES 101-126 mg/dL DIABETES 126 mg/dL or higher Performed By: #### U GERARDO, RTOX, UMAC #### Testing performed at [address] [address] Potassium [Moles/Vol] 4.3 mmol/L Normal 3.5-5.1 [facility] Comment on above: Performed By: #### U GERARDO, RTOX, UMAC #### Testing performed at [address] [address] Protein [Mass/Vol] 6.5 g/dL Normal 6.3-8.2 [facility] Comment on above: Performed By: #### U GERARDO, RTOX, UMAC #### Testing performed at [address] [address] Sodium [Moles/Vol] 142 mmol/L Normal 137-145 [facility] Comment on above: Performed By: #### U GERARDO, RTOX, UMAC #### Testing performed at [address] [address] Urea nitrogen [Mass/Vol] 20 mg/dL Normal 7-20 [facility] Comment on above: Performed By: #### U GERARDO, RTOX, UMAC #### Testing performed at [address] [address] COMPREHENSIVE METABOLIC PANE José 05-22-2023 Albumin [Mass/Vol] 4.2 G/dl 3.5 - 5.0 G/dl [facility] Albumin/Globulin [Mass ratio] 1.8 {ratio} RATIO [facility] ALP [Catalytic activity/Vol] 86 U/L [facility] ALT [Catalytic activity/Vol] 57 U/L High NINF [facility] AST [Catalytic activity/Vol] 49 U/L High [facility] Bilirubin [Mass/Vol] 0.8 mg/dL [facility] Calcium [Mass/Vol] 9.0 mg/dL [facility] Chloride [Moles/Vol] 108 mmol/L High [facility] Comment on above: Please note: Triglyc eride levels of 600mg/dL or higher may positively bias chloride results by approximately 2.1 mmol CO2 [Moles/Vol] 27 mmol/L [facility] Creatinine [Mass/Vol] 0.79 mg/dL [facility] GFR COMMENT Average GFR for 60-6 9 years old = 85. [facility] Comment on above: Chronic Kidney disea se, GFR = <60. Kidney failure, GFR = <15. The GFR estimate is not adjusted for extreme body surface area or acute process, nor has it been validated for women or ethnic groups other than and . GFR/1.73 sq M.predicted among blacks MDRD (S/P/Bld) [Vol rate/Area] 95 mL/min/{1.73_m2} ml/min/1.73sq .m [facility] GFR/1.73 sq M.predicted among non-blacks MDRD (S/P/Bld) [Vol rate/Area] 78 mL/min/{1.73_m2} ml/min/1.73sq .m [facility] Glucose post fast [Mass/Vol] 111 mg/dL High [facility] Comment on above: NORMAL <100 mg/dL PREDIABETES 101-126 mg/dL DIABETES 126 mg/dL or higher Interpretation and review of laboratory results Abnormal [facility] Potassium [Moles/Vol] 4.3 mmol/L [facility] Protein [Mass/Vol] 6.5 g/dL [facility] Sodium [Moles/Vol] 142 mmol/L [facility] Urea nitrogen [Mass/Vol] 20 mg/dL [facility] CT HEAD WITHOUT CONTRASTon 0 05-22-2023 CT [...] intracranial hemorrhage or other acute finding. Normal [facility] CT Head WO contraston 2022 IMPRESSION: Age-appropriate [...] of intracranial hemorrhage or other acute finding. [facility] Radiology Study observation (narrative) [facility] CT Head WO contrastOrdered B y: Misael Bonilla on 05-22-2023 [facility] Work Phone: TROPONIN I, HIGH SENSITIVITY on 05-22-2023 TROPONIN I, HIGH SENSITIVITY 6 pg/mL 0 - 12 pg/mL [facility] Comment on above: Indeterminant: >12 to 100 pg/mL female >20 to 100 pg/mL male Indicative of myocardial injury. Serial sampling is recommended, a change of greater than or equal to 20 pg/mL is indicative of acute coronary syndrome. [facility] TROPONIN I, HIGH SENSITIVITY 5 pg/mL Normal 0-12 [facility] Comment on above: Result Comment: Indeterminant: >12 to 100 pg/mL female >20 to 100 pg/mL male Indicative of myocardial injury. Serial sampling is recommended, a change of greater than or equal to 20 pg/mL is indicative of acute coronary syndrome. Performed By: #### L ACTH #### Testing performed at [facility] [address] [facility] [place] [address] [place] [address] TROPONIN I, HIGH SENSITIVITY 5 pg/mL 0 - 12 pg/mL [facility] Comment on above: Indeterminant: >12 to 100 pg/mL female >20 to 100 pg/mL male Indicative of myocardial injury. Serial sampling is recommended, a change of greater than or equal to 20 pg/mL is indicative of acute coronary syndrome. [facility] XR CHEST PA AND LATERALon XR CHEST PA AND LATERAL [facility] CHEST RADIOGRAPH, 05/22/2023 5:58 PM EDT COMPARISON: Chest, 09/01/2022. CLINICAL HISTORY: uncontrolled HTN. Looking for end organ changes Findings and impression: 1. No acute pulmonary disease. 2. Stable cardiomegaly. 3. No acute osseous abnormality. Orthopedic plate again seen over the lower cervical region. Normal [facility] XR Chest PA and Lateralon Findings and [...] again seen over the lower cervical region. [facility] [facility] Radiology Study observation (narrative) [employer] [facility] XR Chest PA and LateralOrder ed By: Brandi Giang on 05-22-2023 [employer] Work Phone: US DUPLEX VENOUS LEG LEFTon 03-10-2023 US DUPLEX VENOUS LEG LEFT Patient Info Name: MICHELINE FOX Age: 62 years : 1960 Gender: Female Exam Date: 03/10/2023 2:49 PM Patient Status: Outpatient Rigger Chief: Lakesha Caraballo, ANDREWS, RDMS (AB), RVT Referring Physician: LETICIA SYLVESTER ; Indications M79.662 - Pain in left lower leg Procedure Description 02160 Duplex examination using B-mode, color and spectral [...] Saphenous: - Small Saphenous: - - Normal [facility] DUPLEX VENOUS LEG LEFT Patient Info Name: MICHELINE FOX Age: 62 years : 1960 Gender: Female Exam Date: 03/10/2023 2:49 PM Patient Status: Outpatient Rigger Chief: Lakesha Caraballo, ANDREWS, RDMS (AB), RVT Referring Physician: LETICIA SYLVESTER ; Indications M79.662 - Pain in left lower leg Procedure Description 62512 Duplex examination using B-mode, color and spectral [...] ThuMar 10, 2023 3:27:51 PM EDT Normal [facility] CBCon 02-16-2023 ABSOLUTE BAS 0.0 10*3/uL Normal 0.0-0.2 [facility] Comment on above: Performed By: #### P T, ACBC, DDIMER, LIVR, CHEM7F #### Testing performed at [place] [id number] ABSOLUTE EOS 0.2 10*3/uL Normal 0.0-0.7 [facility] Comment on above: Performed By: #### P T, ACBC, DDIMER, LIVR, CHEM7F #### Testing performed at [address] [address] ABSOLUTE NEUTROPHIL COUNT 3.4 10*3/uL Normal 1.4-6.5 [facility] Comment on above: Performed By: #### P T, ACBC, DDIMER, LIVR, CHEM7F #### Testing performed at [address] [address] Basophils/100 WBC (Bld) 0.9 % Normal 0.0-2.0 [facility] Comment on above: Performed By: #### P T, ACBC, DDIMER, LIVR, CHEM7F #### Testing performed at [address] [address] DTYPE AUTO DIFF Normal [facility] Comment on above: Performed By: #### P T, ACBC, DDIMER, LIVR, CHEM7F #### Testing performed at [place] [id number] Eosinophils/100 WBC (Bld) 3.5 % Normal 0.0-11.0 [facility] Comment on above: Performed By: #### P T, ACBC, DDIMER, LIVR, CHEM7F #### Testing performed at [address] [address] Lymphocytes (Bld) [#/Vol] 1.4 10*3/uL Normal 1.2-3.4 [facility] Comment on above: Performed By: #### P T, ACBC, DDIMER, LIVR, CHEM7F #### Testing performed at [address] [address] Lymphocytes/100 WBC (Bld) 26.2 % Normal 20.0-55.0 [facility] Comment on above: Performed By: #### P T, ACBC, DDIMER, LIVR, CHEM7F #### Testing performed at [address] [address] Monocytes (Bld) [#/Vol] 0.3 10*3/uL Normal 0.0-0.7 [facility] Comment on above: Performed By: #### P T, ACBC, DDIMER, LIVR, CHEM7F #### Testing performed at [address] [address] Monocytes/100 WBC (Bld) 6.0 % Normal 0.0-10.0 [facility] Comment on above: Performed By: #### P T, ACBC, DDIMER, LIVR, CHEM7F #### Testing performed at [address] [address] Neutrophils/100 WBC (Bld) 63.4 % Normal 37.0-75.0 [facility] Comment on above: Performed By: #### P T, ACBC, DDIMER, LIVR, CHEM7F #### Testing performed at [address] [address] Erythrocyte distribution width (RBC) [Ratio] 14.0 % Normal 11.5-14.5 [facility] Comment on above: Performed By: #### P T, ACBC, DDIMER, LIVR, CHEM7F #### Testing performed at [address] [address] Hematocrit (Bld) [Volume fraction] 40.8 % Normal 36.0-48.0 [facility] Comment on above: Performed By: #### P T, ACBC, DDIMER, LIVR, CHEM7F #### Testing performed at [address] [address] Hemoglobin (Bld) [Mass/Vol] 13.9 g/dL Normal 12.0-16.0 [facility] Comment on above: Performed By: #### P T, ACBC, DDIMER, LIVR, CHEM7F #### Testing performed at [address] [address] MCH (RBC) [Entitic mass] 31.7 pg Normal 26.0-35.0 [facility] Comment on above: Performed By: #### P T, ACBC, DDIMER, LIVR, CHEM7F #### Testing performed at [address] [address] MCHC (RBC) [Mass/Vol] 34.2 g/dL Normal 27.0-37.0 [facility] Comment on above: Performed By: #### P T, ACBC, DDIMER, LIVR, CHEM7F #### Testing performed at [address] [address] MCV (RBC) [Entitic vol] 92.6 fL Normal 80.0-100.0 [facility] Comment on above: Performed By: #### P T, ACBC, DDIMER, LIVR, CHEM7F #### Testing performed at [address] [address] Platelet mean volume (Bld) [Entitic vol] 9.3 fL Normal 7.4-11.0 [facility] Comment on above: Performed By: #### P T, ACBC, DDIMER, LIVR, CHEM7F #### Testing performed at [address] [address] Platelets (Bld) [#/Vol] 128 10*3/uL Low 130-400 [facility] Comment on above: Performed By: #### P T, ACBC, DDIMER, LIVR, CHEM7F #### Testing performed at [address] [place] [address] RBC (Bld) [#/Vol] 4.40 10*6/uL Normal 4.0-5.4 [facility] Comment on above: Performed By: #### P T, ACBC, DDIMER, LIVR, CHEM7F #### Testing performed at [address] [place] [address] WBC (Bld) [#/Vol] 5.3 10*3/uL Normal 3.6-11.0 [facility] Comment on above: Performed By: #### P T, ACBC, DDIMER, LIVR, CHEM7F #### Testing performed at [address] [place] [address] CBC, EDIF, PLATELETon 2022 ABSOLUTE BASOPHIL COUNT 0.0 10*3/uL 0.0 - 0.2 10*3/uL [facility] Basophils/100 WBC (Bld) 0.9 % 0.0 - 2.0 % [facility] Differential cell count method Nom (Bld) AUTO DIFF % [facility] Eosinophils (Bld) [#/Vol] 0.2 10*3/uL 0.0 - 0.7 10*3/uL [facility] Eosinophils/100 WBC (Bld) 3.5 % 0.0 - 11.0 % [facility] Erythrocyte distribution width (RBC) [Ratio] 14.0 % 11.5 - 14.5 % [facility] Hematocrit (Bld) [Volume fraction] 40.8 % 36.0 - 48.0 % [facility] Hemoglobin (Bld) [Mass/Vol] 13.9 g/dL [facility] Interpretation and review of laboratory results Abnormal [facility] Lymphocytes (Bld) [#/Vol] 1.4 10*3/uL 1.2 - 3.4 10*3/uL [facility] Lymphocytes/100 WBC (Bld) 26.2 % 20.0 - 55.0 % [facility] MCH (RBC) [Entitic mass] 31.7 pg 26.0 - 35.0 PG [facility] MCHC (RBC) [Mass/Vol] 34.2 g/dL [facility] MCV (RBC) [Entitic vol] 92.6 fL [facility] Monocytes (Bld) [#/Vol] 0.3 10*3/uL 0.0 - 0.7 10*3/uL [facility] Monocytes/100 WBC (Bld) 6.0 % 0.0 - 10.0 % [facility] Neutrophils (Bld) [#/Vol] 3.4 10*3/uL 1.4 - 6.5 10*3/uL [facility] Neutrophils/100 WBC (Bld) 63.4 % 37.0 - 75.0 % [facility] Platelet mean volume (Bld) [Entitic vol] 9.3 fL [facility] Platelets (Bld) [#/Vol] 128 10*3/uL Low 130 - 400 10*3/uL [facility] RBC (Bld) [#/Vol] 4.40 10*6/uL 4.0 - 5.4 10*6/uL [facility] WBC (Bld) [#/Vol] 5.3 10*3/uL 3.6 - 11.0 10*3/uL [facility] CHEM 7 FASTINGon 02-16-2022 Chloride [Moles/Vol] 106 mmol/L Normal 98-107 [facility] Comment on above: Performed By: #### P T, ACBC, DDIMER, LIVR, CHEM7F ####Testing performed at [place] [id number] CO2 [Moles/Vol] 26 mmol/L Normal 22-30 [facility] Comment on above: Performed By: #### P T, ACBC, DDIMER, LIVR, CHEM7F ####Testing performed at [address] [address] Creatinine [Mass/Vol] 0.75 mg/dL Normal 0.52-1.04 [facility] Comment on above: Performed By: #### P T, ACBC, DDIMER, LIVR, CHEM7F ####Testing performed at [address] [address] EST. GFR, 101 ml/min/1.73sq.m Normal [facility] Comment on above: Performed By: #### P T, ACBC, DDIMER, LIVR, CHEM7F ####Testing performed at [address] [address] EST. GFR,Non 84 ml/min/1.73sq.m [facility] Comment on above: Performed By: #### P T, ACBC, DDIMER, LIVR, CHEM7F ####Testing performed at [place] [id number] GFR Information Average GFR for 60-6 9 years old = 85. Normal [facility] Comment on above: Result Comment: Herb Digger romelia Kidney disease, GFR = <60. Kidney failure, GFR = <15. The GFR estimate is not adjusted for extreme body surface area or acute process, nor has it been validated for women or ethnic groups other than and . Performed By: #### P T, ACBC, DDIMER, LIVR, CHEM7F ####Testing performed at [place] [id number] Glucose [Mass/Vol] 104 mg/dL High 70-100 [facility] Comment on above: Result Comment: NORMAL <100 mg/dL PREDIABETES 101-126 mg/dL DIABETES 126 mg/dL or higher Performed By: #### P T, ACBC, DDIMER, LIVR, CHEM7F ####Testing performed at [address] [address] Potassium [Moles/Vol] 3.5 mmol/L Normal 3.5-5.1 [facility] Comment on above: Performed By: #### P T, ACBC, DDIMER, LIVR, CHEM7F ####Testing performed at [address] [address] Sodium [Moles/Vol] 143 mmol/L Normal 136-145 [facility] Comment on above: Performed By: #### P T, ACBC, DDIMER, LIVR, CHEM7F ####Testing performed at [place] [id number] Urea nitrogen [Mass/Vol] 20 mg/dL Normal 7-20 [facility] Comment on above: Performed By: #### P T, ACBC, DDIMER, LIVR, CHEM7F ####[place] [address] CHEM 7 (LYTES,BUN,CREA,GLUC) on 02-16-2023 Chloride [Moles/Vol] 106 mmol/L [facility] CO2 [Moles/Vol] 26 mmol/L [facility] Creatinine [Mass/Vol] 0.75 mg/dL [facility] [employer] [facility] GFR COMMENT Average GFR for 60-6 9 years old = 85. [facility] Comment on above: Chronic Kidney disea se, GFR = <60. Kidney failure, GFR = <15. The GFR estimate is not adjusted for extreme body surface area or acute process, nor has it been validated for women or ethnic groups other than and . GFR/1.73 sq M.predicted among blacks MDRD (S/P/Bld) [Vol rate/Area] 101 mL/min/{1.73_m2} ml/min/1.73sq .m [facility] [employer] [facility] GFR/1.73 sq M.predicted among non-blacks MDRD (S/P/Bld) [Vol rate/Area] 84 mL/min/{1.73_m2} ml/min/1.73sq .m [facility] [employer] [facility] Glucose post fast [Mass/Vol] 104 mg/dL High [facility] Comment on above: NORMAL <100 mg/dL PREDIABETES 101-126 mg/dL DIABETES 126 mg/dL or higher Potassium [Moles/Vol] 3.5 mmol/L [facility] Sodium [Moles/Vol] 143 mmol/L [facility] [employer] [facility] Urea nitrogen [Mass/Vol] 20 mg/dL [facility] D DIMERon 02-16-2023 D DIMER <0.27 Normal <0.50 [facility] Comment on above: Result Comment: If r esult is greater than the cutoff value of 0.56 mg/L then the potential for PE or DVT exists. Other conditions exist which may cause a falsely elevated level. Please correlate clinically, including radiological findings and other clinical parameters. Performed By: #### P T, ACBC, DDIMER, LIVR, CHEM7F ####Testing performed at [address] [address] D-DIMER,QUANTITATIVEon 02-16 Fibrin D-dimer FEU (PPP) [Mass/Vol] <0.27 NINF [facility] Comment on above: If result is greater than the cutoff value of 0.56 mg/L then the potential for PE or DVT exists. Other conditions exist which may cause a falsely elevated level. Please correlate clinically, including radiological findings and other clinical parameters. [facility] HEPATIC FUNCTION PANELon Albumin [Mass/Vol] 4.1 g/dL [facility] ALP [Catalytic activity/Vol] 73 U/L [facility] ALT [Catalytic activity/Vol] 68 U/L High [facility] AST [Catalytic activity/Vol] 55 U/L High [facility] Bilirubin [Mass/Vol] 0.8 mg/dL [facility] Bilirubin.direct [Mass/Vol] 0.2 mg/dL [facility] Protein [Mass/Vol] 7.0 g/dL [facility] LIVER PANELon 02-16-2023 Albumin [Mass/Vol] 4.1 g/dL Normal 3.5-5.0 [facility] Comment on above: Performed By: #### P T, ACBC, DDIMER, LIVR, CHEM7F ####Testing performed at [address] [address] ALP [Catalytic activity/Vol] 73 U/L Normal 38-126 [facility] Comment on above: Performed By: #### P T, ACBC, DDIMER, LIVR, CHEM7F ####Testing performed at [address] [address] ALT [Catalytic activity/Vol] 68 U/L High 14-54 [facility] Comment on above: Performed By: #### P T, ACBC, DDIMER, LIVR, CHEM7F ####Testing performed at [address] [address] AST [Catalytic activity/Vol] 55 U/L High 15-41 [facility] Comment on above: Performed By: #### P T, ACBC, DDIMER, LIVR, CHEM7F ####Testing performed at [address] [address] Bilirubin [Mass/Vol] 0.8 mg/dL Normal 0.2-1.2 [facility] Comment on above: Performed By: #### P T, ACBC, DDIMER, LIVR, CHEM7F ####Testing performed at [address] [address] Bilirubin.indirect [Mass/Vol] 0.2 mg/dL Normal 0.0-0.2 [facility] Comment on above: Performed By: #### P T, ACBC, DDIMER, LIVR, CHEM7F ####Testing performed at [place] [id number] Protein [Mass/Vol] 7.0 g/dL Normal 6.3-8.2 [facility] Comment on above: Performed By: #### P T, ACBC, DDIMER, LIVR, CHEM7F ####Testing performed at [place] [id number] No Panel Informationon 02-16 Interpretation and review of laboratory results Abnormal [facility] PROTIMEon 02-16-2023 INR Coag (PPP) [Relative time] 0.94 {INR} Normal 0.85-1.10 [facility] Comment on above: Result Comment: 2.0-3.0 THERAPEUTIC RANGE 2.5-3.5 MECHANICAL VALVE RANGE Performed By: #### P T, ACBC, DDIMER, LIVR, CHEM7F #### Testing performed at [address] [address] PT Coag (PPP) [Time] 12.7 s Normal 11.8-14.4 [facility] Comment on above: Performed By: #### P T, ACBC, DDIMER, LIVR, CHEM7F #### Testing performed at [address] [address] PROTIME-INRon 02-16-2023 INR Coag (PPP) [Relative time] 0.94 {INR} 0.85 - 1.10 [facility] Comment on above: 2.0-3.0 THERAPEUTIC RANGE 2.5-3.5 MECHANICAL VALVE RANGE PT Coag (PPP) [Time] 12.7 s [facility] XR CHEST AP/PA AND LATon XR CHEST [...] Denies Known Exposure. Patient is Alert. Skin [place], Warm and Dry. Respirations Non-Labored ORDERING SYSTEM [...] ThuNov 05, 2022 5:49:29 PM EST Normal [facility] Comment on above: Order Comment: Injur [...] Denies Known Exposure. Patient is Alert. Skin [place], Warm and Dry. Respirations Non-Labored CYSTOSCOPYon 10-15-2022 [...] was obtained. Does this procedure require a [place] Protocol? Yes. [place] Protocol is required. Urine was collected for testing. Procedure: Procedure performed: cystoscopyA 360 survey of the bladder was performed. [facility] GENERAL PROCEDUREon 10-15-19 23 Av Delgado MD 10/15/2022 1:22 PM error [facility] Av Delgado MD - 10/15/2022 1:00 PM [...] trimethoprimdaily, appropriate use and side effects reviewed. [facility] Radiology Study observation (narrative) [facility] No Panel Informationon 10-15 [facility] Radiology Study observation (narrative) [facility] POCT URINALYSIS DIPSTICK AUT OMATED W/O SCOPon 10-15-2022 Amorphous sediment LM Ql (Urine sed) [facility] Appearance (U) clear [facility] Bacteria LM Ql (Urine sed) [facility] Bilirubin Ql (U) Negative [facility] Casts LM.LPF (Urine sed) [#/Area] [facility] Color (U) yellow [facility] Crystals LM Nom (Urine sed) [facility] Epithelial cells.squamous LM.HPF (Urine sed) [#/Area] [facility] Flow cytometry specialist review Mg (Unsp spec) [Interp] [facility] Glucose Auto test strip (U) [Mass/Vol] Negative mg/dL [facility] Ketones [Mass/Vol] Negative mg/dL [facility] Leukocyte esterase Qn (U) [facility] Leukocyte esterase Test strip Ql (U) Negative [facility] Nitrite Ql (U) Negative [facility] pH (U) 6.0 [pH] 5 - 7 [facility] Protein Ql (U) Negative mg/dL [facility] RBC LM.HPF (Urine sed) [#/Area] [facility] RBC Ql (U) santosh [facility] Specific gravity (U) [Rel density] 1.025 1.001 - 1.035 [facility] Transitional cells LM Ql (Urine sed) [facility] Urobilinogen Qn (U) 0.2 [facility] WBC LM.HPF (Urine sed) [#/Area] [facility] CT Abdomen and Pelvison 09-22 IMPRESSION: No [...] follow-up required. Fatty infiltration of the liver [facility] CT Abdomen and PelvisOrdered By: Digna Tinajero on 10-10-2022 [facility] Work Phone: CT Abdomen and Pelvison 09-21 Radiology Study observation (narrative) [facility] POCT URINALYSIS DIPSTICK AUT OMATED W/O SCOPon 10-01-2022 Amorphous sediment LM Ql (Urine sed) [facility] Appearance (U) clear [facility] Bacteria LM Ql (Urine sed) [facility] Bilirubin Ql (U) Negative [facility] Casts LM.LPF (Urine sed) [#/Area] [facility] Color (U) yellow [facility] Crystals LM Nom (Urine sed) [facility] Epithelial cells.squamous LM.HPF (Urine sed) [#/Area] [facility] Flow cytometry specialist review Mg (Unsp spec) [Interp] [facility] Glucose Auto test strip (U) [Mass/Vol] Negative mg/dL [facility] Ketones [Mass/Vol] Negative mg/dL [facility] Leukocyte esterase Qn (U) [facility] Leukocyte esterase Test strip Ql (U) TRACE [facility] Nitrite Ql (U) Negative [facility] pH (U) 5.0 [pH] 5 - 7 [facility] Protein Ql (U) Negative mg/dL [facility] RBC LM.HPF (Urine sed) [#/Area] [facility] RBC Ql (U) Negative [facility] Specific gravity (U) [Rel density] 1.010 1.001 - 1.035 [facility] Transitional cells LM Ql (Urine sed) [facility] Urobilinogen Qn (U) 0.2 [facility] WBC LM.HPF (Urine sed) [#/Area] [facility] CBC, EDIF, PLATELETon 2021 Basophils/100 WBC (Bld) 0 % 0.0 - 2.0 % [facility] Differential cell count method Nom (Bld) AUTO DIFF % [facility] Eosinophils/100 WBC (Bld) 3 % 0.0 - 11.0 % [facility] Erythrocyte distribution width (RBC) [Ratio] 15.0 % High 11.5 - 14.5 % [facility] Comment on above: CORRECTED ON 09/01 A T 1943: PREVIOUSLY REPORTED 14.5 Hematocrit (Bld) [Volume fraction] 42.6 % 36.0 - 48.0 % [facility] Comment on above: CORRECTED ON 09/01 A T 1943: PREVIOUSLY REPORTED 42.8 Hemoglobin (Bld) [Mass/Vol] 14.2 g/dL [facility] Comment on above: CORRECTED ON 09/01 A T 1943: PREVIOUSLY REPORTED 14.5 Interpretation and review of laboratory results Abnormal [facility] Lymphocytes/100 WBC (Bld) 36 % 20.0 - 55.0 % [facility] MCH (RBC) [Entitic mass] 30.4 pg 26.0 - 35.0 PG [facility] Comment on above: CORRECTED ON 09/01 A T 1943: PREVIOUSLY REPORTED 30.8 MCHC (RBC) [Mass/Vol] 33.3 g/dL [facility] Comment on above: CORRECTED ON 09/01 A T 1943: PREVIOUSLY REPORTED 34.0 MCV (RBC) [Entitic vol] 91.4 fL [facility] Comment on above: CORRECTED ON 09/01 A T 1943: PREVIOUSLY REPORTED 90.7 Monocytes/100 WBC (Bld) 7 % 0.0 - 10.0 % [facility] Neutrophils/100 WBC (Bld) 54 % 37.0 - 75.0 % [facility] Platelet mean volume (Bld) [Entitic vol] 9.5 fL [facility] Comment on above: CORRECTED ON 09/01 A T 1943: PREVIOUSLY REPORTED 10.6 Platelets (Bld) [#/Vol] 93 10*3/uL Low 130.0 - 400.0 10*3/uL [facility] Comment on above: CORRECTED ON 09/01 A T 1943: PREVIOUSLY REPORTED 126 RBC (Bld) [#/Vol] 4.66 10*6/uL 4.0 - 5.4 10*6/uL [facility] Comment on above: CORRECTED ON 09/01 A T 1943: PREVIOUSLY REPORTED 4.72 WBC (Bld) [#/Vol] 3.3 10*3/uL Low 3.6 - 11.0 10*3/uL [facility] Comment on above: Result called to guillaume pfeiffer back by: Roberta MENDOZASENDY 09/01/2022 @ 19:44 by ILDEFONSO CORRECTED ON 09/01 AT 1944: PREVIOUSLY REPORTED 4.0 [facility] COMPREHENSIVE METABOLIC PANE José 09-01-2022 Albumin [Mass/Vol] 4.2 G/dl 3.5 - 5.0 G/dl [facility] Albumin/Globulin [Mass ratio] 1.4 {ratio} [facility] ALP [Catalytic activity/Vol] 62 U/L [facility] ALT [Catalytic activity/Vol] 30 U/L [facility] AST [Catalytic activity/Vol] 28 U/L [facility] Bilirubin [Mass/Vol] 0.8 mg/dL [facility] Calcium [Mass/Vol] 9.0 mg/dL [facility] Chloride [Moles/Vol] 103 mmol/L [facility] CO2 [Moles/Vol] 28 mmol/L [facility] Creatinine [Mass/Vol] 0.94 mg/dL [facility] GFR COMMENT Average GFR for 60-6 9 years old = 85. [facility] Comment on above: Chronic Kidney disea se, GFR = <60. Kidney failure, GFR = <15. The GFR estimate is not adjusted for extreme body surface area or acute process, nor has it been validated for women or ethnic groups other than and . GFR/1.73 sq M.predicted among blacks MDRD (S/P/Bld) [Vol rate/Area] 78 mL/min/{1.73_m2} ml/min/1.73sq .m [facility] GFR/1.73 sq M.predicted among non-blacks MDRD (S/P/Bld) [Vol rate/Area] 64 mL/min/{1.73_m2} ml/min/1.73sq .m [facility] Glucose post fast [Mass/Vol] 106 mg/dL High [facility] Comment on above: NORMAL <100 mg/dL PREDIABETES 101-126 mg/dL DIABETES 126 mg/dL or higher Interpretation and review of laboratory results Abnormal [facility] Potassium [Moles/Vol] 3.2 mmol/L Low [facility] Protein [Mass/Vol] 7.1 g/dL [facility] Sodium [Moles/Vol] 140 mmol/L [facility] Urea nitrogen [Mass/Vol] 14 mg/dL [facility] INFLUENZA A AND B, PCRon FLUAV and FLUBV Ag IF Nom (Unsp spec) Negative NEGATIVE [facility] FLUBV Ag IA Ql (Unsp spec) Negative NEGATIVE [facility] Comment on above: TESTING PERFORMED BY KRANTHI [facility] NOVEL CORONAVIRUS LAB 1 - NA SOPHARYNGEALon 09-01-2022 Interpretation and review of laboratory results Abnormal [facility] NARRATIVE -1 This test was performed using isothermal KRANTHI and has been approved as Emergency Use Authorization (EUA) for the qualitative detection [id number] nucleic acid. [facility] SARS-CoV-2 (COVID-19) RNA KRANTHI+probe Ql (Unsp spec) Detected Abnormal NOT DETECTED [facility] Comment on above: ENHANCED CONTACT, AN D DROPLET ISOLATION IS REQUIRED FOR INPATIENTS WITH SARS-CoV-2. [facility] XR Chest PA uprighton 2021 IMPRESSION: The [...] chest does not appear to change significantly. [facility] Radiology Study observation (narrative) [facility] XR Chest PA uprightOrdered B y: Alex Nino on 09-01-2022 [facility] Work Phone: NOVEL CORONAVIRUS (COVID-19) on 08-08-2022 SARS-CoV-2 (COVID-19) RNA KRANTHI+probe Ql (Unsp spec) Not detected Not Detected [facility] Comment on above: This assay was perfo rmed using [employer] Nucleic Acid Amplification technology (RTPCR). SARS-CoV-2 (COVID-19) RNA NA A+probe Ql (Unsp spec)on 08-08-2022 Interpretation and review of laboratory results Normal [facility] SARS-CoV-2 (COVID-19) Ab IA Ql Not Detected results are indicative of the absence of SARS-CoV-2 in the specimen submitted for testing. False negative results are possible based on the timing and quality of specimen submitted for testing. This test is intended for use only under Emergency Use Authorization (EUA). This test was developed, and its performance characteristics determined by [facility] [employer] which is certified under CLIA as qualified to perform high complexity clinical laboratory testing. [facility] Cardiologyon 07-28-2022 P wave axis 6 degrees [facility] Interval 184 ms [facility] Q-T interval 412 ms [facility] Q-T interval corrected 438 ms [facility] QRS axis 35 degrees [facility] QRS duration 86 ms [facility] T wave axis 37 degrees [facility] No Panel Informationon 07-28 Diagnosis Normal sinus rhythm with sinus arrhythmia Normal ECG No previous ECGs available Confirmed by RAKESH SHOEMAKER ([id number]) on 07/28/2022 5:37:49 [facility] by E[facility] 68 BPM Metr [facility] Basic metabolic 2000 panelon 04-23-2022 Anion gap [Moles/Vol] 14 mmol/L [facility] Calcium [Mass/Vol] 9.6 mg/dL 8.4 - 10. [...] Inclusion of Race in Diagnosing Kidney Disease. Greek Journal of Kidney Diseases 2021;79(2):268-88.e1. 2. N Engl J Med 1 Vol. 385 Issue 19 Pages [id number] Glucose [Mass/Vol] 111 mg/dL 80 - 116 [...] vol] 89 fL 80 - 100 fL [facility] Platelet mean volume (Bld) [Entitic vol] 10.3 fL 7.5 - 11.2 fL [facility] Platelets (Bld) [#/Vol] 137 10*3/uL Low 150 - 400 K/uL [facility] RBC (Bld) [#/Vol] 4.94 10*6[facility]L [facility] WBC (Bld) [#/Vol] 5.8 10*3/uL 4.5 - 11.5 K/uL [facility] Diabetes tracking panelOrder ed By: Tj Slaughter on 04-23-2022 Average glucose Estimated from glycated hemoglobin (Bld) [Mass/Vol] 91 mg/dL [facility] HbA1c (Bld) [Mass fraction] 4.8 % 4.0 - 5.6 % [facility] Laboratory - Chemistry and C hemistry - challengeon 04-23-2022 Albumin [Mass/Vol] 4.6 g/dL 3.4 - 5.1 g/dL [facility] ALP [Catalytic activity/Vol] 68 U/L [facility] ALT [Catalytic activity/Vol] 35 U/L [facility] AST [Catalytic activity/Vol] 29 U/L [facility] Bilirubin [Mass/Vol] 1.0 mg/dL 0.1 - 1 .5 mg/dL [facility] Bilirubin.direct [Mass/Vol] 0.20 mg/dL 0.10 - 0.30 mg/dL [facility] Protein [Mass/Vol] 6.4 g/dL 5.7 - 8.1 g/dL [facility] Laboratory - Coagulationon 0 04-23-2022 INR Coag (PPP) [Relative time] 1.07 {INR} [facility] PT Coag (PPP) [Time] 12.1 s [facility] Lipid 1996 panelon 2 Cholesterol [Mass/Vol] 208 mg/dL High <200 [facility] Cholesterol in HDL [Mass/Vol] 42 mg/dL Low >54 [facility] Cholesterol in LDL [Mass/Vol] 144 mg/dL High <111 [facility] Cholesterol in LDL/Cholesterol in HDL [Mass ratio] 3.43 {ratio} <3.57 [facility] Cholesterol non HDL [Mass/Vol] 166 mg/dL High <130 [facility] Cholesterol.total/Cho lesterol in HDL [Mass ratio] 4.95 {ratio} <5.00 [facility] Interpretation and review of laboratory results Abnormal [facility] Triglyceride [Mass/Vol] 172 mg/dL High <151 [facility] No Panel Informationon 04-23 AFP 2.6 ng/mL <=8.4 [facility] Interpretation and review of laboratory results Normal [facility] Interpretation and review of laboratory results Normal [facility] Interpretation and review of laboratory results Normal [facility] C REACTIVE PROTEINon 022 CRP [Mass/Vol] mg/L 0 - 10.0 MG/L [facility] CBC, EDIF, PLATELETon 2021 ABSOLUTE BASOPHIL COUNT 0.0 10*3/uL 0.0 - 0.2 10*3/uL [facility] Basophils/100 WBC (Bld) 0.4 % 0.0 - 2.0 % [facility] Differential cell count method Nom (Bld) AUTO DIFF % [facility] Eosinophils (Bld) [#/Vol] 0.20 10*3/uL 0.0 - 0.7 10*3/uL [facility] Eosinophils/100 WBC (Bld) 7.0 % 0.0 - 11.0 % [facility] Erythrocyte distribution width (RBC) [Ratio] 13.5 % 11.5 - 14.5 % [facility] Hematocrit (Bld) [Volume fraction] 34.0 % Low 36.0 - 48.0 % [facility] Hemoglobin (Bld) [Mass/Vol] 11.7 g/dL Low [facility] Interpretation and review of laboratory results Abnormal [facility] Lymphocytes (Bld) [#/Vol] 1.00 10*3/uL Low 1.2 - 3.4 10*3/uL [facility] Lymphocytes/100 WBC (Bld) 34.5 % 20.0 - 55.0 % [facility] MCH (RBC) [Entitic mass] 31.5 pg 26.0 - 35.0 PG [facility] MCHC (RBC) [Mass/Vol] 34.4 g/dL [facility] MCV (RBC) [Entitic vol] 91.8 fL [facility] Monocytes (Bld) [#/Vol] 0.2 10*3/uL 0.0 - 0.7 10*3/uL [facility] Monocytes/100 WBC (Bld) 6.2 % 0.0 - 10.0 % [facility] Neutrophils (Bld) [#/Vol] 1.6 10*3/uL 1.4 - 6.5 10*3/uL [facility] Neutrophils/100 WBC (Bld) 51.9 % 37.0 - 75.0 % [facility] Platelet mean volume (Bld) [Entitic vol] 11.5 fL High [facility] Platelets (Bld) [#/Vol] 77 10*3/uL Low 130.0 - 400.0 10*3/uL [facility] RBC (Bld) [#/Vol] 3.70 10*6/uL Low 4.0 - 5.4 10*6/uL [facility] WBC (Bld) [#/Vol] 3.0 10*3/uL Low 3.6 - 11.0 10*3/uL [facility] COMPREHENSIVE METABOLIC PANE José 01-31-2022 Albumin [Mass/Vol] 3.5 G/dl 3.5 - 5.0 G/dl [facility] Albumin/Globulin [Mass ratio] 1.8 {ratio} [facility] ALP [Catalytic activity/Vol] 47 U/L [facility] ALT [Catalytic activity/Vol] 38 U/L [facility] AST [Catalytic activity/Vol] 31 U/L [facility] Bilirubin [Mass/Vol] 0.6 mg/dL [facility] Calcium [Mass/Vol] 8.4 mg/dL [facility] Chloride [Moles/Vol] 108 mmol/L [facility] CO2 [Moles/Vol] 28 mmol/L [facility] Creatinine [Mass/Vol] 0.96 mg/dL [facility] GFR COMMENT Average GFR for 60-6 9 years old = 85. [facility] Comment on above: Chronic Kidney disea se, GFR = <60. Kidney failure, GFR = <15. The GFR estimate is not adjusted for extreme body surface area or acute process, nor has it been validated for women or ethnic groups other than and . GFR/1.73 sq M.predicted among blacks MDRD (S/P/Bld) [Vol rate/Area] 76 mL/min/{1.73_m2} ml/min/1.73sq .m [facility] GFR/1.73 sq M.predicted among non-blacks MDRD (S/P/Bld) [Vol rate/Area] 63 mL/min/{1.73_m2} ml/min/1.73sq .m [facility] Glucose post fast [Mass/Vol] 104 mg/dL High [facility] Comment on above: NORMAL <100 mg/dL PREDIABETES 101-126 mg/dL DIABETES 126 mg/dL or higher Interpretation and review of laboratory results Abnormal [facility] Potassium [Moles/Vol] 3.5 mmol/L [facility] Protein [Mass/Vol] 5.5 g/dL Low [facility] Sodium [Moles/Vol] 142 mmol/L [facility] Urea nitrogen [Mass/Vol] 17 mg/dL [facility] CT Head WO contraston 2021 IMPRESSION: 1. [...] disease. 3. Unchanged calcified left parietal meningioma. [facility] Head WO contrastOrdered B y: Silas Abreu on 01-31-2022 [facility] Work Phone: MAGNESIUMon 01-31-2022 Magnesium [Mass/Vol] 2.1 mg/dL [facility] No Panel Informationon 01-31 [facility] PROTIME-INRon 01-31-2022 INR Coag (PPP) [Relative time] 0.92 {INR} [facility] Comment on above: 2.0-3.0 THERAPEUTIC RANGE 2.5-3.5 MECHANICAL VALVE RANGE PT Coag (PPP) [Time] 12.6 s [facility] SEDIMENTATION RATE, AUTOMATE Don 01-31-2022 ESR (Bld) [Velocity] 6 mm/h [facility] C REACTIVE PROTEINon 022 CRP [Mass/Vol] mg/L 0 - 10.0 MG/L [facility] CBC, EDIF, PLATELETon 2021 ABSOLUTE BASOPHIL COUNT 0.0 10*3/uL 0.0 - 0.2 10*3/uL [facility] Basophils/100 WBC (Bld) 0.6 % 0.0 - 2.0 % [facility] Differential cell count method Nom (Bld) AUTO DIFF % [facility] Eosinophils (Bld) [#/Vol] 0.20 10*3/uL 0.0 - 0.7 10*3/uL [facility] Eosinophils/100 WBC (Bld) 6.1 % 0.0 - 11.0 % [facility] Erythrocyte distribution width (RBC) [Ratio] 13.6 % 11.5 - 14.5 % [facility] Hematocrit (Bld) [Volume fraction] 34.5 % Low 36.0 - 48.0 % [facility] Hemoglobin (Bld) [Mass/Vol] 11.9 g/dL Low [facility] Interpretation and review of laboratory results Abnormal [facility] Lymphocytes (Bld) [#/Vol] 1.10 10*3/uL Low 1.2 - 3.4 10*3/uL [facility] Lymphocytes/100 WBC (Bld) 31.9 % 20.0 - 55.0 % [facility] MCH (RBC) [Entitic mass] 31.6 pg 26.0 - 35.0 PG [facility] MCHC (RBC) [Mass/Vol] 34.4 g/dL [facility] MCV (RBC) [Entitic vol] 92.0 fL [facility] Monocytes (Bld) [#/Vol] 0.2 10*3/uL 0.0 - 0.7 10*3/uL [facility] Monocytes/100 WBC (Bld) 5.7 % 0.0 - 10.0 % [facility] Neutrophils (Bld) [#/Vol] 2.0 10*3/uL 1.4 - 6.5 10*3/uL [facility] Neutrophils/100 WBC (Bld) 55.7 % 37.0 - 75.0 % [facility] Platelet mean volume (Bld) [Entitic vol] 11.2 fL High [facility] Platelets (Bld) [#/Vol] 89 10*3/uL Low 130.0 - 400.0 10*3/uL [facility] RBC (Bld) [#/Vol] 3.75 10*6/uL Low 4.0 - 5.4 10*6/uL [facility] WBC (Bld) [#/Vol] 3.6 10*3/uL 3.6 - 11.0 10*3/uL [facility] COMPREHENSIVE METABOLIC PANE José 01-30-2022 Albumin [Mass/Vol] 3.4 G/dl Low 3.5 - 5.0 G/dl [facility] Albumin/Globulin [Mass ratio] 1.6 {ratio} [facility] ALP [Catalytic activity/Vol] 47 U/L [facility] ALT [Catalytic activity/Vol] 36 U/L [facility] AST [Catalytic activity/Vol] 29 U/L [facility] Bilirubin [Mass/Vol] 0.5 mg/dL [facility] Calcium [Mass/Vol] 8.4 mg/dL [facility] Chloride [Moles/Vol] 109 mmol/L High [facility] CO2 [Moles/Vol] 27 mmol/L [facility] Creatinine [Mass/Vol] 1.05 mg/dL High [facility] GFR COMMENT Average GFR for 60-6 9 years old = 85. [facility] Comment on above: Chronic Kidney disea se, GFR = <60. Kidney failure, GFR = <15. The GFR estimate is not adjusted for extreme body surface area or acute process, nor has it been validated for women or ethnic groups other than and . GFR/1.73 sq M.predicted among blacks MDRD (S/P/Bld) [Vol rate/Area] 69 mL/min/{1.73_m2} ml/min/1.73sq .m [facility] GFR/1.73 sq M.predicted among non-blacks MDRD (S/P/Bld) [Vol rate/Area] 57 mL/min/{1.73_m2} ml/min/1.73sq .m [facility] Glucose post fast [Mass/Vol] 120 mg/dL High [facility] Comment on above: NORMAL <100 mg/dL PREDIABETES 101-126 mg/dL DIABETES 126 mg/dL or higher Interpretation and review of laboratory results Abnormal [facility] Potassium [Moles/Vol] 3.6 mmol/L [facility] Protein [Mass/Vol] 5.5 g/dL Low [facility] Sodium [Moles/Vol] 141 mmol/L [facility] Urea nitrogen [Mass/Vol] 22 mg/dL High [facility] CT Head WO contraston 2021 Radiology Study observation (narrative) [facility] ECGon 01-30-2022 [facility] ECGOrdered By: Phill champagne on 01-30-2022 [facility] Work Phone: HEPATITIS A, B, Con 01-31-20 HBV surface Ag IA Ql Negative NEGATIVE [facility] [employer] [facility] Hep A AB (IGG + IGM) Positive Abnormal NEGATIVE [facility] [employer] [facility] Comment on above: Specimen is positive for HAV, sent to reference lab for HAVAb, IgM. Positive indicates a reactive sample and the presence of HAV Ab, individual has been previously infected or is presumed to be immune to HAV infection. HEP B CORE AB,TOTAL(IGG+IGM) Reactive Abnormal NEGATIVE [facility] [employer] [facility] Comment on above: Specimen is presumed reactive for HBc Ab Hep B Surf AB Positive POSITIVE [employer] Comment on above: Clinical Interpretation of Immune Status Negative: patient is considered to be not immune to infection with HBV Intermediate: unable to determine if anti-HBs is present at levels consistent with immunity Positive: anti-HBs detected, patient is considered to be immune to infection with HBV HEP C AB Reactive Abnormal NEGATIVE [facility] Comment on above: HCV Ab IgG detected, patient is presumed to be infected, state or associated disease not determined Interpretation and review of laboratory results Abnormal [facility] MAGNESIUMon 01-30-2022 Magnesium [Mass/Vol] 2.1 mg/dL [facility] [employer] [facility] No Panel Informationon 01-30 Interpretation and review of laboratory results Abnormal [facility] PROTIME-INRon 01-30-2022 INR Coag (PPP) [Relative time] 0.88 {INR} [facility] Comment on above: 2.0-3.0 THERAPEUTIC RANGE 2.5-3.5 MECHANICAL VALVE RANGE PT Coag (PPP) [Time] 12.2 s [facility] [employer] [facility] [employer] [facility] SEDIMENTATION RATE, AUTOMATE Don 01-30-2022 ESR (Bld) [Velocity] 5 mm[facility]h [facility] SPECT Heart perfusion at res t and [...] HR: 72 bpm Max Heart Rate (APMHR): 160.900930 bpm Max HR Achieved: 95 bpm Target HR (85% APMHR): 136.307123 bpm % of APMHR: 59.38 Recovery HR: 88 bpm HR response to stress: appropriate BP Resting BP: 138/90 mmHg Max BP: 138/90 mmHg BP response to stress: normal resting BP - appropriate response ECG Resting ECG: normal ST Change: none Arrhythmia: none Conclusion Nondiagnostic stress test, O2 sat 98% CARDIOLOGY Phill Nciholas DO - 01/30/2022 APPROVED REPORT NM EXAM: [...] Resting HR: 72 bpmMax Heart Rate (APMHR): 160.508952 bpm Max HR Achieved: 95 bpmTarget HR (85% APMHR): 136.151203 bpm % of APMHR: 59.38 Recovery HR: 88 bpm HR response to stress: appropriate BP Resting BP: 138/90 mmHg Max BP: 138/90 mmHg BP response to stress: normal resting BP - appropriate response ECG Resting ECG: normal ST Change: none Arrhythmia: none Conclusion Nondiagnostic stress test, O2 sat 98% [facility] Radiology Study observation (narrative) [facility] TOXICOLOGY DRUG SCREEN, URIN Abelardo 01-30-2022 Amphetamine (U) [Mass/Vol] Negative NEGATIVE NG/ML [facility] Comment on above: <500 ng/ml CUTOFF Barbiturates Screen Ql (U) Negative NEGATIVE NG/ML [facility] Comment on above: <200 ng/ml CUTOFF Benzodiazepines Ql (U) Positive Abnormal NEGATIVE NG/ML [facility] Comment on above: <150 ng/ml CUTOFF *Unconfirmed Screening Result* Unconfirmed screening results are to be used only for medical treatment purposes. Benzoylecgonine Ql (U) Negative NEGATIVE NG/ML [facility] Comment on above: <150 ng/ml CUTOFF Buprenorphine Ql (U) Negative NEGATIV E NG/ML [facility] Comment on above: <10 ng/ml CUTOFF Cannabinoids Screen Ql (U) Negative NEGATIVE NG/ML [facility] Comment on above: <50 ng/ml CUTOFF Interpretation and review of laboratory results Abnormal [facility] Methadone Screen Ql (U) Negative NEGATIVE NG/ML [facility] Comment on above: <200 ng/ml CUTOFF Methamphetamine (U) [Mass/Vol] Negative NEGATIVE NG/ML [facility] Comment on above: <500 ng/ml CUTOFF Opiates Screen Ql (U) Positive Abnormal NEGATI VE NG/ML [facility] Comment on above: <100 ng/ml CUTOFF *Unconfirmed Screening Result* Unconfirmed screening results are to be used only for medical treatment purposes. oxyCODONE Ql (U) Negative NEGATIVE NG/ML [facility] Comment on above: <100 ng/ml CUTOFF Phencyclidine Screen method >25 ng/mL Ql (U) Negative NEGATIVE NG/ML [facility] Comment on above: <25 ng/ml CUTOFF Propoxyphene+Norpropo xyphene Screen Ql (U) Negative NEGATIVE NG/ML [facility] Comment on above: <300 ng/ml CUTOFF Tricyclic antidepressants Screen Ql (U) Negative NEGATIVE NG/ML [facility] Comment on above: <300 ng/ml CUTOFF [facility] URINALYSIS, MACROon 01-31-20 22 Bilirubin Ql (U) Negative NEGATIVE [facility] Clarity (U) SLIGHTLY CLOUDY Abnormal CLEAR [facility] Color (U) YELLOW YELLOW [facility] Glucose Test strip (U) [Mass/Vol] Negative NEGATIVE mg/dl [facility] Hemoglobin Ql (U) Negative NEGATIVE [facility] Ketones (U) [Mass/Vol] Negative NEGATIVE mg/dl [facility] Leukocyte esterase Test strip Ql (U) TRACE Abnormal NEGATIVE [facility] Nitrite Ql (U) Negative NEGATIVE [facility] pH (U) 6.0 [pH] [facility] Protein Ql (U) Negative NEGATIVE mg/dl [facility] Specific gravity (U) [Rel density] 1.020 [facility] Urobilinogen (U) [Mass/Vol] 0.2 mg/dL [facility] URINE MICROSCOPICon 01-31-20 22 Bacteria LM.HPF (Urine sed) [#/Area] TRACE Abnormal NEGATIVE [facility] Casts LM.LPF (Urine sed) [#/Area] NONE NONE /LPF [facility] Crystals LM Nom (Urine sed) NONE NONE [facility] Epithelial cells LM Ql (Urine sed) 1 TO 5 /HPF [facility] Mucus Ql (Urine sed) Negative NEGATIVE [facility] RBC LM.HPF (Urine sed) [#/Area] Negative NEGATIVE /HPF [facility] Urine sediment comments LM Mg (Urine sed) REFLEX CULTURE PER ESTABLISHED CRITERIA. [facility] WBC LM.HPF (Urine sed) [#/Area] 1 TO 5 NEGATIVE /HPF [facility] C REACTIVE PROTEINon 022 CRP [Mass/Vol] mg/L 0 - 10.0 MG/L [facility] CBC, EDIF, PLATELETon 2021 ABSOLUTE BASOPHIL COUNT 0.0 10*3/uL 0.0 - 0.2 10*3/uL [facility] Basophils/100 WBC (Bld) 0.5 % 0.0 - 2.0 % [facility] Differential cell count method Nom (Bld) AUTO DIFF % [facility] Eosinophils (Bld) [#/Vol] 0.20 10*3/uL 0.0 - 0.7 10*3/uL [facility] Eosinophils/100 WBC (Bld) 7.2 % 0.0 - 11.0 % [facility] Erythrocyte distribution width (RBC) [Ratio] 13.5 % 11.5 - 14.5 % [facility] Hematocrit (Bld) [Volume fraction] 36.1 % 36.0 - 48.0 % [facility] Hemoglobin (Bld) [Mass/Vol] 12.4 g/dL [facility] Interpretation and review of laboratory results Abnormal [facility] Lymphocytes (Bld) [#/Vol] 1.10 10*3/uL Low 1.2 - 3.4 10*3/uL [facility] Lymphocytes/100 WBC (Bld) 35.4 % 20.0 - 55.0 % [facility] MCH (RBC) [Entitic mass] 31.6 pg 26.0 - 35.0 PG [facility] MCHC (RBC) [Mass/Vol] 34.5 g/dL [facility] MCV (RBC) [Entitic vol] 91.7 fL [facility] Monocytes (Bld) [#/Vol] 0.2 10*3/uL 0.0 - 0.7 10*3/uL [facility] Monocytes/100 WBC (Bld) 7.1 % 0.0 - 10.0 % [facility] Neutrophils (Bld) [#/Vol] 1.6 10*3/uL 1.4 - 6.5 10*3/uL [facility] Neutrophils/100 WBC (Bld) 49.8 % 37.0 - 75.0 % [facility] Platelet mean volume (Bld) [Entitic vol] 10.5 fL [facility] Platelets (Bld) [#/Vol] 89 10*3/uL Low 130.0 - 400.0 10*3/uL [facility] RBC (Bld) [#/Vol] 3.94 10*6/uL Low 4.0 - 5.4 10*6/uL [facility] WBC (Bld) [#/Vol] 3.2 10*3/uL Low 3.6 - 11.0 10*3/uL [facility] COMPREHENSIVE METABOLIC PANE José 01-29-2022 Albumin [Mass/Vol] 3.5 G/dl 3.5 - 5.0 G/dl [facility] Albumin/Globulin [Mass ratio] 1.5 {ratio} [facility] ALP [Catalytic activity/Vol] 51 U/L [facility] ALT [Catalytic activity/Vol] 40 U/L [facility] AST [Catalytic activity/Vol] 33 U/L [facility] Bilirubin [Mass/Vol] 0.3 mg/dL [facility] Calcium [Mass/Vol] 8.6 mg/dL [facility] Chloride [Moles/Vol] 104 mmol/L [facility] CO2 [Moles/Vol] 27 mmol/L [facility] Creatinine [Mass/Vol] 1.06 mg/dL High [facility] GFR COMMENT Average GFR for 60-6 9 years old = 85. [facility] Comment on above: Chronic Kidney disea se, GFR = <60. Kidney failure, GFR = <15. The GFR estimate is not adjusted for extreme body surface area or acute process, nor has it been validated for women or ethnic groups other than and . GFR/1.73 sq M.predicted among blacks MDRD (S/P/Bld) [Vol rate/Area] 68 mL/min/{1.73_m2} ml/min/1.73sq .m [facility] GFR/1.73 sq M.predicted among non-blacks MDRD (S/P/Bld) [Vol rate/Area] 56 mL/min/{1.73_m2} ml/min/1.73sq .m [facility] Glucose post fast [Mass/Vol] 124 mg/dL High [facility] Comment on above: NORMAL <100 mg/dL PREDIABETES 101-126 mg/dL DIABETES 126 mg/dL or higher Interpretation and review of laboratory results Abnormal [facility] Potassium [Moles/Vol] 3.5 mmol/L [facility] Protein [Mass/Vol] 5.9 g/dL Low [facility] Sodium [Moles/Vol] 139 mmol/L [facility] Urea nitrogen [Mass/Vol] 20 mg/dL [facility] D-DIMER,QUANTITATIVEon 01-29 Fibrin D-dimer FEU (PPP) [Mass/Vol] 0.36 <0.50 mg/L FEU [facility] Comment on above: If result is greater than the cutoff value of 0.50 mg/L then the potential for PE or DVT exists. Other conditions exist which may cause a falsely elevated level. Please correlate clinically, including radiological findings and other clinical parameters. [facility] FIBRINOGEN, CLOTTABLEon 01-19 Fibrinogen Coag (PPP) [Mass/Vol] 294.0 mg/dL 171 - 562 mg/dL [facility] MAGNESIUMon 01-29-2022 Magnesium [Mass/Vol] 2.0 mg/dL [facility] No Panel Informationon 01-29 [facility] PROTIME-INRon 01-29-2022 INR Coag (PPP) [Relative time] 0.98 {INR} [facility] Comment on above: 2.0-3.0 THERAPEUTIC RANGE 2.5-3.5 MECHANICAL VALVE RANGE PT Coag (PPP) [Time] 13.2 s [facility] SEDIMENTATION RATE, AUTOMATE Don 01-29-2022 ESR (Bld) [Velocity] 6 mm/h [facility] TROPONIN I, HIGH SENSITIVITY on 01-29-2022 TROPONIN I, HIGH SENSITIVITY 4 pg/mL 0 - 12 pg/mL [facility] Comment on above: Indeterminant: >12 to 100 pg/mL female >20 to 100 pg/mL male Indicative of myocardial injury. Serial sampling is recommended, a change of greater than or equal to 20 pg/mL is indicative of acute coronary syndrome. [facility] C REACTIVE PROTEINon 022 CRP [Mass/Vol] 8.7 mg/L 0 - 10.0 MG/L [facility] CBC, EDIF, PLATELETon 2021 ABSOLUTE BASOPHIL COUNT 0.0 10*3/uL 0.0 - 0.2 10*3/uL [facility] Basophils/100 WBC (Bld) 0.6 % 0.0 - 2.0 % [facility] Differential cell count method Nom (Bld) AUTO DIFF % [facility] Eosinophils (Bld) [#/Vol] 0.20 10*3/uL 0.0 - 0.7 10*3/uL [facility] Eosinophils/100 WBC (Bld) 6.1 % 0.0 - 11.0 % [facility] Erythrocyte distribution width (RBC) [Ratio] 13.7 % 11.5 - 14.5 % [facility] Hematocrit (Bld) [Volume fraction] 36.9 % 36.0 - 48.0 % [facility] Hemoglobin (Bld) [Mass/Vol] 12.9 g/dL [facility] Interpretation and review of laboratory results Abnormal [facility] Lymphocytes (Bld) [#/Vol] 1.40 10*3/uL 1.2 - 3.4 10*3/uL [facility] Lymphocytes/100 WBC (Bld) 42.9 % 20.0 - 55.0 % [facility] MCH (RBC) [Entitic mass] 31.7 pg 26.0 - 35.0 PG [facility] MCHC (RBC) [Mass/Vol] 35.0 g/dL [facility] MCV (RBC) [Entitic vol] 90.8 fL [facility] Monocytes (Bld) [#/Vol] 0.3 10*3/uL 0.0 - 0.7 10*3/uL [facility] Monocytes/100 WBC (Bld) 7.8 % 0.0 - 10.0 % [facility] Neutrophils (Bld) [#/Vol] 1.4 10*3/uL 1.4 - 6.5 10*3/uL [facility] Neutrophils/100 WBC (Bld) 42.6 % 37.0 - 75.0 % [facility] Platelet mean volume (Bld) [Entitic vol] 10.6 fL [facility] Platelets (Bld) [#/Vol] 94 10*3/uL Low 130.0 - 400.0 10*3/uL [facility] RBC (Bld) [#/Vol] 4.06 10*6/uL 4.0 - 5.4 10*6/uL [facility] WBC (Bld) [#/Vol] 3.3 10*3/uL Low 3.6 - 11.0 10*3/uL [facility] CHEM 7 (LYTES,BUN,CREA,GLUC) on 01-28-2022 Chloride [Moles/Vol] 102 mmol/L [facility] CO2 [Moles/Vol] 29 mmol/L [facility] Creatinine [Mass/Vol] 0.93 mg/dL [facility] GFR COMMENT Average GFR for 60-6 9 years old = 85. [facility] Comment on above: Chronic Kidney disea se, GFR = <60. Kidney failure, GFR = <15. The GFR estimate is not adjusted for extreme body surface area or acute process, nor has it been validated for women or ethnic groups other than and . GFR/1.73 sq M.predicted among blacks MDRD (S/P/Bld) [Vol rate/Area] 79 mL/min/{1.73_m2} ml/min/1.73sq .m [facility] GFR/1.73 sq M.predicted among non-blacks MDRD (S/P/Bld) [Vol rate/Area] 65 mL/min/{1.73_m2} ml/min/1.73sq .m [facility] Glucose post fast [Mass/Vol] 113 mg/dL High [facility] Comment on above: NORMAL <100 mg/dL PREDIABETES 101-126 mg/dL DIABETES 126 mg/dL or higher Interpretation and review of laboratory results Abnormal [facility] Potassium [Moles/Vol] 2.5 mmol/L Critically low [facility] Comment on above: Result called to guillaume pfeiffer back by: Galen LAWSON 01/28/2022 @ 05:55 by JDW Sodium [Moles/Vol] 140 mmol/L [facility] Urea nitrogen [Mass/Vol] 20 mg/dL [facility] Cardiac echo study Procedure on 01-28-2022 APPROVED [...] ms MVA PHT 3.88 cm2 MV Dec Forrest 252.46 cm/s2 MV Decel. Time 224.51 (160-240 [...] Aortic Root 2.82 cm F: 2.7 - 3.4AJCJ89 mL Aortic Root Index1.2 cm/m2LV Fpwjpw62.91 mL F: 46 - 106 Ascending Aorta 2.87 cm F: 2.3 - 3.1LV Volume Index42.07 mL/m2 F: 29 - 61 Ascending Aorta Index: 1.3 cm/m2RV Major 4.14 cm Left Atrium 4.17 cm F: 2.7 - 3.8RV Minor8.00 cm LVOT2.07 cm (M/F) 1.5-2.2IDNHv7.49 cm (M/F) 2.5-4.1 TAPSE 2.6 >1.7 cmRight [...] Ratio0.73MV PHT56.69 ms MVA PHT3.88 cm2MV Dec Forrest 252.46 cm/s2 MV Decel. Opmn824.51 (160-240 ms) Tricuspid Valve TR P. Velocity1.89 m/sRAP Estimate3 mmHg RVSP17.33 mmHgTR maxPG 14.33 mmHg [facility] Radiology Study observation (narrative) [facility] LACTATE, BLOODon 01-28-2022 Lactate [Moles/Vol] 1.7 mmol/L 0.7 - 2. 0 mmol/L [facility] POTASSIUMon 01-28-2022 Interpretation and review of laboratory results Abnormal [facility] Potassium [Moles/Vol] 3.3 mmol/L Low [facility] SEDIMENTATION RATE, AUTOMATE Don 01-28-2022 ESR (Bld) [Velocity] 4 mm/h [facility] CBC, EDIF, PLATELETon 2021 ABSOLUTE BASOPHIL COUNT 0.0 10*3/uL 0.0 - 0.2 10*3/uL [facility] Basophils/100 WBC (Bld) 0.7 % 0.0 - 2.0 % [facility] Differential cell count method Nom (Bld) AUTO DIFF % [facility] Eosinophils (Bld) [#/Vol] 0.20 10*3/uL 0.0 - 0.7 10*3/uL [facility] Eosinophils/100 WBC (Bld) 4.4 % 0.0 - 11.0 % [facility] Erythrocyte distribution width (RBC) [Ratio] 13.5 % 11.5 - 14.5 % [facility] Hematocrit (Bld) [Volume fraction] 44.5 % 36.0 - 48.0 % [facility] Hemoglobin (Bld) [Mass/Vol] 15.6 g/dL [facility] Interpretation and review of laboratory results Abnormal [facility] Lymphocytes (Bld) [#/Vol] 1.80 10*3/uL 1.2 - 3.4 10*3/uL [facility] Lymphocytes/100 WBC (Bld) 34.0 % 20.0 - 55.0 % [facility] MCH (RBC) [Entitic mass] 31.5 pg 26.0 - 35.0 PG [facility] MCHC (RBC) [Mass/Vol] 35.1 g/dL [facility] MCV (RBC) [Entitic vol] 89.7 fL [facility] Monocytes (Bld) [#/Vol] 0.3 10*3/uL 0.0 - 0.7 10*3/uL [facility] Monocytes/100 WBC (Bld) 5.6 % 0.0 - 10.0 % [facility] Neutrophils (Bld) [#/Vol] 3.0 10*3/uL 1.4 - 6.5 10*3/uL [facility] Neutrophils/100 WBC (Bld) 55.3 % 37.0 - 75.0 % [facility] Platelet mean volume (Bld) [Entitic vol] 10.1 fL [facility] Platelets (Bld) [#/Vol] 129 10*3/uL Low 130.0 - 400.0 10*3/uL [facility] RBC (Bld) [#/Vol] 4.96 10*6/uL 4.0 - 5.4 10*6/uL [facility] WBC (Bld) [#/Vol] 5.4 10*3/uL 3.6 - 11.0 10*3/uL [facility] CHEM 7 (LYTES,BUN,CREA,GLUC) on 01-27-2022 Chloride [Moles/Vol] 98 mmol/L [facility] CO2 [Moles/Vol] 25 mmol/L [facility] Creatinine [Mass/Vol] 1.06 mg/dL High [facility] GFR COMMENT Average GFR for 60-6 9 years old = 85. [facility] Comment on above: Chronic Kidney disea se, GFR = <60. Kidney failure, GFR = <15. The GFR estimate is not adjusted for extreme body surface area or acute process, nor has it been validated for women or ethnic groups other than and . GFR/1.73 sq M.predicted among blacks MDRD (S/P/Bld) [Vol rate/Area] 68 mL/min/{1.73_m2} ml/min/1.73sq .m [facility] GFR/1.73 sq M.predicted among non-blacks MDRD (S/P/Bld) [Vol rate/Area] 56 mL/min/{1.73_m2} ml/min/1.73sq .m [facility] Glucose post fast [Mass/Vol] 141 mg/dL High [facility] Comment on above: NORMAL <100 mg/dL PREDIABETES 101-126 mg/dL DIABETES 126 mg/dL or higher Interpretation and review of laboratory results Abnormal [facility] Potassium [Moles/Vol] 2.9 mmol/L Critically low [facility] Comment on above: Result called to guillaume pfeiffer back by: Guanakito BRUNO 01/27/2022 @ 16:51 by GOMEZ Sodium [Moles/Vol] 136 mmol/L [facility] Urea nitrogen [Mass/Vol] 24 mg/dL High [facility] CT Head WO contraston 2021 IMPRESSION: Incidental small left parietal meningioma unchanged. RADIOLOGY EXAMINATION: CT HEAD WITHOUT CONTRAST HISTORY: 61-year-old female high blood pressure, headache. COMPARISON: [place] CT BRAIN 12/28/2021. TECHNIQUE: CT examination of [...] 61-year-old female high blood pressure, headache. COMPARISON: [place] CT BRAIN 12/28/2021. TECHNIQUE: CT examination of [...] IMPRESSION: Incidental small left parietal meningioma unchanged. [facility] Study observation (narrative) [facility] Head WO contrastOrdered B y: Wilman Hyman on 01-27-2022 [facility] Work Phone: INFLUENZA A AND B, PCRon FLUAV and FLUBV Ag IF Nom (Unsp spec) Negative NEGATIVE [facility] FLUBV Ag IA Ql (Unsp spec) Negative NEGATIVE [facility] Comment on above: TESTING PERFORMED BY KRANTHI [facility] NOVEL CORONAVIRUS LAB 1 - NA SOPHARYNGEALon 01-27-2022 NARRATIVE -1 This test was performed using isothermal KRANTHI and has been approved as Emergency Use Authorization (EUA) for the qualitative detection [id number] nucleic acid. [facility] SARS-CoV-2 (COVID-19) RNA KRANTHI+probe Ql (Unsp spec) Not detected NOT DETECTED [facility] Comment on above: Negative results do not [...] patient is critically ill or clinically deteriorating. [facility] No Panel Informationon 01-27 [facility] [employer] Portable XR Chest Views APon 01-27-2022 Impression: [...] abnormality. IMPRESSION Impression: No acute cardiopulmonary abnormality. [facility] Radiology Study observation (narrative) [facility] Portable XR Chest Views APOr dered By: Evan Denis on 01-27-2022 [facility] Work Phone: TROPONIN I, HIGH SENSITIVITY on 01-27-2022 TROPONIN I, HIGH SENSITIVITY 11 pg/mL 0 - 12 pg/mL [facility] Comment on above: Indeterminant: >12 to 100 pg/mL female >20 to 100 pg/mL male Indicative of myocardial injury. Serial sampling is recommended, a change of greater than or equal to 20 pg/mL is indicative of acute coronary syndrome. [facility] TROPONIN I, HIGH SENSITIVITY 10 pg/mL 0 - 12 pg/mL [facility] Comment on above: Indeterminant: >12 to 100 pg/mL female >20 to 100 pg/mL male Indicative of myocardial injury. Serial sampling is recommended, a change of greater than or equal to 20 pg/mL is indicative of acute coronary syndrome. [facility] TSHon 01-27-2022 TSH Qn 1.649 m[IU]/L [facility] URINALYSIS, MACROon 01-28-20 22 Bilirubin Ql (U) Negative NEGATIVE [facility] Clarity (U) CLEAR CLEAR [facility] Color (U) YELLOW YELLOW [facility] Glucose Test strip (U) [Mass/Vol] Negative NEGATIVE mg/dl [facility] Hemoglobin Ql (U) Negative NEGATIVE [facility] Interpretation and review of laboratory results Abnormal [facility] Ketones (U) [Mass/Vol] TRACE Abnormal NEGATIVE mg/dl [facility] Leukocyte esterase Test strip Ql (U) SMALL Abnormal NEGATIVE [facility] Nitrite Ql (U) Negative NEGATIVE [facility] pH (U) 5.5 [pH] [facility] Protein Ql (U) Negative NEGATIVE mg/dl [facility] Specific gravity (U) [Rel density] 1.025 [facility] Urobilinogen (U) [Mass/Vol] 0.2 mg/dL [facility] URINE MICROSCOPICon 01-28-20 22 Bacteria LM.HPF (Urine sed) [#/Area] Negative NEGATIVE [facility] Casts LM.LPF (Urine sed) [#/Area] NONE NONE /LPF [facility] Crystals LM Nom (Urine sed) NONE NONE [facility] Epithelial cells LM Ql (Urine sed) NONE /HPF [facility] Mucus Ql (Urine sed) Negative NEGATIVE [facility] RBC LM.HPF (Urine sed) [#/Area] Negative NEGATIVE /HPF [facility] Urine sediment comments LM Mg (Urine sed) CULTURE CRITERIA NOT MET, NO CULTURE PERFORMED. [facility] WBC LM.HPF (Urine sed) [#/Area] Negative NEGATIVE /HPF [facility] XR Shoulder Right 2+ Views ( Standard)Ordered By: Leticia Sylvester on 03-28-2021 No acute osseous abnormality. Moderate glenohumeral joint osteoarthritis. Mild acromioclavicular joint osteoarthritis. Grossly no soft tissue abnormality. Recommend ultrasound or cross-sectional imaging if persistent concern for underlying soft tissue mass. [employer] Workstation ID: [id number] [facility] EXAMINATION: XR SHOULDER RIGHT 2+ VIEWS (STANDARD) [...] of ACDF hardware. Soft tissues appear unremarkable. [facility] Interface, Rad In Erik[employer] Speech[employer] - 03/28/2021 [...] persistent concern for underlying soft tissue mass. [employer] Workstation ID: [id number] [facility] CHEM 7 (LYTES,BUN,CREA,GLUC) on 01-16-2021 Anion gap [Moles/Vol] 15 mmol/L Normal 7-17 [facility] Comment on above: Performed By: #### C HM7, HFP, HDLT #### [facility] (DEFAULT) [address] [address] Chloride [Moles/Vol] 99 mmol/L Normal 98-108 [facility] Comment on above: Performed By: #### C HM7, HFP, HDLT #### [facility] (DEFAULT) [address] [address] CO2 [Moles/Vol] 31 mmol/L High 22-30 [facility] Comment on above: Performed By: #### C HM7, HFP, HDLT #### [facility] (DEFAULT) [address] [address] Creatinine [Mass/Vol] 0.93 mg/dL Normal 0.50-1.20 [facility] Comment on above: Performed By: #### C HM7, HFP, HDLT #### [facility] (DEFAULT) [address] [place] [address] EST GFR, >=60 Normal >=60 [facility] Comment on above: Performed By: #### C HM7, HFP, HDLT #### [facility] (DEFAULT) [address] [place] [address] EST GFR,Non >=60 Normal >=60 [facility] Comment on above: Performed By: #### C HM7, HFP, HDLT #### [facility] (DEFAULT) [address] [place] [address] Glucose [Mass/Vol] 96 mg/dL Normal 70-99 [facility] Comment on above: Performed By: #### C HM7, HFP, HDLT #### [facility] (DEFAULT) [address] [place] [address] Osmolality [Osmolality] 296 mosm/kg Normal 278-305 [facility] Comment on above: Performed By: #### C HM7, HFP, HDLT #### [facility] (DEFAULT) [address] [place] [address] Potassium [Moles/Vol] 3.0 mmol/L Low 3.5-5.0 [facility] Comment on above: Performed By: #### C HM7, HFP, HDLT #### [facility] (DEFAULT) [address] [place] [address] Sodium [Moles/Vol] 142 mmol/L Normal 133-143 [facility] Comment on above: Performed By: #### C HM7, HFP, HDLT #### [facility] (DEFAULT) [address] [place] [address] Urea nitrogen [Mass/Vol] 18 mg/dL Normal 7-22 [facility] Comment on above: Performed By: #### C HM7, HFP, HDLT #### [facility] (DEFAULT) [address] [place] [address] Urea nitrogen/Creatinine [Mass ratio] 19 mg/mg Normal [facility] Comment on above: Performed By: #### C HM7, HFP, HDLT #### [facility] (DEFAULT) [address] [place] [address] HEPATIC FUNCTION PANELon Albumin [Mass/Vol] 4.4 g/dL Normal 3.5-5.0 [facility] Comment on above: Performed By: #### C HM7, HFP, HDLT #### [facility] (DEFAULT) [address] [place] [address] ALP [Catalytic activity/Vol] 75 U/L Normal 32-126 [facility] Comment on above: Performed By: #### C HM7, HFP, HDLT #### [facility] (DEFAULT) [address] [place] [address] ALT [Catalytic activity/Vol] 45 U/L Normal 9-48 [facility] Comment on above: Performed By: #### C HM7, HFP, HDLT #### [facility] (DEFAULT) [address] [place] [address] AST [Catalytic activity/Vol] 33 U/L Normal 14-40 [facility] Comment on above: Performed By: #### C HM7, HFP, HDLT #### [facility] (DEFAULT) [address] [place] [address] Bilirubin [Mass/Vol] 0.8 mg/dL Normal <1.5 [facility] Comment on above: Performed By: #### C HM7, HFP, HDLT #### [facility] (DEFAULT) [address] [place] [address] Bilirubin.indirect [Mass/Vol] 0.1 mg/dL Normal <0.3 [facility] Comment on above: Performed By: #### C HM7, HFP, HDLT #### [facility] (DEFAULT) [address] [place] [address] Protein [Mass/Vol] 6.8 g/dL Normal 6.4-8.3 [facility] Comment on above: Performed By: #### C HM7, HFP, HDLT #### [facility] (DEFAULT) [address] [place] [address] LIPID PANEL W CALCULATED LDL on 01-16-2021 Calculated LDL Cholesterol 125 mg/dL High 0-99 [facility] Comment on above: Result Comment: [<10 0 mg/dL: Optimal] [100-129 mg/dL: Near Optimal] [130-159 mg/dL: Borderline High] [160-189 mg/dL: High] [>189 mg/dL: Very High] Performed By: #### C HM7, HFP, HDLT #### [facility] (DEFAULT) [address] [place] [address] Cholesterol [Mass/Vol] 230 mg/dL High <200 [facility] Comment on above: Result Comment: [<20 0 mg/dL: Desirable] [200-239 mg/dL: Borderline High] [>239 mg/dL: High] Performed By: #### C HM7, HFP, HDLT #### [facility] (DEFAULT) [address] [place] [address] Cholesterol in HDL [Mass/Vol] 43 mg/dL Normal >=40 [facility] Comment on above: Result Comment: [<40 mg/dL: Low (High Risk)] [>59 mg/dL: High (Low Risk)] Performed By: #### C HM7, HFP, HDLT #### [facility] (DEFAULT) [address] [place] [address] Non HDL Cholesterol 187 mg/dL High <130 [facility] Comment on above: Performed By: #### C HM7, HFP, HDLT #### [facility] (DEFAULT) [address] [place] [address] Total Cholesterol/HDL Ratio 5.3 High <4.5 [facility] Comment on above: Performed By: #### C HM7, HFP, HDLT #### [facility] (DEFAULT) [address] [place] [address] Triglyceride [Mass/Vol] 308 mg/dL High <150 [facility] Comment on above: Result Comment: [<15 0 mg/dL: Desirable] [150-199 mg/dL: Borderline] [200-499 mg/dL: High] [>500 mg/dL: Very High] Performed By: #### C HM7, HFP, HDLT #### [facility] (DEFAULT) [address] [place] [address] PTH INTACTon 01-16-2021 Intact PTH 79.3 pg/mL High 14.0-72.0 [facility] Comment on above: Performed By: #### I PTH #### [facility] (DEFAULT) [address] [place] [address] TSHon 01-16-2021 TSH 3.684 uIU/mL Normal 0.550-4.780 [facility] Comment on above: Performed By: #### T SH #### [facility] (DEFAULT) [address] [address] VITAMIN D (25-HYDROXY,TOTAL) on 01-16-2021 25-OH Vitamin D Total 18.3 ng/mL Low 30.0-100.0 [facility] Comment on above: Order Comment: Vitam in D values have been shown to be falsely decreased in lipemic samples and should be interpreted with caution. Result Comment: <10 Deficiency 10-29 Insufficiency 30-100 Optimal Level >100 Possible Toxicity Performed By: #### D 25OH #### [facility] (DEFAULT) [address] [place] [address] Basic Metabolic Panelon 11-19 Anion gap [Moles/Vol] 8 mmol/L Low 10 - 2 0 mmol/L [facility] Calcium [Mass/Vol] 7.8 mg/dL Low 8.4 - 10. 2 mg/dL [facility] Chloride [Moles/Vol] 112 mmol/L High 98 - 10 8 mmol/L [facility] Creatinine [Mass/Vol] 0.98 mg/dL 0.40 - 1.10 [facility] GFR/1.73 sq M predicted among non-blacks MDRD (S/P/Bld) [Vol rate/Area] The eGFR should be used for monitoring renal function only and not for medication dosing. [facility] GFR/1.73 sq M.predicted CKD-EPI (S/P/Bld) [Vol rate/Area] 63 >=60 mL/min/1.73 m2 [facility] Glucose [Mass/Vol] 94 mg/dL 65 - 99 mg/dL [facility] HCO3 [Moles/Vol] 28 mmol/L 21 - 32 mmol/L [facility] Interpretation and review of laboratory results Abnormal [facility] Potassium [Moles/Vol] 3.8 mmol/L 3.5 - 5.1 mmol/L [facility] Sodium [Moles/Vol] 144 mmol/L 135 - 145 mmol/L [facility] Urea nitrogen [Mass/Vol] 14 mg/dL 8 - 25 mg/dL [facility] Urea nitrogen/Creatinine [Mass ratio] 14.3 mg/mg [facility] CBC WITH AUTO DIFFERENTIALon 12-01-2020 Basophils (Bld) [#/Vol] 0.01 10*3/uL [facility] Basophils/100 WBC (Bld) 0.3 % [facility] Eosinophils (Bld) [#/Vol] 0.18 10*3/uL [facility] Eosinophils/100 WBC (Bld) 5.1 % [facility] Erythrocyte distribution width (RBC) [Entitic vol] 14.6 % 11.6 - 14.8 % [facility] Hematocrit (Bld) [Volume fraction] 35.4 % Low 36.0 - 46.0 % [facility] Hemoglobin (Bld) [Mass/Vol] 11.8 g/dL Low 12.0 - 16.0 g/dL [facility] Immature granulocytes (Bld) [#/Vol] 0.01 10*3/uL [facility] Immature granulocytes/100 WBC (Bld) 0.30 % [facility] Comment on above: The IG parameter is the percentage of metamyelocytes, myelocytes and promyelocytes. An immature granulocyte count (IG) of 1% or more suggests the possibility of infection, an IG count of 3% is very likely related to an infection. Interpretation and review of laboratory results Abnormal [facility] Lymphocytes (Bld) [#/Vol] 1.33 10*3/uL [facility] Lymphocytes/100 WBC (Bld) 38.0 % [facility] MCH (RBC) [Entitic mass] 31.1 pg 26.0 - 34.0 pg [facility] MCHC (RBC) [Mass/Vol] 33.3 g/dL 31.0 - 37.0 g/dL [facility] MCV (RBC) [Entitic vol] 93.2 fL 80.0 - 100.0 fL [facility] Monocytes (Bld) [#/Vol] 0.20 10*3/uL Low [facility] Monocytes/100 WBC (Bld) 5.7 % [facility] Neutrophils (Bld) [#/Vol] 1.77 10*3/uL [facility] Neutrophils/100 WBC (Bld) 50.6 % [facility] Nucleated RBC (Bld) [#/Vol] 0.00 10*3/uL [facility] Nucleated RBC/100 WBC (Bld) [Ratio] 0.0 % [facility] Platelet mean volume (Bld) [Entitic vol] 11.6 fL 9.4 - 12.4 fL [facility] Platelets (Bld) [#/Vol] 96 10*3/uL Low [facility] RBC (Bld) [#/Vol] 3.80 10*6/uL Low [facility] WBC (Bld) [#/Vol] 3.50 10*3/uL Low [facility] Basic Metabolic Panelon 11-19 Anion gap [Moles/Vol] 9 mmol/L Low 10 - 2 0 mmol/L [facility] Calcium [Mass/Vol] 7.4 mg/dL Low 8.4 - 10. 2 mg/dL [facility] Chloride [Moles/Vol] 111 mmol/L High 98 - 10 8 mmol/L [facility] Creatinine [Mass/Vol] 1.00 mg/dL 0.40 - 1.10 [facility] GFR/1.73 sq M predicted among non-blacks MDRD (S/P/Bld) [Vol rate/Area] The eGFR should be used for monitoring renal function only and not for medication dosing. [facility] GFR/1.73 sq M.predicted CKD-EPI (S/P/Bld) [Vol rate/Area] 62 >=60 mL/min/1.73 m2 [facility] Glucose [Mass/Vol] 95 mg/dL 65 - 99 mg/dL [facility] HCO3 [Moles/Vol] 26 mmol/L 21 - 32 mmol/L [facility] Interpretation and review of laboratory results Abnormal [facility] Potassium [Moles/Vol] 3.7 mmol/L 3.5 - 5.1 mmol/L [facility] Sodium [Moles/Vol] 142 mmol/L 135 - 145 mmol/L [facility] Urea nitrogen [Mass/Vol] 15 mg/dL 8 - 25 mg/dL [facility] Urea nitrogen/Creatinine [Mass ratio] 15.0 mg/mg [facility] CBC WITH AUTO DIFFERENTIALon 11-30-2020 Basophils (Bld) [#/Vol] 0.02 10*3/uL [facility] Basophils/100 WBC (Bld) 0.6 % [facility] Eosinophils (Bld) [#/Vol] 0.18 10*3/uL [facility] Eosinophils/100 WBC (Bld) 5.0 % [facility] Erythrocyte distribution width (RBC) [Entitic vol] 14.6 % 11.6 - 14.8 % [facility] Hematocrit (Bld) [Volume fraction] 36.5 % 36.0 - 46.0 % [facility] Hemoglobin (Bld) [Mass/Vol] 12.1 g/dL 12.0 - 16.0 g/dL [facility] Immature granulocytes (Bld) [#/Vol] 0.02 10*3/uL [facility] Immature granulocytes/100 WBC (Bld) 0.60 % [facility] Comment on above: The IG parameter is the percentage of metamyelocytes, myelocytes and promyelocytes. An immature granulocyte count (IG) of 1% or more suggests the possibility of infection, an IG count of 3% is very likely related to an infection. Interpretation and review of laboratory results Abnormal [facility] Lymphocytes (Bld) [#/Vol] 1.37 10*3/uL [facility] Lymphocytes/100 WBC (Bld) 38.3 % [facility] MCH (RBC) [Entitic mass] 30.9 pg 26.0 - 34.0 pg [facility] MCHC (RBC) [Mass/Vol] 33.2 g/dL 31.0 - 37.0 g/dL [facility] MCV (RBC) [Entitic vol] 93.1 fL 80.0 - 100.0 fL [facility] Monocytes (Bld) [#/Vol] 0.23 10*3/uL Low [facility] Monocytes/100 WBC (Bld) 6.4 % [facility] Neutrophils (Bld) [#/Vol] 1.76 10*3/uL [facility] Neutrophils/100 WBC (Bld) 49.1 % [facility] Nucleated RBC (Bld) [#/Vol] 0.00 10*3/uL [facility] Nucleated RBC/100 WBC (Bld) [Ratio] 0.0 % [facility] Platelet mean volume (Bld) [Entitic vol] 11.6 fL 9.4 - 12.4 fL [facility] Platelets (Bld) [#/Vol] 102 10*3/uL Low [facility] RBC (Bld) [#/Vol] 3.92 10*6/uL Low [facility] WBC (Bld) [#/Vol] 3.58 10*3/uL Low [facility] Basic Metabolic Panelon 11-19 Anion gap [Moles/Vol] 8 mmol/L Low 10 - 2 0 mmol/L [facility] Calcium [Mass/Vol] 7.5 mg/dL Low 8.4 - 10. 2 mg/dL [facility] Chloride [Moles/Vol] 106 mmol/L 98 - 10 8 mmol/L [facility] Creatinine [Mass/Vol] 1.02 mg/dL 0.40 - 1.10 [facility] GFR/1.73 sq M predicted among non-blacks MDRD (S/P/Bld) [Vol rate/Area] The eGFR should be used for monitoring renal function only and not for medication dosing. [facility] GFR/1.73 sq M.predicted CKD-EPI (S/P/Bld) [Vol rate/Area] 60 >=60 mL/min/1.73 m2 [facility] Glucose [Mass/Vol] 100 mg/dL High 65 - 99 mg/dL [facility] HCO3 [Moles/Vol] 30 mmol/L 21 - 32 mmol/L [facility] Interpretation and review of laboratory results Abnormal [facility] Potassium [Moles/Vol] 3.0 mmol/L Low 3.5 - 5.1 mmol/L [facility] Sodium [Moles/Vol] 141 mmol/L 135 - 145 mmol/L [facility] Urea nitrogen [Mass/Vol] 16 mg/dL 8 - 25 mg/dL [facility] Urea nitrogen/Creatinine [Mass ratio] 15.7 mg/mg [facility] CBC WITH AUTO DIFFERENTIALon 11-29-2020 Basophils (Bld) [#/Vol] 0.03 10*3/uL [facility] Basophils/100 WBC (Bld) 0.5 % [facility] Eosinophils (Bld) [#/Vol] 0.26 10*3/uL [facility] Eosinophils/100 WBC (Bld) 4.8 % [facility] Erythrocyte distribution width (RBC) [Entitic vol] 14.3 % 11.6 - 14.8 % [facility] Hematocrit (Bld) [Volume fraction] 38.0 % 36.0 - 46.0 % [facility] Hemoglobin (Bld) [Mass/Vol] 12.5 g/dL 12.0 - 16.0 g/dL [facility] Immature granulocytes (Bld) [#/Vol] 0.01 10*3/uL [facility] Immature granulocytes/100 WBC (Bld) 0.20 % [facility] Comment on above: The IG parameter is the percentage of metamyelocytes, myelocytes and promyelocytes. An immature granulocyte count (IG) of 1% or more suggests the possibility of infection, an IG count of 3% is very likely related to an infection. Interpretation and review of laboratory results Abnormal [facility] Lymphocytes (Bld) [#/Vol] 1.93 10*3/uL [facility] Lymphocytes/100 WBC (Bld) 35.3 % [facility] MCH (RBC) [Entitic mass] 30.9 pg 26.0 - 34.0 pg [facility] MCHC (RBC) [Mass/Vol] 32.9 g/dL 31.0 - 37.0 g/dL [facility] MCV (RBC) [Entitic vol] 94.1 fL 80.0 - 100.0 fL [facility] Monocytes (Bld) [#/Vol] 0.36 10*3/uL [facility] Monocytes/100 WBC (Bld) 6.6 % [facility] Neutrophils (Bld) [#/Vol] 2.87 10*3/uL [facility] Neutrophils/100 WBC (Bld) 52.6 % [facility] Nucleated RBC (Bld) [#/Vol] 0.00 10*3/uL [facility] Nucleated RBC/100 WBC (Bld) [Ratio] 0.0 % [facility] Platelet mean volume (Bld) [Entitic vol] 12.0 fL 9.4 - 12.4 fL [facility] Platelets (Bld) [#/Vol] 126 10*3/uL Low [facility] RBC (Bld) [#/Vol] 4.04 10*6/uL [facility] WBC (Bld) [#/Vol] 5.46 10*3/uL [facility] Pot[facility] Levelon 11-29-2020 Interpretation and review of laboratory results Normal [facility] Potassium [Moles/Vol] 4.0 mmol/L 3.5 - 5.1 mmol/L [facility] Ultrasound duplex venous leg righton 11-29-2020 Interface, Rad In Heartlab Xper Echopacs - 11/29/2020 3:52 PM EST Patient Info Name: MICHELINE FOX Age: 60 years : 1960 Gender: Female Exam Date: 11/29/2020 2:49 PM Patient Status: Inpatient Rigger Chief: Jo Ann Mari RVT Referring Physician: ERMELINDA Kennedy; Indications M79.661 - Pain in right lower leg Procedure Description 35438 Duplex examination using B-mode, color and spectral [...] Garret Rios MD on 11/29/2020 03:51 PM [facility] Patient Info Name: MICHELINE FOX Age: 60 years : 1960 Gender: Female Exam Date: 11/29/2020 2:49 PM Patient Status: Inpatient Rigger Chief: Jo Ann Mari RVT Referring Physician: ERMELINDA Kennedy; Indications M79.661 - Pain in right lower leg Procedure Description 06464 Duplex examination using B-mode, color and spectral [...] Garret Rios MD on 11/29/2020 03:51 PM [facility] BMPon 11-28-2020 Anion gap [Moles/Vol] 11 mmol/L 10 - 2 0 mmol/L [facility] Calcium [Mass/Vol] 8.0 mg/dL Low 8.4 - 10. 2 mg/dL [facility] Chloride [Moles/Vol] 107 mmol/L 98 - 10 8 mmol/L [facility] Creatinine [Mass/Vol] 0.97 mg/dL 0.40 - 1.10 Oh [facility] GFR/1.73 sq M predicted among non-blacks MDRD (S/P/Bld) [Vol rate/Area] The eGFR should be used for monitoring renal function only and not for medication dosing. [facility] GFR/1.73 sq M.predicted CKD-EPI (S/P/Bld) [Vol rate/Area] 64 >=60 mL/min/1.73 m2 [facility] Glucose [Mass/Vol] 100 mg/dL High 65 - 99 mg/dL [facility] HCO3 [Moles/Vol] 28 mmol/L 21 - 32 mmol/L [facility] Interpretation and review of laboratory results Abnormal [facility] Potassium [Moles/Vol] 3.7 mmol/L 3.5 - 5.1 mmol/L [facility] Comment on above: moderate hemolysis, result may be falsely increased. Sodium [Moles/Vol] 142 mmol/L 135 - 145 mmol/L [facility] Urea nitrogen [Mass/Vol] 16 mg/dL 8 - 25 mg/dL [facility] Urea nitrogen/Creatinine [Mass ratio] 16.5 mg/mg [facility] CBC WITH AUTO DIFFERENTIALon 11-28-2020 Basophils (Bld) [#/Vol] 0.04 10*3/uL [facility] Basophils/100 WBC (Bld) 0.7 % [facility] Eosinophils (Bld) [#/Vol] 0.23 10*3/uL [facility] Eosinophils/100 WBC (Bld) 4.1 % [facility] Erythrocyte distribution width (RBC) [Entitic vol] 14.4 % 11.6 - 14.8 % [facility] Hematocrit (Bld) [Volume fraction] 40.7 % 36.0 - 46.0 % [facility] Hemoglobin (Bld) [Mass/Vol] 13.9 g/dL 12.0 - 16.0 g/dL [facility] Immature granulocytes (Bld) [#/Vol] 0.02 10*3/uL [facility] Immature granulocytes/100 WBC (Bld) 0.40 % [facility] Comment on above: The IG parameter is the percentage of metamyelocytes, myelocytes and promyelocytes. An immature granulocyte count (IG) of 1% or more suggests the possibility of infection, an IG count of 3% is very likely related to an infection. Interpretation and review of laboratory results Abnormal [facility] Lymphocytes (Bld) [#/Vol] 1.71 10*3/uL [facility] Lymphocytes/100 WBC (Bld) 30.8 % [facility] MCH (RBC) [Entitic mass] 30.8 pg 26.0 - 34.0 pg [facility] MCHC (RBC) [Mass/Vol] 34.2 g/dL 31.0 - 37.0 g/dL [facility] MCV (RBC) [Entitic vol] 90.0 fL 80.0 - 100.0 fL [facility] Monocytes (Bld) [#/Vol] 0.31 10*3/uL [facility] Monocytes/100 WBC (Bld) 5.6 % [facility] Neutrophils (Bld) [#/Vol] 3.24 10*3/uL [facility] Neutrophils/100 WBC (Bld) 58.4 % [facility] Nucleated RBC (Bld) [#/Vol] 0.00 10*3/uL [facility] Nucleated RBC/100 WBC (Bld) [Ratio] 0.0 % [facility] Platelet mean volume (Bld) [Entitic vol] 11.6 fL 9.4 - 12.4 fL [facility] Platelets (Bld) [#/Vol] 125 10*3/uL Low [facility] RBC (Bld) [#/Vol] 4.52 10*6/uL [facility] WBC (Bld) [#/Vol] 5.55 10*3/uL [facility] COVID-19/Influenza A,B Molec ularon 11-28-2020 Influenza A Not Detected Not Detected [facility] Influenza B Not Detected Not Detected [facility] Interpretation and review of laboratory results Normal [facility] SARS-CoV-2 Not Detected Not Detected [facility] This test was performed under the FDA's [...] at the following links: For Healthcare Providers: https://www.[facility].gov/m edia/502401/download For Patients: https://www.[facility].gov/m edia/511821/download [facility] Lactic Acid, Plasmaon 2020 Interpretation and review of laboratory results Normal [facility] Lactate [Moles/Vol] 1.6 mmol/L 0.6 - 2. 0 mmol/L [facility] XR FOOT RIGHT 3+ VIEWS (GREGORIA DARD)on [...] to the proximal 1st and 2nd metacarpal. [facility] 1. Mild soft tissue swelling of the proximal aspect of the right foot. No fracture dislocation or bony lesion is noted. 2. Medial artifact of the midfoot as noted above. Workstation ID: [id number] [facility] Interface, Rad In Fuji Speechq - 11/28/2020 [...] midfoot as noted above. Workstation ID: [id number] [facility] Ultrasound duplex venous leg s bilaton 11-19-2020 Patient Info Name: MICHELINE FOX Age: 60 years : 1960 Gender: Female Exam Date: 11/19/2020 3:13 PM Patient Status: Outpatient Rigger Chief: Sofia Chappell RDMS, RVT Referring Physician: DIGNA ENRIQUEZ ; Indications M79.605 - Pain in left leg M79.604 - Pain in right leg - Bilateral pain of leg and foot Procedure Description 84893 Duplex examination using B-mode, color and spectral Doppler of extremity veins including responses to compression and other maneuvers; complete bilateral study. Conclusions * No evidence of deep or superficial vein thrombosis in either lower extremity. Risk Factors Patient has a history of hypertension and tobacco use-previous. . Report Signatures Finalized by Garret Rios MD on 11/19/2020 04:25 PM [facility] Interface, Rad In Heart[facility] Xper Echopacs - 11/19/2020 4:25 PM EST Patient Info Name: MICHELINE FOX Age: 60 years : 1960 Gender: Female Exam Date: 11/19/2020 3:13 PM Patient Status: Outpatient Rigger Chief: Sofia Chappell RDMS, JOHN Referring Physician: DIGNA ENRIQUEZ ; Indications M79.605 - Pain in left leg M79.604 - Pain in right leg - Bilateral pain of leg and foot Procedure Description 50684 Duplex examination using B-mode, color and spectral Doppler of extremity veins including responses to compression and other maneuvers; complete bilateral study. Conclusions * No evidence of deep or superficial vein thrombosis in either lower extremity. Risk Factors Patient has a history of hypertension and tobacco use-previous. . Report Signatures Finalized by Garret Rios MD on 11/19/2020 04:25 PM [facility] XR OR Fluoroscopy Timeon This is an auto finalized result. Please refer to patient chart for further information. [facility] SURG PATH REQUESTon 11-13-19 Case Report [facility] Comment on above: Result Comment: Surg ical Pathology Report Case: [id number] Authorizing Provider: Isael Hall MD Collected: 11/13/2020 09:05 AM Ordering Location: [facility] Received: 11/13/2020 09:52 AM Pathologist: Verito Caal MD Specimen: STOMACH, antrum r/o hp Performed By: #### S URGP #### [facility] (DEFAULT) [address] [place] [address] Clinical History Preop Diagnosis: Lef t upper quadrant abdominal pain. S/p bariatric surgery. R/o HP. Medical History: Chronic hepatitis C without mention of hepatic coma. Anxiety. Obesity. Adverse drug reaction. Shingles. Depression. Hypertension. Kidney infection. Hernia of abdominal cavity. [facility] Comment on above: Performed By: #### S URGP #### [facility] (DEFAULT) [address] [place] [address] Diagnosis Comments Deeper histologic sections were used in the interpretation of this case, and show no additional histopathologic. findings. [facility] Comment on above: Performed By: #### S URGP #### [facility] (DEFAULT) [address] [id number] Gross Description Normal [facility] Comment on above: Result Comment: The specimen is received in one properly labeled container with the patient's name and accession number. A. The specimen is designated antrum r/o HP and consists of two fragments of mcdonald-pink soft tissue, up to 0.3 cm in greatest dimension. TE 1 Lab Use Only: JobID [id number] Grosser for this case was: Slime Rod Performed By: #### S URGP #### [facility] (DEFAULT) [address] [place] [address] Images [facility] Comment on above: Performed By: #### S URGP #### [facility] (DEFAULT) [address] [place] [address] Microscopic Description A microscopic examination was performed. [facility] Comment on above: Performed By: #### S URGP #### [facility] (DEFAULT) [address] [place] [address] Pathologic Diagnosis [facility] Comment on above: Result Comment: Alan stiles, antrum, biopsy: Antral-oxyntic transitional mucosa with mild reactive changes No Helicobacter on H&E stained sections Performed By: #### S URGP #### [facility] (DEFAULT) [address] [place] [address] COVID-19, MOLECULARon 2020 SARS-COV-2 RNA (JOSE) Not Detected Normal Not Detected [facility] Comment on above: Order Comment: : COV ID-19 Lab Test Only (OP in UTM) Dr. Digna Enriquez [phone] Result Comment: This test was performed under [...] at the following links: For Healthcare Providers: https://www.[employer].gov/media/426431/download For Patients: https://www.[employer].gov/media/803767/download Performed By: #### L [id number] #### [facility] [address] [address] Vishnu Del Toro M.D. 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: Is : no Is : no REVIEW [...] SIGNS: T PRBP SpO2O2(LPM) %FiO2 Method 03-Aug-2020 16:14:[id number]/ 96 95 PHYSICAL EXAM CONSTITUTIONAL: Obese, toxic, [...] ill patient: no Electronic Signatures: Lisa Ac (CHIEF RADIOLOGIC TECHNOLOGIST-SAMPLE DISTRIBUTOR) (Signed 03-Aug-2020 18:29) Authored: HPI, PMH, ROS, PE, Results/Vital Signs, MDM/ED Course, Clinical Impression, Attestation, Chart Review, Scores Last Updated: 03-Aug-2020 18:29 by Lisa Ac (CHIEF RADIOLOGIC TECHNOLOGIST-SAMPLE DISTRIBUTOR) Normal [facility] ECG 12-LEADon 11-01-2019 Atrial Rate 68 BPM [facility] P Jacobson 45 degrees [facility] P-R Interval 172 ms [facility] Q-T Interval 434 ms [facility] QRS Duration 88 ms [facility] QTC Calculation (Bezet) 461 ms [facility] R Jacobson 20 degrees [facility] T Jacobson 31 degrees [facility] Ventricular Rate 68 BPM [facility] Normal sinus rhythm Possible Inferior infarct , age undetermined Possible Anterior infarct , age undetermined Abnormal ECG ECG Cart Interpretation see physician note for interpretation. Confirmed by Nargis Rhodes ([id number]) on 11/01/2019 4:46:58 PM [facility] POC B-type natriuretic pepti de (BNP)on 11-01-2019 Interpretation and review of laboratory results Normal [facility] Natriuretic peptide B (Bld) [Mass/Vol] 16.7 pg/mL <100 [facility] POC Basic Metabolic Panelon 11-01-2019 Calcium.ionized (Bld) [Mass/Vol] 4.2 mg/dL Low 4.5 - 5.3 mg/dL [facility] Chloride [Moles/Vol] 100 mmol/L 98 - 10 8 mmol/L [facility] CO2 [Moles/Vol] 31 mmol/L 21 - 32 mmol/L [facility] Creatinine [Mass/Vol] 1.11 mg/dL High 0.40 - 1.10 [facility] GFR/1.73 sq M.predicted MDRD (S/P/Bld) [Vol rate/Area] 55 mL/min/{1.73_m2} Low >=60 mL/min/1.73 m2 [facility] Glucose [Mass/Vol] 198 mg/dL High 65 - 99 mg/dL [facility] Interpretation and review of laboratory results Abnormal [facility] Potassium [Moles/Vol] 3.2 mmol/L Low 3.5 - 5.1 mmol/L [facility] Sodium [Moles/Vol] 142 mmol/L 135 - 145 mmol/L [facility] Urea nitrogen [Mass/Vol] 17 mg/dL 8 - 25 mg/dL [facility] POC CBC and Differentialon 0 11-01-2019 Erythrocyte distribution width (RBC) [Entitic vol] 14.2 % 11.6 - 14.8 % [facility] Hematocrit (Bld) [Volume fraction] 37.3 % 36 - 46 % [facility] Hemoglobin (Bld) [Mass/Vol] 12.5 g/dL 12 - 16 g/dL [facility] Interpretation and review of laboratory results Abnormal [facility] Lymphocytes (Bld) [#/Vol] 1.1 10*3/uL [facility] Lymphocytes/100 WBC (Bld) 31.7 % [facility] MCH (RBC) [Entitic mass] 29.6 pg 26 - 34 pg [facility] MCHC (RBC) [Mass/Vol] 33.5 g/dL 31 - 37 g/dL [facility] MCV (RBC) [Entitic vol] 88.4 fL 80 - 100 fL [facility] Mixed 5.6 % [facility] Mixed Abs 0.2 K/mcl [facility] Neutrophil Abs 2.1 [facility] Neutrophils/100 WBC (Bld) 62.7 % [facility] Platelet mean volume (Bld) [Entitic vol] 12.2 fL 9 - 15.5 fL [facility] Platelets (Bld) [#/Vol] 101 10*3/uL Low [facility] RBC (Bld) [#/Vol] 4.22 10*6/uL [facility] WBC (Bld) [#/Vol] 3.40 10*3/uL Low [facility] ealth Comment See Comment Critically abnormal (none) [facility] Comment on above: CRITICAL. CBCD reord ered and sent to . Abnormally low platelet count. Erythrocyte distribution width (RBC) [Entitic vol] 14.2 % 11.6 - 14.8 % [facility] Hematocrit (Bld) [Volume fraction] 37.7 % 36 - 46 % [facility] Hemoglobin (Bld) [Mass/Vol] 12.7 g/dL 12 - 16 g/dL [facility] Interpretation and review of laboratory results Abnormal [facility] Lymphocytes (Bld) [#/Vol] 1.0 10*3/uL [facility] Lymphocytes/100 WBC (Bld) 31.4 % [facility] MCH (RBC) [Entitic mass] 29.5 pg 26 - 34 pg [facility] MCHC (RBC) [Mass/Vol] 33.7 g/dL 31 - 37 g/dL [facility] MCV (RBC) [Entitic vol] 87.7 fL 80 - 100 fL [facility] Mixed 3.8 % [facility] Mixed Abs 0.1 K/mcl [facility] Neutrophil Abs 2.2 [facility] Neutrophils/100 WBC (Bld) 64.8 % [facility] Platelet mean volume (Bld) [Entitic vol] 12.2 fL 9 - 15.5 fL [facility] Platelets (Bld) [#/Vol] 96 10*3/uL Low [facility] RBC (Bld) [#/Vol] 4.30 10*6/uL [facility] WBC (Bld) [#/Vol] 3.30 10*3/uL Low [facility] POC D-dimeron 11-01-2019 Fibrin D-dimer DDU (PPP) [Mass/Vol] <100 <350 ng/mL DDU [facility] Interpretation and review of laboratory results Normal [facility] A D-Dimer concentration of <350 ng/mL DDU [...] normal patients are less than 400 ng/ml. [facility] POC Influenza A/Bon 11-01-19 20 Interpretation and review of laboratory results Normal [facility] POC Influenza B Ag Not Detected Not Detected [facility] POC Rapid Influenza A Ag Not Detected Not Detected [facility] POC Troponin Ion 11-01-2019 Interpretation and review of laboratory results Normal [facility] Troponin I.cardiac [Mass/Vol] ng/mL <0.05 ng/mL [facility] XR Chest 1 Viewon 11-01-2019 No acute cardiopulmonary process. FÁTIMA/justinek Workstation ID: [id number] [facility] Interface, Rad In Fuji Speechq - 11/01/2019 [...] acute cardiopulmonary process. JAR/sjk Workstation ID: [id number] [facility] EXAMINATION: XR CHES T PA/AP 11/01/2019 1:35 [...] pleural effusion. No obvious acute osseous abnormality. [facility] XR Shoulder Right 2+ Views ( Standard)on [...] mild-moderate degenerative changes of the acromioclavicular joint. [facility] Interface, Rad In Fuji Speechq - 11/01/2019 [...] dislocation is seen. DWR/trw Workstation ID: [id number] [facility] 1. There appears to be at least mild osteoarthritis of the glenohumeral joint and mild-moderate osteoarthritis of the acromioclavicular joint. 2. No fracture or dislocation is seen. DWR/trw Workstation ID: [id number] [facility] CT PULMONARY ARTERIESon 08-23 1. No acute PE is identified. Main pulmonary artery and thoracic aorta are normal caliber size. 2. Mild cardiomegaly. 3. Prior cholecystectomy and gastric bypass surgery. GJT/mjr Workstation ID: [id number] [facility] EXAMINATION: CT SCAN OF THE CHEST WITH CONTRAST FOR CT PULMONARY ANGIOGRAPHY, 09/20/2019 COMPARISON: CT scan of the chest, abdomen and upper pelvis with dissection technique, 08/04/2011. HISTORY: Dx: R06.09 (MCGOWAN (dyspnea on exertion)) Injury/Trauma or Illness?:Illness/Othe r How long have you had these symptoms (acute/chronic)?:Herb Digger romelia Dyspnea, chronic; Shortness of breath TECHNIQUE: [...] lower cervical spine. No acute osseous abnormality. [facility] Interface, Rad In Fuji Speechq - 09/20/2019 4:16 PM EST EXAMINATION: CT SCAN OF THE CHEST WITH CONTRAST FOR CT PULMONARY ANGIOGRAPHY, 09/20/2019 COMPARISON: CT scan of the chest, abdomen and upper pelvis with dissection technique, 08/04/2011. HISTORY: Dx: R06.09 (MCGOWAN (dyspnea on exertion)) Injury/Trauma or Illness?:Illness/Othe r How long have you had these symptoms (acute/chronic)?:Herb Digger romelia Dyspnea, chronic; Shortness of breath TECHNIQUE: [...] gastric bypass surgery. GJT/herberthr Workstation ID: [id number] [facility] ECHOCARDIOGRAM COMPLETEon Transthoracic Echocardiogram Patient: EVIN Bennett [facility] Rec#: [id number] (Age): 1960(59y) Height: 165.1(cm)/64(in Study Date: 09/05/2019 Weight: 132.9(kg)/292(l Room#: BSA: [id number] Type: Loc: Sex: F Reading: Vaishnavi Hoffmann M.D. Referring: Leticia Sylvester MD Ordering ProvidDr. Giorgi Thomas MD Home School Teacher: Elyse Messer RN RD History: Hypertension. Sleep [...] at 09/05/2019 15:55:35 by: Vaishnavi Hoffmann M.D. [facility], Rad In Heart[facility] Xper Echopacs - 09/05/2019 5:57 PM EST Transthoracic Echocardiogram Patient: EVIN Bennett [facility] Rec#: [id number] (Age): 1960(59y) Height: 165.1(cm)/64(in Study Date: 09/05/2019 Weight: 132.9(kg)/292(l Room#: BSA: [id number] Type: Loc: Sex: F Reading: Vaishnavi Hoffmann M.D. Referring: Leticia Sylvester MD Ordering ProvidDr. Giorgi Thomas MD Home School Teacher: Elyse Messer RN RDCS History: Hypertension. Sleep [...] at 09/05/2019 15:55:35 by: Vaishnavi Hoffmann M.D. [facility] BUNon 08-22-2019 Interpretation and review of laboratory results Normal [facility] Urea nitrogen [Mass/Vol] 12 mg/dL 8 - 25 mg/dL [facility] Creatinine, serumon 08-22-20 19 Creatinine [Mass/Vol] 1.07 mg/dL 0.4 - 1.1 mg/dL [facility] GFR/1.73 sq M predicted among non-blacks MDRD (S/P/Bld) [Vol rate/Area] The eGFR should be used for monitoring renal function only and not for medication dosing. [facility] GFR/1.73 sq M.predicted CKD-EPI (S/P/Bld) [Vol rate/Area] 57 Low >=60 mL/min/1.73 m2 [facility] Interpretation and review of laboratory results Abnormal [facility] CBCon 07-28-2019 Erythrocyte distribution width (RBC) [Entitic vol] 13.6 % 11.6 - 14.8 % [facility] Hematocrit (Bld) [Volume fraction] 41.7 % 36 - 46 % [facility] Hemoglobin (Bld) [Mass/Vol] 13.9 g/dL 12 - 16 g/dL [facility] Interpretation and review of laboratory results Abnormal [facility] MCH (RBC) [Entitic mass] 29.7 pg 26 - 34 pg [facility] MCHC (RBC) [Mass/Vol] 33.3 g/dL 31 - 37 g/dL [facility] MCV (RBC) [Entitic vol] 89.1 fL 80 - 100 fL [facility] Nucleated RBC (Bld) [#/Vol] 0.00 10*3/uL [facility] Nucleated RBC/100 WBC (Bld) [Ratio] 0.0 % [facility] Platelet mean volume (Bld) [Entitic vol] 12.1 fL 9 - 15.5 fL [facility] [facility] Platelets (Bld) [#/Vol] 132 10*3/uL Low [facility] RBC (Bld) [#/Vol] 4.68 10*6/uL [facility] WBC (Bld) [#/Vol] 4.54 10*3/uL [facility] Creatinine, serumon 07-28-20 19 Creatinine [Mass/Vol] 0.78 mg/dL 0.4 - 1.1 mg/dL [facility] GFR/1.73 sq M predicted among non-blacks MDRD (S/P/Bld) [Vol rate/Area] The eGFR should be used for monitoring renal function only and not for medication dosing. [facility] GFR/1.73 sq M.predicted CKD-EPI (S/P/Bld) [Vol rate/Area] 84 >=60 mL/min/1.73 m2 [facility] Otheron 07-28-2019 Interpretation and review of laboratory results Normal [facility] Potassium Levelon 07-28-2019 Potassium [Moles/Vol] 3.9 mmol/L 3.5 - 5.1 mmol/L [facility] US ABDOMEN LIMITED STUDYon 09-27-2018 1. Cirrhotic appearance to the liver. Elevated liver echotexture suggests underlying fatty infiltration. No focal hepatic mass. 2. Status post cholecystectomy. No biliary ductal dilatation. 3. Inadequate visualization of the pancreas. Workstation ID: [id number] [facility] EXAMINATION: US ABDOMEN LIMITED STUDY HISTORY: Epigastric [...] measures 10.1 cm in length. No hydronephrosis. [facility] Interface, Rad In [employer] - 07/28/2019 [...] visualization of the pancreas. Workstation ID: [id number] [facility] CARDIAC CATHETERIZATIONon Cardiac Catheterization Operative Report Patient: [...] chart. Patient was brought to the cardiac Slip Caster and prepped and draped in usual sterile fashion. Using a modified Seldinger technique access was established and a 6 Lithuanian sheath was placed in the right radial [...] by: Hari Acosta M.D 07/08/19 9:53 AM [facility] ECG 12-LEADon 06-24-2019 Atrial Rate [facility] P Jacobson [facility] P-R Interval [facility] Q-T Interval [facility] Q-T Interval (corrected) [facility] QRS Duration [facility] QTC Calculation (Bezet) [facility] R Jacobson [facility] T Jacobson [facility] Ventricular Rate [facility] [place] th Otheron 06-24-2019 EXAMINATION: 2-VIEW XR CHEST AP/PA AND LAT, 06/23/2019 COMPARISON: Chest, 04/26/2018. HISTORY: Dx: R07.9 (Chest pain, unspecified type) Injury/Trauma or Illness?:Illness/Othe r How long have you had these symptoms (acute/chronic)?:Acut e mcgowan [facility] 1. No acute cardiopulmonary disease. 2. Normal heart size. 3. No acute osseous abnormality. Orthopedic fixation of the lower visualized cervical spine redemonstrated. [employer] Workstation ID: [id number] [facility] Interface, Rad In [facility] - 06/24/2019 12:41 AM EDT EXAMINATION: 2-VIEW XR CHEST AP/PA AND LAT, 06/23/2019 COMPARISON: Chest, 04/26/2018. HISTORY: Dx: R07.9 (Chest pain, unspecified type) Injury/Trauma or Illness?:Illness/Othe r How long have you had these symptoms (acute/chronic)?:Acut e mcgowan IMPRESSION: 1. No acute cardiopulmonary disease. 2. Normal heart size. 3. No acute osseous abnormality. Orthopedic fixation of the lower visualized cervical spine redemonstrated. [employer] Workstation ID: [id number] [facility] Comprehensive metabolic pane josé 06-23-2019 Albumin [Mass/Vol] 3.9 g/dL 3.2 - 5.2 g/dL [facility] ALP [Catalytic activity/Vol] 98 U/L 40 - 150 U/L [facility] ALT [Catalytic activity/Vol] 50 U/L 14 - 65 U/L [facility] Anion gap [Moles/Vol] 12 mmol/L 10 - 2 0 mmol/L [facility] AST [Catalytic activity/Vol] 31 U/L 0 - 45 U/L [facility] Bilirubin [Mass/Vol] 0.5 mg/dL 0 - 1.3 mg/dL [facility] Cal[facility] [Mass/Vol] 8.2 mg/dL Low 8.4 - 10. 2 mg/dL [facility] Chloride [Moles/Vol] 106 mmol/L 98 - 10 8 mmol/L [facility] Creatinine [Mass/Vol] 1.04 mg/dL 0.4 - 1.1 mg/dL [facility] GFR/1.73 sq M predicted among non-blacks MDRD (S/P/Bld) [Vol rate/Area] The eGFR should be used for monitoring renal function only and not for medication dosing. [facility] GFR/1.73 sq M.predicted CKD-EPI (S/P/Bld) [Vol rate/Area] 59 Low >=60 mL/min/1.73 m2 [facility] Glucose [Mass/Vol] 89 mg/dL 65 - 99 mg/dL [facility] HCO3 [Moles/Vol] 28 mmol/L 21 - 32 mmol/L [facility] Interpretation and review of laboratory results Abnormal [facility] Potassium [Moles/Vol] 4.0 mmol/L 3.5 - 5.1 mmol/L [facility] Protein [Mass/Vol] 7.3 g/dL 6 - 8 g/dL [facility] alth Sodium [Moles/Vol] 142 mmol/L 135 - 145 mmol/L [facility] Urea nitrogen [Mass/Vol] 26 mg/dL High 8 - 25 mg/dL [facility] Urea nitrogen/Creatinine [Mass ratio] 25.0 mg/mg High [facility] NT PRO BNPon 06-23-2019 Natriuretic peptide.B prohormone N-Terminal [Mass/Vol] 35 pg/mL 0 - 300 pg/mL [facility] Comment on above: Please note referenc e range change as of 09/08/18. [employer] Study Cut-offs Rule In: < /= 50 Years >450 pg/mL 51 Years - 75 Years >900 pg/mL 76 Years - 99 Years >1800 pg/mL Rule Out: All patients <300 pg/mL [facility] Otheron 06-23-2019 Interpretation and review of laboratory results Normal [facility] TSH with Reflex Free T4on TSH Qn 1.85 m[IU]/L [facility] CT Abdomen Pelvis Without Co ntraston 05-02-2019 [...] bowel obstruction. The appendix is not visualized. [employer] Workstation ID: [id number] [facility] EXAMINATION: CT ABDOMEN PELVIS WITHOUT CONTRAST, 05/02/2019 [...] is not visualized. No acute osseous abnormality. [facility], Rad In Micah Sesayq - 05/02/2019 4:08 [...] is not visualized. [employer] Workstation ID: [id number] [facility] CPKon 07-19-2018 CPK 57 U/L Normal 40-170 [facility] Comment on above: Performed By: #### N TPROBNP, CHEM8, CBCDIF, PT, PTT, EDCTNI ####Unless otherwise noted, all testing performed by [address] [phone]: [id number] Director: Ramakrishna Browne M.D. CPK, Totalon 07-19-2018 CK enzyme act/vol 57 U/L Invalid Interpretation Code 40 - 170 U/L [facility] Myoglobinon 07-19-2018 Myoglobin mass conc 40 ng/mL Normal 13-71 [facility] Comment on above: Performed By: #### N TPROBNP, CHEM8, CBCDIF, PT, PTT, EDCTNI ####Unless otherwise noted, all testing performed by [address] [phone]: [id number] Director: Ramakrishna Browne M.D. Myoglobin, Bloodon 8 Myoglobin mass conc 40 ng/mL Invalid Interpretation Code 13 - 71 ng/mL [facility] 25-Hydroxy D Totalon 018 25-Hydroxy D Total 32 ng/mL Normal 30-100 [facility] Comment on above: Result Comment: Plelucio diaz [...] ####Unless otherwise noted, all testing performed by [address] [phone]: [id number] Director: Ramakrishna Browne M.D. Francesca 06-25-2018 ALT enzyme act/vol 36 U/L Invalid Interpretation Code 14 - 65 U/L [facility] Comment on above: This test result amanda ht be falsely depressed or falsely elevated on samples drawn from patients taking Sulfasalazine and Sulfapyridine. Venipuncture should occur prior to taking either of these drugs. ALT (SGPT)on 06-25-2018 ALT enzyme act/vol 36 U/L Normal 14-65 [facility] Comment on above: Result Comment: This test result might be falsely depressed or falsely elevated onsamples drawn from patients taking Sulfasalazine and Sulfapyridine.Venipuncture should occur prior to taking either of these drugs. Performed By: #### N TPROBNP, CHEM8, CBCDIF, PT, PTT, EDCTNI ####Unless otherwise noted, all testing performed by [address] [phone]: [id number] Director: Ramakrishna Browne M.D. Christa 06-25-2018 AST enzyme act/vol 25 U/L Invalid Interpretation Code 0 - 45 U/L [facility] Comment on above: This test result amanda ht be falsely depressed or falsely elevated on samples drawn from patients taking Sulfasalazine and Sulfapyridine. Venipuncture should occur prior to taking either of these drugs. AST (SGOT)on 06-25-2018 AST enzyme act/vol 25 U/L Normal 0-45 [facility] Comment on above: Result Comment: This test result might be falsely depressed or falsely elevated onsamples drawn from patients taking Sulfasalazine and Sulfapyridine.Venipuncture should occur prior to taking either of these drugs. Performed By: #### N TPROBNP, CHEM8, CBCDIF, PT, PTT, EDCTNI ####Unless otherwise noted, all testing performed by [facility], [place] [phone]: [id number] Director: Ramakrishna Browne M.D. Basic Metabolic Panelon Calcium mass conc 8.3 mg/dL Low 8.4 - 10.2 mg/dL [facility] Chloride molar conc 108 mmol/L Invalid Interpretation Code 98 - 108 mmol/L [facility] CO2 molar conc 25 mmol/L Invalid Interpretation Code 21 - 32 mmol/L [facility] Creatinine mass conc 0.83 mg/dL Invalid Interpretation Code 0.4 - 1.1 mg/dL [facility] GFR/1.73 sq M predicted among blacks MDRD vol rate/area (S/P/Bld) mL/min/{1.73_m2} Invalid Interpretation Code ml/min/1.73sq .m [facility] Comment on above: GFR Calc GFR/1.73 sq M predicted among non-blacks MDRD vol rate/area (S/P/Bld) mL/min/{1.73_m2} Invalid Interpretation Code ml/min/1.73sq .m [facility] Comment on above: Non- GFR Calc eGFR [...] 113 mg/dL High 70 - 99 mg/dL [facility] Comment on above: This test result amanda ht be falsely depressed or falsely elevated on samples drawn from patients taking Sulfasalazine and Sulfapyridine. Venipuncture should occur prior to taking either of these drugs. Potassium molar conc 4.2 mmol/L Invalid Interpretation Code 3.5 - 5.1 mmol/L [facility] Sodium molar conc 141 mmol/L Invalid Interpretation Code 135 - 145 mmol/L [facility] Urea nitrogen mass conc 23 mg/dL Invalid Interpretation Code 8 - 25 mg/dL [facility] Calcium mass conc 8.3 mg/dL Low 8.4-10.2 [facility] Comment on above: Performed By: #### N TPROBNP, CHEM8, CBCDIF, PT, PTT, EDCTNI ####Unless otherwise noted, all testing performed by [address] [phone]: [id number] Director: Ramakrishna Browne M.D. Chloride molar conc 108 mmol/L Normal 98-108 [facility] Comment on above: Performed By: #### N TPROBNP, CHEM8, CBCDIF, PT, PTT, EDCTNI ####Unless otherwise noted, all testing performed by [address] [phone]: [id number] Director: Ramakrishna Browne M.D. CO2 molar conc 25 mmol/L Normal 21-32 [facility] Comment on above: Performed By: #### N TPROBNP, CHEM8, CBCDIF, PT, PTT, EDCTNI ####Unless otherwise noted, all testing performed by [address] [phone]: [id number] Director: Ramakrishna Browne M.D. Creatinine mass conc 0.83 mg/dL Normal 0.40-1.10 [facility] Comment on above: Performed By: #### N TPROBNP, CHEM8, CBCDIF, PT, PTT, EDCTNI ####Unless otherwise noted, all testing performed by [place] [phone]: [id number] Director: Ramakrishna Browne M.D. GFR/1.73 sq M predicted among blacks MDRD vol rate/area (S/P/Bld) mL/min/{1.73_m2} Normal [facility] Comment on above: Result Comment: Afri can Greek GFR Calc Performed By: #### N TPROBNP, CHEM8, CBCDIF, PT, PTT, EDCTNI ####Unless otherwise noted, all testing performed by [place] [phone]: [id number] Director: Ramakrishna Browne M.D. GFR/1.73 sq M predicted among non-blacks MDRD vol rate/area (S/P/Bld) mL/min/{1.73_m2} Normal [facility] Comment on above: Result Comment: Non- GFR [...] ####Unless otherwise noted, all testing performed by [address] [phone]: [id number] Director: Ramakrishna Browne M.D. Glucose mass conc 113 mg/dL High 70-99 [facility] Comment on above: Result Comment: This test result might be falsely depressed or falsely elevated onsamples drawn from patients taking Sulfasalazine and Sulfapyridine.Venipuncture should occur prior to taking either of these drugs. Performed By: #### N TPROBNP, CHEM8, CBCDIF, PT, PTT, EDCTNI ####Unless otherwise noted, all testing performed by [address] [phone]: [id number] Director: Ramakrishna Browne M.D. Potassium molar conc 4.2 mmol/L Normal 3.5-5.1 [facility] Comment on above: Performed By: #### N TPROBNP, CHEM8, CBCDIF, PT, PTT, EDCTNI ####Unless otherwise noted, all testing performed by [address] [phone]: [id number] Director: Ramakrishna Browne M.D. Sodium molar conc 141 mmol/L Normal 135-145 [facility] Comment on above: Performed By: #### N TPROBNP, CHEM8, CBCDIF, PT, PTT, EDCTNI ####Unless otherwise noted, all testing performed by [address] [phone]: [id number] Director: Ramakrishna Browne M.D. Urea nitrogen mass conc 23 mg/dL Normal 8-25 [facility] Comment on above: Performed By: #### N TPROBNP, CHEM8, CBCDIF, PT, PTT, EDCTNI ####Unless otherwise noted, all testing performed by [address] [phone]: [id number] Director: Ramakrishna Browne M.D. CBCon 06-25-2018 Erythrocyte distribution width Auto Ratio (RBC) 15.0 % High 10 - 14.4 % [facility] Hematocrit Auto Volume Fraction (Bld) 38.4 % Invalid Interpretation Code 34.4 - 44.8 % [facility] Hemoglobin mass conc (Bld) 13.2 g/dL Invalid Interpretation Code 11.6 - 15.4 g/dL [facility] Interpretation and review of laboratory results Abnormal Invalid Interpretation Code [facility] MCH Auto Entitic mass (RBC) 29.2 pg Invalid Interpretation Code 27.9 - 33.9 pg [facility] MCHC Auto mass conc (RBC) 34.2 g/dL Invalid Interpretation Code 33.1 - 35.1 g/dL [facility] MCV Auto Entitic volume (RBC) 85.3 fL Invalid Interpretation Code [facility] Platelet mean volume Auto Entitic volume (Bld) 9.5 fL Invalid Interpretation Code [facility] Platelets Auto #/vol (Bld) 116 10*3/uL Low [facility] RBC Auto #/vol (Bld) 4.50 10*6/uL Invalid Interpretation Code [facility] WBC Auto #/vol (Bld) 3.4 10*3/uL Invalid Interpretation Code [facility] CBC w/o Diffon 06-25-2018 Erythrocyte distribution width Auto Ratio (RBC) 15.0 % High 10.0-14.4 [facility] Comment on above: Performed By: #### N TPROBNP, CHEM8, CBCDIF, PT, PTT, EDCTNI ####Unless otherwise noted, all testing performed by [address] [phone]: [id number] Director: Ramakrishna Browne M.D. Hematocrit Auto Volume Fraction (Bld) 38.4 % Normal 34.4-44.8 [facility] Comment on above: Performed By: #### N TPROBNP, CHEM8, CBCDIF, PT, PTT, EDCTNI ####Unless otherwise noted, all testing performed by [address] [phone]: [id number] Director: Ramakrishna Browne M.D. Hemoglobin mass conc (Bld) 13.2 g/dL Normal 11.6-15.4 [facility] Comment on above: Performed By: #### N TPROBNP, CHEM8, CBCDIF, PT, PTT, EDCTNI ####Unless otherwise noted, all testing performed by [address] [phone]: [id number] Director: Ramakrishna Browne M.D. MCH Auto Entitic mass (RBC) 29.2 pg Normal 27.9-33.9 [facility] Comment on above: Performed By: #### N TPROBNP, CHEM8, CBCDIF, PT, PTT, EDCTNI ####Unless otherwise noted, all testing performed by [address] [phone]: [id number] Director: Ramakrishna Browne M.D. MCHC Auto mass conc (RBC) 34.2 g/dL Normal 33.1-35.1 [facility] Comment on above: Performed By: #### N TPROBNP, CHEM8, CBCDIF, PT, PTT, EDCTNI ####Unless otherwise noted, all testing performed by [address] [phone]: [id number] Director: Ramakrishna Browne M.D. MCV Auto Entitic volume (RBC) 85.3 fL Normal 82.6-98.9 [facility] Comment on above: Performed By: #### N TPROBNP, CHEM8, CBCDIF, PT, PTT, EDCTNI ####Unless otherwise noted, all testing performed by [address] [phone]: [id number] Director: Ramakrishna Browne M.D. Platelet mean volume Auto Entitic volume (Bld) 9.5 fL Normal 7.0-10.6 [facility] Comment on above: Performed By: #### N TPROBNP, CHEM8, CBCDIF, PT, PTT, EDCTNI ####Unless otherwise noted, all testing performed by [address] [phone]: [id number] Director: Ramakrishna Browne M.D. Platelets Auto #/vol (Bld) 116 K/mcL Low 162-402 [facility] Comment on above: Performed By: #### N TPROBNP, CHEM8, CBCDIF, PT, PTT, EDCTNI ####Unless otherwise noted, all testing performed by [address] [phone]: [id number] Director: Ramakrishna Browne M.D. RBC Auto #/vol (Bld) 4.50 M/mcL Normal 3.7-5.0 [facility] Comment on above: Performed By: #### N TPROBNP, CHEM8, CBCDIF, PT, PTT, EDCTNI ####Unless otherwise noted, all testing performed by [address] [phone]: [id number] Director: Ramakrishna Browne M.D. WBC Auto #/vol (Bld) 3.4 K/mcL Normal 3.4-10.6 [facility] Comment on above: Performed By: #### N TPROBNP, CHEM8, CBCDIF, PT, PTT, EDCTNI ####Unless otherwise noted, all testing performed by [address] [phone]: [id number] Director: Ramakrishna Browne M.D. Hemoglobin A1Con 06-25-2018 Hemoglobin A1c/Hemoglobin.total mass fraction (Bld) 5.0 % Normal 4.1-6.5 [facility] Comment on above: Performed By: #### N TPROBNP, CHEM8, CBCDIF, PT, PTT, EDCTNI ####Unless otherwise noted, all testing performed by [address] [phone]: [id number] Director: Ramakrishna Browne M.D. Hemoglobin A1con 06-25-2018 Hemoglobin A1c/Hemoglobin.total mass fraction (Bld) 5.0 % Invalid Interpretation Code 4.1 - 6.5 % [facility] Lipid Panelon 06-25-2018 Cholesterol in HDL mass conc 56 mg/dL Invalid Interpretation Code 40 - 59 mg/dL [facility] Cholesterol in LDL mass conc 70 mg/dL Invalid Interpretation Code 10 - 150 mg/dL [facility] Cholesterol in VLDL mass conc 14 mg/dL Invalid Interpretation Code 5 - 40 mg/dL [facility] Cholesterol mass conc 140 mg/dL Invalid Interpretation Code 100 - 199 mg/dL [facility] Cholesterol.total/Cho lesterol in HDL mass ratio 2.5 {ratio} Low [facility] Comment on above: Female Coronary Hear t Disease Risk Factor (CHDRF): Average risk= 4.4 1/2 Average risk= 3.3 2 times Average risk= 7.1 Triglyceride mass conc 70 mg/dL Invalid Interpretation Code 25 - 120 mg/dL [facility] Cholesterol in HDL mass conc 56 mg/dL Normal 40-59 [facility] Comment on above: Performed By: #### N TPROBNP, CHEM8, CBCDIF, PT, PTT, EDCTNI ####Unless otherwise noted, all testing performed by [address] [phone]: [id number] Director: Ramakrishna Browne M.D. Cholesterol in LDL mass conc 70 mg/dL Normal 10-150 [facility] Comment on above: Performed By: #### N TPROBNP, CHEM8, CBCDIF, PT, PTT, EDCTNI ####Unless otherwise noted, all testing performed by [address] [phone]: [id number] Director: Ramakrishna Browne M.D. Cholesterol in VLDL mass conc 14 mg/dL Normal 5-40 [facility] Comment on above: Performed By: #### N TPROBNP, CHEM8, CBCDIF, PT, PTT, EDCTNI ####Unless otherwise noted, all testing performed by [address] [phone]: [id number] Director: Ramakrishna Browne M.D. Cholesterol mass conc 140 mg/dL Normal 100-199 [facility] Comment on above: Performed By: #### N TPROBNP, CHEM8, CBCDIF, PT, PTT, EDCTNI ####Unless otherwise noted, all testing performed by [address] [phone]: [id number] Director: Ramakrishna Browne M.D. Cholesterol.total/Cho lesterol in HDL mass ratio 2.5 {ratio} Low 3.2-5.0 [facility] Comment on above: Result Comment: Fema le Coronary Heart Disease Risk Factor (CHDRF):Average risk= 4.41/2 Average risk= 3.32 times Average risk= 7.1 Performed By: #### N TPROBNP, CHEM8, CBCDIF, PT, PTT, EDCTNI ####Unless otherwise noted, all testing performed by [address] [phone]: [id number] Director: Ramakrishna Browne M.D. Triglyceride mass conc 70 mg/dL Normal 25-120 [facility] Comment on above: Performed By: #### N TPROBNP, CHEM8, CBCDIF, PT, PTT, EDCTNI ####Unless otherwise noted, all testing performed by [address] [phone]: [id number] Director: Ramakrsihna Browne M.D. Otheron 06-25-2018 Interpretation and review of laboratory results Abnormal Invalid Interpretation Code [facility] TSHon 06-25-2018 Thyrotropin Qn 1.58 m[IU]/L Invalid Interpretation Code [facility] Comment on above: Samples from patient s routinely receiving high dose biotin therapy (100-300 mg/day) may show falsely decreased results. Please correlate clinically. Thyrotropin Qn 1.58 uIU/mL Normal 0.320-5.000 [facility] Comment on above: Result Comment: Samp les from patients routinely receiving high dose biotin therapy(100-300 mg/day) may show falsely decreased results. Please correlateclinically. Performed By: #### N TPROBNP, CHEM8, CBCDIF, PT, PTT, EDCTNI ####Unless otherwise noted, all testing performed by [address] [phone]: [id number] Director: Ramakrishna Browne M.D. Vitamin B12 and Folateson Cobalamin (Vitamin B12) mass conc 278 pg/mL Invalid Interpretation Code 193 - 986 pg/mL [facility] Folate >20.0 High 3.1 - 17.5 ng/mL [facility] Interpretation and review of laboratory results Abnormal Invalid Interpretation Code [facility] Cobalamin (Vitamin B12) mass conc 278 pg/mL Normal 193-986 [facility] Comment on above: Performed By: #### N TPROBNP, CHEM8, CBCDIF, PT, PTT, EDCTNI ####Unless otherwise noted, all testing performed by [address] [phone]: [id number] Director: Ramakrishna Browne M.D. Folate > 20.0 High 3.1-17.5 [facility] Comment on above: Performed By: #### N TPROBNP, CHEM8, CBCDIF, PT, PTT, EDCTNI ####Unless otherwise noted, all testing performed by [address] [phone]: [id number] Director: Ramakrishna Browne M.D. Vitamin D, Total, 25-OHon Vitamin D, 25-Hydroxy, Total 32 ng/mL Invalid Interpretation Code 30 - 100 ng/mL [facility] Comment on above: Please note that Flu [...] Calcium mass conc 8.8 mg/dL Normal 8.4-10.2 [facility] Comment on above: Performed By: #### N TPROBNP, CHEM8, CBCDIF, PT, PTT, EDCTNI ####Unless otherwise noted, all testing performed by [address] [phone]: [id number] Director: Ramakrishna Browne M.D. Chloride molar conc 106 mmol/L Normal 98-108 [facility] Comment on above: Performed By: #### N TPROBNP, CHEM8, CBCDIF, PT, PTT, EDCTNI ####Unless otherwise noted, all testing performed by [address] [phone]: [id number] Director: Ramakrishna Browne M.D. CO2 molar conc 24 mmol/L Normal 21-32 [facility] Comment on above: Performed By: #### N TPROBNP, CHEM8, CBCDIF, PT, PTT, EDCTNI ####Unless otherwise noted, all testing performed by [address] [phone]: [id number] Director: Ramakrishna Browne M.D. Creatinine mass conc 0.82 mg/dL Normal 0.40-1.10 [facility] Comment on above: Performed By: #### N TPROBNP, CHEM8, CBCDIF, PT, PTT, EDCTNI ####Unless otherwise noted, all testing performed by [address] [phone]: [id number] Director: Ramakrishna Browne M.D. GFR/1.73 sq M predicted among blacks MDRD vol rate/area (S/P/Bld) mL/min/{1.73_m2} Normal [facility] Comment on above: Result Comment: Afri can Greek GFR Calc Performed By: #### N TPROBNP, CHEM8, CBCDIF, PT, PTT, EDCTNI ####Unless otherwise noted, all testing performed by [address] [phone]: [id number] Director: Ramakrishna Browne M.D. GFR/1.73 sq M predicted among non-blacks MDRD vol rate/area (S/P/Bld) mL/min/{1.73_m2} Normal [facility] Comment on above: Result Comment: Non- GFR [...] ####Unless otherwise noted, all testing performed by [address] [phone]: [id number] Director: Ramakrishna Browne M.D. Glucose mass conc 88 mg/dL Normal 70-99 [facility] Comment on above: Result Comment: This test result might be falsely depressed or falsely elevated onsamples drawn from patients taking Sulfasalazine and Sulfapyridine.Venipuncture should occur prior to taking either of these drugs. Performed By: #### N TPROBNP, CHEM8, CBCDIF, PT, PTT, EDCTNI ####Unless otherwise noted, all testing performed by [address] [phone]: [id number] Director: Ramakrishna Browne M.D. Potassium molar conc 3.2 mmol/L Low 3.5-5.1 [facility] Comment on above: Performed By: #### N TPROBNP, CHEM8, CBCDIF, PT, PTT, EDCTNI ####Unless otherwise noted, all testing performed by [address] [phone]: [id number] Director: Ramakrishna Browne M.D. Sodium molar conc 140 mmol/L Normal 135-145 [facility] Comment on above: Performed By: #### N TPROBNP, CHEM8, CBCDIF, PT, PTT, EDCTNI ####Unless otherwise noted, all testing performed by [address] [phone]: [id number] Director: Ramakrishna Browne M.D. Urea nitrogen mass conc 23 mg/dL Normal 8-25 [facility] Comment on above: Performed By: #### N TPROBNP, CHEM8, CBCDIF, PT, PTT, EDCTNI ####Unless otherwise noted, all testing performed by [address] [phone]: [id number] Director: Ramakrishna Browne M.D. CBC with Diffon 04-26-2018 Basophils Auto #/vol (Bld) 0.0 K/mcL Normal 0-0.2 [facility] Comment on above: Performed By: #### N TPROBNP, CHEM8, CBCDIF, PT, PTT, EDCTNI ####Unless otherwise noted, all testing performed by [address] [phone]: [id number] Director: Ramakrishna Browne M.D. Basophils/100 WBC Auto (Bld) 0.4 % Normal [facility] Comment on above: Performed By: #### N TPROBNP, CHEM8, CBCDIF, PT, PTT, EDCTNI ####Unless otherwise noted, all testing performed by [phone]: [id number] Director: Ramakrishna Browne M.D. Eosinophils Auto #/vol (Bld) 0.2 K/mcL Normal 0-0.5 [facility] Comment on above: Performed By: #### N TPROBNP, CHEM8, CBCDIF, PT, PTT, EDCTNI ####Unless otherwise noted, all testing performed by [place] [id number]: [id number] Director: Ramakrishna Browne M.D. Eosinophils/100 WBC Auto (Bld) 3.8 % Normal [facility] Comment on above: Performed By: #### N TPROBNP, CHEM8, CBCDIF, PT, PTT, EDCTNI ####Unless otherwise noted, all testing performed by [place] [id number]: [id number] Director: Ramakrishna Browne M.D. Erythrocyte distribution width Auto Ratio (RBC) 14.4 % Normal 10.0-14.4 [facility] Comment on above: Performed By: #### N TPROBNP, CHEM8, CBCDIF, PT, PTT, EDCTNI ####Unless otherwise noted, all testing performed by [place] [phone]: [id number] Director: Ramakrishna Browne M.D. Hematocrit Auto Volume Fraction (Bld) 37.3 % Normal 34.4-44.8 [facility] Comment on above: Performed By: #### N TPROBNP, CHEM8, CBCDIF, PT, PTT, EDCTNI ####Unless otherwise noted, all testing performed by [address] [phone]: [id number] Director: Ramakrishna Browne M.D. Hemoglobin mass conc (Bld) 12.7 g/dL Normal 11.6-15.4 [facility] Comment on above: Performed By: #### N TPROBNP, CHEM8, CBCDIF, PT, PTT, EDCTNI ####Unless otherwise noted, all testing performed by [address] [phone]: [id number] Director: Ramakrishna Browne M.D. Lymphocytes Auto #/vol (Bld) 1.2 K/mcL Normal 1.0-3.7 [facility] Comment on above: Performed By: #### N TPROBNP, CHEM8, CBCDIF, PT, PTT, EDCTNI ####Unless otherwise noted, all testing performed by [address] [phone]: [id number] Director: Ramakrishna Browne M.D. Lymphocytes/100 WBC Auto (Bld) 25.0 % Normal [facility] Comment on above: Performed By: #### N TPROBNP, CHEM8, CBCDIF, PT, PTT, EDCTNI ####Unless otherwise noted, all testing performed by [address] [phone]: [id number] Director: Ramakrishna Browne M.D. MCH Auto Entitic mass (RBC) 29.4 pg Normal 27.9-33.9 [facility] Comment on above: Performed By: #### N TPROBNP, CHEM8, CBCDIF, PT, PTT, EDCTNI ####Unless otherwise noted, all testing performed by [address] [phone]: [id number] Director: Ramakrishna Browne M.D. MCHC Auto mass conc (RBC) 34.0 g/dL Normal 33.1-35.1 [facility] Comment on above: Performed By: #### N TPROBNP, CHEM8, CBCDIF, PT, PTT, EDCTNI ####Unless otherwise noted, all testing performed by [address] [phone]: [id number] Director: Ramakrishna Browne M.D. MCV Auto Entitic volume (RBC) 86.5 fL Normal 82.6-98.9 [facility] Comment on above: Performed By: #### N TPROBNP, CHEM8, CBCDIF, PT, PTT, EDCTNI ####Unless otherwise noted, all testing performed by [address] [phone]: [id number] Director: Ramakrishna Browne M.D. Monocytes Auto #/vol (Bld) 0.3 K/mcL Normal 0.1-0.6 [facility] Comment on above: Performed By: #### N TPROBNP, CHEM8, CBCDIF, PT, PTT, EDCTNI ####Unless otherwise noted, all testing performed by [address] [phone]: [id number] Director: Ramakrishna Browne M.D. Monocytes/100 WBC Auto (Bld) 6.8 % Normal [facility] Comment on above: Performed By: #### N TPROBNP, CHEM8, CBCDIF, PT, PTT, EDCTNI ####Unless otherwise noted, all testing performed by [address] [phone]: [id number] Director: Ramakrishna Browne M.D. Neutrophils Auto #/vol (Bld) 3.2 K/mcL Normal 1.2-6.9 [facility] Comment on above: Performed By: #### N TPROBNP, CHEM8, CBCDIF, PT, PTT, EDCTNI ####Unless otherwise noted, all testing performed by [phone]: [id number] Director: Ramakrishna Browne M.D. Platelet mean volume Auto Entitic volume (Bld) 9.6 fL Normal 7.0-10.6 [facility] Comment on above: Performed By: #### N TPROBNP, CHEM8, CBCDIF, PT, PTT, EDCTNI ####Unless otherwise noted, all testing performed by [address] [phone]: [id number] Director: Ramakrishna Browne M.D. Platelets Auto #/vol (Bld) 211 K/mcL Normal 162-402 [facility] Comment on above: Performed By: #### N TPROBNP, CHEM8, CBCDIF, PT, PTT, EDCTNI ####Unless otherwise noted, all testing performed by [address] [phone]: [id number] Director: Ramakrishna Browne M.D. RBC Auto #/vol (Bld) 4.31 M/mcL Normal 3.7-5.0 [facility] Comment on above: Performed By: #### N TPROBNP, CHEM8, CBCDIF, PT, PTT, EDCTNI ####Unless otherwise noted, all testing performed by [address] [phone]: [id number] Director: Ramakrishna Browne M.D. Segmented Neut % 64.0 % Normal [facility] Comment on above: Performed By: #### N TPROBNP, CHEM8, CBCDIF, PT, PTT, EDCTNI ####Unless otherwise noted, all testing performed by [address] [phone]: [id number] Director: Ramakrishna Browne M.D. WBC Auto #/vol (Bld) 5.0 K/mcL Normal 3.4-10.6 [facility] Comment on above: Performed By: #### N TPROBNP, CHEM8, CBCDIF, PT, PTT, EDCTNI ####Unless otherwise noted, all testing performed by [address] [phone]: [id number] Director: Ramakrishna Browne M.D. CHEST PA AND LATERALon 04-26 CHEST PA AND LATERAL Final ReportAccession No: [id number] Performed: Apr 26 2018 7:36PMExamination: CHEST [...] IKER BARBER M.D.Trans: n/a : cc: Normal [facility] CT ABDO,PELVIS W/O CONTRASTo n 04-26-2018 CT ABDO,PELVIS W/O CONTRAST Final ReportAccession No: [id number] Performed: Apr 26 2018 9:03PMExamination: CT [...] IKER BARBER M.D.Trans: n/a : cc: Normal [facility] Culture, Urineon 04-26-2018 Culture, Urine Test Name: Culture, Urine Culture Status: Final Culture Report: No significant growth. Micro Source: Urine Normal [facility] Comment on above: Performed By: #### U RCUL ####Unless otherwise noted, all testing performed by [address] [phone]: [id number] Director: Ramakrishna Browne M.D. ED Cardiac Troponin-Ion Troponin I.cardiac mass conc ng/mL Normal < 45 [facility] Comment on above: Result Comment: Elev ation [...] ####Unless otherwise noted, all testing performed by [address] [phone]: [id number] Director: Ramakrishna Browne M.D. NT-Pro BNP, Serumon 04-26-20 18 Natriuretic peptide B mass conc (Bld) 256 pg/mL High 0-125 [facility] Comment on above: Performed By: #### N TPROBNP, CHEM8, CBCDIF, PT, PTT, EDCTNI ####Unless otherwise noted, all testing performed by [address] [phone]: [id number] Director: Ramakrishna Browne M.D. Partial Thromboplastin Timeo n 04-26-2018 aPTT Coag time (Bld) 27 s Normal 23.0-34.0 [facility] Comment on above: Result Comment: Iris hollins therapeutic range for PTT is 68-104 sec. Performed By: #### N TPROBNP, CHEM8, CBCDIF, PT, PTT, EDCTNI ####Unless otherwise noted, all testing performed by [address] [phone]: [id number] Director: Ramakrishna Browne M.D. Protimeon 04-26-2018 INR Coag RelTime (PPP) 1.05 {INR} Normal [facility] Comment on above: Result Comment: The [employer] recommended therapeutic rangefor Warfarin (Coumadin) therapy goals:PROPHYLAXIS/TREATMENT of:INRVenous Thrombosis, Pulmonary Embolism2.0-3.0Prevention of VTE (Orthopedic Surgery)2.0-3.0Atrial Fibrillation2.0-3.0Myocardial Infarction2.0-3.0Mechanical Prosthetic Heart Valves (Aortic position)2.0-3.0Mechanical Prosthetic Heart Valves (Mitral Position)2.5-3.5American College of Chest [employer]icians evidence-based clinical practiceguidelines. CHEST. 2012 (9th ed) Performed By: #### N TPROBNP, CHEM8, CBCDIF, PT, PTT, EDCTNI ####Unless otherwise noted, all testing performed by [address] [phone]: [id number] Director: Ramakrishna Browne M.D. Prothrombin time (PT) Coag time (PPP) 13.4 s Normal 11.8-14.3 [facility] Comment on above: Performed By: #### N TPROBNP, CHEM8, CBCDIF, PT, PTT, EDCTNI ####Unless otherwise noted, all testing performed by [address] [phone]: [id number] Director: Ramakrishna Browne M.D. Urinalysis, Routineon 2017 Bacteria LM.HPF #/area (Urine sed) Rare Normal NS;RARE [facility] Comment on above: Performed By: #### U A ####Unless otherwise noted, all testing performed by [address] [phone]: [id number] Director: Ramakrishna Browne M.D. Bilirubin,Urine Negative Normal NEG;NEGATIVE [facility] Comment on above: Performed By: #### U A ####Unless otherwise noted, all testing performed by [address] [phone]: [id number] Director: Ramakrishna Browne M.D. Blood,Urine Negative Normal NEG;NEGATIVE [facility] Comment on above: Performed By: #### U A ####Unless otherwise noted, all testing performed by [address] [phone]: [id number] Director: Ramakrishna Browne M.D. Character Clear Normal [facility] Comment on above: Performed By: #### U A ####Unless otherwise noted, all testing performed by [address] [phone]: [id number] Director: Ramakrishna Browne M.D. Color Nom (U) Yellow Normal [facility] Comment on above: Performed By: #### U A ####Unless otherwise noted, all testing performed by [address], [place] [phone]: [id number] Director: Ramakrishna Browne M.D. Glucose Ql (U) Negative Normal NEG;NEGATIVE [facility] Comment on above: Performed By: #### U A ####Unless otherwise noted, all testing performed by [address] [phone]: [id number] Director: Ramakrishna Browne M.D. Ketone,Urine 20 mg/dL High <10 [facility] Comment on above: Performed By: #### U A ####Unless otherwise noted, all testing performed by [address] [phone]: [id number] Director: Ramakrishna Browne M.D. Leuk.Esterase,Urine Small Abnormal Negative [facility] Comment on above: Performed By: #### U A ####Unless otherwise noted, all testing performed by [address] [phone]: [id number] Director: Ramakrishna Browne M.D. Nitrite,Urine Negative Normal NEG;NEGATIVE [facility] Comment on above: Performed By: #### U A ####Unless otherwise noted, all testing performed by [address] [phone]: [id number] Director: Ramakrishna Browne M.D. pH Test strip (U) 5.0 [pH] Normal 4.5-8.0 [facility] Comment on above: Performed By: #### U A ####Unless otherwise noted, all testing performed by [address] [phone]: [id number] Director: Ramakrishna Browne M.D. Protein,Urine Negative Normal NEG;NEGATIVE [facility] Comment on above: Performed By: #### U A ####Unless otherwise noted, all testing performed by [address] [phone]: [id number] Director: Ramakrishna Browne M.D. RBC LM.HPF #/area (Urine sed) /[HPF] Normal 0-5 [facility] Comment on above: Performed By: #### U A ####Unless otherwise noted, all testing performed by [address] [phone]: [id number] Director: Ramakrishna Browne M.D. Specific [place],Urine 1.020 Normal 1.003-1.029 [facility] Comment on above: Performed By: #### U A ####Unless otherwise noted, all testing performed by [address] [phone]: [id number] Director: Ramakrishna Browne M.D. Squamous Epithelial 1 /HPF Normal 0-40 [facility] Comment on above: Performed By: #### U A ####Unless otherwise noted, all testing performed by [address] [phone]: [id number] Director: Ramakrishna Browne M.D. Trans. Epithelial < 1 Normal 0-3 [facility] Comment on above: Performed By: #### U A ####Unless otherwise noted, all testing performed by [address] [phone]: [id number] Director: Ramakrishna Browne M.D. Urobilinogen,Urine < 2.0 Normal <2 [facility] Comment on above: Performed By: #### U A ####Unless otherwise noted, all testing performed by [address] [phone]: [id number] Director: Ramakrishna Browne M.D. WBC,Urine 4 /HPF Normal 0-5 [facility] Comment on above: Performed By: #### U A ####Unless otherwise noted, all testing performed by [address] [phone]: [id number] Director: Ramakrishna Browne M.D. Vital Signs Date Time Vital Sign Value Performing Clinician Facility 02-26-2024 12:10-0400 Body height 165.1 cm Weatherista DO Work Phone: [facility] 02-26-2024 12:10-0400 Body mass index (BMI) [Ratio] 44.26 kg/m2 [employer] [place] DO Work Phone: [facility] 02-26-2024 12:10-0400 Body weight 120.66 kg [employer] [place] DO Work Phone: [facility] 02-26-2024 12:10-0400 Diastolic blood pressure 80 mm[Hg] [employer] [place] DO Work Phone: [facility] 02-26-2024 12:10-0400 Heart rate 83 /min Weatherista DO Work Phone: [facility] 02-26-2024 12:10-0400 SaO2% (BldA) [Mass fraction] 95 % Eduardo Ahmadi DO Work Phone: [facility] 02-26-2024 12:10-0400 Systolic blood pressure 126 mm[Hg] Eduardo Ahmadi DO Work Phone: [facility] 01-27-2024 14:04-0400 Body mass index (BMI) [Ratio] 43.27 kg/m2 Jaime Carter APRN-SAMPLE DISTRIBUTOR Work Phone: [employer] 01-27-2024 14:04-0400 Body temperature 98.4 [degF] Jaime Carter APRN-SAMPLE DISTRIBUTOR Work Phone: [employer] 01-27-2024 14:04-0400 Body weight 117.94 kg Jaime Carter APRN-SAMPLE DISTRIBUTOR Work Phone: [employer] 01-27-2024 14:04-0400 Diastolic blood pressure 74 mm[Hg] Jaimeasher Carter APRN-SAMPLE DISTRIBUTOR Work Phone: [employer] 01-27-2024 14:04-0400 Heart rate 54 /min Jaimeasher Carter APRN-SAMPLE DISTRIBUTOR Work Phone: [employer] 01-27-2024 14:04-0400 Respiratory rate 16 /min Jaime Carter APRN-SAMPLE DISTRIBUTOR Work Phone: [employer] 01-27-2024 14:04-0400 SaO2% (BldA) [Mass fraction] 93 % Jaime Carter APRN-SAMPLE DISTRIBUTOR Work Phone: [employer] 01-27-2024 14:04-0400 Systolic blood pressure 136 mm[Hg] Jaime Carter CHIEF RADIOLOGIC TECHNOLOGIST-SAMPLE DISTRIBUTOR Work Phone: [employer] 12-19-2023 20:08-0400 Diastolic blood pressure 93 mm[Hg] Leticia Sylvester MD Work Phone: [employer] 12-19-2023 20:08-0400 Heart rate 70 /min Leticia Sylvester MD Work Phone: [employer] 12-19-2023 20:08-0400 Respiratory rate 18 /min Leticia Sylvester MD Work Phone: [employer] [facility] 12-19-2023 20:08-0400 SaO2% (BldA) [Mass fraction] 100 % Letciia Sylvester MD Work Phone: [employer] [facility] 12-19-2023 20:08-0400 Systolic blood pressure 159 mm[Hg] Leticia Sylvester MD Work Phone: [employer] [facility] 12-19-2023 15:39-0400 Body height 165.1 cm Leticia Sylvester MD Work Phone: [employer] [facility] 12-19-2023 15:39-0400 Body mass index (BMI) [Ratio] 44.1 kg/m2 Leticia Sylvester MD Work Phone: [employer] [facility] 12-19-2023 15:39-0400 Body weight 120.2 kg Leticia Sylvester MD Work Phone: [employer] [facility] 12-19-2023 15:38-0400 Body temperature 97.59 [degF] Leticia Sylvester MD Work Phone: [employer] [facility] 06-30-2023 13:57-0400 Body height 165.1 cm Ana Canales CNP Work Phone: [facility] 06-30-2023 13:57-0400 Body mass index (BMI) [Ratio] 46.59 kg/m2 Ana Canales CNP Work Phone: [facility] 06-30-2023 13:57-0400 Body weight 127.01 kg Ana Canales CNP Work Phone: [facility] 05-26-2023 15:00-0400 Body temperature 98.29 [degF] Jose [facility] Dumont [facility] 05-26-2023 15:00-0400 Diastolic blood pressure 62 mm[Hg] Jose Eduardo Dumont MD Work Phone: [facility] 05-26-2023 15:00-0400 Heart rate 80 /min Jose Eduardo Dumont MD Work Phone: [facility] 05-26-2023 15:00-0400 Respiratory rate 19 /min Jose Eduardo Dumont MD Work Phone: [facility] 05-26-2023 15:00-0400 SaO2% (BldA) [Mass fraction] 94 % Jose Eduardo Dumont MD Work Phone: [facility] 05-26-2023 15:00-0400 Systolic blood pressure 110 mm[Hg] Jose Eduardo Dumont MD Work Phone: [facility] 05-26-2023 04:49-0400 Body mass index (BMI) [Ratio] 47.01 kg/m2 Jose Eduardo Dumont MD Work Phone: [facility] 05-26-2023 04:49-0400 Body weight 128.14 kg Jose Eduardo Dumont MD Work Phone: [facility] 05-22-2023 20:48-0400 Body height 165.1 cm Jose Eduardo Dumont MD Work Phone: [facility] 04-17-2023 14:21-0400 Diastolic blood pressure 83 mm[Hg] Ishaan Raines MD Work Phone: [facility] 04-17-2023 14:21-0400 Heart rate 57 /min Ishaan Raines MD Work Phone: [facility] 04-17-2023 14:21-0400 Systolic blood pressure 211 mm[Hg] Ishaan Raines MD Work Phone: [facility] 04-17-2023 14:05-0400 Body height 165.1 cm Ishaan Raines MD Work Phone: [facility] 04-17-2023 14:05-0400 Body mass index (BMI) [Ratio] 46.76 kg/m2 Ishaan Raines MD Work Phone: [facility] 04-17-2023 14:05-0400 Body weight 127.46 kg Ishaan Raines MD Work Phone: [facility] 02-16-2023 19:25-0400 Diastolic blood pressure 74 mm[Hg] Leticia Sylvester MD Work Phone: [facility] 02-16-2023 19:25-0400 Heart rate 61 /min Leticia Sylvester MD Work Phone: [facility] 02-16-2023 19:25-0400 Respiratory rate 18 /min Leticia Sylvester MD Work Phone: [facility] 02-16-2023 19:25-0400 SaO2% (BldA) [Mass fraction] 94 % Leticia Sylvester MD Work Phone: [facility] 02-16-2023 19:25-0400 Systolic blood pressure 134 mm[Hg] Leticia Sylvester MD Work Phone: [facility] 02-16-2023 15:59-0400 Body height 165.1 cm Leticia Sylvester MD Work Phone: [facility] 02-16-2023 15:58-0400 Body temperature 98.4 [degF] Leticia Sylvester MD Work Phone: [facility] 10-15-2022 12:36-0500 Body height 165.1 cm Av Delgado MD Work Phone: [facility] 10-15-2022 12:36-0500 Body mass index (BMI) [Ratio] 49.59 kg/m2 Av Delgado MD Work Phone: [facility] 10-15-2022 12:36-0500 Body weight 135.17 kg Av Delgado MD Work Phone: [facility] 10-15-2022 12:36-0500 Respiratory rate 18 /min Av Delgado MD Work Phone: [facility] 10-01-2022 12:47-0500 Body height 165.1 cm Av Delgado MD Work Phone: [facility] 10-01-2022 12:47-0500 Body mass index (BMI) [Ratio] 48.09 kg/m2 Av Delgado MD Work Phone: [facility] 10-01-2022 12:47-0500 Body weight 131.09 kg Av Delgado MD Work Phone: [facility] 10-01-2022 12:47-0500 Respiratory rate 18 /min Av Delgado MD Work Phone: [facility] 10-01-2022 12:47-0500 SaO2% (BldA) [Mass fraction] 98 % Av Delgado MD Work Phone: [facility] 09-01-2022 20:43-0500 Diastolic blood pressure 88 mm[Hg] Bao Hsieh MD Work Phone: [facility] 09-01-2022 20:43-0500 Heart rate 68 /min Bao Hsieh MD Work Phone: [facility] 09-01-2022 20:43-0500 Respiratory rate 18 /min Bao Hsieh MD Work Phone: [facility] 09-01-2022 20:43-0500 SaO2% (BldA) [Mass fraction] 94 % Bao Hsieh MD Work Phone: [facility] 09-01-2022 20:43-0500 Systolic blood pressure 147 mm[Hg] Bao Hsieh MD Work Phone: [facility] 09-01-2022 16:02-0500 Body mass index (BMI) [Ratio] 48.09 kg/m2 Bao Hsieh MD Work Phone: [facility] 09-01-2022 16:02-0500 Body weight 131.09 kg Bao Hsieh MD Work Phone: [facility] 09-01-2022 16:01-0500 Body temperature 98.01 [degF] Bao Hsieh MD Work Phone: [facility] 08-11-2022 13:00-0500 Diastolic blood pressure 75 mm[Hg] Jennifer Khoury MD Work Phone: [facility] 08-11-2022 13:00-0500 Heart rate 78 /min Jennifer Khoury MD Work Phone: [facility] 08-11-2022 13:00-0500 Respiratory rate 16 /min Jennifer Khoury MD Work Phone: [facility] 08-11-2022 13:00-0500 SaO2% (BldA) [Mass fraction] 97 % Jennifer Khoury MD Work Phone: [facility] 08-11-2022 13:00-0500 Systolic blood pressure 141 mm[Hg] Jennifer Khoury MD Work Phone: [facility] 08-11-2022 10:40-0500 Body temperature 98.2 [degF] Jennifer Khoury MD Work Phone: [facility] 07-28-2022 18:11-0500 Heart rate 68 /min [facility] 07-28-2022 13:44-0500 Body height 165.1 cm [facility] 07-28-2022 13:44-0500 Body mass index (BMI) [Ratio] 47.26 kg/m2 [facility] 07-28-2022 13:44-0500 Body temperature 98.71 [degF] [...] Systolic blood pressure 146 mm[Hg] Pse Anesthesia [facility] 04-23-2022 13:50-0400 Body height 165.1 cm Eusebia Jones CHIEF RADIOLOGIC TECHNOLOGIST-SAMPLE DISTRIBUTOR Work Phone: [facility] 04-23-2022 13:50-0400 Body mass index (BMI) [Ratio] 45.43 kg/m2 Eusebia Jones CHIEF RADIOLOGIC TECHNOLOGIST-SAMPLE DISTRIBUTOR Work Phone: [facility] 04-23-2022 13:50-0400 Body temperature 99.39 [degF] Eusebia Jones CHIEF RADIOLOGIC TECHNOLOGIST-SAMPLE DISTRIBUTOR Work Phone: [facility] 04-23-2022 13:50-0400 Body weight 123.83 kg Eusebia Jones CHIEF RADIOLOGIC TECHNOLOGIST-SAMPLE DISTRIBUTOR Work Phone: [facility] 04-23-2022 13:50-0400 Diastolic blood pressure 81 mm[Hg] Eusebia Jones CHIEF RADIOLOGIC TECHNOLOGIST-SAMPLE DISTRIBUTOR Work Phone: [facility] 04-23-2022 13:50-0400 Heart rate 66 /min Eusebia Jones CHIEF RADIOLOGIC TECHNOLOGIST-SAMPLE DISTRIBUTOR Work Phone: [facility] 04-23-2022 13:50-0400 Respiratory rate 16 /min Eusebia Jones CHIEF RADIOLOGIC TECHNOLOGIST-SAMPLE DISTRIBUTOR Work Phone: [facility] 04-23-2022 13:50-0400 Systolic blood pressure 138 mm[Hg] Eusebia Jones CHIEF RADIOLOGIC TECHNOLOGIST-SAMPLE DISTRIBUTOR Work Phone: [facility] 04-23-2022 11:10-0400 Body height 165.1 cm Jaime Carter CHIEF RADIOLOGIC TECHNOLOGIST-SAMPLE DISTRIBUTOR Work Phone: [facility] 04-23-2022 11:10-0400 Body mass index (BMI) [Ratio] 45.43 kg/m2 Jaimeasher Carter CHIEF RADIOLOGIC TECHNOLOGIST-SAMPLE DISTRIBUTOR Work Phone: [facility] 04-23-2022 11:10-0400 Body temperature 99.39 [degF] Jaime Carter CHIEF RADIOLOGIC TECHNOLOGIST-SAMPLE DISTRIBUTOR Work Phone: [employer] 04-23-2022 11:10-0400 Body weight 123.83 kg Jaime Carter CHIEF RADIOLOGIC TECHNOLOGIST-SAMPLE DISTRIBUTOR Work Phone: [employer] 04-23-2022 11:10-0400 Diastolic blood pressure 81 mm[Hg] Jaime Carter CHIEF RADIOLOGIC TECHNOLOGIST-SAMPLE DISTRIBUTOR Work Phone: [employer] 04-23-2022 11:10-0400 Heart rate 66 /min Jaime Carter CHIEF RADIOLOGIC TECHNOLOGIST-SAMPLE DISTRIBUTOR Work Phone: [employer] 04-23-2022 11:10-0400 Respiratory rate 16 /min Jaime Carter CHIEF RADIOLOGIC TECHNOLOGIST-SAMPLE DISTRIBUTOR Work Phone: [employer] 04-23-2022 11:10-0400 Systolic blood pressure 138 mm[Hg] Jaime Carter CHIEF RADIOLOGIC TECHNOLOGIST-SAMPLE DISTRIBUTOR [facility] 01-31-2022 08:41-0400 Body temperature 98.49 [degF] Av Bertrand MD Work Phone: [facility] 01-31-2022 08:41-0400 Diastolic blood pressure 73 mm[Hg] Av Bertrand MD Work Phone: [facility] [employer] [facility] 01-31-2022 08:41-0400 Heart rate 73 /min Av Bertrand MD Work Phone: [employer] [facility] 01-31-2022 08:41-0400 Respiratory rate 17 /min Av Bertrand MD Work Phone: [facility] 01-31-2022 08:41-0400 SaO2% (BldA) [Mass fraction] 92 % Av Bertrand MD [facility] 01-31-2022 08:41-0400 Systolic blood pressure 137 mm[Hg] Av Bertrand MD Work Phone: [facility] 01-30-2022 04:56-0400 Body mass index (BMI) [Ratio] 48.11 kg/m2 Av Bertrand MD Work Phone: [facility] 01-30-2022 04:56-0400 Body weight 131.13 kg Av Bertrand MD Work Phone: [facility] 01-27-2022 22:00-0400 Body height 165.1 cm Av Bertrand MD Work Phone: [facility] 12-17-2020 15:36-0400 Body Temperature 97.39 [degF] [facility] 15:36-0400 BP Diastolic 84 mm[Hg] [facility] 12-17-2020 15:36-0400 BP Systolic 116 mm[Hg] [facility] 12-17-2020 15:36-0400 Pulse (Heart Rate) 70 /min [facility] 12-17-2020 15:36-0400 Pulse Oximetry 94 % [facility] 12-11-2020 15:05-0400 Body Temperature 97.9 [degF] [facility] 12-11-2020 15:05-0400 BP Diastolic 91 mm[Hg] [facility] 12-11-2020 15:05-0400 BP Systolic 146 mm[Hg] [facility] 12-11-2020 15:05-0400 Pulse (Heart Rate) 66 /min [facility] 12-11-2020 15:05-0400 Pulse Oximetry 95 % [facility] 12-11-2020 15:05-0400 Respiratory Rate 17 /min [facility] 12-06-2020 11:25-0400 Body Temperature 96.8 [degF] [facility] 12-06-2020 11:25-0400 BP Diastolic 87 mm[Hg] [facility] 12-06-2020 11:25-0400 BP Systolic 104 mm[Hg] [facility] 12-06-2020 11:25-0400 Pulse (Heart Rate) 68 /min [facility] 12-06-2020 11:25-0400 Pulse Oximetry 95 % [facility] 12-06-2020 11:25-0400 Respiratory Rate 16 /min [facility] 12-05-2020 15:52-0400 Body Temperature 97.5 [degF] Valarie Blackmon [facility] 12-05-2020 15:52-0400 BP Diastolic 74 mm[Hg] Valarie Blackmon [facility] 12-05-2020 15:52-0400 BP Systolic 141 mm[Hg] Valarie Blackmon [facility] 12-05-2020 15:52-0400 Pulse (Heart Rate) 73 /min Valarie Blackmon [facility] 12-05-2020 15:52-0400 Pulse Oximetry 91 % Valarie Blackmon [facility] 12-03-2020 15:00-0400 Body Temperature 97 [degF] Ashley Mcgrath [facility] 12-03-2020 15:00-0400 BP Diastolic 80 mm[Hg] Ashley Mcgrath [facility] 12-03-2020 15:00-0400 BP Systolic 150 mm[Hg] Ashley Mcgrath [facility] 12-03-2020 15:00-0400 Pulse (Heart Rate) 68 /min Ashley Mcgrath [facility] 12-03-2020 15:00-0400 Pulse Oximetry 97 % Ashley Mcgrath [facility] 12-03-2020 15:00-0400 Respiratory Rate 16 /min Ashley Mcgrath [facility] 12-01-2020 16:19-0500 Body Temperature 98.29 [degF] Adam Russ [facility] 12-01-2020 16:19-0500 BP Diastolic 81 mm[Hg] Adam Russ [facility] 12-01-2020 16:19-0500 BP Systolic 141 mm[Hg] Adam Russ [facility] 12-01-2020 16:19-0500 Pulse (Heart Rate) 68 /min Adam Russ [facility] 12-01-2020 16:19-0500 Pulse Oximetry 91 % Adam Russ [facility] 12-01-2020 08:15-0500 Respiratory Rate 16 /min Adam Russ [facility] 11-28-2020 20:41-0500 BMI (Body Mass Index) 53.78 kg/m2 Adam Russ [facility] 11-28-2020 20:41-0500 Body weight 146.6 kg Adam Russ [facility] 11-28-2020 20:41-0500 Height 165.1 cm Adam [facility] 11-28-2020 12:16-0500 Body Temperature 97.7 [degF] [facility] 11-28-2020 12:16-0500 BP Diastolic 68 mm[Hg] [facility] 11-28-2020 12:16-0500 BP Systolic 130 mm[Hg] [facility] 11-28-2020 12:16-0500 Pulse (Heart Rate) 70 /min Gisele [facility] 11-28-2020 12:16-0500 Pulse Oximetry 97 % [facility] 11-28-2020 12:16-0500 Respiratory Rate 16 /min [facility] 11-26-2020 13:10-0500 Body Temperature 97.9 [degF] [facility] 11-26-2020 13:10-0500 BP Diastolic 81 mm[Hg] [facility] 11-26-2020 13:10-0500 BP Systolic 120 mm[Hg] [facility] 11-26-2020 13:10-0500 Pulse (Heart Rate) 62 /min [facility] 11-26-2020 13:10-0500 Pulse Oximetry 96 % [facility] 11-26-2020 13:10-0500 Respiratory Rate 17 /min [facility] 11-23-2020 08:59-0500 BP Diastolic 67 mm[Hg] [facility] 11-23-2020 08:59-0500 BP Systolic 122 mm[Hg] [facility] 11-23-2020 08:59-0500 Pulse (Heart Rate) 61 /min [facility] 11-23-2020 08:59-0500 Pulse Oximetry 96 % [facility] 11-23-2020 08:59-0500 Respiratory Rate 17 /min [facility] 11-22-2020 13:12-0500 Body Temperature 97.5 [degF] Marcello [facility] 11-22-2020 13:12-0500 BP Diastolic 64 mm[Hg] [facility] 11-22-2020 13:12-0500 BP Systolic 103 mm[Hg] [facility] 11-22-2020 13:12-0500 Pulse Oximetry 88 % [facility] Comment on above: returns to WNL after 30sec of pursed lip breathing 11-22-2020 13:12-0500 Respiratory Rate 14 /min Marcello Lewis [facility] 11-19-2020 12:30-0500 Body Temperature 98.2 [degF] Valarie [facility] 11-19-2020 12:30-0500 BP Diastolic 100 mm[Hg] Valarie [facility] 11-19-2020 12:30-0500 BP Systolic 179 mm[Hg] Valarie [facility] 11-19-2020 12:30-0500 Pulse (Heart Rate) 62 /min Valarie [facility] 11-19-2020 12:30-0500 Pulse Oximetry 94 % Valarie [facility] 11-16-2020 12:15-0500 Body Temperature 98.01 [degF] [facility] 11-16-2020 12:15-0500 BP Diastolic 83 mm[Hg] [facility] 11-16-2020 12:15-0500 BP Systolic 138 mm[Hg] [facility] 11-16-2020 12:15-0500 Pulse (Heart Rate) 60 /min [facility] 11-16-2020 12:15-0500 Pulse Oximetry 98 % [facility] 11-16-2020 12:15-0500 Respiratory Rate 15 /min [facility] 11-16-2020 08:45-0500 Body Temperature 97.3 [degF] Valarie [facility] 11-16-2020 08:45-0500 BP Diastolic 83 mm[Hg] Valarie [facility] 11-16-2020 08:45-0500 BP Systolic 138 mm[Hg] Valarie [facility] 11-16-2020 08:45-0500 Pulse (Heart Rate) 60 /min Valarie [facility] 11-16-2020 08:45-0500 Pulse Oximetry 98 % Valarie [facility] 11-16-2020 08:45-0500 Respiratory Rate 16 /min Valarie [facility] 11-16-2020 08:42-0500 BMI (Body Mass Index) 54.91 kg/m2 Ashley Mcgrath [facility] 11-16-2020 08:42-0500 Body Temperature 98.01 [degF] Ashley Mcgrath [facility] 11-16-2020 08:42-0500 Body weight 149.69 kg Ashley Mcgrath [facility] 11-16-2020 08:42-0500 BP Diastolic 83 mm[Hg] Ashley Mcgrath [facility] 11-16-2020 08:42-0500 BP Systolic 138 mm[Hg] Ashley Mcgrath [facility] 11-16-2020 08:42-0500 Height 165.1 cm Ashley Mcgrath [facility] 11-16-2020 08:42-0500 Pulse (Heart Rate) 60 /min Ashley Mcgrath [facility] 11-16-2020 08:42-0500 Pulse Oximetry 98 % Ashley Mcgrath [facility] 11-16-2020 08:42-0500 Respiratory Rate 16 /min Ashley Mcgrath [facility] 11-14-2020 15:58-0500 Body Temperature 97.5 [degF] [facility]ign[facility] 11-14-2020 15:58-0500 BP Diastolic 93 mm[Hg] [facility] 11-14-2020 15:58-0500 BP Systolic 151 mm[Hg] [facility] 11-14-2020 15:58-0500 Pulse (Heart Rate) 78 /min [facility] 11-14-2020 15:58-0500 Pulse Oximetry 92 % [facility] 11-14-2020 15:58-0500 Respiratory Rate 18 /min [facility] 11-14-2020 09:33-0500 BMI (Body Mass Index) 54.66 kg/m2 [facility] 11-14-2020 09:33-0500 Body weight 149 kg [facility] 11-14-2020 09:33-0500 Height 165.1 cm [facility] 11-01-2019 16:14-0500 Pulse Oximetry 91 % Cecil Gomez [facility] 11-01-2019 16:14-0500 Respiratory Rate 22 /min Cecil Gomez [facility] 11-01-2019 16:02-0500 BP Diastolic 75 mm[Hg] Cecil Gomez [facility] 11-01-2019 16:02-0500 BP Systolic 129 mm[Hg] Cecil Gomez [facility] 11-01-2019 16:02-0500 Pulse (Heart Rate) 61 /min Cecil Gomez [facility] 11-01-2019 13:09-0500 Body Temperature 98.71 [degF] Cecil Gomez [facility] 08-22-2019 14:19-0500 BMI (Body Mass Index) 48.76 kg/m2 Giorgi Thomas [facility] 08-22-2019 14:19-0500 Body weight 132.9 kg Giorgi Thomas [facility] 08-22-2019 14:19-0500 BP Diastolic 67 mm[Hg] Giorgi Thomas [facility] 08-22-2019 14:19-0500 BP Systolic 111 mm[Hg] Giorgi Thomas [facility] 08-22-2019 14:19-0500 Pulse (Heart Rate) 91 /min Giorgipito Thomas [facility] 08-22-2019 14:19-0500 Pulse Oximetry 93 % Giorgi Thomas [facility] 07-29-2019 10:52-0500 BP Diastolic 69 mm[Hg] [facility] 07-29-2019 10:52-0500 BP Systolic 112 mm[Hg] [facility] 07-29-2019 10:52-0500 Pulse (Heart Rate) 62 /min [facility] 07-29-2019 10:52-0500 Pulse Oximetry 93 % [facility] 07-29-2019 10:52-0500 Respiratory Rate 17 /min [facility] 07-29-2019 10:07-0500 Body Temperature 97 [degF] Joe Colón [facility] 07-28-2019 12:38-0500 BMI (Body Mass Index) 48.5 kg/m2 Dignaflorencio Oropezaori [facility] 07-28-2019 12:38-0500 Body Temperature 98.6 [degF] Digna Downs [facility] 07-28-2019 12:38-0500 Body weight 132.2 kg Digna Downs [facility] 07-28-2019 12:38-0500 BP Diastolic 83 mm[Hg] Digna Downs [facility] 07-28-2019 12:38-0500 BP Systolic 135 mm[Hg] Digna Downs [facility] 07-28-2019 12:38-0500 Height 165.1 cm Digna Downs [facility] 07-28-2019 12:38-0500 Pulse (Heart Rate) 77 /min Digna Downs [facility] 07-28-2019 12:38-0500 Pulse Oximetry 93 % Digna Downs [facility] 07-28-2019 12:38-0500 Respiratory Rate 18 /min Digna Downs [facility] 07-08-2019 12:41-0400 BP Diastolic 65 mm[Hg] [facility] 07-08-2019 12:41-0400 BP Systolic 96 mm[Hg] [facility] 07-08-2019 12:41-0400 Pulse (Heart Rate) 64 /min [facility] 07-08-2019 12:41-0400 Pulse Oximetry 94 % [facility] 07-08-2019 12:27-0400 Respiratory Rate 14 /min [facility] 07-08-2019 07:14-0400 Body Temperature 98.29 [degF] [facility] 07-08-2019 07:01-0400 BMI (Body Mass Index) 47.59 kg/m2 [facility] 07-08-2019 07:01-0400 Body weight 129.73 kg [facility] 07-08-2019 07:01-0400 Height 165.1 cm [facility] 06-30-2019 16:08-0400 BP Diastolic 92 mm[Hg] Lupe Jeong [facility] 06-30-2019 16:08-0400 BP Systolic 128 mm[Hg] Lupe Jeong [facility] 06-23-2019 14:21-0400 Body weight 133.36 kg Giorgi Thomas [facility] 06-23-2019 14:21-0400 BP Diastolic 79 mm[Hg] Giorgi Tohmas [facility] 06-23-2019 14:21-0400 BP Systolic 108 mm[Hg] Giorgi Thomas [facility] 06-23-2019 14:21-0400 Pulse (Heart Rate) 96 /min Giorgi Thomas [facility] 06-23-2019 14:21-0400 Pulse Oximetry 91 % Giorgi Thomas [facility] Encounters Encounter Date Encounter Type Care Provider Facility Start: 06-24-2024 End: 06-24-2024 Emergency department patient visit [facility] Start: 03-01-2024 End: 03-01-2024 ambulatory [facility] Start: 02-26-2024 End: 02-26-2024 ambulatory [facility] Start: 02-26-2024 End: 02-26-2024 Office outpatient new 45 minutes [facility] Work Phone: [facility] Comment on above: Disorder involving t hrombocytopenia (CMS-HCC) (Primary Dx); Mixed hyperlipidemia; Current moderate episode of major depressive disorder without prior episode (Multi); Obesity, morbid (Multi); KELLY (obstructive sleep apnea); Primary insomnia; Vitamin D deficiency; Hyperglycemia; Cirrhosis of liver without ascites, unspecified hepatic cirrhosis type (Multi) Start: 02-26-2024 End: 02-26-2024 ambulatory [facility] Start: 02-19-2024 End: 02-19-2024 ambulatory UNKNOWN PROVIDER Facility:[facility] Start: 02-19-2024 End: 02-19-2024 Subsequent hospital visit by physician Phe [address] Comment on above: Hepatic cirrhosis, u nspecified hepatic cirrhosis type (HCC) (Primary Dx); Fatty liver Hepatic cirrhosis, u nspecified hepatic cirrhosis type, unspecified whether ascites present (HCC) Start: 02-01-2024 Letter encounter Sage LAIRD Work Phone: [facility] [employer] Start: 01-28-2024 Patient Outreach Sage LAIRD Work Phone: [facility] [employer] Comment on above: Other family/social problem NOS (TRANSPORTATION ) Start: 01-27-2024 End: 01-27-2024 Clinical Support [place] [facility] Comment on above: Arrived Start: 01-27-2024 End: 01-27-2024 Office outpatient visit 40 minutes Jaime ROMERO Work Phone: [facility] [place] [facility] Comment on above: Hepatic cirrhosis, u nspecified hepatic cirrhosis type, unspecified whether ascites present (HCC) (Primary Dx); Assistance needed with transportation; Anxiety about health; Insomnia, unspecified type; Fatty liver Start: 01-27-2024 End: 01-27-2024 ambulatory UNKNOWN PROVIDER Facility:[facility] Start: 01-12-2024 End: 01-12-2024 Emergency department patient visit [facility] Start: 12-19-2023 End: 12-19-2023 Emergency department patient visit [facility] Start: 12-19-2023 End: 12-19-2023 Emergency department patient visit Leticia Sylvester MD Work Phone: [facility] Emergency Department Start: 11-23-2023 Transcribe Orders Leticia Sylvester MD Work Phone: [facility], Neuroscience Comment on above: Migraine with aura, with intractable migraine, so stated, with status migrainosus (Primary Dx) Start: 08-19-2023 ambulatory CAROL ANN VICENTE [facility] Start: 08-19-2023 End: 08-19-2023 Subsequent hospital visit by physician Carol Ann Vicente MD Work Phone: [facility] Start: 08-15-2023 Letter encounter Lupillo Ocampo MD Work Phone: [facility] Start: 08-10-2023 End: 08-14-2023 ambulatory PROVIDER NOT IN SYSTEM [facility] Start: 06-30-2023 End: 06-30-2023 Office outpatient new 30 minutes Ana Canales CNP Work Phone: [facility] Phys[facility] Comment on above: Primary osteoarthrit is of left knee (Primary Dx) Start: 05-22-2023 End: 05-26-2023 ambulatory CALVIN PIMENTEL [facility] Start: 05-22-2023 End: 05-26-2023 Emergency department patient visit Jose Eduardo Dumont MD Work Phone: [facility] Med Surg Comment on above: Hypertensive urgency Start: 05-01-2023 End: 05-01-2023 Emergency department patient visit JAGPRIT GEORGE SOUSA [facility] Start: 04-17-2023 End: 04-17-2023 Office outpatient new 45 minutes Leticia Sylvester MD Work Phone: [facility] Comment on above: Pain in left lower l eg Start: 02-16-2023 End: 02-16-2023 Emergency department patient visit LETICIA [facility] Start: 02-16-2023 End: 02-16-2023 Emergency department patient visit Leticia Sylvester MD Work Phone: [facility] Emergency Department Start: 11-05-2022 End: 11-05-2022 Emergency department patient visit VTSUKUMAR [facility] Start: 10-15-2022 End: 10-15-2022 Patient encounter procedure Av Delgado MD Work Phone: [facility] Urology Comment on above: Urinary frequency (P rimary Dx); Other microscopic hematuria Start: 10-09-2022 End: 10-09-2022 Subsequent hospital visit by physician Av Delgado MD Work Phone: [facility] CT Scan Comment on above: Arrived Start: 10-01-2022 End: 10-01-2022 Office outpatient new 45 minutes Av Delgado MD Work Phone: [facility] Comment on above: Other microscopic he maturia (Primary Dx); Urinary frequency Start: 09-11-2022 Letter encounter Lupillo Ocampo MD Work Phone: [facility] [employer] Start: 09-01-2022 End: 09-01-2022 Emergency department patient visit Bao Hsieh MD Work Phone: [facility] Emergency Department Start: 08-23-2022 Letter encounter Lupillo Ocampo MD Work Phone: [facility] Start: 08-19-2022 End: 08-20-2022 Phys/qhp telephone evaluation 21-30 min Eusebia Jones CHIEF RADIOLOGIC TECHNOLOGIST-SAMPLE DISTRIBUTOR Work Phone: [facility] G[facility]ology Comment on above: Hiatal hernia (Prima ry Dx); Grade I hemorrhoids; Early satiety; Epigastric pain Start: 08-19-2022 Letter encounter Lupillo Ocampo MD Work Phone: [facility] Start: 08-11-2022 End: 08-11-2022 Anesthesia consultation Lawrence Russell MD Work Phone: [facility] Start: 08-11-2022 End: 08-11-2022 Subsequent hospital visit by physician Jennifer Khoury MD Work Phone: [facility] Comment on above: RUQ pain (Primary Dx ); Change in bowel habits; Rectal bleeding; Cirrhosis of liver without ascites, unspecified hepatic cirrhosis type (HCC); History of colonic polyps; Esophageal dysphagia; Grade I hemorrhoids; Adenomatous polyp of sigmoid colon Start: 08-08-2022 End: 08-08-2022 Office outpatient visit 5 minutes Lisa Santana RN Work Phone: [facility] Comment on above: Encounter for dominick leone testing for severe acute respiratory syndrome coronavirus 2 (SARS-CoV-2) (Primary Dx) Start: 08-06-2022 Orders Only Av Ellis APR N-SAMPLE DISTRIBUTOR Work Phone: [facility] Gastroenterology Start: 08-04-2022 Orders Only Eusebia Jones CHIEF RADIOLOGIC TECHNOLOGIST-SAMPLE DISTRIBUTOR Work Phone: [facility] Gastroenterology Start: 08-01-2022 Orders Only Eusebia Jones CHIEF RADIOLOGIC TECHNOLOGIST-SAMPLE DISTRIBUTOR Work Phone: [facility] Gastroenterology Start: 07-28-2022 End: 07-28-2022 Patient encounter procedure Pse Anesthesia [facility] Pre Surgical Evaluation Comment on above: Pre-op evaluation (P rimary Dx) Start: 07-28-2022 End: 07-28-2022 Preprocedural examination done Pse Anesthesia [facility] Pre Surgical Evaluation Start: 05-21-2022 Letter encounter Lupillo Ocampo MD Work Phone: [facility] Start: 05-16-2022 Letter encounter Lupillo Ocampo MD Work Phone: [facility] Start: 04-25-2022 Letter encounter Gi Provider [facility] Gastroenterology Start: 04-23-2022 End: 04-23-2022 Letter encounter [place] [facility] Provider [facility] [place] [facility] Comment on above: Arrived Start: 04-23-2022 End: 04-23-2022 Office outpatient visit 25 minutes Jaime ROMERO Work Phone: [facility] Comment on above: Hepatic cirrhosis, u nspecified hepatic cirrhosis type, unspecified whether ascites present (HCC) (Primary Dx); Abdominal pain, unspecified abdominal location; Abnormal finding of blood chemistry, unspecified ; Abnormal findings on diagnostic imaging of other parts of digestive tract ; Body mass index (BMI) 45.0-49.9, adult (HCC) Rectal bleeding ([facility] Dx); Constipation, unspecified constipation type; Change in bowel habits; RUQ pain; Esophageal dysphagia; Encounter for laboratory testing for severe acute respiratory syndrome coronavirus 2 (SARS-CoV-2); Body mass index (BMI) 45.0-49.9, adult (HCC) Start: 02-14-2022 Letter encounter Lupillo Ocampo MD Work Phone: [facility] Start: 01-27-2022 End: 01-31-2022 Emergency department patient visit Av Bertrand MD Work Phone: [facility] Med Surg Comment on above: Chest pain Start: 10-22-2021 Home visit Irene champagne RN [facility] Comment on above: CASE COMMUNICATION Start: 10-21-2021 ambulatory [facility] Start: 09-26-2021 ambulatory [facility] Facility:[facility] Start: 08-29-2021 ambulatory [facility] Facility:[facility] Start: 06-07-2021 ambulatory [facility] Facility:[facility] Start: 04-03-2021 End: 04-03-2021 Subsequent hospital visit by physician Leticia Sylvester MD Work Phone: [facility] Ultrasound Comment on above: Arrived Start: 04-03-2021 ambulatory SELF SELF Facility:[facility] Start: 03-28-2021 End: 03-28-2021 Subsequent hospital visit by physician Leticia Sylvester MD Work Phone: [facility] Comment on above: Arrived Start: 02-27-2021 ambulatory SELF SELF Facility:[facility] Start: 02-20-2021 ambulatory [facility] Facility:[facility] Start: 02-15-2021 ambulatory DAMALIE N SHIRIMA Facil ity:[facility] Start: 02-13-2021 End: 02-13-2021 Refill Giorgi Thomas MD Work Phone: [facility] Phys[facility] Comment on above: Medication Refill; M edication Refill Start: 01-30-2021 ambulatory SELF SELF Facility:[facility] Start: 01-16-2021 ambulatory SELF SELF Facility:[facility] Start: 01-16-2021 ambulatory SELF SELF Facility:[facility] Start: 01-02-2021 ambulatory [facility] Facility:[facility] Start: 01-01-2021 ambulatory [facility] Facility:[facility] Start: 12-28-2020 ambulatory NESHAVANIA CHÁVEZ Facili ty:[facility] Start: 12-28-2020 End: 12-28-2020 Home visit Valarie Blackmon [facility] Comment on above: OT OASIS DISCHARGE Start: 12-26-2020 End: 12-26-2020 Home visit Nasima Acevedo [facility] Comment on above: WATER TEAM LEADER HH MISSED VISIT BURROWS MISSED VISIT Start: 12-26-2020 ambulatory ITZELSUKUMAR SYLVESTER Facility:[facility] Start: 12-21-2020 End: 12-21-2020 Home visit Gisele Cervantes [facility] Comment on above: BURROWS MISSED VISIT Start: 12-19-2020 End: 12-19-2020 Home visit Liliam Whiting [facility] Comment on above: MANAGER IN TRAINING MISSED VISIT WATER TEAM LEADER HH MISSED VISIT Start: 12-17-2020 End: 12-17-2020 Home visit Valarie Blackmon [facility] Comment on above: OT REASSESSMENT Start: 12-14-2020 End: 12-14-2020 Home visit Jessenia Reynoso [facility] th Comment on above: TELEPHONE ENCOUNTER Start: 12-13-2020 End: 12-13-2020 Home visit Valarie Blackmon [facility] Home [facility] Comment on above: OT MISSED VISIT Start: 12-12-2020 End: 12-12-2020 Home visit Liliam Whiting [facility] Comment on above: MANAGER IN TRAINING HH ROUTINE WATER TEAM LEADER HH MISSED VISIT Start: 12-11-2020 End: 12-11-2020 Home visit Annalee Dyson [facility] Home [facility] Comment on above: PT NON-OASIS/DISCIPL INE DISCHARGE BURROWS ROUTINE VISIT Start: 12-06-2020 End: 12-06-2020 Home visit Annalee Dyson [facility] Comment on above: PT INITIAL EVALUATIO N Start: 12-05-2020 End: 12-05-2020 Home visit Valarie Blackmon [facility] Comment on above: OT SECONDARY KRYSTIN Start: 12-05-2020 End: 12-05-2020 Home visit Liliam Whiting [facility] Comment on above: MANAGER IN TRAINING HH ROUTINE Start: 12-04-2020 End: 12-04-2020 Home visit Annalee Dyson [facility] Comment on above: CASE COMMUNICATION Start: 12-03-2020 End: 12-03-2020 Home visit Ashley Mcgrath [facility] Comment on above: SN HH OASIS RESUMPTI ON OF CARE Start: 11-28-2020 End: 12-01-2020 Evaluation and management of inpatient Adam Russ Work Phone: [facility] Med Surg Oncology Start: 11-28-2020 End: 11-28-2020 Home visit Liliam Whiting [facility] Home [facility] Comment on above: MANAGER IN TRAINING MISSED VISIT BURROWS ROUTINE VISIT Start: 11-27-2020 End: 11-27-2020 Home visit Ashley Mcgrath [facility] Home [facility] Comment on above: CASE COMMUNICATION SN MISSED VISIT Start: 11-26-2020 End: 11-26-2020 Home visit Annalee Dyson [facility] Comment on above: PT MISSED VISIT BURROWS ROUTINE VISIT Start: 11-23-2020 End: 11-23-2020 Home visit Marcello Lewis [facility] Comment on above: SANDING SUPERVISOR MISSED VISIT BURROWS ROUTINE VISIT SN MISSED VISIT Start: 11-22-2020 End: 11-22-2020 Home visit Marcello Lewis [facility] Home [facility] Comment on above: SANDING SUPERVISOR ROUTINE VISIT Start: 11-19-2020 End: 11-19-2020 Subsequent hospital visit by physician Digna Enriquez Work Phone: [facility] Comment on above: Bilateral pain of le g and foot Start: 11-19-2020 End: 11-19-2020 Home visit Valarie Ochoa Lorri [facility] Comment on above: OT ROUTINE VISIT Start: 11-16-2020 End: 11-16-2020 Home visit Carmen Louise [facility] Comment on above: CASE COMMUNICATION PT INITIAL EVALUATIO N OT INITIAL EVALUATIO N SN HH OASIS START OF CARE Start: 11-14-2020 End: 11-14-2020 Subsequent hospital visit by physician Digna Enriquez Work Phone: [facility] Periop Start: 11-10-2020 End: 11-10-2020 Patient encounter procedure [facility] Start: 11-08-2020 Preprocedural examination done Lupillo Ocampo MD Work Phone: [facility] Start: 11-05-2020 End: 11-05-2020 Transcribe Orders Elizabeth [facility] Comment on above: Contact with or expo sure to viral disease (Primary Dx) Start: 11-03-2020 Preprocedural examination done Giorgi Thomas MD Work Phone: [facility] Start: 10-29-2020 End: 10-29-2020 Transcribe Orders Elizabeth [facility] Comment on above: COVID-19 (Primary Dx ) Start: 11-01-2019 End: 11-01-2019 Emergency department patient visit Cecilanthony Gomez Work Phone: [facility] Emergency Department Comment on above: Arthritis of right s [place] region (Primary Dx); Bronchospasm Start: 09-20-2019 End: 09-20-2019 Subsequent hospital visit by physician Giorgi Thomas Work Phone: [facility] CT Scan Comment on above: MCGOWAN (dyspnea on exer tion) Start: 09-05-2019 End: 09-05-2019 Subsequent hospital visit by physician Giorgi Thomas Work Phone: [facility] Comment on above: MCGOWAN (dyspnea on exer tion) Start: 08-22-2019 End: 08-22-2019 Office outpatient visit 25 minutes Giorgi Thomas Work Phone: [facility] Comment on above: MCGOWAN (dyspnea on exer tion) (Primary Dx); ASHD (arteriosclerotic heart disease) Start: 07-29-2019 End: 07-29-2019 Subsequent hospital visit by physician Joe Colón Work Phone: [facility] Endoscopy Start: 07-28-2019 End: 07-28-2019 Office consultation new/estab patient 80 min Joe Colón Work Phone: [facility] Preadmission Testing Comment on above: Preop examination (P rimary Dx); Personal history of colonic polyps; Morbid obesity (HCC); Coronary artery disease involving [place] coronary artery of [place] heart without angina pectoris; Other cirrhosis of liver (HCC); KELLY (obstructive sleep apnea); Essential hypertension; Hyperlipidemia, unspecified hyperlipidemia type Start: 07-28-2019 End: 07-28-2019 Subsequent hospital visit by physician Julia Anderson Work Phone: [facility] Ultrasound Comment on above: Epigastric pain; Other cirrhosis of liver (HCC); Personal history of colonic polyps; Gastrointestinal symptoms; Hematochezia; Hepatic encephalopathy (HCC) Start: 07-08-2019 End: 07-08-2019 Subsequent hospital visit by physician Hari Acosta Work Phone: [facility] Procedural Care Unit Start: 06-30-2019 End: 06-30-2019 Clinical Support Lupe Jeong [facility] Comment on above: Chest pain, unspecif ied type (Primary Dx); MCGOWAN (dyspnea on exertion) Start: 06-23-2019 End: 06-23-2019 Subsequent hospital visit by physician Giorgi Thomas Work Phone: [facility] Ortho Clinic Comment on above: Chest pain, unspecif ied type; MCGOWAN (dyspnea on exertion); ASHD (arteriosclerotic heart disease) Start: 06-23-2019 End: 06-23-2019 Office outpatient visit 25 minutes Giorgi Thomas Work Phone: [facility] Comment on above: Chest pain, unspecif ied type (Primary Dx); MCGOWAN (dyspnea on exertion); ASHD (arteriosclerotic heart disease) Start: 05-02-2019 End: 05-02-2019 Subsequent hospital visit by physician Aleida Leal Work Phone: [facility] CT Scan Comment on above: Stomach ache Start: 03-01-2019 End: 03-01-2019 Documentation procedure Ariella Chiu [facility] Phys icians Dermatology Start: 08-04-2018 End: 08-04-2018 Emergency department patient visit Adam Russ Facility:[place] Start: 07-19-2018 Patient encounter procedure Leticia Higinio Facility:[place] Start: 07-19-2018 End: 07-19-2018 Patient encounter Itzelsukumar Higinio Work Phone: [facility] Start: 06-25-2018 Patient encounter procedure Sondra To Facility:[place] Start: 06-25-2018 End: 06-25-2018 Patient encounter Sondra To Work Phone: [facility] Start: 04-26-2018 End: 04-27-2018 Emergency department patient visit Charles Russell Facility:[place] Start: 11-26-2017 Patient encounter procedure Valentino Adkins Facility:[place] Start: 11-26-2017 End: 11-26-2017 Ambulatory Valentino Adkins Work Phone: [facility] Procedures Date Procedure Procedure Detail Performing Clinician Start: 02-19-2024 Us abdominal real ti me w/image limited Jaime Carter CHIEF RADIOLOGIC TECHNOLOGIST-SAMPLE DISTRIBUTOR Work Phone: Start: 02-19-2024 Liver elastography w /o imag w/i&r Jaime Carter CHIEF RADIOLOGIC TECHNOLOGIST-SAMPLE DISTRIBUTOR Work Phone: Start: 01-27-2024 Alpha-fetoprotein serum Jaime Carter CHIEF RADIOLOGIC TECHNOLOGIST-SAMPLE DISTRIBUTOR Work Phone: Start: 01-27-2024 Hepatic function panel Jaime Carter CHIEF RADIOLOGIC TECHNOLOGIST-SAMPLE DISTRIBUTOR Work Phone: Start: 12-19-2023 Ct abdomen & [...] with white cell differential, automated Giorgi Adan CHIEF RADIOLOGIC TECHNOLOGIST-SAMPLE DISTRIBUTOR Work Phone: Start: 05-26-2023 Renal function panel Taina Bee MD Work Phone: Start: 05-25-2023 Comprehensive metabolic panel Giorgi Adan CHIEF RADIOLOGIC TECHNOLOGIST-SAMPLE DISTRIBUTOR Work Phone: Start: 05-24-2023 Comprehensive metabolic panel Giorgi Adan CHIEF RADIOLOGIC TECHNOLOGIST-SAMPLE DISTRIBUTOR Work Phone: Start: 05-23-2023 Us retroperitoneal r eal time w/image complete Giorgi Adan CHIEF RADIOLOGIC TECHNOLOGIST-SAMPLE DISTRIBUTOR Work Phone: Start: 09-02-2023 Comprehensive metabolic panel Giorgi D Loco CHIEF RADIOLOGIC TECHNOLOGIST-SAMPLE DISTRIBUTOR Work Phone: Start: 05-23-2023 Lipid panel Giorgi Adan CHIEF RADIOLOGIC TECHNOLOGIST-SAMPLE DISTRIBUTOR Work Phone: Start: 05-23-2023 Lipid 1996 panel - S jina or Plasma Jose Eduardo Dumont MD Work Phone: Start: 05-22-2023 Assay of troponin quantitative Giorgi Adan CHIEF RADIOLOGIC TECHNOLOGIST-SAMPLE DISTRIBUTOR Work Phone: Start: 05-22-2023 Cultyp nuc acid amp prb cult/isolate ea orgnism Giorgi Adan CHIEF RADIOLOGIC TECHNOLOGIST-SAMPLE DISTRIBUTOR Work Phone: Start: 05-22-2023 Ct head/brain w/o [...] Assay of urine sodium S arleth Adan CHIEF RADIOLOGIC TECHNOLOGIST-SAMPLE DISTRIBUTOR Work Phone: Start: 05-22-2023 Urnls dip stick/tabl [...] by KRANTHI with probe detection Av Ellis APRN-SAMPLE DISTRIBUTOR Work Phone: Start: 07-28-2022 Ecg routine ecg w/le ast 12 lds trcg only w/o i&r Giacomo Mc MD Work Phone: Start: 04-23-2022 Alpha-fetoprotein serum Jaime Carter APRN-SAMPLE DISTRIBUTOR Work Phone: Start: 04-23-2022 Hepatic function panel Jaime Carter CHIEF RADIOLOGIC TECHNOLOGIST-SAMPLE DISTRIBUTOR Work Phone: Start: 04-23-2022 Lipid 1996 panel - S jina or Plasma Eduardo Ahmadi Work Phone: Start: 01-31-2022 C-reactive protein Foreign Campos CHIEF RADIOLOGIC TECHNOLOGIST-SAMPLE DISTRIBUTOR Work Phone: Start: 01-31-2022 Complete blood count with white cell differential, automated Flip Campos CHIEF RADIOLOGIC TECHNOLOGIST-SAMPLE DISTRIBUTOR Work Phone: Start: 01-31-2022 Comprehensive metabolic panel Flip Campos CHIEF RADIOLOGIC TECHNOLOGIST-SAMPLE DISTRIBUTOR Work Phone: Start: 01-30-2022 Urinalysis microscopic only Flip Campos CHIEF RADIOLOGIC TECHNOLOGIST-SAMPLE DISTRIBUTOR Work Phone: Start: 01-30-2022 Urinalysis, reagent strip without microscopy Flip Campos CHIEF RADIOLOGIC TECHNOLOGIST-SAMPLE DISTRIBUTOR Work Phone: Start: 01-30-2022 Urine drug screening Shawanda Campos CHIEF RADIOLOGIC TECHNOLOGIST-SAMPLE DISTRIBUTOR Work Phone: Start: 01-30-2022 Ct head/brain w/o co ntrast material Flip Campos CHIEF RADIOLOGIC TECHNOLOGIST-SAMPLE DISTRIBUTOR Work Phone: Start: 01-30-2022 Myocardial spect mul tiple studies Giorgi Pfeiffer Loco CHIEF RADIOLOGIC TECHNOLOGIST-SAMPLE DISTRIBUTOR Work Phone: Start: 01-30-2022 C-reactive protein Foreign Campos CHIEF RADIOLOGIC TECHNOLOGIST-SAMPLE DISTRIBUTOR Work Phone: Start: 01-30-2022 Complete blood count with white cell differential, automated Flip Campos CHIEF RADIOLOGIC TECHNOLOGIST-SAMPLE DISTRIBUTOR Work Phone: Start: 01-30-2022 Comprehensive metabolic panel Flip Campos CHIEF RADIOLOGIC TECHNOLOGIST-SAMPLE DISTRIBUTOR Work Phone: Start: 01-29-2022 Ecg routine ecg w/le ast 12 lds trcg only w/o i&r Isreal Brush PA-C Work Phone: Start: 01-29-2022 Ecg routine ecg w/le ast 12 lds trcg only w/o i&r Isreal HAMMER-C Work Phone: Start: 01-29-2022 Assay of troponin quantitative Isreal HAMMER-C Work Phone: Start: 01-29-2022 C-reactive protein Foreign ua D Grund CHIEF RADIOLOGIC TECHNOLOGIST-SAMPLE DISTRIBUTOR Work Phone: Start: 01-29-2022 End: 01-29-2022 Comprehensive metabolic panel Flip Ayers rund CHIEF RADIOLOGIC TECHNOLOGIST-SAMPLE DISTRIBUTOR Work Phone: Start: 01-28-2022 TTE w or wo fol wcon,Doppler Flip Pfeiffer Grund CHIEF RADIOLOGIC TECHNOLOGIST-SAMPLE DISTRIBUTOR Work Phone: Start: 01-28-2022 C-reactive protein Foreign ua Kentrell Grund CHIEF RADIOLOGIC TECHNOLOGIST-SAMPLE DISTRIBUTOR Work Phone: Start: 01-28-2022 Potassium serum plas [...] blood count with white cell differential, automated [employer] Giacomohailan Work Phone: Start: 11-29-2020 Complete blood [...] DTaP/Tdap/Td Vaccines (2 - Td or Tdap) [facility] Start: 02-01-2034 Tetanus vaccination Tetanus (Td or Tdap) Booster [facility] Start: 08-11-2032 [facility] malignant [facility] Start: 07-29-2029 Screening for malignant neoplasm of colon [facility] Start: 08-10-2028 Cholesterol [Mass/volume] in Serum or Plasma Cholesterol [facility] Start: 05-23-2028 Lipid panel LIPID SCREENING [facility] Start: 04-23-2027 Cholesterol [Mass/volume] in Serum or Plasma Cholesterol [facility] Start: 04-23-2027 Lipid panel Lipid Panel [facility] Start: 08-10-2026 Diabetes mellitus screening Diabetes Screening [facility] Start: 2026 Pneumococcal Vaccine: Ped or At-Risk (2 of 2 - PPSV23) Pneumococcal Vaccine: Ped or At-Risk (2 of 2 - PPSV23) [facility] Start: 01-16-2026 Fasting lipid profile LIPID SCREENING [facility] Start: 01-16-2026 Lipid panel LIPID SCREENING [facility] Start: 08-11-2025 Screening for malignant neoplasm of colon [facility] Start: 06-25-2025 Screening for malignant neoplasm of colon [facility] Start: 01-26-2025 Creatinine measurement Basic Metabolic Panel [facility] Start: 08-20-2024 Liver Imaging (Hepatocellular Carcinoma Screening) Liver Imaging (Hepatocellular Carcinoma Screening) [facility] Start: 07-29-2024 Fluid sample AFP level Alpha Fetoprotein (Hepatocellular Carcinoma Screening) [facility] Start: 07-26-2024 End: 07-26-2024 Patient encounter procedure 07/26/2024 1:00 PM EST Office Visit [facility] [address] [place] [address] Jaime Carter APRN-SAMPLE DISTRIBUTOR [address] [place] [address] [facility] Start: 06-06-2024 Creatinine measurement Basic Metabolic Panel [facility] Start: 05-26-2024 Potassium [Moles/volume] in Serum or Plasma POTASSIUM [facility] Start: 02-26-2024 End: 02-25-2025 25-hydroxyvitamin D3 [Mass/volume] in Serum or Plasma Vitamin D 25-Hydroxy,Total (for eval of Vitamin D levels) Lab Routine Vitamin D deficiency Expected: 02/26/2024 (Approximate), Expires: 02/25/2025 [facility] Work Phone: Comment on above: Expected: 02/26/2024 (Approximate), Expi res: 02/25/2025 Start: 02-26-2024 End: 02-25-2025 Basic metabolic 2000 panel - Serum or Plasma Basic Metabolic Panel Lab Routine Hyperglycemia Expected: 02/26/2024 (Approximate), Expires: 02/25/2025 [facility] Work Phone: Comment on above: Expected: 02/26/2024 (Approximate), Expi res: 02/25/2025 Start: 02-26-2024 End: 02-25-2025 Hemoglobin A1c/Hemoglobin.total in Blood Hemoglobin A1C Lab Routine Hyperglycemia Expected: 02/26/2024 (Approximate), Expires: 02/25/2025 [facility] Work Phone: Comment on above: Expected: 02/26/2024 (Approximate), Expi res: 02/25/2025 Start: 02-26-2024 End: 02-25-2025 Home sleep apnea test (HSAT) Home sleep apnea test (HS AT) Sleep Center Routine KELLY (obstructive sleep apnea) Expected: 02/26/2024 (Approximate), Expires: 02/25/2025 [facility] Service Area Work Phone: Comment on above: Expected: 02/26/2024 (Approximate), Expi res: 02/25/2025 Start: 02-19-2024 End: 02-19-2024 Patient encounter procedure [facility] Start: 02-17-2024 Potassium [Moles/volume] in Serum or Plasma POTASSIUM [employer] [facility] Start: 01-27-2024 End: 01-26-2025 US Abdomen RUQ US LIVER/GALL BLADDER/PANCREAS Imaging Routine Hepatic cirrhosis, unspecified hepatic cirrhosis type, unspecified whether ascites present (HCC) Expected: 01/27/2024, Expires: 01/26/2025 [facility] Work Phone: Comment on above: Expected: 01/27/2024, Expires: Start: 10-12-2023 End: 10-12-2023 Patient encounter procedure 10/12/2023 1:30 PM EST Office Visit [facility] [address] [place] [id number] Marquise Greenwood MD [address] [place] [phone] [facility] Start: 09-01-2023 Potassium [Moles/volume] in Serum or Plasma POTASSIUM [facility] Start: 08-06-2023 End: 08-06-2023 Social Work 08/06/2023 2:00 PM EST Social Work [facility] [address] [place] [address] Hyacinth Reeves LISW [address] [place] [id number] [facility] Start: 05-22-2023 COVID-19 Vaccine ( season) COVID-19 Vaccine ( season) [facility] Start: 05-22-2023 Influenza vaccination Sequential Influenza Vaccine (#1) [facility] Start: 04-23-2023 End: 04-23-2023 Basic metabolic 2000 panel - Serum or Plasma [facility] Comment on above: 1 Occurrences starting 04/23/2022 until 04/23/2023 Start: 04-23-2023 Creatinine measurement Basic Metabolic Panel [facility] Start: 01-31-2023 Basic metabolic 2000 panel - Serum or Plasma Basic Metabolic Panel [facility] Start: 01-13-2023 End: 01-13-2023 Patient encounter procedure 01/13/2023 Office Visit Urology Lisa Gill, SAMPLE DISTRIBUTOR [address] [address] [facility] Urology Start: 12-01-2022 Cholesterol [Mass/volume] in Serum or Plasma Cholesterol [facility] Start: 11-19-2022 Annual wellness visit Annual Wellness Visit ([id number]) [facility] Start: 10-24-2022 Fluid sample AFP level Alpha Fetoprotein (Hepatocellular Carcinoma Screening) [facility] Start: 10-15-2022 End: 10-15-2022 Patient encounter procedure 10/15/2022 Office Visit Urology Av Delgado MD [address] [place] [address] [facility] Urology Start: 10-02-2022 End: 10-01-2023 CT Ab[address]en and Pelvis CT UROGRAM ABDOMEN/PELVIS W/ CT POST PROCESSING Imaging Routine Other microscopic hematuria Urinary frequency Expected: 10/02/2022 (Approximate), Expires: 10/01/2023 [facility] Comment on above: Expected: 10/02/2022 (Approximate), Expi res: 10/01/2023 Start: 09-30-2022 End: 09-30-2022 Patient encounter procedure 09/30/2022 Appointment Radiology [facility] Radiology Start: 08-19-2022 End: 08-19-2022 Telemedicine consultation with patient 08/19/2022 Telemedicine Gastroenterology Eusebia Jones, AWILDA-ORTIZ [address] [place] [address] [facility] [place] [facility] Start: 08-19-2022 End: 08-19-2023 NM Stomach Views for gastric emptying W radionuclide PO NM GASTRIC EMPTYING STUDY Imaging Routine Early satiety Expected: 08/19/2022, Expires: 08/19/2023 [employer] Work Phone: Comment on above: Expected: 08/19/2022, Expires: Start: 08-11-2022 End: 08-11-2022 Admission to same day surgery center 08/11/2022 Surgery Gastroenterology Jennifer Khoury MD [address] [facility] [place] [address] ESOPHAGOGASTRODUODENOSCOPY AND COLONOSCOPY, GENERAL ANESTHESIA [facility] Comment on above: ESOPHAGOGASTRODUODENOSCOPY AND COLONOSCO PY, GENERAL ANESTHESIA Start: 08-11-2022 End: 08-11-2022 ESOPHAGOGASTRODUODENOSCOPY AND COLONOSCOPY, GENERAL ANESTHESIA [facility] Start: 08-11-2022 Subsequent hospital visit by physician 08/11/2022 Hospital Encounter Gastroenterology Jennifer Khoury MD [address] [place] [id number] [facility] Start: 08-08-2022 End: 08-08-2022 Nursing evaluation of patient and report 08/08/2022 Nurse Visit [facility] Start: 08-06-2022 End: 09-05-2022 SARS-CoV-2 (COVID-19) RNA [Presence] in Unspecified specimen by KRANTHI with probe detection NOVEL CORONAVIRUS (COVID-19) Lab Routine Encounter for laboratory testing for severe acute respiratory syndrome coronavirus 2 (SARS-CoV-2) Expected: 08/06/2022, Expires: 09/05/2022 [employer] Work Phone: Comment on above: Expected: 08/06/2022, Expires: 2 Start: 08-04-2022 End: 09-03-2022 SARS-CoV-2 (COVID-19) RNA [Presence] in Unspecified specimen by KRANTHI with probe detection NOVEL CORONAVIRUS (COVID-19) Lab Routine Encounter for laboratory testing for severe acute respiratory syndrome coronavirus 2 (SARS-CoV-2) Expected: 08/04/2022, Expires: 09/03/2022 [employer] Work Phone: Comment on above: Expected: 08/04/2022, Expires: 2 Start: 08-01-2022 End: 08-31-2022 SARS-CoV-2 (COVID-19) RNA [Presence] in Unspecified specimen by KRANTHI with probe detection NOVEL CORONAVIRUS (COVID-19) Lab Routine Encounter for laboratory testing for severe acute respiratory syndrome coronavirus 2 (SARS-CoV-2) Expected: 08/01/2022, Expires: 08/31/2022 [facility] Work Phone: Comment on above: Expected: 08/01/2022, Expires: Start: 07-28-2022 End: 07-28-2022 Patient encounter procedure 07/28/2022 Office Visit Presurgical Evaluation [facility] Pre Surgical Evaluation Start: 06-21-2022 Influenza vaccination Influenza Vaccine (#1) [facility] Start: 05-21-2022 End: 05-21-2022 Telemedicine consultation with patient 05/21/2022 Telemedicine Gastroenterology Jaime Carter APRN-SAMPLE DISTRIBUTOR [address] [place] [address] [facility] Start: 2022 End: 2022 Professional / ancillary services management 2022 Ancillary Procedure Radiology [facility] Radiology CT Scan Start: 04-23-2022 End: 04-23-2023 CT Abdomen and Pelvis W contrast IV CT ABDOMEN/PELVIS W/ CONTRAST Imaging Routine Hepatic cirrhosis, unspecified hepatic cirrhosis type, unspecified whether ascites present (HCC) Abdominal pain, unspecified abdominal location Expected: 04/23/2022, Expires: 04/23/2023 [facility] Comment on above: Expected: 04/23/2022, Expires: Start: 04-23-2022 End: 04-23-2022 Patient encounter procedure 04/23/2022 Office Visit Gastroenterology Eusebia Jones APRN-SAMPLE DISTRIBUTOR [address] [place] [address] Arrived [facility] G[facility]enterology Comment on above: Arrived Start: 04-23-2022 End: 08-23-2022 SARS-CoV-2 (COVID-19) RNA [Presence] in Unspecified specimen by KRANTHI with probe detection NOVEL CORONAVIRUS (COVID-19) Lab Routine Encounter for laboratory testing for severe acute respiratory syndrome coronavirus 2 (SARS-CoV-2) Expected: 04/23/2022, Expires: 08/23/2022 [facility] Work Phone: Comment on above: Expected: 04/23/2022, Expires: Start: 11-19-2021 Welcome to Medicare Visit (G0402) Welcome to Medicare Visit (G0402) [facility] Start: 11-01-2021 Basic metabolic 2000 panel - Serum or Plasma Basic Metabolic Panel [facility] Start: 05-22-2021 Influenza vaccination Sequential Influenza Vaccine (#1) [facility] Start: 2021 RSV patients and/or patients aged 60+ years (1 - 1-dose 60+ series) RSV patients and/or patients aged 60+ years (1 - 1-dose 60+ series) [facility] Start: 2021 RSV vaccine (optional 60+ years) RSV vaccine (optional 60+ years) [facility] Start: 01-14-2021 End: 01-14-2021 Appointment 01/14/2021 Appointment Home Health Services Ashley Mcgrath RN [facility] Start: 01-10-2021 End: 01-10-2021 Appointment 01/10/2021 Appointment Home Health Services Ashley Mcgrath RN [facility] Start: 01-09-2021 End: 01-09-2021 Home Care Visit [facility] Start: 01-03-2021 End: 01-03-2021 Home Care Visit 01/03/2021 Home Care Visit Home Health Services Ashley Mcgrath RN [facility] Start: 01-02-2021 End: 01-02-2021 Home Care Visit [facility] Start: 01-02-2021 End: 01-02-2021 Home Care Visit 01/02/2021 Home Care Visit Home Health Services Liliam Whiting PSA [facility] Start: 12-28-2020 End: 12-28-2020 Home Care Visit 12/28/2020 Home Care Visit Home Health Services Valarie Blackmon OT [facility] Start: 12-27-2020 End: 12-27-2020 Home Care Visit 12/27/2020 Home Care Visit Home Health Services Ashley Mcgrath, RN [facility] Start: 12-26-2020 End: 12-26-2020 Home Care Visit [facility] Start: 12-20-2020 End: 12-20-2020 Home Care Visit 12/20/2020 Home Care Visit Home Health Services Ashley Mcgrath RN [facility] Start: 12-19-2020 End: 12-19-2020 Home Care Visit [facility] Start: 12-13-2020 End: 12-13-2020 Home Care Visit [facility] Start: 12-12-2020 End: 12-12-2020 Home Care Visit [facility] Start: 12-06-2020 End: 12-06-2020 Home Care Visit 12/06/2020 Home Care Visit Home Health Services Annalee Dyson, PT [facility] Start: 12-06-2020 End: 12-06-2020 Home Care Visit 12/06/2020 Home Care Visit Home Health Services Annalee Dyson, PT [facility] Start: 12-06-2020 End: 12-06-2020 Home Care Visit 12/06/2020 Home Care Visit Home Health Services Ashley Mcgrath RN [facility] Start: 12-05-2020 End: 12-05-2020 Home Care Visit 12/05/2020 Home Care Visit Home Health Services Valarie Blackmon OT [facility] Start: 12-05-2020 End: 12-05-2020 Home Care Visit [facility] Start: 12-03-2020 End: 12-03-2020 Home Care Visit 12/03/2020 Home Care Visit Home Health Services Gisele Cervantes OTA [facility] Start: 11-30-2020 End: 11-30-2020 Home Care Visit 11/30/2020 Home Care Visit Home Health Services Annalee Dyson, BLAISE [facility] Start: 11-29-2020 End: 11-29-2020 Home Care Visit [facility] Start: 11-28-2020 End: 11-28-2020 Home Care Visit [facility] Start: 11-27-2020 End: 11-27-2020 Home Care Visit 11/27/2020 Home Care Visit Home Health Services Ashley Mcgrath RN [facility] Start: 11-26-2020 End: 11-26-2020 Home Care Visit [facility] Start: 11-23-2020 End: 11-23-2020 Home Care Visit [facility] Home [facility] Start: 11-22-2020 End: 11-22-2020 Home Care Visit [facility] Start: 11-20-2020 End: 11-20-2020 Home Care Visit 11/20/2020 Home Care Visit Home Health Services Marcello Lewis PTA [facility] Start: 11-16-2020 End: 11-16-2020 Home Care Visit 11/16/2020 Home Care Visit Home Health Services Annalee Dyson PT [facility] Start: 11-14-2020 End: 11-14-[address] [facility] Periop Comment on above: EXCISION HEEL SPUR RIGHT FOOT Start: 11-10-2020 End: 11-10-2020 Office Visit 11/10/2020 Office Visit Lab Digna Enriquez, KEVIN [address] [place] [address] [phone] [facility] Start: 11-01-2020 End: 11-01-2020 Office Visit 11/01/2020 Office Visit Pre-Admission Testing [facility] Preadmission Testing Start: 10-28-2020 Hepatocellular Carcinoma Screening Hepatocellular Carcinoma Screening [facility] Start: 10-28-2020 Liver Imaging (Hepatocellular Carcinoma Screening) Liver Imaging (Hepatocellular Carcinoma Screening) [facility] Start: 05-22-2020 Influenza vaccination given Sequential Influenza Vacci ne (#1) [facility] Start: 09-06-2019 End: 09-06-2019 Appointment 09/06/2019 Appointment Radiology Giorgi Thomas MD [address] [address] [phone] [facility] CT Scan Start: 09-05-2019 End: 09-05-2019 Appointment 09/05/2019 Appointment Cardiology Giorgi Thomas MD [address] [address] [phone] [facility] Start: 08-22-2019 End: 08-22-2019 Office Visit 08/22/2019 Office Visit Cardiology Giorgi Thomas MD [address] [address] [phone] [facility] Start: 07-29-2019 End: 07-29-2019 Hospital Encounter [facility] Endoscopy Comment on above: COLONOSCOPY WITH ANESTHESIA Start: 05-22-2019 Influenza vaccination given [facility] Start: 05-02-2019 End: 05-02-2019 Office Visit 05/02/2019 Office Visit Dermatology Nafisa, Misael Mei MD [address] [place] [address] [phone] [facility] D[facility] Start: 12-15-2018 Screening for malignant neoplasm of breast Mammography [facility] Start: 05-22-2018 Influenza vaccination SEQUENTIAL INFLUENZA VACCINE (#1) [facility] Start: 05-22-2017 Influenza vaccination SEQUENTIAL INFLUENZA VACCINE (#1) [facility] Start: 07-04-2015 Pneumococcal vaccination [facility] Start: 07-04-2015 Pneumococcal Vaccine: Ped or At-Risk (2 - PCV) Pneumococcal Vaccine: Ped or At-Risk (2 - PCV) [facility] Start: 07-04-2015 Pneumococcal Vaccine: Ped or At-Risk (2 of 2 - PCV) Pneumococcal Vaccine: Ped or At-Risk (2 of 2 - PCV) [facility] Start: 07-04-2015 Pneumococcal Vaccine: Pediatrics (0 to 5 Years) and At-Risk Patients (6 to 64 Years) (2 of 2 - PCV) Pneumococcal Vaccine: Pediatrics (0 to 5 Years) and At-Risk Patients (6 to 64 Years) (2 of 2 - PCV) [facility] Start: 2011 Administration of herpes zoster vaccine Zoster Vaccines (1 of 2) [facility] Start: 2011 Measurement of occult blood in single stool specimen FIT [facility] Start: 2011 Screening for malignant neoplasm of colon [facility] Start: 2011 Zoster vaccine hzv live for subcutaneous use ZOSTER (SHINGLES) VACCINE (1 of 2) [facility] Start: 2006 Colonoscopy COLORECTAL CANCER SCREENING DISCUSSION [facility] Start: 2006 Screening for malignant neoplasm of colon [facility] Start: 2001 Screening for malignant neoplasm of breast [facility] Start: 2001 Screening mammography [facility] Start: 1982 Screening for malignant neoplasm of cervix [facility] Start: 1980 Third diphtheria, tetanus and acellular pertussis (DTaP) vaccination TDAP (ADULT) [facility] Start: 1979 Hepatitis C antibody, confirmatory test Hepatitis C Screening [facility] Start: 1979 Hepatitis C screening Hepatitis C Screening [facility] Start: 1979 Tetanus + diphtheria + acellular pertussis vaccine (product) Tdap Booster [facility] Start: 1979 Tetanus vaccination TETANUS [facility] Start: 1977 COVID-19 Vaccine (1 of 2) COVID-19 Vaccine (1 of 2) [facility] Start: 1977 COVID-19 Vaccine (1) COVID-19 Vaccine (1) [facility] Start: 1976 HIV screening [facility] Start: 1973 Adolescent depression screening assessment Depression Screening (PHQ9) [facility] Start: 1973 COVID-19 Vaccine (1) COVID-19 Vaccine (1) [facility] Start: 1973 Depression screening using PHQ-9 (Patient Health Questionnaire 9) score Depression Screening (PHQ9) [facility] Start: 1967 Pneumococcal Vaccine: Ped or At-Risk (1 of 2 - PPSV23) Pneumococcal Vaccine: Ped or At-Risk (1 of 2 - PPSV23) [facility] Start: 1966 COVID-19 VACCINE (#1) COVID-19 VACCINE (#1) [facility] Start: 1966 COVID-19 Vaccine (1) COVID-19 Vaccine (1) [facility] Start: 1964 History and physical examination, annual for health maintenance Wellness Visit [facility] Start: 1962 MMR Vaccines (1 of 1 - Standard series) MMR Vaccines (1 of 1 - Standard series) [facility] Start: 1961 COVID-19 Vaccine (#1) COVID-19 Vaccine (#1) [facility] Start: 1961 Hepatitis C antibody, confirmatory test HEPATITIS C SCREENING [facility] Start: 1961 Medicare Annual Wellness Visit Medicare Annual Wellness Visit (AWV) [facility] Start: 1961 Protein mass conc Mammogram [facility] Start: 1961 Screening for malignant neoplasm of colon [facility] Start: 1961 Screening mammography Mammogram [facility] Start: 1961 HEPATITIS C SCREENING HEPATITIS C SCREENING [facility] Start: 1961 Screening colonoscopy COLONOSCOPY [facility] Start: 1961 End: 1961 Screening for malignant neoplasm of cervix PAP SMEAR [facility] Start: 1961 End: 1961 Tetanus vaccination [facility] End: 05-24-2023 [facility] Comment on above: One Time for 1 Occurrences starting 11/2022 until 05/24/2023 End: 05-23-2023 ALDOSTERONE ALDOSTERONE Lab Routine One Time Morning Lab for 1 Occurrences starting 05/23/2023 until 05/23/2023 [facility] Comment on above: One Time Morning Lab for 1 Occurrences s tarting 05/23/2023 until 05/23/2023 ALDOSTERONE ALDOSTERONE Lab Today 05/23/2023 5:25 AM [facility] End: 04-23-2023 Alpha-fetoprotein serum ALPHA FETOPROTEIN TUMOR MARKER Lab Routine Hepatic cirrhosis, unspecified hepatic cirrhosis type, unspecified whether ascites present (HCC) Abdominal pain, unspecified abdominal location 1 Occurrences starting 04/23/2022 until 04/23/2023 [facility] Comment on above: 1 Occurrences starting 04/23/2022 until 04/23/2023 Alpha-fetoprotein serum ALPHA FE TOPROTEIN TUMOR MARKER Lab Routine Hepatic cirrhosis, unspecified hepatic cirrhosis type, unspecified whether ascites present (HCC) Abdominal pain, unspecified abdominal location 04/23/2022 12:48 PM EDT [facility] Bacteria identified Cx Nom (Bld) Blood Culture Aerobic/Anaerobic Microbiology Routine 11/28/2020 5:23 PM EST [facility] Bacteria identified in Urine by Culture URINE CULTURE Microbiology Routine 01/30/2022 5:40 PM [facility] Work Phone: Bacteria identified in Urine by Culture URINE CULTURE Microbiology [facility]ine [facility] 2000 [facility] - Serum or Plasma BASIC METABOLIC PANEL Lab Routine Hepatic cirrhosis, unspecified hepatic cirrhosis type, unspecified whether ascites present (HCC) Abdominal pain, unspecified abdominal location 04/23/2022 12:48 PM EDT [facility] End: 04-23-2023 CBC panel - Blood by Automated count COMPLETE BLOOD COUNT Lab Routine Hepatic cirrhosis, unspecified hepatic cirrhosis type, unspecified whether ascites present (HCC) Abdominal pain, unspecified abdominal location 1 Occurrences starting 04/23/2022 until 04/23/2023 [employer] Work Phone: Comment on above: 1 Occurrences starting 04/23/2022 until 04/23/2023 CBC panel - Blood by Automated count COMPLETE BLOOD COUNT Lab Routine Hepatic cirrhosis, unspecified hepatic cirrhosis type, unspecified whether ascites present (HCC) Abdominal pain, unspecified abdominal location 04/23/2022 12:48 PM EDT [facility] End: 10-29-2021 Covid-19/Influenza Order Algorithm : COVID-19 Lab Test Only (OP in UTM) Dr. Digna Enriquez [phone] Covid-19/Influenza Order Algorithm : COVID-19 Lab Test Only (OP in UTM) Dr. Digna Enriquez [phone] Microbiology Routine Covid-19 1 Occurrences starting 10/29/2020 until 10/29/2021 [facility] Comment on above: 1 Occurrences starting 10/29/2020 until 10/29/2021 End: 11-05-2021 Covid-19/Influenza Order Algorithm : COVID-19 Lab Test Only (OP in UTM) Dr. Digna Enriquez [phone] Covid-19/Influenza Order Algorithm : COVID-19 Lab Test Only (OP in UTM) Dr. Digna Enriquez [phone] Microbiology Routine Contact with or exposure to viral disease 1 Occurrences starting 11/05/2020 until 11/05/2021 [facility] Comment on above: 1 Occurrences starting 11/05/2020 until 11/05/2021 End: 08-22-2020 CT angiography of thorax CT Angiogram Chest Imaging Routine MCGOWAN (dyspnea on exertion) 1 Occurrences starting 08/22/2019 until 08/22/2020 [facility] Comment on above: 1 Occurrences starting 08/22/2019 until 08/22/2020 CYTOLOGY REQUEST CYTOLOGY REQUES T Cytology Routine Other microscopic hematuria Urinary frequency Ordered: 10/01/2022 [facility] Comment on above: Ordered: 10/01/2022 End: 04-23-2023 Diabetes tracking panel HEMOGLOBIN A1C Lab Routine Hepatic cirrhosis, unspecified hepatic cirrhosis type, unspecified whether ascites present (HCC) Abdominal pain, unspecified abdominal location Abnormal finding of blood chemistry, unspecified 1 Occurrences starting 04/23/2022 until 04/23/2023 [facility] Comment on above: 1 Occurrences starting 04/23/2022 until 04/23/2023 Diabetes tracking panel HEMOGLOB IN A1C Lab Routine Hepatic cirrhosis, unspecified hepatic cirrhosis type, unspecified whether ascites present (HCC) Abdominal pain, unspecified abdominal location Abnormal finding of blood chemistry, unspecified 04/23/2022 12:48 PM EDT [facility] End: 08-22-2020 Echocardiography Echocardiogram complete Echocardiography Routine MCGOWAN (dyspnea on exertion) 1 Occurrences starting 08/22/2019 until 08/22/2020 [facility] Comment on above: 1 Occurrences starting 08/22/2019 until 08/22/2020 ESOPHAGOGASTRODUODEN OSCOPY AND COLONOSCOPY, GENERAL ANESTHESIA ESOPHAGOGASTRODUODENOSCOPY AND COLONOSCOPY, GENERAL ANESTHESIA Routine scheduled Rectal bleeding Change in bowel habits RUQ pain Esophageal dysphagia [facility] End: 05-25-2023 HCV RNA KRANTHI QUAL RFX TO QUANT HCV RNA KRANTHI QUAL RFX TO QUANT Lab Routine One Time for 1 Occurrences starting 05/25/2023 until 05/25/2023 [facility] Comment on above: One Time for 1 Occurrences starting 12/2022 until 05/25/2023 HCV RNA KRANTHI QUAL RFX TO QUANT HC V RNA KRANTHI QUAL RFX TO QUANT Lab Today 05/25/2023 5:00 AM EDT [facility] End: 04-23-2023 Hepatic function panel HEPATIC FUNCTION PANEL Lab Routine Hepatic cirrhosis, unspecified hepatic cirrhosis type, unspecified whether ascites present (HCC) Abdominal pain, unspecified abdominal location 1 Occurrences starting 04/23/2022 until 04/23/2023 [facility] Comment on above: 1 Occurrences starting 04/23/2022 until 04/23/2023 Hepatic function panel HEPATIC F UNCTION PANEL Lab Routine Hepatic cirrhosis, unspecified hepatic cirrhosis type, unspecified whether ascites present (HCC) Abdominal pain, unspecified abdominal location 04/23/2022 12:48 PM EDT [facility] Hepatitis A virus Ig M Ab [Presence] in Serum or Plasma by Immunoassay HEPATITIS A IGM AB Lab Today 01/30/2022 5:36 AM EDT [facility] End: 04-23-2023 Lipid 1996 panel - Serum or Plasma FULL LIPID PROFILE Lab Routine Hepatic cirrhosis, unspecified hepatic cirrhosis type, unspecified whether ascites present (HCC) Abdominal pain, unspecified abdominal location Abnormal findings on diagnostic imaging of other parts of digestive tract 1 Occurrences starting 04/23/2022 until 04/23/2023 [facility] Comment on above: 1 Occurrences starting 04/23/2022 until 04/23/2023 Lipid 1996 panel - S jina or Plasma FULL LIPID PROFILE Lab Routine Hepatic cirrhosis, unspecified hepatic cirrhosis type, unspecified whether ascites present (HCC) Abdominal pain, unspecified abdominal location Abnormal findings on diagnostic imaging of other parts of digestive tract 04/23/2022 12:48 PM EDT [facility] Price post-voiding re sidual urine&/bladder cap GA PRICE,POST-VOID RES,US,NON-IMAGING GA Charge Routine Other microscopic hematuria Urinary frequency Ordered: 10/01/2022 [facility] Comment on above: Ordered: 10/01/2022 End: 04-23-2023 Prothrombin time PROTHROMBIN TIME AND INR Lab Routine Hepatic cirrhosis, unspecified hepatic cirrhosis type, unspecified whether ascites present (HCC) Abdominal pain, unspecified abdominal location 1 Occurrences starting 04/23/2022 until 04/23/2023 [facility] Comment on above: 1 Occurrences starting 04/23/2022 until 04/23/2023 Prothrombin time PROTHROMBIN RYAN E AND INR Lab Routine Hepatic cirrhosis, unspecified hepatic cirrhosis type, unspecified whether ascites present (HCC) Abdominal pain, unspecified abdominal location 04/23/2022 12:48 PM EDT [facility] Radiography for bone length studies XR BONE LENGTH STUDY Imaging Routine Left knee pain, unspecified chronicity 08/19/2023 1:09 PM EST [facility] End: 05-23-2023 RENIN RENIN Lab Routine One Time Morning Lab for 1 Occurrences starting 05/23/2023 until 05/23/2023 [facility] Comment on above: One Time Morning Lab for 1 Occurrences s tarting 05/23/2023 until 05/23/2023 RENIN RENIN Lab Today 05/23/2023 5:25 AM EDT [facility] Standard ECG ECG ECG STAT 05/2022 4:02 PM EDT [facility] Work Phone: Standard ECG ECG ECG STAT 09/2022 4:39 PM EDT [facility] End: 08-11-2022 Surgical pathology procedure SURGICAL GI ANATOMIC PATHOLOGY Anatomic Pathology Routine RUQ pain Change in bowel habits Rectal bleeding Cirrhosis of liver without ascites, unspecified hepatic cirrhosis type (HCC) History of colonic polyps Esophageal dysphagia Grade I hemorrhoids Adenomatous polyp of sigmoid colon One time for 1 Occurrences starting 08/11/2022 until 08/11/2022 [facility] Work Phone: Comment on above: One time for 1 Occurrences starting 07/23 until 08/11/2022 End: 04-03-2021 US Upper Extremity Non Vascular Limited Right US Upper Extremity Non Vascular Limited Right Imaging Routine Lump of skin of upper extremity, right Once for 1 Occurrences starting 04/03/2021 until 04/03/2021 [facility] Comment on above: Once for 1 Occurrences starting 04/03/20 until 04/03/2021 US Upper Extremity N on Vascular Limited Right US Upper Extremity Non Vascular Limited Right Imaging Routine Lump of skin of upper extremity, right 04/03/2021 5:45 PM EDT [facility] XR Knee - left 4 Views XR KNEE L EFT 4+ VIEWS Imaging Routine Left knee pain, unspecified chronicity 08/19/2023 1:09 PM [facility] Work Phone: Immunizations Immunization Date Immunization Notes Care Provider Fa [facility] 02-02-2024 tetanus toxoid, redu elaine diphtheria toxoid, and acellular pertussis vaccine, adsorbed Phe 1 [facility] 05-22-2023 influenza, injectabl e, quadrivalent, preservative free Lupillo Ocampo MD Work Phone: [facility] 05-29-2022 influenza, injectabl e, quadrivalent, preservative free Pse Anesthesia [facility] 06-14-2021 influenza, injectabl e, quadrivalent, preservative free Lupillo Ocampo MD Work Phone: [facility] 06-14-2021 influenza virus vaccine, unspecified formulation Jaime ROMERO Work Phone: [facility] 10-07-2020 hepatitis A and hepatitis B vaccine Lupillo Ocampo MD Work Phone: [facility] 10-07-2020 zoster vaccine recombinant Lupillo Ocampo MD Work Phone: [facility] 06-21-2020 influenza, injectabl e, quadrivalent, preservative free Lupillo Ocampo MD Work Phone: [facility] 06-21-2020 zoster vaccine recombinant Lupillo Ocampo MD Work Phone: [facility] 02-15-2020 hepatitis A and hepatitis B vaccine Lupillo Ocampo MD Work Phone: [facility] 08-22-2019 hepatitis A and hepatitis B vaccine Lupillo Ocampo MD Work Phone: [facility] 08-01-2019 Influenza, injectabl e, Madin Marlee Canine Kidney, preservative free, quadrivalent Lupillo Ocampo MD Work Phone: [facility] 07-16-2016 influenza, injectabl e, quadrivalent, contains preservative Av Bertrand MD Work Phone: [facility] 07-16-2016 influenza, injectabl e, quadrivalent, preservative free Lupillo Ocampo MD Work Phone: [facility] [facility] 07-25-2015 influenza, injectabl e, quadrivalent, preservative free Lupillo Ocampo MD Work Phone: [facility] Work Phone: 05-30-2015 hepatitis A vaccine, adult dosage Lupillo Ocampo MD Work Phone: [facility] 07-04-2014 influenza, seasonal, injectable, preservative free Lupillo Ocampo MD Work Phone: [facility] 07-04-2014 pneumococcal polysaccharide vaccine, 23 valent Lupillo Ocampo MD Work Phone: [facility] 09-23-2012 influenza virus vaccine, unspecified formulation Lupillo Ocampo MD Work Phone: [facility] 09-08-2007 influenza virus vaccine, unspecified formulation Lupillo Ocampo MD Work Phone: [facility] Work Phone: 09-08-2007 pneumococcal polysaccharide vaccine, 23 valent Lupillo Ocampo MD Work Phone: [facility] 07-22-2006 hepatitis A vaccine, adult dosage Lupillo Ocampo MD Work Phone: [facility] 07-22-2006 influenza virus vaccine, unspecified formulation Lupillo Ocampo MD Work Phone: [facility] 09-21-1998 pneumococcal polysaccharide vaccine, 23 valent Lupillo Ocampo MD Work Phone: [facility] Payers Date Payer Category Payer Private Health Insurance [facility] DUAL COMPLETE [facility] DUAL COMPLETE [id number] 2023-Present [address] [id number] [place] [address] [id number] 2021 Medicare [id number] 2021 Medicare [id number] 2021 Medicaid [id number] 2019 Medicaid [facility] MEDICAID [employer] MEDICAID [id number] 2019-Present [id number] [facility] xxxxxxxxxxxx 2018-Present xxxxxxxxxxxx [id number] .[id number] 2015 Medicaid [id number]. 1.13.385.2 .7.3.634346.315 2014 Medicaid xxxxxxxxxxx 2.16.840.1.607099.3.249.1 3 2014 Unknown [id number] 1960 Unknown [id number] 2.16.840.1.804169.3.579.2 .900 1961 Unknown [id number] 2.16.840.1.531582.3.579.2 .594 1961 Unknown [id number] 2.16.840.1.138562.3.579.2 .594 1961 Unknown [id number] 2.16.840.1.987445.3.579.2 .594 1961 Unknown [id number] 2.16.840.1.632225.3.579.2 .594 1961 Unknown [id number] 2.16.840.1.442860.3.579.2 .594 1961 Unknown [id number] 2.16.840.1.089004.3.579.2 .594 1961 Unknown [id number] 2.16.840.1.966840.3.579.2 .594 1961 Unknown [id number] 2.16.840.1.135225.3.579.2 .594 1961 Unknown [id number] 2.16.840.1.261028.3.579.2 .594 1961 Unknown [id number] 2.16.840.1.415024.3.579.2 .594 1961 Unknown [id number] 2.16.840.1.821119.3.579.2 .594 1961 Unknown [id number] 2.16.840.1.898480.3.579.2 .594 1961 Unknown [id number] 2.16.840.1.995270.3.579.2 .594 1961 Unknown [id number] 2.16.840.1.534782.3.579.2 .594 1961 Unknown [id number] 2.16.840.1.033493.3.579.2 .902 1961 Unknown [id number] 2.16.840.1.078647.3.579.2 .902 1961 Unknown [id number] 2.16.840.1.103321.3.579.2 .903 1961 Unknown [id number] 2.16.840.1.096622.3.579.2 .983 1961 Unknown [id number] 2.16.840.1.393074.3.579.2 .983 1961 Unknown [id number] 2.16.840.1.329040.3.579.2 .983 1961 Unknown [id number] 2.16.840.1.848646.3.579.2 .983 1961 Unknown [id number] 2.16.840.1.480012.3.579.2 .983 1961 Unknown [id number] 2.16.840.1.593101.3.579.2 .732 1961 Unknown [id number] 2.16.840.1.245159.3.579.2 .732 1961 Unknown [id number] 2.16.840.1.203583.3.579.2 .732 1961 Unknown [id number] 2.16.840.1.982955.3.579.2 .732 1961 Unknown [id number] 2.16.840.1.878435.3.579.2 .1245 1961 Unknown [id number] 2.16.840.1.929807.3.579.2 .1244 1961 Unknown [id number] 2.16.840.1.979116.3.579.2 .1243 1961 Unknown [id number] 2.16.840.1.268868.3.579.2 .903 1961 Unknown [id number] 2.16.840.1.237505.3.579.2 .903 1961 Unknown [id number] 2.16.840.1.648475.3.579.2 .903 Unknown [id number] Unknown [id number] Social History Date Type Detail Facility Start: 05-30-2016 End: 02-26-2024 Tobacco smoking status NHIS Former smoker [facility] Start: 1960 Sex Assigned At Not on file [facility] Start: 06-23-2019 End: 07-28-2019 Alcohol intake Lifetime non-drinker (finding) [facility] Start: 06-23-2019 End: 08-06-2022 History SDOH Alcohol Frequency 1 [facility] Start: 06-23-2019 End: 11-05-2022 Tobacco Comment quit 4 years ago [facility] Start: 11-01-2019 End: 02-26-2024 Tobacco use and exposure Never used [facility] Start: 01-17-2022 End: 02-26-2024 Exposure to SARS-CoV-2 (event) Not sure [facility] Start: 11-14-2020 End: 02-26-2024 Alcohol intake Ex-drinker (finding) [facility] Start: 11-14-2020 Alcohol Comment quit drinking 5 plus years ago [facility] Start: 02-18-1985 End: 09-21-2018 History of tobacco use Current smoker [facility] Start: 02-18-1985 End: 09-21-2018 History of tobacco use Cigarette Smoker [facility] Start: 08-07-2015 End: 02-26-2024 Cigarettes smoked current (pack per day) - Reported 0.3 [facility] Start: 01-27-2022 End: 01-27-2024 Alcohol intake Current drinker of alcohol (finding) [facility] Start: 01-27-2022 History SDOH Alcohol Comment occasionally [facility] Start: 1960 Sex Assigned At Female [facility] Start: 08-06-2022 History SDOH Social Connections Phone 3 [facility] Start: 08-06-2022 History SDOH Social Connections Get Together 2 [facility] Start: 08-06-2022 History SDOH Social Connections Living 4 [facility] Start: 08-06-2022 History SDOH Physical Activity DPW 0 [facility] Start: 08-06-2022 History SDOH Stress 5 [facility] Start: 08-06-2022 Education 14 [facility] Start: 11-28-2020 End: 02-26-2024 Alcohol Use Disorder Identification Test - Consumption [AUDIT-C] [facility] How often to you hav e a drink containing alcohol? Never [facility] Average Number of Drinks Not [facility] file [facility] Start: 11-05-2022 Alcohol Comment Occasionally [facility] Start: 06-20-2019 Gender identity Identifies as female gender (finding) [facility] Start: 06-20-2019 Sexual orientation Heterosexual (finding) [facility] Start: 05-01-2023 Alcohol Comment LAST DRINK WAS 19304/30/23 [employer] [facility] Start: 04-24-2022 Sexual orientation Choose not to [...] Identifier Dates Mesh Progrip 20 X15cm - [id number] Start: 07-16-2016 Goals Date Patient Goal [...] we will see her back after completion [facility] Work Phone: 02-26-2024 Evaluation + Plan note Associated Problem(s): Current moderate episode of major depressive disorder without prior episode (Multi) -We discussed seeing a psychiatrist for depression and I will let her think about it and she will let me know next time when she comes back for a follow-up [facility] Work Phone: 02-26-2024 Evaluation + Plan note Associated Problem(s): Hepatic cirrhosis (Multi) -She will continue to follow with her mastic floor layer Dr. Nargis Carter at [facility] Work Phone: 02-26-2024 Miscellaneous Notes Associated Problem(s): [...] -She will continue to follow with her mastic floor layer Dr. Nargis Carter at [facility] Associated Problem(s): Vitamin D deficiency [...] normal at 177 documented in this encounter [facility] Work Phone: 02-26-2024 Evaluation + Plan note Associated Problem(s): Vitamin D deficiency -Her last vitamin D level was only 21 so we will check it again and talk about vitamin D supplementation [facility] Work Phone: 02-26-2024 Evaluation + Plan note Associated Problem(s): Hyperglycemia -She has had a recent blood sugar determination which was at 115 so I will be checking a hemoglobin A1c [facility] Work Phone: 02-26-2024 Evaluation + Plan note Associated Problem(s): Disorder involving thrombocytopenia (CMS-HCC) -Her last CBC was performed on 01/27/2024 and her platelets were normal at 177 [facility] Work Phone: 02-26-2024 History of Present illness Narrative Subjective Patient ID: Micheline Fox is a 63 y.o. female who presents for [facility]. HPI She is here today to [...] from cirrhosis and she does see a mastic floor layer, at [facility]. She states that she has [...] -She will continue to follow with her mastic floor layer Dr. Nargis Carter at [facility] Disorder involving thrombocytopenia (CMS-HCC) - [...] Eduardo Ahmadi DO documented in this encounter [facility] Work Phone: 02-26-2024 Instructions Eduardo Ahmadi DO [...] referred to psychiatry documented in this encounter [facility] Work Phone: 02-19-2024 Procedure note Associated Ord er(s): LIVER ELASTOGRAPHY Images from the original note were not included. Velocity Controlled Transient Elastography (Fibroscan) Diesel Machinist: Nikhil Lawson Attending: Jaime Carter APRN-CNP Patient was identified via name and . Micheline FOX presents to endoscopy suite for VCTE. Referring Provider: HEATHER Johnson Diagnosis: Hepatic cirrhosis, unspecified hepatic cirrhosis type (HCC) (Primary Diagnosis) [[id number]] Fatty liver Two Pt identifiers where confirmed. [...] to hepatology. Interpreting Provider: Jaime Carter APRN-CNP [facility] 02-19-2024 Procedure note Associated Ord er(s): LIVER ELASTOGRAPHY Images from the original note were not included. Velocity Controlled Transient Elastography (Fibroscan) Diesel Machinist: Nikhil Lawson Attending: Jaime Carter APRN-CNP Patient was identified via name and . Micheline FOX presents to endoscopy suite for VCTE. Referring Provider: HEATHER Johnson Diagnosis: Hepatic cirrhosis, unspecified hepatic cirrhosis type (HCC) (Primary Diagnosis) [[id number]] Fatty liver Two Pt identifiers where confirmed. [...] Jaime Carter APRN-CNP documented in this encounter [facility] 02-01-2024 Note 8:40AM 02-01-2024 La te Addendum: SW received referral on Pt and unable to locate by phone. SW will send f/u letter to assist w/ services and resources. SW waiting to hear back from Pt within 30 days from referral. FLORENCIO Olivares, PARCEL WRAPPER Outpatient SW [phone] [facility] 02-01-2024 History of Present illness Narrative 8:40AM 02-01-2024 Late Addendum: SW received referral on Pt and unable to locate by phone. SW will send f/u letter to assist w/ services and resources. SW waiting to hear back from Pt within 30 days from referral. FLORENCIO Olivares, PARCEL WRAPPER Outpatient SW [phone] Pt's risk score is 76%. SW received referral for Pt. SW called and left message. SW waiting to hear back from Pt. SW will continue to assist Pt as needed. FLORENCIO Olivares, PARCEL WRAPPER Outpatient SW [phone]' documented in this encounter [facility] 01-28-2024 Note Pt's risk score is 7 6%. SW received referral for Pt. SW called and left message. SW waiting to hear back from Pt. SW will continue to assist Pt as needed. FLORENCIO Olivares, PARCEL WRAPPER Outpatient SW [phone]' [facility] 01-28-2024 History of Present illness Narrative Pt's risk score is 76%. SW received referral for Pt. SW called and left message. SW waiting to hear back from Pt. SW will continue to assist Pt as needed. Sage Momin, FLORENCIO, PARCEL WRAPPER Outpatient SW [phone]' documented in this encounter [facility] 01-27-2024 History of Present illness Narrative Images [...] MEDICINE SERVICE REQUEST SOCIAL WORK SERVICE REQUEST [facility] WEIGHT MANAGEMENT SERVICE REQUEST 1. Hepatic cirrhosis, [...] not reported separately) Referring/communicating with other health intensive care nurse - when not reported separately Charting in Epic Total length of time 60 (minutes) of the encounter and more than 50% was spent counseling the patient. Preventative: Follow with PCP regarding age related screening measures. Follow up: Follow up in about 6 months (around 07/29/2024) for in-person visit. Sincerely, HEATHER Johnson [facility] Division of Gastroenterology & Hepatology 01/27/24 2:52 PM GI clinic documented in this encounter [facility] 12-19-2023 Emergency department Note Patient educated on risks of leaving against medical advise. Patient verbalized understanding and stated that she would like to signs AMA paperwork. This RN obtained AMA paperwork and witness the patient sign it. AMA paperwork placed in medical records. [facility] 12-19-2023 Emergency department Note Patient educated on risks of leaving against medical advise. Patient verbalized understanding and stated that she would like to signs AMA paperwork. This RN obtained AMA paperwork and witness the patient sign it. AMA paperwork placed in medical records. This RN attempted to place IV x2 attempts. Both attempts unsuccessful. Provider and terra cotta roofer notified. documented in this encounter [facility] 12-19-2023 Emergency department Note This RN attempted to place IV x2 attempts. Both attempts unsuccessful. Provider and terra cotta roofer notified. [facility] 07-01-2023 History of Present illness Narrative Micheline [...] Procedure: COLONOSCOPY; Surgeon: Joe Colón MD; Location: [facility]; Service: Gastroenterology EGD N/A 07/29/2019 Procedure: ESOPHAGOGASTRODUODENOSCOPY; Surgeon: Joe Colón MD; [facility]; Service: Gastroenterology ESOPHAGOGASTRODUODENOSCOPY 11/13/2020 Isael Hall-OSLeandra GASTRIC BYPASS 1996 LEFT HEART CATH N/A 07/08/2019 Procedure: Left Heart Cath; Surgeon: Hari Acosta MD; Location: [facility]ENTAL [facility]IST[facility] INSTRU[facility]; Service: Cardiovascular HEEL SPUR RESECTION Right 11/14/2020 [...] On the lateral view there is a [id number] appearance in the medial compartment. Mild lateral [...] Ana Canales CNP documented in this encounter [facility] 05-26-2023 Miscellaneous Notes AVS/education given by RN; [...] See new orders. documented in this encounter [facility] 05-26-2023 Nurse Note AVS/education given by RN; all questions addressed and Pt stated understanding. Assessment unchanged and no complaints. Both IVs intact when removed per policy. Telemetry removed and returned. Patient dressed and waiting for ride at this time. [facility] 05-26-2023 History of Present illness Narrative Followed up with [facility], she confirms that they can accept for home health. Discharge orders faxed. Oxygen saturation 92% on room air at rest. Consulted with Victorino HODGE, patient did well with PT. Followed up with patient, she feels comfortable discharging home with home health. Cancelled referral to [facility]. Spoke with Yuki at [facility], they do not take patient's insurance and suggested calling home health. Spoke with Alma Delia at [facility] but she states that since patient's PCP is not through they can't accept. [place] [place] [facility] 05/26/23 1155 Time In/Out Time In 1155 [...] has assistane when entering/exiting home. Spoke with RECREATIONAL ASSISTANT Lee Adan and notified him aswell. Pt then completed B LE ther ex including marches, LAQs, hip abd, ankle pumps, and pillow squeezes x10 reps each. Pt remained sitting in bedside chair with LEs elevated and call light left within reach. Transfer Skill: Sit To Stand, Rehab Eval [place] (Sit-Stand Transfers) (SBA) Physical Assist/Nonphysical Assist: Sit/Stand 1 person assist Weight-Bearing Restrictions: Sit/Stand full weight-bearing Assistive Device For Transfer: Sit/Stand 2 wheeled walker Gait Skills, PT Eval Level of Marfa: Gait stand-by assist Gait Distance (100ft x2) Gait Analysis, PT Eval Gait Pattern Used swing-through gait Gait Deviations Identified (Gait) decreased gait speed;decreased gideon;decreased step length;decreased stride length Impairments Contributing To Gait Deviations decreased strength;other (see comments) (decreased endurance) Stair Negotiation [place]fa Level: Stair Negotiation stand-by assist Physical Assist: [...] at home. Spoke with Verona/jean carlos at [facility] who states they take her insurance and will review the referral. Referral faxed. DAILY PROGRESS NOTE Admit Date: 05/22/2023 Date of Evaluation: 1:15 AM [facility] LOS: 0 days Chief complaint: Hypertensive urgency [...] unreasonable. Will continue with supportive care. Await social human services assistants for assistance with disposition. Continue supportive care. See orders. I have reviewed gerard aspects of the assessments and plan with the SAMPLE DISTRIBUTOR and agree with documentation outlined in addition to my notations. Cristiano Bee MD 05/25/2023 This note was created with the assistance of [employer] Speech Dictation Software. While intending to generate [...] Home Management Skills needs assist (has a hotbed operator) General Pain Documentation (Adult, OB, Peds) Presence [...] Muscle Testing (MMT) Dominant Hand right Hand Show Host Or Hostess, Right moderate Hand Show Host Or Hostess, Left moderate Manual Muscle Testing Results (bilateral shoulder flexion 3-/5, 4-/5 distally) Bed Mobility Skill: Sit to Supine, Rehab Eval Level of Marfa: Sit/Supine minimum assist (75% patients effort) Physical Assist/Nonphysical Assist: Sit/Supine 1 person assist Bed Mobility Skill: Supine to Sit, Rehab Eval Level of Marfa: Supine/Sit stand-by assist Physical Assist/Nonphysical Assist: Supine/Sit 1 person assist Transfer Skill: Sit to Stand, Rehab Eval Level of Marfa: Sit/Stand contact guard Physical Assist/Nonphysical Assist: Sit/Stand 1 person assist Weight-Bearing Restrictions: Sit/Stand full weight-bearing Assistive Device for Transfer: Sit/Stand wheeled walker Lower Body Dressing Level of Marfa moderate assist (50% patients effort) Physical Assist/Nonphysical [...] for ADLs Therapist Information License # [id number] 1. Pt will complete LB dressing min [...] improve functional use of UE for ADLs call center consultant SW received a call from [facility], about [...] she has had a friend and a computer aide assist her but is requesting SNF for [...] to give answer today. Patient lives in [place] and is requesting 1-[facility], 2-[facility], and states does not have a preference after that. SISI spoke with Johnny [facility], who reports admissions is off today and he is not sure if they are in network. SISI spoke with Cindy, jean carlos at [facility], who reports facility is not in network with insurance but only 2 facilities in [place] that are in network are [facility] and [facility]. SISI called [facility], jean carlos not working today. SW to update [place] SW to continue working on SNF placement [...] Transfer Skill: Sit To Stand, Rehab Eval Marfa (Sit-Stand Transfers) supervision Gait Skills, PT Eval Level of Marfa: Gait stand-by assist Gait Distance 50 feet Gait Analysis, PT Eval Gait Pattern Used swing-through gait Gait Deviations Identified (Gait) decreased gideon;decreased gait speed;decreased heel strike;decreased step length;decreased stride length Impairments Contributing To Gait Deviations impaired balance;impaired postural control;decreased strength Stair Negotiation Mar[place] Level: Stair Negotiation not tested Plan of [...] stair negotiation Therapist Information License # [id number] 1. Pt will demonstrate a TUG < [...] record and noted. documented in this encounter [facility] 05-26-2023 Hospital course Narrative Images from the original note were not included. Discharge Summary Name: Micheline oFx Age: 63 y.o. Birthday: 1960 Admit Date: [...] as tolerated. Discharge Follow-up: Leticia Sylvester MD [address] [place], [place] [id number] Follow up in 1 week(s) Discharge Disposition: Patient will be discharged in stable condition to Home with [facility] Discharge Time: Including assessment, planning, and medication reconciliation was 15 minutes Lee Adan CNP completing Discharge Summary for attending physician. Please note Portions of this note utilized [employer] dictation software, please excuse any typographical or grammatical errors Associated attestation - Cristiano Bee MD - 05/26/2023 9:34 PM EDT Patient seen and examined independently on date of exam on 05/26/2023 with SAMPLE DISTRIBUTOR at bedside. Overnight there were no events [...] of the assessments and plan with the SAMPLE DISTRIBUTOR and agree with documentation outlined in addition to my notations. 40 minutes discharge time spent, inclusive of time documented by SAMPLE DISTRIBUTOR. Cristiano Bee MD 05/26/2023 This note was created with the assistance of [employer] Speech [employer]ictation Software. While intending to generate a document that actually reflects the content of the visit, the document can still have some errors including those of syntax and sound a like substitutions which may escape proof reading. In such instances, actual meaning can be extrapolated by contextual diversion. documented in this encounter [facility] 05-26-2023 Plan of care note Problem: Patient [...] discharge/transition of care. Outcome: Adequate for Discharge [facility] 05-26-2023 Nurse Note No changes noted from previous assessment. Patient ambulated with physical therapy and appeared to be doing very well. Patient denies any needs and is resting comfortably at this time. Will continue to monitor. [facility] 05-26-2023 Nurse Note Assessment unchanged from prior. Patient resting in bed, call light within reach, Bed alarm on, Patient denies any needs at this time. [facility] 05-26-2023 Nurse Note Pulse O2 was in mid 80s Put patient on 2L NC, New Pulse O2 94%, Assessment otherwise unchanged from prior. Patient resting in bed, call light within reach, Bed alarm on, Patient denies any needs at this time. [facility] 05-25-2023 Nurse Note No changes to previous assessment. [facility] 05-25-2023 Nurse Note No change in assessment. [facility] 05-25-2023 Nurse Note Social work [facility] aware of new consult. [facility] 05-25-2023 Nurse Note 2200: pt refusing to [...] on but only for a little bit. [facility] 05-25-2023 Plan of care note Problem: Patient [...] outcomes by discharge/transition of care. Outcome: Ongoing [facility] 05-25-2023 Nurse Note 2015- Patient assessed. See flowsheets for assessment details. 0015- No new changes from previous assessment unless noted in flow sheet. 0415 - Assessment unchanged with any exceptions noted in the flowsheet. Patient denies further needs and is left with call light and personals in reach. [facility] 05-24-2023 Nurse Note No new changes from previous assessment unless noted in flow sheet. [facility] 05-24-2023 Nurse Note No new changes from previous assessment unless noted in flow sheet. [facility] 05-24-2023 Nurse Note Patient wakes up and [...] support given- call light left in reach. [facility] 05-24-2023 Nurse Note Patient assessment remains unchanged. She has been sleeping, call light in reach. [facility] 05-24-2023 Nurse Note Patient resting quietly, wearing 2L O2. Sleeping between cares. Assessment is unchanged. BP appears improved as of this time. Call light within reach. [facility] [facility] 05-23-2023 Nurse Note Patient assessment is completed. She is still having a headache 03/30 and some nausea after eating her supper. Discussed medications and POC. PRN meds given. She denies further needs at this time, call light is left in reach. [facility] 05-23-2023 Nurse Note No new changes from previous assessment. [facility] 05-23-2023 History and physical note History and [...] 05/22/2023 YELLOW APPEARANCE, URINE 05/22/2023 CLEAR Specific [place], Urine 05/22/2023 1.020 PH URINE 05/22/2023 5.5 [...] Please note Portions of this note utilized [employer] dictation software, please excuse any typographical or [...] the MDM for this encounter. OBS admit. [facility] 05-23-2023 History and physical note History [...] Laterality: N/A; Surgeon: Isael Hall MD; Location: [facility] ENDOSCOPY REPAIR HERNIA VENTRAL OPEN W/ MESH N/A 07/16/2016 Laterality: N/A; Surgeon: Jake Hurtado MD; Location: [facility] MAIN OR HEART CATHETERIZATION Apr 2015 [...] 05/22/2023 YELLOW APPEARANCE, URINE 05/22/2023 CLEAR Specific [place], Urine 05/22/2023 1.020 PH URINE 05/22/2023 5.5 [...] Please note Portions of this note utilized [employer] dictation software, please excuse any typographical or [...] encounter. OBS admit. documented in this encounter [facility] 05-23-2023 Nurse Note No change in assessment noted. Patient remains drowsy in bed but vocalizing anxiety. T [facility] 05-23-2023 Nurse Note Patient more awake and ready for breakfast. Ordered by this RN per patient request. T [facility] 05-23-2023 Nurse Note Patient awake but drowsy, ambulated to bathroom x 1 assist. Urine specimen collected as ordered and sent to lab. Assisted back to bed and reconnected to monitor. T [facility] 05-23-2023 Nurse Note No change in assessment, Headache has subsided and is gone. T [facility] 05-23-2023 Nurse Note No change noted on assessment. [facility] 05-22-2023 Nurse Note Called Dedra Baker NP for orders regarding new admit. See new orders. [facility] 05-22-2023 Emergency department Note Patient transferred upstairs to ICU on continuous 02 and cardiac monitoring. Patient taken up with all belongings and in stable condition. Patient taken up with ECG, report sheet, and extra sticker [facility] 05-22-2023 Emergency department Note Patient transferred upstairs to ICU on continuous 02 and cardiac monitoring. Patient taken up with all belongings and in stable condition. Patient taken up with ECG, report sheet, and extra sticker Called Dr Adan for dr Dumont notifying him of Dr. Pimentel accepting pt. Bed assignment# [id number] Report to [address]EN Ledesma Dr. Dumont at [facility]. Emergency Room Note [facility] EMERGENCY DEPARTMENT Service Date:.05/22/23 PCP: Leticia Sylvester [...] No change in smell or taste. Patient's [place] automated prescription reporting System report was reviewed. [...] Laterality: N/A; Surgeon: Isael Hall MD; Location: [facility] ENDOSCOPY REPAIR HERNIA VENTRAL OPEN W/ MESH N/A 07/16/2016 Laterality: N/A; Surgeon: Jake Hurtado MD; Location: [facility] MAIN OR HEART CATHETERIZATION Apr 2015 [...] Sinus rhythm at 69 beats per minute. Jacobson is normal. GA interval is 176 milliseconds. QRS duration 78 [...] with this. I spoke to the nursing supervisor locomotive who is making arrangements for a bed Clinical Impression: 1. Hypertensive urgency 2. Acute intractable headache, unspecified headache type 3. Anxiety No follow-ups on file. New Prescriptions No medications on file Discontinued Medications No medications on file An After Visit Summary was printed and given to the patient with above information. . Jose Eduardo Dumont MD 05/22/23 1859 documented in this encounter [facility] 05-22-[address] Dr Adan for dr Dumont notifying him of Dr. Pimentel accepting pt. [facility] 05-22-2023 Emergency department Note Bed assignment# [id number] [facility] 05-22-2023 Emergency department Note Report to ARLEEN Ledesma [facility] 05-22-[address] Dumont at [facility] 05-22-2023 Physician Emergency department Note Emergency Room Note [facility] EMERGENCY DEPARTMENT Service Date:.05/22/23 PCP: Leticia Sylvester [...] No change in smell or taste. Patient's [place] automated prescription reporting System report was reviewed. [...] Laterality: N/A; Surgeon: Jake Hurtado MD; Location: [facility] MAIN OR HEART CATHETERIZATION Apr 2015 [...] Sinus rhythm at 69 beats per minute. Jacobson is normal. GA interval is 176 milliseconds. QRS duration 78 [...] with this. I spoke to the nursing supervisor locomotive who is making arrangements for a bed Clinical Impression: 1. Hypertensive urgency 2. Acute intractable headache, unspecified headache type 3. Anxiety No follow-ups on file. New Prescriptions No medications on file Discontinued Medications No medications on file An After Visit Summary was printed and given to the patient with above information. . Jose Eduardo Dumont MD 05/22/23 [id number] [facility] 04-17-2023 History of Present illness Narrative OFFICE CONSULTATION NOTE [facility] [address]) [facility] [address] [facility] [address] Physicians: Leticia Sylvester MD (Family); Leticia Syvlester MD (Referring) Assessment & Plan: 62 yo [...] Procedure: COLONOSCOPY; Surgeon: Joe Colón MD; [facility]; Service: Gastroenterology EGD N/A 07/29/2019 Procedure: ESOPHAGOGASTRODUODENOSCOPY; Surgeon: Joe Colón MD; [facility]; Service: Gastroenterology ESOPHAGOGASTRODUODENOSCOPY 11/13/2020 Isael K [facility]IC [facility]PASS 1997 LEFT HEART CATH N/A 07/08/2019 Procedure: Left Heart Cath; Surgeon: Hari Acosta MD; Location: DENTAL ASSISTANT INSTRUCTOR; Service: Cardiovascular HEEL SPUR RESECTION Right 11/14/2020 [...] Ishaan Raines MD documented in this encounter [facility] 04-17-2023 Instructions Avery Perkins MA - 04/17/2023 2:06 PM EDT How to contact your care team: Provider: MD Malcolm Ashley CNP Jill Bender, PA Nurse: Sofia Pineda RN To reschedule office appointments call scheduling [phone]. In case of an emergency please call 911. When in need of refills please call the phone number listed above. Please include medication name, pharmacy name and specify 30 or 90 day supply. Please check with your pharmacy within 24 hours of your request for refill. You must follow up as directed to continue current refills. Thank you! documented in this encounter [facility] 02-16-2023 Emergency department Note JAQUELIN Lebron at bedside. [facility] 02-16-2023 Emergency department Note JAQUELIN Lebron at bedside. Bed: EFT24 Expected date: Expected time: Means of arrival: Comments: EMS documented in this encounter [facility] 02-16-2023 Emergency department Note Bed: EFT24 Expected date: Expected time: Means of arrival: Comments: EMS [facility] 10-15-2022 History of Present illness Narrative Associated [...] was obtained. Does this procedure require a [place] Protocol? Yes. [place] Protocol is required. Urine was collected for [...] TRACE (A) 01/30/2022 documented in this encounter [facility] 10-15-2022 Procedure note Associated Ord er(s): GENERAL PROCEDURE error [facility] 10-15-2022 Procedure note Associated Ord er(s): GENERAL [...] trimethoprimdaily, appropriate use and side effects reviewed. [facility] 10-15-2022 Procedure note Associated Ord er(s): GENERAL [...] side effects reviewed. documented in this encounter [facility] 10-01-2022 History of Present illness Narrative HISTORY [...] Laterality: N/A; Surgeon: Isael Hall MD; Location: [facility] ENDOSCOPY REPAIR HERNIA VENTRAL OPEN W/ MESH N/A 07/16/2016 Laterality: N/A; Surgeon: Jake Hurtado MD; Location: [facility] MAIN OR HEART CATHETERIZATION Apr 2015 [...] within this encounter was likely aided with [employer], an electronic forest products gatherer device. Please excuse any grammatical errors or [...] TRACE (A) 01/30/2022 documented in this encounter [facility] 09-01-2022 Emergency department Note Pt alert, oriented, no signs of distress. Pt discharge instructions reviewed and work excuse handed to pt. Pt placed in wheelchair off unit, room air. Pt escorted by this RN to front entrance. [facility] 09-01-2022 Emergency department Note Pt alert, oriented, [...] the line was pulled. Emergency Department Report [facility] EMERGENCY DEPARTMENT Service Date:.09/01/22 PCP: Leticia Sylvester [...] Laterality: N/A; Surgeon: Isael Hall MD; Location: [facility] ENDOSCOPY REPAIR HERNIA VENTRAL OPEN W/ MESH N/A 07/16/2016 Laterality: N/A; Surgeon: Jake Hurtado MD; Location: [facility] MAIN OR HEART CATHETERIZATION Apr 2015 [...] Use Authorization (EUA) for the qualitative detection vhHWMV-VjQ-4 nucleic acid. INFLUENZA A AND B, PCR [...] Hsieh MD 09/01/221840 documented in this encounter [facility] 09-01-2022 Emergency department Note When medicating this pt for pain, pt refused both acetaminophen and ibuprofen stating I can take both of these medications at home. This RN stated that our concern for pain management that she was still in same 8/10 pain or worse with coming in. Pt still refusing medication. Work note given with discharge papers [facility] 09-01-2022 Emergency department Note This RN went [...] orders for medication and work note placed. [facility] 09-01-2022 Emergency department Note This RN [...] RN made aware of dissatisfaction with care. [facility] 09-01-2022 Emergency department Note Bedside report received from Petra BACON [facility] 09-01-2022 Emergency department Note Pt had an adverse reaction to the Toradol that was given. She stated that Her hand felt like it was on fire. The IV was pulled, medications were stopped and Provider was notified. Pt developed hives on her left hand and arm minutes after the line was pulled. [facility] 09-01-2022 Physician Emergency department Note Emergency Department Report [facility] EMERGENCY DEPARTMENT Service Date:.09/01/22 PCP: Leticia Sylvester [...] Use Authorization (EUA) for the qualitative detection duUCXZ-DzB-0 nucleic acid. INFLUENZA A AND B, PCR [...] above information. . Bao Hsieh MD 09/01/221840 [facility] 08-19-2022 History of Present illness Narrative Images from the original note were not included. Department of Gastroenterology GI Clinic Note PCP: Leticia Sylvester Referred by: Referring Provider: Self Patient Last GI Visit: Most recent visit in Gastroenterology was on 04/23/2022 with Eusebia Jones APRN-SAMPLE DISTRIBUTOR Documentation: Mode: Telephone Patient Patient Work Phone: Patient Cell Preferred phone: [phone] Consent: I confirmed patient understanding of the [...] the 08/19/22 encounter (Telemedicine) with Mathieson, Eusebia, CHIEF RADIOLOGIC TECHNOLOGIST-SAMPLE DISTRIBUTOR Medication Sig Dispense Refill esomeprazole (NexIUM) 40 [...] note was sent to PCP HEATHER Cox [id number] Division of Gastroenterology [facility] documented in this encounter [facility] 08-11-2022 Note Formatting of this n ote is different from the original. Addendum created 08/11/221329 by Lawrence Russell MD Clinical Note Signed [facility] 08-11-2022 Miscellaneous Notes Addendum created 08/11/221329 by [...] Jennifer Khoury MD Anesthesiologist: Lawrence Russell MD VAMPER: Kari Bonner APRN-MIMI ESOPHAGOGASTRODUODENOSCOPY AND COLONOSCOPY, GENERAL [...] received. JOAO Smith documented in this encounter [facility] 08-11-2022 Anesthesiology Postoperative evaluation and management note [...] taking her regular medications. Lawrence Russell MD [employer] Work Phone: 08-11-2022 Surgical operation note Anesthesia [...] problems, Endo (+) obesity ( BMI 47) dry can tender (+) post-menopausal, Neuro/Psych (+) depression, Cardiovascular (+) [...] Friends and Family: Once a week Attends Hoahaoism Services: Never Active Member of Clubs or [...] Lawrence Russell MD documented in this encounter [facility] 08-11-2022 Procedure anesthe kerwin Narrative Procedure Name [...] Dayna Houston RN documented in this encounter [id number] Hospital Discharge instructions* Discharge Instructions* Dayna Houston [...] F/U in GI clinic with Eusebia Jones [phone] Hygienic and special care needs: Your throat [...] not heard from your doctor, please call [phone] and leave a message with the clerical secretary. Literature: Colonic polyps/polypectomy Follow Up: Follow up with Primary Care Provider. If you have any questions or concerns call the nurse line at Leave a message including your name, medical record number or social security number, and a phone number where you can be reached. A nurse will return your call within 24 hours. For problems or concerns, call the [facility] Endoscopy Suite at , Thursday through Thursday 7:30 am -5:00 pm. 24 HOUR ADVICE LINE [phone] I acknowledge that I have read the above home-going instructions, have had the opportunity to ask questions and receive an explanation. I acknowledge that this is my signature and I have been given acopy of the instructions. Patient: Date Reviewing Nurse Date Dr Brody Physicians Name Patient/Caregiver * Attachments The following attachments cannot be sent through Care Everywhere. * Colon Polypectomy ([place]ian) documented in this [id number] Note* Anesthesia Transfer Of Care - Kari Bonner APRN-VAMPER - 08/11/2022 10:32 AM EST Images from [...] Jennifer Khoury MD Anesthesiologist: Lawrence Russell MD VAMPER: Kari Bonner APRN-CRNA ESOPHAGOGASTRODUODENOSCOPY AND COLONOSCOPY, GENERAL [...] of the report was received. JOAO Smith [employer] Work Phone: 1(296) 969-659611-21-2022 Miscellaneous Notes* OP Note - Jennifer Khoury MD - 08/11/2022 9:30 AM EST Micheline FOX 62 year old Surgical Contact Serial Number: [id number] Location: ENDO 02 Date: 08/11/2022 DEBARKER OPERATOR: Pj Casanova MD ATTENDING:Jennifer Khoury MD Procedure(s): [...] transillumination of right lower quadrant. Prep was [place] Bowel Prep Right Colon: Minor amount of residual staining, small fragments of stool and/or opaque liquid, [place] Bowel Prep Transverse Colon: Minor amount of residual staining, smallfragments of stool and/or opaque liquid, [place] Bowel Prep Left Colon:Minor amount of residual [...] showed internal hemorrhoids. RUQ pain (Primary Diagnosis) [374260] Change in bowel habits [905438] Rectal bleeding [553709] Cirrhosis of liver without ascites, unspecified hepatic cirrhosis type (HCC) [2266878] History of colonic polyps [101896] Esophageal dysphagia [936917] Grade I hemorrhoids [892935] Adenomatous polyp of sigmoid colon [2348788] YULIYA PATH SPECIMEN SENT: yes SPECIMEN: Esophagus, [...] were discussed with the patient and/or legal inbound customer service representative. The risks, benefits and alternatives were reviewed. Questions regarding anesthesia were answered. Patient and/or legal inbound customer service representative knows such anesthetics and procedures may be performed by Resident physicians, Certified Anesthesiologist Assistants, or Certified Nurse Anesthetists under the supervision of a physician. The patient /or the patient s legal representativeagree with the plan for anesthesia. Lawrence Russell MD documented in this [id number] Note* OP Note - Jennifer Khoury MD - 08/11/2022 9:30 AM EST Micheline FOX 62 year old Surgical Contact Serial Number: [id number] Location: ENDO 02 Date: 08/11/2022 DEBARKER OPERATOR: Pj Casanova MD ATTENDING:Jennifer Khoury MD Procedure(s): [...] transillumination of right lower quadrant. Prep was [place] Bowel Prep Right Colon: Minor amount of residual staining, small fragments of stool and/or opaque liquid, [place] Bowel Prep Transverse Colon: Minor amount of residual staining, smallfragments of stool and/or opaque liquid, [place] Bowel Prep Left Colon:Minor amount of residual [...] showed internal hemorrhoids. RUQ pain (Primary Diagnosis) [626508] Change in bowel habits [160190] Rectal bleeding [048949] Cirrhosis of liver without ascites, unspecified hepatic cirrhosis type (HCC) [9274465] History of colonic polyps [221182] Esophageal dysphagia [021455] Grade I hemorrhoids [107956] Adenomatous polyp of sigmoid colon [7420606] YULIYA PATH SPECIMEN SENT: yes SPECIMEN: Esophagus, [...] Khoury MD Department of Gastroenterology & Hepatology [employer] Work Phone: 1(971) 704-224011-21-2022 Anesthesiology Preoperative evaluation and management note* Anesthesia Preprocedure Evaluation - Lawrence Russell MD - 08/11/2022 8:52 AM EST ASA: 3 No history of anesthetic complications NPO status: Greater than 8 hours Past Medical History and Review of Systems Pulmonary (+) sleep apnea, Dental ROS (+) teeth problems, Endo (+) obesity ( BMI 47) dry can tender (+) post-menopausal, Neuro/Psych (+) depression, Cardiovascular (+) [...] Friends and Family: Once a week Attends Hoahaoism Services: Never Active Member of Clubs or [...] G Potassium] Penicillins Hives Lawrence Russell MD [facility] [id number] Note* Anesthesia Attestation - Lawrence Russell MD - 08/11/2022 8:51 AM EST Anesthesia Attestation ATTESTATION OF INFORMED CONSENT FOR ANESTHESIA Anesthesia options were discussed with the patient and/or legal inbound customer service representative. The risks, benefits and alternatives were reviewed. Questions regarding anesthesia were answered. Patient and/or legal inbound customer service representative knows such anesthetics and procedures may be performed by Resident physicians, Certified Anesthesiologist Assistants, or Certified Nurse Anesthetists under the supervision of a physician. The patient /or the patient s legal representativeagree with the plan for anesthesia. Lawrence Russell MD [employer] Work Phone: 1(431) 368-283111-18-2022 History of Present illness Narrative* Lisa Santana RN - 08/08/2022 4:21 PM EST .Patient was identified by name and date of . Lisa Santana RN documented in this [id number] Instructions* Patient Instructions* Giacomo Mc MD - [...] surgery. Contact the Pre-Surgical Evaluation department at [phone] or your surgeon's office with any questions. documented in this [id number] Note* PSE Appt H&P - Giacomo cM MD - 07/28/2022 1:40 PM EST Images from the original note were not included. Presurgical Evaluation Micheline FOX, [id number] 62 year old Female 07/28/2022 Height: 5' [...] apnea? Yes Diagnosed with KELLY, done in [facility] [place]. Moderate KELLY. Patient was prescribed CPAP but [...] signature: Giacomo Mc MD 1:47 PM 07/28/2022 [employer] Work Phone: 1(684) 458-245911-07-2022 Note* PSE Appt H&P - Giacomo Mc MD - 07/28/2022 1:40 PM EST Images from the original note were not included. Presurgical Evaluation Micheline FOX, [id number] 62 year old Female 07/28/2022 Height: 5' [...] apnea? Yes Diagnosed with KELLY, done in [facility] [place]. Moderate KELLY. Patient was prescribed CPAP but [...] signature: Giacomo Mc MD 1:47 PM 07/28/2022 [employer] Work Phone: 1(393) 997-872811-07-2022 Note* PSE Appt H&P - Giacomo Mc MD - 07/28/2022 1:40 PM EST Images from the original note were not included. Presurgical Evaluation Micheline FOX, [id number] 62 year old Female 07/28/2022 Height: 5' [...] apnea? Yes Diagnosed with KELLY, done in [facility] [place]. Moderate KELLY. Patient was prescribed CPAP but [...] signature: Giacomo Mc MD 1:47 PM 07/28/2022 [employer] Work Phone: 1(702) 741-860411-07-2022 Miscellaneous Notes* PSE Appt H&P - Giacomo Mc MD - 07/28/2022 1:40 PM EST Images from the original note were not included. Presurgical Evaluation Micheline Bennett EVIN, [id number] 62 year old Female 07/28/2022 Height: 5' [...] apnea? Yes Diagnosed with KELLY, done in [facility] [place]. Moderate KELLY. Patient was prescribed CPAP but [...] MD 1:47 PM 07/28/2022 documented in this [id number] Instructions* Patient Instructions* Eusebia Jones, CHIEF RADIOLOGIC TECHNOLOGIST-SAMPLE DISTRIBUTOR - 04/23/2022 2:15 PM EDT COLONOSCOPY COLYTE [...] you for the next 24 hours. Location: [facility] Endoscopy Suite [address]: Park [...] by taking the F elevators OR Use [employer] Park[employer] located at the Emergency Department entrance off [address], go through the Emergency Department entrance then immediately turn left and follow the signs to the Endoscopy Suite on the2nd floor by taking the F elevators Please call M-F 7:00am-6:00pm for any pre-procedural questions. After hours, please call to speak to the [facility] Vykuw-sy-jdke. If you need to cancel this appointment, please call , at least 48 hours before your appointment time. PLEASE BRING IN YOUR INSURANCE CARD AND MEDICATIONS OR LIST OF CURRENT MEDICATIONS. PLEASE LEAVE JEWELRY AT HOME AND DO NOT WEAR HEAVY FRAGRANCE OR NAIL LUXEMBOURGISH WE MAKE EVERY ATTEMPT TO MAINTAIN OUR SCHEDULE; HOWEVER, IT IS NOT ALWAYS POSSIBLE. SOME PROCEDURESMAY TAKE LONGER THAN OTHERS AND OUR CASES ARE SCHEDULED TO FOLLOW ONE ANOTHER. WE APOLOGIZE FOR ANYDELAYS. documented in this [id number] History of Present illness Narrative* Eusebia Jones APRN-CNP - 04/23/2022 2:00 PM EDT Images from the original note were not included. Department of Gastroenterology GI Clinic Note PCP: Leticia Sylvester Referred by: Referring Provider: Self Patient Last GI Visit: Most recent visit in Gastroenterology was on 12/30/2011 with Giuliana Amado RN Chief Complaint: Chief Complaint Patient presents with GI FOLLOW UP HPI: Micheilne FOX is a 61 year old female [...] note was sent to PCP HEATHER Cox [id number] Division of Gastroenterology [facility] documented in this [id number] History of Present illness Narrative* Jaime Carter [...] telephone visit (telehealth). Sincerely, Jaime Carter APRN-[facility] Division of Gastroenterology & Hepatology 04/23/22 12:03 PM GI clinic documented in this [id number] History of Present illness Narrative* Yessi Patel RN - 01/31/2022 10:57 AM EDT Reviewed discharge instructions, medications and follow up appointment with patient. IV and tele removed, patient tolerated. Patient denies any other needs or questions. * HEATHER Shin - 01/29/2022 12:50 PM EDT DAILY PROGRESS NOTE Admit Date: 01/27/2022 Date of Evaluation: :50 PM [facility] LOS: 0 days Chief complaint: Chest pain [...] and examined. All testing reviewed. Discussed with SAMPLE DISTRIBUTOR and agree with A/P. When I rounded [...] Use Authorization (EUA) for the qualitative detection osUAKI-TzQ-2 nucleic acid. TROPONIN I, HIGH SENSITIVITY Result [...] YELLOW YELLOW APPEARANCE, URINE CLEAR CLEAR Specific [place], Urine 1.025 1.010 - 1.025 PH URINE [...] Laterality: N/A; Surgeon: Isael Hall MD; Location: [facility] ENDOSCOPY REPAIR HERNIA VENTRAL OPEN W/ MESH N/A 07/16/2016 Laterality: N/A; Surgeon: Jake Hurtado MD; Location: [facility] MAIN OR HEART CATHETERIZATION Apr 2015 [...] Supine to Sit, Rehab Eval Level of [place]: Supine/Sit independent Transfer Skill: Sit To Stand, Rehab Eval [place] (Sit-Stand Transfers) independent Gait Skills, PT Eval Level of Marfa: Gait independent Gait Distance 100 feet Gait [...] is a 61 y.o. female admitted to [facility] for: 1. Hypokalemia 2. Chest pain, unspecified type Nutrition Assessment Subjective Assessment/comments: Pt presents to ER with c/o CP, tachycardia, palpitations, high blood pressure, shakiness and weakness. Pt also c/o nausea, headache, dizziness, suspects dehydration and reports that she hasn't been eating well. Found with hypokalemia. Pt has remote hx of RYGB in [address]and is [facility]'s outpatient weight management program; last visit on [...] oz) 09/18/20 (!) 140.6 kg (310 lb) Hardy body weight: 57 kg (125 lb 10.6 [...] 01/28/2022 RBC 4.06 01/28/2022 B12 320 02/20/2017 [id number] 18.3 (L) 01/16/2021 FOLATE 13.07 02/20/2017 PMH [...] Information Source Name Micheline Fox Contact Information Sash Finisher/SW Added to Care Team Yes This Plunger Shovel Operator is Primary Sash Finisher/SW Yes Sash Finisher Name Kay Yadav RN Case Manager's Social Work Contact Name Erma Lopez Living Environment Lives With alone Living Arrangements house Primary Care Provided By self Support System Immediate family Employment/Financial Employed? Yes Employment/Financial Concerns no Source Of Income pension/residential Financial Concerns none Food Insecurity In the [...] for any discharge needs. [facility] Nursing Notes - Kerrie Pacheco RN - 01/31/2022 4:34 AM EDT Patient unchanged from previous assessment. Call light and personal items within reach. Patient denies any further needs at this time. [facility] Miscellaneous Notes* Nursing Notes - Kerrie Pacheco [...] to stay the night at this time. RECREATIONAL ASSISTANT notified. Orders for ct head and toxicology placed. * Nursing Notes - Eva Hamilton RN - 01/30/2022 5:07 PM EDT Notified Foreign RECREATIONAL ASSISTANT of patients continued drowsiness and difficulty walking. Patient cannot walk down hallway without using wall railings for support. Patient states that she is absolutely fine to driveand is adamant about doing so. RECREATIONAL ASSISTANT states to allow patient to stay overnight unless patient opts to leave AMA. * Nursing Notes - Eva Hamilton RN - 01/30/2022 3:58 PM EDT Patient is extremely drowsy, sways while walking, and does not appear capable of providing her own transportation at this time. States that she does not have anyone else she can call. Attempted to notify RECREATIONAL ASSISTANT. * Nursing Notes - Eva Hamilton RN [...] aware . Dr Alexander was notified by return clerk earlier this am. * Plan of [...] AM EDT Transferred from second floor to [facility]. Denies complaints * Nursing Notes - Melvin [...] and ok'd. See MAR. [facility]* Nursing Notes - Kerrie Pacheco RN [...] denies any further needs at this time. [facility]05-12-2022 Note* Nursing Notes - Eva Hamilton RN - 01/30/2022 5:18 PM EDT Pt elects to stay the night at this time. RECREATIONAL ASSISTANT notified. Orders for ct head and toxicology placed. [facility]-12-20[facility] Note* Nursing Notes - Eva Hamilton RN - 01/30/2022 5:07 PM EDT Notified Foreign RECREATIONAL ASSISTANT of patients continued drowsiness and difficulty walking. Patient cannot walk down hallway without using wall railings for support. Patient states that she is absolutely fine to driveand is adamant about doing so. RECREATIONAL ASSISTANT states to allow patient to stay overnight unless patient opts to leave AMA. [facility]05-12-2022 Note* Nursing Notes - Eva Hamilton RN - 01/30/2022 3:58 PM EDT Patient is extremely drowsy, sways while walking, and does not appear capable of providing her own transportation at this time. States that she does not have anyone else she can call. Attempted to notify RECREATIONAL ASSISTANT. [facility]05-12-2022 Note* Nursing Notes - Eva Hamilton RN - 01/30/2022 3:41 PM EDT Physical assessment unchanged since previous assessment from this RN with exceptions noted in flowsheets. Patient denies discomfort/pain. Patient is resting in bed with call light in reach and wheelslocked. Safety is maintained. [facility]05-12-2022 Note* Nursing Notes - Eva Hamilton RN - 01/30/2022 3:32 PM EDT Pt states she wants to walk the avery a bit before departing. Patient up walking hallway with minimal assistance. [facility]-12-[facility] Note* Nursing Notes - Eva Hamilton [...] own transportation. Patient verbalizes understanding of instructions. [facility]-12-[facility] Note* Nursing Notes - Eva Hamilton RN - 01/30/2022 12:09 PM EDT Physical assessment unchanged since previous assessment from this RN with exceptions noted in flowsheets. Patient denies discomfort/konrad. Patient is resting in bed with call light in reach and wheels locked. Safety is maintained. [facility]05-12-2022 Hospital course Narrative* Flip Campos APRN- ORTIZ - 01/30/2022 11:19 AM EDT Images from the original note were not included. Discharge Summary Summary Time: 01/30/22 11:19 AM Name: Micheline Fox Age: 61 y.o. Birthday: 1960 Admit Date: 01/27/2022 3:57 PM Discharge Date: 01/30/2022 Brief Summary of Hospital Course: Patient is a 61 y.o. female presents to [facility] for evaluation of not feeling well. Symptomsstarted [...] tolerated. Discharge Follow-up: Leticia Sylvester MD [address] [facility] [address] Follow up in 1 week(s) Lawrence Blake MD [address] [facility] [id number] Follow up in 1 week(s) Discharge Disposition: Patient will be discharged in stable condition. Discharge Time: Including assessment, planning, and medication reconciliation was greater than 35 min. Flip Campos CHIEF RADIOLOGIC TECHNOLOGIST-SAMPLE DISTRIBUTOR completing Discharge Summary for Dr. Bertrand Please note portions of this note utilized [employer] dictation software, please excuse any typographical or grammatical errors Associated attestation - Av Bertrand MD - 01/30/2022 12:47 PM EDT Patient seen and examined. All testing reviewed. Discussed with SAMPLE DISTRIBUTOR and agree with A/P. No pain overnight. [...] Use Authorization (EUA) for the qualitative detection [id number] nucleic acid. TROPONIN I, HIGH SENSITIVITY Result [...] YELLOW YELLOW APPEARANCE, URINE CLEAR CLEAR Specific [place], Urine 1.025 1.010 - 1.025 PH URINE [...] Av Bertrand MD 01/30/2022 documented in this [facility]05-12-2022 Hospital Discharge instructions* Discharge Instr - Activity* HEATHER Delgado - 01/30/2022 11:16 AM EDT AAT * Discharge Instr - Diet* HEATHER Delgado - 01/30/2022 11:16 AM EDT AAT * Attachments The following attachments cannot be sent through Care Everywhere. * Chest Pain (Montserratian) documented in this [facility]05-12-2022 Consult note* Calvin Alexander MD - 01/30/2022 [...] mg 1 mg Oral Daily Flip Campos, CHIEF RADIOLOGIC TECHNOLOGIST-SAMPLE DISTRIBUTOR 1 mg at 01/30/22 0935 alum/mag hydrox.-simethicone oral suspension 30 mL 30 mL Oral Q6H PRN Flip Campos, CHIEF RADIOLOGIC TECHNOLOGIST-SAMPLE DISTRIBUTOR cholecalciferol (VITAMIN D3) tablet 1,000 Units 1,000 Units Oral Daily Flip Campos, CHIEF RADIOLOGIC TECHNOLOGIST-SAMPLE DISTRIBUTOR 1,000 Units at 01/30/22 0935 diphenhydrAMINE (BENADRYL) injection 25 mg 25 mg Intravenous Q6H PRN Flip Tao, CHIEF RADIOLOGIC TECHNOLOGIST-SAMPLE DISTRIBUTOR docusate (COLACE) capsule 200 mg 200 mg Oral QHS Flip Kentrell Tao, CHIEF RADIOLOGIC TECHNOLOGIST-SAMPLE DISTRIBUTOR 200 mg at 01/29/222037 DULoxetine (CYMBALTA) capsule DR 60 mg 60 mg Oral Daily , CHIEF RADIOLOGIC TECHNOLOGIST-SAMPLE DISTRIBUTOR 60 mg at 01/30/22934 [Held by provider] Enoxaparin Sodium (LOVENOX) injection 40 mg 40 mg Subcutaneous Daily Flip Kentrell Tao, CHIEF RADIOLOGIC TECHNOLOGIST-SAMPLE DISTRIBUTOR 40 mg at 01/28/222037 hydrALAZINE (APRESOLINE) tablet 25 mg 25 mg Oral TID Flip Kentrell Tao, CHIEF RADIOLOGIC TECHNOLOGIST-SAMPLE DISTRIBUTOR 25 mg at 01/30/22934 hydroCODone-acetaminophen (NORCO) 5-325 MG per tablet 1 tablet 1 tablet Oral Q6H PRN Flip Pfeiffer , CHIEF RADIOLOGIC TECHNOLOGIST-SAMPLE DISTRIBUTOR 1 tablet at 01/30/22934 ketorolac (TORADOL) injection 30 mg 30 mg Intravenous Q8H PRN Av Bertrand MD 30 mg at 01/29/222036 labetalol (NORMODYNE) injection 20 mg 20 mg Intravenous Q4H PRN Flip Tao, CHIEF RADIOLOGIC TECHNOLOGIST-SAMPLE DISTRIBUTOR lactulose (CHRONULAC) oral solution 20 g 20 g Oral Q4H PRN Flip Pfeiffer , CHIEF RADIOLOGIC TECHNOLOGIST-SAMPLE DISTRIBUTOR losartan (COZAAR) tablet 50 mg 50 mg Oral Daily , CHIEF RADIOLOGIC TECHNOLOGIST-SAMPLE DISTRIBUTOR 50 mg at 01/30/22934 magnesium sulfate 2 g/50 mL in sterile water premix IVPB 2 g 50 mL (total volume) 2 g Intravenous Daily Flip D Dinh, CHIEF RADIOLOGIC TECHNOLOGIST-SAMPLE DISTRIBUTOR melatonin tablet 3 mg 3 mg Oral QHS PRN Flip Pfeiffer , CHIEF RADIOLOGIC TECHNOLOGIST-SAMPLE DISTRIBUTOR metoprolol (LOPRESSOR) tablet 25 mg 25 mg Oral BID Flip Kentrell , CHIEF RADIOLOGIC TECHNOLOGIST-SAMPLE DISTRIBUTOR 25 mg at 01/30/22934 naloxone (NARCAN) injection 0.04 mg 0.04 mg Intravenous PRN Flip Tao, CHIEF RADIOLOGIC TECHNOLOGIST-SAMPLE DISTRIBUTOR nitroGLYCERIN (NITRO-BID) 2 % ointment 0.5 inch 0.5 inch Topical TID Isreal Brush PA-C 0.5 inch at 01/30/22 0936 ondansetron 4mg/2ml (ZOFRAN) injection 4 mg 4 mg Intravenous Q4H PRN Av Bertrand MD 4 mg at 01/28/22 0834 pantoprazole (PROTONIX) tablet DR 40 mg 40 mg Oral Daily Flip Campos, CHIEF RADIOLOGIC TECHNOLOGIST- SAMPLE DISTRIBUTOR 40 mg at potassium chloride (K-DUR) tablet ER 40 mEq 40 mEq Oral Daily Flip Campos, CHIEF RADIOLOGIC TECHNOLOGIST-SAMPLE DISTRIBUTOR Or potassium chloride 40 mEq in 0.9% sodium chloride 500 ml IVPB 40 mEq Intravenous Daily Flip Campos, CHIEF RADIOLOGIC TECHNOLOGIST-SAMPLE DISTRIBUTOR potassium phosphates 30 mmol in sodium chloride 0.9%, with overfill 535 mL (total volume) IVPB 30 mmol Intravenous PRN Flip Campos, CHIEF RADIOLOGIC TECHNOLOGIST-ORTIZ sodium chloride 0.9% IV solution Intravenous Continuous JAQUELIN Marrufo-C 75 mL/hr at 01/30/2238 Restarted at 01/30/22937 tizanidine (ZANAFLEX) tablet 2 mg 2 mg Oral Q8H PRN Flip Campos, CHIEF RADIOLOGIC TECHNOLOGIST-SAMPLE DISTRIBUTOR topiramate (TOPAMAX) tablet 50 mg 50 mg Oral QHS Av Bertrand MD 50 mg at 01/29/222037 traZODone (DESYREL) tablet 300 mg 300 mg Oral QHS Av Bertrand MD 300 mg at 01/29/222037 zolpidem (AMBIEN) tablet 5 mg 5 mg Oral QHS Av Bertrand MD 5 mg at 01/29/222037 zolpidem (AMBIEN) tablet 5 mg 5 mg Oral QHS PRN Flip Campos, CHIEF RADIOLOGIC TECHNOLOGIST-SAMPLE DISTRIBUTOR Allergies Allergen Reactions Fentanyl Itching Codeine Latex [...] satisfaction. Calvin Alexander MD 01/30/2022 11:06 AM [employer] Work Phone: [phone] 242-418605-12-2022 Consult note* Calvin Alexander MD - 01/30/2022 [...] is a 61 y.o. female seen by [facility] cardiology today for atypical chest discomfort [...] Laterality: N/A; Surgeon: Isael Hall MD; Location: [facility] ENDOSCOPY REPAIR HERNIA VENTRAL OPEN W/ [...] 1 mg Oral Daily Flip D Grund, CHIEF RADIOLOGIC TECHNOLOGIST-SAMPLE DISTRIBUTOR 1 mg at 01/30/22 0935 alum/mag hydrox.-simethicone oral suspension 30 mL 30 mL Oral Q6H PRN Flip D Grund, CHIEF RADIOLOGIC TECHNOLOGIST-SAMPLE DISTRIBUTOR cholecalciferol (VITAMIN D3) tablet 1,000 Units 1,000 Units Oral Daily Flip D , CHIEF RADIOLOGIC TECHNOLOGIST-SAMPLE DISTRIBUTOR 1,000 Units at 01/30/22934 diphenhydrAMINE (BENADRYL) injection 25 mg 25 mg Intravenous Q6H PRN Flip D Grund, CHIEF RADIOLOGIC TECHNOLOGIST-SAMPLE DISTRIBUTOR docusate (COLACE) capsule 200 mg 200 mg Oral QHS Flip D , CHIEF RADIOLOGIC TECHNOLOGIST-SAMPLE DISTRIBUTOR 200 mg at 01/29/222037 DULoxetine (CYMBALTA) capsule DR 60 mg 60 mg Oral Daily D , CHIEF RADIOLOGIC TECHNOLOGIST-SAMPLE DISTRIBUTOR 60 mg at 01/30/22 09 [Held by provider] Enoxaparin Sodium (LOVENOX) injection 40 mg 40 mg Subcutaneous Daily Flip D Dinh, CHIEF RADIOLOGIC TECHNOLOGIST-SAMPLE DISTRIBUTOR 40 mg at 01/28/222037 hydrALAZINE (APRESOLINE) tablet 25 mg 25 mg Oral TID , CHIEF RADIOLOGIC TECHNOLOGIST-SAMPLE DISTRIBUTOR 25 mg at 01/30/22934 hydroCODone-acetaminophen (NORCO) 5-325 MG per tablet 1 tablet 1 tablet Oral Q6H PRN Flip Pfeiffer Gr, CHIEF RADIOLOGIC TECHNOLOGIST-SAMPLE DISTRIBUTOR 1 tablet at 01/30/22934 ketorolac (TORADOL) injection 30 mg 30 mg Intravenous Q8H PRN Av Bertrand MD 30 mg at 01/29/222036 labetalol (NORMODYNE) injection 20 mg 20 mg Intravenous Q4H PRN Flip D Grund, CHIEF RADIOLOGIC TECHNOLOGIST-SAMPLE DISTRIBUTOR lactulose (CHRONULAC) oral solution 20 g 20 g Oral Q4H PRN Flip Pfeiffer Grund, CHIEF RADIOLOGIC TECHNOLOGIST-SAMPLE DISTRIBUTOR losartan (COZAAR) tablet 50 mg 50 mg Oral Daily Flip Campos, AWILDA-SAMPLE DISTRIBUTOR 50 mg at 01/30/22 0935 magnesium sulfate 2 g/50 mL in sterile water premix IVPB 2 g 50 mL (total volume) 2 g Intravenous Daily HEATHER Delgado melatonin tablet 3 mg 3 mg Oral QHS PRN Flip Campos, AWILDA-ORTIZ metoprolol (LOPRESSOR) tablet 25 mg 25 mg Oral BID Flip Campos, AWILDA-SAMPLE DISTRIBUTOR 25 mg at 01/30/22 0935 naloxone (NARCAN) [...] 5 mg Oral QHS PRN Flip Campos APRN-SAMPLE DISTRIBUTOR Allergies Allergen Reactions Fentanyl Itching Codeine Latex [...] MD 01/30/2022 11:06 AM [facility]* Nursing Notes - Kerrie Pacheco RN - 01/30/2022 4:17 AM EDT Patient assessment unchanged from previous assessment. Call light and personal items within reach. Patient denies any further needs at this time. [facility]05-12-2022 Note* Nursing Notes - Kerrie Pacheco RN - 01/30/2022 12:14 AM EDT Patient assessment unchanged from previous assessment. Call light and personal items within reach. Patient denies any further needs at this time. [facility]05-11-2022 Note* Nursing Notes - Vaishnavi Ybarra RN - 01/29/2022 6:39 PM EDT Chest pain, 02/28, patient states it is intermittent, and worsens with movement. States pain is sharp and heavy. . EKG ordered. Isreal HAMMER aware . Dr Alexander was notified by return clerk earlier this am. T [facility]05-11-2022 Note* Plan of Care - Vaishnavi Ybarra [...] by discharge/transition of care. Out[facility] Nursing Notes - An Mendoza RN - 01/29/2022 2:00 AM EDT Pt sleeping soundly, oxygen saturation at 83-87 on room air. Oxygen applied at 2 L/NC with saturation improving to 92%. [facility]05-11-2022 Note* Nursing Notes - Vaishnavi Ybarra RN - 01/29/2022 12:00 PM EDT Assessment completed. Patient states chest pain is less and she is able to rest. Call light within reach. [facility]05-11-2022 Note* Nursing Notes - Vaishnavi Ybarra RN [...] sleep. Isreal HAMMER aware and orders received. [facility]05-11-2022 Note* Nursing Notes - An Mendoza RN - 01/29/2022 3:42 AM EDT Assessment unchanged, resting quietly. O2 Sats in the 90's with oxygen on at 2 L/ NS. Side rails upx 2, call light in reach. [facility]05-11-2022 Note* Nursing Notes - An Mendoza RN - 01/29/2022 12:15 AM EDT Transferred from second floor to [facility]. Denies complaints [facility]05-10-2022 Note* Nursing Notes - Melvin Dodd RN - 01/28/2022 4:56 PM EDT No changes from prior assessment [facility]05-10-2022 History and physical note* Flip Campos APRN- ORTIZ - 01/28/2022 3:11 PM EDT [facility] History and Physical Examination 01/28/22 3:11 PM Chief Complaint: Chief Complaint Patient presents with Chest Pain Chest pain, weakness, tachycardia, shaky, and high blood pressure since yesterday History of Present Illness: Patient is a 61 y.o. female presents to [facility] for evaluation of not feeling well. Symptomsstarted [...] 10/24/2020 Added automatically from request for surgery [id number] S/P bariatric surgery 10/24/2020 Added automatically from [...] prophylaxis with protonix and lovenox Flip Campos APRN-SAMPLE DISTRIBUTOR Completing history and physical for Dr. Bertrand. 3:11 PM Please note Portions of this note utilized [employer] dictation software, please excuse any typographical or grammatical errors Associated attestation - Av Bertrand MD - 01/28/2022 8:49 PM EDT Patient seen and examined. All testing reviewed. Discussed with SAMPLE DISTRIBUTOR and agree with A/P. CP. ED eval [...] Use Authorization (EUA) for the qualitative detection [id number] nucleic acid. TROPONIN I, HIGH SENSITIVITY Result [...] YELLOW YELLOW APPEARANCE, URINE CLEAR CLEAR Specific [place], Urine 1.025 1.010 - 1.025 PH URINE [...] and mood normal. Av Bertrand MD 01/28/2022 [facility]05-10-2022 History and physical note* Flip Campos, CHIEF RADIOLOGIC TECHNOLOGIST- SAMPLE DISTRIBUTOR - 01/28/2022 3:11 PM EDT [facility] History and Physical Examination 01/28/22 3:11 PM Chief Complaint: Chief Complaint Patient presents with Chest Pain Chest pain, weakness, tachycardia, shaky, and high blood pressure since yesterday History of Present Illness: Patient is a 61 y.o. female presents to [facility] for evaluation of not feeling well. Symptomsstarted [...] 10/24/2020 Added automatically from request for surgery [id number] S/P bariatric surgery 10/24/2020 Added automatically from request for surgery [id number] S/P hernia repair 07/16/2016 Class 3 severe [...] prophylaxis with protonix and lovenox Flip Campos CHIEF RADIOLOGIC TECHNOLOGIST-SAMPLE DISTRIBUTOR Completing history and physical for Dr. Bertrand. 3:11 PM Please note Portions of this note utilized [employer] dictation software, please excuse any typographical or grammatical errors Associated attestation - Av Bertrand MD - 01/28/2022 8:49 PM EDT Patient seen and examined. All testing reviewed. Discussed with SAMPLE DISTRIBUTOR and agree with A/P. CP. ED eval [...] Use Authorization (EUA) for the qualitative detection [id number] nucleic acid. TROPONIN I, HIGH SENSITIVITY Result [...] YELLOW YELLOW APPEARANCE, URINE CLEAR CLEAR Specific [place], Urine 1.025 1.010 - 1.025 PH URINE [...] Av Bertrand MD 01/28/2022 [facility]* Nursing Notes - Melvin Dodd RN - 01/28/2022 12:38 PM EDT No changes from prior assessment [facility]05-10-2022 Note* Nursing Notes - Jesesnia Lawson RN - 01/28/2022 4:30 AM EDT Patient assessment unchanged from previous assessment. Patient sleeping at this time, call light inreach. [facility]05-10-2022 Note* Nursing Notes - Jessenia Lawson RN - 01/28/2022 2:20 AM EDT Patient SPO2 had decreased to 88% on room air. Per patient she does have sleep apnea. Patient stated she will not wear a CPAP however did accept nasal cannula. SPO2 has increased. Patient back to sleep at this time. Will continue to monitor. [facility]05-10-2022 Note* Nursing Notes - Jessenia Lawson RN - 01/28/2022 12:20 AM EDT Patient assessment unchanged from previous assessment. Patient is now sleeping comfortably with no signs or indicators of pain present. Call light in reach. [facility]05-09-2022 Note* Nursing Notes - Jessenia Lawson RN - 01/27/2022 11:[address] Bertrand to notify of patient headache, unrelieved by nursing intervention and PRN Tylenol. New order for Toradol PRN Q8H. Also advised of patient request to take her home bedtime medications. Per Dr Bertrand new order to give home bedtime medications. Medications and dosages reviewed and ok'd. See MAR. [facility]05-09-2022 Emergency department Note* Jose Antonio Low RN - 01/27/2022 10:03 PM EDT Patient transported to floor on monitor worker. Report given to Jessenia BACON [facility]05-09-2022 Emergency department Note* Jose Antonio Low RN - 01/27/2022 10:03 PM EDT Patient transported to floor on monitor worker. Report given to Jessenia BACON * Shelley [...] 01/27/2022 4:58 PM EDT Emergency Department Report [facility] EMERGENCY DEPARTMENT Service Date:.01/27/22 PCP: Leticia Sylvester [...] Laterality: N/A; Surgeon: Isael Hall MD; Location: [facility] ENDOSCOPY REPAIR HERNIA VENTRAL OPEN W/ MESH N/A 07/16/2016 Laterality: N/A; Surgeon: Jake Hurtado MD; Location: [facility] MAIN OR HEART CATHETERIZATION Apr 2015 [...] Use Authorization (EUA) for the qualitative detection [id number] nucleic acid. TROPONIN I, HIGH SENSITIVITY Result [...] YELLOW YELLOW APPEARANCE, URINE CLEAR CLEAR Specific [place], Urine 1.025 1.010 - 1.025 PH URINE [...] tachycardia with ventricular rate of 123 a GA of 170 and a QRS of 74. [...] Portions of this chart were created using [employer] electronic dictation. Please excuse any typographical or [...] Means of arrival: Comments: documented in this [facility]05-09-2022 Emergency department Note* Shelley Brooks RN - 01/27/2022 7:53 PM EDT Room assignment [id number] [facility]05-09-2022 Emergency department Note* Jose Antonio Low RN - 01/27/2022 7:11 PM EDT Report received from Yesy BACON [facility]05-09-2022 Emergency department Note* Sandy Pratt RN - 01/27/2022 6:02 PM EDT Pt is on continues pulse ox [facility]05-09-2022 Emergency department Note* Yesy Bruno RN - 01/27/2022 5:12 PM EDT Michaela HAMMER aware of pts c/o headache and request for tylenol. [facility]05-09-2022 Physician Emergency department Note* JAQUELIN Marrufo-Stacia - 01/27/2022 4:58 PM EDT Emergency Department Report [facility] EMERGENCY DEPARTMENT Service Date:.01/27/22 PCP: Leticia Sylvester [...] Laterality: N/A; Surgeon: Isael Hall MD; Location: [facility] ENDOSCOPY REPAIR HERNIA VENTRAL OPEN W/ MESH N/A 07/16/2016 Laterality: N/A; Surgeon: Jake Hurtado MD; Location: [facility] MAIN OR HEART CATHETERIZATION Apr 2015 [...] Use Authorization (EUA) for the qualitative detection [id number] nucleic acid. TROPONIN I, HIGH SENSITIVITY Result [...] YELLOW YELLOW APPEARANCE, URINE CLEAR CLEAR Specific [place], Urine 1.025 1.010 - 1.025 PH URINE [...] tachycardia with ventricular rate of 123 a GA of 170 and a QRS of 74. [...] Portions of this chart were created using [employer] electronic dictation. Please excuse any typographical or grammatical errors contained herein. Plan is to admit. Michaela Barragan PA-C 01/27/221919 Associated attestation - Silas Starkey MD - 01/27/2022 7:58 PM EDT Attending note: I was available for consultation regarding this patient. The patient was seen, evaluated and dispositioned by the mid-level provider independently. [employer] Work Phone: [phone] Emergency department Note* Wilma Bonilla RN - 01/27/2022 3:57 PM EDT Bed: E009 Expected date: Expected time: Means of arrival: Comments: [employer] [id number] Miscellaneous Notes* Case Communication - Irene Guerrero RN - 10/23/2021 7:49 AM EST Patient not admitted. Multuple calls and messages left for patient to return call. Spoke with patients mother who stated patient should be home. No answer at home no return call. Dr notified via phone documented in this [id number] Miscellaneous Notes* Telephone Encounter - Lupe Jeong [...] Thrombocytopenia Thrombocytopenia, unspecified [facility] Diagnosis Hepatic cirrhosis, unspecified hepatic [...] Other drug allergy [facility] Diagnosis Other microscopic hematuria- Primary Urinary frequency [facility] Diagnosis Other microscopic hematuria Urinary frequency Urinary frequency- Primary Other microscopic hematuria [facility] Diagnosis Urinary frequency- Primary Other microscopic hematuria [facility] Diagnosis Sciatica of left side- Primary Sciatica Vasculitis of skin Vascular disorder of skin [facility] Diagnosis Pain in left lower leg [facility] Diagnosis Hypertensive urgency- Primary Unspecified essential hypertension Hypertensive urgency Unspecified essential hypertension Acute intractable headache, unspecified headache type Anxiety Anxiety state, unspecified Hypokalemia Hypopotassemia KELLY (obstructive sleep apnea) Obstructive sleep apnea (adult) (pediatric) Thrombocytopenia Thrombocytopenia, unspecified Chronic hepatitis C virus infection Class 3 severe obesity due to excess calories with serious comorbidity and body mass index (BMI) of 45.0 to 49.9 in adult Elevated LFTs Other abnormal blood chemistry Mixed hyperlipidemia Hyperglycemia Other abnormal glucose Tension type headache Tension type headache, unspecified documented [facility]* Diagnosis Primary osteoarthritis of left knee- Primary [facility] Diagnosis Migraine with aura, with intractable migraine, so stated, with status migrainosus- Primary [facility]* Diagnosis Generalized abdominal pain- Primary Abdominal pain, generalized Constipation, unspecified constipation type Anxiety Anxiety state, unspecified [facility] Diagnosis Hepatic cirrhosis, unspecified hepatic cirrhosis [...] cirrhosis type (Multi) documented in this encounter [facility] Work Phone: Hospital Discharge instructions* Attachments The following attachments cannot be sent through Care Everywhere. * Coronavirus Disease (COVID-19): Isolation ([place]) * Coronavirus Disease (COVID-19): General Info ([place]) * Drug Allergy ([place]) [facility] instructions* Attachments The following attachments cannot be sent through Care Everywhere. * Back Pain ([place]) * Sciatica ([place]) [facility]* Attachments The following attachments cannot be sent through Care Everywhere. * Pain and Pain Control ([facility]) ([place]) * Hypertension: Emergency or Urgency ([place]) * Moving to Stay Independent ([facility]) ([place]) * atorvastatin ([place]) * carvedilol ([place]) * hydrochlorothiazide ([place]) * losartan ([place]) [facility] N[facility]ative* Tests/Procedures (Routine) - Closed Specialty Diagnoses / Procedures Referred By Marco Antonio t Referred To Contact Gastroenterology Diagnoses Hepatic cirrhosis, unspecified hepatic cirrhosis type, unspecified whether ascites present (HCC) Jaime Carter, AWILDA-SAMPLE DISTRIBUTOR [address] [place] [address] [facility] [place] [place] [address] Referral ID Status Reason Start Date Expiration Date V isits Requested Visits Authorized [id number] Closed Consultation -[facility] 01/27/2024 01/26/2025 1 1 [facility] Summary Purpose Family History No Family History [...] FoundDocuments on File Type Date Recorded Patient Associate Professor Of History Expl anation Advance Directives and Living Will Documents on File Type Date Recorded Patient Associate Professor Of History Expl anation Advance Directives and Livin g Will 07/28/2019 9:42 AM Latest Code Status on File Code Status Date Activated Date Inactivated Comments Full Code 07/08/2019 9:52 AM Full Code 06/30/2019 4:58 PM 07/08/2019 7:01 AM Documents on File Type Date Recorded Patient Associate Professor Of History Expl anation Advance Directives and Livin g Will 07/28/2019 9:42 AM Latest Code Status on File Code Status Date Activated Date Inactivated Comments Full Code 07/08/2019 9:52 AM Full Code 06/30/2019 4:58 PM 07/08/2019 7:01 AM Documents on File Type Date Recorded Patient Associate Professor Of History Expl anation Advance Directives and Livin g Will 07/29/2019 8:12 AM Latest Code Status on File Code Status Date Activated Date Inactivated Comments Full Code 07/08/2019 9:52 AM 07/29/2019 8:12 AM Documents on File Type Date Recorded Patient Associate Professor Of History Expl anation Advance Directives and Livin g Will 09/20/2019 11:05 AM Latest Code Status on File Code Status Date Activated Date Inactivated Comments Full Code 07/08/2019 9:52 AM 07/29/2019 8:12 AM Documents on File Type Date Recorded Patient Associate Professor Of History Expl anation Advance Directives and Livin g Will 11/01/2019 1:42 PM Documents on File Type Date Recorded Patient Associate Professor Of History Expl anation Advance Directives and Livin g Will 05/02/2019 1:12 PM Documents on File Type Date Recorded Patient Associate Professor Of History Expl anation Advance Directives and Livin g Will 09/05/2019 8:57 AM Documents on File Type Date Recorded Patient Associate Professor Of History Expl anation Advance Directives and Livin g Will 06/23/2019 3:23 PM Latest Code Status on File Code Status Date Activated Date Inactivated Comments Full Code 06/30/2019 4:58 PM Documents on File Type Date Recorded Patient Associate Professor Of History Expl anation Advance Directives and Livin g Will 11/01/2020 3:10 PM Documents on File Type Date Recorded Patient Associate Professor Of History Expl anation Advance Directives and Livin g Will 11/14/2020 9:08 AM Latest Code Status on File Code Status Date Activated Date Inactivated Comments Full Code 11/14/2020 11:43 AM 11/14/2020 6:13 PM Full Code 07/08/2019 9:52 AM 07/29/2019 8:12 AM Documents on File Type Date Recorded Patient Associate Professor Of History Expl anation Advance Directives and Livin g Will 11/14/2020 9:08 AM Power of Cage Maker Documents on File Type Date Recorded Patient Associate Professor Of History Expl anation Advance Directives and Livin g Will 11/14/2020 9:08 AM Power of Cage Maker Latest Code Status on File Code Status [...] Documents on File Type Date Recorded Patient Associate Professor Of History Expl anation Advance Directives and Livin g Will 07/08/2019 7:00 AM Documents on File Type Date Recorded Patient Associate Professor Of History Expl anation Advance Directives and Livin g Will 08/12/2019 8:57 AM Documents on File Type Date Recorded Patient Associate Professor Of History Expl anation Power of Cage Maker Advance Directives and Livin g Will 11/14/2020 9:08 AM Documents on File Type Date Recorded Patient Associate Professor Of History Expl anation Power of Cage Maker Advance Directives and Livin g Will 04/03/2021 5:01 PM Documents on File Type Date Recorded Patient Associate Professor Of History Expl anation Power of Cage Maker Advance Directives and Livin g Will 04/03/2021 [...] Documents on File Type Date Recorded Patient Associate Professor Of History Expl anation Power of Cage Maker Latest Code Status on File Code Status [...] Documents on File Type Date Recorded Patient Associate Professor Of History Expl anation Power of Cage Maker Latest Code Status on File Code Status [...] PM EDT Dr Thomas to see patient. [facility] scheduled and instructions given. * Lupe Jeong [...] with patient - she is current with [facility] and she wants to continue her current service and add a home health aid. She said that they know she wants one but there has not been one available. Anticipated Discharge Plan Anticipated Home Care Needs: Home health care Anticipated Facility Type: Home care * Digna Enriquez DPM - 12/01/2020 8:25 AM EST Progress Inpatient Follow-up 12/01/2020 Digna Enriquez, KEVIN [facility] Patient: Micheline Fox Date of : 1960 [...] 53.78 kg/m Laboratory and Additional Data Reviewed: Reviewed:[id number]} * Eli Morataya CNP - 11/30/2020 7:07 PM EST [facility] Medicine Inpatient Follow-up 11/30/[address] [facility] Patient: Micheline Fox Date of : 1960 [...] Inpatient Progress Note 11/30/[address] [facility] Patient: Micheline Fox Date of : 1960 [...] Medicine Inpatient Follow-up 11/29/2020 Eli Morataya, ORTIZ [facility] Patient: Micheline Fox Date of : 1960 [...] PM EDT [facility] [address] [facility] [address] [facility] [id number] Subjective: Micheline Fox is a 59 y.o. female seen in the office today for Chief Complaint Patient presents with Initial Visit (Intake) RECREATIONAL ASSISTANT to re-establish care w/ EKG today Chest [...] 06/22/2020 Scheduling Instructions: OK to schedule at [facility] and all ambulatory sites Fax script to: [facility] [phone] [facility]-[phone] [facility] - [phone] Order Specific Question: Reason for Exam: Answer: [...] PM EST [facility] [address] ([address]) [facility] [address] [facility] [id number] Subjective: Micheline Fox is a 59 y.o. female seen in the office today for Chief Complaint Patient presents with Follow-up 6 wk f/u Shortness of Breath Dictation on: 08/22/2019 2:58 PM by: GIORGI THOMAS [[id number]] Overview of Problems Addressed: Problem Ashd (Arteriosclerotic [...] Procedure: COLONOSCOPY; Surgeon: Joe Colón MD; Location: [facility]; Service: Gastroenterology EGD N/A 07/29/2019 Procedure: ESOPHAGOGASTRODUODENOSCOPY; Surgeon: Joe Colón MD; Location: [facility]; Service: Gastroenterology GASTRIC BYPASS 1996 HC LEFT HEART CATH N/A 07/08/2019 Procedure: Left Heart Cath; Surgeon: Hari Acosta MD; Location: [facility]; Service: Cardiovascular HERNIA REPAIR NECK SURGERY 1999 [...] Fox Home Medication Instructions Prior to Surgery RIVERA:[id number] Printed on:07/28/19 [id number] Medication Information Take last dose on Take [...] medications that contain aspirin, such as Moraima [place], Pepto- Bismol, Anacin), antiinflammatory medications such as Advil, Motrin, Ibuprofen, Naproxen, Aleve, Moraima [place], Pepto-Bismol, Anacin, Diclofenac, Voltaren, Daypro, Etodolac, Ketoprofen, Meloxicam, Piroxicam, Relafen, Nabumetone, etc. Also discontinue Vitamin C, Vitamin E, [place]-3 Fatty Acid, Fish Oil or Lovaza, as [...] Care Team: Provider: Dr. Giorgi Thomas MD Sash Finisher: Lupe Jeong RN Heart Catheterization Date and Time of your procedure_ThursdayJuly 08 at 9 AM_ Please arrive at [facility] and check in at the Outpatient Registration [...] questions or concerns please contact us at [phone]. documented in this encounter* Patient Instructions* Anay Pedersen MA - 06/23/2019 2:19 PM EDT How to Contact your Care Team: Provider: Dr. Giorgi Thomas MD Sash Finisher: Lupe Jeong RN REFILLS: When in need for refills please call your care team or the office at [phone]. Please include medication name, pharmacy name, and specify 30-day or 90-day supply. Please check with your pharmacy within 24 hours of request for your refill. You must follow up as directed to continue current refills. Thank you! documented in this encounter* Patient Instructions* Anay Pedersen MA - 08/22/2019 2:14 PM EST How to Contact your Care Team: Provider: Dr. Giorgi Thomas MD Sash Finisher: Lupe Jeong RN REFILLS: When in need for refills please call your care team or the office at [phone]. Please include medication name, pharmacy name, and specify 30-day or 90-day supply. Please check with your pharmacy within 24 hours of request for your refill. You must follow up as directed to continue current refills. Thank you! documented in this encounter Assessments Diagnosis Preop examination- Primary Unspecified pre-operative examination Personal history of colonic polyps Morbid obesity (HCC) Morbid obesity Coronary artery disease involving s[place]ovia coronary artery of [place] heart without angina pectoris Other cirrhosis of [...] Coronary atherosclerosis of unspecified type of vessel, [place] or graft Diagnosis MCGOWAN (dyspnea on exertion) Other dyspnea and respiratory abnormality ASHD (arteriosclerotic heart disease) Coronary atherosclerosis of unspecified type of vessel, [place] or graft Diagnosis Chest pain, unspecified type MCGOWAN (dyspnea on exertion) Other dyspnea and respiratory abnormality ASHD (arteriosclerotic heart disease) Coronary atherosclerosis of unspecified type of vessel, [place] or graft Reason for Referral Status Reason Specialty Diagnoses / Procedures Re ferred By Contact Referred To Contact Pending Review Radiology Diagnoses Epigastric pain Other cirrhosis of liver (HCC) Personal history of colonic polyps Gastrointestinal symptoms Hematochezia Hepatic encephalopathy (HCC) Procedures US Abdomen Limited Study US Abdomen Complete Julia Anderson MD [address] [place] [address] Status Reason Specialty Diagnoses / Procedures Referre d By Contact Referred To Contact Closed Radiology Diagnoses MCGOWAN (dyspnea on exertion) Procedures CT Pulmonary Arteries Giorgi Thomas MD [address] [address] Status Reason Specialty Diagnoses / Procedures Referre d By Contact Referred To Contact Closed Radiology Diagnoses Stomach ache Procedures CT Abdomen Pelvis Without Contrast Aleida Leal MD [address] [place] [address] Status Reason Specialty Diagnoses / Procedures Referre d By Contact Referred To Contact Closed Cardiology Diagnoses MCGOWAN (dyspnea on exertion) Procedures Echocardiogram complete Giorgi Thomas MD [address] [address] Status Reason Specialty Diagnoses / Procedures Referre d By Contact Referred To Contact Closed Cardiology Diagnoses Bilateral pain of leg and foot Procedures Ultrasound duplex venous legs bilat Digna Enriquez, KEVIN [address] [place] [address] Status Reason Specialty Diagnoses / Procedures Referred By Contact Referred To Contact Authorized Patient Preference Home Health Services Diagnoses Acute post-operative pain Nehemias Sun MD [address] [place] [address] Status Reason Specialty Diagnoses / Procedures Referred By Contact Referred To Contact Pending Review Radiology Diagnoses MCGOWAN (dyspnea on exertion) Procedures CT Angiogram Chest Giorgi Thomas MD [address] [address] Status Reason Specialty Diagnoses / Procedures Referred By Contact Referred To Contact Pending Review Cardiology Diagnoses MCGOWAN (dyspnea on exertion) Procedures Echocardiogram complete Giorgi Thomas MD [address] [address] Status Reason Specialty Diagnoses / Procedures Referre d By Contact Referred To Contact Closed Radiology Diagnoses Lump of skin of upper extremity, right Procedures US Upper Extremity Non Vascular Limited Right Leticia Sylvester MD [address] [place] [address] Specialty Diagnoses / Procedures Referred By Contac t Referred To Contact Procedures ECG Isreal Brush PA-C [address] [place] [address] Referral ID Status Reason Start Date Expiration Date V isits Requested Visits Authorized [id number] New Request 01/29/2022 02/23/2023 1 1 Specialty Diagnoses / Procedures Referred By Contac t Referred To Contact Procedures NUC MYOCARD PERF STRESS MIBI PHARM GA CHG MYOCARDIAL SPECT MULTIPLE STUDIES CHG MYOCARDIAL SPECT MULTIPLE STUDIES-T GA CARDIAC STRESS TST,INTERP/REPT ONLY GA CV STRS TST XERS&/OR RX CONT ECG W/O I&R Giorgi Adan, CHIEF RADIOLOGIC TECHNOLOGIST-SAMPLE DISTRIBUTOR [address] [place] [address] Referral ID Status Reason Start Date Expiration Date Visits Re quested Visits Authorized [id number] Closed 01/29/2022 02/23/2023 1 1 Referral ID Status Reason Start Date Expiration Date V isits Requested Visits Authorized [id number] New Request 01/29/2022 02/23/2023 1 1 Specialty Diagnoses / Procedures Referred By Contac t Referred To Contact Danyell Patel, PT [address] [place] [address] Referral ID Status Reason Start Date Expiration Date Visits Re quested Visits Authorized Specialty Diagnoses / Procedures Referred By Contac t Referred To Contact Procedures INPATIENT ADMISSION NOTIFICATION Av Bertrand MD [address] [place] [address] Referral ID Status Reason Start Date Expiration Date V isits Requested Visits Authorized [id number] New Request 01/27/2022 02/21/2023 1 1 Specialty Diagnoses / Procedures Referred By Contac t Referred To Contact Procedures ECG Silas Starkey MD [address] [place] [address] Referral ID Status Reason Start Date Expiration Date V isits Requested Visits Authorized [id number] Pending Review 01/27/2022 02/21/2023 1 1 Specialty Diagnoses / Procedures Referred By Contac t Referred To Contact Gastroenterology Diagnoses Hepatic cirrhosis, unspecified hepatic cirrhosis type, unspecified whether ascites present (HCC) Abdominal pain, unspecified abdominal location Abnormal finding of blood chemistry, unspecified Abnormal findings on diagnostic imaging of other parts of digestive tract Jaime Carter APRN-CNP [address] [place] [address] [place] [address] [facility] GASTROENTEROLOGY [address] [place] [address] Referral ID Status Reason Start Date Expiration Date V isits Requested Visits Authorized [id number] Authorized 04/23/2022 04/23/2023 3 3 Scheduling Instructions [...] CT ABDOMEN/PELVIS W/ CONTRAST Jaime Carter APRN-CNP [address] [place] [address] [place] [address] [facility] [address] SCAN Referral ID Status Reason Start Date Expiration Date V isits Requested Visits Authorized [id number] Authorized 04/23/2022 04/23/2023 1 1 Specialty Diagnoses / Procedures Referred By Contac t Referred To Contact Radiology Diagnoses Early satiety Procedures NM GASTRIC EMPTYING STUDY Eusebia Jones, BHAVANISAMPLE DISTRIBUTOR [address] [place] [address] [place] [address] [facility] NUCLEAR MEDICINE [address] [place] [address] Referral ID Status Reason Start Date Expiration Date V isits Requested Visits Authorized [id number] Pending Review 08/19/2022 08/19/2023 1 1 Specialty Diagnoses / Procedures Referred By Contac t Referred To Contact General Surgery Diagnoses Grade I hemorrhoids Eusebia Jones, CHIEF RADIOLOGIC TECHNOLOGIST-SAMPLE DISTRIBUTOR [address] [place] [address] S SURGERY GENERAL [address] [phone] Referral ID Status Reason Start Date Expiration Date V isits Requested Visits Authorized [id number] Authorized 08/19/2022 08/19/2023 3 3 Scheduling Instructions Please call the Surgery Clinic at to schedule an appointment if one was not made for you today. Question Answer Reason for evaluation: Pilonidal/Hemorrhoid Specialty Diagnoses / Procedures Referred By Contac t Referred To Contact Diagnoses Other microscopic hematuria Urinary frequency Procedures CT UROGRAM ABDOMEN/PELVIS W/ CT POST PROCESSING Av Delgado MD [address] [address] Referral ID Status Reason Start Date Expiration Date V isits Requested Visits Authorized [id number] Auth Not Needed 10/01/2022 10/26/2023 1 1 Referral ID Status Reason Start Date Expiration Date Visits Re quested Visits Authorized [id number] Closed 10/01/2022 10/26/2023 1 1 Specialty Diagnoses / Procedures Referred By Contac t Referred To Contact Social Work Diagnoses Hypertensive urgency Giorgi Adan, CHIEF RADIOLOGIC TECHNOLOGIST-SAMPLE DISTRIBUTOR [address] [place] [address] Referral ID Status Reason Start Date Expiration Date V isits Requested Visits Authorized [id number] New Request 05/26/2023 06/19/2024 1 1 Specialty Diagnoses / Procedures Referred By Contac t Referred To Contact AVITA NEMAHA REV LOC [address] [place] [address] Specialty Diagnoses / Procedures Referred By Contac t Referred To Contact Family Medicine Diagnoses Hypertensive urgency Giorgi Adan, CHIEF RADIOLOGIC TECHNOLOGIST-SAMPLE DISTRIBUTOR [address] [place] [address] Leticia Sylvester MD [address] [place] [address] Referral ID Status Reason Start Date Expiration Date V isits Requested Visits Authorized [id number] New Request 05/24/2023 06/17/2024 1 1 Specialty Diagnoses / Procedures Referred By Contac t Referred To Contact Procedures US RENAL ARTERIES Giorgi Adan, CHIEF RADIOLOGIC TECHNOLOGIST-SAMPLE DISTRIBUTOR [address] [place] [address] Referral ID Status Reason Start Date Expiration Date Visits Re quested Visits Authorized [id number] Closed 05/22/2023 06/15/2024 1 1 Specialty Diagnoses / Procedures Referred By Contac t Referred To Contact Procedures INPATIENT ADMISSION NOTIFICATION Calvin Pimentel, DO [address] [place] [address] Referral ID Status Reason Start Date Expiration Date V isits Requested Visits Authorized [id number] New Request 05/22/2023 06/15/2024 1 1 Specialty Diagnoses / Procedures Referred By Contac t Referred To Contact Procedures ECG Jose Eduardo Dumont MD [address] [place] [address] Referral ID Status Reason Start Date Expiration Date V isits Requested Visits Authorized [id number] New Request 05/22/2023 06/15/2024 1 1 Specialty Diagnoses / Procedures Referred By Contac t Referred To Contact Neurology Diagnoses Migraine with aura, with intractable migraine, so stated, with status migrainosus Leticia Sylvester MD [address] [facility] [place] [address] Dioni Mcdonald MD [address] [address] Referral ID Status Reason Start Date Expiration Date V isits Requested Visits Authorized [id number] Authorized 11/23/2023 11/22/2024 1 1 Specialty Diagnoses / Procedures Referred By Contac t Referred To Contact Internal Medicine Diagnoses Hepatic cirrhosis, unspecified hepatic cirrhosis type, unspecified whether ascites present (HCC) Assistance needed with transportation Anxiety about health Insomnia, unspecified type Fatty liver Jaime Carter APRN-CNP [address] [place] [address] [place] [address] [address] [place] [address] Referral ID Status Reason Start Date Expiration Date V isits Requested Visits Authorized [id number] Authorized 01/27/2024 01/26/2025 10 10 Scheduling Instructions Please call [phone] to schedule your appointment in Weight Management if an appointment was not yet made for you. Question Answer Is patient interested in weight loss surgery? No Specialty Diagnoses / Procedures Referred By Marco Antonio whitt Referred To Contact Jaime Carter APRN-CNP [address] [place] [address] [place] [address] Question Answer Referral Reason: TRANSPORTATION/DME Location Patient [facility] Specialty Diagnoses / Procedures Referred By Marco Antonio whitt Referred To Contact Psychology Diagnoses Hepatic cirrhosis, unspecified hepatic cirrhosis type, unspecified whether ascites present (HCC) Assistance needed with transportation Anxiety about health Insomnia, unspecified type Fatty liver Jaime Carter APRN-CNP [address] [place] [address] [place] [address] [facility] PSY ADULT GENERAL [address] [place] [address] Referral ID Status Reason Start Date Expiration Date V isits Requested Visits Authorized [id number] Authorized 01/27/2024 01/26/2025 3 3 Question Answer Reason for referral Cognitive behavioral therapy for insomnia (CBT-I) Specialty Diagnoses / Procedures Referred By Marco Antonio t Referred To Contact Radiology Diagnoses Hepatic cirrhosis, unspecified hepatic cirrhosis type, unspecified whether ascites present (HCC) Procedures US LIVER/GALL BLADDER/PANCREAS Jaime Carter APRN-CNP [address] [place] [address] [place] [address] S ULTRASOUND [address] [place] [address] Referral ID Status Reason Start Date Expiration Date V isits Requested Visits Authorized [id number] Authorized 01/27/2024 01/26/2025 1 1 Specialty Diagnoses / Procedures Referred By Marco Antonio whitt Referred To Contact Gastroenterology Diagnoses Hepatic cirrhosis, unspecified hepatic cirrhosis type, unspecified whether ascites present (HCC) Jaime Carter, AWILDA-SAMPLE DISTRIBUTOR [address] [place] [address] [place] [address] Referral ID Status Reason Start Date Expiration Date Visits Requested Visits Authorized [id number] Authorized [facility]atio [facility] 01/27/2024 01/26/2025 1 1 Scheduling Instructions Appointment Information: [facility] is located at [address] [place] [address]. Please plan to arrive at least 60 [...] team will receive the patient. Please call [phone] Thursday-Thursday, 7:00am-6:00pm if you have any pre- procedural questions. If you are calling AFTER HOURS, please call [phone] to speak to the [facility] Nurse fabrication welder. If you need to cancel this appointment prior to the scheduled date, please call the Endoscopy call center at [phone] at least 48 hours before the appointment/procedure [...] Expiration Date Visits Re quested Visits Authorized [id number] Closed 01/27/2024 01/26/2025 1 1 Specialty Diagnoses / Procedures Referred By Marco Antonio whitt Referred To Contact Sleep Lab Diagnoses KELLY (obstructive sleep apnea) Procedures Home sleep apnea test (HSAT) Eduardo Ahmadi DO [address] [facility] [place] [address] Referral ID Status Reason Start Date Expiration Date V isits Requested Visits Authorized [id number] Pending Review 02/26/2024 02/25/2025 1 1 Discharge Instructions * Attachments The following attachments cannot be sent through Care Everywhere. * EGD (Upper Endoscopy): Post-op (Montserratian) * Colonoscopy: Post-op (Montserratian) * Monitored Anesthesia Care: MAC: General Info (Montserratian) * Sleep Apnea (Montserratian) documented in this encounter* Attachments The following attachments cannot be sent through Care Everywhere. * Wheezing or Bronchoconstriction (Montserratian) * Arthritis (Montserratian) * Headache: Tension (Montserratian) * Fibromyalgia (Montserratian) documented in this encounter* Discharge Instr - [...] not operate a vehicle (car, bike, motorcycle, cellular biologist) machinery or power tools. Do not make [...] to call your physician or the hospital clarifying plant operator if you have any questions, and they will be glad to assist you. documented in this encounter Hospital Course * Eli Morataya, SAMPLE DISTRIBUTOR - 12/01/2020 9:43 AM EST HOSPITALIST DISCHARGE SUMMARY Patient: Micheline Fox Account: [id number] Admitted: 11/28/2020 Discharge Date/Time: 12/01/2020 Clinical Summary [...] Family: Leticia Sylvester MD, , Address: [address] [facility] [address] Follow Up: [facility] Address: [address] [place], [place] [id number] Servicing Counties: [phone] Leticia Sylvester MD [address] [id number] Follow up Digna Enriquez DPM [address] [id number] Follow up 1 week Patient instructions, including activity, were given to the patient/family at discharge. Please seethe After Visit Summary in the medical record for details. Time spent on discharge: > 30 minutes Completed by: Eli Morataya on 12/01/20, 9:43 AM Associated attestation - Nehemias Sun MD - 12/01/2020 2:57 PM EST Patient seen, evaluated and managed by SAMPLE DISTRIBUTOR independently. I was not involved in the care of this patient, but was readily available for consultation if needed by SAMPLE DISTRIBUTOR. documented in this encounter Additional Source Comments INFORMATION SOURCE (unrecogn ized section and content) DATE CREATED AUTHOR 08/30/2018 [facility] DATE CREATED AUTHOR AUTHOR'S ORGANIZ ATION 08/08/2020 [facility] DATE CREATED AUTHOR AUTHOR'S ORGANIZ ATION 11/12/2020 [facility] DATE CREATED AUTHOR AUTHOR'S ORGANIZ ATION 10/21/2021 [facility] DATE CREATED AUTHOR AUTHOR'S ORGANIZ ATION 03/11/2023 [facility] DATE CREATED AUTHOR AUTHOR'S ORGANIZ ATION 05/21/2023 [facility] DATE CREATED AUTHOR AUTHOR'S ORGANIZ ATION 06/11/2023 [facility] DATE CREATED AUTHOR AUTHOR'S ORGANIZ ATION 12/31/2023 [facility] DATE CREATED AUTHOR AUTHOR'S ORGANIZ ATION 02/27/2024 [facility] DATE CREATED AUTHOR AUTHOR'S ORGANIZ ATION 03/02/2024 [facility] DATE CREATED AUTHOR AUTHOR'S ORGANIZ ATION 03/05/2024 [facility] DATE CREATED AUTHOR AUTHOR'S ORGANIZ ATION 03/06/2024 [facility] DATE CREATED AUTHOR AUTHOR'S ORGANIZ ATION 07/02/2024 [facility] Reason for Visit (unrecogniz ed section [...] US Abdomen Complete Julia Anderson MD [address] [place] [address] Status Reason Specialty Diagnoses / Procedures Referre d By Contact Referred To Contact Closed Radiology Diagnoses MCGOWAN (dyspnea on exertion) Procedures CT Pulmonary Arteries Giorgi Thomas MD [address] [address] Reason Comments Shortness of Breath Status Reason Specialty Diagnoses / Procedures Referre d By Contact Referred To Contact Closed Radiology Diagnoses Stomach ache Procedures CT Abdomen Pelvis Without Contrast Aleida Leal MD [address] [place] [address] Status Reason Specialty Diagnoses / Procedures Referre d By Contact Referred To Contact Closed Cardiology Diagnoses MCGOWAN (dyspnea on exertion) Procedures Echocardiogram complete Giorgi Thomas MD [address] [address] Reason Comments Nurse Consult Patient here for [...] venous legs Digna Arana DPM [address] [place] [address] Reason Comments Foot Pain Status Reason Specialty Diagnoses / Procedures Referre d By Contact Referred To Contact Diagnoses Foot pain Intractable pain Acute post-operative pain Status Reason Specialty Diagnoses / Procedures Referre d By Contact Referred To Contact Diagnoses CP/SOB Procedures HC LEFT HEART CATH Left Heart Cath Hari Acosta MD [address] [place] [address] Reason Comments Initial Visit (Intake) RECREATIONAL ASSISTANT to -[facility] w/ EKG today Chest Pain Shortness of [...] Expiration Date Visits Re quested Visits Authorized [id number] 1 1 Reason Comments CONSULT, NEW GI [...] AND COLONOSCOPY, GENERAL ANESTHESIA Jennifer Khoury MD [address] [place] [address] [employer] [address] [place] [address] Phone: [phone] Referral ID Status Reason Start Date Expiration Date Visits Re quested Visits Authorized [id number] 3 3 Reason Comments GI FOLLOW UP Reason Comments Cough Chest Congestion Nausea Diarrhea Started Thursday morni ng Reason Comments New Patient Blood in Urine Specialty Diagnoses / Procedures Referred By Contac t Referred To Contact Urology Diagnoses Hematuria, unspecified type Melanie Mooney MD [address] [place] [address] Av Delgado MD [address] [place] [id number] Referral ID Status Reason Start Date Expiration Date V isits Requested Visits Authorized [id number] New Request 09/10/2022 10/05/2023 1 1 Specialty Diagnoses / Procedures Referred By Contac t Referred To Contact Diagnoses Other microscopic hematuria Urinary frequency Procedures CT UROGRAM ABDOMEN/PELVIS W/ CT POST PROCESSING Av Delgado MD [address] [address] Referral ID Status Reason Start Date Expiration Date Visits Re quested Visits Authorized [id number] Closed 10/01/2022 10/26/2023 1 1 Reason Comments Cystoscopy Specialty Diagnoses / Procedures Referred By Contac t Referred To Contact [facility] Referral ID Status Reason Start Date Expiration Date Visits Re quested Visits Authorized [id number] 1 1 Reason Comments Leg Pain Pt reports left leg pain and rash on bilateral arms for past couple days . No known injury. No recent travels. Reason Comments Evaluation Specialty Diagnoses / Procedures Referred By Contac t Referred To Contact Vascular Surgery Diagnoses Pain in left lower leg Leticia Sylvester MD [address] [place] [address] [facility] [address] [facility] [place] [address] Referral ID Status Reason Start Date Expiration Date V isits Requested Visits Authorized [id number] Pending Review 04/01/2023 03/31/2024 1 1 Reason Comments Hypertension States was at the st ore and checked bp and it was increased. C/o of chest pain and shortness of breath since yesterday. Specialty Diagnoses / Procedures Referred By Contac t Referred To Contact Diagnoses Anxiety Hypertensive urgency Acute intractable headache, unspecified headache type Calvin Pimentel, DO [address] [place] [address] [facility] Referral ID Status Reason Start Date Expiration Date Visits Re quested Visits Authorized [id number] 1 1 Reason Comments Pain Specialty Diagnoses / Procedures Referred By Contac t Referred To Contact Diagnoses Left knee pain, unspecified chronicity Procedures XR BONE LENGTH STUDY Carol Ann Vicente MD [address] [place] [address] Referral ID Status Reason Start Date Expiration Date V isits Requested Visits Authorized [id number] New Request 08/07/2023 08/31/2024 1 1 Reason [...] (HCC) Procedures US LIVER/GALL BLADDER/PANCREAS Jaime Carter, CHIEF RADIOLOGIC TECHNOLOGIST-SAMPLE DISTRIBUTOR [address] [place] [address] [facility] [address] [place] [address] Referral ID Status Reason Start Date Expiration Date Visits Re quested Visits Authorized [id number] Closed 01/27/2024 01/26/2025 1 1 Reason Comments Establish Care Digna Downs, DO - 07/28/2019 1:21 PM Joe Booker MD - 07/29/2019 8:37 AM Digna Yi, DO - 07/28/2019 1:21 PM EST H&P Notes (unrecognized sect ion and content) Micheline Fox 1960 Encounter Diagnoses Name Primary? 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 7. The patient may use appropriate amounts of acetaminophen pre-operatively for pain management if not allergic and if no history of liver disease. 8. The patient was advised to follow the current [facility] guidelines regarding fluid intake after midnight and [...] ARB's on the morning of surgery per [facility] Anesthesia recommendations. 1. The patient is currently [...] Fox Home Medication Instructions Prior to Surgery RIVERA:[id number] Printed on:07/28/19 1321 Medication Information Take last [...] Heart Cath; Surgeon: Hari Acosta MD; Location: DENTAL ASSISTANT INSTRUCTOR; Service: Cardiovascular HERNIA REPAIR NECK SURGERY 1999 [...] file Gets together: Not on file Attends yarsanism service: Not on file Active member of [...] Micheline Fox Admit Date: [id number] MR #: [id number] : 1960 The H&P has been reviewed and the patient has been examined. I concur with the findings of the H&P. There are no significant changes. It is appropriate to proceed with the planned procedure. Joe Colón MD 07/29/2019 8:37 AM Micheline Fox 1960 Encounter Diagnoses Name Primary? 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 7. The patient may use appropriate amounts of acetaminophen pre-operatively for pain management if not allergic and if no history of liver disease. 8. The patient was advised to follow the current [facility] guidelines regarding fluid intake after midnight and [...] ARB's on the morning of surgery per [facility] Anesthesia recommendations. 1. The patient is currently [...] Fox Home Medication Instructions Prior to Surgery RIVERA:[id number] Printed on:07/28/19 1321 Medication Information Take last [...] Heart Cath; Surgeon: Hari Acosta MD; Location: DENTAL ASSISTANT INSTRUCTOR; Service: Cardiovascular HERNIA REPAIR NECK SURGERY 1999 [...] file Gets together: Not on file Attends yarsanism service: Not on file Active member of [...] Micheline Fox Admit Date: [id number] MR #: [id number] : 1960 The H&P has been reviewed and the patient has been examined. I concur with the findings of the H&P. There are no significant changes. It is appropriate to proceed with the planned procedure. Digna Enriquez DPM 11/14/2020 10:36 AM documented in this encounter [facility] Medicine Inpatient H&P 11/28/[address] [facility] Patient: Micheline Fox Date of : 1960 [...] Procedure: COLONOSCOPY; Surgeon: Joe Colón MD; [facility]; Service: Gastroenterology EGD N/A 07/29/2019 Procedure: ESOPHAGOGASTRODUODENOSCOPY; Surgeon: Joe Colón MD; [facility]; Service: Gastroenterology GASTRIC BYPASS 1996 HC LEFT HEART CATH N/A 07/08/2019 Procedure: Left Heart Cath; Surgeon: Hari Acosta MD; Location: DENTAL ASSISTANT INSTRUCTOR; Service: Cardiovascular HEEL SPUR RESECTION Right 11/14/2020 [...] Micheline Fox Admit Date: [id number] MR #: [id number] : 1960 The H&P has been reviewed and the patient has been examined. I concur with the findings of the H&P. There are no significant changes. It is appropriate to proceed with the planned procedure. Hari Acosta MD 07/08/2019 9:03 AM [facility] [address] ([address]) [facility] [address] [facility] [phone] Subjective: Micheline Fox is a 59 y.o. female seen in the office today for Chief Complaint Patient presents with Initial Visit (Intake) RECREATIONAL ASSISTANT to re-establish care w/ EKG today Chest [...] 06/22/2020 Scheduling Instructions: OK to schedule at [facility] and all ambulatory sites Fax script to: [facility]- [phone] [facility]-[phone] [facility] - [phone] Order Specific Question: Reason for Exam: Answer: [...] nized section and content) Patient Instructions for [facility]: Prior to surgery: Please contact your Surgeon's office for the scheduled time of your surgery. Report to the Surgery Family Waiting Area in the green area of [facility] 1 1/2-2 hours prior to your surgery. You may use the [employer] parking available at the Main Entrance/Blue Area of [facility] - a voucher for parking will be [...] any makeup or lotions. Remove all nail rwandan for surgeries involving extremities. Please remember to bring both your insurance card and a photo ID with you on the day of surgery. After your surgery: If you are having outpatient surgery - you must have a licensed diesel pile driver operator to take you home. The expectation is that this diesel pile driver operator will remain at the hospital for the duration of your procedure. You are advised to have a family member with you for at least 24 hours after being under Anesthesia. documented in this encounter Brief Post Operative Note Patient Name: Micheline Fox : 1960 (60 y.o.) Date of Service: 11/14/2020 CSN: [id number] Procedure(s): EXCISION HEEL SPUR RIGHT FOOT C-ARM Pre-Operative Diagnoses: * 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 Post-Operative Diagnoses:same Surgeon(s) and Role: * Digna Enriquez DPM - Primary Anesthesiologist: Aris Morales MD VAMPER: Judie Angeles CRNA Director Clinical Pharmacology: Cindy Infante RN Carpet Inspector Finished: Dalton Ceja, TECHNOLOGIST Scrub Person: Alesha Garcia [...] in detail: Patient was brought into the [facility] operating room placed on the table [...] plantar fascial ligament. Next I took a [place] elevator and identified the superior and inferior [...] determine Thank you, ANDREWS MoserN, RN Clinical Cashiers [employer] After business hours you may contact Karuna Castro at [phone] (Weekdays until 10 PM and weekends 8 [...] Dr. Morales request. documented in this encounter Carline García RN - 11/01/2019 4:46 PM Vaishnavi Choudhury RN - 11/28/2020 8:05 PM Kourtney Mendoza RN - 11/28/2020 6:55 PM Adam Cullen MD - 11/28/2020 5:17 PM EST ED Notes (unrecognized secti on and content) Pt. Informed that she cannot drive herself home. She needs a diesel pile driver operator to take her home d/t the medications [...] SHE WOULD WAIT UNTIL SHE GOES UPSTAIRS. [facility] ED Attending Note: NAME: Micheline Fox 60 y.o. CSN: [id number] PCP: Leticia Sylvester MD History: Chief Complaint: [...] Procedure: COLONOSCOPY; Surgeon: Joe Colón MD; Location: [facility]; Service: Gastroenterology EGD N/A 07/29/2019 Procedure: ESOPHAGOGASTRODUODENOSCOPY; Surgeon: Joe Colón MD; Location: [facility]; Service: Gastroenterology GASTRIC BYPASS 1996 HC LEFT HEART CATH N/A 07/08/2019 Procedure: Left Heart Cath; Surgeon: Hari Acosta MD; Location: DENTAL ASSISTANT INSTRUCTOR; Service: Cardiovascular HEEL SPUR RESECTION Right 11/14/2020 [...] file Gets together: Not on file Attends yarsanism service: Not on file Active member of [...] Procedure Abnormality Status --------- ------ CBC Auto Differential[[id number]] In process Please view results for these [...] to med/surg (regular floor) YOANA RUSS MD [facility] Emergency Department (Please note that [...] n (unrecognized section and content) Visit Type -MANAGER IN TRAINING Missed Visit Discipline -Home Health Aide Problems [...] Aide Goal:Hygiene/Safety Scheduled Visit Details Visit Type -WATER TEAM LEADER HH Missed Vi sit Discipline -Fpc Problems Problem Start Date Status Goals Interventions Assess and Instruct Home Visit Disciplines: Fpc 11/16/2020 Active 1 goal linked to scheduled/documented intervention 4 goal interventions scheduled/documented in this visit Medication Management Disciplines: Fpc 11/16/2020 Active 1 goal linked to scheduled/documented intervention 1 goal intervention scheduled/documented in this visit Pain Management Disciplines: Fpc 11/16/2020 Active 1 goal linked to scheduled/documented intervention 1 goal intervention scheduled/documented in this visit Wound Care and/or Skin Problems Disciplines: Fpc 11/16/2020 Active - 1 problem intervention scheduled/documented [...] Visit Goal:Medications Scheduled Visit Details Visit Type -MANAGER IN TRAINING Home Visi t Discipline -Home Health Aide [...] HH OASIS Star t of Care Discipline -Fpc Problems Problem Start Date Status Goals Interventions Assess and Instruct Home Visit Disciplines: Fpc 11/16/2020 Active 1 goal linked to scheduled/documented intervention 4 goal interventions scheduled/documented in this visit Genitourinary Disciplines: Fpc 11/16/2020 Active 1 goal linked to scheduled/documented intervention 1 goal intervention scheduled/documented in this visit Medication Management Disciplines: Fpc 11/16/2020 Active 1 goal linked to scheduled/documented intervention 1 goal intervention scheduled/documented in this visit Pain Management Disciplines: Fpc 11/16/2020 Active 1 goal linked to scheduled/documented intervention 1 goal intervention scheduled/documented in this visit Wound Care and/or Skin Problems Disciplines: Fpc 11/16/2020 Active - 1 problem intervention scheduled/documented [...] certainly not maintained. Visit Details Visit Type -SANDING SUPERVISOR Routine Visi t Discipline -Physical Therapy Problems [...] Instruct Home Visit Goal:Home Care Plan Completed SANDING SUPERVISOR reviews fall prevention techniques with patient to [...] Problem:Assess and Instruct Home Visit Goal:Pain Completed SANDING SUPERVISOR reviews pain management techniques with patient to [...] causes extra discomfort and difficulty with breathing. SANDING SUPERVISOR suggests utilizing 4ww this date to improve ease and safety with daily mobility in home, patient verbalizes understanding. Visit Details Visit Type -SANDING SUPERVISOR Missed Visit Discipline -Physical Therapy Visit Details [...] Details Visit Type -SN Missed Visit Discipline -Fpc Interventions Intervention Associated Problem/Goal Status Variance Visit [...] Interventions Assess and Instruct Home Visit Disciplines: Fpc 11/16/2020 Active 1 goal linked to scheduled/documented intervention 4 goal interventions scheduled/documented in this visit Medication Management Disciplines: Fpc 11/16/2020 Active 1 goal linked to scheduled/documented intervention 1 goal intervention scheduled/documented in this visit Pain Management Disciplines: Fpc 11/16/2020 Active 1 goal linked to scheduled/documented intervention 1 goal intervention scheduled/documented in this visit Wound Care and/or Skin Problems Disciplines: Fpc 11/16/2020 Active - 1 problem intervention scheduled/documented [...] HH OASIS Resu mption of Care Discipline -Fpc Problems Problem Start Date Status Goals Interventions Assess and Instruct Home Visit Disciplines: Fpc 11/16/2020 Active 1 goal linked to scheduled/documented intervention 4 goal interventions scheduled/documented in this visit Genitourinary Disciplines: Fpc 11/16/2020 Active 1 goal linked to scheduled/documented intervention 1 goal intervention scheduled/documented in this visit Medication Management Disciplines: Fpc 11/16/2020 Active 1 goal linked to scheduled/documented intervention 1 goal intervention scheduled/documented in this visit Pain Management Disciplines: Fpc 11/16/2020 Active 1 goal linked to scheduled/documented intervention 1 goal intervention scheduled/documented in this visit Wound Care and/or Skin Problems Disciplines: Fpc 11/16/2020 Active - 2 problem interventions scheduled/documented [...] applying the boot, or get her food. sock turner already involved Narratives complete sponge bath done. [...] aware Actions Phone call to [facility] due to emotional health concerns. Left VM requesting return call. Actions Pt has FWB granted to her, c an get foot wet and can wear a sandal in the house only. No signs of infection. She is ready to get into the shower with INDUSTRIAL ELECTRICIAN JOURNEYMAN's help this week. Actions Missed Visit. Multiple [...] indicates the patient was receiving services from [facility] prior to admission. Notify home health care completed. Notified Sully Goyal RN, and Tiff Combs RN with [facility] of the patient's admission. Per charting, the [...] Services: Home health care Current Agency Name: [facility] Anticipated Home Care Needs: Home health care Anticipated Facility Type: Home care Anticipated Discharge Plan Anticipated Home Care Needs: Home health care Anticipated Facility Type: Home care documented in this encounter Care Teams (unrecognized sec tion and content) Leasing Director Relationship Specialty Start Date End Date Leticia Sylvester MD [address] [place] [address] PCP - General Internal Medicine 05/30/16 Leasing Director Relationship Specialty Start Date End Date Leticia Sylvester MD PCP - General Internal Medicine 09/16/13 Leasing Director Relationship Specialty Start Date End Date Lupillo Ocampo MD [address] [place] [address] [place] [address] Physician Gastroenterology 06/26/20 Jaime Carter APRN-SAMPLE DISTRIBUTOR [address] [place] [address] [place] [address] INSTRUCTOR WEAVING Gastroenterology 11/23/20 Leasing Director Relationship Specialty Start Date [place] [address] PCP - General 04/23/22 Lupillo Ocampo MD [address] [place] [address] [place] [address] Physician Gastroenterology 06/26/20 Jaime Carter, CHIEF RADIOLOGIC TECHNOLOGIST-SAMPLE DISTRIBUTOR [address] [place] [address] [place] [address] INSTRUCTOR WEAVING Gastroenterology 11/23/20 Leasing Director Relationship Specialty Start Date End Date Leticia Sylvester [address] [place] [address] PCP - General 04/23/22 Lupillo Ocampo MD [address] [place] [address] [place] [address] Physician Gastroenterology 06/26/20 Jaime Carter, CHIEF RADIOLOGIC TECHNOLOGIST-SAMPLE DISTRIBUTOR [address] [place] [address] [place] [address] INSTRUCTOR WEAVING Gastroenterology 11/23/20 Leasing Director Relationship Specialty Start Date End Date Leticia Sylvester [address] [place] [address] PCP - General 04/23/22 Lupillo Ocampo MD [address] [place] [address] [place] [address] Physician Gastroenterology 06/26/20 Jaime Carter APRN-SAMPLE DISTRIBUTOR [address] [place] [address] [place] [address] INSTRUCTOR WEAVING Gastroenterology 11/23/20 Leasing Director Relationship Specialty Start [place] [address] PCP - General 04/23/22 Lupillo Ocampo MD [address] [place] [address] [place] [address] Physician Gastroenterology 06/26/20 Jaime Carter APRN-SAMPLE DISTRIBUTOR [address] [place] [address] [place] [address] INSTRUCTOR WEAVING Gastroenterology 11/23/20 Leasing Director Relationship Specialty Start Date End Date Leticia Sylvester [address] [place] [address] PCP - General 04/23/22 Lupillo Ocampo MD [address] [place] [address] [place] [id number] Physician Gastroenterology 06/26/20 Jaime Carter APRN-SAMPLE DISTRIBUTOR [address] [place] [address] [place] [id number] INSTRUCTOR WEAVING Gastroenterology 11/23/20 Leasing Director Relationship Specialty Start Date End Date Leticia Sylvester [address] [place] [address] PCP - General 04/23/22 Lupillo Ocampo MD [address] [place] [address] [place] [id number] Physician Gastroenterology 06/26/20 Jaime Carter APRN-SAMPLE DISTRIBUTOR [address] [place] [address] [place] [address] INSTRUCTOR WEAVING Gastroenterology 11/23/20 Leasing Director Relationship Specialty Start Date [place] [address] PCP - General 04/23/22 Lupillo Ocampo MD [address] [place] [address] [place] [address] Physician Gastroenterology 06/26/20 Jaime Carter, CHIEF RADIOLOGIC TECHNOLOGIST-SAMPLE DISTRIBUTOR [address] [place] [address] [place] [address] INSTRUCTOR WEAVING Gastroenterology 11/23/20 Eusebia Jones CHIEF RADIOLOGIC TECHNOLOGIST-SAMPLE DISTRIBUTOR [address] [place] [address] [place] [address] INSTRUCTOR WEAVING Gastroenterology 04/26/22 Leasing Director Relationship Specialty Start [place] [address] PCP - General 04/23/22 Lupillo Ocampo MD [address] [place] [address] [place] [address] Physician Gastroenterology 06/26/20 Jaime Carter, CHIEF RADIOLOGIC TECHNOLOGIST-SAMPLE DISTRIBUTOR [address] [place] [address] [place] [id number] INSTRUCTOR WEAVING Gastroenterology 11/23/20 Eusebia Jones, CHIEF RADIOLOGIC TECHNOLOGIST-SAMPLE DISTRIBUTOR [address] [place] [address] [place] [address] INSTRUCTOR WEAVING Gastroenterology 04/26/22 Leasing Director Relationship Specialty Start Date [place] [address] PCP - General 04/23/22 Lupillo Ocampo MD [address] [place] [address] [place] [address] Physician Gastroenterology 06/26/20 Jaime Carter APRN-SAMPLE DISTRIBUTOR [address] [place] [address] [place] [id number] INSTRUCTOR WEAVING Gastroenterology 11/23/20 Eusebia Jones APRN-SAMPLE DISTRIBUTOR [address] [facility] [place] [address] INSTRUCTOR WEAVING Gastroenterology 04/26/22 Leasing Director Relationship Specialty Start Date End Date [facility] Sdsukumar [address] [place] [address] PCP - General 04/23/22 Lupillo Ocampo MD [address] [place] [address] [place] [address] Physician Gastroenterology 06/26/20 Jaime Carter APRN-SAMPLE DISTRIBUTOR [address] [place] [address] [place] [address] INSTRUCTOR WEAVING Gastroenterology 11/23/20 Eusebia Jones, CHIEF RADIOLOGIC TECHNOLOGIST-SAMPLE DISTRIBUTOR [address] [place] [address] [place] [address] INSTRUCTOR WEAVING Gastroenterology 04/26/22 Leasing Director Relationship Specialty Start Date End Date Leticia Sylvester [address] [place] [address] PCP - General 04/23/22 Lupillo Ocampo MD [address] [place] [address] [place] [address] Physician Gastroenterology 06/26/20 Jaime Carter APRN-SAMPLE DISTRIBUTOR [address] [place] [address] [place] [id number] INSTRUCTOR WEAVING Gastroenterology 11/23/20 Eusebia Jones APRN-SAMPLE DISTRIBUTOR [address] [place] [address] [place] [id number] INSTRUCTOR WEAVING Gastroenterology 04/26/22 Leasing Director Relationship Specialty Start Date End Date Leticia [address] [place] [address] PCP - General 04/23/22 Lupillo Ocampo MD [address] [place] [address] [place] [address] Physician Gastroenterology 06/26/20 Jaime Carter, CHIEF RADIOLOGIC TECHNOLOGIST-SAMPLE DISTRIBUTOR [address] [place] [address] [place] [address] INSTRUCTOR WEAVING Gastroenterology 11/23/20 Eusebia Jones CHIEF RADIOLOGIC TECHNOLOGIST-SAMPLE DISTRIBUTOR [address] [place] [address] [place] [id number] INSTRUCTOR WEAVING Gastroenterology 04/26/22 Leasing Director Relationship Specialty Start Date End Date Leticia Sylvester [address] [place] [address] PCP - General 04/23/22 Lupillo Ocampo MD [address] [place] [address] Physician Gastroenterology 06/26/20 Jaime Carter, CHIEF RADIOLOGIC TECHNOLOGIST-SAMPLE DISTRIBUTOR [address] [place] [address] INSTRUCTOR WEAVING Gastroenterology 11/23/20 Eusebia Jones, CHIEF RADIOLOGIC TECHNOLOGIST-SAMPLE DISTRIBUTOR [address] [place] [address] [place] [address] INSTRUCTOR WEAVING Gastroenterology 04/26/22 Leasing Director Relationship Specialty Start Date End Date Leticia Sylvester MD PCP - General Internal Medicine 09/16/13 Leasing Director Relationship Specialty Start Date End Date Higinio Leticia [address] [place] [address] PCP - General 04/23/22 Lupillo Ocampo MD [address] [facility] [place] [address] Physician Gastroenterology 06/26/20 Jaime Carter, CHIEF RADIOLOGIC TECHNOLOGIST-SAMPLE DISTRIBUTOR [address] [facility] [place] [address] INSTRUCTOR WEAVING Gastroenterology 11/23/20 Eusebia Jones, CHIEF RADIOLOGIC TECHNOLOGIST-SAMPLE DISTRIBUTOR [address] [facility] [place] [address] INSTRUCTOR WEAVING Gastroenterology 04/26/22 Leasing Director Relationship Specialty Start Date End Date Leticia Sylvester MD PCP - General Internal Medicine 09/16/13 Leasing Director Relationship Specialty Start Date End Date Leticia Sylvester MD PCP - General Internal Medicine 09/16/13 Leasing Director Relationship Specialty Start Date End Date Leticia Sylvester MD PCP - General Internal Medicine 09/16/13 Leasing Director Relationship Specialty Start Date End Date Leticia Sylvester MD PCP - General Internal Medicine 09/16/13 Leasing Director Relationship Specialty Start Date End Date Leticia Sylvester MD [address] [facility] [place] [address] PCP - General Internal Medicine 05/30/16 Ishaan Raines MD [address] [facility] [place] [address] Surgeon Vascular Surgery 04/17/23 Leasing Director Relationship Specialty Start Date End Date Leticia Sylvester MD PCP - General Internal Medicine 09/16/13 Leasing Director Relationship Specialty Start Date End Date Leticia Sylvester MD [address] [facility] [place] [id number] PCP - General Internal Medicine 05/30/16 Ishaan Raines MD [address] [facility] [place] [id number] Surgeon Vascular Surgery 04/17/23 Leasing Director Relationship Specialty Start Date End Date Leticia Sylvester [address] [place] [address] PCP - General 04/23/22 Lupillo Ocampo MD [address] [facility] [place] [address] Physician Gastroenterology 06/26/20 Jaime Crater, CHIEF RADIOLOGIC TECHNOLOGIST-SAMPLE DISTRIBUTOR [address] [facility] [place] [address] INSTRUCTOR WEAVING Gastroenterology 11/23/20 Eusebia Jones, CHIEF RADIOLOGIC TECHNOLOGIST-SAMPLE DISTRIBUTOR [address] [facility] [place] [address] INSTRUCTOR WEAVING Gastroenterology 04/26/22 Leasing Director Relationship Specialty Start Date End Date Leticia Sylvester MD [address] [address] PCP - General Internal Medicine 06/02/23 Leasing Director Relationship Specialty Start Date End Date Leticia Sylvester MD [address] [facility] [place] [address] PCP - General Internal Medicine 05/30/16 Ishaan Raines MD [address] [place] [address] Surgeon Vascular Surgery 04/17/23 Leasing Director Relationship Specialty Start Date End Date Leticia Sylvester MD [address] [place] [address] PCP - General Internal Medicine 06/02/23 Leasing Director Relationship Specialty Start Date End Date Leticia Sylvester [address] [place] [address] PCP - General 04/23/22 Lupillo Ocampo MD [address] [place] [address] [place] [address] Physician Gastroenterology 06/26/20 aJime Carter APRN-SAMPLE DISTRIBUTOR [address] [facility] [place] [address] INSTRUCTOR WEAVING Gastroenterology 11/23/20 Eusebia Jones APRN-SAMPLE DISTRIBUTOR [address] [facility] [place] [address] INSTRUCTOR WEAVING Gastroenterology 04/26/22 Leasing Director Relationship Specialty Start Date End Date Leticia Sylvester [address] [place] [address] PCP - General 04/23/22 Lupillo Ocampo MD [address] [facility] [place] [address] Physician Gastroenterology 06/26/20 Jaime Carter APRN-SAMPLE DISTRIBUTOR [address] [facility] [place] [address] INSTRUCTOR WEAVING Gastroenterology 11/23/20 Eusebia Jones APRN-CNP [address] [place] [address] [place] [address] INSTRUCTOR WEAVING Gastroenterology 04/26/22 Leasing Director Relationship Specialty Start Date End Date Leticia Sylvester [address] [place] [address] PCP - General 04/23/22 Lupillo Ocampo MD [address] [place] [address] [place] [address] Physician Gastroenterology 06/26/20 Jaime Carter APRN-CNP [address] [place] [address] [place] [address] INSTRUCTOR WEAVING Gastroenterology 11/23/20 Eusebia Jones APRN-SAMPLE DISTRIBUTOR [address] [place] [address] [place] [address] INSTRUCTOR WEAVING Gastroenterology 04/26/22 Leasing Director Relationship Specialty Start Date End Date Leticia Sylvester [address] [place] [address] PCP - General 04/23/22 Lupillo Ocampo MD [address] [place] [address] [place] [address] Physician Gastroenterology 06/26/20 Jaime Carter APRN-CNP [address] [place] [address] [place] [address] INSTRUCTOR WEAVING Gastroenterology 11/23/20 Eusebia Jones APRN-SAMPLE DISTRIBUTOR [address] [place] [address] [place] [address] INSTRUCTOR WEAVING Gastroenterology 04/26/22 Leasing Director Relationship Specialty Start Date End Date Leticia Sylvester [address] [place] [address] PCP - General 04/23/22 Lupillo Ocampo MD [address] [place] [address] [place] [address] Physician Gastroenterology 06/26/20 Jaime Carter APRN-SAMPLE DISTRIBUTOR [address] [place] [address] [place] [address] INSTRUCTOR WEAVING Gastroenterology 11/23/20 Eusebia Jones APRN-SAMPLE DISTRIBUTOR [address] [place] [address] [place] [address] INSTRUCTOR WEAVING Gastroenterology 04/26/22 Leasing Director Relationship Specialty Start Date End Date Leticia Sylvester [address] [place] [address] PCP - General 04/23/22 Lupillo Ocampo MD [address] [place] [address] [place] [address] Physician Gastroenterology 06/26/20 Jaime Carter APRN-SAMPLE DISTRIBUTOR [address] [place] [address] [place] [address] INSTRUCTOR WEAVING Gastroenterology 11/23/20 Eusebia Jones APRN-SAMPLE DISTRIBUTOR [address] [place] [address] [place] [address] INSTRUCTOR WEAVING Gastroenterology 04/26/22 Leasing Director Relationship Specialty Start Date End Date Leticia Sylvester [address] [place] [address] PCP - General 04/23/22 Lupillo Ocampo MD [address] [facility] [place] [address] Physician Gastroenterology 06/26/20 Jaime Carter, CHIEF RADIOLOGIC TECHNOLOGIST-SAMPLE DISTRIBUTOR [address] [facility] [place] [address] INSTRUCTOR WEAVING Gastroenterology 11/23/20 Eusebia Jones CHIEF RADIOLOGIC TECHNOLOGIST-SAMPLE DISTRIBUTOR [address] [facility] [place] [address] INSTRUCTOR WEAVING Gastroenterology 04/26/22 Leasing Director Relationship Specialty Start Date End Date Eduardo Ahmadi GalenDO [address] [facility] [place] [address] PCP - General Internal Medicine 02/26/24 Scheduled [...] Oral, ONCE, 1 dose, On Thu02/16/23 at 1840 1817 (Given - Provid er: Andrade Ramos RN) dexAMETHasone (DECADRON) injection 10 mg (COMPLETED) 10 mg, Intravenous, ONCE, 1 dose, On Thu02/16/23 at 1845 1817 (Given - Provid er: Andrade Ramos RN) HYDROmorphone (DILAUDID) injection 0.5 mg (COMPLETED) 0.5 mg, Intravenous, ONCE, 1 dose, On Thu02/16/23 at 1843 1818 (Given - Provid er: Andrade Ramos [...] BE BASED ON THE PRIMARY CLINICAL RECORDS. [facility]. provides no warranty or guarantee of the accuracy or completeness of information in this document.
[2024-07-11 01:14] VITALS: BMI 37.5
[2024-07-11 01:30] VITALS: BP 120/83; PULSE 74; RESP 18; TEMP 36.6; O2SAT 97
[2024-07-11] MEDS: KCL 20MEQ in 0.9% NS 20 MEQ/1,000 ML IV.SOLN. 70 MEQ IV (02:50)
[2024-07-11 03:00] LABS: Alcohol, Blood (Medical)-Serum < 3.0 mg/dL; Ammonia < 10.0 umol/L (11-32)
[2024-07-11] MEDS: Propranolol 40 MG Tablet 60 MG PO ×2 (05:46→20:55)
[2024-07-11 08:37] VITALS: BP 96/66; PULSE 71; RESP 16; TEMP 36.8; O2SAT 93
[2024-07-11] MEDS: Smz/Tmp Ds Tablet 1 TABLET PO ×2 (08:45→18:09)
[2024-07-11] MEDS: Venlafaxine XR 75 MG Capsule PO (08:45)
[2024-07-11] MEDS: Enoxaparin 40 MG/0.4 ML Syringe SC (08:45)
[2024-07-11] MEDS: Ondansetron 4 MG/2 ML Vial IV (08:52)
[2024-07-11] MEDS: 0.9% Saline Lock 10 ML Syringe IV ×2 (08:53→18:10)
[2024-07-11 09:58] LABS: Vitamin B12 328 pg/mL (211-911)
--- NOTE | 2024-07-11 11:31 | PN.HOSP_ITS ---
Reason for Visit Reason for Visit: Diagnoses Obesity, unspecified (07/11/24) Dehydration (07/11/24) Hypokalemia (07/11/24) Psychophysiologic insomnia (07/11/24) Sleep apnea, unspecified (07/11/24) Disorientation, unspecified (07/11/24) Weakness (07/11/24) Personal history of other diseases of the digestive system (07/11/24) Subjective Subjective Over the past year, daughter has noted a dramatic behavior change in the patient: more confused, more paranoid. Additionally, she has been more weak with falls. Previously patient was independent. Objective Data Objective Data Vital Signs: Vital Signs Temp Pulse Resp BP Pulse Ox O2 Del Method 36.8 C 71 16 96/66 93 Room Air 07/11/24 08:37 07/11/24 08:37 07/11/24 08:37 07/11/24 08:37 07/11/24 08:37 07/11/24 09:38 Oxygen Delivery Method Room Air Weight: 102.5 kg Body Mass Index (BMI) 37.5 Lab / Micro Data 07/11/24 12:47 07/11/24 12:47 Labs: Laboratory Results - last 24 hr 07/10/24 20:45: WBC 8.7, RBC 4.49, Hgb 15.1 H, Hct 41.5, MCV 92.4, MCH 33.6 H, M CHC 36.4 H, RDW Std Deviation 56.1 H, RDW Coeff of Xavier 16.7 H, Plt Count 128 L, MPV 11.6, Immature Gran % (Auto) 0.300, Neut % (Auto) 75.6 H, Lymph % (Auto) 17.3 L, [place] % (Auto) 5.4, Eos % (Auto) 0.9, Baso % (Auto) 0.5, Absolute Neuts (auto) 6.6, Absolute Lymphs (auto) 1.50, Nucleated RBC % 0, Sodium 137, P otassium 2.7 L*, Chloride 99, Carbon Dioxide 26.0, Anion Gap 12, BUN 20 H, C reatinine 1.38 H, Estim Creat Clear Calc 50.54, Est GFR (MDRD) Af Amer 50 L, Est GFR (MDRD) Non-Af 41 L, BUN/Creatinine Ratio 14.5, Glucose 95, Calcium 9.6, Magnesium 2.3, Total Bilirubin 2.10 H, AST 38 H, ALT 31, Alkaline Phosphatase 92, Ammonia 14.0, Total Protein 6.8, Albumin 3.8, Globulin 3.0, Albumin/Globulin Ratio 1.3, Ethyl Alcohol < 3.0 07/10/24 21:35: Urine Color Yellow, Urine Clarity Cloudy, Urine pH 7.0, Ur Specific [place] 1.010, Urine Protein 15 H, Urine Glucose (UA) Normal, Urine Ketones 15 H, Urine Occult Blood Negative, Urine Nitrite Negative, Urine Bilirubin 1 H, Urine Urobilinogen 4 H, Ur Leukocyte Esterase 25 H, Urine RBC 0 SEEN, Urine WBC 0-5 SEEN, Ur Squamous Epith Cells 0-5 SEEN, Amorphous Sediment 2+, Urine Bacteria 1+, Urine Mucus 0 SEEN, Urine Opiates Screen NEGATIVE, Urine Methadone Screen NEGATIVE, Ur Barbiturates Screen NEGATIVE, Ur Phencyclidine Scrn NEGATIVE, Ur Amphetamines Screen NEGATIVE, MDMA (Ecstasy) Screen NEGATIVE, U Benzodiazepines Scrn POSITIVE H, Urine Cocaine Screen NEGATIVE, U Cannabinoids Screen NEGATIVE, Ur Drug Screen Comment 07/11/24 02:25: Ammonia < 10.0 L, Vitamin B12 328, Folate 1.80 L, TSH 4.120 H, Ethyl Alcohol < 3.0 Radiography Diagnostic Testing: Radiology Impression Brain CT 07/10/24 19:16 IMPRESSION: There are no acute findings. Chronic involutional changes of the brain. Electronically Signed: Adonay West MD at 20:41 EDT , Cervical Spine CT 07/10/24 19:16 IMPRESSION: (NOT LISTED IN ORDER OF SIGNIFICANCE) Surgical fusion. Degenerative changes of the unfused vertebra. Electronically Signed: Adonay West MD at 20:59 EDT , Pelvis X-Ray 07/10/24 19:27 IMPRESSION: No evidence of displaced pelvic fracture. Electronically Signed: Adonay West MD at 20:39 EDT , Chest X-Ray 07/10/24 20:00 IMPRESSION: There are no acute findings. Electronically Signed: Adonay West MD at 20:40 EDT , Physical Exam Const alert, oriented x3 and no apparent distress HEENT head/scalp atraumatic and moist oral mucous membranes Eyes PERRL and EOMs intact bilaterally Eyes Narrative: no icterus Neck no lymphadenopathy and supple Resp normal respiratory effort and no retractions Extremity normal to inspection and full ROM Neuro moves all extremities Neuro Narrative: no clonus Sensorium / Orientation: awake Psych affect normal Assessment & Plan Assessment/Plan (1) Hypokalemia: (2) Altered mental status: QUALIFIERS: Altered mental status type: delirium Qualified Code(s): R41.0 - Disorientation, unspecified (3) Dehydration: (4) Generalized weakness: (5) Obesity (BMI 30-39.9): (6) Sleep apnea: QUALIFIERS: Sleep apnea type: unspecified type Qualified Code(s): G47.30 - Sleep apnea, unspecified (7) History of cirrhosis: (8) Chronic insomnia: PLAN: Plan Hypokalemia * 2.7 on admission. Replace. Will require PICC give poor IV access. Encephalopathy * ammonia less than 10. Alcohol level negative * daughter has noted progressive slip box changer the past year. * minimize potentiating medications (wean diazepam over several weeks) * MRI brain negative. * unclear if patient has dementia v psychogenic. * Consult neurology for additional input. Folate deficiency * on IV folate * low likelihood of contributing to encephalopathy Chronic conditions: * insomnia: avoid Zolpidem. On [facility]ARRS review, patient has not received this since December 2023 * Recent admission to a psychiatric facility in [place], [place] - where she subsequently signed herself out after ~3 days adding to the medical complexity of #1 - #5 - Noted. 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 * Essential hypertension continue propranolol VTE prophylaxis: LMWH Charges/Coding Visit Charges Inpatient E&M: 51016 Subs Hosp L2
--- NOTE | 2024-07-11 13:00 | CM.ED ---
Social Work Handoff received from Weekend ED home support worker for Adult Protective Service referral due to self neglect. Chart reviewed and noted patient has been admitted to [facility] for issues related to hypokalemia, weakness, dehydration. Called [facility] Adult protective Services at [phone] and spoke with Jasmina in the intake department. Referral provided from chart review of ED SW, provider, and nursing notes. Jasmina will document call and concerns, though at this time patient is in a safe environment at the hospital. Jasmina asked to be called back as discharge plans are being discussed, or disposition known for reconsideration of need to open referral. Verbal Handoff to Acute SW VALERIO العراقي
--- NOTE | 2024-07-11 13:03 | MRI_ITS ---
EXAM: MR HEAD WITHOUT INTRAVENOUS CONTRAST CLINICAL INDICATION: encephalopathy TECHNIQUE: Multiplanar and multisequence MR images of the brain were obtained without intravenous contrast. COMPARISON: No relevant prior studies available. FINDINGS: BRAIN AND EXTRA-AXIAL SPACES: Increased T2 signal intensity within the cerebral white matter suggestive of chronic microvascular change. No intra- or extra-axial hemorrhage. No evidence of acute infarct. No intracranial mass or mass effect. Normal preservation of the barth/white matter interface. Posterior fossa structures are unremarkable. Ventricles are appropriate for age. No hydrocephalus. Basal cisterns are patent. SELLA: Normal. Normal sella turcica, pituitary gland, infundibular stalk, optic chiasm and hypothalamus. AUDITORY SYSTEM: Normal. The internal auditory canals are patent. BONES/JOINTS: Intact calvarium. SINUSES: Unremarkable as visualized. Clear. MASTOID AIR CELLS: Clear. ORBITS: Unremarkable as visualized. Both globes, extraocular muscles, optic nerves and retrobulbar fat appear unremarkable. VASCULATURE: Unremarkable as visualized. Normal flow voids in the major intracranial circulation. MRI/Brain without Contrast IMPRESSION: No acute intracranial abnormality. Chronic microvascular changes. Electronically Signed: Haseeb May MD at 16:25 EDT ,
[2024-07-11] MEDS: Folic Acid 1 MG in 0.9% Normal Saline (50mL Bag) 50 ML 200 MG IV (13:04)
[2024-07-11 13:09] LABS: Absolute Lymphocyte Count 0.98 X10^3/uL (0.83-4.51); Absolute Neutrophil Count 5.8 X10^3/uL (2.0-7.7); Basophil# 0.04 X10^3/uL; Basophil% 0.6 % (0-1); Eosinophil# 0.09 X10^3/uL; Eosinophils% 1.2 % (0-5); Hematocrit 39.3 % (37-47); Hemoglobin 13.9 g/dL (12.0-15.0); Lymphocyte # 0.98 X10^3/ul (0.83-4.51); Lymphocyte % 13.5 % (19-41); Mean Corp Hgb Conc 35.4 g/dL (32-36); Mean Corpuscular Hgb 33.8 pg (27.0-32.0); Mean Corpuscular Volume 95.6 fL (81-99); Mean Platelet Vol. 11.8 fl (6.2-12.0); Monocyte# 0.33 X10^3/uL; Monocyte% 4.5 % (0-10); NRBC Flagged by Analyzer 0 % (0-5); Neutrophil % 79.9 % (47-70); Platelet Count 126 K/mm3 (150-450); RBC Distribution Width CV 17.1 % (11.6-14.6); RBC Distribution Width SD 59.8 fl (35.1-43.9); Red Blood Count 4.11 M/mm3 (4.2-5.4); White Blood Count 7.3 K/mm3 (4.4-11.0)
[2024-07-11 13:31] LABS: ALB/GLOB Ratio 1.1 RATIO (0.9-2.4); AST(SGOT) 36 U/L (15-37); Alanine Aminotransfer ALT/SGPT 34 U/L (13-56); Albumin, Serum 3.4 g/dL (3.2-5.0); Alkaline Phosphatase 84 U/L (45-117); Anion Gap 4 (5-15); BUN 21 mg/dL (7-18); BUN/Creat Ratio 16.4 RATIO (10-20); Calcium,Total 9.3 mg/dL (8.5-10.1); Chloride 104 mmol/L (98-107); Creatinine, Serum 1.28 mg/dL (0.55-1.02); EST Glomerular Filtration Rate 45 mL/min (>60); Est Glom Filt Rate - Afr Amer 54 mL/min (>60); Estimated Creatinine Clearance 53.41 ml/min; Glucose 115 mg/dL (74-106); Magnesium 2.3 mg/dL (1.6-2.6); Phosphorus 3.4 mg/dL (2.5-4.9); Potassium 3.2 mmol/L (3.5-5.1); Protein, Total 6.4 g/dL (6.4-8.2); Sodium Level 138 mmol/L (136-145)
[2024-07-11 13:34] LABS: T4 Free Direct 1.15 ng/dL (0.76-1.46)
--- NOTE | 2024-07-11 14:17 | CASEMGMT ---
Social Work This SW met with patient to complete SDOH. Patient stated that she does require assistance at home including help cleaning her apartment, getting to some of her appointments and running out of food before she has money to purchase more. Information provided that includes transportation services, food villan[place]va and cleaning services through [place] [facility]. Patient also stated that she did not feel that she was able to take care of herself at home at this time, however concerned about going to SNF due to her age. Daughter, Rocio, entered room during conversation and agrees with patient that she needs to go to a SNF for rehabilitation. A list of SNF providers including quality and resource use data and consistent with the patient's preferred geographic region, medical needs, and insurance network was created in [facility].? This list was provided to the patient and daughter. They will review list and let SW know what facilities they would like referrals sent to. Shelley Maddox,PROPERTY AND EQUIPMENT CLERK, RENTAL SALES AGENT
--- NOTE | 2024-07-11 14:18 | CASEMGMT ---
Discharge Planning A list of?SNF providers including quality and resource use data and consistent with the patient's preferred geographic region, medical needs, and insurance network was created in [facility].? This list was provided to the SW. Annalee Velazquez Discharge Planning Asst.
[2024-07-11 15:05] VITALS: BP 113/80; PULSE 67; RESP 17; TEMP 36.6; O2SAT 96
[2024-07-11 20:53] VITALS: BP 108/73; PULSE 74; RESP 16; TEMP 36.6; O2SAT 100
[2024-07-11] MEDS: Atorvastatin Calcium 40 MG Tablet PO (20:55)
[2024-07-11] MEDS: traZODone 100 MG Tablet PO (20:55)
[2024-07-11] MEDS: diazePAM 5 MG Tablet PO (23:15)
[2024-07-11] MEDS: Senna Tablet 2 TABLET PO (23:15)
[2024-07-12 03:00] VITALS: BP 99/63; PULSE 72; RESP 16; TEMP 36.8; O2SAT 95
[2024-07-12 03:31] VITALS: BMI 38.2
[2024-07-12 05:27] VITALS: BP 103/70; PULSE 74; RESP 18; TEMP 36.2; O2SAT 95
[2024-07-12] MEDS: 0.9% Saline Lock 10 ML Syringe IV ×4 (05:29→16:54)
[2024-07-12 06:19] LABS: Anion Gap 6 (5-15); BUN 23 mg/dL (7-18); BUN/Creat Ratio 17.8 RATIO (10-20); Calcium,Total 8.6 mg/dL (8.5-10.1); Chloride 106 mmol/L (98-107); Creatinine, Serum 1.29 mg/dL (0.55-1.02); EST Glomerular Filtration Rate 44 mL/min (>60); Est Glom Filt Rate - Afr Amer 54 mL/min (>60); Estimated Creatinine Clearance 53.44 ml/min; Glucose 100 mg/dL (74-106); Potassium 2.9 mmol/L (3.5-5.1); Sodium Level 140 mmol/L (136-145)
[2024-07-12 08:23] VITALS: O2SAT 98
--- NOTE | 2024-07-12 09:42 | CASEMGMT ---
Social Work This SW called patients daughter, Rocio, to see if her and patient had decided on SNF choices. Daughter states that they would like referral sent to TCU first. Same done, TCU unable to accept. Second choice is [facility] in [place]. BRANDON Mantilla, to send referral. Shelley Maddox, ADJUNCT PROFESSOR OF [employer] HISTORY, ELECTRONICS MANUFACTURER
--- NOTE | 2024-07-12 09:51 | CASEMGMT ---
Addendum entered by Annalee Velazquez 07/13/24 09:02: Updates sent to CC. Annalee Velazquez DC Planning Asst. Addendum entered by Annalee Velazquez 07/12/24 12:04: Msg sent to CC requesting that precert be started. Annalee Velazquez DC Planning Asst. Addendum entered by Annalee Velazquez 07/12/24 11:44: [facility] has accepted. updated. Annalee Velazquez DC Planning Asst. Original Note: Discharge Planning [facility] Annalee Velazquez DC Planning Asst.
[2024-07-12 09:57] VITALS: BP 104/64; PULSE 66; RESP 14; TEMP 36.6; O2SAT 96
[2024-07-12] MEDS: Enoxaparin 40 MG/0.4 ML Syringe SC (10:07)
[2024-07-12] MEDS: Venlafaxine XR 75 MG Capsule PO (10:07)
[2024-07-12] MEDS: Ensure Plus High Protein 120 ML LIQUID PO ×3 (10:11→16:57)
[2024-07-12] MEDS: Folic Acid 1 MG in 0.9% Normal Saline (50mL Bag) 50 ML 200 MG IV (10:16)
--- NOTE | 2024-07-12 10:20 | PN.HOSP_ITS ---
Reason for Visit Reason for Visit: Diagnoses Obesity, unspecified (07/11/24) Dehydration (07/11/24) Hypokalemia (07/11/24) Psychophysiologic insomnia (07/11/24) Sleep apnea, unspecified (07/11/24) Disorientation, unspecified (07/11/24) Weakness (07/11/24) Personal history of other diseases of the digestive system (07/11/24) Objective Data Objective Data Vital Signs: Vital Signs Temp Pulse Resp BP Pulse Ox O2 Del Method 36.6 C 66 14 104/64 96 Room Air 07/12/24 09:57 07/12/24 09:57 07/12/24 09:57 07/12/24 09:57 07/12/24 09:57 07/12/24 09:57 Oxygen Delivery Method Room Air Weight: 104.1 kg Body Mass Index (BMI) 38.2 Intake & Output: Intake and Output for Last 24 Hours 07/10/24 07/11/24 07/12/24 23:59 23:59 23:59 Intake Total 1050.2 / 1050.2 Output Total 150 / 150 Balance 900.2 / 900.2 Lab / Micro Data 07/11/24 12:47 07/12/24 05:45 Labs: Laboratory Results - last 24 hr 07/11/24 12:47: WBC 7.3, RBC 4.11 L, Hgb 13.9, Hct 39.3, MCV 95.6, MCH 33.8 H, MCHC 35.4, RDW Std Deviation 59.8 H, RDW Coeff of Xavier 17.1 H, Plt Count 126 L, MPV 11.8, Immature Gran % (Auto) 0.300, Neut % (Auto) 79.9 H, Lymph % (Auto) 13.5 L, [place] % (Auto) 4.5, Eos % (Auto) 1.2, Baso % (Auto) 0.6, Absolute Neuts (auto) 5.8, Absolute Lymphs (auto) 0.98, Nucleated RBC % 0, Sodium 138, P otassium 3.2 L, Chloride 104, Carbon Dioxide 30.0, Anion Gap 4 L, BUN 21 H, C reatinine 1.28 H, Estim Creat Clear Calc 53.41, Est GFR (MDRD) Af Amer 54 L, Est GFR (MDRD) Non-Af 45 L, BUN/Creatinine Ratio 16.4, Glucose 115 H, Calcium 9.3, Phosphorus 3.4, Magnesium 2.3, Total Bilirubin 1.60 H, AST 36, ALT 34, Alkaline Phosphatase 84, Total Protein 6.4, Albumin 3.4, Globulin 3.0, Albumin/Globulin Ratio 1.1, Free T4 1.15 07/12/24 05:45: Sodium 140, Potassium 2.9 L, Chloride 106, Carbon Dioxide 28.0, Anion Gap 6, BUN 23 H, Creatinine 1.29 H, Estim Creat Clear Calc 53.44, Est GFR (MDRD) Af Amer 54 L, Est GFR (MDRD) Non-Af 44 L, BUN/Creatinine Ratio 17.8, Glucose 100, Calcium 8.6 Radiography Diagnostic Testing: Radiology Impression Brain MRI 07/11/24 13:03 IMPRESSION: No acute intracranial abnormality. Chronic microvascular changes. Electronically Signed: Haseeb May MD at 16:25 EDT , Assessment & Plan Assessment/Plan (1) Hypokalemia: (2) Altered mental status: QUALIFIERS: Altered mental status type: delirium Qualified Code(s): R41.0 - Disorientation, unspecified (3) Dehydration: (4) Generalized weakness: (5) Obesity (BMI 30-39.9): (6) Sleep apnea: QUALIFIERS: Sleep apnea type: unspecified type Qualified Code(s): G47.30 - Sleep apnea, unspecified (7) History of cirrhosis: (8) Chronic insomnia: PLAN: Plan Hypokalemia * 2.7 on admission. Replace. Will require PICC give poor IV access. Encephalopathy * ammonia less than 10. 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 * minimize potentiating medications (wean diazepam over several weeks) * MRI brain negative. * unclear if patient has dementia v psychogenic. * Consult neurology for additional input. Folate deficiency * on IV folate * low likelihood of contributing to encephalopathy Chronic conditions: * insomnia: avoid Zolpidem. On OARRS review, patient has not received this since December 2023 * Recent admission to a psychiatric facility in [place], [place] - where she subsequently signed herself out after ~3 days adding to the medical complexity of #1 - #5 - Noted. 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 * Essential hypertension continue propranolol VTE prophylaxis: LMWH Disposition: likely needs SNF. Awaiting on accepting facility then insurance approval.
--- NOTE | 2024-07-12 10:20 | PCM.PN.HOSP ---
Reason for Visit Reason for Visit: Diagnoses Obesity, unspecified (07/11/24) Dehydration (07/11/24) Hypokalemia (07/11/24) Psychophysiologic insomnia (07/11/24) Sleep apnea, unspecified (07/11/24) Disorientation, unspecified (07/11/24) Weakness (07/11/24) Personal history of other diseases of the digestive system (07/11/24) Subjective Subjective Thinks she's at [facility]. Objective Data Objective Data Vital Signs: Vital Signs Temp Pulse Resp BP Pulse Ox O2 Del Method 36.6 C 66 14 104/64 96 Room Air 07/12/24 09:57 07/12/24 09:57 07/12/24 09:57 07/12/24 09:57 07/12/24 09:57 07/12/24 09:57 Oxygen Delivery Method Room Air Weight: 104.1 kg Body Mass Index (BMI) 38.2 Intake & Output: Intake and Output for Last 24 Hours 07/10/24 07/11/24 07/12/24 23:59 23:59 23:59 Intake Total 1050.2 / 1050.2 Output Total 150 / 150 Balance 900.2 / 900.2 Lab / Micro Data 07/11/24 12:47 07/12/24 05:45 Labs: Laboratory Results - last 24 hr 07/11/24 12:47: WBC 7.3, RBC 4.11 L, Hgb 13.9, Hct 39.3, MCV 95.6, MCH 33.8 H, MCHC 35.4, RDW Std Deviation 59.8 H, RDW Coeff of Xavier 17.1 H, Plt Count 126 L, MPV 11.8, Immature Gran % (Auto) 0.300, Neut % (Auto) 79.9 H, Lymph % (Auto) 13.5 L, Mccone % (Auto) 4.5, Eos % (Auto) 1.2, Baso % (Auto) 0.6, Absolute Neuts (auto) 5.8, Absolute Lymphs (auto) 0.98, Nucleated RBC % 0, Sodium 138, Potassium 3.2 L, Chloride 104, Carbon Dioxide 30.0, Anion Gap 4 L, BUN 21 H, Creatinine 1.28 H, Estim Creat Clear Calc 53.41, Est GFR (MDRD) Af Amer 54 L, Est GFR (MDRD) Non-Af 45 L, BUN/Creatinine Ratio 16.4, Glucose 115 H, Calcium 9.3, Phosphorus 3.4, Magnesium 2.3, Total Bilirubin 1.60 H, AST 36, ALT 34, Alkaline Phosphatase 84, Total Protein 6.4, Albumin 3.4, Globulin 3.0, Albumin/Globulin Ratio 1.1, Free T4 1.15 07/12/24 05:45: Sodium 140, Potassium 2.9 L, Chloride 106, Carbon Dioxide 28.0, Anion Gap 6, BUN 23 H, Creatinine 1.29 H, Estim Creat Clear Calc 53.44, Est GFR (MDRD) Af Amer 54 L, Est GFR (MDRD) Non-Af 44 L, BUN/Creatinine Ratio 17.8, Glucose 100, Calcium 8.6 Radiography Diagnostic Testing: Radiology Impression Brain MRI 07/11/24 13:03 IMPRESSION: No acute intracranial abnormality. Chronic microvascular changes. Electronically Signed: Haseeb May MD at 16:25 EDT , Physical Exam Const alert and no apparent distress HEENT head/scalp atraumatic and moist oral mucous membranes Resp normal respiratory effort, no retractions, no use of accessory muscles and clear to auscultation bilaterally Cardio regular rate, regular rhythm, S1 normal heart sound and S2 normal heart sound GI normal to inspection, nondistended, normoactive bowel sounds, soft to palpation, non-tender and non-distended Extremity normal to inspection and full ROM Neuro Sensorium / Orientation: awake and alert Assessment & Plan Assessment/Plan (1) Hypokalemia: (2) Altered mental status: QUALIFIERS: Altered mental status type: delirium Qualified Code(s): R41.0 - Disorientation, unspecified PLAN: Plan Hypokalemia 2.7 on admission. Replace again. Encephalopathy ammonia less than 10. 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 minimize potentiating medications (wean diazepam over several weeks) MRI brain negative. unclear if patient has dementia v psychiatric. Consult neurology for additional input. Folate deficiency on IV folate low likelihood of contributing to encephalopathy Chronic conditions: insomnia: avoid Zolpidem. On OARRS review, patient has not received this since December 2023 Recent admission to a psychiatric facility in [place], [place] - where she subsequently signed herself out after ~3 days adding to the medical complexity of #1 - #5 - Noted. obesity class II: complicates care and recovery. Essential hypertension continue propranolol VTE prophylaxis: LMWH Disposition: likely needs SNF. Awaiting on accepting facility then insurance approval. Charges/Coding Visit Charges Inpatient E&M: 90646 Subs Hosp L2
[2024-07-12] MEDS: Smz/Tmp Ds Tablet 1 TABLET PO ×2 (11:02→16:57)
[2024-07-12 12:09] LABS: Bedside Glucose 142 mg/dL (74-106)
[2024-07-12] MEDS: Propranolol 40 MG Tablet 60 MG PO ×2 (13:41→21:32)
--- NOTE | 2024-07-12 14:01 | CASEMGMT ---
Social Work This SW called daughter to inform her that [facility] was unable to accept but [facility] was able to take her. SW also went to patients room to notify her about same. Patient stated that she was uncertain about placement and was nervous about going to another facility. When SW asked if there was another option for discharge, patient stated that she could not go home at this time due to being unable to care for herself. Patient asked how long she would be at [facility], this SW explained it would depend on her level of functioning and how long her insurance approved her to stay. Patient expressed understanding but continued to state that she was nervous to discharge. Reassurance and support provided. Shelley Maddox, SALES EXHIBITOR, HOSPITAL MANAGER
[2024-07-12] MEDS: Potassium Chloride Oral Tablet 20 MEQ 60 MEQ PO (14:17)
[2024-07-12 14:20] VITALS: BP 114/72; PULSE 72; RESP 16; TEMP 36.7; O2SAT 94
--- NOTE | 2024-07-12 14:45 | NEURO.CONS ---
Assessment and Plan: Neuro Assessment/Plan This is a 64 year old female with a past medical history of CAD, hepatitis C, hypertension who presented to [facility] on 07/10/2024 for altered mental status, generalized weakness. In regards to mental status, MRI brain without clear etiology for symptoms, there is diffuse atrophy which appears more than expected for age. Labs notable for low vitamin B12 (less than 400) and Folate. Consideration for Wernike's encephaloapthy given other known vitamin deficiencies, and concern for inability to care for herself at home. Would recommend high dose thiamine supplementation if not completed already. Her neurologic examination is most notable for impaired attention. This may be delirium, or could been seen in B1 (thiamine deficiency). Affect throughout evaluation extremely flat, untreated psychiatric disease may be playing a role in cognitive function. In regards to generalized weakness, folate deficiency can cause a nutritional neuropathy. Overall strength appears preserved (at least 4/5). Recommend PT/OT, follow up neurology outpatient for EMG. I personally attended this patient and spent a total time of 60 minutes evaluating this patient including clinical assessment, review of chart, medical history imaging, and determining appropriate treatment and workup. HPI Consult Data Date of Consult: 07/12/24 HPI Narrative HPI Narrative: This is a 64 year old female with a past medical history of CAD, hepatitis C, hypertension who presented to [facility] on 07/10/2024 for altered mental status. Per EMS notes, EMS was called to the house by daughter after patient fell outside. Patient's daughter and nephew brought patient inside onto chair. She then slide onto the floor, where EMS assessed her. There was concern with medications, as number of pills did not match what she should have been taking . Unclear if this means she was taking less or more medications. She was recently hospitalized for psychiatric care, but left AMA. Daughter is concerned she is unable to care for herself (house not kept) Information as given by patient is limited. She reports she has been falling, and her legs won?t hold up her body. She reports this started weeks ago. She reports she will get confused, can?t remember her mail box number. I attempted to contact both daughters in the chart for further information. On arrival to the ED, she was found to be afebrile, on room air, with normal vitals. Basic labs show normal WBC count, creatinine 1.38 with BUN 20, AST 38, ALT 31. Urine analysis with LE and 1+bacteria. Ammonia <10, TSH 4.120, Folate 1.80, B12 328 PFSH Medical History Chest pain Atherosclerotic heart disease of [place] coronary artery without angina pectoris Hepatitis C Essential hypertension Home Medications ?Medication ?Instructions ?Recorded ?Last Taken ?Type atorvastatin 40 mg tablet 40 mg PO DAILY cholesterol 07/10/24 Unknown History diazepam 10 mg tablet 10 mg PO QHS PRN PRN anxiety 07/10/24 Unknown History eszopiclone 2 mg tablet 2 mg PO QHS PRN PRN sleep 07/10/24 Unknown History hydrochlorothiazide 25 mg tablet 25 mg PO DAILY diuretic 07/10/24 Unknown History propranolol 40 mg tablet 60 mg PO TID blood pressure 07/10/24 Unknown History sulfamethoxazole 800 1 tab PO BID infection 07/10/24 Unknown History mg-trimethoprim 160 mg tablet trazodone 100 mg tablet 100 mg PO DAILY mental health 07/10/24 Unknown History venlafaxine 75 mg capsule,extended 75 mg PO DAILY mental health 07/10/24 Unknown History release 24 hr zolpidem 10 mg tablet 10 mg PO QHS PRN PRN sleep 07/10/24 Unknown History Allergy/AdvReac Type Severity Reaction Status Date / Time codeine Allergy Unknown Verified 07/10/24 18:06 latex Allergy Hives Verified 07/10/24 18:06 Penicillins Allergy Unknown Verified 07/10/24 18:06 Family History Father CAD (coronary artery disease) Myocardial infarction History of coronary artery bypass surgery Grandmother Cardiac pacemaker in situ Surgical History History of left heart catheterization (LHC) (~07/08/19) History of lumbar spinal fusion History of herniorrhaphy History of hysterectomy History of appendectomy History of cholecystectomy History of bariatric surgery Social History Smoking Status: Former smoker alcohol intake: current details: occasional substance use type: does not use caffeine: Yes Type: carbonated beverages Number of servings: 1 and coffee Vital Signs Vital Signs Vital Signs: 07/11/24 15:05 07/11/24 15:13 07/11/24 19:30 Temperature 97.9 F Temperature Source Oral Pulse Rate 67 Respiratory Rate 17 Respiratory Effort Normal Non-Labored Respiratory Depth Normal Respiratory Pattern Normal Blood Pressure 113/80 Blood Pressure Mean 91 Blood Pressure Source Monitor Blood Pressure Position Semi-Fowlers Blood Pressure Location Left Forearm Pulse Ox 96 Oxygen Delivery Method Room Air Room Air Room Air 07/11/24 20:53 07/12/24 03:00 07/12/24 03:00 Temperature 97.8 F 98.2 F Temperature Source Oral Oral Pulse Rate 74 72 Respiratory Rate 16 16 Respiratory Effort Normal Non-Labored Respiratory Depth Normal Respiratory Pattern Normal Blood Pressure 108/73 99/63 Blood Pressure Mean 84 75 Blood Pressure Source Monitor Monitor Blood Pressure Position Semi-Fowlers Supine Blood Pressure Location Left Arm Left Forearm Pulse Ox 100 95 Oxygen Delivery Method Room Air Room Air Room Air 07/12/24 05:27 07/12/24 08:23 07/12/24 08:54 Temperature 97.1 F L Temperature Source Oral Pulse Rate 74 Respiratory Rate 18 Respiratory Effort Normal Non-Labored Respiratory Depth Normal Respiratory Pattern Normal Blood Pressure 103/70 Blood Pressure Mean 81 Blood Pressure Source Monitor Blood Pressure Position Supine Blood Pressure Location Left Forearm Pulse Ox 95 98 Oxygen Delivery Method Room Air Room Air Room Air 07/12/24 09:57 07/12/24 14:20 07/12/24 14:38 Temperature 97.9 F 98.1 F Temperature Source Oral Oral Pulse Rate 66 72 Respiratory Rate 14 16 Respiratory Effort Normal Non-Labored Respiratory Depth Normal Respiratory Pattern Normal Blood Pressure 104/64 114/72 Blood Pressure Mean 77 86 Blood Pressure Source Monitor Monitor Blood Pressure Position Supine Semi-Fowlers Blood Pressure Location Left Arm Left Arm Pulse Ox 96 94 Oxygen Delivery Method Room Air Room Air Room Air Weight Weight: 104.1 kg Body Mass Index (BMI) 38.2 EEG Results Procedure Details EEG Procedure Details: MICHELINE CLEARY is a 64 year old F with a past medical history of , who presents for evaluation of Electroencephalogram on DATE at TIME Physical Exam Neuro Neuro Narrative: Mental Status: Orientation:The patient was alert and oriented to person, place, month, and year Attention: Overall poor attention. She had difficulty repeating back 3 digit span. Unable to perform serial 7s, but did not attempt. Unable to spell the word ?BAT? backwards. Language: speech is fluent but with psychomotor delay in starting sentences when asked a question. There is no clear dysarthria. Naming and repletion are intact Cranial Nerves: Pupils are equal and reactive to light.? EOMI, no nystagmus is appreciated, visual conteh full, face is symmetric at rest and with activation, hearing is intact to conversational tone, tongue protrudes midline. Facial sensation is intact to light touch, and equal bilaterally Motor: ?All extremities are antigravity. No pronator drift noted. She has difficulty following directions for formal motor testing. SA/EE/EF appears at least 4/5. HF appears at least 4/5. DF/PF appear 4/5 at least. Sensation- Intact to light touch bilaterally Coordination: No dysmetria on [id number], finger follow finger or [id number]. No truncal ataxia Lab / Micro Data 07/11/24 12:47 07/12/24 05:45 Labs: Laboratory Results - last 24 hr 07/12/24 05:45: Sodium 140, Potassium 2.9 L, Chloride 106, Carbon Dioxide 28.0, Anion Gap 6, BUN 23 H, Creatinine 1.29 H, Estim Creat Clear Calc 53.44, Est GFR (MDRD) Af Amer 54 L, Est GFR (MDRD) Non-Af 44 L, BUN/Creatinine Ratio 17.8, Glucose 100, Calcium 8.6 07/12/24 11:41: POC Glucose 142 H Imaging Radiology Impression Brain MRI 07/11/24 13:03 IMPRESSION: No acute intracranial abnormality. Chronic microvascular changes. Electronically Signed: Haseeb May MD at 16:25 EDT , MRI brain personally reviewed, there is non-specific white matter disease consistent with small vessel ischemic disease, there is atrophy present. Atrophy appears more than expected for age, but significance is difficult to assess without neuroquant analysis. Active Medications Active Medications Active Medications: Current Medications Generic Name Dose Route Start Last Admin Trade Name Freq PRN Reason Stop Dose Admin Acetaminophen 650 mg 07/11/24 01:27 Acetaminophen 325 Mg Tablet PO Q6H PRN PRN Pain 1-10 Or Fever>100.7 Atorvastatin Calcium 40 mg 07/11/24 22:00 07/11/24 20:55 Atorvastatin Calcium 40 Mg Tablet PO 40 mg QHS JENNIFER Administration Diazepam 5 mg 07/11/24 22:00 07/11/24 23:15 Diazepam 5 Mg Tablet PO 5 mg QHS JENNIFER Administration Enoxaparin Sodium 40 mg 07/11/24 10:00 07/12/24 10:07 Enoxaparin 40 Mg/0.4 Ml Syringe SC 40 mg DAILY JENNIFER Administration Folic Acid 1 mg/ Sodium 50.2 mls @ 200 mls/hr 07/11/24 10:00 07/12/24 10:32 Chloride IV Infused DAILY JENNIFER Infusion Magnesium Hydroxide 30 ml 07/11/24 01:27 Magnesium Hydroxide 30 Ml Udc PO DAILY PRN PRN Constipation Melatonin 3 mg 07/11/24 01:27 Melatonin 3 Mg Tablet PO QHS PRN PRN INSOMNIA Nutritional Formula (Lactose Free) 120 ml 07/11/24 17:00 07/12/24 13:40 Ensure Plus High Protein 120 Ml Liquid PO 120 ml TIDCM JENNIFER Administration Ondansetron HCl 4 mg 07/11/24 01:27 07/11/24 08:52 Ondansetron 4 Mg/2 Ml Vial IV 4 mg Q8H PRN PRN Administration NAUSEA/VOMITING Propranolol HCl 60 mg 07/11/24 06:00 07/12/24 13:41 Propranolol 40 Mg Tablet PO 60 mg TID JENNIFER Administration Protocol Senna 2 tablet 07/11/24 22:47 07/11/24 23:15 Senna Tablet PO 2 tablet QHS PRN PRN Administration CONSTIPATION Sodium Chloride 10 - 40 ml 07/11/24 01:52 07/12/24 11:02 0.9% Saline Lock 10 Ml Syringe IV 10 ml UD PRN Administration SALINE FLUSH Trazodone HCl 100 mg 07/11/24 22:00 07/11/24 20:55 Trazodone 100 Mg Tablet PO 100 mg QHS JENNIFER Administration Trimethoprim/Sulfamethoxazole 1 tablet 07/11/24 08:00 07/12/24 11:02 Smz/Tmp Ds Tablet PO 1 tablet BIDCM JENNIFER Administration Venlafaxine HCl 75 mg 07/11/24 10:00 07/12/24 10:07 Venlafaxine Xr 75 Mg Capsule PO 75 mg DAILY JENNIFER Administration Zolpidem Tartrate 5 mg 07/11/24 02:21 Zolpidem Tartrate 5 Mg Tablet PO QHS PRN PRN INSOMNIA
[2024-07-12] MEDS: Thiamine Hydrochloride 100 MG in 0.9% Normal Saline (50mL Bag) 50 ML 200 MG IV (16:52)
[2024-07-12 21:30] VITALS: BP 112/75; PULSE 74; RESP 16; TEMP 36.8; O2SAT 95
[2024-07-12] MEDS: Senna Tablet 2 TABLET PO (21:32)
[2024-07-12] MEDS: traZODone 100 MG Tablet PO (21:32)
[2024-07-12] MEDS: diazePAM 5 MG Tablet PO (21:32)
[2024-07-12] MEDS: Atorvastatin Calcium 40 MG Tablet PO (21:32)
[2024-07-13 03:15] VITALS: BP 94/64; PULSE 65; RESP 16; TEMP 36.4; O2SAT 92
[2024-07-13 04:08] VITALS: BMI 38.5
[2024-07-13 05:05] VITALS: BP 114/78; PULSE 66; RESP 18; TEMP 36.2; O2SAT 94
[2024-07-13] MEDS: Propranolol 40 MG Tablet 60 MG PO ×2 (05:13→14:02)
[2024-07-13 07:22] VITALS: O2SAT 97
[2024-07-13] MEDS: Smz/Tmp Ds Tablet 1 TABLET PO (08:24)
[2024-07-13] MEDS: Ensure Plus High Protein 120 ML LIQUID PO ×2 (08:28→12:50)
[2024-07-13 10:22] VITALS: BP 95/62; PULSE 64; RESP 16; TEMP 36.3; O2SAT 95
[2024-07-13] MEDS: Venlafaxine XR 75 MG Capsule PO (10:24)
[2024-07-13] MEDS: Enoxaparin 40 MG/0.4 ML Syringe SC (10:24)
[2024-07-13] MEDS: 0.9% Saline Lock 10 ML Syringe IV ×2 (10:35→11:12)
[2024-07-13] MEDS: Folic Acid 1 MG in 0.9% Normal Saline (50mL Bag) 50 ML 200 MG IV (10:35)
[2024-07-13] MEDS: Thiamine Hydrochloride 100 MG in 0.9% Normal Saline (50mL Bag) 50 ML 200 MG IV (11:11)
--- NOTE | 2024-07-13 13:22 | CASEMGMT ---
Discharge Planning [facility] has obtained auth to admit. SW updated. Annalee Velazquez DC Planning Asst.
--- NOTE | 2024-07-13 13:38 | CASEMGMT ---
Social Work This SW let patient know that her precert was completed and she was able to be transported to [facility]. Patient wanted to know if she could leave by the end of the day, this SW confirmed that she would be tranferred later today. Shelley Maddox, NDT INSPECTOR, CONTROL SUPERVISOR
--- NOTE | 2024-07-13 13:49 | CASEMGMT ---
Patient was approved for [facility]. SW notified physician. [id number] will be completed in [place]ENS. [facility] will transport patient via wheelchair van. Plan: d/c to [facility] under skilled level of care on a convalescent stay. Danyell Higginbotham SHAFTING CLEANER CHUCHO
--- NOTE | 2024-07-13 14:22 | CASEMGMT ---
SISI called [facility] Prote[facility] and let them know patient will be going to [facility] today. Danyell Higginbotham BULK PLANT MANAGER [place]UCHO
[2024-07-13 14:24] LABS: Anion Gap 4 (5-15); BUN 22 mg/dL (7-18); BUN/Creat Ratio 17.9 RATIO (10-20); Calcium,Total 8.7 mg/dL (8.5-10.1); Chloride 108 mmol/L (98-107); Creatinine, Serum 1.23 mg/dL (0.55-1.02); EST Glomerular Filtration Rate 47 mL/min (>60); Est Glom Filt Rate - Afr Amer 57 mL/min (>60); Estimated Creatinine Clearance 56.29 ml/min; Glucose 97 mg/dL (74-106); Potassium 3.3 mmol/L (3.5-5.1); Sodium Level 141 mmol/L (136-145)
--- NOTE | 2024-07-13 14:47 | TREXTCAR_ITS ---
Diet Diet Order/Speech Therapy: 07/11/24 01:27 Diet: Cardiac - Heart Healthy Food consistency:: Regular Liquid Consistency:: Regular/Thin Routine Orders/Code Status Code Status: Full Code Wound(s) right quach: Wound Type: Abrasion Therapies Weight Bearing: Full weight bearing Physical Therapy: Eval and Treat Occupational Therapy: Eval and Treat Problem/Diagnosis (1) Hypokalemia: Status: Acute Code(s): E87.6 - Hypokalemia (2) Altered mental status: Status: Acute Code(s): R41.82 - Altered mental status, unspecified Plan Hypokalemia * 2.7 on admission. Replace again. Encephalopathy * ammonia less than 10. 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 * minimize potentiating medications (wean diazepam over several weeks) * MRI brain negative. * unclear if patient has dementia v psychiatric. * Neurology notes to clear etiology, but concern for underlying Wernikes' encepahlopathy given known vitamin deficiencies. Recommending replete thiamine. Follow up with neurology as outpt. Folate deficiency * on IV folate * low likelihood of contributing to encephalopathy Chronic conditions: * insomnia: avoid Zolpidem. On OARRS review, patient has not received this since December 2023 * Recent admission to a psychiatric facility in [place], [place] - where she subsequently signed herself out after ~3 days adding to the medical complexity of #1 - #5 - Noted. 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 * Essential hypertension continue propranolol VTE prophylaxis: LMWH Disposition: DC to SNF. Allergies/Procedures Done in Hospital Allergies codeine Allergy (Verified 07/10/24 18:06) Unknown latex Allergy (Verified 07/10/24 18:06) Hives Penicillins Allergy (Verified 07/10/24 18:06) Unknown Type of Care/Length of Stay Estimated LOS: Convalescent Care Less Than 30 days Type of Care Needed: Skilled Rehab Potential: Fair Prognosis: Fair Additional Orders/Day of Discharge Day of Discharge: 07/13/24 Dietary and Speech Recommendations Dietitian Recommendations/Changes: Continue cardiac diet. Will order 120ml chocolate ensure plus high protein TID with medpass. Will monitor weight, as available. Will obtain further nutrition information at time of follow-up, hopefully with pt's daughter present. Reviewed and approved by Tiff Fisher RD, LD. Discharge Plan Admission Admit Date/Time: 07/11/24 00:02 Primary Reason for Your Visit: encephlopathy Attending Provider: Vinicio Reeder Primary Care Provider: Meagan Sylvester Consulting Providers: Harpreet Williamson; Tejinder Kuo; Merlyn Fitzgerald; Mary Garcia; Katy Vieira; Taylor Coyne; Jose Johnson; Mindy Rossi; Javed Layton; Avni Diaz; Wesley Edwards; An Chapman; Nir Ahn; Jie Vinson; Silviano Krishnamurthy; Keeley Quintero; Alex Omer; Tyrell Mccormick; Daryl Velásquez; Leanne Albarran; Jace Araya Discharge Orders/Prescriptions Prescriptions: New acetaminophen 325 mg Tablet 650 mg PO Q6H PRN PRN (Reason: Pain 1-10 Or Fever>100.7) Qty: 0 0RF diazepam 5 mg Tablet 5 mg PO QHS 3 Days Qty: 3 0RF Rx Instructions: 1 tablet daily for 5 days, then 1 tablet every other day for 3 doses, then 1 tablet every third day for 3 doses, then stop. Ensure Plus High Protein 0.08 gram-1.5 kcal/mL Liquid 120 ml PO TIDCM Qty: 0 0RF folic acid 1 mg tablet 1 mg PO DAILY Qty: 30 0RF thiamine HCl (vitamin B1) 100 mg tablet 100 mg PO DAILY Qty: 30 0RF Continued propranolol 40 mg tablet 60 mg PO TID trazodone 100 mg tablet 100 mg PO DAILY atorvastatin 40 mg tablet 40 mg PO DAILY venlafaxine 75 mg capsule,extended release 24hr 75 mg PO DAILY Discontinued hydrochlorothiazide 25 mg tablet 25 mg PO DAILY eszopiclone 2 mg tablet 2 mg PO QHS PRN PRN (Reason: sleep) zolpidem 10 mg tablet 10 mg PO QHS PRN PRN (Reason: sleep) sulfamethoxazole-trimethoprim 800-160 mg tablet 1 tab PO BID diazepam 10 mg tablet 10 mg PO QHS PRN PRN (Reason: anxiety) Referrals / Follow Up: Meagan Sylvester MD [Primary Care Provider] - Within 2 Weeks Disposition Disposition (needs filled in before D/C Order can be placed): [facility] Facility (2) Altered mental status Qualifiers: Altered mental status type: delirium Qualified Code(s): R41.0 - Disorientation, unspecified
--- NOTE | 2024-07-13 15:02 | DS.PCM_ITS ---
Providers Date of Admission: 07/11/24 Primary Care Physician: Dr. Meagan Sylvester MD Consultations 07/11/24 17:37 Consult: Tele-Neurology Routine Consulting Provider: [facility] Reason for Consult: confusion, progressive. EMERGENT Consult: No MD Notified: Yes Date Notified: 07/11/24 Time Notified: 18:28 Method of Notification: Answering Service Nursing Unit Staff Notify [facility] of Tele-Neurology Consult: Yes Reason For Visit: SEVERE HYPOKALEMIA, AMS AND DEHYDRATION Diagnosis Discharge Diagnosis (1) Hypokalemia: Status: Acute Code(s): E87.6 - Hypokalemia (2) Altered mental status: Status: Acute Code(s): R41.82 - Altered mental status, unspecified Qualifiers: Altered mental status type: delirium Qualified Code(s): R41.0 - Disorientation, unspecified Plan Hypokalemia * 2.7 on admission. Replace again. Encephalopathy * ammonia less than 10. 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 * minimize potentiating medications (wean diazepam over several weeks) * MRI brain negative. * unclear if patient has dementia v psychiatric. * Neurology notes to clear etiology, but concern for underlying Wernikes' encepahlopathy given known vitamin deficiencies. Recommending replete thiamine. Follow up with neurology as outpt. * Additionally wean the diazepam over the next few weeks with 5 mg tablet for 5 days daily then every other day for 3 doses then every third day for 3 doses and then stop. Folate deficiency * Continue with folate replacement Chronic conditions: * insomnia: avoid Zolpidem. On OARRS review, patient has not received this since December 2023 * Recent admission to a psychiatric facility in [place], [place] - where she subsequently signed herself out after ~3 days adding to the medical complexity of #1 - #5 - Noted. 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 * Essential hypertension continue propranolol VTE prophylaxis: LMWH Disposition: DC to SNF. Discussed with patient's daughterRocio Medications at Discharge Home Medications atorvastatin 40 mg tablet 40 mg PO DAILY cholesterol 07/10/24 propranolol 40 mg tablet 60 mg PO TID blood pressure 07/10/24 trazodone 100 mg tablet 100 mg PO DAILY mental health 07/10/24 venlafaxine 75 mg capsule,extended release 24 hr 75 mg PO DAILY mental health 07/10/24 acetaminophen 325 mg tablet 650 mg (2 x 325 mg) PO Q6H PRN PRN Pain 1-10 Or Fever>100.7 #0 tabs 07/13/24 diazepam 5 mg tablet 5 mg PO QHS 3 days #3 tabs 07/13/24 folic acid 1 mg tablet 1 mg PO DAILY #30 tabs 07/13/24 food supplemt, lactose-reduced 0.08 gram-1.5 kcal/mL oral liquid (Ensure Plus High Protein) 120 ml PO TIDCM #0 mL 07/13/24 thiamine HCl (vitamin B1) 100 mg tablet 100 mg PO DAILY #30 tabs 07/13/24 Hospital Course Operations None Procedures None Summary of Care Provided Minutes Spent on Discharge: 35 Hospital Course: Patient presents with progressive confusion from home and falls. Patient's daughter has noted the patient has been more confused, paranoid. Over the past year. Patient underwent a workup here that was unremarkable though her MRI of the brain did show some more pronounced atrophy for someone her age but otherwise no acute process. Her folic acid level was low and has been started on replacement. Patient was seen by neurology who recommended replating thiamine in addition to the folic acid to see if she has some element of Warnicke's encephalopathy. According to patient's daughter, she stopped drinking around 2015 and was a heavy drinker at that time so that certainly could be a possibility. So hopefully with time if this is indeed due to Warnicke's encephalopathy that that may improve with vitamin replacements. Patient is also been falling and is unsafe to return home at this time. Patient will be going to [facility] for further rehabilitation. Weight / BMI Weight Weight: 104.9 kg Body Mass Index (BMI) 38.5 ABG / Lab / Microbiology Data 07/11/24 12:47 07/13/24 06:43 Laboratory: Laboratory Results - last 24 hr 07/13/24 06:07: Sodium Cancelled, Potassium Cancelled, Chloride Cancelled, Carbon Dioxide Cancelled, Anion Gap Cancelled, BUN Cancelled, Creatinine Cancelled, Estim Creat Clear Calc Cancelled, Est GFR (MDRD) Af Amer Cancelled, Est GFR (MDRD) Non-Af Cancelled, BUN/Creatinine Ratio Cancelled, Glucose Cancelled, Calcium Cancelled 07/13/24 06:43: Sodium 141, Potassium 3.3 L, Chloride 108 H, Carbon Dioxide 29.0, Anion Gap 4 L, BUN 22 H, Creatinine 1.23 H, Estim Creat Clear Calc 56.29, Est GFR (MDRD) Af Amer 57 L, Est GFR (MDRD) Non-Af 47 L, BUN/Creatinine Ratio 17.9, Glucose 97, Calcium 8.7 Meaningful Use Info Meaningful Use Meaningful Use Diagnoses (Choose all that apply): None applicable Ischemic Stroke Statin Dosing Therapy Reference: STATIN DOSE THERAPY REFERENCE: * Patients > 75 years receive moderate or high dose statin therapy. * Patients 75 years or YOUNGER should receive HIGH intensity statin dose unless contraindicated. You will be required to document reason for non-treatment if statin daily dose does not meet guidelines. HIGH DOSE STATIN THERAPY DAILY Atorvastatin > than or = to 40 mg Rosuvastatin > than or = to 20 mg Amlodipine + Atorvastatin > than or = to 2.5/40 mg Ezetimibe + Simvastatin 10/80 mg Simvastatin 80mg Discharge Plan Admission Admit Date/Time: 07/11/24 00:02 Primary Reason for Your Visit: encephlopathy Attending Provider: Vinicio Reeder Primary Care Provider: Meagan Sylvester Consulting Providers: Harpreet Williamson; Tejinder Kuo; Merlyn Fitzgerald; Mary Garcia; Katy Vieira; Taylor Coyne; Jose Johnson; Mindy Rossi; Javed Layton; Avni Diaz; Wesley Edwards; An Chapman; Nir Ahn; Jie Vinson; Silviano Krishnamurthy; Ingridshreyas Arias; Alex Omer; Tyrell Mccormick; Daryl Velásquez; Leanne Albarran; Jace Araya Discharge Orders/Prescriptions Prescriptions: New acetaminophen 325 mg Tablet 650 mg PO Q6H PRN PRN (Reason: Pain 1-10 Or Fever>100.7) Qty: 0 0RF diazepam 5 mg Tablet 5 mg PO QHS 3 Days Qty: 3 0RF Rx Instructions: 1 tablet daily for 5 days, then 1 tablet every other day for 3 doses, then 1 tablet every third day for 3 doses, then stop. Ensure Plus High Protein 0.08 gram-1.5 kcal/mL Liquid 120 ml PO TIDCM Qty: 0 0RF folic acid 1 mg tablet 1 mg PO DAILY Qty: 30 0RF thiamine HCl (vitamin B1) 100 mg tablet 100 mg PO DAILY Qty: 30 0RF Continued propranolol 40 mg tablet 60 mg PO TID trazodone 100 mg tablet 100 mg PO DAILY atorvastatin 40 mg tablet 40 mg PO DAILY venlafaxine 75 mg capsule,extended release 24hr 75 mg PO DAILY Discontinued hydrochlorothiazide 25 mg tablet 25 mg PO DAILY eszopiclone 2 mg tablet 2 mg PO QHS PRN PRN (Reason: sleep) zolpidem 10 mg tablet 10 mg PO QHS PRN PRN (Reason: sleep) sulfamethoxazole-trimethoprim 800-160 mg tablet 1 tab PO BID diazepam 10 mg tablet 10 mg PO QHS PRN PRN (Reason: anxiety) Referrals / Follow Up: Meagan Sylvester MD [Primary Care Provider] - Within 2 Weeks [facility] [Provider Group] - Within 3 Months Disposition Disposition (needs filled in before D/C Order can be placed): [facility] Charges/Coding Visit Charges Inpatient E&M: 17819 Disch Hosp >30min
--- NOTE | 2024-07-13 15:12 | PHA.DC.MR.R ---
Pharmacy [place] Med Reconciliation Pharmacy Service has performed discharge medication reconciliation for this patient. The patient's discharge medication list was reviewed for discrepancies and discrepancies were resolved. Medications at Discharge Home Medications atorvastatin 40 mg tablet 40 mg PO DAILY cholesterol 07/10/24 propranolol 40 mg tablet 60 mg PO TID blood pressure 07/10/24 trazodone 100 mg tablet 100 mg PO DAILY mental health 07/10/24 venlafaxine 75 mg capsule,extended release 24 hr 75 mg PO DAILY mental health 07/10/24 acetaminophen 325 mg tablet 650 mg (2 x 325 mg) PO Q6H PRN PRN Pain 1-10 Or Fever>100.7 #0 tabs 07/13/24 diazepam 5 mg tablet 5 mg PO QHS 3 days #3 tabs 07/13/24 folic acid 1 mg tablet 1 mg PO DAILY #30 tabs 07/13/24 food supplemt, lactose-reduced 0.08 gram-1.5 kcal/mL oral liquid (Ensure Plus High Protein) 120 ml PO TIDCM #0 mL 07/13/24 thiamine HCl (vitamin B1) 100 mg tablet 100 mg PO DAILY #30 tabs 07/13/24
--- NOTE | 2024-07-13 15:33 | CASEMGMT ---
Discharge Planning Discharge orders, signed med list, and transport time sent to [facility] via [facility]. Physicians will transport patient by wheelchair at 4:30p. Nursing, SW, and pts daughter (Rocio) updated. Annalee Velazquez DC Planning Asst.
[2024-07-13 15:39] VITALS: BP 96/54; PULSE 68; RESP 16; TEMP 36.6; O2SAT 94
[2024-07-13] MEDS: Acetaminophen 325 MG Tablet 650 MG PO (15:45)
[2024-07-13 16:20] VITALS: BP 95/54; PULSE 68; RESP 16; TEMP 36.6; O2SAT 94
--- NOTE | 2024-07-13 18:25 | NURSING ---
Report given to Lanette from [facility] @ 18:26
--- NOTE | 2024-07-14 13:38 | CASEMGMT ---
Advanced Directives HC POA and Living Will received and sent to medical records. Annalee Velazquez DC Planning Asst
== END 2024-07-13 16:32 | disposition skilled nursing facility (03) | DRG 641 ==
LOC: ED 19:05 → PCU 07-11 00:11
PROVIDERS: Admitting Provider Internal Medicine; Emergency Provider Emergency Medicine
DX: E87.6 Hypokalemia (principal); G93.40 Encephalopathy, unspecified; B18.2 Chronic viral hepatitis C; I10 Essential (primary) hypertension; Z68.39 Body mass index [BMI] 39.0-39.9, adult; G47.30 Sleep apnea, unspecified; E86.0 Dehydration; I25.10 Atherosclerotic heart disease of native coronary artery without angina pectoris; E78.5 Hyperlipidemia, unspecified; E53.8 Deficiency of other specified B group vitamins; F41.8 Other specified anxiety disorders; Z90.710 Acquired absence of both cervix and uterus; Z87.891 Personal history of nicotine dependence; F51.04 Psychophysiologic insomnia; E66.812 Obesity, class 2; Z90.49 Acquired absence of other specified parts of digestive tract; Z79.899 Other long term (current) drug therapy; R41.0 Disorientation, unspecified; R53.1 Weakness
CPT/HCPCS: 36415; 36569; 70450; 70551; 71045; 72125; 72170; 80048; 80053; 80307; 81001; 82077; 82140; 82607; 82746; 82962; 83735; 84100; 84439; 84443; 85025; 93005; 97162; 97166; 97530; 97535; 97802; 99285; 99406; A4216; J2405; J3490

== ENCOUNTER → 2024-10-18 | Outpatient (CLI) | payer MEDICARE, MEDICAID, SELFPAY | END | disposition home or self-care (01) | DX: F03.90 Unspecified dementia, unspecified severity, without behavioral disturbance, psychotic disturbance, mood disturbance, and anxiety (principal) ==

== ENCOUNTER → 2024-12-15 | Outpatient (CLI) | payer MEDICARE, MEDICAID, SELFPAY ==
--- NOTE | 2024-12-15 11:17 | US_ITS ---
EXAM: ABDOMEN LIMITED 12/15/2024 CLINICAL HISTORY: Epigastric pain COMPARISON: None available TECHNIQUE: Right upper quadrant abdominal ultrasound limited FINDINGS: The study is limited by bowel gas and body habitus. The pancreas is not well seen. The body and tail are obscured by bowel gas. The liver measures 17.2 cm and appears diffusely increased in echogenicity which can be seen with hepatic steatosis or other hepatocellular disease. Liver surface contour appears mildly lobular. No evidence of intrahepatic biliary ductal dilation. Hepatic color flow is present with flow within the portal vein appearing hepatopetal as expected. Report of cholecystectomy. Gallbladder fossa appears unremarkable. CBD 2 mm. The right kidney measures 9.5 x 4 x 4.5 cm without hydronephrosis, evidence of renal stone or perinephric edema seen. No free fluid seen. US/Abdomen Limited IMPRESSION: The study is limited by bowel gas and body habitus. The pancreas is not well seen. The body and tail are obscured by bowel gas. The liver measures 17.2 cm and appears diffusely increased in echogenicity whic h can be seen with hepatic steatosis or other hepatocellular disease. Report of cholecystectomy. Reading Location: [id number]
== END | disposition home or self-care (01) ==
LOC: OPUS 11:05
PROVIDERS: PCP Internal Medicine; Referring Provider Nurse Practitioner Acute Care; Visit Provider Nurse Practitioner Acute Care
DX: R10.13 Epigastric pain (principal); R14.0 Abdominal distension (gaseous); K59.00 Constipation, unspecified
CPT/HCPCS: 76705

== ENCOUNTER → 2025-01-05 | Outpatient (CLI) | payer MEDICARE, MEDICAID, SELFPAY ==
[2025-01-05 14:30] LABS: Absolute Lymphocyte Count 1.88 X10^3/uL (0.83-4.51); Absolute Neutrophil Count 4.4 X10^3/uL (2.0-7.7); Basophil# 0.05 X10^3/uL; Basophil% 0.7 % (0-1); Eosinophil# 0.35 X10^3/uL; Eosinophils% 4.9 % (0-5); Hematocrit 40.9 % (37-47); Hemoglobin 13.4 g/dL (12.0-15.0); Lymphocyte # 1.88 X10^3/ul (0.83-4.51); Lymphocyte % 26.1 % (19-41); Mean Corp Hgb Conc 32.8 g/dL (32-36); Mean Corpuscular Hgb 29.4 pg (27.0-32.0); Mean Corpuscular Volume 89.7 fL (81-99); Monocyte% 6.9 % (0-10); NRBC Flagged by Analyzer 0 % (0-5); Neutrophil # 4.39 X10^3/uL (2.7-7.7); Platelet Count 179 K/mm3 (150-450); RBC Distribution Width CV 14.5 % (11.6-14.6); RBC Distribution Width SD 47.5 fl (35.1-43.9); Red Blood Count 4.56 M/mm3 (4.2-5.4); White Blood Count 7.2 K/mm3 (4.4-11.0)
[2025-01-05 16:04] LABS: ALB/GLOB Ratio 1.6 RATIO (0.9-2.4); AST(SGOT) 33 U/L (<=31); Alanine Aminotransfer ALT/SGPT 37 U/L (<=34); Alkaline Phosphatase 89 U/L (35-104); Anion Gap 11 (5-15); BUN 27 mg/dL (4-19); Carbon Dioxide 25.2 mmol/L (21.0-32.0); Chloride 104 mmol/L (98-108); Creatinine, Serum 1.01 mg/dL (0.70-1.20); EST Glomerular Filtration Rate 63 (>60); Globulin 2.5 g/dL (2.2-4.2); Glucose 85 mg/dL (70-99); Hepatitis B Surface Antibody REAC; Hepatitis B Surface Antigen Nonreactive (Nonreactive); Hepatitis C Antibody REAC (Nonreactive); Potassium 4.7 mmol/L (3.3-5.1); Protein, Total 6.5 g/dL (5.9-8.4); Sodium Level 140 mmol/L (133-145); Total Bilirubin 0.35 mg/dL (0.00-1.30)
[2025-01-07 05:07] LABS: Hepatitis A AB, Total Positive (Negative); Hepatitis B Core Ab Total Positive (Negative)
== END | disposition home or self-care (01) ==
PROVIDERS: PCP Internal Medicine; Referring Provider Nurse Practitioner Acute Care; Visit Provider Nurse Practitioner Acute Care
DX: K76.0 Fatty (change of) liver, not elsewhere classified (principal)
CPT/HCPCS: 36415; 80053; 85025; 86704; 86706; 86708; 86803; 87340

== ENCOUNTER → 2025-01-17 | Outpatient (CLI) | payer MEDICARE, MEDICAID, SELFPAY ==
--- NOTE | 2025-01-17 15:20 | RAD_ITS ---
PROCEDURE: ABDOMEN SINGLE VIEW 01/17/2025 REASON FOR EXAM: DAY 3 SITZ MARKER TECHNIQUE: Single view abdomen. FINDINGS: Bowel gas: Bowel gas pattern is normal. No evidence of bowel obstruction. Calcifications: No suspicious calcifications. Status post cholecystectomy. Bones: The bones are unremarkable. Other: 3 days after the administration of sitzmarks radiopaque markers demonstrates 3 remaining markers consistent with normal colonic transit. RAD/Abdomen Single View IMPRESSION: Normal colonic transit. Reading Location: [id number]
== END | disposition home or self-care (01) ==
LOC: RAD 15:14
PROVIDERS: PCP Internal Medicine; Referring Provider Nurse Practitioner Acute Care; Visit Provider Nurse Practitioner Acute Care
DX: K59.00 Constipation, unspecified (principal); R14.0 Abdominal distension (gaseous)
CPT/HCPCS: 74018

== ENCOUNTER → 2025-01-19 | Outpatient (CLI) | payer MEDICARE, SELFPAY ==
--- NOTE | 2025-01-19 14:53 | RAD_ITS ---
PROCEDURE: ABDOMEN SINGLE VIEW 01/19/2025 REASON FOR EXAM: DAY 5 SITZ MARKER TECHNIQUE: Single view abdomen. 3 total images to include the entire abdomen and pelvis COMPARISON: 01/17/2025 FINDINGS: No marker is identified. Bowel gas pattern appears within limits. Surgical clips left lower quadrant, cholecystectomy, postsurgical changes left upper quadrant and intervertebral disc spacer L4-5 again noted. RAD/Abdomen Single View IMPRESSION: No markers remain currently. Reading Location: [id number]
== END | disposition home or self-care (01) ==
LOC: RAD 14:51
PROVIDERS: PCP Internal Medicine; Referring Provider Nurse Practitioner Acute Care; Visit Provider Nurse Practitioner Acute Care
DX: K59.00 Constipation, unspecified (principal); R14.0 Abdominal distension (gaseous)
CPT/HCPCS: 74018

== ENCOUNTER 2025-03-10 11:53 | Day surgery (SDC) | payer MEDICARE, SELFPAY ==
--- NOTE | 2025-02-24 08:29 | PAT.ANE_ITS ---
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 When Was Last Pacemaker Check QUESTION #4 FULL TEXT: You/Your Family Experience fever (hyperthermia) with Anesthesia Last Oral Intake Last Oral intake: Last Oral Intake NPO since Meds taken in AM with sips of water? Meds patient instructed to take am of surgery PONV PONV - drivers license examiner: PONV - drivers license examiner Female Yes 02/21/25 10:27 HX of Motion Sickness No 02/21/25 10:27 HX of N/V After Surgery No 02/21/25 10:27 Non-Smoker Yes 02/21/25 10:27 Duration of Surgery greater No 02/21/25 10:27 than 60 minutes Number of Risk Factors 2 02/21/25 10:27 PONV Score Moderate Risk 02/21/25 10:27 Height & Weight Height & Weight: Anesthesia: Height & Weight Height 5 ft 5 in 12/08/24 15:40 Respiratory Assessment Respiratory Assessment - drivers license examiner: Respiratory Tract Infection Hx - drivers license examiner Hx Respiratory Tract Infection No 02/21/25 10:27 STOP Sleep Apnea STOP Sleep Apnea - drivers license examiner: STOP Sleep Apnea - drivers license examiner Hx Hypertension Yes 02/21/25 10:27 Hx Sleep Apnea Yes 02/21/25 10:27 CPAP No: unable to wear 02/21/25 10:27 BIPAP No 02/21/25 10:27 Do you snore loudly (louder No 02/21/25 10:27 than talking or can be heard Do you often feel tired/ No 02/21/25 10:27 fatigued/ sleepy during daytime? Has anyone observed you stop No 02/21/25 10:27 breathing during sleep? STOP Results Positive 02/21/25 10:27 QUESTION #5 FULL TEXT : Do you snore loudly (louder than talking or can be heard through closed doors)? 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 Specify any problems Hx of Preganancy in last 3 No 02/21/25 10:27 Months Nurse Filling Out Transfusion [facility] 02/21/25 10:27 & Questions: Date: 02/21/25 02/21/25 10:27 Time: 10:32 02/21/25 10:27 Patient unable to answer at this time (ie. confused, unrespo /Reproduction History /Reproductive History - drivers license examiner: /Reproductive Hx- drivers license examiner Hx Now No 02/21/25 10:27 Gestational Age (in weeks): EDC: Hx Hx Para Hx [facility] Medical History (Updated 02/21/25 @ 10:42 by Tiara Cha) Wears dentures Wears glasses Arthritis Ambulates with cane Cirrhosis Restless legs TIA (transient ischemic attack) Former smoker CPAP (continuous positive airway pressure) dependence Sleep apnea History of echocardiogram History of stress test Hypertension Cardiology follow-up encounter Chronic insomnia History of cirrhosis Obesity (BMI 30-39.9) Sleep apnea Chest pain Atherosclerotic heart disease of [place] coronary artery without angina pectoris Hepatitis C Essential hypertension Home Medications ?Medication ?Instructions ?Recorded ?Last Taken ?Type atorvastatin 40 mg tablet 40 mg PO DAILY cholesterol 1 Unknown History trazodone 100 mg tablet 100 mg PO DAILY mental healt h 07/10/24 Unknown History thiamine HCl (vitamin B1) 100 mg 100 mg PO DAILY #30 t abs 07/13/24 Unknown Rx tablet gabapentin 300 mg capsule 300 mg PO QHS 10/18/24 Unkno wn History mirtazapine 15 mg tablet 15 mg PO QHS 10/18/24 Unknow n History hydrocortisone acetate 25 mg 25 mg WI QHS hemorrhoids #12 ea 12/08/24 Unknown Rx rectal suppository (Anusol-HC) propranolol 40 mg tablet 60 mg PO BID blood pressure 12/08/24 Unknown History sennosides 8.6 mg-docusate sodium 1 tab-cap PO BID PRN constipation 12/08/24 Unknown History 50 mg tablet (Senna Plus) tenapanor 50 mg tablet (Ibsrela) 50 mg PO BID #60 tabs 12/08/24 Unknown Rx venlafaxine 150 mg tablet,extended 75 mg PO QDAY 12/08 Unknown History release 24 hr peg 3350-electrolytes 236 240 ml PO Q10M #4,000 mL Unknown Rx gram-22.74 gram-6.74 gram-5.86 gram solution (Golytely) tirzepatide (weight loss) 2.5 2.5 mg subcut QWEEK 12/1302/20/25 History mg/0.5 mL subcutaneous solution (Zepbound) Allergy/AdvReac Type Severity Reaction Status Date / Time codeine Allergy Unknown Verified 02/21/25 10:23 latex Allergy Hives Verified 02/21/25 10:23 Penicillins Allergy Unknown Verified 02/21/25 10:23 Family History Father CAD (coronary artery disease) Myocardial infarction History of coronary artery bypass surgery Grandmother Cardiac pacemaker in situ Mother Hypertension Surgical History History of left heart catheterization (LHC) (~07/08/19) History of lumbar spinal fusion History of herniorrhaphy History of hysterectomy History of appendectomy History of cholecystectomy History of bariatric surgery Social History housing: longterm Smoking Status: Former smoker alcohol intake: former details: occasional substance use type: does not use caffeine: Yes Type: carbonated beverages Number of servings: 1 and coffee Audit: Pertinent Findings Pertinent Findings EKG Perinent findings: 07/10/2024. Normal sinus rhythm [address] and T wave abnormality, consider anterior ischemia. Consult pertinent findings: Cardiology 01/06/2023. Uncontrolled hypertension. Increase losartan to 100 mg/day. Start metoprolol 25 mg twice daily. Start nifedipine 60 mg once daily. Chest pain atypical. Stress test echo done in 2021 negative. Catheterization 2018 revealed nonobstructive disease. Recommendation Anesthesia Recommendation Anesthesia recommendation: OPTIMIZED for anesthesia
[2025-03-10] VITALS (11 sets, daily range): BP systolic 116–172; BP diastolic 52–93; PULSE 65–79; RESP 16–17; TEMP 36.9–37.1; O2SAT 92–99; BMI 51.5
--- NOTE | 2025-03-10 12:06 | PCM.HP.STD ---
HPI - General General Date of Admission: 03/10/25 Date of Service: 03/10/25 Chief Complaint: Bloating, flatulence, constipation HPI Narrative MICHELINE CLEARY, is a 64 F who presents HPI Chief Complaint: Establish Care Details: MICHELINE CLEARY, is a 64 F who presents to the office today for - prior colonoscopy in 2021 or 2022 - she reports she has such terrible internal and external hemorrhoids and was told she needed surgery and is ready to schedule this - c/o bloating, flatulence, constipation - straining with BM - she is taking Stool Softener 2 BID - lately she has been having a small stool every day - c/o rectal pain only with a BM - c/o weight gain - she is seeing blood in toilet water and on tissue - has urge to have a BM but is unable to evacuate stool - applies perineal pressure assists with elimination of stool - h/o hysterectomy in - vaginal deliveries - failed Linzess in the past - has never been on Trulance, Amitiza, or Ibsrela - failed Miralax - it did nothing B: banana and PB or a muffin or yogurt L: skips or dinner left overs or ham/turkey wrap D: protein starch - does not get enough vegetables - reports her water intake is not great - feels so bloated she does to want to drink much water - she denies any heart, lung or kidney disease - she has a fiber supplement - not yet started - occasional HB - denies any nausea - h/o bariatric surgery [facility] Medical History Wears dentures Wears glasses Arthritis Ambulates with cane Cirrhosis Restless legs TIA (transient ischemic attack) Former smoker CPAP (continuous positive airway pressure) dependence Sleep apnea History of echocardiogram History of stress test Hypertension Cardiology follow-up encounter Chronic insomnia History of cirrhosis Obesity (BMI 30-39.9) Sleep apnea Chest pain Atherosclerotic heart disease of [place] coronary artery without angina pectoris Hepatitis C Essential hypertension Home Medications ?Medication ?Instructions ?Recorded ?Last Taken ?Type atorvastatin 40 mg tablet 40 mg PO DAILY cholesterol 07/10/24 Unknown History trazodone 100 mg tablet 100 mg PO DAILY mental health 07/10/24 Unknown History thiamine HCl (vitamin B1) 100 mg 100 mg PO DAILY #30 tabs 07/13/24 Unknown Rx tablet gabapentin 300 mg capsule 300 mg PO QHS 10/18/24 Unknown History mirtazapine 15 mg tablet 15 mg PO QHS 10/18/24 Unknown History hydrocortisone acetate 25 mg 25 mg [place] QHS hemorrhoids #12 ea 12/08/24 Unknown Rx rectal suppository (Anusol-HC) propranolol 40 mg tablet 60 mg PO BID blood pressure 12/08/24 Unknown History sennosides 8.6 mg-docusate sodium 1 tab-cap PO BID PRN constipation 12/08/24 Unknown History 50 mg tablet (Senna Plus) tenapanor 50 mg tablet (Ibsrela) 50 mg PO BID #60 tabs 12/08/24 Unknown Rx venlafaxine 150 mg tablet,extended 75 mg PO QDAY 12/08/24 Unknown History release 24 hr peg 3350-electrolytes 236 240 ml PO Q10M #4,000 mL 02/15/25 Unknown Rx gram-22.74 gram-6.74 gram-5.86 gram solution (Golytely) tirzepatide (weight loss) 2.5 2.5 mg subcut QWEEK 02/21/25 02/20/25 History mg/0.5 mL subcutaneous solution (Zepbound) Allergy/AdvReac Type Severity Reaction Status Date / Time codeine Allergy Unknown Verified 02/21/25 10:23 latex Allergy Hives Verified 02/21/25 10:23 Penicillins Allergy Unknown Verified 02/21/25 10:23 Family History Father CAD (coronary artery disease) Myocardial infarction History of coronary artery bypass surgery Grandmother Cardiac pacemaker in situ Mother Hypertension Surgical History History of left heart catheterization (LHC) (~07/08/19) History of lumbar spinal fusion History of herniorrhaphy History of hysterectomy History of appendectomy History of cholecystectomy History of bariatric surgery Social History housing: long term Smoking Status: Former smoker alcohol intake: former details: occasional substance use type: does not use caffeine: Yes Type: carbonated beverages Number of servings: 1 and coffee ROS Constitutional Constitutional: Denies fatigue, fever(s), poor appetite, weight gain or weight loss Gastrointestinal Gastrointestinal: Denies belching, bloating, change in bowel habits, change in stool character, chewing difficulty, coffee ground emesis, constipation, cramping, diarrhea, dyspepsia, dysphagia, early satiety, excessive flatus, fecal incontinence, heartburn, hematemesis, hematochezia, hemorrhoids, loose stools, melena, nausea, odynophagia, rectal bleeding, tenesmus, vomiting or weight changes Physical Exam Const alert, oriented x3, no apparent distress and healthy appearing General Appearance: cooperative GI normal to inspection, nondistended, normoactive bowel sounds, soft to palpation, non-tender and non-distended Percussion: normal to percussion Rectal Exam: deferred Assessment & Plan Assessment/Plan (1) Bloating: (2) Epigastric pain: (3) Constipation: QUALIFIERS: Constipation type: unspecified constipation type Qualified Code(s): K59.00 - Constipation, unspecified PLAN: Assessment and Plan Assessment and Plan (1) Hemorrhoids: Qualifiers: Hemorrhoid type: unspecified Qualified Code(s): K64.9 - Unspecified hemorrhoids (2) Epigastric pain: Status: Acute (3) Bloating: Status: Acute (4) Constipation: Status: Acute Qualifiers: Constipation type: unspecified constipation type Qualified Code(s): K59.00 - Constipation, unspecified Orders: Orders Abdomen Limited Today K59.00 - Constipation, unspecified, R10.13 - Epigastric pain, R14.0 - Abdominal distension (gaseous) Referrals Gastroenterology K59.00 - Constipation, unspecified, R14.0 - Abdominal distension (gaseous) Medications: New hydrocortisone acetate (Anusol-HC) 25 mg [place] QHS 12 ea 0RF hemorrhoids peg 3350-electrolytes 236-22.74-6.74 -5.86 gram (Golytely) take as directed for split dose bowel prep 240 mL PO Q10M 4,000 mL 0RF pantoprazole take one tablet every morning 30 minutes before breakfast 40 mg PO QDAY 90 tabs 0RF ondansetron HCl 4 mg orally; take two tablets PO two hours prior to start of bowel prep and one every 4 hours as needed for N/V 8 tabs 0RF tenapanor (Ibsrela) must administer immediately before first meal of day/breakfast and dinner 50 mg PO BID 60 tabs 3RF Plan 64-year-old female presents for initial consultation with complaints of constipation, bloating and flatulence. Constipation has been a chronic issue for her and reports straining with a bowel movements with incomplete evacuation despite taking stool softeners daily. She also experiences rectal pain with bowel movements and bright red blood. She reports her last colonoscopy was performed in 2021 or 2022 and revealed large internal and external hemorrhoids. I have prescribed Anusol suppositories. She will start a high-fiber diet with the addition of a daily fiber supplement and increased water intake. I have provided her samples of Ibsrela 50 mg twice daily. She will complete sits marker testing, anorectal manometry and schedule colonoscopy with hemorrhoid banding. Physical exam today was remarkable for epigastric tenderness. She denies any nausea or vomiting, but does endorse experiencing occasional heartburn. I have scheduled her for an abdominal ultrasound as well as EGD. Patient Instructions: Anusol suppositories sent to your pharmacy Start daily fiber supplement Increase daily water intake Start Ibsrela twice a day with meals. Discontinue for completion of Sitz Marker study Colonoscopy with Hemorrhoid banding Complete ABD US We will contact you once Sitz Marker is available for you or your daughter to pick-up Aleks Luna To schedule your Anorectal Manometry please call [facility] [employer] [facility] at [phone]. [facility] is located at: [address] [place] [address], [address] [place] [address] Your provider has ordered an Anorectal Manometry. Anorectal Manometry is a non-invasive procedure that measures the function of the muscles in the anus and rectum. It's used to assess the strength of the muscles, the sensation in the rectum, and the reflexes that control bowel movements. This test can help determine if the muscles are too tight, too loose, or not engaging at the right time. The test is safe and low risk, and is unlikely to cause pain. To prepare for your test, you will need to: - Take two enemas rectally two hours before the procedure - Avoid eating or drinking anything two hours before the procedure - Take regular medications with small sips of water up to two hours before the procedure - Check in at least 15 minutes before the procedure
[2025-03-10] MEDS: Lactated Ringers 1,000 ML 15 ML IV (12:22)
--- NOTE | 2025-03-10 13:05 | PRE.ANES_ITS ---
ASA Classification* ASA Classification ASA Classification: 3 Assessment & Plan Anesthesia* Anesthesia Assessment Anesthesia Assessment: Discussed sedation and/or anesthesia options, risks, benefits, and alternatives with patient/parents/legal guardian/POA. Questions invited. The patient/parents/legal guardian/POA seems to understand and agrees to proceed with anesthesia plan. Reviewed the physical assessment, medical history, allergy history and patient home medications list prior to surgery/procedure/anesthetic and documented any changes. Performed airway and anesthesia risk assessments. Anesthesia Type Anesthesia Type: MAC History Source History Obtained from:: Patient and Chart Anesthesia Focused Assessment* Temperature: 98.4 F Pulse Rate: 74 Blood Pressure: 172/87 Respiratory Rate: 16 Pulse Ox: 94 Oxygen Delivery Method: Room Air Airway Assessment Mouth opens: >3 cm Mallampati Score: III Teeth Condition: Caps/Crowns (Patient has a crown left lower molar. It is tight.), Dentures (Patient has full upper denture. It will come out.) and Missing (Patient is missing back molars bilateral lower jaw.) Neck Range of motion (ROM): Full ROM Labs Anesthesia Preop lab: CBC WBC 7.2 K/mm3 (4.4-11.0) 01/05/25 13:53 01/05/25 RBC 4.56 M/mm3 (4.2-5.4) 01/05/25 13:53 01/05/25 Hgb 13.4 g/dL (12.0-15.0) 01/05/25 13:53 01/05/25 Hct 40.9 % (37-47) 01/05/25 13:53 01/05/25 Plt Count 179 K/mm3 (150-450) 01/05/25 13:53 01/05/25 CHEMISTRY Potassium 4.7 mmol/L (3.3-5.1) 01/05/25 13:53 01/05/25 Sodium 140 mmol/L (133-145) 01/05/25 13:53 01/05/25 Magnesium 2.3 mg/dL (1.6-2.6) 07/11/24 12:47 07/11/24 Phosphorus 3.4 mg/dL (2.5-4.9) 07/11/24 12:47 07/11/24 BUN 27 mg/dL (4-19) H 01/05/25 13:53 01/05/25 Creatinine 1.01 mg/dL (0.70-1.20) 01/05/25 13:53 01/05/25 Glucose 85 mg/dL (70-99) 01/05/25 13:53 01/05/25 POC Glucose 142 mg/dL (74-106) H 07/12/24 11:41 07/12/24 TSH 4.120 uIU/mL (0.358-3.740) H 07/11/24 02:25 COAG Pre-Assessment Diagnosis/Proposed Procedure Planned Operative Procedure(s): Colonoscopy and Egd Anesthesia History 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 When Was Last Pacemaker Check QUESTION #4 FULL TEXT: You/Your Family Experience fever (hyperthermia) with Anesthesia Last Oral Intake Last Oral intake: Last Oral Intake NPO since 05:30 03/10/25 12:18 Meds taken in AM with sips of water? Meds patient instructed to take am of surgery Any additional information?: Yes Meds taken in AM with sips of water?: Yes PONV PONV - faculty criminal justice: PONV - faculty criminal justice Female Yes 02/21/25 10:27 HX of Motion Sickness No 02/21/25 10:27 HX of N/V After Surgery No 02/21/25 10:27 Non-Smoker Yes 02/21/25 10:27 Duration of Surgery greater No 02/21/25 10:27 than 60 minutes Number of Risk Factors 2 02/21/25 10:27 PONV Score Moderate Risk 02/21/25 10:27 Height & Weight Height & Weight: Anesthesia: Height & Weight Height 5 ft 5 in 03/10/25 12:18 Weight: 140.614 kg 03/10/25 12:18 Body Mass Index (BMI) 51.5 03/10/25 12:18 Respiratory Assessment Respiratory Assessment - faculty criminal justice: Respiratory Tract Infection Hx - faculty criminal justice Hx Respiratory Tract Infection No 02/21/25 10:27 STOP Sleep Apnea STOP Sleep Apnea - faculty criminal justice: STOP Sleep Apnea - faculty criminal justice Hx Hypertension Yes 02/21/25 10:27 Hx Sleep Apnea Yes 02/21/25 10:27 CPAP No: unable to wear 02/21/25 10:27 BIPAP No 02/21/25 10:27 Do you snore loudly (louder No 02/21/25 10:27 than talking or can be heard Do you often feel tired/ No 02/21/25 10:27 fatigued/ sleepy during daytime? Has anyone observed you stop No 02/21/25 10:27 breathing during sleep? STOP Results Positive 02/21/25 10:27 QUESTION #5 FULL TEXT : Do you snore loudly (louder than talking or can be heard through closed doors)? 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 Specify any problems Hx of Preganancy in last 3 No 02/21/25 10:27 Months Nurse Filling Out Transfusion [facility] 02/21/25 10:27 & Questions: Date: 02/21/25 02/21/25 10:27 Time: 10:32 02/21/25 10:27 Patient unable to answer at this time (ie. confused, unrespo /Reproduction History /Reproductive History - faculty criminal justice: /Reproductive Hx- faculty criminal justice Hx Now No 02/21/25 10:27 Gestational Age (in weeks): EDC: Hx Hx Para Hx Section SAB Active Medications Active Medications: Current Medications Generic Name Dose Route Start Last Admin Trade Name Kathy PRN Reason Stop Dose Admin Lactated Ringer's 1,000 mls @ 15 mls/hr 03/10/25 12:15 03/10/25 12:22 IV 15 mls/hr .Q48H JENNIFER Administration PFSH Medical History Wears dentures Wears glasses Arthritis Ambulates with cane Cirrhosis Restless legs TIA (transient ischemic attack) Former smoker CPAP (continuous positive airway pressure) dependence Sleep apnea History of echocardiogram History of stress test Hypertension Cardiology follow-up encounter Chronic insomnia History of cirrhosis Obesity (BMI 30-39.9) Sleep apnea Chest pain Atherosclerotic heart disease of [place] coronary artery without angina pectoris Hepatitis C Essential hypertension Home Medications ?Medication ?Instructions ?Recorded ?Last Taken ?Type atorvastatin 40 mg tablet 40 mg PO DAILY cholesterol 1 Unknown History trazodone 100 mg tablet 100 mg PO DAILY mental healt h 07/10/24 Unknown History thiamine HCl (vitamin B1) 100 mg 100 mg PO DAILY #30 t abs 07/13/24 03/10/25 Rx tablet gabapentin 300 mg capsule 300 mg PO QHS 10/18/24 Unkno wn History mirtazapine 15 mg tablet 15 mg PO QHS 10/18/24 Unknow n History hydrocortisone acetate 25 mg 25 mg [place] QHS hemorrhoids #12 ea 12/08/24 Unknown Rx rectal suppository (Anusol-HC) propranolol 40 mg tablet 60 mg PO BID blood pressure 12/08/24 03/10/25 History sennosides 8.6 mg-docusate sodium 1 tab-cap PO BID PRN constipation 12/08/24 Unknown History 50 mg tablet (Senna Plus) tenapanor 50 mg tablet (Ibsrela) 50 mg PO BID #60 tabs 12/08/24 Unknown Rx venlafaxine 150 mg tablet,extended 75 mg PO QDAY 12/0803/10/25 History release 24 hr peg 3350-electrolytes 236 240 ml PO Q10M #4,000 mL Unknown Rx gram-22.74 gram-6.74 gram-5.86 gram solution (Golytely) tirzepatide (weight loss) 2.5 2.5 mg subcut QWEEK 12/1302/20/25 History mg/0.5 mL subcutaneous solution (Zepbound) Allergy/AdvReac Type Severity Reaction Status Date / Time codeine Allergy Unknown Verified 03/10/25 12:16 latex Allergy Hives Verified 03/10/25 12:16 Penicillins Allergy Unknown Verified 03/10/25 12:16 Family History Father CAD (coronary artery disease) Myocardial infarction History of coronary artery bypass surgery Grandmother Cardiac pacemaker in situ Mother Hypertension Surgical History History of left heart catheterization (LHC) (~07/08/19) History of lumbar spinal fusion History of herniorrhaphy History of hysterectomy History of appendectomy History of cholecystectomy History of bariatric surgery Social History housing: long-term Smoking Status: Former smoker alcohol intake: former details: occasional substance use type: does not use caffeine: Yes Type: carbonated beverages Number of servings: 1 and coffee Review of Systems (Anesthesia) ROS Narrative System reviewed and no additional complaints, except as documented.
--- NOTE | 2025-03-10 13:15 | EGD_PTH ---
PATIENT: MICHELINE CLEARY LOC: EN U#:[id number] AGE/SX: 64/F ROOM: RE03/10/[address]: Dr. Elier Iyer DO : 1960 BED: DIS: 03/10/2025 SPEC #: [id number] RECD: 03/10/25 16:41 STATUS: HOLGER JOSSIE #: [id number] BLANE: 03/10/25 13:[address]: Elier Iyer DEPT: SURGICAL PATHOLOGY RECD BY: Gagandeep Parker ENTERED: 03/13/25 09:45 SP TYPE: EGD BIOPSY GARO DR: Dr. Valerie Ahmadi MD Tissues: A - Duodenum, NOS B - Gastric mucous membrane C - Sigmoid colon biopsy D - Descending colon Procedures: Surgery Specimen Level IV HEADER OPERATION: Colonoscopy, EGD, biopsy, polypectomy, hemorrhoid banding PRE-OP DIAGNOSIS: Hemorrhoids, epigastric pain, bloating, constipation TISSUE SUBMITTED: A- Duodenum biopsy, B- Gastric body biopsy, C- Sigmoid colon polyp biopsy, D- Descending colon polyp MICROSCOPIC DIAGNOSIS A. Duodenum, biopsy: * Normal villous morphology with gastric mucin cell metaplasia. * Negative for increased intraepithelial lymphocytes. B. Stomach, body, biopsy: * Oxyntic mucosa with features of reactive gastropathy. * Negative for Helicobacter-like organisms (H&E). C. Colon, sigmoid, polyp, biopsy: * Tubular adenoma. D. Colon, descending, polyp, biopsy: * Tubular adenoma. MICROSCOPIC DESCRIPTION Slides are reviewed. GROSS DESCRIPTION Received in 4 formalin containers labeled the patient's name and date of . Designated as: A. Duodenum BX are 2 keene tissue fragments, 0.4 cm each. Entirely submitted in 1 cassette. B. Gastric body BX are 2 keene tissue fragments, 0.3 cm and 0.6 cm. Entirely submitted in 1 cassette. C. Sigmoid colon polyp BX is a 0.4 cm keene tissue fragment. Entirely submitted in 1 cassette. D. Descending colon polyp are 2 keene tissue fragments, 0.3 cm and 0.6 cm. Entirely submitted in 1 cassette. ID 03/[id number] CPT:[id number]
--- NOTE | 2025-03-10 13:59 | OP.EGD_ITS ---
Patient Name: Argenis Fox Procedure Date: 03/10/2025 1:23 PM Date of : 1960 Age: 64 Procedure: Upper GI endoscopy Indications: Epigastric abdominal pain Providers: DO Leila Espino MD: Valerie Ahmadi Medicines: Monitored Anesthesia Care Patient Profile: This is a 64 year old female. Refer to note in patient chart for documentation of history and physical. Patient has symptoms of acute epigastric abdominal pain and acute dyspepsia. Complications: No immediate complications. Procedure: Pre-Anesthesia Assessment: - Prior to the procedure, a History and Physical was performed, and patient medications and allergies were reviewed. The patient is competent. The risks and benefits of the procedure and the sedation options and risks were discussed with the patient. All questions were answered and informed consent was obtained. Patient identification and proposed procedure were verified by the physician in the pre-procedure area. Mental Status Examination: alert and oriented. Airway Examination: normal oropharyngeal airway and neck mobility. Respiratory Examination: clear to auscultation. CV Examination: normal. Prophylactic Antibiotics: The patient does not require prophylactic antibiotics. Prior Anticoagulants: The patient has taken no anticoagulant or antiplatelet agents except for NSAID medication. ASA Grade Assessment: II - A patient with mild systemic disease. After reviewing the risks and benefits, the patient was deemed in satisfactory condition to undergo the procedure. The anesthesia plan was to use monitored anesthesia care (MAC). Immediately prior to administration of medications, the patient was re-assessed for adequacy to receive sedatives. The heart rate, respiratory rate, oxygen saturations, blood pressure, adequacy of pulmonary ventilation, and response to care were monitored throughout the procedure. The physical status of the patient was re-assessed after the procedure. After obtaining informed consent, the endoscope was passed under direct vision. Throughout the procedure, the patient's blood pressure, pulse, and oxygen saturations were monitored continuously. The colonoscope was introduced through the mouth, and advanced to the fourth part of the duodenum. Small bowel enteroscopy was deemed necessary. The upper GI endoscopy was accomplished without difficulty. The patient tolerated the procedure well. Scope In: 1:34:18 PM Scope Out: 1:38:58 PM Total Procedure Duration Time 0 hours 4 minutes 40 seconds Findings: No gross lesions were noted in the entire esophagus. Patchy mild inflammation characterized by erosions was found in the gastric body. Biopsies were taken with a cold forceps for histology. Verification of patient identification for the specimen was done. Estimated blood loss was minimal. Biopsies were taken with a cold forceps for Helicobacter pylori testing. Verification of patient identification for the specimen was done. Estimated blood loss was minimal. Evidence of a Rob fundoplication was found in the gastric fundus. The wrap appeared not intact. A few localized erosions without bleeding were found in the duodenal bulb. Biopsies were taken with a cold forceps for histology. Verification of patient identification for the specimen was done. Estimated blood loss was minimal. Impression: - No gross lesions in the entire esophagus. - Gastritis. Biopsied. - A Rob fundoplication was found. The wrap appears not intact. - Duodenal erosions without bleeding. Biopsied. Recommendation: - Discharge patient to home. - Resume previous diet. - Continue present medications. - Await pathology results. Procedure Code(s): --- Professional --- 70787, Small intestinal endoscopy, enteroscopy beyond second portion of duodenum, not including ileum; with biopsy, single or multiple CPT copyright 2021 [employer]. All rights reserved. The codes documented in this report are preliminary and upon a operator review may be revised to meet current compliance requirements. Eiler Iyer DO 03/10/2025 1:59:19 PM This report has been signed electronically. Number of Addenda: 0 Note Initiated On: 03/10/2025 1:23 PM
--- NOTE | 2025-03-10 13:59 | OP.CCLET_ITS ---
03/10/2025 [facility] Re : Upper GI endoscopy procedure for Argenis Fox Dear This procedure was performed on Monday, March 10, 2025. My impressions and recommendations are as follows: Impressions : - No gross lesions in the entire esophagus. - Gastritis. Biopsied. - A Rob fundoplication was found. The wrap appears not intact. - Duodenal erosions without bleeding. Biopsied. Recommendations : - Discharge patient to home. - Resume previous diet. - Continue present medications. - Await pathology results. My findings are described in the full procedure note, which is enclosed. If I can be of further assistance, please feel free to contact me at . Sincerely, Elier Iyer, 03/10/2025 1:59:19 PM This report has been signed electronically.
--- NOTE | 2025-03-10 14:02 | OP.COLON_ITS ---
Patient Name: Argenis Fox Procedure Date: 03/10/2025 1:39 PM Date of : 1960 Age: 64 Procedure: Colonoscopy Indications: Screening for colorectal malignant neoplasm Providers: DO Leila Espino MD: Valerie Ahmadi Medicines: Monitored Anesthesia Care Patient Profile: This is a 64 year old female. Refer to note in patient chart for documentation of history and physical. Patient has symptoms of acute epigastric abdominal pain and acute dyspepsia. First Colonoscopy: [Date]. Last Colonoscopy: several years ago. Complications: No immediate complications. Procedure: Pre-Anesthesia Assessment: - Prior to the procedure, a History and Physical was performed, and patient medications and allergies were reviewed. The patient is competent. The risks and benefits of the procedure and the sedation options and risks were discussed with the patient. All questions were answered and informed consent was obtained. Patient identification and proposed procedure were verified by the physician in the pre-procedure area. Mental Status Examination: alert and oriented. Airway Examination: normal oropharyngeal airway and neck mobility. Respiratory Examination: clear to auscultation. CV Examination: normal. Prophylactic Antibiotics: The patient does not require prophylactic antibiotics. Prior Anticoagulants: The patient has taken no anticoagulant or antiplatelet agents except for NSAID medication. ASA Grade Assessment: II - A patient with mild systemic disease. After reviewing the risks and benefits, the patient was deemed in satisfactory condition to undergo the procedure. The anesthesia plan was to use monitored anesthesia care (MAC). Immediately prior to administration of medications, the patient was re-assessed for adequacy to receive sedatives. The heart rate, respiratory rate, oxygen saturations, blood pressure, adequacy of pulmonary ventilation, and response to care were monitored throughout the procedure. The physical status of the patient was re-assessed after the procedure. After I obtained informed consent, the scope was passed under direct vision. Throughout the procedure, the patient's blood pressure, pulse, and oxygen saturations were monitored continuously. The colonoscope was introduced through the anus and advanced to the cecum, identified by appendiceal orifice and ileocecal valve. The colonoscopy was performed without difficulty. The patient tolerated the procedure well. The quality of the bowel preparation was adequate. The ileocecal valve, appendiceal orifice, and rectum were photographed. Scope In: 1:40:29 PM Scope Withdrawal Time 0 hours 12 minutes 8 seconds Scope Out: 1:55:03 PM Total Procedure Duration Time 0 hours 14 minutes 34 seconds Findings: The perianal and digital rectal examinations were normal. A 5 mm polyp was found in the recto-sigmoid colon. The polyp was sessile. The polyp was removed with a cold biopsy forceps. Resection and retrieval were complete. Verification of patient identification for the specimen was done. Estimated blood loss was minimal. A 10 mm polyp was found in the descending colon. The polyp was sessile. The polyp was removed with a cold snare. Resection and retrieval were complete. Verification of patient identification for the specimen was done. Estimated blood loss was minimal. Bleeding external and internal hemorrhoids were found during retroflexion. The hemorrhoids were Grade III (internal hemorrhoids that prolapse but require manual reduction). The endoscope was withdrawn. A hemorrhoid was isolated with anoscopy. The ShortShot ligator was positioned over the hemorrhoid at the left lateral position. Suction was applied and one rubber band was placed over the hemorrhoid. This was checked to make certain that the muscularis was free of the band. Post-banding digital rectal exam showed band in good position. Mild oozing of blood was present. Impression: - One 5 mm polyp at the recto-sigmoid colon, removed with a cold biopsy forceps. Resected and retrieved. - One 10 mm polyp in the descending colon, removed with a cold snare. Resected and retrieved. - Bleeding external and internal hemorrhoids. Banded. Recommendation: - Repeat colonoscopy in 5 years for surveillance. - Return to GI office in 1 week. - Continue present medications. Procedure Code(s): --- Professional --- 56145, Colonoscopy, flexible; with removal of tumor(s), polyp(s), or other lesion(s) by snare technique 79418, 59, Colonoscopy, flexible; with biopsy, single or multiple 98141, Hemorrhoidectomy, internal, by rubber band ligation(s) CPT copyright 2021 [employer]. All rights reserved. The codes documented in this report are preliminary and upon breeder service technician review may be revised to meet current compliance requirements. Elier Iyer DO 03/10/2025 2:02:43 PM This report has been signed electronically. Number of Addenda: 0 Note Initiated On: 03/10/2025 1:39 PM
--- NOTE | 2025-03-10 14:03 | OP.CCLET_ITS ---
03/10/2025 [facility] Re : Colonoscopy procedure for Argenis oFx Dear This procedure was performed on Monday, March 10, 2025. My impressions and recommendations are as follows: Impressions : - One 5 mm polyp at the recto-sigmoid colon, removed with a cold biopsy forceps. Resected and retrieved. - One 10 mm polyp in the descending colon, removed with a cold snare. Resected and retrieved. - Bleeding external and internal hemorrhoids. Banded. Recommendations : - Repeat colonoscopy in 5 years for surveillance. - Return to GI office in 1 week. - Continue present medications. My findings are described in the full procedure note, which is enclosed. If I can be of further assistance, please feel free to contact me at . Sincerely, Elier Iyer, 03/10/2025 2:02:43 PM This report has been signed electronically.
--- NOTE | 2025-03-10 14:05 | PCM.POST.ANE ---
Anesthesia: Postop Eval I Current Vital Signs Temperature: 98.8 F Pulse Rate: 74 Blood Pressure: 148/86 Respiratory Rate: 16 Pulse Ox: 95 Oxygen Delivery Method: Room Air Assessment Airway patent: Yes Spontaneous unlabored respirations: Yes Mental status: Awake and Calm nausea: No Vomiting: No Anesthesia Complication: No Fluid Hydration Crystalloid volume administer (ml): 600 Total IV fluid infused: 600 Progress Note Anesthesia document: Postop Eval 1 completed: Yes
[2025-03-10] MEDS: oxyCODONE 5 MG Tablet PO (15:30)
--- NOTE | 2025-03-10 15:46 | PCM.POSTANE2 ---
Anesthesia Postop Eval I Sum Postop Eval Completion status Anesthesia document: Postop Eval 1 completed: Yes Anesthesia Postop Eval I Summary Anesthesia Postop Eval I Summary: Anesthesia Postop Eval I: Assessment Summary Airway patent Yes 03/10/25 14:07 [email or web address] Spontaneous unlabored Yes 03/10/25 14:07 [email or web address] respirations Mental status Awake,Calm 03/10/25 14:07 [email or web address] nausea No 03/10/25 14:07 [email or web address] Vomiting No 03/10/25 14:07 [email or web address] Anesthesia Postop Eval I: Fluid Summary Crystalloid volume administer 600 03/10/25 14:07 [email or web address] (ml) Colloids volume administered ( ml) Blood Product volume administered (ml) Total IV fluid infused 600 03/10/25 14:07 [email or web address] Anesthesia Postop Eval I: Summary Notes Anesthesia Complication No 03/10/25 14:07 [email or web address] Anesthesia Complication Comment: Post-operative progress note Anesthesia: Postop Eval II Evaluation Mental status: Awake Pain Level: 0 nausea: No Vomiting: No
== END 2025-03-10 16:13 | disposition home or self-care (01) ==
LOC: EN 11:57 → AC 11:58
PROVIDERS: PCP Internal Medicine; Referring Provider Internal Medicine; Visit Provider Internal Medicine Gastroenterology
PROC: 0DJD8ZZ Inspection of Lower Intestinal Tract, Via Natural or Artificial Opening Endoscopic (ICD-10-PCS; CPT 45378; principal; 2025-03-10 13:10)
DX: K29.70 Gastritis, unspecified, without bleeding (principal); K59.00 Constipation, unspecified; R14.3 Flatulence; Z87.891 Personal history of nicotine dependence; I10 Essential (primary) hypertension; K64.2 Third degree hemorrhoids; R14.0 Abdominal distension (gaseous); Z90.710 Acquired absence of both cervix and uterus; I25.10 Atherosclerotic heart disease of native coronary artery without angina pectoris; Z98.84 Bariatric surgery status; Z99.89 Dependence on other enabling machines and devices; Z86.73 Personal history of transient ischemic attack (TIA), and cerebral infarction without residual deficits; Z98.1 Arthrodesis status; Z90.49 Acquired absence of other specified parts of digestive tract; K26.9 Duodenal ulcer, unspecified as acute or chronic, without hemorrhage or perforation; D12.5 Benign neoplasm of sigmoid colon; D12.4 Benign neoplasm of descending colon
CPT/HCPCS: 46221; 45385; 45380; 43239; 88305; J2405

== ENCOUNTER 2025-03-22 15:13 | Observation (INO) | payer MEDICARE, SELFPAY ==
[2025-03-22] VITALS (9 sets, daily range): BP systolic 100–158; BP diastolic 65–113; PULSE 72–81; RESP 14–24; TEMP 36.4–37.2; O2SAT 94–98; BMI 54.7; BMI 54.5
--- NOTE | 2025-03-22 16:06 | RAD_ITS ---
PROCEDURE: CHEST PA AND LATERAL 03/22/2025 REASON FOR EXAM: CHEST PAIN TECHNIQUE: CHEST PA AND LATERAL COMPARISON: AP chest of 07/10/2024. RAD/Chest PA and Lateral IMPRESSION: The lateral view is somewhat limited by patient motion. Right upper quadrant abdominal surgical clips are again seen. Prior cervical surgery is noted. Mild right hemidiaphragm elevation is seen. Lungs are hypoinflated, but appear clear of acute disease. No pleural effusion or pneumothorax is evident. The cardiomediastinal silhouette is stable, without evidence of cardiomegaly. No evidence of acute cardiopulmonary disease. Reading Location: [place] [id number]
--- NOTE | 2025-03-22 16:18 | EX.ED.DYSGE1 ---
HPI History of Present Illness Chief Complaint: Shortness of Breath Detail of Chief Complaint: Sent to ER because of weight gain and shortness of breath Informant: patient Onset/Context/Timing Onset: Weeks (Weight gain over the past month, shortness of breath with activity x 1 week) Context: Sudden Onset Timing: Intermittent Quality: Dyspnea with activity and chest pressure Location: Mid sternum and respiratory Current Severity: Mild Maximum Severity: Severe Worsened by: Walking 10 feet Relieved by: Rest for 5 to 10 minutes Associated Symptoms Associated Symptoms: Weight gain Narrative Narrative: Patient is a 64-year-old woman. She has a past medical history of hypertension, had a cardiac catheterization at [facility] in 2019 that revealed minimal atherosclerotic disease. She has not had a recent stress test she does have a history of obstructive sleep apnea, fatty liver. She is seen by Dr. Iyer for her fatty liver. She was sent down from Dr. Iyer's office. She was seen by Dr. Francine Whitt. Her note is not complete but was reviewed. Under her review of systems patient complaining of abdominal pain, bloating and blood in stool. She had no belching. When I asked her regarding change in color, consistency or caliber of her stool she replied no. She is not complaining of abdominal pain. Her complaint is shortness of breath at rest that is worse with activity and associated with chest pressure with activity. There is no review of system questions related to cardiovascular. Patient denies fever, chills night sweats. She denies headache, visual, ocular auditory symptoms. Presently she denies chest discomfort. She states she gets chest discomfort with walking and becomes quite short of breath. Her symptoms resolved within 5 to 10 minutes. She does not have any stents and is not had cardiac surgery. Patient denies history of congestive heart failure. She denies orthopnea. She denies PND. She does have history of high cholesterol and hypertension. Prior similar symptoms: No Recent Illness/Hospitalization: No PFSH PFSH Medical History (Updated 03/22/25 @ 19:30 by Lolis Chavira) Anxiety Depression Congestive heart failure (CHF) Wears dentures Wears glasses Arthritis Ambulates with cane Cirrhosis Restless legs TIA (transient ischemic attack) Former smoker CPAP (continuous positive airway pressure) dependence Sleep apnea History of echocardiogram History of stress test Hypertension Cardiology follow-up encounter Chronic insomnia History of cirrhosis Obesity (BMI 30-39.9) Sleep apnea Chest pain Atherosclerotic heart disease of [place] coronary artery without angina pectoris Hepatitis C Essential hypertension Home Medications ?Medication ?Instructions ?Recorded ?Last Taken ?Type atorvastatin 40 mg tablet 40 mg PO DAILY cholesterol 07/10/24 03/21/25 History trazodone 100 mg tablet 100 mg PO DAILY mental health 07/10/24 03/21/25 History thiamine HCl (vitamin B1) 100 mg 100 mg PO DAILY #30 tabs 07/13/24 03/22/25 Rx tablet gabapentin 300 mg capsule 300 mg PO Q12H 10/18/24 03/22/25 History mirtazapine 15 mg tablet 15 mg PO QHS 10/18/24 03/22/25 History propranolol 40 mg tablet 60 mg PO BID blood pressure 12/08/24 03/22/25 History sennosides 8.6 mg-docusate sodium 1 tab-cap PO BID PRN constipation 12/08/24 Unknown History 50 mg tablet (Senna Plus) venlafaxine 150 mg tablet,extended 150 mg PO QDAY 12/08/24 03/22/25 History release 24 hr tirzepatide (weight loss) 2.5 2.5 mg subcut QWEEK 02/21/25 03/20/25 History mg/0.5 mL subcutaneous solution (Zepbound) magnesium 250 mg tablet 250 mg PO DAILY 03/22/25 03/22/25 History mecobalamin (vitamin B12) 1,000 1,000 mcg PO DAILY 03/22/25 03/22/25 History mcg lozenges Allergy/AdvReac Type Severity Reaction Status Date / Time codeine Allergy Unknown Verified 03/22/25 15:15 latex Allergy Hives Verified 03/22/25 15:15 Penicillins Allergy Unknown Verified 03/22/25 15:15 Family History Father CAD (coronary artery disease) Myocardial infarction History of coronary artery bypass surgery Grandmother Cardiac pacemaker in situ Mother Hypertension Surgical History History of left heart catheterization (LHC) (~07/08/19) History of lumbar spinal fusion History of herniorrhaphy History of hysterectomy History of appendectomy History of cholecystectomy History of bariatric surgery Social History [facility]: [facility] Smoking Status: Former smoker alcohol intake: former details: occasional substance use type: does not use caffeine: Yes Type: carbonated beverages Number of servings: 1 and coffee ROS ROS ED Constitutional Constitutional ED: Denies chills, fever(s), subjective or weight loss Eyes Eyes: Denies blurry vision or change in vision ENT ENT ED: Denies rhinorrhea or sore throat Cardiovascular Cardiovascular: Reports chest pain; Denies orthopnea, palpitations, paroxysmal nocturnal dyspnea or racing heartbeat Respiratory/Chest Respiratory/Chest: Reports dyspnea and dyspnea on exertion; Denies cough, orthopnea, paroxysmal nocturnal dyspnea or sputum Gastrointestinal Gastrointestinal: Denies abdominal pain, constipation, diarrhea, melena, nausea or vomiting Musculoskeletal Musculoskeletal: Denies arthralgias, back pain or myalgias Integumentary Denies abscess, Abrasions or rash Neurologic Neurologic: Reports weakness; Denies paresthesias Psychiatric Psychiatric: Denies anxiety or depression Endocrine Endocrinology: Denies cold intolerance or heat intolerance Hematologic/Lymphatic Hematologic/Lymphatic: Reports systems reviewed and no addt'l complaints, except as documented EXAM Physical Exam Const Vital Signs: 03/22/25 15:13 03/22/25 16:01 03/22/25 16:03 Temperature 97.6 F L Temperature Source Oral Pulse Rate 81 80 Respiratory Rate 24 H 14 Respiratory Effort Normal Non-Labored Respiratory Depth Normal Respiratory Pattern Normal Blood Pressure 158/81 H Blood Pressure Mean 106 Pulse Ox 95 Oxygen Delivery Method Room Air Room Air 03/22/25 16:20 03/22/25 17:00 03/22/25 18:00 Temperature Temperature Source Pulse Rate 74 74 Respiratory Rate 16 16 Respiratory Effort Respiratory Depth Respiratory Pattern Blood Pressure 109/77 130/69 H Blood Pressure Mean 87 88 Pulse Ox Oxygen Delivery Method Room Air 03/22/25 19:00 Temperature Temperature Source Pulse Rate 73 Respiratory Rate 16 Respiratory Effort Respiratory Depth Respiratory Pattern Blood Pressure 100/65 Blood Pressure Mean 77 Pulse Ox Oxygen Delivery Method Positive well nourished and well developed Constitutional Narrative: BMI is 54.7. Patient is slightly tachypneic. There is no use of accessory muscles. General Appearance ED: well developed; Negative for pallor HEENT HEENT Narrative: Head is atraumatic normocephalic. Ears normal. Nares patent. Posterior pharynx is normal. Eyes PERRL and EOMs intact bilaterally General Eye ED: Negative for pale conjunctiva or scleral icterus Neck no lymphadenopathy, supple and no JVD Chest Wall palpation of chest normal Resp normal respiratory effort and clear to auscultation bilaterally Cardio regular rate, regular rhythm, S1 normal heart sound, S2 normal heart sound and no murmurs GI GI Narrative: Soft flabby. There is no discrete tenderness. Exam is limited due to body habitus. Back/Spine no CVA tenderness Extremity normal to inspection Extremity Narrative: 1 to 2 mm of pitting edema. General Extremety ED: Yes edema General Extremity: edema Neuro oriented x3 and CN's II-XII intact bilaterally Sensorium / Orientation: alert Psych mental status grossly normal Skin no rashes or lesions noted, no wounds and skin turgor normal General Skin Exam: elasticity normal; Negative for jaundice or pallor MDM MDM MDM Narrative Medical decision making narrative: Patient is lymphedema and weight gain could be due to her fatty liver disease. What is of concern is the fact that she has dyspnea with minimal activity and more importantly chest heaviness that substernal that comes on with activity and both resolve with rest. She has known coronary disease based on cardiac catheterization performed at [facility] 2019. Her workup included EKG, chest x-ray, troponin, CBC to assess H&H and electrolyte panel to assess renal function since she in all likelihood will need a cardiac catheterization. History & Record Review Additional record(s) reviewed:: Prior outpatient record and No prior records Lab Data Attestation: I reviewed the patient's lab results. Lab results narrative: CBC is unremarkable. Both troponins are normal. BNP is normal. Comprehensive metabolic panel is normal. Labs: Laboratory Results - last 24 hr 03/22/25 03/22/25 15:58 17:52 WBC 6.7 RBC 4.77 Hgb 14.0 Hct 42.1 MCV 88.3 MCH 29.4 MCHC 33.3 RDW Std Deviation 46.9 H RDW Coeff of Xavier 14.6 Plt Count 163 MPV 11.4 Immature Gran % (Auto) 0.600 Neut % (Auto) 66.1 Lymph % (Auto) 20.9 Stevens % (Auto) 7.1 Eos % (Auto) 4.7 Baso % (Auto) 0.6 Absolute Neuts (auto) 4.5 Absolute Lymphs (auto) 1.41 Nucleated RBC % 0 Sodium 140 Potassium 4.5 Chloride 103 Carbon Dioxide 23.9 Anion Gap 13 BUN 15 Creatinine 1.19 Estim Creat Clear Calc 71.72 Est GFR (MDRD) Non-Af 51 L BUN/Creatinine Ratio 12.4 Glucose 98 Calcium 9.2 Troponin T High Sens 12 Troponin T Hi Sens 2 Hr 10 NT pro BNP II 213 Radiography Chest X-Ray - ED: 2 View and Read by ED Physician (Limited study due to body habitus. There is elevation of the right high hemidiaphragm. There is no evidence of infiltrate, curly B-lines or cephalization. There is no evidence of effusion or pneumothorax. The cardiac silhouette and size is unchanged from prior with findings consistent with cardi) Diagnostic Testing: Clinical Impression(s) from Imaging Studies Chest X-Ray 03/22/25 16:06 IMPRESSION: The lateral view is somewhat limited by patient motion. Right upper quadrant abdominal surgical clips are again seen. Prior cervical surgery is noted. Mild right hemidiaphragm elevation is seen. Lungs are hypoinflated, but appear clear of acute disease. No pleural effusion or pneumothorax is evident. The cardiomediastinal silhouette is stable, without evidence of cardiomegaly. No evidence of acute cardiopulmonary disease. Reading Location: [place] [id number] EKG Initial EKG: Attestation: I personally reviewed and interpreted this EKG as follows: Interpretation: Sinus Rhythm (Rate is 79. EKG is normal. Patient was asymptomatic at the time the EKG was performed. OH interval is 180 ms Rickers duration 92 ms. QT duration 388 ms. [place] is normal) Management Discussion w/another healthcare provider: Hospitalist (Case was discussed with Dr. Harpreet Dean. Explained that the reason for admission is the fact that she gets chest pain with minimal activity and can only walk 10 to 15 feet before she becomes dyspneic and develops chest pressure.) Treatment and Re-Evaluation :: Since patient is having dyspnea with minimal activity echo is very with rest right concern is this represents new onset angina. My recommendation is 23 observation even though her troponins are normal. Patient has chest tightness with minimal walking. Discharge Plan Dx/Rx/DC Orders Clinical Impression: Chest pain, exertional, Essential hypertension, Edema, Coronary artery disease, HOUSE (dyspnea on exertion), Body mass index (BMI) greater than 50 Disposition Disposition: Acute Care Hospital [facility]
[2025-03-22 16:47] LABS: Hematocrit 42.1 % (37-47); Hemoglobin 14.0 g/dL (12.0-15.0); Immature Granulocytes Count 0.040 X10^3/uL (0.0-0.0); Mean Corp Hgb Conc 33.3 g/dL (32-36); Mean Corpuscular Volume 88.3 fL (81-99); Mean Platelet Vol. 11.4 fl (6.2-12.0); NRBC Flagged by Analyzer 0 % (0-5); Platelet Count 163 K/mm3 (150-450); RBC Distribution Width CV 14.6 % (11.6-14.6); RBC Distribution Width SD 46.9 fl (35.1-43.9); Red Blood Count 4.77 M/mm3 (4.2-5.4); White Blood Count 6.7 K/mm3 (4.4-11.0)
[2025-03-22 17:19] LABS: Anion Gap 13 (5-15); BUN 15 mg/dL (4-19); BUN/Creat Ratio 12.4 RATIO (10-20); Calcium,Total 9.2 mg/dL (7.6-11.0); Carbon Dioxide 23.9 mmol/L (21.0-32.0); Chloride 103 mmol/L (98-108); Estimated Creatinine Clearance 71.72 ml/min (50-250); Glucose 98 mg/dL (70-99); Potassium 4.5 mmol/L (3.3-5.1); Pro- Brain NATRIURETIC PEPTIDE 213 pg/mL (<=900); Troponin T High Sensitivity 12 ng/L (<=14)
[2025-03-22 18:31] LABS: Troponin T High Sens 2 HR 10 ng/L (<=14)
--- NOTE | 2025-03-22 19:40 | PCM.HP.STD ---
[facility] - General General Date of Admission: 03/22/25 Date of Service: 03/22/25 Chief Complaint: HOUSE and Chest Pressure. HPI Narrative MICHELINE FOX, is a 64 F with a past medical history of essential hypertension; on propranolol, hyperlipidemia; on atorvastatin, former tobacco abuse, super-morbid (class III) obesity; with BMI of 54.7 this admission on tirzepatide in spite of previous gastric bypass, KELLY; noncompliant with CPAP, history of fatty liver; followed by Dr. Iyer of gastroenterology, history of hepatitis C; status posttreatment (2015), history of EtOH abuse; with subsequent cirrhosis, history of CAD; s/p LHC in [place], [place] which revealed nonobstructive lesions (2019), history of TIA, neuropathy; on gabapentin BID, RLS, depression; on trazodone, mirtazapine and venlafaxine, history of internal and external hemorrhoids with occasional blood in stools; s/p recent hemorrhoidectomy, OA; s/p lumbar fusion with subsequent chronic pain causing patient to ambulate with cane at baseline and history of admission here from July 10, 2020 for to July 13, 2024 for treatment of hypokalemia with hyperbilirubinemia and UDS positive for benzodiazepines with superimposed hepatic encephalopathy causing AMS with falls with a BMI of 39 at that time who presents to [facility] ER complaining of dyspnea on exertion and chest pressure. Ms. Fox reports her symptoms began approximately 1 week prior to admission with a sudden-onset of dyspnea on exertion and unintentional weight gain over the past month. She states her symptoms are intermittent and she does admit to associated chest pressure that is midsternal, mild and pressure-like without radiation with symptoms made worse by exertion and improving with rest. She states she can only walk ~10 feet before becoming completely exhausted. She was actually sent to the ER from gastroenterology with complaints of epigastric abdominal pain, bloating and blood in stool. She is not complaining of abdominal pain at this time and she states her occasional bleeding has been previously attributed to her hemorrhoids by gastroenterology. She denies similar previous symptoms. She also denies associated fever, chills, night sweats, headaches, visual changes, runny nose, sore throat, ear pain, palpitations, heart racing, orthopnea, PND or rash. In the ER she was noted to have oxygen saturations of 92 to 97% on room air with unremarkable vital signs and laboratory studies including 2 negative troponin T readings and a normal NT pro-BNP II of 213 pg/mL with a hemoglobin of 14 g/dL and MCV of 88.3 fL. The ER physician was concerned about discharging patient home due to her lack of mobility which is likely due to Obesity Hypoventilation Syndrome complicated by noncompliance with CPAP for KELLY with a low-index of clinical suspicion for underlying ACS. Nevertheless, she was admitted to PCU under observation status for ongoing care for stay that is expected to be less than 2 midnights. [facility] Medical History (Updated 03/22/25 @ 20:[address] Harpreet Williamson, DO) Anxiety Depression Congestive heart failure (CHF) Wears dentures Wears glasses Arthritis Ambulates with cane Cirrhosis Restless legs TIA (transient ischemic attack) Former smoker CPAP (continuous positive airway pressure) dependence Sleep apnea History of echocardiogram History of stress test Hypertension Cardiology follow-up encounter Chronic insomnia History of cirrhosis Obesity (BMI 30-39.9) Sleep apnea Chest pain Atherosclerotic heart disease of [place] coronary artery without angina pectoris Hepatitis C Essential hypertension Home Medications ?Medication ?Instructions ?Recorded ?Last Taken ?Type atorvastatin 40 mg tablet 40 mg PO DAILY cholesterol 07/10/24 03/21/25 History trazodone 100 mg tablet 100 mg PO DAILY mental health 07/10/24 03/21/25 History thiamine HCl (vitamin B1) 100 mg 100 mg PO DAILY #30 tabs 07/13/24 03/22/25 Rx tablet gabapentin 300 mg capsule 300 mg PO Q12H 10/18/24 03/22/25 History mirtazapine 15 mg tablet 15 mg PO QHS 10/18/24 03/22/25 History propranolol 40 mg tablet 60 mg PO BID blood pressure 12/08/24 03/22/25 History sennosides 8.6 mg-docusate sodium 1 tab-cap PO BID PRN constipation 12/08/24 Unknown History 50 mg tablet (Senna Plus) venlafaxine 150 mg tablet,extended 150 mg PO QDAY 12/08/24 03/22/25 History release 24 hr tirzepatide (weight loss) 2.5 2.5 mg subcut QWEEK 02/21/25 03/20/25 History mg/0.5 mL subcutaneous solution (Zepbound) magnesium 250 mg tablet 250 mg PO DAILY 03/22/25 03/22/25 History mecobalamin (vitamin B12) 1,000 1,000 mcg PO DAILY 03/22/25 03/22/25 History mcg lozenges Allergy/AdvReac Type Severity Reaction Status Date / Time codeine Allergy Unknown Verified 03/22/25 15:15 latex Allergy Hives Verified 03/22/25 15:15 Penicillins Allergy Unknown Verified 03/22/25 15:15 Family History Father CAD (coronary artery disease) Myocardial infarction History of coronary artery bypass surgery Grandmother Cardiac pacemaker in situ Mother Hypertension Surgical History History of left heart catheterization (LHC) (~07/08/19) History of lumbar spinal fusion History of herniorrhaphy History of hysterectomy History of appendectomy History of cholecystectomy History of bariatric surgery Social History housing: detention Smoking Status: Former smoker alcohol intake: former details: occasional substance use type: does not use caffeine: Yes Type: carbonated beverages Number of servings: 1 and coffee ROS ROS Narrative Review of Systems: Constitutional: Patient denies fever or chills. Eyes: Patient denies changes in vision or discharge from eyes. ENT: Patient denies runny nose, sore throat or ear pain. Resp: Patient admits to dyspnea on exertion after walking up ~10 feet but she denies cough or wheezing. CV: Patient admits to chest pressure that coincides with exertion as per HPI. GI: The patient complained to gastroenterology about abdominal pain, bloating and blood in stools as per HPI. : Patient denies dysuria or hematuria. MSK: Patient admits to generalized weakness and walks with a cane at baseline. Skin: Patient denies rash, abscess, wounds or jaundice. Psych: Patient denies symptoms of uncontrolled depression or anxiety. Neuro: Patient denies headache, paresthesias or focal neurologic deficits. Allergy: Patient denies lip swelling, tongue swelling or urticaria. Hematology: Patient admits to scant blood in stools as per HPI. Endocrinology: Patient denies polyuria, polydipsia, polyphagia or heat/cold intolerance. 14 point ROS otherwise negative except for positives noted above in HPI. Vital Signs Vital Signs Vital Signs: 03/22/25 15:13 03/22/25 16:01 03/22/25 16:03 Temperature 97.6 F L Temperature Source Oral Pulse Rate 81 80 Respiratory Rate 24 H 14 Respiratory Effort Normal Non-Labored Respiratory Depth Normal Respiratory Pattern Normal Blood Pressure 158/81 H Blood Pressure Mean 106 Pulse Ox 95 Oxygen Delivery Method Room Air Room Air 03/22/25 16:20 03/22/25 17:00 03/22/25 18:00 Temperature Temperature Source Pulse Rate 74 74 Respiratory Rate 16 16 Respiratory Effort Respiratory Depth Respiratory Pattern Blood Pressure 109/77 130/69 H Blood Pressure Mean 87 88 Pulse Ox Oxygen Delivery Method Room Air 03/22/25 19:00 Temperature Temperature Source Pulse Rate 73 Respiratory Rate 16 Respiratory Effort Respiratory Depth Respiratory Pattern Blood Pressure 100/65 Blood Pressure Mean 77 Pulse Ox Oxygen Delivery Method Weight Weight: 329 lb Body Mass Index (BMI) 54.7 Physical Exam Const alert, oriented x3 and no apparent distress Constitutional Narrative: Patient is morbidly obese but nontoxic in appearance. General Appearance: cooperative HEENT normocephalic, head/scalp atraumatic, hearing grossly normal bilaterally and moist oral mucous membranes Eyes PERRL, EOMs intact bilaterally and conjunctivae normal Neck no lymphadenopathy and supple Resp normal respiratory effort, no retractions, no use of accessory muscles and clear to auscultation bilaterally Cardio regular rate and regular rhythm GI normal to inspection, nondistended, normoactive bowel sounds, soft to palpation, non-tender and non-distended GI Narrative: Super-morbid obesity. Extremity normal to inspection, full ROM and no clubbing, cyanosis or edema Skin Skin Narrative: Patient has evidence of rash, abscess, wounds or jaundice. Neuro oriented x3, CN's II-XII intact bilaterally, moves all extremities and no focal motor deficits Sensorium / Orientation: awake, alert, oriented to person, oriented to place and oriented to time Speech: speech normal Psych affect normal Results Medical Records Data Attestation: I reviewed the patient's medical records Lab / Micro Data Attestation: I reviewed the patient's lab results. 03/22/25 15:58 03/22/25 15:58 Labs: Laboratory Results - last 24 hr 03/22/25 15:58: WBC 6.7, RBC 4.77, Hgb 14.0, Hct 42.1, MCV 88.3, MCH 29.4, MCHC 33.3, RDW Std Deviation 46.9 H, RDW Coeff of Xavier 14.6, Plt Count 163, MPV 11.4, Immature Gran % (Auto) 0.600, Neut % (Auto) 66.1, Lymph % (Auto) 20.9, [place] % (Auto) 7.1, Eos % (Auto) 4.7, Baso % (Auto) 0.6, Absolute Neuts (auto) 4.5, Absolute Lymphs (auto) 1.41, Nucleated RBC % 0, Sodium 140, Potassium 4.5, Chloride 103, Carbon Dioxide 23.9, Anion Gap 13, BUN 15, Creatinine 1.19, Estim Creat Clear Calc 71.72, Est GFR (MDRD) Non-Af 51 L, BUN/Creatinine Ratio 12.4, Glucose 98, Calcium 9.2, Troponin T High Sens 12, NT pro BNP II 213 03/22/25 17:52: Troponin T Hi Sens 2 Hr 10 Imaging Radiology Impression Chest X-Ray 03/22/25 16:06 IMPRESSION: The lateral view is somewhat limited by patient motion. Right upper quadrant abdominal surgical clips are again seen. Prior cervical surgery is noted. Mild right hemidiaphragm elevation is seen. Lungs are hypoinflated, but appear clear of acute disease. No pleural effusion or pneumothorax is evident. The cardiomediastinal silhouette is stable, without evidence of cardiomegaly. No evidence of acute cardiopulmonary disease. Reading Location: [facility] Assessment & Plan Assessment/Plan (1) HOUSE (dyspnea on exertion): (2) Chest pain, exertional: (3) Weight gain: (4) Body mass index (BMI) greater than 50: (5) Noncompliance with CPAP treatment: (6) Obesity hypoventilation syndrome: (7) Epigastric pain: (8) Bloating: (9) Blood in stool: PLAN: Plan 1. Dyspnea on Exertion with Chest Pressure relieved by rest - Admit to PCU under observation status. Check echocardiogram to evaluate LVEF. Check chemical stress test to evaluate for underlying ischemia. Continue aspirin begun in ER and resume statin plus check lipid profile. Doubt ACS but because of the severity of her symptoms ER physician desired cardiac workup to be certain. 2. Super-morbid (class III) obesity; with BMI of 54.7 this admission on tirzepatide in spite of previous gastric bypass with strong clinical evidence of Obesity Hypoventilation Syndrome complicated by noncompliance with CPAP for KELLY likely causing #1 - Weight loss will be recommended. Patient will be also recommended to be compliant with CPAP. Check TSH. This complicates her case and may hamper recovery. 3. Intermittent Abdominal Pain with bloating and blood in stool complicating #1 & #2 - Check CT scan of the abdomen and pelvis this admission and Hemoccult stools. 4. OA; s/p lumbar fusion with subsequent chronic pain causing patient to ambulate with cane at baseline adding to the medical complexity of #1 - #3 - PT/OT and Case Management to consult and treat on rounds in the AM for further recommendations with help appreciated in advance. 5. History of CAD; s/p LHC in [place], [place] which revealed nonobstructive lesions (2018) - Noted. 6. History of admission here from July 10, 2020 for to July 13, 2024 for treatment of hypokalemia with hyperbilirubinemia and UDS positive for benzodiazepines with superimposed hepatic encephalopathy causing AMS with falls with a BMI of 39 at that time - Noted. 7. Essential hypertension; on propranolol - Continue propranolol as previous. 8. Hyperlipidemia; on atorvastatin - Maintain statin and check Lipid Profile. 9. History of hepatitis C; status posttreatment (2015) - Noted. 10. History of EtOH abuse; with subsequent cirrhosis in the setting of Fatty Liver Disease followed by GI - Noted. 11. Former tobacco abuse - Noted. 12. History of TIA - Noted. 13. Neuropathy; on gabapentin BID - Resume gabapentin as before. 14. RLS - Stable. 15. Depression; on trazodone, mirtazapine and venlafaxine - Maintain home regimen. 16. DVT prophylaxis - SCD's only in light of #3 creating relative contraindication to chemoprophylaxis at this time. Total time: Approximately (but not less than) 70 minutes.
--- NOTE | 2025-03-22 20:20 | CT_ITS ---
PROCEDURE: CT ABD/PELVIS W/WO CONTRAST 03/22/2025 REASON FOR EXAM: ABDOMINAL PAIN, BLOATING AND BLOOD IN STOOLS. TECHNIQUE: CT ABD/PELVIS W/WO CONTRAST Coronal and Sagittal reconstruction series were provided. CONTRAST: Isovue 370 VOLUME: 99 mL One or more dose reduction techniques were used (e.g., Automated exposure control, adjustment of the mA and/or kV according to patient size, use of iterative reconstruction technique. RADIATION DOSE SUMMARY: CTDlvol: 70 mGy DLP: 3032 mGycm COMPARISON: No FINDINGS: Basilar atelectasis. Normal heart size. Small pericardial effusion. Cirrhotic morphology and diffuse hepatic steatosis. Status post cholecystectomy. Unremarkable pancreas, spleen, adrenal glands, kidneys. No hydronephrosis or ureteral stone. Normal bladder. Status post hysterectomy. No retroperitoneal or pelvic adenopathy. No free air. Status post gastric surgery. Nondistended bowel. Status post appendectomy. No acute large bowel findings. Lumbar spine scoliosis, degeneration, prior surgery. CT/CT Abd/Pelvis W/WO Contrast IMPRESSION: No acute findings Reading Location: [place] [id number]
--- NOTE | 2025-03-22 20:26 | ECHOCS_ITS ---
Reason For Study Reason For Study: Chest Pain Procedure This was a 2D Doppler, Color Flow transthoracic echocardiogram. The study was technically limited. The study was technically difficult. Limited views were obtained. Contrast injection was performed. No apical window. Exam performed in department. Left Ventricle Normal left ventricle. The estimated ejection fraction is 55???60 %. Right Ventricle Normal right ventricle. Atria The left atrium is moderately enlarged. Mitral Valve Mitral valve not well visualized. Tricuspid Valve Normal tricuspid valve. Aortic Valve The aortic valve is not well visualized in the short axis view. Pulmonic Valve The pulmonic valve is not well visualized. Great Vessels The aortic root is not well visualized. Medication Diluted definity 1ml given slow IV push to enhance endocardial definition. MMode/2D Measurements & Calculations LVIDd: 4.6 cm IVSd: 1.3 cm Ao root diam: 3.3 cm LVIDs: 2.9 cm LVPWd: 1.0 cm FS: 37.0 % LA dimension(2D): 3.5 cm Doppler Measurements & Calculations PA V2 max: 112.6 cm/sec ECHO/Echo Complete W/ Contrast Interpretation Summary The estimated ejection fraction is 55???60 %. Overall LV systolic function appears normal TDS With limited transthoracic echocardiogram Ordering Physician: Harpreet Williamson Performed By: Jagdish Morales RCS
--- NOTE | 2025-03-22 20:44 | CASEMGMT ---
Care Management Face to Face with patient for initial transition planning/care coordination assessment in the ED.? This board writer introduced self and role at [facility]. Patient alert and oriented. Patient willing to participate in assessment and is able to answer all questions appropriately.? Care providers, pharmacy, and demographics verified. Admitting Diagnosis: ?SOB Other diagnosis history: ?CHF, Cirrhosis, hep C, hypertension PCP: Royal Gordillo: Friend Preferred [facility]acy: [facility] Insurance: ?[place] Prescription Benefit: ?yes Living Will/HPOA: completed, will bring in LNOK: daughters Living Arrangements: ?Patient lives alone in apartment.? States she has been unable to cook, has trouble with showering and stairs.? Has two stairs to get into her apartment if she [place] on the street, if she [place] in her garage she has 20 stairs to get inside Transportation: ?patient drives DME: cane, walker, shower bench HHC: ?none SNF/Rehab: [facility] Community Resources: none Behavioral Health History: ?anxiety, depression Patient goals: Patient wishes to discharge home, would like home health care at this time. Patient denies any further needs or concerns at this time. Shelley Maddox, AMF MECHANIC, MOLD PULLER
[2025-03-22 20:58] LABS: Magnesium 2.1 mg/dL (1.5-2.2)
[2025-03-22] MEDS: DiphenhydrAMINE 50 MG/ML Syringe 25 MG IV (21:49)
[2025-03-22] MEDS: 0.9% Saline Lock 10 ML Syringe IV ×2 (21:50→22:43)
[2025-03-22 21:55] LABS: Troponin T High Sens 4 HR 12 ng/L (<=14)
--- NOTE | 2025-03-22 23:00 | EKG12_ITS ---
Test Reason : STRESS TEST Blood Pressure : */* mmHG Vent. Rate : 72 BPM Atrial Rate : 72 BPM P-R Int : 174 ms QRS Dur : 94 ms QT Int : 414 ms P-R-T Axes : 49 40 46 degrees QTcB Int : 453 ms Normal sinus rhythm Normal ECG When compared with ECG of 22-Mar-2025 23:36, MANUAL COMPARISON REQUIRED DATA IS UNCONFIRMED Confirmed by OTONIEL CHUNG, KWAKU ([id number]), primer expeditor and drier PATEL BENAVIDEZ ([id number]) on 03/23/2025 1:25:01 PM Referred By: Confirmed By: KWAKU FREDERICK MD
--- OUTSIDE RECORDS SUMMARY | 2025-03-22 23:02 | XMS RPT_ITS | CCD ---
Author Organization [facility] CliniSynd Care Team Providers Care Asp Net Programmer Name Role Phone Leticia Sylvester Unavailable Unavailable Yousuf, Sondra S Unavailable Unavailable Yousuf, Sondra S Unavailable Unavailable Win, Nyan Unavailable Unavailable Win, Nyan Unavailable Unavailable Lucille, Valentino J Unavailable Unavailable Lucille, Valentino J Unavailable Unavailable Charles Russell Unavailable Unavailable Charles Russell Unavailable Unavailable Adam Lyn Unavailable Unavailable Adam Lyn Unavailable Unavailable [facility] Iasukumar Primary Care Provider [phone] Higinio Iasukumar Primary Care Provider [phone] [facility] Primary Care Unavailable DIGNA REAGAN Referring Unavaila ble DIGNA REAGAN Admitting Unavaila ble Higinio [facility] Primary Care Provider Digna Reagan Unavailable Higinio CHUNG Iasukumar Primary Care Provider Digna Reagan DPM Unavailable Digna Reagan DPM Unavailable [phone] JUSTIN DAMALIE N Referring Unavailable SHIRIMA, DAMALIE N Attending Unavailable [facility] Primary Care Unavailable SELF, SELF Referring Unavailable RICE, LISA N Attending Unavailable [facility] Primary Care Unavailable SELF, SELF Referring Unavailable RICE, LISA N Attending Unavailable WIN, NHAN Primary Care Unavailable WIN, [facility] Primary Care Unavailable SELF, SELF Referring Unavailable SHIRIMA, DAMALIE N Attending Unavailable WIN, NHAN Primary Care Unavailable WIN, NYAN Referring Unavailable SHIRIMA, DAMALIE N Attending Unavailable WIN, [facility] Primary Care Unavailable SHIRIMA, DAMALIE N Attending Unavailable NORIA, MARINE Referring Unavailable [facility], [facility] Primary Care Unavailable RICE, LISA N Referring Unavailable RICE, LISA N Attending Unavailable [facility], NYAN Referring Unavailable PUMPERNESHA Attending Unavailable [facility], [facility] Primary Care Unavailable [facility], [facility] Primary Care Unavailable RICE, LISA N Referring Unavailable MEIR GASPAR Attending Unavailable SELF, SELF Referring Unavailable SHIRIMA, DAMALIE N Attending Unavailable [facility], [facility] Primary Care Unavailable [facility], [facility] Referring Unavailable SHIRIMA, DAMALIE N Attending Unavailable [facility], [facility] Primary Care Unavailable SELF, SELF Referring Unavailable SHIRIMA, DAMALIE N Attending Unavailable [facility], [facility] Primary Care Unavailable PUMPER, NESHA L Attending Unavailable [facility], [facility] Primary Care Unavailable RICE, LISA N Referring Unavailable SELF, SELF Referring Unavailable [facility], [facility] Primary Care Unavailable RICE, LISA N Attending Unavailable Higinio CHUNG, [facility] Primary Care Provider Terrence CHUNG, Lupillo Unavailable Yanet RECRUITING TEAM LEAD-TELEPHONE ASSEMBLER, Jaime Unavailable [facility] Care Provider Terrence CHUNG, Lupillo Unavailable Yanet RECRUITING TEAM LEAD-TELEPHONE ASSEMBLER, Jaime Unavailable Robert LINN-TELEPHONE ASSEMBLER, Eusebia Unavailable Higinio CHUNG, [facility] Primary Care Provider [phone] [facility] Yanna CHUNG, Ishaan Unavailable [facility] Unavailable JUDY GEORGE Attending Unavailable MIN SOUSA Attending Unavailab le [facility] Care Unavailable [facility] [phone] Terrence CHUNG, Lupillo Unavailable Yanet RECRUITING TEAM LEAD-TELEPHONE ASSEMBLER, Jaime Unavailable [phone] [facility] Care Provider Robert KAISER-TELEPHONE ASSEMBLER, Eusebia [facility]available [facility] CAROL ANN BONILLA Attending Unavailable [facility] Primary Care Unavailable SELF, SELF Referring Unavailable CAROL ANN BONILLA Referring Unavailable [facility], [facility] Primary Care Unavailable CAROL ANN BONILLA Attending Unavailable CALVIN PIMENETL Admitting Unavailable CRISTIANO BEE Attending Unavailable [facility], [facility] Primary Care Unavailable [facility], [facility] Primary Care Unavailable [facility], [facility] Primary Care Unavailable Exira Eduardo CALDERA S Primary Care Provider EDUARDO MURCIA S Referring Unavailable ROYALEDUARDO S Primary Care Unavailable [facility], [facility] Primary Care Unavailable AILEEN CHARLES Attending Unavailable [facility], [facility] Primary Care Unavailable SOHAM SIFUENTES Attending Unavailable SYSTEM, PROVIDER NOT IN Referring Unavaila ble [facility], [facility] Primary Care Unavailable Jannie RECRUITING TEAM LEAD-TELEPHONE ASSEMBLER, Eusebia Unavailable [phone] PROVIDER, UNKNOWN Admitting Unavailable PROVIDER, UNKNOWN Attending Unavailable JAIME HOLT Referring Unavailable [facility], [facility] Primary Care Unavailable PROVIDER, UNKNOWN Admitting Unavailable JAIME HOLT Attending Unavailable [facility], [facility] Primary Care Unavailable PROVIDER, UNKNOWN Admitting Unavailable PROVIDER, UNKNOWN Attending Unavailable [facility], [facility] Primary Care Unavailable PROVIDER, UNKNOWN Attending Unavailable JAIME HOLT Referring Unavailable [facility], [facility] Primary Care Unavailable PROVIDER, UNKNOWN Admitting Unavailable Unavailable Primary Care Provider Unavailabl e EDUARDO MURCIA S Primary Care Unavailable Exira , Eduardo S Primary Care Provider Exira Eduardo CALDERA S Primary Care Provider EVA MALAGON Referring Unavailable ALAINA PERALTA Attending Unavailable EDUARDO MURCIA S Primary Care Unavailable HIGINIO, NHSUKUMAR Primary Care Unavailable ELI MORATAYA Referring Unavailable Higinio CHUNG, Dr. Rhodes Primary Care Provider Dr. Leticia Sylvester MD Referring Provider Dr. Silas Pena MD Attending Provider Dnoald DRILL RUNNER HELPER-CDestiny Attending Provider [phone] Donald DRILL RUNNER HELPER-CDestiny Referring Provider Jose Eduardo DRILL RUNNER HELPER-CVaishnavi Attending Provider Jose Eduardo JIMENEZ-Vaishnavi Palomo Referring Provider Dr. Eduardo Murcia MD Primary Care Provider [phone] Yanna CHUNG, Ishaan Unavailable [facility] Primary Care Unavailable YAJAIRA CANALES Referring Unavailable YAJAIRA CANALES Admitting Unavailable YAJAIRA CANALES Attending Unavailable [place], [place] Primary Care Unavailable SONNY NAVARRO Attending Unavailable WIN, NYAN Primary Care Unavailable ROYAL, EDUARDO S Attending Unavailable ROYAL, EDUARDO S Primary Care Unavailable ROYAL, EDUARDO S Attending Unavailable ROYAL, EDUARDO S Primary Care Unavailable ROYAL, EDURADO S Attending Unavailable ROYAL, EDUARDO S Referring Unavailable ROYAL, EDUARDO S Primary Care Unavailable Higinio CHUNG, Dr. Rhodes Primary Care Provider Higinio CHUNG, Dr. Rhodes Referring Provider Royal CHUNG, Dr. Padilla Referring Provider Friend , Dr. Thapa Attending Provider Shireen CALDERA, Dr. Thapa Other Provider Vinicio Reeder Attending Unavailable [facility] Primary Care Unavailable Eva Williamson Admitting Unavailable Eva Williamson Consulting Unavailable Ayaan, Tejinder Consulting Unavailable Adeli, Amir Consulting Unavailable Hinduja, Mary Consulting Unavailable Dariel, Katy Consulting Unavailable Zha, Taylor Consulting Unavailable Alex, Jose Consulting Unavailable Flo, Mindy Consulting Unavailable BitJaved dozier Consulting Unavailable Calvin Diaz Consulting Unavailable Wesley Edwards Consulting Unavailable An Chapman Consulting Unavailable Nir Ahn Consulting Unavailable Jie Vinson Consulting Unavailable Silviano Krishnamurthy Consulting Unavailable Zajocy, Mhd Hugo Consulting UnavailAlex Jerome Consulting Unavailable Tryell Mccormick Consulting Unavailable Daryl Velásquez Consulting Unavailable Leanne Albarran Consulting Unavailable Jace Araya Consulting Unavailable Exira, Eduardo Referring Unavailable Exira, Eduardo Primary Care Unavailable Elier Iyer Attending Unavailable Exira, Eduardo Primary Care Unavailable Vaishnavi Whitt Attending Unavailable Vaishnavi Whitt Referring Unavailable Chas Modi Referring Unavailable Win, Iaan Primary Care Unavailable Eva Williamson Admitting Unavailable Eva Williamson Attending Unavailable Eva Williamson Consulting Unavailable Vinicio Reeder Attending Unavailable Vinicio Reeder Consulting Unavailable AyaanTejinder guallpa Consulting Unavailable Adeli, Amir Consulting Unavailable Hinduja, Mary Consulting Unavailable Dariel, Katy Consulting Unavailable Zha, Taylor Consulting Unavailable Alex, Jose Consulting Unavailable Flo, Mindy Consulting Unavailable Bittaderrick, Javed Consulting Unavailable Calvin Diaz Consulting Unavailable Wesley Edwards Consulting Unavailable An Chapman Consulting Unavailable Nir Ahn Consulting Unavailable Jie Vinson Consulting Unavailable Ridbunny, Silviano Consulting Unavailable Zajocy, Julianad Hugo Consulting UnavailAlex Jerome Consulting Unavailable Mccormick, Tyrell Consulting Unavailable Daryl Velásquez Consulting Unavailable Leanne Albarran Consulting Unavailable Hankenyatta, Yousepauly Consulting Unavailable Jose EduardoVaishnavi Attending Unavailable Win, Nyan Primary Care Unavailable Win, Nyan Referring Unavailable Silas Pena Attending Unavailable Win, Nyan Primary Care Unavailable Win, Nyan Referring Unavailable Exira, Eduardo Referring Unavailable Friend Elier Attending Unavailable Friend, Elier Consulting Unavailable Exira, Eduardo Primary Care Unavailable Jose EduardoVaishnavi Attending Unavailable Win, Nyan Referring Unavailable Exira, Eduardo Primary Care Unavailable BorDestiny alegria Referring Unavailable Destiny Bennett Attending Unavailable Win, Nyan Primary Care Unavailable Exira, Eduardo Primary Care Unavailable Jose EduardoVaishnavi Referring Unavailable Jose EduardoVaishnavi Attending Unavailable Exira, Eduardo Primary Care Unavailable Jose EduardoVaishnavi Referring Unavailable Jose EduardoVaishnavi Attending Unavailable Exira, Eduardo Primary Care Unavailable Jose EduardoVaishnavi Attending Unavailable Jose Eduardo, Vaishnavi Referring Unavailable Dr. Phillip Wren MD Emergency Provider Dr. Eva Williamson DO Admit Provider Unavail able Dr. Eva Williamson DO Attending Provider Unav ailable Allergies Allergy Classification Reported Allergen(s) Allergy Type Date of Onset Reaction(s) Facility Latex (4 sources) Latex Substance Allergy 5 Rash, Hives [facility] Opioid Agonists (8 sources) Codeine Drug Allergy 0 Hives, Itching [facility] Penicillins (antibiotic) (5 sources) Penicillin Drug Allergy 6 Itching, Rash, Hives [facility] (20 sources) codeine; Translations: [CODEINE] Propensity to adverse reactions to drug 1 Hives [facility] (20 sources) fentaNYL; Translations: [FENTANYL] Propensity to adverse reactions to drug 0 Itching [facility] (20 sources) Latex; Translations: [LATEX] Propensity to adverse reactions to drug 9 Rash, Hives [facility] (20 sources) penicillin; Translations: [PENICILLIN] Propensity to adverse reactions to drug 6 Itching, Rash [facility] (10 sources) Ct: Iodinated Contrast- Oral And Iv Dye; Translations: [CT: IODINATED CONTRAST- ORAL AND IV DYE] Propensity to adverse reactions to drug 2 Hives, Itching [facility] (20 sources) Penicillins; Translations: [PENICILLINS] Propensity to adverse reactions to drug 6 Hives, Itching, Rash [facility] (20 sources) Penicillin G; Translations: [PENICILLIN G POTASSIUM] Drug Allergy 6 [facility] Work Phone: (20 sources) Latex Propensity to adverse reactions to drug 5 Hives, Rash [facility] (5 sources) Ketorolac Drug Allergy 2 Hives, Pain [facility] (9 sources) Ketorolac; Translations: [KETOROLAC] Drug Allergy 3 Hives, Other (See Comments) [facility] (3 sources) Ketorolac trometamol Propensity to adverse reactions to drug 2 [facility] (1 source) Codeine Drug Allergy 5 [facility] (1 source) Latex Drug allergy (disorder) 5 [facility] Medications Current Medications Medication Drug Class(es) Dates Sig (Normalized) Sig (Original) acetaminophen 300 mg / codeine phosphate 30 mg oral tablet (20 sources) Opioid Agonist Start: 06-02-2007 TYLENOL/CODEINE #3 300-30 MG OR TABS 1 OR 2 TABLETS EVERY 4 TO 6 HOURS NEEDED FOR PAIN 28 0 06/02/2007 Active [id number] 200 actuat albuterol 0.09 mg/actuat metered dose inhaler (20 sources) beta2-Adrenergic Agonist Start: 11-05-2022 take 2 puff(s) by inhalation every six hours as needed for wheezing albuterol 90 mcg/actuation inhaler Inhale 2 (two) puffs every 6 (six) hours as needed for wheezing . 18 g 11/05/2022 Active Start: 11-28-2020 End: 12-01-2020 take 2.5 mg by inhalation every six hours as needed 2.5 mg, Nebulization, Every 6 hours PRN (RT), wheezing, shortness of breath, Starting 11/28/20 at 2028 Start: 11-01-2019 take 1 puff(s) by in halation every six hours as needed albuterol HFA (PROVENTIL HFA, VENTOLIN HFA) 90 mcg/actuation inhaler Inhale 1 Puff as instructed every 6 hours as needed. 11/01/2019 Active Start: 11-01-2019 albuterol (PRO VENTIL HFA) INHALATION HFA inhaler (VENTOLIN,PROAIR,PROVENTIL) 90mcg Inhale 2 Puffs by mouth. 11/01/2019 Active Start: 11-01-2019 take 2 puff(s) by in halation every six hours as needed for wheezing albuterol 90 mcg/actuation inhaler Inhale 2 (two) puffs every 6 (six) hours as needed for wheezing . 1 Inhaler 0 11/01/2019 Active albuterol 90 mcg/actuation inhaler (20 sources) [...] supply per fill: 30) . 60 tablet 06/08/2023 Active Start: 05-22-2023 End: 05-26-2023 take 1 mg by mouth twice daily as needed for anxiety 1 mg, Oral, 2 TIMES DAILY NEEDED, Starting on Thu05/22/23 at 2114, Until Thu05/26/23 at 1920, Anxiety Start: 01-06-2023 End: 07-10-2024 take 1 tablet by mouth once daily Alprazolam (Xanax) 1 mg tablet Discontinued 1 mg PO DAILY January 06, 2023 12:00am July 10, 2024 6:42pm Start: 01-28-2022 End: 01-31-2022 take 1 mg by mouth once daily 1 mg, Oral, DAILY, First dose on Thu01/28/22 at 1200, Until Discontinued Start: 11-29-2020 End: 12-01-2020 take 1 mg by mouth once daily 1 mg, Oral, Daily, First dose on Thu11/29/20 at 0900 Start: 11-28-2020 End: 12-01-2020 ALPRAZolam (XANAX) tablet 0. 5 mg Start: 07-08-2019 End: 07-08-2019 take 1 tablet by mouth every eight hours as needed 0.25 mg, Oral, Every 8 hours PRN, anxiety, Starting Thu07/08/19 at 1010 May repeat x1 in 30 minutes if still anxious. Start: 12-27-2009 alprazolam(NIKOLAS AX 0.5 MG TAB) Take one(1) tablet three(3) times daily prn 0 12/27/2009 Active XANAX OR Indicat ions: Dermatitis due to drugs and medicines taken internally(693.0) None Entered Active take 1 tablet by alvino th twice daily as needed ALPRAZolam 1 MG tablet Xanax 1 mg oral tablet take 1 tablet (1 mg) by oral route BID prn Suspended Active XANAX OR None En tered 0 Active XANAX OR Indicat ions: Dermatitis due to drugs and medicines taken internally(693.0) None Entered 0 Active aMILoride hydrochloride 5 mg / hydroCHLOROthiazide 50 mg oral tablet (20 sources) Potassium-sparing Diuretic, Thiazide Diuretic Start: 02-16-2007 take 1 tablet by mouth once daily AMILORIDE-HYDROCHLOROTHIAZIDE 5-50 MG OR TABS 1 TABLET DAILY 30 3 02/16/2007 Active atorvastatin 40 mg oral tablet (20 sources) HMG-CoA Reductase Inhibitor Start: 02-01-2025 take 1 tablet by mouth once daily atorvastatin (Lipitor) 40 mg tablet Indications: Mixed hyperlipidemia Take 1 tablet (40 mg) by mouth once daily. 100 tablet 1 02/01/2025 Active Start: 05-24-2023 End: 02-01-2025 take 1 tablet by mouth once daily Atorvastatin 40 mg tablet Active 40 mg PO DAILY July 10, 2024 12:00am cholesterol Start: 05-22-2023 End: 05-26-2023 take 20 mg [...] Active busPIRone hydrochloride 10 mg oral tablet (4 sources) Start: 07-28-2023 take 1 tablet by [...] 06/16/2024 Active carvedilol 12.5 mg oral tablet (7 sources) alpha-Adrenergic Hero, beta-Adrenergic Hero Start: 05-24-2023 [...] 10/22/21. 4 tablet 0 10/22/2021 10/26/2021 Active docusate sodium 50 mg / sennosides, group home 8.6 mg oral tablet (20 sources) Start: 12-08-2024 Sennosides-Doc usate Sodium (Senna Plus) 8.6-50 mg tablet Active 1 NMA PO TWICE A DAY as needed for constipation December 08, 2024 3:33pm Start: 10-18-2024 End: 12-08-2024 Sennosides-Docusate Sodium ( Senna Plus) 8.6-50 mg tablet Discontinued 1 NMA PO daily as needed October 18, 2024 1:00am December 08, 2024 3:35pm Start: 12-01-2020 End: 12-31-2020 take 1 tablet by mouth once daily senna-docusate (SENNA-S) 8.6-50 mg Take 1 (one) tablet by mouth daily . 30 tablet 0 12/01/2020 12/31/2020 Active doxepin hydrochloride 25 mg oral capsule (7 sources) Tricyclic Antidepressant Start: 06-30-2023 take 1 capsule by mouth once daily doxepin (SINEQUAN) 25 MG capsule take 1 capsule by mouth nightly 30 capsule 06/30/2023 Active Start: 06-17-2023 End: 07-17-2023 take [...] before breakfast esomeprazole (NEXIUM) 40 MG capsule take 1 capsule by mouth daily THIRTY MINUTES BEFORE BREAKFAST 30 Capsule 3 12/16/2022 Active gabapentin 300 mg oral capsule (10 sources) Anti-epileptic Agent Start: 10-18-2024 take 1 capsule by mouth every twelve hours Gabapentin 300 mg capsule Active 300 mg PO Q12H October 18, 2024 1:00am Start: 10-18-2024 End: 07-31-2025 take 1 capsule by mouth at bedtime Gabapentin 300 mg capsule Active 300 mg PO AT BEDTIME October 18, 2024 1:00am Garlic preparation (20 sources) Non-Standardized Food Allergenic Extract GARLIC ORAL Take by mouth. Active GARLIC ORAL Take by mouth. 0 Active hydrOXYzine hydrochloride 50 mg oral tablet (20 sources) Antihistamine Start: 08-03-2023 hydrOXYzine hc l 50 MG tablet Take 1 tablet by [...] mg by mouth daily . 0 Active losartan potassium 50 mg oral tablet (20 sources) Angiotensin 2 Receptor Hero Start: 05-22-2023 End: 06-23-2023 take 1 tablet by mouth every twelve hours Losartan 50 MG tablet Take 1 tablet by mouth every 12 hours. 60 tablet 05/24/2023 Active Start: 01-06-2023 End: 07-10-2024 take 1 tablet by mouth once daily Losartan 100 mg tablet Discontinued 100 mg PO DAILY 30 January 06, 2023 2:14pm July 10, 2024 6:42pm Start: 11-29-2020 End: 05-24-2023 take 1 tablet by mouth once daily Losartan 50 mg tablet Discontinued 50 mg PO DAILY January 06, 2023 12:00am January 06, 2023 2:12pm take 1 tablet by alvino th twice daily losartan (COZAAR) 50 MG tablet Take 1 (one) tablet (50 mg total) by mouth 2 (two) times a day . Active End: 05-24-2023 Losartan 50 MG tablet 2 tabl ets. 0 05/24/2023 Discontinued (Stop Taking at Discharge) Magnesium (1 source) Start: 03-22-2025 take 1 tablet by mouth once daily Magnesium 250 mg tablet Active 250 mg PO DAILY March 22, 2025 12:00am Mecobalamin (Vitamin B12) 1,000 mcg lozenge (1 source) Start: 03-22-2025 take 1000 ug by mouth once daily Mecobalamin (Vitamin B12) 1,000 mcg lozenge Active 1000 ug PO DAILY March 22, 2025 12:00am allow to dissolve in mouth OR may chew lightly before swallowing mirtazapine 15 mg oral tablet (9 sources) Start: 10-18-2024 End: 07-31-2025 take 1 tablet by mouth at bedtime Mirtazapine 15 mg tablet Active 15 mg PO AT BEDTIME October 18, 2024 1:00am Multiple Vitamin (MULTI-VITAMIN ORAL) (20 sources) Multiple Vitamin (MULTI-VITAMIN ORAL) Take by mouth daily. Active Multiple Vitamin (MULTI-VITAMIN ORAL) Take by mouth daily. 0 Active multivitamins(DAILY VITAMIN TAB) (1 source) Start: 10-30-2008 multivitamins(DAILY VITAMIN TAB) Take one(1) tablet daily. 0 10/30/2008 Active nabumetone 750 mg oral tablet (1 source) Nonsteroidal Anti-inflammator y Drug Start: 12-27-2024 End: 12-27-2025 take 1 tablet by mouth twice daily nabumetone (RELAFEN) 750 MG tablet Take 1 (one) tablet (750 mg total) by mouth 2 (two) times a day . 60 tablet 11 12/27/2024 12/27/2025 Active 1 ml naloxone hydrochloride 0.4 mg/ml injection (3 sources) Opioid Antagonist Start: 08-11-2022 naloxone (NARCAN) 0.4 MG/ML injection Start: 01-28-2022 End: 01-31-2022 [...] Start: 11-29-2020 End: 12-01-2020 nystatin (MYCOSTATIN) powder OLANZapine 10 mg oral tablet (2 sources) Atypical Antipsychotic Start: 01-12-2024 take 1 tablet by mouth once daily OLANZapine (ZYPREXA) 10 MG tablet Take 1 (one) tablet (10 mg total) by mouth nightly for 3 days . 3 tablet 01/12/2024 Active phenylephrine hydrochloride 25 mg/ml ophthalmic solution (2 sources) alpha-1 Adrenergic Agonist Start: 12-13-2024 End: 12-14-2024 PHENYLephrine 2.5 % 1 Drop (AK-DILATE, ARYAN-SYNEPHRINE) Start: 12-13-2024 End: 12-14-2024 1 Drop, BOTH EYES, DIRECT ED, Starting on Thu12/13/24 at 1600, Until Thu12/14/24 at 0359, Administer for dilation PROTECT FROM LIGHT predniSONE 20 mg oral tablet (3 sources) [...] 11-01-2019 predniSONE (DELTASONE) table t 60 mg proparacaine hydrochloride 5 mg/ml ophthalmic solution (2 sources) Local Anesthetic Start: 12-13-2024 End: 12-14-2024 proparacaine 0.5 % 1 Drop (ALCAINE) Start: 12-13-2024 End: 12-14-2024 1 Drop, BOTH EYES, DIRECT ED, Starting on Thu12/13/24 at 1600, Until Thu12/14/24 at 0359, Administer for pneumo tonometry, tonopen tonometry, or pachymetry. In the event of a proparacaine shortage, administer tetracaine 0.5% ophthalmic drops 1 drop in the left eye as directed for pneumo tonometry, tonopen tonometry, or pachymetry propranolol hydrochloride 40 mg oral tablet (19 sources) beta-Adrenergic Hero Start: 12-08-2024 Propra nolol 40 mg tablet Active 60 mg PO TWICE A DAY December 08, 2024 3:32pm blood pressure Start: 11-08-2024 End: 02-01-2026 take 1 tablet by mouth twice daily propranolol (Inderal) 60 mg tablet Indications: ASHD (arteriosclerotic heart disease) Take 1 tablet (60 mg) by mouth 2 times a day. 200 tablet 1 02/01/2025 02/01/2026 Active Start: 07-10-2024 End: 12-08-2024 Propranolol 40 mg tablet Dis continued 60 mg PO THREE TIMES A DAY July 10, 2024 12:00am December 08, 2024 3:35pm blood pressure Start: 02-01-2024 take 1.5 tablets by mouth three times daily propranolol (Inderal) 40 mg tablet Take 1.5 tablets (60 mg) by mouth 3 times a day. 02/01/2024 Active 24 hr QUEtiapine 150 mg extended release oral tablet (1 source) Atypical Antipsychotic QUEtiapin e XR (SEROQUEL XR) 150 mg Tb24 Take by mouth daily at bedtime. Active ribavirin 200 mg oral capsule (20 sources) Nucleoside Analog Antiviral Start: 5 take 2 capsules by mouth twice daily ribavirin (REBETOL) 200 MG capsule Take 2 Capsules by mouth 2 times daily. 150 Capsule 5 07/25/2015 Active sertraline 100 mg oral tablet (20 sources) Serotonin Reuptake Inhibitor End: 3 take 1 tablet by mouth once daily [...] upper abdominal pain. 120 Tablet 04/23/2022 Active thiamine 100 mg oral tablet (7 sources) Start: 07-13-2024 take 1 tablet by mouth once daily Thiamine Hcl (Vitamin B1) 100 mg tablet Active 100 mg PO DAILY 30 July 13, 2024 12:00am Tirzepatide (Weight Loss) (3 sources) Start: 02-21-2025 Tirzepatide (Weight Loss) (Zepbound) 2.5 mg/0.5 mL solution Active 2.5 mg SC EVERY WEEK February 21, 2025 12:00am traMADol hydrochloride 50 mg oral tablet (2 sources) Opioid Agonist Start: 10-21-2021 End: 10-24-2021 take 1 tablet by mouth every four hours as needed for pain traMADoL (ULTRAM) 50 mg tablet Indications: Acute intractable headache, unspecified headache type Take 1 (one) tablet (50 mg total) by mouth every 4 (four) hours as needed for pain . 12 tablet 0 10/21/2021 10/24/2021 Active Start: 02-03-2014 take 1 tablet by alvino th every six hours as needed traMADol 50 mg tablet Take 1 tablet by mouth every 6 hours as needed for Pain. 50 tablet 0 02/03/2014 Active traZODone hydrochloride 100 mg oral tablet (20 sources) Serotonin Reuptake Inhibitor Start: 02-01-2025 take 2 tablets by mouth once daily at bedtime traZODone (Desyrel) 100 mg tablet Indications: Primary insomnia Take 2 tablets (200 mg) by mouth once daily at bedtime. 100 tablet 1 02/01/2025 Active Start: 06-22-2024 take 1 tablet by alvino th once daily Trazodone 100 mg tablet Active 100 mg PO DAILY July 10, 2024 12:00am mental health Start: 06-17-2023 End: 07-17-2023 take 1 tablet [...] Nightly, First dose on Thu11/28/20 at 2130 Start: 03-30-2016 End: 02-01-2025 take 2 tablets by mouth at bedtime Trazodone 100 MG tablet Discontinued 200 mg PO AT BEDTIME March 30, 2016 12:00am January 06, 2023 1:39pm take 1 tablet by alvino th at bedtime trazodone 300 MG tablet Take 1 tablet [...] daily. 30 tablet 5 10/15/2022 04/13/2023 Active tropicamide 10 mg/ml ophthalmic solution (2 sources) Anticholinergic Start: 12-13-2024 End: 12-14-2024 tropicamide 1 % 1 Drop (MYDRIACYL) Start: 12-13-2024 End: 12-14-2024 1 Drop, BOTH EYES, DIRECT ED, Starting on Thu12/13/24 at 1600, Until Thu12/14/24 at 0359, Administer for dilation venlafaxine 75 mg oral tablet (20 sources) Serotonin and Norepinephrine Reuptake Inhibitor Start: 02-01-2025 take 1 tablet by mouth twice daily venlafaxine (Effexor) 75 mg tablet Indications: Moderate episode of recurrent major depressive disorder Take 1 tablet (75 mg) by mouth 2 times a day. 100 tablet 1 02/01/2025 Active Start: 10-18-2024 End: 12-08-2024 take 1 tablet by mouth once daily Venlafaxine 150 mg tablet extended release 24hr Active 150 mg PO daily December 08, 2024 3:32pm Start: 05-24-2024 End: 10-18-2024 take 1 capsule by mouth once daily Venlafaxine 75 mg capsule,extended release 24hr Discontinued 75 mg PO DAILY July 10, 2024 12:00am October 18, 2024 2:41pm mental health Start: 04-18-2024 End: 04-18-2025 take 1 capsule by mouth once daily venlafaxine (Effexor XR) 37.5 MG 24 hr capsule Take 1 (one) capsule (37.5 mg total) by mouth daily . 30 capsule 1 04/18/2024 04/18/2025 Active Start: 02-22-2024 End: 02-01-2025 take 1 tablet by mouth twice daily venlafaxine (Effexor) 75 mg tablet Indications: Moderate episode of recurrent major depressive disorder Take 1 tablet (75 mg) by mouth 2 times a day. 100 tablet 1 11/04/2024 02/01/2025 Discontinued (Reorder) zinc sulfate 220 mg oral capsule (1 [...] Sig (Original) acetaminophen 325 mg oral tablet (19 sources) Start: 07-13-2024 End: 12-08-2024 take 1-10 tablets by mouth every six hours as needed for pain Acetaminophen 325 mg tablet Discontinued 650 mg PO EVERY 6 HOURS as needed for Pain 1-10 Or Fever>100.7 October 18, 2024 2:33pm December 08, 2024 3:35pm Start: 05-22-2023 End: 05-22-2023 acetaminophen (OFIRMEV) IVPB [...] / HYDROcodone bitartrate 5 mg oral tablet (9 sources) Opioid Agonist Start: 05-22-2023 End: 05-24-2023 take 1 tablet by mouth every four hours as needed hydroCODone-acetaminophen (NORCO) 5-325 MG per tablet 1 tablet Start: 01-28-2022 End: 01-31-2022 take 1 tablet by mouth every six hours as needed hydroCODone-acetaminophen (NORCO) 5-325 MG per tablet 1 tablet Start: 03-30-2016 End: 01-06-2023 Hydrocodone-Acetaminophen 1 TABLET tablet Discontinued 1 - 2 {tbl} PO EVERY 4 HOURS NEEDED as needed for Pain 12 0 March 30, 2016 12:00am January 06, 2023 1:38pm acetaminophen 325 mg / oxyCODONE hydrochloride 5 [...] / ipratropium bromide 0.167 mg/ml inhalation solution (17 sources) Anticholinergic, beta2-Adrenergic Agonist Start: 05-22-2023 End: [...] inhalat ion every six hours as needed ipratropium-albuteroL (DUO-NEB) 0.5-2.5 mg/3 ml nebulizer Take 3 mL by nebulization every 6 (six) hours as needed . Active aluminum hydroxide 40 mg/ml / magnesium [...] hours PRN, indigestion, Starting 07/08/19 at 1010 amLODIPine 2.5 mg oral tablet (20 sources) Dihydropyridine Calcium Channel Hero Start: 03-30-2016 End: 05-24-2023 take 1 tablet by mouth once daily Amlodipine 2.5 MG tablet Discontinued 2.5 mg PO DAILY March 30, 2016 12:00am January 06, 2023 1:37pm aspirin 81 mg delayed release oral tablet (20 sources) Nonsteroidal Anti-inflammatory Drug Start: 01-06-2023 End: 07-10-2024 Aspirin (Adult Low Dose Aspirin) 81 mg tablet,delayed release (DR/EC) Discontinued 81 mg PO DAILY January 06, 2023 12:00am July 10, 2024 6:42pm Start: 11-28-2020 End: 12-01-2020 take 325 mg by mouth twice daily 325 mg, Oral, 2 times daily, First dose on Thu11/28/20 at 2130 Start: 03-30-2016 End: 01-06-2023 take 1 tablet by mouth once daily Aspirin 81 MG tablet,chewable Discontinued 81 mg PO DAILY@0800 March 30, 2016 12:00am January 06, 2023 1:37pm take 1 tablet by alvino once daily aspirin 81 MG tablet Take 81 mg by mouth daily. Active 1 ml atropine sulfate 1 mg/ml injection [...] oral tablet (20 sources) Loop Diuretic Start: 01-06-2023 End: 07-10-2024 take 1 tablet by mouth twice daily Bumetanide 1 mg tablet Discontinued 1 mg PO TWICE A DAY January 06, 2023 12:00am July 10, 2024 6:42pm Start: 11-29-2020 End: 05-24-2023 take 1 mg by mouth once daily 1 mg, Oral, Daily, First dose on Thu11/29/20 at 0900 24 hr buPROPion hydrochloride 150 mg extended release oral tablet (20 sources) Aminoketone Start: 05-24-2016 End: 06-23-2019 buPROPion (WELLBUTRIN XL) 150 MG 24 hr tablet Start: 05-23-2016 End: 06-23-2019 buPROPion (WELLBUTRIN XL) 30 0 MG 24 hr tablet Start: 03-30-2016 End: 01-06-2023 take 3 tablets by mouth once daily Bupropion Hcl 100 MG tablet Discontinued 300 mg PO DAILY March 30, 2016 12:00am January 06, 2023 1:37pm Start: 03-30-2016 End: 01-06-2023 Bupropion Hcl 100 MG tablet Discontinued 150 mg PO DAILY March 30, 2016 12:00am January 06, 2023 1:37pm take 1 tablet by alvino th once [...] PLUS) 50 mL (total volume) IVPB cholecalciferol 0.05 mg oral capsule (16 sources) Vitamin D Start: 10-18-2024 End: 12-08-2024 take 1 capsule by mouth once daily Cholecalciferol (Vitamin D3) 50 mcg (2,000 unit) capsule Discontinued 50 ug PO daily October 18, 2024 1:00am December 08, 2024 3:34pm Start: 01-28-2022 End: 01-31-2022 cholecalciferol (VITAMIN D3) [...] Succinate 100 MG Tab SR 24 HR take 100 mg by mouth once daily desvenlafaxine 100 mg Tb24 Take 100 mg by mouth once daily. Active End: 04-17-2023 take 1 tablet [...] by mouth every morning . 0 Active diazePAM 5 mg oral tablet (18 sources) Benzodiazepine Start: 07-13-2024 End: 10-18-2024 Diazepam 5 mg Tablet Discontinued 5 mg PO AT BEDTIME 3 3 0 July 13, 2024 12:00am October 18, 2024 2:43pm 1 tablet daily for 5 days, then 1 tablet every other day for 3 doses, then 1 tablet every third day for 3 doses, then stop. Start: 02-18-2024 End: 11-04-2024 take 1 tablet by mouth at bedtime as needed for anxiety Diazepam 10 mg tablet Discontinued 10 mg PO AT BEDTIME NEEDED as needed for anxiety July 10, 2024 12:00am July 13, 2024 2:50pm dicyclomine hydrochloride 20 mg oral tablet (9 sources) Anticholinergic Start: 05-20-2021 End: 04-17-2023 take 1 tablet by mouth three times daily as needed dicyclomine (BENTYL) 20 mg tablet Take 1 (one) tablet (20 mg total) by mouth 3 (three) times a day as needed (abdominal cramping) . 30 tablet 0 05/20/2021 04/17/2023 Discontinued (Patient's Request) Start: 03-30-2016 End: 01-06-2023 take 1 capsule by mouth every six hours as needed Dicyclomine 10 MG capsule Discontinued 10 mg PO EVERY 6 HOURS as needed for cramp 20 0 March 30, 2016 7:10pm January 06, 2023 1:37pm 1 ml diphenhydrAMINE hydrochloride 50 mg/ml cartridge [...] 0 Active doxycycline hyclate 100 mg oral tablet (8 sources) Tetracycline-class Drug Start: 10-18-2024 End: 12-08-2024 take 1 tablet by mouth twice daily Doxycycline Hyclate 100 mg tablet Discontinued 100 mg PO TWICE A DAY October 18, 2024 1:00am December 08, 2024 3:34pm Start: 11-27-2020 End: 12-01-2020 take 1 capsule [...] First dose on Shy 11/29/20 at 0900 DO NOT CRUSH OR CHEW. 0.4 ml enoxaparin sodium 100 mg/ml prefilled syringe (3 sources) Low Molecular Weight Heparin Start: 05-23-2023 End: 05-26-2023 Enoxaparin Sodium (LOVENOX) injection 40 mg Start: 01-28-2022 End: 01-31-2022 Enoxaparin Sodium (LOVENOX) injection 40 mg Start: 11-28-2020 End: 12-01-2020 enoxaparin (LOVENOX) syringe 40 mg estrogens, conjugated (group home) 0.625 mg/ml vaginal cream (20 sources) Estrogen Start: 11-27-2020 End: 11-28-2020 Premarin vaginal cream apply topically two times a week 0 11/27/2020 11/28/2020 Discontinued (Error) End: 04-17-2023 conjugated estrogens (PREMAR IN) vaginal cream Insert into the vagina twice weekly . 0 04/17/2023 Discontinued (Patient's Request) eszopiclone 2 mg oral tablet (20 sources) Start: 07-10-2024 End: 07-13-2024 take 1 tablet by mouth at bedtime as needed for sleep Eszopiclone 2 mg tablet Discontinued 2 mg PO AT BEDTIME NEEDED as needed for sleep July 10, 2024 12:00am July 13, 2024 2:52pm End: 05-24-2023 take 1 tablet by mouth at bedtime eszopiclone 2 MG tablet Take by mouth at bedtime. 0 05/24/2023 Discontinued (Stop Taking at Discharge) famotidine 20 mg oral tablet (1 source) Histamine-2 Receptor Antagonist Start: 09-01-2022 End: 09-01-2022 faMOTIdine (PEPCID) tablet 20 mg FLUoxetine 20 mg oral capsule (20 sources) Serotonin Reuptake Inhibitor Start: 03-30-2016 End: 01-06-2023 Fluoxetine 20 MG capsule Discontinued 120 mg PO DAILY March 30, 2016 12:00am January 06, 2023 1:37pm take 60 mg by mouth once daily F LUoxetine HCl (PROZAC ORAL) Take 60 mg by mouth daily. Active End: 06-23-2019 FLUoxetine (PROzac) 40 MG ca psule Take 60 mg by mouth. 0 06/23/2019 Discontinued (Therapy completed) fluticasone furoate 0.0275 mg/actuat metered dose nasal spray (7 sources) Corticosteroid Start: 10-18-2024 End: 12-08-2024 take 27.5 ug nasal route twice daily Fluticasone Furoate (Flonase Sensimist) 27.5 mcg/actuation spray,suspension Discontinued 1 NMA INTRANASAL TWICE A DAY October 18, 2024 1:00am December 08, 2024 3:34pm into each nostril folic acid 1 mg oral tablet (7 sources) Start: 07-13-2024 End: 12-08-2024 take 1 tablet by mouth once daily Folic Acid 1 mg tablet Discontinued 1 mg PO DAILY 30 0 July 13, 2024 12:00am December 08, 2024 3:34pm Food Supplemt, Lactose-Reduced (Ensure Plus High Protein) 0.08 gram-1.5 kcal/mL Liquid (7 sources) Start: 07-13-2024 End: 10-18-2024 Food Supplemt, Lactose-Reduced (Ensure Plus High Protein) 0.08 gram-1.5 kcal/mL Liquid Discontinued 120 mL PO 3 TIMES DAILY WITH MEALS 0 July 13, 2024 12:00am October 18, 2024 2:43pm Start: 07-13-2024 End: 10-18-2024 Food Supplemt, Lactose-Reduc ed (Ensure Plus High Protein) 0.08 gram-1.5 kcal/mL Liquid Discontinued 120 mL PO 3 TIMES DAILY WITH MEALS 0 July 13, 2024 12:00am October 18, 2024 2:43pm furosemide 20 mg oral tablet (20 sources) Loop Diuretic Start: 10-30-2008 End: 01-06-2023 take 2 tablets by mouth once daily Furosemide 20 MG tablet Discontinued 40 mg PO DAILY March 30, 2016 12:00am January 06, 2023 1:38pm Start: 10-30-2008 End: 05-24-2023 furosemide(LASIX 20 MG TAB) Take one(1) tablet twice daily. 0 10/30/2008 Active Start: 10-30-2008 furosemide (LA SIX) 20 MG tablet Take by mouth. 0 10/30/2008 Active 1 ml hydrALAZINE hydrochloride 20 mg/ml injection [...] ineffective at maximum dose or not ordered. hydroCHLOROthiazide 25 mg oral tablet (20 sources) Thiazide Diuretic Start: 05-23-2023 End: 11-04-2024 take 1 tablet by mouth once daily Hydrochlorothiazide 25 mg tablet Discontinued 25 mg PO DAILY July 10, 2024 12:00am July 13, 2024 2:52pm diuretic Hydrocortisone Acetate (Anusol-Hc) 25 mg suppository (7 sources) Start: 12-08-2024 End: 03-22-2025 Hydrocortisone Acetate (Anusol-Hc) 25 mg suppository Discontinued 25 mg RC AT BEDTIME December 08, 2024 12:00am March 22, 2025 2:49pm hemorrhoids Start: 12-08-2024 Hydrocortisone Acetate (Anusol-Hc) 25 mg suppository Active 25 mg RC AT BEDTIME December 08, 2024 12:00am 1 ml HYDROmorphone hydrochloride 1 mg/ml injection [...] 180 or DBP greater than 120, Starting Thu11/14/20 at 1136, For 4 doses, PACU (only) [...] needed lactulose (CHRONULAC) oral solution 20 g lisinopril 10 mg oral tablet (20 sources) Angiotensin Converting Enzyme Inhibitor Start: 10-30-2008 End: 05-24-2023 take 1 tablet by mouth once daily Lisinopril 10 MG tablet Discontinued 10 mg PO DAILY March 30, 2016 12:00am January 06, 2023 1:38pm take 1 tablet by mouth once dagmar y lisinopril (ZESTRIL) 20 MG tablet Take 20 mg by mouth daily. Active 1 ml LORazepam 2 mg/ml injection (3 sources) Benzodiazepine Start: 05-22-2023 End: 05-22-2023 LORazepam (ATIVAN) injection 0.5 mg Start: 05-22-2023 End: 05-23-2023 LORazepam (ATIVAN) injection 1 mg magnesium gluconate 500 mg oral tablet (7 sources) Start: 10-18-2024 End: 12-08-2024 take 1 tablet by mouth at bedtime Magnesium Gluconate 500 mg tablet Discontinued 500 mg PO AT BEDTIME October 18, 2024 1:00am December 08, 2024 3:34pm magnesium oxide 400 mg oral tablet (1 source) Start: 05-25-2023 End: 05-25-2023 magnesium oxide (MAG-OX) tablet 400 mg 50 ml magnesium sulfate 40 mg/ml injection (2 sources) Start: 05-23-2023 End: 05-26-2023 [...] (20 sources) beta-Adrenergic Hero Start: 01-28-2022 End: 07-10-2024 take 1 tablet by mouth twice daily Metoprolol Tartrate 25 mg tablet Discontinued 25 mg PO TWICE A DAY 60 January 06, 2023 2:14pm July 10, 2024 6:42pm Start: 02-22-2020 End: 02-15-2021 metoprolol (TOPROL-XL) 25 [...] at Discharge) take 1 tablet by alvino twice daily metoprolol succinate (TOPROL-XL) 25 MG [...] End: 01-27-2022 morphine (PF) injection 2 mg Multivitamin With Folic Acid (Multivitamin) 1 TABLET tablet (7 sources) Start: 03-30-2016 End: 01-06-2023 take 1 tablet by mouth once daily Multivitamin With Folic Acid (Multivitamin) 1 TABLET tablet Discontinued 1 {tbl} PO DAILY March 30, 2016 12:00am January 06, 2023 1:38pm naloxone (NARCAN) injection 0.1 mg (4 sources) [...] (CARDENE) 20 mg/200 mL premix IV infusion 24 hr NIFEdipine 60 mg extended release oral tablet (16 sources) Dihydropyridine Calcium Channel Hero Start: 01-06-2023 End: 05-24-2023 NIFEdipine 60 MG (OSM) tablet XL Start: 01-06-2023 End: 07-10-2024 take 1 tablet by mouth once daily Nifedipine 60 mg tablet extended release Discontinued 60 mg PO DAILY 30 January 06, 2023 2:14pm July 10, 2024 6:42pm nitroglycerin 0.02 mg/mg topical ointment (1 source) Nitrate Vasodilator Start: 01-29-2022 End: 01-31-2022 nitroGLYCERIN (NITRO-BID) 2 % ointment 0.5 inch omeprazole 20 mg delayed release oral capsule (7 sources) Proton Pump Inhibitor Start: 03-30-2016 End: 01-06-2023 take 1 capsule by mouth once daily Omeprazole 20 MG capsule Discontinued 20 mg PO DAILY 14 0 March 30, 2016 12:00am January 06, 2023 1:38pm ondansetron 4 mg oral tablet (20 sources) Serotonin-3 Receptor Antagonist Start: 12-08-2024 End: 02-21-2025 take 2 tablets by mouth every two hours as needed, then take 1 tablet by mouth every four hours as needed Ondansetron Hcl 4 mg tablet Discontinued 4 mg PO .COMPLEX 8 0 December 08, 2024 12:00am February 21, 2025 10:24am 4 mg orally; take two tablets PO two hours prior to start of bowel prep and one every 4 hours as needed for N/V Start: 10-18-2024 End: 12-08-2024 take 1 tablet by mouth every eight hours as needed Ondansetron 4 mg tablet,disintegrating Discontinued 4 mg PO Q8H as needed October 18, 2024 1:00am December 08, 2024 3:34pm Start: 05-22-2023 End: 05-26-2023 take 4 mg intravenously every four hours as needed Ondansetron 4mg/2ml (ZOFRAN) injection 4 mg Start: 05-01-2023 take 4 mg by mouth e very eight hours as needed ondansetron (ZOFRAN) 8 MG tablet Take 0.5 (one-half) tablet (4 mg total) by mouth every 8 (eight) hours as needed . 11 tablet 05/01/2023 Active Start: 02-16-2023 End: 02-16-2023 Ondansetron [...] Every 15 min PRN, nausea, vomiting, Starting 07/29/19 at 1011, For 2 doses, PACU (only) Do not give more than 2 doses. Administer first as needed for nausea/vomiting, or as directed by anesthesia Start: 03-30-2016 End: 01-06-2023 take 1 tablet by mouth every eight hours as needed for nausea Ondansetron Hcl 8 MG tablet Discontinued 8 mg PO EVERY 8 HOURS NEEDED as needed for Nausea 15 0 March 30, 2016 12:00am January 06, 2023 1:39pm ondansetron (ZOFRAN-ODT) disintegrating tablet 4 mg (1 [...] pantoprazole 40 mg delayed release oral tablet (20 sources) Proton Pump Inhibitor Start: 12-08-2024 End: 02-21-2025 take 1 tablet by mouth once daily before breakfast Pantoprazole 40 mg tablet,delayed release (DR/EC) Discontinued 40 mg PO daily 90 0 December 08, 2024 12:00am February 21, 2025 10:25am take one tablet every morning 30 minutes before breakfast Start: 01-28-2022 End: 05-26-2023 Pantoprazole (PROTONIX) tabl et DR 40 mg PERFLUTREN LIPID MICROSPHERE 1.3 ML/8.7ML (1 source) Start: 01-28-2022 End: 01-28-2022 PERFLUTREN LIPID MICROSPHERE 1.3 ML/8.7ML Phenyleph-Shark Wbq-Wrnt-Dgi cream (7 sources) Start: 10-18-2024 End: 12-08-2024 Phenyleph-Shark Jbl-Wszb-Sfk cream Discontinued NMA RC EVERY 8 HOURS NEEDED October 18, 2024 1:00am December 08, 2024 3:34pm polyethylene glycol 3350 26186 mg powder for oral solution (8 sources) Osmotic Laxative Start: 10-18-2024 End: 12-08-2024 Polyethylene Glycol 3350 (Miralax) 17 gram/dose powder Discontinued 4 g PO daily October 18, 2024 1:00am December 08, 2024 3:33pm Start: 05-23-2023 End: 05-26-2023 Polyethylene glycol (MIRALAX ) packet 17 g polyethylene glycol 3350 090398 mg / potassium chloride 2970 mg / sodium bicarbonate 6740 mg / sodium chloride 5860 mg / sodium sulfate 24897 mg powder for oral solution (11 sources) Osmotic Laxative Start: 12-08-2024 End: 03-22-2025 Peg 3350-Electrolytes (Golytely) 236-22.74-6.74 -5.86 gram recon soln Discontinued 240 mL PO Q10M 4000 0 February 15, 2025 9:35am March 22, 2025 2:27pm take as directed for split dose bowel prep Start: 04-23-2022 End: 04-23-2022 take 4000 mL by mouth once polyethylene glycol (GOLYTE LY) oral solution Take 4,000 mL by mouth once for 1 dose. Use as directed prior to colonoscopy 4000 mL 0 04/23/2022 04/23/2022 Active potassium bicarbonate 25 meq effervescent oral tablet (2 sources) Start: 01-28-2022 End: 01-28-2022 potassium bicarbonate (EFFER -K) effervescent tablet 25 mEq Start: 11-01-2019 End: [...] . 0 10/10/2020 04/17/2023 Discontinued (Patient's Request) Start: 10-30-2008 potassium chlo ride(K-DUR 10 MEQ TAB) Take one(1) tablet daily. 0 10/30/2008 Active End: 05-24-2023 potassium chloride 10 MEQ Ta [...] . 10 tablet 0 06/23/2019 07/28/2019 Discontinued sulfamethoxazole 800 mg / trimethoprim 160 mg oral tablet (7 sources) Dihydrofolate Reductase Inhibitor Antibacterial, Sulfonamide Antimicrobial Start: 07-10-2024 End: 07-13-2024 Sulfamethoxazole-Tr imethoprim 800-160 mg tablet Discontinued 1 {tbl} PO TWICE A DAY July 10, 2024 12:00am July 13, 2024 2:52pm infection SUMAtriptan 50 mg oral tablet (1 source) [...] 01-30-2022 TC-99M Cardiolite (Sestamibi) IVPB 5-30 millicurie Tenapanor (Ibsrela) 50 mg tablet (7 sources) Start: 12-08-2024 End: 03-22-2025 take 1 tablet by mouth once daily at dinner Tenapanor (Ibsrela) 50 mg tablet Discontinued 50 mg PO TWICE A DAY 60 3 December 08, 2024 12:00am March 22, 2025 2:49pm must administer immediately before first meal of day/breakfast and dinner Start: 12-08-2024 take 1 tablet by alvino th once daily at dinner Tenapanor (Ibsrela) 50 mg tablet Active 50 mg PO TWICE A DAY December 08, 2024 12:00am must administer immediately before first meal of day/breakfast and dinner tiZANidine 2 mg oral tablet (17 sources) Central alpha-2 Adrenergic Agonist Start: 05-22-2023 End: 05-26-2023 take 1 tablet by mouth every eight hours as needed 4 mg, Oral, EVERY 8 HOURS NEEDED, Starting on Thu05/22/23 at 2114, Until Thu05/26/23 at 1920, Muscle spasms Max: 36 mg/day Start: 01-28-2022 End: 01-31-2022 take 1 tablet by mouth every eight hours as needed 2 mg, Oral, EVERY 8 HOURS NEEDED, Starting on Thu01/28/22 at 1121, Until Thu01/31/22 at 1258, Muscle spasms Max: 36 mg/day Start: 07-23-2021 take 1 tablet by alvino th three times daily as needed tiZANidine (ZANAFLEX) 4 MG tablet Take 1 (one) tablet (4 mg total) by mouth 3 (three) times a day as needed . 07/23/2021 Active topiramate 25 mg oral tablet (20 sources) Start: 01-27-2022 End: 01-31-2022 topiramate (TOPAMAX) tablet 50 mg Start: 08-29-2021 End: 05-24-2023 topiramate 25 MG tablet Take 2 tablets by mouth. 08/29/2021 Active Start: 03-30-2016 End: 05-24-2023 take 1 tablet by mouth once daily Topiramate (Topamax) 25 MG tablet Discontinued 25 mg PO DAILY March 30, 2016 12:00am January 06, 2023 1:39pm take 1 tablet by alvino th twice daily topiramate (TOPAMAX) 25 MG tablet Take 25 mg by mouth 2 times daily. Active Witch Maggie Cerrillos [place]os (Hamamelis) pad (7 sources) Start: 10-18-2024 End: 12-08-2024 Witch Maggie C[place]os (Hamamelis) pad Discontinued 1 NMA TOPICAL 1 to 2 times per day as needed October 18, 2024 1:00am December 08, 2024 3:34pm zolpidem tartrate 10 mg oral tablet (12 sources) gamma-Aminobuty gal Acid-ergic Agonist Start: 07-10-2024 End: 07-13-2024 take 1 tablet by mouth at bedtime as needed for sleep Zolpidem 10 mg tablet Discontinued 10 mg PO AT BEDTIME NEEDED as needed for sleep July 10, 2024 12:00am July 13, 2024 2:53pm Start: 05-22-2023 End: 05-22-2023 Zolpidem (AMBIEN) tablet Start: 05-22-2023 End: 05-26-2023 Zolpidem (AMBIEN) tablet 10 mg Start: 04-27-2013 End: 01-31-2022 take 5 mg by mouth once daily at bedtime as needed for sleep 5 mg, Oral, DAILY AT BEDTIME NEEDED, Starting on Thu01/28/22 at 1120, Until Thu01/31/22 at 1258, Sleep Problems Active Problems Problem Classification Problem Date Documented Da te Episodic/Chronic Abdominal pain (20 sources) Epigastric pain; Translations: [Stomach ache] Onset: 1 10-24-2020 Episodic Acute and unspecified renal failure (7 sources) Acute renal failure syndrome; Translations: [Acute kidney failure, unspecified] 07-21-2024 Episodic Allergic reactions (1 source) Allergy to [...] unspecified type] Onset: 3 Chronic Cancer of bone and connective tissue (1 source) 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 Onset: 0 06-12-2010 Chronic Cataract (2 sources) Bilateral senile combined form cataracts of eyes; Translations: [Combined forms of age-related cataract, bilateral] Onset: 5 12-13-2024 Chronic Coagulation and hemorrhagic disorders (20 sources) Platelet count below reference range; Translations: [Thrombocytopenia, unspecified] Onset: 7 Chronic Coronary atherosclerosis and other heart disease (20 sources) Coronary arteriosclerosis in [place] artery; Translations: [Coronary arteriosclerosis] Onset: 9 06-23-2019 Chronic Comment on above: Non Obstructive per cardiac cath 07/08/19 @ [facility] Deficiency and other anemia (20 sources) Aplastic anemia; Translations: [Other specified aplastic anemias] Onset: 7 02-18-2007 Chronic Deficiency and other anemia (1 source) Other specified aplastic anemias Onset: 7 07-01-2023 Chronic Delirium, dementia, and amnestic and other cognitive disorders (18 sources) Presenile dementia; 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 This may have to do with her coming off of Xanax and alcohol.Patient did not have evidence of Warnicke's encephalopathy or Korsakoff's pure amnestic syndrome. She did receive appropriate vitamin supplementation as needed. Serum B12 level was adequate and she is currently on replacement.There is concern about family history of Alzheimer's disease and potential effects in her case. 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 Is interesting to note that the brainstem and cerebellum did not appear to have typical alcoholic change of vermian atrophy.Patient may have a significant psychiatric component to her issues but at this point she seemed to be stable in terms of behavioral changes. Diseases of white blood cells (10 sources) Leukopenia; Translations: [Decreased white blood cell count, unspecified] Onset: 2 Chronic Disorders of lipid metabolism (14 sources) Hyperlipidemia; Translations: [Mixed hyperlipidemia] Onset: 3 05-23-2023 Chronic E Codes: Adverse effects of medical drugs (1 source) Antiviral drugs causing adverse effects in therapeutic use Onset: 7 07-01-2023 E Codes: Fall (2 sources) Unspecified fall, [...] Translations: [Hypertensive disorder] Onset: 6 11-03-2020 Chronic Fluid and electrolyte disorders (20 sources) Hypokalemia; Translations: [Hypokalemia] Onset: 2 10-19-2021 Episodic Gastrointestinal hemorrhage (20 sources) Rectal hemorrhage; Translations: [Hemorrhage of anus and rectum] Onset: 2 Episodic Gastrointestinal hemorrhage (1 source) Blood-tinged feces; Translations: [Hematochezia] Genitourinary symptoms and ill-defined conditions (6 sources) Microscopic hematuria; Translations: [Other microscopic hematuria] Episodic Headache; including migraine (6 sources) Headache; including migraine; Translations: [Headache, unspecified] Onset: 2 Hemorrhoids (10 sources) Internal hemorrhoids grade I; Translations: [First degree hemorrhoids] Onset: 5 Episodic Hepatitis (10 sources) Chronic hepatitis C; Translations: [Chronic viral hepatitis C] Onset: 2 01-28-2022 Chronic Immunizations and screening for infectious disease (6 sources) Contact with and (suspected) exposure to other viral communicable diseases; Translations: [Patient encounter status] Episodic Malaise and fatigue (20 sources) Malaise and fatigue; Translations: [Other malaise] Onset: 7 10-06-2006 Episodic Miscellaneous mental health disorders (15 sources) Primary insomnia; Translations: [Primary insomnia] Onset: 4 02-26-2024 Chronic Miscellaneous mental health disorders (1 source) Anxiety about body function or health; Translations: [Other symptoms and signs involving emotional state] 01-27-2024 Episodic Mood disorders (20 sources) Depressive disorder; Translations: [Major depressive disorder, single episode, unspecified] Onset: 6 Resolved: 5 01-06-2006 Chronic Nonspecific chest pain (20 sources) Chest pain; Translations: [Chest pain, unspecified] Onset: 9 06-23-2019 Episodic Nutritional deficiencies (19 sources) Vitamin D deficiency; Translations: [Vitamin D deficiency, unspecified] Onset: 2 Chronic Osteoarthritis (2 sources) Osteoarthritis of left knee joint; Translations: [Unilateral [...] leg] 04-17-2023 Episodic Other connective tissue disease (2 sources) Muscle weakness; Translations: [Muscle weakness (generalized)] 07-28-2024 Episodic Other connective tissue disease (7 sources) Recurrent falls ; Translations: [Repeated falls] 07-10-2024 Episodic Other connective tissue disease (20 sources) [...] Translations: [Gastrointestinal symptoms] Episodic Other gastrointestinal disorders (20 sources) Constipation; Translations: [Constipation, unspecified] Episodic Other gastrointestinal disorders (3 sources) Constipation, unspecified; Translations: [Constipation, unspecified] Onset: 4 Episodic Other gastrointestinal disorders (20 sources) Abdominal bloating; Translations: [Abdominal distension (gaseous)] Episodic Other gastrointestinal disorders (7 sources) H/O: liver disease; Translations: [Personal history of other diseases of the digestive system] 07-21-2024 Episodic Other gastrointestinal disorders (2 sources) Abdominal distension (gaseous); Translations: [Abdominal distension (gaseous)] Onset: 5 Episodic Other inflammatory condition of skin (1 source) Vasculitis of the skin; Translations: [Vasculitis limited to the skin, unspecified] Episodic Other liver diseases (20 sources) Cirrhosis of liver; Translations: [Unspecified cirrhosis of liver] Onset: 0 11-01-2020 Chronic Other liver diseases (20 sources) Chronic nonalcoholic liver disease; Translations: [Other specified diseases of liver] Onset: 6 11-07-2021 Chronic Other liver diseases (20 sources) Steatosis of liver; Translations: [Fatty (change of) liver, not elsewhere classified] Onset: 4 01-27-2024 Chronic Other liver diseases (2 sources) Fatty (change of) liver, not elsewhere classified; Translations: [Fatty (change of) liver, not elsewhere classified] Onset: 4 Chronic Other liver diseases (3 sources) Unspecified cirrhosis of liver; Translations: [Unspecified cirrhosis of liver] Onset: 0 Chronic Other liver diseases (1 source) Other chronic nonalcoholic liver disease Onset: 6 07-02-2023 Chronic Other liver diseases (2 sources) Cirrhosis of liver without mention of alcohol Onset: 0 05-03-2010 Chronic Other liver diseases (1 source) Hepatic encephalopathy; Translations: [Hepatic encephalopathy (HCC)] Episodic Other lower respiratory disease (20 sources) Dyspnea on exertion; Translations: [Other forms of dyspnea] Onset: 9 06-23-2019 Episodic Other lower respiratory disease (7 sources) Dyspnea; Translations: [Shortness of breath] 01-06-2023 Episodic Other nervous system disorders (2 sources) Cognitive deficit in communication skills; Translations: [Cognitive communication deficit] 07-28-2024 Chronic Other nervous system disorders (1 source) Acute postoperative pain; Translations: [Acute post-operative pain] Episodic Other non-traumatic joint disorders (1 source) Arthritis of joint of right shoulder region; Translations: [Arthritis of right shoulder region] Other nutritional; endocrine; and metabolic disorders (20 sources) Body mass index 40+ - severely obese; Translations: [Morbid (severe) obesity due to excess calories] Onset: 1 11-01-2020 Chronic Other nutritional; endocrine; and metabolic disorders (13 sources) Severe obesity; Translations: [Morbid (severe) obesity due to excess calories] Onset: 5 Chronic Other nutritional; endocrine; and metabolic disorders (20 sources) Obesity; Translations: [Obesity, unspecified] Onset: 6 11-07-2021 Chronic Other nutritional; endocrine; and metabolic disorders (2 sources) Obesity, unspecified Onset: 6 07-02-2023 Chronic Other nutritional; endocrine; and metabolic disorders (1 source) Morbid obesity Onset: 1 11-08-2020 Chronic Other nutritional; endocrine; and metabolic disorders (7 sources) Body mass index 30+ - obesity; Translations: [Obesity, unspecified] 07-21-2024 Chronic Other nutritional; endocrine; and metabolic disorders (2 sources) Body mass index (BMI) 50.0-59.9, adult; Translations: [Body mass index (BMI) 50.0-59.9, adult (Multi)] Onset: 5 Chronic Other nutritional; endocrine; and metabolic disorders (2 sources) Morbid (severe) obesity due to excess calories; Translations: [Morbid (severe) obesity due to excess calories (Multi)] Onset: 4 Chronic Other nutritional; endocrine; and metabolic disorders (1 source) Obesity, unspecified; Translations: [Obesity, unspecified] Onset: 4 Chronic Other nutritional; endocrine; and metabolic disorders (2 sources) Alveolar hypoventilation; Translations: [Morbid (severe) obesity with alveolar hypoventilation] 03-22-2025 Chronic Other nutritional; endocrine; and metabolic disorders (3 sources) Weight increased; Translations: [Abnormal weight gain] 03-22-2025 Episodic Other skin disorders (2 sources) Localized swelling, [...] 2 Chronic Residual codes; unclassified (1 source) Obstructive sleep apnea (adult)(pediatric) Onset: 1 11-08-2020 Chronic Residual codes; unclassified (9 sources) Sleep apnea; Translations: [Sleep apnea, unspecified] Onset: 5 12-13-2024 Chronic Residual codes; unclassified (1 source) Sleep apnea, unspecified; Translations: [Sleep apnea, unspecified] Onset: 4 Chronic Residual codes; unclassified (3 sources) Pain; Translations: [Intractable pain] Onset: 5 Episodic Residual codes; unclassified (1 source) Early satiety; Translations: [Early satiety] Episodic Residual codes; unclassified (7 sources) Edema; Translations: [Edema, unspecified] 01-06-2023 Episodic Residual codes; unclassified (7 sources) Altered mental status; Translations: [Altered mental status, unspecified] 07-10-2024 Episodic Residual codes; unclassified (2 sources) Pain, unspecified; Translations: [Pain, unspecified] Onset: 5 Episodic Residual codes; unclassified (2 sources) Unable to comply with treatment; Translations: [Poor compliance with continuous positive airway pressure treatment] 03-22-2025 Episodic Retinal detachments; defects; vascular occlusion; and retinopathy (2 sources) Subretinal lesion; 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] Onset: 5 12-13-2024 Chronic Skin and subcutaneous tissue infections (1 source) [...] 2 09-02-2022 Unclassified (1 source) [place] [employer] 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 Review 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; Translations: [[facility] [employer] Instructor Supervisor Review Required] Onset: 3 Unclassified (9 sources) K59.00 - Constipation, unspecified,R14.0 - Abdominal distension (gaseous) Unclassified (1 source) Obesity, class 3; Translations: [Obesity, class 3] Onset: 5 Unclassified (1 source) Dementia in other diseases classified elsewhere, moderate, without behavioral disturbance, psychotic disturbance, mood disturbance, and anxiety (Multi); Translations: [Dementia in other diseases classified elsewhere, moderate, without behavioral disturbance, psychotic disturbance, mood disturbance, and anxiety (Multi)] Onset: 5 Urinary tract infections (12 sources) Urinary tract infectious disease; Translations: [Urinary tract infection, site not specified] Onset: 2 Episodic Viral infection (2 sources) COVID-19; Translations: [COVID-19] Onset: 2 Past or Other Problems Problem Classification Problem Date Documented Da te Episodic/Chronic Abdominal hernia (20 sources) Hernia of anterior abdominal wall; Translations: [Ventral hernia without obstruction or gangrene] Onset: 0 Resolved: 4 09-30-2013 Episodic Administrative/social admission (14 sources) Finding related to ability to use transport; Translations: [Other problems related to care provider dependency] Onset: 4 01-27-2024 Episodic Cancer of other GI organs; peritoneum (20 sources) Malignant neoplasm of gastrointestinal tract; Translations: [Gastrointestinal stromal tumor, unspecified site] Onset: 0 Resolved: 5 06-12-2010 Chronic Complications of surgical procedures or medical care (20 sources) Complication of procedure; Translations: [Other complications of procedures, not elsewhere classified, initial encounter] Onset: 1 11-08-2020 Episodic Diabetes mellitus without complication (14 sources) Hyperglycemia; Translations: [Hyperglycemia, unspecified] Onset: 3 05-23-2023 Episodic Diseases of mouth; excluding dental (20 sources) Aphthous ulcer of mouth; Translations: [Recurrent oral aphthae] Onset: 7 Resolved: 4 10-29-2006 Episodic E Codes: Adverse effects of medical drugs (20 sources) Antiviral drug adverse reaction; Translations: [Adverse effect of antiviral drugs, initial encounter] Onset: 7 02-18-2007 Episodic Gastritis and duodenitis (20 sources) Gastritis; Translations: [Gastritis, unspecified, without bleeding] Onset: 0 05-06-2010 Episodic Headache; including migraine (8 sources) Tension-type headache; Translations: [Tension-type headache, unspecified, not intractable] Onset: 3 Resolved: 4 05-23-2023 Chronic Headache; including migraine (7 sources) Acute headache; Translations: [Acute intractable headache] Onset: 2 10-19-2021 Episodic Hepatitis (20 sources) Viral hepatitis C; Translations: [Unspecified viral hepatitis C without hepatic coma] Onset: 1 11-01-2020 Episodic Hypertension with complications and secondary hypertension (17 sources) Hypertensive urgency ; Translations: [Hypertensive urgency] Onset: 2 Resolved: 4 Chronic Nausea and vomiting (20 sources) Nausea and vomiting; Translations: [Nausea with vomiting, unspecified] Onset: 7 10-06-2006 Episodic Other aftercare (20 sources) Patient encounter status; Translations: [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] Onset: 7 10-06-2006 Episodic Other aftercare (1 source) Long-term (current) use of other medications Onset: 7 07-01-2023 Episodic Other and unspecified benign neoplasm (20 sources) Neuroma; Translations: [Benign neoplasm of peripheral nerves and autonomic nervous system, unspecified] Onset: 1 11-08-2020 Episodic Other and unspecified benign neoplasm (20 sources) Gastric polyp; Translations: [Polyp of stomach and duodenum] Onset: 0 Resolved: 0 05-06-2010 Episodic Other and unspecified benign neoplasm (1 source) Other benign neoplasm of connective and other soft tissue, site unspecified Onset: 1 11-08-2020 Episodic Other and unspecified benign neoplasm (1 source) Benign neoplasm of stomach Onset: 0 Resolved: 0 05-06-2010 Episodic Other connective tissue disease (20 sources) Foot pain; Translations: [Pain in unspecified foot] Onset: 1 11-28-2020 Episodic Other connective tissue disease (20 sources) Calcaneal spur of right foot; Translations: [Calcaneal spur, right foot] Onset: 1 11-03-2020 Episodic Other connective tissue disease (20 sources) Neuropathy; Translations: [Neuralgia and neuritis, unspecified] Onset: 1 11-08-2020 Episodic Other connective tissue disease (1 source) Calcaneal spur Onset: 1 11-08-2020 Episodic Other connective tissue disease (1 source) Neuralgia, neuritis, and radiculitis, unspecified Onset: 1 11-08-2020 Episodic Other connective tissue disease (1 source) Neuralgia; Translations: [Neuralgia and neuritis, unspecified] Onset: 1 12-16-2010 Episodic Other gastrointestinal disorders (20 sources) History of bariatric surgical procedure; Translations: [Bariatric surgery status] Onset: 1 Resolved: 4 10-24-2020 Episodic Other gastrointestinal disorders (19 sources) Alteration in bowel elimination; Translations: [Change in bowel habit] Onset: 2 Episodic Other gastrointestinal disorders (20 sources) Esophageal dysphagia; Translations: [Other dysphagia] Onset: 2 Episodic Other gastrointestinal disorders (14 sources) Altered bowel function; Translations: [Change in bowel habit] Onset: 2 04-25-2022 Episodic Other gastrointestinal disorders (1 source) Bariatric surgery status Onset: 1 11-08-2020 Episodic Other gastrointestinal disorders (1 source) Other symptoms involving digestive system Onset: 2 04-25-2022 Episodic Other gastrointestinal disorders (1 source) Other dysphagia Onset: 2 04-25-2022 Episodic Other gastrointestinal disorders (1 source) Personal history of other diseases of the digestive system; Translations: [Personal history of other diseases of the digestive system] Onset: 4 Episodic Other infections; including parasitic (20 sources) Patient cured; Translations: [Personal history of other infectious and parasitic diseases] Onset: 6 Resolved: 4 04-18-2020 Episodic Other infections; including parasitic (1 source) Personal history of other infectious and parasitic diseases Onset: 6 04-18-2020 Episodic Other inflammatory condition of skin (2 sources) Vasculitis limited to the skin, unspecified; Translations: [Vasculitis limited to the skin, unspecified] Onset: 3 Episodic Other liver diseases (20 sources) Elevated levels of transaminase & lactic acid dehydrogenase; Translations: [Nonspecific elevation of levels of transaminase or lactic acid dehydrogenase (LDH)] Onset: 6 11-07-2021 Episodic Other liver diseases (1 source) Nonspecific elevation of levels of transaminase or lactic acid dehydrogenase [LDH] Onset: 6 07-01-2023 Episodic Other lower respiratory disease (1 source) Other respiratory abnormalities Onset: 9 11-08-2020 Episodic Other non-traumatic joint disorders (2 sources) Pain in left knee; Translations: [Pain in left knee] Onset: 3 Episodic Other nutritional; endocrine; and metabolic disorders (5 sources) Morbid obesity; Translations: [Morbid (severe) obesity due to excess calories] Onset: 4 Resolved: 5 02-26-2024 Chronic Other screening for suspected conditions (not mental disorders or infectious disease) (10 sources) Blood chemistry abnormal; Translations: [Abnormal finding of blood chemistry, unspecified] Onset: 3 Episodic Other skin disorders (20 sources) Disorder of skin and/or subcutaneous tissue; Translations: [Disorder of the skin and subcutaneous tissue, unspecified] Onset: 7 12-22-2006 Episodic Other skin disorders (1 source) Unspecified disorder of skin and subcutaneous tissue Onset: 7 12-26-2022 Episodic Residual codes; unclassified (20 sources) History of hernia repair; Translations: [Other specified postprocedural states] Onset: 6 07-16-2016 Episodic Residual codes; unclassified (20 sources) Insomnia; Translations: [Insomnia, unspecified] Onset: 7 12-24-2006 Episodic Residual codes; unclassified (1 source) Insomnia, unspecified Onset: 7 07-01-2023 Episodic Residual codes; unclassified (1 source) Other postprocedural status Onset: 6 11-08-2020 Episodic Residual codes; unclassified (2 sources) Acute insomnia; Translations: [Insomnia, unspecified] Onset: 7 10-19-2024 Episodic Residual codes; unclassified (7 sources) History of cardiac catheterization; Translations: [Other specified postprocedural states] Onset: 9 12-30-2022 Episodic Comment on above: Non Obstructive CAD; Lt Main: Normal; RCA: large dominant vessel with an area of 30-40% stenosis in mid RCA; LAD: mild diffuse disease in mid segment, moderate size diagonal 1 angiographically normal; Circumflex: mid circumflex before the region of large size OM1 has 30-40% stenosis. After the origin of OM1it continues as a small size vessel. per cardiac cath 07/08/19 @ [facility] codes; unclassified (1 source) Disorientation, unspecified; Translations: [Disorientation, unspecified] Onset: 4 Episodic Respiratory failure; insufficiency; arrest (adult) (2 sources) Acute respiratory failure with hypoxia; Translations: [Acute respiratory failure with hypoxia] Onset: 2 Episodic Spondylosis; intervertebral disc disorders; other back problems (3 sources) Sciatica; Translations: [Sciatica, left side] Onset: 3 Episodic Substance-related disorders (20 sources) Drug-induced mood disorder; Translations: [Other psychoactive substance use, unspecified with psychoactive substance-induced mood disorder] Onset: 7 01-04-2019 Episodic Unclassified (3 sources) Onset: 4 Resolved: 5 02-26-2024 Unclassified (1 source) [facility] [employer] In[employer] Supervisor Review Required; Translations: [[facility] [employer] Instructor Supervisor Review Required] Onset: 3 Unclassified (1 source) Obesity, class 3; Translations: [Obesity, class 3] Onset: 5 Unclassified (1 source) Dementia in other diseases classified elsewhere, moderate, without behavioral disturbance, psychotic disturbance, mood disturbance, and anxiety (Multi); Translations: [Dementia in other diseases classified elsewhere, moderate, without behavioral disturbance, psychotic disturbance, mood disturbance, and anxiety (Multi)] Onset: 5 Viral infection (10 sources) COVID-19; Translations: [Pneumonia due to other virus not elsewhere classified] Onset: 2 Resolved: 4 10-19-2021 Episodic Results Test Name Value Interpretation Reference Range Facility Absolute lymphocyte countOrd ered By: Phillip Wren on 03-22-2025 Lymphocytes Auto (Unsp spec) [#/Vol] 1.41 10*3/uL 0.83-4.51 [facility] Absolute neutrophil countOrd ered By: Phillip Wren on 03-22-2025 Neutrophils (Bld) [#/Vol] 4.5 10*3/uL 2.0-7.7 [facility] Anion gap in Serum or Plasma Ordered By: Phillipbeatrice Wren on 03-22-2025 Anion gap [Moles/Vol] 13 mmol/L 5-15 [facility] Automated lymphocyte count a s percentage of total leukocytesOrdered By: Phillipbeatrice Wren on 03-22-2025 Lymphocytes/100 WBC Auto (Unsp spec) 20.9 % 19-41 [facility] BUN/creatinine ratioOrdered By: Phillipbeatrice Wren on 03-22-2025 Urea nitrogen/Creatinine [Mass ratio] 12.4 mg/mg 10-20 [facility] Basophil percentageOrdered B y: Phillipbeatrice Wren on 03-22-2025 Basophils/100 WBC (Bld) 0.6 % 0-1 [facility] Carbon dioxide, total [Moles /volume] in Central venous bloodOrdered By: Phillipbeatrice Wren on 03-22-2025 CO2 [Moles/Vol] 23.9 mmol/L 21.0-32.0 [facility] Chloride assayOrdered By: [facility] on 03-22-2025 Chloride [Moles/Vol] 103 mmol/L 98-108 [facility] Eosinophil percentageOrdered By: [facility] on 03-22-2025 Eosinophils/100 WBC (Bld) 4.7 % 0-5 [facility] Erythrocyte distribution wid th ratioOrdered By: Phillipbeatrice Wren on 03-22-2025 Erythrocyte distribution width (RBC) [Ratio] 14.6 % 11.6-14.6 [facility] Erythrocyte distribution wid th standard deviationOrdered By: Phillipbeatrice Wren on 03-22-2025 Erythrocyte distribution width (RBC) [Ratio] 46.9 fl High 35.1-43.9 [facility] Glomerular filtration rate ( GFR) estimation/1.73 sq m using serum, plasma, or whole bOrdered By: Phillipbeatrice Wren on 03-22-2025 GFR/1.73 sq M.predicted among non-blacks MDRD (S/P/Bld) [Vol rate/Area] 51 mL/min/{1.73_m2} Low >60 [facility] Comment on above: mL/min/1.73m2 CKD-EP I Creatinine Equation (2020) Hematocrit Auto (Bld) [Volum e fraction]Ordered By: Phillipbeatrice Wren on 03-22-2025 Hematocrit (Bld) [Volume fraction] 42.1 % 37-47 [facility] Hemoglobin measurementOrdere d By: Phillip Wren on 03-22-2025 Hemoglobin (Bld) [Mass/Vol] 14.0 g/dL 12.0-15.0 [facility] Immature granulocytes/100 WB C Auto (Bld)Ordered By: Phillipbeatrice Wren on 03-22-2025 Immature granulocytes/100 WBC (Bld) 0.600 % 0.0-0.9 [facility] Comment on above: IG% - Immature Granu locytes (promyelocytes, myelocytes and metamyelocytes) > 1% indicates that a LEFT SHIFT is Present. MCV (mean corpuscular volume ) determinationOrdered By: Phillipbeatrice Wren on 03-22-2025 MCV (RBC) [Entitic vol] 88.3 fL 81-99 [facility] Mean corpuscular hemoglobin (MCH) determinationOrdered By: Phillipbeatrice rWen on 03-22-2025 MCH (RBC) [Entitic mass] 29.4 pg 27.0-32.0 [facility] Mean corpuscular hemoglobin concentration (MCHC) determinationOrdered By: Phillipbeatrice Wren on 03-22-2025 MCHC (RBC) [Mass/Vol] 33.3 g/dL 32-36 [facility] Mean platelet volume determi nationOrdered By: Phillipbeatrice Wren on 03-22-2025 Platelet mean volume (Bld) [Entitic vol] 11.4 fL 6.2-12.0 [facility] Monocyte percentageOrdered B y: Phillip Wren on 03-22-2025 Monocytes/100 WBC (Bld) 7.1 % 0-10 [facility] Natriuretic peptide.B prohor mehran N-Terminal [Mass/volume] in Serum or PlasmaOrdered By: Phillipbeatrice Wren on 03-22-2025 Natriuretic peptide.B prohormone N-Terminal [Mass/Vol] 213 pg/mL <900 [facility] Comment on above: Heart Failure Unlike ly: < 300 pg/mLHeart Failure Likely< 50 Years: > 450 pg/mL50-75 Years: > 900 pg/mL>75 Years: > 1800 pg/mL Neutrophil percentageOrdered By: Phillip Wren on 03-22-2025 Neutrophils/100 WBC (Bld) 66.1 % 47-70 [facility] Nucleated red blood cell per centageOrdered By: Phillip Wren on 03-22-2025 Nucleated RBC/100 WBC (Bld) [Ratio] 0 % 0-5 [facility] Platelet countOrdered By: Kera Wren on 03-22-2025 Platelets (Bld) [#/Vol] 163 10*3/uL 150-450 [facility] Potassium measurement (mass/ volume)Ordered By: Phillip Wren on 03-22-2025 Potassium (Unsp spec) [Mass/Vol] 4.5 mmol/L 3.3-5.1 [facility] RBC Auto (Bld) [#/Vol]Ordere d By: Phillip Wren on 03-22-2025 RBC (Bld) [#/Vol] 4.77 10*6/uL 4.2-5.4 [facility] Serum creatinine measurement (mass/volume)Ordered By: Phillip Wren on 03-22-2025 Creatinine [Mass/Vol] 1.19 mg/dL 0.70-1.20 [facility] Serum glucose measurement (m ass/volume)Ordered By: Phillip Wren on 03-22-2025 Glucose [Mass/Vol] 98 mg/dL 70-99 [facility] Serum or plasma calcium price urement (mass/volume)Ordered By: Phillip Wren on 03-22-2025 Calcium [Mass/Vol] 9.2 mg/dL 7.6-11.0 [facility] Serum or plasma urea nitroge n measurement (mass/volume)Ordered By: Phillip Wren on 03-22-2025 Urea nitrogen [Mass/Vol] 15 mg/dL 4-19 [facility] Sodium levelOrdered By: Phillip Wren on 03-22-2025 Sodium [Moles/Vol] 140 mmol/L 133-145 [facility] Troponin T.cardiac [Mass/vol ume] in Serum or Plasma by High sensitivity methodOrdered By: Phillip Wren on 03-22-2025 Troponin T.cardiac High sensitivity method [Mass/Vol] 10 ng/L <14 [facility] Troponin T.cardiac High sensitivity method [Mass/Vol] 12 ng/L <14 [facility] White blood cell (WBC) count Ordered By: Phillip Wren on 03-22-2025 WBC (Bld) [#/Vol] 6.7 10*3/uL 4.4-11.0 [facility] Colonoscopy Reporton 025 Colonoscopy Report [facility] Medical Records Department [address] [place] [address] Colonoscopy Report MR#: [id number] Acct: [id number] Name: MICHELINE FOX Rep #: [id number] : 1960 64 From: Elier Iyer DO PCP: Dr. Eduardo Murcia MD Status:REG [facility] Patient Name: Micheline Fox Procedure Date: 03/10/2025 1:39 PM Date of : 1960 Age: 64 Procedure: Colonoscopy Indications: Screening for colorectal malignant neoplasm Providers: Elier Iyer DO Referring MD: Eduardo Murcia Medicines: Monitored Anesthesia Care Patient Profile: This is a 64 year old female. Refer to note in patient chart for documentation of history and physical. Patient has symptoms of acute epigastric abdominal pain and acute dyspepsia. First Colonoscopy: [Date]. Last Colonoscopy: several years ago. Complications: No immediate complications. Procedure: Pre-Anesthesia Assessment: - Prior to the procedure, a History and Physical was performed, and patient medications and allergies were reviewed. The patient is competent. The risks and benefits of the procedure and the sedation options and risks were discussed with the patient. All questions were answered and informed consent was obtained. Patient identification and proposed procedure were verified by the physician in the pre-procedure area. Mental Status Examination: alert and oriented. Airway Examination: normal oropharyngeal airway and neck mobility. Respiratory Examination: clear to auscultation. CV Examination: normal. Prophylactic Antibiotics: The patient does not require prophylactic antibiotics. Prior Anticoagulants: The patient has taken no anticoagulant or antiplatelet agents except for NSAID medication. ASA Grade Assessment: II - A patient with mild systemic disease. After reviewing the risks and benefits, the patient was deemed in satisfactory condition to undergo the procedure. The anesthesia plan was to use monitored anesthesia care (MAC). Immediately prior to administration of medications, the patient was re-assessed for adequacy to receive sedatives. The heart rate, respiratory rate, oxygen saturations, blood pressure, adequacy of pulmonary ventilation, and response to care were monitored throughout the procedure. The physical status of the patient was re-assessed after the procedure. After I obtained informed consent, the scope was passed under direct vision. Throughout the procedure, the patient's blood pressure, pulse, and oxygen saturations were monitored continuously. The colonoscope was introduced through the anus and advanced to the cecum, identified by appendiceal orifice and ileocecal valve. The colonoscopy was performed without difficulty. The patient tolerated the procedure well. The quality of the bowel preparation was adequate. The ileocecal valve, appendiceal orifice, and rectum were photographed. Scope In: 1:40:29 PM Scope Withdrawal Time 0 hours 12 minutes 8 seconds Scope Out: 1:55:03 PM Total Procedure Duration Time 0 hours 14 minutes 34 seconds Findings: The perianal and digital rectal examinations were normal. A 5 mm polyp was found in the recto-sigmoid colon. The polyp was sessile. The polyp was removed with a cold biopsy forceps. Resection and retrieval were complete. Verification of patient identification for the specimen was done. Estimated blood loss was minimal. A 10 mm polyp was found in the descending colon. The polyp was sessile. The polyp was removed with a cold snare. Resection and retrieval were complete. Verification of patient identification for the specimen was done. Estimated blood loss was minimal. Bleeding external and internal hemorrhoids were found during retroflexion. The hemorrhoids were Grade III (internal hemorrhoids that prolapse but require manual reduction). The endoscope was withdrawn. A hemorrhoid was isolated with anoscopy. The ShortShot ligator was positioned over the hemorrhoid at the left lateral position. Suction was applied and one rubber band was placed over the hemorrhoid. This was checked to make certain that the muscularis was free of the band. Post-banding digital rectal exam showed band in good position. Mild oozing of blood was present. Impression: - One 5 mm polyp at the recto-sigmoid colon, removed with a cold biopsy forceps. Resected and retrieved. - One 10 mm polyp in the descending colon, removed with a cold snare. Resected and retrieved. - Bleeding external and internal hemorrhoids. Banded. Recommendation: - Repeat colonoscopy in 5 years for surveillance. - Return to GI office in 1 week. - Continue present medications. Procedure Code(s): --- Professional --- 76552, Colonoscopy, flexible; with removal of tumor(s), polyp(s), or other lesion(s) by snare technique 96796, 59, Colonoscopy, flexible; with biopsy, singl (more content not included)... Normal [facility] EGD Reporton 03-10-2025 EGD Report [facility] Medical Records Department [address] [place] [address] EGD Report MR#: [id number] Acct: [id number] Name: MICHELINE FOX Rep #: [id number] : 1960 64 From: Elier Iyer DO PCP: Dr. Eduardo Murcia MD Status:[facility] Patient Name: Micheline Fox Procedure Date: 03/10/2025 1:23 PM Date of : 1960 Age: 64 Procedure: Upper GI endoscopy Indications: Epigastric abdominal pain Providers: Elier Iyer DO Referring MD: Eduardo Murcia Medicines: Monitored Anesthesia Care Patient Profile: This is a 64 year old female. Refer to note in patient chart for documentation of history and physical. Patient has symptoms of acute epigastric abdominal pain and acute dyspepsia. Complications: No immediate complications. Procedure: Pre-Anesthesia Assessment: - Prior to the procedure, a History and Physical was performed, and patient medications and allergies were reviewed. The patient is competent. The risks and benefits of the procedure and the sedation options and risks were discussed with the patient. All questions were answered and informed consent was obtained. Patient identification and proposed procedure were verified by the physician in the pre-procedure area. Mental Status Examination: alert and oriented. Airway Examination: normal oropharyngeal airway and neck mobility. Respiratory Examination: clear to auscultation. CV Examination: normal. Prophylactic Antibiotics: The patient does not require prophylactic antibiotics. Prior Anticoagulants: The patient has taken no anticoagulant or antiplatelet agents except for NSAID medication. ASA Grade Assessment: II - A patient with mild systemic disease. After reviewing the risks and benefits, the patient was deemed in satisfactory condition to undergo the procedure. The anesthesia plan was to use monitored anesthesia care (MAC). Immediately prior to administration of medications, the patient was re-assessed for adequacy to receive sedatives. The heart rate, respiratory rate, oxygen saturations, blood pressure, adequacy of pulmonary ventilation, and response to care were monitored throughout the procedure. The physical status of the patient was re-assessed after the procedure. After obtaining informed consent, the endoscope was passed under direct vision. Throughout the procedure, the patient's blood pressure, pulse, and oxygen saturations were monitored continuously. The colonoscope was introduced through the mouth, and advanced to the fourth part of the duodenum. Small bowel enteroscopy was deemed necessary. The upper GI endoscopy was accomplished without difficulty. The patient tolerated the procedure well. Scope In: 1:34:18 PM Scope Out: 1:38:58 PM Total Procedure Duration Time 0 hours 4 minutes 40 seconds Findings: No gross lesions were noted in the entire esophagus. Patchy mild inflammation characterized by erosions was found in the gastric body. Biopsies were taken with a cold forceps for histology. Verification of patient identification for the specimen was done. Estimated blood loss was minimal. Biopsies were taken with a cold forceps for Helicobacter pylori testing. Verification of patient identification for the specimen was done. Estimated blood loss was minimal. Evidence of a Rob fundoplication was found in the gastric fundus. The wrap appeared not intact. A few localized erosions without bleeding were found in the duodenal bulb. Biopsies were taken with a cold forceps for histology. Verification of patient identification for the specimen was done. Estimated blood loss was minimal. Impression: - No gross lesions in the entire esophagus. - Gastritis. Biopsied. - A Rob fundoplication was found. The wrap appears not intact. - Duodenal erosions without bleeding. Biopsied. Recommendation: - Discharge patient to home. - Resume previous diet. - Continue present medications. - Await pathology results. Procedure Code(s): --- Professional --- 40308, Small intestinal endoscopy, enteroscopy beyond second portion of duodenum, not including ileum; with biopsy, single or multiple CPT copyright 2021 [employer]. All rights reserved. The codes documented in this report are preliminary and upon customer relationship specialist review may be revised to meet current compliance requirements. Elier Iyer DO 03/10/2025 1:59:19 PM This report has been signed electronically. Number of Addenda: 0 Note Initiated On: 03/10/2025 1:23 PM 03/10/25 1359 Date Elier Woods Signature: Date (if indicated) CC: Dr. Eduardo Murcia MD; Elier Iyer DO Date Dictated: 03/10/25 1323 Date Transcribed: Comic Book Designer: GREG Signed [facility] MR/POSTOP.Moira 03-10-2025 MR/POSTOP.[facility] Medical Records Department [address] [place] [address] Anesthesia Postop Eval I 03/10/25 140 MR#: [id number] Acct: [id number] Name: MICHELINE FOX Rep #: [id number] : 1960 64 From: Joe Cespedes PCP: Dr. Eduardo Murcia MD Status:REG [facility] Y Race: C Location: [place] [address] Anesthesia: Postop Eval I Current Vital Signs Temperature: 98.8 F Pulse Rate: 74 Blood Pressure: 148/86 Respiratory Rate: 16 Pulse Ox: 95 Oxygen Delivery Method: Room Air Assessment Airway patent: Yes Spontaneous unlabored respirations: Yes Mental status: Awake and Calm nausea: No Vomiting: No Anesthesia Complication: No Fluid Hydration Crystalloid volume administer (ml): 600 Total IV fluid infused: 600 Progress Note Anesthesia document: Postop Eval 1 completed: Yes 03/10/25 140 Date Joe Dickson Signature: Date CC: Signed [facility] MR/[id number] 03-10-2025 MR/POSTOPAN2 [facility] Medical Records Department [address] [place] [address] Anesthesia Postop Eval II 03/10/25 1546 MR#: [id number] Acct: [id number] Name: MICHELINE FOX Rep #: [id number] : 1960 64 From: Mitra Billings CRNA PCP: Dr. Eduardo Murcia MD Status:REG SDC Y Race: C Location: [facility]16-1 Anesthesia Postop Eval I Sum Postop Eval Completion status Anesthesia document: Postop Eval 1 completed: Yes Anesthesia Postop Eval I Summary Anesthesia Postop Eval I Summary: Anesthesia Postop Eval I: Assessment Summary Airway patent Yes 03/10/25 14:07 [email or web address] Spontaneous unlabored Yes 03/10/25 14:07 [email or web address] respirations Mental status Awake,Calm 03/10/25 14:07 [email or web address] nausea No 03/10/25 14:07 [email or web address] Vomiting No 03/10/25 14:07 [email or web address] Anesthesia Postop Eval I: Fluid Summary Crystalloid volume administer 600 03/10/25 14:07 [email or web address] (ml) Colloids volume administered ( ml) Blood Product volume administered (ml) Total IV fluid infused 600 03/10/25 14:07 [email or web address] Anesthesia Postop Eval I: Summary Notes Anesthesia Complication No 03/10/25 14:07 [email or web address] Anesthesia Complication Comment: Post-operative progress note Anesthesia: Postop Eval II Evaluation Mental status: Awake Pain Level: 0 nausea: No Vomiting: No 03/10/25 1546 Date Mitra Billings CUSTOMER ADVISOR Cosigner Signature: Date CC: Signed [facility] MR/Dickson 02-24-2025 MR/PAT.RIDDHI [facility] Medical Records Department [address] [place] [address] PAT - Anesthesia 02/24/25 0829 MR#: [id number] Acct: [id number] Name: MICHELINE FOX Rep #: [id number] : 1960 64 From: Aries Deutsch MD PCP: Dr. 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 When Was Last Pacemaker Check QUESTION #4 FULL TEXT: You/Your Family Experience fever (hyperthermia) with Anesthesia Last Oral Intake Last Oral intake: Last Oral Intake NPO since Meds taken in AM with sips of water? Meds patient instructed to take am of surgery PONV PONV - supervisor tank cleaning: PONV - supervisor tank cleaning Female Yes 02/21/25 10:27 HX of Motion Sickness No 02/21/25 10:27 HX of N/V After Surgery No 02/21/25 10:27 Non-Smoker Yes 02/21/25 10:27 Duration of Surgery greater No 02/21/25 10:27 than 60 minutes Number of Risk Factors 2 02/21/25 10:27 PONV Score Moderate Risk 02/21/25 10:27 Height Weight Height Weight: Anesthesia: Height Weight Height 5 ft 5 in 12/08/24 15:40 Respiratory Assessment Respiratory Assessment - supervisor tank cleaning: Respiratory Tract Infection Hx - supervisor tank cleaning Hx Respiratory Tract Infection No 02/21/25 10:27 STOP Sleep Apnea STOP Sleep Apnea - supervisor tank cleaning: STOP Sleep Apnea - supervisor tank cleaning Hx Hypertension Yes 02/21/25 10:27 Hx Sleep Apnea Yes 02/21/25 10:27 CPAP No: unable to wear 02/21/25 10:27 BIPAP No 02/21/25 10:27 Do you snore loudly (louder No 02/21/25 10:27 than talking or can be heard Do you often feel tired/ No 02/21/25 10:27 fatigued/ sleepy during daytime? Has anyone observed you stop No 02/21/25 10:27 breathing during sleep? STOP Results Positive 02/21/25 10:27 QUESTION #5 FULL TEXT : Do you snore loudly (louder than talking or can be heard through closed doors)? 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 Specify any problems Hx of Preganancy in last 3 No 02/21/25 10:27 Months Nurse Filling Out Transfusion [facility] 02/21/25 10:27 Questions: Date: 02/21/25 02/21/25 10:27 Time: 10:32 02/21/25 10:27 Patient unable to answer at this time (ie. confused, unrespo /Reproduction History /Reproductive History - supervisor tank cleaning: /Reproductive Hx- supervisor tank cleaning Hx Now No 02/21/25 10:27 Gestational Age (in weeks): EDC: Hx Hx Para Hx Section [facility] Medical History (Updated 02/21/25 @ 10:42 by Tiara Cha) Wears dentures Wears glasses Arthritis Ambulates with cane Cirrhosis Restless legs TIA (transient ischemic attack) Former smoker CPAP (continuous positive airway pressure) dependence Sleep apnea History of echocardiogram History of stress test Hypertension Cardiology follow-up encounter Chronic insomnia History of cirrhosis Obesity (BMI 30-39.9) Sleep apnea Chest pain Atherosclerotic heart disease of [place] coronary artery without angina pectoris Hepatitis C Essential hypertension Home Medications ???Medication ???Instructions ???Recorded ???Last Taken ???Type atorvastatin 40 mg tablet 40 mg PO DAILY cholesterol 4 Unknown History trazodone 100 mg tablet 100 mg PO DAILY mental health 06/22 Unknown History thiamine HCl (vitamin B1) 100 mg 100 mg PO DAILY #30 tabs 07/13/24 Unknown Rx (more content not included)... Normal [facility] CBC (INCLUDES DIFF/PLT)on Basophils (Bld) [#/Vol] 0.037 10*3/uL Normal 0-200 [facility] Comment on above: Performed By: #### 9 8775, 6399, 98070, 22900 #### [facility] [place] [address] Extension Associate: Satya Phipps MD Basophils/100 WBC (Bld) 0.6 % Normal [facility] Comment on above: Performed By: #### 9 3815, 6399, 37151, 91413 #### [facility] of [place] [address] Extension Associate: Satya Phipps MD Eosinophils (Bld) [#/Vol] 0.267 10*3/uL Normal 15-500 [facility] Comment on above: Performed By: #### 9 0595, 6399, 77306, 32079 #### [facility] [place] [address] Extension Associate: Satya Phipps MD Eosinophils/100 WBC (Bld) 4.3 % Normal [facility] Comment on above: Performed By: #### 9 7305, 6399, 24038, 50727 #### [facility] [place] [address] Extension Associate: Satya Phipps MD Erythrocyte distribution width (RBC) [Ratio] 14.1 % Normal 11.0-15.0 [facility] Comment on above: Performed By: #### 9 4025, 6399, 87002, 14040 #### [facility] [address] [place] [address] Extension Associate: Satya Phipps MD Hematocrit (Bld) [Volume fraction] 44.4 % Normal 35.0-45.0 [facility] Comment on above: Performed By: #### 9 4565, 6399, 59223, 31203 #### [facility] [address], [address] [place] [address] Extension Associate: Satya Phipps MD Hemoglobin (Bld) [Mass/Vol] 14.4 g/dL Normal 11.7-15.5 [facility] Comment on above: Performed By: #### 9 8895, 6399, 05234, 60262 #### [facility] of [address], [address] [place] [address] Extension Associate: Satya Phipps MD Lymphocytes (Bld) [#/Vol] 1.5 10*3/uL Normal 850-3900 [facility] Comment on above: Performed By: #### 9 9975, 6399, 86747, 24651 #### [facility] of [address], [address] [place] [address] Extension Associate: Satya Phipps MD Lymphocytes/100 WBC (Bld) 24.2 % Normal [facility] Comment on above: Performed By: #### 9 1575, 6399, 17193, 14319 #### [facility] of [address], [address] [place] [address] Extension Associate: Satya Phipps MD MCH (RBC) [Entitic mass] 29.3 pg Normal 27.0-33.0 [facility] Comment on above: Performed By: #### 9 7665, 6399, 19137, 58172 #### [facility] of [address], [address] [place] [address] Extension Associate: Satya Phipps MD MCHC (RBC) [Mass/Vol] 32.4 g/dL Normal 32.0-36.[address] [facility] Comment on above: Result Comment: For adults, a slight decrease in the calculated MCHC value (in the range of 30 to 32 g/dL) is most likely not clinically significant; however, it should be interpreted with caution in correlation with other red cell parameters and the patient's clinical condition. Performed By: #### 9 0715, 6399, 72525, 35362 #### [facility] of [place] [address] Extension Associate: Satya Phipps MD MCV (RBC) [Entitic vol] 90.2 fL Normal 80.0-100.0 [facility] Comment on above: Performed By: #### 9 1225, 63, 53248, 94458 #### [facility] of [place] [address] Extension Associate: Satya Phipps MD Monocytes (Bld) [#/Vol] 0.31 10*3/uL Normal 200-950 [facility] Comment on above: Performed By: #### 9 2665, 63, 80161, 14598 #### [facility] of [place] [address] Extension Associate: Satya Phipps MD Monocytes/100 WBC (Bld) 5.0 % Normal [facility] Comment on above: Performed By: #### 9 0375, 63, 31581, 69735 #### [facility] of [place] [address] Extension Associate: Satya Phipps MD Neutrophils (Bld) [#/Vol] 4.086 10*3/uL Normal 8450-4791 [facility] Comment on above: Performed By: #### 9 2665, 63, 90842, 62492 #### [facility] of [place] [address] Extension Associate: Satya Phipps MD Neutrophils/100 WBC (Bld) 65.9 % Normal [facility] Comment on above: Performed By: #### 9 266, 6399, 63737, 14310 #### [facility] of [place] [address] Extension Associate: Satya Phipps MD Platelet mean volume (Bld) [Entitic vol] 11.0 fL Normal 7.5-12.5 [facility] Comment on above: Performed By: #### 9 8465, 6399, 61070, 75815 #### [facility] [place] [address] Extension Associate: Satya Phipps MD Platelets (Bld) [#/Vol] 151 10*3/uL Normal 140-400 [facility] Comment on above: Performed By: #### 9 5205, 6399, 48209, 64026 #### [facility] of [place] [address] Extension Associate: Satya Phipps MD RBC (Bld) [#/Vol] 4.92 10*6/uL Normal 3.80-5.10 [facility] Comment on above: Performed By: #### 9 8915, 63, 19012, 95777 #### [facility] [place] [address] Extension Associate: Satya Phipps MD WBC (Bld) [#/Vol] 6.2 10*3/uL Normal 3.8-10.8 [facility] Comment on above: Performed By: #### 9 1545, 6399, 16053, 92993 #### [facility] [place] [address] Extension Associate: Satya Phipps MD COMPREHENSIVE METABOLIC PANE L W/ANION GAPon 02-07-2025 Albumin [Mass/Vol] 4.1 g/dL Normal 3.6-5.1 [facility] Comment on above: Order Comment: FASTI NG:YES FASTING: YES Performed By: #### 9 3675, 6399, 02512, 97390 #### [facility] of [place] [address] Extension Associate: Satya Phipps MD ALP [Catalytic activity/Vol] 86 U/L Normal 37-153 [facility] Comment on above: Order Comment: FASTI NG:YES FASTING: YES Performed By: #### 9 8295, 6399, 34490, 67361 #### [facility] of [address], [address] [place] [address] Extension Associate: Satya Phipps MD ALT [Catalytic activity/Vol] 38 U/L High 6-29 [facility] Comment on above: Order Comment: FASTI NG:YES FASTING: YES Performed By: #### 9 0505, 6399, 41357, 26258 #### [facility] of [place] [address] Extension Associate: Satya Phipps MD AST [Catalytic activity/Vol] 25 U/L Normal 10-35 [facility] Comment on above: Order Comment: FASTI NG:YES FASTING: YES Performed By: #### 9 2885, 6399, 63977, 17190 #### [facility] [place] [address] Extension Associate: Satya Phipps MD Bilirubin [Mass/Vol] 0.6 mg/dL Normal 0.2-1.2 [facility] Comment on above: Order Comment: FASTI NG:YES FASTING: YES Performed By: #### 9 5465, 6399, 85646, 36538 #### [facility] [place] [address] Extension Associate: Satya Phipps MD Calcium [Mass/Vol] 8.7 mg/dL Normal 8.6-10.4 [facility] Comment on above: Order Comment: FASTI NG:YES FASTING: YES Performed By: #### 9 1345, 6399, 78208, 13129 #### [facility] [place] [address] Extension Associate: Satya Phipps MD Chloride [Moles/Vol] 108 mmol/L Normal 98-110 [facility] Comment on above: Order Comment: FASTI NG:YES FASTING: YES Performed By: #### 9 6435, 6399, 49746, 05962 #### [facility] of [place] [address] Extension Associate: Satya Phipps MD CO2 [Moles/Vol] 26 mmol/L Normal 20-32 [facility] Comment on above: Order Comment: FASTI NG:YES FASTING: YES Performed By: #### 9 9325, 6399, 12229, 99291 #### [facility] [address], [address] [place] [address] Extension Associate: Satya Phipps MD Creatinine [Mass/Vol] 0.98 mg/dL Normal 0.50-1.05 [facility] Comment on above: Order Comment: FASTI NG:YES FASTING: YES Performed By: #### 9 1845, 6399, 66397, 55516 #### [facility] [place] [address] Extension Associate: Satya Phipps MD ELECTROLYTE BALANCE 8 mmol/L (calc) Normal 7-17 [facility] Comment on above: Order Comment: FASTI NG:YES FASTING: YES Performed By: #### 9 6075, 1699, 30984, 38269 #### [facility] [place] [address] Extension Associate: Satya Phipps MD GFR/1.73 sq M.predicted among non-blacks MDRD (S/P/Bld) [Vol rate/Area] 65 mL/min/{1.73_m2} Normal > OR = 60 [facility] Comment on above: Order Comment: FASTI NG:YES FASTING: YES Performed By: #### 9 6925, 0699, 22949, 68886 #### [facility] [place] [address] Extension Associate: Satya Phipps MD Glucose [Mass/Vol] 111 mg/dL High 65-99 [facility] Comment on above: Order Comment: FASTI NG:YES FASTING: YES Result Comment: Fasting reference interval For someone without known diabetes, a glucose value between 100 and 125 mg/dL is consistent with prediabetes and should be confirmed with a follow-up test. Performed By: #### 9 5725, 6399, 51200, 03151 #### [facility] [address], [address] [place] [address] Extension Associate: Satya Phipps MD Potassium [Moles/Vol] 4.2 mmol/L Normal 3.5-5.3 [facility] Comment on above: Order Comment: FASTI NG:YES FASTING: YES Performed By: #### 9 2785, 6399, 30078, 71718 #### [facility] [place] [address] Extension Associate: Satya Phipps MD Protein [Mass/Vol] 6.2 g/dL Normal 6.1-8.1 [facility] Comment on above: Order Comment: FASTI NG:YES FASTING: YES Performed By: #### 9 8005, 6399, 75598, 04447 #### [facility] [place] [address] Extension Associate: Satya Phipps MD Sodium [Moles/Vol] 142 mmol/L Normal 135-146 [facility] Comment on above: Order Comment: FASTI NG:YES FASTING: YES Performed By: #### 9 1345, 6399, 41498, 63024 #### [facility] [place] [address] Extension Associate: Satya Phipps MD Urea nitrogen [Mass/Vol] 22 mg/dL Normal 7-25 [facility] Comment on above: Order Comment: FASTI NG:YES FASTING: YES Performed By: #### 9 0625, 6399, 46825, 10764 #### [facility] [place] [address] Extension Associate: Satya Phipps MD HEMOGLOBIN A1c WITH eAGon eAG (mmol/L) 5.7 mmol/L Normal [facility] Comment on above: Performed By: #### 9 6865, 6399, 15403, 64871 #### [facility] [place] [address] Extension Associate: Satya Phipps MD HbA1c (Bld) [Mass fraction] 5.2 % Normal <5.7 [facility] Comment on above: Result Comment: For the purpose of screening for the presence of diabetes: <5.7% Consistent with the absence of diabetes 5.7-6.4% Consistent with increased risk for diabetes (prediabetes) > or =6.5% Consistent with diabetes This assay result is consistent with a decreased risk of diabetes. Currently, no consensus exists regarding use of hemoglobin A1c for diagnosis of diabetes in children. According to [place] [employer] (ADA) guidelines, hemoglobin A1c <7.0% represents optimal control in non- diabetic patients. Different metrics may apply to specific patient populations. Standards of Medical Care in Diabetes(ADA). Performed By: #### 9 2665, 6399, 62818, 30737 #### [facility] [place] [address] Extension Associate: Satya Phipps MD Magnesium [Mass/Vol] 103 mg/dL Normal [facility] Comment on above: Performed By: #### 9 2665, 6399, 69955, 11063 #### [facility] of [address], [address] [place] [address] Extension Associate: Satya Phipps MD TSHon 02-07-2025 TSH Normal [facility] Comment on above: Performed By: #### 9 2665, 6399, 30230, 47523 #### [facility] of [place] [address] Extension Associate: Satya Phipps MD VITAMIN D,25-OH,TOTAL,IAon 0 02-07-2025 VITAMIN D,25-OH,TOTAL,IA Normal [facility] Comment on above: Performed By: #### 9 2665, 6399, 78562, 26192 #### [facility] of [address], [address] [place] [address] Extension Associate: Satya Phipps MD Abdomen Single Viewon 2024 Abdomen Single View [facility] Services [address] [place] [address] [id number] Abdomen Single View MR#: [id number] Acct: [id number] Name: MICHELINE FOX Rep #: [id number] : 1960 F 64 From: Jarod Giron MD PCP: Dr. Eduardo Murcia MD Status: REG CLI Study: Abdomen Single View Date of Exam: 01/19/25 Exam# [id number] Ordering Dr: Vaishnavi Whitt PROCEDURE: ABDOMEN SINGLE VIEW 01/19/2025 REASON FOR EXAM: DAY 5 SITZ MARKER TECHNIQUE: Single view abdomen. 3 total images to include the entire abdomen and pelvis COMPARISON: 01/17/2025 FINDINGS: No marker is identified. Bowel gas pattern appears within limits. Surgical clips left lower quadrant, cholecystectomy, postsurgical changes left upper quadrant and intervertebral disc spacer L4-5 again noted. RAD/Abdomen Single View IMPRESSION: No markers remain currently. Reading Location: [facility] CC: DRILL RUNNER HELPER-C Vaishnavi Whitt; Dr. Eduardo Murcia MD Comic Book Designer: Signed Normal [facility] Abdomen Single Viewon 2024 Abdomen Single View [facility] Imaging Services [address] [place] [address] Abdomen Single View MR#: [id number] Acct: [id number] Name: MICHELINE FOX Rep #: [id number] : 1960 F 64 From: Andi Kelly MD PCP: Dr. Eduardo Murcia MD Status: REG CLI Study: Abdomen Single View Date of Exam: 01/17/25 Exam# [id number] Ordering Dr: Vaishnavi Whitt PROCEDURE: ABDOMEN SINGLE VIEW 01/17/2025 REASON FOR EXAM: DAY 3 SITZ MARKER TECHNIQUE: Single view abdomen. FINDINGS: Bowel gas: Bowel gas pattern is normal. No evidence of bowel obstruction. Calcifications: No suspicious calcifications. Status post cholecystectomy. Bones: The bones are unremarkable. Other: 3 days after the administration of sitzmarks radiopaque markers demonstrates 3 remaining markers consistent with normal colonic transit. RAD/Abdomen Single View IMPRESSION: Normal colonic transit. Reading Location: [facility] CC: CAROLYN Whitt; Dr. Eduardo Murcia MD Comic Book Designer: Signed Normal [facility] Misc.on 01-10-2025 [facility]. 4 COMMENT Normal . [facility] Comment on above: Order Comment: [id number] BETA AMYLOID LAV/FZ PLASMA Result Comment: Test Ordered: [id number] Enhanced Liver Fibrosis (ELF) ELF(TM) Score 11.03 [H ] Reference Range: <9.80 ELF(TM) Score Interpretation: Risk cut-offs to assess the likelihood of progression to cirrhosis and liver-related clinical events within 3.9 years following baseline ELF score (IQR: 14.0-22.4 months)*: Lower risk < 9.80 Mid risk 9.80 - 11.29 Higher risk >11.29 Note: The ELF(TM) Score is a unitless numerical value. *Julio Cesar SA, Randy ESQUEDA, Chiquis T, et al. Selonsertib for patients with bridging fibrosis or compensated cirrhosis due to SALINAS: Results from randomized phase III STELLAR trials. J Hepatol. 2020 Mar;73(1):26-39. Performed at: [address] [id number] Corporate Bond Trader: Lona Chacon MD, Phone: [phone] Performed at: [address] [id number] Corporate Bond Trader: Tj Lr PhD, Phone: [phone] Performed By: #### L 3410.9998 #### [facility] [address] [place] [address], [address] Hepatitis A AB, Totalon 12-20 HEPATITIS A,TOT Positive Abnormal Negative [facility] Comment on above: Result Comment: Comm ent: The HAV total antibody assay detects both IgG and IgM but does not differentiate between them. A negative result suggests susceptibility to infection. A positive result could be due to vaccination, previously resolved infection or active infection. Testing for HAV IgM should be performed if active HAV infection is suspected. [facility] offers profiles that will automatically reflex positive HAV total antibody results to IgM (e.g., panel #[id number] HAV Antibody w/ Rfx). Performed at: CB - [facility] [id number] Corporate Bond Trader: Tj Lr PhD, Phone: [phone] Performed By: #### L 3410.9998 #### [facility] [address] [place], [place], [id number] Hepatitis B Core Ab Totalon 01-07-2025 HEP B CORE,TOT Positive Abnormal Negative [facility] Comment on above: Performed By: #### L 3410.9998 #### [facility] [address] [place], [place], [id number] Absolute lymphocyte countOrd ered By: Vaishnavi Whitt on 01-05-2025 Lymphocytes Auto (Unsp spec) [#/Vol] 1.88 10*3/uL 0.83-4.51 [facility] Absolute neutrophil countOrd ered By: Vaishnavi Whitt on 01-05-2025 Neutrophils (Bld) [#/Vol] 4.4 10*3/uL 2.0-7.7 [facility] Anion gap in Serum or Plasma Ordered By: Vaishnavi Whitt on 01-05-2025 Anion gap [Moles/Vol] 11 mmol/L 5-15 [facility] Automated lymphocyte count a s percentage of total leukocytesOrdered By: Vaishnavi Whitt on 01-05-2025 Lymphocytes/100 WBC Auto (Unsp spec) 26.1 % 19-41 [facility] BUN/creatinine ratioOrdered By: Vaishnavi Whitt on 01-05-2025 Urea nitrogen/Creatinine [Mass ratio] 27.0 mg/mg High 10-20 [facility] Basophil percentageOrdered B y: Vaishnavi Whitt on 01-05-2025 Basophils/100 WBC (Bld) 0.7 % 0-1 [facility] Bilirubin, totalOrdered By: Vaishnavi Whitt on 01-05-2025 Bilirubin [Mass/Vol] 0.35 mg/dL 0.00-1.30 [facility] CBC W/Diff, Automatedon 12-20 Absolute Lymph 1.88 X10 3/uL Normal 0.83-4.51 [facility] Comment on above: Performed By: #### L 3100.0460, L3890.6301, L3100.0300, L3410.9998, L100.0100, L500.4050, L3890.6102, L3890.6202 #### [facility] [address] [place], [address] Absolute Neut 4.4 X10 3/uL Normal 2.0-7.7 [facility] Comment on above: Performed By: #### L 3100.0460, L3890.6301, L3100.0300, L3410.9998, L100.0100, L500.4050, L3890.6102, L3890.6202 #### [facility] [address] [place], [address] Basophils/100 WBC (Bld) 0.7 % Normal 0-1 [facility] Comment on above: Performed By: #### L 3100.0460, L3890.6301, L3100.0300, L3410.9998, L100.0100, L500.4050, L3890.6102, L3890.6202 #### [facility] [address] [place], [address] Eosinophils/100 WBC (Bld) 4.9 % Normal 0-5 [facility] Comment on above: Performed By: #### L 3100.0460, L3890.6301, L3100.0300, L3410.9998, L100.0100, L500.4050, L3890.6102, L3890.6202 #### [facility] [address] [place], [address] Erythrocyte distribution width (RBC) [Ratio] 14.5 % Normal 11.6-14.6 [facility] Comment on above: Performed By: #### L 3100.0460, L3890.6301, L3100.0300, L3410.9998, L100.0100, L500.4050, L3890.6102, L3890.6202 #### [facility] [address] [place], [address] Hematocrit (Bld) [Volume fraction] 40.9 % Normal 37-47 [facility] Comment on above: Performed By: #### L 3100.0460, L3890.6301, L3100.0300, L3410.9998, L100.0100, L500.4050, L3890.6102, L3890.6202 #### [facility] [address] [place], [address] (624) Hemoglobin (Bld) [Mass/Vol] 13.4 g/dL Normal 12.0-15.0 [facility] Comment on above: Performed By: #### L 3100.0460, L3890.6301, L3100.0300, L3410.9998, L100.0100, L500.4050, L3890.6102, L3890.6202 #### [facility] [address] [place], [address] IG% 0.400 Normal 0.0-0.9 [facility] Comment on above: Result Comment: IG% - Immature Granulocytes (promyelocytes, myelocytes and metamyelocytes) > 1% indicates that a LEFT SHIFT is Present. Performed By: #### L 3100.0460, L3890.6301, L3100.0300, L3410.9998, L100.0100, L500.4050, L3890.6102, L3890.6202 #### [facility] [address] [place], [address] ([address] Lymphocytes/100 WBC (Bld) 26.1 % Normal 19-41 [facility] Comment on above: Performed By: #### L 3100.0460, L3890.6301, L3100.0300, L3410.9998, L100.0100, L500.4050, L3890.6102, L3890.6202 #### [facility] [address] [place], [address] MCH (RBC) [Entitic mass] 29.4 pg Normal 27.0-32.0 [facility] Comment on above: Performed By: #### L 3100.0460, L3890.6301, L3100.0300, L3410.9998, L100.0100, L500.4050, L3890.6102, L3890.6202 #### [facility] [address] [place], [address] MCHC (RBC) [Mass/Vol] 32.8 g/dL Normal 32-36 [facility] Comment on above: Performed By: #### L 3100.0460, L3890.6301, L3100.0300, L3410.9998, L100.0100, L500.4050, L3890.6102, L3890.6202 #### [facility] [address] [place], [address] MCV (RBC) [Entitic vol] 89.7 fL Normal 81-99 [facility] Comment on above: Performed By: #### L 3100.0460, L3890.6301, L3100.0300, L3410.9998, L100.0100, L500.4050, L3890.6102, L3890.6202 #### [facility] [address] [place], [address] Monocytes/100 WBC (Bld) 6.9 % Normal 0-10 [facility] Comment on above: Performed By: #### L 3100.0460, L3890.6301, L3100.0300, L3410.9998, L100.0100, L500.4050, L3890.6102, L3890.6202 #### [facility] [address] [place], [address] Neutrophils/100 WBC (Bld) 61.0 % Normal 47-70 [facility] Comment on above: Performed By: #### L 3100.0460, L3890.6301, L3100.0300, L3410.9998, L100.0100, L500.4050, L3890.6102, L3890.6202 #### [facility] [address] [place], [address] Nucleated RBC (Bld) [#/Vol] 0 10*3/uL Normal 0-5 [facility] Comment on above: Performed By: #### L 3100.0460, L3890.6301, L3100.0300, L3410.9998, L100.0100, L500.4050, L3890.6102, L3890.6202 #### [facility] [address] [facility] [place], [address] Platelet mean volume (Bld) [Entitic vol] 11.0 fL Normal 6.2-12.0 [facility] Comment on above: Performed By: #### L 3100.0460, L3890.6301, L3100.0300, L3410.9998, L100.0100, L500.4050, L3890.6102, L3890.6202 #### [facility] [address] [place], [address] Platelets (Bld) [#/Vol] 179 10*3/uL Normal 150-450 [facility] Comment on above: Performed By: #### L 3100.0460, L3890.6301, L3100.0300, L3410.9998, L100.0100, L500.4050, L3890.6102, L3890.6202 #### [facility] [address] [place], [address] RBC (Bld) [#/Vol] 4.56 10*6/uL Normal 4.2-5.4 [facility] Comment on above: Performed By: #### L 3100.0460, L3890.6301, L3100.0300, L3410.9998, L100.0100, L500.4050, L3890.6102, L3890.6202 #### [facility] [address] [place], [place], [id number] (172) RDW SD 47.5 fl High 35.1-43.9 [facility] Comment on above: Performed By: #### L 3100.0460, L3890.6301, L3100.0300, L3410.9998, L100.0100, L500.4050, L3890.6102, L3890.6202 #### [facility] [address] [place], [place], [id number] WBC (Bld) [#/Vol] 7.2 10*3/uL Normal 4.4-11.0 [facility] Comment on above: Performed By: #### L 3100.0460, L3890.6301, L3100.0300, L3410.9998, L100.0100, L500.4050, L3890.6102, L3890.6202 #### [facility] [address] [place], [place], [id number] Carbon dioxide, total [Moles /volume] in Central venous bloodOrdered By: Vaishnavi Whitt on 01-05-2025 CO2 [Moles/Vol] 25.2 mmol/L 21.0-32.0 [facility] Chloride assayOrdered By: Milan Whitt on 01-05-2025 Chloride [Moles/Vol] 104 mmol/L 98-108 [facility] Comprehensive Metabolic Prof ilon 01-05-2025 Albumin [Mass/Vol] 4.0 g/dL Normal 3.4-4.8 [facility] Comment on above: Performed By: #### L 3100.0460, L3890.6301, L3100.0300, L3410.9998, L100.0100, L500.4050, L3890.6102, L3890.6202 #### [facility] [address] [place], [place], [id number] Albumin/Globulin [Mass ratio] 1.6 {ratio} Normal 0.9-2.4 [facility] Comment on above: Performed By: #### L 3100.0460, L3890.6301, L3100.0300, L3410.9998, L100.0100, L500.4050, L3890.6102, L3890.6202 #### [facility] [address] [place], [place], [id number] ALK PHOS 89 U/L Normal 35-104 [facility] Comment on above: Performed By: #### L 3100.0460, L3890.6301, L3100.0300, L3410.9998, L100.0100, L500.4050, L3890.6102, L3890.6202 #### [facility] [address] [place], [place], [id number] ALT [Catalytic activity/Vol] 37 U/L High <=34 [facility] Comment on above: Performed By: #### L 3100.0460, L3890.6301, L3100.0300, L3410.9998, L100.0100, L500.4050, L3890.6102, L3890.6202 #### [facility] [address] [place], [place], [id number] (996) AST [Catalytic activity/Vol] 33 U/L High <=31 [facility] Comment on above: Performed By: #### L 3100.0460, L3890.6301, L3100.0300, L3410.9998, L100.0100, L500.4050, L3890.6102, L3890.6202 #### [facility] [address] [place], [address] Bilirubin [Mass/Vol] 0.35 mg/dL Normal 0.00-1.30 [facility] Comment on above: Performed By: #### L 3100.0460, L3890.6301, L3100.0300, L3410.9998, L100.0100, L500.4050, L3890.6102, L3890.6202 #### [facility] [address] [place], [address] BUN/CRE 27.0 RATIO High 10-20 [facility] Comment on above: Performed By: #### L 3100.0460, L3890.6301, L3100.0300, L3410.9998, L100.0100, L500.4050, L3890.6102, L3890.6202 #### [facility] [address] [place], [address] Calcium [Mass/Vol] 9.0 mg/dL Normal 7.6-11.0 [facility] Comment on above: Performed By: #### L 3100.0460, L3890.6301, L3100.0300, L3410.9998, L100.0100, L500.4050, L3890.6102, L3890.6202 #### [facility] [address] [place], [address] Chloride [Moles/Vol] 104 mmol/L Normal 98-108 [facility] Comment on above: Performed By: #### L 3100.0460, L3890.6301, L3100.0300, L3410.9998, L100.0100, L500.4050, L3890.6102, L3890.6202 #### [facility] [address] [place], [address] CO2 [Moles/Vol] 25.2 mmol/L Normal 21.0-32.0 [facility] Comment on above: Performed By: #### L 3100.0460, L3890.6301, L3100.0300, L3410.9998, L100.0100, L500.4050, L3890.6102, L3890.6202 #### [facility] [address] [place], [place], [id number] (079) Creatinine [Mass/Vol] 1.01 mg/dL Normal 0.70-1.20 [facility] Comment on above: Performed By: #### L 3100.0460, L3890.6301, L3100.0300, L3410.9998, L100.0100, L500.4050, L3890.6102, L3890.6202 #### [facility] [address] [place], [address] GAP 11 Normal 5-15 [facility] Comment on above: Performed By: #### L 3100.0460, L3890.6301, L3100.0300, L3410.9998, L100.0100, L500.4050, L3890.6102, L3890.6202 #### [facility] [address] [place], [address] GFR/1.73 sq M.predicted among non-blacks MDRD (S/P/Bld) [Vol rate/Area] 63 mL/min/{1.73_m2} Normal >60 [facility] Comment on above: Result Comment: mL/m in/1.73m2 CKD-EPI Creatinine Equation (2020) Performed By: #### L 3100.0460, L3890.6301, L3100.0300, L3410.9998, L100.0100, L500.4050, L3890.6102, L3890.6202 #### [facility] [address] [place], [address] (312) Globulin (S) [Mass/Vol] 2.5 g/dL Normal 2.2-4.2 [facility] Comment on above: Performed By: #### L 3100.0460, L3890.6301, L3100.0300, L3410.9998, L100.0100, L500.4050, L3890.6102, L3890.6202 #### [facility] [address] [place], [address] Glucose [Mass/Vol] 85 mg/dL Normal 70-99 [facility] Comment on above: Performed By: #### L 3100.0460, L3890.6301, L3100.0300, L3410.9998, L100.0100, L500.4050, L3890.6102, L3890.6202 #### [facility] [address] [place], [address] Potassium [Moles/Vol] 4.7 mmol/L Normal 3.3-5.1 [facility] Comment on above: Performed By: #### L 3100.0460, L3890.6301, L3100.0300, L3410.9998, L100.0100, L500.4050, L3890.6102, L3890.6202 #### [facility] [address] [place], [address] Sodium [Moles/Vol] 140 mmol/L Normal 133-145 [facility] Comment on above: Performed By: #### L 3100.0460, L3890.6301, L3100.0300, L3410.9998, L100.0100, L500.4050, L3890.6102, L3890.6202 #### [facility] [address] [place], [address] T PROT 6.5 g/dL Normal 5.9-8.4 [facility] Comment on above: Performed By: #### L 3100.0460, L3890.6301, L3100.0300, L3410.9998, L100.0100, L500.4050, L3890.6102, L3890.6202 #### [facility] [address] [facility] [place], [place], [id number] (284) Urea nitrogen [Mass/Vol] 27 mg/dL High 4-19 [facility] Comment on above: Performed By: #### L 3100.0460, L3890.6301, L3100.0300, L3410.9998, L100.0100, L500.4050, L3890.6102, L3890.6202 #### [facility] [address] [place], [place], [id number] Eosinophil percentageOrdered By: Vaishnavi Whitt on 01-05-2025 Eosinophils/100 WBC (Bld) 4.9 % 0-5 [facility] Erythrocyte distribution wid th (RBC) [Ratio]Ordered By: Vaishnavi Whitt on 01-05-2025 Erythrocyte distribution width (RBC) [Entitic vol] 47.5 fL High 35.1-43.9 [facility] Erythrocyte distribution wid th ratioOrdered By: Vaishnavi Whitt on 01-05-2025 Erythrocyte distribution width (RBC) [Ratio] 14.5 % 11.6-14.6 [facility] Erythrocyte distribution wid th standard deviationOrdered By: Vaishnavi Whitt on 01-05-2025 Erythrocyte distribution width (RBC) [Ratio] 47.5 fl High 35.1-43.9 [facility] GFR/1.73 sq M.predicted nasrin g non-blacks MDRD (S/P/Bld) [Vol rate/Area]Ordered By: Vaishnavi Whitt on 01-05-2025 Estimated GFR (MDRD) Non-Af Amer 63 >60 [facility] Comment on above: mL/min/1.73m2 CKD-EP I Creatinine Equation (2020) Glomerular filtration rate ( GFR) estimation/1.73 sq m using serum, plasma, or whole bOrdered By: Vaishnavi Whitt on 01-05-2025 GFR/1.73 sq M.predicted among non-blacks MDRD (S/P/Bld) [Vol rate/Area] 63 mL/min/{1.73_m2} >60 [facility] Comment on above: mL/min/1.73m2 CKD-EP I Creatinine Equation (2020) HBV core Ab Ql (S)Ordered By : Vaishnavi Whitt on 01-05-2025 Hepatitis B Core Total Antibody Positive High Negative [facility] HBV surface Ab Ql (S)Ordered By: Vaishnavi Whitt on 01-05-2025 Hepatitis B Surface Antibody REAC [facility] Comment on above: <8.5 mIU/mL: Non-Nany ctive8.5<= x <11.5 mIU/mL: Indeterminate>=11.5 mIU/mL: Reactive Non Reactive: Inconsistent with immunity less than <10 mIU/mL Reactive: Consistent with immunity greater than or equal to 10 mIU/mL HBV surface Ag Ql (S)Ordered By: Vaishnavi Whitt on 01-05-2025 Hepatitis B Surface Antigen Non-Reactive Nonreactive [facility] Comment on above: Reactive: Presumptiv e evidence of HBV. Repeatedly reactive samples must be confirmed using a neutralization test ([facility] HBsAg Confirmatory Test)Non-Reactive: HBsAg not detected; does not exclude the possibility of exposure to HBV Hematocrit Auto (Bld) [Volum e fraction]Ordered By: Vaishnavi Whitt on 01-05-2025 Hematocrit (Bld) [Volume fraction] 40.9 % 37-47 [facility] Hemoglobin measurementOrdere d By: Vaishnavi Whitt on 01-05-2025 Hemoglobin (Bld) [Mass/Vol] 13.4 g/dL 12.0-15.0 [facility] Hepatitis A virus total anti body assayOrdered By: Vaishnavi Whitt on 01-05-2025 Hepatitis A Antibody Total Positive High Negative [facility] Comment on above: Comment: The HAV tot al antibody assay detects both IgG andIgM but does not differentiate between them. A negativeresult suggests susceptibility to infection. A positiveresult could be due to vaccination, previously resolvedinfection or active infection. Testing for HAV IgM shouldbe performed if active HAV infection is suspected. [facility] that will automatically reflex positive HAVtotal antibody results to IgM (e.g., panel #[id number] HAVAntibody w/ Rfx).Performed at: - [facility] [id number] [place], [place] [id number] Director: Tj Lr PhD, Phone: [phone] Hepatitis B Surface Antibody on 01-05-2025 HEP B Surf Ab REAC Normal [facility] Comment on above: Result Comment: <8.5 mIU/mL: Non-Reactive 8.5<= x <11.5 mIU/mL: Indeterminate >=11.5 mIU/mL: Reactive Non Reactive: Inconsistent with immunity less than <10 mIU/mL Reactive: Consistent with immunity greater than or equal to 10 mIU/mL Performed By: #### L 3410.9998 #### [facility] [address] [facility] [address] Hepatitis C Antibodyon 01-05 Hepatitis C Ab REAC Normal Nonreactive [facility] Comment on above: Result Comment: Reac tive: Presumptive evidence of antibodies to HCV. Follow CDC recommendations for supplemental testing. Non-Reactive: Antibodies to HCV were not detected; does not exclude the possibility of exposure to HCV Reactive Results are presumptive evidence of antibodies to HCV. Follow CDC recommendations for supplemental testing. Order confirmation testing: HCV Quant by PCR testing - HCVPCR lc#[id number] Non Reactive: < 0.8 Equivocal: >/= 0.8 to < 1.0 Reactive: >/= 1.0 The CDC requires that a reactive/equivocal HCV antibody result be sent out for confirmation. HCV Quant by PCR testing. Performed By: #### L 3410.9998 #### [facility] [address] [place], [address] Hepatitis C antibodyOrdered By: Vaishnavi Whitt on 01-05-2025 Hepatitis C Antibody REAC Nonreactive [facility] Comment on above: Reactive: Presumptiv e evidence of antibodies to HCV. Follow CDC recommendations for supplemental testing.Non-Reactive: Antibodies to HCV were not detected; does not exclude the possibility of exposure to HCVReactive Results are presumptive evidence of antibodies to HCV. Follow CDC recommendations for supplemental testing.Order confirmation testing: HCV Quant by PCR testing - HCVPCR lc#[id number] Non Reactive: < 0.8 Equivocal: >/= 0.8 to < 1.0 Reactive: >/= 1.0The CDC requires that a reactive/equivocal HCV antibody result be sent out for confirmation. HCV Quant by PCR testing. Immature granulocytes/100 WB C Auto (Bld)Ordered By: Vaishnavi Whitt on 01-05-2025 Immature granulocytes/100 WBC (Bld) 0.400 % 0.0-0.9 [facility] Comment on above: IG% - Immature Granu locytes (promyelocytes, myelocytes and metamyelocytes) > 1% indicates that a LEFT SHIFT is Present. L3890.6102on 01-05-2025 HEP B Surf Ag Non-Reactive Normal Nonreactive [facility] Comment on above: Result Comment: Reac tive: Presumptive evidence of HBV. Repeatedly reactive samples must be confirmed using a neutralization test ([employer] HBsAg Confirmatory Test) Non-Reactive: HBsAg not detected; does not exclude the possibility of exposure to HBV Performed By: #### L 3100.0460, L3890.6301, L3100.0300, L3410.9998, L100.0100, L500.4050, L3890.6102, L3890.6202 #### [facility] [address] [place], [address] Laboratory - Chemistry and C hemistry - challengeOrdered By: Vaishnavi Whitt on 01-05-2025 AST [Catalytic activity/Vol] 33 U/L High <32 [facility] - Microbiology an d Antimicrobial susceptibilityOrdered By: Vaishnavi Whitt on 01-05-2025 HBV surface Ag Ql (S) Non-Reactive Nonreactive [facility] Comment on above: Reactive: Presumptiv e evidence of HBV. Repeatedly reactive samples must be confirmed using a neutralization test ([employer] HBsAg Confirmatory Test)Non-Reactive: HBsAg not detected; does not exclude the possibility of exposure to HBV Lymphocytes Auto (Unsp spec) [#/Vol]Ordered By: Vaishnavi Whitt on 01-05-2025 Lymphocytes (Bld) [#/Vol] 1.88 10*3/uL 0.83-4.51 [facility] Lymphocytes/100 WBC Auto (Un sp spec)Ordered By: Vaishnavi Whitt on 01-05-2025 Lymphocytes/100 WBC (Bld) 26.1 % 19-41 [facility] MCV (mean corpuscular volume ) determinationOrdered By: Vaishnavi Whitt on 01-05-2025 MCV (RBC) [Entitic vol] 89.7 fL 81-99 [facility] Mean corpuscular hemoglobin (MCH) determinationOrdered By: Vaishnavi Whitt on 01-05-2025 MCH (RBC) [Entitic mass] 29.4 pg 27.0-32.0 [facility] Mean corpuscular hemoglobin concentration (MCHC) determinationOrdered By: Vaishnavi Whitt on 01-05-2025 MCHC (RBC) [Mass/Vol] 32.8 g/dL 32-36 [facility] Mean platelet volume determi nationOrdered By: Vaishnavi Whitt on 01-05-2025 Platelet mean volume (Bld) [Entitic vol] 11.0 fL 6.2-12.0 [facility] Miscellaneous procedureOrder ed By: Vaishnavi Whitt on 01-05-2025 Miscellaneous Test 4 COMMENT . [facility] Comment on above: Test Ordered: [id number] Enhanced Liver Fibrosis (ELF)ELF(TM) Score 11.03 [H ] BN Reference Range: <9.80ELF(TM) Score Interpretation:Risk cut-offs to assess the likelihood of progressionto cirrhosis and liver-related clinical events within3.9 years following baseline ELF score (IQR: 14.0-22.4months)*: Lower risk < 9.80 Mid risk 9.80 - 11.29 Higher risk >11.29Note: The ELF(TM) Score is a unitless numerical value.*Julio Cesar SA, Randy VW, Oksuzy T, et al. Selonsertibfor patients with bridging fibrosis or compensatedcirrhosis due to SALINAS: Results from randomized phaseIII STELLAR trials. J Hepatol. 2020 Mar;73(1):26-39.Performed at: [address] [id number] Director: Lona Chacon MD, Phone: [phone] at: [facility] [place], [place] [id number] Director: Tj Lr PhD, Phone: [phone] Monocyte percentageOrdered B y: Vaishnavi Whitt on 01-05-2025 Monocytes/100 WBC (Bld) 6.9 % 0-10 [facility] Neutrophil percentageOrdered By: Vaishnavi Whitt on 01-05-2025 Neutrophils/100 WBC (Bld) 61.0 % 47-70 [facility] Nucleated red blood cell per centageOrdered By: Vaishnavi Whitt on 01-05-2025 Nucleated RBC/100 WBC (Bld) [Ratio] 0 % 0-5 [facility] Platelet countOrdered By: Milan Whitt on 01-05-2025 Platelets (Bld) [#/Vol] 179 10*3/uL 150-450 [facility] Potassium (Unsp spec) [Mass/ Vol]Ordered By: Vaishnavi Whitt on 01-05-2025 Potassium [Moles/Vol] 4.7 mmol/L 3.3-5.1 [facility] Potassium measurement (mass/ volume)Ordered By: Vaishnavi Whitt on 01-05-2025 Potassium (Unsp spec) [Mass/Vol] 4.7 mmol/L 3.3-5.1 [facility] RBC Auto (Bld) [#/Vol]Ordere d By: Vaishnavi Whitt on 01-05-2025 RBC (Bld) [#/Vol] 4.56 10*6/uL 4.2-5.4 [facility] Serum creatinine measurement (mass/volume)Ordered By: Vaishnavi Whitt on 01-05-2025 Creatinine [Mass/Vol] 1.01 mg/dL 0.70-1.20 [facility] Serum globulin measurementOr dered By: Vaishnavi Whitt on 01-05-2025 Globulin (S) [Mass/Vol] 2.5 g/dL 2.2-4.2 [facility] Serum glucose measurement (m ass/volume)Ordered By: Vaishnavi Whitt on 01-05-2025 Glucose [Mass/Vol] 85 mg/dL 70-99 [facility] Serum hepatitis B virus core antibody detectionOrdered By: Vaishnavi Whitt on 01-05-2025 HBV core Ab Ql (S) Positive High Negative [facility] Serum hepatitis B virus surf vania antibody detectionOrdered By: Vaishnavi Whitt on 01-05-2025 HBV surface Ab Ql (S) REAC [facility] Comment on above: <8.5 mIU/mL: Non-[place] ctive8.5<= x <11.5 mIU/mL: Indeterminate>=11.5 mIU/mL: Reactive Non Reactive: Inconsistent with immunity less than <10 mIU/mL Reactive: Consistent with immunity greater than or equal to 10 mIU/mL Serum or plasma alanine serrato otransferase (ALT) measurementOrdered By: Vaishnavi Whitt on 01-05-2025 ALT [Catalytic activity/Vol] 37 U/L High <35 [facility] Serum or plasma albumin price urement (mass/volume)Ordered By: Vaishnavi Whitt on 01-05-2025 Albumin [Mass/Vol] 4.0 g/dL 3.4-4.8 [facility] Serum or plasma albumin/glob ulin mass ratioOrdered By: Vaishnavi Whitt on 01-05-2025 Albumin/Globulin [Mass ratio] 1.6 {ratio} 0.9-2.4 [facility] Serum or plasma alkaline tony sphatase measurementOrdered By: Vaishnavi Whitt on 01-05-2025 ALP [Catalytic activity/Vol] 89 U/L 35-104 [facility] Serum or plasma calcium price urement (mass/volume)Ordered By: Vaishnavi Whitt on 01-05-2025 Calcium [Mass/Vol] 9.0 mg/dL 7.6-11.0 [facility] Serum or plasma urea nitroge n measurement (mass/volume)Ordered By: Vaishnavi Whitt on 01-05-2025 Urea nitrogen [Mass/Vol] 27 mg/dL High 4-19 [facility] Sodium levelOrdered By: Francine Whitt on 01-05-2025 Sodium [Moles/Vol] 140 mmol/L 133-145 [facility] Total proteinOrdered By: Henny Whitt on 01-05-2025 Protein [Mass/Vol] 6.5 g/dL 5.9-8.4 [facility] White blood cell (WBC) count Ordered By: Vaishnavi Whitt on 01-05-2025 WBC (Bld) [#/Vol] 7.2 10*3/uL 4.4-11.0 [facility] XR KNEES BILATERAL 4+ VIEWS EACH (SPECIFY VIEWS IN COMMENTS)on 12-26-2024 XR KNEES BILATERAL 4+ VIEWS EACH (SPECIFY VIEWS IN COMMENTS) EXAMINATION: XR KNEES BILATERAL 4+ VIEWS EACH (SPECIFY VIEWS IN COMMENTS) HISTORY: Pain COMPARISON: 06/30/2023 IMPRESSION: FINDINGS/ 1. No acute fracture or dislocation. 2. Mild degeneration of the patellofemoral compartments. 3. Moderate degeneration of the bilateral knee medial compartments. 4. Mild degeneration of the bilateral knee lateral compartments. 5. Bilateral small to moderate knee joint effusions. Workstation ID: [id number] Dictated by: VALENTINA TEJEDA on ThuDec 26, 2024 3:35:44 PM EDT Transcribed by: VALENTINA TEJEDA on ThuDec 26, 2024 3:35:44 PM EDT Finalized by: VALENTINA TEJEDA on ThuDec 26, 2024 3:35:44 PM EDT Normal [facility] Comment on above: Order Comment: Injur y/Trauma or Illness?:Injury/Trauma How long have you had these symptoms (acute/chronic)?:Chronic Reason for exam?:Pt is a frequent heather. Bilateral knee pain x several years History of cancer?:unknown Surgeries, chemotherapy, or radiation?:unknown Type of Exam?:Initial Mechanism of injury?:Frequent Falls Abdomen Limitedon 12-15-2024 Abdomen Limited [facility] [address] [place], [place] [address] Abdomen Limited MR#: [id number] Acct: [id number] Name: MICHELINE FOX Rep #: [id number] : 1960 F 64 From: Jarod Giron MD PCP: Dr. Eduardo Murcia MD Status: REG CLI Study: Abdomen Limited Date of Exam: 12/15/24 Exam# [id number] Ordering Dr: Vaishnavi Whitt DRILL RUNNER HELPER- C EXAM: ABDOMEN LIMITED 12/15/2024 CLINICAL HISTORY: Epigastric pain COMPARISON: None available TECHNIQUE: Right upper quadrant abdominal ultrasound limited FINDINGS: The study is limited by bowel gas and body habitus. The pancreas is not well seen. The body and tail are obscured by bowel gas. The liver measures 17.2 cm and appears diffusely increased in echogenicity which can be seen with hepatic steatosis or other hepatocellular disease. Liver surface contour appears mildly lobular. No evidence of intrahepatic biliary ductal dilation. Hepatic color flow is present with flow within the portal vein appearing hepatopetal as expected. Report of cholecystectomy. Gallbladder fossa appears unremarkable. CBD 2 mm. The right kidney measures 9.5 x 4 x 4.5 cm without hydronephrosis, evidence of renal stone or perinephric edema seen. No free fluid seen. US/Abdomen Limited IMPRESSION: The study is limited by bowel gas and body habitus. The pancreas is not well seen. The body and tail are obscured by bowel gas. The liver measures 17.2 cm and appears diffusely increased in echogenicity which can be seen with hepatic steatosis or other hepatocellular disease. Report of cholecystectomy. Reading Location: [id number] CC: CAROLYN Whitt; Dr. Eduardo Murcia MD Comic Book Designer: Signed Normal [facility] OCT MACULA CIRRUS OU (BOTH E YES)on 12-13-2024 [facility] Radiology Study observation (narrative) [facility] Gastroenterology Visit Repor ton 12-08-2024 Gastroenterology Visit Report [facility] [address] [place] [address] OFFICE VISIT Date of Service: 12/08/24 MR#: [id number] Acct: [id number] Name: MICHELINE FOX Rep #: [id number] : 1960 Provider: CAROLYN gardner Age/Sex: 64/F Location: [facility] Status: Signed Intake Vital Signs 07/11/24 11:41 12/08/24 15:40 Height 5 ft 5 in 5 ft 5 in Weight: 288 lb 2 oz BMI 47.9 BP 164/114 H Respiration 16 Pulse 65 Pulse Oximetry (%) 92 Oxygen Delivery Method room air Intake Visit Reasons: Hemorrhoids Chief Complaint: Establish Care Allergies codeine Allergy (Verified 12/08/24 15:30) Unknown latex Allergy (Verified 12/08/24 15:30) Hives Penicillins Allergy (Verified 12/08/24 15:30) Unknown Medications ???Medication ???Instructions ???Recorded ???Confirmed ???Type atorvastatin 40 mg tablet 40 mg PO DAILY cholesterol 4 12/08/24 History trazodone 100 mg tablet 100 mg PO DAILY mental health 06/2212/08/24 History thiamine HCl (vitamin B1) 100 mg 100 mg PO DAILY #30 tabs 07/13/24 12/08/24 Rx tablet gabapentin 300 mg capsule 300 mg PO QHS 10/18/24 12/08/24 Hi story mirtazapine 15 mg tablet 15 mg PO QHS 10/18/24 12/08/24 His tory hydrocortisone acetate 25 mg 25 mg [place] QHS hemorrhoids #12 ea 12/08/24 Rx rectal suppository (Anusol-HC) ondansetron HCl 4 mg tablet 4 mg PO .COMPLEX #8 tabs 12/08/24 12/08/24 Rx pantoprazole 40 mg tablet,delayed 40 mg PO QDAY #90 tabs 12/08/24 0 12/08/24 Rx release peg 3350-electrolytes 236 240 ml PO Q10M #4,000 mL 12/08/24 12/08/24 Rx gram-22.74 gram-6.74 gram-5.86 gram solution (Golytely) propranolol 40 mg tablet 60 mg PO BID blood pressure 12/08/24 History sennosides 8.6 mg-docusate sodium 1 tab-cap PO BID PRN 12/08/24 History 50 mg tablet (Senna Plus) tenapanor 50 mg tablet (Ibsrela) 50 mg PO BID #60 tabs 12/08/24 Rx venlafaxine 150 mg tablet,extended 75 mg PO QDAY 12/08/24 12/08/24 History release 24 hr PFSH Medical History Chronic insomnia History of cirrhosis Obesity (BMI 30-39.9) Sleep apnea Chest pain Atherosclerotic heart disease of [place] coronary artery without angina pectoris Hepatitis C Essential hypertension Surgical History History of left heart catheterization (LHC) ( 07/08/19) History of lumbar spinal fusion History of herniorrhaphy History of hysterectomy History of appendectomy History of cholecystectomy History of bariatric surgery Family History Father CAD (coronary artery disease) Myocardial infarction History of coronary artery bypass surgery Grandmother Cardiac pacemaker in situ Mother Hypertension Social History housing: [facility] Smoking Status: Former smoker alcohol intake: former details: occasional substance use type: does not use caffeine: Yes Type: carbonated beverages Number of servings: 1 and coffee HPI HPI Chief Complaint: Establish Care Details: MICHELINE FOX, is a 64 F who presents to the office today for - prior colonoscopy in 2021 or 2022 - she reports she has such terrible internal and external hemorrhoids and was told she needed surgery and is ready to schedule this - c/o bloating, flatulence, constipation - straining with BM - she is taking Stool Softener 2 BID - lately she has been having a small stool every day - c/o rectal pain only with a BM - c/o weight gain - she is seeing blood in toilet water and on tissue - has urge to have a BM but is unable to evacuate stool - applies perineal pressure assists with elimination of stool - h/o hysterectomy in - vaginal deliveries - failed Linzess in the past - has never been on Trulance, Amitiza, or Ibsrela - failed Miralax - it did nothing B: banana and PB or a muffin or yogurt L: skips or dinner left overs or ham/turkey wrap D: protein starch - does not get enough vegetables - reports her water intake is not great - feels so bloated she does to want to drink much water - she denies any heart, lung or kidney disease - she has a fiber supplement - not yet started - occasional HB - denies any nausea - h/o bariatric surgery Exam Const General: cooperative, healthy appearing, no acute distress and well developed Nutritional Appearance: well nourished and obese Orientation: alert and oriented x3 HENMT Head: normocephalic Ears: hearing grossly normal bilaterally Mouth: moist mucous membranes Eyes Conjunctivae: conjunctivae normal Sclera: sclerae normal Neck Neck: lexii (more content not included)... Normal [facility] L3410.9998on 10-25-2024 [facility]. COMMENT Normal . [facility] Comment on above: Order Comment: [id number] BETA AMYLOID LAV/FZ PLASMA Result Comment: Test Ordered: [id number] Test(s) 939642-[id number] was developed and its performance characteristics determined by [facility]. It has not been cleared or approved by the Food and Drug Administration. p-ktk064 0.17 pg/mL L9 Reference Range: 0.00-0.18 Clinical cutoff value was established using samples from a patient cohort characterized with amyloid PET data. A p-oho147 value of >0.18 is a reported surrogate marker for beta amyloid pathology, and can be used to facilitate biological identification of Alzheimer's disease (1). p-hyc584 has also been used in clinical trials to monitor patients on anti-amyloid therapy (2,3). Test performed by [employer] chemiluminescent enzyme immunoassay (CLEIA). Values obtained with different methods cannot be used interchangeably. The validated limit of quantification is 0.06 pg/mL. Assay detection limit is 0.03 pg/mL. Footnotes Comment L9 Reference Range: . 1. Vishnu Hatch, et al. Diagnostic Accuracy of a Plasma Phosphorylated Tau 217 Immunoassay for Alzheimer Disease Pathology. [facility]NAC[facility] neurology (2023). 2. Vishnu Hatch, et al. Differential roles of A42/40, p-ska221 and p-aps848 for Alzheimer's trial selection and disease monitoring. Nature medicine 28.12 (2021): 1854-7923. 3. Annmarie HAYS, Yokasta M, Iglesia SC, et al. Association of Donanemab Treatment With Exploratory Plasma Biomarkers in Early Symptomatic Alzheimer Disease: A Secondary Analysis of the TRAILBLAZER-ALZ Randomized Clinical Trial. [facility] Neurol. 2021;79(12):9894-8997. Performed at: [facility] [address] [id number] Corporate Bond Trader: Sada Sweeney MD, Phone: [phone] Performed at: [address] [id number] Corporate Bond Trader: Tj Lr PhD, Phone: [phone] Performed By: #### L 3410.9998 #### [facility] [address] [place], [address] L3410.9998on 10-21-2024 [facility]. COMMENT Normal . [facility] Comment on above: Order Comment: [id number] BETA AMYLOID LAV/FZ PLASMA Result Comment: Test Ordered: [id number] Beta Amyloid 42/40 Ratio Test(s) 072138-Lckw-romuqat 42/40 Ratio; 096988- Beta-amyloid 42; 063551-Ajgk-frjhyuq 40 was developed and its performance characteristics determined by [employer]. It has not been cleared or approved by the Food and Drug Administration. Beta-amyloid 42/40 Ratio 0.113 Reference Range: >0.102 Beta-amyloid 42 23.04 pg/mL BN Reference Range: . Beta-amyloid 40 203.43 pg/mL BN Reference Range: . Plasma beta-amyloid 1-42/1-40 ratios less than or equal to 0.102 suggest a higher probability of a patient being clinically diagnosed with Alzheimer's Disease (AD), while values above 0.102 suggest a lower probability of AD diagnosis. Precise plasma testing of Beta Amyloid 42 and Beta Amyloid 40 has demonstrated comparable effectiveness to traditional cerebrospinal fluid testing and amyloid positron emission tomography (PET) scans. When assessing the risk of AD pathology as the underlying cause for mild cognitive impairment (MCI) or dementia, it is important to consider various factors such as medical and family history, nutritional deficiency biomarkers, neuroimaging, and physical, neurological, and neuropsychological examinations. Methodology: [employer] Chemiluminescence Enzyme Immunoassay (CLEIA). Values obtained with different methods cannot be used interchangeably. Performed at: [facility] [employer] [id number] Corporate Bond Trader: Lona Chacon MD, Phone: [phone] Performed at: [facility] [employer] [id number] Corporate Bond Trader: Tj Lr PhD, Phone: [phone] Performed By: #### L 3410.9998 #### [facility] [address] [place], [place], [address] Neurology Visit Reporton Neurology Visit Report [facility] [address] [place], [place] [address] OFFICE VISIT Date of Service: 10/18/24 MR#: [id number] Acct: [id number] Name: MICHELINE FOX Rep #: [id number] : 1960 Provider: Dr. Silas champagne MD Age/Sex: 64/F Location: [facility].BN Status: Signed HPI HPI Chief Complaint: Establish Care Details: The patient is a 64-year-old left handed female who presents to [facility]. She was referred 07/13/2024 by [facility] following admission for altered mental status and falls. She was deemed unsafe to return home at discharge and was sent to [facility] for rehabilitation. At discharge she was given titration dose to discontinue diazepam 5mg (1 tablet daily for 5 days, then 1 tablet every other day for 3 doses, then 1 tablet every third day for 3 doses, then stop). Her discharge diagnosis was encephalopathy. She had an MRI of her brain 07/11/2024 with radiology interpretation: No acute intracranial abnormality. Chronic microvascular changes. This patient is seen with her daughter and granddaughter present. She has a memory defect and is not fully aware of all of her hospitalizations and events. Patient is seen with Destiny Bennett nurse practitioner. This patient was admitted to [facility] 07/10/2024 for change of altered mental status and not acting herself. Patient has had recent falls. She was status post fall in her yard on the day of admission. She was getting her mail and fell on grass. Patient was complaining of whole body pain. She arrived in the ED in a c-collar. She denied LOC. Patient's had a recent admission at [facility]. She signed herself out after 3 days. Patient had recently been taken off of XanaxAnd had transition to Valium. Patient seems to have tolerated the transition from Xanax to Valium and scheduled to come off of Valium. Patient had been on Xanax 1 mg p.o. nightly for more more than 20 years. That is the dose that the patient says she took routinely and did not take any more than that. Patient had been a significant alcohol drinker in the past but that has been discontinued. Patient has not had any alcohol since being discharged from the hospital. Patient does have chronic cirrhosis but has not had difficulty with vomiting blood passing blood in stool coughing up blood or bleeding in her urine. Patient's had a 40 pound weight gain over the past year or so. At this point there is concern as to whether or not the patient has psychiatric issue or chronic brain issue. I did personally review MRI of the brain with family present. I agree that the patient does have some mild small vessel cerebrovascular disease. She has significant cortical atrophy. 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 ROS: General No recent viral type respiratory illnesses no fever HEENT: Gets sharp headache appears to radiate from neck to head. Has severe cervical spondylosis and multiple cervical surgeries with placement of cages C4-5 C5-6 C6-7. Conjunctival clear Respiratory does not cough up blood respiratory function intact Cardiac no history of chest pain or heart attacks Abdomen: Does not vomit blood or passed blood in stool or have tarry black stools. No abdominal pain. no hematuria Extremities arms appear to be functional. Lower extremities seem to have strength but patient has had frequent falls etiology unclear Skin no rash or other lesions Neurologic no strokes or seizures. Recent MRI indicated meningioma 1 at the falx 1 in the left parietal region. Exam Const Other: Blood pressure is 124/74 pulse 53 respirations 15 temperature 98.4 O2 sat 94%. General appearance is that of a lady that appears obese. BMI was not obtained. Respiratory clear to auscultation Cardiac no murmur regular rhythm Abdomen obese not distended Extremities no evidence of trauma on visualized areas. Skin no obvious lesions noted in visualized areas Neurologic examination: Mental status: Awake alert and oriented x 3. Memory testing showed that she recalled 3/3 objects immediately and recent memory. Remote memory has defects. Patient's Mini-Mental status was measured at 29/30. Language shows normal salon receptionist expression repetition naming. Insight and judgment appears adequate. Patient does understand that there is a need to discontinue alcohol. CN II-XII: Pupils equal round react to light. Visual conteh full. Extraocular muscles intact. Motor and sensory function face appears normal. Hearing swallowing phonation tongue normal. Motor examination showed that she had good strength both upper extremities. Lower extremities she appears to have good strength and is able to stand and walk. Cerebellar function showed minimal tremor on finger-nose maneuver. Otherwise no ataxia noted. (more content not included)... Normal [facility] Telephone Encounteron 2023 Condenser Setter Authentication Interface Message Text Attempted to contact patient. Left voicemail message on listed contact # to call [facility] at [phone]. Asked patient to reference #99 when calling back to our office. Ok to relay message below. Notified patient of unread MyChart message. Encouraged a phone call to reset password assisted by staffing if appropriate. Gastroenterology number provided for message delivery. Normal [facility] Telephone Encounteron 2023 Condenser Setter Authentication Interface Message Text Patient is in a rehab center. Patients daughter would like to talk to Jaime BECKHAM CNP about the patients health. Patient possibly being discharged Thursday. Patients daughter (POA) would like to know what stage cirrhosis she is in. Rocio has a lot of questions about patients health. Rocio would like to schedule Thu and Thursday mornings are best to schedule a telehealth visit. Normal [facility] Condenser Setter Authentication Interface Message Text Daughter calling back again. Please call her again regarding her mother. Daughter states she never received a phone call. Thanks. [phone] Daughter is very upset she has not talked to anyone. Normal [facility] Telephone Encounteron 2023 Condenser Setter Authentication Interface Message Text Pt calling requesting to speak with HEATHER Johnson, as soon as possible to discuss staying in the assisted living facility that she has been in since she was discharged from the hospital a week or two ago. Pt states that she was in [facility] for two days due to numerous falls. (Pt declined scheduling an appointment). Please return Pt's call at: . Thank you Normal [facility] Telephone Encounteron 2023 Condenser Setter Authentication Interface Message Text Pt called in the patient is in the hospital the daughter is the pt POA. The patient would like for her doctor to call the pt daughter Rocio. Please call her and discuss any test results with the pt daughter. She can be reached @ [phone]. Please call Rocio the patient daughter and speak with her about her mom. Thanks. Normal [facility] Telephone Encounteron 2023 Condenser Setter Authentication Interface Message Text Attempted to contact patient. Left voicemail message on listed contact # to call [facility] at [phone]. Asked patient to reference #99 when calling back to our office. Ok to relay message below. Pt was scheduled today at 1p and missed appt to review results. The results are unchanged from 2016 Fibroscan- diagnosis of cirrhosis is not new- recommend rescheduling appt if they'd like to discuss further 2016 Findings Mean KPa: 17.1 IQR/med (%): 16% Interpretation: Evidence of advanced fibrosis / cirrhosis (F4) This message will be transferred into patient my chart. Normal [facility] Telephone Encounteron 2023 Condenser Setter Authentication Interface Message Text PT daughter Rocio Called in to speak with the doctor concerning her mom. Her and Her sister share POA of the pt. Rocio would like to speak with the doctor about her mom recent Fibroscan she recently had. Pt daughter would like to know the results. Thanks [phone] Please call her. Normal [facility] Basic Metabolic Profile (BMP )on 07-13-2024 BUN/CRE 17.9 RATIO Normal 10-20 [facility] Comment on above: Order Comment: DINAH Liao PREVIOUS SPECIMEN REJECTED DUE TO MISLABEL. 07/13/24631 Manuel Herrera. Performed By: #### L 500.2500 #### [facility] [address] [place], [place], [id number] CA,Total 8.7 mg/dL Normal 8.5-10.1 [facility] Comment on above: Order Comment: DINAH Liao PREVIOUS SPECIMEN REJECTED DUE TO MISLABEL. 07/13/2432 Manuel Herrera. Performed By: #### L 500.2500 #### [facility] [address] [place], [address] Chloride [Moles/Vol] 108 mmol/L High 98-107 [facility] Comment on above: Order Comment: REDRA W. PREVIOUS SPECIMEN REJECTED DUE TO MISLABEL. 07/13/24631 Manuel R Herrera. Performed By: #### L 500.2500 #### [facility] [address] [place], [address] CO2 [Moles/Vol] 29.0 mmol/L Normal 21.0-32.0 [facility] Comment on above: Order Comment: REDRA W. PREVIOUS SPECIMEN REJECTED DUE TO MISLABEL. 07/13/24631 Manuel R Herrera. Performed By: #### L 500.2500 #### [facility] [address] [facility] [address] Creatinine [Mass/Vol] 1.23 mg/dL High 0.55-1.02 [facility] Comment on above: Order Comment: REDRA W. PREVIOUS SPECIMEN REJECTED DUE TO MISLABEL. 07/13/24631 Manuel R Herrera. Result Comment: The validity of the calculated GFR GFRAA in patients over 70 years has not been determined. Clinical correlation is essential. Performed By: #### L 500.2500 #### [facility] [address] [facility] [address] ECRCL 56.29 ml/min Normal [facility] Comment on above: Order Comment: REDRA W. PREVIOUS SPECIMEN REJECTED DUE TO MISLABEL. 07/13/24631 Manuel R Herrera. Performed By: #### L 500.2500 #### [facility] [address] [place], [address] EST GFR - AA 57 mL/min Low >60 [facility] Comment on above: Order Comment: REDRA W. PREVIOUS SPECIMEN REJECTED DUE TO MISLABEL. 07/13/24631 Manuel R Herrera. Result Comment: Afri can Somali GFR Calc Performed By: #### L 500.2500 #### [facility] [address] [place], [address] GAP 4 Low 5-15 [facility] Comment on above: Order Comment: REDRA W. PREVIOUS SPECIMEN REJECTED DUE TO MISLABEL. 07/13/24631 Manuel R Herrera. Performed By: #### L 500.2500 #### [facility] [address] [place], [address] GFR/1.73 sq M.predicted among non-blacks MDRD (S/P/Bld) [Vol rate/Area] 47 mL/min/{1.73_m2} Low >60 [facility] Comment on above: Order Comment: REDRA W. PREVIOUS SPECIMEN REJECTED DUE TO MISLABEL. 07/13/24631 Manuel R Herrera. Result Comment: Non- GFR Calc Performed By: #### L 500.2500 #### [facility] [address] [place], [address] Glucose [Mass/Vol] 97 mg/dL Normal 74-106 [facility] Comment on above: Order Comment: REDRA W. PREVIOUS SPECIMEN REJECTED DUE TO MISLABEL. 07/13/24631 Manuel R Herrera. Performed By: #### L 500.2500 #### [facility] [address] [place], [address] Potassium [Moles/Vol] 3.3 mmol/L Low 3.5-5.1 [facility] Comment on above: Order Comment: REDRA W. PREVIOUS SPECIMEN REJECTED DUE TO MISLABEL. 07/13/24631 Manuel R Herrera. Performed By: #### L 500.2500 #### [facility] [address] [place], [address] Sodium [Moles/Vol] 141 mmol/L Normal 136-145 [facility] Comment on above: Order Comment: REDRA W. PREVIOUS SPECIMEN REJECTED DUE TO MISLABEL. 07/13/24631 Manuel R Herrera. Performed By: #### L 500.2500 #### [facility] [address] [place], [address] Urea nitrogen [Mass/Vol] 22 mg/dL High 7-18 [facility] Comment on above: Order Comment: REDRA W. PREVIOUS SPECIMEN REJECTED DUE TO MISLABEL. 07/13/24631 Manuel R Herrera. Performed By: #### L 500.2500 #### [facility] [address] [place], [address] BUN Normal 7-18 [facility] Comment on above: Result Comment: This specimen has been REJECTED due to Laboratory criteria: MisLabelled. AFLICKINGER has been notified of need of recollection. 07/13/24628 Manuel R Herrera Performed By: #### L 3410.9998 #### [facility] [address] [place], [address] BUN/CRE Normal 10-20 [facility] Comment on above: Result Comment: This specimen has been REJECTED due to Laboratory criteria: MisLabelled. AFLICKINGER has been notified of need of recollection. 07/13/24628 Manuel R Herrera Performed By: #### L 3410.9998 #### [facility] [address] [place], [address] CA,Total Normal 8.5-10.1 [facility] Comment on above: Result Comment: This specimen has been REJECTED due to Laboratory criteria: MisLabelled. AFLICKINGER has been notified of need of recollection. 07/13/24628 Manuel R Herrera Performed By: #### L 3410.9998 #### [facility] [address] [place], [address] CL Normal 98-107 [facility] Comment on above: Result Comment: This specimen has been REJECTED due to Laboratory criteria: MisLabelled. AFLICKINGER has been notified of need of recollection. 07/13/24628 Amnuel R Herrera Performed By: #### L 3410.9998 #### [facility] [address] [place], [address] CO2 Normal 21.0-32.0 [facility] Comment on above: Result Comment: This specimen has been REJECTED due to Laboratory criteria: MisLabelled. MELISAICKINGER has been notified of need of recollection. 07/13/24628 Manuel R Herrera Performed By: #### L 3410.9998 #### [facility] [address] [place], [address] CREAT,SERUM Normal 0.55-1.02 [facility] Comment on above: Result Comment: This specimen has been REJECTED due to Laboratory criteria: MisLabelled. MELISAICKINGER has been notified of need of recollection. 07/13/24628 Manuel R Herrera Performed By: #### L 3410.9998 #### [facility] [address] [place], [address] EST GFR Normal >60 [facility] Comment on above: Result Comment: This specimen has been REJECTED due to Laboratory criteria: MisLabelled. MELISAICKINGER has been notified of need of recollection. 07/13/24628 Manuel R Herrera Performed By: #### L 3410.9998 #### [facility] [address] [place], [address] EST GFR - AA Normal >60 [facility] Comment on above: Result Comment: This specimen has been REJECTED due to Laboratory criteria: MisLabelled. MELISAICKINGER has been notified of need of recollection. 07/13/24628 Manuel R Herrera Performed By: #### L 3410.9998 #### [facility] [address] [place], [address] GAP Normal 5-15 [facility] Comment on above: Result Comment: This specimen has been REJECTED due to Laboratory criteria: MisLabelled. MELISAICKINGER has been notified of need of recollection. 07/13/24628 Manuel R Herrera Performed By: #### L 3410.9998 #### [facility] [address] [place], [address] GLU Normal 74-106 [facility] Comment on above: Result Comment: This specimen has been REJECTED due to Laboratory criteria: MisLabelled. MELISAICKINGER has been notified of need of recollection. 07/13/24628 Manuel R Herrera Performed By: #### L 3410.9998 #### [facility] [address] [place], [address] Potassium Normal 3.5-5.1 [facility] Comment on above: Result Comment: This specimen has been REJECTED due to Laboratory criteria: MisLabelled. MELISAICKINGER has been notified of need of recollection. 07/13/24628 Manuel R Herrera Performed By: #### L 3410.9998 #### [facility] [address] [place], [address] Basic Metabolic Profile (BMP) Normal 136-145 [facility] Comment on above: Result Comment: This specimen has been REJECTED due to Laboratory criteria: MisLabelled. MELISAICKINGER has been notified of need of recollection. 07/13/24628 Manuel R Herrera Performed By: #### L 3410.9998 #### [facility] [address] [place], [address] Basic Metabolic Profile (BMP )on 07-12-2024 BUN/CRE 17.8 RATIO Normal 10-20 [facility] Comment on above: Performed By: #### L 3410.9998 #### [facility] [address] [place], [address] CA,Total 8.6 mg/dL Normal 8.5-10.1 [facility] Comment on above: Performed By: #### L 3410.9998 #### [facility] [address] [place], [address] Chloride [Moles/Vol] 106 mmol/L Normal 98-107 [facility] Comment on above: Performed By: #### L 3410.9998 #### [facility] [address] [place], [address] CO2 [Moles/Vol] 28.0 mmol/L Normal 21.0-32.0 [facility] Comment on above: Performed By: #### L 3410.9998 #### [facility] [address] [place], [address] Creatinine [Mass/Vol] 1.29 mg/dL High 0.55-1.02 [facility] Comment on above: Result Comment: The validity of the calculated GFR GFRAA in patients over 70 years has not been determined. Clinical correlation is essential. Performed By: #### L 3410.9998 #### [facility] [address] [place], [address] ECRCL 53.44 ml/min Normal [facility] Comment on above: Performed By: #### L 3410.9998 #### [facility] [address] [place], [address] EST GFR - AA 54 mL/min Low >60 [facility] Comment on above: Result Comment: Afri can Somali GFR Calc Performed By: #### L 3410.9998 #### [facility] [address] [place], [address] GAP 6 Normal 5-15 [facility] Comment on above: Performed By: #### L 3410.9998 #### [facility] [address] [place], [address] GFR/1.73 sq M.predicted among non-blacks MDRD (S/P/Bld) [Vol rate/Area] 44 mL/min/{1.73_m2} Low >60 [facility] Comment on above: Result Comment: Non- GFR Calc Performed By: #### L 3410.9998 #### [facility] [address] [place], [address] Glucose [Mass/Vol] 100 mg/dL Normal 74-106 [facility] Comment on above: Result Comment: Fast ing Glucose result from 100 to 125 mg/dL suggests IMPAIRED HOMEOSTASIS per A.D.A. criteria. Performed By: #### L 3410.9998 #### [facility] [address] [place], [address] Potassium [Moles/Vol] 2.9 mmol/L Low 3.5-5.1 [facility] Comment on above: Performed By: #### L 3410.9998 #### [facility] [address] [place], [address] Sodium [Moles/Vol] 140 mmol/L Normal 136-145 [facility] Comment on above: Performed By: #### L 3410.9998 #### [facility] [address] [place], [address] Urea nitrogen [Mass/Vol] 23 mg/dL High 7-18 [facility] Comment on above: Performed By: #### L 3410.9998 #### [facility] [address] [place], [address] Bedside Glucoseon 07-12-2024 FINGERSTICK GLU 142 mg/dL High 74-106 [facility] Comment on above: Result Comment: KAJAL KUMAR OF PATIENT CARE PER NURSING PROTOCOL Performed By: #### L 3410.9998 #### [facility] [address] [place], [address] MR/CON.PCM.NEon 07-12-2024 MR/CON.PCM.NE [facility] Medical Records Department [address] [place] [address] Consultation - Neurology 07/12/24 1445 MR#: [id number] Acct: [id number] Name: MICHELINE FOX Rep #: [id number] : 1960 64 From: Katy Vieira DO PCP: Dr. Leticia Sylvester MD Status:ADM IN Location: [facility] [id number] Assessment and Plan: Neuro Assessment/Plan This is a 64 year old female with a past medical history of CAD, hepatitis C, hypertension who presented to [place] [facility] on 07/10/2024 for altered mental status, generalized weakness. In regards to mental status, MRI brain without clear etiology for symptoms, there is diffuse atrophy which appears more than expected for age. Labs notable for low vitamin B12 (less than 400) and Folate. Consideration for Wernike's encephaloapthy given other known vitamin deficiencies, and concern for inability to care for herself at home. Would recommend high dose thiamine supplementation if not completed already. Her neurologic examination is most notable for impaired attention. This may be delirium, or could been seen in B1 (thiamine deficiency). Affect throughout evaluation extremely flat, untreated psychiatric disease may be playing a role in cognitive function. In regards to generalized weakness, folate deficiency can cause a nutritional neuropathy. Overall strength appears preserved (at least 4/5). Recommend PT/OT, follow up neurology outpatient for EMG. I personally attended this patient and spent a total time of 60 minutes evaluating this patient including clinical assessment, review of chart, medical history imaging, and determining appropriate treatment and workup. HPI Consult Data Date of Consult: 07/12/24 HPI Narrative HPI Narrative: This is a 64 year old female with a past medical history of CAD, hepatitis C, hypertension who presented to [facility] on 07/10/2024 for altered mental status. Per EMS notes, EMS was called to the house by daughter after patient fell outside. Patient's daughter and nephew brought patient inside onto chair. She then slide onto the floor, where EMS assessed her. There was concern with medications, as number of pills did not match what she should have been taking. Unclear if this means she was taking less or more medications. She was recently hospitalized for psychiatric care, but left AMA. Daughter is concerned she is unable to care for herself (house not kept) Information as given by patient is limited. She reports she has been falling, and her legs won???t hold up her body. She reports this started weeks ago. She reports she will get confused, can???t remember her mail box number. I attempted to contact both daughters in the chart for further information. On arrival to the ED, she was found to be afebrile, on room air, with normal vitals. Basic labs show normal WBC count, creatinine 1.38 with BUN 20, AST 38, ALT 31. Urine analysis with LE and 1+bacteria. Ammonia <10, TSH 4.120, Folate 1.80, B12 328 PFSH Medical History Chest pain Atherosclerotic heart disease of [place] coronary artery without angina pectoris Hepatitis C Essential hypertension Home Medications ???Medication ???Instructions ???Recorded ???Last Taken ???Type atorvastatin 40 mg tablet 40 mg PO DAILY cholesterol 07/10/24 Unknown History diazepam 10 mg tablet 10 mg PO QHS PRN PRN anxiety 07/10/24 Unknown History eszopiclone 2 mg tablet 2 mg PO QHS PRN PRN sleep 07/10/24 Unknown History hydrochlorothiazide 25 mg tablet 25 mg PO DAILY diuretic 07/10/24 Unknown History propranolol 40 mg tablet 60 mg PO TID blood pressure 07/10/24 Unknown History sulfamethoxazole 800 1 tab PO BID infection 07/10/24 Unknown History mg-trimethoprim 160 mg tablet trazodone 100 mg tablet 100 mg PO DAILY mental health 07/10/24 Unknown History venlafaxine 75 mg capsule,extended 75 mg PO DAILY mental health 07/10/24 Unknown History release 24 hr zolpidem 10 mg tablet 10 mg PO QHS PRN PRN sleep 07/10/24 Unknown History Allergy/AdvReac Type Severity Reaction Status Date / Time codeine Allergy Unknown Verified 07/10/24 18:06 latex Allergy Hives Verified 07/10/24 18:06 Penicillins Allergy Unknown Verified 07/10/24 18:06 Family History Father CAD (coronary artery disease) Myocardial infarction History of coronary artery bypass surgery Grandmother Cardiac pacemaker in situ Surgical History History of left heart catheterization (LHC) ( 07/08/19) History of lumbar spinal fusion History of herniorrhaphy History of hysterectomy History of appendectomy History of cholecystectomy History of bariatric surgery Social History (more content not included)... Normal [facility] Alcohol, Blood (Medical)-Ser umon 07-11-2024 SERUM ETOH < 3.0 Normal [facility] Comment on above: Result Comment: The serum:whole blood ethanol ratio is approximately 1.14 and varies slightly with hematocrit. Medical Alcohol reference interval and critical value in non-tolerant individuals; 50 - 100 Impairment 100 Intoxication 100 - 250 Severe Poisoning 250 - 400 Deep/possible fatal coma Performed By: #### L 501.9520, L503.5510, L506.0250 #### [facility] [address] [place], [address] Ammoniaon 07-11-2024 Ammonia (P) [Mass/Vol] ug/dL Low 11-32 [facility] Comment on above: Performed By: #### L 501.9520, L503.5510, L506.0250 #### [facility] [address] [place], [address] Brain without Contraston Brain without Contrast [facility] Imaging Services [address] [place] [address] Brain without Contrast MR#: [id number] Acct: [id number] Name: MICHELINE FOX Rep #: [id number] : 1960 F 64 From: Haseeb May MD PCP: Dr. Leticia Sylvester MD Status: ADM IN Study: Brain without Contrast Date of Exam: 07/11/24 Exam# [id number] Ordering Dr: Vinicio Reeder DO [id number] EXAM: MR HEAD WITHOUT INTRAVENOUS CONTRAST CLINICAL INDICATION: encephalopathy TECHNIQUE: Multiplanar and multisequence MR images of the brain were obtained without intravenous contrast. COMPARISON: No relevant prior studies available. FINDINGS: BRAIN AND EXTRA-AXIAL SPACES: Increased T2 signal intensity within the cerebral white matter suggestive of chronic microvascular change. No intra- or extra-axial hemorrhage. No evidence of acute infarct. No intracranial mass or mass effect. Normal preservation of the barth/white matter interface. Posterior fossa structures are unremarkable. Ventricles are appropriate for age. No hydrocephalus. Basal cisterns are patent. SELLA: Normal. Normal sella turcica, pituitary gland, infundibular stalk, optic chiasm and hypothalamus. AUDITORY SYSTEM: Normal. The internal auditory canals are patent. BONES/JOINTS: Intact calvarium. SINUSES: Unremarkable as visualized. Clear. MASTOID AIR CELLS: Clear. ORBITS: Unremarkable as visualized. Both globes, extraocular muscles, optic nerves and retrobulbar fat appear unremarkable. VASCULATURE: Unremarkable as visualized. Normal flow voids in the major intracranial circulation. MRI/Brain without Contrast IMPRESSION: No acute intracranial abnormality. Chronic microvascular changes. Electronically Signed: Haseeb May MD at 16:25 EDT , CC: Dr. Vinicio Reeder DO; Dr. Leticia Sylvester MD Comic Book Designer: Signed Normal [facility] CBC W/Diff, Automatedon 06-22 Absolute Lymph 0.98 X10 3/uL Normal 0.83-4.51 [facility] Comment on above: Order Comment: [id number] 5 BETA AMYLOID LAV/FZ PLASMA Performed By: #### L 3410.9998 #### [facility] [address] [facility] [place], [address] Absolute Neut 5.8 X10 3/uL Normal 2.0-7.7 [facility] Comment on above: Order Comment: 83432 5 BETA AMYLOID LAV/FZ PLASMA Performed By: #### L 3410.9998 #### [facility] [address] [place], [address] Basophils/100 WBC (Bld) 0.6 % Normal 0-1 [facility] Comment on above: Order Comment: 73970 5 BETA AMYLOID LAV/FZ PLASMA Performed By: #### L 3410.9998 #### [facility] [address] [place], [address] Eosinophils/100 WBC (Bld) 1.2 % Normal 0-5 [facility] Comment on above: Order Comment: 41125 5 BETA AMYLOID LAV/FZ PLASMA Performed By: #### L 3410.9998 #### [facility] [address] [place], [address] Erythrocyte distribution width (RBC) [Ratio] 17.1 % High 11.6-14.6 [facility] Comment on above: Order Comment: 17695 5 BETA AMYLOID LAV/FZ PLASMA Performed By: #### L 3410.9998 #### [facility] [address] [place], [address] Hematocrit (Bld) [Volume fraction] 39.3 % Normal 37-47 [facility] Comment on above: Order Comment: 18808 5 BETA AMYLOID LAV/FZ PLASMA Performed By: #### L 3410.9998 #### [facility] [address] [place], [address] Hemoglobin (Bld) [Mass/Vol] 13.9 g/dL Normal 12.0-15.0 [facility] Comment on above: Order Comment: 33716 5 BETA AMYLOID LAV/FZ PLASMA Performed By: #### L 3410.9998 #### [facility] [address] [place], [address] IG% 0.300 Normal 0.0-0.9 [facility] Comment on above: Order Comment: 43621 5 BETA AMYLOID LAV/FZ PLASMA Result Comment: IG% - Immature Granulocytes (promyelocytes, myelocytes and metamyelocytes) > 1% indicates that a LEFT SHIFT is Present. Performed By: #### L 3410.9998 #### [facility] [address] [place], [address] Lymphocytes/100 WBC (Bld) 13.5 % Low 19-41 [facility] Comment on above: Order Comment: 04683 5 BETA AMYLOID LAV/FZ PLASMA Performed By: #### L 3410.9998 #### [facility] [address] [place], [address] MCH (RBC) [Entitic mass] 33.8 pg High 27.0-32.0 [facility] Comment on above: Order Comment: 03974 5 BETA AMYLOID LAV/FZ PLASMA Performed By: #### L 3410.9998 #### [facility] [address] [place], [address] MCHC (RBC) [Mass/Vol] 35.4 g/dL Normal 32-36 [facility] Comment on above: Order Comment: [id number] 5 BETA AMYLOID LAV/FZ PLASMA Performed By: #### L 3410.9998 #### [facility] [address] [place], [address] MCV (RBC) [Entitic vol] 95.6 fL Normal 81-99 [facility] Comment on above: Order Comment: [id number] 5 BETA AMYLOID LAV/FZ PLASMA Performed By: #### L 3410.9998 #### [facility] [address] [place], [address] Monocytes/100 WBC (Bld) 4.5 % Normal 0-10 [facility] Comment on above: Order Comment: 09989 5 BETA AMYLOID LAV/FZ PLASMA Performed By: #### L 3410.9998 #### [facility] [address] [place], [address] Neutrophils/100 WBC (Bld) 79.9 % High 47-70 [facility] Comment on above: Order Comment: [id number] 5 BETA AMYLOID LAV/FZ PLASMA Performed By: #### L 3410.9998 #### [facility] [address] [place], [address] Nucleated RBC (Bld) [#/Vol] 0 10*3/uL Normal 0-5 [facility] Comment on above: Order Comment: 01447 5 BETA AMYLOID LAV/FZ PLASMA Performed By: #### L 3410.9998 #### [facility] [address] [place], [address] Platelet mean volume (Bld) [Entitic vol] 11.8 fL Normal 6.2-12.0 [facility] Comment on above: Order Comment: [id number] 5 BETA AMYLOID LAV/FZ PLASMA Performed By: #### L 3410.9998 #### [facility] [address] [place], [address] Platelets (Bld) [#/Vol] 126 10*3/uL Low 150-450 [facility] Comment on above: Order Comment: 50531 5 BETA AMYLOID LAV/FZ PLASMA Performed By: #### L 3410.9998 #### [facility] [address] [place], [address] RBC (Bld) [#/Vol] 4.11 10*6/uL Low 4.2-5.4 [facility] Comment on above: Order Comment: 99942 5 BETA AMYLOID LAV/FZ PLASMA Performed By: #### L 3410.9998 #### [facility] [address] [place], [address] RDW SD 59.8 fl High 35.1-43.9 [facility] Comment on above: Order Comment: 03873 5 BETA AMYLOID LAV/FZ PLASMA Performed By: #### L 3410.9998 #### [facility] [address] [place], [address] WBC (Bld) [#/Vol] 7.3 10*3/uL Normal 4.4-11.0 [facility] Comment on above: Order Comment: 60865 5 BETA AMYLOID LAV/FZ PLASMA Performed By: #### L 3410.9998 #### [facility] [address] [place], [address] Comprehensive Metabolic Prof ilon 07-11-2024 Albumin [Mass/Vol] 3.4 g/dL Normal 3.2-5.0 [facility] Comment on above: Order Comment: DINAH Liao PREVIOUS SPECIMEN REJECTED DUE TO MISLABEL. 10/631 Manuel R Herrera. Performed By: #### L 500.2500 #### [facility] [address] [place], [address] Albumin/Globulin [Mass ratio] 1.1 {ratio} Normal 0.9-2.4 [facility] Comment on above: Order Comment: REDRA W. PREVIOUS SPECIMEN REJECTED DUE TO MISLABEL. 07/13/24631 Manuel R Herrera. Performed By: #### L 500.2500 #### [facility] [address] [place], [address] ALK P 84 U/L Normal 45-117 [facility] Comment on above: Order Comment: REDRA W. PREVIOUS SPECIMEN REJECTED DUE TO MISLABEL. 07/13/24631 Manuel R Herrera. Performed By: #### L 500.2500 #### [facility] [address] [place], [address] ALT [Catalytic activity/Vol] 34 U/L Normal 13-56 [facility] Comment on above: Order Comment: REDRA W. PREVIOUS SPECIMEN REJECTED DUE TO MISLABEL. 07/13/24631 Manuel R Herrera. Performed By: #### L 500.2500 #### [facility] [address] [place], [address] AST [Catalytic activity/Vol] 36 U/L Normal 15-37 [facility] Comment on above: Order Comment: REDRA W. PREVIOUS SPECIMEN REJECTED DUE TO MISLABEL. 07/13/24631 Manuel R Herrera. Performed By: #### L 500.2500 #### [facility] [address] [place], [address] Bilirubin [Mass/Vol] 1.60 mg/dL High 0.20-1.00 [facility] Comment on above: Order Comment: REDRA W. PREVIOUS SPECIMEN REJECTED DUE TO MISLABEL. 07/13/24631 Manuel R Herrera. Result Comment: For patients on eltrombopag therapy, use of Dimension [place] TBIL is not recommended. Performed By: #### L 500.2500 #### [facility] [address] [place], [address] BUN/CRE 16.4 RATIO Normal 10-20 [facility] Comment on above: Order Comment: REDRA W. PREVIOUS SPECIMEN REJECTED DUE TO MISLABEL. 07/13/24631 Manuel R Herrera. Performed By: #### L 500.2500 #### [facility] [address] [place], [address] CA,Total 9.3 mg/dL Normal 8.5-10.1 [facility] Comment on above: Order Comment: REDRA W. PREVIOUS SPECIMEN REJECTED DUE TO MISLABEL. 07/13/24631 Manuel R Herrera. Performed By: #### L 500.2500 #### [facility] [address] [place], [address] Chloride [Moles/Vol] 104 mmol/L Normal 98-107 [facility] Comment on above: Order Comment: REDRA W. PREVIOUS SPECIMEN REJECTED DUE TO MISLABEL. 07/13/24631 Manuel R Herrera. Performed By: #### L 500.2500 #### [facility] [address] [place], [address] CO2 [Moles/Vol] 30.0 mmol/L Normal 21.0-32.0 [facility] Comment on above: Order Comment: REDRA W. PREVIOUS SPECIMEN REJECTED DUE TO MISLABEL. 07/13/24631 Manuel R Herrera. Performed By: #### L 500.2500 #### [facility] [address] [place], [address] Creatinine [Mass/Vol] 1.28 mg/dL High 0.55-1.02 [facility] Comment on above: Order Comment: REDRA W. PREVIOUS SPECIMEN REJECTED DUE TO MISLABEL. 07/13/24631 Manuel R Herrera. Result Comment: The validity of the calculated GFR GFRAA in patients over 70 years has not been determined. Clinical correlation is essential. Performed By: #### L 500.2500 #### [facility] [address] [place], [address] ECRCL 53.41 ml/min Normal [facility] Comment on above: Order Comment: REDRA W. PREVIOUS SPECIMEN REJECTED DUE TO MISLABEL. 07/13/24631 Manuel R Herrera. Performed By: #### L 500.2500 #### [facility] [address] [place], [address] EST GFR - AA 54 mL/min Low >60 [facility] Comment on above: Order Comment: REDRA W. PREVIOUS SPECIMEN REJECTED DUE TO MISLABEL. 07/13/24631 Manuel R Herrera. Result Comment: Afri can Somali GFR Calc Performed By: #### L 500.2500 #### [facility] [address] [place], [address] GAP 4 Low 5-15 [facility] Comment on above: Order Comment: REDRA W. PREVIOUS SPECIMEN REJECTED DUE TO MISLABEL. 07/13/24631 Manuel R Herrera. Performed By: #### L 500.2500 #### [facility] [address] [place], [address] GFR/1.73 sq M.predicted among non-blacks MDRD (S/P/Bld) [Vol rate/Area] 45 mL/min/{1.73_m2} Low >60 [facility] Comment on above: Order Comment: REDRA W. PREVIOUS SPECIMEN REJECTED DUE TO MISLABEL. 07/13/24631 Manuel R Herrera. Result Comment: Non- GFR Calc Performed By: #### L 500.2500 #### [facility] [address] [place], [address] Globulin (S) [Mass/Vol] 3.0 g/dL Normal 2.2-4.2 [facility] Comment on above: Order Comment: REDRA W. PREVIOUS SPECIMEN REJECTED DUE TO MISLABEL. 07/13/24631 Manuel R Herrera. Performed By: #### L 500.2500 #### [facility] [address] [place], [address] Glucose [Mass/Vol] 115 mg/dL High 74-106 [facility] Comment on above: Order Comment: REDRA W. PREVIOUS SPECIMEN REJECTED DUE TO MISLABEL. 07/13/24631 Manuel R Herrera. Result Comment: Fast ing Glucose result from 100 to 125 mg/dL suggests IMPAIRED HOMEOSTASIS per A.D.A. criteria. Performed By: #### L 500.2500 #### [facility] [address] [place], [address] Potassium [Moles/Vol] 3.2 mmol/L Low 3.5-5.1 [facility] Comment on above: Order Comment: REDRA W. PREVIOUS SPECIMEN REJECTED DUE TO MISLABEL. 07/13/24631 Manuel R Herrera. Performed By: #### L 500.2500 #### [facility] [address] [place], [address] Sodium [Moles/Vol] 138 mmol/L Normal 136-145 [facility] Comment on above: Order Comment: REDRA W. PREVIOUS SPECIMEN REJECTED DUE TO MISLABEL. 07/13/24631 Manuel R Herrera. Performed By: #### L 500.2500 #### [facility] [address] [place], [address] T PROT 6.4 g/dL Normal 6.4-8.2 [facility] Comment on above: Order Comment: REDRA W. PREVIOUS SPECIMEN REJECTED DUE TO MISLABEL. 07/13/24631 Manuel R Herrera. Performed By: #### L 500.2500 #### [facility] [address] [place], [address] Urea nitrogen [Mass/Vol] 21 mg/dL High 7-18 [facility] Comment on above: Order Comment: REDRA W. PREVIOUS SPECIMEN REJECTED DUE TO MISLABEL. 07/13/24631 Manuel R Herrera. Performed By: #### L 500.2500 #### [facility] [address] [place], [address] Folates, (Folic Acid)on 06-22 FOLATES 1.80 ng/mL Low 3.1-55.4 [facility] Comment on above: Order Comment: Has P atient had X-rays with Contrast this admission? N N Performed By: #### L 501.9520, L503.5510, L506.0250 #### [facility] [address] [place], [address] Magnesiumon 07-11-2024 Magnesium [Mass/Vol] 2.3 mg/dL Normal 1.6-2.6 [facility] Comment on above: Order Comment: REDRA W. PREVIOUS SPECIMEN REJECTED DUE TO MISLABEL. 07/13/24631 Manuel Herrera. Performed By: #### L 500.2500 #### [facility] [address] [place], [address] Phosphoruson 07-11-2024 Phosphate [Mass/Vol] 3.4 mg/dL Normal 2.5-4.9 [facility] Comment on above: Order Comment: REDRA W. PREVIOUS SPECIMEN REJECTED DUE TO MISLABEL. 07/13/2432 Manuel Herrera. Performed By: #### L 500.2500 #### [facility] [address] [place], [address] T4 Free Directon 07-11-2024 T4 FREE DIRECT 1.15 ng/dL Normal 0.76-1.46 [facility] Comment on above: Order Comment: UTO X 2 PHLEBS, NURSE MADE AWARE Performed By: #### L 506.0400 #### [facility] [address] [place], [address] Thyroid Stim Hormone (TSH)on 07-11-2024 TSH 4.120 uIU/mL High 0.358-3.740 [facility] Comment on above: Order Comment: Has P atient had X-rays with Contrast this admission? N N Performed By: #### L 501.9520, L503.5510, L506.0250 #### [facility] [address] [place], [address] Vitamin B12on 07-11-2024 Cobalamin (Vitamin B12) [Mass/Vol] 328 pg/mL Normal 211-911 [facility] Comment on above: Order Comment: VRI Performed By: #### L 501.9520, L503.5510, L506.0250 #### [facility] [address] [place], [address] Alcohol, Blood (Medical)-Ser umon 07-10-2024 SERUM ETOH < 3.0 Normal [facility] Comment on above: Result Comment: The serum:whole blood ethanol ratio is approximately 1.14 and varies slightly with hematocrit. Medical Alcohol reference interval and critical value in non-tolerant individuals; 50 - 100 Impairment 100 Intoxication 100 - 250 Severe Poisoning 250 - 400 Deep/possible fatal coma Performed By: #### L 501.9520, L503.5510, L506.0250 #### [facility] [address] [place], [address] Ammoniaon 07-10-2024 Ammonia (P) [Moles/Vol] 14.0 umol/L Normal 11-32 [facility] Comment on above: Performed By: #### L 500.2500 #### [facility] [address] [place], [address] Brain/Head without Contrasto n 07-10-2024 Brain/Head without Contrast [facility] Services [address] [address] Brain/Head without Contrast MR#: [id number] Acct: [id number] Name: MICHELINE FOX Rep #: [id number] : 1960 F 64 From: Adonay Pritchett PCP: Dr. Leticia Sylvester MD Status: REG ER Study: Brain/Head without Contrast Date of Exam: 06/22 Exam# [id number] Ordering Dr: Chas Modi MD [id number] STUDY: CT BRAIN WITHOUT CONTRAST REASON FOR EXAM: Female, 64 years old. trauma Individualized dose optimization techniques were used for this CT. TECHNIQUE: Transaxial CT imaging of the brain was performed without administration of intravenous contrast material. COMPARISON: None FINDINGS: There are calcifications around the carotid artery. These are noted in the cavernous carotid arteries. There is hyperostosis frontalis internus. Normal soft tissues. There is a partially calcified mass along the Left extra-axial space. This is likely a meningioma. There is mild cerebral atrophy with widening of the extra-axial spaces and ventricular dilatation. There are areas of decreased attenuation within the white matter tracts of the supratentorial brain, consistent with microvascular disease changes. Normal basal ganglia and thalami. Normal brainstem. There is mild cerebellar atrophy. There is no intracranial hemorrhage. There are no findings of an acute ischemic infarction. Degenerative changes of the mandibular condyles. ASPECTS Score for Acute Strokes: 06/30 CT/Brain/Head without Contrast IMPRESSION: There are no acute findings. Chronic involutional changes of the brain. Electronically Signed: Adonay West MD at 20:41 EDT , CC: Dr. Chas Modi MD; Dr. Leticia Sylvester MD Comic Book Designer: Signed Normal [facility] CBC W/Diff, Automatedon 06-22 Absolute Lymph 1.50 X10 3/uL Normal 0.83-4.51 [facility] Comment on above: Performed By: #### L 501.9520, L503.5510, L506.0250 #### [facility] [address] [place], [address] Absolute Neut 6.6 X10 3/uL Normal 2.0-7.7 [facility] Comment on above: Performed By: #### L 501.9520, L503.5510, L506.0250 #### [facility] [address] [place], [address] Basophils/100 WBC (Bld) 0.5 % Normal 0-1 [facility] Comment on above: Performed By: #### L 501.9520, L503.5510, L506.0250 #### [facility] [address] [place], [address] Eosinophils/100 WBC (Bld) 0.9 % Normal 0-5 [facility] Comment on above: Performed By: #### L 501.9520, L503.5510, L506.0250 #### [facility] [address] [place], [address] Erythrocyte distribution width (RBC) [Ratio] 16.7 % High 11.6-14.6 [facility] Comment on above: Performed By: #### L 501.9520, L503.5510, L506.0250 #### [facility] [address] [place], [address] Hematocrit (Bld) [Volume fraction] 41.5 % Normal 37-47 [facility] Comment on above: Performed By: #### L 501.9520, L503.5510, L506.0250 #### [facility] [address] [place], [address] Hemoglobin (Bld) [Mass/Vol] 15.1 g/dL High 12.0-15.0 [facility] Comment on above: Performed By: #### L 501.9520, L503.5510, L506.0250 #### [place] [facility] [address] [place], [address] IG% 0.300 Normal 0.0-0.9 [facility] Comment on above: Result Comment: IG% - Immature Granulocytes (promyelocytes, myelocytes and metamyelocytes) > 1% indicates that a LEFT SHIFT is Present. Performed By: #### L 501.9520, L503.5510, L506.0250 #### [facility] [address] [place], [address] Lymphocytes/100 WBC (Bld) 17.3 % Low 19-41 [facility] Comment on above: Performed By: #### L 501.9520, L503.5510, L506.0250 #### [facility] [address] [place], [address] MCH (RBC) [Entitic mass] 33.6 pg High 27.0-32.0 [facility] Comment on above: Performed By: #### L 501.9520, L503.5510, L506.0250 #### [facility] [address] [place], [address] MCHC (RBC) [Mass/Vol] 36.4 g/dL High 32-36 [facility] Comment on above: Performed By: #### L 501.9520, L503.5510, L506.0250 #### [facility] [address] [place], [address] MCV (RBC) [Entitic vol] 92.4 fL Normal 81-99 [facility] Comment on above: Performed By: #### L 501.9520, L503.5510, L506.0250 #### [facility] [address] [place], [address] Monocytes/100 WBC (Bld) 5.4 % Normal 0-10 [facility] Comment on above: Performed By: #### L 501.9520, L503.5510, L506.0250 #### [facility] [address] [place], [address] Neutrophils/100 WBC (Bld) 75.6 % High 47-70 [facility] Comment on above: Performed By: #### L 501.9520, L503.5510, L506.0250 #### [facility] [address] [place], [address] Nucleated RBC (Bld) [#/Vol] 0 10*3/uL Normal 0-5 [facility] Comment on above: Performed By: #### L 501.9520, L503.5510, L506.0250 #### [facility] [address] [place], [address] Platelet mean volume (Bld) [Entitic vol] 11.6 fL Normal 6.2-12.0 [facility] Comment on above: Performed By: #### L 501.9520, L503.5510, L506.0250 #### [facility] [address] [place], [address] Platelets (Bld) [#/Vol] 128 10*3/uL Low 150-450 [facility] Comment on above: Performed By: #### L 501.9520, L503.5510, L506.0250 #### [facility] [address] [place], [address] RBC (Bld) [#/Vol] 4.49 10*6/uL Normal 4.2-5.4 [facility] Comment on above: Performed By: #### L 501.9520, L503.5510, L506.0250 #### [facility] [address] [place], [address] RDW SD 56.1 fl High 35.1-43.9 [facility] Comment on above: Performed By: #### L 501.9520, L503.5510, L506.0250 #### [facility] [address] [place], [address] WBC (Bld) [#/Vol] 8.7 10*3/uL Normal 4.4-11.0 [facility] Comment on above: Performed By: #### L 501.9520, L503.5510, L506.0250 #### [facility] [address] [place], [address] Chest 1 View (Portable)on Chest 1 View (Portable) [facility] Imaging Services [address] [place], [place] [address] Chest 1 View (Portable) MR#: [id number] Acct: [id number] Name: MICHELINE FOX Rep #: [id number] : 1960 F 64 From: Adonay Pritchett PCP: Dr. Leticia Sylvester MD Status: REG ER Study: Chest 1 View (Portable) Date of Exam: 07/10/24 Exam# [id number] Ordering Dr: Chas Modi MD [id number] STUDY: XR Chest 1 View 07/10/2024 8:01 PM REASON FOR EXAM: Female, 64 years old. trauma COMPARISON: None TECHNIQUE: XR Chest 1 View FINDINGS: There is no demonstrated pleural abnormality. Normal heart size. Normal mediastinum. Normal danuta. Prominent appearing increased interstitial lung markings. Normal visualized pulmonary arteries. There is atherosclerotic calcification of the aortic arch with tortuosity. There are diffuse degenerative changes of the visualized thoracic spine. There is degenerative osteoarthritis of the bilateral shoulders. There are no acute findings of the upper abdomen. RAD/Chest 1 View (Portable) IMPRESSION: There are no acute findings. Electronically Signed: Adonay West MD at 20:40 EDT , CC: Dr. Chas Modi MD; Dr. Leticia Sylvester MD Comic Book Designer: Signed Normal [facility] Comprehensive Metabolic Prof ilon 07-10-2024 Albumin [Mass/Vol] 3.8 g/dL Normal 3.2-5.0 [facility] Comment on above: Performed By: #### L 501.9520, L503.5510, L506.0250 #### [facility] [address] [place], [address] Albumin/Globulin [Mass ratio] 1.3 {ratio} Normal 0.9-2.4 [facility] Comment on above: Performed By: #### L 501.9520, L503.5510, L506.0250 #### [facility] [address] [place], [address] ALK P 92 U/L Normal 45-117 [facility] Comment on above: Performed By: #### L 501.9520, L503.5510, L506.0250 #### [facility] [address] [place], [address] ALT [Catalytic activity/Vol] 31 U/L Normal 13-56 [facility] Comment on above: Performed By: #### L 501.9520, L503.5510, L506.0250 #### [facility] [address] [place], [address] AST [Catalytic activity/Vol] 38 U/L High 15-37 [facility] Comment on above: Performed By: #### L 501.9520, L503.5510, L506.0250 #### [facility] [address] [place], [address] Bilirubin [Mass/Vol] 2.10 mg/dL High 0.20-1.00 [facility] Comment on above: Result Comment: For patients on eltrombopag therapy, use of Dimension [place] TBIL is not recommended. Performed By: #### L 501.9520, L503.5510, L506.0250 #### [facility] [address] [place], [address] BUN/CRE 14.5 RATIO Normal 10-20 [facility] Comment on above: Performed By: #### L 501.9520, L503.5510, L506.0250 #### [facility] [address] [place], [address] CA,Total 9.6 mg/dL Normal 8.5-10.1 [facility] Comment on above: Performed By: #### L 501.9520, L503.5510, L506.0250 #### [facility] [address] [place], [address] Chloride [Moles/Vol] 99 mmol/L Normal 98-107 [facility] Comment on above: Performed By: #### L 501.9520, L503.5510, L506.0250 #### [facility] [address] [place], [address] CO2 [Moles/Vol] 26.0 mmol/L Normal 21.0-32.0 [facility] Comment on above: Performed By: #### L 501.9520, L503.5510, L506.0250 #### [facility] [address] [place], [address] Creatinine [Mass/Vol] 1.38 mg/dL High 0.55-1.02 [facility] Comment on above: Result Comment: The validity of the calculated GFR GFRAA in patients over 70 years has not been determined. Clinical correlation is essential. Performed By: #### L 501.9520, L503.5510, L506.0250 #### [facility] [address] [place], [address] ECRCL 50.54 ml/min Normal [facility] Comment on above: Performed By: #### L 501.9520, L503.5510, L506.0250 #### [facility] [address] [place], [address] EST GFR - AA 50 mL/min Low >60 [facility] Comment on above: Result Comment: Afri can Somali GFR Calc Performed By: #### L 501.9520, L503.5510, L506.0250 #### [facility] [address] [place], [address] GAP 12 Normal 5-15 [facility] Comment on above: Performed By: #### L 501.9520, L503.5510, L506.0250 #### [facility] [address] [place], [address] GFR/1.73 sq M.predicted among non-blacks MDRD (S/P/Bld) [Vol rate/Area] 41 mL/min/{1.73_m2} Low >60 [facility] Comment on above: Result Comment: Non- GFR Calc Performed By: #### L 501.9520, L503.5510, L506.0250 #### [facility] [address] [place], [address] Globulin (S) [Mass/Vol] 3.0 g/dL Normal 2.2-4.2 [facility] Comment on above: Performed By: #### L 501.9520, L503.5510, L506.0250 #### [facility] [address] [place], [address] Glucose [Mass/Vol] 95 mg/dL Normal 74-106 [facility] Comment on above: Performed By: #### L 501.9520, L503.5510, L506.0250 #### [facility] [address] [place], [address] Potassium [Moles/Vol] 2.7 mmol/L Invalid Interpretation Code 3.5-5.1 [facility] Comment on above: Result Comment: Crit ical Result(s) Called at: 21:24:13 07/10/2024 by: Reshma Melendez to Lisa Mclain. Results read back by same. Performed By: #### L 501.9520, L503.5510, L506.0250 #### [facility] [address] [place], [address] Sodium [Moles/Vol] 137 mmol/L Normal 136-145 [facility] Comment on above: Performed By: #### L 501.9520, L503.5510, L506.0250 #### [facility] [address] [place], [address] T PROT 6.8 g/dL Normal 6.4-8.2 [facility] Comment on above: Performed By: #### L 501.9520, L503.5510, L506.0250 #### [facility] [address] [place], [address] Urea nitrogen [Mass/Vol] 20 mg/dL High 7-18 [facility] Comment on above: Performed By: #### L 501.9520, L503.5510, L506.0250 #### [facility] [address] [place], [address] Emergency Department Summary on 07-10-2024 Emergency Department Summary [facility] Medical Records Department [address] [place] [address] Emergency Department Summary 07/10/24 MR#: [id number] Acct: [id number] Name: MICHELINE FOX Donald Rep #: [id number] : 1960 64 From: Chas Modi MD PCP: Dr. Leticia Sylvetser MD Status:ADM IN Location: [address] HPI History of Present Illness Chief Complaint: Alt LOC Narrative Narrative: 64-year-old female brought in for altered mental status and not acting herself. She is status post fall in her yard. She relates history that she was outside getting her mail and fell in her grass. She complains of all over body pain. She arrives to the emergency department in a c-collar. She denies loss of consciousness. Her history and physical is limited secondary to altered mental status. According to her daughter who is her medical power of real estate associate attorney, patient has had recent admission at psychiatric facility in [place]. After 3 days she signed herself out. She thinks that she is not taking her medications correctly and not acting herself. She states that she recently came off Xanax last month after being on it for years. At times, she states that she goes to [facility] where she can be manipulative, and receives pain medication, and then is discharged home. Patient has history of cirrhosis of the liver, but she does not drink alcohol any longer. Her daughter is very concerned about her behavior and that there are pictures of her rolling around in the grass with the dog outside. She states that patient's house is unkempt as well as the patient and she is not taking care of herself. She has had 40 pound weight gain recently as well. Daughter feels that she needs either medical help or psychiatric help. [facility] Medical History Chest pain Atherosclerotic heart disease of [place] coronary artery without angina pectoris Hepatitis C Essential hypertension Home Medications ???Medication ???Instructions ???Recorded ???Last Taken ???Type atorvastatin 40 mg tablet 40 mg PO DAILY 07/10/24 Unknown History diazepam 10 mg tablet 10 mg PO QHS PRN PRN anxiety 07/10/24 Unknown History eszopiclone 2 mg tablet 2 mg PO QHS PRN PRN . 07/10/24 Unknown History hydrochlorothiazide 25 mg tablet 25 mg PO DAILY 07/10/24 Unknown History propranolol 40 mg tablet 60 mg PO TID 07/10/24 Unknown History sulfamethoxazole 800 1 tab PO BID 07/10/24 Unknown History mg-trimethoprim 160 mg tablet trazodone 100 mg tablet 100 mg PO DAILY 07/10/24 Unknown History venlafaxine 75 mg capsule,extended 75 mg PO DAILY 07/10/24 Unknown History release 24 hr zolpidem 10 mg tablet 10 mg PO QHS PRN PRN sleep 07/10/24 Unknown History Allergy/AdvReac Type Severity Reaction Status Date / Time codeine Allergy Unknown Verified 07/10/24 18:06 latex Allergy Hives Verified 07/10/24 18:06 Penicillins Allergy Unknown Verified 07/10/24 18:06 Family History Father CAD (coronary artery disease) Myocardial infarction History of coronary artery bypass surgery Grandmother Cardiac pacemaker in situ Surgical History History of left heart catheterization (LHC) ( 07/08/19) History of lumbar spinal fusion History of herniorrhaphy History of hysterectomy History of appendectomy History of cholecystectomy History of bariatric surgery Social History Smoking Status: Former smoker alcohol intake: current details: occasional substance use type: does not use caffeine: Yes Type: carbonated beverages Number of servings: 1 and coffee ROS ROS ED ROS Narrative Unable to obtain from patient's secondary to mental status change. Patient only complains of allover body pain. EXAM Physical Exam Narrative Exam Narrative: GCS 15. ABCs intact. Patient is awake mildly slow to respond, but alert and oriented to person place, and time. Cardiovascular examination reveals a regular rate and rhythm. Lungs are clear to auscultation bilaterally. Abdomen is soft, nontender, obese, with positive bowel sounds. She is able to flex and extend her bilateral knees and hips. Const Vital Signs: 07/10/24 17:56 07/10/24 18:56 07/10/24 19:00 Temperature 98.7 F Temperature Source Oral Pulse Rate 79 76 76 Respiratory Rate 18 12 12 Blood Pressure 84/68 L 127/94 H 127/94 H Blood Pressure Mean 73 105 105 Pulse Ox 96 95 95 Oxygen Delivery Method Room Air Room Air Room Air 07/10/24 20:00 07/10/24 21:00 07/10/24 22:00 Temperature Temperature Source Pulse Rate 75 74 73 Respiratory Rate 12 14 16 Blood Pressure 132/82 H 132/84 H 118/95 H Blood Pressure Mean 98 10 (more content not included)... Normal [facility] H AND P Exam - Hospitaliston 07-10-2024 H&P Exam - Hospitalist [facility] Medical Records Department [address] [place] [address] H P Exam - Hospitalist 07/10/24 2334 MR#: [id number] Acct: [id number] Name: MICHELINE FOX Rep #: [id number] : 1960 64 From: Eva Williamson DO PCP: Dr. Leticia Sylvester MD Status:ADM IN [facility] - General General Date of Admission: 07/11/24 Date of Service: 07/10/24 Chief Complaint: AMS with Fall in Yard. HPI Narrative MICHELINE FOX, is a 64 F with a past medical history of essential hypertension, hyperlipidemia, obesity; with BMI of 39 this admission, history of bariatric surgery, history of EtOH Abuse; with subsequent cirrhosis, chronic hepatitis C; s/p treatment (2016), history of CAD; with previous [facility] (2019), depression with anxiety; on eszopiclone and diazepam, chronic insomnia; on Zolpidem, history of appendectomy, history of cholecystectomy, history of hysterectomy, history of hernia repair x 2, OA; with history of lumbar spinal fusion and subsequent chronic pain and recent admission to a psychiatric facility in [place], [place] - where she subsequently signed herself out after 3 days who presents to [facility] ER complaining of altered mental status with fall in yard. Ms. Fox is not a fully-reliable historian at this time so information was gathered from chart, medical staff and computer. According to the records she was outside getting her mail when she lost her balance and fell in the grass. EMS was activated and they placed her in a C-collar. She denies LOC and she also denies current EtOH use. He daughter informed the ER physician that she does not think she is taking her medications as prescribed because she has not been acting like herself and her house is unkempt because she can no longer care for it or herself - so the family is seeking for ECF placement. Her daughter also reported a recent unintentional 40 pound weight gain but there is no report of fever, chills, nausea, vomiting, diarrhea, constipation, chest pain or SOB. In the ER she was noted to have laboratory evidence of severe hypokalemia of 2.7 mmol/L present on admission complicated by hyperbilirubinemia of 2.1 mg/dL present on admission with a UDS positive for benzodiazepines with suspected superimposed hepatic encephalopathy and she was then admitted to the PCU for ongoing care for a stay that is expected to extend beyond 2 midnights. [facility] Medical History Chest pain Atherosclerotic heart disease of [place] coronary artery without angina pectoris Hepatitis C Essential hypertension Home Medications ???Medication ???Instructions ???Recorded ???Last Taken ???Type atorvastatin 40 mg tablet 40 mg PO DAILY 07/10/24 Unknown History diazepam 10 mg tablet 10 mg PO QHS PRN PRN anxiety 07/10/24 Unknown History eszopiclone 2 mg tablet 2 mg PO QHS PRN PRN . 07/10/24 Unknown History hydrochlorothiazide 25 mg tablet 25 mg PO DAILY 07/10/24 Unknown History propranolol 40 mg tablet 60 mg PO TID 07/10/24 Unknown History sulfamethoxazole 800 1 tab PO BID 07/10/24 Unknown History mg-trimethoprim 160 mg tablet trazodone 100 mg tablet 100 mg PO DAILY 07/10/24 Unknown History venlafaxine 75 mg capsule,extended 75 mg PO DAILY 07/10/24 Unknown History release 24 hr zolpidem 10 mg tablet 10 mg PO QHS PRN PRN sleep 07/10/24 Unknown History Allergy/AdvReac Type Severity Reaction Status Date / Time codeine Allergy Unknown Verified 07/10/24 18:06 latex Allergy Hives Verified 07/10/24 18:06 Penicillins Allergy Unknown Verified 07/10/24 18:06 Family History Father CAD (coronary artery disease) Myocardial infarction History of coronary artery bypass surgery Grandmother Cardiac pacemaker in situ Surgical History History of left heart catheterization (LHC) ( 07/08/19) History of lumbar spinal fusion History of herniorrhaphy History of hysterectomy History of appendectomy History of cholecystectomy History of bariatric surgery Social History Smoking Status: Former smoker alcohol intake: current details: occasional substance use type: does not use caffeine: Yes Type: carbonated beverages Number of servings: 1 and coffee ROS ROS Narrative Full review of systems was not possible due to patient confusion. Vital Signs Vital Signs Vital Signs: 07/10/24 17:56 07/10/24 18:56 07/10/24 19:00 Temperature 98.7 F Temperature Source Oral Pulse Rate 79 76 76 Respiratory Rate 18 12 12 Blood Pressure 84/68 L 127/94 H 127/94 H Blood Pressure Mean 73 105 105 Pulse Ox 96 95 95 Oxygen Delivery Method Room Air Room Air (more content not included)... Normal [facility] Magnesiumon 07-10-2024 Magnesium [Mass/Vol] 2.3 mg/dL Normal 1.6-2.6 [facility] Comment on above: Performed By: #### L 501.9520, L503.5510, L506.0250 #### [facility] [address] [place], [address] Pelvis 1 or 2 Viewson 2023 Pelvis 1 or 2 Views [facility] Imaging Services [address] [place] [address] Pelvis 1 or 2 Views MR#: [id number] Acct: [id number] Name: MICHELINE FOX Rep #: [id number] : 1960 F 64 From: Adonay Pritchett PCP: Dr. Leticia Sylvester MD Status: REG ER Study: Pelvis 1 or 2 Views Date of Exam: 07/10/24 Exam# [id number] Ordering Dr: Chas Modi MD [id number] EXAM: XR PELVIS, 1 OR 2 VIEWS CLINICAL INDICATION: trauma TECHNIQUE: Frontal view of the pelvis. COMPARISON: No relevant prior studies available. FINDINGS: BONES/JOINTS: Unremarkable. No displaced fracture. No destructive or sclerotic lesions. Note that overlapping bowel shadows may however obscure fine detail. Sacroiliac joints are unremarkable. No widening of the pubic symphysis. The articular structures are unremarkable. SOFT TISSUES: Unremarkable. No soft tissue swelling or gas. RAD/Pelvis 1 or 2 Views IMPRESSION: No evidence of displaced pelvic fracture. Electronically Signed: Adonay West MD at 20:39 EDT , CC: Dr. Chas Modi MD; Dr. Leticia Sylvester MD Comic Book Designer: Signed Normal [facility] Spine Cervical without Contr ason 07-10-2024 Spine Cervical without Contras [facility] Imaging Services [address] [place] [id number] Spine Cervical without Contras MR#: [id number] Acct: [id number] Name: MICHELINE FOX Rep #: [id number] : 1960 F 64 From: Adonay Pritchett PCP: Dr. Leticia Sylvester MD Status: REG ER Study: Spine Cervical without Contras Date of Exam: Exam# [id number] Ordering Dr: Chas Modi MD [id number] STUDY: CT Spine Cervical W/O Contrast Injection 07/10/2024 8:57 PM REASON FOR EXAM: Female, 64 years old. NECK PAIN trauma HISTORY: NECK PAIN trauma TECHNIQUE: High resolution transaxial imaging was performed without intravenous administration of contrast material. Sagittal and coronal images were reconstructed. Individualized dose optimization techniques were used for this CT. COMPARISON: None FINDINGS: Normal craniovertebral junction. Normal anterior atlantoaxial articulation. Normal odontoid process. Normal cervical lordosis. Normal vertebral bodies and posterior osseous elements. C2-3: Normal endplates. Normal disc height and morphology. Normal central canal and intervertebral neuroforamina. C3-4: Loss of intervertebral disc height. There is endplate spondylosis of the vertebral body. Normal central canal and intervertebral neuroforamina. There is bilateral facet arthropathy. C4-5: Anterior fusion plate and fusion cage in place. Osseous fusion at this level. C5-6: Anterior fusion plate and fusion cage in place. Osseous fusion at this level. C6-7: Anterior fusion plate and fusion cage in place. Osseous fusion at this level. C7-T1: Loss of intervertebral disc height. There is endplate spondylosis of the vertebral body. Normal central canal and intervertebral neuroforamina. There is bilateral facet arthropathy. Normal visualized soft tissue structures. CT/Spine Cervical without Contras IMPRESSION: (NOT LISTED IN ORDER OF SIGNIFICANCE) Surgical fusion. Degenerative changes of the unfused vertebra. Electronically Signed: Adonay West MD at 20:59 EDT Reading Location ID and State: [facility] / [place] , Service support , CC: Dr. Chas Modi MD; Dr. Leticia Sylvester MD Comic Book Designer: Signed Normal [facility] Urinalysis, Completeon 07-10 BACTERIA 1+ /hpf Normal None Seen [facility] Comment on above: Order Comment: COLLE CTOR TO SPECIFY Performed By: #### L 400.0001 #### [facility] [address] [place], [place], [id number] EPI,SQUAMOUS 0-5 SEEN Normal 5-10 [facility] Comment on above: Order Comment: COLLE CTOR TO SPECIFY Performed By: #### L 400.0001 #### [facility] [address] [place], [place], [address] WBC 0-5 SEEN Normal 0-5 [facility] Comment on above: Order Comment: COLLE CTOR TO SPECIFY Performed By: #### L 400.0001 #### [facility] [address] [place], [address] AMORPHOUS 2+ Normal [facility] Comment on above: Order Comment: ANGLE CTOR TO SPECIFY Performed By: #### L 400.0001 #### [facility] [address] [place], [address] Mucus Ql (Urine sed) 0 SEEN Normal [facility] Comment on above: Order Comment: ANGLE CTOR TO SPECIFY Performed By: #### L 400.0001 #### [facility] [address] [place], [address] RBC 0 SEEN Normal 0-5 [facility] Comment on above: Order Comment: ANGLE CTOR TO SPECIFY Performed By: #### L 400.0001 #### [facility] [address] [place], [address] Urine Drug Screen (VISTA)on 07-10-2024 AMPHETAMINES Negative Normal <1000 ng/mL [facility] Comment on above: Performed By: #### L 501.9520, L503.5510, L506.0250 #### [facility] [address] [place], [address] BARBITIURATES Negative Normal < 200 ng/mL [facility] Comment on above: Performed By: #### L 501.9520, L503.5510, L506.0250 #### [facility] [address] [place], [address] BENZODIAZIPINE Positive Abnormal < 200 ng/mL [facility] Comment on above: Performed By: #### L 501.9520, L503.5510, L506.0250 #### [facility] [address] [place], [address] COCAINE Negative Normal < 300 ng/mL [facility] Comment on above: Performed By: #### L 501.9520, L503.5510, L506.0250 #### [facility] [address] [place], [address] ECSTACY Negative Normal < 500 ng/mL [facility] Comment on above: Performed By: #### L 501.9520, L503.5510, L506.0250 #### [facility] [address] [place], [address] METHADONE Negative Normal < 300 ng/mL [facility] Comment on above: Performed By: #### L 501.9520, L503.5510, L506.0250 #### [facility] [address] [place], [address] OPIATES Negative Normal < 300 ng/mL [facility] Comment on above: Performed By: #### L 501.9520, L503.5510, L506.0250 #### [facility] [address] [place], [address] PCP Negative Normal < 25 ng/mL [facility] Comment on above: Performed By: #### L 501.9520, L503.5510, L506.0250 #### [facility] [address] [place], [address] THC Negative Normal < 50 ng/mL [facility] Comment on above: Performed By: #### L 501.9520, L503.5510, L506.0250 #### [facility] [address] [place], [address] VISTA UDS PH 7 Normal [facility] Comment on above: Performed By: #### L 501.9520, L503.5510, L506.0250 #### [facility] [address] [place], [address] AMMONIAon 06-24-2024 AMMONIA 26 micromol/L Normal 12-47 [facility] Comment on above: Performed By: #### 4 5060 #### LAB [address] [place], [place] [address] Ramakrishna Browne M.D. [id number] BASIC METABOLIC PANELon 10-0 Anion gap [Moles/Vol] 16 mmol/L Normal 10-20 [facility] Comment on above: Order Comment: [facility] Laboratory Services has implemented the eGFR calculation approach that does not have a coefficient for race that conforms to the NKF-ASN Task Force Recommendations. Performed By: #### 4 6124 #### LAB [address] [place] [address] Ramakrishna Browne M.D. [id number] Calcium [Mass/Vol] 9.0 mg/dL Normal 8.4-10.2 [facility] Comment on above: Order Comment: [facility] Laboratory [facility] has implemented the eGFR calculation approach that does not have a coefficient for race that conforms to the NKF-ASN Task Force Recommendations. Performed By: #### 4 6124 #### LAB [address] [place] [address] Ramakrishna Browne M.D. [id number] Chloride [Moles/Vol] 97 mmol/L Low 98-108 [facility] Comment on above: Order Comment: [facility] Laboratory [facility] has implemented the eGFR calculation approach that does not have a coefficient for race that conforms to the NKF-ASN Task Force Recommendations. Performed By: #### 4 6124 #### LAB [address] [place] [address] Ramakrishna Browne M.D. [id number] Creatinine [Mass/Vol] 1.09 mg/dL Normal 0.60-1.10 [facility] Comment on above: Order Comment: [facility] Laboratory [facility] has implemented the eGFR calculation approach that does not have a coefficient for race that conforms to the NKF-ASN Task Force Recommendations. Performed By: #### 4 6124 #### [facility] [address] [place] [address] Ramakrishna Browne M.D. [id number] EGFR 57 mL/min/1.73 m2 Low >=60 [facility] Comment on above: Order Comment: [facility] Laboratory [facility] has implemented the eGFR calculation approach that does not have a coefficient for race that conforms to the NKF-ASN Task Force Recommendations. Result Comment: Talisha mated GFR was calculated using the 2020 CKD-EPI creatinine equation. Performed By: #### 4 6193 #### LAB [address] [place] [address] Ramakrishna Browne M.D. [id number] Glucose [Mass/Vol] 106 mg/dL High 65-99 [facility] Comment on above: Order Comment: [facility] Services has implemented the eGFR calculation approach that does not have a coefficient for race that conforms to the NKF-ASN Task Force Recommendations. Performed By: #### 4 6173 #### LAB [address] [place] [address] Ramakrishna Browne M.D. [id number] HCO3 (Bld) [Moles/Vol] 28 mmol/L Normal 21-[address] [facility] Comment on above: Order Comment: [facility] Laboratory [facility] has implemented the eGFR calculation approach that does not have a coefficient for race that conforms to the NKF-ASN Task Force Recommendations. Performed By: #### 4 6143 #### LAB [address] [place] [address] Ramakrishna Browne M.D. [id number] Potassium [Moles/Vol] 3.0 mmol/L Low 3.5-5.1 [facility] Comment on above: Order Comment: [facility] Laboratory [facility] has implemented the eGFR calculation approach that does not have a coefficient for race that conforms to the NKF-ASN Task Force Recommendations. Performed By: #### 4 6187 #### [facility] [address] [place] [address] Ramakrishna Browne M.D. [id number] Sodium [Moles/Vol] 138 mmol/L Normal 135-145 [facility] Comment on above: Order Comment: [facility] has implemented the eGFR calculation approach that does not have a coefficient for race that conforms to the NKF-ASN Task Force Recommendations. Performed By: #### 4 6119 #### LAB [address] [place] [address] Ramakrishna Browne M.D. [id number] Urea nitrogen [Mass/Vol] 15 mg/dL Normal 8-25 [facility] Comment on above: Order Comment: [facility] Services has implemented the eGFR calculation approach that does not have a coefficient for race that conforms to the NKF-ASN Task Force Recommendations. Performed By: #### 4 6124 #### [facility] [address] [place] [address] Ramakrishna Browne M.D. [id number] Urea nitrogen/Creatinine [Mass ratio] 13.8 mg/mg Normal 10.0-20.0 [facility] Comment on above: Order Comment: [facility] Services has implemented the eGFR calculation approach that does not have a coefficient for race that conforms to the NKF-ASN Task Force Recommendations. Performed By: #### 4 6124 #### LAB [address] [place] [address] Ramakrishna Browne M.D. [id number] CBC WITH AUTO DIFFERENTIALon 06-24-2024 AUTO NRBC 0.0 % [facility] Comment on above: Performed By: #### L [id number] #### [facility] [address] [place] [address] Ramakrishna Browne M.D. [id number] AUTO NRBC ABS COUNT 0.00 K/mcL Normal 0.00-0.00 [facility] Comment on above: Performed By: #### L [id number] #### [facility] [address] [place] [address] Ramakrishna Browne M.D. [id number] BASOPHILS ABSOLUTE COUNT 0.02 K/mcL Normal 0.00-0.30 [facility] Comment on above: Performed By: #### L [id number] #### [facility] [address] [place] [address] Ramakrishna Browne M.D. [id number] Basophils/100 WBC (Bld) 0.4 % Normal [facility] Comment on above: Performed By: #### L [id number] #### [facility] [address] [place] [address] Ramakrishna Browne M.D. [id number] Eosinophils (Bld) [#/Vol] 0.10 10*3/uL Normal 0.00-0.50 [facility] Comment on above: Performed By: #### L [id number] #### LAB [address] [place] [address] Ramakrishna Browne M.D. [id number] Eosinophils/100 WBC (Bld) 2.1 % Normal [facility] Comment on above: Performed By: #### L [id number] #### [facility] [address] [place] [address] Ramakrishna Browne M.D. [id number] Erythrocyte distribution width (RBC) [Ratio] 16.1 % High 11.6-14.8 [facility] Comment on above: Performed By: #### L [id number] #### LAB [address] [place] [address] Ramakrishna Browne M.D. [id number] Hematocrit (Bld) [Volume fraction] 39.9 % Normal 36.0-46.0 [facility] Comment on above: Performed By: #### L [id number] #### LAB [address] [place] [address] Ramakrishna Browne M.D. [id number] Hemoglobin (Bld) [Mass/Vol] 14.0 g/dL Normal 12.0-16.0 [facility] Comment on above: Performed By: #### L [id number] #### LAB [address] [place] [address] Ramakrishna Browne M.D. [id number] IG ABSOLUTE 0.02 K/mcL Normal 0.00-0.30 [facility] Comment on above: Performed By: #### L [id number] #### LAB [address] [place] [address] Ramakrishna Browne M.D. [id number] IG PERCENT 0.40 % Normal [facility] Comment on above: Result Comment: The IG parameter is the percentage of metamyelocytes, myelocytes and promyelocytes. An immature granulocyte count (IG) of 1% or more suggests the possibility of infection, an IG count of 3% is very likely related to an infection. Performed By: #### L [id number] #### LAB [address] [place] [address] Ramakrishna Browne M.D. [id number] Lymphocytes (Bld) [#/Vol] 0.95 10*3/uL Normal 0.90-4.00 [facility] Comment on above: Performed By: #### L [id number] #### LAB [address] [place] [address] Ramakrishna Browne M.D. [id number] Lymphocytes/100 WBC (Bld) 20.1 % Normal [facility] Comment on above: Performed By: #### L [id number] #### LAB [address] [place] [address] Ramakrishna Browne M.D. [id number] MCH (RBC) [Entitic mass] 32.2 pg Normal 26.0-34.0 [facility] Comment on above: Performed By: #### L [id number] #### LAB [address] [place] [address] Ramakrishna Browne M.D. [id number] MCV (RBC) [Entitic vol] 91.7 fL Normal 80.0-100.0 [facility] Comment on above: Performed By: #### L [id number] #### LAB [address] [place] [address] Ramakrishna Browne M.D. [id number] MEAN CORPUSCULAR HEMOGLOBIN CONC 35.1 g/dL Normal 31.0-37.0 [facility] Comment on above: Performed By: #### L [id number] #### LAB [address] [place] [address] Ramakrishna Browne M.D. [id number] Monocytes (Bld) [#/Vol] 0.21 10*3/uL Low 0.30-0.90 [facility] [facility] Comment on above: Performed By: #### L [id number] #### LAB [address] [place] [address] Ramakrishna Browne M.D. [id number] Monocytes/100 WBC (Bld) 4.4 % Normal [facility] Comment on above: Performed By: #### L [id number] #### LAB [address] [address] Ramakrishna Browne M.D. [id number] NEUTROPHILS ABSOLUTE COUNT 3.42 K/mcL Normal 1.70-7.00 [facility] Comment on above: Performed By: #### L [id number] #### MH LAB [address] [address] Ramakrishna Browne M.D. [id number] Neutrophils/100 WBC (Bld) 72.6 % Normal [facility] Comment on above: Performed By: #### L [id number] #### LAB [address] [address] Ramakrishna Browne M.D. [id number] Platelet mean volume (Bld) [Entitic vol] 13.0 fL High 9.4-12.4 [facility] Comment on above: Performed By: #### L [id number] #### MH LAB [address] [address] Ramakrishna Browne M.D. [id number] Platelets (Bld) [#/Vol] 107 10*3/uL Low 150-400 [facility] Comment on above: Performed By: #### L [id number] #### MH LAB [address] [address] Ramakrishna Browne M.D. [id number] RBC (Bld) [#/Vol] 4.35 10*6/uL Normal 4.00-5.20 [facility] Comment on above: Performed By: #### L [id number] #### MH LAB [address] [address] Ramakrishna Browne M.D. [id number] WBC (Bld) [#/Vol] 4.72 10*3/uL Normal 4.50-11.00 [facility] Comment on above: Performed By: #### L [id number] #### MH LAB [address] [place], [place] [address] Ramakrishna Browne M.D. [id number] COVID-19/INFLUENZA A,B MOLEC ULARon 06-24-2024 SARS-CoV-2 (COVID-19) Ab IA Ql SARS-COV-2 (CRISTAL) Not Detected INFLUENZA A (CRISTAL) Not Detected INFLUENZA B (CRISTAL) Not Detected Normal Not Detected [facility] Comment on above: Performed By: #### L [id number] #### LAB [address] [place], [place] [address] Ramakrishna Browne M.D. [id number] CT CERVICAL SPINE WITHOUT CO NTRASTon 06-24-2024 [...] the cerebral sulci and ventricular system. Stable jqyd-jg-aukejwro background of nonspecific white matter disease. No hydrocephalus. There are dystrophic calcifications associated with the interhemispheric falx. There is a dural based calcification along the high left posterior frontal lobe which is unchanged from prior measuring up to 6.7 x 10.3 mm in the coronal plane, likely maintenance representative of a calcified meningioma. No abnormal [...] level. Align (more content not included)... Normal [facility] Comment on above: Order Comment: Injur [...] the cerebral sulci and ventricular system. Stable znac-rs-kbfxllyz background of nonspecific white matter disease. No hydrocephalus. There are dystrophic calcifications associated with the interhemispheric falx. There is a dural based calcification along the high left posterior frontal lobe which is unchanged from prior measuring up to 6.7 x 10.3 mm in the coronal plane, likely maintenance representative of a calcified meningioma. No abnormal [...] level. Align (more content not included)... Normal [facility] Comment on above: Order Comment: Injur y/Trauma or Illness?:Injury/Trauma How long have you had these symptoms (acute/chronic)?:Acute Reason for exam?:Patient states she became dizzy and fell Type of Exam?:Initial Mechanism of injury?:. ED Prov Noteon 06-24-2024 ED Prov Note [facility] ED Attending Note: NAME: Micheline Fox 64 y.o. CSN: [id number] PCP: Leticia Sylvester MD History: Chief Complaint: [...] Procedure: COLONOSCOPY; Surgeon: Joe Colón MD; Location: [facility]; Service: Gastroenterology EGD N/A 07/29/2019 Procedure: ESOPHAGOGASTRODUODENOS COPY; Surgeon: Joe Colón MD; Location: [facility] Endo; Service: Gastroenterology ESOPHAGOGASTRODUODENOS COPY 11/13/2020 Isael K Isabel-OSLeandra GASTRIC BYPASS 1996 HC LEFT HEART CATH N/A 07/08/2019 Procedure: Left Heart Cath; Surgeon: Hari Acosta MD; Location: [facility]; Service: Cardiovascular HEEL SPUR RESECTION Right 11/14/2020 Procedure: EXCISION HEEL SPUR RIGHT FOOT C-ARM; Surgeon: Digna Reagan DPM; Location: Main OR; Service: Podiatry HERNIA REPAIR 07/16/2016 Jake Hurtado-OSLeandra HYSTERECTOMY 1988 NECK SURGERY 2000 C 4-5 TONSILLECTOMY FAM. Hx: Family History [...] Current packs/day: 0.00 Types: Cigarettes Quit date: 2018 Years since quittin.7 Smokeless tobacco: Never Tobacco comments: quit 4 years ago Vaping Use Vaping status: Never Used Substance and Sexual Activity Alcohol use: Yes Alcohol/week: 5.0 standard drinks of alcohol Types: 5 Cans of beer per week Comment: LAST DRINK WAS 192904/30/23 [employer] Drug use: Never Social Determinants of Health Financial Resource Strain: High Risk (08/06/2022) Received from [facility] [employer] Overall Financial Resource Strain (CARDIA) Difficulty of Paying Living Expenses: Hard Food Insecurity: Food Insecurity Present (08/06/2022) Received from [employer] Hunger Vital Sign Worried About Running Out of Food in the Last Year: Sometimes true Ran Out of Food in the Last Year: Sometimes true Transportation Needs: Unmet Transportation Needs (01/28/2024) Received from [facility] - Transportation Lack of Transportation (Medical): Yes Lack of Transportation (Non-Medical): Yes Physical Activity: Inactive (08/06/2022) Received from [employer] Exercise Vital Sign Days of Exercise per Week: 0 days Minutes of Exercise per Session: 0 min Stress: Stress Concern Present (08/06/2022) Received from [facility] [place] [facility] [employer] [facility] - Occupational Stress Questionnaire Feeling of Stress : Very much Social Connections: Moderately Isolated (08/06/2022) Received from [employer] Social Connection and Isolation Panel [NHANES] Frequency of Communication with Friends and Family: Twice a week Frequency of Social Gatherings with Friends and Family: Once a week Attends Rastafarian Services: Never Active Member of Clubs or Organizations: No Attends Club or Organization Meetings: 1 to 4 times per year Marital Status: Housing Stability: Low Risk (08/06/2022) Received from [facility], [facility] Housing Stability Vital Sign Unable to Pay [...] mg table (more content not included)... Normal [facility] HEPATIC FUNCTION PANELon Albumin [Mass/Vol] 4.0 g/dL Normal 3.2-5.2 [facility] Comment on above: Performed By: #### 4 5866 #### MH LAB [address] [address] Ramakrishna Browne M.D. [id number] ALP [Catalytic activity/Vol] 79 U/L Normal 40-150 [facility] Comment on above: Performed By: #### 4 5866 #### MH LAB [address] [address] Ramakrishna Browne M.D. [id number] ALT [Catalytic activity/Vol] 32 U/L Normal 0-35 U/L [facility] Comment on above: Performed By: #### 4 5886 #### MH LAB [address] [place], [place] [address] Ramakrishna Browne M.D. [id number] AST [Catalytic activity/Vol] 46 U/L High 0-35 U/L [facility] Comment on above: Performed By: #### 4 5866 #### LAB [address] [id number] Ramakrishna Browne M.D. [id number] Bilirubin [Mass/Vol] 1.4 mg/dL High 0.0-1.3 [facility] Comment on above: Performed By: #### 4 5866 #### LAB [address] [address] Ramakrishna Browne M.D. [id number] Bilirubin.indirect [Mass/Vol] 0.5 mg/dL High 0.0-0.4 [facility] Comment on above: Performed By: #### 4 5866 #### LAB [address] [address] Ramakrishna Browne M.D. [id number] Protein [Mass/Vol] 6.1 g/dL Normal 6.0-8.0 [facility] Comment on above: Performed By: #### 4 5866 #### LAB [address] [id number] Ramakrishna Browne M.D. [id number] URINALYSISon 06-24-2024 BACTERIA, URINE None Seen Normal None Seen [facility] Comment on above: Order Comment: Micro [...] 4 6625 #### LAB [address] [address] Ramakrishna Browne M.D. [id number] BILIRUBIN, URINE Positive Abnormal Negative [facility] Comment on above: Order Comment: Micro [...] 4 6625 #### LAB [address] [address] Ramakrishna Browne M.D. [id number] BLOOD, URINE Negative Normal Negative [facility] Comment on above: Order Comment: Micro [...] 4 6625 #### LAB [address] [address] Ramakrishna Browne M.D. [id number] Clarity (U) Clear Normal Clear [facility] Comment on above: Order Comment: Micro [...] 4 6625 #### LAB [address] [address] Ramakrishna Browne M.D. [id number] Color (U) Gloria Abnormal Colorless, Yellow [facility] Comment on above: Order Comment: Micro [...] 4 6625 #### LAB [address] [address] Ramakrishna Browne M.D. [id number] Glucose Ql (U) Negative Normal Negative [facility] Comment on above: Order Comment: Micro [...] 4 6625 #### LAB [address] [address] Ramakrishna Browne M.D. [id number] Hyaline casts LM Ql (Urine sed) 3-5 Abnormal 0-2 [facility] Comment on above: Order Comment: Micro scopic examination is performed on all urinalysis samples and only positive findings are reported. The test for blood on the chemical analytic portion of urinalysis may also be positive due to hemoglobinuria and myoglobinuria and if red blood cells are present they are quantified by microscopic examination. Performed By: #### 4 6625 #### LAB [address] [place] [address] Ramakrishna Browne M.D. [id number] Ketones Ql (U) Negative Normal Negative [facility] Comment on above: Order Comment: Micro scopic examination is performed on all urinalysis samples and only positive findings are reported. The test for blood on the chemical analytic portion of urinalysis may also be positive due to hemoglobinuria and myoglobinuria and if red blood cells are present they are quantified by microscopic examination. Performed By: #### 4 6625 #### LAB [address] [place] [address] Ramakrishna Browne M.D. [id number] Leukocyte esterase Test strip Ql (U) Small Abnormal Negative [facility] Comment on above: Order Comment: Micro scopic examination is performed on all urinalysis samples and only positive findings are reported. The test for blood on the chemical analytic portion of urinalysis may also be positive due to hemoglobinuria and myoglobinuria and if red blood cells are present they are quantified by microscopic examination. Performed By: #### 4 6625 #### LAB [address] [place] [address] Ramakrishna Browne M.D. [id number] NITRITE, URINE Positive Abnormal Negative [facility] Comment on above: Order Comment: Micro [...] 4 6625 #### LAB [address] [address] Ramakrishna Browne M.D. [id number] pH (U) 7.0 [pH] Normal 5.0-7.0 [facility] Comment on above: Order Comment: Micro scopic examination is performed on all urinalysis samples and only positive findings are reported. The test for blood on the chemical analytic portion of urinalysis may also be positive due to hemoglobinuria and myoglobinuria and if red blood cells are present they are quantified by microscopic examination. Performed By: #### 4 6625 #### LAB [address] [place] [address] Ramakrishna Browne M.D. [id number] PROTEIN, URINE Negative Normal Negative [facility] Comment on above: Order Comment: Micro [...] 4 6625 #### LAB [address] [address] Ramakrishna Browne M.D. [id number] RBC LM.HPF (Urine sed) [#/Area] 2 /[HPF] Normal 0-3 [facility] Comment on above: Order Comment: Micro [...] 4 6625 #### LAB [address] [address] Ramakrishna Browne M.D. [id number] Specific gravity (U) [Rel density] 1.023 Normal 1.005-1.025 [facility] Comment on above: Order Comment: Micro scopic examination is performed on all urinalysis samples and only positive findings are reported. The test for blood on the chemical analytic portion of urinalysis may also be positive due to hemoglobinuria and myoglobinuria and if red blood cells are present they are quantified by microscopic examination. Performed By: #### 4 6625 #### LAB [address] [place] [address] Ramakrishna Browne M.D. [id number] SQUAMOUS EPITHELIAL 5 /hpf High 0-4 [facility] Comment on above: Order Comment: Micro scopic examination is performed on all urinalysis samples and only positive findings are reported. The test for blood on the chemical analytic portion of urinalysis may also be positive due to hemoglobinuria and myoglobinuria and if red blood cells are present they are quantified by microscopic examination. Performed By: #### 4 6625 #### LAB [address] [place] [address] Ramakrishna Browne M.D. [id number] UROBILINOGEN, URINE >=4.0 Abnormal <2.0 [facility] Comment on above: Order Comment: Micro scopic examination is performed on all urinalysis samples and only positive findings are reported. The test for blood on the chemical analytic portion of urinalysis may also be positive due to hemoglobinuria and myoglobinuria and if red blood cells are present they are quantified by microscopic examination. Performed By: #### 4 6625 #### LAB [address] [place] [address] Ramakrishna Browne M.D. [id number] WBC LM.HPF (Urine sed) [#/Area] 17 /[HPF] High 0-5 [facility] Comment on above: Order Comment: Micro scopic examination is performed on all urinalysis samples and only positive findings are reported. The test for blood on the chemical analytic portion of urinalysis may also be positive due to hemoglobinuria and myoglobinuria and if red blood cells are present they are quantified by microscopic examination. Performed By: #### 4 6634 #### LAB [address] [place], [place] [address] Ramakrishna Browne M.D. [id number] URINE AEROBIC CULTUREon URINE AEROBIC CULTURE URINE CULTURE > 10,000 CFU/mL mixture of normal urogenital microbiota [facility] Comment on above: Performed By: #### L [id number] #### MH LAB [address] [place], [place] [address] Ramakrishna Browne M.D. [id number] XR HIPS BILATERAL WITH PELVI S 5+ [...] IMPRESSION: No acute fracture or traumatic malalignment. [facility] Workstation ID: [id number] Dictated by: JIMMIE HELTON on ThuJun 24, 2024 11:34:47 AM EDT Transcribed by: NIDA HARRY on ThuJun 24, 2024 12:10:34 PM EDT Finalized by: JIMMIE HELTON on ThuJun 24, 2024 9:49:50 PM EDT [facility] Comment on above: Order Comment: Injur y/Trauma or Illness?:Injury/TraumaHow long have you had these symptoms (acute/chronic)?:AcuteReason for exam?:bilateral hip pain from fallHistory of cancer?:unknownSurgeries, chemotherapy, or radiation?:unknownType of Exam?:InitialMechanism of injury?:fall Basic metabolic 2000 panelon 02-26-2024 Anion gap [Moles/Vol] 11 mmol/L Normal 10-20 [facility] Comment on above: Performed By: #### 2 4321-2 #### MALIN TONY ([id number]) [facility] ([facility]) [address] [place] [address] Calcium [Mass/Vol] 8.8 mg/dL Normal 8.6-10.3 [facility] Comment on above: Performed By: #### 2 4321-2 #### KIMO JIMENEZ ([id number]) [facility] ([facility]) [address] [place] [address] Chloride [Moles/Vol] 104 mmol/L Normal 98-107 [facility] Comment on above: Performed By: #### 2 4321-2 #### KIMO JIMENEZ ([id number]) [facility] ([facility]) [address] [place] [address] 07084 CO2 [Moles/Vol] 29 mmol/L Normal 21-32 [facility] Comment on above: Performed By: #### 2 4321-2 #### KIMO JIMENEZ ([id number]) [facility] ([facility]) [address] [place] [address] Creatinine [Mass/Vol] 1.01 mg/dL Normal 0.50-1.05 [facility] Comment on above: Performed By: #### 2 4321-2 #### KIMO JIMENEZ ([id number]) [facility] ([facility]) [address] [place] [address]4834 Glomerular filtration rate/1.73 sq M.predicted 63 mL/min/1.73m*2 Normal >60 [facility] Comment on above: Result Comment: Calc ulations of estimated GFR are performed using the 2020 CKD-EPI Study Refit equation without the race variable for the IDMS-Traceable creatinine methods. https://jasn.asnjournals.org/content/early//ASN.2020 301306 Performed By: #### 2 4321-2 #### KIMO JIMENEZ ([id number]) [facility] ([facility]) [address] [place] [address] Glucose [Mass/Vol] 120 mg/dL High 74-99 [facility] Comment on above: Performed By: #### 2 4321-2 #### KIMO JIMENEZ ([id number]) [facility] ([facility]) [address] [place] [address] Potassium [Moles/Vol] 3.8 mmol/L Normal 3.5-5.3 [facility] Comment on above: Performed By: #### 2 4321-2 #### KIMO JIMENEZ ([id number]) [facility] ([facility]) [facility] [place] [address] Sodium [Moles/Vol] 140 mmol/L Normal 136-145 [facility] Comment on above: Performed By: #### 2 4321-2 #### KIMO JIMENEZ ([id number]) [facility] ([facility]) [address] [place] [address]116 Urea nitrogen [Mass/Vol] 14 mg/dL Normal 6-23 [facility] Comment on above: Performed By: #### 2 4321-2 #### KIOM JIMENEZ ([id number]) [facility] ([facility]) [address] [place] [address] Calcidiolon 02-26-2024 25-hydroxyvitamin D3 [Mass/Vol] 23 ng/mL Low 30-100 [facility] Comment on above: Order Comment: Defic iency: < 20 ng/ml Insufficiency: 20-29 ng/ml Sufficiency: 30-100 ng/ml This assay accurately quantifies the sum of Vitamin D3, 25-Hydroxy and Vitamin D2,25-Hydroxy. Performed By: #### 1 989-3 #### KIMO JIMENEZ ([id number]) [facility] ([facility]) [address] [place], [place] [id number] HbA1c (Bld) [Mass fraction]o n 02-26-2024 Average glucose Estimated from glycated hemoglobin (Bld) [Mass/Vol] 77 mg/dL Normal Not Established [facility] Comment on above: Order Comment: Diagn osis of Diabetes-Adults Non-Diabetic: < or = 5.6% Increased risk for developing diabetes: 5.7-6.4% Diagnostic of diabetes: > or = 6.5% Monitoring of Diabetes Age (y)....................... Therapeutic Goal (%) Adults: >18.........................<7.0 Pediatrics: 13-18...................<7.5 Pediatrics: 7-12....................<8.0 Pediatrics: 0-6..................... 7.5-8.5 [employer] [employer]. Diabetes Care 33(S1)Sep 2009 Performed By: #### 4 548-4 #### KIMO JIMENEZ ([id number]) [facility] ([facility]) [address] [place] [address] Hemoglobin A1c/Hemoglobin.to jane 02-26-2024 HbA1c (Bld) [Mass fraction] 4.3 % Normal see below [facility] Comment on above: Order Comment: Diagn osis of Diabetes-Adults Non-Diabetic: < or = 5.6% Increased risk for developing diabetes: 5.7-6.4% Diagnostic of diabetes: > or = 6.5% Monitoring of Diabetes Age (y)....................... Therapeutic Goal (%) Adults: >18.........................<7.0 Pediatrics: 13-18...................<7.5 Pediatrics: 7-12....................<8.0 Pediatrics: 0-6..................... 7.5-8.5 [employer]. Diabetes Care 33(S1), Sep 2009 Performed By: #### 4 548-4 #### KIMO JIMENEZ ([id number]) [facility] ([facility]) [address] [place] [address] LIVER ELASTOGRAPHYon 024 Jaime Holt APRN-CNP 02/19/2024 2:34 PM Velocity Controlled Transient Elastography (Fibroscan) Sheather: Nikhil Lawson Attending: Jaime Holt APRN-CNP Patient was identified via name and . Micheline FOX presents to endoscopy suite for VCTE. Referring Provider: HEATHER Johnson Diagnosis: Hepatic cirrhosis, unspecified hepatic cirrhosis type (HCC) (Primary Diagnosis) [[id number]] Fatty liver Two Pt identifiers where confirmed. [...] refer patient to hepatology. Interpreting Provider: Jaime Holt APRN-CNP [facility] Procedureson 02-19-2024 [employer] Authentication Interface Message Text Velocity Controlled Transient Elastography (Fibroscan) Sheather: Nikhil Lawson Attending: Jaime Holt APRN-CNP Patient was identified via name and . Micheline FOX presents to endoscopy suite for VCTE. Referring Provider: HEATHER Johnson Diagnosis: Hepatic cirrhosis, unspecified hepatic cirrhosis type (HCC) (Primary Diagnosis) [[id number]] Fatty liver Two Pt identifiers where confirmed. [...] refer patient to hepatology. Interpreting Provider: Jaime Holt APRN-ORTIZ Invalid Interpretation Code [facility] US Abdomen RUQon 02-19-2024 EXAMINATION: US LIVER/GALL BLADDER/PANCREAS 02/19/2024 11:15 AM CLINICAL HISTORY: HCC screen ASSOCIATED DIAGNOSIS: Hepatic cirrhosis, unspecified hepatic cirrhosis type, unspecified whether ascites present (HCC) ORDERING PROVIDER: JAIME HOLT COMPARISON: CT ABDOMEN/PELVIS W/ CONTRAST 2022, 4:15 [...] whether ascites present (HCC) ORDERING PROVIDER: JAIME HOLT COMPARISON: CT ABDOMEN/PELVIS W/ CONTRAST 2022, 4:15 [...] a focal suspicious hepatic lesion. MACRO: None [facility] Radiology Study observation (narrative) [facility] US Abdomen RUQOrdered By: Shawanda Kelly on 02-19-2024 [facility] Work Phone: US LIVER/GALL BLADDER/PANCRE ASon 02-19-2024 US LIVER/GALL BLADDER/PANCREAS EXAMINATION: US LIVER/GALL BLADDER/PANCREAS 02/19/2024 11:15 AM CLINICAL HISTORY: HCC screen ASSOCIATED DIAGNOSIS: Hepatic cirrhosis, unspecified hepatic cirrhosis type, unspecified whether ascites present (HCC) ORDERING PROVIDER: JAIME HOLT COMPARISON: CT ABDOMEN/PELVIS W/ CONTRAST 2022, 4:15 [...] suspicious hepatic lesion. MACRO: None Normal [facility] ALPHA FETOPROTEIN TUMOR ALMA Oswald 01-27-2024 AFP 3.6 ng/mL Normal <=9.0 [facility] Comment on above: Order Comment: The [employer] DxI Alpha-Fetoprotein (AFP) assay is a [...] Performed By: #### A FP TM #### [facility] [address] [place] [address], BASIC METABOLIC PANELon Anion gap [Moles/Vol] 16 mmol/L Normal 10-20 [facility] Comment on above: Performed By: #### C H8, HEPATIC ####[facility] [id number] [place], [place], Calcium [Mass/Vol] 9.5 mg/dL Normal 8.6-10.3 [facility] Comment on above: Performed By: #### C H8, HEPATIC ####[facility] [id number] [place], [place], Chloride [Moles/Vol] 101 mmol/L Normal 98-107 [facility] Comment on above: Performed By: #### C H8, HEPATIC ####[facility] [id number] [place], [place], CO2 [Moles/Vol] 26 mmol/L Normal 21-31 [facility] Comment on above: Performed By: #### C H8, HEPATIC ####[facility] [id number] [place], [place], Creatinine [Mass/Vol] 1.11 mg/dL Normal 0.60-1.20 [facility] Comment on above: Performed By: #### C H8, HEPATIC ####[facility] [id number] [place], [place], ESTIMATED GFR (CKD-EPI) 56 mL/min/1.73sqm Low >=60 [facility] Comment on above: Result Comment: 2020 [...] Inclusion of Race in Diagnosing Kidney Disease. [place] Journal of Kidney Diseases 2021;79(2):268-88.e1. 2. N Engl J Med 2020 Vol. 385 Issue 19 Pages 5692-4162 Performed By: #### C H8, HEPATIC ####[facility] [id number] [place], [place], Glucose [Mass/Vol] 115 mg/dL High 74-109 [facility] Comment on above: Performed By: #### C H8, HEPATIC ####[facility] [id number] [place], [place], Potassium [Moles/Vol] 4.0 mmol/L Normal 3.5-5.0 [facility] Comment on above: Performed By: #### C H8, HEPATIC ####[facility] [id number] [place], [place], Sodium [Moles/Vol] 139 mmol/L Normal 136-145 [facility] Comment on above: Performed By: #### C H8, HEPATIC ####[facility] [id number] [place], [place], Urea nitrogen [Mass/Vol] 25 mg/dL Normal 7-25 [facility] Comment on above: Performed By: #### C H8, HEPATIC ####[facility] [id number] [place], [place], Basic metabolic 2000 panelon 01-27-2024 Anion gap [Moles/Vol] 16 mmol/L 10 - 20 [facility] Calcium [Mass/Vol] 9.5 mg/dL 8.6 - 10. [...] clinical presentation. Reference: 1. Marco A C, aMrcy M, Nelida DC, et al.. A Unifying Approach for GFR Estimation: Recommendations of the NKF-ASN Task Force on Reassessing the Inclusion of Race in Diagnosing Kidney Disease. Somali Journal of Kidney Diseases 202;79(2):268-88.e1. 2. N Engl J Med 1 Vol. 385 Issue 19 Pages 8198-1239 Glucose [Mass/Vol] 115 mg/dL High 74 - [...] [Mass/Vol] 33.1 g/dL 32.0 - 35.9 g/dL [facility] MCV (RBC) [Entitic vol] 95 fL 80 - 100 [facility]L [facility] Platelet mean volume (Bld) [Entitic vol] 10.8 fL 7.5 - 11.2 fL [facility] Platelets (Bld) [#/Vol] 177 10*3/uL 150 - 400 K/uL [facility] RBC (Bld) [#/Vol] 4.40 10*6/uL [facility] WBC (Bld) [#/Vol] 6.9 10*3/uL 4.5 - 11.5 K/uL [facility] COMPLETE BLOOD COUNTon 01-26 Erythrocyte distribution width (RBC) [Ratio] 14.7 % High 11.5-14.5 The [facility] System Comment on above: Performed By: #### C BC #### [facility] [address] [place] [address], Hematocrit (Bld) [Volume fraction] 41.9 % Normal 36.0-46.0 The [facility] System Comment on above: Performed By: #### C BC #### [facility] [address] [place] [address], Hemoglobin (Bld) [Mass/Vol] 13.9 g/dL Normal 12.0-15.0 The [facility] Comment on above: Performed By: #### C BC #### [facility] [address] [place] [address], MCH (RBC) [Entitic mass] 31.5 pg Normal 26.0-34.0 The [facility] System Comment on above: Performed By: #### C BC #### S PATHOLOGY LABORATORY [address] [place] [address], MCHC (RBC) [Mass/Vol] 33.1 g/dL Normal 32.0-35.9 The [facility] Comment on above: Performed By: #### C BC #### S PATHOLOGY LABORATORY [address] [place] [address], MCV (RBC) [Entitic vol] 95 fL Normal 80-100 T [facility] Comment on above: Performed By: #### C BC #### S PATHOLOGY LABORATORY [address] [place], [place], Platelet mean volume (Bld) [Entitic vol] 10.8 fL Normal 7.5-11.2 The [facility] System Comment on above: Performed By: #### C BC #### S PATHOLOGY LABORATORY [address] [place], [place], Platelets (Bld) [#/Vol] 177 10*3/uL Normal 150-400 The [facility] System Comment on above: Performed By: #### C BC #### [facility] [address] [place], [place], RBC (Bld) [#/Vol] 4.40 10*6/uL Normal 4.00-5.20 The [facility] System Comment on above: Performed By: #### C BC #### [facility] [address] [place], [place], WBC (Bld) [#/Vol] 6.9 10*3/uL Normal 4.5-11.5 The [facility] Comment on above: Performed By: #### C BC #### [facility] [address] [place], [place], HEPATIC FUNCTION PANELon Albumin [Mass/Vol] 4.4 g/dL Normal 3.5-5.7 The [facility] System Comment on above: Performed By: #### Stacia H8, HEPATIC ####S PATHOLOGY [id number] [place], [place], ALK 59 IU/L Normal 34-104 The [facility] System Comment on above: Performed By: #### Stacia H8, HEPATIC ####S PATHOLOGY [id number] [place], [place], ALT [Catalytic activity/Vol] 38 U/L Normal 7-52 The [facility] Comment on above: Performed By: #### Stacia H8, HEPATIC ####[facility] [id number] [place], [place], AST [Catalytic activity/Vol] 31 U/L Normal 13-39 The [facility] Comment on above: Performed By: #### Stacia H8, HEPATIC ####S PATHOLOGY [id number] [place], [place], Bilirubin [Mass/Vol] 1.0 mg/dL Normal 0.3-1.0 [facility] Comment on above: Performed By: #### C H8, HEPATIC ####S PATHOLOGY [id number] [place], [place], Bilirubin.direct [Mass/Vol] 0.23 mg/dL High 0.03-0.18 [facility] Comment on above: Performed By: #### C H8, HEPATIC ####[facility] [id number] [place], Protein [Mass/Vol] 6.8 g/dL Normal 6.0-8.3 The [facility] Comment on above: Performed By: #### C H8, HEPATIC ####[facility] [id number] [place], [place], Laboratory - Chemistry and C hemistry - [...] [Mass/Vol] 6.8 g/dL 6.0 - 8.3 g/dL [facility] - CoagulationOrde red By: Franklyn Nguyễn on 01-27-2024 INR Coag (PPP) [Relative time] 0.95 {INR} 0.90 - 1.10 [facility] PT Coag (PPP) [Time] 11.3 s Met[facility] o[facility]al No Panel Informationon 01-26 AFP 3.6 ng/mL NINF - 9.0 ng/mL [facility] Interpretation and review of laboratory results Normal [facility] DxI Alpha-Fetoprotein (AFP) assay is a [...] interpretable as a tumor marker in females [facility] Interpretation and review of laboratory results Abnormal [facility] No Panel InformationOrdered By: Franklyn Nguyễn on 01-27-2024 Interpretation and review of laboratory results Normal [facility] PROTHROMBIN TIME AND INRon 0 01-27-2024 INR Coag (PPP) [Relative time] 0.95 {INR} Normal 0.90-1.10 [facility] Comment on above: Performed By: #### P T #### [facility] [address] [place], [address] PT Coag (PPP) [Time] 11.3 s Normal 9.4-12.5 [facility] Comment on above: Performed By: #### P T #### [facility] [address] [place], [address] Progress Noteson 01-27-2024 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 Normal [facility] XR CHEST PA/APon 01-12-2024 XR CHEST [...] on ThuJan 12, 2024 9:31:51 AM EDT Normal [facility] Comment on above: Order Comment: Injur y/Trauma or Illness?:Illness/Other How long have you had these symptoms (acute/chronic)?:Acute Reason for exam?:SOB, anxiety History of cancer?:unknown Surgeries, chemotherapy, or radiation?:unknown Type of Exam?:Initial Additional signs and symptoms?:. ALCOHOLon 12-19-2023 Ethanol [Mass/Vol] mg/dL Normal 0-10 [facility] Comment on above: Result Comment: INTOXICATION >80 MG/DL FATAL >400 MG/DL Performed By: #### U GERARDO, RTOX, UMAC #### Testing performed at [address] [address] ALCOHOL (ETHANOL),BLOODon Ethanol [Mass/Vol] mg/dL [facility] Comment on above: INTOXICATION >80 MG/DL FATAL >400 MG/DL CBCon 12-19-2023 ABSOLUTE BAS 0.0 10*3/uL Normal 0.0-0.2 [facility] Comment on above: Performed By: #### U GERARDO, RTOX, UMAC #### Testing performed at [address] [address] ABSOLUTE EOS 0.1 10*3/uL Normal 0.0-0.7 [facility] Comment on above: Performed By: #### U GERARDO, RTOX, UMAC #### Testing performed at [address] [address] ABSOLUTE NEUTROPHIL COUNT 3.4 10*3/uL Normal 1.4-6.5 [facility] Comment on above: Performed By: #### U GERARDO, RTOX, UMAC #### Testing performed at [address] [address] Basophils/100 WBC (Bld) 0.5 % Normal 0.0-2.0 [facility] Comment on above: Performed By: #### U GERARDO, RTOX, UMAC #### Testing performed at [address] [place] [address] DTYPE AUTO DIFF Normal [facility] Comment on above: Performed By: #### U GERARDO, RTOX, UMAC #### Testing performed at [address] [address] Eosinophils/100 WBC (Bld) 2.0 % Normal 0.0-11.0 [facility] Comment on above: Performed By: #### U GERARDO, RTOX, UMAC #### Testing performed at [address] [place] [address] Lymphocytes (Bld) [#/Vol] 1.2 10*3/uL Normal 1.2-3.4 [facility] Comment on above: Performed By: #### U GERARDO, RTOX, UMAC #### Testing performed at [address] [address] Lymphocytes/100 WBC (Bld) 23.9 % Normal 20.0-55.0 [facility] Comment on above: Performed By: #### U GERARDO, RTOX, UMAC #### Testing performed at [address] [address] Monocytes (Bld) [#/Vol] 0.3 10*3/uL Normal 0.0-0.7 [facility] Comment on above: Performed By: #### U GERARDO, RTOX, UMAC #### Testing performed at [address] [address] Monocytes/100 WBC (Bld) 5.3 % Normal 0.0-10.0 [facility] Comment on above: Performed By: #### U GERARDO, RTOX, UMAC #### Testing performed at [address] [address] Neutrophils/100 WBC (Bld) 68.3 % Normal 37.0-75.0 [facility] Comment on above: Performed By: #### U GERARDO, RTOX, UMAC #### Testing performed at [address] [address] Erythrocyte distribution width (RBC) [Ratio] 16.3 % High 11.5-14.5 [facility] Comment on above: Performed By: #### U GERARDO, RTOX, UMAC #### Testing performed at [address] [address] Hematocrit (Bld) [Volume fraction] 34.5 % Low 36.0-48.0 [facility] Comment on above: Performed By: #### U GERARDO, RTOX, UMAC #### Testing performed at [address] [address] Hemoglobin (Bld) [Mass/Vol] 12.0 g/dL Normal 12.0-16.0 [facility] Comment on above: Performed By: #### U GERARDO, RTOX, UMAC #### Testing performed at [address] [address] MCH (RBC) [Entitic mass] 32.5 pg Normal 26.0-35.0 [facility] Comment on above: Performed By: #### U GERARDO, RTOX, UMAC #### Testing performed at [address] [address] MCHC (RBC) [Mass/Vol] 34.9 g/dL Normal 27.0-37.0 [facility] Comment on above: Performed By: #### U GERARDO, RTOX, UMAC #### Testing performed at [address] [address] MCV (RBC) [Entitic vol] 93.0 fL Normal 80.0-100.0 [facility] Comment on above: Performed By: #### U GERARDO, RTOX, UMAC #### Testing performed at [address] [address] Platelet mean volume (Bld) [Entitic vol] 10.0 fL Normal 7.4-11.0 [facility] Comment on above: Performed By: #### U GERARDO, RTOX, UMAC #### Testing performed at [address] [address] Platelets (Bld) [#/Vol] 111 10*3/uL Low 130-400 [facility] Comment on above: Performed By: #### U GERARDO, RTOX, UMAC #### Testing performed at [address] [address] RBC (Bld) [#/Vol] 3.70 10*6/uL Low 4.0-5.4 [facility] Comment on above: Performed By: #### U GERARDO, RTOX, UMAC #### Testing performed at [address] [address] WBC (Bld) [#/Vol] 5.0 10*3/uL Normal 3.6-11.0 [facility] Comment on above: Performed By: #### U GERARDO, RTOX, UMAC #### Testing performed at [address] [address] CBC, EDIF, PLATELETon 2023 ABSOLUTE BASOPHIL COUNT 0.0 10*3/uL 0.0 - 0.2 10*3/uL [facility] Basophils/100 WBC (Bld) 0.5 % 0.0 - 2.0 % [facility] Differential cell count method Nom (Bld) AUTO DIFF % [facility] Eosinophils (Bld) [#/Vol] 0.1 10*3/uL 0.0 - 0.7 10*3/uL [facility] Eosinophils/100 WBC (Bld) 2.0 % 0.0 - 11.0 % [facility] Erythrocyte distribution width (RBC) [Ratio] 16.3 % High 11.5 - 14.5 % [facility] Hematocrit (Bld) [Volume fraction] 34.5 % Low 36.0 - 48.0 % [facility] Hemoglobin (Bld) [Mass/Vol] 12.0 g/dL [facility] Interpretation and review of laboratory results Abnormal [facility] Lymphocytes (Bld) [#/Vol] 1.2 10*3/uL 1.2 - 3.4 10*3/uL [facility] Lymphocytes/100 WBC (Bld) 23.9 % 20.0 - 55.0 % [facility] MCH (RBC) [Entitic mass] 32.5 pg 26.0 - 35.0 PG [facility] MCHC (RBC) [Mass/Vol] 34.9 g/dL [facility] MCV (RBC) [Entitic vol] 93.0 fL A [facility] Monocytes (Bld) [#/Vol] 0.3 10*3/uL 0.0 - 0.7 10*3/uL [facility] Monocytes/100 WBC (Bld) 5.3 % 0.0 - 10.0 % [facility] Neutrophils (Bld) [#/Vol] 3.4 10*3/uL 1.4 - 6.5 10*3/uL [facility] Neutrophils/100 WBC (Bld) 68.3 % 37.0 - 75.0 % [facility] Platelet mean volume (Bld) [Entitic vol] 10.0 fL [facility] Platelets (Bld) [#/Vol] 111 10*3/uL Low 130 - 400 10*3/uL [facility] RBC (Bld) [#/Vol] 3.70 10*6/uL Low 4.0 - 5.4 10*6/uL [facility] WBC (Bld) [#/Vol] 5.0 10*3/uL 3.6 - 11.0 10*3/uL [facility] CHEM 7 FASTINGon 12-18-2023 Chloride [Moles/Vol] 113 mmol/L High 98-107 [facility] Comment on above: Result Comment: Hilary diaz note: Triglyceride levels of 600mg/dL or higher may positively bias chloride results by approximately 2.1 mmol Performed By: #### U GERARDO, RTOX, UMAC #### Testing performed at [address] [address] CO2 [Moles/Vol] 19 mmol/L Low 22-30 [facility] Comment on above: Performed By: #### U GERARDO, RTOX, UMAC #### Testing performed at [address] [address] Creatinine [Mass/Vol] 1.30 mg/dL High 0.70-1.20 [facility] Comment on above: Performed By: #### U GERARDO, RTOX, UMAC #### Testing performed at [address] [address] EST. GFR, 53 ml/min/1.73sq.m [facility] Comment on above: Performed By: #### U GERARDO, RTOX, UMAC #### Testing performed at [address] [address] EST. GFR,Non 44 ml/min/1.73sq.m [facility] Comment on above: Performed By: #### U GERARDO, RTOX, UMAC #### Testing performed at [address] [address] GFR Information Average GFR for 60-6 9 years old = 85. Normal [facility] Comment on above: Result Comment: [employer] romelia Kidney disease, GFR = <60. Kidney failure, GFR = <15. The GFR estimate is not adjusted for extreme body surface area or acute process, nor has it been validated for women or ethnic groups other than and . Performed By: #### U GERARDO, RTOX, UMAC #### Testing performed at [address] [address] Glucose [Mass/Vol] 107 mg/dL High 70-100 [facility] Comment on above: Result Comment: NORMAL <100 mg/dL PREDIABETES 101-126 mg/dL DIABETES 126 mg/dL or higher Performed By: #### U GERARDO, RTOX, UMAC #### Testing performed at [address] [address] Potassium [Moles/Vol] 3.3 mmol/L Low 3.5-5.1 [facility] Comment on above: Performed By: #### U GERARDO, RTOX, UMAC #### Testing performed at [address] [address] Sodium [Moles/Vol] 142 mmol/L Normal 137-145 [facility] Comment on above: Performed By: #### U GERARDO, RTOX, UMAC #### Testing performed at [address] [address] Urea nitrogen [Mass/Vol] 12 mg/dL Normal 7-20 [facility] Comment on above: Performed By: #### U GERARDO, RTOX, UMAC #### Testing performed at [facility] [address] [place] [address] CHEM 7 (LYTES,BUN,CREA,GLUC) on 12-19-2023 Chloride [Moles/Vol] 113 mmol/L [facility] [employer] [facility] Comment on above: Please note: Triglyc eride levels of 600mg/dL or higher may positively bias chloride results by approximately 2.1 mmol CO2 [Moles/Vol] 19 mmol/L Low [facility] Creatinine [Mass/Vol] 1.30 mg/dL High [facility] GFR COMMENT Average GFR for 60-6 9 years old = 85. [facility] Comment on above: Chronic Kidney disea se, GFR = <60. Kidney failure, GFR = <15. The GFR estimate is not adjusted for extreme body surface area or acute process, nor has it been validated for women or ethnic groups other than and . GFR/1.73 sq M.predicted among blacks MDRD (S/P/Bld) [Vol rate/Area] 53 mL/min/{1.73_m2} ml/min/1.73s q.m [facility] GFR/1.73 sq M.predicted among non-blacks MDRD (S/P/Bld) [Vol rate/Area] 44 mL/min/{1.73_m2} ml/min/1.73s q.m [facility] Glucose post fast [Mass/Vol] 107 mg/dL [facility] Comment on above: NORMAL <100 mg/dL PREDIABETES 101-126 mg/dL DIABETES 126 mg/dL or higher Potassium [Moles/Vol] 3.3 mmol/L Low [facility] Sodium [Moles/Vol] 142 mmol/L [facility] Urea nitrogen [Mass/Vol] 12 mg/dL [facility] CT ABDOMEN/PELVIS WITHOUT CO NTRASTon 12-19-2023 CT [...] ventral hernia repair changes noted with subcutaneous inflammation/scarring. No fluid collections. No enlarged lymph nodes, free fluid, or free air. The bowel is without evidence of obstruction or adjacent inflammatory changes. The appendix is not visualized with certainty. Bladder unremarkable. Hysterectomy changes noted. No suspicious osseous lesions. IMPRESSION: 1. No significant acute abnormality identified in the abdomen or pelvis, within the limits of unenhanced CT, as described above. Normal [facility] CT Abdomen and Pelvis WO con [...] ventral hernia repair changes noted with subcutaneous inflammation/scarring. No fluid collections. No enlarged lymph nodes, [...] ventral hernia repair changes noted with subcutaneous inflammation/scarring. No fluid collections. No enlarged lymph nodes, free fluid, or free air. The bowel is without evidence of obstruction or adjacent inflammatory changes. The appendix is not visualized with certainty. Bladder unremarkable. Hysterectomy changes noted. No suspicious osseous lesions. IMPRESSION IMPRESSION: 1. No significant acute abnormality identified in the abdomen or pelvis, within the limits of unenhanced CT, as described above. [facility] Radiology Study observation (narrative) [facility] CT Abdomen and Pelvis WO con trastOrdered By: Rico Mendez on 12-19-2023 [facility] Work Phone: HEPATIC FUNCTION PANELon Albumin [Mass/Vol] 4.6 g/dL [facility] ALP [Catalytic activity/Vol] 73 U/L [facility] ALT [Catalytic activity/Vol] 45 U/L High [facility] AST [Catalytic activity/Vol] 44 U/L High [facility] Bilirubin [Mass/Vol] 1.4 mg/dL High [facility] Bilirubin.direct [Mass/Vol] 0.2 mg/dL [facility] Protein [Mass/Vol] 6.8 g/dL [facility] LACTATE, BLOODon 12-19-2023 Lactate [Moles/Vol] 1.1 mmol/L 0.7 - 2. 0 mmol/L [facility] LACTATE,BLOODon 12-19-2023 Lactate [Moles/Vol] 1.1 mmol/L Normal 0.7-2.0 [facility] Comment on above: Performed By: #### L ACTAC ####Testing performed at [facility] [place] [address] LIPASEon 12-19-2023 Lipase [Catalytic activity/Vol] 146 U/L 23 - 300 U/L [facility] LIPASE,SERUMon 12-19-2023 LIPASE,SERUM 146 U/L Normal 23-300 [facility] Comment on above: Performed By: #### U GERARDO, RTOX, UMAC #### Testing performed at [facility] [address] [place] [address] LIVER PANELon 12-19-2023 Albumin [Mass/Vol] 4.6 g/dL Normal 2.9-5.3 [facility] Comment on above: Performed By: #### U GERARDO, RTOX, UMAC #### Testing performed at [address] [address] ALP [Catalytic activity/Vol] 73 U/L Normal 38-126 [facility] Comment on above: Performed By: #### U GERARDO, RTOX, UMAC #### Testing performed at [address] [address] ALT [Catalytic activity/Vol] 45 U/L High <35 [facility] Comment on above: Performed By: #### U GERARDO, RTOX, UMAC #### Testing performed at [address] [address] AST [Catalytic activity/Vol] 44 U/L High 14-36 [facility] Comment on above: Performed By: #### U GERARDO, RTOX, UMAC #### Testing performed at [address] [address] Bilirubin [Mass/Vol] 1.4 mg/dL High 0.2-1.3 [facility] Comment on above: Performed By: #### U GERARDO, RTOX, UMAC #### Testing performed at [address] [address] Bilirubin.indirect [Mass/Vol] 0.2 mg/dL Normal 0.0-0.4 [facility] Comment on above: Performed By: #### U GERARDO, RTOX, UMAC #### Testing performed at [address] [address] Protein [Mass/Vol] 6.8 g/dL Normal 6.3-8.2 [facility] Comment on above: Performed By: #### U GERARDO, RTOX, UMAC #### Testing performed at [address] [address] No Panel Informationon 12-18 Interpretation and review of laboratory results Abnormal [facility] Interpretation and review of laboratory results Abnormal [facility] RAPID TOX SCREEN,URINEon AMPHETAMINE Negative Normal NEGATIVE [facility] Comment on above: Result Comment: <500 ng/ml CUTOFF Performed By: #### U GERARDO, RTOX, UMAC #### Testing performed at [address] [address] BARBITURATES Negative Normal NEGATIVE [facility] Comment on above: Result Comment: <200 ng/ml CUTOFF Performed By: #### U GERARDO, RTOX, UMAC #### Testing performed at [address] [address] BENZODIAZEPINES Positive Abnormal NEGATIVE [facility] Comment on above: Result Comment: <200 ng/ml CUTOFF *Unconfirmed Screening Result* Unconfirmed screening results are to be used only for medical treatment purposes. Performed By: #### U GERARDO, RTOX, UMAC #### Testing performed at [address] [address] BUPRENORPHINE Negative Normal NEGATIVE [facility] Comment on above: Result Comment: <12. 5 ng/ml CUTOFF Performed By: #### U GERARDO, RTOX, UMAC #### [place] [address] CANNABINOIDS Negative Normal NEGATIVE [facility] Comment on above: Result Comment: <50 ng/ml CUTOFF Performed By: #### U GERARDO, RTOX, UMAC #### Testing performed at [address] [address] COCAINE Negative Normal NEGATIVE [facility] Comment on above: Result Comment: <150 ng/ml CUTOFF Performed By: #### U GERARDO, RTOX, UMAC #### Testing performed at [address] [address] FENTANYL Negative Normal NEGATIVE [facility] Comment on above: Result Comment: 20 n g/mL CUTOFF *Unconfirmed Screening Result* Unconfirmed screening results are to be used only for medical treatment purposes. This test has not been approved by the FDA. Performed By: #### U GERARDO, RTOX, UMAC #### [place] [address] METHADONE Negative Normal NEGATIVE [facility] Comment on above: Result Comment: Meth adone Metabolite <100 ng/ml CUTOFF Performed By: #### U GERARDO, RTOX, UMAC #### [place] [address] METHAMPHETAMINE Negative Normal NEGATIVE [facility] Comment on above: Result Comment: <500 ng/ml CUTOFF Performed By: #### U GERARDO, RTOX, UMAC #### Testing performed at [address] [address] OPIATES Negative Normal NEGATIVE [facility] Comment on above: Result Comment: <300 ng/ml CUTOFF Performed By: #### U GERARDO, RTOX, UMAC #### Testing performed at [address] [address] OXYCODONE Negative Normal NEGATIVE [facility] Comment on above: Result Comment: <100 ng/ml CUTOFF Performed By: #### U GERARDO, RTOX, UMAC #### Testing performed at [address] [address] TRICYCLIC ANTIDEPRESSANTS Positive Abnormal NEGATIVE [facility] Comment on above: Result Comment: <100 0 ng/ml CUTOFF *Unconfirmed Screening Result* Unconfirmed screening results are to be used only for medical treatment purposes. Performed By: #### U GERARDO, RTOX, UMAC #### Testing performed at [address] [address] TOXICOLOGY DRUG SCREEN, URIN Abelardo 12-19-2023 Amphetamine (U) [Mass/Vol] Negative NEGATIVE NG/ML [facility] Comment on above: <500 ng/ml CUTOFF Barbiturates Screen Ql (U) Negative NEGATIVE NG/ML [facility] [employer] [facility] Comment on above: <200 ng/ml CUTOFF Benzodiazepines Ql (U) Positive Abnormal NEGAT JHONY NG/ML [facility] [employer] [facility] Comment on above: <200 ng/ml CUTOFF *Unconfirmed Screening Result* Unconfirmed screening results are to be used only for medical treatment purposes. Benzoylecgonine Ql (U) Negative NEGAT JHONY NG[facility] Comment on above: <150 ng/ml CUTOFF Buprenorphine Ql (U) Negative NEGATIV E NG/ML [facility] Comment on above: <12.5 ng/ml CUTOFF Cannabinoids Screen Ql (U) Negative NEGATIVE NG/ML [facility] Comment on above: <50 ng/ml CUTOFF Fentanyl Negative NEGATIVE NG/ML [facility] Comment on above: 20 ng/mL CUTOFF *Unconfirmed Screening Result* Unconfirmed screening results are to be used only for medical treatment purposes. This test has not been approved by the FDA. Interpretation and review of laboratory results Abnormal [facility] Methadone Screen Ql (U) Negative NEGA TIVE NG/ML [facility] Comment on above: Methadone Metabolite <100 ng/ml CUTOFF Methamphetamine (U) [Mass/Vol] Negative NEGATIVE NG/ML [facility] Comment on above: <500 ng/ml CUTOFF Opiates Screen Ql (U) Negative NEGATI VE NG/ML [facility] Comment on above: <300 ng/ml CUTOFF oxyCODONE Ql (U) Negative NEGATIVE NG/ML [facility] Comment on above: <100 ng/ml CUTOFF Tricyclic antidepressants Screen Ql (U) Positive Abnormal NEGATIVE NG/ML [facility] Comment on above: <1000 ng/ml CUTOFF *Unconfirmed Screening Result* Unconfirmed screening results are to be used only for medical treatment purposes. [facility] URINALYSIS, MACROon 12-19-19 24 Bilirubin Ql (U) Negative NEGATIVE [facility] Clarity (U) CLEAR CLEAR [facility] Color (U) YELLOW YELLOW [facility] Glucose Test strip (U) [Mass/Vol] Negative NEGATIVE mg/dl [facility] Hemoglobin Ql (U) TRACE-LYSED Abnormal NEGATIVE [facility] Ketones (U) [Mass/Vol] Negative NEGAT JHONY mg/dl [facility] Leukocyte esterase Test strip Ql (U) LARGE Abnormal NEGATIVE [facility] Nitrite Ql (U) Negative NEGATIVE [facility] pH (U) 7.0 [pH] 5.0 - 7.0 [facility] Protein Ql (U) Negative NEGATIVE mg/dl [facility] Specific gravity (U) [Rel density] 1.010 1.010 - 1.025 [facility] Urobilinogen (U) [Mass/Vol] 0.2 mg/dL [facility] URINE CULTUREon 12-19-2023 Bacteria identified Cx Nom (U) SPECIMEN DESCRIPTION URINE - OTHER UA DIPSTICK LEUKOCYTE POSITIVE * Result Note: NITRITE NEGATIVE * CULTURE NO PATHOGENS ISOLATED * Result Note: Testing performed at [place], [place] [address] * REPORT STATUS 12/21/2023 * Result Note: FINAL * Normal [facility] Comment on above: Performed By: #### A URIL #### Testing performed at [facility] [address] [place] [address] Testing performed at [employer] [address] [address] URINE MACROSCOPICon 12-19-19 24 Bilirubin Ql (U) Negative Normal NEGATIVE [facility] Comment on above: Performed By: #### U GERARDO, RTOX, UMAC #### Testing performed at [address] [address] Clarity (U) CLEAR Normal CLEAR [facility] Comment on above: Performed By: #### U GERARDO, RTOX, UMAC #### Testing performed at [address] [address] Color (U) YELLOW Normal YELLOW [facility] Comment on above: Performed By: #### U GERARDO, RTOX, UMAC #### Testing performed at [address] [address] Glucose Ql (U) Negative Normal NEGATIVE [facility] Comment on above: Performed By: #### U GERARDO, RTOX, UMAC #### Testing performed at [address] [address] pH (U) 7.0 [pH] Normal 5.0-7.0 [facility] Comment on above: Performed By: #### U GERARDO, RTOX, UMAC #### Testing performed at [address] [address] URINE HEMOGLOBIN TRACE-LYSED Abnormal NEGATIVE [facility] Comment on above: Performed By: #### U GERARDO, RTOX, UMAC #### Testing performed at [address] [address] URINE KETONE Negative Normal NEGATIVE [facility] Comment on above: Performed By: #### U GERARDO, RTOX, UMAC #### Testing performed at [address] [address] URINE LEUKOTEST LARGE Abnormal NEGATIVE [facility] Comment on above: Performed By: #### U GERARDO, RTOX, UMAC #### Testing performed at [address] [address] URINE NITRATES Negative Normal NEGATIVE [facility] Comment on above: Performed By: #### U GERARDO, RTOX, UMAC #### Testing performed at [address] [address] URINE SPEC GRAVITY 1.010 Normal 1.010-1.025 [facility] Comment on above: Performed By: #### U GERARDO, RTOX, UMAC #### Testing performed at [address] [address] URINE TOTAL PROTEIN Negative Normal NEGATIVE [facility] Comment on above: Performed By: #### U GERARDO, RTOX, UMAC #### Testing performed at [address] [address] Urobilinogen Qn (U) 0.2 {Samuel'U}/dL Normal 0.2-1.0 [facility] Comment on above: Performed By: #### U GERARDO, RTOX, UMAC #### Testing performed at [address] [address] URINE MICROSCOPICon 12-19-19 24 BACTERIA 1+ Abnormal NEGATIVE [facility] Comment on above: Performed By: #### U GERARDO, RTOX, UMAC #### Testing performed at [address] [address] CASTS NONE Normal NONE [facility] Comment on above: Performed By: #### U GERARDO, RTOX, UMAC #### Testing performed at [address] [place] [address] CRYSTAL NONE Normal NONE [facility] Comment on above: Performed By: #### U GERARDO, RTOX, UMAC #### Testing performed at [address] [address] Epithelial cells LM Ql (Urine sed) 1 TO 5 Normal [facility] Comment on above: Performed By: #### U GERARDO, RTOX, UMAC #### Testing performed at [address] [place] [address] Mucus Ql (Urine sed) Negative Normal NEGATIVE [facility] Comment on above: Performed By: #### U GERARDO, RTOX, UMAC #### Testing performed at [address] [address] URINE COMMENT REFLEX CULTURE PER ESTABLISHED CRITERIA. Normal [facility] Comment on above: Performed By: #### U GERARDO, RTOX, UMAC #### Testing performed at [address] [address] URINE RBC'S 1 TO 5 Normal NEGATIVE [facility] Comment on above: Performed By: #### U GERARDO, RTOX, UMAC #### Testing performed at [address] [address] URINE WBC'S 1 TO 5 Normal NEGATIVE [facility] Comment on above: Performed By: #### U GERARDO, RTOX, UMAC #### Testing performed at [address] [address] Bacteria LM.HPF (Urine sed) [#/Area] 1+ Abnormal NEGATIVE [facility] Casts LM.LPF (Urine sed) [#/Area] NONE NONE /LPF [facility] Crystals LM Nom (Urine sed) NONE NONE [facility] Epithelial cells LM Ql (Urine sed) 1 TO 5 /HPF [facility] Mucus Ql (Urine sed) Negative NEGATIVE [facility] RBC LM.HPF (Urine sed) [#/Area] 1 TO 5 NEGATIVE /HPF [facility] Urine sediment comments LM Mg (Urine sed) REFLEX CULTURE PER ESTABLISHED CRITERIA. [facility] WBC LM.HPF (Urine sed) [#/Area] 1 TO 5 NEGATIVE /HPF [facility] ALDOSTERONEon 05-28-2023 ALDOSTERONE 4.7 Normal [facility] Comment on above: Result Comment: Refe rence range: 0.0 to 30.0 Unit: ng/dL (NOTE) This test was developed and its performance characteristics determined by [facility]. It has not been cleared or approved by the Food and Drug Administration. PERFORMED AT [facility] Performed By: #### U GERARDO, RTOX, UMAC #### Testing performed at [address] [address] ACTH, PLASMAon 05-27-2023 ACTH, PLASMA 26.1 Normal [facility] Comment on above: Result Comment: ACTH reference interval for samples collected between 7 and 10 AM. Reference range: 7.2 to 63.3 Unit: pg/mL PERFORMED AT [facility] Performed By: #### L ACTH #### Testing performed at [facility] [address] [place] [address] [place] [address] HCV RNA KRANTHI QUAL RFX TO RANDELL Ton 05-27-2023 HCV RNA, QUANT Not detected Normal [facility] Comment on above: Result Comment: No e vidence of active HCV infection. Unit: IU/mL Performed By: #### U GERARDO, RTOX, UMAC #### [place] [address] TEST INFORMATION Comment Normal [facility] Comment on above: Result Comment: (NOT E) The quantitative range of this assay is 15 IU/mL to 100 million IU/mL. PERFORMED AT [facility] Performed By: #### U GERARDO, RTOX, UMAC #### Testing performed at [place] [id number] RENIN ACTIVITY,PLASMAon RENIN 0.262 Normal [facility] Comment on above: Result Comment: Refe rence range: 0.167 to 5.380 Unit: ng/mL/hr (NOTE) This test was developed and its performance characteristics determined by [facility]. It has not been cleared or approved by the Food and Drug Administration. PERFORMED AT [facility] Performed By: #### U GERARDO, RTOX, UMAC #### [place] [address] CBCon 05-26-2023 ABSOLUTE BAS 0.0 10*3/uL Normal 0.0-0.2 [facility] Comment on above: Performed By: #### U GERARDO, RTOX, UMAC #### [place] [address] ABSOLUTE EOS 0.4 10*3/uL Normal 0.0-0.7 [facility] Comment on above: Performed By: #### U GERARDO, RTOX, UMAC #### Testing performed at [place] [id number] ABSOLUTE NEUTROPHIL COUNT 2.6 10*3/uL Normal 1.4-6.5 [facility] Comment on above: Performed By: #### U GERARDO, RTOX, UMAC #### Testing performed at [place] [id number] Basophils/100 WBC (Bld) 0.5 % Normal 0.0-2.0 [facility] Comment on above: Performed By: #### U GERARDO, RTOX, UMAC #### Testing performed at [place] [id number] DTYPE AUTO DIFF Normal [facility] Comment on above: Performed By: #### U GERARDO, RTOX, UMAC #### Testing performed at [address] [address] Eosinophils/100 WBC (Bld) 9.0 % Normal 0.0-11.0 [facility] Comment on above: Performed By: #### U GERARDO, RTOX, UMAC #### Testing performed at [address] [address] Lymphocytes (Bld) [#/Vol] 1.3 10*3/uL Normal 1.2-3.4 [facility] Comment on above: Performed By: #### U GERARDO, RTOX, UMAC #### Testing performed at [address] [address] Lymphocytes/100 WBC (Bld) 27.2 % Normal 20.0-55.0 [facility] Comment on above: Performed By: #### U GERARDO, RTOX, UMAC #### Testing performed at [address] [address] Monocytes (Bld) [#/Vol] 0.5 10*3/uL Normal 0.0-0.7 [facility] Comment on above: Performed By: #### U GERARDO, RTOX, UMAC #### Testing performed at [address] [address] Monocytes/100 WBC (Bld) 9.6 % Normal 0.0-10.0 [facility] Comment on above: Performed By: #### U GERARDO, RTOX, UMAC #### Testing performed at [address] [address] Neutrophils/100 WBC (Bld) 53.7 % Normal 37.0-75.0 [facility] Comment on above: Performed By: #### U GERARDO, RTOX, UMAC #### Testing performed at [address] [address] Erythrocyte distribution width (RBC) [Ratio] 13.4 % Normal 11.5-14.5 [facility] Comment on above: Performed By: #### U GERARDO, RTOX, UMAC #### Testing performed at [address] [address] Hematocrit (Bld) [Volume fraction] 40.6 % Normal 36.0-48.0 [facility] Comment on above: Performed By: #### U GERARDO, RTOX, UMAC #### Testing performed at [address] [address] Hemoglobin (Bld) [Mass/Vol] 13.9 g/dL Normal 12.0-16.0 [facility] Comment on above: Performed By: #### U GERARDO, RTOX, UMAC #### Testing performed at [address] [address] MCH (RBC) [Entitic mass] 31.0 pg Normal 26.0-35.0 [facility] Comment on above: Performed By: #### U GERARDO, RTOX, UMAC #### Testing performed at [address] [address] MCHC (RBC) [Mass/Vol] 34.3 g/dL Normal 27.0-37.0 [facility] Comment on above: Performed By: #### U GERARDO, RTOX, UMAC #### Testing performed at [address] [address] MCV (RBC) [Entitic vol] 90.4 fL Normal 80.0-100.0 [facility] Comment on above: Performed By: #### U GERARDO, RTOX, UMAC #### Testing performed at [address] [address] Platelet mean volume (Bld) [Entitic vol] 9.4 fL Normal 7.4-11.0 [facility] Comment on above: Performed By: #### U GERARDO, RTOX, UMAC #### Testing performed at [address] [address] Platelets (Bld) [#/Vol] 111 10*3/uL Low 130-400 [facility] Comment on above: Performed By: #### U GERARDO, RTOX, UMAC #### Testing performed at [address] [address] RBC (Bld) [#/Vol] 4.49 10*6/uL Normal 4.0-5.4 [facility] Comment on above: Performed By: #### U GERARDO, RTOX, UMAC #### Testing performed at [address] [address] WBC (Bld) [#/Vol] 4.8 10*3/uL Normal 3.6-11.0 [facility] Comment on above: Performed By: #### U GERARDO, RTOX, UMAC #### Testing performed at [address] [address] CBC, EDIF, PLATELETon 2022 ABSOLUTE BASOPHIL COUNT 0.0 10*3/uL 0.0 - 0.2 10*3/uL [facility] Basophils/100 WBC (Bld) 0.5 % 0.0 - 2.0 % [facility] Differential cell count method Nom (Bld) AUTO DIFF % [facility] Eosinophils (Bld) [#/Vol] 0.4 10*3/uL 0.0 - 0.7 10*3/uL [facility] Eosinophils/100 WBC (Bld) 9.0 % 0.0 - 11.0 % [facility] Erythrocyte distribution width (RBC) [Ratio] 13.4 % 11.5 - 14.5 % [facility] Hematocrit (Bld) [Volume fraction] 40.6 % 36.0 - 48.0 % [facility] Hemoglobin (Bld) [Mass/Vol] 13.9 g/dL [facility] Interpretation and review of laboratory results Abnormal [facility] Lymphocytes (Bld) [#/Vol] 1.3 10*3/uL 1.2 - 3.4 10*3/uL [facility] Lymphocytes/100 WBC (Bld) 27.2 % 20.0 - 55.0 % [facility] MCH (RBC) [Entitic mass] 31.0 pg 26.0 - 35.0 PG [facility] MCHC (RBC) [Mass/Vol] 34.3 g/dL [facility] MCV (RBC) [Entitic vol] 90.4 fL A [facility] Monocytes (Bld) [#/Vol] 0.5 10*3/uL 0.0 - 0.7 10*3/uL [facility] Monocytes/100 WBC (Bld) 9.6 % 0.0 - 10.0 % [facility] Neutrophils (Bld) [#/Vol] 2.6 10*3/uL 1.4 - 6.5 10*3/uL [facility] Neutrophils/100 WBC (Bld) 53.7 % 37.0 - 75.0 % [facility] Platelet mean volume (Bld) [Entitic vol] 9.4 fL [facility] Platelets (Bld) [#/Vol] 111 10*3/uL Low 130 - 400 10*3/uL [facility] RBC (Bld) [#/Vol] 4.49 10*6/uL 4.0 - 5.4 10*6/uL [facility] WBC (Bld) [#/Vol] 4.8 10*3/uL 3.6 - 11.0 10*3/uL [facility] MAGNESIUMon 05-26-2023 Magnesium [Mass/Vol] 2.1 mg/dL Normal 1.6-2.3 [facility] Comment on above: Performed By: #### U GERARDO, RTOX, UMAC #### Testing performed at [place] [address] [place] [address] Magnesium [Mass/Vol] 2.1 mg/dL [facility] No Panel Informationon 05-26 [facility] RENAL FUNCTION PANELon 05-26 Albumin [Mass/Vol] 3.8 G/dl 3.5 - 5.0 G/dl [facility] Calcium [Mass/Vol] 9.0 mg/dL [facility] Chloride [Moles/Vol] 104 mmol/L [facility] Comment on above: Please note: Triglyc eride levels of 600mg/dL or higher may positively bias chloride results by approximately 2.1 mmol CO2 [Moles/Vol] 28 mmol/L [facility] Creatinine [Mass/Vol] 1.09 mg/dL [facility] GFR COMMENT Average GFR for 60-6 9 years old = 85. [facility] Comment on above: Chronic Kidney disea se, GFR = <60. Kidney failure, GFR = <15. The GFR estimate is not adjusted for extreme body surface area or acute process, nor has it been validated for women or ethnic groups other than and . GFR/1.73 sq M.predicted among blacks MDRD (S/P/Bld) [Vol rate/Area] 65 mL/min/{1.73_m2} ml/min/1.73s q.m [facility] GFR/1.73 sq M.predicted among non-blacks MDRD (S/P/Bld) [Vol rate/Area] 54 mL/min/{1.73_m2} ml/min/1.73s q.m [facility] Glucose post fast [Mass/Vol] 136 mg/dL High [facility] Comment on above: NORMAL <100 mg/dL PREDIABETES 101-126 mg/dL DIABETES 126 mg/dL or higher Interpretation and review of laboratory results Abnormal [facility] Phosphate [Mass/Vol] 5.6 mg/dL High [facility] Potassium [Moles/Vol] 3.3 mmol/L Low [facility] Sodium [Moles/Vol] 139 mmol/L [facility] Urea nitrogen [Mass/Vol] 25 mg/dL High [facility] RENAL PANEL,FASTINGon 2022 ALBUMIN 3.8 G/dl Normal 3.5-5.0 [facility] Comment on above: Performed By: #### U GERARDO, RTOX, UMAC #### Testing performed at [address] [address] Calcium [Mass/Vol] 9.0 mg/dL Normal 8.4-10.2 [facility] Comment on above: Performed By: #### U GERARDO, RTOX, UMAC #### Testing performed at [address] [address] Chloride [Moles/Vol] 104 mmol/L Normal 98-107 [facility] Comment on above: Result Comment: Hilary diaz note: Triglyceride levels of 600mg/dL or higher may positively bias chloride results by approximately 2.1 mmol Performed By: #### U GERARDO, RTOX, UMAC #### Testing performed at [address] [address] CO2 [Moles/Vol] 28 mmol/L Normal 22-30 [facility] Comment on above: Performed By: #### U GERARDO, RTOX, UMAC #### Testing performed at [address] [address] Creatinine [Mass/Vol] 1.09 mg/dL Normal 0.70-1.20 [facility] Comment on above: Performed By: #### U GERARDO, RTOX, UMAC #### Testing performed at [address] [address] EST. GFR, 65 ml/min/1.73sq.m [facility] Comment on above: Performed By: #### U GERARDO, RTOX, UMAC #### Testing performed at [address] [address] EST. GFR,Non 54 ml/min/1.73sq.m [facility] Comment on above: Performed By: #### U GERARDO, RTOX, UMAC #### Testing performed at [address] [address] GFR Information Average GFR for 60-6 9 years old = 85. Normal [facility] Comment on above: Result Comment: [employer] rom[employer] Kidney disease, GFR = <60. Kidney failure, GFR = <15. The GFR estimate is not adjusted for extreme body surface area or acute process, nor has it been validated for women or ethnic groups other than and . Performed By: #### U GERARDO, RTOX, UMAC #### Testing performed at [address] [address] Glucose [Mass/Vol] 136 mg/dL High 70-100 [facility] Comment on above: Result Comment: NORMAL <100 mg/dL PREDIABETES 101-126 mg/dL DIABETES 126 mg/dL or higher Performed By: #### U GERARDO, RTOX, UMAC #### Testing performed at [address] [address] PHOSPHOROUS 5.6 MG/DL High 2.5-4.5 [facility] Comment on above: Performed By: #### U GERARDO, RTOX, UMAC #### Testing performed at [address] [address] Potassium [Moles/Vol] 3.3 mmol/L Low 3.5-5.1 [facility] Comment on above: Performed By: #### U GERARDO, RTOX, UMAC #### Testing performed at [address] [address] Sodium [Moles/Vol] 139 mmol/L Normal 137-145 [facility] Comment on above: Performed By: #### U GERARDO, RTOX, UMAC #### Testing performed at [address] [address] Urea nitrogen [Mass/Vol] 25 mg/dL High 7-20 [facility] Comment on above: Performed By: #### U GERARDO, RTOX, UMAC #### Testing performed at [address] [address] CBCon 05-25-2023 ABSOLUTE BAS 0.0 10*3/uL Normal 0.0-0.2 [facility] Comment on above: Performed By: #### U GERARDO, RTOX, UMAC #### Testing performed at [address] [address] ABSOLUTE EOS 0.2 10*3/uL Normal 0.0-0.7 [facility] Comment on above: Performed By: #### U GERARDO, RTOX, UMAC #### Testing performed at [address] [address] ABSOLUTE NEUTROPHIL COUNT 2.7 10*3/uL Normal 1.4-6.5 [facility] Comment on above: Performed By: #### U GERARDO, RTOX, UMAC #### Testing performed at [address] [address] Basophils/100 WBC (Bld) 0.5 % Normal 0.0-2.0 [facility] Comment on above: Performed By: #### U GERARDO, RTOX, UMAC #### Testing performed at [address] [address] DTYPE AUTO DIFF Normal [facility] Comment on above: Performed By: #### U GERARDO, RTOX, UMAC #### Testing performed at [address] [address] Eosinophils/100 WBC (Bld) 4.9 % Normal 0.0-11.0 [facility] Comment on above: Performed By: #### U GERARDO, RTOX, UMAC #### Testing performed at [address] [address] Lymphocytes (Bld) [#/Vol] 1.2 10*3/uL Normal 1.2-3.4 [facility] Comment on above: Performed By: #### U GERARDO, RTOX, UMAC #### Testing performed at [address] [address] Lymphocytes/100 WBC (Bld) 25.3 % Normal 20.0-55.0 [facility] Comment on above: Performed By: #### U GERARDO, RTOX, UMAC #### Testing performed at [address] [address] Monocytes (Bld) [#/Vol] 0.4 10*3/uL Normal 0.0-0.7 [facility] Comment on above: Performed By: #### U GERARDO, RTOX, UMAC #### Testing performed at [address] [address] Monocytes/100 WBC (Bld) 9.6 % Normal 0.0-10.0 [facility] Comment on above: Performed By: #### U GERARDO, RTOX, UMAC #### Testing performed at [address] [address] Neutrophils/100 WBC (Bld) 59.7 % Normal 37.0-75.0 [facility] Comment on above: Performed By: #### U GERARDO, RTOX, UMAC #### Testing performed at [address] [address] Erythrocyte distribution width (RBC) [Ratio] 13.0 % Normal 11.5-14.5 [facility] Comment on above: Performed By: #### U GERARDO, RTOX, UMAC #### Testing performed at [address] [address] Hematocrit (Bld) [Volume fraction] 42.2 % Normal 36.0-48.0 [facility] Comment on above: Performed By: #### U GERARDO, RTOX, UMAC #### Testing performed at [address] [address] Hemoglobin (Bld) [Mass/Vol] 14.5 g/dL Normal 12.0-16.0 [facility] Comment on above: Performed By: #### U GERARDO, RTOX, UMAC #### Testing performed at [address] [address] MCH (RBC) [Entitic mass] 31.0 pg Normal 26.0-35.0 [facility] Comment on above: Performed By: #### U GERARDO, RTOX, UMAC #### Testing performed at [address] [address] MCHC (RBC) [Mass/Vol] 34.3 g/dL Normal 27.0-37.0 [facility] Comment on above: Performed By: #### U GERARDO, RTOX, UMAC #### Testing performed at [address] [address] MCV (RBC) [Entitic vol] 90.4 fL Normal 80.0-100.0 [facility] Comment on above: Performed By: #### U GERARDO, RTOX, UMAC #### Testing performed at [address] [address] Platelet mean volume (Bld) [Entitic vol] 9.2 fL Normal 7.4-11.0 [facility] Comment on above: Performed By: #### U GERARDO, RTOX, UMAC #### Testing performed at [address] [address] Platelets (Bld) [#/Vol] 105 10*3/uL Low 130-400 [facility] Comment on above: Performed By: #### U GERARDO, RTOX, UMAC #### Testing performed at [address] [address] RBC (Bld) [#/Vol] 4.67 10*6/uL Normal 4.0-5.4 [facility] Comment on above: Performed By: #### U GERARDO, RTOX, UMAC #### Testing performed at [address] [address] WBC (Bld) [#/Vol] 4.6 10*3/uL Normal 3.6-11.0 [facility] Comment on above: Performed By: #### U GERARDO, RTOX, UMAC #### Testing performed at [facility] [address] [place] [address] CBC, EDIF, PLATELETon 2022 ABSOLUTE BASOPHIL COUNT 0.0 10*3/uL 0.0 - 0.2 10*3/uL [facility] Basophils/100 WBC (Bld) 0.5 % 0.0 - 2.0 % [facility] Differential cell count method Nom (Bld) AUTO DIFF % [facility] Eosinophils (Bld) [#/Vol] 0.2 10*3/uL 0.0 - 0.7 10*3/uL [facility] Eosinophils/100 WBC (Bld) 4.9 % 0.0 - 11.0 % [facility] Erythrocyte distribution width (RBC) [Ratio] 13.0 % 11.5 - 14.5 % [facility] Hematocrit (Bld) [Volume fraction] 42.2 % 36.0 - 48.0 % [facility] Hemoglobin (Bld) [Mass/Vol] 14.5 g/dL [facility] Interpretation and review of laboratory results Abnormal [facility] Lymphocytes (Bld) [#/Vol] 1.2 10*3/uL 1.2 - 3.4 10*3/uL [facility] Lymphocytes/100 WBC (Bld) 25.3 % 20.0 - 55.0 % [facility] MCH (RBC) [Entitic mass] 31.0 pg 26.0 - 35.0 PG [facility] MCHC (RBC) [Mass/Vol] 34.3 g/dL [facility] MCV (RBC) [Entitic vol] 90.4 fL A [facility] Monocytes (Bld) [#/Vol] 0.4 10*3/uL 0.0 - 0.7 10*3/uL [facility] Monocytes/100 WBC (Bld) 9.6 % 0.0 - 10.0 % [facility] Neutrophils (Bld) [#/Vol] 2.7 10*3/uL 1.4 - 6.5 10*3/uL [facility] Neutrophils/100 WBC (Bld) 59.7 % 37.0 - 75.0 % [facility] Platelet mean volume (Bld) [Entitic vol] 9.2 fL [facility] Platelets (Bld) [#/Vol] 105 10*3/uL Low 130 - 400 10*3/uL [facility] RBC (Bld) [#/Vol] 4.67 10*6/uL 4.0 - 5.4 10*6/uL [facility] WBC (Bld) [#/Vol] 4.6 10*3/uL 3.6 - 11.0 10*3/uL [facility] CMP FASTINGon 05-25-2023 A:G RATIO 1.7 RATIO Normal [facility] Comment on above: Performed By: #### U GERARDO, RTOX, UMAC #### Testing performed at [address] [address] ALBUMIN 3.9 G/dl Normal 3.5-5.0 [facility] Comment on above: Performed By: #### U GERARDO, RTOX, UMAC #### Testing performed at [address] [address] ALP [Catalytic activity/Vol] 70 U/L Normal 38-126 [facility] Comment on above: Performed By: #### U GERARDO, RTOX, UMAC #### Testing performed at [address] [address] ALT [Catalytic activity/Vol] 52 U/L High <35 [facility] Comment on above: Performed By: #### U GERARDO, RTOX, UMAC #### Testing performed at [address] [address] AST [Catalytic activity/Vol] 45 U/L High 14-36 [facility] Comment on above: Performed By: #### U GERARDO, RTOX, UMAC #### Testing performed at [address] [address] Bilirubin [Mass/Vol] 1.2 mg/dL Normal 0.2-1.3 [facility] Comment on above: Performed By: #### U GERARDO, RTOX, UMAC #### Testing performed at [address] [address] Calcium [Mass/Vol] 8.7 mg/dL Normal 8.4-10.2 [facility] Comment on above: Performed By: #### U GERARDO, RTOX, UMAC #### Testing performed at [address] [address] Chloride [Moles/Vol] 102 mmol/L Normal 98-107 [facility] Comment on above: Result Comment: Hilary diza note: Triglyceride levels of 600mg/dL or higher may positively bias chloride results by approximately 2.1 mmol Performed By: #### U GERARDO, RTOX, UMAC #### Testing performed at [place] [id number] CO2 [Moles/Vol] 29 mmol/L Normal 22-30 [facility] Comment on above: Performed By: #### U GERARDO, RTOX, UMAC #### [place] [address] Creatinine [Mass/Vol] 0.91 mg/dL Normal 0.70-1.20 [facility] Comment on above: Performed By: #### U GERARDO, RTOX, UMAC #### Testing performed at [address] [address] EST. GFR, 81 ml/min/1.73sq.m [facility] Comment on above: Performed By: #### U GERARDO, RTOX, UMAC #### Testing performed at [place] [id number] EST. GFR,Non 67 ml/min/1.73sq.m [facility] Comment on above: Performed By: #### U GERARDO, RTOX, UMAC #### Testing performed at [address] [address] GFR Information Average GFR for 60-6 9 years old = 85. Normal [facility] Comment on above: Result Comment: [employer] romelia Kidney disease, GFR = <60. Kidney failure, GFR = <15. The GFR estimate is not adjusted for extreme body surface area or acute process, nor has it been validated for women or ethnic groups other than and . Performed By: #### U GERARDO, RTOX, UMAC #### Testing performed at [place] [id number] Glucose [Mass/Vol] 141 mg/dL High 70-100 [facility] Comment on above: Result Comment: NORMAL <100 mg/dL PREDIABETES 101-126 mg/dL DIABETES 126 mg/dL or higher Performed By: #### U GERARDO, RTOX, UMAC #### Testing performed at [address] [address] Potassium [Moles/Vol] 3.2 mmol/L Low 3.5-5.1 [facility] Comment on above: Performed By: #### U GERARDO, RTOX, UMAC #### Testing performed at [address] [address] Protein [Mass/Vol] 6.2 g/dL Low 6.3-8.2 [facility] Comment on above: Performed By: #### U GERARDO, RTOX, UMAC #### Testing performed at [address] [address] Sodium [Moles/Vol] 139 mmol/L Normal 137-145 [facility] Comment on above: Performed By: #### U GERARDO, RTOX, UMAC #### Testing performed at [address] [address] Urea nitrogen [Mass/Vol] 21 mg/dL High 7-20 [facility] Comment on above: Performed By: #### U GERARDO, RTOX, UMAC #### Testing performed at [address] [address] COMPREHENSIVE METABOLIC PANE José 05-25-2023 Albumin [Mass/Vol] 3.9 G/dl 3.5 - 5.0 G/dl [facility] Albumin/Globulin [Mass ratio] 1.7 {ratio} RATIO [facility] ALP [Catalytic activity/Vol] 70 U/L [facility] ALT [Catalytic activity/Vol] 52 U/L High NINF [facility] AST [Catalytic activity/Vol] 45 U/L High [facility] Bilirubin [Mass/Vol] 1.2 mg/dL [facility] Calcium [Mass/Vol] 8.7 mg/dL [facility] Chloride [Moles/Vol] 102 mmol/L [facility] Comment on above: Please note: Triglyc eride levels of 600mg/dL or higher may positively bias chloride results by approximately 2.1 mmol CO2 [Moles/Vol] 29 mmol/L [facility] Creatinine [Mass/Vol] 0.91 mg/dL [facility] GFR COMMENT Average GFR for 60-6 9 years old = 85. [facility] Comment on above: Chronic Kidney disea se, GFR = <60. Kidney failure, GFR = <15. The GFR estimate is not adjusted for extreme body surface area or acute process, nor has it been validated for women or ethnic groups other than and . GFR/1.73 sq M.predicted among blacks MDRD (S/P/Bld) [Vol rate/Area] 81 mL/min/{1.73_m2} ml/min/1.73s q.m [facility] GFR/1.73 sq M.predicted among non-blacks MDRD (S/P/Bld) [Vol rate/Area] 67 mL/min/{1.73_m2} ml/min/1.73s q.m [facility] Glucose post fast [Mass/Vol] 141 mg/dL High [facility] Comment on above: NORMAL <100 mg/dL PREDIABETES 101-126 mg/dL DIABETES 126 mg/dL or higher Potassium [Moles/Vol] 3.2 mmol/L Low [facility] Protein [Mass/Vol] 6.2 g/dL Low [facility] Sodium [Moles/Vol] 139 mmol/L [facility] Urea nitrogen [Mass/Vol] 21 mg/dL High [facility] MAGNESIUMon 05-25-2023 Magnesium [Mass/Vol] 1.9 mg/dL Normal 1.6-2.3 [facility] Comment on above: Performed By: #### U GERARDO, RTOX, UMAC #### Testing performed at [facility] [address] [place] [address] Magnesium [Mass/Vol] 1.9 mg/dL [facility] No Panel Informationon 05-25 Interpretation and review of laboratory results Abnormal [facility] PHOSPHATE, INORGANICon 05-25 Phosphate [Mass/Vol] 4.8 mg/dL High [facility] PHOSPHOROUSon 05-25-2023 PHOSPHOROUS 4.8 MG/DL High 2.5-4.5 [facility] Comment on above: Performed By: #### U GERARDO, RTOX, UMAC #### Testing performed at [facility] [address] [place] [address] [place] RENAL ARTERIESon 05-25-20 US RENAL ARTERIES [...] of renal cortical thinning or hydronephrosis. Normal [facility] US Renal arteryon 05-25-2023 IMPRESSION: 1. [...] evidence of renal cortical thinning or hydronephrosis. [facility] US Renal arteryOrdered By: Moisés Gilman on 05-25-2023 [facility] Work Phone: CBCon 05-24-2023 Basophils/100 WBC (Bld) 1 % Normal 0.0-2.0 [facility] Comment on above: Performed By: #### U GERARDO, RTOX, UMAC #### Testing performed at [address] [address] DTYPE AUTO DIFF Normal [facility] Comment on above: Performed By: #### U GERARDO, RTOX, UMAC #### Testing performed at [address] [address] Eosinophils/100 WBC (Bld) 5 % Normal 0.0-11.0 [facility] Comment on above: Performed By: #### U GERARDO, RTOX, UMAC #### Testing performed at [address] [address] Lymphocytes/100 WBC (Bld) 19 % Low 20.0-55.0 [facility] Comment on above: Performed By: #### U GERARDO, RTOX, UMAC #### Testing performed at [address] [address] Monocytes/100 WBC (Bld) 8 % Normal 0.0-10.0 [facility] Comment on above: Performed By: #### U GERARDO, RTOX, UMAC #### Testing performed at [address] [address] Neutrophils/100 WBC (Bld) 67 % Normal 37.0-75.0 [facility] Comment on above: Performed By: #### U GERARDO, RTOX, UMAC #### Testing performed at [address] [place] [address] Erythrocyte distribution width (RBC) [Ratio] 13.4 % Normal 11.5-14.5 [facility] Comment on above: Performed By: #### U GERARDO, RTOX, UMAC #### Testing performed at [address] [place] [address] Hematocrit (Bld) [Volume fraction] 44.4 % Normal 36.0-48.0 [facility] Comment on above: Performed By: #### U GERARDO, RTOX, UMAC #### Testing performed at [address] [address] Hemoglobin (Bld) [Mass/Vol] 14.9 g/dL Normal 12.0-16.0 [facility] Comment on above: Performed By: #### U GERARDO, RTOX, UMAC #### Testing performed at [address] [address] MCH (RBC) [Entitic mass] 30.5 pg Normal 26.0-35.0 [facility] Comment on above: Performed By: #### U GERARDO, RTOX, UMAC #### Testing performed at [address] [address] MCHC (RBC) [Mass/Vol] 33.4 g/dL Normal 27.0-37.0 [facility] Comment on above: Performed By: #### U GERARDO, RTOX, UMAC #### Testing performed at [address] [address] MCV (RBC) [Entitic vol] 91.1 fL Normal 80.0-100.0 [facility] Comment on above: Performed By: #### U GERARDO, RTOX, UMAC #### Testing performed at [address] [address] Platelet mean volume (Bld) [Entitic vol] 9.1 fL Normal 7.4-11.0 [facility] Comment on above: Performed By: #### U GERARDO, RTOX, UMAC #### Testing performed at [address] [address] Platelets (Bld) [#/Vol] 107 10*3/uL Low 130-400 [facility] Comment on above: Performed By: #### U GERARDO, RTOX, UMAC #### Testing performed at [address] [address] RBC (Bld) [#/Vol] 4.87 10*6/uL Normal 4.0-5.4 [facility] Comment on above: Performed By: #### U GERARDO, RTOX, UMAC #### Testing performed at [address] [address] WBC (Bld) [#/Vol] 4.5 10*3/uL Normal 3.6-11.0 [facility] Comment on above: Performed By: #### U GERARDO, RTOX, UMAC #### Testing performed at [facility] [address] [place] [address] CBC, EDIF, PLATELETon 2022 Basophils/100 WBC (Bld) 1 % 0.0 - 2.0 % [facility] Differential cell count method Nom (Bld) AUTO DIFF % [facility] Eosinophils/100 WBC (Bld) 5 % 0.0 - 11.0 % [facility] Erythrocyte distribution width (RBC) [Ratio] 13.4 % 11.5 - 14.5 % [facility] Hematocrit (Bld) [Volume fraction] 44.4 % 36.0 - 48.0 % [facility] Hemoglobin (Bld) [Mass/Vol] 14.9 g/dL [facility] Interpretation and review of laboratory results Abnormal [facility] Lymphocytes/100 WBC (Bld) 19 % Low 20.0 - 55.0 % [facility] MCH (RBC) [Entitic mass] 30.5 pg 26.0 - 35.0 PG [facility] MCHC (RBC) [Mass/Vol] 33.4 g/dL [facility] MCV (RBC) [Entitic vol] 91.1 fL [facility] Monocytes/100 WBC (Bld) 8 % 0.0 - 10.0 % [facility] Neutrophils/100 WBC (Bld) 67 % 37.0 - 75.0 % [facility] Platelet mean volume (Bld) [Entitic vol] 9.1 fL [facility] Platelets (Bld) [#/Vol] 107 10*3/uL Low 130 - 400 10*3/uL [facility] RBC (Bld) [#/Vol] 4.87 10*6/uL 4.0 - 5.4 10*6/uL [facility] WBC (Bld) [#/Vol] 4.5 10*3/uL 3.6 - 11.0 10*3/uL [facility] CMP FASTINGon 05-24-2023 A:G RATIO 1.8 RATIO Normal [facility] Comment on above: Performed By: #### U GERARDO, RTOX, UMAC #### Testing performed at [address] [address] ALBUMIN 4.0 G/dl Normal 3.5-5.0 [facility] Comment on above: Performed By: #### U GERARDO, RTOX, UMAC #### Testing performed at [address] [address] ALP [Catalytic activity/Vol] 81 U/L Normal 38-126 [facility] Comment on above: Performed By: #### U GERARDO, RTOX, UMAC #### Testing performed at [address] [address] ALT [Catalytic activity/Vol] 55 U/L High <35 [facility] Comment on above: Performed By: #### U GERARDO, RTOX, UMAC #### Testing performed at [address] [address] AST [Catalytic activity/Vol] 44 U/L High 14-36 [facility] Comment on above: Performed By: #### U GERARDO, RTOX, UMAC #### Testing performed at [address] [address] Bilirubin [Mass/Vol] 1.2 mg/dL Normal 0.2-1.3 [facility] Comment on above: Performed By: #### U GERARDO, RTOX, UMAC #### Testing performed at [address] [address] Calcium [Mass/Vol] 9.1 mg/dL Normal 8.4-10.2 [facility] Comment on above: Performed By: #### U GERARDO, RTOX, UMAC #### Testing performed at [address] [address] Chloride [Moles/Vol] 104 mmol/L Normal 98-107 [facility] Comment on above: Result Comment: Hilary diaz note: Triglyceride levels of 600mg/dL or higher may positively bias chloride results by approximately 2.1 mmol Performed By: #### U GERARDO, RTOX, UMAC #### Testing performed at [address] [address] CO2 [Moles/Vol] 26 mmol/L Normal 22-30 [facility] Comment on above: Performed By: #### U GERARDO, RTOX, UMAC #### Testing performed at [address] [address] Creatinine [Mass/Vol] 0.85 mg/dL Normal 0.70-1.20 [facility] Comment on above: Performed By: #### U GERARDO, RTOX, UMAC #### Testing performed at [address] [address] EST. GFR, 87 ml/min/1.73sq.m [facility] Comment on above: Performed By: #### U GERARDO, RTOX, UMAC #### Testing performed at [address] [address] EST. GFR,Non 72 ml/min/1.73sq.m [facility] Comment on above: Performed By: #### U GERARDO, RTOX, UMAC #### Testing performed at [address] [address] GFR Information Average GFR for 60-6 9 years old = 85. Normal [facility] Comment on above: Result Comment: [employer] romelia Kidney disease, GFR = <60. Kidney failure, GFR = <15. The GFR estimate is not adjusted for extreme body surface area or acute process, nor has it been validated for women or ethnic groups other than and . Performed By: #### U GERARDO, RTOX, UMAC #### Testing performed at [address] [address] Glucose [Mass/Vol] 137 mg/dL High 70-100 [facility] Comment on above: Result Comment: NORMAL <100 mg/dL PREDIABETES 101-126 mg/dL DIABETES 126 mg/dL or higher Performed By: #### U GERARDO, RTOX, UMAC #### Testing performed at [address] [address] Potassium [Moles/Vol] 3.6 mmol/L Normal 3.5-5.1 [facility] Comment on above: Performed By: #### U GERARDO, RTOX, UMAC #### Testing performed at [address] [address] Protein [Mass/Vol] 6.2 g/dL Low 6.3-8.2 [facility] Comment on above: Performed By: #### U GERARDO, RTOX, UMAC #### Testing performed at [address] [address] Sodium [Moles/Vol] 137 mmol/L Normal 137-145 [facility] Comment on above: Performed By: #### U GERARDO, RTOX, UMAC #### Testing performed at [address] [address] Urea nitrogen [Mass/Vol] 17 mg/dL Normal 7-20 [facility] Comment on above: Performed By: #### U GERARDO, RTOX, UMAC #### Testing performed at [address] [address] COMPREHENSIVE METABOLIC PANE José 05-24-2023 Albumin [Mass/Vol] 4.0 G/dl 3.5 - 5.0 G/dl [facility] Albumin/Globulin [Mass ratio] 1.8 {ratio} RATIO [facility] ALP [Catalytic activity/Vol] 81 U/L [facility] ALT [Catalytic activity/Vol] 55 U/L High NINF [facility] AST [Catalytic activity/Vol] 44 U/L High [facility] Bilirubin [Mass/Vol] 1.2 mg/dL [facility] Calcium [Mass/Vol] 9.1 mg/dL [facility] Chloride [Moles/Vol] 104 mmol/L [facility] Comment on above: Please note: Triglyc eride levels of 600mg/dL or higher may positively bias chloride results by approximately 2.1 mmol CO2 [Moles/Vol] 26 mmol/L [facility] Creatinine [Mass/Vol] 0.85 mg/dL [facility] GFR COMMENT Average GFR for 60-6 9 years old = 85. [facility] Comment on above: Chronic Kidney disea se, GFR = <60. Kidney failure, GFR = <15. The GFR estimate is not adjusted for extreme body surface area or acute process, nor has it been validated for women or ethnic groups other than and . GFR/1.73 sq M.predicted among blacks MDRD (S/P/Bld) [Vol rate/Area] 87 mL/min/{1.73_m2} ml/min/1.73s q.m [facility] GFR/1.73 sq M.predicted among non-blacks MDRD (S/P/Bld) [Vol rate/Area] 72 mL/min/{1.73_m2} ml/min/1.73s q.m [facility] Glucose post fast [Mass/Vol] 137 mg/dL High [facility] Comment on above: NORMAL <100 mg/dL PREDIABETES 101-126 mg/dL DIABETES 126 mg/dL or higher Potassium [Moles/Vol] 3.6 mmol/L [facility] Protein [Mass/Vol] 6.2 g/dL Low [facility] Sodium [Moles/Vol] 137 mmol/L [facility] Urea nitrogen [Mass/Vol] 17 mg/dL [facility] CORTISOLon 05-24-2023 CORTISOL 4.4 [facility] Comment on above: Result Comment: Refe rence range: 6.2 to 19.4 Unit: ug/dL (NOTE) Please Note: The reference interval and flagging for this test is for an AM collection. If this is a PM collection please use: Cortisol PM: 2.3-11.9 PERFORMED AT [facility] Performed By: #### U GERARDO, RTOX, UMAC #### Testing performed at [address] [address] Cortisol [Mass/Vol] 4.4 ug/dL [facility] Comment on above: Reference range: 6.2 to 19.4 Unit: ug/dL (NOTE) Please Note: The reference interval and flagging for this test is for an AM collection. If this is a PM collection please use: Cortisol PM: 2.3-11.9 [facility] Interpretation and review of laboratory results Abnormal [facility] MAGNESIUMon 05-24-2023 Magnesium [Mass/Vol] 2.1 mg/dL Normal 1.6-2.3 [facility] Comment on above: Performed By: #### U GERARDO, RTOX, UMAC #### Testing performed at [address] [address] Magnesium [Mass/Vol] 2.1 mg/dL [facility] No Panel Informationon 05-24 Interpretation and review of laboratory results Abnormal [facility] PHOSPHATE, INORGANICon 05-24 Phosphate [Mass/Vol] 5.9 mg/dL High [facility] PHOSPHOROUSon 05-24-2023 PHOSPHOROUS 5.9 MG/DL High 2.5-4.5 [facility] Comment on above: Performed By: #### U GERARDO, RTOX, UMAC #### Testing performed at [address] [address] 25 0H VITAMIN D LEVELon 25 0H VITAMIN D LEVEL 36.3 NG/ML Normal [facility] Comment on above: Result Comment: DEFICIENT <20 NG/ML INSUFFICIENT 20-<30 NG/ML SUFFICIENT 30-100 NG/ML POTENTIAL TOXICITY >100 NG/ML Performed By: #### V ITD ####Testing performed at [address] [place] [address] CBCon 05-23-2023 ABSOLUTE BAS 0.0 10*3/uL Normal 0.0-0.2 [facility] Comment on above: Performed By: #### U GERARDO, RTOX, UMAC #### Testing performed at [address] [address] ABSOLUTE EOS 0.3 10*3/uL Normal 0.0-0.7 [facility] Comment on above: Performed By: #### U GERARDO, RTOX, UMAC #### Testing performed at [address] [address] ABSOLUTE NEUTROPHIL COUNT 2.5 10*3/uL Normal 1.4-6.5 [facility] Comment on above: Performed By: #### U GERARDO, RTOX, UMAC #### Testing performed at [address] [address] Basophils/100 WBC (Bld) 1.1 % Normal 0.0-2.0 [facility] Comment on above: Performed By: #### U GERARDO, RTOX, UMAC #### Testing performed at [address] [address] DTYPE AUTO DIFF Normal [facility] Comment on above: Performed By: #### U GERARDO, RTOX, UMAC #### Testing performed at [address] [address] Eosinophils/100 WBC (Bld) 6.6 % Normal 0.0-11.0 [facility] Comment on above: Performed By: #### U GERARDO, RTOX, UMAC #### Testing performed at [address] [address] Lymphocytes (Bld) [#/Vol] 1.2 10*3/uL Normal 1.2-3.4 [facility] Comment on above: Performed By: #### U GERARDO, RTOX, UMAC #### Testing performed at [address] [address] Lymphocytes/100 WBC (Bld) 27.6 % Normal 20.0-55.0 [facility] Comment on above: Performed By: #### U GERARDO, RTOX, UMAC #### Testing performed at [address] [address] Monocytes (Bld) [#/Vol] 0.3 10*3/uL Normal 0.0-0.7 [facility] Comment on above: Performed By: #### U GERARDO, RTOX, UMAC #### Testing performed at [address] [address] Monocytes/100 WBC (Bld) 7.6 % Normal 0.0-10.0 [facility] Comment on above: Performed By: #### U GERARDO, RTOX, UMAC #### Testing performed at [address] [address] Neutrophils/100 WBC (Bld) 57.1 % Normal 37.0-75.0 [facility] Comment on above: Performed By: #### U GERARDO, RTOX, UMAC #### Testing performed at [address] [address] Erythrocyte distribution width (RBC) [Ratio] 13.0 % Normal 11.5-14.5 [facility] Comment on above: Performed By: #### U GERARDO, RTOX, UMAC #### Testing performed at [address] [address] Hematocrit (Bld) [Volume fraction] 42.2 % Normal 36.0-48.0 [facility] Comment on above: Performed By: #### U GERARDO, RTOX, UMAC #### Testing performed at [address] [address] Hemoglobin (Bld) [Mass/Vol] 14.5 g/dL Normal 12.0-16.0 [facility] Comment on above: Performed By: #### U GERARDO, RTOX, UMAC #### Testing performed at [address] [address] MCH (RBC) [Entitic mass] 31.1 pg Normal 26.0-35.0 [facility] Comment on above: Performed By: #### U GERARDO, RTOX, UMAC #### Testing performed at [address] [address] MCHC (RBC) [Mass/Vol] 34.4 g/dL Normal 27.0-37.0 [facility] Comment on above: Performed By: #### U GERARDO, RTOX, UMAC #### Testing performed at [address] [address] MCV (RBC) [Entitic vol] 90.4 fL Normal 80.0-100.0 [facility] Comment on above: Performed By: #### U GERARDO, RTOX, UMAC #### Testing performed at [address] [address] Platelet mean volume (Bld) [Entitic vol] 9.3 fL Normal 7.4-11.0 [facility] Comment on above: Performed By: #### U GERARDO, RTOX, UMAC #### Testing performed at [address] [address] Platelets (Bld) [#/Vol] 109 10*3/uL Low 130-400 [facility] Comment on above: Performed By: #### U GERARDO, RTOX, UMAC #### Testing performed at [address] [address] RBC (Bld) [#/Vol] 4.67 10*6/uL Normal 4.0-5.4 [facility] Comment on above: Performed By: #### U GERARDO, RTOX, UMAC #### Testing performed at [facility] [address] [place] [address] WBC (Bld) [#/Vol] 4.3 10*3/uL Normal 3.6-11.0 [facility] Comment on above: Performed By: #### U GERARDO, RTOX, UMAC #### Testing performed at [address] [address] CBC, EDIF, PLATELETon 2022 ABSOLUTE BASOPHIL COUNT 0.0 10*3/uL 0.0 - 0.2 10*3/uL [facility] Basophils/100 WBC (Bld) 1.1 % 0.0 - 2.0 % [facility] Differential cell count method Nom (Bld) AUTO DIFF % [facility] Eosinophils (Bld) [#/Vol] 0.3 10*3/uL 0.0 - 0.7 10*3/uL [facility] Eosinophils/100 WBC (Bld) 6.6 % 0.0 - 11.0 % [facility] Erythrocyte distribution width (RBC) [Ratio] 13.0 % 11.5 - 14.5 % [facility] Hematocrit (Bld) [Volume fraction] 42.2 % 36.0 - 48.0 % [facility] Hemoglobin (Bld) [Mass/Vol] 14.5 g/dL [facility] Interpretation and review of laboratory results Abnormal [facility] Lymphocytes (Bld) [#/Vol] 1.2 10*3/uL 1.2 - 3.4 10*3/uL [facility] Lymphocytes/100 WBC (Bld) 27.6 % 20.0 - 55.0 % [facility] MCH (RBC) [Entitic mass] 31.1 pg 26.0 - 35.0 PG [facility] MCHC (RBC) [Mass/Vol] 34.4 g/dL [facility] MCV (RBC) [Entitic vol] 90.4 fL A [facility] Monocytes (Bld) [#/Vol] 0.3 10*3/uL 0.0 - 0.7 10*3/uL [facility] Monocytes/100 WBC (Bld) 7.6 % 0.0 - 10.0 % [facility] Neutrophils (Bld) [#/Vol] 2.5 10*3/uL 1.4 - 6.5 10*3/uL [facility] Neutrophils/100 WBC (Bld) 57.1 % 37.0 - 75.0 % [facility] Platelet mean volume (Bld) [Entitic vol] 9.3 fL [facility] Platelets (Bld) [#/Vol] 109 10*3/uL Low 130 - 400 10*3/uL [facility] RBC (Bld) [#/Vol] 4.67 10*6/uL 4.0 - 5.4 10*6/uL [facility] WBC (Bld) [#/Vol] 4.3 10*3/uL 3.6 - 11.0 10*3/uL [facility] CMP FASTINGon 05-23-2023 A:G RATIO 2.0 RATIO Normal [facility] Comment on above: Performed By: #### U GERARDO, RTOX, UMAC #### Testing performed at [address] [address] ALBUMIN 4.3 G/dl Normal 3.5-5.0 [facility] Comment on above: Performed By: #### U GERARDO, RTOX, UMAC #### Testing performed at [address] [address] ALP [Catalytic activity/Vol] 94 U/L Normal 38-126 [facility] Comment on above: Performed By: #### U GERARDO, RTOX, UMAC #### Testing performed at [address] [address] ALT [Catalytic activity/Vol] 57 U/L High <35 [facility] Comment on above: Performed By: #### U GERARDO, RTOX, UMAC #### Testing performed at [address] [address] AST [Catalytic activity/Vol] 48 U/L High 14-36 [facility] Comment on above: Performed By: #### U GERARDO, RTOX, UMAC #### Testing performed at [address] [address] Bilirubin [Mass/Vol] 0.9 mg/dL Normal 0.2-1.3 [facility] Comment on above: Performed By: #### U GERARDO, RTOX, UMAC #### Testing performed at [place] [id number] Calcium [Mass/Vol] 8.9 mg/dL Normal 8.4-10.2 [facility] Comment on above: Performed By: #### U GERARDO, RTOX, UMAC #### Testing performed at [place] [id number] Chloride [Moles/Vol] 106 mmol/L Normal 98-107 [facility] Comment on above: Result Comment: Hilary diaz note: Triglyceride levels of 600mg/dL or higher may positively bias chloride results by approximately 2.1 mmol Performed By: #### U GERARDO, RTOX, UMAC #### [place] [address] CO2 [Moles/Vol] 25 mmol/L Normal 22-30 [facility] Comment on above: Performed By: #### U GERARDO, RTOX, UMAC #### [place] [address] Creatinine [Mass/Vol] 0.70 mg/dL Normal 0.70-1.20 [facility] Comment on above: Performed By: #### U GERARDO, RTOX, UMAC #### Testing performed at [address] [address] EST. GFR, 109 ml/min/1.73sq.m [facility] Comment on above: Performed By: #### U GERARDO, RTOX, UMAC #### Testing performed at [place] [id number] EST. GFR,Non 90 ml/min/1.73sq.m [facility] Comment on above: Performed By: #### U GERARDO, RTOX, UMAC #### [place] [address] GFR Information Average GFR for 60-6 9 years old = 85. [facility] Comment on above: Result Comment: [employer] romelia Kidney disease, GFR = <60. Kidney failure, GFR = <15. The GFR estimate is not adjusted for extreme body surface area or acute process, nor has it been validated for women or ethnic groups other than and . Performed By: #### U GERARDO, RTOX, UMAC #### Testing performed at [address] [address] Glucose [Mass/Vol] 115 mg/dL High 70-100 [facility] Comment on above: Result Comment: NORMAL <100 mg/dL PREDIABETES 101-126 mg/dL DIABETES 126 mg/dL or higher Performed By: #### U GERARDO, RTOX, UMAC #### Testing performed at [address] [address] Potassium [Moles/Vol] 3.6 mmol/L Normal 3.5-5.1 [facility] Comment on above: Performed By: #### U GERARDO, RTOX, UMAC #### Testing performed at [address] [address] Protein [Mass/Vol] 6.5 g/dL Normal 6.3-8.2 [facility] Comment on above: Performed By: #### U GERARDO, RTOX, UMAC #### Testing performed at [address] [address] Sodium [Moles/Vol] 142 mmol/L Normal 137-145 [facility] Comment on above: Performed By: #### U GERARDO, RTOX, UMAC #### Testing performed at [address] [address] Urea nitrogen [Mass/Vol] 16 mg/dL Normal 7-20 [facility] Comment on above: Performed By: #### U GERARDO, RTOX, UMAC #### Testing performed at [address] [address] COMPREHENSIVE METABOLIC PANE José 05-23-2023 Albumin [Mass/Vol] 4.3 G/dl 3.5 - 5.0 G/dl [facility] Albumin/Globulin [Mass ratio] 2.0 {ratio} RATIO [facility] ALP [Catalytic activity/Vol] 94 U/L [facility] ALT [Catalytic activity/Vol] 57 U/L High NINF [facility] AST [Catalytic activity/Vol] 48 U/L High [facility] Bilirubin [Mass/Vol] 0.9 mg/dL [facility] Calcium [Mass/Vol] 8.9 mg/dL [facility] Chloride [Moles/Vol] 106 mmol/L [facility] Comment on above: Please note: Triglyc eride levels of 600mg/dL or higher may positively bias chloride results by approximately 2.1 mmol CO2 [Moles/Vol] 25 mmol/L [facility] Creatinine [Mass/Vol] 0.70 mg/dL [facility] GFR COMMENT Average GFR for 60-6 9 years old = 85. [facility] Comment on above: Chronic Kidney disea se, GFR = <60. Kidney failure, GFR = <15. The GFR estimate is not adjusted for extreme body surface area or acute process, nor has it been validated for women or ethnic groups other than and . GFR/1.73 sq M.predicted among blacks MDRD (S/P/Bld) [Vol rate/Area] 109 mL/min/{1.73_m2} ml/min/1.73s q.m [facility] GFR/1.73 sq M.predicted among non-blacks MDRD (S/P/Bld) [Vol rate/Area] 90 mL/min/{1.73_m2} ml/min/1.73s q.m [facility] Glucose post fast [Mass/Vol] 115 mg/dL High [facility] Comment on above: NORMAL <100 mg/dL PREDIABETES 101-126 mg/dL DIABETES 126 mg/dL or higher Interpretation and review of laboratory results Abnormal [facility] Potassium [Moles/Vol] 3.6 mmol/L [facility] Protein [Mass/Vol] 6.5 g/dL [facility] Sodium [Moles/Vol] 142 mmol/L [facility] Urea nitrogen [Mass/Vol] 16 mg/dL [facility] HEMOGLOBIN A1Con 05-23-2023 Glucose [Mass/Vol] 97 mg/dL Normal [facility] Comment on above: Performed By: #### U GERARDO, RTOX, UMAC #### Testing performed at [place] [address] [place] [address] HbA1c (Bld) [Mass fraction] 5.0 % Normal 0-6 [facility] Comment on above: Result Comment: NORMAL <5.7% PREDIABETES 5.7-6.4% DIABETES 6.5% OR HIGHER Performed By: #### U GERARDO, RTOX, UMAC #### Testing performed at [address] [address] Glucose [Mass/Vol] 97 mg/dL [facility] HbA1c (Bld) [Mass fraction] 5.0 % 0 - 6 % [facility] Comment on above: NORMAL <5.7% PREDIABETES 5.7-6.4% DIABETES 6.5% OR HIGHER [facility] LIPID PANEL W CALCULATED LDL on 05-23-2023 Cholesterol [Mass/Vol] 228 mg/dL High [facility] Cholesterol in HDL [Mass/Vol] 43 mg/dL [facility] Cholesterol in LDL [Mass/Vol] 159 mg/dL MG/DL [facility] Cholesterol in VLDL [Mass/Vol] 26 mg/dL MG/DL [facility] Cholesterol.total/Carrie sterol in HDL [Mass ratio] 5.30 {ratio} RATIO [facility] Comment on above: RISK TOTAL/HDL RATIO MEN WOMEN 1/2 AVERAGE 3.43 3.27 AVERAGE 4.97 4.44 2X AVERAGE 9.55 7.05 3X AVERAGE 23.99 11.04 Interpretation and review of laboratory results Abnormal [facility] Triglyceride [Mass/Vol] 128 mg/dL A [facility] LIPID PROFILEon 05-23-2023 Cholesterol [Mass/Vol] 228 mg/dL High 107-217 [facility] Comment on above: Performed By: #### L IP2 #### Testing performed at [address] [address] Cholesterol in HDL [Mass/Vol] 43 mg/dL Normal 33-75 [facility] Comment on above: Performed By: #### L IP2 #### Testing performed at [address] [address] Cholesterol in LDL [Mass/Vol] 159 mg/dL Normal [facility] Comment on above: Performed By: #### L IP2 #### Testing performed at [address] [address] Cholesterol in VLDL [Mass/Vol] 26 mg/dL Normal [facility] Comment on above: Performed By: #### L IP2 #### Testing performed at [address] [address] Cholesterol.total/Carrie sterol in HDL [Mass ratio] 5.30 {ratio} Normal [facility] Comment on above: Result Comment: RISK TOTAL/HDL RATIO MEN WOMEN 1/2 AVERAGE 3.43 3.27 AVERAGE 4.97 4.44 2X AVERAGE 9.55 7.05 3X AVERAGE 23.99 11.04 Performed By: #### L IP2 #### Testing performed at [place] [id number] Triglyceride [Mass/Vol] 128 mg/dL Normal 0-150 [facility] Comment on above: Performed By: #### L IP2 #### Testing performed at [place] [id number] MAGNESIUMon 05-23-2023 Magnesium [Mass/Vol] 2.2 mg/dL Normal 1.6-2.3 [facility] Comment on above: Performed By: #### U GERARDO, RTOX, UMAC #### Testing performed at [place] [id number] Magnesium [Mass/Vol] 2.2 mg/dL [facility] MRSA SCREENon 05-23-2023 MRSA DNA KRANTHI+probe Ql (Unsp spec) Negative Normal NEGATIVE [facility] Comment on above: Performed By: #### M RSAST #### Testing performed at [address] [address] STAPH AUREUS SCREEN Positive Abnormal NEGATIVE [facility] Comment on above: Result Comment: TEST ING PERFORMED BY PCR Performed By: #### M RSAST #### Testing performed at [address] [address] No Panel Informationon 05-23 [facility] PHOSPHATE, INORGANICon 05-23 Interpretation and review of laboratory results Abnormal [facility] Phosphate [Mass/Vol] 6.2 mg/dL High [facility] PHOSPHOROUSon 05-23-2023 PHOSPHOROUS 6.2 MG/DL High 2.5-4.5 [facility] Comment on above: Performed By: #### U GERARDO, RTOX, UMAC #### Testing performed at [address] [address] PROTIMEon 05-23-2023 INR Coag (PPP) [Relative time] 0.94 {INR} Normal 0.85-1.10 [facility] Comment on above: Result Comment: 2.0-3.0 THERAPEUTIC RANGE 2.5-3.5 MECHANICAL VALVE RANGE Performed By: #### U GERARDO, RTOX, UMAC #### Testing performed at [address] [address] PT Coag (PPP) [Time] 12.7 s Normal 11.8-14.4 [facility] Comment on above: Performed By: #### U GERARDO, RTOX, UMAC #### Testing performed at [address] [address] PROTIME-INRon 05-23-2023 INR Coag (PPP) [Relative time] 0.94 {INR} 0.85 - 1.10 [facility] Comment on above: 2.0-3.0 THERAPEUTIC RANGE 2.5-3.5 MECHANICAL VALVE RANGE PT Coag (PPP) [Time] 12.7 s [facility] SCREEN: MRSA ONLY, NARES (IS OLATION SCREEN)on 05-23-2023 Interpretation and review of laboratory results Abnormal [facility] MRSA isol Org specific cx Ql (Nose) Negative NEGATIVE [facility] STAPHYOCOCCUS AUREUS BY PCR Positive Abnormal NEGATIVE [facility] Comment on above: TESTING PERFORMED BY PCR [facility] SODIUM, RANDOM URINEon 05-23 Sodium (U) [Moles/Vol] 53 mmol/L [facility] TROPONIN I, HIGH SENSITIVITY on 05-23-2023 TROPONIN I, HIGH SENSITIVITY 8 pg/mL Normal 0-12 [facility] Comment on above: Result Comment: Indeterminant: >12 to 100 pg/mL female >20 to 100 pg/mL male Indicative of myocardial injury. Serial sampling is recommended, a change of greater than or equal to 20 pg/mL is indicative of acute coronary syndrome. Performed By: #### L ACTH #### Testing performed at [facility] [address] [place] [address] [place] [address] TROPONIN I, HIGH SENSITIVITY 8 pg/mL 0 - 12 pg/mL [facility] Comment on above: Indeterminant: >12 to 100 pg/mL female >20 to 100 pg/mL male Indicative of myocardial injury. Serial sampling is recommended, a change of greater than or equal to 20 pg/mL is indicative of acute coronary syndrome. [facility] TROPONIN I, HIGH SENSITIVITY 6 pg/mL Normal 0-12 [facility] Comment on above: Result Comment: Indeterminant: >12 to 100 pg/mL female >20 to 100 pg/mL male Indicative of myocardial injury. Serial sampling is recommended, a change of greater than or equal to 20 pg/mL is indicative of acute coronary syndrome. Performed By: #### T ROHS ####Testing performed at [facility] [place] [address] TSH W/FT4 REFLEXon 3 TSH Qn 1.970 m[IU]/L [facility] TSH,REFLEX FREE T4on 023 TSH,REFLEX FREE T4 1.970 uIU/ML Normal 0.465-4.680 [facility] Comment on above: Performed By: #### U GERARDO, RTOX, UMAC #### Testing performed at [address] [address] URINALYSIS, MACROon 05-23-20 23 Bilirubin Ql (U) Negative NEGATIVE [facility] Clarity (U) CLEAR CLEAR [facility] Color (U) YELLOW YELLOW [facility] Glucose Test strip (U) [Mass/Vol] Negative NEGATIVE mg/dl [facility] Hemoglobin Ql (U) Negative NEGATIVE [facility] Ketones (U) [Mass/Vol] Negative NEGAT JHONY mg/dl [facility] Leukocyte esterase Test strip Ql (U) Negative NEGATIVE [facility] Nitrite Ql (U) Negative NEGATIVE [facility] pH (U) 5.5 [pH] 5.0 - 7.0 [facility] Protein Ql (U) Negative NEGATIVE mg/dl [facility] Specific gravity (U) [Rel density] 1.020 1.010 - 1.025 [facility] Urobilinogen (U) [Mass/Vol] 0.2 mg/dL [facility] URINE MACROSCOPICon 05-23-20 23 Bilirubin Ql (U) Negative Normal NEGATIVE [facility] Comment on above: Performed By: #### U MAC ####Testing performed at [address] [place] [address] Clarity (U) CLEAR Normal CLEAR [facility] Comment on above: Performed By: #### U MAC ####Testing performed at [address] [place] [address] Color (U) YELLOW Normal YELLOW [facility] Comment on above: Performed By: #### U MAC ####Testing performed at [address] [place] [address] Glucose Ql (U) Negative Normal NEGATIVE [facility] Comment on above: Performed By: #### U MAC ####Testing performed at [address] [address] pH (U) 5.5 [pH] Normal 5.0-7.0 [facility] Comment on above: Performed By: #### U MAC ####Testing performed at [address] [address] URINE HEMOGLOBIN Negative Normal NEGATIVE [facility] Comment on above: Performed By: #### U MAC ####Testing performed at [address] [place] [address] URINE KETONE Negative Normal NEGATIVE [facility] Comment on above: Performed By: #### U MAC ####Testing performed at [address] [place] [address] URINE LEUKOTEST Negative Normal NEGATIVE [facility] Comment on above: Performed By: #### U MAC ####Testing performed at [address] [place] [address] URINE NITRATES Negative Normal NEGATIVE [facility] Comment on above: Performed By: #### U MAC ####Testing performed at [address] [address] URINE SPEC GRAVITY 1.020 Normal 1.010-1.025 [facility] Comment on above: Performed By: #### U MAC ####Testing performed at [address] [address] URINE TOTAL PROTEIN Negative Normal NEGATIVE [facility] Comment on above: Performed By: #### U MAC ####Testing performed at [address] [address] Urobilinogen Qn (U) 0.2 {Samuel'U}/dL Normal 0.2-1.0 [facility] Comment on above: Performed By: #### U MAC ####Testing performed at [address] [address] URINE SODIUM RANDOMon 2022 Sodium (U) [Moles/Vol] 53 mmol/L Normal 30-90 [facility] Comment on above: Performed By: #### L ACTH #### Testing performed at [facility] [address] [place] [address] [place] [address] US Renal arteryon 05-23-2023 Radiology Study observation (narrative) [facility] VITAMIN D (25-HYDROXY,TOTAL) on 05-23-2023 25-hydroxyvitamin D [Mass/Vol] 36.3 NG/ML [facility] Comment on above: DEFICIENT <20 NG/ML INSUFFICIENT 20-<30 NG/ML SUFFICIENT 30-100 NG/ML POTENTIAL TOXICITY >100 NG/ML [facility] B TYPE NATRIURETIC PEPTIDEon 05-22-2023 Natriuretic peptide B (Bld) [Mass/Vol] 89 pg/mL Normal [facility] Comment on above: Performed By: #### U GERARDO, RTOX, UMAC #### Testing performed at [address] [address] B-TYPE NATRIURETIC PEPTIDE ( BRAIN)on 05-22-2023 Natriuretic peptide B (Bld) [Mass/Vol] 89 pg/mL [facility] CBCon 05-22-2023 ABSOLUTE BAS 0.0 10*3/uL Normal 0.0-0.2 [facility] Comment on above: Performed By: #### U GERARDO, RTOX, UMAC #### Testing performed at [address] [address] ABSOLUTE EOS 0.3 10*3/uL Normal 0.0-0.7 [facility] Comment on above: Performed By: #### U GERARDO, RTOX, UMAC #### Testing performed at [address] [address] ABSOLUTE NEUTROPHIL COUNT 3.4 10*3/uL Normal 1.4-6.5 [facility] Comment on above: Performed By: #### U GERARDO, RTOX, UMAC #### Testing performed at [address] [address] Basophils/100 WBC (Bld) 0.6 % Normal 0.0-2.0 [facility] Comment on above: Performed By: #### U GERARDO, RTOX, UMAC #### Testing performed at [address] [address] DTYPE AUTO DIFF Normal [facility] Comment on above: Performed By: #### U GERARDO, RTOX, UMAC #### Testing performed at [address] [address] Eosinophils/100 WBC (Bld) 6.2 % Normal 0.0-11.0 [facility] Comment on above: Performed By: #### U GERARDO, RTOX, UMAC #### Testing performed at [address] [address] Lymphocytes (Bld) [#/Vol] 1.0 10*3/uL Low 1.2-3.4 [facility] Comment on above: Performed By: #### U GERARDO, RTOX, UMAC #### Testing performed at [address] [address] Lymphocytes/100 WBC (Bld) 20.0 % Normal 20.0-55.0 [facility] Comment on above: Performed By: #### U GERARDO, RTOX, UMAC #### Testing performed at [address] [address] Monocytes (Bld) [#/Vol] 0.3 10*3/uL Normal 0.0-0.7 [facility] Comment on above: Performed By: #### U GERARDO, RTOX, UMAC #### Testing performed at [address] [address] Monocytes/100 WBC (Bld) 5.7 % Normal 0.0-10.0 [facility] Comment on above: Performed By: #### U GERARDO, RTOX, UMAC #### Testing performed at [address] [address] Neutrophils/100 WBC (Bld) 67.5 % Normal 37.0-75.0 [facility] Comment on above: Performed By: #### U GERARDO, RTOX, UMAC #### Testing performed at [address] [address] Erythrocyte distribution width (RBC) [Ratio] 13.2 % Normal 11.5-14.5 [facility] Comment on above: Performed By: #### U GERARDO, RTOX, UMAC #### Testing performed at [address] [address] Hematocrit (Bld) [Volume fraction] 41.6 % Normal 36.0-48.0 [facility] Comment on above: Performed By: #### U GERARDO, RTOX, UMAC #### Testing performed at [address] [address] Hemoglobin (Bld) [Mass/Vol] 14.1 g/dL Normal 12.0-16.0 [facility] Comment on above: Performed By: #### U GERARDO, RTOX, UMAC #### Testing performed at [address] [address] MCH (RBC) [Entitic mass] 31.1 pg Normal 26.0-35.0 [facility] Comment on above: Performed By: #### U GERARDO, RTOX, UMAC #### Testing performed at [address] [address] MCHC (RBC) [Mass/Vol] 34.0 g/dL Normal 27.0-37.0 [facility] Comment on above: Performed By: #### U GERARDO, RTOX, UMAC #### Testing performed at [address] [address] MCV (RBC) [Entitic vol] 91.3 fL Normal 80.0-100.0 [facility] Comment on above: Performed By: #### U GERARDO, RTOX, UMAC #### Testing performed at [address] [address] Platelet mean volume (Bld) [Entitic vol] 9.1 fL Normal 7.4-11.0 [facility] Comment on above: Performed By: #### U GERARDO, RTOX, UMAC #### Testing performed at [address] [address] Platelets (Bld) [#/Vol] 110 10*3/uL Low 130-400 [facility] Comment on above: Performed By: #### U GERARDO, RTOX, UMAC #### Testing performed at [address] [address] RBC (Bld) [#/Vol] 4.55 10*6/uL Normal 4.0-5.4 [facility] Comment on above: Performed By: #### U GERARDO, RTOX, UMAC #### Testing performed at [address] [address] WBC (Bld) [#/Vol] 5.1 10*3/uL Normal 3.6-11.0 [facility] Comment on above: Performed By: #### U GERARDO, RTOX, UMAC #### Testing performed at [address] [address] CBC, EDIF, PLATELETon 2022 ABSOLUTE BASOPHIL COUNT 0.0 10*3/uL 0.0 - 0.2 10*3/uL [facility] Basophils/100 WBC (Bld) 0.6 % 0.0 - 2.0 % [facility] Differential cell count method Nom (Bld) AUTO DIFF % [facility] Eosinophils (Bld) [#/Vol] 0.3 10*3/uL 0.0 - 0.7 10*3/uL [facility] Eosinophils/100 WBC (Bld) 6.2 % 0.0 - 11.0 % [facility] Erythrocyte distribution width (RBC) [Ratio] 13.2 % 11.5 - 14.5 % [facility] Hematocrit (Bld) [Volume fraction] 41.6 % 36.0 - 48.0 % [facility] Hemoglobin (Bld) [Mass/Vol] 14.1 g/dL [facility] Interpretation and review of laboratory results Abnormal [facility] Lymphocytes (Bld) [#/Vol] 1.0 10*3/uL Low 1.2 - 3.4 10*3/uL [facility] Lymphocytes/100 WBC (Bld) 20.0 % 20.0 - 55.0 % [facility] MCH (RBC) [Entitic mass] 31.1 pg 26.0 - 35.0 PG [facility] MCHC (RBC) [Mass/Vol] 34.0 g/dL [facility] MCV (RBC) [Entitic vol] 91.3 fL A [facility] Monocytes (Bld) [#/Vol] 0.3 10*3/uL 0.0 - 0.7 10*3/uL [facility] Monocytes/100 WBC (Bld) 5.7 % 0.0 - 10.0 % [facility] Neutrophils (Bld) [#/Vol] 3.4 10*3/uL 1.4 - 6.5 10*3/uL [facility] Neutrophils/100 WBC (Bld) 67.5 % 37.0 - 75.0 % [facility] Platelet mean volume (Bld) [Entitic vol] 9.1 fL [facility] Platelets (Bld) [#/Vol] 110 10*3/uL Low 130 - 400 10*3/uL [facility] RBC (Bld) [#/Vol] 4.55 10*6/uL 4.0 - 5.4 10*6/uL [facility] WBC (Bld) [#/Vol] 5.1 10*3/uL 3.6 - 11.0 10*3/uL [facility] CMP FASTINGon 05-22-2023 A:G RATIO 1.8 RATIO Normal [facility] Comment on above: Performed By: #### U GERARDO, RTOX, UMAC #### Testing performed at [address] [address] ALBUMIN 4.2 G/dl Normal 3.5-5.0 [facility] Comment on above: Performed By: #### U GERARDO, RTOX, UMAC #### Testing performed at [address] [address] ALP [Catalytic activity/Vol] 86 U/L Normal 38-126 [facility] Comment on above: Performed By: #### U GERARDO, RTOX, UMAC #### Testing performed at [address] [address] ALT [Catalytic activity/Vol] 57 U/L High <35 [facility] Comment on above: Performed By: #### U GERARDO, RTOX, UMAC #### Testing performed at [address] [address] AST [Catalytic activity/Vol] 49 U/L High 14-36 [facility] Comment on above: Performed By: #### U GERARDO, RTOX, UMAC #### Testing performed at [address] [address] Bilirubin [Mass/Vol] 0.8 mg/dL Normal 0.2-1.3 [facility] Comment on above: Performed By: #### U GERARDO, RTOX, UMAC #### Testing performed at [address] [address] Calcium [Mass/Vol] 9.0 mg/dL Normal 8.4-10.2 [facility] Comment on above: Performed By: #### U GERARDO, RTOX, UMAC #### Testing performed at [address] [address] Chloride [Moles/Vol] 108 mmol/L High 98-107 [facility] Comment on above: Result Comment: Hilary diaz note: Triglyceride levels of 600mg/dL or higher may positively bias chloride results by approximately 2.1 mmol Performed By: #### U GERARDO, RTOX, UMAC #### Testing performed at [place] [id number] CO2 [Moles/Vol] 27 mmol/L Normal 22-30 [facility] Comment on above: Performed By: #### U GERARDO, RTOX, UMAC #### Testing performed at [address] [address] Creatinine [Mass/Vol] 0.79 mg/dL Normal 0.70-1.20 [facility] Comment on above: Performed By: #### U GERARDO, RTOX, UMAC #### Testing performed at [address] [address] EST. GFR, 95 ml/min/1.73sq.m Normal [facility] Comment on above: Performed By: #### U GERARDO, RTOX, UMAC #### Testing performed at [address] [address] EST. GFR,Non 78 ml/min/1.73sq.m Normal [facility] Comment on above: Performed By: #### U GERARDO, RTOX, UMAC #### Testing performed at [address] [address] GFR Information Average GFR for 60-6 9 years old = 85. Normal [facility] Comment on above: Result Comment: [employer] romelia Kidney disease, GFR = <60. Kidney failure, GFR = <15. The GFR estimate is not adjusted for extreme body surface area or acute process, nor has it been validated for women or ethnic groups other than and . Performed By: #### U GERARDO, RTOX, UMAC #### Testing performed at [address] [address] Glucose [Mass/Vol] 111 mg/dL High 70-100 [facility] Comment on above: Result Comment: NORMAL <100 mg/dL PREDIABETES 101-126 mg/dL DIABETES 126 mg/dL or higher Performed By: #### U GERARDO, RTOX, UMAC #### Testing performed at [address] [address] Potassium [Moles/Vol] 4.3 mmol/L Normal 3.5-5.1 [facility] Comment on above: Performed By: #### U GERARDO, RTOX, UMAC #### Testing performed at [address] [address] Protein [Mass/Vol] 6.5 g/dL Normal 6.3-8.2 [facility] Comment on above: Performed By: #### U GERARDO, RTOX, UMAC #### Testing performed at [address] [address] Sodium [Moles/Vol] 142 mmol/L Normal 137-145 [facility] Comment on above: Performed By: #### U GERARDO, RTOX, UMAC #### Testing performed at [address] [address] Urea nitrogen [Mass/Vol] 20 mg/dL Normal 7-20 [facility] Comment on above: Performed By: #### U GERARDO, RTOX, UMAC #### Testing performed at [facility] [address] [place] [address] COMPREHENSIVE METABOLIC PANE José 05-22-2023 Albumin [Mass/Vol] 4.2 G/dl 3.5 - 5.0 G/dl [facility] Albumin/Globulin [Mass ratio] 1.8 {ratio} RATIO [facility] ALP [Catalytic activity/Vol] 86 U/L [facility] ALT [Catalytic activity/Vol] 57 U/L High NINF [facility] AST [Catalytic activity/Vol] 49 U/L High [facility] Bilirubin [Mass/Vol] 0.8 mg/dL [facility] Calcium [Mass/Vol] 9.0 mg/dL [facility] Chloride [Moles/Vol] 108 mmol/L High [facility] Comment on above: Please note: Triglyc eride levels of 600mg/dL or higher may positively bias chloride results by approximately 2.1 mmol CO2 [Moles/Vol] 27 mmol/L [facility] Creatinine [Mass/Vol] 0.79 mg/dL [facility] GFR COMMENT Average GFR for 60-6 9 years old = 85. [facility] Comment on above: Chronic Kidney disea se, GFR = <60. Kidney failure, GFR = <15. The GFR estimate is not adjusted for extreme body surface area or acute process, nor has it been validated for women or ethnic groups other than and . GFR/1.73 sq M.predicted among blacks MDRD (S/P/Bld) [Vol rate/Area] 95 mL/min/{1.73_m2} ml/min/1.73s q.m [facility] GFR/1.73 sq M.predicted among non-blacks MDRD (S/P/Bld) [Vol rate/Area] 78 mL/min/{1.73_m2} ml/min/1.73s q.m [facility] Glucose post fast [Mass/Vol] 111 mg/dL High [facility] Comment on above: NORMAL <100 mg/dL PREDIABETES 101-126 mg/dL DIABETES 126 mg/dL or higher Interpretation and review of laboratory results Abnormal [facility] Potassium [Moles/Vol] 4.3 mmol/L [facility] Protein [Mass/Vol] 6.5 g/dL [facility] Sodium [Moles/Vol] 142 mmol/L [facility] Urea nitrogen [Mass/Vol] 20 mg/dL [facility] CT HEAD WITHOUT CONTRASTon 0 05-22-2023 CT [...] intracranial hemorrhage or other acute finding. Normal [facility] CT Head WO contraston 2022 IMPRESSION: [...] The visualized paranasal sinuses appear normal. RADIOLOGY IreneMisael cerrato MD - 05/22/2023 CT HEAD WITHOUT CONTRAST: [...] of intracranial hemorrhage or other acute finding. [facility] Radiology Study observation (narrative) [facility] CT Head WO contrastOrdered B y: Misael Bonilla on 05-22-2023 [facility] Work Phone: TROPONIN I, HIGH SENSITIVITY on 05-22-2023 TROPONIN I, HIGH SENSITIVITY 6 pg/mL 0 - 12 pg/mL [facility] Comment on above: Indeterminant: >12 to 100 pg/mL female >20 to 100 pg/mL male Indicative of myocardial injury. Serial sampling is recommended, a change of greater than or equal to 20 pg/mL is indicative of acute coronary syndrome. [facility] TROPONIN I, HIGH SENSITIVITY 5 pg/mL Normal 0-12 [facility] Comment on above: Result Comment: Indeterminant: >12 to 100 pg/mL female >20 to 100 pg/mL male Indicative of myocardial injury. Serial sampling is recommended, a change of greater than or equal to 20 pg/mL is indicative of acute coronary syndrome. Performed By: #### L ACTH #### Testing performed at [address] [address] TROPONIN I, HIGH SENSITIVITY 5 pg/mL 0 - 12 pg/mL [facility] Comment on above: Indeterminant: >12 to 100 pg/mL female >20 to 100 pg/mL male Indicative of myocardial injury. Serial sampling is recommended, a change of greater than or equal to 20 pg/mL is indicative of acute coronary syndrome. [facility] XR CHEST PA AND LATERALon XR CHEST PA AND LATERAL Two-view CHEST RADIOGRAPH, 05/22/2023 5:58 PM EDT COMPARISON: Chest, 09/01/2022. CLINICAL HISTORY: uncontrolled HTN. Looking for end organ changes Findings and impression: 1. No acute pulmonary disease. 2. Stable cardiomegaly. 3. No acute osseous abnormality. Orthopedic plate again seen over the lower cervical region. Normal [facility] XR Chest PA and Lateralon Findings [...] again seen over the lower cervical region. [facility] Radiology Study observation (narrative) [facility] Chest PA and LateralOrder ed By: Brandi Giang on 05-22-2023 [facility] Work Phone: CBCon 02-16-2023 ABSOLUTE BAS 0.0 10*3/uL Normal 0.0-0.2 [facility] Comment on above: Performed By: #### P T, ACBC, DDIMER, LIVR, CHEM7F #### Testing performed at [address] [address] ABSOLUTE EOS 0.2 10*3/uL Normal 0.0-0.7 [facility] Comment on above: Performed By: #### P T, ACBC, DDIMER, LIVR, CHEM7F #### Testing performed at [address] [address] ABSOLUTE NEUTROPHIL COUNT 3.4 10*3/uL Normal 1.4-6.5 [facility] Comment on above: Performed By: #### P T, ACBC, DDIMER, LIVR, CHEM7F #### Testing performed at [address] [address] Basophils/100 WBC (Bld) 0.9 % Normal 0.0-2.0 A [facility] Comment on above: Performed By: #### P T, ACBC, DDIMER, LIVR, CHEM7F #### Testing performed at [address] [place] [address] DTYPE AUTO DIFF Normal [facility] Comment on above: Performed By: #### P T, ACBC, DDIMER, LIVR, CHEM7F #### Testing performed at [address] [place] [address] Eosinophils/100 WBC (Bld) 3.5 % Normal 0.0-11.0 [facility] Comment on above: Performed By: #### P T, ACBC, DDIMER, LIVR, CHEM7F #### Testing performed at [address] [address] Lymphocytes (Bld) [#/Vol] 1.4 10*3/uL Normal 1.2-3.4 [facility] Comment on above: Performed By: #### P T, ACBC, DDIMER, LIVR, CHEM7F #### Testing performed at [address] [address] Lymphocytes/100 WBC (Bld) 26.2 % Normal 20.0-55.0 [facility] Comment on above: Performed By: #### P T, ACBC, DDIMER, LIVR, CHEM7F #### Testing performed at [address] [address] Monocytes (Bld) [#/Vol] 0.3 10*3/uL Normal 0.0-0.7 [facility] Comment on above: Performed By: #### P T, ACBC, DDIMER, LIVR, CHEM7F #### Testing performed at [address] [address] Monocytes/100 WBC (Bld) 6.0 % Normal 0.0-10.0 [facility] Comment on above: Performed By: #### P T, ACBC, DDIMER, LIVR, CHEM7F #### Testing performed at [address] [address] Neutrophils/100 WBC (Bld) 63.4 % Normal 37.0-75.0 [facility] Comment on above: Performed By: #### P T, ACBC, DDIMER, LIVR, CHEM7F #### Testing performed at [address] [place] [address] Erythrocyte distribution width (RBC) [Ratio] 14.0 % Normal 11.5-14.5 [facility] Comment on above: Performed By: #### P T, ACBC, DDIMER, LIVR, CHEM7F #### Testing performed at [address] [address] Hematocrit (Bld) [Volume fraction] 40.8 % Normal 36.0-48.0 [facility] Comment on above: Performed By: #### P T, ACBC, DDIMER, LIVR, CHEM7F #### Testing performed at [address] [address] Hemoglobin (Bld) [Mass/Vol] 13.9 g/dL Normal 12.0-16.0 [facility] Comment on above: Performed By: #### P T, ACBC, DDIMER, LIVR, CHEM7F #### Testing performed at [address] [address] MCH (RBC) [Entitic mass] 31.7 pg Normal 26.0-35.0 [facility] Comment on above: Performed By: #### P T, ACBC, DDIMER, LIVR, CHEM7F #### Testing performed at [address] [address] MCHC (RBC) [Mass/Vol] 34.2 g/dL Normal 27.0-37.0 [facility] Comment on above: Performed By: #### P T, ACBC, DDIMER, LIVR, CHEM7F #### Testing performed at [address] [address] MCV (RBC) [Entitic vol] 92.6 fL Normal 80.0-100.0 [facility] Comment on above: Performed By: #### P T, ACBC, DDIMER, LIVR, CHEM7F #### Testing performed at [address] [address] Platelet mean volume (Bld) [Entitic vol] 9.3 fL Normal 7.4-11.0 [facility] Comment on above: Performed By: #### P T, ACBC, DDIMER, LIVR, CHEM7F #### Testing performed at [address] [place] [address] Platelets (Bld) [#/Vol] 128 10*3/uL Low 130-400 [facility] Comment on above: Performed By: #### P T, ACBC, DDIMER, LIVR, CHEM7F #### Testing performed at [address] [address] RBC (Bld) [#/Vol] 4.40 10*6/uL Normal 4.0-5.4 [facility] Comment on above: Performed By: #### P T, ACBC, DDIMER, LIVR, CHEM7F #### Testing performed at [address] [address] WBC (Bld) [#/Vol] 5.3 10*3/uL Normal 3.6-11.0 [facility] Comment on above: Performed By: #### P T, ACBC, DDIMER, LIVR, CHEM7F #### Testing performed at [address] [address] CBC, EDIF, PLATELETon 2022 ABSOLUTE BASOPHIL COUNT 0.0 10*3/uL 0.0 - 0.2 10*3/uL [facility] Basophils/100 WBC (Bld) 0.9 % 0.0 - 2.0 % [facility] Differential cell count method Nom (Bld) AUTO DIFF % [facility] Eosinophils (Bld) [#/Vol] 0.2 10*3/uL 0.0 - 0.7 10*3/uL [facility] Eosinophils/100 WBC (Bld) 3.5 % 0.0 - 11.0 % [facility] Erythrocyte distribution width (RBC) [Ratio] 14.0 % 11.5 - 14.5 % [facility] Hematocrit (Bld) [Volume fraction] 40.8 % 36.0 - 48.0 % [facility] Hemoglobin (Bld) [Mass/Vol] 13.9 g/dL [facility] Interpretation and review of laboratory results Abnormal [facility] Lymphocytes (Bld) [#/Vol] 1.4 10*3/uL 1.2 - 3.4 10*3/uL [facility] Lymphocytes/100 WBC (Bld) 26.2 % 20.0 - 55.0 % [facility] MCH (RBC) [Entitic mass] 31.7 pg 26.0 - 35.0 PG [facility] MCHC (RBC) [Mass/Vol] 34.2 g/dL [facility] MCV (RBC) [Entitic vol] 92.6 fL [facility] Monocytes (Bld) [#/Vol] 0.3 10*3/uL 0.0 - 0.7 10*3/uL [facility] Monocytes/100 WBC (Bld) 6.0 % 0.0 - 10.0 % [facility] Neutrophils (Bld) [#/Vol] 3.4 10*3/uL 1.4 - 6.5 10*3/uL [facility] Neutrophils/100 WBC (Bld) 63.4 % 37.0 - 75.0 % [facility] Platelet mean volume (Bld) [Entitic vol] 9.3 fL [facility] Platelets (Bld) [#/Vol] 128 10*3/uL Low 130 - 400 10*3/uL [facility] RBC (Bld) [#/Vol] 4.40 10*6/uL 4.0 - 5.4 10*6/uL [facility] WBC (Bld) [#/Vol] 5.3 10*3/uL 3.6 - 11.0 10*3/uL [facility] CHEM 7 FASTINGon 02-16-2023 Chloride [Moles/Vol] 106 mmol/L Normal 98-107 [facility] Comment on above: Performed By: #### P T, ACBC, DDIMER, LIVR, CHEM7F ####Testing performed at [address] [address] CO2 [Moles/Vol] 26 mmol/L Normal 22-30 [facility] Comment on above: Performed By: #### P T, ACBC, DDIMER, LIVR, CHEM7F ####Testing performed at [address] [address] Creatinine [Mass/Vol] 0.75 mg/dL Normal 0.52-1.04 [facility] Comment on above: Performed By: #### P T, ACBC, DDIMER, LIVR, CHEM7F ####Testing performed at [address] [address] EST. GFR, 101 ml/min/1.73sq.m [facility] Comment on above: Performed By: #### P T, ACBC, DDIMER, LIVR, CHEM7F ####Testing performed at [place] [id number] EST. GFR,Non 84 ml/min/1.73sq.m [facility] Comment on above: Performed By: #### P T, ACBC, DDIMER, LIVR, CHEM7F ####[place] [address] GFR Information Average GFR for 60-6 9 years old = 85. [facility] Comment on above: Result Comment: [employer] romelia Kidney disease, GFR = <60. Kidney failure, GFR = <15. The GFR estimate is not adjusted for extreme body surface area or acute process, nor has it been validated for women or ethnic groups other than and . Performed By: #### P T, ACBC, DDIMER, LIVR, CHEM7F ####Testing performed at [place] [id number] Glucose [Mass/Vol] 104 mg/dL High 70-100 [facility] Comment on above: Result Comment: NORMAL <100 mg/dL PREDIABETES 101-126 mg/dL DIABETES 126 mg/dL or higher Performed By: #### P T, ACBC, DDIMER, LIVR, CHEM7F ####Testing performed at [address] [address] Potassium [Moles/Vol] 3.5 mmol/L Normal 3.5-5.1 [facility] Comment on above: Performed By: #### P T, ACBC, DDIMER, LIVR, CHEM7F ####Testing performed at [address] [address] Sodium [Moles/Vol] 143 mmol/L Normal 136-145 [facility] Comment on above: Performed By: #### P T, ACBC, DDIMER, LIVR, CHEM7F ####Testing performed at [address] [address] Urea nitrogen [Mass/Vol] 20 mg/dL Normal 7-20 [facility] Comment on above: Performed By: #### P T, ACBC, DDIMER, LIVR, CHEM7F ####Testing performed at [address] [address] CHEM 7 (LYTES,BUN,CREA,GLUC) on 02-16-2023 Chloride [Moles/Vol] 106 mmol/L [facility] [employer] [facility] CO2 [Moles/Vol] 26 mmol/L [facility] Creatinine [Mass/Vol] 0.75 mg/dL [facility] [employer] [facility] GFR COMMENT Average GFR for 60-6 9 years old = 85. [facility] Comment on above: Chronic Kidney disea se, GFR = <60. Kidney failure, GFR = <15. The GFR estimate is not adjusted for extreme body surface area or acute process, nor has it been validated for women or ethnic groups other than and . GFR/1.73 sq M.predicted among blacks MDRD (S/P/Bld) [Vol rate/Area] 101 mL/min/{1.73_m2} ml/min/1.73s q.m [facility] GFR/1.73 sq M.predicted among non-blacks MDRD (S/P/Bld) [Vol rate/Area] 84 mL/min/{1.73_m2} ml/min/1.73s q.m [facility] Glucose post fast [Mass/Vol] 104 mg/dL High [facility] Comment on above: NORMAL <100 mg/dL PREDIABETES 101-126 mg/dL DIABETES 126 mg/dL or higher Potassium [Moles/Vol] 3.5 mmol/L [facility] [employer] [facility] Sodium [Moles/Vol] 143 mmol/L [facility] Urea nitrogen [Mass/Vol] 20 mg/dL [facility] D DIMERon 02-16-2023 D DIMER <0.27 Normal <0.50 [facility] Comment on above: Result Comment: If r esult is greater than the cutoff value of 0.56 mg/L then the potential for PE or DVT exists. Other conditions exist which may cause a falsely elevated level. Please correlate clinically, including radiological findings and other clinical parameters. Performed By: #### P T, ACBC, DDIMER, LIVR, CHEM7F ####Testing performed at [address] [address] D-DIMER,QUANTITATIVEon 02-16 Fibrin D-dimer FEU (PPP) [Mass/Vol] <0.27 [facility] Comment on above: If result is greater than the cutoff value of 0.56 mg/L then the potential for PE or DVT exists. Other conditions exist which may cause a falsely elevated level. Please correlate clinically, including radiological findings and other clinical parameters. [facility] HEPATIC FUNCTION PANELon Albumin [Mass/Vol] 4.1 g/dL [facility] ALP [Catalytic activity/Vol] 73 U/L [facility] ALT [Catalytic activity/Vol] 68 U/L High [facility] AST [Catalytic activity/Vol] 55 U/L High [facility] Bilirubin [Mass/Vol] 0.8 mg/dL [facility] Bilirubin.direct [Mass/Vol] 0.2 mg/dL [facility] Protein [Mass/Vol] 7.0 g/dL [facility] LIVER PANELon 02-16-2023 Albumin [Mass/Vol] 4.1 g/dL Normal 3.5-5.0 [facility] Comment on above: Performed By: #### P T, ACBC, DDIMER, LIVR, CHEM7F ####Testing performed at [address] [address] ALP [Catalytic activity/Vol] 73 U/L Normal 38-126 [facility] Comment on above: Performed By: #### P T, ACBC, DDIMER, LIVR, CHEM7F ####Testing performed at [address] [address] ALT [Catalytic activity/Vol] 68 U/L High 14-54 [facility] Comment on above: Performed By: #### P T, ACBC, DDIMER, LIVR, CHEM7F ####Testing performed at [address] [address] AST [Catalytic activity/Vol] 55 U/L High 15-41 [facility] Comment on above: Performed By: #### P T, ACBC, DDIMER, LIVR, CHEM7F ####Testing performed at [address] [address] Bilirubin [Mass/Vol] 0.8 mg/dL Normal 0.2-1.2 [facility] Comment on above: Performed By: #### P T, ACBC, DDIMER, LIVR, CHEM7F ####Testing performed at [address] [address] Bilirubin.indirect [Mass/Vol] 0.2 mg/dL Normal 0.0-0.2 [facility] Comment on above: Performed By: #### P T, ACBC, DDIMER, LIVR, CHEM7F ####Testing performed at [place] [id number] Protein [Mass/Vol] 7.0 g/dL Normal 6.3-8.2 [facility] Comment on above: Performed By: #### P T, ACBC, DDIMER, LIVR, CHEM7F ####Testing performed at [address] [address] No Panel Informationon 02-16 Interpretation and review of laboratory results Abnormal [facility] PROTIMEon 02-16-2023 INR Coag (PPP) [Relative time] 0.94 {INR} Normal 0.85-1.10 [facility] Comment on above: Result Comment: 2.0-3.0 THERAPEUTIC RANGE 2.5-3.5 MECHANICAL VALVE RANGE Performed By: #### P T, ACBC, DDIMER, LIVR, CHEM7F #### Testing performed at [address] [address] PT Coag (PPP) [Time] 12.7 s Normal 11.8-14.4 [facility] Comment on above: Performed By: #### P T, ACBC, DDIMER, LIVR, CHEM7F #### Testing performed at [address] [address] PROTIME-INRon 02-16-2023 INR Coag (PPP) [Relative time] 0.94 {INR} 0.85 - 1.10 [facility] Comment on above: 2.0-3.0 THERAPEUTIC RANGE 2.5-3.5 MECHANICAL VALVE RANGE PT Coag (PPP) [Time] 12.7 s [facility] [employer] [facility] XR CHEST AP/PA AND LATon XR [...] Denies Known Exposure. Patient is Alert. Skin Maybeury, Warm and Dry. Respirations Non-Labored ORDERING SYSTEM [...] ThuNov 05, 2022 5:49:[address] [facility] Comment on above: Order Comment: [...] Denies Known Exposure. Patient is Alert. Skin Maybeury, Warm and Dry. Respirations Non-Labored CYSTOSCOPYon 10-15-2022 [...] was obtained. Does this procedure require a Moran Protocol? Yes. Moran Protocol is required. Urine was collected for testing. Procedure: Procedure performed: cystoscopyA 360 survey of the bladder was performed. [facility] GENERAL PROCEDUREon 10-15-19 Av Delgado MD 10/15/2022 1:22 PM error [facility] Av Delgado MD - 10/15/2022 1:00 PM [...] trimethoprimdaily, appropriate use and side effects reviewed. [facility] Radiology Study observation (narrative) [facility] No Panel Informationon 10-15 [facility] Radiology Study observation (narrative) [facility] POCT URINALYSIS DIPSTICK AUT OMATED W/O SCOPon 10-15-2022 Amorphous sediment LM Ql (Urine sed) [facility] Appearance (U) clear [facility] Bacteria LM Ql (Urine sed) [facility] Bilirubin Ql (U) Negative [facility] Casts LM.LPF (Urine sed) [#/Area] [facility] Color (U) yellow [facility] Crystals LM Nom (Urine sed) [facility] Epithelial cells.squamous LM.HPF (Urine sed) [#/Area] [facility] Flow cytometry specialist review Mg (Unsp spec) [Interp] [facility] Glucose Auto test strip (U) [Mass/Vol] Negative mg/dL [facility] Ketones [Mass/Vol] Negative mg/dL [facility] Leukocyte esterase Qn (U) [facility] Leukocyte esterase Test strip Ql (U) Negative [facility] Nitrite Ql (U) Negative [facility] pH (U) 6.0 [pH] 5 - 7 [facility] Protein Ql (U) Negative mg/dL [facility] RBC LM.HPF (Urine sed) [#/Area] [facility] RBC Ql (U) santosh [facility] Specific gravity (U) [Rel density] 1.025 1.001 - 1.035 [facility] Transitional cells LM Ql (Urine sed) [facility] Urobilinogen Qn (U) 0.2 [facility] WBC LM.HPF (Urine sed) [#/Area] [facility] CT Abdomen and Pelvison 09-22 IMPRESSION: No [...] follow-up required. Fatty infiltration of the liver [facility] CT Abdomen and PelvisOrdered By: Digna Tinajero on 10-10-2022 [facility] Work Phone: CT Abdomen and Pelvison 09-21 Radiology Study observation (narrative) [facility] POCT URINALYSIS DIPSTICK AUT OMATED W/O SCOPon 10-01-2022 Amorphous sediment LM Ql (Urine sed) [facility] Appearance (U) clear [facility] Bacteria LM Ql (Urine sed) [facility] Bilirubin Ql (U) Negative [facility] Casts LM.LPF (Urine sed) [#/Area] [facility] Color (U) yellow [facility] Crystals LM Nom (Urine sed) [facility] Epithelial cells.squamous LM.HPF (Urine sed) [#/Area] [facility] Flow cytometry specialist review Mg (Unsp spec) [Interp] [facility] Glucose Auto test strip (U) [Mass/Vol] Negative mg/dL [facility] Ketones [Mass/Vol] Negative mg/dL [facility] Leukocyte esterase Qn (U) [facility] Leukocyte esterase Test strip Ql (U) TRACE [facility] Nitrite Ql (U) Negative [facility] pH (U) 5.0 [pH] 5 - 7 [facility] Protein Ql (U) Negative mg/dL [facility] RBC LM.HPF (Urine sed) [#/Area] [facility] RBC Ql (U) Negative [facility] Specific gravity (U) [Rel density] 1.010 1.001 - 1.035 [facility] Transitional cells LM Ql (Urine sed) [facility] Urobilinogen Qn (U) 0.2 [facility] WBC LM.HPF (Urine sed) [#/Area] [facility] CBC, EDIF, PLATELETon 2021 Basophils/100 WBC (Bld) 0 % 0.0 - 2.0 % [facility] Differential cell count method Nom (Bld) AUTO DIFF % [facility] Eosinophils/100 WBC (Bld) 3 % 0.0 - 11.0 % [facility] Erythrocyte distribution width (RBC) [Ratio] 15.0 % High 11.5 - 14.5 % [facility] Comment on above: CORRECTED ON 09/01 A T 194: PREVIOUSLY REPORTED 14.5 Hematocrit (Bld) [Volume fraction] 42.6 % 36.0 - 48.0 % [facility] Comment on above: CORRECTED ON 09/01 A T 1943: PREVIOUSLY REPORTED 42.8 Hemoglobin (Bld) [Mass/Vol] 14.2 g/dL [facility] Comment on above: CORRECTED ON 09/01 A T 1943: PREVIOUSLY REPORTED 14.5 Interpretation and review of laboratory results Abnormal [facility] Lymphocytes/100 WBC (Bld) 36 % 20.0 - 55.0 % [facility] MCH (RBC) [Entitic mass] 30.4 pg 26.0 - 35.0 PG [facility] Comment on above: CORRECTED ON 09/01 A T 1943: PREVIOUSLY REPORTED 30.8 MCHC (RBC) [Mass/Vol] 33.3 g/dL [facility] Comment on above: CORRECTED ON 09/01 A T 1943: PREVIOUSLY REPORTED 34.0 MCV (RBC) [Entitic vol] 91.4 fL [facility] Comment on above: CORRECTED ON 09/01 A T 1943: PREVIOUSLY REPORTED 90.7 Monocytes/100 WBC (Bld) 7 % 0.0 - 10.0 % [facility] Neutrophils/100 WBC (Bld) 54 % 37.0 - 75.0 % [facility] Platelet mean volume (Bld) [Entitic vol] 9.5 fL [facility] Comment on above: CORRECTED ON 09/01 A T 1943: PREVIOUSLY REPORTED 10.6 Platelets (Bld) [#/Vol] 93 10*3/uL Low 130. 0 - 400.0 10*3/uL [facility] Comment on above: CORRECTED ON 09/01 A T 1943: PREVIOUSLY REPORTED 126 RBC (Bld) [#/Vol] 4.66 10*6/uL 4.0 - 5.4 10*6/uL [facility] Comment on above: CORRECTED ON 09/01 A T 1944: PREVIOUSLY REPORTED 4.72 WBC (Bld) [#/Vol] 3.3 10*3/uL Low 3.6 - 11.0 10*3/uL [facility] Comment on above: Result called to nany pritchett back by: Roberta MENDOZASENDY 09/01/2022 @ 19:44 by ILDEFONSO CORRECTED ON 09/01 AT 1944: PREVIOUSLY REPORTED 4.0 [facility] COMPREHENSIVE METABOLIC PANE José 09-01-2022 Albumin [Mass/Vol] 4.2 G/dl 3.5 - 5.0 G/dl [facility] Albumin/Globulin [Mass ratio] 1.4 {ratio} [facility] ALP [Catalytic activity/Vol] 62 U/L [facility] ALT [Catalytic activity/Vol] 30 U/L [facility] AST [Catalytic activity/Vol] 28 U/L [facility] Bilirubin [Mass/Vol] 0.8 mg/dL [facility] Calcium [Mass/Vol] 9.0 mg/dL [facility] Chloride [Moles/Vol] 103 mmol/L [facility] CO2 [Moles/Vol] 28 mmol/L [facility] Creatinine [Mass/Vol] 0.94 mg/dL [facility] GFR COMMENT Average GFR for 60-6 9 years old = 85. [facility] Comment on above: Chronic Kidney disea se, GFR = <60. Kidney failure, GFR = <15. The GFR estimate is not adjusted for extreme body surface area or acute process, nor has it been validated for women or ethnic groups other than and . GFR/1.73 sq M.predicted among blacks MDRD (S/P/Bld) [Vol rate/Area] 78 mL/min/{1.73_m2} ml/min/1.73s q.m [facility] GFR/1.73 sq M.predicted among non-blacks MDRD (S/P/Bld) [Vol rate/Area] 64 mL/min/{1.73_m2} ml/min/1.73s q.m [facility] Glucose post fast [Mass/Vol] 106 mg/dL High [facility] Comment on above: NORMAL <100 mg/dL PREDIABETES 101-126 mg/dL DIABETES 126 mg/dL or higher Interpretation and review of laboratory results Abnormal [facility] Potassium [Moles/Vol] 3.2 mmol/L Low [facility] Protein [Mass/Vol] 7.1 g/dL [facility] Sodium [Moles/Vol] 140 mmol/L [facility] Urea nitrogen [Mass/Vol] 14 mg/dL [facility] INFLUENZA A AND B, PCRon FLUAV and FLUBV Ag IF Nom (Unsp spec) Negative NEGATIVE [facility] FLUBV Ag IA Ql (Unsp spec) Negative NEGATIVE [facility] Comment on above: TESTING PERFORMED BY KRANTHI [facility] NOVEL CORONAVIRUS LAB 1 - NA SOPHARYNGEALon 09-01-2022 Interpretation and review of laboratory results Abnormal [facility] NARRATIVE -1 This test was performed using isothermal KRANTHI and has been approved as Emergency Use Authorization (EUA) for the qualitative detection [id number] nucleic acid. [facility] SARS-CoV-2 (COVID-19) RNA KRANTHI+probe Ql (Unsp spec) Detected Abnormal NOT DETECTED [facility] Comment on above: ENHANCED CONTACT, AN D DROPLET ISOLATION IS REQUIRED FOR INPATIENTS WITH SARS-CoV-2. [facility] XR Chest PA uprighton 2021 IMPRESSION: The [...] chest does not appear to change significantly. [facility] Radiology Study observation (narrative) [facility] XR Chest PA uprightOrdered B y: Alex Nino on 09-01-2022 [facility] Work Phone: NOVEL CORONAVIRUS (COVID-19) on 08-08-2022 SARS-CoV-2 (COVID-19) RNA KRANTHI+probe Ql (Unsp spec) Not detected Not Detected [facility] Comment on above: This assay was perfo rmed using [employer] Nucleic Acid Amplification technology (RTPCR). SARS-CoV-2 (COVID-19) RNA NA A+probe Ql (Unsp spec)on 08-08-2022 Interpretation and review of laboratory results Normal [facility] SARS-CoV-2 (COVID-19) Ab IA Ql Not Detected results are indicative of the absence of SARS-CoV-2 in the specimen submitted for testing. False negative results are possible based on the timing and quality of specimen submitted for testing. This test is intended for use only under Emergency Use Authorization (EUA). This test was developed, and its performance characteristics determined by [facility] [employer] which is certified under CLIA as qualified to perform high complexity clinical laboratory testing. [facility] Cardiologyon 07-28-2022 P wave axis 6 degrees [facility] P-R Interval 184 ms [facility] Q-T interval 412 ms [facility] Q-T interval corrected 438 ms [facility] QRS axis 35 degrees [facility] QRS duration 86 ms [facility] T wave axis 37 degrees [facility] No Panel Informationon 07-28 Diagnosis Normal sinus rhythm with sinus arrhythmia Normal ECG No previous ECGs available Confirmed by RAKESH SHOEMAKER ([id number]) on 07/28/2022 5:37:49 PM [facility] P wave Atrium by EKG 68 BPM [facility] Basic metabolic 2000 panelon 04-23-2022 Anion gap [Moles/Vol] 14 mmol/L [facility] Calcium [Mass/Vol] 9.6 mg/dL 8.4 - 10. 4 mg/dL [facility] Chloride [Moles/Vol] 100 mmol/L 97 - 11 1 mmol/L [facility] CO2 [Moles/Vol] 28 mmol/L 21 - 30 mmol/L [facility] Creatinine [Mass/Vol] 1.33 mg/dL High 0.50 - 1.10 mg/dL [facility] GFR/1.73 sq M.predicted MDRD (S/P/Bld) [Vol rate/Area] 46 mL/min/{1.73_m2} Low >=60 mL/min/1.73s qm [facility] Comment on above: 2020 CKD EPI [...] Inclusion of Race in Diagnosing Kidney Disease. [place] Journal of Kidney Diseases 202;79(2):268-88.e1. 2. N Engl J Med 1 Vol. 385 Issue 19 Pages [id number] Glucose [Mass/Vol] 111 mg/dL 80 - 116 [...] vol] 89 fL 80 - 100 fL [facility] Platelet mean volume (Bld) [Entitic vol] 10.3 fL 7.5 - 11.2 fL [facility] Platelets (Bld) [#/Vol] 137 10*3/uL Low 150 - 400 K/uL [facility] RBC (Bld) [#/Vol] 4.94 10*6/uL [facility] WBC (Bld) [#/Vol] 5.8 10*3/uL 4.5 - 11.5 K/uL [facility] Diabetes tracking panelOrder ed By: Tj Slaughter on 04-23-2022 Average glucose Estimated from glycated hemoglobin (Bld) [Mass/Vol] 91 mg/dL [facility] HbA1c (Bld) [Mass fraction] 4.8 % 4.0 - 5.6 % [facility] - Chemistry and C hemistry - challengeon 04-23-2022 Albumin [Mass/Vol] 4.6 g/dL 3.4 - 5.1 g/dL [facility] ALP [Catalytic activity/Vol] 68 U/L [facility] ALT [Catalytic activity/Vol] 35 U/L [facility] AST [Catalytic activity/Vol] 29 U/L [facility] Bilirubin [Mass/Vol] 1.0 mg/dL 0.1 - 1 .5 mg/dL [facility] Bilirubin.direct [Mass/Vol] 0.20 mg/dL 0.10 - 0.30 mg/dL [facility] Protein [Mass/Vol] 6.4 g/dL 5.7 - 8.1 g/dL [facility] - Coagulationon 0 04-23-2022 INR Coag (PPP) [Relative time] 1.07 {INR} [facility] PT Coag (PPP) [Time] 12.1 s [facility] 1996 panelon Cholesterol [Mass/Vol] 208 mg/dL High <200 [facility] Cholesterol in HDL [Mass/Vol] 42 mg/dL Low >54 [facility] Cholesterol in LDL [Mass/Vol] 144 mg/dL High <111 [facility] Cholesterol in LDL/Cholesterol in HDL [Mass ratio] 3.43 {ratio} <3.57 [facility] Cholesterol non HDL [Mass/Vol] 166 mg/dL High <130 [facility] Cholesterol.total/Carrie sterol in HDL [Mass ratio] 4.95 {ratio} <5.00 [facility] Interpretation and review of laboratory results Abnormal [facility] Triglyceride [Mass/Vol] 172 mg/dL High <151 M [facility] No Panel Informationon 04-23 AFP 2.6 ng/mL <=8.4 [facility] Interpretation and review of laboratory results Normal [facility] Interpretation and review of laboratory results Normal [facility] Interpretation and review of laboratory results Normal [facility] C REACTIVE PROTEINon 022 CRP [Mass/Vol] mg/L 0 - 10.0 MG/L [facility] CBC, EDIF, PLATELETon 2021 ABSOLUTE BASOPHIL COUNT 0.0 10*3/uL 0.0 - 0.2 10*3/uL [facility] Basophils/100 WBC (Bld) 0.4 % 0.0 - 2.0 % [facility] Differential cell count method Nom (Bld) AUTO DIFF % [facility] Eosinophils (Bld) [#/Vol] 0.20 10*3/uL 0.0 - 0.7 10*3/uL [facility] Eosinophils/100 WBC (Bld) 7.0 % 0.0 - 11.0 % [facility] Erythrocyte distribution width (RBC) [Ratio] 13.5 % 11.5 - 14.5 % [facility] Hematocrit (Bld) [Volume fraction] 34.0 % Low 36.0 - 48.0 % [facility] Hemoglobin (Bld) [Mass/Vol] 11.7 g/dL Low [facility] Interpretation and review of laboratory results Abnormal [facility] Lymphocytes (Bld) [#/Vol] 1.00 10*3/uL Low 1.2 - 3.4 10*3/uL [facility] Lymphocytes/100 WBC (Bld) 34.5 % 20.0 - 55.0 % [facility] MCH (RBC) [Entitic mass] 31.5 pg 26.0 - 35.0 PG [facility] MCHC (RBC) [Mass/Vol] 34.4 g/dL [facility] MCV (RBC) [Entitic vol] 91.8 fL [facility] Monocytes (Bld) [#/Vol] 0.2 10*3/uL 0.0 - 0.7 10*3/uL [facility] Monocytes/100 WBC (Bld) 6.2 % 0.0 - 10.0 % [facility] Neutrophils (Bld) [#/Vol] 1.6 10*3/uL 1.4 - 6.5 10*3/uL [facility] Neutrophils/100 WBC (Bld) 51.9 % 37.0 - 75.0 % [facility] Platelet mean volume (Bld) [Entitic vol] 11.5 fL High [facility] Platelets (Bld) [#/Vol] 77 10*3/uL Low 130. 0 - 400.0 10*3/uL [facility] RBC (Bld) [#/Vol] 3.70 10*6/uL Low 4.0 - 5.4 10*6/uL [facility] WBC (Bld) [#/Vol] 3.0 10*3/uL Low 3.6 - 11.0 10*3/uL [facility] COMPREHENSIVE METABOLIC PANE José 01-31-2022 Albumin [Mass/Vol] 3.5 G/dl 3.5 - 5.0 G/dl [facility] Albumin/Globulin [Mass ratio] 1.8 {ratio} [facility] ALP [Catalytic activity/Vol] 47 U/L [facility] ALT [Catalytic activity/Vol] 38 U/L [facility] AST [Catalytic activity/Vol] 31 U/L [facility] Bilirubin [Mass/Vol] 0.6 mg/dL [facility] Calcium [Mass/Vol] 8.4 mg/dL [facility] Chloride [Moles/Vol] 108 mmol/L High [facility] CO2 [Moles/Vol] 28 mmol/L [facility] Creatinine [Mass/Vol] 0.96 mg/dL [facility] GFR COMMENT Average GFR for 60-6 9 years old = 85. [facility] Comment on above: Chronic Kidney disea se, GFR = <60. Kidney failure, GFR = <15. The GFR estimate is not adjusted for extreme body surface area or acute process, nor has it been validated for women or ethnic groups other than and . GFR/1.73 sq M.predicted among blacks MDRD (S/P/Bld) [Vol rate/Area] 76 mL/min/{1.73_m2} ml/min/1.73s q.m [facility] GFR/1.73 sq M.predicted among non-blacks MDRD (S/P/Bld) [Vol rate/Area] 63 mL/min/{1.73_m2} ml/min/1.73s q.m [facility] Glucose post fast [Mass/Vol] 104 mg/dL High [facility] Comment on above: NORMAL <100 mg/dL PREDIABETES 101-126 mg/dL DIABETES 126 mg/dL or higher Interpretation and review of laboratory results Abnormal [facility] Potassium [Moles/Vol] 3.5 mmol/L edo Protein [Mass/Vol] 5.5 g/dL Low [facility] Sodium [Moles/Vol] 142 mmol/L [facility] Urea nitrogen [Mass/Vol] 17 mg/dL [facility] CT Head WO contraston 2021 IMPRESSION: [...] skull are clear. Atherosclerotic vascular calcifications. RADIOLOGY Brady, Silas Curiel MD - 01/31/2022 EXAMINATION: CT HEAD WITHOUT [...] disease. 3. Unchanged calcified left parietal meningioma. [facility] CT Head WO contrastOrdered B y: Silas Abreu on 01-31-2022 [facility] Work Phone: MAGNESIUMon 01-31-2022 Magnesium [Mass/Vol] 2.1 mg/dL [facility] [employer] [facility] No Panel Informationon 01-31 [facility] PROTIME-INRon 01-31-2022 INR Coag (PPP) [Relative time] 0.92 {INR} [facility] Comment on above: 2.0-3.0 THERAPEUTIC RANGE 2.5-3.5 MECHANICAL VALVE RANGE PT Coag (PPP) [Time] 12.6 s [facility] SEDIMENTATION RATE, AUTOMATE Don 01-31-2022 ESR (Bld) [Velocity] 6 mm/h [facility] C REACTIVE PROTEINon 022 CRP [Mass/Vol] mg/L 0 - 10.0 MG/L [facility] CBC, EDIF, PLATELETon 2021 ABSOLUTE BASOPHIL COUNT 0.0 10*3/uL 0.0 - 0.2 10*3/uL [facility] Basophils/100 WBC (Bld) 0.6 % 0.0 - 2.0 % [facility] ROI² Differential cell count method Nom (Bld) AUTO DIFF % [facility] Eosinophils (Bld) [#/Vol] 0.20 10*3/uL 0.0 - 0.7 10*3/uL [facility] Eosinophils/100 WBC (Bld) 6.1 % 0.0 - 11.0 % [facility] Erythrocyte distribution width (RBC) [Ratio] 13.6 % 11.5 - 14.5 % [facility] Hematocrit (Bld) [Volume fraction] 34.5 % Low 36.0 - 48.0 % [facility] Hemoglobin (Bld) [Mass/Vol] 11.9 g/dL Low [facility] Interpretation and review of laboratory results Abnormal [facility] Lymphocytes (Bld) [#/Vol] 1.10 10*3/uL Low 1.2 - 3.4 10*3/uL [facility] Lymphocytes/100 WBC (Bld) 31.9 % 20.0 - 55.0 % [facility] MCH (RBC) [Entitic mass] 31.6 pg 26.0 - 35.0 PG [facility] MCHC (RBC) [Mass/Vol] 34.4 g/dL [facility] MCV (RBC) [Entitic vol] 92.0 fL A [facility] Monocytes (Bld) [#/Vol] 0.2 10*3/uL 0.0 - 0.7 10*3/uL [facility] Monocytes/100 WBC (Bld) 5.7 % 0.0 - 10.0 % [facility] Neutrophils (Bld) [#/Vol] 2.0 10*3/uL 1.4 - 6.5 10*3/uL [facility] Neutrophils/100 WBC (Bld) 55.7 % 37.0 - 75.0 % [facility] Platelet mean volume (Bld) [Entitic vol] 11.2 fL High [facility] Platelets (Bld) [#/Vol] 89 10*3/uL Low 130. 0 - 400.0 10*3/uL [facility] RBC (Bld) [#/Vol] 3.75 10*6/uL Low 4.0 - 5.4 10*6/uL [facility] WBC (Bld) [#/Vol] 3.6 10*3/uL 3.6 - 11.0 10*3/uL [facility] COMPREHENSIVE METABOLIC PANE José 01-30-2022 Albumin [Mass/Vol] 3.4 G/dl Low 3.5 - 5.0 G/dl [facility] Albumin/Globulin [Mass ratio] 1.6 {ratio} [facility] ALP [Catalytic activity/Vol] 47 U/L [facility] ALT [Catalytic activity/Vol] 36 U/L [facility] AST [Catalytic activity/Vol] 29 U/L [facility] Bilirubin [Mass/Vol] 0.5 mg/dL [facility] Calcium [Mass/Vol] 8.4 mg/dL [facility] Chloride [Moles/Vol] 109 mmol/L High [facility] CO2 [Moles/Vol] 27 mmol/L [facility] Creatinine [Mass/Vol] 1.05 mg/dL High [facility] GFR COMMENT Average GFR for 60-6 9 years old = 85. [facility] Comment on above: Chronic Kidney disea se, GFR = <60. Kidney failure, GFR = <15. The GFR estimate is not adjusted for extreme body surface area or acute process, nor has it been validated for women or ethnic groups other than and . GFR/1.73 sq M.predicted among blacks MDRD (S/P/Bld) [Vol rate/Area] 69 mL/min/{1.73_m2} ml/min/1.73s q.m [facility] GFR/1.73 sq M.predicted among non-blacks MDRD (S/P/Bld) [Vol rate/Area] 57 mL/min/{1.73_m2} ml/min/1.73s q.m [facility] Glucose post fast [Mass/Vol] 120 mg/dL High [facility] Comment on above: NORMAL <100 mg/dL PREDIABETES 101-126 mg/dL DIABETES 126 mg/dL or higher Interpretation and review of laboratory results Abnormal [facility] Potassium [Moles/Vol] 3.6 mmol/L [facility] Protein [Mass/Vol] 5.5 g/dL Low [facility] Sodium [Moles/Vol] 141 mmol/L [facility] Urea nitrogen [Mass/Vol] 22 mg/dL High [facility] CT Head WO contraston 2021 Radiology Study observation (narrative) [facility] ECGon 01-30-2022 [facility] ECGOrdered By: Phill champagne on 01-30-2022 [facility] Work Phone: HEPATITIS A, B, Con 01-31-20 HBV surface Ag IA Ql Negative NEGATIVE [facility] Hep A AB (IGG + IGM) Positive Abnormal NEGATIVE [facility] Comment on above: Specimen is positive for HAV, sent to reference lab for HAVAb, IgM. Positive indicates a reactive sample and the presence of HAV Ab, individual has been previously infected or is presumed to be immune to HAV infection. HEP B CORE AB,TOTAL(IGG+IGM) Reactive Abnormal NEGATIVE [facility] Comment on above: Specimen is presumed reactive for HBc Ab Hep B Surf AB Positive POSITIVE [facility] Comment on above: Clinical Interpretation of Immune Status Negative: patient is considered to be not immune to infection with HBV Intermediate: unable to determine if anti-HBs is present at levels consistent with immunity Positive: anti-HBs detected, patient is considered to be immune to infection with HBV HEP C AB Reactive Abnormal NEGATIVE [facility] Comment on above: HCV Ab IgG detected, patient is presumed to be infected, state or associated disease not determined Interpretation and review of laboratory results Abnormal [facility] MAGNESIUMon 01-30-2022 Magnesium [Mass/Vol] 2.1 mg/dL [facility] No Panel Informationon 01-30 Interpretation and review of laboratory results Abnormal [facility] PROTIME-INRon 01-30-2022 INR Coag (PPP) [Relative time] 0.88 {INR} [facility] Comment on above: 2.0-3.0 THERAPEUTIC RANGE 2.5-3.5 MECHANICAL VALVE RANGE PT Coag (PPP) [Time] 12.2 s [facility] SEDIMENTATION RATE, AUTOMATE Don 01-30-2022 ESR (Bld) [Velocity] 5 mm/h [facility] SPECT Heart perfusion at res t [...] HR: 72 bpm Max Heart Rate (APMHR): 160.988452 bpm Max HR Achieved: 95 bpm Target HR (85% APMHR): 136.903714 bpm % of APMHR: 59.38 Recovery HR: 88 bpm HR response to stress: appropriate BP Resting BP: 138/90 mmHg Max BP: 138/90 mmHg BP response to stress: normal resting BP - appropriate response ECG Resting ECG: normal ST Change: none Arrhythmia: none Conclusion Nondiagnostic stress test, O2 sat 98% CARDIOLOGY Phill Nicholas, - 01/30/2022 APPROVED REPORT NM EXAM: Myocardial [...] Resting HR: 72 bpmMax Heart Rate (APMHR): 160.756852 bpm Max HR Achieved: 95 bpmTarget HR (85% APMHR): 136.412883 bpm % of APMHR: 59.38 Recovery HR: 88 bpm HR response to stress: appropriate BP Resting BP: 138/90 mmHg Max BP: 138/90 mmHg BP response to stress: normal resting BP - appropriate response ECG Resting ECG: normal ST Change: none Arrhythmia: none Conclusion Nondiagnostic stress test, O2 sat 98% [facility] Radiology Study observation (narrative) [facility] TOXICOLOGY DRUG SCREEN, URIN Abelardo 01-30-2022 Amphetamine (U) [Mass/Vol] Negative NEGATIVE NG/ML [facility] Comment on above: <500 ng/ml CUTOFF Barbiturates Screen Ql (U) Negative NEGATIVE NG/ML [facility] Comment on above: <200 ng/ml CUTOFF Benzodiazepines Ql (U) Positive Abnormal NEGAT JHONY NG/ML [facility] Comment on above: <150 ng/ml CUTOFF *Unconfirmed Screening Result* Unconfirmed screening results are to be used only for medical treatment purposes. Benzoylecgonine Ql (U) Negative NEGAT JHONY NG/ML [facility] Comment on above: <150 ng/ml CUTOFF Buprenorphine Ql (U) Negative NEGATIV E NG/ML [facility] Comment on above: <10 ng/ml CUTOFF Cannabinoids Screen Ql (U) Negative NEGATIVE NG/ML [facility] Comment on above: <50 ng/ml CUTOFF Interpretation and review of laboratory results Abnormal [facility] Methadone Screen Ql (U) Negative NEGA TIVE NG/ML [facility] Comment on above: <200 ng/ml CUTOFF Methamphetamine (U) [Mass/Vol] Negative NEGATIVE NG/ML [facility] Comment on above: <500 ng/ml CUTOFF Opiates Screen Ql (U) Positive Abnormal NEGATI VE NG/ML [facility] Comment on above: <100 ng/ml CUTOFF *Unconfirmed Screening Result* Unconfirmed screening results are to be used only for medical treatment purposes. oxyCODONE Ql (U) Negative NEGATIVE NG/ML [facility] Comment on above: <100 ng/ml CUTOFF Phencyclidine Screen method >25 ng/mL Ql (U) Negative NEGATIVE NG/ML [facility] Comment on above: <25 ng/ml CUTOFF Propoxyphene+Norpropoxy phene Screen Ql (U) Negative NEGATIVE NG/ML [facility] Comment on above: <300 ng/ml CUTOFF Tricyclic antidepressants Screen Ql (U) Negative NEGATIVE NG/ML [facility] Comment on above: <300 ng/ml CUTOFF [facility] URINALYSIS, MACROon 01-31-20 22 Bilirubin Ql (U) Negative NEGATIVE [facility] Clarity (U) SLIGHTLY CLOUDY [facility] Color (U) YELLOW YELLOW [facility] Glucose Test strip (U) [Mass/Vol] Negative NEGATIVE mg/dl [facility] Hemoglobin Ql (U) Negative NEGATIVE [facility] Ketones (U) [Mass/Vol] Negative NEGAT JHONY mg/dl [facility] Leukocyte esterase Test strip Ql (U) TRACE Abnormal NEGATIVE [facility] Nitrite Ql (U) Negative NEGATIVE [facility] th System pH (U) 6.0 [pH] [facility] Protein Ql (U) Negative NEGATIVE mg/dl [facility] Specific gravity (U) [Rel density] 1.020 [facility] Urobilinogen (U) [Mass/Vol] 0.2 mg/dL [facility] URINE MICROSCOPICon 01-31-20 22 Bacteria LM.HPF (Urine sed) [#/Area] TRACE Abnormal NEGATIVE [facility] Casts LM.LPF (Urine sed) [#/Area] NONE NONE /LPF [facility] Crystals LM Nom (Urine sed) NONE NONE [facility] Epithelial cells LM Ql (Urine sed) 1 TO 5 /HPF [facility] Mucus Ql (Urine sed) Negative NEGATIVE [facility] RBC LM.HPF (Urine sed) [#/Area] Negative NEGATIVE /HPF [facility] Urine sediment comments LM Mg (Urine sed) REFLEX CULTURE PER ESTABLISHED CRITERIA. [facility] WBC LM.HPF (Urine sed) [#/Area] 1 TO 5 NEGATIVE /HPF [facility] C REACTIVE PROTEINon 022 CRP [Mass/Vol] mg/L 0 - 10.0 MG/L [facility] CBC, EDIF, PLATELETon 2021 ABSOLUTE BASOPHIL COUNT 0.0 10*3/uL 0.0 - 0.2 10*3/uL [facility] Basophils/100 WBC (Bld) 0.5 % 0.0 - 2.0 % [facility] Differential cell count method Nom (Bld) AUTO DIFF % [facility] Eosinophils (Bld) [#/Vol] 0.20 10*3/uL 0.0 - 0.7 10*3/uL [facility] Eosinophils/100 WBC (Bld) 7.2 % 0.0 - 11.0 % [facility] Erythrocyte distribution width (RBC) [Ratio] 13.5 % 11.5 - 14.5 % [facility] Hematocrit (Bld) [Volume fraction] 36.1 % 36.0 - 48.0 % [facility] Hemoglobin (Bld) [Mass/Vol] 12.4 g/dL [facility] Interpretation and review of laboratory results Abnormal [facility] Lymphocytes (Bld) [#/Vol] 1.10 10*3/uL Low 1.2 - 3.4 10*3/uL [facility] Lymphocytes/100 WBC (Bld) 35.4 % 20.0 - 55.0 % [facility] MCH (RBC) [Entitic mass] 31.6 pg 26.0 - 35.0 PG [facility] MCHC (RBC) [Mass/Vol] 34.5 g/dL [facility] MCV (RBC) [Entitic vol] 91.7 fL [facility] Monocytes (Bld) [#/Vol] 0.2 10*3/uL 0.0 - 0.7 10*3/uL [facility] Monocytes/100 WBC (Bld) 7.1 % 0.0 - 10.0 % [facility] Neutrophils (Bld) [#/Vol] 1.6 10*3/uL 1.4 - 6.5 10*3/uL [facility] Neutrophils/100 WBC (Bld) 49.8 % 37.0 - 75.0 % [facility] Platelet mean volume (Bld) [Entitic vol] 10.5 fL [facility] Platelets (Bld) [#/Vol] 89 10*3/uL Low 130. 0 - 400.0 10*3/uL [facility] RBC (Bld) [#/Vol] 3.94 10*6/uL Low 4.0 - 5.4 10*6/uL [facility] WBC (Bld) [#/Vol] 3.2 10*3/uL Low 3.6 - 11.0 10*3/uL [facility] COMPREHENSIVE METABOLIC PANE José 01-29-2022 Albumin [Mass/Vol] 3.5 G/dl 3.5 - 5.0 G/dl [facility] Albumin/Globulin [Mass ratio] 1.5 {ratio} [facility] ALP [Catalytic activity/Vol] 51 U/L [facility] ALT [Catalytic activity/Vol] 40 U/L [facility] AST [Catalytic activity/Vol] 33 U/L [facility] Bilirubin [Mass/Vol] 0.3 mg/dL [facility] Calcium [Mass/Vol] 8.6 mg/dL [facility] Chloride [Moles/Vol] 104 mmol/L [facility] CO2 [Moles/Vol] 27 mmol/L [facility] Creatinine [Mass/Vol] 1.06 mg/dL High [facility] GFR COMMENT Average GFR for 60-6 9 years old = 85. [facility] Comment on above: Chronic Kidney disea se, GFR = <60. Kidney failure, GFR = <15. The GFR estimate is not adjusted for extreme body surface area or acute process, nor has it been validated for women or ethnic groups other than and . GFR/1.73 sq M.predicted among blacks MDRD (S/P/Bld) [Vol rate/Area] 68 mL/min/{1.73_m2} ml/min/1.73s q.m [facility] GFR/1.73 sq M.predicted among non-blacks MDRD (S/P/Bld) [Vol rate/Area] 56 mL/min/{1.73_m2} ml/min/1.73s q.m [facility] Glucose post fast [Mass/Vol] 124 mg/dL High [facility] Comment on above: NORMAL <100 mg/dL PREDIABETES 101-126 mg/dL DIABETES 126 mg/dL or higher Interpretation and review of laboratory results Abnormal [facility] Potassium [Moles/Vol] 3.5 mmol/L [facility] Protein [Mass/Vol] 5.9 g/dL Low [facility] Sodium [Moles/Vol] 139 mmol/L [facility] Urea nitrogen [Mass/Vol] 20 mg/dL [facility] D-DIMER,QUANTITATIVEon 01-29 Fibrin D-dimer FEU (PPP) [Mass/Vol] 0.36 <0.50 mg/L FEU [facility] Comment on above: If result is greater than the cutoff value of 0.50 mg/L then the potential for PE or DVT exists. Other conditions exist which may cause a falsely elevated level. Please correlate clinically, including radiological findings and other clinical parameters. [facility] FIBRINOGEN, CLOTTABLEon 01-19 Fibrinogen Coag (PPP) [Mass/Vol] 294.0 mg/dL 171 - 562 mg/dL [facility] MAGNESIUMon 01-29-2022 Magnesium [Mass/Vol] 2.0 mg/dL [facility] No Panel Informationon 01-29 [facility] PROTIME-INRon 01-29-2022 INR Coag (PPP) [Relative time] 0.98 {INR} [facility] Comment on above: 2.0-3.0 THERAPEUTIC RANGE 2.5-3.5 MECHANICAL VALVE RANGE PT Coag (PPP) [Time] 13.2 s [facility] SEDIMENTATION RATE, AUTOMATE Don 01-29-2022 ESR (Bld) [Velocity] 6 mm/h [facility] TROPONIN I, HIGH SENSITIVITY on 01-29-2022 TROPONIN I, HIGH SENSITIVITY 4 pg/mL 0 - 12 pg/mL [facility] Comment on above: Indeterminant: >12 to 100 pg/mL female >20 to 100 pg/mL male Indicative of myocardial injury. Serial sampling is recommended, a change of greater than or equal to 20 pg/mL is indicative of acute coronary syndrome. [facility] C REACTIVE PROTEINon 022 CRP [Mass/Vol] 8.7 mg/L 0 - 10.0 MG/L [facility] CBC, EDIF, PLATELETon 2021 ABSOLUTE BASOPHIL COUNT 0.0 10*3/uL 0.0 - 0.2 10*3/uL [facility] Basophils/100 WBC (Bld) 0.6 % 0.0 - 2.0 % [facility] Differential cell count method Nom (Bld) AUTO DIFF % [facility] Eosinophils (Bld) [#/Vol] 0.20 10*3/uL 0.0 - 0.7 10*3/uL [facility] Eosinophils/100 WBC (Bld) 6.1 % 0.0 - 11.0 % [facility] Erythrocyte distribution width (RBC) [Ratio] 13.7 % 11.5 - 14.5 % [facility] Hematocrit (Bld) [Volume fraction] 36.9 % 36.0 - 48.0 % [facility] Hemoglobin (Bld) [Mass/Vol] 12.9 g/dL [facility] Interpretation and review of laboratory results Abnormal [facility] Lymphocytes (Bld) [#/Vol] 1.40 10*3/uL 1.2 - 3.4 10*3/uL [facility] Lymphocytes/100 WBC (Bld) 42.9 % 20.0 - 55.0 % [facility] MCH (RBC) [Entitic mass] 31.7 pg 26.0 - 35.0 PG [facility] MCHC (RBC) [Mass/Vol] 35.0 g/dL [facility] MCV (RBC) [Entitic vol] 90.8 fL [facility] Monocytes (Bld) [#/Vol] 0.3 10*3/uL 0.0 - 0.7 10*3/uL [facility] Monocytes/100 WBC (Bld) 7.8 % 0.0 - 10.0 % [facility] Neutrophils (Bld) [#/Vol] 1.4 10*3/uL 1.4 - 6.5 10*3/uL [facility] Neutrophils/100 WBC (Bld) 42.6 % 37.0 - 75.0 % [facility] Platelet mean volume (Bld) [Entitic vol] 10.6 fL [facility] Platelets (Bld) [#/Vol] 94 10*3/uL Low 130. 0 - 400.0 10*3/uL [facility] RBC (Bld) [#/Vol] 4.06 10*6/uL 4.0 - 5.4 10*6/uL [facility] WBC (Bld) [#/Vol] 3.3 10*3/uL Low 3.6 - 11.0 10*3/uL [facility] CHEM 7 (LYTES,BUN,CREA,GLUC) on 01-28-2022 Chloride [Moles/Vol] 102 mmol/L [facility] CO2 [Moles/Vol] 29 mmol/L [facility] Creatinine [Mass/Vol] 0.93 mg/dL [facility] GFR COMMENT Average GFR for 60-6 9 years old = 85. [facility] Comment on above: Chronic Kidney disea se, GFR = <60. Kidney failure, GFR = <15. The GFR estimate is not adjusted for extreme body surface area or acute process, nor has it been validated for women or ethnic groups other than and . GFR/1.73 sq M.predicted among blacks MDRD (S/P/Bld) [Vol rate/Area] 79 mL/min/{1.73_m2} ml/min/1.73s q.m [facility] GFR/1.73 sq M.predicted among non-blacks MDRD (S/P/Bld) [Vol rate/Area] 65 mL/min/{1.73_m2} ml/min/1.73s q.m [facility] Glucose post fast [Mass/Vol] 113 mg/dL High [facility] Comment on above: NORMAL <100 mg/dL PREDIABETES 101-126 mg/dL DIABETES 126 mg/dL or higher Interpretation and review of laboratory results Abnormal [facility] Potassium [Moles/Vol] 2.5 mmol/L Critically low [facility] Comment on above: Result called to nany pritchett back by: Galen LAWSON 01/28/2022 @ 05:55 by JDW Sodium [Moles/Vol] 140 mmol/L [facility] Urea nitrogen [Mass/Vol] 20 mg/dL [facility] Cardiac echo study Procedure on 01-28-2022 APPROVED [...] ms MVA PHT 3.88 cm2 MV Dec Trinity 252.46 cm/s2 MV Decel. Time 224.51 (160-240 ms) Tricuspid Valve TR P. Velocity 1.89 m/s RAP Estimate 3 mmHg RVSP 17.33 mmHg TR maxPG 14.33 mmHg CARDIOLOGY Phill Nicholas, DO - 01/28/2022 APPROVED REPORT Other Information [...] Aortic Root 2.82 cm F: 2.7 - 3.4SOVL15 mL Aortic Root Index1.2 cm/m2LV Ywmaml45.91 mL F: 46 - 106 Ascending Aorta 2.87 cm F: 2.3 - 3.1LV Volume Index42.07 mL/m2 F: 29 - 61 Ascending Aorta Index: 1.3 cm/m2RV Major 4.14 cm Left Atrium 4.17 cm F: 2.7 - 3.8RV Minor8.00 cm LVOT2.07 cm (M/F) 1.5-2.5YRPYo1.49 cm (M/F) 2.5-4.1 TAPSE 2.6 >1.7 cmRight [...] Ratio0.73MV PHT56.69 ms MVA PHT3.88 cm2MV Dec Trinity 252.46 cm/s2 MV Decel. Okez159.51 (160-240 ms) Tricuspid Valve TR P. Velocity1.89 m/sRAP Estimate3 mmHg RVSP17.33 mmHgTR [address] 14.[address] [facility] Radiology Study observation (narrative) [facility] LACTATE, BLOODon 01-28-2022 Lactate [Moles/Vol] 1.7 mmol/L 0.7 - 2. 0 mmol/L [facility] POTASSIUMon 01-28-2022 Interpretation and review of laboratory results Abnormal [facility] Potassium [Moles/Vol] 3.3 mmol/L Low [facility] SEDIMENTATION RATE, AUTOMATE Don 01-28-2022 ESR (Bld) [Velocity] 4 mm/h [facility] CBC, EDIF, PLATELETon 2021 ABSOLUTE BASOPHIL COUNT 0.0 10*3/uL 0.0 - 0.2 10*3/uL [facility] Basophils/100 WBC (Bld) 0.7 % 0.0 - 2.0 % [facility] Differential cell count method Nom (Bld) AUTO DIFF % [facility] Eosinophils (Bld) [#/Vol] 0.20 10*3/uL 0.0 - 0.7 10*3/uL [facility] Eosinophils/100 WBC (Bld) 4.4 % 0.0 - 11.0 % [facility] Erythrocyte distribution width (RBC) [Ratio] 13.5 % 11.5 - 14.5 % [facility] Hematocrit (Bld) [Volume fraction] 44.5 % 36.0 - 48.0 % [facility] Hemoglobin (Bld) [Mass/Vol] 15.6 g/dL [facility] Interpretation and review of laboratory results Abnormal [facility] Lymphocytes (Bld) [#/Vol] 1.80 10*3/uL 1.2 - 3.4 10*3/uL [facility] Lymphocytes/100 WBC (Bld) 34.0 % 20.0 - 55.0 % [facility] MCH (RBC) [Entitic mass] 31.5 pg 26.0 - 35.0 PG [facility] MCHC (RBC) [Mass/Vol] 35.1 g/dL [facility] MCV (RBC) [Entitic vol] 89.7 fL [facility] Monocytes (Bld) [#/Vol] 0.3 10*3/uL 0.0 - 0.7 10*3/uL [facility] Monocytes/100 WBC (Bld) 5.6 % 0.0 - 10.0 % [facility] Neutrophils (Bld) [#/Vol] 3.0 10*3/uL 1.4 - 6.5 10*3/uL [facility] Neutrophils/100 WBC (Bld) 55.3 % 37.0 - 75.0 % [facility] Platelet mean volume (Bld) [Entitic vol] 10.1 fL [facility] Platelets (Bld) [#/Vol] 129 10*3/uL Low 130. 0 - 400.0 10*3/uL [facility] RBC (Bld) [#/Vol] 4.96 10*6/uL 4.0 - 5.4 10*6/uL [facility] WBC (Bld) [#/Vol] 5.4 10*3/uL 3.6 - 11.0 10*3/uL [facility] CHEM 7 (LYTES,BUN,CREA,GLUC) on 01-27-2022 Chloride [Moles/Vol] 98 mmol/L [facility] CO2 [Moles/Vol] 25 mmol/L [facility] Creatinine [Mass/Vol] 1.06 mg/dL High [facility] GFR COMMENT Average GFR for 60-6 9 years old = 85. [facility] Comment on above: Chronic Kidney disea se, GFR = <60. Kidney failure, GFR = <15. The GFR estimate is not adjusted for extreme body surface area or acute process, nor has it been validated for women or ethnic groups other than and . GFR/1.73 sq M.predicted among blacks MDRD (S/P/Bld) [Vol rate/Area] 68 mL/min/{1.73_m2} ml/min/1.73s q.m [facility] GFR/1.73 sq M.predicted among non-blacks MDRD (S/P/Bld) [Vol rate/Area] 56 mL/min/{1.73_m2} ml/min/1.73s q.m [facility] Glucose post fast [Mass/Vol] 141 mg/dL High [facility] Comment on above: NORMAL <100 mg/dL PREDIABETES 101-126 mg/dL DIABETES 126 mg/dL or higher Interpretation and review of laboratory results Abnormal [facility] Potassium [Moles/Vol] 2.9 mmol/L Critically low [facility] Comment on above: Result called to nany pritchett back by: Guanakito BRUNO 01/27/2022 @ 16:51 by GOMEZ Sodium [Moles/Vol] 136 mmol/L [facility] Urea nitrogen [Mass/Vol] 24 mg/dL High [facility] CT Head WO contraston 2021 IMPRESSION: Incidental small left parietal meningioma unchanged. RADIOLOGY EXAMINATION: CT HEAD WITHOUT CONTRAST HISTORY: 61-year-old female high blood pressure, headache. COMPARISON: [facility] BRAIN 12/28/2021. TECHNIQUE: CT examination of the [...] 61-year-old female high blood pressure, headache. COMPARISON: [place] [facility] BRAIN 12/28/2021. TECHNIQUE: CT examination of [...] IMPRESSION: Incidental small left parietal meningioma unchanged. [facility] Radiology Study observation (narrative) [facility] CT Head WO contrastOrdered B y: Wilman Hyman on 01-27-2022 [employer] Work Phone: INFLUENZA A AND B, PCRon FLUAV and FLUBV Ag IF Nom (Unsp spec) Negative NEGATIVE [facility] ROI² FLUBV Ag IA Ql (Unsp spec) Negative NEGATIVE [facility] ROI² Comment on above: TESTING PERFORMED BY KRANTHI [facility] NOVEL CORONAVIRUS LAB 1 - NA SOPHARYNGEALon 01-27-2022 NARRATIVE -1 This test was performed using isothermal KRANTHI and has been approved as Emergency Use Authorization (EUA) for the qualitative detection [id number] nucleic acid. [facility] SARS-CoV-2 (COVID-19) RNA KRANTHI+probe Ql (Unsp spec) Not detected NOT DETECTED [facility] Comment on above: Negative results do [...] patient is critically ill or clinically deteriorating. Ziebel [facility] ROI² No Panel Informationon 01-27 [facility] Views APon 01-27-2022 Impression: [...] abnormality. IMPRESSION Impression: No acute cardiopulmonary abnormality. [facility] Radiology Study observation (narrative) [facility] Portable XR Chest Views APOr dered By: Evan Denis on 01-27-2022 [facility] Work Phone: TROPONIN I, HIGH SENSITIVITY on 01-27-2022 TROPONIN I, HIGH SENSITIVITY 11 pg/mL 0 - 12 pg/mL [facility] Comment on above: Indeterminant: >12 to 100 pg/mL female >20 to 100 pg/mL male Indicative of myocardial injury. Serial sampling is recommended, a change of greater than or equal to 20 pg/mL is indicative of acute coronary syndrome. [facility] TROPONIN I, HIGH SENSITIVITY 10 pg/mL 0 - 12 pg/mL [facility] Comment on above: Indeterminant: >12 to 100 pg/mL female >20 to 100 pg/mL male Indicative of myocardial injury. Serial sampling is recommended, a change of greater than or equal to 20 pg/mL is indicative of acute coronary syndrome. [facility] TSHon 01-27-2022 TSH Qn 1.649 m[IU]/L [facility] URINALYSIS, MACROon 01-28-20 22 Bilirubin Ql (U) Negative NEGATIVE [facility] Clarity (U) CLEAR CLEAR [facility] Color (U) YELLOW YELLOW [facility] Glucose Test strip (U) [Mass/Vol] Negative NEGATIVE mg/dl [facility] Hemoglobin Ql (U) Negative NEGATIVE [facility] Interpretation and review of laboratory results Abnormal [facility] Ketones (U) [Mass/Vol] TRACE Abnormal NEGAT JHONY mg/dl [facility] Leukocyte esterase Test strip Ql (U) SMALL Abnormal NEGATIVE [facility] Nitrite Ql (U) Negative NEGATIVE [facility] pH (U) 5.5 [pH] [facility] Protein Ql (U) Negative NEGATIVE mg/dl [facility] Specific gravity (U) [Rel density] 1.025 [facility] Urobilinogen (U) [Mass/Vol] 0.2 mg/dL [facility] URINE MICROSCOPICon 01-28-20 22 Bacteria LM.HPF (Urine sed) [#/Area] Negative NEGATIVE [facility] Casts LM.LPF (Urine sed) [#/Area] NONE NONE /LPF [facility] Crystals LM Nom (Urine sed) NONE NONE [facility] Epithelial cells LM Ql (Urine sed) NONE /HPF [facility] Mucus Ql (Urine sed) Negative NEGATIVE [facility] RBC LM.HPF (Urine sed) [#/Area] Negative NEGATIVE /HPF [facility] Urine sediment comments LM Mg (Urine sed) CULTURE CRITERIA NOT MET, NO CULTURE PERFORMED. [facility] WBC LM.HPF (Urine sed) [#/Area] Negative NEGATIVE /HPF [facility] XR Shoulder Right 2+ Views ( Standard)Ordered By: Leticia Sylvester on 03-28-2021 No acute osseous abnormality. Moderate glenohumeral joint osteoarthritis. Mild acromioclavicular joint osteoarthritis. Grossly no soft tissue abnormality. Recommend ultrasound or cross-sectional imaging if persistent concern for underlying soft tissue mass. [employer] Workstation ID: [id number] [facility] EXAMINATION: XR SHOULDER RIGHT 2+ [...] of ACDF hardware. Soft tissues appear unremarkable. [facility] Interface, Rad In Fu ji Speechq - 03/28/2021 11:38 PM EDT EXAMINATION: [...] persistent concern for underlying soft tissue mass. [employer] Workstation ID: [id number] [facility] CHEM 7 (LYTES,BUN,CREA,GLUC) on 01-16-2021 Anion gap [Moles/Vol] 15 mmol/L Normal 7-17 [facility] Comment on above: Performed By: #### C HM7, HFP, HDLT #### U [facility] (DEFAULT) [address] [address] Chloride [Moles/Vol] 99 mmol/L Normal 98-108 [facility] Comment on above: Performed By: #### C HM7, HFP, HDLT #### U [facility] (DEFAULT) [address] [address] CO2 [Moles/Vol] 31 mmol/L High 22-30 [facility] Comment on above: Performed By: #### C HM7, HFP, HDLT #### U [facility] (DEFAULT) [address] [place] [id number] Creatinine [Mass/Vol] 0.93 mg/dL Normal 0.50-1.20 [facility] Comment on above: Performed By: #### C HM7, HFP, HDLT #### U [facility] (DEFAULT) [address] [place] [id number] EST GFR, >=60 Normal >=60 [facility] Comment on above: Performed By: #### C HM7, HFP, HDLT #### [facility] (DEFAULT) [address] [place] [address] [id number] EST GFR,Non >=60 Normal >=60 [facility] Comment on above: Performed By: #### C HM7, HFP, HDLT #### [facility] (DEFAULT) [address] [place] [address] 13671 Glucose [Mass/Vol] 96 mg/dL Normal 70-99 [facility] Comment on above: Performed By: #### C HM7, HFP, HDLT #### [facility] (DEFAULT) [address] [place] [address] 64797 Osmolality [Osmolality] 296 mosm/kg Normal 278-305 [facility] Comment on above: Performed By: #### C HM7, HFP, HDLT #### [facility] (DEFAULT) [address] [place] [address] 88433 Potassium [Moles/Vol] 3.0 mmol/L Low 3.5-5.0 [facility] Comment on above: Performed By: #### C HM7, HFP, HDLT #### [facility] (DEFAULT) [address] [place] [address] 12987 Sodium [Moles/Vol] 142 mmol/L Normal 133-143 [facility] Comment on above: Performed By: #### C HM7, HFP, HDLT #### [facility] (DEFAULT) [address] [place] [address] 76928 Urea nitrogen [Mass/Vol] 18 mg/dL Normal 7-22 [facility] Comment on above: Performed By: #### C HM7, HFP, HDLT #### [facility] (DEFAULT) [address] [place] [address] 23296 Urea nitrogen/Creatinine [Mass ratio] 19 mg/mg Normal [facility] Comment on above: Performed By: #### C HM7, HFP, HDLT #### [facility] (DEFAULT) [address] [place] [address] [phone] HEPATIC FUNCTION PANELon Albumin [Mass/Vol] 4.4 g/dL Normal 3.5-5.0 [facility] Comment on above: Performed By: #### C HM7, HFP, HDLT #### [facility] (DEFAULT) [address] [place] [address] 50170 ALP [Catalytic activity/Vol] 75 U/L Normal 32-126 [facility] Comment on above: Performed By: #### C HM7, HFP, HDLT #### [facility] (DEFAULT) [address] [place] [address] 89677 ALT [Catalytic activity/Vol] 45 U/L Normal 9-48 [facility] Comment on above: Performed By: #### C HM7, HFP, HDLT #### [facility] (DEFAULT) [address] [place] [address] 29961 AST [Catalytic activity/Vol] 33 U/L Normal 14-40 [facility] Comment on above: Performed By: #### C HM7, HFP, HDLT #### [facility] (DEFAULT) [address] [place] [address] 15671 Bilirubin [Mass/Vol] 0.8 mg/dL Normal <1.5 [facility] Comment on above: Performed By: #### C HM7, HFP, HDLT #### [facility] (DEFAULT) [address] [place] [address] 16404 Bilirubin.indirect [Mass/Vol] 0.1 mg/dL Normal <0.3 [facility] Comment on above: Performed By: #### C HM7, HFP, HDLT #### [facility] (DEFAULT) [address] [place] [address] 12685 Protein [Mass/Vol] 6.8 g/dL Normal 6.4-8.3 [facility] Comment on above: Performed By: #### C HM7, HFP, HDLT #### [facility] (DEFAULT) [address] [place] [address] 99423 LIPID PANEL W CALCULATED LDL on 01-16-2021 Calculated LDL Cholesterol 125 mg/dL High 0-99 [facility] Comment on above: Result Comment: [<10 0 mg/dL: Optimal] [100-129 mg/dL: Near Optimal] [130-159 mg/dL: Borderline High] [160-189 mg/dL: High] [>189 mg/dL: Very High] Performed By: #### C HM7, HFP, HDLT #### [facility] (DEFAULT) [address] [place] [address] 16136 Cholesterol [Mass/Vol] 230 mg/dL High <200 [facility] Comment on above: Result Comment: [<20 0 mg/dL: Desirable] [200-239 mg/dL: Borderline High] [>239 mg/dL: High] Performed By: #### C HM7, HFP, HDLT #### [facility] (DEFAULT) [address] [place] [address] 22856 Cholesterol in HDL [Mass/Vol] 43 mg/dL Normal >=40 [facility] Comment on above: Result Comment: [<40 mg/dL: Low (High Risk)] [>59 mg/dL: High (Low Risk)] Performed By: #### C HM7, HFP, HDLT #### [facility] (DEFAULT) [address] [place] [address] 52480 Non HDL Cholesterol 187 mg/dL High <130 [facility] Comment on above: Performed By: #### C HM7, HFP, HDLT #### [facility] (DEFAULT) [address] [place] [address] 95694 Total Cholesterol/HDL Ratio 5.3 High <4.5 [facility] Comment on above: Performed By: #### C HM7, HFP, HDLT #### [facility] (DEFAULT) [address] [place] [address] 79601 Triglyceride [Mass/Vol] 308 mg/dL High <150 O [facility] Comment on above: Result Comment: [<15 0 mg/dL: Desirable] [150-199 mg/dL: Borderline] [200-499 mg/dL: High] [>500 mg/dL: Very High] Performed By: #### C HM7, HFP, HDLT #### [facility] (DEFAULT) [address] [place] [address] 87149 PTH INTACTon 01-16-2021 Intact PTH 79.3 pg/mL High 14.0-72.0 [facility] Comment on above: Performed By: #### I PTH #### [facility] (DEFAULT) [address] [place] [address] 67591 TSHon 01-16-2021 TSH 3.684 uIU/mL Normal 0.550-4.780 [facility] Comment on above: Performed By: #### T SH #### [facility] (DEFAULT) [address] [place] [address] 38600 VITAMIN D (25-HYDROXY,TOTAL) on 01-16-2021 25-OH Vitamin D Total 18.3 ng/mL Low 30.0-100.0 [facility] Comment on above: Order Comment: Vitam in D values have been shown to be falsely decreased in lipemic samples and should be interpreted with caution. Result Comment: <10 Deficiency 10-29 Insufficiency 30-100 Optimal Level >100 Possible Toxicity Performed By: #### D 25OH #### [facility] (DEFAULT) [address] [place] [address] 14271 Basic Metabolic Panelon 11-19 Anion gap [Moles/Vol] 8 mmol/L Low 10 - 2 0 mmol/L [facility] Calcium [Mass/Vol] 7.8 mg/dL Low 8.4 - 10. 2 mg/dL [facility] Chloride [Moles/Vol] 112 mmol/L High 98 - 10 8 mmol/L [facility] Creatinine [Mass/Vol] 0.98 mg/dL 0.40 - 1.[address] [facility] GFR/1.73 sq M predicted among non-blacks MDRD (S/P/Bld) [Vol rate/Area] The eGFR should be used for monitoring renal function only and not for medication dosing. [facility] GFR/1.73 sq M.predicted CKD-EPI (S/P/Bld) [Vol rate/Area] 63 >=60 mL/min/1.73 m2 [facility] Glucose [Mass/Vol] 94 mg/dL 65 - 99 mg/dL [facility] HCO3 [Moles/Vol] 28 mmol/L 21 - 32 mmol/L [facility] Interpretation and review of laboratory results Abnormal [facility] Potassium [Moles/Vol] 3.8 mmol/L 3.5 - 5.1 mmol/L [facility] Sodium [Moles/Vol] 144 mmol/L 135 - 145 mmol/L [facility] Urea nitrogen [Mass/Vol] 14 mg/dL 8 - 25 mg/dL [facility] Urea nitrogen/Creatinine [Mass ratio] 14.3 mg/mg [facility] CBC WITH AUTO DIFFERENTIALon 12-01-2020 Basophils (Bld) [#/Vol] 0.01 10*3/uL [facility] Basophils/100 WBC (Bld) 0.3 % [facility] Eosinophils (Bld) [#/Vol] 0.18 10*3/uL [facility] Eosinophils/100 WBC (Bld) 5.1 % [facility] Erythrocyte distribution width (RBC) [Entitic vol] 14.6 % 11.6 - 14.8 % [facility] Hematocrit (Bld) [Volume fraction] 35.4 % Low 36.0 - 46.0 % [facility] Hemoglobin (Bld) [Mass/Vol] 11.8 g/dL Low 12.0 - 16.0 g/dL [facility] Immature granulocytes (Bld) [#/Vol] 0.01 10*3/uL [facility] Immature granulocytes/100 WBC (Bld) 0.30 % [facility] Comment on above: The IG parameter is the percentage of metamyelocytes, myelocytes and promyelocytes. An immature granulocyte count (IG) of 1% or more suggests the possibility of infection, an IG count of 3% is very likely related to an infection. Interpretation and review of laboratory results Abnormal [facility] Lymphocytes (Bld) [#/Vol] 1.33 10*3/uL [facility] Lymphocytes/100 WBC (Bld) 38.0 % [facility] MCH (RBC) [Entitic mass] 31.1 pg 26.0 - 34.0 pg [facility] MCHC (RBC) [Mass/Vol] 33.3 g/dL 31.0 - 37.0 g/dL [facility] MCV (RBC) [Entitic vol] 93.2 fL 80.0 - 100.0 fL [facility] Monocytes (Bld) [#/Vol] 0.20 10*3/uL Low [facility] Monocytes/100 WBC (Bld) 5.7 % [facility] Neutrophils (Bld) [#/Vol] 1.77 10*3/uL [facility] Neutrophils/100 WBC (Bld) 50.6 % [facility] Nucleated RBC (Bld) [#/Vol] 0.00 10*3/uL [facility] Nucleated RBC/100 WBC (Bld) [Ratio] 0.0 % [facility] Platelet mean volume (Bld) [Entitic vol] 11.6 fL 9.4 - 12.4 fL [facility] Platelets (Bld) [#/Vol] 96 10*3/uL Low [facility] RBC (Bld) [#/Vol] 3.80 10*6/uL Low [facility] WBC (Bld) [#/Vol] 3.50 10*3/uL Low [facility] Basic Metabolic Panelon 11-19 Anion gap [Moles/Vol] 9 mmol/L Low 10 - 2 0 mmol/L [facility] Calcium [Mass/Vol] 7.4 mg/dL Low 8.4 - 10. 2 mg/dL [facility] Chloride [Moles/Vol] 111 mmol/L High 98 - 10 8 mmol/L [facility] Creatinine [Mass/Vol] 1.00 mg/dL 0.40 - 1.[address] [facility] GFR/1.73 sq M predicted among non-blacks MDRD (S/P/Bld) [Vol rate/Area] The eGFR should be used for monitoring renal function only and not for medication dosing. [facility] GFR/1.73 sq M.predicted CKD-EPI (S/P/Bld) [Vol rate/Area] 62 >=60 mL/min/1.73 m2 [facility] Glucose [Mass/Vol] 95 mg/dL 65 - 99 mg/dL [facility] HCO3 [Moles/Vol] 26 mmol/L 21 - 32 mmol/L [facility] Interpretation and review of laboratory results Abnormal [facility] Potassium [Moles/Vol] 3.7 mmol/L 3.5 - 5.1 mmol/L [facility] Sodium [Moles/Vol] 142 mmol/L 135 - 145 mmol/L [facility] Urea nitrogen [Mass/Vol] 15 mg/dL 8 - 25 mg/dL [facility] Urea nitrogen/Creatinine [Mass ratio] 15.0 mg/mg [facility] CBC WITH AUTO DIFFERENTIALon 11-30-2020 Basophils (Bld) [#/Vol] 0.02 10*3/uL [facility] Basophils/100 WBC (Bld) 0.6 % [facility] Eosinophils (Bld) [#/Vol] 0.18 10*3/uL [facility] Eosinophils/100 WBC (Bld) 5.0 % [facility] Erythrocyte distribution width (RBC) [Entitic vol] 14.6 % 11.6 - 14.8 % [facility] Hematocrit (Bld) [Volume fraction] 36.5 % 36.0 - 46.0 % [facility] Hemoglobin (Bld) [Mass/Vol] 12.1 g/dL 12.0 - 16.0 g/dL [facility] Immature granulocytes (Bld) [#/Vol] 0.02 10*3/uL [facility] Immature granulocytes/100 WBC (Bld) 0.60 % [facility] Comment on above: The IG parameter is the percentage of metamyelocytes, myelocytes and promyelocytes. An immature granulocyte count (IG) of 1% or more suggests the possibility of infection, an IG count of 3% is very likely related to an infection. Interpretation and review of laboratory results Abnormal [facility] Lymphocytes (Bld) [#/Vol] 1.37 10*3/uL [facility] Lymphocytes/100 WBC (Bld) 38.3 % [facility] MCH (RBC) [Entitic mass] 30.9 pg 26.0 - 34.0 pg [facility] MCHC (RBC) [Mass/Vol] 33.2 g/dL 31.0 - 37.0 g/dL [facility] MCV (RBC) [Entitic vol] 93.1 fL 80.0 - 100.0 fL [facility] Monocytes (Bld) [#/Vol] 0.23 10*3/uL Low [facility] Monocytes/100 WBC (Bld) 6.4 % [facility] Neutrophils (Bld) [#/Vol] 1.76 10*3/uL [facility] Neutrophils/100 WBC (Bld) 49.1 % [facility] Nucleated RBC (Bld) [#/Vol] 0.00 10*3/uL [facility] Nucleated RBC/100 WBC (Bld) [Ratio] 0.0 % [facility] Platelet mean volume (Bld) [Entitic vol] 11.6 fL 9.4 - 12.4 fL [facility] Platelets (Bld) [#/Vol] 102 10*3/uL Low [facility] RBC (Bld) [#/Vol] 3.92 10*6/uL Low [facility] WBC (Bld) [#/Vol] 3.58 10*3/uL Low [facility] Basic Metabolic Panelon 11-19 Anion gap [Moles/Vol] 8 mmol/L Low 10 - 2 0 mmol/L [facility] Calcium [Mass/Vol] 7.5 mg/dL Low 8.4 - 10. 2 mg/dL [facility] Chloride [Moles/Vol] 106 mmol/L 98 - 10 8 mmol/L [facility] Creatinine [Mass/Vol] 1.02 mg/dL 0.40 - 1.[address] [facility] GFR/1.73 sq M predicted among non-blacks MDRD (S/P/Bld) [Vol rate/Area] The eGFR should be used for monitoring renal function only and not for medication dosing. [facility] GFR/1.73 sq M.predicted CKD-EPI (S/P/Bld) [Vol rate/Area] 60 >=60 mL/min/1.73 m2 [facility] Glucose [Mass/Vol] 100 mg/dL High 65 - 99 mg/dL [facility] HCO3 [Moles/Vol] 30 mmol/L 21 - 32 mmol/L [facility] Interpretation and review of laboratory results Abnormal [facility] Potassium [Moles/Vol] 3.0 mmol/L Low 3.5 - 5.1 mmol/L [facility] Sodium [Moles/Vol] 141 mmol/L 135 - 145 mmol/L [facility] Urea nitrogen [Mass/Vol] 16 mg/dL 8 - 25 mg/dL [facility] Urea nitrogen/Creatinine [Mass ratio] 15.7 mg/mg [facility] CBC WITH AUTO DIFFERENTIALon 11-29-2020 Basophils (Bld) [#/Vol] 0.03 10*3/uL [facility] Basophils/100 WBC (Bld) 0.5 % [facility] Eosinophils (Bld) [#/Vol] 0.26 10*3/uL [facility] Eosinophils/100 WBC (Bld) 4.8 % [facility] Erythrocyte distribution width (RBC) [Entitic vol] 14.3 % 11.6 - 14.8 % [facility] Hematocrit (Bld) [Volume fraction] 38.0 % 36.0 - 46.0 % [facility] Hemoglobin (Bld) [Mass/Vol] 12.5 g/dL 12.0 - 16.0 g/dL [facility] Immature granulocytes (Bld) [#/Vol] 0.01 10*3/uL [facility] Immature granulocytes/100 WBC (Bld) 0.20 % [facility] Comment on above: The IG parameter is the percentage of metamyelocytes, myelocytes and promyelocytes. An immature granulocyte count (IG) of 1% or more suggests the possibility of infection, an IG count of 3% is very likely related to an infection. Interpretation and review of laboratory results Abnormal [facility] Lymphocytes (Bld) [#/Vol] 1.93 10*3/uL [facility] Lymphocytes/100 WBC (Bld) 35.3 % [facility] MCH (RBC) [Entitic mass] 30.9 pg 26.0 - 34.0 pg [facility] MCHC (RBC) [Mass/Vol] 32.9 g/dL 31.0 - 37.0 g/dL [facility] MCV (RBC) [Entitic vol] 94.1 fL 80.0 - 100.0 fL [facility] Monocytes (Bld) [#/Vol] 0.36 10*3/uL [facility] Monocytes/100 WBC (Bld) 6.6 % [facility] Neutrophils (Bld) [#/Vol] 2.87 10*3/uL [facility] Neutrophils/100 WBC (Bld) 52.6 % [facility] Nucleated RBC (Bld) [#/Vol] 0.00 10*3/uL [facility] Nucleated RBC/100 WBC (Bld) [Ratio] 0.0 % [facility] Platelet mean volume (Bld) [Entitic vol] 12.0 fL 9.4 - 12.4 fL [facility] Platelets (Bld) [#/Vol] 126 10*3/uL Low [facility] RBC (Bld) [#/Vol] 4.04 10*6/uL [facility] WBC (Bld) [#/Vol] 5.46 10*3/uL [facility] Potassium Levelon 11-29-2020 Interpretation and review of laboratory results Normal [facility] Potassium [Moles/Vol] 4.0 mmol/L 3.5 - 5.1 mmol/L [facility] Ultrasound duplex venous leg righton 11-29-2020 Interface, Rad In [facility] Xper Echopacs - 11/29/2020 3:52 PM EST Patient Info Name: MICHELINE FOX Age: 60 years : 1960 Gender: Female Exam Date: 11/29/2020 2:49 PM Patient Status: Inpatient Loading Machine Operator: Jo Ann Mari RVT Referring Physician: ERMELINDA Kennedy; Indications M79.661 - Pain in right lower leg Procedure Description 77101 Duplex examination using B-mode, color and spectral [...] Garret Rios MD on 11/29/2020 03:51 PM [facility] Patient Info Name: MICHELINE FOX Age: 60 years : 1960 Gender: Female Exam Date: 11/29/2020 2:49 PM Patient Status: Inpatient Loading Machine Operator: Jo Ann Mari RVT Referring Physician: ERMELINDA Kennedy; Indications M79.661 - Pain in right lower leg Procedure Description 86762 Duplex examination using B-mode, color and spectral [...] Garret Rios MD on 11/29/2020 03:51 PM [facility] BMPon 11-28-2020 Anion gap [Moles/Vol] 11 mmol/L 10 - 2 0 mmol/L [facility] Calcium [Mass/Vol] 8.0 mg/dL Low 8.4 - 10. 2 mg/dL [facility] Chloride [Moles/Vol] 107 mmol/L 98 - 10 8 mmol/L [facility] Creatinine [Mass/Vol] 0.97 mg/dL 0.40 - 1.[address] [facility] GFR/1.73 sq M predicted among non-blacks MDRD (S/P/Bld) [Vol rate/Area] The eGFR should be used for monitoring renal function only and not for medication dosing. [facility] GFR/1.73 sq M.predicted CKD-EPI (S/P/Bld) [Vol rate/Area] 64 >=60 mL/min/1.73 m2 [facility] Glucose [Mass/Vol] 100 mg/dL High 65 - 99 mg/dL [facility] HCO3 [Moles/Vol] 28 mmol/L 21 - 32 mmol/L [facility] Interpretation and review of laboratory results Abnormal [facility] Potassium [Moles/Vol] 3.7 mmol/L 3.5 - 5.1 mmol/L [facility] Comment on above: moderate hemolysis, result may be falsely increased. Sodium [Moles/Vol] 142 mmol/L 135 - 145 mmol/L [facility] Urea nitrogen [Mass/Vol] 16 mg/dL 8 - 25 mg/dL [facility] Urea nitrogen/Creatinine [Mass ratio] 16.5 mg/mg [facility] CBC WITH AUTO DIFFERENTIALon 11-28-2020 Basophils (Bld) [#/Vol] 0.04 10*3/uL [facility] Basophils/100 WBC (Bld) 0.7 % [facility] Eosinophils (Bld) [#/Vol] 0.23 10*3/uL [facility] Eosinophils/100 WBC (Bld) 4.1 % [facility] Erythrocyte distribution width (RBC) [Entitic vol] 14.4 % 11.6 - 14.8 % [facility] Hematocrit (Bld) [Volume fraction] 40.7 % 36.0 - 46.0 % [facility] Hemoglobin (Bld) [Mass/Vol] 13.9 g/dL 12.0 - 16.0 g/dL [facility] Immature granulocytes (Bld) [#/Vol] 0.02 10*3/uL [facility] Immature granulocytes/100 WBC (Bld) 0.40 % [facility] Comment on above: The IG parameter is the percentage of metamyelocytes, myelocytes and promyelocytes. An immature granulocyte count (IG) of 1% or more suggests the possibility of infection, an IG count of 3% is very likely related to an infection. Interpretation and review of laboratory results Abnormal [facility] Lymphocytes (Bld) [#/Vol] 1.71 10*3/uL [facility] Lymphocytes/100 WBC (Bld) 30.8 % [facility] MCH (RBC) [Entitic mass] 30.8 pg 26.0 - 34.0 pg [facility] MCHC (RBC) [Mass/Vol] 34.2 g/dL 31.0 - 37.0 g/dL [facility] MCV (RBC) [Entitic vol] 90.0 fL 80.0 - 100.0 fL [facility] Monocytes (Bld) [#/Vol] 0.31 10*3/uL [facility] Monocytes/100 WBC (Bld) 5.6 % [facility] Neutrophils (Bld) [#/Vol] 3.24 10*3/uL [facility] Neutrophils/100 WBC (Bld) 58.4 % [facility] Nucleated RBC (Bld) [#/Vol] 0.00 10*3/uL [facility] Nucleated RBC/100 WBC (Bld) [Ratio] 0.0 % [facility] Platelet mean volume (Bld) [Entitic vol] 11.6 fL 9.4 - 12.4 fL [facility] Platelets (Bld) [#/Vol] 125 10*3/uL Low [facility] RBC (Bld) [#/Vol] 4.52 10*6/uL [facility] WBC (Bld) [#/Vol] 5.55 10*3/uL [facility] COVID-19/Influenza A,B [facility] 11-28-2020 Influenza A Not Detected Not Detected [facility] Influenza B Not Detected Not Detected [facility] Interpretation and review of laboratory results Normal [facility] SARS-CoV-2 Not Detected Not Detected [facility] This test was performed under [...] at the following links: For Healthcare Providers: https://[email or web address]/[place]/296302/download For Patients: [email or web address]://[email or web address]/[place]/978547/download [facility] Lactic Acid, Plasmaon 2020 Interpretation and review of laboratory results Normal [facility] Lactate [Moles/Vol] 1.6 mmol/L 0.6 - 2. 0 mmol/L [facility] XR FOOT RIGHT 3+ VIEWS [...] to the proximal 1st and 2nd metacarpal. [facility] 1. Mild soft tissue swelling of the proximal aspect of the right foot. No fracture dislocation or bony lesion is noted. 2. Medial artifact of the midfoot as noted above. Workstation ID: [id number] [facility] Interface, Rad In Fu ji Speechq - 11/28/2020 5:53 PM EST EXAMINATION: [...] midfoot as noted above. Workstation ID: [id number] [facility] Ultrasound duplex venous leg s bilaton 11-19-2020 Patient Info Name: MICHELINE FOX Age: 60 years : 1960 Gender: Female Exam Date: 11/19/2020 3:13 PM Patient Status: Outpatient Loading Machine Operator: Sofia Chappell RDMS, RVT Referring Physician: DIGNA REAGAN ; Indications M79.605 - Pain in left leg M79.604 - Pain in right leg - Bilateral pain of leg and foot Procedure Description 07148 Duplex examination using B-mode, color and spectral Doppler of extremity veins including responses to compression and other maneuvers; complete bilateral study. Conclusions * No evidence of deep or superficial vein thrombosis in either lower extremity. Risk Factors Patient has a history of hypertension and tobacco use-previous. . Report Signatures Finalized by Garret Rios MD on 11/19/2020 04:25 PM [facility] Interface, Rad In [facility] Xper Echopacs - 11/19/2020 4:25 PM EST Patient Info Name: MICHELINE FOX Age: 60 years : 1960 Gender: Female Exam Date: 11/19/2020 3:13 PM Patient Status: Outpatient Loading Machine Operator: Sofia Chappell RDMS, NATT Referring Physician: DIGNA REAGAN ; Indications M79.605 - Pain in left leg M79.604 - Pain in right leg - Bilateral pain of leg and foot Procedure Description 18230 Duplex examination using B-mode, color and spectral Doppler of extremity veins including responses to compression and other maneuvers; complete bilateral study. Conclusions * No evidence of deep or superficial vein thrombosis in either lower extremity. Risk Factors Patient has a history of hypertension and tobacco use-previous. . Report Signatures Finalized by Garret Rios MD on 11/19/2020 04:25 PM [facility] [facility] Fluoroscopy Timeon This is an auto finalized result. Please refer to patient chart for further information. [facility] SURG PATH REQUESTon 11-13-19 Case Report Normal [facility] Comment on above: Result Comment: Surg ical Pathology Report Case: [id number] Authorizing Provider: Isael Hall MD Collected: 11/13/2020 09:05 AM Ordering Location: [facility] Received: 11/13/2020 09:52 AM Pathologist: Verito Caal MD Specimen: STOMACH, antrum r/o hp Performed By: #### S URGP #### [facility] (DEFAULT) [address] [place] [address] Clinical History Preop Diagnosis: Lef t upper quadrant abdominal pain. S/p bariatric surgery. R/o HP. Medical History: Chronic hepatitis C without mention of hepatic coma. Anxiety. Obesity. Adverse drug reaction. Shingles. Depression. Hypertension. Kidney infection. Hernia of abdominal cavity. Normal [facility] Comment on above: Performed By: #### S URGP #### [facility] (DEFAULT) [address] [place] [address] Diagnosis Comments Deeper histologic sections were used in the interpretation of this case, and show no additional histopathologic. findings. [facility] Comment on above: Performed By: #### S URGP #### [facility] (DEFAULT) [address] [place] [id number] Gross Description Normal [facility] Comment on above: Result Comment: The specimen is received in one properly labeled container with the patient's name and accession number. A. The specimen is designated antrum r/o HP and consists of two fragments of keene-pink soft tissue, up to 0.3 cm in greatest dimension. TE 1 Lab Use Only: JobID [id number] Grosser for this case was: Slime Rod Performed By: #### S URGP #### [facility] (DEFAULT) [address] [place] [address] Images Normal [facility] Comment on above: Performed By: #### S URGP #### [facility] (DEFAULT) [address] [place] [address] Microscopic Description A microscopic examination was performed. 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 Digna Reagan [phone] Result Comment: This test was performed under [...] at the following links: For Healthcare Providers: https://www.fda.gov/media/302038/download For Patients: https://www.fda.gov/media/823575/download Performed By: #### L [id number] #### [facility] [address] [place] [address] Vishnu Del Toro M.D. [id number] Provider Note - ED v2on 07-22 Provider [...] CURRENT OR FORMER SUBSTANCE USE: NO: Cigarette/Tobacco ALLERGIES/INTOLERANCES : Allergy Allergen: codeine Type: Drug Reaction: Rash [...] Past Medical History Description:denies Past Surgical History Description:Tonsillect olena & Adenoidectomy Description:Appendecto my Description:Cholecyste ctomy Description:Hysterecto my Social/Behavioral Description:denies smoking/drinking DIRECTOR OF STUDENT AFFAIRS: Is : no Is : no REVIEW [...] SIGNS: T PRBP SpO2O2(LPM) %FiO2 Method 03-Aug-2020 16:14:[id number] PHYSICAL EXAM CONSTITUTIONAL: Obese, toxic, awake, [...] a critically ill patient: no Electronic Signatures: Corozal, Lisa (RECRUITING TEAM LEAD-TELEPHONE ASSEMBLER) (Signed 03-Aug-2020 18:29) Authored: HPI, PMH, ROS, PE, Results/Vital Signs, MDM/ED Course, Clinical Impression, Attestation, Chart Review, Scores Last Updated: 03-Aug-2020 18:29 by Lisa Ac (RECRUITING TEAM LEAD-TELEPHONE ASSEMBLER) Normal [facility] ECG 12-LEADon 11-01-2019 Atrial Rate 68 BPM [facility] P Watson 45 degrees [facility] P-R Interval 172 ms [facility] Q-T Interval 434 ms [facility] QRS Duration 88 ms [facility] QTC Calculation (Bezet) 461 ms [facility] R Watson 20 degrees [facility] T Watson 31 degrees [facility] Ventricular Rate 68 BPM [facility] th Normal sinus rhythm Possible Inferior infarct , age undetermined Possible Anterior infarct , age undetermined Abnormal ECG ECG Cart Interpretation see physician note for interpretation. Confirmed by Nargis Rhodes ([id number]) on 11/01/2019 4:46:58 PM [facility] POC B-type natriuretic pepti de (BNP)on 11-01-2019 Interpretation and review of laboratory results Normal [facility] Natriuretic peptide B (Bld) [Mass/Vol] 16.7 pg/mL <100 [facility] POC Basic Metabolic Panelon 11-01-2019 Calcium.ionized (Bld) [Mass/Vol] 4.2 mg/dL Low 4.5 - 5.3 mg/dL [facility] Chloride [Moles/Vol] 100 mmol/L 98 - 10 8 mmol/L [facility] CO2 [Moles/Vol] 31 mmol/L 21 - 32 mmol/L [facility] Creatinine [Mass/Vol] 1.11 mg/dL High 0.40 - 1.[address] [facility] GFR/1.73 sq M.predicted MDRD (S/P/Bld) [Vol rate/Area] 55 mL/min/{1.73_m2} Low >=60 mL/min/1.73 m2 [facility] Glucose [Mass/Vol] 198 mg/dL High 65 - 99 mg/dL [facility] Interpretation and review of laboratory results Abnormal [facility] Potassium [Moles/Vol] 3.2 mmol/L Low 3.5 - 5.1 mmol/L [facility] Sodium [Moles/Vol] 142 mmol/L 135 - 145 mmol/L [facility] Urea nitrogen [Mass/Vol] 17 mg/dL 8 - 25 mg/dL [facility] POC CBC and Differentialon 0 11-01-2019 Erythrocyte distribution width (RBC) [Entitic vol] 14.2 % 11.6 - 14.8 % [facility] Hematocrit (Bld) [Volume fraction] 37.3 % 36 - 46 % [facility] Hemoglobin (Bld) [Mass/Vol] 12.5 g/dL 12 - 16 g/dL [facility] Interpretation and review of laboratory results Abnormal [facility] Lymphocytes (Bld) [#/Vol] 1.1 10*3/uL [facility] Lymphocytes/100 WBC (Bld) 31.7 % [facility] MCH (RBC) [Entitic mass] 29.6 pg 26 - 34 pg [facility] MCHC (RBC) [Mass/Vol] 33.5 g/dL 31 - 37 g/dL [facility] MCV (RBC) [Entitic vol] 88.4 fL 80 - 100 fL [facility] Mixed 5.6 % [facility] Mixed Abs 0.2 K/mcl [facility] Neutrophil Abs 2.1 [facility] Neutrophils/100 WBC (Bld) 62.7 % [facility] Platelet mean volume (Bld) [Entitic vol] 12.2 fL 9 - 15.5 fL [facility] Platelets (Bld) [#/Vol] 101 10*3/uL Low [facility] RBC (Bld) [#/Vol] 4.22 10*6/uL [facility] WBC (Bld) [#/Vol] 3.40 10*3/uL Low [facility] ealt Comment See Comment Critically abnormal (none) [facility] Comment on above: CRITICAL. CBCD reord ered and sent to . Abnormally low platelet count. Erythrocyte distribution width (RBC) [Entitic vol] 14.2 % 11.6 - 14.8 % [facility] Hematocrit (Bld) [Volume fraction] 37.7 % 36 - 46 % [facility] Hemoglobin (Bld) [Mass/Vol] 12.7 g/dL 12 - 16 g/dL [facility] Interpretation and review of laboratory results Abnormal [facility] Lymphocytes (Bld) [#/Vol] 1.0 10*3/uL [facility] Lymphocytes/100 WBC (Bld) 31.4 % [facility] MCH (RBC) [Entitic mass] 29.5 pg 26 - 34 pg [facility] MCHC (RBC) [Mass/Vol] 33.7 g/dL 31 - 37 g/dL [facility] MCV (RBC) [Entitic vol] 87.7 fL 80 - 100 fL [facility] Mixed 3.8 % [facility] Mixed Abs 0.1 K/mcl [facility] Neutrophil Abs 2.2 [facility] Neutrophils/100 WBC (Bld) 64.8 % [facility] Platelet mean volume (Bld) [Entitic vol] 12.2 fL 9 - 15.5 fL [facility] Platelets (Bld) [#/Vol] 96 10*3/uL Low [facility] RBC (Bld) [#/Vol] 4.30 10*6/uL [facility] WBC (Bld) [#/Vol] 3.30 10*3/uL Low [facility] ealt POC D-dimeron 11-01-2019 Fibrin D-dimer DDU (PPP) [Mass/Vol] <100 <350 ng/mL DDU [facility] Interpretation and review of laboratory results Normal [facility] A D-Dimer concentration of <350 [...] normal patients are less than 400 ng/ml. [facility] POC Influenza A/Bon 11-01-19 20 Interpretation and review of laboratory results Normal [facility] POC Influenza B Ag Not Detected Not Detected [facility] POC Rapid Influenza A Ag Not Detected Not Detected [facility] POC Troponin Ion 11-01-2019 Interpretation and review of laboratory results Normal [facility] Troponin I.cardiac [Mass/Vol] ng/mL <0.05 ng/mL [facility] XR Chest 1 Viewon 11-01-2019 No acute cardiopulmonary process. FÁTIMA/helen Workstation ID: [id number] [facility] Interface, Rad In Fu ji Speechq - 11/01/2019 5:20 PM EST EXAMINATION: [...] osseous abnormality. IMPRESSION: No acute cardiopulmonary process. [employer]Funder[employer] Workstation ID: [id number] [facility] EXAMINATION: XR CHES T PA/AP [...] pleural effusion. No obvious acute osseous abnormality. [facility] XR Shoulder Right 2+ Views [...] mild-moderate degenerative changes of the acromioclavicular joint. [facility] Interface, Rad In Fu ji Speechq - 11/01/2019 3:41 PM EST EXAMINATION: [...] 2. No fracture or dislocation is seen. [employer] Workstation ID: [id number] 1. There appears to be at least mild osteoarthritis of the glenohumeral joint and mild-moderate osteoarthritis of the acromioclavicular joint. 2. No fracture or dislocation is seen. [employer] Workstation ID: [id number] CT PULMONARY ARTERIESon 08-23 1. No acute PE is identified. Main pulmonary artery and thoracic aorta are normal caliber size. 2. Mild cardiomegaly. 3. Prior cholecystectomy and gastric bypass surgery. GJT/mjr Workstation ID: [id number] [facility] EXAMINATION: CT SCAN OF THE CHEST WITH CONTRAST FOR CT PULMONARY ANGIOGRAPHY, 09/20/2019 COMPARISON: CT scan of the chest, abdomen and upper pelvis with dissection technique, 08/04/2011. HISTORY: Dx: R06.09 (MCGOWAN (dyspnea on exertion)) Injury/Trauma or Illness?:Illness/Other How long have you had these symptoms (acute/chronic)?:Chron ic Dyspnea, chronic; Shortness of breath TECHNIQUE: 2.5 [...] lower cervical spine. No acute osseous abnormality. [facility] Interface, Rad In Fu ji Speechq - 09/20/2019 4:16 PM EST EXAMINATION: CT SCAN OF THE CHEST WITH CONTRAST FOR CT PULMONARY ANGIOGRAPHY, 09/20/2019 COMPARISON: CT scan of the chest, abdomen and upper pelvis with dissection technique, 08/04/2011. HISTORY: Dx: R06.09 (MCGOWAN (dyspnea on exertion)) Injury/Trauma or Illness?:Illness/Other How long have you had these symptoms (acute/chronic)?:Chron ic Dyspnea, chronic; Shortness of breath TECHNIQUE: 2.5 [...] gastric bypass surgery. GJT/mjr Workstation ID: [id number] [facility] ECHOCARDIOGRAM COMPLETEon Transthoracic Echocardiogram ____ Patient: EVIN Bennett [facility] Rec#: [id number] (Age): 1960(59y) Height: 165.1(cm)/64(in Study Date: 09/05/2019 Weight: 132.9(kg)/292(l Room#: BSA: [id number] Type: Loc: Sex: F ____ Reading: Vaishnavi Hoffmann M.D. Referring: Leticia Sylvester MD Ordering ProvidDr. Giorgi De Los Santos MD Social Media Marketing Specialist: Elyse Messer RN RD History: Hypertension. Sleep [...] at 09/05/2019 15:55:35 by: Vaishnavi Hoffmann M.D. [facility] Interface, Rad In Heartlab Xper Echopacs - 09/05/2019 5:57 PM EST Transthoracic Echocardiogram ____ Patient: EVIN Bennett [facility] Rec#: [id number] (Age): 1960(59y) Height: 165.1(cm)/64(in Study Date: 09/05/2019 Weight: 132.9(kg)/292(l Room#: BSA: [id number] Type: Loc: Sex: F ____ Reading: Vaishnavi Hoffmann M.D. Referring: Leticia Sylvester MD Ordering ProvidDr. Giorgi De Los Santos MD Social Media Marketing Specialist: Elyse Messer RN [facility] History: Hypertension. Sleep apnea. Summary: Patient identity [...] at 09/05/2019 15:55:35 by: Vaishnavi Hoffmann M.D. [facility] BUNon 08-22-2019 Interpretation and review of laboratory results Normal [facility] Urea nitrogen [Mass/Vol] 12 mg/dL 8 - 25 mg/dL [facility] Creatinine, serumon 08-22-20 19 Creatinine [Mass/Vol] 1.07 mg/dL 0.4 - 1.1 mg/dL [facility] GFR/1.73 sq M predicted among non-blacks MDRD (S/P/Bld) [Vol rate/Area] The eGFR should be used for monitoring renal function only and not for medication dosing. [facility] GFR/1.73 sq M.predicted CKD-EPI (S/P/Bld) [Vol rate/Area] 57 Low >=60 mL/min/1.73 m2 [facility] Interpretation and review of laboratory results Abnormal [facility] CBCon 07-28-2019 Erythrocyte distribution width (RBC) [Entitic vol] 13.6 % 11.6 - 14.8 % [facility] Hematocrit (Bld) [Volume fraction] 41.7 % 36 - 46 % [facility] Hemoglobin (Bld) [Mass/Vol] 13.9 g/dL 12 - 16 g/dL [facility] Interpretation and review of laboratory results Abnormal [facility] MCH (RBC) [Entitic mass] 29.7 pg 26 - 34 pg [facility] MCHC (RBC) [Mass/Vol] 33.3 g/dL 31 - 37 g/dL [facility] MCV (RBC) [Entitic vol] 89.1 fL 80 - 100 fL [facility] Nucleated RBC (Bld) [#/Vol] 0.00 10*3/uL [facility] Nucleated RBC/100 WBC (Bld) [Ratio] 0.0 % [facility] Platelet mean volume (Bld) [Entitic vol] 12.1 fL 9 - 15.5 fL [facility] Platelets (Bld) [#/Vol] 132 10*3/uL Low [facility] RBC (Bld) [#/Vol] 4.68 10*6/uL [facility]alth WBC (Bld) [#/Vol] 4.54 10*3/uL [facility] Creatinine, serumon 07-28-20 19 Creatinine [Mass/Vol] 0.78 mg/dL 0.4 - 1.1 mg/dL [facility] GFR/1.73 sq M predicted among non-blacks MDRD (S/P/Bld) [Vol rate/Area] The eGFR should be used for monitoring renal function only and not for medication dosing. [facility] GFR/1.73 sq M.predicted CKD-EPI (S/P/Bld) [Vol rate/Area] 84 >=60 mL/min/1.73 m2 [facility] Otheron 07-28-2019 Interpretation and review of laboratory results Normal [facility] Potassium Levelon 07-28-2019 Potassium [Moles/Vol] 3.9 mmol/L 3.5 - 5.1 mmol/L [facility] US ABDOMEN LIMITED STUDYon 1 09-27-2018 1. Cirrhotic appearance to the liver. Elevated liver echotexture suggests underlying fatty infiltration. No focal hepatic mass. 2. Status post cholecystectomy. No biliary ductal dilatation. 3. Inadequate visualization of the pancreas. Workstation ID: [id number] [facility] EXAMINATION: US ABDOMEN LIMITED STUDY [...] measures 10.1 cm in length. No hydronephrosis. [facility] Interface, Rad In Rafa ji Speechq - 07/28/2019 12:26 PM EST EXAMINATION: [...] visualization of the pancreas. Workstation ID: [id number] [facility] CARDIAC CATHETERIZATIONon Cardiac Catheterization Operative [...] chart. Patient was brought to the cardiac Latcher and prepped and draped in usual sterile fashion. Using a modified Seldinger technique access was established and a 6 Bol[place]ian sheath was placed in the right radial [...] by: Hari Acosta M.D 07/08/19 9:53 AM [facility] ECG 12-LEADon 06-24-2019 Atrial Rate [facility] P Watson [facility] P-R Interval [facility] Q-T Interval [facility] Q-T Interval (corrected) [facility] QRS Duration [facility] QTC Calculation (Bezet) [facility] R Watson [facility] T Watson [facility] Ventricular Rate [facility] th Otheron 06-24-2019 EXAMINATION: 2-VIEW XR CHEST AP/PA AND LAT, 06/23/2019 COMPARISON: Chest, 04/26/2018. HISTORY: Dx: R07.9 (Chest pain, unspecified type) Injury/Trauma or Illness?:Illness/Other How long have you had these symptoms (acute/chronic)?:Acute mcgowan [facility] 1. No acute cardiopulmonary disease. 2. Normal heart size. 3. No acute osseous abnormality. Orthopedic fixation of the lower visualized cervical spine redemonstrated. [employer] Workstation ID: [id number] [facility] Interface, Rad In Fu ji Speechq - 06/24/2019 12:41 AM EDT EXAMINATION: 2-VIEW XR CHEST AP/PA AND LAT, 06/23/2019 COMPARISON: Chest, 04/26/2018. HISTORY: Dx: R07.9 (Chest pain, unspecified type) Injury/Trauma or Illness?:Illness/Other How long have you had these symptoms (acute/chronic)?:Acute mcgowan IMPRESSION: 1. No acute cardiopulmonary disease. 2. Normal heart size. 3. No acute osseous abnormality. Orthopedic fixation of the lower visualized cervical spine redemonstrated. [employer] Workstation ID: [id number] [facility] Comprehensive metabolic pane josé 06-23-2019 Albumin [Mass/Vol] 3.9 g/dL 3.2 - 5.2 g/dL [facility] ALP [Catalytic activity/Vol] 98 U/L 40 - 150 U/L [facility] ALT [Catalytic activity/Vol] 50 U/L 14 - 65 U/L [facility] Anion gap [Moles/Vol] 12 mmol/L 10 - 2 0 mmol/L [facility] AST [Catalytic activity/Vol] 31 U/L 0 - 45 U/L [facility] Bilirubin [Mass/Vol] 0.5 mg/dL 0 - 1.3 mg/dL [facility] Calcium [Mass/Vol] 8.2 mg/dL Low 8.4 - 10. 2 mg/dL [facility] Chloride [Moles/Vol] 106 mmol/L 98 - 10 8 mmol/L [facility] Creatinine [Mass/Vol] 1.04 mg/dL 0.4 - 1.1 mg/dL [facility] GFR/1.73 sq M predicted among non-blacks MDRD (S/P/Bld) [Vol rate/Area] The eGFR should be used for monitoring renal function only and not for medication dosing. [facility] GFR/1.73 sq M.predicted CKD-EPI (S/P/Bld) [Vol rate/Area] 59 Low >=60 mL/min/1.73 m2 [facility] Glucose [Mass/Vol] 89 mg/dL 65 - 99 mg/dL [facility] HCO3 [Moles/Vol] 28 mmol/L 21 - 32 mmol/L [facility] Interpretation and review of laboratory results Abnormal [facility] Potassium [Moles/Vol] 4.0 mmol/L 3.5 - 5.1 mmol/L [facility] Protein [Mass/Vol] 7.3 g/dL 6 - 8 g/dL [facility] Sodium [Moles/Vol] 142 mmol/L 135 - 145 mmol/L [facility] Urea nitrogen [Mass/Vol] 26 mg/dL High 8 - 25 mg/dL [facility] Urea nitrogen/Creatinine [Mass ratio] 25.0 mg/mg High [facility] NT PRO BNPon 06-23-2019 Natriuretic peptide.B prohormone N-Terminal [Mass/Vol] 35 pg/mL 0 - 300 pg/mL [facility] Comment on above: Please note referenc e range change as of 09/08/18. [employer] Study Cut-offs Rule In: < /= 50 Years >450 pg/mL 51 Years - 75 Years >900 pg/mL 76 Years - 99 Years >1800 pg/mL Rule Out: All patients <300 pg/mL [facility] Otheron 06-23-2019 Interpretation and review of laboratory results Normal [facility] TSH with Reflex Free T4on TSH Qn 1.85 m[IU]/L [facility] CT Abdomen Pelvis Without Co [...] bowel obstruction. The appendix is not visualized. [employer] Workstation ID: [id number] [facility] EXAMINATION: CT ABDOMEN PELVIS WITHOUT CONTRAST, 05/02/2019 COMPARISON: CT scan of the abdomen and pelvis without contrast, 04/26/2019. HISTORY: Dx: R10.9 (Stomach ache), Stomach ache, Injury/Trauma or Illness?:Illness/Other How long have you had these symptoms (acute/chronic)?:Acute TECHNIQUE: 3 mm axial images performed through [...] is not visualized. No acute osseous abnormality. [facility], Rad In Fu ji Speechq - 05/02/2019 4:08 PM EDT EXAMINATION: CT ABDOMEN PELVIS WITHOUT CONTRAST, 05/02/2019 COMPARISON: CT scan of the abdomen and pelvis without contrast, 04/26/2019. HISTORY: Dx: R10.9 (Stomach ache), Stomach ache, Injury/Trauma or Illness?:Illness/Other How long have you had these symptoms (acute/chronic)?:Acute TECHNIQUE: 3 mm axial images performed through [...] bowel obstruction. The appendix is not visualized. [employer] Workstation ID: [id number] [facility] CPKon 07-19-2018 CPK 57 U/L Normal 40-170 [facility] Comment on above: Performed By: #### N TPROBNP, CHEM8, CBCDIF, PT, PTT, EDCTNI ####Unless otherwise noted, all testing performed by [address] [phone]: [id number] Director: Ramakrishna Browne M.D. CPK, Totalon 07-19-2018 CK enzyme act/vol 57 U/L Invalid Interpretation Code 40 - 170 U/L [facility] Myoglobinon 07-19-2018 Myoglobin mass conc 40 ng/mL Normal 13-71 [facility] Comment on above: Performed By: #### N TPROBNP, CHEM8, CBCDIF, PT, PTT, EDCTNI ####Unless otherwise noted, all testing performed by [address] [id number]: [id number] Director: Ramakrishna Browne M.D. Myoglobin, Bloodon 8 Myoglobin mass conc 40 ng/mL Invalid Interpretation Code 13 - 71 ng/mL [facility] 25-Hydroxy D Totalon 018 25-Hydroxy D Total 32 ng/mL Normal 30-100 [facility] Comment on above: Result Comment: Hilary diaz note that Fluorescein which is used [...] ####Unless otherwise noted, all testing performed by [address] [phone]: [id number] Director: Андрей Maxwell 06-25-2018 ALT enzyme act/vol 36 U/L Invalid Interpretation Code 14 - 65 U/L [facility] Comment on above: This test result amanda ht be falsely depressed or falsely elevated on samples drawn from patients taking Sulfasalazine and Sulfapyridine. Venipuncture should occur prior to taking either of these drugs. ALT (SGPT)on 06-25-2018 ALT enzyme act/vol 36 U/L Normal 14-65 [facility] Comment on above: Result Comment: This test result might be falsely depressed or falsely elevated onsamples drawn from patients taking Sulfasalazine and Sulfapyridine.Venipuncture should occur prior to taking either of these drugs. Performed By: #### N TPROBNP, CHEM8, CBCDIF, PT, PTT, EDCTNI ####Unless otherwise noted, all testing performed by [address] [id number]: [id number] Director: Ramakrishna Browne M.D. Christa 06-25-2018 AST enzyme act/vol 25 U/L Invalid Interpretation Code 0 - 45 U/L [facility] Comment on above: This test result amanda ht be falsely depressed or falsely elevated on samples drawn from patients taking Sulfasalazine and Sulfapyridine. Venipuncture should occur prior to taking either of these drugs. AST (SGOT)on 06-25-2018 AST enzyme act/vol 25 U/L Normal 0-45 [facility] Comment on above: Result Comment: This test result might be falsely depressed or falsely elevated onsamples drawn from patients taking Sulfasalazine and Sulfapyridine.Venipuncture should occur prior to taking either of these drugs. Performed By: #### N TPROBNP, CHEM8, CBCDIF, PT, PTT, EDCTNI ####Unless otherwise noted, all testing performed by [place] [address] [address] [place], [place] [phone]: [id number] Director: Ramakrishna Browne M.D. Basic Metabolic Panelon Calcium mass conc 8.3 mg/dL Low 8.4 - 10.2 mg/dL [facility] Chloride molar conc 108 mmol/L Invalid Interpretation Code 98 - 108 mmol/L [facility] CO2 molar conc 25 mmol/L Invalid Interpretation Code 21 - 32 mmol/L [facility] Creatinine mass conc 0.83 mg/dL Invalid Interpretation Code 0.4 - 1.1 mg/dL [facility] GFR/1.73 sq M predicted among blacks MDRD vol rate/area (S/P/Bld) mL/min/{1.73_m2} Invalid Interpretation Code ml/min/1.73s q.m [facility] Comment on above: GFR Calc GFR/1.73 sq M predicted among non-blacks MDRD vol rate/area (S/P/Bld) mL/min/{1.73_m2} Invalid Interpretation Code ml/min/1.73s q.m [facility] Comment on above: Non- GFR Calc eGFR [...] 113 mg/dL High 70 - 99 mg/dL [facility] Comment on above: This test result amanda ht be falsely depressed or falsely elevated on samples drawn from patients taking Sulfasalazine and Sulfapyridine. Venipuncture should occur prior to taking either of these drugs. Potassium molar conc 4.2 mmol/L Invalid Interpretation Code 3.5 - 5.1 mmol/L [facility] Sodium molar conc 141 mmol/L Invalid Interpretation Code 135 - 145 mmol/L [facility] Urea nitrogen mass conc 23 mg/dL Invalid Interpretation Code 8 - 25 mg/dL [facility] Calcium mass conc 8.3 mg/dL Low 8.4-10.2 [facility] Comment on above: Performed By: #### N TPROBNP, CHEM8, CBCDIF, PT, PTT, EDCTNI ####Unless otherwise noted, all testing performed by [address] [phone]: [id number] Director: Ramakrishna Browne M.D. Chloride molar conc 108 mmol/L Normal 98-108 [facility] Comment on above: Performed By: #### N TPROBNP, CHEM8, CBCDIF, PT, PTT, EDCTNI ####Unless otherwise noted, all testing performed by [address] [phone]: [id number] Director: Ramakrishna Browne M.D. CO2 molar conc 25 mmol/L Normal 21-32 [facility] Comment on above: Performed By: #### N TPROBNP, CHEM8, CBCDIF, PT, PTT, EDCTNI ####Unless otherwise noted, all testing performed by [address] [phone]: [id number] Director: Ramakrishna Browne M.D. Creatinine mass conc 0.83 mg/dL Normal 0.40-1.10 [facility] Comment on above: Performed By: #### N TPROBNP, CHEM8, CBCDIF, PT, PTT, EDCTNI ####Unless otherwise noted, all testing performed by [address] [phone]: [id number] Director: Ramakrishna Browne M.D. GFR/1.73 sq M predicted among blacks MDRD vol rate/area (S/P/Bld) mL/min/{1.73_m2} Normal [facility] Comment on above: Result Comment: Afri can Somali GFR Calc Performed By: #### N TPROBNP, CHEM8, CBCDIF, PT, PTT, EDCTNI ####Unless otherwise noted, all testing performed by [address] [phone]: [id number] Director: Ramakrishna Browne M.D. GFR/1.73 sq M predicted among non-blacks MDRD vol rate/area (S/P/Bld) mL/min/{1.73_m2} Normal [facility] Comment on above: Result Comment: Non- GFR [...] ####Unless otherwise noted, all testing performed by [address] [phone]: [id number] Director: Ramakrishna Browne M.D. Glucose mass conc 113 mg/dL High 70-99 [facility] Comment on above: Result Comment: This test result might be falsely depressed or falsely elevated onsamples drawn from patients taking Sulfasalazine and Sulfapyridine.Venipuncture should occur prior to taking either of these drugs. Performed By: #### N TPROBNP, CHEM8, CBCDIF, PT, PTT, EDCTNI ####Unless otherwise noted, all testing performed by [address] [phone]: [id number] Director: Ramakrishna Browne M.D. Potassium molar conc 4.2 mmol/L Normal 3.5-5.1 [facility] Comment on above: Performed By: #### N TPROBNP, CHEM8, CBCDIF, PT, PTT, EDCTNI ####Unless otherwise noted, all testing performed by [place] [phone]: [id number] Director: Ramakrishna Browne M.D. Sodium molar conc 141 mmol/L Normal 135-145 [facility] Comment on above: Performed By: #### N TPROBNP, CHEM8, CBCDIF, PT, PTT, EDCTNI ####Unless otherwise noted, all testing performed by [address] [phone]: [id number] Director: Ramakrishna Browne M.D. Urea nitrogen mass conc 23 mg/dL Normal 8-25 [facility] Comment on above: Performed By: #### N TPROBNP, CHEM8, CBCDIF, PT, PTT, EDCTNI ####Unless otherwise noted, all testing performed by [address] [phone]: [id number] Director: Ramakrishna Browne M.D. CBCon 06-25-2018 Erythrocyte distribution width Auto Ratio (RBC) 15.0 % High 10 - 14.4 % [facility] Hematocrit Auto Volume Fraction (Bld) 38.4 % Invalid Interpretation Code 34.4 - 44.8 % [facility] Hemoglobin mass conc (Bld) 13.2 g/dL Invalid Interpretation Code 11.6 - 15.4 g/dL [facility] Interpretation and review of laboratory results Abnormal Invalid Interpretation Code [facility] MCH Auto Entitic mass (RBC) 29.2 pg Invalid Interpretation Code 27.9 - 33.9 pg [facility] MCHC Auto mass conc (RBC) 34.2 g/dL Invalid Interpretation Code 33.1 - 35.1 g/dL [facility] MCV Auto Entitic volume (RBC) 85.3 fL Invalid Interpretation Code [facility] Platelet mean volume Auto Entitic volume (Bld) 9.5 fL Invalid Interpretation Code [facility] Platelets Auto #/vol (Bld) 116 10*3/uL Low [facility] RBC Auto #/vol (Bld) 4.50 10*6/uL Invalid Interpretation Code [facility] WBC Auto #/vol (Bld) 3.4 10*3/uL Invalid Interpretation Code [facility] CBC w/o Diffon 06-25-2018 Erythrocyte distribution width Auto Ratio (RBC) 15.0 % High 10.0-14.4 [facility] Comment on above: Performed By: #### N TPROBNP, CHEM8, CBCDIF, PT, PTT, EDCTNI ####Unless otherwise noted, all testing performed by [address] [phone]: [id number] Director: Ramakrishna Browne M.D. Hematocrit Auto Volume Fraction (Bld) 38.4 % Normal 34.4-44.8 [facility] Comment on above: Performed By: #### N TPROBNP, CHEM8, CBCDIF, PT, PTT, EDCTNI ####Unless otherwise noted, all testing performed by [address] [phone]: [id number] Director: Ramakrishna Browne M.D. Hemoglobin mass conc (Bld) 13.2 g/dL Normal 11.6-15.4 [facility] Comment on above: Performed By: #### N TPROBNP, CHEM8, CBCDIF, PT, PTT, EDCTNI ####Unless otherwise noted, all testing performed by [address] [phone]: [id number] Director: Ramakrishna Browne M.D. MCH Auto Entitic mass (RBC) 29.2 pg Normal 27.9-33.9 [facility] Comment on above: Performed By: #### N TPROBNP, CHEM8, CBCDIF, PT, PTT, EDCTNI ####Unless otherwise noted, all testing performed by [address] [phone]: [id number] Director: Ramakrishna Browne M.D. MCHC Auto mass conc (RBC) 34.2 g/dL Normal 33.1-35.1 [facility] Comment on above: Performed By: #### N TPROBNP, CHEM8, CBCDIF, PT, PTT, EDCTNI ####Unless otherwise noted, all testing performed by [address] [phone]: [id number] Director: Ramakrishna Browne M.D. MCV Auto Entitic volume (RBC) 85.3 fL Normal 82.6-98.9 [facility] Comment on above: Performed By: #### N TPROBNP, CHEM8, CBCDIF, PT, PTT, EDCTNI ####Unless otherwise noted, all testing performed by [address] [phone]: [id number] Director: Ramakrishna Browne M.D. Platelet mean volume Auto Entitic volume (Bld) 9.5 fL Normal 7.0-10.6 [facility] Comment on above: Performed By: #### N TPROBNP, CHEM8, CBCDIF, PT, PTT, EDCTNI ####Unless otherwise noted, all testing performed by [address] [phone]: [id number] Director: Ramakrishna Browne M.D. Platelets Auto #/vol (Bld) 116 K/mcL Low 162-402 [facility] Comment on above: Performed By: #### N TPROBNP, CHEM8, CBCDIF, PT, PTT, EDCTNI ####Unless otherwise noted, all testing performed by [address] [phone]: [id number] Director: Ramakrishna Browne M.D. RBC Auto #/vol (Bld) 4.50 M/mcL Normal 3.7-5.0 [facility] Comment on above: Performed By: #### N TPROBNP, CHEM8, CBCDIF, PT, PTT, EDCTNI ####Unless otherwise noted, all testing performed by [address] [phone]: [id number] Director: Ramakrishna Browne M.D. WBC Auto #/vol (Bld) 3.4 K/mcL Normal 3.4-10.6 [facility] Comment on above: Performed By: #### N TPROBNP, CHEM8, CBCDIF, PT, PTT, EDCTNI ####Unless otherwise noted, all testing performed by [address] [phone]: [id number] Director: Ramakrishna Browne M.D. Hemoglobin A1Con 06-25-2018 Hemoglobin A1c/Hemoglobin.total mass fraction (Bld) 5.0 % Normal 4.1-6.5 [facility] Comment on above: Performed By: #### N TPROBNP, CHEM8, CBCDIF, PT, PTT, EDCTNI ####Unless otherwise noted, all testing performed by [address] [phone]: [id number] Director: Ramakrishna Browne M.D. Hemoglobin A1con 06-25-2018 Hemoglobin A1c/Hemoglobin.total mass fraction (Bld) 5.0 % Invalid Interpretation Code 4.1 - 6.5 % [facility] Lipid Panelon 06-25-2018 Cholesterol in HDL mass conc 56 mg/dL Invalid Interpretation Code 40 - 59 mg/dL [facility] Cholesterol in LDL mass conc 70 mg/dL Invalid Interpretation Code 10 - 150 mg/dL [facility] Cholesterol in VLDL mass conc 14 mg/dL Invalid Interpretation Code 5 - 40 mg/dL [facility] Cholesterol mass conc 140 mg/dL Invalid Interpretation Code 100 - 199 mg/dL [facility] Cholesterol.total/Carrie sterol in HDL mass ratio 2.5 {ratio} Low [facility] Comment on above: Female Coronary Hear t Disease Risk Factor (CHDRF): Average risk= 4.4 1/2 Average risk= 3.3 2 times Average risk= 7.1 Triglyceride mass conc 70 mg/dL Invalid Interpretation Code 25 - 120 mg/dL [facility] Cholesterol in HDL mass conc 56 mg/dL Normal 40-59 [facility] Comment on above: Performed By: #### N TPROBNP, CHEM8, CBCDIF, PT, PTT, EDCTNI ####Unless otherwise noted, all testing performed by [place] [phone]: [id number] Director: Ramakrishna Browne M.D. Cholesterol in LDL mass conc 70 mg/dL Normal 10-150 [facility] Comment on above: Performed By: #### N TPROBNP, CHEM8, CBCDIF, PT, PTT, EDCTNI ####Unless otherwise noted, all testing performed by [phone]: [id number] Director: Ramakrishna Browne M.D. Cholesterol in VLDL mass conc 14 mg/dL Normal 5-40 [facility] Comment on above: Performed By: #### N TPROBNP, CHEM8, CBCDIF, PT, PTT, EDCTNI ####Unless otherwise noted, all testing performed by [place] [phone]: [id number] Director: Ramakrishna Browne M.D. Cholesterol mass conc 140 mg/dL Normal 100-199 [facility] Comment on above: Performed By: #### N TPROBNP, CHEM8, CBCDIF, PT, PTT, EDCTNI ####Unless otherwise noted, all testing performed by [address] [phone]: [id number] Director: Ramakrishna Browne M.D. Cholesterol.total/Carrie sterol in HDL mass ratio 2.5 {ratio} Low 3.2-5.0 [facility] Comment on above: Result Comment: Kira soler Coronary Heart Disease Risk Factor (CHDRF):Average risk= 4.41/2 Average risk= 3.32 times Average risk= 7.1 Performed By: #### N TPROBNP, CHEM8, CBCDIF, PT, PTT, EDCTNI ####Unless otherwise noted, all testing performed by [address] [phone]: [id number] Director: Ramakrishna Browne M.D. Triglyceride mass conc 70 mg/dL Normal 25-120 [facility] Comment on above: Performed By: #### N TPROBNP, CHEM8, CBCDIF, PT, PTT, EDCTNI ####Unless otherwise noted, all testing performed by [address] [phone]: [id number] Director: Ramakrishna Browne M.D. Otheron 06-25-2018 Interpretation and review of laboratory results Abnormal [facility] Thyrotropin Qn 1.58 m[IU]/L Invalid Interpretation Code [facility] Comment on above: Samples from patient s routinely receiving high dose biotin therapy (100-300 mg/day) may show falsely decreased results. Please correlate clinically. Thyrotropin Qn 1.58 uIU/mL Normal 0.320-5.000 [facility] Comment on above: Result Comment: Samp les from patients routinely receiving high dose biotin therapy(100-300 mg/day) may show falsely decreased results. Please correlateclinically. Performed By: #### N TPROBNP, CHEM8, CBCDIF, PT, PTT, EDCTNI ####Unless otherwise noted, all testing performed by [address] [phone]: [id number] Director: Ramakrishna Browne M.D. Vitamin B12 and Folateson Cobalamin (Vitamin B12) mass conc 278 pg/mL Invalid Interpretation Code 193 - 986 pg/mL [facility] Folate >20.0 High 3.1 - 17.5 ng/mL [facility] Interpretation and review of laboratory results Abnormal Invalid Interpretation Code [facility] Cobalamin (Vitamin B12) mass conc 278 pg/mL Normal 193-986 [facility] Comment on above: Performed By: #### N TPROBNP, CHEM8, CBCDIF, PT, PTT, EDCTNI ####Unless otherwise noted, all testing performed by [address] [phone]: [id number] Director: Ramakrishna Browne M.D. Folate > 20.0 High 3.1-17.5 [facility] Comment on above: Performed By: #### N TPROBNP, CHEM8, CBCDIF, PT, PTT, EDCTNI ####Unless otherwise noted, all testing performed by [address] [phone]: [id number] Director: Ramakrishna Browne M.D. Vitamin D, Total, 25-OHon Vitamin D, 25-Hydroxy, Total 32 ng/mL Invalid Interpretation Code 30 - 100 ng/mL [facility] Comment on above: Please note that Flu [...] Toxicity > 100 ng/mL Basic Metabolic Panelon 08-0 Calcium mass conc 8.8 mg/dL Normal 8.4-10.2 [facility] Comment on above: Performed By: #### N TPROBNP, CHEM8, CBCDIF, PT, PTT, EDCTNI ####Unless otherwise noted, all testing performed by [address] [phone]: [id number] Director: Ramakrishna Browne M.D. Chloride molar conc 106 mmol/L Normal 98-108 [facility] Comment on above: Performed By: #### N TPROBNP, CHEM8, CBCDIF, PT, PTT, EDCTNI ####Unless otherwise noted, all testing performed by [address] [phone]: [id number] Director: Ramakrishna Browne M.D. CO2 molar conc 24 mmol/L Normal 21-32 [facility] Comment on above: Performed By: #### N TPROBNP, CHEM8, CBCDIF, PT, PTT, EDCTNI ####Unless otherwise noted, all testing performed by [address] [phone]: [id number] Director: Ramakrishna Browne M.D. Creatinine mass conc 0.82 mg/dL Normal 0.40-1.10 [facility] Comment on above: Performed By: #### N TPROBNP, CHEM8, CBCDIF, PT, PTT, EDCTNI ####Unless otherwise noted, all testing performed by [address] [phone]: [id number] Director: Ramakrishna Browne M.D. GFR/1.73 sq M predicted among blacks MDRD vol rate/area (S/P/Bld) mL/min/{1.73_m2} Normal [facility] Comment on above: Result Comment: Afri can Somali GFR Calc Performed By: #### N TPROBNP, CHEM8, CBCDIF, PT, PTT, EDCTNI ####Unless otherwise noted, all testing performed by [address] [phone]: [id number] Director: Ramakrishna Browne M.D. GFR/1.73 sq M predicted among non-blacks MDRD vol rate/area (S/P/Bld) mL/min/{1.73_m2} Normal [facility] Comment on above: Result Comment: Non- GFR [...] ####Unless otherwise noted, all testing performed by [address] [phone]: [id number] Director: Ramakrishna Browne M.D. Glucose mass conc 88 mg/dL Normal 70-99 [facility] Comment on above: Result Comment: This test result might be falsely depressed or falsely elevated onsamples drawn from patients taking Sulfasalazine and Sulfapyridine.Venipuncture should occur prior to taking either of these drugs. Performed By: #### N TPROBNP, CHEM8, CBCDIF, PT, PTT, EDCTNI ####Unless otherwise noted, all testing performed by [address], [place] [phone]: [id number] Director: Ramakrishna Browne M.D. Potassium molar conc 3.2 mmol/L Low 3.5-5.1 [facility] Comment on above: Performed By: #### N TPROBNP, CHEM8, CBCDIF, PT, PTT, EDCTNI ####Unless otherwise noted, all testing performed by [address] [phone]: [id number] Director: Ramakrishna Browne M.D. Sodium molar conc 140 mmol/L Normal 135-145 [facility] Comment on above: Performed By: #### N TPROBNP, CHEM8, CBCDIF, PT, PTT, EDCTNI ####Unless otherwise noted, all testing performed by [address] [phone]: [id number] Director: Ramakrishna Browne M.D. Urea nitrogen mass conc 23 mg/dL Normal 8-25 [facility] Comment on above: Performed By: #### N TPROBNP, CHEM8, CBCDIF, PT, PTT, EDCTNI ####Unless otherwise noted, all testing performed by [address] [phone]: [id number] Director: Ramakrishna Browne M.D. CBC with Diffon 04-26-2018 Basophils Auto #/vol (Bld) 0.0 K/mcL Normal 0-0.2 [facility] Comment on above: Performed By: #### N TPROBNP, CHEM8, CBCDIF, PT, PTT, EDCTNI ####Unless otherwise noted, all testing performed by [facility] [address] [phone]: [id number] Director: Ramakrishna Browne M.D. Basophils/100 WBC Auto (Bld) 0.4 % Normal [facility] Comment on above: Performed By: #### N TPROBNP, CHEM8, CBCDIF, PT, PTT, EDCTNI ####Unless otherwise noted, all testing performed by [address] [phone]: [id number] Director: Ramakrishna Browne M.D. Eosinophils Auto #/vol (Bld) 0.2 K/mcL Normal 0-0.5 [facility] Comment on above: Performed By: #### N TPROBNP, CHEM8, CBCDIF, PT, PTT, EDCTNI ####Unless otherwise noted, all testing performed by [address] [phone]: [id number] Director: Ramakrishna Browne M.D. Eosinophils/100 WBC Auto (Bld) 3.8 % Normal [facility] Comment on above: Performed By: #### N TPROBNP, CHEM8, CBCDIF, PT, PTT, EDCTNI ####Unless otherwise noted, all testing performed by [address] [phone]: [id number] Director: Ramakrishna Browne M.D. Erythrocyte distribution width Auto Ratio (RBC) 14.4 % Normal 10.0-14.4 [facility] Comment on above: Performed By: #### N TPROBNP, CHEM8, CBCDIF, PT, PTT, EDCTNI ####Unless otherwise noted, all testing performed by [address], [place] [phone]: [id number] Director: Ramakrishna Browne M.D. Hematocrit Auto Volume Fraction (Bld) 37.3 % Normal 34.4-44.8 [facility] Comment on above: Performed By: #### N TPROBNP, CHEM8, CBCDIF, PT, PTT, EDCTNI ####Unless otherwise noted, all testing performed by [address] [phone]: [id number] Director: Ramakrishna Browne M.D. Hemoglobin mass conc (Bld) 12.7 g/dL Normal 11.6-15.4 [facility] Comment on above: Performed By: #### N TPROBNP, CHEM8, CBCDIF, PT, PTT, EDCTNI ####Unless otherwise noted, all testing performed by [address] [phone]: [id number] Director: Ramakrishna Browne M.D. Lymphocytes Auto #/vol (Bld) 1.2 K/mcL Normal 1.0-3.7 [facility] Comment on above: Performed By: #### N TPROBNP, CHEM8, CBCDIF, PT, PTT, EDCTNI ####Unless otherwise noted, all testing performed by [address] [phone]: [id number] Director: Ramakrishna Browne M.D. Lymphocytes/100 WBC Auto (Bld) 25.0 % Normal [facility] Comment on above: Performed By: #### N TPROBNP, CHEM8, CBCDIF, PT, PTT, EDCTNI ####Unless otherwise noted, all testing performed by [address] [phone]: [id number] Director: Ramakrishna Browne M.D. MCH Auto Entitic mass (RBC) 29.4 pg Normal 27.9-33.9 [facility] Comment on above: Performed By: #### N TPROBNP, CHEM8, CBCDIF, PT, PTT, EDCTNI ####Unless otherwise noted, all testing performed by [address] [phone]: [id number] Director: Ramakrishna Browne M.D. MCHC Auto mass conc (RBC) 34.0 g/dL Normal 33.1-35.1 [facility] Comment on above: Performed By: #### N TPROBNP, CHEM8, CBCDIF, PT, PTT, EDCTNI ####Unless otherwise noted, all testing performed by [address] [phone]: [id number] Director: Ramakrishna Browne M.D. MCV Auto Entitic volume (RBC) 86.5 fL Normal 82.6-98.9 [facility] Comment on above: Performed By: #### N TPROBNP, CHEM8, CBCDIF, PT, PTT, EDCTNI ####Unless otherwise noted, all testing performed by [address] [phone]: [id number] Director: Ramakrishna Browne M.D. Monocytes Auto #/vol (Bld) 0.3 K/mcL Normal 0.1-0.6 [facility] Comment on above: Performed By: #### N TPROBNP, CHEM8, CBCDIF, PT, PTT, EDCTNI ####Unless otherwise noted, all testing performed by [address] [phone]: [id number] Director: Ramakrishna Browne M.D. Monocytes/100 WBC Auto (Bld) 6.8 % Normal [facility] Comment on above: Performed By: #### N TPROBNP, CHEM8, CBCDIF, PT, PTT, EDCTNI ####Unless otherwise noted, all testing performed by [address] [phone]: [id number] Director: Ramakrishna Browne M.D. Neutrophils Auto #/vol (Bld) 3.2 K/mcL Normal 1.2-6.9 [facility] Comment on above: Performed By: #### N TPROBNP, CHEM8, CBCDIF, PT, PTT, EDCTNI ####Unless otherwise noted, all testing performed by [address] [phone]: [id number] Director: Ramakrishna Browne M.D. Platelet mean volume Auto Entitic volume (Bld) 9.6 fL Normal 7.0-10.6 [facility] Comment on above: Performed By: #### N TPROBNP, CHEM8, CBCDIF, PT, PTT, EDCTNI ####Unless otherwise noted, all testing performed by [address] [phone]: [id number] Director: Ramakrishna Browne M.D. Platelets Auto #/vol (Bld) 211 K/mcL Normal 162-402 [facility] Comment on above: Performed By: #### N TPROBNP, CHEM8, CBCDIF, PT, PTT, EDCTNI ####Unless otherwise noted, all testing performed by [address] [phone]: [id number] Director: Ramakrishna Browne M.D. RBC Auto #/vol (Bld) 4.31 M/mcL Normal 3.7-5.0 [facility] Comment on above: Performed By: #### N TPROBNP, CHEM8, CBCDIF, PT, PTT, EDCTNI ####Unless otherwise noted, all testing performed by [address] [address] [id number]: [id number] Director: Ramakrishna Browne M.D. Segmented Neut % 64.0 % Normal [facility] Comment on above: Performed By: #### N TPROBNP, CHEM8, CBCDIF, PT, PTT, EDCTNI ####Unless otherwise noted, all testing performed by [address] [id number]: [id number] Director: Ramakrishna Browne M.D. WBC Auto #/vol (Bld) 5.0 K/mcL Normal 3.4-10.6 [facility] Comment on above: Performed By: #### N TPROBNP, CHEM8, CBCDIF, PT, PTT, EDCTNI ####Unless otherwise noted, all testing performed by [address] [id number]: [id number] Director: Ramakrishna Browne M.D. CHEST PA AND LATERALon 04-26 CHEST PA AND LATERAL Final ReportAccession No: [id number] Performed: Apr 26 2018 7:36PMExamination: CHEST [...] IKER BARBER M.D.Trans: n/a : cc: Normal [facility] CT ABDO,PELVIS W/O CONTRASTo n 04-26-2018 CT ABDO,PELVIS W/O CONTRAST Final ReportAccession No: [id number] Performed: Apr 26 2018 9:03PMExamination: CT [...] to patient size and/or use ofiterative reconstruction technique.FINDINGS:The imaged heart is normal in size with [...] surgery. There is no bowel obstruction. The appendixappearsabsent. There is no pneumoperitoneum or ascites. There is [...] Previous ventral abdominal wall surgery/surgeries with no recurrentherniaseen.In terpreting Physician: IKER BARBER M.D.Trans: n/a : cc: Normal [facility] Culture, Urineon 04-26-2018 Culture, Urine Test Name: Culture, Urine Culture Status: Final Culture Report: No significant growth. Micro Source: Urine Normal [facility] Comment on above: Performed By: #### U RCUL ####Unless otherwise noted, all testing performed by [address] [id number]: [id number] Director: Ramakrishna Browne M.D. ED Cardiac Troponin-Ion Troponin I.cardiac mass conc ng/mL Normal < 45 [facility] Comment on above: Result Comment: Elev ation [...] ####Unless otherwise noted, all testing performed by [address] [id number]: [id number] Director: Ramakrishna Browne M.D. NT-Pro BNP, Serumon 04-26-20 18 Natriuretic peptide B mass conc (Bld) 256 pg/mL High 0-125 [facility] Comment on above: Performed By: #### N TPROBNP, CHEM8, CBCDIF, PT, PTT, EDCTNI ####Unless otherwise noted, all testing performed by [address] [id number]: [id number] Director: Ramakrishna Browne M.D. Partial Thromboplastin Timeo n 04-26-2018 aPTT Coag time (Bld) 27 s Normal 23.0-34.0 [facility] Comment on above: Result Comment: Iris hollins therapeutic range for PTT is 68-104 sec. Performed By: #### N TPROBNP, CHEM8, CBCDIF, PT, PTT, EDCTNI ####Unless otherwise noted, all testing performed by [address] [id number]: [id number] Director: Ramakrishna Browne M.D. Protimeon 04-26-2018 INR Coag RelTime (PPP) 1.05 {INR} Normal [facility] Comment on above: Result Comment: The [employer] [employer] recommended therapeutic rangefor Warfarin (Coumadin) therapy goals:PROPHYLAXIS/TREATMENT of:INRVenous Thrombosis, Pulmonary Embolism2.0-3.0Prevention of VTE (Orthopedic Surgery)2.0-3.0Atrial Fibrillation2.0-3.0Myocardial Infarction2.0-3.0Mechanical Prosthetic Heart Valves (Aortic position)2.0-3.0Mechanical Prosthetic Heart Valves (Mitral Position)2.5-3.5American College of Chest Physicians evidence-based clinical practiceguidelines. CHEST. 2012 (9th ed) Performed By: #### N TPROBNP, CHEM8, CBCDIF, PT, PTT, EDCTNI ####Unless otherwise noted, all testing performed by [address] [id number]: [id number] Director: Ramakrishna Browne M.D. Prothrombin time (PT) Coag time (PPP) 13.4 s Normal 11.8-14.3 [facility] Comment on above: Performed By: #### N TPROBNP, CHEM8, CBCDIF, PT, PTT, EDCTNI ####Unless otherwise noted, all testing performed by [address] [id number]: [id number] Director: Ramakrishna Browne M.D. Urinalysis, Routineon 2017 Bacteria LM.HPF #/area (Urine sed) Rare Normal NS;RARE [facility] Comment on above: Performed By: #### U A ####Unless otherwise noted, all testing performed by [address] [id number]: [id number] Director: Ramakrishna Browne M.D. Bilirubin,Urine Negative Normal NEG;NEGATIVE [facility] Comment on above: Performed By: #### U A ####Unless otherwise noted, all testing performed by [address] [id number]: [id number] Director: Ramakrishna Browne M.D. Blood,Urine Negative Normal NEG;NEGATIVE [facility] Comment on above: Performed By: #### U A ####Unless otherwise noted, all testing performed by [address] [id number]: [id number] Director: Ramakrishna Browne M.D. Character Clear Normal [facility] Comment on above: Performed By: #### U A ####Unless otherwise noted, all testing performed by [address] [id number]: [id number] Director: Ramakrishna Browne M.D. Color Nom (U) Yellow Normal [facility] Comment on above: Performed By: #### U A ####Unless otherwise noted, all testing performed by [address] [phone]: [id number] Director: Ramakrishna Browne M.D. Glucose Ql (U) Negative Normal NEG;NEGATIVE [facility] Comment on above: Performed By: #### U A ####Unless otherwise noted, all testing performed by [address] [phone]: [id number] Director: Ramakrishna Browne M.D. Ketone,Urine 20 mg/dL High <10 [facility] Comment on above: Performed By: #### U A ####Unless otherwise noted, all testing performed by [address] [id number]: [id number] Director: Ramakrishna Browne M.D. Leuk.Esterase,Urine Small Abnormal Negative [facility] Comment on above: Performed By: #### U A ####Unless otherwise noted, all testing performed by [address] [id number]: [id number] Director: Ramakrishna Browne M.D. Nitrite,Urine Negative Normal NEG;NEGATIVE [facility] Comment on above: Performed By: #### U A ####Unless otherwise noted, all testing performed by [address] [phone]: [id number] Director: Ramakrishna Browne M.D. pH Test strip (U) 5.0 [pH] Normal 4.5-8.0 [facility] Comment on above: Performed By: #### U A ####Unless otherwise noted, all testing performed by [address] [phone]: [id number] Director: Ramakrishna Browne M.D. Protein,Urine Negative Normal NEG;NEGATIVE [facility] Comment on above: Performed By: #### U A ####Unless otherwise noted, all testing performed by [address] [phone]: [id number] Director: Ramakrishna Browne M.D. RBC LM.HPF #/area (Urine sed) /[HPF] Normal 0-5 [facility] Comment on above: Performed By: #### U A ####Unless otherwise noted, all testing performed by [address] [phone]: [id number] Director: Ramakrishna Browne M.D. Specific [place],Urine 1.020 Normal 1.003-1.029 [facility] Comment on above: Performed By: #### U A ####Unless otherwise noted, all testing performed by [address] [phone]: [id number] Director: Ramakrishna Browne M.D. Squamous Epithelial 1 /HPF Normal 0-40 [facility] Comment on above: Performed By: #### U A ####Unless otherwise noted, all testing performed by [address], [place] [id number]: [id number] Director: Ramakrishna Browne M.D. Trans. Epithelial < 1 Normal 0-3 [facility] Comment on above: Performed By: #### U A ####Unless otherwise noted, all testing performed by [address] [phone]: [id number] Director: Ramakrishna Browne M.D. Urobilinogen,Urine < 2.0 Normal <2 [facility] Comment on above: Performed By: #### U A ####Unless otherwise noted, all testing performed by [address] [phone]: [id number] Director: Ramakrishna Browne M.D. WBC,Urine 4 /HPF Normal 0-5 [facility] Comment on above: Performed By: #### U A ####Unless otherwise noted, all testing performed by [address] [phone]: [id number] Director: Ramakrishna Browne M.D. Vital Signs Date Time Vital Sign Value Performing Clinician Facility 03-22-2025 20:12-0400 Body temperature 98.3 [degF] Dr. Leticia Sylvester MD Work Phone: [facility] 03-22-2025 20:12-0400 Diastolic blood pressure 91 mm[Hg] Dr. Leticia Sylvester MD Work Phone: [facility] 03-22-2025 20:12-0400 Heart rate 76 /min Dr. Leticia Sylvester MD Work Phone: [facility] 03-22-2025 20:12-0400 Respiratory rate 20 /min Dr. Leticia Sylvester MD Work Phone: [facility] 03-22-2025 20:12-0400 SaO2% (BldA) [Mass fraction] 94 % Dr. Leticia Sylvester MD Work Phone: [facility] 03-22-2025 20:12-0400 Systolic blood pressure 138 mm[Hg] Dr. Leticia Sylvester MD Work Phone: 3(058)[phone] [place] [address] 03-22-2025 15:13-0400 Body height 165.[address] Leticia Sylvester MD Work Phone: 9(883)[phone] [place] [address] 03-22-2025 15:13-0400 Body mass index (BMI) [Ratio] 54.7 kg/m2 Dr. Leticia Sylvester MD Work Phone: 4(383)299-264202 [place] [address] 03-22-2025 15:13-0400 Body weight 149.[address] Leticia Sylvester MD Work Phone: 7(332)[phone] [place] [address] 03-10-2025 15:00-0400 Body temperature 98.8 [degF] Dr. Leticia Sylvester MD Work Phone: 4(564)001-974202 [place] [address] 03-10-2025 15:00-0400 Diastolic blood pressure 93 mm[Hg] Dr. Leticia Sylvester MD Work Phone: [facility] 03-10-2025 15:00-0400 Heart rate 70 /min Dr. Leticia Sylvester MD Work Phone: [facility] 03-10-2025 15:00-0400 Respiratory rate 17 /min Dr. Leticia Sylvester MD Work Phone: [facility] 03-10-2025 15:00-0400 SaO2% (BldA) [Mass fraction] 97 % Dr. Leticia Sylvester MD Work Phone: [facility] 03-10-2025 15:00-0400 Systolic blood pressure 116 mm[Hg] Dr. Leticia Sylvester MD Work Phone: 0(226)[phone] [place] [address] 03-10-2025 12:18-0400 Body height 165.[address] Leticia Sylvester MD Work Phone: [facility] 03-10-2025 12:18-0400 Body mass index (BMI) [Ratio] 51.5 kg/m2 Dr. Leticia Sylvester MD Work Phone: [facility] 03-10-2025 12:18-0400 Body weight 140.[address] Leticia Sylvester MD Work Phone: [facility] 02-01-2025 12:51-0400 Body height 165.1 cm Eduardo Exira DO Work Phone: [facility] 02-01-2025 12:51-0400 Body mass index (BMI) [Ratio] 53.12 kg/m2 Eduardo Exira DO Work Phone: [facility] 02-01-2025 12:51-0400 Body weight 144.79 kg Eduardo Exira DO Work Phone: [facility] 02-01-2025 12:51-0400 Diastolic blood pressure 82 mm[Hg] Eduardo Exira DO Work Phone: [facility] 02-01-2025 12:51-0400 Heart rate 73 /min Eduardo Exira DO Work Phone: [facility] 02-01-2025 12:51-0400 SaO2% (BldA) [Mass fraction] 95 % Eduardo Exira DO Work Phone: [facility] 02-01-2025 12:51-0400 Systolic blood pressure 136 mm[Hg] Eduardo Exira DO Work Phone: [facility] 12-26-2024 14:14-0400 Body height 165.1 cm Yajaira Canales CNP Work Phone: [facility] 12-26-2024 14:14-0400 Body mass index (BMI) [Ratio] 46.59 kg/m2 Yajaira Canales CNP Work Phone: [facility] 12-26-2024 14:14-0400 Body weight 127.01 kg Yajaira Canales CNP Work Phone: [facility] 12-08-2024 15:40-0400 Body height 165.[address] Leticia Sylvester MD Work Phone: [facility] 12-08-2024 15:40-0400 Body mass index (BMI) [Ratio] 47.9 kg/m2 Dr. Leticia Sylvester MD Work Phone: [facility] 12-08-2024 15:40-0400 Body weight 130.[address] Leticia Sylvester MD Work Phone: [facility] 12-08-2024 15:40-0400 Diastolic blood pressure 114 mm[Hg] Dr. Leticia Sylvester MD Work Phone: [facility] 12-08-2024 15:40-0400 Heart rate 65 /min Dr. Leticia Sylvester MD Work Phone: [facility] 12-08-2024 15:40-0400 Respiratory rate 16 /min Dr. Leticia Sylvester MD Work Phone: [facility] 12-08-2024 15:40-0400 SaO2% (BldA) [Mass fraction] 92 % Dr. Leticia Sylvester MD Work Phone: [facility] 12-08-2024 15:40-0400 Systolic blood pressure 164 mm[Hg] Dr. Leticia Sylvester MD Work Phone: [facility] 11-04-2024 12:34-0500 Body height 165.1 cm Eduardo Exira DO Work Phone: [facility] 11-04-2024 12:34-0500 Body mass index (BMI) [Ratio] 43.95 kg/m2 Eduardo Exira DO Work Phone: [facility] 11-04-2024 12:34-0500 Body weight 119.8 kg Eduardo Exira DO Work Phone: [facility] 11-04-2024 12:34-0500 Diastolic blood pressure 84 mm[Hg] Eduardo Exira DO Work Phone: [facility] 11-04-2024 12:34-0500 Heart rate 77 /min Eduardo Exira DO Work Phone: [facility] 11-04-2024 12:34-0500 SaO2% (BldA) [Mass fraction] 95 % Eduardo Exira DO Work Phone: [facility] 11-04-2024 12:34-0500 Systolic blood pressure 130 mm[Hg] Eduardo Exira DO Work Phone: [facility] 10-18-2024 13:45-0500 Body temperature 98.4 [degF] Dr. Leticia Sylvester MD Work Phone: [facility] 10-18-2024 13:45-0500 Diastolic blood pressure 74 mm[Hg] Dr. Leticia Sylvester MD Work Phone: [facility] 10-18-2024 13:45-0500 Heart rate 53 /min Dr. Leticia Sylvester MD Work Phone: [facility] 10-18-2024 13:45-0500 Respiratory rate 15 /min Dr. Leticia Sylvester MD Work Phone: [facility] 10-18-2024 13:45-0500 SaO2% (BldA) [Mass fraction] 94 % Dr. Leticia Sylvester MD Work Phone: [facility] 10-18-2024 13:45-0500 Systolic blood pressure 124 mm[Hg] Dr. Leticia Sylvester MD Work Phone: [facility] 02-26-2024 12:10-0400 Body height 165.1 cm Eduardo Exira DO Work Phone: [facility] 02-26-2024 12:10-0400 Body mass index (BMI) [Ratio] 44.26 kg/m2 Eduardo Exira DO Work Phone: [facility] 02-26-2024 12:10-0400 Body weight 120.66 kg Eduardo Exira DO Work Phone: [facility] 02-26-2024 12:10-0400 Diastolic blood pressure 80 mm[Hg] Eduardo Exira DO Work Phone: [facility] 02-26-2024 12:10-0400 Heart rate 83 /min Eduardo Exira DO Work Phone: [facility] 02-26-2024 12:10-0400 SaO2% (BldA) [Mass fraction] 95 % Eduardo Exira DO Work Phone: [facility] 02-26-2024 12:10-0400 Systolic blood pressure 126 mm[Hg] Spor Chargers DO Work Phone: [facility] 01-27-2024 14:04-0400 Body mass index (BMI) [Ratio] 43.27 kg/m2 Jaime Holt APRN-TELEPHONE ASSEMBLER Work Phone: [facility] 01-27-2024 14:04-0400 Body temperature 98.4 [degF] Jaime Holt APRN-TELEPHONE ASSEMBLER Work Phone: [facility] 01-27-2024 14:04-0400 Body weight 117.94 kg Jaime Holt APRN-TELEPHONE ASSEMBLER Work Phone: [facility] 01-27-2024 14:04-0400 Diastolic blood pressure 74 mm[Hg] Jaime Holt APRN-TELEPHONE ASSEMBLER Work Phone: [facility] 01-27-2024 14:04-0400 Heart rate 54 /min Jaime Holt APRN-TELEPHONE ASSEMBLER Work Phone: [facility] 01-27-2024 14:04-0400 Respiratory rate 16 /min Jaime Holt APRN-TELEPHONE ASSEMBLER Work Phone: [facility] 01-27-2024 14:04-0400 SaO2% (BldA) [Mass fraction] 93 % Jaime Holt APRN-TELEPHONE ASSEMBLER Work Phone: [facility] 01-27-2024 14:04-0400 Systolic blood pressure 136 mm[Hg] Jaime Holt AWILDA-TELEPHONE ASSEMBLER Work Phone: [facility] 12-19-2023 20:08-0400 Diastolic blood pressure 93 mm[Hg] Leticia Sylvester MD Work Phone: [employer] [facility] 12-19-2023 20:08-0400 Heart rate 70 /min Leticia Sylvester MD Work Phone: [facility] [employer] [facility] 12-19-2023 20:08-0400 Respiratory rate 18 /min Leticia Sylvester MD Work Phone: [facility] 12-19-2023 20:08-0400 SaO2% (BldA) [Mass fraction] 100 % Leticia Sylvester MD Work Phone: [employer] [facility] 12-19-2023 20:08-0400 Systolic blood pressure 159 mm[Hg] Leticia Sylvester MD Work Phone: [facility] [employer] [facility] 12-19-2023 15:39-0400 Body height 165.1 cm Leticia Sylvester MD Work Phone: [facility] 12-19-2023 15:39-0400 Body mass index (BMI) [Ratio] 44.1 kg/m2 Leticia Sylvester MD Work Phone: [facility] [employer] [facility] 12-19-2023 15:39-0400 Body weight 120.2 kg Leticia Sylvester MD Work Phone: [facility] [employer] [facility] 12-19-2023 15:38-0400 Body temperature 97.59 [degF] Leticia Sylvester MD Work Phone: [facility] [employer] [facility] 06-30-2023 13:57-0400 Body height 165.1 cm Yajaira Canales CNP Work Phone: [facility] 06-30-2023 13:57-0400 Body mass index (BMI) [Ratio] 46.59 kg/m2 Yajaira Canales TELEPHONE ASSEMBLER Work Phone: [facility] 06-30-2023 13:57-0400 Body weight 127.01 kg Yajaira Canales CNP Work Phone: [facility] 05-26-2023 15:00-0400 Body temperature 98.29 [degF] Jose Eduardo Dumont MD Work Phone: [facility] 05-26-2023 15:00-0400 Diastolic blood pressure 62 mm[Hg] Jose Eduardo Dumont MD Work Phone: [facility] 05-26-2023 15:00-0400 Heart rate 80 /min Jose Eduardo Dumont MD Work Phone: [facility] 05-26-2023 15:00-0400 Respiratory rate 19 /min Jose Eduardo Dumont MD Work Phone: [facility] 05-26-2023 15:00-0400 SaO2% (BldA) [Mass fraction] 94 % Jose Eduardo Dumont MD Work Phone: [facility] 05-26-2023 15:00-0400 Systolic blood pressure 110 mm[Hg] Jose Eduardo Dumont MD Work Phone: [facility] 05-26-2023 04:49-0400 Body mass index (BMI) [Ratio] 47.01 kg/m2 Jose Eduardo Dumont MD Work Phone: [facility] 05-26-2023 04:49-0400 Body weight 128.14 kg Jose Eduardo Dumont MD Work Phone: [facility] 05-22-2023 20:48-0400 Body height 165.1 cm Jose Eduardo Dumont MD Work Phone: [facility] 04-17-2023 14:21-0400 Diastolic blood pressure 83 mm[Hg] Ishaan Raines MD Work Phone: [facility] 04-17-2023 14:21-0400 Heart rate 57 /min Ishaan Raines MD Work Phone: [facility] 04-17-2023 14:21-0400 Systolic blood pressure 211 mm[Hg] Ishaan Raines MD Work Phone: [facility] 04-17-2023 14:05-0400 Body height 165.1 cm Ishaan Raines MD Work Phone: [facility] 04-17-2023 14:05-0400 Body mass index (BMI) [Ratio] 46.76 kg/m2 Ishaan Raines MD Work Phone: [facility] 04-17-2023 14:05-0400 Body weight 127.46 kg Ishaan Raines MD Work Phone: [facility] 02-16-2023 19:25-0400 Diastolic blood pressure 74 mm[Hg] Leticia Sylvester MD Work Phone: [facility] 02-16-2023 19:25-0400 Heart rate 61 /min Leticia Sylvester MD Work Phone: [facility] 02-16-2023 19:25-0400 Respiratory rate 18 /min Leticia Sylvester MD Work Phone: [facility] 02-16-2023 19:25-0400 SaO2% (BldA) [Mass fraction] 94 % Leticia Sylvester MD Work Phone: [facility] 02-16-2023 19:25-0400 Systolic blood pressure 134 mm[Hg] Leticia Sylvester MD Work Phone: [facility] 02-16-2023 15:59-0400 Body height 165.1 cm Leticia Sylvester MD Work Phone: [facility] 02-16-2023 15:58-0400 Body temperature 98.4 [degF] Leticia Sylvester MD Work Phone: [facility] 10-15-2022 12:36-0500 Body height 165.1 cm Av Delgado MD Work Phone: [facility] 10-15-2022 12:36-0500 Body mass index (BMI) [Ratio] 49.59 kg/m2 Av Delgado MD Work Phone: [facility] [employer] [facility] 10-15-2022 12:36-0500 Body weight 135.17 kg Av Delgado MD Work Phone: [facility] 10-15-2022 12:36-0500 Respiratory rate 18 /min Av Delgado MD Work Phone: [facility] [employer] [facility] 10-01-2022 12:47-0500 Body height 165.1 cm Av Delgado MD Work Phone: [facility] [employer] [facility] 10-01-2022 12:47-0500 Body mass index (BMI) [Ratio] 48.09 kg/m2 Av Delgado MD Work Phone: [facility] 10-01-2022 12:47-0500 Body weight 131.09 kg Av Delgado MD Work Phone: [facility] [employer] [facility] 10-01-2022 12:47-0500 Respiratory rate 18 /min Av Delgado MD Work Phone: [facility] 10-01-2022 12:47-0500 SaO2% (BldA) [Mass fraction] 98 % Av Delgado MD Work Phone: [facility] 09-01-2022 20:43-0500 Diastolic blood pressure 88 mm[Hg] Bao Hsieh MD Work Phone: [facility] [employer] [facility] 09-01-2022 20:43-0500 Heart rate 68 /min Bao Hsieh MD Work Phone: [employer] [facility] 09-01-2022 20:43-0500 Respiratory rate 18 /min Bao Hsieh MD Work Phone: [facility] 09-01-2022 20:43-0500 SaO2% (BldA) [Mass fraction] 94 % Bao Hsieh MD Work Phone: [facility] [employer] [facility] 09-01-2022 20:43-0500 Systolic blood pressure 147 mm[Hg] Bao Hsieh MD Work Phone: [facility] 09-01-2022 16:02-0500 Body mass index (BMI) [Ratio] 48.09 kg/m2 Bao Hsieh MD Work Phone: [facility] 09-01-2022 16:02-0500 Body weight 131.09 kg Bao Hsieh MD Work Phone: [facility] 09-01-2022 16:01-0500 Body temperature 98.01 [degF] Bao Hsieh MD Work Phone: [facility] 08-11-2022 13:00-0500 Diastolic blood pressure 75 mm[Hg] Jennifer Khoury MD Work Phone: [facility] 08-11-2022 13:00-0500 Heart rate 78 /min Jennifer Khoury MD Work Phone: [facility] 08-11-2022 13:00-0500 Respiratory rate 16 /min Jennifer Khoury MD Work Phone: [facility] 08-11-2022 13:00-0500 SaO2% (BldA) [Mass fraction] 97 % Jennifer Khoury MD Work Phone: [facility] 08-11-2022 13:00-0500 Systolic blood pressure 141 mm[Hg] Jennifer Khoury MD Work Phone: [facility] 08-11-2022 10:40-0500 Body temperature 98.2 [degF] Jennifer Khoury MD Work Phone: [facility] 07-28-2022 18:11-0500 Heart rate 68 /min [facility] 07-28-2022 13:44-0500 Body height 165.1 cm [facility] 07-28-2022 13:44-0500 Body mass index (BMI) [Ratio] 47.26 kg/m2 [facility] 07-28-2022 13:44-0500 Body temperature 98.71 [degF] Pse [...] Systolic blood pressure 146 mm[Hg] [facility] 04-23-[facility]22 13:50-0400 Body height 165.1 cm Eusebia Jones RECRUITING TEAM LEAD-TELEPHONE ASSEMBLER Work Phone: [facility] 04-23-2022 13:50-0400 Body mass index (BMI) [Ratio] 45.43 kg/m2 Eusebia Jones RECRUITING TEAM LEAD-TELEPHONE ASSEMBLER Work Phone: [facility] 04-23-2022 13:50-0400 Body temperature 99.39 [degF] Eusebia Jones RECRUITING TEAM LEAD-TELEPHONE ASSEMBLER Work Phone: [facility] 04-23-2022 13:50-0400 Body weight 123.83 kg Eusebia Jones RECRUITING TEAM LEAD-TELEPHONE ASSEMBLER Work Phone: [facility] 04-23-2022 13:50-0400 Diastolic blood pressure 81 mm[Hg] Eusebia Larsonsupa RECRUITING TEAM LEAD-TELEPHONE ASSEMBLER Work Phone: [facility] 04-23-2022 13:50-0400 Heart rate 66 /min Eusebia Robert RECRUITING TEAM LEAD-TELEPHONE ASSEMBLER Work Phone: [facility] 04-23-2022 13:50-0400 Respiratory rate 16 /min Eusebia Jones RECRUITING TEAM LEAD-TELEPHONE ASSEMBLER Work Phone: [facility] 04-23-2022 13:50-0400 Systolic blood pressure 138 mm[Hg] Eusebia Marshasupa RECRUITING TEAM LEAD-TELEPHONE ASSEMBLER Work Phone: [facility] 04-23-2022 11:10-0400 Body height 165.1 cm Jaime Holt APRN-ORTIZ Work Phone: [facility] 04-23-2022 11:10-0400 Body mass index (BMI) [Ratio] 45.43 kg/m2 Jaime Holt APRN-TELEPHONE ASSEMBLER Work Phone: [facility] 04-23-2022 11:10-0400 Body temperature 99.39 [degF] Jaime Holt APRN-ORTIZ Work Phone: [facility] 04-23-2022 11:10-0400 Body weight 123.83 kg Jaime Holt APRN-ORTIZ Work Phone: [facility] 04-23-2022 11:10-0400 Diastolic blood pressure 81 mm[Hg] Jaime Holt APRN-ORTIZ [facility] 04-23-2022 11:10-0400 Heart rate 66 /min Jaime Holt APRN-ORTIZ Work Phone: [facility] 04-23-2022 11:10-0400 Respiratory rate 16 /min Jaime Holt APRN-ORTIZ Work Phone: [facility] 04-23-2022 11:10-0400 Systolic blood pressure 138 mm[Hg] Jaime Holt APRN-ORTIZ Work [facility]: [facility] 01-31-2022 08:41-0400 Body temperature 98.49 [degF] Av Bertrand MD Work Phone: [facility] [employer] [facility] 01-31-2022 08:41-0400 Diastolic blood pressure 73 mm[Hg] Av Bertrand MD Work Phone: [employer] [facility] 01-31-2022 08:41-0400 Heart rate 73 /min Av Bertrand MD Work Phone: [facility] 01-31-2022 08:41-0400 Respiratory rate 17 /min Av Bertrand MD Work Phone: [facility] 01-31-2022 08:41-0400 SaO2% (BldA) [Mass fraction] 92 % Av Bertrand MD Work Phone: [facility] 01-31-2022 08:41-0400 Systolic blood pressure 137 mm[Hg] Av Bertrand MD Work Phone: [facility] 01-30-2022 04:56-0400 Body mass index (BMI) [Ratio] 48.11 kg/m2 Av Bertrand MD Work Phone: [facility] 01-30-2022 04:56-0400 Body weight 131.13 kg Av Bertrand MD Work Phone: [facility] 01-27-2022 22:00-0400 Body height 165.1 cm Av Bertrand MD Work Phone: [facility] 12-17-2020 15:36-0400 Body Temperature 97.39 [degF] [facility] 12-17-2020 15:36-0400 BP Diastolic 84 mm[Hg] [facility] 12-17-2020 15:36-0400 BP Systolic 116 mm[Hg] [facility] 12-17-2020 15:36-0400 Pulse (Heart Rate) 70 /min [facility] 12-17-2020 15:36-0400 Pulse Oximetry 94 % [facility] 12-11-2020 15:05-0400 Body Temperature 97.9 [degF] [facility] 12-11-2020 15:05-0400 BP Diastolic 91 mm[Hg] [facility] 12-11-2020 15:05-0400 BP Systolic 146 mm[Hg] [facility] 12-11-2020 15:05-0400 Pulse (Heart Rate) 66 /min [facility] 12-11-2020 15:05-0400 Pulse Oximetry 95 % [facility] 12-11-2020 15:05-0400 Respiratory Rate 17 /min [facility] 12-06-2020 11:25-0400 Body Temperature 96.8 [degF] [facility] 11:25-0400 BP Diastolic 87 mm[Hg] [facility] 12-06-2020 11:25-0400 BP Systolic 104 mm[Hg] [facility] 12-06-2020 11:25-0400 Pulse (Heart Rate) 68 /min [facility] 12-06-2020 11:25-0400 Pulse Oximetry 95 % [facility] 12-06-2020 11:25-0400 Respiratory Rate 16 /min [facility] 12-05-2020 15:52-0400 Body Temperature 97.5 [degF] Valarie Lorri [facility] 12-05-2020 15:52-0400 BP Diastolic 74 mm[Hg] [facility] 12-05-2020 15:52-0400 BP Systolic 141 mm[Hg] [facility] 12-05-2020 15:52-0400 Pulse (Heart Rate) 73 /min [facility] 12-05-2020 15:52-0400 Pulse Oximetry 91 % Valarie Lorri [facility] 12-03-2020 15:00-0400 Body Temperature 97 [degF] Ashley Mcgrath [facility] 12-03-2020 15:00-0400 BP Diastolic 80 mm[Hg] Ashley Mcgrath [facility] 12-03-2020 15:00-0400 BP Systolic 150 mm[Hg] Ashley [facility] 12-03-2020 15:00-0400 Pulse (Heart Rate) 68 /min Ashley [facility] 12-03-2020 15:00-0400 Pulse Oximetry 97 % Ashley Mcgrath [facility] 12-03-2020 15:00-0400 Respiratory Rate 16 /min Ashley Mcgrath [facility] 12-01-2020 16:19-0500 Body Temperature 98.29 [degF] Adam Lyn [facility] 12-01-2020 16:19-0500 BP Diastolic 81 mm[Hg] Adam Lyn [facility] 12-01-2020 16:19-0500 BP Systolic 141 mm[Hg] Adam Lyn [facility] 12-01-2020 16:19-0500 Pulse (Heart Rate) 68 /min [facility] 12-01-2020 16:19-0500 Pulse Oximetry 91 % [facility] 12-01-2020 08:15-0500 Respiratory Rate 16 /min [facility] 11-28-2020 20:41-0500 BMI (Body Mass Index) 53.78 kg/m2 [facility] 11-28-2020 20:41-0500 Body weight 146.6 kg [facility] 11-28-2020 20:41-0500 Height 165.1 cm [facility] 11-28-2020 12:16-0500 Body Temperature 97.7 [degF] [facility] 11-28-2020 12:16-0500 BP Diastolic 68 mm[Hg] [facility] 11-28-2020 12:16-0500 BP Systolic 130 mm[Hg] [facility] 11-28-2020 12:16-0500 Pulse (Heart Rate) 70 /min [facility] 11-28-2020 12:16-0500 Pulse Oximetry 97 % [facility] 11-28-2020 12:16-0500 Respiratory Rate 16 /min [facility] 11-26-2020 13:10-0500 Body Temperature 97.9 [degF] [facility] 11-26-2020 13:10-0500 BP Diastolic 81 mm[Hg] [facility] 11-26-2020 13:10-0500 BP Systolic 120 mm[Hg] [facility] 11-26-2020 13:10-0500 Pulse (Heart Rate) 62 /min [facility] 11-26-2020 13:10-0500 Pulse Oximetry 96 % [facility] 11-26-2020 13:10-0500 Respiratory Rate 17 /min [facility] 11-23-2020 08:59-0500 BP Diastolic 67 mm[Hg] [facility] 11-23-2020 08:59-0500 BP Systolic 122 mm[Hg] [facility] 11-23-2020 08:59-0500 Pulse (Heart Rate) 61 /min Gisele Cervantes [facility] 11-23-2020 08:59-0500 Pulse Oximetry 96 % Gisele Cervantes [facility] 11-23-2020 08:59-0500 Respiratory Rate 17 /min Gisele Cervantes [facility] 11-22-2020 13:12-0500 Body Temperature 97.5 [degF] Marcello [facility] 11-22-2020 13:12-0500 BP Diastolic 64 mm[Hg] [facility] 11-22-2020 13:12-0500 BP Systolic 103 mm[Hg] [facility] 11-22-2020 13:12-0500 Pulse Oximetry 88 % [facility] Comment on above: returns to WN after 30sec of pursed lip breathing 11-22-2020 13:12-0500 Respiratory Rate 14 /min Marcello [facility] 11-19-2020 12:30-0500 Body Temperature 98.2 [degF] [facility] 11-19-2020 12:30-0500 BP Diastolic 100 mm[Hg] [facility] 11-19-2020 12:30-0500 BP Systolic 179 mm[Hg] [facility] 11-19-2020 12:30-0500 Pulse (Heart Rate) 62 /min [facility] 11-19-2020 12:30-0500 Pulse Oximetry 94 % [facility] 11-16-2020 12:15-0500 Body Temperature 98.01 [degF] [facility] 11-16-2020 12:15-0500 BP Diastolic 83 mm[Hg] [facility] 11-16-2020 12:15-0500 BP Systolic 138 mm[Hg] [facility] 11-16-2020 12:15-0500 Pulse (Heart Rate) 60 /min [facility] 11-16-2020 12:15-0500 Pulse Oximetry 98 % [facility] 11-16-2020 12:15-0500 Respiratory Rate 15 /min [facility] 11-16-2020 08:45-0500 Body Temperature 97.3 [degF] [facility] 11-16-2020 08:45-0500 BP Diastolic 83 mm[Hg] Valarie Blackmon [facility] 11-16-2020 08:45-0500 BP Systolic 138 mm[Hg] Valarie Blackmon [facility] 11-16-2020 08:45-0500 Pulse (Heart Rate) 60 /min Valarie Blackmon [facility] 11-16-2020 08:45-0500 Pulse Oximetry 98 % Valarie Blackmon [facility] 11-16-2020 08:45-0500 Respiratory Rate 16 /min Valarie Blackmon [facility] 11-16-2020 08:42-0500 BMI (Body Mass Index) 54.91 kg/m2 Ashley Mcgrath [facility] 11-16-2020 08:42-0500 Body Temperature 98.01 [degF] Ashley Mcgrath [facility] 11-16-2020 08:42-0500 Body weight 149.69 kg Ashley Mcgrath [facility] 11-16-2020 08:42-0500 BP Diastolic 83 mm[Hg] Ashley Mcgrath [facility] 11-16-2020 08:42-0500 BP Systolic 138 mm[Hg] Ashley Mcgrath [facility] 11-16-2020 08:42-0500 Height 165.1 cm Ashley Mcgrath [facility] 11-16-2020 08:42-0500 Pulse (Heart Rate) 60 /min Ashley Mcgrath [facility] 11-16-2020 08:42-0500 Pulse Oximetry 98 % Ashley Mcgrath [facility] 11-16-2020 08:42-0500 Respiratory Rate 16 /min Ashley Mcgrath [facility] 11-14-2020 15:58-0500 Body Temperature 97.5 [degF] [facility] 11-14-2020 15:58-0500 BP Diastolic 93 mm[Hg] [facility] 11-14-2020 15:58-0500 BP Systolic 151 mm[Hg] [facility] 11-14-2020 15:58-0500 Pulse (Heart Rate) 78 /min [facility] 11-14-2020 15:58-0500 Pulse Oximetry 92 % [facility] 11-14-2020 15:58-0500 Respiratory Rate 18 /min [facility] 11-14-2020 09:33-0500 BMI (Body Mass Index) 54.66 kg/m2 Digna Reagan [facility] 11-14-2020 09:33-0500 Body weight 149 kg Digna Reagan [facility] 11-14-2020 09:33-0500 Height 165.1 cm Digna Reagan [facility] 11-01-2019 16:14-0500 Pulse Oximetry 91 % Cecil Gomez [facility] 11-01-2019 16:14-0500 Respiratory Rate 22 /min Cecil [facility] 11-01-2019 16:02-0500 BP Diastolic 75 mm[Hg] Cecil [facility] 11-01-2019 16:02-0500 BP Systolic 129 mm[Hg] Cecil [facility] 11-01-2019 16:02-0500 Pulse (Heart Rate) 61 /min Cecil [facility] 11-01-2019 13:09-0500 Body Temperature 98.71 [degF] Cecil oGmez [facility] 08-22-2019 14:19-0500 BMI (Body Mass Index) 48.76 kg/m2 Giorgi De Los Santos [facility] 08-22-2019 14:19-0500 Body weight 132.9 kg Giorgi De Los Santos [facility] 08-22-2019 14:19-0500 BP Diastolic 67 mm[Hg] Giorgi De Los Santos [facility] 08-22-2019 14:19-0500 BP Systolic 111 mm[Hg] Giorgi De Los Santos [facility] 08-22-2019 14:19-0500 Pulse (Heart Rate) 91 /min Giorgi De Los Santos [facility] 08-22-2019 14:19-0500 Pulse Oximetry 93 % Giorgi De Los Santos [facility] 07-29-2019 10:52-0500 BP Diastolic 69 mm[Hg] Joe Colón [facility] 07-29-2019 10:52-0500 BP Systolic 112 mm[Hg] Joe Colón [facility] 07-29-2019 10:52-0500 Pulse (Heart Rate) 62 /min Joe Colón [facility] 07-29-2019 10:52-0500 Pulse Oximetry 93 % Joe Colón [facility] 07-29-2019 10:52-0500 Respiratory Rate 17 /min Joe Colón [facility] 07-29-2019 10:07-0500 Body Temperature 97 [degF] Joe Colón [facility] 07-28-2019 12:38-0500 BMI (Body Mass Index) 48.5 kg/m2 Digna Downs [facility] 07-28-2019 12:38-0500 Body Temperature 98.6 [degF] Digna Downs [facility] 07-28-2019 12:38-0500 Body weight 132.2 kg Digna Downs [facility] 07-28-2019 12:38-0500 BP Diastolic 83 mm[Hg] Digna Downs [facility] 07-28-2019 12:38-0500 BP Systolic 135 mm[Hg] Digna Downs [facility] 07-28-2019 12:38-0500 Height 165.1 cm Digna Downs [facility] 07-28-2019 12:38-0500 Pulse (Heart Rate) 77 /min Digna Downs [facility] 07-28-2019 12:38-0500 Pulse Oximetry 93 % Digna Downs [facility] 07-28-2019 12:38-0500 Respiratory Rate 18 /min Digna Downs [facility] 07-08-2019 12:41-0400 BP Diastolic 65 mm[Hg] [facility] 07-08-2019 12:41-0400 BP Systolic 96 mm[Hg] [facility] 07-08-2019 12:41-0400 Pulse (Heart Rate) 64 /min [facility] 07-08-2019 12:41-0400 Pulse Oximetry 94 % [facility] 07-08-2019 12:27-0400 Respiratory Rate 14 /min [facility] 07-08-2019 07:14-0400 Body Temperature 98.29 [degF] [facility] 07-08-2019 07:01-0400 BMI (Body Mass Index) 47.59 kg/m2 [facility] 07-08-2019 07:01-0400 Body weight 129.73 kg [facility] 07-08-2019 07:01-0400 Height 165.1 cm [facility] 06-30-2019 16:08-0400 BP Diastolic 92 mm[Hg] Lupe Jeong [facility] 06-30-2019 16:08-0400 BP Systolic 128 mm[Hg] Lupe Jeong [facility] 06-23-2019 14:21-0400 Body weight 133.36 kg Giorgi De Los Santos [facility] 06-23-2019 14:21-0400 BP Diastolic 79 mm[Hg] Giorgi De Los Santos [facility] 06-23-2019 14:21-0400 BP Systolic 108 mm[Hg] Giorgi De Los Santos [facility] 06-23-2019 14:21-0400 Pulse (Heart Rate) 96 /min Giorgi De Los Santos [facility] 06-23-2019 14:21-0400 Pulse Oximetry 91 % Giorgi Leesukumar [facility] Encounters Encounter Date Encounter Type Care Provider Facility Start: 03-22-2025 Evaluation and management of inpatient Dr. Eva Williamson DO -Progressive Care Unit Work Phone: Start: 03-22-[address] 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 Leticia Sylvester MD Work Phone: [facility] Work Phone: Start: 02-01-2025 End: 02-01-2025 ambulatory [facility] Start: 02-01-2025 End: 02-01-2025 Office outpatient visit 25 minutes [facility] Work Phone: [facility] Comment on above: Current moderate epi sode of major depressive disorder without prior episode (Multi) (Primary Dx); Other fatigue; 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, psychotic disturbance, mood disturbance, or anxiety (Multi); Class 3 severe obesity due to excess calories with serious comorbidity and body mass index (BMI) of 50.0 to 59.9 in adult; KELLY (obstructive sleep apnea); Hyperglycemia; Mixed hyperlipidemia; Primary insomnia; ASHD (arteriosclerotic heart disease); Moderate episode of recurrent major depressive disorder; Vitamin D deficiency Start: 01-19-2025 End: 01-19-[address] Leticia Sylvester MD Work Phone: [facility] Work Phone: Start: 01-19-2025 End: 01-19-2025 Patient encounter procedure Vaishnavi LEON -Radiology, [facility] Work Phone: Start: 01-19-2025 End: 01-19-2025 ambulatory [facility] Start: 01-17-2025 End: 01-17-[address] Leticia Sylvester MD Work Phone: [facility] Work Phone: Start: 01-17-2025 End: 01-17-2025 Patient encounter procedure Vaishnavi LEON -Radiology, [facility] Work Phone: Start: 01-17-2025 End: 01-17-2025 ambulatory [facility] Start: 01-05-2025 End: 01-05-[address] Leticia Sylvester MD Work Phone: [facility] Work Phone: Start: 01-05-2025 End: 01-05-2025 Patient encounter procedure Vaishnavi LEON -Laboratory Work Phone: Start: 01-05-2025 End: 01-05-2025 ambulatory [facility] Start: 12-26-2024 End: 12-30-2024 ambulatory [facility] Start: 12-26-2024 End: 12-26-2024 Office outpatient visit 25 minutes Yajaira Canales [facility] Work Phone: [facility] Comment on above: Primary osteoarthrit is of both knees (Primary Dx) Start: 12-26-2024 ambulatory SONNY L MELANIE [facility] Start: 12-15-2024 End: 12-15-[address] Leticia Sylvester MD Work Phone: [facility] Work Phone: Start: 12-15-2024 End: 12-15-2024 Patient encounter procedure Vaishnavi BOWLESC [facility] Work Phone: Start: 12-15-2024 End: 12-15-2024 ambulatory [facility] Facility:[facility] Start: 12-13-2024 End: 12-13-2024 ambulatory EVA Turner [facility] Facility:[facility] Start: 12-13-2024 End: 12-13-2024 Patient encounter procedure Alaina Peralta MD Work Phone: Ophthalmology Comment on above: Vitelliform lesion o f macula/both eyes (Primary Dx); Combined forms of age-related cataract of both eyes; Sleep apnea, unspecified type; Hypercholesterolemia Start: 12-08-2024 End: 12-08-2024 Patient encounter procedure Vaishnavi LEON -[facility] Work Phone: Start: 12-08-2024 End: 12-08-2024 ambulatory Vaishnavi Whitt Facility:[facility] Start: 11-04-2024 End: 11-04-2024 Office outpatient visit 25 minutes [facility] Work Phone: [facility] Comment on above: 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, psychotic disturbance, mood disturbance, or anxiety (Multi) (Primary Dx); KELLY (obstructive sleep apnea); Moderate episode of recurrent major depressive disorder; Current moderate episode of major depressive disorder without prior episode (Multi); Cirrhosis of liver without ascites, unspecified hepatic cirrhosis type (Multi); Disorder involving thrombocytopenia (CMS-HCC); Mixed hyperlipidemia; Primary insomnia; Hyperglycemia Start: 11-04-2024 End: 02-14-2025 ambulatory [facility] Start: 10-18-2024 End: 10-18-2024 Patient encounter procedure Destiny LEON -[facility] Work Phone: Start: 10-18-2024 End: 10-18-[address] Silas Pena MD -[facility] Work Phone: Start: 10-18-2024 End: 10-18-2024 ambulatory Silas Pena Facility:[facility] Start: 10-18-2024 End: 10-18-2024 ambulatory Destiny Bennett Facility:[facility] Start: 08-08-2024 End: 08-08-2024 Telephone encounter Estefani Fox RN [facility] Anc[facility] Start: 07-29-2024 End: 08-03-2024 Telephone encounter Jaime Holt APRN-TELEPHONE ASSEMBLER Work Phone: [facility] Comment on above: Speak to Provider Start: 07-28-2024 End: 07-28-2024 Transcribe Orders Kari Cote CNP Work Phone: [facility] Central Scheduling Comment on above: Cognitive communicat ion deficit (Primary Dx); Muscle weakness Start: 07-25-2024 End: 07-26-2024 Telephone encounter Jaime Holt APRN-TELEPHONE ASSEMBLER Work Phone: [facility] Comment on above: Discuss results test /procedures Discuss results test /procedures; Left Message To Call Back Start: 07-11-2024 ambulatory Chas Reodica Facility:[facility] Start: 07-11-2024 End: 07-13-2024 Evaluation and management of inpatient Vinicio Mayberrylucilaeri Facility:[facility] Start: 06-24-2024 End: 06-24-2024 Emergency department patient visit [facility] Start: 03-01-2024 End: 03-01-2024 ambulatory [facility] Start: 02-26-2024 End: 02-26-2024 ambulatory [facility] Start: 02-26-2024 End: 02-26-2024 Office outpatient new 45 minutes [facility] Work Phone: [facility] Comment on above: Disorder involving t hrombocytopenia (CMS-HCC) (Primary Dx); Mixed hyperlipidemia; Current moderate episode of major depressive disorder without prior episode (Multi); Obesity, morbid (Multi); KELLY (obstructive sleep apnea); Primary insomnia; Vitamin D deficiency; Hyperglycemia; Cirrhosis of liver without ascites, unspecified hepatic cirrhosis type (Multi) Start: 02-26-2024 End: 02-26-2024 ambulatory [facility] Start: 02-19-2024 End: 02-19-2024 ambulatory UNKNOWN PROVIDER Facility:[facility] Start: 02-19-2024 End: 02-19-2024 Subsequent hospital visit by physician [address] Comment on above: Hepatic cirrhosis, u nspecified hepatic cirrhosis type (HCC) (Primary Dx); Fatty liver Hepatic cirrhosis, u nspecified hepatic cirrhosis type, unspecified whether ascites present (HCC) Start: 02-01-2024 [facility] Start: 01-28-2024 Patient Outreach Sage Liliane HAAS Posibl. Phone: [facility] [employer] Comment on above: Other family/social problem NOS (TRANSPORTATION ) Start: 01-27-2024 End: 01-27-2024 Clinical Support [facility] Comment on above: Arrived Start: 01-27-2024 End: 01-27-2024 Office outpatient visit 40 minutes Jaime ROMERO Work Phone: [facility] Comment on above: Hepatic cirrhosis, u nspecified hepatic cirrhosis type, unspecified whether ascites present (HCC) (Primary Dx); Assistance needed with transportation; Anxiety about health; Insomnia, unspecified type; Fatty liver Start: 01-27-2024 End: 01-27-2024 ambulatory UNKNOWN PROVIDER Facility:[facility] Start: 01-12-2024 End: 01-12-2024 Emergency department patient visit [facility] Start: 12-19-2023 End: 12-19-2023 Emergency department patient visit [facility] Start: 12-19-2023 End: 12-19-2023 Emergency department patient visit Leticia Sylvester MD Work Phone: [facility] Emergency Department Start: 11-23-2023 Transcribe Orders Leticia Sylvester MD Work Phone: [facility] Comment on above: Migraine with aura, with intractable migraine, so stated, with status migrainosus (Primary Dx) Start: 11-22-2023 Letter encounter [facility] Work Phone: Start: 08-19-2023 ambulatory CAROL ANN BONILLA [facility] Start: 08-19-2023 End: 08-19-2023 Subsequent hospital visit by physician Carol Ann Bonilla MD Work Phone: [facility] Start: 08-15-2023 Letter encounter Lupillo Ocampo MD Work Phone: [facility] Start: 08-10-2023 End: 08-14-2023 ambulatory PROVIDER NOT IN SYSTEM [facility] [facility] Start: 06-30-2023 End: 06-30-2023 Office outpatient new 30 minutes Yajaira Canales CNP Work Phone: [facility] Phys[facility] Comment on above: Primary osteoarthrit is of left knee (Primary Dx) Start: 05-22-2023 End: 05-26-2023 ambulatory CALVIN PIMENTEL [facility] Start: 05-22-2023 End: 05-26-2023 Emergency department patient visit Jose Eduardo Dumont MD Work Phone: [facility] Med Surg Comment on above: Hypertensive urgency Start: 05-01-2023 End: 05-01-2023 Emergency department patient visit MIN GEORGE [facility] Start: 04-17-2023 End: 04-17-2023 Office outpatient new 45 minutes Leticia Sylvester MD Work Phone: [facility] Comment on above: Pain in left lower l eg Start: 02-16-2023 End: 02-16-2023 Emergency department patient visit [facility] Start: 02-16-2023 End: 02-16-2023 Emergency department patient visit Leticia Sylvester MD Work Phone: [facility] Emergency Department Start: 11-05-2022 End: 11-05-2022 Emergency department patient visit LETICIA SYLVESTER [facility] Start: 10-15-2022 End: 10-15-2022 Patient encounter procedure Av Delgado MD Work Phone: [facility] Urology Comment on above: Urinary frequency (P rimary Dx); Other microscopic hematuria Start: 10-09-2022 End: 10-09-2022 Subsequent hospital visit by physician Av Delgado MD Work Phone: [facility] CT Scan Comment on above: Arrived Start: 10-01-2022 End: 10-01-2022 Office outpatient new 45 minutes Av Delgado MD Work Phone: [facility] Urology Comment on above: Other microscopic he maturia (Primary Dx); Urinary frequency Start: 09-11-2022 Letter encounter Lupillo Ocampo MD Work Phone: [facility] Financial Clearance Start: 09-01-2022 End: 09-01-2022 Emergency department patient visit Bao Hsieh MD Work Phone: [facility] Emergency Department Start: 08-23-2022 Letter encounter Lupillo Ocampo MD Work Phone: [facility] Start: 08-19-2022 End: 08-20-2022 Phys/qhp telephone evaluation 21-30 min Eusebia Jones APRN-TELEPHONE ASSEMBLER Work Phone: [facility] G[facility]enterology Comment on above: Hiatal hernia (Prima ry Dx); Grade I hemorrhoids; Early satiety; Epigastric pain Start: 08-19-2022 Letter encounter Lupillo Ocampo MD Work Phone: [facility] Start: 08-11-2022 End: 08-11-2022 Anesthesia consultation Lawrence Russell MD Work Phone: [facility] Start: 08-11-2022 End: 08-11-2022 Subsequent hospital visit by physician Jennifer Khoury MD Work Phone: [facility] Comment on above: RUQ pain (Primary Dx ); Change in bowel habits; Rectal bleeding; Cirrhosis of liver without ascites, unspecified hepatic cirrhosis type (HCC); History of colonic polyps; Esophageal dysphagia; Grade I hemorrhoids; Adenomatous polyp of sigmoid colon Start: 08-08-2022 End: 08-08-2022 Office outpatient visit 5 minutes Lisa Santana RN Work Phone: [facility] Comment on above: Encounter for dominick leone testing for severe acute respiratory syndrome coronavirus 2 (SARS-CoV-2) (Primary Dx) Start: 08-06-2022 Orders Only Av Ellis APR N-TELEPHONE ASSEMBLER Work Phone: [facility] Gastroenterology Start: 08-04-2022 Orders Only Eusebia Jones RECRUITING TEAM LEAD-TELEPHONE ASSEMBLER Work Phone: [facility] Gastroenterology Start: 08-01-2022 Orders Only Eusebia Jones RECRUITING TEAM LEAD-TELEPHONE ASSEMBLER Work Phone: [facility] Gastroenterology Start: 07-28-2022 End: 07-28-2022 Patient encounter procedure Pse Anesthesia [facility] Pre Surgical Evaluation Comment on above: Pre-op evaluation (P rimary Dx) Start: 07-28-2022 End: 07-28-2022 Preprocedural examination done Pse Anesthesia [facility] Pre Surgical Evaluation Start: 05-21-2022 Letter encounter Lupillo Ocampo MD Work Phone: [facility] Start: 05-16-2022 Letter encounter Lupillo Ocampo MD Work Phone: [facility] Start: 04-25-2022 Letter encounter [facility] Gastro[facility]ology Start: 04-23-2022 End: 04-23-2022 Letter encounter [facility] Comment on above: Arrived Start: 04-23-2022 End: 04-23-2022 Office outpatient visit 25 minutes Jaime Holt RECRUITING TEAM LEAD-TELEPHONE ASSEMBLER Work Phone: [facility] Comment on above: Hepatic cirrhosis, u nspecified hepatic cirrhosis type, unspecified whether ascites present (HCC) (Primary Dx); Abdominal pain, unspecified abdominal location; Abnormal finding of blood chemistry, unspecified ; Abnormal findings on diagnostic imaging of other parts of digestive tract ; Body mass index (BMI) 45.0-49.9, adult (HCC) Rectal bleeding ([facility] Dx); Constipation, unspecified constipation type; Change in bowel habits; RUQ pain; Esophageal dysphagia; Encounter for laboratory testing for severe acute respiratory syndrome coronavirus 2 (SARS-CoV-2); Body mass index (BMI) 45.0-49.9, adult (HCC) Start: 02-14-2022 Letter encounter Lupillo Ocampo MD Work Phone: [facility] Start: 01-27-2022 End: 01-31-2022 Emergency department patient visit Av Bertrand MD Work Phone: [facility] Med Surg Comment on above: Chest pain Start: 10-22-2021 Home visit Irene champagne RN [facility] Health Comment on above: CASE COMMUNICATION Start: 10-21-2021 ambulatory [facility] Start: 09-26-2021 ambulatory [facility] Facility:[facility] Start: 08-29-2021 ambulatory [facility] Facility:[facility] Start: 06-07-2021 ambulatory [facility] Facility:[facility] Start: 04-03-2021 End: 04-03-2021 Subsequent hospital visit by physician Leticia Sylvester MD Work Phone: [facility] Ultrasound Comment on above: Arrived Start: 04-03-2021 ambulatory [facility]F Facility:[facility] Start: 03-28-2021 End: 03-28-2021 Subsequent hospital visit by physician Leticia Sylvester MD Work Phone: [facility] Ortho Clinic Comment on above: Arrived Start: 02-27-2021 ambulatory [facility]F Facility:[facility] Start: 02-20-2021 ambulatory [facility] Facility:[facility] Start: 02-15-2021 ambulatory JESSICA AND[facility] Start: 02-13-2021 End: 02-13-2021 Refill Giorgi De Los Santos MD Work Phone: [facility] Comment on above: Medication Refill; M edication Refill Start: 01-30-2021 ambulatory [facility] Facility:[facility] Start: 01-16-2021 ambulatory [facility] Facility:[facility] Start: 01-16-2021 ambulatory [facility]ELF Facility:[facility] Start: 01-02-2021 ambulatory [facility] Facility:[facility] Start: 01-01-2021 ambulatory [facility] Facility:[facility] Start: 12-28-2020 ambulatory NESHA Gabriela Moreirai ty:[facility] Start: 12-28-2020 End: 12-28-2020 Home visit Valarie Blackmon [facility] Comment on above: OT OASIS DISCHARGE Start: 12-26-2020 End: 12-26-2020 Home visit Nasima Acevedo [facility] Home [facility] Comment on above: SEAM TAPER MACHINE HH MISSED VISIT BURROWS MISSED VISIT Start: 12-26-2020 ambulatory [facility] Facility:[facility] Start: 12-21-2020 End: 12-21-2020 Home visit Gisele Cervantes [facility] Comment on above: BURROWS MISSED VISIT Start: 12-19-2020 End: 12-19-2020 Home visit Liliam Whiting [facility] Heal Comment on above: RESPIRATORY CARE PROGRAM DIRECTOR MISSED VISIT SEAM TAPER MACHINE HH MISSED VISIT Start: 12-17-2020 End: 12-17-2020 Home visit Valarie Blackmon [facility] Heal Comment on above: OT REASSESSMENT Start: 12-14-2020 End: 12-14-2020 Home visit Jessenia Reynoso [facility] Comment on above: TELEPHONE ENCOUNTER Start: 12-13-2020 End: 12-13-2020 Home visit Valarie Blackmon [facility] Comment on above: OT MISSED VISIT Start: 12-12-2020 End: 12-12-2020 Home visit Liliam Whiting [facility] He[facility] Comment on above: RESPIRATORY CARE PROGRAM DIRECTOR HH ROUTINE SEAM TAPER MACHINE HH MISSED VISIT Start: 12-11-2020 End: 12-11-2020 Home visit Annalee Brohm [facility] Comment on above: PT NON-OASIS/DISCIPL INE DISCHARGE BURROWS ROUTINE VISIT Start: 12-06-2020 End: 12-06-2020 Home visit Annalee Dyson [facility] Comment on above: PT INITIAL EVALUATIO N Start: 12-05-2020 End: 12-05-2020 Home visit Valariemarcelino Blackmon [facility] Comment on above: OT SECONDARY KRYSTIN Start: 12-05-2020 End: 12-05-2020 Home visit Liliam Whiting [facility] Comment on above: RESPIRATORY CARE PROGRAM DIRECTOR HH ROUTINE Start: 12-04-2020 End: 12-04-2020 Home visit Annalee Dyson [facility] Comment on above: CASE COMMUNICATION Start: 12-03-2020 End: 12-03-2020 Home visit Ashley Mcgrath [facility] Comment on above: SN HH OASIS RESUMPTI ON OF CARE Start: 11-28-2020 End: 12-01-2020 Evaluation and management of inpatient Adam Lyn Work Phone: [facility] Med Surg Oncology Start: 11-28-2020 End: 11-28-2020 Home visit Liliam Whiting [facility] Comment on above: RESPIRATORY CARE PROGRAM DIRECTOR MISSED VISIT BURROWS ROUTINE VISIT Start: 11-27-2020 End: 11-27-2020 Home visit Ashley Mcgrath [facility] Comment on above: CASE COMMUNICATION SN MISSED VISIT Start: 11-26-2020 End: 11-26-2020 Home visit Annalee Dyson [facility] Comment on above: PT MISSED VISIT BURROWS ROUTINE VISIT Start: 11-23-2020 End: 11-23-2020 Home visit Gerhardadrianneheather Lewis [facility] Comment on above: CASING IN LINE SETTER MISSED VISIT BURROWS ROUTINE VISIT SN MISSED VISIT Start: 11-22-2020 End: 11-22-2020 Home visit Gerhardadrianneheather Rileyey [facility] Comment on above: CASING IN LINE SETTER ROUTINE VISIT Start: 11-19-2020 End: 11-19-2020 Subsequent hospital visit by physician Digna Reagan Work Phone: [facility] Comment on above: Bilateral pain of le g and foot Start: 11-19-2020 End: 11-19-2020 Home visit Valarie Blackmon [facility] Comment on above: OT ROUTINE VISIT Start: 11-16-2020 End: 11-16-2020 Home visit Carmen Gil [facility] Comment on above: CASE COMMUNICATION PT INITIAL EVALUATIO N OT INITIAL EVALUATIO N SN HH OASIS START OF CARE Start: 11-14-2020 End: 11-14-2020 Subsequent hospital visit by physician Digna Reagan Work Phone: [facility] Periop Start: 11-10-2020 End: 11-10-2020 Patient encounter procedure [facility] Start: 11-08-2020 Pre-operative examination, unspecified [facility] Work Phone: Start: 11-08-2020 Preprocedural examination done Lupillo Ocampo MD Work Phone: [facility] Start: 11-05-2020 End: 11-05-2020 Transcribe Orders Elizabeth [facility] Comment on above: Contact with or expo sure to viral disease (Primary Dx) Start: 11-03-2020 Preprocedural examination done Giorgi De Los Santos MD Work Phone: [facility] Start: 10-29-2020 End: 10-29-2020 Transcribe Orders Elizabeth Vieira [facility] Comment on above: COVID-19 (Primary Dx ) Start: 11-01-2019 End: 11-01-2019 Emergency department patient visit Cecil Gomez Work Phone: [facility] Emergency Department Comment on above: Arthritis of right s [place] region (Primary Dx); Bronchospasm Start: 09-20-2019 End: 09-20-2019 Subsequent hospital visit by physician Giorgi De Los Santos Work Phone: [facility] CT Scan Comment on above: MCGOWAN (dyspnea on exer tion) Start: 09-05-2019 End: 09-05-2019 Subsequent hospital visit by physician Giorgi De Los Santos Work Phone: [facility] Comment on above: MCGOWAN (dyspnea on exer tion) Start: 08-22-2019 End: 08-22-2019 Office outpatient visit 25 minutes Giorgi De Los Santos Work Phone: [facility] Comment on above: MCGOWAN (dyspnea on exer tion) (Primary Dx); ASHD (arteriosclerotic heart disease) Start: 07-29-2019 End: 07-29-2019 Subsequent hospital visit by physician Joe Colón Work Phone: [facility] Endoscopy Start: 07-28-2019 End: 07-28-2019 Office consultation new/estab patient 80 min Joe Colón Work Phone: [facility] Preadmission Testing Comment on above: Preop examination (P rimary Dx); Personal history of colonic polyps; Morbid obesity (HCC); Coronary artery disease involving [place] coronary artery of [place] heart without angina pectoris; Other cirrhosis of liver (HCC); KELLY (obstructive sleep apnea); Essential hypertension; Hyperlipidemia, unspecified hyperlipidemia type Start: 07-28-2019 End: 07-28-2019 Subsequent hospital visit by physician Julia Anderson Work Phone: [facility] Imaging Services Ultrasound Comment on above: Epigastric pain; Other cirrhosis of liver (HCC); Personal history of colonic polyps; Gastrointestinal symptoms; Hematochezia; Hepatic encephalopathy (HCC) Start: 07-08-2019 End: 07-08-2019 Subsequent hospital visit by physician Hari Acosta Work Phone: [facility] Procedural Care Unit Start: 06-30-2019 End: 06-30-2019 Clinical Support Lupe Jeong [facility] Comment on above: Chest pain, unspecif ied type (Primary Dx); MCGOWAN (dyspnea on exertion) Start: 06-23-2019 End: 06-23-2019 Subsequent hospital visit by physician Giorgi De Los Santos Work Phone: [facility] Ortho Clinic Comment on above: Chest pain, unspecif ied type; MCGOWAN (dyspnea on exertion); ASHD (arteriosclerotic heart disease) Start: 06-23-2019 End: 06-23-2019 Office outpatient visit 25 minutes Giorgi De Los Santos Work Phone: [facility] Comment on above: Chest pain, unspecif ied type (Primary Dx); MCGOWAN (dyspnea on exertion); ASHD (arteriosclerotic heart disease) Start: 05-02-2019 End: 05-02-2019 Subsequent hospital visit by physician Aleida Leal Work Phone: [facility] CT Scan Comment on above: Stomach ache Start: 03-01-2019 End: 03-01-2019 Documentation procedure Ariella L [facility] Start: 08-04-2018 End: 08-04-2018 Emergency department patient visit Adam Lyn Facility:[place] Start: 07-19-2018 Patient encounter procedure Leticia Sylvester Facility:[place] Start: 07-19-2018 End: 07-19-2018 Patient encounter Leticia Sylvester Work Phone: [facility] Start: 06-25-2018 Patient encounter procedure Sondra To Facility:[place] Start: 06-25-2018 End: 06-25-2018 Patient encounter Sondra To Work Phone: [facility] Start: 04-26-2018 End: 04-27-2018 Emergency department patient visit Charles Russell Facility:[facility] Start: 11-26-2017 Patient encounter procedure Valentino Adkins Facility:[facility] Start: 11-26-2017 End: 11-26-2017 Ambulatory Valentino Kadie Adkins Work Phone: [facility] Procedures Date Procedure Procedure Detail Performing Clinician Start: 03-22-2025 X-ray of chest, PA a nd lateral views Dr. Leticia Sylvester MD Work Phone: Start: 03-22-[address] Leticia Sylvester MD Work Phone: Start: 03-10-[address] Leticia marcelino MD Work Phone: Start: 01-19-2025 Plain X-ray abdomen Dr. Leticia Sylvester MD Work Phone: Start: 01-17-2025 Plain X-ray abdomen Dr. Leticia Sylvester MD Work Phone: Start: 01-05-[address] Leticia marcelino MD Work Phone: Comment on above: Test Ordered: [id number] Enhanced Liver Fibrosis (ELF)ELF(TM) Score 11.03 [H ] BN Reference Range: <9.80ELF(TM) Score Interpretation:Risk cut-offs to assess the likelihood of progressionto cirrhosis and liver-related clinical events within3.9 years following baseline ELF score (IQR: 14.0-22.4months)*: Lower risk < 9.80 Mid risk 9.80 - 11.29 Higher risk >11.29Note: The ELF(TM) Score is a unitless numerical value.*Julio Cesar SA, Randy SEQUEDA, Chiquis T, et al. Selonsertibfor patients with bridging fibrosis or compensatedcirrhosis due to SALINAS: Results from randomized phaseIII STELLAR trials. J Hepatol. 2020 Mar;73(1):26-39.Performed at: [facility] [employer] [id number] Director: Lona Chacon MD, Phone: [phone] at: [address] [id number] Director: Tj Lr PhD, Phone: [phone] Start: 01-05-2025 Hepatitis A virus an tibody, total measurement Dr. Leticia Sylvester MD Work Phone: Comment on above: Comment: The HAV tot al antibody assay detects both IgG andIgM but does not differentiate between them. A negativeresult suggests susceptibility to infection. A positiveresult could be due to vaccination, previously resolvedinfection or active infection. Testing for HAV IgM shouldbe performed if active HAV infection is suspected. Labcorpoffers profiles that will automatically reflex positive HAVtotal antibody results to IgM (e.g., panel #[id number] HAVAntibody w/ Rfx).Performed at: [facility] [employer] [id number] Director: Tj Lr PhD, Phone: [phone] Start: 01-05-2025 Hepatitis C antibody measurement Dr. Leticia Sylvester MD Work Phone: Comment on above: Reactive: Presumptiv e evidence of antibodies to HCV. Follow CDC recommendations for supplemental testing.Non-Reactive: Antibodies to HCV were not detected; does not exclude the possibility of exposure to HCVReactive Results are presumptive evidence of antibodies to HCV. Follow CDC recommendations for supplemental testing.Order confirmation testing: HCV Quant by PCR testing - HCVPCR #[id number] Non Reactive: < 0.8 Equivocal: >/= 0.8 to < 1.0 Reactive: >/= 1.0The CDC requires that a reactive/equivocal HCV antibody result be sent out for confirmation. HCV Quant by PCR testing. Start: 12-15-[address] Leticia Sylvester MD Work Phone: Start: 12-13-2024 Computerized ophthal gerardo imaging retina Alaina Peralta MD Work Phone: Start: 03-30-2024 Mammography Eduardo christian DO Work Phone: Start: 02-19-2024 Us abdominal real ti me w/image limited Jaime Holt [facility] Work Phone: Start: 02-19-2024 Liver elastography w /o imag w/i&r Jaime Holt APRNPETER [facility] Work Phone: Start: 01-27-2024 Alpha-fetoprotein serum Jaime Holt APRNPETER [facility] Work Phone: Start: 01-27-2024 Hepatic function panel Jaime Holt RECRUITING TEAM LEADPETER [facility] Work Phone: Start: 12-19-2023 Ct abdomen & pelvis w/o contrast material Dominique S [employer] PA-C Work Phone: Start: 12-19-2023 Albumin serum plasma /whole blood Dominique S Miles PA-C Work Phone: Start: 12-19-2023 Assay of ethanol Dominique S [employer] PA-C Work Phone: Start: 12-19-2023 Complete blood count with white cell differential, automated Dominique [employer] Work Phone: Start: 12-19-2023 Culture bacterial qu anttative colony count urine Dominique [employer] Work Phone: Start: 12-19-2023 Urinalysis, reagent strip without microscopy Dominique [employer] Work Phone: Start: 12-19-2023 Urine drug screening Ashutosh [employer] Work Phone: Start: 08-10-2023 Lipid 1996 panel - S jina or Plasma Alaina Peralta MD Work Phone: Start: 05-26-2023 Complete blood count with white cell differential, automated Giorgi Adan RECRUITING TEAM LEAD-TELEPHONE ASSEMBLER Work Phone: Start: 05-26-2023 Renal function panel Ro janna Bee MD Work Phone: Start: 05-25-2023 Comprehensive metabolic panel Giorgi Kentrell Loco RECRUITING TEAM LEAD-TELEPHONE ASSEMBLER Work Phone: Start: 05-24-2023 Comprehensive metabolic panel Giorgi Adan RECRUITING TEAM LEAD-TELEPHONE ASSEMBLER Work Phone: Start: 05-23-2023 Us retroperitoneal r eal time w/image complete Giorgi Adan RECRUITING TEAM LEAD-TELEPHONE ASSEMBLER Work Phone: Start: 05-23-2023 Comprehensive metabolic panel Giorgi Adan RECRUITING TEAM LEAD-TELEPHONE ASSEMBLER Work Phone: Start: 05-23-2023 Lipid panel Giorgi Adan RECRUITING TEAM LEAD-TELEPHONE ASSEMBLER Work Phone: Start: 05-23-2023 Lipid 1996 panel - S jina or Plasma Jose Eduardo Dumont MD Work Phone: Start: 05-22-2023 Assay of troponin quantitative Giorgi Pritchett Loco RECRUITING TEAM LEAD-TELEPHONE ASSEMBLER Work Phone: Start: 05-22-2023 Cultyp nuc acid amp prb cult/isolate ea orgnism Giorgi Cortesson RECRUITING TEAM LEAD-TELEPHONE ASSEMBLER Work Phone: Start: 05-22-2023 Ct head/brain w/o [...] Start: 05-22-2023 Assay of urine sodium S ingepito Kentrell Adan RECRUITING TEAM LEAD-TELEPHONE ASSEMBLER Work Phone: Start: 05-22-2023 Urnls dip stick/tabl et rgnt auto w/o microscopy Jose Eduardo Dumont MD Work Phone: Start: 02-16-2023 Albumin serum plasma /whole blood Vi Francis PA-C Work Phone: Start: 02-16-2023 Complete blood count with white cell differential, automated Vi Francis PA-C Work Phone: Start: 10-15-2022 Cystourethroscopy Av [...] by KRANTHI with probe detection Av Ellis RECRUITING TEAM LEAD-TELEPHONE ASSEMBLER Work Phone: Start: 07-28-2022 Ecg routine ecg w/le ast 12 lds trcg only w/o i&r Giacomo Mc MD Work Phone: Start: 04-23-2022 Alpha-fetoprotein serum Jaime Holt APRN-TELEPHONE ASSEMBLER Work Phone: Start: 04-23-2022 Hepatic function panel Jaime Holt APRN-TELEPHONE ASSEMBLER Work Phone: Start: 04-23-2022 Lipid 1996 panel - S jina or Plasma Eduardo Murcia DO Work Phone: Start: 01-31-2022 C-reactive protein Foreign Campos RECRUITING TEAM LEAD-TELEPHONE ASSEMBLER Work Phone: Start: 01-31-2022 Complete blood count with white cell differential, automated Flip Campos RECRUITING TEAM LEAD-TELEPHONE ASSEMBLER Work Phone: Start: 01-31-2022 Comprehensive metabolic panel Flip Campos RECRUITING TEAM LEAD-TELEPHONE ASSEMBLER Work Phone: Start: 01-30-2022 Urinalysis microscopic only Flip Campos RECRUITING TEAM LEAD-TELEPHONE ASSEMBLER Work Phone: Start: 01-30-2022 Urinalysis, reagent strip without microscopy Flip Campos RECRUITING TEAM LEAD-TELEPHONE ASSEMBLER Work Phone: Start: 01-30-2022 Urine drug screening Shawanda Campos RECRUITING TEAM LEAD-TELEPHONE ASSEMBLER Work Phone: Start: 01-30-2022 Ct head/brain w/o co ntrast material Flip Campos RECRUITING TEAM LEAD-TELEPHONE ASSEMBLER Work Phone: Start: 01-30-2022 Myocardial spect mul tiple studies Giorgi Kentrell Adan RECRUITING TEAM LEAD-TELEPHONE ASSEMBLER Work Phone: Start: 01-30-2022 C-reactive protein Foreign Pritchett Grund RECRUITING TEAM LEAD-TELEPHONE ASSEMBLER Work Phone: Start: 01-30-2022 Complete blood count with white cell differential, automated Flip Campos RECRUITING TEAM LEAD-TELEPHONE ASSEMBLER Work Phone: Start: 01-30-2022 Comprehensive metabolic panel Flip Campos RECRUITING TEAM LEAD-TELEPHONE ASSEMBLER Work Phone: Start: 01-29-2022 Ecg routine ecg w/le ast 12 lds trcg only w/o i&r Isreal Brush PA-C Work Phone: Start: 01-29-2022 Ecg routine ecg w/le ast 12 lds trcg only w/o i&r Isreal Brush PA-C Work Phone: Start: 01-29-2022 Assay of troponin quantitative Isreal Brush PA-C Work Phone: Start: 01-29-2022 C-reactive protein Foreign Taound RECRUITING TEAM LEAD-TELEPHONE ASSEMBLER Work Phone: Start: 01-29-2022 End: 01-29-2022 Comprehensive metabolic panel Flip Pritchett Andria newelld RECRUITING TEAM LEAD-TELEPHONE ASSEMBLER Work Phone: Start: 01-28-2022 TTE w or wo fol wcon,Doppler Flip D Grund RECRUITING TEAM LEAD-TELEPHONE ASSEMBLER Work Phone: Start: 01-28-2022 C-reactive protein Foreign Campos RECRUITING TEAM LEAD-TELEPHONE ASSEMBLER Work Phone: Start: 01-28-2022 Potassium serum plas ma/whole blood Av Bertrand MD Work Phone: Start: 01-28-2022 Blood count complete auto&auto difrntl wbc Av Bertrand MD Work Phone: Start: 01-27-2022 Assay of troponin quantitative Michaela Barragan PA-C Work Phone: Start: 01-27-2022 Ct head/brain w/o co ntrast material Michaela Barragan PA-C Work Phone: Start: 01-27-2022 End: 01-27-2022 Urinalysis microscopic only Michaela schultz PA-C Work Phone: Start: 01-27-2022 Urinalysis, reagent strip without microscopy Michaela Barragan PA-C Work Phone: Start: 01-27-2022 Sars-cov-2 detection by dna/rna Mcihaela Barragan PA-[employer] Work Phone: Start: 01-27-2022 Radiologic exam ches [...] metabolic 2000 panel - Serum or Plasma Lizbet Pack Work Phone: Start: 12-01-2020 Complete blood count with white cell differential, automated Kayland Sirena Work Phone: Start: 12-01-2020 Complete blood count with white cell differential, manual Lizbet Pack Work Phone: Start: 11-30-2020 Complete blood count with white cell differential, automated Lizbet Pack Work Phone: Start: 11-30-2020 Complete blood count with white cell differential, manual Lizbet Pack Work Phone: Start: 11-30-2020 Basic metabolic 2000 panel - Serum or Plasma Lizbet Pack Work Phone: Start: 11-29-2020 Dup-scan xtr veins unilateral/limited study Dianelys Francis Work Phone: Start: 11-29-2020 Potassium [Moles/vol ume] in Serum or Plasma Eli Morataya Work Phone: Start: 11-29-2020 Basic metabolic 2000 panel - Serum or Plasma Lizbet Pack Work Phone: Start: 11-29-2020 Complete blood count with white cell differential, automated Lizbet Pack Work Phone: Start: 11-29-2020 Complete blood count with white cell differential, manual Lizbet Pack Work Phone: Start: 11-28-2020 COVID-19/INFLUENZA A ,B MOLECULAR Adam Lyn Work Phone: Start: 11-28-2020 Bacteria identified in Blood by Culture Adam Lyn Work Phone: Start: 11-28-2020 X-ray of right foot Norberto tony Lyn Work Phone: Start: 11-28-2020 Complete blood count with white cell differential, automated Adam Lyn Work Phone: Start: 11-28-2020 Complete blood count with white cell differential, manual Adam Lyn Work Phone: Start: 11-28-2020 Lactate [Moles/volum e] in Serum or Plasma Adam Lyn Work Phone: Start: 11-28-2020 Basic metabolic 2000 panel - Serum or Plasma Adam Lyn Work Phone: Start: 11-19-2020 Dup-scan xtr veins c omplete bilateral study Digna Donatomerman Work Phone: Start: 11-14-2020 XR OR FLUOROSCOPY TIME Digna Donatomerman Work Phone: Start: 11-01-2019 Fibrin dgradj produc ts d-dimer quantitative Cecil Rings Work Phone: Start: 11-01-2019 Assay of troponin quantitative Cecil Rings Work Phone: Start: 11-01-2019 Iaadiadoo influenza Elodia hakar Rings Work Phone: Start: 11-01-2019 Natriuretic peptide Elodia hakar Rings Work Phone: Start: 11-01-2019 Radex shoulder compl ete minimum 2 views Cecil Rings Work Phone: Start: 11-01-2019 12 lead ECG Cecil R ings Work Phone: Start: 11-01-2019 Blood count complete auto&auto difrntl wbc Cecil Rings Work Phone: Start: 11-01-2019 Radiologic exam ches t single view Cecil Rings Work Phone: Start: 11-01-2019 Basic metabolic pane l calcium ionized Cecil Rings Work Phone: Start: 11-01-2019 POC CBC AND DIFFERENTIAL Cecil Rings Work Phone: Start: 09-20-2019 CT angiography of pu lmonary artery Giorgi De Los Santos Work Phone: Start: 09-05-2019 Echocardiography Taylor De Los Santos Work Phone: Start: 07-29-2019 End: 07-29-2019 Colonoscopy Joe Colón Work Phone: Start: 07-29-2019 Endoscopy of esophagus Joe PalomoAdarsh Johnnygalenteresa Work Phone: Start: 07-28-2019 Complete blood count (hemogram) panel - Blood by Automated count Joe PalomoAdarsh Johnnygalenteresa Work Phone: Start: 07-28-2019 Creatinine [Mass/vol ume] in Serum or Plasma Joe Neisha Johnnygalenteresa Work Phone: Start: 07-28-2019 Potassium [Moles/vol ume] in Serum or Plasma Joe Neisha Johnnygalenteresa Work Phone: Start: 07-28-2019 US scan of upper abdomen Julia Francoatia Work Phone: Start: 07-08-2019 Cardiac catheterization Giorgi Leland Magali Work Phone: Start: 06-24-2019 12 lead ECG Giorgi Jaquelin mcfadden Magali Work Phone: Start: 06-23-2019 Standard chest X-ray St jerad De Los Santos Work Phone: Start: 05-02-2019 Ct abdomen & pelvis w/o contrast material Aleida Leal Work Phone: Start: 07-19-2018 End: 07-19-2018 MHS - CPK, TOTAL Leticia Sylvester Work Phone: Start: 07-19-2018 End: 07-19-2018 Myoglobin Leticia Sylvester Work Phone: Start: 06-25-2018 End: 06-25-2018 25 hydroxy includes fractions if performed Sondra Yousuf Work Phone: Start: 06-25-2018 End: 06-25-2018 Alanine [...] MHS - VITAMIN B12 AND FOLATES Sondra bernabe Work Phone: Start: 06-25-2018 End: 06-25-2018 Thyrotropin [Units/volume] in Serum or Plasma by Detection limit <= 0.005 mIU/L Sondra To Work Phone: Start: 06-25-2015 Karla Ocampo MD Work Phone: Plan of Treatment Date Care Activity Detail Author Start: 2036 RSV Vaccine (1 - 1-dose 75+ series) RSV Vaccine (1 - 1-dose 75+ series) [facility] Start: 02-01-2034 DTaP/Tdap/Td Vaccines (2 - Td or Tdap) DTaP/Tdap/Td Vaccines (2 - Td or Tdap) [facility] Start: 02-01-2034 Tetanus vaccination [facility] Start: 02-01-2034 Urine microalbumin profile DTaP,Tdap,Td Vaccine (2 - T d or Tdap) [facility] Start: 08-11-2032 Screening for malignant neoplasm of colon [facility] Start: 07-29-2029 Screening for malignant neoplasm of colon [facility] Start: 08-10-2028 Cholesterol [Mass/volume] in Serum or Plasma Cholesterol [facility] Start: 08-10-2028 Lipid panel [facility] Start: 05-23-2028 Lipid panel LIPID SCREENING [facility] Start: 06-24-2027 Diabetes Screening Diabetes Screening [facility] Start: 04-23-2027 Cholesterol [Mass/volume] in Serum or Plasma Cholesterol [facility] Start: 04-23-2027 Lipid panel Lipid Panel [facility] Start: 02-25-2027 Diabetes mellitus screening Diabetes Screening [facility] Start: 08-10-2026 Diabetes mellitus screening Diabetes Screening [facility] Start: 2026 Pneumococcal Vaccine: Ped or At-Risk (2 of 2 - PPSV23) Pneumococcal Vaccine: Ped or At-Risk (2 of 2 - PPSV23) [facility] Start: 01-16-2026 Fasting lipid profile LIPID SCREENING [facility] Start: 01-16-2026 Lipid panel LIPID SCREENING [facility] Start: 08-11-2025 Screening for malignant neoplasm of colon [facility] Start: 07-13-2025 Creatinine measurement Basic Metabolic Panel [facility] Start: 06-25-2025 Screening for malignant neoplasm of colon [facility] Start: 06-24-2025 Creatinine measurement Basic Metabolic Panel [facility] Start: 06-24-2025 Urine screening for protein eGFR - Kidney Disease [facility] Start: 06-06-2025 End: 06-06-2025 Patient encounter procedure 06/06/2025 2:30 PM EDT Office Visit [facility] [address] [place] [address] Alaina Peralta MD [address] [place] [address] Vitellifrom lesion Ophthalmology Comment on above: Vitellifrom lesion Start: 05-22-2025 Influenza vaccination Influenza Vaccine (Season Ended) [facility] Start: 03-30-2025 Screening for malignant neoplasm of breast Mammogram [facility] Start: 03-28-2025 End: 03-28-2025 Patient encounter procedure 03/28/2025 2:15 PM EDT Office Visit [facility] [address] [place] [address] Yajaira Canales, TELEPHONE ASSEMBLER [address] [place] [phone] [facility] Start: 03-24-2025 Serum inorganic phosphate measurement [facility] Start: 03-23-2025 [facility] Start: 03-23-2025 NM Heart Views W stress and W radionuclide IV [facility] Start: 03-23-2025 Nuclear Stress Test - Chemical Nuclear Stress Test - Chemical [facility] Start: 03-23-2025 Serum inorganic phosphate measurement [facility] Start: 03-23-2025 Thyroid stimulating hormone measurement [facility] Start: 03-22-2025 Assessment of risk of venous thromboembolism [facility] Start: 03-22-2025 Care regimes management [facility] Start: 03-22-2025 Catheterization of vein [facility] Start: 03-22-2025 Documentation procedure [facility] Start: 03-22-2025 Incentive spirometry [facility] Start: 03-22-2025 Insertion of catheter into peripheral vein [facility] Start: 03-22-2025 Measuring intake and output [facility] Start: 03-22-2025 Notification of physician [facility] Start: 03-22-2025 Oxygen therapy [facility] Start: 03-22-2025 Providing care according to standard [facility] Start: 03-22-2025 Provision of activity privileges [facility] Start: 03-22-2025 Referral to occupational therapist [facility] Start: 03-22-2025 Referral to service [facility] Start: 03-22-2025 Tobacco use cessation education [facility] Start: 03-22-2025 End: 03-22-2025 [facility] Start: 03-22-2025 End: 03-22-2025 Electrocardiographic procedure [facility] Start: 03-22-2025 Computed tomography of abdomen and pelvis with contrast CT Abd/Pelvis W/WO Contrast [facility] Start: 03-22-2025 Urinalysis complete panel - Urine [facility] Start: 03-22-2025 Verification routine [facility] Start: 03-22-2025 Admission procedure [facility] Start: 03-22-2025 [facility] Start: 03-10-2025 Colonoscopy w/biopsy single/multiple COLONOSCOPY AND BIOPSY [facility] Start: 03-10-2025 Colsc flx w/rmvl of tumor polyp lesion snare tq COLONOSCOPY W/LESION REMOVAL [facility] Start: 03-10-2025 Egd transoral biopsy single/multiple EGD BIOPSY SINGLE/MULTIPLE [facility] Start: 03-10-2025 Hemorrhoidectomy internal rubber band ligations LIGATION OF HEMORRHOID(S) [facility] Start: 03-10-2025 Patient discharge [facility] Start: 02-01-2025 End: 02-01-2026 25-hydroxyvitamin D3 [Mass/volume] in Serum or Plasma Vitamin D 25-Hydroxy,Total (for eval of Vitamin D levels) Lab Routine Vitamin D deficiency Expected: 02/01/2025 (Approximate), Expires: 02/01/2026 [facility] Work Phone: Comment on above: Expected: 02/01/2025 (Approximate), Expi res: 02/01/2026 Start: 02-01-2025 End: 02-01-2026 CBC W Auto Differential panel - Blood [facility] Service Area Work Phone: Comment on above: Expected: 02/01/2025 (Approximate), Expi res: 11/04/2025 Expected: 02/01/2025 (Approximate), Expires: 02/01/2026 Start: 02-01-2025 End: 02-01-2026 Comprehensive metabolic 2000 panel - Serum or Plasma [facility] Work Phone: Comment on above: Expected: 02/01/2025 (Approximate), Expi res: 11/04/2025 Expected: 02/01/2025 (Approximate), Expires: 02/01/2026 Start: 02-01-2025 End: 02-01-2026 Hemoglobin A1c/Hemoglobin.total in Blood [facility] Work Phone: Comment on above: Expected: 02/01/2025 (Approximate), Expi res: 11/04/2025 Expected: 02/01/2025 (Approximate), Expires: 02/01/2026 Start: 02-01-2025 End: 02-01-2026 Thyrotropin [Units/volume] in Serum or Plasma TSH Lab Routine Other fatigue Expected: 02/01/2025 (Approximate), Expires: 02/01/2026 [facility] Work Phone: Comment on above: Expected: 02/01/2025 (Approximate), Expi res: 02/01/2026 Start: 01-26-2025 Creatinine measurement Basic Metabolic Panel [facility] Start: 12-08-2024 Patient referral [facility] Work Phone: Start: 08-20-2024 Liver Imaging (Hepatocellular Carcinoma Screening) Liver Imaging (Hepatocellular Carcinoma Screening) [facility] Start: 08-15-2024 End: 08-15-2024 Telemedicine consultation with patient 08/15/2024 2:30 PM EST Telemedicine [facility] [address] [place] [address] Jaime Holt APRN-TELEPHONE ASSEMBLER [address] [facility] [place] [address] [facility] Start: 08-08-2024 End: 08-08-2024 Patient encounter procedure 08/08/2024 2:30 PM EST Office Visit [facility] [address] [place] [phone] Marquise Greenwood MD [address] [place] [phone] [facility] Start: 07-29-2024 Fluid sample AFP level Alpha Fetoprotein (Hepatocellular Carcinoma Screening) [facility] Start: 07-26-2024 End: 07-26-2024 Patient encounter procedure 07/26/2024 1:00 PM EST Office Visit [facility] [address] [place] [address] Jaime Holt APRN-TELEPHONE ASSEMBLER [address] [facility] [place] [address] [facility] Start: 06-06-2024 Creatinine measurement Basic Metabolic Panel [facility] Start: 05-26-2024 Potassium [Moles/volume] in Serum or Plasma POTASSIUM [facility] Start: 05-22-2024 COVID-19 Vaccine ( season) COVID-19 Vaccine ( season) [facility] Start: 05-22-2024 Influenza vaccination Influenza Vaccine (#1) [facility] Start: 02-26-2024 End: 02-25-2025 25-hydroxyvitamin D3 [Mass/volume] in Serum or Plasma Vitamin D 25-Hydroxy,Total (for eval of Vitamin D levels) Lab Routine Vitamin D deficiency Expected: 02/26/2024 (Approximate), Expires: 02/25/2025 [facility] Work Phone: Comment on above: Expected: 02/26/2024 (Approximate), Expi res: 02/25/2025 Start: 02-26-2024 End: 02-25-2025 Basic metabolic 2000 panel - Serum or Plasma Basic Metabolic Panel Lab Routine Hyperglycemia Expected: 02/26/2024 (Approximate), Expires: 02/25/2025 [facility] Work Phone: Comment on above: Expected: 02/26/2024 (Approximate), Expi res: 02/25/2025 Start: 02-26-2024 End: 02-25-2025 Hemoglobin A1c/Hemoglobin.total in Blood Hemoglobin A1C Lab Routine Hyperglycemia Expected: 02/26/2024 (Approximate), Expires: 02/25/2025 [facility] Work Phone: Comment on above: Expected: 02/26/2024 (Approximate), Expi res: 02/25/2025 Start: 02-26-2024 End: 02-25-2025 Home sleep apnea test (HSAT) Home sleep apnea test (HS AT) Sleep Center Routine KELLY (obstructive sleep apnea) Expected: 02/26/2024 (Approximate), Expires: 02/25/2025 [facility] Service Area Work Phone: Comment on above: Expected: 02/26/2024 (Approximate), Expi res: 02/25/2025 Start: 02-19-2024 End: 02-19-2024 Patient encounter procedure [facility] Start: 02-17-2024 Potassium [Moles/volume] in Serum or Plasma POTASSIUM [facility] Start: 01-27-2024 End: 01-26-2025 US Abdomen RUQ US LIVER/GALL BLADDER/PANCREAS Imaging Routine Hepatic cirrhosis, unspecified hepatic cirrhosis type, unspecified whether ascites present (HCC) Expected: 01/27/2024, Expires: 01/26/2025 [facility] [employer] [facility] Work Phone: Comment on above: Expected: 01/27/2024, Expires: Start: 10-12-2023 End: 10-12-2023 Patient encounter procedure 10/12/2023 1:30 PM EST Office Visit [facility] [address] [place] [phone] Marquise Greenwood MD [address] [place] [phone] [facility] Start: 09-01-2023 Potassium [Moles/volume] in Serum or Plasma POTASSIUM [facility] Start: 08-11-2023 Screening for malignant neoplasm of colon [facility] Start: 08-06-2023 End: 08-06-2023 Social Work 08/06/2023 2:00 PM EST Social Work [facility] [address] [place] [address] Hyacinth Reeves LISW [address] [place] [phone] [facility] Start: 05-22-2023 COVID-19 Vaccine ( season) COVID-19 Vaccine ( season) [facility] Start: 05-22-2023 Influenza vaccination Sequential Influenza Vaccine (#1) [facility] Start: 04-23-2023 End: 04-23-2023 Basic metabolic 2000 panel - Serum or Plasma [facility] Comment on above: 1 Occurrences starting 04/23/2022 until 04/23/2023 Start: 04-23-2023 Creatinine measurement Basic Metabolic Panel [facility] Start: 01-31-2023 Basic metabolic 2000 panel - Serum or Plasma Basic Metabolic Panel [facility] Start: 01-13-2023 End: 01-13-2023 Patient encounter procedure 01/13/2023 Office Visit Urology Lisa Gill CNP [address] [address] [facility] Start: 12-01-2022 Cholesterol [Mass/volume] in Serum or Plasma Cholesterol [facility] Start: 11-19-2022 Annual wellness visit Annual Wellness Visit (G0438) [facility] Start: 10-24-2022 Fluid sample AFP level Alpha Fetoprotein (Hepatocellular Carcinoma Screening) [facility] Start: 10-15-2022 End: 10-15-2022 Patient encounter procedure 10/15/2022 Office Visit Urology Av Delgado MD [address] [facility] 1[address] [place] [address] [facility] Start: 10-02-2022 End: 10-01-2023 CT Abdomen and Pelvis CT UROGRAM ABDOMEN/PELVIS W/ CT POST PROCESSING Imaging Routine Other microscopic hematuria Urinary frequency Expected: 10/02/2022 (Approximate), Expires: 10/01/2023 [facility] Comment on above: Expected: 10/02/2022 (Approximate), Expi res: 10/01/2023 Start: 09-30-2022 End: 09-30-2022 Patient encounter procedure 09/30/2022 Appointment Radiology [facility] Start: 08-19-2022 End: 08-19-2022 Telemedicine consultation with patient 08/19/2022 Telemedicine Gastroenterology Eusebia Jones, AWILDA-TELEPHONE ASSEMBLER [address] [facility] [place] [address] [facility] Start: 08-19-2022 End: 08-19-2023 NM Stomach Views for gastric emptying W radionuclide PO NM GASTRIC EMPTYING STUDY Imaging Routine Early satiety Expected: 08/19/2022, Expires: 08/19/2023 [facility] [employer] [facility] Work Phone: Comment on above: Expected: 08/19/2022, Expires: Start: 08-11-2022 End: 08-11-2022 Admission to same day surgery center 08/11/2022 Surgery Gastroenterology Jennifer Khoury MD [address] [place] [id number] ESOPHAGOGASTRODUODENOSCOPY AND COLONOSCOPY, GENERAL ANESTHESIA [facility] Comment on above: ESOPHAGOGASTRODUODENOSCOPY AND COLONOSCO PY, GENERAL ANESTHESIA Start: 08-11-2022 End: 08-11-2022 ESOPHAGOGASTRODUODENOSCOPY AND COLONOSCOPY, GENERAL ANESTHESIA [facility] Start: 08-11-2022 Subsequent hospital visit by physician 08/11/2022 Hospital Encounter Gastroenterology Jennifer Khoury MD [address] [place] [address] [facility] Start: 08-08-2022 End: 08-08-2022 Nursing evaluation of patient and report 08/08/2022 Nurse Visit Express [facility] Start: 08-06-2022 End: 09-05-2022 SARS-CoV-2 (COVID-19) RNA [Presence] in Unspecified specimen by KRANTHI with probe detection NOVEL CORONAVIRUS (COVID-19) Lab Routine Encounter for laboratory testing for severe acute respiratory syndrome coronavirus 2 (SARS-CoV-2) Expected: 08/06/2022, Expires: 09/05/2022 [facility] [employer] [facility] Work Phone: Comment on above: Expected: 08/06/2022, Expires: Start: 08-04-2022 End: 09-03-2022 SARS-CoV-2 (COVID-19) RNA [Presence] in Unspecified specimen by KRANTHI with probe detection NOVEL CORONAVIRUS (COVID-19) Lab Routine Encounter for laboratory testing for severe acute respiratory syndrome coronavirus 2 (SARS-CoV-2) Expected: 08/04/2022, Expires: 09/03/2022 [facility] [employer] [facility] Work Phone: Comment on above: Expected: 08/04/2022, Expires: 2 Start: 08-01-2022 End: 08-31-2022 SARS-CoV-2 (COVID-19) RNA [Presence] in Unspecified specimen by KRANTHI with probe detection NOVEL CORONAVIRUS (COVID-19) Lab Routine Encounter for laboratory testing for severe acute respiratory syndrome coronavirus 2 (SARS-CoV-2) Expected: 08/01/2022, Expires: 08/31/2022 [facility] [employer] [facility] Work Phone: Comment on above: Expected: 08/01/2022, Expires: 2 Start: 07-28-2022 End: 07-28-2022 Patient encounter procedure 07/28/2022 Office Visit Presurgical Evaluation [facility] Pre Surgical Evaluation Start: 06-21-2022 Influenza vaccination Influenza Vaccine (#1) [facility] Start: 05-21-2022 End: 05-21-2022 Telemedicine consultation with patient 05/21/2022 Telemedicine Gastroenterology Jaime Holt APRN-TELEPHONE ASSEMBLER [address] [facility] [place] [address] [facility] Start: 2022 End: 2022 Professional / ancillary services management 2022 Ancillary Procedure Radiology [facility] CT Scan Start: 04-23-2022 End: 04-23-2023 CT Abdomen and Pelvis W contrast IV CT ABDOMEN/PELVIS W/ CONTRAST Imaging Routine Hepatic cirrhosis, unspecified hepatic cirrhosis type, unspecified whether ascites present (HCC) Abdominal pain, unspecified abdominal location Expected: 04/23/2022, Expires: 04/23/2023 [facility] Comment on above: Expected: 04/23/2022, Expires: 3 Start: 04-23-2022 End: 04-23-2022 Patient encounter procedure 04/23/2022 Office Visit Gastroenterology Eusebia Jones, AWILDA-TELEPHONE ASSEMBLER [address] [facility] [place] [address] Arrived [facility] Comment on above: Arrived Start: 04-23-2022 End: 08-23-2022 SARS-CoV-2 (COVID-19) RNA [Presence] in Unspecified specimen by KRANTHI with probe detection NOVEL CORONAVIRUS (COVID-19) Lab Routine Encounter for laboratory testing for severe acute respiratory syndrome coronavirus 2 (SARS-CoV-2) Expected: 04/23/2022, Expires: 08/23/2022 [facility] Work Phone: Comment on above: Expected: 04/23/2022, Expires: Start: 11-19-2021 Welcome to Medicare Visit (G0402) Welcome to Medicare Visit (G0402) [facility] Start: 11-01-2021 Basic metabolic 2000 panel - Serum or Plasma Basic Metabolic Panel [facility] Start: 05-22-2021 Influenza vaccination Sequential Influenza Vaccine (#1) [facility] Start: 2021 Respiratory Syncytial Virus Immunization: Risk, 60-74 Risk, or 75+ (1 - Risk 60-74 years 1-dose series) Respiratory Syncytial Virus Immunization: Risk, 60-74 Risk, or 75+ (1 - Risk 60-74 years 1-dose series) [facility] Start: 2021 RSV High Risk: (Elderly (60+) or Population) (1 - Risk 60-74 years 1-dose series) RSV High Risk: (Elderly (60+) or Population) (1 - Risk 60-74 years 1-dose series) [facility] Start: 2021 RSV patients and/or patients aged 60+ years (1 - 1-dose 60+ series) RSV patients and/or patients aged 60+ years (1 - 1-dose 60+ series) [facility] Start: 2021 RSV vaccine (adult) (1 - Risk 60-74 years 1-dose series) RSV vaccine (adult) (1 - Risk 60-74 years 1-dose series) [facility] Start: 2021 RSV vaccine (optional 60+ years) RSV vaccine (optional 60+ years) [facility] Start: 01-14-2021 End: 01-14-2021 Appointment 01/14/2021 Appointment Home Health Services Ashley Mcgrath RN [facility] Start: 01-10-2021 End: 01-10-2021 Appointment 01/10/2021 Appointment Home Health Services Ashley Mcgrath RN [facility] Start: 01-09-2021 End: 01-09-2021 Home Care Visit [facility] Start: 01-03-2021 End: 01-03-2021 Home Care Visit 01/03/2021 Home Care Visit Home Health Services Ashley Mcgrath RN [facility] Start: 01-02-2021 End: 01-02-2021 Home Care Visit [facility] Start: 01-02-2021 End: 01-02-2021 Home Care Visit 01/02/2021 Home Care Visit Home Health Services Liliam Whiting PSA [facility] Start: 12-28-2020 End: 12-28-2020 Home Care Visit 12/28/2020 Home Care Visit Home Health Services Valarie Blackmon OT [facility] Start: 12-27-2020 End: 12-27-2020 Home Care Visit 12/27/2020 Home Care Visit Home Health Services Ashley Mcgrath RN [facility] Start: 12-26-2020 End: 12-26-2020 Home Care Visit [facility] Start: 12-20-2020 End: 12-20-2020 Home Care Visit 12/20/2020 Home Care Visit Home Health Services Ashley Mcgrath RN [facility] Start: 12-19-2020 End: 12-19-2020 Home Care Visit [facility] Start: 12-13-2020 End: 12-13-2020 Home Care Visit [facility] Start: 12-12-2020 End: 12-12-2020 Home Care Visit [facility] Start: 12-06-2020 End: 12-06-2020 Home Care Visit 12/06/2020 Home Care Visit Home Health Services Annalee Dyson PT [facility] Start: 12-06-2020 End: 12-06-2020 Home Care Visit 12/06/2020 Home Care Visit Home Health Services Annalee Dyson, BLAISE [facility] Start: 12-06-2020 End: 12-06-2020 Home Care Visit 12/06/2020 Home Care Visit Home Health Services Ashley Mcgrath RN [facility] Start: 12-05-2020 End: 12-05-2020 Home Care Visit 12/05/2020 Home Care Visit Home Health Services Valarie Blackmon OT [facility] Start: 12-05-2020 End: 12-05-2020 Home Care Visit [facility] Start: 12-03-2020 End: 12-03-2020 Home Care Visit 12/03/2020 Home Care Visit Home Health Services Gisele Cervantes OTA [facility] Start: 11-30-2020 End: 11-30-2020 Home Care Visit 11/30/2020 Home Care Visit Home Health Services Annalee Dyson, BLAISE [facility] Start: 11-29-2020 End: 11-29-2020 Home Care Visit [facility] Start: 11-28-2020 End: 11-28-2020 Home Care Visit [facility] Start: 11-27-2020 End: 11-27-2020 Home Care Visit 11/27/2020 Home Care Visit Home Health Services Ashley Mcgrath RN [facility] Start: 11-26-2020 End: 11-26-2020 Home Care Visit [facility] Start: 11-23-2020 End: 11-23-2020 Home Care Visit [facility] Start: 11-22-2020 End: 11-22-2020 Home Care Visit [facility] Start: 11-20-2020 End: 11-20-2020 Home Care Visit 11/20/2020 Home Care Visit Home Health Services Marcello Lewis PTA [facility] Start: 11-16-2020 End: 11-16-2020 Home Care Visit 11/16/2020 Home Care Visit Home Health Services Annalee Dyson, BLAISE [facility] Start: 11-14-2020 End: 11-14-2020 Hospital Encounter [facility] Comment on above: EXCISION HEEL SPUR RIGHT FOOT Start: 11-10-2020 End: 11-10-2020 Office Visit 11/10/2020 Office Visit Lab Digna Reagan, KEVIN [address] [place] [address] [phone] [facility] Start: 11-01-2020 End: 11-01-2020 Office Visit 11/01/2020 Office Visit Pre-Admission Testing [facility] Preadmission Testing Start: 10-28-2020 Hepatocellular Carcinoma Screening Hepatocellular Carcinoma Screening [facility] Start: 10-28-2020 Liver Imaging (Hepatocellular Carcinoma Screening) Liver Imaging (Hepatocellular Carcinoma Screening) [facility] Start: 05-22-2020 Influenza vaccination given Sequential Influenza Vacci ne (#1) [facility] Start: 09-06-2019 End: 09-06-2019 Appointment 09/06/2019 Appointment Radiology Giorgi De Los Santos MD [address] [address] [phone] [facility] CT Scan Start: 09-05-2019 End: 09-05-2019 Appointment 09/05/2019 Appointment Cardiology Giorgi De Los Santos MD [address] [place] [id number] [phone] [facility] Start: 08-22-2019 End: 08-22-2019 Office Visit 08/22/2019 Office Visit Cardiology Giorgi De Los Santos MD [address] [place] [phone] [facility] Start: 07-29-2019 End: 07-29-2019 Hospital Encounter [facility] Endoscopy Comment on above: COLONOSCOPY WITH ANESTHESIA Start: 05-22-2019 Influenza vaccination given [facility] Start: 05-02-2019 End: 05-02-2019 Office Visit 05/02/2019 Office Visit Dermatology NafisaMisael meza MD [address] [place] [address] [phone] [facility] Start: 12-15-2018 Screening for malignant neoplasm of breast Mammography [facility] Start: 05-22-2018 Influenza vaccination SEQUENTIAL INFLUENZA VACCINE (#1) [facility] Start: 05-22-2017 Influenza vaccination SEQUENTIAL INFLUENZA VACCINE (#1) [facility] Start: 07-04-2015 Pneumococcal vaccination [facility] Start: 07-04-2015 Pneumococcal Vaccine: 50+ (2 of 2 - PCV) Pneumococcal Vaccine: 50+ (2 of 2 - PCV) [facility] Start: 07-04-2015 Pneumococcal Vaccine: Age 50+ (2 of 2 - PCV) Pneumococcal Vaccine: Age 50+ (2 of 2 - PCV) [facility] Start: 07-04-2015 Pneumococcal Vaccine: Ped or At-Risk (2 - PCV) Pneumococcal Vaccine: Ped or At-Risk (2 - PCV) [facility] Start: 07-04-2015 Pneumococcal Vaccine: Ped or At-Risk (2 of 2 - PCV) Pneumococcal Vaccine: Ped or At-Risk (2 of 2 - PCV) [facility] Start: 07-04-2015 Pneumococcal Vaccine: Pediatrics (0 to 5 Years) and At-Risk Patients (6 to 64 Years) (2 of 2 - PCV) Pneumococcal Vaccine: Pediatrics (0 to 5 Years) and At-Risk Patients (6 to 64 Years) (2 of 2 - PCV) [facility] Start: 2011 Administration of herpes zoster vaccine Zoster Vaccines (1 of 2) [facility] Start: 2011 Measurement of occult blood in single stool specimen FIT [facility] Start: 2011 Screening for malignant neoplasm of colon [facility] Start: 2011 Zoster vaccine hzv live for subcutaneous use ZOSTER (SHINGLES) VACCINE (1 of 2) [facility] Start: 2006 Colonoscopy COLORECTAL CANCER SCREENING DISCUSSION [facility] Start: 2006 Screening for malignant neoplasm of colon [facility] Start: 2001 Screening for malignant neoplasm of breast [facility] Start: 2001 Screening mammography [facility] Start: 1982 Screening for malignant neoplasm of cervix [facility] Start: 1980 Third diphtheria, tetanus and acellular pertussis (DTaP) vaccination TDAP (ADULT) [facility] Start: 1979 Anxiety Screening Anxiety Screening [facility] Start: 1979 Depression Screening Depression Screening [facility] Start: 1979 Hepatitis C antibody, confirmatory test Hepatitis C Screening [facility] Start: 1979 Hepatitis C screening Hepatitis C Screening [facility] Start: 1979 HIV screening HIV Screening [facility] Start: 1979 Tetanus + diphtheria + acellular pertussis vaccine (product) Tdap Booster [facility] Start: 1979 Tetanus vaccination TETANUS [facility] Start: 1977 COVID-19 Vaccine (1 of 2) COVID-19 Vaccine (1 of 2) [facility] Start: 1977 COVID-19 Vaccine (1) COVID-19 Vaccine (1) [facility] Start: 1976 HIV screening [facility] Start: 1973 Adolescent depression screening assessment Depression Screening (PHQ9) [facility] Start: 1973 COVID-19 Vaccine (1) COVID-19 Vaccine (1) [facility] Start: 1973 Depression screening using PHQ-9 (Patient Health Questionnaire 9) score [facility] Start: 1971 Urine screening for protein Urine (micro)albumin/creatinine ratio - Kidney Disease [facility] Start: 1967 Pneumococcal Vaccine: Ped or At-Risk (1 of 2 - PPSV23) Pneumococcal Vaccine: Ped or At-Risk (1 of 2 - PPSV23) [facility] Start: 1966 COVID-19 VACCINE (#1) COVID-19 VACCINE (#1) [facility] Start: 1966 COVID-19 Vaccine (1) COVID-19 Vaccine (1) [facility] Start: 1964 History and physical examination, annual for health maintenance Wellness Visit [facility] Start: 1964 Medicare Wellness Visit Medicare Wellness Visit [facility] Start: 1962 MMR Vaccines (1 of 1 - Standard series) MMR Vaccines (1 of 1 - Standard series) [facility] Start: 1961 COVID-19 Vaccine (#1) COVID-19 Vaccine (#1) [facility] Start: 1961 Hepatitis C antibody, confirmatory test HEPATITIS C SCREENING [facility] Start: 1961 Medicare Annual Wellness Visit Medicare Annual Wellness Visit (AWV) [facility] Start: 1961 Protein mass conc Mammogram [facility] Start: 1961 Screening for malignant neoplasm of colon [facility] Start: 1961 Screening mammography Mammogram [facility] Start: 1961 HEPATITIS C SCREENING HEPATITIS C SCREENING [facility] Start: 1961 Screening colonoscopy COLONOSCOPY [facility] Start: 1961 End: 1961 Screening for malignant neoplasm of cervix PAP SMEAR [facility] Start: 1961 End: 1961 Tetanus vaccination [facility] End: 05-24-2023 ACTH [facility] Comment on above: One Time for 1 Occurrences starting 11/2022 until 05/24/2023 Alanine aminotransfe rase [Enzymatic activity/volume] in Serum or Plasma [facility] Albumin [Mass/volume ] in Serum or Plasma [facility] End: 05-23-2023 ALDOSTERONE ALDOSTERONE Lab Routine One Time Morning Lab for 1 Occurrences starting 05/23/2023 until 05/23/2023 [facility] Comment on above: One Time Morning Lab for 1 Occurrences s tarting 05/23/2023 until 05/23/2023 ALDOSTERONE ALDOSTERONE Lab [facility]kaline [facility] [Enzymatic activity/volume] in Serum or Plasma [facility] End: 04-23-2023 Alpha-fetoprotein serum ALPHA FETOPROTEIN TUMOR MARKER Lab Routine Hepatic cirrhosis, unspecified hepatic cirrhosis type, unspecified whether ascites present (HCC) Abdominal pain, unspecified abdominal location 1 Occurrences starting 04/23/2022 until 04/23/2023 [facility] Comment on above: 1 Occurrences starting 04/23/2022 until 04/23/2023 Alpha-fetoprotein serum ALPHA FE TOPROTEIN TUMOR MARKER Lab Routine Hepatic cirrhosis, unspecified hepatic cirrhosis type, unspecified whether ascites present (HCC) Abdominal pain, unspecified abdominal location 04/23/2022 12:48 PM EDT [facility] Amphetamines [Presen ce] in Urine by Screen method >1000 ng/mL [facility] Anion gap in Serum or Plasma [facility] Bacteria identified Cx Nom (Bld) Blood Culture Aerobic/Anaerobic Microbiology Routine 11/28/2020 5:23 PM EST [facility] Bacteria identified in Urine by Culture URINE CULTURE Microbiology Routine 01/30/2022 5:40 PM EDT [facility] Work Phone: Bacteria identified in Urine by Culture URINE CULTURE Microbiology Routine 12/19/2023 5:09 PM EDT [facility] Basic metabolic 2000 panel - Serum or Plasma BASIC METABOLIC PANEL Lab Routine Hepatic cirrhosis, unspecified hepatic cirrhosis type, unspecified whether ascites present (HCC) Abdominal pain, unspecified abdominal location 04/23/2022 12:48 PM EDT [facility] Benzodiazepine measu rement, urine [facility] Bilirubin, total measurement [facility] BUN/Creatinine ratio [facility] Calcium [Mass/volume ] in Serum or Plasma [facility] Carbon dioxide, tota l [Moles/volume] in Central venous blood [facility] End: 04-23-2023 CBC panel - Blood by Automated count COMPLETE BLOOD COUNT Lab Routine Hepatic cirrhosis, unspecified hepatic cirrhosis type, unspecified whether ascites present (HCC) Abdominal pain, unspecified abdominal location 1 Occurrences starting 04/23/2022 until 04/23/2023 [employer] Work Phone: Comment on above: 1 Occurrences starting 04/23/2022 until 04/23/2023 CBC panel - Blood by Automated count COMPLETE BLOOD COUNT Lab Routine Hepatic cirrhosis, unspecified hepatic cirrhosis type, unspecified whether ascites present (HCC) Abdominal pain, unspecified abdominal location 04/23/2022 12:48 PM EDT [facility] Cholesterol [Mass/vo lume] in Serum or Plasma [facility] Cholesterol in HDL [Mass/volume] in Serum or Plasma [facility] Cocaine measurement, urine W [facility] End: 10-29-2021 Covid-19/Influenza Order Algorithm : COVID-19 Lab Test Only (OP in UTM) Dr. Digna Reagan [phone] Covid-19/Influenza Order Algorithm : COVID-19 Lab Test Only (OP in UTM) Dr. Digna Reagan [phone] Microbiology Routine Covid-19 1 Occurrences starting 10/29/2020 until 10/29/2021 [facility] Comment on above: 1 Occurrences starting 10/29/2020 until 10/29/2021 End: 11-05-2021 Covid-19/Influenza Order Algorithm : COVID-19 Lab Test Only (OP in UTM) Dr. Digna Reagan [phone] Covid-19/Influenza Order Algorithm : COVID-19 Lab Test Only (OP in UTM) Dr. Digna Reagan [phone] Microbiology Routine Contact with or exposure to viral disease 1 Occurrences starting 11/05/2020 until 11/05/2021 [facility] Comment on above: 1 Occurrences starting 11/05/2020 until 11/05/2021 Creatinine [Mass/vol ume] in Serum or Plasma [facility] End: 08-22-[address] CT angiography of thorax CT Angiogram Chest Imaging Routine MCGOWAN (dyspnea on exertion) 1 Occurrences starting 08/22/2019 until 08/22/2020 [facility] Comment on above: 1 Occurrences starting 08/22/2019 until 08/22/2020 CYTOLOGY REQUEST CYTOLOGY REQUES T Cytology Routine Other microscopic hematuria Urinary frequency Ordered: 10/01/2022 [facility] Comment on above: Ordered: 10/01/2022 End: 04-23-2023 Diabetes tracking panel HEMOGLOBIN A1C Lab Routine Hepatic cirrhosis, unspecified hepatic cirrhosis type, unspecified whether ascites present (HCC) Abdominal pain, unspecified abdominal location Abnormal finding of blood chemistry, unspecified 1 Occurrences starting 04/23/2022 until 04/23/2023 [facility] Comment on above: 1 Occurrences starting 04/23/2022 until 04/23/2023 Diabetes tracking panel HEMOGLOB IN A1C Lab Routine Hepatic cirrhosis, unspecified hepatic cirrhosis type, unspecified whether ascites present (HCC) Abdominal pain, unspecified abdominal location Abnormal finding of blood chemistry, unspecified 04/23/2022 12:48 PM EDT [facility] End: 08-22-2020 Echocardiography Echocardiogram complete Echocardiography Routine MCGOWAN (dyspnea on exertion) 1 Occurrences starting 08/22/2019 until 08/22/2020 [facility] Comment on above: 1 Occurrences starting 08/22/2019 until 08/22/2020 Erythrocyte mean cor puscular volume determination [facility] ESOPHAGOGASTRODUODEN OSCOPY AND COLONOSCOPY, GENERAL ANESTHESIA ESOPHAGOGASTRODUODENOSCOPY AND COLONOSCOPY, GENERAL ANESTHESIA Routine scheduled Rectal bleeding Change in bowel habits RUQ pain Esophageal dysphagia [facility] fentaNYL [Presence] in Urine by Screen method [facility] Glucose [Mass/volume ] in Serum or Plasma [facility] End: 05-25-2023 HCV RNA KRANTHI QUAL RFX TO QUANT HCV RNA KRANTHI QUAL RFX TO QUANT Lab Routine One Time for 1 Occurrences starting 05/25/2023 until 05/25/2023 [facility] Comment on above: One Time for 1 Occurrences starting 12/2022 until 05/25/2023 HCV RNA KRANTHI QUAL RFX TO QUANT HC V RNA KRANTHI QUAL RFX TO QUANT Lab Today 05/25/2023 5:00 AM EDT [facility] Hematocrit [Volume F raction] of Blood [facility] Hemoglobin [Mass/vol ume] in Blood [facility] Hemoglobin A1c/Hemoglobin.total in Blood [facility] End: 04-23-2023 Hepatic function panel HEPATIC FUNCTION PANEL Lab Routine Hepatic cirrhosis, unspecified hepatic cirrhosis type, unspecified whether ascites present (HCC) Abdominal pain, unspecified abdominal location 1 Occurrences starting 04/23/2022 until 04/23/2023 [facility] Comment on above: 1 Occurrences starting 04/23/2022 until 04/23/2023 Hepatic function panel HEPATIC F UNCTION PANEL Lab Routine Hepatic cirrhosis, unspecified hepatic cirrhosis type, unspecified whether ascites present (HCC) Abdominal pain, unspecified abdominal location 04/23/2022 12:48 PM EDT [facility] Hepatitis A virus Ig M Ab [Presence] in Serum or Plasma by Immunoassay HEPATITIS A IGM AB Lab Today 01/30/2022 5:36 AM EDT [facility] [employer] [facility] Leukocytes [#/volume ] in Blood [facility] End: 04-23-2023 Lipid 1996 panel - Serum or Plasma FULL LIPID PROFILE Lab Routine Hepatic cirrhosis, unspecified hepatic cirrhosis type, unspecified whether ascites present (HCC) Abdominal pain, unspecified abdominal location Abnormal findings on diagnostic imaging of other parts of digestive tract 1 Occurrences starting 04/23/2022 until 04/23/2023 [facility] Comment on above: 1 Occurrences starting 04/23/2022 until 04/23/2023 Lipid 1996 panel - S jina or Plasma FULL LIPID PROFILE Lab Routine Hepatic cirrhosis, unspecified hepatic cirrhosis type, unspecified whether ascites present (HCC) Abdominal pain, unspecified abdominal location Abnormal findings on diagnostic imaging of other parts of digestive tract 04/23/2022 12:48 PM EDT [facility] Low density lipoprot ein cholesterol measurement [facility] Mean corpuscular hem oglobin concentration determination [facility] Mean corpuscular hem oglobin determination [facility] Price post-voiding re sidual urine&/bladder cap [place] PRICE,POST-VOID RES,US,NON-IMAGING [place] Charge Routine Other microscopic hematuria Urinary frequency Ordered: 10/01/2022 [facility] Comment on above: Ordered: 10/01/2022 Measurement of renal function [facility] Methadone measurement, urine [facility] Neutrophil count [facility] Neutrophil percent differential count [facility] Patient referral [facility] Work Phone: Phencyclidine [Prese nce] in Urine [facility] Platelets [#/volume] in Blood [facility] Potassium measurement [facility] End: 04-23-2023 Prothrombin time PROTHROMBIN TIME AND INR Lab Routine Hepatic cirrhosis, unspecified hepatic cirrhosis type, unspecified whether ascites present (HCC) Abdominal pain, unspecified abdominal location 1 Occurrences starting 04/23/2022 until 04/23/2023 [facility] Comment on above: 1 Occurrences starting 04/23/2022 until 04/23/2023 Prothrombin time PROTHROMBIN RYAN E AND INR Lab Routine Hepatic cirrhosis, unspecified hepatic cirrhosis type, unspecified whether ascites present (HCC) Abdominal pain, unspecified abdominal location 04/23/2022 12:48 PM EDT [facility] Radiography for bone length studies XR BONE LENGTH STUDY Imaging Routine Left knee pain, unspecified chronicity 08/19/2023 1:09 PM EST [facility] Red blood cell count [facility] Red cell distributio n width determination [facility] End: 05-23-2023 RENIN RENIN Lab Routine One Time Morning Lab for 1 Occurrences starting 05/23/2023 until 05/23/2023 [facility] Comment on above: One Time Morning Lab for 1 Occurrences s tarting 05/23/2023 until 05/23/2023 RENIN RENIN Lab Today 05/23/2023 5:25 AM EDT [employer] [facility] Serum chloride measurement W [facility] Sodium measurement [facility] Standard ECG ECG ECG STAT 05/2022 4:02 PM EDT [employer] [facility] Work Phone: Standard ECG ECG ECG STAT 09/2022 4:39 PM [facility] [employer] [facility] End: 08-11-2022 Surgical pathology procedure SURGICAL GI ANATOMIC PATHOLOGY Anatomic Pathology Routine RUQ pain Change in bowel habits Rectal bleeding Cirrhosis of liver without ascites, unspecified hepatic cirrhosis type (HCC) History of colonic polyps Esophageal dysphagia Grade I hemorrhoids Adenomatous polyp of sigmoid colon One time for 1 Occurrences starting 08/11/2022 until 08/11/2022 [facility] Work [facility]: Comment on above: One time for 1 Occurrences starting 07/23 until 08/11/2022 Total cholesterol:HD L ratio measurement [facility] Total protein measurement [facility] Triglycerides measurement [facility] Troponin T.cardiac [Mass/volume] in Serum or Plasma by High sensitivity method [facility] Urea nitrogen [Mass/ volume] in Serum or Plasma [facility] Urine cannabinoid measurement [facility] Urine opiate measurement [facility] End: 04-03-2021 US Upper Extremity Non Vascular Limited Right US Upper Extremity Non Vascular Limited Right Imaging Routine Lump of skin of upper extremity, right Once for 1 Occurrences starting 04/03/2021 until 04/03/2021 [facility] Comment on above: Once for 1 Occurrences starting 04/03/20 until 04/03/2021 US Upper Extremity N on Vascular Limited Right US Upper Extremity Non Vascular Limited Right Imaging Routine Lump of skin of upper extremity, right 04/03/2021 5:45 PM EDT [facility] VLDL cholesterol measurement [facility] XR Knee - left 4 Views XR KNEE L EFT 4+ VIEWS Imaging Routine Left knee pain, unspecified chronicity 08/19/2023 1:09 PM [facility] [employer] Work Phone: [facility] Immunizations Immunization Date Immunization [facility] tetanus toxoid, redu elaine diphtheria toxoid, and acellular pertussis vaccine, adsorbed Phe 1 [facility] 05-22-2023 influenza, injectabl e, quadrivalent, preservative free Lupillo Ocampo MD Work Phone: [facility] 05-22-2023 influenza virus vaccine, unspecified formulation Jaime ROMERO Work Phone: [facility] 05-29-2022 influenza, injectabl e, quadrivalent, preservative free Pse Anesthesia [facility] 06-14-2021 influenza, injectabl e, quadrivalent, preservative free Lupillo Ocampo MD Work Phone: [facility] 06-14-2021 influenza virus vaccine, unspecified formulation Jaime Holt APRN-TELEPHONE ASSEMBLER Work Phone: [facility] 10-07-2020 hepatitis A and hepatitis B vaccine Lupillo Ocampo MD Work Phone: [facility] 10-07-2020 zoster vaccine recombinant Lupillo Ocampo MD Work Phone: [facility] 06-21-2020 influenza, injectabl e, quadrivalent, preservative free Lupillo Ocampo MD Work Phone: [facility] 06-21-2020 zoster vaccine recombinant Lupillo Ocampo MD Work Phone: [facility] 02-15-2020 hepatitis A and hepatitis B vaccine Lupillo Ocampo MD Work Phone: [facility] 08-22-2019 hepatitis A and hepatitis B vaccine Lupillo Ocampo MD Work Phone: [facility] 08-01-2019 Influenza, injectabl e, Madin Marlee Canine Kidney, preservative free, quadrivalent Lupillo Ocampo MD Work Phone: [facility] 07-16-2016 influenza, injectabl e, quadrivalent, contains preservative Av Bertrand MD Work Phone: [facility] 07-16-2016 influenza, injectabl e, quadrivalent, preservative free Lupillo Ocampo MD Work Phone: [facility] 07-25-2015 influenza, injectabl e, quadrivalent, preservative free Lupillo Ocampo MD Work Phone: [facility] Work Phone: 05-30-2015 hepatitis A vaccine, adult dosage Lupillo Ocampo MD Work Phone: [facility] 07-04-2014 influenza, seasonal, injectable, preservative free Lupillo Ocampo MD Work Phone: [facility] 07-04-2014 pneumococcal polysaccharide vaccine, 23 valent Lupillo Ocampo MD Work Phone: [facility] 09-23-2012 influenza virus vaccine, unspecified formulation Lupillo Ocampo MD Work Phone: [facility] 09-08-2007 influenza virus vaccine, unspecified formulation Lupillo Ocampo MD Work Phone: [facility] Work Phone: 09-08-2007 pneumococcal polysaccharide vaccine, 23 valent Lupillo Ocampo MD Work Phone: [facility] 07-22-2006 hepatitis A vaccine, adult dosage Lupillo Ocampo MD Work Phone: [facility] 07-22-2006 influenza virus vaccine, unspecified formulation Lupillo Ocampo MD Work Phone: [facility] 09-21-1998 pneumococcal polysaccharide vaccine, 23 valent Lupillo Ocampo MD Work Phone: [facility] Payers Date Payer Category Payer Unknown [id number] 2024 Medicare HMO ANTHEM MEDIBLUE ESSENTIAL/PLUS/CONNECT/SNP HMO [id number] 2024 Medicare [id number] 2024 Self-pay 2023 Private Health Insurance [facility] DUAL COMPLETE [facility] DUAL [facility] [id number] 2023-Present [address] [address] [place] [address] [id number]. [id number] 2021 Medicare [id number]. 1.13.172. [id number] 2021 Medicare (Managed Care) 1.2. [id number] .[id number] 2021 Medicare Managed Car e (unspecified) [facility] DUAL COMPLETE (HMO SNP) [id number] 2021 Medicare [id number] 2021 Medicaid [id number] 2019 Medicaid [employer] MEDICAID [employer] MEDICAID [id number] 2019-Present [id number]. [id number] EXC HANGE MMO [facility] xxxxxxxxxxxx 2018-Present [id number] [id number]. 2.7.3.654980.315 2015 Medicaid 1.2.840.900628. 1.13.385. 2.7.3.522431.315 2014 Medicaid [id number] 2.16.840.1.657710.3.249. 13 2014 Unknown [id number] 1960 Unknown [id number] 2.16.840.1.137054.3.579. 2.900 1961 Unknown [id number] 2.16.840.1.048473.3.579. 2.594 1961 Unknown [id number] 2.16.840.1.209469.3.579. 2.594 1961 Unknown [id number] 2.16.840.1.641722.3.579. 2.594 1961 Unknown [id number] 2.16.840.1.588194.3.579. 2.594 1961 Unknown [id number] 2.16.840.1.432015.3.579. 2.594 1961 Unknown [id number] 2.16.840.1.033680.3.579. 2.594 1961 Unknown [id number] 2.16.840.1.378149.3.579. 2.594 1961 Unknown [id number] 2.16.840.1.755928.3.579. 2.594 1961 Unknown [id number] 2.16.840.1.990178.3.579. 2.594 1961 Unknown [id number] 2.16.840.1.588211.3.579. 2.594 1961 Unknown [id number] 2.16.840.1.318211.3.579. 2.594 1961 Unknown [id number] 2.16.840.1.634122.3.579. 2.594 1961 Unknown [id number] 2.16.840.1.791927.3.579. 2.594 1961 Unknown [id number] 2.16.840.1.018629.3.579. 2.594 1961 Unknown [id number] 2.16.840.1.043195.3.579. 2.902 1961 Unknown [id number] 2.16.840.1.506590.3.579. 2.902 1961 Unknown [id number] 2.16.840.1.183131.3.579. 2.983 1961 Unknown [id number] 2.16.840.1.385109.3.579. 2.983 1961 Unknown [id number] 2.16.840.1.056403.3.579. 2.983 1961 Unknown [id number] 2.16.840.1.527423.3.579. 2.983 1961 Unknown [id number] 2.16.840.1.486378.3.579. 2.983 1961 Unknown [id number] 2.16.840.1.243211.3.579. 2.1243 1961 Unknown [id number] 2.840.1.646143.3.579. 2.903 1961 Unknown [id number] 2.840.1.490507.3.579. 2.903 1961 Unknown [id number] 2.840.1.987131.3.579. 2.903 1961 Unknown [id number] 2.16840.1.286377.3.579. 2.732 1961 Unknown [id number] 2.840.1.615534.3.579. 2.732 1961 Unknown [id number] 2.16840.1.952130.3.579. 2.732 1961 Unknown [id number] 2.16840.1.601483.3.579. 2.732 1961 Unknown [id number] 2.16.840.1.445748.3.579. 2.1245 1961 Unknown [id number] 2.16840.1.188866.3.579. 2.903 1961 Unknown [id number] 2.16.840.1.862479.3.579. 2.903 1961 Unknown [id number] 2.840.1.859257.3.579. 2.903 1961 Unknown [id number] 2.840.1.053321.3.579. 2.903 1961 Unknown [id number] 2.0.1.606519.3.579. 2.1244 1961 Unknown [id number] 2.0.1.120853.3.579. 2.124 1961 Unknown [id number] 2.0.1.904261.3.579. 2.1244 Dual Eligibility Medicare/Medicaid Organization [id number]. 2.7.9.631464.163731.315 Medicare [id number] Unknown [id number] Unknown [id number] Unknown [id number] 2..1.946190.3.579. 2.462 Unknown [id number] .1.373125.3.579. 2.462 Unknown [id number] 2.0.1.620729.3.579. 2.462 Unknown [id number] 2.840.1.685940.3.579. 2.462 Unknown [id number] 2.840.1.821383.3.579. 2.462 Unknown [id number] 2.0.1.929579.3.579. 2.462 Unknown [id number] 2.0.1.042461.3.579. 2.462 Unknown [id number] 2.16.840.1.299388.3.579. 2.462 Unknown [id number] 2.16.840.1.556612.3.579. 2.462 Unknown [id number] 2.16.840.1.180042.3.579. 2.462 Unknown [id number] 2.16.840.1.299046.3.579. 2.462 Unknown [id number] 2.16.840.1.426651.3.579. 2.462 Unknown [id number] 2.16.840.1.974759.3.579. 2.462 Unknown [id number] 2.16.840.1.210201.3.579. 2.462 Unknown [id number] 2.16.840.1.398949.3.579. 2.462 Social History Date Type Detail Facility Start: 05-30-2016 End: 03-22-2025 Tobacco smoking status NHIS Former smoker [facility] Start: 1960 Sex Assigned At Not on file [facility] Start: 06-23-2019 End: 07-28-2019 Alcohol intake Lifetime non-drinker (finding) [facility] Start: 06-23-2019 End: 08-06-2022 History SDOH Alcohol Frequency 1 [facility] Start: 06-23-2019 End: 11-05-2022 Tobacco Comment quit 4 years ago [facility] Start: 11-01-2019 End: 02-26-2024 Tobacco use and exposure Never used [facility] Start: 01-17-2022 End: 02-01-2025 Exposure to SARS-CoV-2 (event) Not sure [facility] Start: 11-14-2020 End: 02-01-2025 Alcohol intake Ex-drinker (finding) [facility] Start: 11-14-2020 Alcohol Comment quit drinking 5 plus years ago [facility] Start: 02-18-1985 End: 09-21-2018 History of tobacco use Current smoker [facility] Start: 02-18-1985 End: 09-21-2018 History of tobacco use Cigarette Smoker [facility] Start: 08-07-2015 End: 02-14-2025 Cigarettes smoked current (pack per day) - Reported 0.3 [facility] Start: 01-27-2022 End: 12-13-2024 Alcohol intake Current drinker of alcohol (finding) [facility] Start: 01-27-2022 History SDOH Alcohol Comment occasionally [facility] Start: 1960 [facility] At [facility] Start: 08-06-2022 History SDOH Social Connections Phone 3 [facility] Start: 08-06-2022 History SDOH Social Connections Get Together 2 [facility] Start: 08-06-2022 History SDOH Social Connections Living 4 [facility] Start: 08-06-2022 History SD[facility] Start: 08-06-2022 History SDOH Stress 5 [facility] Start: 08-06-2022 [facility] Start: 11-28-2020 End: 11-04-2024 Alcohol Use Disorder Identification Test - Consumption [AUDIT-C] [facility] How often to you hav e a drink containing alcohol? Never [facility] Average Number of Drinks Not on file [facility] Start: 11-05-2022 Alcohol Comment Occasionally [facility] Start: 06-20-2019 Gender identity Identifies as female gender (finding) [facility] Start: 06-20-2019 Sexual orientation Heterosexua l (finding) [facility] Start: 05-01-2023 Alcohol Comment LAST DRINK WAS 1930 04/30/23 [employer] [facility] Start: 04-24-2022 Sexual orientation Choose [...] money to buy more. Sometimes true [facility] Start: 07-25-2012 End: 01-10-2025 Sex Female (finding) [facility] Start: 06-09-2013 Alcohol Comment occasional gla ss of use [facility] NEGATED: Highlighted row Not [facility] Medical Equipment Procedure Code Equipment Code Equipment Origin al Text Equipment Identifier Dates Colonoscopy Haemorrhoid liga tion set [id number] FDA Start: 03-10-2025 Mesh Progrip 20 X15cm - [id number] Start: 07-16-2016 Goals Date Patient Goal Desired [...] phrasing with 90% accuracy and minimal cueing Functional Status Date Assessment Result Facility 02-01-2025 Patient Health [facility] ionnaire 2 item (PHQ-2) [Reported] [facility] Work Phone: 02-02-2014 Are you deaf, or do you have serious difficulty hearing No 02/02/2014 4:31 PM EDT Danette Turner RN No [facility] 02-02-2014 Are you blind, or do you have serious difficulty seeing, even when wearing glasses No 02/02/2014 4:31 PM EDT Danette Turner RN No [facility] 02-02-2014 Do you have serious difficulty walking or climbing stairs No 02/02/2014 4:31 PM EDT Danette Turner RN No [facility] 02-02-2014 Do you have difficul ty dressing or bathing No 02/02/2014 4:31 PM EDT Danette Turner RN No [facility] 02-02-2014 Because of a physica l, mental, or emotional condition, do you have difficulty doing errands alone such as visiting a physician's office or shopping No 02/02/2014 4:31 PM EDT Danette Turner RN No [facility] Mental Status Date Assessment Result Facility 03-10-2025 Cognitive function Voice/Name [facility] Work Phone: 01-11-2014 Because of a physica l, mental, or emotional condition, do you have serious difficulty concentrating, remembering, or making decisions No 01/11/2014 4:10 PM EDT Anay Zafar No [facility] Clinical Notes 02-15-2021 to 03-22-2025 Note Date & Type Note Facility 03-22-2025 Discharge summary [facility] 03-22-2025 Radiology Diagnostic study note [facility] Imaging Services [address] [place] [address] [id number] Chest PA and Lateral MR#: [id number] Acct: [id number] Name: MICHELINE FOX Rep #: [id number] : 1960 F 64 From: Kwesi Camarena MD PCP: Dr. Eduardo Murcia MD Status: REG ER Study:Chest PA and Lateral Date of Exam: 03/22/25 Exam# [id number] Ordering Dr: Kera Wren MD PROCEDURE: CHEST PA AND LATERAL 03/22/2025 REASON FOR EXAM: CHEST PAIN TECHNIQUE: CHEST PA AND LATERAL COMPARISON: AP chest of 07/10/2024. RAD/Chest PA and Lateral IMPRESSION: The lateral view is somewhat limited by patient motion. Right upper quadrant abdominal surgical clips are again seen. Prior cervical surgery is noted. Mild right hemidiaphragm elevation is seen. Lungs are hypoinflated, but appear clear of acute disease. No pleural effusion or pneumothorax is evident. The cardiomediastinal silhouette is stable, without evidence of cardiomegaly. No evidence of acute cardiopulmonary disease. Reading Location: [place] [address] CC: Dr. Eduardo Murcia MD; Dr. Phillip Wren MD ~ Comic Book Designer: Signed [facility] 03-22-2025 Discharge summary Note Date/Time March 22, 2025 7:52pm [facility] Medical Records Department [address] [place] [address] Emergency Department Summary 03/22/25 MR#: [id number] Acct: [id number] Name: MICHELINE FOX Rep #:[id number] : 1960 64 From: Phillip Wren MD PCP: Dr. Eduardo Murcia MD Status:REG ER Location: ED HPI History of Present Illness Chief Complaint: Shortness of Breath Detail of Chief Complaint: Sent to ER because of weight gain and shortness of breath Informant: patient Onset/Context/Timing Onset: Weeks (Weight gain over the past month, shortness of breath with activityx 1 week) Context: Sudden Onset Timing: Intermittent Quality: Dyspnea with activity and chest pressure Location: Mid sternum and respiratory Current Severity: Mild Maximum Severity: Severe Worsened by: Walking 10 feet Relieved by: Rest for 5 to 10 minutes Associated Symptoms Associated Symptoms: Weight gain Narrative Narrative: Patient is a 64-year-old woman. She has a past medical history of hypertension,had a cardiac catheterization at [facility] in 2019 that revealed minimal atherosclerotic disease. She has not had a recent stress test she does have a history of obstructive sleep apnea, fatty liver. She is seen by Dr. Iyer for her fatty liver. She was sent down from Dr. Iyre's office. She was seen by Dr. Francine Whitt. Her note is not complete but was reviewed. Under her review of systems patient complaining of abdominal pain, bloating and blood in stool. She had no belching. When I asked her regarding change in color, consistency or caliber of her stool she replied no. She is not complaining of abdominal pain. Her complaint is shortness of breath at rest that is worse with activity and associated with chest pressure with activity. There is no review of system questions related to cardiovascular. Patient denies fever, chills night sweats. She denies headache, visual, ocular auditory symptoms. Presently she denies chest discomfort. She states she gets chest discomfort with walking and becomes quite short of breath. Her symptoms resolved within 5 to 10 minutes. She does not have any stents and is not had cardiac surgery. Patient denies history of congestive heart failure. She denies orthopnea. She denies PND. She does have history of high cholesterol and hypertension. Prior similar symptoms: No Recent Illness/Hospitalization: No PFSH [facility] Medical History (Updated 03/22/25 @ 19:30 by Lolis Chavira) Anxiety Depression Congestive heart failure (CHF) Wears dentures Wears glasses Arthritis Ambulates with cane Cirrhosis Restless legs TIA (transient ischemic attack) Former smoker CPAP (continuous positive airway pressure) dependence Sleep apnea History of echocardiogram History of stress test Hypertension Cardiology follow-up encounter Chronic insomnia History of cirrhosis Obesity (BMI 30-39.9) Sleep apnea Chest pain Atherosclerotic heart disease of [place] coronary artery without angina pectoris Hepatitis C Essential hypertension Home Medications ?Medication ?Instructions ?Recorded ?Last Taken ?Type atorvastatin 40 mg tablet 40 mg PO DAILY cholesterol 1 03/21/25 History trazodone 100 mg tablet 100 mg PO DAILY mental healt h 07/10/24 03/21/25 History thiamine HCl (vitamin B1) 100 mg 100 mg PO DAILY #30 t abs 07/13/24 03/22/25 Rx tablet gabapentin 300 mg capsule 300 mg PO Q12H 10/18/2411/15 History mirtazapine 15 mg tablet 15 mg PO QHS 10/18/24 History propranolol 40 mg tablet 60 mg PO BID blood pressure 12/08/24 03/22/25 History sennosides 8.6 mg-docusate sodium 1 tab-cap PO BID PRN constipation 12/08/24 Unknown History 50 mg tablet (Senna Plus) venlafaxine 150 mg tablet,extended 150 mg PO QDAY 11/2003/22/25 History release 24 hr tirzepatide (weight loss) 2.5 2.5 mg subcut QWEEK 12/1303/20/25 History mg/0.5 mL subcutaneous solution (Zepbound) magnesium 250 mg tablet 250 mg PO DAILY 03/22/2511/15 History mecobalamin (vitamin B12) 1,000 1,000 mcg PO DAILY 11/1503/22/25 History mcg lozenges Allergy/AdvReac Type Severity Reaction Status Date / Time codeine Allergy Unknown Verified 03/22/25 15:15 latex Allergy Hives Verified 03/22/25 15:15 Penicillins Allergy Unknown Verified 03/22/25 15:15 Family History Father CAD (coronary artery disease) Myocardial infarction History of coronary artery bypass surgery Grandmother Cardiac pacemaker in situ Mother Hypertension Surgical History History of left heart catheterization (LHC) (~07/08/19) History of lumbar spinal fusion History of herniorrhaphy History of hysterectomy History of appendectomy History of cholecystectomy History of bariatric surgery Social History housing: [facility] Smoking Status: Former smoker alcohol intake: former details: occasional substance use type: does not use caffeine: Yes Type: carbonated beverages Number of servings: 1 and coffee ROS ROS ED Constitutional Constitutional ED: Denies chills, fever(s), subjective or weight loss Eyes Eyes: Denies blurry vision or change in vision ENT ENT ED: Denies rhinorrhea or sore throat Cardiovascular Cardiovascular: Reports chest pain; Denies orthopnea, palpitations, paroxysmal nocturnal dyspnea or racing heartbeat Respiratory/Chest Respiratory/Chest: Reports dyspnea and dyspnea on exertion; Denies cough, orthopnea, paroxysmal nocturnal dyspnea or sputum Gastrointestinal Gastrointestinal: Denies abdominal pain, constipation, diarrhea, melena, nausea or vomiting Musculoskeletal Musculoskeletal: Denies arthralgias, back pain or myalgias Integumentary Denies abscess, Abrasions or rash Neurologic Neurologic: Reports weakness; Denies paresthesias Psychiatric Psychiatric: Denies anxiety or depression Endocrine Endocrinology: Denies cold intolerance or heat intolerance Hematologic/Lymphatic Hematologic/Lymphatic: Reports systems reviewed and no addt'l complaints, exceptas documented EXAM Physical Exam Const Vital Signs: 03/22/25 15:13 03/22/25 16:01 03/22/25 16:03 Temperature 97.6 F L Temperature Source Oral Pulse Rate 81 80 Respiratory Rate 24 H 14 Respiratory Effort Normal Non-Labored Respiratory Depth Normal Respiratory Pattern Normal Blood Pressure 158/81 H Blood Pressure Mean 106 Pulse Ox 95 Oxygen Delivery Method Room Air Room Air 03/22/25 16:20 03/22/25 17:00 03/22/25 18:00 Temperature Temperature Source Pulse Rate 74 74 Respiratory Rate 16 16 Respiratory Effort Respiratory Depth Respiratory Pattern Blood Pressure 109/77 130/69 H Blood Pressure Mean 87 88 Pulse Ox Oxygen Delivery Method Room Air 03/22/25 19:00 Temperature Temperature Source Pulse Rate 73 Respiratory Rate 16 Respiratory Effort Respiratory Depth Respiratory Pattern Blood Pressure 100/65 Blood Pressure Mean 77 Pulse Ox Oxygen Delivery Method Positive well nourished and well developed Constitutional Narrative: BMI is 54.7. Patient is slightly tachypneic. There is no use of accessory muscles. General Appearance ED: well developed; Negative for pallor HEENT HEENT Narrative: Head is atraumatic normocephalic. Ears normal. Nares patent. Posterior pharynx is normal. Eyes PERRL and EOMs intact bilaterally General Eye ED: Negative for pale conjunctiva or scleral icterus Neck no lymphadenopathy, supple and no JVD Chest Wall palpation of chest normal Resp normal respiratory effort and clear to auscultation bilaterally Cardio regular rate, regular rhythm, S1 normal heart sound, S2 normal heart sound and no murmurs GI GI Narrative: Soft flabby. There is no discrete tenderness. Exam is limited due to body habitus. Back/Spine no CVA tenderness Extremity normal to inspection Extremity Narrative: 1 to 2 mm of pitting edema. General Extremety ED: Yes edema General Extremity: edema Neuro oriented x3 and CN's II-XII intact bilaterally Sensorium / Orientation: alert Psych mental status grossly normal Skin no rashes or lesions noted, no wounds and skin turgor normal General Skin Exam: elasticity normal; Negative for jaundice or pallor MDM MDM MDM Narrative Medical decision making narrative: Patient is lymphedema and weight gain could be due to her fatty liver disease. What is of concern is the fact that she has dyspnea with minimal activity and more importantly chest heaviness that substernal that comes on with activity andboth resolve with rest. She has known coronary disease based on cardiac catheterization performed at [facility] in 2019. Her workup included EKG, chest x-ray, troponin, CBC to assess H&H and electrolyte panel to assess renal function since she in all likelihood will needa cardiac catheterization. History & Record Review Additional record(s) reviewed:: Prior outpatient record and No prior records Lab Data Attestation: I reviewed the patient's lab results. Lab results narrative: CBC is unremarkable. Both troponins are normal. BNP is normal. Comprehensive metabolic panel is normal. Labs: Laboratory Results - last 24 hr 03/22/25 03/22/25 15:58 17:52 WBC 6.7 RBC 4.77 Hgb 14.0 Hct 42.1 MCV 88.3 MCH 29.4 MCHC 33.3 RDW Std Deviation 46.9 H RDW Coeff of Xavier 14.6 Plt Count 163 MPV 11.4 Immature Gran % (Auto) 0.600 Neut % (Auto) 66.1 Lymph % (Auto) 20.9 [place] % (Auto) 7.1 Eos % (Auto) 4.7 Baso % (Auto) 0.6 Absolute Neuts (auto) 4.5 Absolute Lymphs (auto) 1.41 Nucleated RBC % 0 Sodium 140 Potassium 4.5 Chloride 103 Carbon Dioxide 23.9 Anion Gap 13 BUN 15 Creatinine 1.19 Estim Creat Clear Calc 71.72 Est GFR (MDRD) Non-Af 51 L BUN/Creatinine Ratio 12.4 Glucose 98 Calcium 9.2 Troponin T High Sens 12 Troponin T Hi Sens 2 Hr 10 NT pro BNP II 213 Radiography Chest X-Ray - ED: 2 View and Read by ED Physician (Limited study due to body habitus. There is elevation of the right high hemidiaphragm. There is no evidence of infiltrate, curly B-lines or cephalization. There is no evidence ofeffusion or pneumothorax. The cardiac silhouette and size is unchanged from prior with findings consistent with cardi) Diagnostic Testing: Clinical Impression(s) from Imaging Studies Chest X-Ray 03/22/25 16:06 IMPRESSION: The lateral view is somewhat limited by patient motion. Right upper quadrant abdominal surgical clips are again seen. Prior cervical surgery is noted. Mild right hemidiaphragm elevation is seen. Lungs are hypoinflated, but appear clear of acute disease. No pleural effusion or pneumothorax is evident. The cardiomediastinal silhouette is stable, without evidence of cardiomegaly. No evidence of acute cardiopulmonary disease. Reading Location: [place] [address] EKG Initial EKG: Attestation: I personally reviewed and interpreted this EKG as follows: Interpretation: Sinus Rhythm (Rate is 79. EKG is normal. Patient was asymptomatic at the time the EKG was performed. [place] interval is 180 ms Rickers duration 92 ms. QT duration 388 ms. Watson is normal) Management Discussion w/another healthcare provider: Hospitalist (Case was discussed with Dr. Eva Dean. Explained that the reason for admission is the fact that she gets chest pain with minimal activity and can only walk 10 to 15 feet beforeshe becomes dyspneic and develops chest pressure.) Treatment and Re-Evaluation :: Since patient is having dyspnea with minimal activity echo is very with rest right concern is this represents new onset angina. My recommendation is 23 observation even though her troponins are normal. Patient has chest tightness with minimal walking. Discharge Plan Dx/Rx/DC Orders Clinical Impression: Chest pain, exertional, Essential hypertension, Edema, Coronary artery disease,MCGOWAN (dyspnea on exertion), Body mass index (BMI) greater than 50 Disposition Disposition: Acute Care Hospital [facility] What to do if you have Problems For any increased pain, shortness of breath, bleeding, nausea or vomiting, chestpain, or any unexpected problems, contact your Primary Care Provider. Call [facility] ([phone]) or report to the closest Emergency Room. Call 911 if necessary. 03/22/251951 <Electronically signed by Phillip Wren MD> Cosigner Signature (if applicable): CC: Dr. Eduardo Murcia MD ~ Signed [facility] Work Phone: 1(950) 964-464506-20-2025 Consult note Author [facility] Note Date/Time March 10, 2025 4:13 pm [facility] Medical Records Department [address] [place] [address] Anesthesia Postop Eval II 03/10/25 1546 MR#: [id number] Acct: [id number] Name: MICHELINE FOX Rep #:[id number] 3 : 1960 64 From: Mitra Billings CRNA PCP: Dr. Eduardo Murcia MD Status:REG SDC Y Race: C Location: [address] Anesthesia Postop Eval I Sum Postop Eval Completion status Anesthesia document: Postop Eval 1 completed: Yes Anesthesia Postop Eval I Summary Anesthesia Postop Eval I Summary: Anesthesia Postop Eval I: Assessment Summary Airway patent Yes 03/10/25 14:07 [email or web address] Spontaneous unlabored Yes 03/10/25 14:07 [email or web address] respirations Mental status Awake,Calm 03/10/25 14:07 [email or web address] nausea No 03/10/25 14:07 [email or web address] Vomiting No 03/10/25 14:07 [email or web address] Anesthesia Postop Eval I: Fluid Summary Crystalloid volume administer 600 03/10/25 14:07 [email or web address] (ml) Colloids volume administered ( ml) Blood Product volume administered (ml) Total IV fluid infused 600 03/10/25 14:07 [email or web address] Anesthesia Postop Eval I: Summary Notes Anesthesia Complication No 03/10/25 14:07 [email or web address] Anesthesia Complication Comment: Post-operative progress note Anesthesia: Postop Eval II Evaluation Mental status: Awake Pain Level: 0 nausea: No Vomiting: No 03/10/25 1546 <Electronically signed by Mitra turner CUSTOMER ADVISOR> Date _ Mitra Billings CUSTOMER ADVISOR Cosigner Signature: Date CC: ~ Signed [facility] Work Phone: 1(224) 291-852106-20-2025 Consult note [facility] Medical Records Department [address] [place] [address] Anesthesia Postop Eval II 03/10/25 1546 MR#: [id number] Acct: [id number] Name: MICHELINE FOX Rep #:[id number] 3 : 1960 64 From: Mitra Billings CRNA PCP: Dr. Eduardo Murcia MD Status:REG SDC Y Race: C Location: [place] [address] Anesthesia Postop Eval I Sum Postop Eval Completion status Anesthesia document: Postop Eval 1 completed: Yes Anesthesia Postop Eval I Summary Anesthesia Postop Eval I Summary: Anesthesia Postop Eval I: Assessment Summary Airway patent Yes 03/10/25 14:07 [email or web address] Spontaneous unlabored Yes 03/10/25 14:07 [email or web address] respirations Mental status Awake,Calm 03/10/25 14:07 [email or web address] nausea No 03/10/25 14:07 [email or web address] Vomiting No 03/10/25 14:07 [email or web address] Anesthesia Postop Eval I: Fluid Summary Crystalloid volume administer 600 03/10/25 14:07 [email or web address] (ml) Colloids volume administered ( ml) Blood Product volume administered (ml) Total IV fluid infused 600 03/10/25 14:07 [email or web address] Anesthesia Postop Eval I: Summary Notes Anesthesia Complication No 03/10/25 14:07 [email or web address] Anesthesia Complication Comment: Post-operative progress note Anesthesia: Postop Eval II Evaluation Mental status: Awake Pain Level: 0 nausea: No Vomiting: No 03/10/25 1546 a CUSTOMER ADVISOR> Date _ Mitra ca CUSTOMER ADVISOR Cosigner Signature: Date CC: ~ Signed [facility]06-20-2025 Consult note Author Joe Cespedes [facility] Note Date/Time March 10, 2025 2:07 pm [facility] Medical Records Department [address] [place] [address] Anesthesia Postop Eval I 03/10/25 1405 MR#: [id number] Acct: [id number] Name: MICHELINE FOX Rep #:[id number] 2 : 1960 64 From: Joe Cespedes PCP: Dr. Eduardo Murcia MD Status:REG SDC Y Race: C Location: [place] [address] Anesthesia: Postop Eval I Current Vital Signs Temperature: 98.8 F Pulse Rate: 74 Blood Pressure: 148/86 Respiratory Rate: 16 Pulse Ox: 95 Oxygen Delivery Method: Room Air Assessment Airway patent: Yes Spontaneous unlabored respirations: Yes Mental status: Awake and Calm nausea: No Vomiting: No Anesthesia Complication: No Fluid Hydration Crystalloid volume administer (ml): 600 Total IV fluid infused: 600 Progress Note Anesthesia document: Postop Eval 1 completed: Yes 03/10/25 1409 <Electronically signed by Joe Cespedes > Date _ Joe Cespedes Cosigner Signature: Date CC: ~ Signed [facility] Work Phone: 1(211) 593-237906-20-2025 Consult note Author Ajay Peter [facility] Note Date/Time March 10, 2025 1:12 pm [facility] Medical Records Department [address] [place] [address] Pre-Anesthesia Evaluation 03/10/25 1305 MR#: [id number] Acct: [id number] Name: MICHELINE FOX Rep #:[id number] 1 : 1960 64 From: Ajay Peter MD PCP: Dr. Eduardo Murcia MD Status:REG SDC Y Race: C Location: [place] [address] ASA Classification* ASA Classification ASA Classification: 3 Assessment & Plan Anesthesia* Anesthesia Assessment Anesthesia Assessment: Discussed sedation and/or anesthesia options, risks, benefits, and alternatives with patient/parents/legal guardian/POA. Questions invited. The patient/parents/legal guardian/POA seems to understand and agrees to proceedwith anesthesia plan. Reviewed the physical assessment, medical history, allergy history and patient home medications list prior to surgery/procedure/anesthetic and documented any changes. Performed airway and anesthesia risk assessments. Anesthesia Type Anesthesia Type: MAC History Source History Obtained from:: Patient and Chart Anesthesia Focused Assessment* Temperature: 98.4 F Pulse Rate: 74 Blood Pressure: 172/87 Respiratory Rate: 16 Pulse Ox: 94 Oxygen Delivery Method: Room Air Airway Assessment Mouth opens: >3 cm Mallampati Score: III Teeth Condition: Caps/Crowns (Patient has a crown left lower molar. It is tight.), Dentures (Patient has full upper denture. It will come out.) and Missing (Patient is missing back molars bilateral lower jaw.) Neck Range of motion (ROM): Full ROM Labs Anesthesia Preop lab: CBC WBC 7.2 K/mm3 (4.4-11.0) 01/05/25 13:53 01/05/25 RBC 4.56 M/mm3 (4.2-5.4) 01/05/25 13:53 01/05/25 Hgb 13.4 g/dL (12.0-15.0) 01/05/25 13:53 01/05/25 Hct 40.9 % (37-47) 01/05/25 13:53 01/05/25 Plt Count 179 K/mm3 (150-450) 01/05/25 13:53 01/05/25 CHEMISTRY Potassium 4.7 mmol/L (3.3-5.1) 01/05/25 13:53 01/05/25 Sodium 140 mmol/L (133-145) 01/05/25 13:53 01/05/25 Magnesium 2.3 mg/dL (1.6-2.6) 07/11/24 12:47 07/11/24 Phosphorus 3.4 mg/dL (2.5-4.9) 07/11/24 12:47 07/11/24 BUN 27 mg/dL (4-19) H 01/05/25 13:53 01/05/25 Creatinine 1.01 mg/dL (0.70-1.20) 01/05/25 13:53 01/05/25 Glucose 85 mg/dL (70-99) 01/05/25 13:53 01/05/25 POC Glucose 142 mg/dL (74-106) H 07/12/24 11:41 07/12/24 TSH 4.120 uIU/mL (0.358-3.740) H 07/11/24 02:25 COAG Pre-Assessment Diagnosis/Proposed Procedure Planned Operative Procedure(s): Colonoscopy and Egd Anesthesia History Anesthesia History - 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 When Was Last Pacemaker Check QUESTION #4 FULL TEXT: You/Your Family Experience fever (hyperthermia) with Anesthesia Last Oral Intake Last Oral intake: Last Oral Intake NPO since 05:30 03/10/25 12:18 Meds taken in AM with sips of water? Meds patient instructed to take am of surgery Any additional information?: Yes Meds taken in AM with sips of water?: Yes PONV PONV - supervisor tank cleaning: PONV - supervisor tank cleaning Female Yes 02/21/25 10:27 HX of Motion Sickness No 02/21/25 10:27 HX of N/V After Surgery No 02/21/25 10:27 Non-Smoker Yes 02/21/25 10:27 Duration of Surgery greater No 02/21/25 10:27 than 60 minutes Number of Risk Factors 2 02/21/25 10:27 PONV Score Moderate Risk 02/21/25 10:27 Height & Weight Height & Weight: Anesthesia: Height & Weight Height 5 ft 5 in 03/10/25 12:18 Weight: 140.614 kg 03/10/25 12:18 Body Mass Index (BMI) 51.5 03/10/25 12:18 Respiratory Assessment Respiratory Assessment - supervisor tank cleaning: Respiratory Tract Infection Hx - supervisor tank cleaning Hx Respiratory Tract Infection No 02/21/25 10:27 STOP Sleep Apnea STOP Sleep Apnea - supervisor tank cleaning: STOP Sleep Apnea - supervisor tank cleaning Hx Hypertension Yes 02/21/25 10:27 Hx Sleep Apnea Yes 02/21/25 10:27 CPAP No: unable to wear 02/21/25 10:27 BIPAP No 02/21/25 10:27 Do you snore loudly (louder No 02/21/25 10:27 than talking or can be heard Do you often feel tired/ No 02/21/25 10:27 fatigued/ sleepy during daytime? Has anyone observed you stop No 02/21/25 10:27 breathing during sleep? STOP Results Positive 02/21/25 10:27 QUESTION #5 FULL TEXT : Do you snore loudly (louder than talking or can be heard through closed doors)? 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 Specify any problems Hx of Preganancy in last 3 No 02/21/25 10:27 Months Nurse Filling Out Transfusion [facility] 02/21/25 10:27 & Questions: Date: 02/21/25 02/21/25 10:27 Time: 10:32 02/21/25 10:27 Patient unable to answer at this time (ie. confused, unrespo /Reproduction History /Reproductive History - supervisor tank cleaning: /Reproductive Hx- supervisor tank cleaning Hx Now No 02/21/25 10:27 Gestational Age (in weeks): EDC: Hx Hx Para Hx Section SAB Active Medications Active Medications: Current Medications Generic Name Dose Route Start Last Admin Trade Name Freq PRN Reason Stop Dose Admin Lactated Ringer's 1,000 mls @ 15 mls/hr 03/10/25 12:15 03/10/25 12:22 IV 15 mls/hr .Q48H JENNIFER Administration PFSH Medical History Wears dentures Wears glasses Arthritis Ambulates with cane Cirrhosis Restless legs TIA (transient ischemic attack) Former smoker CPAP (continuous positive airway pressure) dependence Sleep apnea History of echocardiogram History of stress test Hypertension Cardiology follow-up encounter Chronic insomnia History of cirrhosis Obesity (BMI 30-39.9) Sleep apnea Chest pain Atherosclerotic heart disease of [place] coronary artery without angina pectoris Hepatitis C Essential hypertension Home Medications ?Medication ?Instructions ?Recorded ?Last Taken ?Type atorvastatin 40 mg tablet 40 mg PO DAILY cholesterol 1 Unknown History trazodone 100 mg tablet 100 mg PO DAILY mental healt h 07/10/24 Unknown History thiamine HCl (vitamin B1) 100 mg 100 mg PO DAILY #30 t abs 07/13/24 03/10/25 Rx tablet gabapentin 300 mg capsule 300 mg PO QHS 10/18/24 Unkno wn History mirtazapine 15 mg tablet 15 mg PO QHS 10/18/24 Unknow n History hydrocortisone acetate 25 mg 25 mg [place] QHS hemorrhoids #12 ea 12/08/24 Unknown Rx rectal suppository (Anusol-HC) propranolol 40 mg tablet 60 mg PO BID blood pressure 12/08/24 03/10/25 History sennosides 8.6 mg-docusate sodium 1 tab-cap PO BID PRN constipation 12/08/24 Unknown History 50 mg tablet (Senna Plus) tenapanor 50 mg tablet (Ibsrela) 50 mg PO BID #60 tabs 12/08/24 Unknown Rx venlafaxine 150 mg tablet,extended 75 mg PO QDAY 12/0803/10/25 History release 24 hr peg 3350-electrolytes 236 240 ml PO Q10M #4,000 mL Unknown Rx gram-22.74 gram-6.74 gram-5.86 gram solution (Golytely) tirzepatide (weight loss) 2.5 2.5 mg subcut QWEEK 12/1302/20/25 History mg/0.5 mL subcutaneous solution (Zepbound) Allergy/AdvReac Type Severity Reaction Status Date / Time codeine Allergy Unknown Verified 03/10/25 12:16 latex Allergy Hives Verified 03/10/25 12:16 Penicillins Allergy Unknown Verified 03/10/25 12:16 Family History Father CAD (coronary artery disease) Myocardial infarction History of coronary artery bypass surgery Grandmother Cardiac pacemaker in situ Mother Hypertension Surgical History History of left heart catheterization (LHC) (~07/08/19) History of lumbar spinal fusion History of herniorrhaphy History of hysterectomy History of appendectomy History of cholecystectomy History of bariatric surgery Social History housing: [facility] Smoking Status: Former smoker alcohol intake: former details: occasional substance use type: does not use caffeine: Yes Type: carbonated beverages Number of servings: 1 and coffee Review of Systems (Anesthesia) ROS Narrative System reviewed and no additional complaints, except as documented. 03/10/25 1312 <Electronically signed by Ajay palafox MD> Date _ Ajay Peter MD Cosigner Signature: Date CC: ~ Signed [facility] Work Phone: 1(115) 265-503706-20-2025 History and physical note Author Elier Friend [facility] Note Date/Time March 10, 2025 12:0 9pm [facility] Medical Records Department [address] [place] [address] History & Physical Exam 03/10/25 1206 MR#: [id number] Acct: [id number] Name: MICHELINE FOX Rep #:[id number] 1 : 1960 64 From: Elier Friend DO PCP: Dr. Eduardo Murcia MD Status:[facility] Location: [place] [address] HPI - General General Date of Admission: 03/10/25 Date of Service: 03/10/25 Chief Complaint: Bloating, flatulence, constipation HPI Narrative MICHELINE FOX, is a 64 F who presents HPI Chief Complaint: Establish Care Details: MICHELINE FOX, is a 64 F who presents to the office today for - prior colonoscopy in 2021 or 2022 - she reports she has such terrible internal and external hemorrhoids and was told she needed surgery and is ready to schedule this - c/o bloating, flatulence, constipation - straining with BM - she is taking Stool Softener 2 BID - lately she has been having a small stool every day - c/o rectal pain only with a BM - c/o weight gain - she is seeing blood in toilet water and on tissue - has urge to have a BM but is unable to evacuate stool - applies perineal pressure assists with elimination of stool - h/o hysterectomy in - vaginal deliveries - failed Linzess in the past - has never been on Trulance, Amitiza, or Ibsrela - failed Miralax - it did nothing B: banana and PB or a muffin or yogurt L: skips or dinner left overs or ham/turkey wrap D: protein starch - does not get enough vegetables - reports her water intake is not great - feels so bloated she does to want to drink much water - she denies any heart, lung or kidney disease - she has a fiber supplement - not yet started - occasional HB - denies any nausea - h/[facility] bariatric [facility] Medical History Wears dentures Wears glasses Arthritis Ambulates with cane Cirrhosis Restless legs TIA (transient ischemic attack) Former smoker CPAP (continuous positive airway pressure) dependence Sleep apnea History of echocardiogram History of stress test Hypertension Cardiology follow-up encounter Chronic insomnia History of cirrhosis Obesity (BMI 30-39.9) Sleep apnea Chest pain Atherosclerotic heart disease of [place] coronary artery without angina pectoris Hepatitis C Essential hypertension Home Medications ?Medication ?Instructions ?Recorded ?Last Taken ?Type atorvastatin 40 mg tablet 40 mg PO DAILY cholesterol 1 Unknown History trazodone 100 mg tablet 100 mg PO DAILY mental healt h 07/10/24 Unknown History thiamine HCl (vitamin B1) 100 mg 100 mg PO DAILY #30 t abs 07/13/24 Unknown Rx tablet gabapentin 300 mg capsule 300 mg PO QHS 10/18/24 Unkno wn History mirtazapine 15 mg tablet 15 mg PO QHS 10/18/24 Unknow n History hydrocortisone acetate 25 mg 25 mg [place] QHS hemorrhoids #12 ea 12/08/24 Unknown Rx rectal suppository (Anusol-HC) propranolol 40 mg tablet 60 mg PO BID blood pressure 12/08/24 Unknown History sennosides 8.6 mg-docusate sodium 1 tab-cap PO BID PRN constipation 12/08/24 Unknown History 50 mg tablet (Senna Plus) tenapanor 50 mg tablet (Ibsrela) 50 mg PO BID #60 tabs 12/08/24 Unknown Rx venlafaxine 150 mg tablet,extended 75 mg PO QDAY 12/08 Unknown History release 24 hr peg 3350-electrolytes 236 240 ml PO Q10M #4,000 mL Unknown Rx gram-22.74 gram-6.74 gram-5.86 gram solution (Golytely) tirzepatide (weight loss) 2.5 2.5 mg subcut QWEEK 12/1302/20/25 History mg/0.5 mL subcutaneous solution (Zepbound) Allergy/AdvReac Type Severity Reaction Status Date / Time codeine Allergy Unknown Verified 02/21/25 10:23 latex Allergy Hives Verified 02/21/25 10:23 Penicillins Allergy Unknown Verified 02/21/25 10:23 Family History Father CAD (coronary artery disease) Myocardial infarction History of coronary artery bypass surgery Grandmother Cardiac pacemaker in situ Mother Hypertension Surgical History History of left heart catheterization (LHC) (~07/08/19) History of lumbar spinal fusion History of herniorrhaphy History of hysterectomy History of appendectomy History of cholecystectomy History of bariatric surgery Social History housing: [facility] Smoking Status: Former smoker alcohol intake: former details: occasional substance use type: does not use caffeine: Yes Type: carbonated beverages Number of servings: 1 and coffee ROS Constitutional Constitutional: Denies fatigue, fever(s), poor appetite, weight gain or weight loss Gastrointestinal Gastrointestinal: Denies belching, bloating, change in bowel habits, change in stool character, chewing difficulty, coffee ground emesis, constipation, cramping, diarrhea, dyspepsia, dysphagia, early satiety, excessive flatus, fecalincontinence, heartburn, hematemesis, hematochezia, hemorrhoids, loose stools, melena, nausea, odynophagia, rectal bleeding, tenesmus, vomiting or weight changes Physical Exam Const alert, oriented x3, no apparent distress and healthy appearing General Appearance: cooperative GI normal to inspection, nondistended, normoactive bowel sounds, soft to palpation,non-tender and non-distended Percussion: normal to percussion Rectal Exam: deferred Assessment & Plan Assessment/Plan (1) Bloating: (2) Epigastric pain: (3) Constipation: QUALIFIERS: Constipation type: unspecified constipation type Qualified Code(s): K59.00 - Constipation, unspecified PLAN: Assessment and Plan Assessment and Plan (1) Hemorrhoids: Qualifiers: Hemorrhoid type: unspecified Qualified Code(s): K64.9 - Unspecified hemorrhoids (2) Epigastric pain: Status: Acute (3) Bloating: Status: Acute (4) Constipation: Status: Acute Qualifiers: Constipation type: unspecified constipation type Qualified Code(s): K59.00 - Constipation, unspecified Orders: Orders Abdomen Limited Today K59.00 - Constipation, unspecified, R10.13 - Epigastric pain, R14.0 - Abdominal distension (gaseous) Referrals Gastroenterology K59.00 - Constipation, unspecified, R14.0 - Abdominal distension (gaseous) Medications: New hydrocortisone acetate (Anusol-HC) 25 mg [place] QHS 12 ea 0RF hemorrhoids peg 3350-electrolytes 236-22.74-6.74 -5.86 gram (Golytely) take as directed for split dose bowel prep 240 mL PO Q10M 4,000 mL 0RF pantoprazole take one tablet every morning 30 minutes before breakfast 40 mg PO QDAY 90 tabs 0RF ondansetron HCl 4 mg orally; take two tablets PO two hours prior to start of bowel prep and one every 4 hours as needed for N/V 8 tabs 0RF tenapanor (Ibsrela) must administer immediately before first meal of day/breakfast and dinner 50 mg PO BID 60 tabs 3RF Plan 64-year-old female presents for initial consultation with complaints of constipation, bloating and flatulence. Constipation has been a chronic issue for her and reports straining with a bowel movements with incomplete evacuation despite taking stool softeners daily. She also experiences rectal pain with bowel movements and bright red blood. She reports her last colonoscopy was performed in 2021 or 2022 and revealed large internal and external hemorrhoids. I have prescribed Anusol suppositories. She will start a high-fiber diet with the addition of a daily fiber supplement and increased water intake. I have provided her samples of Ibsrela 50 mg twice daily. She will complete sits marker testing, anorectal manometry and schedule colonoscopy with hemorrhoid banding. Physical exam today was remarkable for epigastric tenderness. She denies any nausea or vomiting, but does endorse experiencing occasional heartburn. I have scheduled her for an abdominal ultrasound as well as EGD. Patient Instructions: Anusol suppositories sent to your pharmacy Start daily fiber supplement Increase daily water intake Start Ibsrela twice a day with meals. Discontinue for completion of Sitz Marker study Colonoscopy with Hemorrhoid banding Complete ABD US We will contact you once Sitz Marker is available for you or your daughter to pick-up Aleks Luna To schedule your Anorectal Manometry please call [facility] at [phone]. [facility] is located at: [facility] [facility], [address] [place] [address] Your provider has ordered an Anorectal Manometry. Anorectal Manometry is a non-invasive procedure that measures the function of the muscles in the anus and rectum. It's used to assess the strength of the muscles, the sensation in the rectum, and the reflexes that control bowel movements. This test can help determine if the muscles are too tight, too loose, or not engaging at the right time. The test is safe and low risk, and is unlikely to cause pain. To prepare for your test, you will need to: - Take two enemas rectally two hours before the procedure - Avoid eating or drinking anything two hours before the procedure - Take regular medications with small sips of water up to two hours before the procedure - Check in at least 15 minutes before the procedure 03/10/25 5410 <Electronically signed by Elier Iyer DO> Cosigner Signature (if applicable): CC: Dr. Eduardo Murcia MD; Elier Iyer DO~ Signed [facility] Work Phone: 1(902) 385-772506-20-2025 Consult note [facility] Medical Records Department [address] [address] Anesthesia Postop Eval I 03/10/25 1405 MR#: [id number] Acct: [id number] Name: MICHELINE FOX Rep #:[id number] 2 : 1960 64 From: Joe Cespedes PCP: Dr. Eduardo Murcia MD Status:REG [facility] Y Race: C Location: [place] [address] Anesthesia: Postop Eval I Current Vital Signs Temperature: 98.8 F Pulse Rate: 74 Blood Pressure: 148/86 Respiratory Rate: 16 Pulse Ox: 95 Oxygen Delivery Method: Room Air Assessment Airway patent: Yes Spontaneous unlabored respirations: Yes Mental status: Awake and Calm nausea: No Vomiting: No Anesthesia Complication: No Fluid Hydration Crystalloid volume administer (ml): 600 Total IV fluid infused: 600 Progress Note Anesthesia document: Postop Eval 1 completed: Yes 03/10/25 1407 > Date _ Joe Dickson Signature: Date CC: ~ Signed [facility]06-20-2025 Procedure note [facility] Medical Records Department [address] [facility] [place] [place] [address] Operative Report - CC Letter MR#: [id number] Acct: [id number] Name: MICHELINE FOX Rep #:[id number] : 1960 64 From: Elier Iyer DO PCP: Dr. Eduardo Murcia MD Status:[facility] 03/10/2025 Eduardo Murcia Re : Colonoscopy procedure for Micheline Fox Dil[place] This procedure was performed on Thursday, March 10, 2025. My impressions and recommendations are as follows: Impressions : - One 5 mm polyp at the recto-sigmoid colon, removed with a cold biopsy forceps. Resected and retrieved. - One 10 mm polyp in the descending colon, removed with a cold snare. Resected and retrieved. - Bleeding external and internal hemorrhoids. Banded. Recommendations : - Repeat colonoscopy in 5 years for surveillance. - Return to GI office in 1 week. - Continue present medications. My findings are described in the full procedure note, which is enclosed. If I can be of further assistance, please feel free to contact me at . Sincerely, Elier Iyer DO 03/10/2025 2:02:43 PM This report has been signed electronically. 03/10/25 1402 Date _ Elier Iyer DO Cosigner Signature: Date (if indicated) CC: Dr. Eduardo Murcia MD; Elier Iyer DO ~ Date Dictated: 03/10/25 1339 Date Transcribed: Comic Book Designer: RF Signed [facility]06-20-2025 Procedure note [facility] Medical Records Department [address] [place] [address] Colonoscopy Report MR#: [id number] Acct: [id number] Name: MICHELINE FOX Rep #:[id number] : 1960 64 From: Elier Iyer DO PCP: Dr. Eduardo Murcia MD Status:[facility] Patient Name: Micheline Fox Procedure Date: 03/10/2025 1:39 PM Date of : 1960 Age: 64 Procedure: Colonoscopy Indications: Screening for colorectal malignant neoplasm Providers: Elier Iyer DO Referring MD: Eduardo Murcia Medicines: Monitored Anesthesia Care Patient Profile: This is a 64 year old female. Refer to note in patient chart for documentation of history and physical. Patient has symptoms of acute epigastric abdominal pain and acute dyspepsia. First Colonoscopy: [Date]. Last Colonoscopy: several years ago. Complications: No immediate complications. Procedure: Pre-Anesthesia Assessment: - Prior to the procedure, a History and Physical was performed, and patient medications and allergies were reviewed. The patient is competent. The risks and benefits of the procedure and the sedation options and risks were discussed with the patient. All questions were answered and informed consent was obtained. Patient identification and proposed procedure were verified by the physician in the pre-procedure area. Mental Status Examination: alert and oriented. Airway Examination: normal oropharyngeal airway and neck mobility. Respiratory Examination: clear to auscultation. CV Examination: normal. Prophylactic Antibiotics: The patient does not require prophylactic antibiotics. Prior Anticoagulants: The patient has taken no anticoagulant or antiplatelet agents except for NSAID medication. ASA Grade Assessment: II - A patient with mild systemic disease. After reviewing the risks and benefits, the patient was deemed in satisfactory condition to undergo the procedure. The anesthesia plan was to use monitored anesthesia care (MAC). Immediately prior to administration of medications, the patient was re-assessed for adequacy to receive sedatives. The heart rate, respiratory rate, oxygen saturations, blood pressure, adequacy of pulmonary ventilation, and response to care were monitored throughout the procedure. The physical status of the patient was re-assessed after the procedure. After I obtained informed consent, the scope was passed under direct vision. Throughout the procedure, the patient's blood pressure, pulse, and oxygen saturations were monitored continuously. The colonoscope was introduced through the anus and advanced to the cecum, identified by appendiceal orifice and ileocecal valve. The colonoscopy was performed without difficulty. The patient tolerated the procedure well. The quality of the bowel preparation was adequate. The ileocecal valve, appendiceal orifice, and rectum were photographed. Scope In: 1:40:29 PM Scope Withdrawal Time 0 hours 12 minutes 8 seconds Scope Out: 1:55:03 PM Total Procedure Duration Time 0 hours 14 minutes 34 seconds Findings: The perianal and digital rectal examinations were normal. A 5 mm polyp was found in the recto-sigmoid colon. The polyp was sessile. The polyp was removed with a cold biopsy forceps. Resection and retrieval were complete. Verification of patient identification for the specimen was done. Estimated blood loss was minimal. A 10 mm polyp was found in the descending colon. The polyp was sessile. The polyp was removed with a cold snare. Resection and retrieval were complete. Verification of patient identification for the specimen was done. Estimated blood loss was minimal. Bleeding external and internal hemorrhoids were found during retroflexion. The hemorrhoids were Grade III (internal hemorrhoids that prolapse but require manual reduction). The endoscope was withdrawn. A hemorrhoid was isolated with anoscopy. The ShortShot ligator was positioned over the hemorrhoid at the left lateral position. Suction was applied and one rubber band was placed over the hemorrhoid. This was checked to make certain that the muscularis was free of the band. Post-banding digital rectal exam showed band in good position. Mild oozing of blood was present. Impression: - One 5 mm polyp at the recto-sigmoid colon, removed with a cold biopsy forceps. Resected and retrieved. - One 10 mm polyp in the descending colon, removed with a cold snare. Resected and retrieved. - Bleeding external and internal hemorrhoids. Banded. Recommendation: - Repeat colonoscopy in 5 years for surveillance. - Return to GI office in 1 week. - Continue present medications. Procedure Code(s): --- Professional --- 56733, Colonoscopy, flexible; with removal of tumor(s), polyp(s), or other lesion(s) by snare technique 37836, 59, Colonoscopy, flexible; with biopsy, single or multiple 05044, Hemorrhoidectomy, internal, by rubber band ligation(s) CPT copyright 2021 [employer]. All rights reserved. The codes documented in this report are preliminary and upon customer relationship specialist review may be revised to meet current compliance requirements. Elier Iyer DO 03/10/2025 2:02:43 PM This report has been signed electronically. Number of Addenda: 0 Note Initiated On: 03/10/2025 1:39 PM 03/10/25 1402 Date _ Elier Iyer DO Cosigner Signature: Date (if indicated) CC: Dr. Eduardo Murcia MD; Elier Iyer DO ~ Date Dictated: 03/10/25 1339 Date Transcribed: Comic Book Designer: RF Signed [facility]06-20-2025 Procedure note [facility] Medical Records Department [address] [place] [address] EGD Report MR#: [id number] Acct: [id number] Name: MICHELINE FOX Rep #:[id number] : 1960 64 From: Elier Iyer DO PCP: Dr. Eduardo Murcia MD Status:REG SDC Patient Name: Micheline Fox Procedure Date: 03/10/2025 1:23 PM Date of : 1960 Age: 64 Procedure: Upper GI endoscopy Indications: Epigastric abdominal pain Providers: Elier Iyer DO Referring MD: Eduardo Murcia Medicines: Monitored Anesthesia Care Patient Profile: This is a 64 year old female. Refer to note in patient chart for documentation of history and physical. Patient has symptoms of acute epigastric abdominal pain and acute dyspepsia. Complications: No immediate complications. Procedure: Pre-Anesthesia Assessment: - Prior to the procedure, a History and Physical was performed, and patient medications and allergies were reviewed. The patient is competent. The risks and benefits of the procedure and the sedation options and risks were discussed with the patient. All questions were answered and informed consent was obtained. Patient identification and proposed procedure were verified by the physician in the pre-procedure area. Mental Status Examination: alert and oriented. Airway Examination: normal oropharyngeal airway and neck mobility. Respiratory Examination: clear to auscultation. CV Examination: normal. Prophylactic Antibiotics: The patient does not require prophylactic antibiotics. Prior Anticoagulants: The patient has taken no anticoagulant or antiplatelet agents except for NSAID medication. ASA Grade Assessment: II - A patient with mild systemic disease. After reviewing the risks and benefits, the patient was deemed in satisfactory condition to undergo the procedure. The anesthesia plan was to use monitored anesthesia care (MAC). Immediately prior to administration of medications, the patient was re-assessed for adequacy to receive sedatives. The heart rate, respiratory rate, oxygen saturations, blood pressure, adequacy of pulmonary ventilation, and response to care were monitored throughout the procedure. The physical status of the patient was re-assessed after the procedure. After obtaining informed consent, the endoscope was passed under direct vision. Throughout the procedure, the patient's blood pressure, pulse, and oxygen saturations were monitored continuously. The colonoscope was introduced through the mouth, and advanced to the fourth part of the duodenum. Small bowel enteroscopy was deemed necessary. The upper GI endoscopy was accomplished without difficulty. The patient tolerated the procedure well. Scope In: 1:34:18 PM Scope Out: 1:38:58 PM Total Procedure Duration Time 0 hours 4 minutes 40 seconds Findings: No gross lesions were noted in the entire esophagus. Patchy mild inflammation characterized by erosions was found in the gastric body. Biopsies were taken with a cold forceps for histology. Verification of patient identification for the specimen was done. Estimated blood loss was minimal. Biopsies were taken with a cold forceps for Helicobacter pylori testing. Verification of patient identification for the specimen was done. Estimated blood loss was minimal. Evidence of a Rob fundoplication was found in the gastric fundus. The wrap appeared not intact. A few localized erosions without bleeding were found in the duodenal bulb. Biopsies were taken with a cold forceps for histology. Verification of patient identification for the specimen was done. Estimated blood loss was minimal. Impression: - No gross lesions in the entire esophagus. - Gastritis. Biopsied. - A Rob fundoplication was found. The wrap appears not intact. - Duodenal erosions without bleeding. Biopsied. Recommendation: - Discharge patient to home. - Resume previous diet. - Continue present medications. - Await pathology results. Procedure Code(s): --- Professional --- 96745, Small intestinal endoscopy, enteroscopy beyond second portion of duodenum, not including ileum; with biopsy, single or multiple CPT copyright 2021 [employer]. All rights reserved. The codes documented in this report are preliminary and upon customer relationship specialist review may be revised to meet current compliance requirements. Elier Iyer DO 03/10/2025 1:59:19 PM This report has been signed electronically. Number of Addenda: 0 Note Initiated On: 03/10/2025 1:23 PM 03/10/25 1359 Date _ Elier Iyer DO Cosigner Signature: Date (if indicated) CC: Dr. Eduardo Murcia MD; Elier Iyer DO ~ Date Dictated: 03/10/253 Date Transcribed: Comic Book Designer: RF Signed [facility]06-20-2025 Procedure note [facility] Medical Records Department [address] [place] [address] Operative Report - CC Letter MR#: [id number] Acct: [id number] Name: MICHELINE FOX Rep #:[id number] 1 : 1960 64 From: Elier Iyer DO PCP: Dr. Eduardo Murcia MD Status:REG [facility] 03/10/2025 Eduardo Murcia Re : Upper GI endoscopy procedure for Micheline Fox Dear This procedure was performed on Monday, March 10, 2025. My impressions and recommendations are as follows: Impressions : - No gross lesions in the entire esophagus. - Gastritis. Biopsied. - A Rob fundoplication was found. The wrap appears not intact. - Duodenal erosions without bleeding. Biopsied. Recommendations : - Discharge patient to home. - Resume previous diet. - Continue present medications. - Await pathology results. My findings are described in the full procedure note, which is enclosed. If I can be of further assistance, please feel free to contact me at . Sincerely, Elier Iyer DO 03/10/2025 1:59:19 PM This report has been signed electronically. 03/10/25 1359 Date _ Elier Elizaldeignheather Signature: Date (if indicated) CC: Dr. Eduardo Murcia MD; Elier Iyer DO ~ Date Dictated: 03/10/25 1323 Date Transcribed: Comic Book Designer: RF Signed [facility]06-20-2025 Consult note [facility] Medical Records Department [address] [place] [address] Pre-Anesthesia Evaluation 03/10/25 1305 MR#: [id number] Acct: [id number] Name: MICHELINE FOX Rep #:[id number] 1 : 1960 64 From: Ajay Peter MD PCP: Dr. Eduardo Murcia MD Status:REG SDC Y Race: C Location: [place] [address] ASA Classification* ASA Classification ASA Classification: 3 Assessment & Plan Anesthesia* Anesthesia Assessment Anesthesia Assessment: Discussed sedation and/or anesthesia options, risks, benefits, and alternatives with patient/parents/legal guardian/POA. Questions invited. The patient/parents/legal guardian/POA seems to understand and agrees to proceedwith anesthesia plan. Reviewed the physical assessment, medical history, allergy history and patient home medications list prior to surgery/procedure/anesthetic and documented any changes. Performed airway and anesthesia risk assessments. Anesthesia Type Anesthesia Type: MAC History Source History Obtained from:: Patient and Chart Anesthesia Focused Assessment* Temperature: 98.4 F Pulse Rate: 74 Blood Pressure: 172/87 Respiratory Rate: 16 Pulse Ox: 94 Oxygen Delivery Method: Room Air Airway Assessment Mouth opens: >3 cm Mallampati Score: III Teeth Condition: Caps/Crowns (Patient has a crown left lower molar. It is tight.), Dentures (Patient has full upper denture. It will come out.) and Missing (Patient is missing back molars bilateral lower jaw.) Neck Range of motion (ROM): Full ROM Labs Anesthesia Preop lab: CBC WBC 7.2 K/mm3 (4.4-11.0) 01/05/25 13:53 01/05/25 RBC 4.56 M/mm3 (4.2-5.4) 01/05/25 13:53 01/05/25 Hgb 13.4 g/dL (12.0-15.0) 01/05/25 13:53 01/05/25 Hct 40.9 % (37-47) 01/05/25 13:53 01/05/25 Plt Count 179 K/mm3 (150-450) 01/05/25 13:53 01/05/25 CHEMISTRY Potassium 4.7 mmol/L (3.3-5.1) 01/05/25 13:53 01/05/25 Sodium 140 mmol/L (133-145) 01/05/25 13:53 01/05/25 Magnesium 2.3 mg/dL (1.6-2.6) 07/11/24 12:47 07/11/24 Phosphorus 3.4 mg/dL (2.5-4.9) 07/11/24 12:47 07/11/24 BUN 27 mg/dL (4-19) H 01/05/25 13:53 01/05/25 Creatinine 1.01 mg/dL (0.70-1.20) 01/05/25 13:53 01/05/25 Glucose 85 mg/dL (70-99) 01/05/25 13:53 01/05/25 POC Glucose 142 mg/dL (74-106) H 07/12/24 11:41 07/12/24 TSH 4.120 uIU/mL (0.358-3.740) H 07/11/24 02:25 COAG Pre-Assessment Diagnosis/Proposed Procedure Planned Operative Procedure(s): Colonoscopy and Egd Anesthesia History Anesthesia History - supervisor tank cleaning: Anesthesia History - supervisor tank cleaning Hx Hospitalization No 02/21/25 10:27 Any Problems With Anesthesia No 02/21/25 10:27 Cholinesterase deficiency No 02/21/25 10:27 You/Your Family Experience No 02/21/25 10:27 fever (hyperthermia) with Relationship Recent Exposure to Contagious No 03/10/25 12:18 Disease Does patient have nerve No 02/21/25 10:27 stimulator Patient instructed to have device shut off --Does patient have Pacemaker No 03/10/25 12:18 or ICD? When Was Last Pacemaker Check QUESTION #4 FULL TEXT: You/Your Family Experience fever (hyperthermia) with Anesthesia Last Oral Intake Last Oral intake: Last Oral Intake NPO since 05:30 03/10/25 12:18 Meds taken in AM with sips of water? Meds patient instructed to take am of surgery Any additional information?: Yes Meds taken in AM with sips of water?: Yes PONV PONV - supervisor tank cleaning: PONV - supervisor tank cleaning Female Yes 02/21/25 10:27 HX of Motion Sickness No 02/21/25 10:27 HX of N/V After Surgery No 02/21/25 10:27 Non-Smoker Yes 02/21/25 10:27 Duration of Surgery greater No 02/21/25 10:27 than 60 minutes Number of Risk Factors 2 02/21/25 10:27 PONV Score Moderate Risk 02/21/25 10:27 Height & Weight Height & Weight: Anesthesia: Height & Weight Height 5 ft 5 in 03/10/25 12:18 Weight: 140.614 kg 03/10/25 12:18 Body Mass Index (BMI) 51.5 03/10/25 12:18 Respiratory Assessment Respiratory Assessment - supervisor tank cleaning: Respiratory Tract Infection Hx - supervisor tank cleaning Hx Respiratory Tract Infection No 02/21/25 10:27 STOP Sleep Apnea STOP Sleep Apnea - supervisor tank cleaning: STOP Sleep Apnea - supervisor tank cleaning Hx Hypertension Yes 02/21/25 10:27 Hx Sleep Apnea Yes 02/21/25 10:27 CPAP No: unable to wear 02/21/25 10:27 BIPAP No 02/21/25 10:27 Do you snore loudly (louder No 02/21/25 10:27 than talking or can be heard Do you often feel tired/ No 02/21/25 10:27 fatigued/ sleepy during daytime? Has anyone observed you stop No 02/21/25 10:27 breathing during sleep? STOP Results Positive 02/21/25 10:27 QUESTION #5 FULL TEXT : Do you snore loudly (louder than talking or can be heard through closeddoors)? 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 Specify any problems Hx of Preganancy in last 3 No 02/21/25 10:27 Months Nurse Filling Out Transfusion [facility] 02/21/25 10:27 & Questions: Date: 02/21/25 02/21/25 10:27 Time: 10:32 02/21/25 10:27 Patient unable to answer at this time (ie. confused, unrespo /Reproduction History /Reproductive History - supervisor tank cleaning: /Reproductive Hx- supervisor tank cleaning Hx Now No 02/21/25 10:27 Gestational Age (in weeks): EDC: Hx Hx Para Hx Section SAB Active Medications Active Medications: Current Medications Generic Name Dose Route Start Last Admin Trade Name Freq PRN Reason Stop Dose Admin Lactated Ringer's 1,000 mls @ 15 mls/hr 03/10/25 12:15 03/10/25 12:22 IV 15 mls/hr .Q48H JENNIFER Administration PFSH Medical History Wears dentures Wears glasses Arthritis Ambulates with cane Cirrhosis Restless legs TIA (transient ischemic attack) Former smoker CPAP (continuous positive airway pressure) dependence Sleep apnea History of echocardiogram History of stress test Hypertension Cardiology follow-up encounter Chronic insomnia History of cirrhosis Obesity (BMI 30-39.9) Sleep apnea Chest pain Atherosclerotic heart disease of [place] coronary artery without angina pectoris Hepatitis C Essential hypertension Home Medications ?Medication ?Instructions ?Recorded ?Last Taken ?Type atorvastatin 40 mg tablet 40 mg PO DAILY cholesterol 1 Unknown History trazodone 100 mg tablet 100 mg PO DAILY mental healt h 07/10/24 Unknown History thiamine HCl (vitamin B1) 100 mg 100 mg PO DAILY #30 t abs 07/13/24 03/10/25 Rx tablet gabapentin 300 mg capsule 300 mg PO QHS 10/18/24 Unkno wn History mirtazapine 15 mg tablet 15 mg PO QHS 10/18/24 Unknow n History hydrocortisone acetate 25 mg 25 mg [place] QHS hemorrhoids #12 ea 12/08/24 Unknown Rx rectal suppository (Anusol-HC) propranolol 40 mg tablet 60 mg PO BID blood pressure 12/08/24 03/10/25 History sennosides 8.6 mg-docusate sodium 1 tab-cap PO BID PRN constipation 12/08/24 Unknown History 50 mg tablet (Senna Plus) tenapanor 50 mg tablet (Ibsrela) 50 mg PO BID #60 tabs 12/08/24 Unknown Rx venlafaxine 150 mg tablet,extended 75 mg PO QDAY 12/0803/10/25 History release 24 hr peg 3350-electrolytes 236 240 ml PO Q10M #4,000 mL Unknown Rx gram-22.74 gram-6.74 gram-5.86 gram solution (Golytely) tirzepatide (weight loss) 2.5 2.5 mg subcut QWEEK 12/1302/20/25 History mg/0.5 mL subcutaneous solution (Zepbound) Allergy/AdvReac Type Severity Reaction Status Date / Time codeine Allergy Unknown Verified 03/10/25 12:16 latex Allergy Hives Verified 03/10/25 12:16 Penicillins Allergy Unknown Verified 03/10/25 12:16 Family History Father CAD (coronary artery disease) Myocardial infarction History of coronary artery bypass surgery Grandmother Cardiac pacemaker in situ Mother Hypertension Surgical History History of left heart catheterization (LHC) (~07/08/19) History of lumbar spinal fusion History of herniorrhaphy History of hysterectomy History of appendectomy History of cholecystectomy History of bariatric surgery Social History housing: [facility] Smoking Status: Former smoker alcohol intake: former details: occasional substance use type: does not use caffeine: Yes Type: carbonated beverages Number of servings: 1 and coffee Review of Systems (Anesthesia) ROS Narrative System reviewed and no additional complaints, except as documented. 03/10/25 1312 vivienne CHUNG> Date _ Ajay Peter MD Cosigner Signature: Date CC: ~ Signed [facility]06-20-2025 History and physical note [facility] Medical Records Department [address] [place] [address] History & Physical Exam 03/10/25 1206 MR#: [id number] Acct: [id number] Name: MICHELINE FOX Rep #:[id number] 1 : 1960 64 From: [facility] Friend PCP: Dr. Eduardo Murcia MD Status:[facility] Location: [place] [address] HPI - General General Date of Admission: 03/10/25 Date of Service: 03/10/25 Chief Complaint: Bloating, flatulence, constipation HPI Narrative MICHELINE FOX, is a 64 F who presents HPI Chief Complaint: Establish Care Details: MICHELINE FOX, is a 64 F who presents to the office today for - prior colonoscopy in 2021 or 2022 - she reports she has such terrible internal and external hemorrhoids and was told she needed surgery and is ready to schedule this - c/o bloating, flatulence, constipation - straining with BM - she is taking Stool Softener 2 BID - lately she has been having a small stool every day - c/o rectal pain only with a BM - c/o weight gain - she is seeing blood in toilet water and on tissue - has urge to have a BM but is unable to evacuate stool - applies perineal pressure assists with elimination of stool - h/o hysterectomy in - vaginal deliveries - failed Linzess in the past - has never been on Trulance, Amitiza, or Ibsrela - failed Miralax - it did nothing B: banana and PB or a muffin or yogurt L: skips or dinner left overs or ham/turkey wrap D: protein starch - does not get enough vegetables - reports her water intake is not great - feels so bloated she does to want to drink much water - she denies any heart, lung or kidney disease - she has a fiber supplement - not yet started - occasional HB - denies any nausea - h/o bariatric surgery PFSH Medical History Wears dentures Wears glasses Arthritis Ambulates with cane Cirrhosis Restless legs TIA (transient ischemic attack) Former smoker CPAP (continuous positive airway pressure) dependence Sleep apnea History of echocardiogram History of stress test Hypertension Cardiology follow-up encounter Chronic insomnia History of cirrhosis Obesity (BMI 30-39.9) Sleep apnea Chest pain Atherosclerotic heart disease of [place] coronary artery without angina pectoris Hepatitis C Essential hypertension Home Medications ?Medication ?Instructions ?Recorded ?Last Taken ?Type atorvastatin 40 mg tablet 40 mg PO DAILY cholesterol 1 Unknown History trazodone 100 mg tablet 100 mg PO DAILY mental healt h 07/10/24 Unknown History thiamine HCl (vitamin B1) 100 mg 100 mg PO DAILY #30 t abs 07/13/24 Unknown Rx tablet gabapentin 300 mg capsule 300 mg PO QHS 10/18/24 Unkno wn History mirtazapine 15 mg tablet 15 mg PO QHS 10/18/24 Unknow n History hydrocortisone acetate 25 mg 25 mg [place] QHS hemorrhoids #12 ea 12/08/24 Unknown Rx rectal suppository (Anusol-HC) propranolol 40 mg tablet 60 mg PO BID blood pressure 12/08/24 Unknown History sennosides 8.6 mg-docusate sodium 1 tab-cap PO BID PRN constipation 12/08/24 Unknown History 50 mg tablet (Senna Plus) tenapanor 50 mg tablet (Ibsrela) 50 mg PO BID #60 tabs 12/08/24 Unknown Rx venlafaxine 150 mg tablet,extended 75 mg PO QDAY 12/08 Unknown History release 24 hr peg 3350-electrolytes 236 240 ml PO Q10M #4,000 mL Unknown Rx gram-22.74 gram-6.74 gram-5.86 gram solution (Golytely) tirzepatide (weight loss) 2.5 2.5 mg subcut QWEEK 0612/1302/20/25 History mg/0.5 mL subcutaneous solution (Zepbound) Allergy/AdvReac Type Severity Reaction Status Date / Time codeine Allergy Unknown Verified 02/21/25 10:23 latex Allergy Hives Verified 02/21/25 10:23 Penicillins Allergy Unknown Verified 02/21/25 10:23 Family History Father CAD (coronary artery disease) Myocardial infarction History of coronary artery bypass surgery Grandmother Cardiac pacemaker in situ Mother Hypertension Surgical History History of left heart catheterization (LHC) (~07/08/19) History of lumbar spinal fusion History of herniorrhaphy History of hysterectomy History of appendectomy History of cholecystectomy History of bariatric surgery Social History housing: [facility] Smoking Status: Former smoker alcohol intake: former details: occasional substance use type: does not use caffeine: Yes Type: carbonated beverages Number of servings: 1 and coffee ROS Constitutional Constitutional: Denies fatigue, fever(s), poor appetite, weight gain or weight loss Gastrointestinal Gastrointestinal: Denies belching, bloating, change in bowel habits, change in stool character, chewing difficulty, coffee ground emesis, constipation, cramping, diarrhea, dyspepsia, dysphagia, earlysatiety, excessive flatus, fecalincontinence, heartburn, hematemesis, hematochezia, hemorrhoids, loose stools, melena, nausea, odynophagia, rectal bleeding, tenesmus, vomiting or weight changes Physical Exam Const alert, oriented x3, no apparent distress and healthy appearing General Appearance: cooperative GI normal to inspection, nondistended, normoactive bowel sounds, soft to palpation,non-tender and non-distended Percussion: normal to percussion Rectal Exam: deferred Assessment & Plan Assessment/Plan (1) Bloating: (2) Epigastric pain: (3) Constipation: QUALIFIERS: Constipation type: unspecified constipation type Qualified Code(s): K59.00 - Constipation, unspecified PLAN: Assessment and Plan Assessment and Plan (1) Hemorrhoids: Qualifiers: Hemorrhoid type: unspecified Qualified Code(s): K64.9 - Unspecified hemorrhoids (2) Epigastric pain: Status: Acute (3) Bloating: Status: Acute (4) Constipation: Status: Acute Qualifiers: Constipation type: unspecified constipation type Qualified Code(s): K59.00 - Constipation, unspecified Orders: Orders Abdomen Limited Today K59.00 - Constipation, unspecified, R10.13 - Epigastric pain, R14.0 - Abdominal distension (gaseous) Referrals Gastroenterology K59.00 - Constipation, unspecified, R14.0 - Abdominal distension (gaseous) Medications: New hydrocortisone acetate (Anusol-HC) 25 mg W[place] QHS 12 ea 0RF hemorrhoids peg 3350-electrolytes 236-22.74-6.74 -5.86 gram (Golytely) take as directed for split dose bowel prep 240 mL PO Q10M 4,000 mL 0RF pantoprazole take one tablet every morning 30 minutes before breakfast 40 mg PO QDAY 90 tabs 0RF ondansetron HCl 4 mg orally; take two tablets PO two hours prior to start of bowel prep and one every 4 hours as needed for N/V 8 tabs 0RF tenapanor (Ibsrela) must administer immediately before first meal of day/breakfast and dinner 50 mg PO BID 60 tabs 3RF Plan 64-year-old female presents for initial consultation with complaints of constipation, bloating and flatulence. Constipation has been a chronic issue for her and reports straining with a bowel movements with incomplete evacuation despite taking stool softeners daily. She also experiences rectal painwith bowel movements and bright red blood. She reports her last colonoscopy was performed in 2021 or 2022 and revealed large internal and external hemorrhoids. I have prescribed Anusol suppositories.She will start a high-fiber diet with the addition of a daily fiber supplement and increased water intake. I have provided her samples of Ibsrela 50 mg twice daily. She will complete sits marker testi ng, anorectal manometry and schedule colonoscopy with hemorrhoid banding. Physical exam today was remarkable for epigastric tenderness. She denies any nausea or vomiting, but does endorse experiencing occasional heartburn. I have scheduled her for an abdominal ultrasound as well as EGD. Patient Instructions: Anusol suppositories sent to your pharmacy Start daily fiber supplement Increase daily water intake Start Ibsrela twice a day with meals. Discontinue for completion of Sitz Marker study Colonoscopy with Hemorrhoid banding Complete ABD US We will contact you once Sitz Marker is available for you or your daughter to pick-up Aleks Luna To schedule your Anorectal Manometry please call [facility] at [phone]. [facility] is located at: [address], [address] [place], [place] [address] Your provider has ordered an Anorectal Manometry. Anorectal Manometry is a non- invasive procedure that measures the function of the muscles in the anus and rectum. It's used to assess the strength ofthe muscles, the sensation in the rectum, and the reflexes that control bowel movements. This test can help determine if the muscles are too tight, too loose, or not engaging at the right time. The test is safe and low risk, and is unlikely to cause pain. To prepare for your test, you will need to: - Take two enemas rectally two hours before the procedure - Avoid eating or drinking anything two hours before the procedure - Take regular medications with small sips of water up to two hours before the procedure - Check in at least 15 minutes before the procedure 03/10/25 1209 Cosigner Signature (if applicable): CC: Dr. Eduardo Murcia MD; Elier Iyer DO~ Signed [facility]06-20-2025 [facility] Medical Records Department [address] [place] [address] History Physical Exam 03/10/25 1206 MR#: [id number] Acct: [id number] Name: MICHELINE FOX Rep #: [id number] : 1960 64 From: Elier Iyer DO PCP: Dr. Eduardo Murcia MD Status:[facility] Location: [place] [address] HPI - General General Date of Admission: 03/10/25 Date of Service: 03/10/25 Chief Complaint: Bloating, flatulence, constipation HPI Narrative MICHELINE FOX, is a 64 F who presents HPI Chief Complaint: Establish Care Details: MICHELINE FOX, is a 64 F who presents to the office today for - prior colonoscopy in 2021 or 2022 - she reports she has such terrible internal and external hemorrhoids and was told she needed surgery and is ready to schedule this - c/o bloating, flatulence, constipation - straining with BM - she is taking Stool Softener 2 BID - lately she has been having a small stool every day - c/o rectal pain only with a BM - c/o weight gain - she is seeing blood in toilet water and on tissue - has urge to have a BM but is unable to evacuate stool - applies perineal pressure assists with elimination of stool - h/o hysterectomy in - vaginal deliveries - failed Linzess in the past - has never been on Trulance, Amitiza, or Ibsrela - failed Miralax - it did nothing B: banana and PB or a muffin or yogurt L: skips or dinner left overs or ham/turkey wrap D: protein starch - does not get enough vegetables - reports her water intake is not great - feels so bloated she does to want to drink much water - she denies any heart, lung or kidney disease - she has a fiber supplement - not yet started - occasional HB - denies any nausea - h/o bariatric surgery PFSH Medical History Wears dentures Wears glasses Arthritis Ambulates with cane Cirrhosis Restless legs TIA (transient ischemic attack) Former smoker CPAP (continuous positive airway pressure) dependence Sleep apnea History of echocardiogram History of stress test Hypertension Cardiology follow-up encounter Chronic insomnia History of cirrhosis Obesity (BMI 30-39.9) Sleep apnea Chest pain Atherosclerotic heart disease of [place] coronary artery without angina pectoris Hepatitis C Essential hypertension Home Medications ???Medication ???Instructions ???Recorded ???Last Taken ???Type atorvastatin 40 mg tablet 40 mg PO DAILY cholesterol 4 Unknown History trazodone 100 mg tablet 100 mg PO DAILY mental health 06/22 Unknown History thiamine HCl (vitamin B1) 100 mg 100 mg PO DAILY #30 tabs 07/13/24 Unknown Rx tablet gabapentin 300 mg capsule 300 mg PO QHS 10/18/24 Unknown His tory mirtazapine 15 mg tablet 15 mg PO QHS 10/18/24 Unknown Hist ory hydrocortisone acetate 25 mg 25 mg [place] QHS hemorrhoids #12 ea Unknown Rx rectal suppository (Anusol-HC) propranolol 40 mg tablet 60 mg PO BID blood pressure Unknown History sennosides 8.6 mg-docusate sodium 1 tab-cap PO BID PRN constipation 12/08/24 Unknown History 50 mg tablet (Senna Plus) tenapanor 50 mg tablet (Ibsrela) 50 mg PO BID #60 tabs 12/08/24 Unk nown Rx venlafaxine 150 mg tablet,extended 75 mg PO QDAY 12/08/24 Unknown H istory release 24 hr peg 3350-electrolytes 236 240 ml PO Q10M #4,000 mL 02/15/25 Unknown Rx gram-22.74 gram-6.74 gram-5.86 gram solution (Golytely) tirzepatide (weight loss) 2.5 2.5 mg subcut QWEEK 02/21/2502/20 History mg/0.5 mL subcutaneous solution (Zepbound) Allergy/AdvReac Type Severity Reaction Status Date / Time codeine Allergy Unknown Verified 02/21/25 10:23 latex Allergy Hives Verified 02/21/25 10:23 Penicillins Allergy Unknown Verified 02/21/25 10:23 Family History Father CAD (coronary artery disease) Myocardial infarction History of coronary artery bypass surgery Grandmother Cardiac pacemaker in situ Mother Hypertension Surgical History History of left heart catheterization (LHC) ( 07/08/19) History of lumbar spinal fusion History of herniorrhaphy History of hysterectomy History of appendectomy History of cholecystectomy History of bariatric surgery Social History housing: [facility] Smoking Status: Former smoker alcohol intake: former details: occasional substance use type: does not use caffeine: Yes Type: carbonated beverages Number of servings: 1 and coffee ROS Constitutional Constitutional: Denies fatigue, fever(s), poor appetite, weight gain or weight loss Gastrointestinal Gastrointestinal: Denies belching, bloati (more content not included)...[facility]05-14-2025 Evaluation + Plan note* Assessment & Plan Note - Eduardo Murcia DO - 02/01/2025 12:20 PM EDTAssociated Problem(s): Mixed hyperlipidemia - We will check her cholesterol once a year Orders: atorvastatin (Lipitor) 40 mg tablet; Take 1 tablet (40 mg) by mouth once daily. [facility] Work Phone: [phone] 661-430205-14-2025 Evaluation + Plan note* Assessment & Plan Note - Eduardo Murcia DO - 02/01/2025 12:20 PM EDTAssociated Problem(s): Vitamin D deficiency - She has historically had low vitamin D levels so we will check a vitamin D level tomorrow and have agreed to contact her with results Orders: Vitamin D 25-Hydroxy,Total (for eval of Vitamin D levels); Future Patient instructions As we discussed I have ordered lab work to assess your health and please try to go tomorrow to get those done. We want you to go fasting. Once the results are known I will contact you We also sent refills on all of your medications Please remember to bring a copy of your living will and power of real estate associate attorney for healthcare We will try to track down your mammogram and if you not had it yet we will order 1 If you change your mind about going to the weight loss clinic please let us know [facility] Work Phone: [phone] 721-366505-14-2025 Evaluation + Plan note* Assessment & Plan Note - Eduardo Murcia DO - 02/01/2025 12:20 PM EDTAssociated Problem(s): Hyperglycemia - We will check a hemoglobin A1c and have agreed to contact her with results Orders: Hemoglobin A1C; Future [facility] Work Phone: [phone] Evaluation + Plan note* Assessment & Plan Note - Eduardo Murcia DO - 02/01/2025 12:20 PM EDTAssociated Problem(s): Class 3 severe obesity due to excess calories with serious comorbidity and june dy mass index (BMI) of 50.0 to 59.9 in adult - Again we talked about a referral to the weight loss clinic and she will call if she changes her mind -She has had bariatric weight loss surgery in the in [place] -She does not want to attempt the semaglutide's because she is confident and will not be covered byher plan -We discussed seeing a boring machine set up operator but she declines for now [facility] Work Phone: [phone] 322-134205-14-2025 Evaluation + Plan note* Assessment & Plan Note - Eduardo Murcia DO - 02/01/2025 12:20 PM EDTAssociated Problem(s): Moderate episode of recurrent major depressive disorder - We determined that she is doing adequately on her current medical regimen and we will continue tomonitor Orders: venlafaxine (Effexor) 75 mg tablet; Take 1 tablet (75 mg) by mouth 2 times a day. [facility] Work Phone: [phone] 511-152105-14-2025 Evaluation + Plan note* Assessment & Plan Note - Eduardo Murcia DO - 02/01/2025 12:20 PM EDTAssociated Problem(s): 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, psy chotic disturbance, mood disturbance, or anxiety (Multi) - Her memory loss is mild to moderate but she has plenty of assistance from a close friend and her daughter [facility] Work Phone: [phone] Evaluation + Plan note* Assessment & Plan Note - Eduardo Murcia DO - 02/01/2025 12:20 PM EDTAssociated Problem(s): KELLY (obstructive sleep apnea) - She does not use CPAP therapy and we discussed the importance of using therapy in the past [facility] Work Phone: [phone] Evaluation + Plan note* Assessment & Plan Note - Eduardo Murcia DO - 02/01/2025 12:20 PM EDTAssociated Problem(s): Other fatigue - We will be checking a CBC for safe measure and have agreed to contact her with results Orders: Comprehensive Metabolic Panel; Future CBC and Auto Differential; Future TSH; Future [facility] Work Phone: [phone] Evaluation + Plan note* Assessment & Plan Note - Eduardo Murcia DO - 02/01/2025 12:20 PM EDTAssociated Problem(s): Current moderate episode of major depressive disorder without prior episode ( Multi) (Resolved 02/01/2025) Orders: mirtazapine (Remeron) 15 mg tablet; Take 1 tablet (15 mg) by mouth once daily at bedtime. [facility] Work Phone: [phone] Evaluation + Plan note* Assessment & Plan Note - Eduardo Murcia DO - 02/01/2025 12:20 PM EDTAssociated Problem(s): Primary insomnia Orders: gabapentin (Neurontin) 300 mg capsule; Take 1 capsule (300 mg) by mouth once daily at bedtime. traZODone (Desyrel) 100 mg tablet; Take 2 tablets (200 mg) by mouth once daily at bedtime. [facility] Work Phone: [phone] 475-186005-14-2025 Evaluation + Plan note* Assessment & Plan Note - Eduardo Murcia DO - 02/01/2025 12:20 PM EDTAssociated Problem(s): ASHD (arteriosclerotic heart disease) Orders: propranolol (Inderal) 60 mg tablet; Take 1 tablet (60 mg) by mouth 2 times a day. T [facility] Work Phone: [phone] History of Present illness Narrative* Eduardo Murcia DO - 02/01/2025 12:20 PM EDT Subjective Reason for Visit: Micheline Fox is an 64 y.o. female here for a Medicare Wellness visit. Past Medical, Surgical, and Family History reviewed and updated in chart. Reviewed all medications by prescribing practitioner or clinical pharmacist (such as prescriptions,OTCs, herbal therapies and supplements) and documented in the medical record. HPI She is here today for her general checkup. She has been on Medicare for 2 years but she is not aware of ever having a Medicare wellness visit. We decided to get it done today. She states that her depression has been pretty good except in recent times she has been frustrated about her weight. We arereminded that she had bariatric weight loss surgery back in 1989 in [facility]. She states she had a lot of complications after that surgery including several hernia surgeries. We also discussed the new semaglutide's but she is confident that I will not be covered by her insurance. We talked about a referral to the weight loss clinic at [facility] but she states that for now she is not interested. She knows if she changes her mind she can call us. We also discussed seeing a boring machine set up operator but she declines for now. She states her diet is not well-balanced as she enjoys eating lots of peanut butter and bananas. Again I am here to help her and if she changes her mind about a weightloss consultation she will let us know. She also was having frequent falls but thankfully since returning home from the nursing facility 3 months ago she has not fallen. She states she has been using her walker and she has a friend that stays with her to help her get around. She also has a daughter that helps her and also helps her with banking and so forth. She has had challenges with her memory which we are aware of. We discussed the importance of exercise and I have specifically recommended she do chair exercises while watching television. She is also completed her advance directives and has agreed to provide a copy for her chart here. She continues to have digestive issues and was seen and evaluated by forensic specialist in [place],Dr. Iyer. She states he has provided medication and they are adjusting it at this time. We also discussed cancer screening and according to our records she is due for screening mammogram.She is pretty confident that she had one recently [facility] and we will try to track thatdown. We also had intended for her to get lab work which we determined has not been done for some time. She has agreed to go tomorrow fasting and I have agreed to contact her with results. We are also giving her refills on medications. I will summarize everything in a problem based format. Patient Care Team: Eduardo Murcia DO as PCP - General (Internal Medicine) Review of Systems Constitutional: Positive for fatigue. Respiratory: Negative for shortness of breath and wheezing. Occ cough Cardiovascular: Negative for chest pain and palpitations. Swelling with prolonged sitting Gastrointestinal: Positive for diarrhea. Negative for abdominal pain, blood in stool, nausea and vomiting. Objective Vitals: BP 136/82 Pulse 73 Ht 1.651 m (5' 5) Wt 145 kg (319 lb 3.2 oz) SpO2 95% BMI 53.12 kg/m Physical Exam Vitals and nursing note reviewed. [...] place, and time. Psychiatric: Behavior: Behavior normal. No results found for this or any previous visit (from the past 8 weeks). Assessment & Plan Current moderate episode of major depressive disorder without prior episode (Multi) Orders: mirtazapine (Remeron) 15 mg tablet; Take 1 tablet (15 mg) by mouth once daily at bedtime. Other fatigue - We will be checking a CBC for safe measure and have agreed to contact her with results Orders: Comprehensive Metabolic Panel; Future CBC and Auto Differential; Future TSH; Future 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, psychotic disturbance, mood disturbance, or anxiety (Multi) - Her memory loss is mild to moderate but she has plenty of assistance from a close friend and her daughter Class 3 severe obesity due to excess calories with serious comorbidity and body mass index (BMI) of50.0 to 59.9 in adult - Again we talked about a referral to the weight loss clinic and she will call if she changes her mind -She has had bariatric weight loss surgery in the in [place] -She does not want to attempt the semaglutide's because she is confident and will not be covered byher plan -We discussed seeing a boring machine set up operator but she declines for now KELLY (obstructive sleep apnea) - She does not use CPAP therapy and we discussed the importance of using therapy in the past Hyperglycemia - We will check a hemoglobin A1c and have agreed to contact her with results Orders: Hemoglobin A1C; Future Mixed hyperlipidemia - We will check her cholesterol once a year Orders: atorvastatin (Lipitor) 40 mg tablet; Take 1 tablet (40 mg) by mouth once daily. Primary insomnia Orders: gabapentin (Neurontin) 300 mg capsule; Take 1 capsule (300 mg) by mouth once daily at bedtime. traZODone (Desyrel) 100 mg tablet; Take 2 tablets (200 mg) by mouth once daily at bedtime. ASHD (arteriosclerotic heart disease) Orders: propranolol (Inderal) 60 mg tablet; Take 1 tablet (60 mg) by mouth 2 times a day. Moderate episode of recurrent major depressive disorder - We determined that she is doing adequately on her current medical regimen and we will continue tomonitor Orders: venlafaxine (Effexor) 75 mg tablet; Take 1 tablet (75 mg) by mouth 2 times a day. Vitamin D deficiency - She has historically had low vitamin D levels so we will check a vitamin D level tomorrow and have agreed to contact her with results Orders: Vitamin D 25-Hydroxy,Total (for eval of Vitamin D levels); Future Patient instructions As we discussed I have ordered lab work to assess your health and please try to go tomorrow to get those done. We want you to go fasting. Once the results are known I will contact you We also sent refills on all of your medications Please remember to bring a copy of your living will and power of real estate associate attorney for healthcare We will try to track down your mammogram and if you not had it yet we will order 1 If you change your mind about going to the weight loss clinic please let us know documented in this [facility] Work Phone: [phone] 221-917405-14-2025 Instructions* Patient Instructions* Eduardo Murcia DO - 02/01/2025 12:20 PM EDT Patient instructions As we discussed I have ordered lab work to assess your health and please try to go tomorrow to get those done. We want you to go fasting. Once the results are known I will contact you We also sent refills on all of your medications Please remember to bring a copy of your living will and power of real estate associate attorney for healthcare We will try to track down your mammogram and if you not had it yet we will order 1 If you change your mind about going to the weight loss clinic please let us know documented in this [facility] Work Phone: [phone] 335-866705-14-2025 Miscellaneous Notes* Assessment & Plan Note - Eduardo Murcia DO - 02/01/2025 12:20 PM EDTAssociated Problem(s): Mixed hyperlipidemia - We will check her cholesterol once a year Orders: atorvastatin (Lipitor) 40 mg tablet; Take 1 tablet (40 mg) by mouth once daily. * Assessment & Plan Note - Eduardo Murcia DO - 02/01/2025 12:20 PM EDT Associated Problem(s): Vitamin D deficiency - She has historically had low vitamin D levels so we will check a vitamin D level tomorrow and have agreed to contact her with results Orders: Vitamin D 25-Hydroxy,Total (for eval of Vitamin D levels); Future Patient instructions As we discussed I have ordered lab work to assess your health and please try to go tomorrow to get those done. We want you to go fasting. Once the results are known I will contact you We also sent refills on all of your medications Please remember to bring a copy of your living will and power of real estate associate attorney for healthcare We will try to track down your mammogram and if you not had it yet we will order 1 If you change your mind about going to the weight loss clinic please let us know * Assessment & Plan Note - Eduardo Murcia DO - 02/01/2025 12:20 PM EDT Associated Problem(s): Hyperglycemia - We will check a hemoglobin A1c and have agreed to contact her with results Orders: Hemoglobin A1C; Future * Assessment & Plan Note - Eduardo Murcia DO - 02/01/2025 12:20 PM EDT Associated Problem(s): Class 3 severe obesity due to excess calories with serious comorbidity and body mass index (BMI) of 50.0 to 59.9 in adult - Again we talked about a referral to the weight loss clinic and she will call if she changes her mind -She has had bariatric weight loss surgery in the in [place] -She does not want to attempt the semaglutide's because she is confident and will not be covered byher plan -We discussed seeing a boring machine set up operator but she declines for now * Assessment & Plan Note - Eduardo Murcia DO - 02/01/2025 12:20 PM EDT Associated Problem(s): Moderate episode of recurrent major depressive disorder - We determined that she is doing adequately on her current medical regimen and we will continue tomonitor Orders: venlafaxine (Effexor) 75 mg tablet; Take 1 tablet (75 mg) by mouth 2 times a day. * Assessment & Plan Note - Eduardo Murcia DO - 02/01/2025 12:20 PM EDT Associated Problem(s): 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, psychotic disturbance, mood disturbance, or anxiety (Multi) - Her memory loss is mild to moderate but she has plenty of assistance from a close friend and her daughter * Assessment & Plan Note - Eduardo Murcia DO - 02/01/2025 12:20 PM EDT Associated Problem(s): KELLY (obstructive sleep apnea) - She does not use CPAP therapy and we discussed the importance of using therapy in the past * Assessment & Plan Note - Eduardo Murcia DO - 02/01/2025 12:20 PM EDT Associated Problem(s): Other fatigue - We will be checking a CBC for safe measure and have agreed to contact her with results Orders: Comprehensive Metabolic Panel; Future CBC and Auto Differential; Future TSH; Future * Assessment & Plan Note - Eduardo Murcia DO - 02/01/2025 12:20 PM EDT Associated Problem(s): Current moderate episode of major depressive disorder without prior episode (Multi) (Resolved 02/01/2025) Orders: mirtazapine (Remeron) 15 mg tablet; Take 1 tablet (15 mg) by mouth once daily at bedtime. * Assessment & Plan Note - Eduardo Murcia DO - 02/01/2025 12:20 PM EDT Associated Problem(s): Primary insomnia Orders: gabapentin (Neurontin) 300 mg capsule; Take 1 capsule (300 mg) by mouth once daily at bedtime. traZODone (Desyrel) 100 mg tablet; Take 2 tablets (200 mg) by mouth once daily at bedtime. * Assessment & Plan Note - Eduardo Murcia DO - 02/01/2025 12:20 PM EDT Associated Problem(s): ASHD (arteriosclerotic heart disease) Orders: propranolol (Inderal) 60 mg tablet; Take 1 tablet (60 mg) by mouth 2 times a day. documented in this [facility] Work Phone: [phone]) 121-731805-02-2025 Radiology Diagnostic study note [facility] Imaging Services [address] [address] Abdomen Single View MR#: [id number] Acct: [id number] Name: MICHELINE FOX Rep #: [id number] 1 : 1960 F 64 From: Mango Giron MD PCP: Dr. Eduardo Murcia MD Status: REG CLI Study:Abdomen Single View Date of Exam: 01/19/25 Exam# [id number] Ordering Dr: Vaishnavi Whitt PROCEDURE: ABDOMEN SINGLE VIEW 01/19/2025 REASON FOR EXAM: DAY 5 SITZ MARKER TECHNIQUE: Single view abdomen. 3 total images to include the entire abdomen and pelvis COMPARISON: 01/17/2025 FINDINGS: No marker is identified. Bowel gas pattern appears within limits. Surgical clips left lower quadrant, cholecystectomy, postsurgical changes left upper quadrant and intervertebral disc spacer L4-5 again noted. RAD/Abdomen Single View IMPRESSION: No markers remain currently. Reading Location: [id number] CC: DRILL RUNNER HELPER-Stacia Whitt; Dr. Eduardo Murcia MD ~ Comic Book Designer: Signed [facility]04-29-2025 Radiology Diagnostic study note [facility] Imaging Services [address] [place] [address] Abdomen Single View MR#: [id number] Acct: [id number] Name: MICHELINE FOX Rep #: [id number] 8 : 1960 F 64 From: Gal Kelly MD PCP: Dr. Eduardo Murcia MD Status: REG CLI Study:Abdomen Single View Date of Exam: 01/17/25 Exam# [id number] Ordering Dr: Vaishnavi Whitt PROCEDURE: ABDOMEN SINGLE VIEW 01/17/2025 REASON FOR EXAM: DAY 3 SITZ MARKER TECHNIQUE: Single view abdomen. FINDINGS: Bowel gas: Bowel gas pattern is normal. No evidence of bowel obstruction. Calcifications: No suspicious calcifications. Status post cholecystectomy. Bones: The bones are unremarkable. Other: 3 days after the administration of sitzmarks radiopaque markers demonstrates 3 remaining markers consistent with normal colonic transit. RAD/Abdomen Single View IMPRESSION: Normal colonic transit. Reading Location: [id number] CC: DRILL RUNNER HELPER-Stacia Whitt; Dr. Eduardo Murcia MD ~ Comic Book Designer: Signed [facility]04-07-2025 NoteOPG [address] [facility] [address] [facility] [id number] Chief Complaint Patient presents with Left Knee - Pain Poor historian on medication list, unable to provide list. Right Knee - Pain Micheline Fox returns to the office today for bilateral knee pain. I had seen her in the past and injected the left knee. She reports no injury to either knee at today's visit. She has been having pain for the past couple of years. She reports that Tylenol just is not helping with her pain. She states that she has some other health issues going on. She does have a history of falls which they are investigating could be neurological. She knows she needs surgery and both knees replaced however with everything else she is going on she is not ready to move forward with any type of replacement surgery. She is also dealing with some lumbar back issues as well. She is not seeing pain management. She reports both knees are about the same. She is utilizing a walker for ambulation. The patient's past medical history, surgical history, social history, family history, medications and allergies were reviewed with the patient today and are available in the chart for further review. Allergies[1] Current Medications[2] Past Medical History: Diagnosis Date Arthritis Asthma Cirrhosis (HCC) Hepatitis C History of cardiac cath 07/01/2019 Hypertension PONV (postoperative nausea and vomiting) most recent Sleep apnea, obstructive Does not use machine Past Surgical History: Procedure Laterality Date BACK SURGERY 2000 Hardware L4-5 CARDIAC CATHETERIZATION 04/2015 CHOLECYSTECTOMY COLONOSCOPY N/A 07/29/2019 Procedure: COLONOSCOPY; Surgeon: Joe Colón MD; Location: [facility] Endo; Service: Gastroenterology EGD N/A 07/29/2019 Procedure: ESOPHAGOGASTRODUODENOSCOPY; Surgeon: Joe Colón MD; Location: [facility] Endo; Service: Gastroenterology ESOPHAGOGASTRODUODENOSCOPY 11/13/2020 [facility] GA[facility]PASS 1996 HC LEFT HEART CATH N/A 07/08/2019 Procedure: Left Heart Cath; Surgeon: Hari Acosta MD; Location: [facility]; Service: Cardiovascular HEEL SPUR RESECTION Right 11/14/2020 Procedure: EXCISION HEEL SPUR RIGHT FOOT C-ARM; Surgeon: Digna Reagan DPM; Location: Main OR; Service: Podiatry HERNIA REPAIR 07/16/2016 [facility] HYSTERECTOMY 1988 NECK SURGERY 2000 C 4-5 TONSILLECTOMY Social History[3] ROS: Review of Systems Musculoskeletal: Positive for arthralgias, gait problem, joint swelling and myalgias. PE: Physical Exam Musculoskeletal: Right knee: Effusion present. Left knee: Effusion present. ORTHO: Right Knee Exam Tenderness The patient is experiencing tenderness in the medial joint line and lateral joint line. Range of Motion Extension: -5 Flexion: 100 Tests Varus: negative Valgus: negative Other Erythema: absent Scars: absent Sensation: normal Pulse: present Swelling: mild Effusion: effusion present Left Knee Exam Tenderness The patient is experiencing tenderness in the lateral joint line and medial joint line. Range of Motion Extension: -5 Flexion: 90 Tests Varus: negative Valgus: negative Other Erythema: absent Scars: absent Sensation: normal Pulse: present Swelling: mild Effusion: effusion present Imaging: Bilateral knees: No acute fracture or dislocation. Moderate tricompartmental degenerative changes, bilaterally. Small to moderate joint effusions, bilaterally. Assessment/Plan: After examination and reviewing of the patient x-ray images we discussed treatment options for the knees. I did offer her injections which she gladly excepted. I did this without complications and she tolerated this well. She is able to have these every 3 months if they provide her with any additional pain relief. I also suggested that she contact her family care or primary care provider in get a referral to pain management. We discussed the use of a prescription strength anti-inflammatory medications although she reports an allergy to Toradol, she states she is able to take Aleve and therefore would like to try some Relafen to see if that would give her any additional relief. We discussed the signs and symptoms to look for with an allergic reaction. I will see her back as needed. [1] Allergies Allergen Reactions Ct: Iodinated Contrast- Oral And Iv Dye Hives and Itching Toradol [Ketorolac] Hives and Other (See Comments) Pain Codeine Hives Fentanyl Itching Pt does not recall any reaction Latex Hives and Rash Penicillin Itching and Rash [2] Current Outpatient Medications: albuterol 90 mcg/actuation inhaler, Inhale 2 (two) puffs every 6 (six) hours as needed for wheezing ., Disp: 18 g, Rfl: 0 ALPRAZolam (XANAX) 0.5 MG tablet, Take 1 (one) tablet (0.5 mg total) by mouth 2 (two) times a day as needed (more content not included)...[facility] [id number] History of Present illness Narrative* Yajaira Canales, ORTIZ - 12/26/2024 10:28 PM EDT [facility] [address] [facility] [address] [facility] [id number] Chief Complaint Patient presents with Left Knee - Pain Poor historian on medication list, unable to provide list. Right Knee - Pain Micheline Fox returns to the office today for bilateral knee pain. I had seen her in the past and injected the left knee. She reports no injury to either knee at today's visit. She has been having pain for the past couple of years. She reports that Tylenol just is not helping with her pain. Shestates that she has some other health issues going on. She does have a history of falls which they are investigating could be neurological. She knows she needs surgery and both knees replaced howeverwith everything else she is going on she is not ready to move forward with any type of replacement surgery. She is also dealing with some lumbar back issues as well. She is not seeing pain management. She reports both knees are about the same. She is utilizing a walker for ambulation. The patient's past medical history, surgical history, social history, family history, medications and allergies were reviewed with the patient today and are available in the chart for further review. Allergies[1] Current Medications[2] Past Medical History: Diagnosis Date Arthritis Asthma Cirrhosis (HCC) Hepatitis C History of cardiac cath 07/01/2019 Hypertension PONV (postoperative nausea and vomiting) most recent Sleep apnea, obstructive Does not use machine Past Surgical History: Procedure Laterality Date BACK SURGERY 1999 Hardware L4-5 CARDIAC CATHETERIZATION 04/2015 CHOLECYSTECTOMY COLONOSCOPY N/A 07/29/2019 Procedure: COLONOSCOPY; Surgeon: Joe Colón MD; Location: [facility] Endo; Service: Gastroenterology EGD N/A 07/29/2019 Procedure: ESOPHAGOGASTRODUODENOSCOPY; Surgeon: Joe Colón MD; Location: [facility] Endo; Service: Gastroenterology ESOPHAGOGASTRODUODENOSCOPY 11/13/2020 Isael Hall[facility] GASTRIC [facility]PASS 1997 LEFT HEART CATH N/A 07/08/2019 Procedure: Left Heart Cath; Surgeon: Hari Acosta MD; Location: [facility]; Service: Cardiovascular HEEL SPUR RESECTION Right 11/14/2020 Procedure: EXCISION HEEL SPUR RIGHT FOOT C-ARM; Surgeon: Digna Reagan DPM; Location: Main OR; Service: Podiatry HERNIA REPAIR 07/16/2016 [facility] 1988 NECK SURGERY 2000 C 4-5 TONSILLECTOMY Social History[3] ROS: Review of Systems Musculoskeletal: Positive for arthralgias, gait problem, joint swelling and myalgias. PE: Physical Exam Musculoskeletal: Right knee: Effusion present. Left knee: Effusion present. ORTHO: Right Knee Exam Tenderness The patient is experiencing tenderness in the medial joint line and lateral joint line. Range of Motion Extension: -5 Flexion: 100 Tests Varus: negative Valgus: negative Other Erythema: absent Scars: absent Sensation: normal Pulse: present Swelling: mild Effusion: effusion present Left Knee Exam Tenderness The patient is experiencing tenderness in the lateral joint line and medial joint line. Range of Motion Extension: -5 Flexion: 90 Tests Varus: negative Valgus: negative Other Erythema: absent Scars: absent Sensation: normal Pulse: present Swelling: mild Effusion: effusion present Imaging: Bilateral knees: No acute fracture or dislocation. Moderate tricompartmental degenerative changes, bilaterally. Small to moderate joint effusions, bilaterally. Assessment/Plan: After examination and reviewing of the patient x-ray images we discussed treatmentoptions for the knees. I did offer her injections which she gladly excepted. I did this without complications and she tolerated this well. She is able to have these every 3 months if they provide herwith any additional pain relief. I also suggested that she contact her family care or primary care remberto paz in get a referral to pain management. We discussed the use of a prescription strength anti-inflammatory medications although she reports an allergy to Toradol, she states she is able to take Aleve and therefore would like to try some Relafen to see if that would give her any additional relief. We discussed the signs and symptoms to look for with an allergic reaction. I will see her back as needed. [1] Allergies Allergen Reactions Ct: Iodinated Contrast- Oral And Iv Dye Hives and Itching Toradol [Ketorolac] Hives and Other (See Comments) Pain Codeine Hives Fentanyl Itching Pt does not recall any reaction Latex Hives and Rash Penicillin Itching and Rash [2] Current Outpatient Medications: albuterol 90 mcg/actuation inhaler, Inhale 2 (two) puffs every 6 (six) hours as needed for wheezing., Disp: 18 g, Rfl: 0 ALPRAZolam (XANAX) 0.5 MG tablet, Take 1 (one) tablet (0.5 mg total) by mouth 2 (two) times a day as needed for anxiety (Days supply per fill: 30) . (Patient not taking: Reported on 07/28/2023 .), Disp: 60 tablet, Rfl: 0 atorvastatin (LIPITOR) 40 MG tablet, Take 1 (one) tablet (40 mg total) by mouth daily with dinner ., Disp: , Rfl: brexpiprazole (Rexulti) 2 mg tablet, Take 1 (one) tablet (2 mg total) by mouth daily . (Patient nottaking: Reported on 04/18/2024 .), Disp: 30 tablet, Rfl: 3 busPIRone (BUSPAR) 10 MG tablet, Take 1 (one) tablet (10 mg total) by mouth 2 (two) times a day . (Patient not taking: Reported on 04/18/2024 .), Disp: 30 tablet, Rfl: 3 carvediloL (COREG) 12.5 MG tablet, Take 1 (one) tablet (12.5 mg total) by mouth 2 (two) times a daywith meals ., Disp: , Rfl: diazePAM (VALIUM) 10 MG tablet, Take 1 (one) tablet (10 mg total) by mouth nightly as needed for anxiety Pt stated she takes medication at bedtime ., Disp: 30 tablet, Rfl: 0 doxepin (SINEQUAN) 25 MG capsule, take 1 capsule by mouth nightly (Patient not taking: Reported on 07/28/2023 .), Disp: 30 capsule, Rfl: 0 doxepin (SINEQUAN) 50 MG capsule, Take 1 (one) capsule (50 mg total) by mouth nightly ., Disp: 30 capsule, Rfl: 3 hydroCHLOROthiazide (HYDRODIURIL) 25 MG tablet, Take 1 (one) tablet (25 mg total) by mouth daily .,Disp: , Rfl: ipratropium-albuteroL (DUO-NEB) 0.5-2.5 mg/3 ml nebulizer, Take 3 mL by nebulization every 6 (six) hours as needed ., Disp: , Rfl: losartan (COZAAR) 50 MG tablet, Take 1 (one) tablet (50 mg total) by mouth 2 (two) times a day ., Disp: , Rfl: OLANZapine (ZYPREXA) 10 MG tablet, Take 1 (one) tablet (10 mg total) by mouth nightly for 3 days .,Disp: 3 tablet, Rfl: 0 ondansetron (ZOFRAN) 8 MG tablet, Take 0.5 (one-half) tablet (4 mg total) by mouth every 8 (eight) hours as needed . (Patient not taking: Reported on 07/28/2023 .), Disp: 11 tablet, Rfl: 0 tiZANidine (ZANAFLEX) 4 MG tablet, Take 1 (one) tablet (4 mg total) by mouth 3 (three) times a day as needed ., Disp: , Rfl: traZODone (DESYREL) 100 MG tablet, take 1 tablet by mouth once daily, Disp: 90 tablet, Rfl: 3 venlafaxine (Effexor XR) 37.5 MG 24 hr capsule, Take 1 (one) capsule (37.5 mg total) by mouth daily., Disp: 30 capsule, Rfl: 1 venlafaxine (EFFEXOR) 75 MG tablet, Take 1 (one) tablet (75 mg total) by mouth 2 (two) times a day ., Disp: , Rfl: venlafaxine (EFFEXOR-XR) 75 MG 24 hr capsule, take 1 capsule by mouth once daily, Disp: 30 capsule,Rfl: 1 [3] Social History Socioeconomic History Marital status: Tobacco Use Smoking status: Former Current packs/day: 0.00 Types: Cigarettes Quit date: 2018 Years since quittin.2 Smokeless tobacco: Never Tobacco comments: quit 4 years ago Vaping Use Vaping status: Never Used Substance and Sexual Activity Alcohol use: Not Currently Alcohol/week: 5.0 standard drinks of alcohol Types: 5 Cans of beer per week Comment: LAST DRINK WAS 192904/30/23 [employer] Drug use: Never Social Drivers of Health Financial Resource Strain: High Risk (08/06/2022) Received from [facility] Overall Financial Resource Strain (CARDIA) Difficulty of Paying Living Expenses: Hard Food Insecurity: Food Insecurity Present (08/06/2022) Received from [facility] Hunger Vital Sign Worried About Running Out of Food in the Last Year: Sometimes true Ran Out of Food in the Last Year: Sometimes true Transportation Needs: Unmet Transportation Needs (01/28/2024) Received from [facility] PRAPARE - Transportation Lack of Transportation (Medical): Yes Lack of Transportation (Non-Medical): Yes Physical Activity: Inactive (08/06/2022) Received from [facility] Exercise Vital Sign Days of Exercise per Week: 0 days Minutes of Exercise per Session: 0 min Stress: Stress Concern Present (08/06/2022) Received from [facility] [place] [facility] [employer] [facility] - Occupational Stress Questionnaire Feeling of Stress : Very much Social Connections: Moderately Isolated (08/06/2022) Received from [facility] Social Connection and Isolation Panel [NHANES] Frequency of Communication with Friends and Family: Twice a week Frequency of Social Gatherings with Friends and Family: Once a week Attends Rastafarian Services: Never Active Member of Clubs or Organizations: No Attends Club or Organization Meetings: 1 to 4 times per year Marital Status: Housing Stability: Low Risk (08/06/2022) Received from [facility] Housing Stability Vital Sign Unable to Pay for Housing in the Last Year: No Number of Places Lived in the Last Year: 1 Unstable Housing in the Last Year: No documented in this [id number] Radiology Diagnostic study note [facility] Imaging Services [address] [place], [place] [id number] Abdomen Limited MR#: [id number] Acct: [id number] Name: MICHELINE FOX Rep #: [id number] 2 : 1960 F 64 From: Mango Giron MD PCP: Dr. Eduardo Murcia MD Status: REG CLI Study:Abdomen Limited Date of Exam: 11/20 04/14 Exam# [id number] Ordering Dr: Vaishnavi Whitt EXAM: ABDOMEN LIMITED 12/15/2024 CLINICAL HISTORY: Epigastric pain COMPARISON: None available TECHNIQUE: Right upper quadrant abdominal ultrasound limited FINDINGS: The study is limited by bowel gas and body habitus. The pancreas is not well seen. The body and tail are obscured by bowel gas. The liver measures 17.2 cm and appears diffusely increased in echogenicity whichcan be seen with hepatic steatosis or other hepatocellular disease. Liver surface contour appears mildly lobular. No evidence of intrahepatic biliary ductal dilation. Hepatic color flow is present with flow within the portal vein appearing hepatopetal as expected. Report of cholecystectomy. Gallbladder fossa appears unremarkable. CBD 2 mm. The right kidney measures 9.5 x 4 x 4.5 cm without hydronephrosis, evidence of renal stone or perinephric edema seen. No free fluid seen. US/Abdomen Limited IMPRESSION: The study is limited by bowel gas and body habitus. The pancreas is not well seen. The body and tail are obscured by bowel gas. The liver measures 17.2 cm and appears diffusely increased in echogenicity whichcan be seen with hepatic steatosis or other hepatocellular disease. Report of cholecystectomy. Reading Location: [id number] CC: CAROLYN Whitt; Dr. Eduardo Murcia MD ~ Comic Book Designer: Signed [facility]03-25-2025 NoteDate of Procedure 12/13/2024. OCT Macula Interpretation Right Eye Normal without fluid. Findings include Vitelliform lesion. Left Eye Normal without fluid. Findings include Vitelliform lesion. Interval Change Right Eye Initial. Left Eye Initial.[id number] Instructions* Patient Instructions* Alaina Peralta MD - 12/13/2024 4:18 PM EDT If you have any questions please contact our office at [phone]. After office hours or on the weekend, please call Dr. Peralta on his cell phone at [phone]. documented in this [facility]25 NoteHNO ID: [id number] Author: ALAINA PERALTA MD Service: ? Author Type: Physician Type: Progress Notes Filed: 12/13/2024 16:19 Note Text: ASSESSMENT/PLAN: 1. Vitelliform lesion of macula/both eyes - ICD9: 362.76, ICD10: H35.54 (primary diagnosis) Referred by Dr. Malagon Monitor Follow up in 6 months/sooner if needed 2. Combined forms of age-related cataract of both eyes - ICD9: 366.19, ICD10: H25.813 Not visually significant/monitor 3. Sleep apnea, unspecified type - ICD9: 780.57, ICD10: G47.30 4. Hypercholesterolemia - ICD9: 272.0, ICD10: E78.00 I have confirmed and edited as necessary the relevant ophthalmic history, review of systems, surgical history, and ophthalmological examination findings as obtained by the ophthalmic technical staff. I have seen and examined Micheline Fox. I have discussed the examination findings, diagnosis, and treatment options with Micheline Fox and/or her family. I have also reviewed and agree with the assessment and plan as stated above and agree with all its relevant components. I gave the patient the opportunity to ask questions about the findings, diagnosis, and treatment options.[facility] 03-25-2025 History of Present illness Narrative* Alaina Peralta MD - 12/13/2024 4:16 PM EDT ASSESSMENT/PLAN: 1. Vitelliform lesion of macula/both eyes - ICD9: 362.76, ICD10: H35.54 (primary diagnosis) Referred by Dr. Malagon Monitor Follow up in 6 months/sooner if needed 2. Combined forms of age-related cataract of both eyes - ICD9: 366.19, ICD10: H25.813 Not visually significant/monitor 3. Sleep apnea, unspecified type - ICD9: 780.57, ICD10: G47.30 4. Hypercholesterolemia - ICD9: 272.0, ICD10: E78.00 I have confirmed and edited as necessary the relevant ophthalmic history, review of systems, surgical history, and ophthalmological examination findings as obtained by the ophthalmic technical staff.I have seen and examined Micheline Fox. I have discussed the examination findings, diagnosis, and treatment options with Micheline Fox and/or her family. I have also reviewed and agree with the assessment and plan as stated above and agree with all its relevant components. I gave the patient the opportunity to ask questions about the findings, diagnosis, and treatment options. documented in this encounterMet[facility]03-[facility] Evaluation note* Diagnosis Onset Date Resolution Status Admit Date Bloating acute December 08 3:30pm Constipation acute December 08, 2024 3:30pm Epigastric pain acute November 3:30pm Hemorrhoids noneactive December 08 2 025 3:30pm Bloating acute March 10 11:53am Constipation acute March 10 2 025 11:53am Epigastric pain acute February 11:53am [facility] Work Phone: 1(740) 255-834203-20-2025 Evaluation note* Diagnosis Onset Date Resolution Status Admit Date Bloating acute December 08 3:30pm Constipation acute December 08, 2024 3:30pm Epigastric pain acute November 3:30pm Hemorrhoids noneactive December 08 2 025 3:30pm Bloating acute March 10 11:53am Constipation acute March 10, 2 025 11:53am Epigastric pain acute February 11:53am Chest pressure acute March 22, 2025 2:00pm MCGOWAN (dyspnea on exertion) acute March 22, 2025 2:00pm Weight gain acute March 22 2:00pm Bloating acute March 22, 2025 8:16pm Blood in stool acute March 22, 2025 8:16pm Body mass index (BMI) greate r than 50 acute March 22, 2025 8 :16pm Chest pain, exertional acute Ju 2024 8:16pm MCGOWAN (dyspnea on exertion) acute March 22, 2025 8:16pm Epigastric pain acute March 22, 2025 8:16pm Noncompliance with CPAP treatment acute March 22, 2025 8 :16pm Obesity hypoventilation syndrome acute March 22, 2025 8 :16pm Weight gain acute March 22 8:16pm [facility] Work Phone: 1([phone]) 236-339902-14-2025 Evaluation + Plan note* Assessment & Plan Note - Eduardo Murcia DO - 11/04/2024 1:18 PM ESTAssociated Problem(s): KELLY (obstructive sleep apnea) -We discussed the importance of being evaluated for sleep apnea and also treatment -For now she declines but she states she will consider it and we will discuss it at her next visit [facility] Work Phone: [phone]) 113-813302-14-2025 Miscellaneous Notes* Assessment & Plan Note - Eduardo Murcia DO - 11/04/2024 1:18 PM ESTAssociated Problem(s): KELLY (obstructive sleep apnea) -We discussed the importance of being evaluated for sleep apnea and also treatment -For now she declines but she states she will consider it and we will discuss it at her next visit * Assessment & Plan Note - Eduardo Murcia DO - 11/04/2024 1:17 PM EST Associated Problem(s): 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, psychotic disturbance, mood disturbance, or anxiety (Multi) -She has been seen and evaluated by neurology and has a follow-up appointment later this year * Assessment & Plan Note - Eduardo Murcia DO - 11/04/2024 1:17 PM EST Associated Problem(s): Current moderate episode of major depressive disorder without prior episode (Multi) -She appears to be doing well on her current medical regimen and we will continue to monitor closely * Assessment & Plan Note - Eduardo Murcia DO - 11/04/2024 1:17 PM EST Associated Problem(s): Hepatic cirrhosis (Multi) -Her liver specialist is Dr. Jaime Holt and she will follow closely with her -We spent some time discussing cirrhosis and the condition known as hepatic encephalopathy -I will give her printouts today and she will read about those * Assessment & Plan Note - Eduardo Murcia DO - 11/04/2024 1:17 PM EST Associated Problem(s): Hyperglycemia -We will check a fasting glucose and hemoglobin A1c just prior to her next follow-up visit * Assessment & Plan Note - Eduardo Murcia DO - 11/04/2024 1:16 PM EST Associated Problem(s): Disorder involving thrombocytopenia (CMS-HCC) -We are checking a CBC just prior to her next follow-up visit and if she has thrombocytopenia it itis likely secondary to her liver cirrhosis and transitory changes to the spleen documented in this [facility] Work Phone: [phone]) 879-603002-14-2025 Evaluation + Plan note* Assessment & Plan Note - Eduardo Murcia DO - 11/04/2024 1:17 PM ESTAssociated Problem(s): 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, psy chotic disturbance, mood disturbance, or anxiety (Multi) -She has been seen and evaluated by neurology and has a follow-up appointment later this year [facility] Work Phone: 1([phone]) 872-912302-14-2025 Evaluation + Plan note* Assessment & Plan Note - Eduardo Murcia DO - 11/04/2024 1:17 PM ESTAssociated Problem(s): Current moderate episode of major depressive disorder without prior episode ( Multi) -She appears to be doing well on her current medical regimen and we will continue to monitor closely [facility] Work Phone: [phone]) 707-692002-14-2025 Evaluation + Plan note* Assessment & Plan Note - Eduardo Murcia DO - 11/04/2024 1:17 PM ESTAssociated Problem(s): Hepatic cirrhosis (Multi) -Her liver specialist is Dr. Jaime Holt and she will follow closely with her -We spent some time discussing cirrhosis and the condition known as hepatic encephalopathy -I will give her printouts today and she will read about those [facility] Work Phone: [phone]) 126-620902-14-2025 Evaluation + Plan note* Assessment & Plan Note - Eduardo Murcia DO - 11/04/2024 1:17 PM ESTAssociated Problem(s): Hyperglycemia -We will check a fasting glucose and hemoglobin A1c just prior to her next follow-up visit [facility] Work Phone: [phone]) 595-560502-14-2025 Evaluation + Plan note* Assessment & Plan Note - Eduardo MurciaDO - 11/04/2024 1:16 PM ESTAssociated Problem(s): Disorder involving thrombocytopenia ([facility]) -We are checking a CBC just prior to her next follow-up visit and if she has thrombocytopenia it itis likely secondary to her liver cirrhosis and transitory changes to the spleen [facility] Work Phone: [phone]) 437-543602-14-2025 History of Present illness Narrative* Eduardo Galen DO Galdino - 11/04/2024 12:40 PM EST Subjective Patient ID: Micheline Fox is a 64 y.o. female who [facility] HPI She is here today for follow-up. I last saw her back in February. Unfortunately around June 24 she was falling frequently at home and also disoriented. Her daughter took her to [facility] and there she was hospitalized for several days. She was then admitted to [facility]habilitation. She explains that she found out she was not taking her medications correctly and had a lot of confusion. Since our last episode she has been seen by neurology and diagnosed with Alzheimer's dementia. She also has been diagnosed with cirrhosis and she also suffers from sleep apnea. She states that she was doing physical therapy at the nursing facility but then there was talk about her not having insurance coverage. She decided to go home against the advice of her healthcare team at [facility]. She states they did arrange for her to have home health care and she will have somebody coming out on Thursday to start physical therapy. She lives alone but her daughter checks on herfrequently. She states they discussed plans for the future should her memory get worse. She does have problems with mobility and uses a walker. We talked about the various health issues at hand. We talked about sleep apnea and all of the health problems that can stem from not treating this condition. We even talked about the association of untreated sleep apnea with memory loss. I have strongly urged her to be tested for sleep apnea and treated. She states she used to have CPAP a long time ago but did not like it. We tried to do an in-home study but she states while sleeping the recording devices became unattached and the test turned out not to be viable. We talked about reattempting testing and she states she will think about it. We also discussed gathering her most recent laboratory test results and we are giving her refills on medications. She listed 2 medications that are not on herlist and she will call us with the names of those medicines. We also need clarification on her propranolol dose. We also discussed seeing her back in just a few months with her daughter. We also discu ssed cirrhosis and hepatic encephalopathy. I am giving her educational handouts today. Objective Physical Exam Vitals and nursing note [...] Problem List Items Addressed This Visit ICD-10-CM KELLY (obstructive sleep apnea) G47.33 -We discussed the importance of being evaluated for sleep apnea and also treatment -For now she declines but she states she will consider it and we will discuss it at her next visit Mixed hyperlipidemia E78.2 Relevant Medications atorvastatin (Lipitor) 40 mg tablet Hyperglycemia R73.9 -We will check a fasting glucose and hemoglobin A1c just prior to her next follow-up visit Relevant Orders Hemoglobin A1C Hepatic cirrhosis (Multi) K74.60 -Her liver specialist is Dr. 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 -We are checking a CBC just prior to her next follow-up visit and if she has thrombocytopenia it itis likely secondary to her liver cirrhosis and transitory changes to the spleen Relevant Orders CBC and Auto Differential Current moderate episode of major depressive disorder without prior episode (Multi) F32.1 -She appears to be doing well on her current medical regimen and we will continue to monitor closely RESOLVED: Moderate episode of recurrent major depressive disorder F33.1 Relevant Medications venlafaxine (Effexor) 75 mg tablet 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 Please call them with the information and please keep in mind that today is Thursday late afternoon so we probably will not get to the refills until Thursday morning Please read the handouts we gave you today on cirrhosis and hepatic encephalopathy and please sharethis information with your daughter Please consider having a sleep study as I think this would help with your overall health I am glad that you will be having home health services coming back on Thursday and if there are certain supplies you are in need of they usually will send an order for us to sign Please use your walker at all times to be very careful when moving about your environment We will have you sign to get a copy of your mammogram and we will try to get a copy of your lab work from [facility] When I see you back in 3 months please remember to go to the lab 5 days before our appointment because I have ordered lab for follow-up Eduardo Murcia DO documented in this [facility] Work Phone: [phone]) 107-985302-14-2025 Instructions* Patient Instructions* Eduardo Murcia DO - 11/04/2024 12:40 PM EST Patient instructions As we discussed I sent refills on some of your medications but we need clarification on the exact dose of your propranolol and we also need to let us know the dose of your Remeron and your gabapentin. Please call them with the information and please keep in mind that today is Thursday late afternoon so we probably will not get to the refills until Thursday morning Please read the handouts we gave you today on cirrhosis and hepatic encephalopathy and please sharethis information with your daughter Please consider having a sleep study as I think this would help with your overall health I am glad that you will be having home health services coming back on Thursday and if there are certain supplies you are in need of they usually will send an order for us to sign Please use your walker at all times to be very careful when moving about your environment We will have you sign to get a copy of your mammogram and we will try to get a copy of your lab work from [facility] When I see you back in 3 months please remember to go to the lab 5 days before our appointment because I have ordered lab for follow-up [facility]: [phone]) 272-583901-28-2025 Evaluation note* Diagnosis Onset Date Resolution Status Admit Date Dementia acute October 18, 2024 1:30pm Bloating acute December 08 3:30pm Constipation acute December 08, 2024 3:30pm Epigastric pain acute November 3:30pm Hemorrhoids noneactive December 08, 2 025 3:30pm [facility] Work Phone: [phone]) [phone] Telephone encounter Note* Telephone Encounter - Estefani Fox RN - 08/08/2024 3:46 PM EST Attempted to contact patient. Left voicemail message on listed contact # to call [facility] [phone]. Asked patient to reference #99 when calling back to our office. Ok to relay message below. Notified patient of unread MyChart message. Encouraged a phone call to reset password assisted by staffing if appropriate. Gastroenterology number provided for message delivery. [id number] Miscellaneous Notes* Telephone Encounter - Estefani Fox RN - 08/08/2024 3:46 PM EST Attempted to contact patient. Left voicemail message on listed contact # to call [facility] [phone]. Asked patient to reference #99 when calling back to our office. Ok to relay message below. Notified patient of unread MyChart message. Encouraged a phone call to reset password assisted by staffing if appropriate. Gastroenterology number provided for message delivery. documented in this [id number] NoteSpoke with patient and daughter- pt reports she needs help staying in SNF. Explained that I do not do those evaluations. Provided SW info and advised to f/u PCP. Answered all questions to best of my ability. Pt/daughter were grateful for the callThe [facility]11-13-2024 Telephone encounter Note* Telephone Encounter - Jaime Holt APRN-CNP - 08/03/2024 12:17 PM EST Spoke with patient and daughter- pt reports she needs help staying in SNF. Explained that I do not do those evaluations. Provided SW info and advised to f/u PCP. Answered all questions to best of my ability. Pt/daughter were grateful for the call [id number] Miscellaneous Notes* Telephone Encounter - Jaime Holt APRN-CNP - 08/03/2024 12:17 PM EST Spoke with patient and daughter- pt reports she needs help staying in SNF. Explained that I do not do those evaluations. Provided SW info and advised to f/u PCP. Answered all questions to best of my ability. Pt/daughter were grateful for the call * Telephone Encounter - Jaime Holt APRN-CNP - 08/01/2024 12:24 PM EST Please inform patient I do not handle SNF referrals or living situation. In the past she spoke withsocial work. Recommend speaking with them Sage Momin, GAS DESULFURIZER, [employer] TECHNICAL ARCHITECT Outpatient SW [phone] * Telephone Encounter - Chelo Alvarado - 07/29/2024 2:55 PM EST Pt calling requesting to speak with HEATHER Johnson, as soon as possible to discuss staying in the assisted living facility that she has been in since she was discharged from the hospital a week or two ago. Pt states that she was in [facility] for two days due to numerous falls. (Pt declined scheduling an appointment). Please return Pt's call at: . Thank you documented in this [id number] Telephone encounter Note* Telephone Encounter - Danette Rhodes, ARLEEN - 08/01/2024 1:44 PM EST Patient is in a rehab center. Patients daughter would like to talk to Jaime BECKHAM CNP about the patients health. Patient possibly being discharged Thursday. Patients daughter (POA) would like to know what stage cirrhosis she is in. Rocio has a lot of questions about patients health. Rocio would like to schedule Thu and Thursday mornings are best to schedule a telehealth visit. [id number] Miscellaneous Notes* Telephone Encounter - Danette Rhodes, ARLEEN - 08/01/2024 1:44 PM EST Patient is in a rehab center. Patients daughter would like to talk to Jaime BECKHAM CNP about the patients health. Patient possibly being discharged Thursday. Patients daughter (SHELLIE) would like to know what stage cirrhosis she is in. Rocio has a lot of questions about patients health. Rocio would like to schedule Thu and Thursday mornings are best to schedule a telehealth visit. * Telephone Encounter - Annalee Moran - 08/01/2024 12:42 PM EST Daughter calling back again. Please call her again regarding her mother. Daughter states she never received a phone call. Thanks. [phone] Daughter is very upset she has not talked to anyone. * Telephone Encounter - Robby Short - 07/28/2024 1:39 PM EST Pt called in the patient is in the hospital the daughter is the pt SHELLIE. The patient would like for her doctor to call the pt daughter Rocio. Please call her and [facility] She can be reached @ [phone]. Please call Rocio the patient daughter and speak with her about her mom. Thanks. * Telephone Encounter - Estefani Fox RN - 07/26/2024 3:01 PM EST Attempted to contact patient. Left voicemail message on listed contact # to call [facility] [phone]. Asked patient to reference #99 when calling back to our office. Ok to relay message below. Pt was scheduled today at 1p and missed appt to review results. The results are unchanged from 2016Fibroscan- diagnosis of cirrhosis is not new- recommend rescheduling appt if they'd like to discussfurther 2016 Findings Mean KPa: 17.1 IQR/med (%): 16% Interpretation: Evidence of advanced fibrosis / cirrhosis (F4) This message will be transferred into patient my chart. * Telephone Encounter - Robby Short - 07/25/2024 12:03 PM EST PT daughter Rocio Called in to speak with the doctor concerning her mom. Her and Her sister sharePOA of the pt. Rocio would like to speak with the doctor about her mom recent Fibroscan she recently had. Pt daughter would like to know the results. Thanks [phone] Please call her. documented in this [id number] Telephone encounter Note* Telephone Encounter - Annalee Moran - 08/01/2024 12:42 PM EST Daughter calling back again. Please call her again regarding her mother. Daughter states she never received a phone call. Thanks. [phone] Daughter is very upset she has not talked to anyone. [id number] Miscellaneous Notes* Telephone Encounter - Annalee Moran - 08/01/2024 12:42 PM EST Daughter calling back again. Please call her again regarding her mother. Daughter states she never received a phone call. Thanks. [phone] Daughter is very upset she has not talked to anyone. * Telephone Encounter - Robby Short - 07/28/2024 1:39 PM EST Pt called in the patient is in the hospital the daughter is the pt POA. The patient would like for her doctor to call the pt daughter Rocio. Please call her and discuss any test results with the ptdaughter. She can be reached @ [phone]. Please call Rocio the patient daughter and speak with her about her mom. Thanks. * Telephone Encounter - Estefani Fox, RN - 07/26/2024 3:01 PM EST Attempted to contact patient. Left voicemail message on listed contact # to call [facility] [phone]. Asked patient to reference #99 when calling back to our office. Ok to relay message below. Pt was scheduled today at 1p and missed appt to review results. The results are unchanged from 2016Fibroscan- diagnosis of cirrhosis is not new- recommend rescheduling appt if they'd like to discussfurther 2016 Findings Mean KPa: 17.1 IQR/med (%): 16% Interpretation: Evidence of advanced fibrosis / cirrhosis (F4) This message will be transferred into patient my chart. * Telephone Encounter - Robby Short - 07/25/2024 12:03 PM EST PT daughter Rocio Called in to speak with the doctor concerning her mom. Her and Her sister sharePOA of the pt. Rocio would like to speak with the doctor about her mom recent Fibroscan she recently had. Pt daughter would like to know the results. Thanks [phone] Please call her. documented in this [id number] NotePlease inform patient I do not handle SNF referrals or living situation. In the past she spoke with social work. Recommend speaking with them Sage Momin, GAS DESULFURIZER, [employer] TECHNICAL ARCHITECT Outpatient [phone]11-11-2024 Telephone encounter Note* Telephone Encounter - Jaime Holt APRN-CNP - 08/01/2024 12:24 PM EST Please inform patient I do not handle SNF referrals or living situation. In the past she spoke withsocial work. Recommend speaking with them Sage Momin, GAS DESULFURIZER, [employer] TECHNICAL ARCHITECT Outpatient [phone] [id number] Telephone encounter Note* Telephone Encounter - Chelo Alvarado - 07/29/2024 2:55 PM EST Pt calling requesting to speak with HEATHER Johnson, as soon as possible to discuss staying in the assisted living facility that she has been in since she was discharged from the hospital a week or two ago. Pt states that she was in [facility] for two days due to numerous falls. (Pt declined scheduling an appointment). Please return Pt's call at: . Thank you [id number] Telephone encounter Note* Telephone Encounter - Robby Short - 07/28/2024 1:39 PM EST Pt called in the patient is in the hospital the daughter is the pt POA. The patient would like for her doctor to call the pt daughter Rocio. Please call her and discuss any test [facility]. She can be reached @ [phone]. Please call Rocio the patient daughter and speak with her about her mom. Thanks. [id number] Miscellaneous Notes* Telephone Encounter - Robby Short - 07/28/2024 1:39 PM EST Pt called in the patient is in the hospital the daughter is the pt POA. The patient would like for her doctor to call the pt daughter Rocio. Please call her and discuss any test results with the ptdauter. She can be reached @ [phone]. Please call Rocio the patient daughter and speak with her about her mom. Thanks. * Telephone Encounter - Estefani Fox RN - 07/26/2024 3:01 PM EST Attempted to contact patient. Left voicemail message on listed contact # to call [employer] [phone]. Asked patient to reference #99 when calling back to our office. Ok to relay message below. Pt was scheduled today at 1p and missed appt to review results. The results are unchanged from 2016Fibroscan- diagnosis of cirrhosis is not new- recommend rescheduling appt if they'd like to discussfurther 2016 Findings Mean KPa: 17.1 IQR/med (%): 16% Interpretation: Evidence of advanced fibrosis / cirrhosis (F4) This message will be transferred into patient my chart. * Telephone Encounter - Robby Short - 07/25/2024 12:03 PM EST PT daughter Rocio Called in to speak with the doctor concerning her mom. Her and Her sister sharePOA of the pt. Rocio would like to speak with the doctor about her mom recent Fibroscan she recently had. Pt daughter would like to know the results. Thanks [phone] Please call her. documented in this [id number] Telephone encounter Note* Telephone Encounter - Estefani Fox RN - 07/26/2024 3:01 PM EST Attempted to contact patient. Left voicemail message on listed contact # to call [employer] [phone]. Asked patient to reference #99 when calling back to our office. Ok to relay message below. Pt was scheduled today at 1p and missed appt to review results. The results are unchanged from [facility]- diagnosis of cirrhosis is not new- recommend rescheduling appt if they'd like to discussfurther 2015 Findings Mean KPa: 17.1 IQR/med (%): 16% Interpretation: Evidence of advanced fibrosis / cirrhosis (F4) This message will be transferred into patient my chart. [id number] Miscellaneous Notes* Telephone Encounter - Estefani Fox RN - 07/26/2024 3:01 PM EST Attempted to contact patient. Left voicemail message on listed contact # to call [employer] [phone]. Asked patient to reference #[phone] when calling back to our office. Ok to relay message below. Pt was scheduled today at 1p and missed appt to review results. The results are unchanged from [facility]- diagnosis of cirrhosis is not new- recommend rescheduling appt if they'd like to discussfurther 2015 Findings Mean KPa: 17.1 IQR/med (%): 16% Interpretation: Evidence of advanced fibrosis / cirrhosis (F4) This message will be transferred into patient my chart. * Telephone Encounter - Robby Short - 07/25/2024 12:03 PM EST PT daughter Rocio Called in to speak with the doctor concerning her mom. Her and Her sister sharePOA of the pt. Rocio would like to speak with the doctor about her mom recent Fibroscan she recently had. Pt daughter would like to know the results. Thanks [phone] Please call her. documented in this [id number] Telephone encounter Note* Telephone Encounter - Robby Short - 07/25/2024 12:03 PM EST PT daughter Rocio Called in to speak with the doctor concerning her mom. Her and Her sister sharePOA of the pt. Rocio would like to speak with the doctor about her mom recent Fibroscan she recently had. Pt daughter would like to know the results. Thanks [phone] Please call her. [id number] [facility] Medical Records Department [address] [place] [address] Discharge Summary 07/13/24 1502 MR#: [id number] Acct: [id number] Name: MICHELINE FOX Rep #: [id number] : 1960 64 From: Vinicio Reeder DO PCP: Dr. Leticia Sylvester MD Status:ADM IN Location: [place] [address] Providers Date of Admission: 07/11/24 Primary Care Physician: Dr. Leticia Sylvester MD Consultations 07/11/24 17:37 Consult: Tele-Neurology Routine Consulting Provider: [facility] Reason for Consult: confusion, progressive. EMERGENT Consult: No MD Notified: Yes Date Notified: 07/11/24 Time Notified: 18:28 Method of Notification: Answering Service Nursing Unit Staff Notify [facility] of Tele-Neurology Consult: Yes Reason For Visit: SEVERE HYPOKALEMIA, AMS AND DEHYDRATION Diagnosis Discharge Diagnosis (1) Hypokalemia: Status: Acute Code(s): E87.6 - Hypokalemia (2) Altered mental status: Status: Acute Code(s): R41.82 - Altered mental status, unspecified Qualifiers: Altered mental status type: delirium Qualified Code(s): R41.0 - Disorientation, unspecified Plan Hypokalemia * 2.7 on admission. Replace again. Encephalopathy * ammonia less than 10. Alcohol level negative * daughter has noted progressive change person the past year. * minimize potentiating medications (wean diazepam over several weeks) * MRI brain negative. * unclear if patient has dementia v psychiatric. * Neurology notes to clear etiology, but concern for underlying Wernikes' encepahlopathy given known vitamin deficiencies. Recommending replete thiamine. Follow up with neurology as outpt. * Additionally wean the diazepam over the next few weeks with 5 mg tablet for 5 days daily then every other day for 3 doses then every third day for 3 doses and then stop. Folate deficiency * Continue with folate replacement Chronic conditions: * insomnia: avoid Zolpidem. On [place]ARRS review, patient has not received this since December 2023 * Recent admission to a psychiatric facility in [place], [place] - where she subsequently signed herself out after 3 days adding to the medical complexity of #1 - #5 - Noted. 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 * Essential hypertension continue propranolol VTE prophylaxis: LMWH Disposition: DC to SNF. Discussed with patient's daughter, Rocio Medications at Discharge Home Medications atorvastatin 40 mg tablet 40 mg PO DAILY cholesterol 07/10/24 propranolol 40 mg tablet 60 mg PO TID blood pressure 07/10/24 trazodone 100 mg tablet 100 mg PO DAILY mental health 07/10/24 venlafaxine 75 mg capsule,extended release 24 hr 75 mg PO DAILY mental health 07/10/24 acetaminophen 325 mg tablet 650 mg (2 x 325 mg) PO Q6H PRN PRN Pain 1-10 Or Fever>100.7 #0 tabs 07/13/24 diazepam 5 mg tablet 5 mg PO QHS 3 days #3 tabs 07/13/24 folic acid 1 mg tablet 1 mg PO DAILY #30 tabs 07/13/24 food supplemt, lactose-reduced 0.08 gram-1.5 kcal/mL oral liquid (Ensure Plus High Protein) 120 ml PO TIDCM #0 mL 07/13/24 thiamine HCl (vitamin B1) 100 mg tablet 100 mg PO DAILY #30 tabs 07/13/24 Hospital Course Operations None Procedures None Summary of Care Provided Minutes Spent on Discharge: 35 Hospital Course: Patient presents with progressive confusion from home and falls. Patient's daughter has noted the patient has been more confused, paranoid. Over the past year. Patient underwent a workup here that was unremarkable though her MRI of the brain did show some more pronounced atrophy for someone her age but otherwise no acute process. Her folic acid level was low and has been started on replacement. Patient was seen by neurology who recommended replating thiamine in addition to the folic acid to see if she has some element of Warnicke's encephalopathy. According to patient's daughter, she stopped drinking around 2015 and was a heavy drinker at that time so that certainly could be a possibility. So hopefully with time if this is indeed due to Warnicke's encephalopathy that that may improve with vitamin replacements. Patient is also been falling and is unsafe to return home at this time. Patient will be going to [facility] for further rehabilitation. Weight / BMI Weight Weight: 104.9 kg Body Mass Index (BMI) 38.5 ABG / Lab / Microbiology Data 07/11/24 12:47 07/13/24 06:43 Laboratory: Laboratory Results - last 24 hr 07/13/24 06:07: Sodium Cancelled, Potassium Cancelled, Chloride Cancelled, Carbon Dioxide Cancelled, Anion Gap Cancelled, BUN Cancelled, Creatinine Cancelled, Estim Creat Clear Calc Cancelled, Est GFR (MDRD) Af Amer Cancelled, Est GFR (MDRD) Non-Af Cancelled, BUN/Creatinine Ratio Cancelled, Glucose Cancelled, Calcium Cancelled 07/13/24 06:43: Sodium 141, Potassium 3.3 L, Chloride 108 H, Carbon Dioxide 29.0, Anion Gap 4 L, BUN 22 H, Creatinine (more content not included)...[facility] 02-26-2024 Evaluation + Plan note* Assessment & Plan Note - Eduardo Murcia DO - 02/26/2024 1:01 PM EDTAssociated Problem(s): KELLY (obstructive sleep apnea) -Since has been several years since she has had a sleep study I will go ahead and order an in-home sleep study and we will see her back after completion [facility] Work Phone: 1([phone]) 732-758906-07-2024 Evaluation + Plan note* Assessment & Plan Note - Eduardo Murcia DO - 02/26/2024 1:01 PM EDTAssociated Problem(s): Current moderate episode of major depressive disorder without prior episode ( Multi) -We discussed seeing a psychiatrist for depression and I will let her think about it and she will let me know next time when she comes back for a follow-up [facility] Work Phone: [phone] Evaluation + Plan note* Assessment & Plan Note - Eduardo Murcia DO - 02/26/2024 1:01 PM EDTAssociated Problem(s): Hepatic cirrhosis (Multi) -She will continue to follow with her dental hygiene administrative assistant Dr. Nargis Holt at [facility] Work Phone: 1(687) 479-867106-07-2024 Miscellaneous Notes* Assessment & Plan Note - Eduardo Murcia DO - 02/26/2024 1:01 PM EDTAssociated Problem(s): KELLY (obstructive sleep apnea) -Since has been several years since she has had a sleep study I will go ahead and order an in-home sleep study and we will see her back after completion * Assessment & Plan Note - Eduardo Murcia DO - 02/26/2024 1:01 PM EDT Associated Problem(s): Current moderate episode of major depressive disorder without prior episode (Multi) -We discussed seeing a psychiatrist for depression and I will let her think about it and she will let me know next time when she comes back for a follow-up * Assessment & Plan Note - Eduardo Murcia DO - 02/26/2024 1:01 PM EDT Associated Problem(s): Hepatic cirrhosis (Multi) -She will continue to follow with her dental hygiene administrative assistant Dr. Nargis Holt at [facility] * Assessment & Plan Note - Eduardo Murcia DO - 02/26/2024 1:00 PM EDT Associated Problem(s): Vitamin D deficiency -Her last vitamin D level was only 21 so we will check it again and talk about vitamin D supplementation * Assessment & Plan Note - Eduardo Murcia DO - 02/26/2024 1:00 PM EDT Associated Problem(s): Hyperglycemia -She has had a recent blood sugar determination which was at 115 so I will be checking a [id number] * Assessment & Plan Note - Eduardo Murcia DO - 02/26/2024 12:59 PM EDT Associated Problem(s): Disorder involving thrombocytopenia ([facility]-HCC) -Her last CBC was performed on 01/27/2024 and her platelets were normal at 177 documented in this [facility] Work Phone: 1(946) 120-412306-07-2024 Evaluation + Plan note* Assessment & Plan Note - Eduardo Murcia DO - 02/26/2024 1:00 PM EDTAssociated Problem(s): Vitamin D deficiency -Her last vitamin D level was only 21 so we will check it again and talk about vitamin D supplementation [facility] Work Phone: 1([phone]) 803-146806-07-2024 Evaluation + Plan note* Assessment & Plan Note - Eduardo Murcia DO - 02/26/2024 1:00 PM EDTAssociated Problem(s): Hyperglycemia -She has had a recent blood sugar determination which was at 115 so I will be checking a [id number] [facility] Work Phone: [phone]) 719-347506-07-2024 Evaluation + Plan note* Assessment & Plan Note - Eduardo MurciaDO - 02/26/2024 12:59 PM EDTAssociated Problem(s): Disorder involving thrombocytopenia (CMS-HCC) -Her last CBC was performed on 01/27/2024 and her platelets were normal at 177 [facility] Work Phone: 1([phone]) 819-210406-07-2024 History of Present illness Narrative* Eduardo MurciaDO - 02/26/2024 12:00 PM EDT Subjective Patient ID: Micheline Fox is a 63 y.o. female who presents for [facility]. HPI She is here today to [...] was several years ago. I did explain toher right away that Valium as well as the other benzodiazepines are controlled substances and we donot use them regularly for any type of [...] from cirrhosis and she does see a dental hygiene administrative assistant, at [facility]. She states that she has been doing okay with her liver disease. She was also successfully treated for hepatitis C. We also see that she has had issues with vitamin D deficiency and also renal insufficiency. I have decided to repeat some lab work but not to order all lab work because it has been done recently lastmonth. She also unfortunately suffers from depression and we talked about seeing a psychiatrist for further evaluation and treatment. She will think about it. I did explain to her that I cannot give her the Valium and that I was sorry. I did offer other solutions such as treating her sleep apnea and working on sleep patterns. We even discussed going to [facility]. I also told her that I would not be offended if she wanted to seek another healthcareprovider but I did warn her that there [...] 115 so I will be checking a [id number] Relevant Orders Basic Metabolic Panel Hemoglobin A1C Hepatic cirrhosis (Multi) K74.60 -She will continue to follow with her dental hygiene administrative assistant Dr. Nargis Holt at [facility] Disorder involving thrombocytopenia ([facility]-HCC) - Primary D69.6 -Her last CBC was [...] a follow-up Obesity, morbid (Multi) E66.01 Eduardo Murcia DO documented in this [facility] Work Phone: 1(770) 387-915306-07-2024 Instructions* Patient Instructions* Eduardo Murcia DO - 02/26/2024 12:00 PM EDT As we discussed I have ordered a few labs as a follow-up to what we had covered today. I would liketo check a sugar test called a hemoglobin [...] long you spend in bed and even ifyou take a nap you cannot get restful [...] be referred to psychiatry documented in this [facility] Work Phone: 1(100) 577-278405-31-2024 Procedure note* Jaime Holt APRN-CNP - 02/19/2024 10:26 AM EDTAssociated Order(s): LIVER ELASTOGRAPHY Images from the original note were not included. Velocity Controlled Transient Elastography (Fibroscan) Sheather: Nikhil Lawson Attending: Jaime Holt APRN-CNP Patient was identified via name and . Micheline FOX presents to endoscopy suite for VCTE. Referring Provider: HEATHER Johnson Diagnosis: Hepatic cirrhosis, unspecified hepatic cirrhosis type (HCC) (Primary Diagnosis) [[id number]] Fatty liver Two Pt identifiers where confirmed. [...] refer patient to hepatology. Interpreting Provider: Jaime Holt APRN-CNP [id number] Procedure note* Jaime Holt APRN-CNP - 02/19/2024 10:26 AM EDTAssociated Order(s): LIVER ELASTOGRAPHY Images from the original note were not included. Velocity Controlled Transient Elastography (Fibroscan) Sheather: Nikhil Lawson Attending: Jaime Holt APRN-CNP Patient was identified via name and . Micheline FOX presents to endoscopy suite for VCTE. Referring Provider: HEATHER Johnson Diagnosis: Hepatic cirrhosis, unspecified hepatic cirrhosis type (HCC) (Primary Diagnosis) [[id number]] Fatty liver Two Pt identifiers where confirmed. [...] refer patient to hepatology. Interpreting Provider: Jaime Holt APRN-CNP documented in this [id number] Note8:40AM 02-01-2024 Late Addendum: SW received referral on Pt and unable to locate by phone. SW will send f/u letter to assist w/ services and resources. SW waiting to hear back from Pt within 30 days from referral. Sage Momin MSW, SFDC TECHNICAL ARCHITECT Outpatient SW [phone] [facility]2024 History of Present illness Narrative* Sage Momin LISW - 02/01/2024 8:43 AM EDT 8:40AM 02-01-2024 Late Addendum: SW received referral on Pt and unable to locate by phone. SW will send f/u letter to assist w/ services and resources. SW waiting to hear back from Pt within 30 days from referral. Sage Momin MSW, SFDC TECHNICAL ARCHITECT Outpatient SW [phone] * Sage Momin LISW - 01/28/2024 9:36 AM EDT Pt's risk score is 76%. SW received referral for Pt. SW called and left message. SW waiting to hear back from Pt. SW will continue to assist Pt as needed. Sage Momin MSW, SFDC TECHNICAL ARCHITECT Outpatient SW [phone]' documented in this [id number] NotePt's risk score is 76%. SW received referral for Pt. SW called and left message. SW waiting to hear back from Pt. SW will continue to assist Pt as needed. Sage Momin MSW, SFDC TECHNICAL ARCHITECT Outpatient SW [phone]'The [facility]05-09-2024 History of Present illness Narrative* Sage Momin LISW - 01/28/2024 9:36 AM EDT Pt's risk score is 76%. SW received referral for Pt. SW called and left message. SW waiting to hear back from Pt. SW will continue to assist Pt as needed. Sage Momin, GAS DESULFURIZER, SFDC TECHNICAL ARCHITECT Outpatient SW [phone]' documented in this [id number] History of Present illness Narrative* Jaime Holt APRN-CNP - 01/27/2024 2:30 PM EDT Images from the original note [...] of compensated HCV cirrhosis.Referring Provider: Self Patient. Last appt 04/2022. Patient reports she has not followed up sooner due to transportation difficulties and anxiety. Patient has PMhx of HCV (Finished 24 weeks of Sofosbu vir and Ribavirin, SVR achieved), obesity s/p gastric [...] Cuff Size: adult) Pulse 54 Temp 98.4 F(36.9 C) (Temporal) Resp 16 Wt 260 lb [...] MEDICINE SERVICE REQUEST SOCIAL WORK SERVICE REQUEST [facility] WEIGHT MANAGEMENT SERVICE REQUEST 1. Hepatic [...] - including independent interpretation of results when notreported separately) Referring/communicating with other health resident care director - when not reported separately Charting in Epic Total length of time 60 (minutes) of the encounter and more than 50% was spent counseling the patient. Preventative: Follow with PCP regarding age related screening measures. Follow up: Follow up in about 6 months (around 07/29/2024) for in-person visit. Sincerely, Jaime Holt APRN-TELEPHONE ASSEMBLER [facility] Division of Gastroenterology & Hepatology 01/27/24 2:52 PM GI clinic documented in this [id number] Emergency department Note* Jasmina Doll RN - 12/19/2023 8:39 PM EDT Patient educated on risks of leaving against medical advise. Patient verbalized understanding and stated that she would like to signs AMA paperwork. This RN obtained AMA paperwork and witness the patient sign it. AMA paperwork placed in medical records. [facility]03-30-2024 Emergency department Note* Jasmina Doll RN - 12/19/2023 8:39 PM EDT Patient educated on risks of leaving against medical advise. Patient verbalized understanding and stated that she would like to signs AMA paperwork. This RN obtained AMA paperwork and witness the patient sign it. AMA paperwork placed in medical records. * Jasmina Doll RN - 12/19/2023 5:30 PM EDT This RN attempted to place IV x2 attempts. Both attempts unsuccessful. Provider and unemployment insurance hearing officer notified. documented in [facility] Emergency department Note* Jasmina Doll RN - 12/19/2023 5:30 PM EDT This RN attempted to place IV x2 attempts. Both attempts unsuccessful. Provider and unemployment insurance hearing officer notified. [facility]10-11-2023 History of Present illness Narrative* Yajaira Canales CNP - 07/01/2023 3:44 PM EDT Micheline Fox 1960 CC: 63 y.o. is a she with left knee pain. Chief Complaint Patient presents with Left Knee - Pain . HPI: Knee Pain: Patient presents to the office today with complaints of left knee pain. She reportsthat approximately 3 months ago she started having knee pain without any known injury. She has painalong the medial or inside the knee. She denies any knee instability. She had been seen by her primary care physician who actually ordered an MRI for the left knee. She is taking OTC pain medicationsas needed although they are not providing her [...] total) by mouth 2 (two) times a daywith meals ., Disp: , Rfl: doxepin (SINEQUAN) 50 MG capsule, Take 1 (one) capsule (50 mg total) by mouth nightly ., Disp: 30 capsule, Rfl: 3 hydroCHLOROthiazide (HYDRODIURIL) 25 MG tablet, Take 1 (one) tablet (25 mg total) by mouth daily .,Disp: , Rfl: ipratropium-albuteroL (DUO-NEB) 0.5-2.5 mg/3 ml [...] every 6 (six) hours as needed for wheezing. (Patient taking differently: Inhale 1 (one) puff [...] Procedure: COLONOSCOPY; Surgeon: Joe Colón MD; Location: [facility] Endo; Service: Gastroenterology EGD N/A 07/29/2019 Procedure: ESOPHAGOGASTRODUODENOSCOPY; Surgeon: Joe Colón MD; Location: [facility] Endo; Service: Gastroenterology ESOPHAGOGASTRODUODENOSCOPY 11/13/2020 Isael Hall-[facility] GASTRIC BYPASS 1996 HC LEFT HEART CATH N/A 07/08/2019 Procedure: Left Heart Cath; Surgeon: Hari Acosta MD; Location: [facility]; Service: Cardiovascular HEEL SPUR RESECTION Right 11/14/2020 Procedure: EXCISION HEEL SPUR RIGHT FOOT C-ARM; Surgeon: Digna Reagan DPM; Location: Main OR; Service: Podiatry HERNIA REPAIR 07/16/2016 Jake Hurtado[facility] HYSTERECTOMY 1988 NECK SURGERY 2000 C 4-5 TONSILLECTOMY Social History Socioeconomic History Marital status: Tobacco Use Smoking status: Former Packs/day: 0 Types: Cigarettes Quit date: 2018 Years since quittin.7 Smokeless tobacco: Never Tobacco [...] On the lateral view there is a pfmn-bb-nzla appearance in the medial compartment. Mild lateral [...] None Follow Up: No follow-ups on file. Yajaira Canales CNP documented in this [id number] Miscellaneous Notes* Nursing Notes - Keara Burrell RN - 05/26/2023 4:00 PM EDT AVS/education given by RN; all questions addressed and Pt stated understanding. Assessment unchanged and no complaints. Both IVs intact when removed per policy. Telemetry removed and returned. Patient dressed and waiting for ride at this time. * Plan of Care - Keara Burrell RN - 05/26/2023 1:03 PM EDT Problem: Patient Care Overview Goal: [...] discharge/transition of care. Outcome: Adequate for Discharge * Nursing Notes - Keara Burrell RN - 05/26/2023 12:30 PM EDT No changes noted from previous assessment. Patient ambulated with physical therapy and appeared to be doing very well. Patient denies any needs and is resting comfortably at this time. Will continue to monitor. * Nursing Notes - Benito Guerrero RN - 05/26/2023 4:51 AM EDT Assessment unchanged from prior. Patient resting in bed, call light within reach, Bed alarm on, Patient denies any needs at this time. * Nursing Notes - Benito Guerrero RN - 05/26/2023 12:23 AM EDT Pulse O2 was in mid 80s Put patient on 2L NC, New Pulse O2 94%, Assessment otherwise unchanged fromprior. Patient resting in bed, call light within reach, Bed alarm on, Patient denies any needs at this time. * Nursing Notes - Avery Cote RN - 05/25/2023 4:00 PM EDT No changes to previous assessment. * Nursing Notes - Avery Cote RN - 05/25/2023 12:00 PM EDT No change in assessment. * Nursing Notes - Modesto Hernandez RN - 05/25/2023 10:38 AM EDT Social work [place] aware of new consult. * Nursing Notes - Renea Otto RN - 05/25/2023 4:29 AM EDT 2200: pt refusing to wear oxygen at [...] oxygen levels and the need to place theoxygen on. Pt states this nurse can put oxygen on but only for a little bit. * Plan of Care - Renea Otto RN - 05/25/2023 2:56 AM EDT Problem: Patient Care Overview Goal: Plan [...] care. Outcome: Ongoing * Nursing Notes - Navya Kelsey RN - 05/25/2023 12:00 AM EDT 2015- Patient assessed. See flowsheets for assessment details. 0015- No new changes from previous assessment unless noted in flow sheet. 0415 - Assessment unchanged with any exceptions noted in the flowsheet. Patient denies further needs and is left with call light and personals in reach. * Nursing Notes - Masha Page RN - 05/24/2023 4:00 PM EDT No new changes from previous assessment unless noted in flow sheet. * Nursing Notes - Masha Page RN - 05/24/2023 12:00 PM EDT No new changes from previous assessment unless noted in flow sheet. * Nursing Notes - Katy Meier RN - 05/24/2023 5:56 AM EDT Patient wakes up and asks for something to help her go back to sleep. Discussed that she has beensleeping and that it is now morning, and [...] support given- call light left in reach. * Nursing Notes - Katy Meier RN - 05/24/2023 5:21 AM EDT Patient assessment remains unchanged. She has been sleeping, call light in reach. * Nursing Notes - Katy Meier RN - 05/24/2023 12:09 AM EDT Patient resting quietly, wearing 2L O2. Sleeping between cares. Assessment is unchanged. BP appearsimproved as of this time. Call light within reach. * Nursing Notes - Katy Meier RN - 05/23/2023 7:42 PM EDT Patient assessment is completed. She is still having a headache 03/30 and some nausea after eating her supper. Discussed medications and POC. PRN meds given. She denies further needs at this time, call light is left in reach. * Nursing Notes - Masha Page RN - 05/23/2023 4:00 PM EDT No new changes from previous assessment. * Nursing Notes - Loida Chakraborty RN - 05/23/2023 11:30 AM EDT No change in assessment noted. Patient remains drowsy in bed but vocalizing anxiety. * Nursing Notes - Loida Chakraborty RN - 05/23/2023 9:40 AM EDT Patient more awake and ready for breakfast. Ordered by this RN per patient request. * Nursing Notes - Loida Chakraborty RN - 05/23/2023 9:20 AM EDT Patient awake but drowsy, ambulated to bathroom x 1 assist. Urine specimen collected as ordered andsent to lab. Assisted back to bed and reconnected to monitor. * Nursing Notes - Franklyn Osorio RN - 05/23/2023 4:34 AM EDT No change in assessment, Headache has subsided and is gone. * Nursing Notes - Franklyn Osorio RN - 05/23/2023 12:19 AM EDT No change noted on assessment. * Nursing Notes - Franklyn Osorio RN - 05/22/2023 9:03 PM EDT Called Dedra Baker NP for orders regarding new admit. See new orders. documented in this [facility]09-05-2023 Nurse Note* Nursing Notes - Keara Burrell RN - 05/26/2023 4:00 PM EDT AVS/education given by RN; all questions addressed and Pt stated understanding. Assessment unchanged and no complaints. Both IVs intact when removed per policy. Telemetry removed and returned. Patient dressed and waiting for ride at this time. [facility]09-05-2023 History of Present illness Narrative* ADIA Lopez - 05/26/2023 2:54 PM EDT Followed up with [facility], she confirms that they can accept for home health. Discharge orders faxed. * Anay Woody RRT - 05/26/2023 1:18 PM EDT Oxygen saturation 92% on room air at rest. * ADIA Lopez - 05/26/2023 1:00 PM EDT Consulted with Victorino HODGE, patient did well with PT. Followed up with patient, she feels comfortabledischarging home with home health. Cancelled referral to [facility]. Spoke with Yuki at [facility], they do not take patient's insurance and suggested calling home health. Spoke with Alma Delia at [facility] but she states that since patient's PCP is not through they can't accept. Referral faxed to [facility]. * Victorino Michael PTA - 05/26/2023 12:38 PM EDT 05/26/23 1155 Time In/Out Time In 1155 [...] has assistane when entering/exiting home. Spoke with DRILL RUNNER HELPER Lee Adan and notified him aswell. Pt then completed B LE ther ex including marches, LAQs, hip abd, ankle pumps, and pillow squeezes x10 reps each. Pt remained sitting in bedside chair with LEs elevated and call light left within reach. Transfer Skill: Sit To Stand, Rehab Eval Overton (Sit-Stand Transfers) (SBA) Physical Assist/Nonphysical Assist: Sit/Stand 1 person assist Weight-Bearing Restrictions: Sit/Stand full weight-bearing Assistive Device For Transfer: Sit/Stand 2 wheeled walker Gait Skills, PT Eval Level of Overton: Gait stand-by assist Gait Distance (100ft x2) Gait Analysis, PT Eval Gait Pattern Used swing-through gait Gait Deviations Identified (Gait) decreased gait speed;decreased gideon;decreased step length;decreased stride length Impairments Contributing To Gait Deviations decreased strength;other (see comments) (decreased endurance) Stair Negotiation Overton Level: Stair Negotiation stand-by assist Physical Assist: Stair Negotiation (1 person) Weight-Bearing Restrictions: Stair Negotiation full weight-bearing Assistive Device: Stair Negotiation right rail (ascending) Number of stairs 8 Stair Railings present on right side (ascending) Plan Plan for next visit Cont with LE strengthening ex, transfers, and mobility Maintain frequency yes * ADIA Lopez - 05/26/2023 8:38 AM EDT Chart reviewed. Followed up with patient who continues to request SNF placement due to not having any help at home but states she only wants to stay a week. Reminded patient of need for insurance approval and if denied, can set up home health at home. Spoke with [place]/admissions at [facility] whostates they take her insurance and will review the referral. Referral faxed. * Giorgi Adan APRN-TELEPHONE ASSEMBLER - 05/25/2023 11:15 AM EDT DAILY PROGRESS NOTE Admit Date: 05/22/2023 Date of Evaluation: 1:15 AM [facility] LOS: 0 days Chief complaint: Hypertensive urgency SUBJECTIVE: Patient seen and examined. Chart, medications, labs all reviewed. Patient denies all reports of Headache Blurred Vision, Dizziness, Fever, Chills, Nausea, Vomiting, Diarrhea, or Pain. Vital Signs: Blood pressure (!) 143/93, pulse 93, temperature 97.3 F (36.3 C), temperature source Temporal, resp. rate 15, height 1.651 m (5' 5), weight 128.8 kg (284 lb), SpO2 90 [...] index (BMI) of45.0 to 49.9 in adult Chronic hepatitis C [...] patient, the details of my visit are listedin my documentation above. Associated attestation - Cristiano [...] clear to auscultation bilaterally with diminished volumes. Heartexam is regular. Normal S1, S2. No S3. [...] Will continue with supportive care. Await social scientist for assistance with disposition. Continue supportive care. See orders. I have reviewed gerard aspects of the assessments and plan with the TELEPHONE ASSEMBLER and agree with documentation outlined in addition to my notations. Cristiano Bee MD 05/25/2023 This note was created with the assistance of Hippflow Speech Dictation Software. While intending to generate a document that actually reflects the content of the visit, the document can still have someerrors including those of syntax and sound a like substitutions which may escape proof reading. In such instances, actual meaning can be extrapolated by contextual diversion. * Ashley Taina, OT - 05/25/2023 10:37 AM EDT 05/25/23 0940 Time In/Out Time In 0940 [...] Laterality: N/A; Surgeon: Jake Hurtado MD; Location: [facility] MAIN OR HEART CATHETERIZATION Apr 2015 GASTRIC [...] Home Management Skills needs assist (has a assistant executive housekeeper) General Pain Documentation (Adult, OB, Peds) Presence [...] Muscle Testing (MMT) Dominant Hand right Hand Vocational Rehabilitation Supervisor, Right moderate Hand Vocational Rehabilitation Supervisor, Left moderate Manual Muscle Testing Results (bilateral shoulder flexion 3-/5, 4-/5 distally) Bed Mobility Skill: Sit to Supine, Rehab Eval Level of Overton: Sit/Supine minimum assist (75% patients effort) Physical Assist/Nonphysical Assist: Sit/Supine 1 person assist Bed Mobility Skill: Supine to Sit, Rehab Eval Level of Overton: Supine/Sit stand-by assist Physical Assist/Nonphysical Assist: Supine/Sit 1 person assist Transfer Skill: Sit to Stand, Rehab Eval Level of Overton: Sit/Stand contact guard Physical Assist/Nonphysical Assist: Sit/Stand 1 person assist Weight-Bearing Restrictions: Sit/Stand full weight-bearing Assistive Device for Transfer: Sit/Stand wheeled walker Lower Body Dressing Level of Overton moderate assist (50% patients effort) Physical Assist/Nonphysical [...] for ADLs Therapist Information License # [id number] 1. Pt will complete LB dressing min [...] improve functional use of UE for ADLs * ADIA Donis - 05/25/2023 10:30 AM EDT call out clerk SW received a call from PCCAdelina, about patient requesting SNF. Chart reviewed. PT yesterday recommended home no services, OT today recommending SNF and states patient is anxious about goinghome and caring for herself. SW spoke with patient via telephone in room. Patient reports living alone and states she is normally independent but recently I've had a lot of problems with my blood pressure and haven't been able to care for myself as well. She states she has had a friend and a management aide assist her but is requesting SNF for rehab, I think I need to recognize that's what Ineed right now. SW explained will need to find a SNF in network with her insurance and insurance would need to approve SNF placement, patient verbalized understanding. She is also aware due to beingLabor hol, SNF might not have admissions working today and even if so insurance is not likely to give answer today. Patient lives in [place] and is requesting 1-[facility], 2-[facility], and states does not have a preference after that. SISI spoke with Johnny, [facility], who reports admissions is off today and he is not sure if they are in network. SISI spoke with Cindy, admissions at [facility], who reports facility is not in network with insurance but only 2 facilities in [place] that are in network are [facility] and [facility]. [facility], admissions not working today. SW to update [facility] to continue working on SNF placement tomorrow. PCC updated. * Butch Terrazas, PT - 05/24/2023 3:17 PM EDT 05/24/23 1517 Time In/Out Time In 1517 [...] DVPRS (Defense and Veterans Pain Rating Scale) (Adult- Cognitively Intact) DVPRS (Defense and Veterans Pain Rating [...] Transfer Skill: Sit To Stand, Rehab Eval Overton (Sit-Stand Transfers) supervision Gait Skills, PT Eval Level of Overton: Gait stand-by assist Gait Distance 50 feet Gait Analysis, PT Eval Gait Pattern Used swing-through gait Gait Deviations Identified (Gait) decreased gideon;decreased gait speed;decreased heel strike;decreased step length;decreased stride length Impairments Contributing To Gait Deviations impaired balance;impaired postural control;decreased strength Stair Negotiation Overton Level: Stair Negotiation not tested Plan of Care Interventions Planned Therapy Interventions balance training;bed mobility training;functional activity tolerance;endurance;gait training;strengthening;stretching;transfer training Assessment Assessment Narrative Pt presents with [...] yes, treatment indicated Impairments Found (PT Eval) Strength;Balance;Posture;Transfers;Gait/Locomotion Rehab Potential (PT Eval) good Therapy Frequency [...] stair negotiation Therapist Information License # [id number] 1. Pt will demonstrate a TUG < 15 decrease fall risk. 2. Pt will perform all transfers with mod I to ensure safety at home. 3. Pt will ambulate 250 with mod I and LRAD to ensure safety with short community ambulation. 4. Pt will ambulate up and down 4 steps with rail and supervision. 5. Pt will be independent with HEP. * Calvin Pimentel DO - 05/24/2023 12:07 PM EDT INTERVAL HISTORY Patient seen and examined independently. [...] index (BMI) of45.0 to 49.9 in adult Chronic hepatitis C virus infection KELLY (obstructive sleep apnea) Thrombocytopenia Elevated LFTs Mixed hyperlipidemia Hyperglycemia Tension type headache Code Status Full Code Additional medications reviewed in electronic medical record and noted. documented in this [facility]09-05-2023 Hospital course Narrative* Giorgi Adan APRN-TELEPHONE ASSEMBLER - 05/26/2023 1:26 PM EDT Images from the original note [...] index (BMI) of45.0 to 49.9 in adult Chronic hepatitis C [...] resp. rate 20, height 1.651 m (5' 5), weight 128.1 kg (282 lb 8 oz), [...] as tolerated. Discharge Follow-up: Leticia Sylvester MD [address] [place] [id number] Follow up in 1 week(s) Discharge Disposition: Patient will be discharged in stable condition to Home with [facility] Discharge Time: Including assessment, planning, and medication reconciliation was 15 minutes Lee Adan CNP completing Discharge Summary for attending physician. Please note Portions of this note utilized Hippflow dictation software, please excuse any typographical or grammatical errors Associated attestation - Cristiano Bee MD - 05/26/2023 9:34 PM EDT Patient seen and examined independently on date of exam on 05/26/2023 with TELEPHONE ASSEMBLER at bedside. Overnight there were no events reported. Patient did well with PT and has now decided to discharge home with home healthcare. Otherwise patient has no complaints. Cardiac, ID, GI, pulmonary ROS is negative. On exam, patient is alert. Nontoxic. Speech clear nonlabored. Vital signs reviewed. Afebrile. Lungsclear bilaterally. Heart exam is regular. Normal S1, S2. No S3. Abdomen soft. Obese. Bowel sounds present. Nontender. No rebound or guarding. Bilateral lower extremities are obese. No lower extremityedema. There is no new gross focal neurologic deficit. Patient has ambulated without assist. She isalert and oriented x3. Labs reviewed. Patient is clinically stable for discharge and now has decided not to discharge to SNF. She is now agreeable to discharge home with home health care. She will follow-up as recommended. Medication Compliance and FU has been stressed to patient. See orders. I have reviewed gerard aspects of the assessments and plan with the TELEPHONE ASSEMBLER and agree with documentation outlined in addition to my notations. 40 minutes discharge time spent, inclusive of time documented by TELEPHONE ASSEMBLER. Cristiano Bee MD 05/26/2023 This note was created with the assistance of Hippflow Speech Dictation Software. While intending to generate a document that actually reflects the content of the visit, the document can still have someerrors including those of syntax and sound a like substitutions which may escape proof reading. In such instances, actual meaning can be extrapolated by contextual diversion. [facility] Plan of care note* Plan of Care - Keara Burrell RN - 05/26/2023 1:03 PM EDT Problem: Patient Care Overview Goal: [...] discharge/transition of care. Outcome: Adequate for Discharge [facility]09-05-2023 Nurse Note* Nursing Notes - Keara Burrell RN - 05/26/2023 12:30 PM EDT No changes noted from previous assessment. Patient ambulated with physical therapy and appeared to be doing very well. Patient denies any needs and is resting comfortably at this time. Will continue to monitor. [facility]09-05-2023 Nurse Note* Nursing Notes - Benito Guerrero RN - 05/26/2023 4:51 AM EDT Assessment unchanged from prior. Patient resting in bed, call light within reach, Bed alarm on, Patient denies any needs at this time. [facility]09-05-2023 Nurse Note* Nursing Notes - Benito Guerrero RN - 05/26/2023 12:23 AM EDT Pulse O2 was in mid 80s Put patient on 2L NC, New Pulse O2 94%, Assessment otherwise unchanged fromprior. Patient resting in bed, call light within reach, Bed alarm on, Patient denies any needs at this time. [facility]09-04-2023 Nurse Note* Nursing Notes - Avery Cote RN - 05/25/2023 4:00 PM EDT No changes to previous assessment. [facility]09-04-2023 Nurse Note* Nursing Notes - Avery Cote RN - 05/25/2023 12:00 PM EDT No change in assessment. [facility]09-04-2023 Nurse Note* Nursing Notes - Modesto Hernandez RN - 05/25/2023 10:38 AM EDT Social work Flower aware of new consult. [facility]09-04-2023 Nurse Note* Nursing Notes - Renea Otto RN - 05/25/2023 4:29 AM EDT 2200: pt refusing to wear oxygen at [...] oxygen levels and the need to place theoxygen on. Pt states this nurse can put oxygen on but only for a little bit. [facility]09-04-2023 Plan of care note* Plan of Care - Renea Otto RN - 05/25/2023 2:56 AM EDT Problem: Patient Care Overview Goal: Plan [...] outcomes by discharge/transition of care. Outcome: Ongoing [facility]09-04-2023 Nurse Note* Nursing Notes - Navya Kelsey RN - 05/25/2023 12:00 AM EDT 2015- Patient assessed. See flowsheets for assessment details. 0015- No new changes from previous assessment unless noted in flow sheet. 0415 - Assessment unchanged with any exceptions noted in the flowsheet. Patient denies further needs and is left with call light and personals in reach. [facility]09-03-2023 Nurse Note* Nursing Notes - Masha Page RN - 05/24/2023 4:00 PM EDT No new changes from previous assessment unless noted in flow sheet. [facility]-03-2023 Nurse Note* Nursing Notes - Masha Page RN - 05/24/2023 12:00 PM EDT No new changes from previous assessment unless noted in flow sheet. [facility]09-03-2023 Nurse Note* Nursing Notes - Katy Meier RN - 05/24/2023 5:56 AM EDT Patient wakes up and asks for something to help her go back to sleep. Discussed that she has beensleeping and that it is now morning, and [...] support given- call light left in reach. [facility] Nurse Note* Nursing Notes - Katy Meier RN - 05/24/2023 5:21 AM EDT Patient assessment remains unchanged. She has been sleeping, call light in reach. [facility]09-03-2023 Nurse Note* Nursing Notes - Katy Meier RN - 05/24/2023 12:09 AM EDT Patient resting quietly, wearing 2L O2. Sleeping between cares. Assessment is unchanged. BP appearsimproved as of this time. Call light within reach. [facility]09-02-2023 Nurse Note* Nursing Notes - Katy Meier RN - 05/23/2023 7:42 PM EDT Patient assessment is completed. She is still having a headache 03/30 and some nausea after eating her supper. Discussed medications and POC. PRN meds given. She denies further needs at this time, call light is left in reach. [facility]09-02-2023 Nurse Note* Nursing Notes - Masha Page RN - 05/23/2023 4:00 PM EDT No new changes from previous assessment. [facility]09-02-2023 History and physical note* Giorgi Adan APRN- ORTIZ - 05/23/2023 11:57 AM EDT History and Physical Examination Admit date: 05/22/2023 [...] her family members over the past couple ofyears. Objective: Past Medical History: Diagnosis Date Adverse drug reaction Possible drug reaction to Sovaldi and Ribavirin but not confirmed. Anxiety Chronic hepatitis C without mention of hepatic coma Depression Hernia of abdominal cavity 2011 Hypertension Kidney infection Liver cirrhosis Obesity Shingles Past Surgical History: Procedure Laterality Date EGD DIAGNOSTIC N/A 11/13/2020 Laterality: N/A; Surgeon: Isael Hall MD; Location: [facility] ENDOSCOPY REPAIR HERNIA VENTRAL OPEN W/ MESH N/A 07/16/2016 Laterality: N/A; Surgeon: Jake Hurtado MD; Location: [facility] MAIN OR HEART CATHETERIZATION Apr 2015 GASTRIC [...] tablet (2.5 mg) by oral route once dailySuspended Brexpiprazole 2 MG tablet Take by mouth daily. (Patient not taking: Reported on 05/22/2023) Not Taking bumetanide 1 MG tablet Take 1 tablet by mouth daily. Cholecalciferol 50 MCG (2000 UT) tablet Vitamin D3 2,000 unit oral tablet take tablet by oral routedaily Active docusate 100 MG capsule Take 2 [...] mg) by oral route 2 times per daySuspended hydrALAZINE 25 MG tablet Take 1 tablet by mouth 3 times daily. hydrALAZINE 50 MG tablet Take 1 tablet by mouth 3 times daily. ipratropium-albuterol 0.5-2.5 (3) MG/3ML nebulizer solution Take 3 mL by nebulization every 6 hoursas needed. Lisinopril 10 MG tablet lisinopril 10 mg oral tablet take 1 tablet (10 mg) by oral route once dailySuspended losartan 50 MG tablet Take 1 tablet [...] tablet (50 mg) by oral route once dailySuspended topiramate 25 MG tablet Take 50 mg [...] 05/22/2023 YELLOW APPEARANCE, URINE 05/22/2023 CLEAR Specific [place], Urine 05/22/2023 1.020 PH URINE 05/22/2023 5.5 [...] mass index (BMI) of45.0 to 49.9 in adult: Diet and lifestyle [...] patient, the details of my visit are listedin my documentation above. Plan of care was initiated in collaboration with attending physician. Please note Portions of this note utilized Hippflow dictation software, please excuse any typographical or grammatical errors Associated attestation - Calvin Pimentel DO - 05/23/2023 1:13 PM EDT Patient seen and examined independently. Meds, labs, and radiographs reviewed. +SBP 250 w/ CP and SOB - Admitted to ICU on Cardene gtt. All additional ROS NEG. Somnolent speakingin 4-5 word sentences. HEENT NC/AT PERRLA MM [...] the MDM for this encounter. OBS admit. [facility]09-02-2023 History and physical note* Giorgi Adan, RECRUITING TEAM LEAD- TELEPHONE ASSEMBLER - 05/23/2023 11:57 AM EDT History and Physical Examination Admit date: 05/22/2023 [...] her family members over the past couple ofyears. Objective: Past Medical History: Diagnosis Date Adverse drug reaction Possible drug reaction to Sovaldi and Ribavirin but not confirmed. Anxiety Chronic hepatitis C without mention of hepatic coma Depression Hernia of abdominal cavity 2011 Hypertension Kidney infection Liver cirrhosis Obesity Shingles Past Surgical History: Procedure Laterality Date EGD DIAGNOSTIC N/A 11/13/2020 Laterality: N/A; Surgeon: Isael Hall MD; Location: [facility] ENDOSCOPY REPAIR HERNIA VENTRAL OPEN W/ MESH N/A 07/16/2016 Laterality: N/A; Surgeon: Jake Hurtado MD; Location: [facility] MAIN OR HEART CATHETERIZATION Apr 2015 GASTRIC [...] tablet (2.5 mg) by oral route once dailySuspended Brexpiprazole 2 MG tablet Take by mouth daily. (Patient not taking: Reported on 05/22/2023) Not Taking bumetanide 1 MG tablet Take 1 tablet by mouth daily. Cholecalciferol 50 MCG (2000 UT) tablet Vitamin D3 2,000 unit oral tablet take tablet by oral routedaily Active docusate 100 MG capsule Take 2 [...] mg) by oral route 2 times per daySuspended hydrALAZINE 25 MG tablet Take 1 tablet by mouth 3 times daily. hydrALAZINE 50 MG tablet Take 1 tablet by mouth 3 times daily. ipratropium-albuterol 0.5-2.5 (3) MG/3ML nebulizer solution Take 3 mL by nebulization every 6 hoursas needed. Lisinopril 10 MG tablet lisinopril 10 mg oral tablet take 1 tablet (10 mg) by oral route once dailySuspended losartan 50 MG tablet Take 1 tablet [...] tablet (50 mg) by oral route once dailySuspended topiramate 25 MG tablet Take 50 mg [...] 05/22/2023 YELLOW APPEARANCE, URINE 05/22/2023 CLEAR Specific [place], Urine 05/22/2023 1.020 PH URINE 05/22/2023 5.5 [...] mass index (BMI) of45.0 to 49.9 in adult: Diet and lifestyle [...] patient, the details of my visit are listedin my documentation above. Plan of care was initiated in collaboration with attending physician. Please note Portions of this note utilized Hippflow dictation software, please excuse any typographical or grammatical errors Associated attestation - Calvin Pimentel DO - 05/23/2023 1:13 PM EDT Patient seen and examined independently. Meds, labs, and radiographs reviewed. +SBP 250 w/ CP and SOB - Admitted to ICU on Cardene gtt. All additional ROS NEG. Somnolent speakingin 4-5 word sentences. HEENT NC/AT PERRLA MM [...] this encounter. OBS admit. [facility]* Nursing Notes - Loida Chakraborty RN - 05/23/2023 11:30 AM EDT No change in assessment noted. Patient remains drowsy in bed but vocalizing anxiety. [facility]09-02-2023 Nurse Note* Nursing Notes - Loida Chakraborty RN - 05/23/2023 9:40 AM EDT Patient more awake and ready for breakfast. Ordered by this RN per patient request. T [facility]09-02-2023 Nurse Note* Nursing Notes - Loida Chakraborty RN - 05/23/2023 9:20 AM EDT Patient awake but drowsy, ambulated to bathroom x 1 assist. Urine specimen collected as ordered andsent to lab. Assisted back to bed and reconnected to monitor. T [facility]09-02-2023 Nurse Note* Nursing Notes - Franklyn Osorio RN - 05/23/2023 4:34 AM EDT No change in assessment, Headache has subsided and is gone. [facility]09-02-2023 Nurse Note* Nursing Notes - Franklyn Osorio RN - 05/23/2023 12:19 AM EDT No change noted on assessment. [facility]09-01-2023 Nurse Note* Nursing Notes - Franklyn Osorio RN - 05/22/2023 9:03 PM EDT Called Dedra Baker NP for orders regarding new admit. See new orders. [facility]09-01-2023 Emergency department Note* Ann-Marie Yeboah RN - 05/22/2023 8:41 PM EDT Patient transferred upstairs to ICU on continuous 02 and cardiac monitoring. Patient taken up with all belongings and in stable condition. Patient taken up with ECG, report sheet, and extra sticker [facility]09-01-2023 Emergency department Note* Ann-Marie Yeboah RN - 05/22/2023 8:41 PM EDT Patient transferred upstairs to ICU on continuous 02 and cardiac monitoring. Patient taken up with all belongings and in stable condition. Patient taken up with ECG, report sheet, and extra sticker * KIRSTEN Bryant - 05/22/2023 7:[address] Adan for dr Dumont notifying him of Dr. Pimentel accepting pt. * KIRSTEN Bryant - 05/22/2023 7:00 PM EDT Bed assignment# [id number] * Ann-Marie Yeboah RN - 05/22/2023 5:20 PM EDT Report to ARLEEN Ledesma * Jessica Carr RN - 05/22/2023 4:[address] Dumont at [facility]. * Jose Eduardo Dumont MD - 05/22/2023 4:46 PM EDT Emergency Room Note [facility] EMERGENCY [facility] Service Date:.05/22/23 PCP: Leticia Sylvester Chief Complaint: Chief Complaint Patient presents with Hypertension States was at the store and checked bp and it was increased. C/o of chest pain and shortness of breath since yesterday. JOSE Fox is a 63 y.o. female presents [...] me she hurts all over but this isnot out of the ordinary. Review of Systems: [...] No change in smell or taste. Patient's [place] automated prescription reporting System report was reviewed. [...] Laterality: N/A; Surgeon: Isael Hall MD; Location: [facility] ENDOSCOPY REPAIR HERNIA VENTRAL OPEN W/ MESH [...] tablet (2.5 mg) by oral route once dailySuspended ASPIRIN [address] TABLET Aspir-81 [...] unit oral tablet take tablet by oral routedaily Active CYCLOBENZAPRINE 10 MG TABLET Take 1 [...] mg) by oral route 2 times per daySuspended HYDRALAZINE 25 MG TABLET Take 1 tablet by mouth 3 times daily. HYDRALAZINE 50 MG TABLET Take 1 tablet by mouth 3 times daily. IPRATROPIUM-ALBUTEROL 0.5-2.5 (3) MG/3ML NEBULIZER SOLUTION Take 3 mL by nebulization every 6 hoursas needed. LISINOPRIL 10 MG TABLET lisinopril 10 mg oral tablet take 1 tablet (10 mg) by oral route once dailySuspended LOSARTAN 50 MG TABLET Take 1 tablet [...] tablet (50 mg) by oral route once dailySuspended TIZANIDINE 4 MG TABLET take 1 tablet [...] -- -- -- -- 1.651 m (5' 5) 127 kg (280 lb) 05/22/23 1646 (!) 250/126 98.6 F (37 C) Oral 66 18 94 % -- -- Orders/Results: EKG: Sinus rhythm at 69 beats per minute. Watson is normal. WY interval is 176 milliseconds. QRS duration 78 milliseconds. There is some baseline irregularity and nonspecific ST T wave changes. T-wave inversion in V1 and lead 3. This may be normal variant. There is a little flattening of the anterior lateral ST segments. No acute ST elevation. There is some coping now the ST segments. Q- waves are present in lead 3. It is [...] with this. I spoke to the nursing solid waste facility supervisor who is making arrangements for a bed Clinical Impression: 1. Hypertensive urgency 2. Acute intractable headache, unspecified headache type 3. Anxiety No follow-ups on file. New Prescriptions No medications on file Discontinued Medications No medications on file An After Visit Summary was printed and given to the patient with above information. . Jose Eduardo Dumont MD 05/22/23 6606 [facility] Emergency department Note* KIRSTEN Bryant - 05/22/2023 7:[address] Adan for dr Dumont notifying him of Dr. Pimentel accepting pt. [facility]-01[facility] Emergency department Note* KIRSTEN Bryant - 05/22/2023 7:00 PM EDT Bed assignment# [id number] [facility]09-01-[facility] Emergency department Note* Ann-Marie Yeboah RN - 05/22/2023 5:20 PM EDT Report to ARLEEN Ledesma [facility]09-01-[facility] Emergency department Note* Jessica Carr RN - 05/22/2023 4:[address] Dumont at [facility]. [facility]09-01-2023 Physician Emergency department Note* Jose Eduardo Dumont MD - 05/22/2023 4:46 PM EDT Emergency Room Note [facility] EMERGENCY DEPARTMENT Service Date:.05/22/23 PCP: Leticia Sylvester Chief Complaint: Chief Complaint Patient presents with Hypertension States was at the store and checked bp and it was increased. C/o of chest pain and shortness of breath since yesterday. JOSE Fox is a 63 y.o. female presents [...] me she hurts all over but this isnot out of the ordinary. Review of Systems: [...] No change in smell or taste. Patient's [place] automated prescription reporting System report was reviewed. [...] tablet (2.5 mg) by oral route once dailySuspended ASPIRIN [address] TABLET Aspir-81 [...] unit oral tablet take tablet by oral routedaily Active CYCLOBENZAPRINE 10 MG TABLET Take 1 [...] mg) by oral route 2 times per daySuspended HYDRALAZINE 25 MG TABLET Take 1 tablet by mouth 3 times daily. HYDRALAZINE 50 MG TABLET Take 1 tablet by mouth 3 times daily. IPRATROPIUM-ALBUTEROL 0.5-2.5 (3) MG/3ML NEBULIZER SOLUTION Take 3 mL by nebulization every 6 hoursas needed. LISINOPRIL 10 MG TABLET lisinopril 10 mg oral tablet take 1 tablet (10 mg) by oral route once dailySuspended LOSARTAN 50 MG TABLET Take 1 tablet [...] tablet (50 mg) by oral route once dailySuspended TIZANIDINE 4 MG TABLET take 1 tablet [...] -- -- -- -- 1.651 m (5' 5) 127 kg (280 lb) 05/22/23 1646 (!) 250/126 98.6 F (37 C) Oral 66 18 94 % -- -- Orders/Results: EKG: Sinus rhythm at 69 beats per minute. Watson is normal. WY interval is 176 milliseconds. QRS duration 78 milliseconds. There is some baseline irregularity and nonspecific ST T wave changes. T-wave inversion in V1 and lead 3. This may be normal variant. There is a little flattening of the anterior lateral ST segments. No acute ST elevation. There is some coping now the ST segments. Q- waves are present in lead 3. It is [...] with this. I spoke to the nursing solid waste facility supervisor who is making arrangements for a bed Clinical Impression: 1. Hypertensive urgency 2. Acute intractable headache, unspecified headache type 3. Anxiety No follow-ups on file. New Prescriptions No medications on file Discontinued Medications No medications on file An After Visit Summary was printed and given to the patient with above information. . Jose Eduardo Dumont MD 05/22/23 6143 [facility]07-28[facility] History of Present illness Narrative* Ishaan Raines MD - 04/17/2023 2:34 PM EDT OFFICE CONSULTATION NOTE [facility] [address] ([address]) [facility] [address] [facility] [id number] Physicians: Leticia Sylvester MD (Family); Leticia [...] vascular-related pain. Recommendation would be for further investigationby primary care provider into other etiologies - [...] (one) tablet (2.5 mg total) by mouth daily. [DISCONTINUED] aspirin 81 MG EC tablet Take [...] (one) tablet (10 mg total) by mouth 3(three) times a day as needed for muscle [...] Procedure: COLONOSCOPY; Surgeon: Joe Colón MD; Location: [facility] Endo; Service: Gastroenterology EGD N/A 07/29/2019 Procedure: ESOPHAGOGASTRODUODENOSCOPY; Surgeon: Joe Colón MD; Location: [facility] Endo; Service: Gastroenterology ESOPHAGOGASTRODUODENOSCOPY 11/13/2020 Isael K [facility] GASTRIC BYPASS 1997 HC LEFT HEART CATH N/A 07/08/2019 Procedure: Left Heart Cath; Surgeon: Hari Acosta MD; Location: [facility]; Service: Cardiovascular HEEL SPUR RESECTION Right 11/14/2020 Procedure: EXCISION HEEL SPUR RIGHT FOOT C-ARM; Surgeon: Digna Reagan DPM; Location: Main OR; Service: Podiatry HERNIA REPAIR 07/16/2016 Jake Curiel [facility] HYSTERECTOMY 1988 NECK SURGERY 1999 C 4-5 TONSILLECTOMY Family History Problem Relation Age of Onset Stroke Mother TIA-04/29/2016 Melanoma Father Heart attack Father Heart disease Father Hypertension Father Dementia Father Heart failure Father Hypertension Brother No Known Problems Brother Heart disease Maternal Grandmother Heart disease Maternal Grandfather Social History Tobacco Use Smoking status: Former Packs/day: 0.00 Types: Cigarettes Quit date: 2019 Years since quittin.5 Smokeless tobacco: Never Tobacco [...] (one) tablet (2.5 mg total) by mouth daily. [DISCONTINUED] aspirin 81 MG EC tablet Take [...] (one) tablet (10 mg total) by mouth 3(three) times a day as needed for muscle [...] leg Ishaan Raines MD documented in this [id number] Instructions* Patient Instructions* Avery Perkins MA - 04/17/2023 2:06 PM EDT How to contact your care team: Provider: MD Malcolm Ashley CNP Jill Bender, PA Nurse: Sofia Pineda RN To reschedule office appointments call scheduling [phone]. In case of an emergency please call 911. When in need of refills please call the phone number listed above. Please include medication name, pharmacy name and specify 30 or 90 day supply. Please check with your pharmacy within 24 hours of your request for refill. You must follow up as directed to continue current refills. Thank you! documented in this [id number] Emergency department Note* Andrade Ramos RN - 02/16/2023 4:10 PM EDT JAQUELIN Lebron at bedside. [facility] Emergency department Note* Andrade Ramos RN - 02/16/2023 4:10 PM EDT JAQUELIN Lebron at bedside. * Salma Stewart RN - 02/16/2023 3:56 PM EDT Bed: T24 Expected date: Expected time: Means of arrival: Comments: EMS documented in this encounter[facility]-29-[facility] Emergency department Note* Salma Stewart RN - 02/16/2023 3:56 PM EDT Bed: T24 Expected date: Expected time: Means of arrival: Comments: EMS [facility]01-25-[facility] History of Present illness Narrative* Kay Roe - 10/15/2022 1:00 PM ESTAssociated Order(s): CYSTOSCOPY Post-Procedure Diagnose(s): Urinary frequency; Other [...] was obtained. Does this procedure require a Moran Protocol? Yes. Moran Protocol is required. Urine was collected for testing. Procedure: Procedure performed: cystoscopyA 360 survey of the bladder was performed. * Carmen Hernandez LPN - 10/15/2022 1:00 PM EST Nurse Note: Review of Systems Constitutional: Negative. [...] LEUKOCESTUR TRACE (A) 01/30/2022 documented in this [facility]01-25-2023 Procedure note* Emilia Moreland Mahi - 10/15/2022 1:00 PM ESTAssociated Order(s): GENERAL PROCEDURE error [id number] Procedure note* Av Delgado MD - 10/15/2022 1:00 PM ESTAssociated Order(s): GENERAL PROCEDURE Patient Name: Micheline Fox [...] trimethoprimdaily, appropriate use and side effects reviewed. [facility]01-25-2023 Procedure note* Emilia Champagne - 10/15/2022 1:00 PM ESTAssociated Order(s): GENERAL PROCEDURE error * Av Delgado MD - 10/15/2022 1:00 PM ESTAssociated Order(s): GENERAL PROCEDURE Patient Name: Micheline Fox [...] and side effects reviewed. documented in this encounterReg[facility]-11-2023 History of Present illness Narrative* Av Delgado MD - 10/01/2022 12:30 PM EST HISTORY OF PRESENT ILLNESS 62 y.o. female seen today as a new patient for evaluation of hematuria. Patient denies gross hematuria. Reports wetting and spotting of her pads with nonspecific discharge.She has symptoms of pelvic pain, lower back [...] of obstruction or gangrene; Class 3 severe obesitydue to excess calories with serious comorbidity and body mass index (BMI) of 45.0 to 49.9 in adult;S/P hernia repair; Left upper quadrant abdominal pain; [...] Laterality: N/A; Surgeon: Isael Hall MD; Location: [facility] ENDOSCOPY REPAIR HERNIA VENTRAL OPEN W/ MESH N/A 07/16/2016 Laterality: N/A; Surgeon: Jake Hurtado MD; Location: [facility] MAIN OR HEART CATHETERIZATION Apr 2015 GASTRIC [...] within this encounter was likely aided with Hippflow, an electronic case advocate device. Please excuse any grammatical errors or omissions that may not have been recognized at the time of this encounter. * Carmen Kuhn - 10/01/2022 12:30 PM EST Nurse Note: Review of Systems Constitutional: Negative. [...] LEUKOCESTUR TRACE (A) 01/30/2022 documented in this [facility]Reg[facility] Emergency department Note* Loly Beebe RN - 09/01/2022 8:43 PM EST Pt alert, oriented, no signs of distress. Pt discharge instructions reviewed and work excuse handedto pt. Pt placed in wheelchair off unit, room air. Pt escorted by this RN to front entrance. [facility]-12[facility] Emergency department Note* Loly Beebe RN - 09/01/2022 8:43 PM EST Pt alert, oriented, no signs of distress. Pt discharge instructions reviewed and work excuse handedto pt. Pt placed in wheelchair off unit, room air. Pt escorted by this RN to front entrance. * Loly Beebe RN - 09/01/2022 8:20 PM EST When medicating this pt for pain, pt refused both acetaminophen and ibuprofen stating I can take both of these medications at home. This RN stated that our concern for pain management that she wasstill in same 8/10 pain or worse with coming in. Pt still refusing medication. Work note given withdischarge papers * Loly Beebe RN - 09/01/2022 8:15 PM EST This RN went to round and discharge [...] pain and I can't get off for work. This RN stated that I would talk with current provider about both concerns. Provider made aware and orders for medication and work note placed. * Alesha Johnson RN - 09/01/2022 7:50 PM EST This RN to bedside to round on [...] RN made aware of dissatisfaction with care. * Loly Beebe RN - 09/01/2022 7:05 PM EST Bedside report received from Petra BACON * Petra Jones RN - 09/01/2022 6:14 PM EST Pt had an adverse reaction to the Toradol that was given. She stated that Her hand felt like it wason fire. The IV was pulled, medications were stopped and Provider was notified. Pt developed hives on her left hand and arm minutes after the line was pulled. * Bao Hsieh MD - 09/01/2022 4:39 PM EST Emergency Department Report [facility] EMERGENCY DEPARTMENT Service Date:.09/01/22 PCP: Leticia [...] give a flu shot. She states she hashad no sick contacts. She denies any travel. [...] PO CO-PACKAGED TABLETS Take three tablets (2 xnirmatrelvir 150 mg plus 1 x ritonavir 100 [...] Use Authorization (EUA) for the qualitative detection [id number] nucleic acid. INFLUENZA A AND B, PCR [...] placed on paxlovid. Zofran for nausea. During medicationinfusion patient did develop a rash on her [...] PO CO-PACKAGED TABLETS Take three tablets (2 xnirmatrelvir 150 mg plus 1 x ritonavir 100 [...] Bao Hsieh MD 09/01/221840 documented in this encounterReg[facility]12-[facility] Emergency department Note* Loly Beebe RN - 09/01/2022 8:20 PM EST When medicating this pt for pain, pt refused both acetaminophen and ibuprofen stating I can take both of these medications at home. This RN stated that our concern for pain management that she wasstill in same 8/10 pain or worse with coming in. Pt still refusing medication. Work note given withdischarge papers [facility]12-12-2022 Emergency department Note* Loly Beebe RN - 09/01/2022 8:15 PM EST This RN went to round and discharge [...] pain and I can't get off for work. This RN stated that I would talk with current provider about both concerns. Provider made aware and orders for medication and work note placed. [facility]12-12-2022 Emergency department Note* Alesha Johnson RN - 09/01/2022 7:50 PM EST This RN to bedside to round on [...] RN made aware of dissatisfaction with care. [facility]12-12-2022 Emergency department Note* Loly Beebe RN - 09/01/2022 7:05 PM EST Bedside report received from Petra BACON [facility]12-12-2022 Emergency department Note* Petra Jones RN - 09/01/2022 6:14 PM EST Pt had an adverse reaction to the Toradol that was given. She stated that Her hand felt like it wason fire. The IV was pulled, medications were stopped and Provider was notified. Pt developed hives on her left hand and arm minutes after the line was pulled. [facility]12-12-2022 Physician Emergency department Note* Bao Hsieh MD - 09/01/2022 4:39 PM EST Emergency Department Report [facility] EMERGENCY DEPARTMENT Service Date:.09/01/22 PCP: Leticia [...] give a flu shot. She states she hashad no sick contacts. She denies any travel. [...] PO CO-PACKAGED TABLETS Take three tablets (2 xnirmatrelvir 150 mg plus 1 x ritonavir 100 [...] Use Authorization (EUA) for the qualitative detection [id number] nucleic acid. INFLUENZA A AND B, PCR [...] placed on paxlovid. Zofran for nausea. During medicationinfusion patient did develop a rash on her [...] PO CO-PACKAGED TABLETS Take three tablets (2 xnirmatrelvir 150 mg plus 1 x ritonavir 100 [...] above information. . Bao Hsieh MD 09/01/221840 [facility]11-29-2022 History of Present illness Narrative* Eusebia Jones APRN-CNP - 08/19/2022 12:42 PM EST Images from the original note were not included. Department of Gastroenterology GI Clinic Note PCP: Leticia Sylvester Referred by: Referring Provider: Self Patient Last GI Visit: Most recent visit in Gastroenterology was on 04/23/2022 with HEATHER Merino Documentation: Mode: Telephone Patient Patient Work Phone: Patient Cell Preferred phone: [phone] Consent: I confirmed patient understanding of the [...] She does have non erosive gastritis, 2 cmhiatal hernia, one large sigmoid colon poylp removed [...] Taking for the 08/19/22 encounter (Telemedicine) with Eusebia Jones APRN-CNP Medication Sig Dispense Refill esomeprazole (NexIUM) 40 MG capsule Take 1 Capsule by mouth daily (30 minutes before breakfast). 30Capsule 3 sucralfate (CARAFATE) 1 GM tablet Take [...] note was sent to PCP HEATHER Cox [id number] Division of Gastroenterology [facility] documented in this [id number] Note* Addendum Note - Lawrence Russell MD - 08/11/2022 1:30 PM EST Addendum created 08/11/221329 by Lawrence Russell MD Clinical Note Signed [id number] Miscellaneous Notes* Addendum Note - Lawrence Russell MD - 08/11/2022 1:30 PM EST Addendum created 08/11/22 1330 by Lawrence Russell MD Clinical Note Signed * Anesthesia Transfer Of Care - Kari Bonner APRN-CUSTOMER ADVISOR - 08/11/2022 10:32 AM EST Images from [...] Jennifer Khoury MD Anesthesiologist: Lawrence Russell MD CUSTOMER ADVISOR: Kari Bonner APRN-MIMI ESOPHAGOGASTRODUODENOSCOPY AND COLONOSCOPY, GENERAL [...] Left Forearm (Active) Site Assessment WNL;Dressing intact 11/21/22 0914 Infusion Status Port #1 Infusing 08/11/22 0914 Airway Adjunct: Non-Rebreather (Active) Airway Insertion Details [...] was received. JOAO Smith documented in this [id number] Anesthesiology Postoperative evaluation and management note* Anesthesia Postprocedure Evaluation - Lawrence Russell MD - 08/11/2022 12:44 PM EST Anesthesia Postoperative Assessment: Vital Signs (most recent): [...] taking her regular medications. Lawrence Russell MD [place] Work Phone: 1(889) 816-420011-21-2022 Surgical operation note* Anesthesia Postprocedure Evaluation - Lawrence Russell MD - 08/11/2022 12:44 PM EST Anesthesia Postoperative Assessment: Vital Signs (most recent): [...] taking her regular medications. Lawrence Russell MD * Anesthesia Preprocedure Evaluation - Lawrence Russell MD - 08/11/2022 8:52 AM EST ASA: 3 No history of anesthetic complications NPO status: Greater than 8 hours Past Medical History and Review of Systems Pulmonary (+) sleep apnea, Dental ROS (+) teeth problems, Endo (+) obesity ( BMI 47) subway guard (+) post-menopausal, Neuro/Psych (+) depression, Cardiovascular (+) [...] Friends and Family: Once a week Attends Rastafarian Services: Never Active Member of Clubs or [...] Hives Lawrence Russell MD documented in this [id number] Procedure anesthesia Narrative * Procedure Summary Procedure Name Responsible Anesthesiologist Anesthesia Start Time Anesthesia Stop Time ESOPHAGOGASTRODUODENOSCOPY A ND COLONOSCOPY, GENERAL ANESTHESIA Lawrence Russell MD 08/11/22 0946 08/11/22 1033 Events Date Time Event Comment 08/11/2022 0851 0941 AN Equip Check 0946 An Start Data 0946 An Start 0950 Preinduction Verify The anes thesia team has reviewed the patient's vital signs immediately prior to induction. Kari Bonner APRN-CUSTOMER ADVISOR 0951 An Induction 0955 Anesthesia Release 1030 [...] Dayna Houston RN documented in this encounter [id number] Hospital Discharge instructions* Discharge Instructions* Dayna Houston [...] F/U in GI clinic with Eusebia Jones [phone] Hygienic and special care needs: Your throat [...] not heard from your doctor, please call [phone] and leave a message with the medical unit secretary. Literature: Colonic polyps/polypectomy Follow Up: Follow up with Primary Care Provider. If you have any questions or concerns call the nurse line at Leave a message including your name, medical record number or social security number, and a phone number where you can be reached. A nurse will return your call within 24 hours. For problems or concerns, call the [facility] at [phone], Thursday through Thursday 7:30 am -5:00 pm. 24 HOUR ADVICE LINE [phone] I acknowledge that I have read the above home-going instructions, have had the opportunity to ask questions and receive an explanation. I acknowledge that this is my signature and I have been given acopy of the instructions. Patient: Date Reviewing Nurse Date Dr Brody Physicians Name Patient/Caregiver * Attachments The following attachments cannot be sent through Care Everywhere. * Colon Polypectomy (Kittitian) documented in this [id number] Note* Anesthesia Transfer Of Care - HaKari rodríguezAWILDA-CUSTOMER ADVISOR - 08/11/2022 10:32 AM EST Images from [...] Jennifer Khoury MD Anesthesiologist: Lawrence Russell MD CUSTOMER ADVISOR: Kari Bonner APRN-MIMI ESOPHAGOGASTRODUODENOSCOPY AND COLONOSCOPY, GENERAL [...] of the report was received. JOAO Smith [place] Work Phone: 1(805) 650-494711-21-2022 Miscellaneous Notes* OP Note - Jennifer Khoury MD - 08/11/2022 9:30 AM EST Micheline FOX 62 year old Surgical Contact Serial Number: [id number] Location: ENDO 02 Date: 08/11/2022 CLINICAL CODER: Pj Casanova MD ATTENDING:Jennifer Khoury MD Procedure(s): [...] transillumination of right lower quadrant. Prep was [place] Bowel Prep Right Colon: Minor amount of residual staining, small fragments of stool and/or opaque liquid, [place] Bowel Prep Transverse Colon: Minor amount of residual staining, smallfragments of stool and/or opaque liquid, [place] Bowel Prep Left Colon:Minor amount of residual [...] showed internal hemorrhoids. RUQ pain (Primary Diagnosis) [104795] Change in bowel habits [439796] Rectal bleeding [488759] Cirrhosis of liver without ascites, unspecified hepatic cirrhosis type (HCC) [9904572] History of colonic polyps [000420] Esophageal dysphagia [155409] Grade I hemorrhoids [046949] Adenomatous polyp of sigmoid colon [4943770] YULIYA PATH SPECIMEN SENT: yes SPECIMEN: Esophagus, [...] were discussed with the patient and/or legal maintenance representative. The risks, benefits and alternatives were reviewed. Questions regarding anesthesia were answered. Patient and/or legal maintenance representative knows such anesthetics and procedures may be performed by Resident physicians, Certified Anesthesiologist Assistants, or Certified Nurse Anesthetists under the supervision of a physician. The patient /or the patient s legal representativeagree with the plan for anesthesia. Lawrence Russell MD documented in this [id number] Note* OP Note - Jennifer Khoury MD - 08/11/2022 9:30 AM EST Micheline FOX 62 year old Surgical Contact Serial Number: [id number] Location: ENDO 02 Date: 08/11/2022 CLINICAL CODER: Pj Casanova MD ATTENDING:Jennifer Khoury MD Procedure(s): [...] transillumination of right lower quadrant. Prep was [place] Bowel Prep Right Colon: Minor amount of residual staining, small fragments of stool and/or opaque liquid, [place] Bowel Prep Transverse Colon: Minor amount of residual staining, smallfragments of stool and/or opaque liquid, [place] Bowel Prep Left Colon:Minor amount of residual [...] showed internal hemorrhoids. RUQ pain (Primary Diagnosis) [347283] Change in bowel habits [391937] Rectal bleeding [354230] Cirrhosis of liver without ascites, unspecified hepatic cirrhosis type (HCC) [7404228] History of colonic polyps [966635] Esophageal dysphagia [184390] Grade I hemorrhoids [140984] Adenomatous polyp of sigmoid colon [4187080] YULIYA PATH SPECIMEN SENT: yes SPECIMEN: Esophagus, [...] Khoury MD Department of Gastroenterology & Hepatology [place] Work Phone: 1(565) 133-441411-21-2022 Anesthesiology Preoperative evaluation and management note* Anesthesia Preprocedure Evaluation - Lawrence Russell MD - 08/11/2022 8:52 AM EST ASA: 3 No history of anesthetic complications NPO status: Greater than 8 hours Past Medical History and Review of Systems Pulmonary (+) sleep apnea, Dental ROS (+) teeth problems, Endo (+) obesity ( BMI 47) subway guard (+) post-menopausal, Neuro/Psych (+) depression, Cardiovascular (+) [...] Friends and Family: Once a week Attends Rastafarian Services: Never Active Member of Clubs or [...] G Potassium] Penicillins Hives Lawrence Russell MD [id number] Note* Anesthesia Attestation - Lawrence Russell MD - 08/11/2022 8:51 AM EST Anesthesia Attestation ATTESTATION OF INFORMED CONSENT FOR ANESTHESIA Anesthesia options were discussed with the patient and/or legal maintenance representative. The risks, benefits and alternatives were reviewed. Questions regarding anesthesia were answered. Patient and/or legal maintenance representative knows such anesthetics and procedures may be performed by Resident physicians, Certified Anesthesiologist Assistants, or Certified Nurse Anesthetists under the supervision of a physician. The patient /or the patient s legal representativeagree with the plan for anesthesia. Lawrence Russell MD [facility] Work Phone: 1(507) 722-428911-18-2022 History of Present illness Narrative* Lisa Santana RN - 08/08/2022 4:21 PM EST .Patient was identified by name and date of . Lisa Santana RN documented in this [id number] Instructions* Patient Instructions* Giacomo Mc MD - [...] surgery. Contact the Pre-Surgical Evaluation department at [phone] or your surgeon's office with any questions. documented in this [id number] Note* PSE Appt H&P - Giacomo Mc MD - 07/28/2022 1:40 PM EST Images from the original note were not included. Presurgical Evaluation Micheline FOX, [id number] 62 year old Female 07/28/2022 Height: 5' [...] KELLY, done in [facility]. Moderate KELLY. Patient was prescribed CPAP but [...] Procedure Laterality Date ARTHRODESIS, POSTERIOR TECHNIQUE, ATLAS-AXIS 2000 ARTHRODESIS, POSTERIOR/POSTEROLATERAL TECHNIQUE, SINGLE INTERSPACE, LUMBAR 2000 ARTHRODESIS, POSTERIOR/POSTEROLATERAL TECHNIQUE, SINGLE INTERSPACE, LUMBAR 2000 [...] signature: Giacomo Mc MD 1:47 PM 07/28/2022 [facility] Work Phone: [phone] [phone] Note* PSE Appt H&P - Giacomo Mc MD - 07/28/2022 1:40 PM EST Images from the original note were not included. Presurgical Evaluation Micheline FOX, [id number] 62 year old Female 07/28/2022 Height: 5' [...] KELLY, done in [facility]. Moderate KELLY. Patient was prescribed CPAP but [...] signature: Giacomo Mc MD 1:47 PM 07/28/2022 [facility] Work Phone: [phone] 135-315411-07-2022 Note* PSE Appt H&P - Giacomo Mc MD - 07/28/2022 1:40 PM EST Images from the original note were not included. Presurgical Evaluation Micheline FOX, [id number] 62 year old Female 07/28/2022 Height: 5' [...] KELLY, done in [facility]. Moderate KELLY. Patient was prescribed CPAP but [...] signature: Giacomo Mc MD 1:47 PM 07/28/2022 [facility] Work Phone: [phone]) 886-509311-07-2022 Miscellaneous Notes* PSE Appt H&P - Giacomo Mc MD - 07/28/2022 1:40 PM EST Images from the original note were not included. Presurgical Evaluation Micheline FOX, [id number] 62 year old Female 07/28/2022 Height: 5' [...] KELLY, done in [facility]. Moderate KELLY. Patient was prescribed CPAP but [...] MD 1:47 PM 07/28/2022 documented in this [id number] Instructions* Patient Instructions* Eusebia Jones, RECRUITING TEAM LEAD-TELEPHONE ASSEMBLER - 04/23/2022 2:15 PM EDT COLONOSCOPY COLYTE [...] you for the next 24 hours. Location: [facility] [address]: Park in the underground garage of the [facility] off [address], [address] and go through the Emergency Department entrance then immediately turn left and follow the signs to the Endoscopy Suite on the 2nd floor by taking the F elevators OR Park in the surface lot further south on [address], go through the Emergency Department entrance then immediately turn left and follow the signs to the Endoscopy Suite on the 2nd floor by taking the F elevators OR Use Digital [employer] Artist Parking located at the Emergency Department entrance off [address], go through the Emergency Department entrance then immediately turn left and follow the signs to the Endoscopy Suite on the2nd floor by taking the F elevators Please call M-F 7:00am-6:00pm for any pre-procedural questions. After hours, please call to speak to the [facility] Hakii-ms-imle. If you need to cancel this appointment, please call , at least 48 hours before your appointment time. PLEASE BRING IN YOUR INSURANCE CARD AND MEDICATIONS OR LIST OF CURRENT MEDICATIONS. PLEASE LEAVE JEWELRY AT HOME AND DO NOT WEAR HEAVY FRAGRANCE OR NAIL VENEZUELAN WE MAKE EVERY ATTEMPT TO MAINTAIN OUR SCHEDULE; HOWEVER, IT IS NOT ALWAYS POSSIBLE. SOME PROCEDURESMAY TAKE LONGER THAN OTHERS AND OUR CASES ARE SCHEDULED TO FOLLOW ONE ANOTHER. WE APOLOGIZE FOR ANYDELAYS. documented in this [id number] History of Present illness Narrative* Eusebia Jones [...] for the 04/23/22 encounter (Office Visit) with Eusebai Jones APRN-CNP Medication Sig Dispense Refill sucralfate [...] of obesity s/p gastric bypass (in the s), cholecystectomy, hysterectomy, hernia repair with mesh, Hep [...] note was sent to PCP HEATHER Cox [id number] Division of Gastroenterology [facility] documented in this [id number] History of Present illness Narrative* Jaime Holt APRN-CNP - 04/23/2022 11:38 AM EDT Images [...] (around 05/21/2022) for telephone visit (telehealth). Sincerely, HEATHER Johnson [facility] Division of Gastroenterology & Hepatology 04/23/22 12:03 PM GI clinic documented in this [id number] History of Present illness Narrative* Yessi Patel RN - 01/31/2022 10:57 AM EDT Reviewed discharge instructions, medications and follow up appointment with patient. IV and tele removed, patient tolerated. Patient denies any other needs or questions. * HEATHER Shin - 01/29/2022 12:50 PM EDT DAILY PROGRESS NOTE Admit Date: 01/27/2022 Date of Evaluation: 2:50 PM [facility] LOS: 0 days Chief complaint: Chest pain SUBJECTIVE: Patient seen and examined. Chart, medications, labs all reviewed. Patient denies all reports of Headache Blurred Vision, Dizziness, Fever, Chills, Nausea, Vomiting, Diarrhea, or Pain. Vital Signs: Blood pressure 110/68, pulse 61, temperature 97.5 F (36.4 C), temperature source Temporal, resp. rate 20, height 1.651 m (5' 5), weight 129.9 kg (286 lb 4.8 oz), SpO2 94 %. O2 Sat (%): 94 % (01/29 1247) O2 Device: nasal cannula (01/29 1247) Flow [...] lifestyle modifications. UTI (urinary tract infection) - belgica [place] CULTURE CRITERIA NOT MET, NO CULTURE PERFORMED. [...] and examined. All testing reviewed. Discussed with TELEPHONE ASSEMBLER and agree with A/P. When I rounded symptom free. CP later. Troponin no increase. AF, VS normal. Labs stable. Stress in am. Continue ATB's for UTI. Objective: Blood pressure 110/68, pulse 61, temperature 97.5 F (36.4 C), temperature source Temporal, resp. rate 20, height 1.651 m (5' 5), weight 129.9 kg (286 lb 4.8 oz), [...] Use Authorization (EUA) for the qualitative detection [id number] nucleic acid. TROPONIN I, HIGH SENSITIVITY Result [...] YELLOW YELLOW APPEARANCE, URINE CLEAR CLEAR Specific [place], Urine 1.025 1.010 - 1.025 PH URINE [...] normal. Av Bertrand MD 01/29/2022 * Minda Spencer PT - 01/28/2022 4:25 PM EDT 01/28/22 [...] Laterality: N/A; Surgeon: Isael Hall MD; Location: [facility] ENDOSCOPY REPAIR HERNIA VENTRAL OPEN W/ MESH N/A 07/16/2016 Laterality: N/A; Surgeon: Jake Hurtado MD; Location: [facility] MAIN OR HEART CATHETERIZATION Apr 2015 GASTRIC [...] Supine to Sit, Rehab Eval Level of Overton: Supine/Sit independent Transfer Skill: Sit To Stand, Rehab Eval [place] (Sit-Stand Transfers) independent Gait Skills, PT Eval Level of [place]: Gait independent Gait Distance 100 feet Gait [...] next session PT evaluation only * Slime Stewart, RD - 01/28/2022 2:05 PM EDT INITIAL INPATIENT DIETETIC ASSESSMENT Ms. Micheline Fox is a 61 y.o. female admitted to [facility] for: 1. Hypokalemia 2. Chest pain, unspecified type Nutrition Assessment Subjective Assessment/comments: Pt presents to ER with c/o CP, tachycardia, palpitations, high blood pressure, shakiness and weakness. Pt also c/o nausea, headache, dizziness, suspects dehydration and reports that she hasn't been eating well. Found with hypokalemia. Pt has remote hx of RYGB in 1996and is followed by [facility]'s outpatient weight management program; last visit [...] Last 1 Encounters: 01/27/22 1.651 m (5' 5) Wt Readings from Last 10 Encounters: 01/27/22 [...] oz) 09/18/20 (!) 140.6 kg (310 lb) [place] body weight: 57 kg (125 lb 10.6 [...] 01/28/2022 RBC 4.06 01/28/2022 B12 320 02/20/2017 [id number] 18.3 (L) 01/16/2021 FOLATE 13.07 02/20/2017 PMH [...] Information Source Name Micheline Fox Contact Information Set Staff Fitter/SW Added to Care Team Yes This Bottoming Room Supervisor is Primary Set Staff Fitter/SW Yes Set Staff Fitter Name Kay Yadav RN Case Manager's Social Work Contact Name Erma Lopez Living Environment Lives With alone Living Arrangements house Primary Care Provided By self Support System Immediate family Employment/Financial Employed? Yes Employment/Financial Concerns no Source Of Income pension/fdc Financial Concerns none Food Insecurity In the [...] for any discharge needs. [facility]* Nursing Notes - Kerrie Pacheco RN - 01/31/2022 4:34 AM EDT Patient unchanged from previous assessment. Call light and personal items within reach. Patient denies any further needs at this time. [facility]20[facility] Miscellaneous Notes* Nursing Notes - Kerrie Pacheco RN - 01/31/2022 4:34 AM EDT Patient unchanged from previous assessment. Call light and personal items within reach. Patient denies any further needs at this time. * Nursing Notes - Kerrie Pacheco RN - 01/31/2022 12:00 AM EDT Patient called requesting her sleeping pills. I had discussed with her at 2053 [...] at this time. * Nursing Notes - vEa Hamilton RN - 01/30/2022 5:18 PM EDT Pt elects to stay the night at this time. DRILL RUNNER HELPER notified. Orders for ct head and toxicology placed. * Nursing Notes - Eva Hamilton RN - 01/30/2022 5:07 PM EDT Notified Foreign DRILL RUNNER HELPER of patients continued drowsiness and difficulty walking. Patient cannot walk down hallway without using wall railings for support. Patient states that she is absolutely fine to driveand is adamant about doing so. DRILL RUNNER HELPER states to allow patient to stay overnight unless patient opts to leave AMA. * Nursing Notes - Eva Hamilton RN - 01/30/2022 3:58 PM EDT Patient is extremely drowsy, sways while walking, and does not appear capable of providing her own transportation at this time. States that she does not have anyone else she can call. Attempted to notify DRILL RUNNER HELPER. * Nursing Notes - Eva Hamilton RN - 01/30/2022 3:41 PM EDT Physical assessment unchanged since previous assessment from this RN with exceptions noted in flowsheets. Patient denies discomfort/pain. Patient is resting in bed with call light in reach and wheelslocked. Safety is maintained. * Nursing Notes - Eva Hamilton RN - 01/30/2022 3:32 PM EDT Pt states she wants to walk the francis a bit before departing. Patient up walking [...] aware . Dr Alexander was notified by night clerk earlier this am. * Plan of [...] AM EDT Transferred from second floor to [facility]. Denies complaints * Nursing Notes - [...] and ok'd. See MAR. documented in this encounterReg[facility] Note* Nursing Notes - Kerrie Pacheco RN - 01/31/2022 12:00 AM EDT Patient called requesting her sleeping pills. I had discussed with her at 2053 [...] needs at this time. [facility]05-12-2022 Note* Nursing Notes - Eva Hamilton RN - 01/30/2022 5:18 PM EDT Pt elects to stay the night at this time. DRILL RUNNER HELPER notified. Orders for ct head and toxicology placed. [facility]-12-20[facility] Note* Nursing Notes - Eva Hamilton RN - 01/30/2022 5:07 PM EDT Notified Foreign DRILL RUNNER HELPER of patients continued drowsiness and difficulty walking. Patient cannot walk down hallway without using wall railings for support. Patient states that she is absolutely fine to driveand is adamant about doing so. DRILL RUNNER HELPER states to allow patient to stay overnight unless patient opts to leave AMA. [facility]-12-20[facility] Note* Nursing Notes - Eva Hamilton RN - 01/30/2022 3:58 PM EDT Patient is extremely drowsy, sways while walking, and does not appear capable of providing her own transportation at this time. States that she does not have anyone else she can call. Attempted to notify DRILL RUNNER HELPER. [facility]05-12-2022 Note* Nursing Notes - Eva Hamilton RN - 01/30/2022 3:41 PM EDT Physical assessment unchanged since previous assessment from this RN with exceptions noted in flowsheets. Patient denies discomfort/pain. Patient is resting in bed with call light in reach and wheelslocked. Safety is maintained. [facility]-12-[facility] Note* Nursing Notes - Eva Hamilton RN - 01/30/2022 3:32 PM EDT Pt states she wants to walk the francis a bit before departing. Patient up walking hallway with minimal assistance. [facility]05-12-2022 Note* Nursing Notes - Eva Hamilton RN [...] own transportation. Patient verbalizes understanding of instructions. [facility]-12-20[facility] Note* Nursing Notes - Eva Hamilton RN - 01/30/2022 12:09 PM EDT Physical assessment unchanged since previous assessment from this RN with exceptions noted in flowsheets. Patient denies discomfort/konrad. Patient is resting in bed with call light in reach and wheels locked. Safety is maintained. [facility]05-12-20[facility] Hospital course Narrative* Flip Campos, RECRUITING TEAM LEAD- TELEPHONE ASSEMBLER - 01/30/2022 11:19 AM EDT Images from the original note were not included. Discharge Summary Summary Time: 01/30/22 11:19 AM Name: Micheline Fox Age: 61 y.o. Birthday: 1960 Admit Date: 01/27/2022 3:57 PM Discharge Date: 01/30/2022 Brief Summary of Hospital Course: Patient is a 61 y.o. female presents to [facility] for evaluation of not feeling well. Symptomsstarted [...] resp. rate 18, height 1.651 m (5' 5), weight 131.1 kg (289 lb 1.6 oz), SpO2 93 %. O2 Sat (%): 93 % (01/30 100) O2 Device: nasal cannula (01/31 1004) Flow (L/min): 2 (01/30 100) Oxygen Concentration (%): 94 (01/30 0700) Discharge [...] tolerated. Discharge Follow-up: Leticia Sylvester MD [address] [facility] [address] Follow up in 1 week(s) Lawrence Blake MD [address] [facility] [address] Follow up in 1 week(s) Discharge Disposition: Patient will be discharged in stable condition. Discharge Time: Including assessment, planning, and medication reconciliation was greater than 35 min. Flip Campos APRN-TELEPHONE ASSEMBLER completing Discharge Summary for Dr. Bertrand Please note portions of this note utilized Hippflow dictation software, please excuse any typographical or grammatical errors Associated attestation - Av Bertrand MD - 01/30/2022 12:47 PM EDT Patient seen and examined. All testing reviewed. Discussed with TELEPHONE ASSEMBLER and agree with A/P. No pain overnight. AF, VS normal. Labs stable. Stress non-diagnostic. Cardio cleared for discharge with outpt follow up. Objective: Blood pressure 126/67, pulse 78, temperature 98.4 F (36.9 C), temperature source Oral, resp. rate 19, height 1.651 m (5' 5), weight 131.1 kg (289 lb 1.6 oz), [...] Use Authorization (EUA) for the qualitative detection [id number] nucleic acid. TROPONIN I, HIGH SENSITIVITY Result [...] YELLOW YELLOW APPEARANCE, URINE CLEAR CLEAR Specific [place], Urine 1.025 1.010 - 1.025 PH URINE [...] Av Bertrand MD 01/30/2022 documented in this [facility]05-12-[facility]22 Hospital Discharge instructions* Discharge Instr - Activity* HEATHER Delgado - 01/30/2022 11:16 AM EDT AAT * Discharge Instr - Diet* HEATHER Delgado - 01/30/2022 11:16 AM EDT AAT * Attachments The following attachments cannot be sent through Care Everywhere. * Chest Pain (K[place]) documented in this encounterReg[facility]05-12-2022 Consult note* Calvin Alexander MD - 01/30/2022 [...] mg 1 mg Oral Daily Flip Campos, RECRUITING TEAM LEAD-TELEPHONE ASSEMBLER 1 mg at 01/30/22 0935 alum/mag hydrox.-simethicone oral suspension 30 mL 30 mL Oral Q6H PRN Flip Campos, RECRUITING TEAM LEAD-TELEPHONE ASSEMBLER cholecalciferol (VITAMIN D3) tablet 1,000 Units 1,000 Units Oral Daily Flip Campos, RECRUITING TEAM LEAD-TELEPHONE ASSEMBLER 1,000 Units at 01/30/22934 diphenhydrAMINE (BENADRYL) injection 25 mg 25 mg Intravenous Q6H PRN Flip Campos, RECRUITING TEAM LEAD-TELEPHONE ASSEMBLER docusate (COLACE) capsule 200 mg 200 mg Oral QHS Flip Campos, RECRUITING TEAM LEAD-TELEPHONE ASSEMBLER 200 mg at 01/29/222037 DULoxetine (CYMBALTA) capsule DR 60 mg 60 mg Oral Daily Flip Campos, RECRUITING TEAM LEAD-TELEPHONE ASSEMBLER 60 mg at 01/30/22934 [Held by provider] Enoxaparin Sodium (LOVENOX) injection 40 mg 40 mg Subcutaneous Daily Flip Campos, RECRUITING TEAM LEAD-TELEPHONE ASSEMBLER 40 mg at 01/28/222037 hydrALAZINE (APRESOLINE) tablet 25 mg 25 mg Oral TID Flip Campos, RECRUITING TEAM LEAD-TELEPHONE ASSEMBLER 25 mg at 01/30/22934 hydroCODone-acetaminophen (NORCO) 5-325 MG per tablet 1 tablet 1 tablet Oral Q6H PRN Flip Campos, RECRUITING TEAM LEAD-TELEPHONE ASSEMBLER 1 tablet at 01/30/22 09 ketorolac (TORADOL) injection 30 mg 30 mg Intravenous Q8H PRN Av Bertrand MD 30 mg at 01/29/222036 labetalol (NORMODYNE) injection 20 mg 20 mg Intravenous Q4H PRN Flip Campos, RECRUITING TEAM LEAD-TELEPHONE ASSEMBLER lactulose (CHRONULAC) oral solution 20 g 20 g Oral Q4H PRN Flip Tao, RECRUITING TEAM LEAD-TELEPHONE ASSEMBLER losartan (COZAAR) tablet 50 mg 50 mg Oral Daily Flip Kentrell Tao, RECRUITING TEAM LEAD-TELEPHONE ASSEMBLER 50 mg at 01/30/22 0935 magnesium sulfate 2 g/50 mL in sterile water premix IVPB 2 g 50 mL (total volume) 2 g Intravenous Daily Flip Campos, RECRUITING TEAM LEAD-ORTIZ melatonin tablet 3 mg 3 mg Oral QHS PRN Flip Tao, RECRUITING TEAM LEAD-TELEPHONE ASSEMBLER metoprolol (LOPRESSOR) tablet 25 mg 25 mg Oral BID Flip Campos, RECRUITING TEAM LEAD-TELEPHONE ASSEMBLER 25 mg at 01/30/22 0935 naloxone (NARCAN) injection 0.04 mg 0.04 mg Intravenous PRN Flip Tao, RECRUITING TEAM LEAD-ORTIZ nitroGLYCERIN (NITRO-BID) 2 % ointment 0.5 inch 0.5 inch Topical TID Isreal Brush PA-C 0.5 inch at 01/30/22 0936 ondansetron 4mg/2ml (ZOFRAN) injection 4 mg 4 mg Intravenous Q4H PRN Av Bertrand MD 4 mg at 01/28/22 0834 pantoprazole (PROTONIX) tablet DR 40 mg 40 mg Oral Daily Flip Tao, RECRUITING TEAM LEAD- TELEPHONE ASSEMBLER 40 mg at 935 potassium chloride (K-DUR) tablet ER 40 mEq 40 mEq Oral Daily Flip Campos, RECRUITING TEAM LEAD-TELEPHONE ASSEMBLER Or potassium chloride 40 mEq in 0.9% sodium chloride 500 ml IVPB 40 mEq Intravenous Daily Flip Campos, RECRUITING TEAM LEAD-ORTIZ potassium phosphates 30 mmol in sodium chloride 0.9%, with overfill 535 mL (total volume) IVPB 30 mmol Intravenous PRN Flip Campos, RECRUITING TEAM LEAD-TELEPHONE ASSEMBLER sodium chloride 0.9% IV solution Intravenous Continuous Michaela Barragan PA-C 75 mL/hr at 01/30/22 0938 Restarted at 01/30/22 0938 tizanidine (ZANAFLEX) tablet 2 mg 2 mg Oral Q8H PRN Flip Campos, RECRUITING TEAM LEAD-ORTIZ topiramate (TOPAMAX) tablet 50 mg 50 mg Oral QHS Av Bertrand MD 50 mg at 01/29/222037 traZODone (DESYREL) tablet 300 mg 300 mg Oral QHS Av Bertrand MD 300 mg at 01/29/222037 zolpidem (AMBIEN) tablet 5 mg 5 mg Oral QHS Av Bertrand MD 5 mg at 01/29/222037 zolpidem (AMBIEN) tablet 5 mg 5 mg Oral QHS PRN Flip Campos, RECRUITING TEAM LEAD-TELEPHONE ASSEMBLER Allergies Allergen Reactions Fentanyl Itching Codeine Latex [...] Oral, resp. rate 18,height 1.651 m (5' 5), weight 131.1 kg (289 lb 1.6 oz), [...] satisfaction. Calvin Alexander MD 01/30/2022 11:06 AM [facility] Work Phone: 1(421) 403-373905-12-2022 Consult note* Calvin Alexander MD - 01/30/2022 [...] mg 1 mg Oral Daily Flip Campos, RECRUITING TEAM LEAD-TELEPHONE ASSEMBLER 1 mg at 01/30/22 0935 alum/mag hydrox.-simethicone oral suspension 30 mL 30 mL Oral Q6H PRN Flip Campos, RECRUITING TEAM LEAD-TELEPHONE ASSEMBLER cholecalciferol (VITAMIN D3) tablet 1,000 Units 1,000 Units Oral Daily Flip Campos, RECRUITING TEAM LEAD-TELEPHONE ASSEMBLER 1,000 Units at 01/30/22 09 diphenhydrAMINE (BENADRYL) injection 25 mg 25 mg Intravenous Q6H PRN Flip Campos, RECRUITING TEAM LEAD-TELEPHONE ASSEMBLER docusate (COLACE) capsule 200 mg 200 mg Oral QHS Flip Kentrell Campos, RECRUITING TEAM LEAD-TELEPHONE ASSEMBLER 200 mg at 01/29/222037 DULoxetine (CYMBALTA) capsule DR 60 mg 60 mg Oral Daily Flip Campos, RECRUITING TEAM LEAD-TELEPHONE ASSEMBLER 60 mg at 01/30/22 09 [Held by provider] Enoxaparin Sodium (LOVENOX) injection 40 mg 40 mg Subcutaneous Daily Flip Campos, RECRUITING TEAM LEAD-TELEPHONE ASSEMBLER 40 mg at 01/28/222037 hydrALAZINE (APRESOLINE) tablet 25 mg 25 mg Oral TID Flip Campos, RECRUITING TEAM LEAD-TELEPHONE ASSEMBLER 25 mg at 01/30/22 09 hydroCODone-acetaminophen (NORCO) 5-325 MG per tablet 1 tablet 1 tablet Oral Q6H PRN Flip Campos, RECRUITING TEAM LEAD-TELEPHONE ASSEMBLER 1 tablet at 01/30/22934 ketorolac (TORADOL) injection 30 mg 30 mg Intravenous Q8H PRN Av Bertrand MD 30 mg at 01/29/222036 labetalol (NORMODYNE) injection 20 mg 20 mg Intravenous Q4H PRN Flip Campos, RECRUITING TEAM LEAD-TELEPHONE ASSEMBLER lactulose (CHRONULAC) oral solution 20 g 20 g Oral Q4H PRN Flip Campos, RECRUITING TEAM LEAD-TELEPHONE ASSEMBLER losartan (COZAAR) tablet 50 mg 50 mg Oral Daily Flip Campos, RECRUITING TEAM LEAD-TELEPHONE ASSEMBLER 50 mg at 01/30/22934 magnesium sulfate 2 g/50 mL in sterile water premix IVPB 2 g 50 mL (total volume) 2 g Intravenous Daily Flip Campos, RECRUITING TEAM LEAD-ORTIZ melatonin tablet 3 mg 3 mg Oral QHS PRN Flip Campos, RECRUITING TEAM LEAD-TELEPHONE ASSEMBLER metoprolol (LOPRESSOR) tablet 25 mg 25 mg Oral BID Flip Campos, RECRUITING TEAM LEAD-TELEPHONE ASSEMBLER 25 mg at 01/30/22934 naloxone (NARCAN) injection 0.04 mg 0.04 mg Intravenous PRN Flip Campos, RECRUITING TEAM LEAD-TELEPHONE ASSEMBLER nitroGLYCERIN (NITRO-BID) 2 % ointment 0.5 inch 0.5 inch Topical TID Isreal Brush PA-C 0.5 inch at 01/30/22935 ondansetron 4mg/2ml (ZOFRAN) injection 4 mg 4 mg Intravenous Q4H PRN Av Bertrand MD 4 mg at 01/28/22 0834 pantoprazole (PROTONIX) tablet DR 40 mg 40 mg Oral Daily Flip Campos, RECRUITING TEAM LEAD- TELEPHONE ASSEMBLER 40 mg at potassium chloride (K-DUR) tablet ER 40 mEq 40 mEq Oral Daily HEATHER Delgado Or potassium chloride 40 mEq in 0.9% sodium chloride 500 ml IVPB 40 mEq Intravenous Daily HEATHER Delgado potassium phosphates 30 mmol in sodium chloride 0.9%, with overfill 535 mL (total volume) IVPB 30 mmol Intravenous PRN HEATHER Delgado sodium chloride 0.9% IV solution Intravenous Continuous Michaela Barragan PA-C 75 mL/hr at 01/30/2238 Restarted at 01/30/22937 tizanidine (ZANAFLEX) tablet 2 mg 2 mg Oral Q8H PRN HEATHER Delgado topiramate (TOPAMAX) tablet 50 mg 50 mg Oral QHS Av Bertrand MD 50 mg at 01/29/222037 traZODone (DESYREL) tablet 300 mg 300 mg Oral QHS Av Bertrand MD 300 mg at 01/29/222037 zolpidem (AMBIEN) tablet 5 mg 5 mg Oral QHS Av Bertrand MD 5 mg at 01/29/222037 zolpidem (AMBIEN) tablet 5 mg 5 mg Oral QHS PRN HEATHER Delgado Allergies Allergen Reactions Fentanyl Itching Codeine Latex [...] Oral, resp. rate 18,height 1.651 m (5' 5), weight 131.1 kg (289 lb 1.6 oz), [...] MD 01/30/2022 11:06 AM documented in this encounterReg[facility]-12-2022 Note* Nursing Notes - Kerrie Pacheco RN - 01/30/2022 4:17 AM EDT Patient assessment unchanged from previous assessment. Call light and personal items within reach. Patient denies any further needs at this time. [facility]05-12-2022 Note* Nursing Notes - Kerrie Pacheco RN - 01/30/2022 12:14 AM EDT Patient assessment unchanged from previous assessment. Call light and personal items within reach. Patient denies any further needs at this time. [facility]05-11-2022 Note* Nursing Notes - Vaishnavi Ybarra RN - 01/29/2022 6:39 PM EDT Chest pain, 02/28, patient states it is intermittent, and worsens with movement. States pain is sharp and heavy. . EKG ordered. Isreal HAMMER aware . Dr Alexander was notified by night clerk earlier this am. T [facility]05-11-2022 Note* Plan of Care - Vaishnavi Ybarra [...] outcomes by discharge/transition of care. Outcome: [facility]* Nursing Notes - An Mendoza RN - 01/29/2022 2:00 AM EDT Pt sleeping soundly, oxygen saturation at 83-87 on room air. Oxygen applied at 2 L/NC with saturation improving to 92%. [facility]* Nursing Notes - Vaishnavi Ybarra RN - 01/29/2022 12:00 PM EDT Assessment completed. Patient states chest pain is less and she is able to rest. Call light within reach. [facility]* Nursing Notes - Vaishnavi Ybarra [...] sleep. Isreal HAMMER aware and orders received. T [facility]05-11-2022 Note* Nursing Notes - An Mnedoza RN - 01/29/2022 3:42 AM EDT Assessment unchanged, resting quietly. O2 Sats in the 90's with oxygen on at 2 L/ NS. Side rails upx 2, call light in reach. [facility]05-11-2022 Note* Nursing Notes - An Mendoza RN - 01/29/2022 12:15 AM EDT Transferred from second floor to [facility]. Denies complaints [facility] Note* Nursing Notes - Melvin Dodd RN - 01/28/2022 4:56 PM EDT No changes from prior assessment [facility] History and physical note* Flip Campos, AWLIDA- TELEPHONE ASSEMBLER - 01/28/2022 3:11 PM EDT [facility] History and Physical Examination 01/28/22 3:11 PM Chief Complaint: Chief Complaint Patient presents with Chest Pain Chest pain, weakness, tachycardia, shaky, and high blood pressure since yesterday History of Present Illness: Patient is a 61 y.o. female presents to [facility] for evaluation of not feeling well. Symptomsstarted [...] 10/24/2020 Added automatically from request for surgery [id number] S/P bariatric surgery 10/24/2020 Added automatically from request for surgery [id number] S/P hernia repair 07/16/2016 Class 3 severe [...] prophylaxis with protonix and lovenox Flip Campos APRN-TELEPHONE ASSEMBLER Completing history and physical for Dr. Bertrand. 3:11 PM Please note Portions of this note utilized Hippflow dictation software, please excuse any typographical or grammatical errors Associated attestation - Av Bertrand MD - 01/28/2022 8:49 PM EDT Patient seen and examined. All testing reviewed. Discussed with TELEPHONE ASSEMBLER and agree with A/P. CP. ED eval with elevated BP. Troponin negative. EKG normal. ECHO ordered. UA abnl. On ATB's. Objective: Blood pressure 111/58, pulse 65, temperature 98 F (36.7 C), temperature source Temporal, resp. rate18, height 1.651 m (5' 5), weight 126.1 kg (278 lb), SpO2 98 [...] Use Authorization (EUA) for the qualitative detection [id number]-ZpD-5 nucleic acid. TROPONIN I, HIGH SENSITIVITY Result [...] YELLOW YELLOW APPEARANCE, URINE CLEAR CLEAR Specific [place], Urine 1.025 1.010 - 1.025 PH URINE [...] and mood normal. Av Bertrand MD 01/28/2022 [facility]05-10-2022 History and physical note* Flip Campos, AWILDA- TELEPHONE ASSEMBLER - 01/28/2022 3:11 PM EDT [facility] History and Physical Examination 01/28/22 3:11 PM Chief Complaint: Chief Complaint Patient presents with Chest Pain Chest pain, weakness, tachycardia, shaky, and high blood pressure since yesterday History of Present Illness: Patient is a 61 y.o. female presents to [facility] for evaluation of not feeling well. Symptomsstarted [...] 10/24/2020 Added automatically from request for surgery [id number] S/P bariatric surgery 10/24/2020 Added automatically from request for surgery [id number] S/P hernia repair 07/16/2016 Class 3 severe [...] prophylaxis with protonix and lovenox Flip Campos APRN-TELEPHONE ASSEMBLER Completing history and physical for Dr. Bertrand. 3:11 PM Please note Portions of this note utilized Hippflow dictation software, please excuse any typographical or grammatical errors Associated attestation - Av Bertrand MD - 01/28/2022 8:49 PM EDT Patient seen and examined. All testing reviewed. Discussed with TELEPHONE ASSEMBLER and agree with A/P. CP. ED eval with elevated BP. Troponin negative. EKG normal. ECHO ordered. UA abnl. On ATB's. Objective: Blood pressure 111/58, pulse 65, temperature 98 F (36.7 C), temperature source Temporal, resp. rate18, height 1.651 m (5' 5), weight 126.1 kg (278 lb), SpO2 98 [...] Use Authorization (EUA) for the qualitative detection qcKQBQ-BbI-3 nucleic acid. TROPONIN I, HIGH SENSITIVITY Result [...] YELLOW YELLOW APPEARANCE, URINE CLEAR CLEAR Specific [place], Urine 1.025 1.010 - 1.025 PH URINE [...] Av Bertrand MD 01/28/2022 [facility]* Nursing Notes - Melvin Dodd RN - 01/28/2022 12:38 PM EDT No changes from prior assessment [facility]05-10-2022 Note* Nursing Notes - Jessenia Lawson RN - 01/28/2022 4:30 AM EDT Patient assessment unchanged from previous assessment. Patient sleeping at this time, call light inreach. [facility]* Nursing Notes - Jessenia Lawson RN - 01/28/2022 2:20 AM EDT Patient SPO2 had decreased to 88% on room air. Per patient she does have sleep apnea. Patient stated she will not wear a CPAP however did accept nasal cannula. SPO2 has increased. Patient back to sleep at this time. Will continue to monitor. [facility]* Nursing Notes - Jessenia Lawson RN - 01/28/2022 12:20 AM EDT Patient assessment unchanged from previous assessment. Patient is now sleeping comfortably with no signs or indicators of pain present. Call light in reach. [facility]* Nursing Notes - Jessenia Lawson RN - 01/27/2022 11:[address] Bertrand to notify of patient headache, unrelieved by nursing intervention and PRN Tylenol. New order for Toradol PRN Q8H. Also advised of patient request to take her home bedtime medications. Per Dr Bertrand new order to give home bedtime medications. Medications and dosages reviewed and ok'd. See MAR. [facility] Emergency department Note* Jose Antonio Low RN - 01/27/2022 10:03 PM EDT Patient transported to floor on ekg monitor. Report given to Jessenia BACON [facility] Emergency department Note* Jose Antonio Low RN - 01/27/2022 10:03 PM EDT Patient transported to floor on ekg monitor. Report given to Jessenia BACON * Shelley [...] c/o headache and request for tylenol. * Michaela Barragan PA-C - 01/27/2022 4:58 PM EDT Emergency Department Report [facility] EMERGENCY DEPARTMENT Service Date:.01/27/22 PCP: Leticia [...] Laterality: N/A; Surgeon: Isael Hall MD; Location: [facility] ENDOSCOPY REPAIR HERNIA VENTRAL OPEN W/ MESH N/A 07/16/2016 Laterality: N/A; Surgeon: Jake Hurtado MD; Location: [facility] MAIN OR HEART CATHETERIZATION Apr 2015 GASTRIC [...] -- -- -- -- 1.651 m (5' 5) 126.1 kg (278 lb) Orders/Results: Orders Placed [...] Use Authorization (EUA) for the qualitative detection doZZVH-UsF-4 nucleic acid. TROPONIN I, HIGH SENSITIVITY Result [...] YELLOW YELLOW APPEARANCE, URINE CLEAR CLEAR Specific [place], Urine 1.025 1.010 - 1.025 PH URINE [...] tachycardia with ventricular rate of 123 a [place] of 170 and a QRS of 74. [...] chest pain in the ER. Discussed with mary jo and my attending who accepted patient for [...] Portions of this chart were created using Hippflow electronic dictation. Please excuse any typographical or [...] Means of arrival: Comments: [facility] Emergency department Note* Shelley Brooks RN - 01/27/2022 7:53 PM EDT Room assignment [id number] [facility]05-09-2022 Emergency department Note* Jose Antonio Low RN - 01/27/2022 7:11 PM EDT Report received from Yesy BACON [facility]05-09-2022 Emergency department Note* Sandy Pratt RN - 01/27/2022 6:02 PM EDT Pt is on continues pulse ox [facility]05-09-2022 Emergency department Note* Yesy Bruno RN - 01/27/2022 5:12 PM EDT Michaela HAMMER aware of pts c/o headache and request for tylenol. [facility]05-09-2022 Physician Emergency department Note* Michaela Barragan PA-C - 01/27/2022 4:58 PM EDT Emergency Department Report [facility] EMERGENCY DEPARTMENT Service Date:.01/27/22 PCP: Leticia [...] Laterality: N/A; Surgeon: Isael Hall MD; Location: [facility] ENDOSCOPY REPAIR HERNIA VENTRAL OPEN W/ MESH [...] -- -- -- -- 1.651 m (5' 5) 126.1 kg (278 lb) Orders/Results: Orders Placed [...] Use Authorization (EUA) for the qualitative detection xgOROK-SfK-6 nucleic acid. TROPONIN I, HIGH SENSITIVITY Result [...] YELLOW YELLOW APPEARANCE, URINE CLEAR CLEAR Specific [place], Urine 1.025 1.010 - 1.025 PH URINE [...] tachycardia with ventricular rate of 123 a [place] of 170 and a QRS of 74. [...] chest pain in the ER. Discussed with coveringphysikylee and my attending who accepted patient for [...] Portions of this chart were created using Hippflow electronic dictation. Please excuse any typographical or grammatical errors contained herein. Plan is to admit. Michaela Barragan PA-C 01/27/221919 Associated attestation - Silas Starkey MD - 01/27/2022 7:58 PM EDT Attending note: I was available for consultation regarding this patient. The patient was seen, evaluated and dispositioned by the mid-level provider independently. [facility] Work Phone: [phone]) 690-512605-09-2022 Emergency department Note* Wilma Bonilla RN - 01/27/2022 3:57 PM EDT Bed: E009 Expected date: Expected time: Means of arrival: Comments: [id number] Miscellaneous Notes* Case Communication - Irene Guerrero RN - 10/23/2021 7:49 AM EST Patient not admitted. Multuple calls and messages left for patient to return call. Spoke with patients mother who stated patient should be home. No answer at home no return call. notified via phone documented in this [id number] Miscellaneous Notes* Telephone Encounter - Lupe Jeong RN - 02/15/2021 4:55 PM EDT Patient returned call and reports that she is no longer taking the Metoprolol. [facility]* Diagnosis Localized swelling, mass, or lump of upper extremity, right Swelling of limb [facility] Diagnosis Lump of skin of upper extremity, right [facility] Diagnosis Hypokalemia Hypopotassemia Chest pain, unspecified [...] Thrombocytopenia Thrombocytopenia, unspecified [facility]* Diagnosis Hepatic cirrhosis, unspecified hepatic cirrhosis [...] Other drug allergy [facility]* Diagnosis Other microscopic hematuria- Primary Urinary frequency documented [facility] this [facility]* Diagnosis Other microscopic hematuria Urinary frequency Urinary frequency- Primary Other microscopic hematuria [facility] this [facility]* Diagnosis Urinary frequency- Primary Other microscopic hematuria [facility]* Diagnosis Sciatica of left side- Primary Sciatica Vasculitis of skin Vascular disorder of skin documented [facility] this encounter [facility]* Diagnosis Pain in left lower leg [facility]* Diagnosis Hypertensive urgency- Primary Unspecified essential [...] type headache, unspecified [facility]* Diagnosis Primary osteoarthritis of left knee- Primary [facility]* Diagnosis Migraine with aura, with intractable migraine, so stated, with status migrainosus- Primary [facility]* Diagnosis Generalized abdominal pain- Primary Abdominal pain, generalized Constipation, unspecified constipation type Anxiety Anxiety state, unspecified [facility]* Diagnosis Hepatic cirrhosis, unspecified hepatic cirrhosis [...] cirrhosis type (Multi) documented in this encounter [facility] Work Phone: Evaluation note* Diagnosis Pre-op examination- Primary KELLY (obstructive sleep apnea) Obstructive sleep apnea (adult) (pediatric) Hepatitis C virus infection without hepatic coma, unspecified chronicity Cirrhosis of liver without ascites, unspecified hepatic cirrhosis type (HCC) ASHD (arteriosclerotic heart disease) Coronary atherosclerosis of unspecified type of vessel, [place] or graft Anxiety Anxiety state, unspecified Morbid obesity with BMI of 50.0-59.9, adult (HCC) Hypertension, unspecified type Heel spur, right Current moderate episode of major depressive disorder without prior episode (HCC)- Primary Major depressive disorder, remission status unspecified, unspecified whether recurrent Acute UTI Urinary tract infection, site not specified Anxiety Anxiety state, unspecified Major depression, recurrent (HCC) Major depressive disorder, recurrent episode, unspecified Cognitive communication deficit- Primary Muscle weakness Muscle weakness (generalized) [facility]* Diagnosis Disorder involving thrombocytopenia (CMS-HCC)- Primary Mixed hyperlipidemia Current moderate episode of major depressive disorder without prior episode (Multi) Obesity, morbid (Multi) Morbid obesity KELLY (obstructive sleep apnea) Obstructive sleep apnea (adult) (pediatric) Primary insomnia Persistent disorder of initiating or maintaining sleep Vitamin D deficiency Hyperglycemia Other abnormal glucose Cirrhosis of liver without ascites, unspecified hepatic cirrhosis type (Multi) 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, psychotic disturbance, mood disturbance, or anxiety (Multi)- Primary KELLY (obstructive sleep apnea) Obstructive sleep apnea (adult) (pediatric) Moderate episode of recurrent major depressive disorder Current moderate episode of major depressive disorder without prior episode (Multi) Cirrhosis of liver without ascites, unspecified hepatic cirrhosis type (Multi) Disorder involving thrombocytopenia (CMS-HCC) Mixed hyperlipidemia Primary insomnia Persistent disorder of initiating or maintaining sleep Hyperglycemia Other abnormal glucose documented in this encounter [facility] Work Phone: Evaluation note* Diagnosis Vitelliform lesion of macula/both eyes- Primary Combined forms of age-related cataract of both eyes Other and combined forms of senile cataract Sleep apnea, unspecified type Hypercholesterolemia Pure hypercholesterolemia [facility] Pre-op examination- Primary KELLY (obstructive sleep apnea) Obstructive sleep apnea (adult) (pediatric) Hepatitis C virus infection without hepatic coma, unspecified chronicity Cirrhosis of liver without ascites, unspecified hepatic cirrhosis type (HCC) ASHD (arteriosclerotic heart disease) Coronary atherosclerosis of unspecified type of vessel, [place] or graft Anxiety Anxiety state, unspecified Morbid obesity with BMI of 50.0-59.9, adult (HCC) Hypertension, unspecified type Heel spur, right Current moderate episode of major depressive disorder without prior episode (HCC)- Primary Major depressive disorder, remission status unspecified, unspecified whether recurrent Acute UTI Urinary tract infection, site not specified Anxiety Anxiety state, unspecified Major depression, recurrent Major depressive disorder, recurrent episode, unspecified Primary osteoarthritis of both knees- Primary [facility]* Diagnosis Disorder involving thrombocytopenia- Primary Mixed hyperlipidemia Current moderate episode of major depressive disorder without prior episode (Multi) Obesity, morbid (Multi) Morbid obesity KELLY (obstructive sleep apnea) Obstructive sleep apnea (adult) (pediatric) Primary insomnia Persistent disorder of initiating or maintaining sleep Vitamin D deficiency Hyperglycemia Other abnormal glucose Cirrhosis of liver without ascites, unspecified hepatic cirrhosis type (Multi) 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, psychotic disturbance, mood disturbance, or anxiety (Multi)- Primary KELLY (obstructive sleep apnea) Obstructive sleep apnea (adult) (pediatric) Moderate episode of recurrent major depressive disorder Current moderate episode of major depressive disorder without prior episode (Multi) Cirrhosis of liver without ascites, unspecified hepatic cirrhosis type (Multi) Disorder involving thrombocytopenia Mixed hyperlipidemia Primary insomnia Persistent disorder of initiating or maintaining sleep Hyperglycemia Other abnormal glucose Current moderate episode of major depressive disorder without prior episode (Multi)- Primary Other fatigue 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, psychotic disturbance, mood disturbance, or anxiety (Multi) Class 3 severe obesity due to excess calories with serious comorbidity and body mass index (BMI) of 50.0 to 59.9 in adult KELLY (obstructive sleep apnea) Obstructive sleep apnea (adult) (pediatric) Hyperglycemia Other abnormal glucose Mixed hyperlipidemia Primary insomnia Persistent disorder of initiating or maintaining sleep ASHD (arteriosclerotic heart disease) Coronary atherosclerosis of unspecified type of vessel, [place] or graft Moderate episode of recurrent major depressive disorder Vitamin D deficiency documented in this encounter [facility] Work Phone: Hospital Discharge instructions* Attachments The following attachments cannot be sent through Care Everywhere. * Coronavirus Disease (COVID-19): Isolation ([place]) * Coronavirus Disease (COVID-19): General Info ([place]) * Drug Allergy ([place]) [facility]* Attachments The following attachments cannot be sent through Care Everywhere. * Back Pain ([place]) * Sciatica ([place]) [facility]* Attachments The following attachments cannot be sent through Care Everywhere. * Pain and Pain Control ([facility]) ([place]) * Hypertension: Emergency or Urgency ([place]) * Moving to Stay Independent ([facility]) ([place]) * atorvastatin ([place]) * carvedilol ([place]) * hydrochlorothiazide ([place]) * losartan ([place]) [facility] in [facility] encounterReg[facility] for referral (narrative)* Consultation (Routine) - Authorized Specialty Diagnoses / Procedures Referred By Marco Antonio t Referred To Contact Primary Care Procedures Follow Up In Primary Care Eduardo Murcia DO [address] [address] Phone: tel: fax: Referral ID Status Reason Start Date Expiration Date V isits Requested Visits Authorized [id number] Authorized 11/04/2024 11/04/2025 1 1 [facility] Work Phone: reason for referral (narrative)* Consultation (Routine) - Authorized Specialty Diagnoses / Procedures Referred By Marco Antonio t Referred To Contact Primary Care Procedures Follow Up In Primary Care Eduardo Murcia DO [address] [facility] [address] [place] [address] Phone: tel: fax: Referral ID Status Reason Start Date Expiration Date V isits Requested Visits Authorized [id number] Authorized 02/01/2025 02/01/2026 1 1 [facility] Work Phone: reason for visit Narrative* Tests/Procedures (Routine) - Closed Specialty Diagnoses / Procedures Referred By Marco Antonio whitt Referred To Contact Gastroenterology Diagnoses Hepatic cirrhosis, unspecified hepatic cirrhosis type, unspecified whether ascites present (HCC) Jaime Holt, AWILDA-TELEPHONE ASSEMBLER [address] [place] [address] [facility] PHE ENDOSCOPY [facility] [id number] [place] [id number] Referral ID Status Reason Start Date Expiration Date V isits Requested Visits Authorized [id number] Closed Consultation -[facility] 01/27/2024 01/26/2025 1 1 [facility] Summary Purpose Family History Relationship Condition Age at Onset Recorded Date/T yolis father Coronary artery disease Unknown Myocardial infarction Unknown History of coronary artery bypass surgery Unknown grandmother Presence of cardiac pacemaker Unknown mother Hypertension Unknown Advance Directives Documents on File Type Date Recorded Patient Gas Line Installer Expl anation Power of Viscosity Worker Date Activated Date Inactivated Comments 06/07/2023 2:52 AM 06/09/2023 4:39 PM Date Activated Date Inactivated Comments 10/19/2021 12:25 AM 10/21/2021 6:45 PM Date Activated Date Inactivated Comments 11/28/2020 5:30 PM 12/01/2020 8:33 PM Date Activated Date Inactivated Comments 11/14/2020 11:43 AM 11/14/2020 6:13 PM Date Activated Date Inactivated Comments 07/08/2019 9:52 AM 07/29/2019 8:12 AM Documents on File Type Date Recorded Patient Gas Line Installer Expl anation Advance Directives and Living Will Documents on File Type Date Recorded Patient Gas Line Installer Expl anation Advance Directives and Livin g Will 07/28/2019 9:42 AM Latest Code Status on File Code Status Date Activated Date Inactivated Comments Full Code 07/08/2019 9:52 AM Full Code 06/30/2019 4:58 PM 07/08/2019 7:01 AM Documents on File Type Date Recorded Patient Gas Line Installer Expl anation Advance Directives and Livin g Will 07/28/2019 9:42 AM Latest Code Status on File Code Status Date Activated Date Inactivated Comments Full Code 07/08/2019 9:52 AM Full Code 06/30/2019 4:58 PM 07/08/2019 7:01 AM Documents on File Type Date Recorded Patient Gas Line Installer Expl anation Advance Directives and Livin g Will 07/29/2019 8:12 AM Latest Code Status on File Code Status Date Activated Date Inactivated Comments Full Code 07/08/2019 9:52 AM 07/29/2019 8:12 AM Documents on File Type Date Recorded Patient Gas Line Installer Expl anation Advance Directives and Livin g Will 09/20/2019 11:05 AM Latest Code Status on File Code Status Date Activated Date Inactivated Comments Full Code 07/08/2019 9:52 AM 07/29/2019 8:12 AM Documents on File Type Date Recorded Patient Gas Line Installer Expl anation Advance Directives and Livin g Will 11/01/2019 1:42 PM Documents on File Type Date Recorded Patient Gas Line Installer Expl anation Advance Directives and Livin g Will 05/02/2019 1:12 PM Documents on File Type Date Recorded Patient Gas Line Installer Expl anation Advance Directives and Livin g Will 09/05/2019 8:57 AM Documents on File Type Date Recorded Patient Gas Line Installer Expl anation Advance Directives and Livin g Will 06/23/2019 3:23 PM Latest Code Status on File Code Status Date Activated Date Inactivated Comments Full Code 06/30/2019 4:58 PM Documents on File Type Date Recorded Patient Gas Line Installer Expl anation Advance Directives and Livin g Will 11/01/2020 3:10 PM Documents on File Type Date Recorded Patient Gas Line Installer Expl anation Advance Directives and Livin g Will 11/14/2020 9:08 AM Latest Code Status on File Code Status Date Activated Date Inactivated Comments Full Code 11/14/2020 11:43 AM 11/14/2020 6:13 PM Full Code 07/08/2019 9:52 AM 07/29/2019 8:12 AM Documents on File Type Date Recorded Patient Gas Line Installer Expl anation Advance Directives and Livin g Will 11/14/2020 9:08 AM Power of Viscosity Worker Documents on File Type Date Recorded Patient Gas Line Installer Expl anation Advance Directives and Livin g Will 11/14/2020 9:08 AM Power of Viscosity Worker Latest Code Status on File Code Status [...] Documents on File Type Date Recorded Patient Gas Line Installer Expl anation Advance Directives and Livin g Will 07/08/2019 7:00 AM Documents on File Type Date Recorded Patient Gas Line Installer Expl anation Advance Directives and Livin g Will 08/12/2019 8:57 AM Documents on File Type Date Recorded Patient Gas Line Installer Expl anation Power of Viscosity Worker Advance Directives and Livin g Will 11/14/2020 9:08 AM Documents on File Type Date Recorded Patient Gas Line Installer Expl anation Power of Viscosity Worker Advance Directives and Livin g Will 04/03/2021 5:01 PM Documents on File Type Date Recorded Patient Gas Line Installer Expl anation Power of Viscosity Worker Advance Directives and Livin g Will 04/03/2021 [...] Documents on File Type Date Recorded Patient Gas Line Installer Expl anation Power of Viscosity Worker Latest Code Status on File Code Status [...] Documents on File Type Date Recorded Patient Gas Line Installer Expl anation Healthcare Power of Viscosity Worker 07/25/2024 Date Activated Date Inactivated Comments 06/07/2023 2:52 AM 06/09/2023 4:39 PM Date Activated Date Inactivated Comments 10/19/2021 12:25 AM 10/21/2021 6:45 PM Date Activated Date Inactivated Comments 11/28/2020 5:30 PM 12/01/2020 8:33 PM Date Activated Date Inactivated Comments 11/14/2020 11:43 AM 11/14/2020 6:13 PM Date Activated Date Inactivated Comments 07/08/2019 9:52 AM 07/29/2019 8:12 AM Advance Directive Response Recorded Date/ Time Do you have a Healthcare Power of Viscosity Worker? Yes February 21, 2025 10:27am Advance Directive Response Recorded Date/ Time Do you have a Healthcare Power of Viscosity Worker? Yes March 22, 2025 4:01pm Do you have a Healthcare Power of Viscosity Worker? Yes February 21, 2025 10:27am History of Present Illness * Ariella Chiu [...] RN - 06/30/2019 4:[address] De Los Santos to see patient. [facility] scheduled and instructions given. * Lupe Jeong RN - 06/30/2019 3:58 PM EDT Patient states she has been having intermittent chest pain and shortness of breath. documented in this encounter* Annalee Dyson, PT - 11/26/2020 5:23 PM EST No response to attempts to schedule PT visit for possible discharge. documented in this encounter* Joanne Arzate RN - 12/01/2020 2:13 PM EST DISCHARGE PLAN PROGRESS NOTE Date: 12/01/2020 Time: 2:14 PM Patient Name: Micheline Fox Date of : 1960 Sex: Female Virtual Case Management Discharge planning Called and spoke with patient - she is current with [facility] and she wants to continue her current service and add a home health aid. She said that they know she wants one but there has not been one available. Anticipated Discharge Plan Anticipated Home Care Needs: Home health care Anticipated Facility Type: Home care * Digna Reagan DPM - 12/01/2020 8:25 AM EST Progress Inpatient Follow-up 12/01/2020 Digna Reagan DPM [facility] Patient: Micheline Fox Date of : [...] 53.78 kg/m Laboratory and Additional Data Reviewed: Reviewed:[id number]} * Eli Morataya CNP - 11/30/2020 7:07 PM EST [facility] Medicine Inpatient Follow-up 11/30/2020 Eli Morataya CNP [facility] Patient: Micheline Fox Date of : [...] PM IMAGING: Reviewed 7:07 PM * Dianelys Francis CNP - 11/30/2020 10:28 AM EST Podiatry Inpatient Progress Note 11/30/2020 Dianelys Francis CNP [facility] Patient: Micheline Fox Date of : [...] continues to c/opain in right foot. Dr. Reagan will be in over the weekend to [...] Morataya CNP - 11/29/2020 9:30 AM EST [facility] Medicine Inpatient Follow-up 11/29/2020 Eli Morataya CNP [facility] Patient: Micheline Fox Date of : [...] from last 7 days Lab Units 11/29/20 03011/28/20 1705 SODIUM mmol/L 141 142 POTASSIUM mmol/L [...] on 12/06/20 documented in this encounter* Giorgi De Los Santos MD - 06/23/2019 2:51 PM EDT [facility] [address] ([address]) [facility] [address] [facility] [id number] Subjective: Micheline Fox is a 59 y.o. 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-[phone] RUG-[phone] [facility] - [phone] Order Specific Question: Reason for Exam: Answer: [...] in about 6 weeks (around 08/04/2019). Giorgi De Los Santos MD * Anay Pedersen MA - 06/23/2019 [...] not nervous/anxious. documented in this encounter* Giorgi De Los Santos MD - 08/22/2019 2:56 PM EST [facility] [address] ([address]) [facility] [address] [facility] [id number] Subjective: Micheline Fox is a 59 y.o. female seen in the office today for Chief Complaint Patient presents with Follow-up 6 wk f/u Shortness of Breath Dictation on: 08/22/2019 2:58 PM by: GIORGI DE LOS SANTOS [[id number]] Overview of Problems Addressed: Problem Ashd (Arteriosclerotic [...] Procedure: COLONOSCOPY; Surgeon: Joe Colón MD; Location: [facility] Endo; Service: Gastroenterology EGD N/A 07/29/2019 Procedure: ESOPHAGOGASTRODUODENOSCOPY; Surgeon: Joe Colón MD; Location: [facility] Endo; Service: Gastroenterology GASTRIC BYPASS 1996 HC LEFT HEART CATH N/A 07/08/2019 Procedure: Left Heart Cath; Surgeon: Hari Acosta MD; Location: [facility]; Service: Cardiovascular HERNIA REPAIR NECK SURGERY 1999 [...] Up Ordered: No follow-ups on file. Giorgi De Los Santos MD * Anay Pedersen MA - 08/22/2019 [...] this encounter Instructions * Patient Instructions* Digna Downs, - 07/28/2019 1:15 PM EST Preoperative Medication Instructions In preparation for surgery please continue all of your current medications with the following changes: Micheline Fox Home Medication Instructions Prior to Surgery RIVERA:[id number] Printed on:07/28/19 0274 Medication Information Take last dose on Take [...] medications that contain aspirin, such as Moraima [place], Pepto- Bismol, Anacin), antiinflammatory medications such as Advil, Motrin, Ibuprofen, Naproxen, Aleve, Moraima [place], Pepto-Bismol, Anacin, Diclofenac, Voltaren, Daypro, Etodolac, Ketoprofen, Meloxicam, Piroxicam, Relafen, Nabumetone, etc. Also discontinue Vitamin C, Vitamin E, [place]-3 Fatty Acid, Fish Oil or Lovaza, as [...] Contact your Care Team: Provider: Dr. Giorgi De Los Santos MD Set Staff Fitter: Lupe Jeong RN Heart Catheterization Date and Time of your procedure_ThursdayJuly 08 at 9 AM_ Please arrive at [facility] and check in at the Outpatient Registration [...] questions or concerns please contact us at [phone]. documented in this encounter* Patient Instructions* Anay Pedersen MA - 06/23/2019 2:19 PM EDT How to Contact your Care Team: Provider: Dr. Giorgi De Los Santos MD Set Staff Fitter: Lupe Jeong RN REFILLS: When in need for refills please call your care team or the office at [phone]. Please include medication name, pharmacy name, and specify 30-day or 90-day supply. Please check with your pharmacy within 24 hours of request for your refill. You must follow up as directed to continue current refills. Thank you! documented in this encounter* Patient Instructions* Anay Pedersen MA - 08/22/2019 2:14 PM EST How to Contact your Care Team: Provider: Dr. Giorgi De Los Santos MD Set Staff Fitter: Lupe Jeong RN REFILLS: When in need for refills please call your care team or the office at [phone]. Please include medication name, pharmacy name, and specify 30-day or 90-day supply. Please check with your pharmacy within 24 hours of request for your refill. You must follow up as directed to continue current refills. Thank you! documented in this encounter Assessments Diagnosis Preop examination- Primary Unspecified pre-operative examination Personal history of colonic polyps Morbid obesity (HCC) Morbid obesity Coronary artery disease involving [place] coronary artery of [place] heart without angina pectoris Other cirrhosis of [...] Coronary atherosclerosis of unspecified type of vessel, [place] or graft Diagnosis MCGOWAN (dyspnea on exertion) Other dyspnea and respiratory abnormality ASHD (arteriosclerotic heart disease) Coronary atherosclerosis of unspecified type of vessel, [place] or graft Diagnosis Chest pain, unspecified type [place] (dyspnea on exertion) Other dyspnea and respiratory abnormality ASHD (arteriosclerotic heart disease) Coronary atherosclerosis of unspecified type of vessel, [place] or graft Reason for Referral Status Reason Specialty Diagnoses / Procedures Re ferred By Contact Referred To Contact Pending Review Radiology Diagnoses Epigastric pain Other cirrhosis of liver (HCC) Personal history of colonic polyps Gastrointestinal symptoms Hematochezia Hepatic encephalopathy (HCC) Procedures US Abdomen Limited Study US Abdomen Complete Julia Anderson MD [address] [place] [address] Status Reason Specialty Diagnoses / Procedures Referre d By Contact Referred To Contact Closed Radiology Diagnoses MCG[place]AN (dyspnea on exertion) Procedures CT Pulmonary Arteries Giorgi De Los Santos MD [address] [address] Status Reason Specialty Diagnoses / Procedures Referre d By Contact Referred To Contact Closed Radiology Diagnoses Stomach ache Procedures CT Abdomen Pelvis Without Contrast Aleida Leal MD [address] [place] [address] Status Reason Specialty Diagnoses / Procedures Referre d By Contact Referred To Contact Closed Cardiology Diagnoses [place] (dyspnea on exertion) Procedures Echocardiogram complete Giorgi De Los Santos MD [address] [address] Status Reason Specialty Diagnoses / Procedures Referre d By Contact Referred To Contact Closed Cardiology Diagnoses Bilateral pain of leg and foot Procedures Ultrasound duplex venous legs Digna Arana, KEVIN [address] [place] [address] Status Reason Specialty Diagnoses / Procedures Referred By Contact Referred To Contact Authorized Patient Preference Home Health Services Diagnoses Acute post-operative pain Nehemias Sun MD [address] [place] [address] Status Reason Specialty Diagnoses / Procedures Referred By Contact Referred To Contact Pending Review Radiology Diagnoses [place] (dyspnea on exertion) Procedures CT Angiogram Chest Giorgi De Los Santos MD [address] [address] Status Reason Specialty Diagnoses / Procedures Referred By Contact Referred To Contact Pending Review Cardiology Diagnoses [place] (dyspnea on exertion) Procedures Echocardiogram complete Giorgi De Los Santos MD [address] [address] Status Reason Specialty Diagnoses / Procedures Referre d By Contact Referred To Contact Closed Radiology Diagnoses Lump of skin of upper extremity, right Procedures US Upper Extremity Non Vascular Limited Right Leticia Sylvester MD [address] [place] [address] Specialty Diagnoses / Procedures Referred By Contac t Referred To Contact Procedures ECG Isreal Brush PA-C [address] [place] [address] Referral ID Status Reason Start Date Expiration Date V isits Requested Visits Authorized [id number] New Request 01/29/2022 02/23/2023 1 1 Specialty Diagnoses / Procedures Referred By Contac t Referred To Contact Procedures NUC MYOCARD PERF STRESS MIBI PHARM WY CHG MYOCARDIAL SPECT MULTIPLE STUDIES CHG MYOCARDIAL SPECT MULTIPLE STUDIES-T WY CARDIAC STRESS TST,INTERP/REPT ONLY WY CV STRS TST XERS&/OR RX CONT ECG W/O I&R Giorgi Adan APRN-ORTIZ [address] [place] [address] Referral ID Status Reason Start Date Expiration Date Visits Re quested Visits Authorized [id number] Closed 01/29/2022 02/23/2023 1 1 Referral ID Status Reason Start Date Expiration Date V isits Requested Visits Authorized [id number] New Request 01/29/2022 02/23/2023 1 1 Specialty Diagnoses / Procedures Referred By Contac t Referred To Contact Danyell Patel, PT [address] [place] [address] Referral ID Status Reason Start Date Expiration Date Visits Re quested Visits Authorized Specialty Diagnoses / Procedures Referred By Contac t Referred To Contact Procedures INPATIENT ADMISSION NOTIFICATION Av Bertrand MD [address] [place] [address] Referral ID Status Reason Start Date Expiration Date V isits Requested Visits Authorized [id number] New Request 01/27/2022 02/21/2023 1 1 Specialty Diagnoses / Procedures Referred By Contac t Referred To Contact Procedures ECG Silas Starkey MD [address] [place] [address] Referral ID Status Reason Start Date Expiration Date V isits Requested Visits Authorized [id number] Pending Review 01/27/2022 02/21/2023 1 1 Specialty Diagnoses / Procedures Referred By Contac t Referred To Contact Gastroenterology Diagnoses Hepatic cirrhosis, unspecified hepatic cirrhosis type, unspecified whether ascites present (HCC) Abdominal pain, unspecified abdominal location Abnormal finding of blood chemistry, unspecified Abnormal findings on diagnostic imaging of other parts of digestive tract Jaime Holt, AWILDA-TELEPHONE ASSEMBLER [address] [facility] [place] [place] [address] [address] [place], [place] [id number] Referral ID Status Reason Start Date Expiration Date V isits Requested Visits Authorized [id number] Authorized 04/23/2022 04/23/2023 3 3 Scheduling Instructions [...] location Procedures CT ABDOMEN/PELVIS W/ CONTRAST Jaime Holt APRN-CNP [address] [place] [address] [place] [address] [facility] CT SCAN Referral ID Status Reason Start Date Expiration Date V isits Requested Visits Authorized [id number] Authorized 04/23/2022 04/23/2023 1 1 Specialty Diagnoses / Procedures Referred By Contac t Referred To Contact Radiology Diagnoses Early satiety Procedures NM GASTRIC EMPTYING STUDY Eusebia Jones APRN-CNP [address] [place] [address] [place] [address] [facility] NUCLEAR MEDICINE [address] [place] [address] Referral ID Status Reason Start Date Expiration Date V isits Requested Visits Authorized [id number] Pending Review 08/19/2022 08/19/2023 1 1 Specialty Diagnoses / Procedures Referred By Contac t Referred To Contact General Surgery Diagnoses Grade I hemorrhoids Eusebia Jones APRN-CNP [address] [place] [address] [place] [address] [facility] SURGERY GENERAL [address] [place] [address] Referral ID Status Reason Start Date Expiration Date V isits Requested Visits Authorized [id number] Authorized 08/19/2022 08/19/2023 3 3 Scheduling Instructions Please call the Surgery Clinic at to schedule an appointment if one was not made for you today. Question Answer Reason for evaluation: Pilonidal/Hemorrhoid Specialty Diagnoses / Procedures Referred By Contac t Referred To Contact Diagnoses Other microscopic hematuria Urinary frequency Procedures CT UROGRAM ABDOMEN/PELVIS W/ CT POST PROCESSING Av Delgado MD [address] [address] Referral ID Status Reason Start Date Expiration Date V isits Requested Visits Authorized [id number] Auth Not Needed 10/01/2022 10/26/2023 1 1 Referral ID Status Reason Start Date Expiration Date Visits Re quested Visits Authorized [id number] Closed 10/01/2022 10/26/2023 1 1 Specialty Diagnoses / Procedures Referred By Contac t Referred To Contact Social Work Diagnoses Hypertensive urgency Giorgi Adan, RECRUITING TEAM LEAD-TELEPHONE ASSEMBLER [address] [place] [address] Referral ID Status Reason Start Date Expiration Date V isits Requested Visits Authorized [id number] New Request 05/26/2023 06/19/2024 1 1 Specialty Diagnoses / Procedures Referred By Contac t Referred To Contact [facility] REV LOC [address] [place] [address] Specialty Diagnoses / Procedures Referred By Contac t Referred To Contact Family Medicine Diagnoses Hypertensive urgency Giorgi Adan, RECRUITING TEAM LEAD-TELEPHONE ASSEMBLER [address] [place] [address] Leticia Sylvester MD [address] [place] [address] Referral ID Status Reason Start Date Expiration Date V isits Requested Visits Authorized [id number] New Request 05/24/2023 06/17/2024 1 1 Specialty Diagnoses / Procedures Referred By Contac t Referred To Contact Procedures US RENAL ARTERIES Giorgi Adan, RECRUITING TEAM LEAD-TELEPHONE ASSEMBLER [address] [place] [address] Referral ID Status Reason Start Date Expiration Date Visits Re quested Visits Authorized [id number] Closed 05/22/2023 06/15/2024 1 1 Specialty Diagnoses / Procedures Referred By Contac t Referred To Contact Procedures INPATIENT ADMISSION NOTIFICATION Calvin Pimentel, [address] [place] [address] Referral ID Status Reason Start Date Expiration Date V isits Requested Visits Authorized [id number] New Request 05/22/2023 06/15/2024 1 1 Specialty Diagnoses / Procedures Referred By Contac t Referred To Contact Procedures ECG Jose Eduardo Dumont MD [address] [place] [address] Referral ID Status Reason Start Date Expiration Date V isits Requested Visits Authorized [id number] New Request 05/22/2023 06/15/2024 1 1 Specialty Diagnoses / Procedures Referred By Contac t Referred To Contact Neurology Diagnoses Migraine with aura, with intractable migraine, so stated, with status migrainosus Leticia Sylvester MD [address] [place] [address] Dioni Keene MD [address] [facility] [address] [address] Referral ID Status Reason Start Date Expiration Date V isits Requested Visits Authorized [id number] Authorized 11/23/2023 11/22/2024 1 1 Specialty Diagnoses / Procedures Referred By Contac t Referred To Contact Internal Medicine Diagnoses Hepatic cirrhosis, unspecified hepatic cirrhosis type, unspecified whether ascites present (HCC) Assistance needed with transportation Anxiety about health Insomnia, unspecified type Fatty liver Jaime Holt APRN-CNP [address] [place] [address] [place] [address] Weight Management [address] [place] [address] Referral ID Status Reason Start Date Expiration Date V isits Requested Visits Authorized [id number] Authorized 01/27/2024 01/26/2025 10 10 Scheduling Instructions Please call [phone] to schedule your appointment in Weight Management if an appointment was not yet made for you. Question Answer Is patient interested in weight loss surgery? No Specialty Diagnoses / Procedures Referred By Contac t Referred To Contact Jaime Holt APRN-CNP [address] [place] [address] [place] [address] Question Answer Referral Reason: TRANSPORTATION/DME Location Patient [place] [facility] Specialty Diagnoses / Procedures Referred By Marco Antonio whitt Referred To Contact Psychology Diagnoses Hepatic cirrhosis, unspecified hepatic cirrhosis type, unspecified whether ascites present (HCC) Assistance needed with transportation Anxiety about health Insomnia, unspecified type Fatty liver Jaime Holt APRN-CNP [address] [place] [address] [place] [address] [facility] PSY ADULT GENERAL [address] [place] [address] Referral ID Status Reason Start Date Expiration Date V isits Requested Visits Authorized [id number] Authorized 01/27/2024 01/26/2025 3 3 Question Answer Reason for referral Cognitive behavioral therapy for insomnia (CBT-I) Specialty Diagnoses / Procedures Referred By Marco Antonio whitt Referred To Contact Radiology Diagnoses Hepatic cirrhosis, unspecified hepatic cirrhosis type, unspecified whether ascites present (HCC) Procedures US LIVER/GALL BLADDER/PANCREAS Jaime Holt APRN-CNP [address] [place] [address] [place] [address] [facility] ULTRASOUND [address] [place] [address] Referral ID Status Reason Start Date Expiration Date V isits Requested Visits Authorized [id number] Authorized 01/27/2024 01/26/2025 1 1 Specialty Diagnoses / Procedures Referred By Marco Antonio whitt Referred To Contact Gastroenterology Diagnoses Hepatic cirrhosis, unspecified hepatic cirrhosis type, unspecified whether ascites present (HCC) Jiame Holt APRN-CNP [address] [place] [address] [place] [address] [facility] PHE ENDOSCOPY [facility] [id number] [place] [address] Referral ID Status Reason Start Date Expiration Date Visits Requested Visits Authorized [id number] [facility] 01/27/2024 01/26/2025 1 1 Scheduling Instructions Appointment Information: [facility] [place] [address] [place] [address]. Please plan to arrive at least 60 [...] team will receive the patient. Please call [phone] Thursday-Thursday, 7:00am-6:00pm if you have any pre- procedural questions. If you are calling AFTER HOURS, please call [phone] [facility] digital solution architect. If you need to cancel this appointment prior to the scheduled date, please call the Endoscopy call center at [phone] at least 48 hours before the appointment/procedure [...] Expiration Date Visits Re quested Visits Authorized [id number] Closed 01/27/2024 01/26/2025 1 1 Specialty Diagnoses / Procedures Referred By Marco Antonio whitt Referred To Contact Sleep Lab Diagnoses KELLY (obstructive sleep apnea) Procedures Home sleep apnea test (HSAT) Eduardo Murcia DO [address] [facility] [place] [address] Referral ID Status Reason Start Date Expiration Date V isits Requested Visits Authorized [id number] Pending Review 02/26/2024 02/25/2025 1 1 Discharge Instructions * Attachments The following attachments cannot be sent through Care Everywhere. * EGD (Upper Endoscopy): Post-op (Kittitian) * Colonoscopy: Post-op (Kittitian) * Monitored Anesthesia Care: MAC: General Info (Kittitian) * Sleep Apnea (Kittitian) documented in this encounter* Attachments The following attachments cannot be sent through Care Everywhere. * Wheezing or Bronchoconstriction (Kittitian) * Arthritis (Kittitian) * Headache: Tension (Kittitian) * Fibromyalgia (Kittitian) documented in this encounter* Discharge Instr - AVS First Page* Digna Reagan DPM - 11/14/2020 11:48 AM EST Apply cam walker boot right foot Rest, ice and elevate right foot Take percocet for pain Take aspirin 325 mg twice a day Keep dressing dry , clean and intact Pt may partially weight bear with cam boot and walker Make appt to see Dr Reagan on Thursday * Discharge Instr - Other Orders* Karin Givens RN - 11/14/2020 11:58 AM EST GENERAL POST-OPERATIVE PATIENT INSTRUCTIONS ANESTHESIA PRECAUTIONS: A responsible adult must stay with you for at least 24 hours after surgery. You may feel light headed,, dizzy, or nauseated during this time. Do not operate a vehicle (car, bike, motorcycle, fire apparatus engineer) machinery or power tools. Do not make [...] to call your physician or the hospital broke beater operator if you have any questions, and they will be glad to assist you. documented in this encounter Hospital Course * Eli Morataya, TELEPHONE ASSEMBLER - 12/01/2020 9:43 AM EST HOSPITALIST DISCHARGE SUMMARY Patient: Micheline Fox Account: [id number] Admitted: 11/28/2020 Discharge Date/Time: 12/01/2020 Clinical Summary [...] source Oral, resp. rate 16, height 5' 5, weight (!) 146.6 kg (323 lb 3.1 [...] Physician(s) Family: Leticia Sylvester MD, , Address: [address] [place] [address] / [place] [address] Follow Up: [facility] Address: [address] [place] [address] Servicing Counties: [phone] Leticia Sylvester MD [address] [place] [address] Follow up Digna Reagan DPM [address] [place] [id number] Follow up 1 week Patient instructions, including activity, were given to the patient/family at discharge. Please seethe After Visit Summary in the medical record for details. Time spent on discharge: > 30 minutes Completed by: Eli Morataya on 12/01/20, 9:43 AM Associated attestation - Nehemias Sun MD - 12/01/2020 2:57 PM EST Patient seen, evaluated and managed by TELEPHONE ASSEMBLER independently. I was not involved in the care of this patient, but was readily available for consultation if needed by TELEPHONE ASSEMBLER. documented in this encounter Chief Complaint and Reason for Visit Chief Complaint Admit Date WEAKNESS AND FREQUENT FALLS September 1:30pm EORDER October 18, 2024 2 :55pm Hemorrhoids December 08, 2024 3:3 0pm EPIGASTRIC PAIN December 15, 2024 11: 04am Reason for Visit Admit Date Dementia October 18, 2024 1 :30pm Bloating December 08, 2024 3:3 0pm Constipation December 08, 2024 3:3 0pm Epigastric pain December 08, 2024 3:3 0pm Hemorrhoids December 08, 2024 3:3 0pm Chief Complaint Admit Date WEAKNESS AND FREQUENT FALLS September 1:30pm EORDER October 18, 2024 2 :55pm Hemorrhoids December 08, 2024 3:3 0pm EPIGASTRIC PAIN December 15, 2024 11: 04am INT LAB ORDERS January 05, 2025 1:4 0pm Chief Complaint Admit Date WEAKNESS AND FREQUENT FALLS September 1:30pm EORDER October 18, 2024 2 :55pm Hemorrhoids December 08, 2024 3:3 0pm EPIGASTRIC PAIN December 15, 2024 11: 04am INT LAB ORDERS January 05, 2025 1:4 0pm E-ORDER January 17, 2025 3:1 1pm SITZ DAY January 19, 2025 2:46pm Chief Complaint Admit Date Hemorrhoids December 08, 2024 3:3 0pm EPIGASTRIC PAIN December 15, 2024 11: 04am INT LAB ORDERS January 05, 2025 1:4 0pm E-ORDER January 17, 2025 3:1 1pm SITZ DAY January 19, 2025 2:46pm Reason for Visit Admit Date Bloating December 08, 2024 3:3 0pm Constipation December 08, 2024 3:3 0pm Epigastric pain December 08, 2024 3:3 0pm Hemorrhoids December 08, 2024 3:3 0pm Bloating March 10, 2025 11:5 3am Constipation March 10, 2025 11:5 3am Epigastric pain March 10, 2025 11:5 3am Chief Complaint Admit Date Hemorrhoids December 08, 2024 3:3 0pm EPIGASTRIC PAIN December 15, 2024 11: 04am INT LAB ORDERS January 05, 2025 1:4 0pm E-ORDER January 17, 2025 3:1 1pm SITZ DAY January 19, 2025 2:46pm Test Result March 22, 2025 2:00p m Chief Complaint Admit Date Hemorrhoids December 08, 2024 3:3 0pm EPIGASTRIC PAIN December 15, 2024 11: 04am INT LAB ORDERS January 05, 2025 1:4 0pm E-ORDER January 17, 2025 3:1 1pm SITZ DAY January 19, 2025 2:46pm Test Result March 22, 2025 2:00p m MCGOWAN WITH CHEST PRESSURE March 22, 2025 8 :16pm Reason for Visit Admit Date Bloating December 08, 2024 3:3 0pm Constipation December 08, 2024 3:3 0pm Epigastric pain December 08, 2024 3:3 0pm Hemorrhoids December 08, 2024 3:3 0pm Bloating March 10, 2025 11:5 3am Constipation March 10, 2025 11:5 3am Epigastric pain March 10, 2025 11:5 3am Chest pressure March 22, 2025 2:00p m MCGOWAN (dyspnea on exertion) March 22, 2025 2:00pm Weight gain March 22, 2025 2:00p m Bloating March 22, 2025 8:16p m Blood in stool March 22, 2025 8:16p m Body mass index (BMI) greater than 50 Ju 2024 8:16pm Chest pain, exertional March 22, 2025 8: 16pm MCG[place]AN (dyspnea on exertion) March 22, 2025 8:16pm Epigastric pain March 22, 2025 8:16p m Noncompliance with CPAP treatment March 222024 8:16pm Obesity hypoventilation syndrome March 8:16pm Weight gain March 22, 2025 8:16p m Additional Source Comments INFORMATION SOURCE (unrecogn ized section and content) DATE CREATED AUTHOR 08/30/2018 [facility] DATE CREATED AUTHOR AUTHOR'S ORGANIZ ATION 08/08/2020 [facility] DATE CREATED AUTHOR AUTHOR'S ORGANIZ ATION 11/12/2020 [facility] DATE CREATED AUTHOR AUTHOR'S ORGANIZ ATION 10/21/2021 [facility] DATE CREATED AUTHOR AUTHOR'S ORGANIZ ATION 05/21/2023 [facility] DATE CREATED AUTHOR AUTHOR'S ORGANIZ ATION 12/31/2023 [facility] DATE CREATED AUTHOR AUTHOR'S ORGANIZ ATION 03/06/2024 [facility] DATE CREATED AUTHOR AUTHOR'S ORGANIZ ATION 07/02/2024 [facility] DATE CREATED AUTHOR AUTHOR'S ORGANIZ ATION 08/11/2024 [facility] DATE CREATED AUTHOR AUTHOR'S ORGANIZ ATION 10/21/2024 [facility] DATE CREATED AUTHOR AUTHOR'S ORGANIZ ATION 12/14/[address] [facility] DATE CREATED AUTHOR AUTHOR'S ORGANIZ ATION 12/17/2024 [facility] DATE CREATED AUTHOR AUTHOR'S ORGANIZ ATION 12/31/2024 [facility] DATE CREATED AUTHOR AUTHOR'S ORGANIZ ATION 02/08/2025 [facility] DATE CREATED AUTHOR AUTHOR'S ORGANIZ ATION 02/16/2025 [facility] DATE CREATED AUTHOR AUTHOR'S ORGANIZ ATION 03/21/2025 [facility] Reason for Visit (unrecogniz ed section and [...] Study US Abdomen Complete Julia Anderson MD [address] [place] [address] Status Reason Specialty Diagnoses / Procedures Referre d By Contact Referred To Contact Closed Radiology Diagnoses MCGOWAN (dyspnea on exertion) Procedures CT Pulmonary Arteries Giorgi De Los Santos MD [address] [address] Reason Comments Shortness of Breath Status Reason Specialty Diagnoses / Procedures Referre d By Contact Referred To Contact Closed Radiology Diagnoses Stomach ache Procedures CT Abdomen Pelvis Without Contrast Aleida Leal MD [address] [place] [address] Status Reason Specialty Diagnoses / Procedures Referre d By Contact Referred To Contact Closed Cardiology Diagnoses MCGOWAN (dyspnea on exertion) Procedures Echocardiogram complete Giorgi De Los Santos MD [address] [address] Reason Comments Nurse Consult Patient here for [...] foot Procedures Ultrasound duplex venous legs Digna Arana, DPRoberta [address] [place] [address] Reason Comments Foot Pain Status Reason Specialty Diagnoses / Procedures Referre d By Contact Referred To Contact Diagnoses Foot pain Intractable pain Acute post-operative pain Status Reason Specialty Diagnoses / Procedures Referre d By Contact Referred To Contact Diagnoses CP/SOB Procedures HC LEFT HEART CATH Left Heart Cath Hari Acosta MD [address] [place] [address] Reason Comments Initial Visit (Intake) 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 Chest Pain Shortness of Breath Reason Comments Follow-up 6 wk f/u Shortness of Breath Reason Onset Date Comments Medication Refill Medication Refill 02/15/2021 Reason Comments Chest Pain Chest pain, weakness , tachycardia, shaky, and high blood pressure since yesterday Specialty Diagnoses / Procedures Referred By Contac t Referred To Contact Diagnoses Hypokalemia Chest pain, unspecified type Referral ID Status Reason Start Date Expiration Date Visits Re quested Visits Authorized [id number] 1 1 Reason Comments CONSULT, NEW GI Reason Comments GI FOLLOW UP Reason Comments COVID-19 Screening Specialty Diagnoses / Procedures Referred By Contac t Referred To Contact Gastroenterology Diagnoses Rectal bleeding [...] AND COLONOSCOPY, GENERAL ANESTHESIA Jennifer Khoury MD [address] [place] [id number] [facility] [address] [place] [phone] Phone: [phone] Referral ID Status Reason Start Date Expiration Date Visits Re quested Visits Authorized [id number] 3 3 Reason Comments GI FOLLOW UP Reason Comments Cough Chest Congestion Nausea Diarrhea Started Thursday morni ng Reason Comments New Patient Blood in Urine Specialty Diagnoses / Procedures Referred By Contac t Referred To Contact Urology Diagnoses Hematuria, unspecified type Melanie Mooney MD [address] [place] [address] Av Delgado MD [address] [place] [phone] Referral ID Status Reason Start Date Expiration Date V isits Requested Visits Authorized [id number] New Request 09/10/2022 10/05/2023 1 1 Specialty Diagnoses / Procedures Referred By Contac t Referred To Contact Diagnoses Other microscopic hematuria Urinary frequency Procedures CT UROGRAM ABDOMEN/PELVIS W/ CT POST PROCESSING Av Delgado MD [address] [place] [id number] Referral ID Status Reason Start Date Expiration Date Visits Re quested Visits Authorized [id number] Closed 10/01/2022 10/26/2023 1 1 Reason Comments Cystoscopy Specialty Diagnoses / Procedures Referred By Toshaac t Referred To Contact [facility] Referral ID Status Reason Start Date Expiration Date Visits Re quested Visits Authorized [id number] 1 1 Reason Comments Leg Pain Pt reports left leg pain and rash on bilateral arms for past couple days. No known injury. No recent travels. Reason Comments Evaluation Specialty Diagnoses / Procedures Referred By Contac t Referred To Contact Vascular Surgery Diagnoses Pain in left lower leg Leticia Sylvester MD [address] [place] [address] [facility] [address] [facility] [place] [address] Referral ID Status Reason Start Date Expiration Date V isits Requested Visits Authorized [id number] Pending Review 04/01/2023 03/31/2024 1 1 Reason Comments Hypertension States was at the st ore and checked bp and it was increased. C/o of chest pain and shortness of breath since yesterday. Specialty Diagnoses / Procedures Referred By Contac t Referred To Contact Diagnoses Anxiety Hypertensive urgency Acute intractable headache, unspecified headache type Calvin Pimentel, DO [address] [place] [address] [facility] Referral ID Status Reason Start Date Expiration Date Visits Re quested Visits Authorized [id number] 1 1 Reason Comments Pain Specialty Diagnoses / Procedures Referred By Contac t Referred To Contact Diagnoses Left knee pain, unspecified chronicity Procedures XR BONE LENGTH STUDY Carol Ann Bonilla MD [address] [place] [address] Referral ID Status Reason Start Date Expiration Date V isits Requested Visits Authorized [id number] New Request 08/07/2023 08/31/2024 1 1 Reason [...] present (HCC) Procedures US LIVER/GALL BLADDER/PANCREAS Jaime Holt APRN-TELEPHONE ASSEMBLER [address] [facility] [place] [address] [facility] [address] [address] Referral ID Status Reason Start Date Expiration Date Visits Re quested Visits Authorized [id number] Closed 01/27/2024 01/26/2025 1 1 Reason Comments Establish Care Reason Onset Date Comments Discuss results test/procedures 07/25/2024 Reason Onset Date Comments Discuss results test/procedures 07/25/2024 Left Message To Call Back 07/25/2024 Reason Onset Date Comments Speak to Provider 07/29/2024 Reason Comments Follow-up [facility] DISCHARGE Reason Comments Blurred Vision Both Eyes Difficulty Reading Both Eyes Left eye wo rse than the right eye Retinal Evaluation Reason Comments Pain Poor historian on me dication list, unable to provide list. Pain Reason Comments Follow-up 3 [facility] Specialty Diagnoses / Procedures Referred By Marco Antonio t Referred To Contact Primary Care Procedures Follow Up In Primary Care Eduardo Murcia, [address] [place] [address] Phone: tel: fax: Referral ID Status Reason Start Date Expiration Date V isits Requested Visits Authorized [id number] Authorized 11/04/2024 11/04/2025 1 1 Digna Downs, DO - 07/28/2019 1:21 PM Joe Booker MD - 07/29/2019 8:37 AM Digna Yi, DO - 07/28/2019 1:21 PM EST H&P Notes (unrecognized sect ion and content) Micheline Fox 1960 Encounter Diagnoses Name Primary? Preop examination Yes Personal history of colonic polyps Morbid obesity (HCC) Coronary artery disease involving [place] coronary artery of [place] heart without angina pectoris Other cirrhosis of [...] per 2016 ACCP Guidelines and Recommendations (or 2010 AAOS Guidelines for orthopedic procedures, or 2008 [...] Artery Disease or in accordance with their bioinformatics support specialist's recommendations. 7. The patient may use appropriate amounts of acetaminophen pre-operatively for pain management if not allergic and if no history of liver disease. 8. The patient was advised to follow the current [facility] guidelines regarding fluid intake after midnight [...] ARB's on the morning of surgery per [facility] Anesthesia recommendations. 1. The patient is [...] Fox Home Medication Instructions Prior to Surgery RIVERA:[id number] Printed on:07/28/19 1321 Medication Information Take last [...] SURGERY 1999 CARDIAC CATHETERIZATION GASTRIC BYPASS 1996 HC LEFT HEART CATH N/A 07/08/2019 Procedure: Left Heart Cath; Surgeon: Hari Acosta MD; Location: [facility]; Service: Cardiovascular HERNIA REPAIR NECK SURGERY 1999 [...] file Gets together: Not on file Attends restorationist service: Not on file Active member of [...] Micheline Fox Admit Date: [id number] MR #: [id number] : 1960 The H&P has been reviewed and the patient has been examined. I concur with the findings of the H&P. There are no significant changes. It is appropriate to proceed with the planned procedure. Joe Colón MD 07/29/2019 8:37 AM Micheline Fox 1960 Encounter Diagnoses Name Primary? Preop examination Yes Personal history of colonic polyps Morbid obesity (HCC) Coronary artery disease involving [place] coronary artery of [place] heart without angina pectoris Other cirrhosis of [...] per 2016 ACCP Guidelines and Recommendations (or 2010 AAOS Guidelines for orthopedic procedures, or 2008 [...] Artery Disease or in accordance with their bioinformatics support specialist's recommendations. 7. The patient may use appropriate amounts of acetaminophen pre-operatively for pain management if not allergic and if no history of liver disease. 8. The patient was advised to follow the current [facility] guidelines regarding fluid intake after midnight [...] ARB's on the morning of surgery per [facility] Anesthesia recommendations. 1. The patient is [...] Fox Home Medication Instructions Prior to Surgery RIVERA:[id number] Printed on:07/28/19 1321 Medication Information Take last [...] Heart Cath; Surgeon: Hari Acosta MD; Location: [facility]; Service: Cardiovascular HERNIA REPAIR NECK SURGERY 1999 [...] file Gets together: Not on file Attends restorationist service: Not on file Active member of [...] Micheline Fox Admit Date: [id number] MR #: [id number] : 1960 The H&P has been reviewed and the patient has been examined. I concur with the findings of the H&P. There are no significant changes. It is appropriate to proceed with the planned procedure. Digna Reagan DPM 11/14/2020 10:36 AM documented in this encounter [facility] Medicine Inpatient H&P 11/28/2020 Lizbet Pack MD [facility] Patient: Micheline Fox Date of : 1960 (60 y.o.) PCP: Leticia Sylvester MD Assessment Micheline Fox 60 y.o. female with history of Hypertension, hepatitis C and cirrhosis who presented to the emergency department with right foot pain, patient underwent surgery [address] Reagan for heel spur and plantar fasciitis, since then patient has ongoing heel pain at the site of surgery in addition to redness, Patient was evaluated by Dr. Reagan and she was started on doxycycline and [...] underwent surgery [address] Reagan for heel spur and plantar fasciitis, since then patient has ongoing heel pain at the site of surgery in addition to redness, Patient was evaluated by Dr. Reagan and she was started on doxycycline and [...] Procedure: COLONOSCOPY; Surgeon: Joe Colón MD; Location: [facility]; Service: Gastroenterology EGD N/A 07/29/2019 Procedure: ESOPHAGOGASTRODUODENOSCOPY; Surgeon: Joe Colón MD; Location: [facility] Endo; Service: Gastroenterology GASTRIC BYPASS 1996 LEFT HEART CATH N/A 07/08/2019 Procedure: Left Heart Cath; Surgeon: Hari Acosta MD; Location: [facility]; Service: Cardiovascular HEEL SPUR RESECTION Right 11/14/2020 Procedure: EXCISION HEEL SPUR RIGHT FOOT C-ARM; Surgeon: Digna Reagan DPM; Location: Main OR; Service: Podiatry HERNIA [...] Micheline Fox Admit Date: [id number] MR #: [id number] : 1960 The H&P has been reviewed and the patient has been examined. I concur with the findings of the H&P. There are no significant changes. It is appropriate to proceed with the planned procedure. Hari Acosta MD 07/08/2019 9:03 AM [facility] [address] ([address]) [facility] [address] [facility] [phone] Subjective: Micheline Fox is a 59 y.o. 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-[phone] OSE-[phone] [facility] - [phone] Order Specific Question: Reason for Exam: Answer: [...] in about 6 weeks (around 08/04/2019). Giorgi De Los Santos MD documented in this encounter Pre-Procedure Instructions - Fabi Billingsley MA - 07/28/2019 12:34 PM ESTBrief Op Note - Digna Reagan DPM - 11/14/2020 11:36 AM ESTQuick Note - Giuliana Winslow RN - 11/12/2020 1:29 PM EST Miscellaneous Notes (unrecog nized section and content) Patient Instructions for [facility]: Prior to surgery: Please contact your Surgeon's office for the scheduled time of your surgery. Report to the Surgery Family Waiting Area in the green area of [facility] 1 1/2-2 hours prior to your surgery. You may use the Digital Production Artist parking available at the Main Entrance/Blue Area of [facility] - a voucher for parking will [...] any makeup or lotions. Remove all nail hebrew for surgeries involving extremities. Please remember to bring both your insurance card and a photo ID with you on the day of surgery. After your surgery: If you are having outpatient surgery - you must have a licensed city driver to take you home. The expectation is that this city driver will remain at the hospital for the duration of your procedure. You are advised to have a family member with you for at least 24 hours after being under Anesthesia. documented in this encounter Brief Post Operative Note Patient Name: Micheline Fox : 1960 (60 y.o.) Date of Service: 11/14/2020 CSN: [id number] Procedure(s): EXCISION HEEL SPUR RIGHT FOOT C-ARM Pre-Operative Diagnoses: * 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 Post-Operative Diagnoses:same Surgeon(s) and Role: * Digna Reagan DPM - Primary Anesthesiologist: Aris Morales MD CUSTOMER ADVISOR: Judie Angeles CRNA Wood Heel Fitter Machine: Cindy Infante RN Smart Energy Specialist: Dalton Ceja, TECHNOLOGIST Scrub Person: Alesha Garcia [...] 11/14/20 Surgical Wound Foot Right (Active) Digna Reagan DPM 11/14/2020 11:36 AM Preop diagnosis: Plantar [...] in detail: Patient was brought into the [facility] operating room placed on the table in [...] plantar fascial ligament. Next I took a Warren elevator and identified the superior and inferior [...] determine Thank you, ANDREWS MoserN, RN Clinical Adjunct English Instructor After business hours you may contact Karuna Castro at [phone] (Weekdays until 10 PM and weekends 8 [...] cannot drive herself home. She needs a city driver to take her home d/t the medications that she had gotten. documented in this encounter This RN bedside to assist Ramakrishna AYANNA to take pt to the floor. Pt [...] SHE WOULD WAIT UNTIL SHE GOES UPSTAIRS. [facility] ED Attending Note: NAME: Micheline Fox 60 y.o. CSN: [id number] PCP: Leticia Sylvester MD History: Chief Complaint: Foot Pain HPI: The history was obtained from the patient. Micheline is a 60 y.o. female who presents with a chief complaint of Foot Pain. Patient complains of pain and increased redness to the wound of her right foot. She tells me she recently had surgery with Dr. Digna Reagan for a heel spur and plantar fasciitis. [...] Procedure: COLONOSCOPY; Surgeon: Joe Colón MD; Location: [facility] Endo; Service: Gastroenterology EGD N/A 07/29/2019 Procedure: ESOPHAGOGASTRODUODENOSCOPY; Surgeon: Joe Colón MD; Location: [facility] Endo; Service: Gastroenterology GASTRIC BYPASS 1996 LEFT HEART CATH N/A 07/08/2019 Procedure: Left Heart Cath; Surgeon: Hari Acosta MD; Location: [facility]; Service: Cardiovascular HEEL SPUR RESECTION Right 11/14/2020 Procedure: EXCISION HEEL SPUR RIGHT FOOT C-ARM; Surgeon: Digna Reagan DPM; Location: Main OR; Service: Podiatry HERNIA [...] file Gets together: Not on file Attends restorationist service: Not on file Active member of [...] Procedure Abnormality Status --------- ------ CBC Auto Differential[[id number]] In process Please view results for these tests on the individual orders. LACTIC ACID, PLASMA CBC WITH AUTO DIFFERENTIAL XR Foot Right 3+ Views (Standard) (Results Pending) Patient struggling with outpatient therapy will admit for IV antibiotic and pain control and Dr. Reagan will see in the morning. Clinical Impression: 1. Acute post-operative pain 2. Intractable pain Disposition: Patient is being hospitalize to med/surg (regular floor) YOANA LYN MD [facility] Emergency Department (Please note that portions of this note have been completed with a voice recognition software. Efforts were made to correct any errors, but occasionally words are mis-transcribed.) Adam Lyn MD 11/28/20 1719 PATIENT HAD FOOT SURGERY TWO WEEKS AGO WHERE SHE HAD A BONE SPUR REMOVED AND PLANTAR FASCITIS RELEASE. SHE STATES SHE HAS DEVELOPED AN INFECTION IN HER FOOT WHICH DR REAGAN IS AWARE OF. PATIENT ARRIVES TO ER FOR UNCONTROLLED PAIN. SHE REPORTS DR REAGAN REFUSING TO GIVE HER MORE PAIN MEDICATION WHEN SHE CALLED IN. Bed: 34 Expected date: Expected time: Means of arrival: Comments: OMID documented in this encounter Visit Details Home Health Visit - Care Dick n (unrecognized section and content) Visit Type -RESPIRATORY CARE PROGRAM DIRECTOR Missed Visit Discipline -Home Health Aide Problems [...] Aide Goal:Hygiene/Safety Scheduled Visit Details Visit Type -SEAM TAPER MACHINE HH Missed Vi sit Discipline -Long Term Problems Problem Start Date Status Goals Interventions Assess and Instruct Home Visit Disciplines: Long Term 11/16/2020 Active 1 goal linked to scheduled/documented intervention 4 goal interventions scheduled/documented in this visit Medication Management Disciplines: Long Term 11/16/2020 Active 1 goal linked to scheduled/documented intervention 1 goal intervention scheduled/documented in this visit Pain Management Disciplines: Long Term 11/16/2020 Active 1 goal linked to scheduled/documented intervention 1 goal intervention scheduled/documented in this visit Wound Care and/or Skin Problems Disciplines: Long Term 11/16/2020 Active - 1 problem intervention scheduled/documented [...] Visit Goal:Medications Scheduled Visit Details Visit Type -RESPIRATORY CARE PROGRAM DIRECTOR Home Visi t Discipline -Home Health Aide Interventions Intervention Associated Problem/Goal Status Variance Visit Notes Apply Lotion Problem:HH Aide Goal:Hygiene/Safety Completed Dressing Problem:HH Aide Goal:Hygiene/Safety Completed Hair Care Problem:HH Aide Goal:Hygiene/Safety Completed Shampoo Hair Problem:HH Aide Goal:Hygiene/Safety Completed Sponge Bath Problem:HH Aide [...] Order for FWW is asked of Dr. Reagan, but unkown if he will approve. Visit Details Visit Type -[facility] t of Care Discipline -Long Term Problems Problem Start Date Status Goals Interventions Assess and Instruct Home Visit Disciplines: Long Term 11/16/2020 Active 1 goal linked to scheduled/documented intervention 4 goal interventions scheduled/documented in this visit Genitourinary Disciplines: Long Term 11/16/2020 Active 1 goal linked to scheduled/documented intervention 1 goal intervention scheduled/documented in this visit Medication Management Disciplines: Long Term 11/16/2020 Active 1 goal linked to scheduled/documented intervention 1 goal intervention scheduled/documented in this visit Pain Management Disciplines: Long Term 11/16/2020 Active 1 goal linked to scheduled/documented intervention 1 goal intervention scheduled/documented in this visit Wound Care and/or Skin Problems Disciplines: Long Term 11/16/2020 Active - 1 problem intervention scheduled/documented [...] certainly not maintained. Visit Details Visit Type -CASING IN LINE SETTER Routine Visi t Discipline -Physical Therapy Problems [...] Instruct Home Visit Goal:Home Care Plan Completed CASING IN LINE SETTER reviews fall prevention techniques with patient to [...] Problem:Assess and Instruct Home Visit Goal:Pain Completed CASING IN LINE SETTER reviews pain management techniques with patient to [...] causes extra discomfort and difficulty with breathing. CASING IN LINE SETTER suggests utilizing 4ww this date to improve ease and safety with daily mobility in home, patient verbalizes understanding. Visit Details Visit Type -CASING IN LINE SETTER Missed Visit Discipline -Physical Therapy Visit Details [...] Details Visit Type -SN Missed Visit Discipline -Long Term Interventions Intervention Associated Problem/Goal Status Variance Visit [...] Interventions Assess and Instruct Home Visit Disciplines: Long Term 11/16/2020 Active 1 goal linked to scheduled/documented intervention 4 goal interventions scheduled/documented in this visit Medication Management Disciplines: Long Term 11/16/2020 Active 1 goal linked to scheduled/documented intervention 1 goal intervention scheduled/documented in this visit Pain Management Disciplines: Long Term 11/16/2020 Active 1 goal linked to scheduled/documented intervention 1 goal intervention scheduled/documented in this visit Wound Care and/or Skin Problems Disciplines: Long Term 11/16/2020 Active - 1 problem intervention scheduled/documented [...] HH OASIS Resu mption of Care Discipline -Long Term Problems Problem Start Date Status Goals Interventions Assess and Instruct Home Visit Disciplines: Long Term 11/16/2020 Active 1 goal linked to scheduled/documented intervention 4 goal interventions scheduled/documented in this visit Genitourinary Disciplines: Long Term 11/16/2020 Active 1 goal linked to scheduled/documented intervention 1 goal intervention scheduled/documented in this visit Medication Management Disciplines: Long Term 11/16/2020 Active 1 goal linked to scheduled/documented intervention 1 goal intervention scheduled/documented in this visit Pain Management Disciplines: Long Term 11/16/2020 Active 1 goal linked to scheduled/documented intervention 1 goal intervention scheduled/documented in this visit Wound Care and/or Skin Problems Disciplines: Long Term 11/16/2020 Active - 2 problem interventions scheduled/documented [...] cp assess, med review, call to [facility] for orders. micheline will see dr reagan thursday at 1320. ot present during visit. order for pt obtained. following questions asked to dr [facility] staff: PT for transfers toe touch weight bearing if necessary omeprazole vidhi cook, dr [facility] of[facility] 120pm thursday front wheeled walker? Narratives [...] cp assess, med review, drsg chg to r heel. micheline states she cannot out boot on [...] applying the boot, or get her food. sack sewer machine already involved Narratives complete sponge bath done. [...] aware Actions Phone call to patient to [facility] in due to emotional health concerns. Left VM requesting return call. Actions Pt has FWB granted to her, c an get foot wet and can wear a sandal in the house only. No signs of infection. She is ready to get into the shower with COMPOSITION ROLL MAKER AND CUTTER's help this week. Actions Missed Visit. Multiple [...] indicates the patient was receiving services from [facility] prior to admission. Notify home health care completed. Notified Sully Goyal RN, and Tiff Combs RN with [facility] of the patient's admission. Per charting, [...] health care Current Agency Name: [facility] Anticipated Home Care Needs: Home health care Anticipated Facility Type: Home care Anticipated Discharge Plan Anticipated Home Care Needs: Home health care Anticipated Facility Type: Home care documented in this encounter Care Teams (unrecognized sec tion and content) Asp Net Programmer Relationship Specialty Start Date End Date Leticia Sylvester MD [address] [place] [address] PCP - General Internal Medicine 05/30/16 Asp Net Programmer Relationship Specialty Start Date End Date Leticia Sylvester MD PCP - General Internal Medicine 09/16/13 Asp Net Programmer Relationship Specialty Start Date End Date Lupillo Ocampo MD [address] [place] [address] [place] [address] Physician Gastroenterology 06/26/20 Jaiem Holt APRN-TELEPHONE ASSEMBLER [address] [place] [address] [place] [address] MAPPING EDITOR Gastroenterology 11/23/20 Asp Net Programmer Relationship Specialty Start Date [place] [address] PCP - General 04/23/22 Lupillo Ocampo MD [address] [place] [address] [place] [address] Physician Gastroenterology 06/26/20 Jaime Holt APRN-TELEPHONE ASSEMBLER [address] [place] [address] [place] [address] MAPPING EDITOR Gastroenterology 11/23/20 Asp Net Programmer Relationship Specialty Start Date End Date Leticia Sylvester [address] [place] [address] PCP - General 04/23/22 Lupillo Ocampo MD [address] [place] [address] [place] [address] Physician Gastroenterology 06/26/20 Jaime Holt APRN-TELEPHONE ASSEMBLER [address] [place] [address] [place] [address] MAPPING EDITOR Gastroenterology 11/23/20 Asp Net Programmer Relationship Specialty Start Date [place] [address] PCP - General 04/23/22 Lupillo Ocampo MD [address] [place] [address] [place] [address] Physician Gastroenterology 06/26/20 Jaime Holt APRN-TELEPHONE ASSEMBLER [address] [place] [address] [place] [address] MAPPING EDITOR Gastroenterology 11/23/20 Asp Net Programmer Relationship Specialty Start Date End Date Win, [address] [address] PCP - General 04/23/22 Lupillo Ocampo MD [address] [place] [address] [place] [address] Physician Gastroenterology 06/26/20 Jaime Holt, RECRUITING TEAM LEAD-TELEPHONE ASSEMBLER [address] [place] [address] [place] [address] MAPPING EDITOR Gastroenterology 11/23/20 Asp Net Programmer Relationship Specialty Start Date End Date Win, [address] [address] PCP - General 04/23/22 Lupillo Ocampo MD [address] [place] [address] [place] [address] Physician Gastroenterology 06/26/20 Jaime Holt, RECRUITING TEAM LEAD-TELEPHONE ASSEMBLER [address] [place] [address] [place] [address] MAPPING EDITOR Gastroenterology 11/23/20 Asp Net Programmer Relationship Specialty Start Date End Date Higinio, [address] [address] PCP - General 04/23/22 Lupillo Ocampo MD [address] [place] [address] [place] [address] Physician Gastroenterology 06/26/20 Jaime Holt, RECRUITING TEAM LEAD-TELEPHONE ASSEMBLER [address] [facility] [place] [place] [address] MAPPING EDITOR Gastroenterology 11/23/20 Asp Net Programmer Relationship Specialty Start Date End Date Win, [address] [address] PCP - General 04/23/22 Lupillo Ocampo MD [address] [place] [address] [place] [address] Physician Gastroenterology 06/26/20 Jaime Holt APRN-TELEPHONE ASSEMBLER [address] [place] [address] [place] [address] MAPPING EDITOR Gastroenterology 11/23/20 Eusebia Jones APRN-TELEPHONE ASSEMBLER [address] [place] [address] [place] [address] MAPPING EDITOR Gastroenterology 04/26/22 Asp Net Programmer Relationship Specialty Start Date [facility] Date [facility] [address] [place] [address] PCP - General 04/23/22 Lupillo Ocampo MD [address] [place] [address] [place] [address] Physician Gastroenterology 06/26/20 Jaime Holt APRN-TELEPHONE ASSEMBLER [address] [place] [address] [place] [address] MAPPING EDITOR Gastroenterology 11/23/20 Eusebia Jones, RECRUITING TEAM LEAD-TELEPHONE ASSEMBLER [address] [place] [address] [place] [address] MAPPING EDITOR Gastroenterology 04/26/22 Asp Net Programmer Relationship Specialty Start Date End Date Leticia Sylvester [address] [place] [address] PCP - General 04/23/22 Lupillo Ocampo MD [address] [facility] [place] [place] [address] Physician Gastroenterology 06/26/20 Jaime Holt APRN-TELEPHONE ASSEMBLER [address] [place] [address] [place] [address] MAPPING EDITOR Gastroenterology 11/23/20 Eusebia Jones APRN-TELEPHONE ASSEMBLER [address] [facility] [place] [address] MAPPING EDITOR Gastroenterology 04/26/22 Asp Net Programmer Relationship Specialty Start Date [place] [address] PCP - General 04/23/22 Lupillo Ocampo MD [address] [facility] [place] [address] Physician Gastroenterology 06/26/20 Jaime Holt APRN-TELEPHONE ASSEMBLER [address] [facility] [place] [address] MAPPING EDITOR Gastroenterology 11/23/20 Eusebia Jones APRN-TELEPHONE ASSEMBLER [address] [facility] [place] [address] MAPPING EDITOR Gastroenterology 04/26/22 Asp Net Programmer Relationship Specialty Start Date End Date Leticia Sylvester [address] [place] [address] PCP - General 04/23/22 Lupillo Ocampo MD [address] [facility] [place] [address] Physician Gastroenterology 06/26/20 Jaime Holt APRN-TELEPHONE ASSEMBLER [address] [facility] [place] [address] MAPPING EDITOR Gastroenterology 11/23/20 Eusebia Jones APRN-TELEPHONE ASSEMBLER [address] [facility] [place] [address] MAPPING EDITOR Gastroenterology 04/26/22 Asp Net Programmer Relationship Specialty Start Date End Date Leticia Sylvester [address] [place] [address] PCP - General 04/23/22 Lupillo Ocampo MD [address] [facility] [place] [place] [address] Physician Gastroenterology 06/26/20 Jaime Holt, RECRUITING TEAM LEAD-TELEPHONE ASSEMBLER [address] [place] [address] [place] [address] MAPPING EDITOR Gastroenterology 11/23/20 Eusebia Jones, RECRUITING TEAM LEAD-TELEPHONE ASSEMBLER [address] [facility] [place] [place] [address] MAPPING EDITOR Gastroenterology 04/26/22 Asp Net Programmer Relationship Specialty Start Date End Date Leticia Sylvester [address] [place] [address] PCP - General 04/23/22 Lupillo Ocampo MD [address] [facility] [place] [address] Physician Gastroenterology 06/26/20 Jaime Holt, RECRUITING TEAM LEAD-TELEPHONE ASSEMBLER [address] [place] [address] [place] [address] MAPPING EDITOR Gastroenterology 11/23/20 Eusebia Jones, RECRUITING TEAM LEAD-TELEPHONE ASSEMBLER [address] [facility] [place] [place] [address] MAPPING EDITOR Gastroenterology 04/26/22 Asp Net Programmer Relationship Specialty Start Date End Date Leticia Sylvester MD PCP - General Internal Medicine 09/16/13 Asp Net Programmer Relationship Specialty Start Date End Date Leticia Sylvester [address] [place] [address] PCP - General 04/23/22 Lupillo Ocampo MD [address] [place] [address] [place] [address] Physician Gastroenterology 06/26/20 Giller, Jaime, RECRUITING TEAM LEAD-TELEPHONE ASSEMBLER [address] [facility] [place] [place] [address] MAPPING EDITOR Gastroenterology 11/23/20 Eusebia Jones, RECRUITING TEAM LEAD-TELEPHONE ASSEMBLER [address] [facility] [place] [place] [address] MAPPING EDITOR Gastroenterology 04/26/22 Asp Net Programmer Relationship Specialty Start Date End Date Leticia Sylvester MD PCP - General Internal Medicine 09/16/13 Asp Net Programmer Relationship Specialty Start Date End Date Leticia Sylvester MD PCP - General Internal Medicine 09/16/13 Asp Net Programmer Relationship Specialty Start Date End Date Leticia Sylvester MD PCP - General Internal Medicine 09/16/13 Asp Net Programmer Relationship Specialty Start Date End Date Leticia Sylvester MD PCP - General Internal Medicine 09/16/13 Asp Net Programmer Relationship Specialty Start Date End Date Leticia Sylvester MD [address] [facility] [place] [address] PCP - General Internal Medicine 05/30/16 Ishaan Raines MD [address] [facility] [place] [address] Surgeon Vascular Surgery 04/17/23 Asp Net Programmer Relationship Specialty Start Date End Date Leticia Sylvester MD PCP - General Internal Medicine 09/16/13 Asp Net Programmer Relationship Specialty Start Date End Date Leticia Sylvester MD [address] [place] [address] PCP - General Internal Medicine 05/30/16 Ishaan Raines MD [address] [facility] [place] [address] Surgeon Vascular Surgery 04/17/23 Asp Net Programmer Relationship Specialty Start Date End Date Leticia Sylvester [address] [place] [address] PCP - General 04/23/22 Lupillo Ocampo MD [address] [facility] [place] [address] Physician Gastroenterology 06/26/20 Jaime Holt RECRUITING TEAM LEAD-TELEPHONE ASSEMBLER [address] [facility] [place] [address] MAPPING EDITOR Gastroenterology 11/23/20 Eusebia Jones, RECRUITING TEAM LEAD-TELEPHONE ASSEMBLER [address] [facility] [place] [address] MAPPING EDITOR Gastroenterology 04/26/22 Asp Net Programmer Relationship Specialty Start Date End Date Leticia Sylvester MD [address] [address] PCP - General Internal Medicine 06/02/23 Asp Net Programmer Relationship Specialty Start Date End Date Leticia Sylvester MD [address] [facility] [place] [address] PCP - General Internal Medicine 05/30/16 Ishaan Raines MD [address] [facility] [address] Surgeon Vascular Surgery 04/17/23 Asp Net Programmer Relationship Specialty Start Date End Date Leticia Sylvester MD [address] [place] [address] PCP - General Internal Medicine 06/02/23 Asp Net Programmer Relationship Specialty Start Date End Date Leticia Sylvester [address] [place] [address] PCP - General 04/23/22 Lupillo Ocampo MD [address] [facility] [place] [address] Physician Gastroenterology 06/26/20 Jaime Holt APRN-TELEPHONE ASSEMBLER [address] [facility] [place] [address] MAPPING EDITOR Gastroenterology 11/23/20 Eusebia Jones APRN-TELEPHONE ASSEMBLER [address] [facility] [place] [address] MAPPING EDITOR Gastroenterology 04/26/22 Asp Net Programmer Relationship Specialty Start Date End Date Leticia Sylvester [address] [place] [address] PCP - General 04/23/22 Lupillo Ocampo MD [address] [facility] [place] [address] Physician Gastroenterology 06/26/20 Jaime Holt APRN-TELEPHONE ASSEMBLER [address] [facility] [place] [address] MAPPING EDITOR Gastroenterology 11/23/20 Eusebia Jones APRN-TELEPHONE ASSEMBLER [address] [facility] [address] MAPPING EDITOR Gastroenterology 04/26/22 Asp Net Programmer Relationship Specialty Start Date End Date Leticia Sylvester [address] [place] [address] PCP - General 04/23/22 Lupillo Ocampo MD [address] [facility] [place] [address] Physician Gastroenterology 06/26/20 Jaime Holt APRN-TELEPHONE ASSEMBLER [address] [facility] [place] [address] MAPPING EDITOR Gastroenterology 11/23/20 Eusebia Jones APRN-TELEPHONE ASSEMBLER [address] [facility] [place] [address] MAPPING EDITOR Gastroenterology 04/26/22 Asp Net Programmer Relationship Specialty Start Date End Date Leticia Sylvester [address] [place] [address] PCP - General 04/23/22 Lupillo Ocampo MD [address] [facility] [place] [address] Physician Gastroenterology 06/26/20 Jaime Holt APRN-TELEPHONE ASSEMBLER [address] [facility] [place] [address] MAPPING EDITOR Gastroenterology 11/23/20 Eusebia Jones APRN-TELEPHONE ASSEMBLER [address] [facility] [place] [address] MAPPING EDITOR Gastroenterology 04/26/22 Asp Net Programmer Relationship Specialty Start Date End Date Leticia Sylvester [address] [place] [address] PCP - General 04/23/22 Lupillo Ocampo MD [address] [place] [address] [place] [address] Physician Gastroenterology 06/26/20 Jaime Holt APRN-TELEPHONE ASSEMBLER [address] [place] [address] [place] [address] MAPPING EDITOR Gastroenterology 11/23/20 Eusebia Jones APRN-TELEPHONE ASSEMBLER [address] [place] [address] [place] [address] MAPPING EDITOR Gastroenterology 04/26/22 Asp Net Programmer Relationship Specialty Start Date End Date Leticia Sylvester [address] [place], [place] [id number] PCP - General 04/23/22 Lupillo Ocampo MD [address] [place] [address] [place] [address] Physician Gastroenterology 06/26/20 Jaime Holt, RECRUITING TEAM LEAD-TELEPHONE ASSEMBLER [address] [place] [address] [place] [address] MAPPING EDITOR Gastroenterology 11/23/20 Eusebia Jones RECRUITING TEAM LEAD-TELEPHONE ASSEMBLER [address] [facility] [place] [address] MAPPING EDITOR Gastroenterology 04/26/22 Asp Net Programmer Relationship Specialty Start Date End Date Higinio Leticia [address] [place] [address] PCP - General 04/23/22 Lupillo Ocampo MD [address] [facility] [place] [address] Physician Gastroenterology 06/26/20 Jaime Holt APRN-TELEPHONE ASSEMBLER [address] [facility] [place] [address] MAPPING EDITOR Gastroenterology 11/23/20 Eusebia Jones APRN-TELEPHONE ASSEMBLER [address] [facility] [place] [address] MAPPING EDITOR Gastroenterology 04/26/22 Asp Net Programmer Relationship Specialty Start Date End Date Eduardo Murcia DO [address] [place] [address] Medical Office [place] [id number] PCP - General Internal Medicine 02/26/24 Asp Net Programmer Relationship Specialty Start Date End Date Leticia Sylvester [address] [place] [address] PCP - General 04/23/22 Lupillo Ocampo MD [address] [facility] [place] [address] Physician Gastroenterology 06/26/20 Jaime Holt APRN-TELEPHONE ASSEMBLER [address] [facility] [place] [address] MAPPING EDITOR Gastroenterology 11/23/20 Eusebia Valderrama APRN-TELEPHONE ASSEMBLER [address] [facility] [place] [address] MAPPING EDITOR Gastroenterology 04/26/22 Asp Net Programmer Relationship Specialty Start Date End Date Itzel Sylvestersukumar [address] [place] [address] PCP - General 04/23/22 Lupillo Ocampo MD [address] [facility] [place] [address] Physician Gastroenterology 06/26/20 Jaime Holt APRN-TELEPHONE ASSEMBLER [address] [facility] [place] [address] MAPPING EDITOR Gastroenterology 11/23/20 Eusebia Valderrama APRN-TELEPHONE ASSEMBLER [address] [facility] [place] [address] MAPPING EDITOR Gastroenterology 04/26/22 Asp Net Programmer Relationship Specialty Start Date End Date Leticia Sylvester MD [address] [place], [place] [id number] PCP - General Internal Medicine 05/30/16 Ishaan Raines MD [address] [place] [address] Surgeon Vascular Surgery 04/17/23 Asp Net Programmer Relationship Specialty Start Date End Date Leticia Sylvester [address] [place] [address] PCP - General 04/23/22 Lupillo Ocampo MD [address] [facility] [place] [address] Physician Gastroenterology 06/26/20 Jaime Holt APRN-TELEPHONE ASSEMBLER [address] [facility] [place] [address] MAPPING EDITOR Gastroenterology 11/23/20 Eusebia Valderrama APRN-CNP [address] [facility] [place] [address] MAPPING EDITOR Gastroenterology 04/26/22 Asp Net Programmer Relationship Specialty Start Date End Date Leticia Sylvester [address] [place] [address] PCP - General 04/23/22 Lupillo Ocampo MD [address] [place] [address] [place] [address] Physician Gastroenterology 06/26/20 Jiame Holt APRN-CNP [address] [place] [address] [place] [address] MAPPING EDITOR Gastroenterology 11/23/20 Eusebia Valderrama APRN-CNP [address] [place] [address] [place] [address] MAPPING EDITOR Gastroenterology 04/26/22 Asp Net Programmer Relationship Specialty Start Date End Date Leticia Sylvester [address] [place] [address] PCP - General 04/23/22 Lupillo Ocampo MD [address] [place] [address] [place] [address] Physician Gastroenterology 06/26/20 Jaime Holt APRN-CNP [address] [facility] [place] [address] MAPPING EDITOR Gastroenterology 11/23/20 Eusebia Valderrama APRN-TELEPHONE ASSEMBLER [address] [place] [address] [place] [address] MAPPING EDITOR Gastroenterology 04/26/22 Asp Net Programmer Relationship Specialty Start Date End Date Leticia Sylvester [address] [place] [address] PCP - General 04/23/22 Lupillo Ocampo MD [address] [facility] [place] [place] [address] Physician Gastroenterology 06/26/20 Jaime Holt RECRUITING TEAM LEAD-TELEPHONE ASSEMBLER [address] [facility] [place] [place] [address] MAPPING EDITOR Gastroenterology 11/23/20 Eusebia Valderrama RECRUITING TEAM LEAD-TELEPHONE ASSEMBLER [address] [facility] [place] [place] [address] MAPPING EDITOR Gastroenterology 04/26/22 Asp Net Programmer Relationship Specialty Start Date End Date Eduardo Murcia DO [address] [place] [address] PCP - General Internal Medicine 10/28/24 Asp Net Programmer Relationship Specialty Start Date End Date Eduardo Murcia DO [address] [place] [address] PCP - General Internal Medicine 12/13/24 Team Status: Active Member Role Status Dates Dr. Eduardo Murcia MD Primary Care Provider Active Team Status: Inactive Member Role Status Dates Dr. Leticia Sylvester MD Primary Care Provider Active S tart: October 18, 2024 End: October 18, 2024 Dr. Leticia Sylvester MD Referring Provider Active Star t: October 18, 2024 End: October 18, 2024 Dr. Silas Pena MD Attending Provider Active Start: October 18, 2024 End: October 18, 2024 Team Status: Inactive Member Role Status Dates Dr. Leticia Sylvester MD Primary Care Provider Active S tart: October 18, 2024 End: October 18, 2024 CAROLYN Gomes Attending Provider Active S tart: October 18, 2024 End: October 18, 2024 CAROLYN Gomes Referring Provider Active S tart: October 18, 2024 End: October 18, 2024 Team Status: Inactive Member Role Status Dates Dr. Leticia Sylvester MD Primary Care Provider Active S tart: December 08, 2024 End: December 08, 2024 Dr. Leticia Sylvester MD Referring Provider Active Star t: December 08, 2024 End: December 08, 2024 CAROLYN Adkins Attending Provider Active Start: December 08, 2024 End: December 08, 2024 Team Status: Inactive Member Role Status Dates CAROLYN Adkins Attending Provider Active Start: December 15, 2024 End: December 15, 2024 CAROLYN Adkins Referring Provider Active Start: December 15, 2024 End: December 15, 2024 Dr. Eduardo Murcia MD Primary Care Provider Active Start: December 15, 2024 End: December 15, 2024 Asp Net Programmer Relationship Specialty Start Date End Date Leticia Sylvester MD [address] [facility] [place] [address] PCP - General Internal Medicine 05/30/16 Ishaan Raines MD [address] [facility] [place] [address] Surgeon Vascular Surgery 04/17/23 Team Status: Inactive Member Role Status Dates Dr. Eduardo Murcia MD Primary Care Provider Active Start: January 05, 2025 End: January 05, 2025 CAROLYN Adkins Attending Provider Active Start: January 05, 2025 End: January 05, 2025 CAROLYN Adkins Referring Provider Active Start: January 05, 2025 End: January 05, 2025 Team Status: Active Member Role Status Dates Dr. Eduardo Murcia MD Primary Care Provider Active Start: January 17, 2025 Vaishnavi Whitt NP-C Attending Provider Active Start: January 17, 2025 CAROLYN Adkins Referring Provider Active Start: January 17, 2025 Team Status: Inactive Member Role Status Dates Dr. Eduardo Murcia MD Primary Care Provider Active Start: January 19, 2025 End: January 19, 2025 Vaishnavi Whitt NP-C Attending Provider Active Start: January 19, 2025 End: January 19, 2025 Vaishnavi Whitt NP-Stacia Referring Provider Active Start: January 19, 2025 End: January 19, 2025 Team Status: Inactive Member Role Status Dates Dr. Eduardo Murcia MD Primary Care Provider Active Start: January 17, 2025 End: January 17, 2025 CAROLYN Adkins Attending Provider Active Start: January 17, 2025 End: January 17, 2025 Vaishnavi Whitt NP-Stacia Referring Provider Active Start: January 17, 2025 End: January 17, 2025 Asp Net Programmer Relationship Specialty Start Date End Date Eduardo Murcia DO [address] [place] [address] PCP - General Internal Medicine 10/28/24 Team Status: Inactive Member Role Status Dates Dr. Eduardo Murcia MD Primary Care Provider Active Start: March 10, 2025 End: March 10, 2025 Dr. Eduardo Murcia MD Referring Provider Active Start: March 10, 2025 End: March 10, 2025 Dr. Elier Iyer DO Attending Provider Active Start: March 10, 2025 End: March 10, 2025 Team Status: Active Member Role Status Dates Dr. Eduardo Murcia MD Primary Care Provider Active Start: March 10, 2025 Dr. Eduardo Murcia MD Referring Provider Active Start: March 10, 2025 Dr. Elier Iyre DO Attending Provider Active Start: March 10, 2025 Dr. Elier Iyer DO Other Provider Active St art: March 10, 2025 Team Status: Active Member Role/Relationship Status Dates Dr. Eduardo Murcia MD Primary Care Provider Active Team Status: Inactive Member Role/Relationship Status Dates Dr. Leticia Sylvester MD Primary Care Provider Active S tart: December 08, 2024 End: December 08, 2024 Dr. Leticia Sylvester MD Referring Provider Active Star t: December 08, 2024 End: December 08, 2024 Vaishnavi Whitt , DRILL RUNNER HELPER-C Attending Provider Active Start: December 08, 2024 End: December 08, 2024 Team Status: Inactive Member Role/Relationship Status Dates Vaishnavi Whitt , DRILL RUNNER HELPER-C Attending Provider Active Start: December 15, 2024 End: December 15, 2024 Vaishnavi Whitt , DRILL RUNNER HELPER-C Referring Provider Active Start: December 15, 2024 End: December 15, 2024 Dr. Eduardo Murcia MD Primary Care Provider Active Start: December 15, 2024 End: December 15, 2024 Team Status: Inactive Member Role/Relationship Status Dates Dr. Eduardo Murcia MD Primary Care Provider Active Start: January 05, 2025 End: January 05, 2025 Vaishnavi Whitt , DRILL RUNNER HELPER-C Attending Provider Active Start: January 05, 2025 End: January 05, 2025 Vaishnavi Whitt , DRILL RUNNER HELPER-C Referring Provider Active Start: January 05, 2025 End: January 05, 2025 Team Status: Inactive Member Role/Relationship Status Dates Dr. Eduardo Murcia MD Primary Care Provider Active Start: January 17, 2025 End: January 17, 2025 Vaishnavi Whitt , DRILL RUNNER HELPER-C Attending Provider Active Start: January 17, 2025 End: January 17, 2025 Vaishnavi Whitt , DRILL RUNNER HELPER-C Referring Provider Active Start: January 17, 2025 End: January 17, 2025 Team Status: Inactive Member Role/Relationship Status Dates Dr. Eduardo Murcia MD Primary Care Provider Active Start: January 19, 2025 End: January 19, 2025 Vaishnavi Whitt , DRILL RUNNER HELPER-C Attending Provider Active Start: January 19, 2025 End: January 19, 2025 Vaishnavi Whitt , DRILL RUNNER HELPER-C Referring Provider Active Start: January 19, 2025 End: January 19, 2025 Team Status: Inactive Member Role/Relationship Status Dates Dr. Eduardo Murcia MD Primary Care Provider Active Start: March 10, 2025 End: March 10, 2025 Dr. Eduardo Murcia MD Referring Provider Active Start: March 10, 2025 End: March 10, 2025 Dr. Elier Iyer DO Attending Provider Active Start: March 10, 2025 End: March 10, 2025 Team Status: Active Member Role/Relationship Status Dates Dr. Eduardo Murcia MD Primary Care Provider Active Start: March 10, 2025 Dr. Eduardo Murcia MD Referring Provider Active Start: March 10, 2025 Dr. Elier Iyer DO Attending Provider Active Start: March 10, 2025 Dr. Elier Iyer DO Other Provider Active St art: March 10, 2025 Team Status: Inactive Member Role/Relationship Status Dates Dr. Leticia Sylvester MD Referring Provider Active Star t: March 22, 2025 End: March 22, 2025 CAROLYN Adkins Attending Provider Active Start: March 22, 2025 End: March 22, 2025 Dr. Eduardo Murcia MD Primary Care Provider Active Start: March 22, 2025 End: March 22, 2025 Team Status: Active Member Role/Relationship Status Dates Dr. Eduardo Murcia MD Primary Care Provider Active Start: March 22, 2025 Dr. Phillip Wren MD Emergency Provider Active Sta rt: March 22, 2025 Dr. Eva Williamson DO Admit Provider Active Start: March 22, 2025 Dr. Eva Williamson DO Attending Provider Active Start: March 22, 2025 Scheduled Active and Recently Administ ered Medications [...] Ybarra RN) 0935 (Given - Provider: Eva aHmilton RN) 0905 (Given - Provider: Yessi Patel, ARLEEN) docusate (COLACE) capsule 200 mg 200 mg, [...] Pacheco RN) 09 (Given - Provider: Yessi Patel, ARLEEN) losartan (COZAAR) tablet 50 mg 50 mg, [...] RN) 0935 (Given - Provider: Eva Hamilton, ARLEEN)1820 (Given - Provider: Eva Hamilton RN - Comment: pt was supposed to be discharged and self removed ID band) 09 (Given - Provider: Yessi Patel RN) nitroGLYCERIN (NITRO-BID) 2 % ointment 0.5 inch 0.5 inch, Topical, 3 TIMES DAILY, First dose on Thu01/29/22 at 0930, Until Discontinued, 0953 (Given - Provider: Vaishnavi Ybarra RN)1513 (Given - Provider: Vaishnavi Ybarra RN)2048 (Given - Provider: Kerrie Pacheco RN - [...] RN) 0739 (See Alternative - Provider: Yessi Patel, ARLEEN) regadenoson (LEXISCAN) injection 0.4 mg (COMPLETED) 0.4 [...] Pacheco RN) 2053 (Given - Provider: Kerrie Pacheco RN) traZODone (DESYREL) tablet 300 mg 300 [...] drowsiness throughout the day and unsteady ambulation) 12 (Given - Provider: Kerrie Pacheco RN) Continuous Medication Order 01/29/2022 01/30/2022 01/31/2022 sodium chloride 0.9% IV solution Intravenous, at 75 mL/hr, CONTINUOUS, Starting on Thu01/27/22 at 1915, Until Thu01/31/22 at 1258 1929 ($$New Bag$$ - Provider: Vaishnavi Ybarra RN)2349 (Rate/Dose Verify - Provider: Kerrie Pacheco RN) 0421 (Rate/Dose Verify - Provider: Kerrie Pacheco, ARLEEN)0938 (Restarted - Provider: Eva Hamilton RN)1922 (Stopped [...] Oral, ONCE, 1 dose, On Thu02/16/23 at 1845 1817 (Given - Provid er: Andrade Ramos RN) dexAMETHasone (DECADRON) injection 10 mg (COMPLETED) 10 mg, Intravenous, ONCE, 1 dose, On Thu02/16/23 at 1845 1817 (Given - Provid er: Andrade Ramos RN) HYDROmorphone (DILAUDID) injection 0.5 mg (COMPLETED) 0.5 mg, Intravenous, ONCE, 1 dose, On Thu02/16/23 at 1845 1818 (Given - Provid er: Andrade Ramos RN) HYDROmorphone (DILAUDID) injection 1 mg (COMPLETED) 1 mg, Intravenous, ONCE, 1 dose, On Thu02/16/23 at 1645 1720 (Given - Provid er: Andrade Ramos, ARLEEN) Ondansetron 4mg/2ml (ZOFRAN) injection 4 mg (COMPLETED) [...] 0853 (Given - Provider: Loida Chakraborty RN) 09 (Given - Provider: Avery Cote, ARLEEN) 911 (Given - Provider: Keara Burrell, RN) [...] Chakraborty RN)2223 (Given - Provider: Navya Kelsey, RN) 09 (Given - Provider: Avery Cote RN)2034 (Given - Provider: Benito Guerrero, RN) 09 (Given - Provider: Keara Burrell, RN) Desvenlafaxine Succinate tab XL 100 mg 100 mg, Oral, DAILY, First dose on Thu05/23/23 at 0900, Until Discontinued 0900 (Automatically Held - Provider: HEATHER Shin) 09 (Automatically Held - Provider: HEATHER Shin) 0900 (Automatically Held - Provider: HEATHER Shin)1920 (Unheld by provider - Provider: System Discharge) Docusate (COLACE) capsule 100 mg (CANCELED) 100 mg, Oral, 2 TIMES DAILY, First dose on 05/23/23 at 0900, Until Discontinued 0853 (Given - Provider: Loida Chakraborty RN)172 (Given - Provider: Loida Chakraborty RN) 916 (Not Given - Provider: Avery Cote RN [...] RN) 09 (Given - Provider: Keara Burrell, ARLEEN) hydroCHLOROthiazide (HYDRODIURIL) tablet 25 mg 25 mg, [...] at 0800 09 (Given - Provider: Avery Cote, RN) Magnesium sulfate 2 g/50 ml in [...] RN - Reason: Order Parameters not met) 07 (Not Given - Provider: Karon Leach RN - Reason: Other - Comment: PO mg order) 06 (Not Given - Provider: Benito Guerrero RN [...] 0853 (Given - Provider: Loida Chakraborty RN) 0917 (Given - Provider: Avery Cote, RN) 0912 (Given - Provider: Keara Burrell, RN) Polyethylene glycol (MIRALAX) packet 17 g 17 g, Oral, DAILY, First dose on 05/23/23 at 0900, Until Discontinued 0853 (Given - Provider: Loida Chakraborty RN) 0832 (Not Given - Provider: Avery Cote, RN - Reason: Patient/family refused) 09 (Given - Provider: Keara Burrell, RN) Potassium chloride (K-DUR) tablet ER 40 [...] separately. 0729 (Not Given - Provider: Masha Page, RN - Reason: Order Parameters not met) 0916 (Given - Provider: Avery Cote, RN) 0654 (Given - Provider: Benito Guerrero, [...] (See Alternative - Provider: Masha Page RN) 0916 (See Alternative - Provider: Avery Cote, RN) 0654 (See Alternative - Provider: Benito [...] Kelsey, ARLEEN)2036 (Given - Provider: Benito Guerrero, ARLEEN) diphenhydrAMINE (BENADRYL) injection 25 mg 25 mg, [...] Thu05/22/23 at 2121, Until Thu05/26/23 at 192, Shortness of Breath Labetalol (NORMODYNE) injection 20 mg 20 mg, Intravenous, EVERY 4 HOURS NEEDED, Starting on Thu05/22/23 at 2121, Until Thu05/26/23 at 192, systolic blood pressure greater than 160, Administration duration: up to 20 mg over 2 minutes. lactulose (CHRONULAC) oral solution 20 g 20 g, Oral, EVERY 4 HOURS NEEDED, Starting on Thu05/22/23 at 2121, Until Thu05/26/23 at 1920, Constipation 1st Line Ondansetron 4mg/2ml (ZOFRAN) injection 4 mg 4 mg, Intravenous, EVERY 4 HOURS NEEDED, Starting on Thu05/22/23 at 2121, Until Thu05/26/23 at 192, Nausea / Vomiting Potassium phosphates 30 mmol in Sodium chloride 0.9%, with overfill 535 mL (total volume) IVPB 30 mmol, Intravenous, Administer over 6 Hours, DAILY NEEDED, Starting on Thu05/22/23 at 2121, Until Thu05/26/23 at 1919, Other, If phospate <2.5, give 30mmol, Extravasation [...] Automatically canceled at discontinue of medication order) Source Comments (unrecognize d section and content) In the event this informatio n is protected by the Federal Confidentiality of Alcohol and Drug Abuse Patient Records regulations: The Federal rules restrict any use of the information to criminally investigate or prosecute any alcohol or drug abuse patient.[facility] Goals (unrecognized section and content) Goals may be documented in a n alternate sectionGoals may be documented in an alternate sectionGoals may be documented in an alternate sectionGoals may be documented in an alternate section FOR RECORDS PERTAINING TO PATIENTS WHO ARE [...] BE BASED ON THE PRIMARY CLINICAL RECORDS. [employer] provides no warranty or guarantee of the accuracy or completeness of information in this document.
[2025-03-22 23:41] LABS: Mucous, Urine 0 SEEN /hpf (<or=2+); Red Blood Cells-Urine 0 SEEN /hpf (0-5)
[2025-03-22 23:45] LABS: Color, Urine Yellow (Yellow); Glucose, Dipstick Normal (Normal); Ketone-Dipstick Negative (Negative); Leukocyte Esterase-Dipstick 500 /ul (Negative); Nitrite-Dipstick Negative (Negative); Occult Blood-Urine 10 /ul (Negative); Protein-Dipstick Negative (Negative); Specific Gravity, Urine 1.010 (1.002-1.030); Urine Bilirubin Dipstick Negative (Negative)
[2025-03-23] VITALS (9 sets, daily range): BP systolic 110–120; BP diastolic 67–86; PULSE 69–80; RESP 16–22; TEMP 36.4–36.8; O2SAT 88–96; BMI 54.6
[2025-03-23 00:10] LABS: Squamous Epithelial Cells - UA 0-5 SEEN /hpf (5-10); Transitional Epithelial - Ur 0-5 SEEN /hpf (0-5)
[2025-03-23] MEDS: 0.9% Saline Lock 10 ML Syringe IV ×3 (03:40→21:05)
[2025-03-23] MEDS: DiphenhydrAMINE 50 MG/ML Syringe 25 MG IV ×3 (03:40→20:28)
[2025-03-23] MEDS: Aspirin E.C. 81 MG Tablet PO (05:31)
--- NOTE | 2025-03-23 05:55 | EKG12_ITS ---
Test Reason : CP ADMISSION Blood Pressure : */* mmHG Vent. Rate : 73 BPM Atrial Rate : 73 BPM P-R Int : 180 ms QRS Dur : 94 ms QT Int : 410 ms P-R-T Axes : 32 23 27 degrees QTcB Int : 451 ms Normal sinus rhythm Normal ECG When compared with ECG of 22-Mar-2025 16:27, MANUAL COMPARISON REQUIRED DATA IS UNCONFIRMED Confirmed by OTONIEL CHUNG, KWAKU ([id number]), makeup editor PATEL BENAVIDEZ ([id number]) on 03/23/2025 1:25:07 PM Referred By: MARTIN Confirmed By: KWAKU FREDERICK MD
[2025-03-23 06:04] LABS: Hematocrit 37.9 % (37-47); Hemoglobin 12.6 g/dL (12.0-15.0); Immature Granulocytes Count 0.030 X10^3/uL (0.0-0.0); Mean Corp Hgb Conc 33.2 g/dL (32-36); Mean Corpuscular Volume 88.8 fL (81-99); Mean Platelet Vol. 11.2 fl (6.2-12.0); NRBC Flagged by Analyzer 0 % (0-5); Platelet Count 164 K/mm3 (150-450); RBC Distribution Width CV 15.2 % (11.6-14.6); RBC Distribution Width SD 49.0 fl (35.1-43.9); Red Blood Count 4.27 M/mm3 (4.2-5.4); White Blood Count 5.7 K/mm3 (4.4-11.0)
[2025-03-23 06:38] LABS: AST(SGOT) 42 U/L (<=31); Alanine Aminotransfer ALT/SGPT 40 U/L (<=34); Albumin, Serum 3.7 g/dL (3.4-4.8); Alkaline Phosphatase 89 U/L (35-104); Anion Gap 11 (5-15); BUN 16 mg/dL (4-19); BUN/Creat Ratio 11.4 RATIO (10-20); Calcium,Total 8.7 mg/dL (7.6-11.0); Carbon Dioxide 25.7 mmol/L (21.0-32.0); Chloride 102 mmol/L (98-108); Cholesterol 121 mg/dL (<=200); Estimated Creatinine Clearance 61.73 ml/min (50-250); Globulin 2.2 g/dL (2.2-4.2); Glucose 96 mg/dL (70-99); Low Density Lipoprotein Calc. 45 mg/dL; Potassium 3.8 mmol/L (3.3-5.1); Triglycerides 127 mg/dL; Very Low Density Lipoprotein 25 mg/dL (5-40); cholesterol:hdl ratio screen 2.37
--- NOTE | 2025-03-23 09:41 | PN.HOSP_ITS ---
Reason for Visit Reason for Visit: Diagnoses Morbid (severe) obesity with alveolar hypoventilation (03/22/25) Melena (03/22/25) Other forms of dyspnea (03/22/25) Chest pain, unspecified (03/22/25) Epigastric pain (03/22/25) Abdominal distension (gaseous) (03/22/25) Abnormal weight gain (03/22/25) Patient's noncompliance with other medical treatment and regimen due to unspecified reason (03/22/25) Objective Data Objective Data Vital Signs: Vital Signs Temp Pulse Resp BP Pulse Ox O2 Del Method 97.5 F L 80 18 110/75 88 Room Air 03/23/25 07:44 03/23/25 07:44 03/23/25 07:44 03/23/25 07:44 03/23/25 07:44 03/23/25 07:52 Oxygen Delivery Method Room Air Weight: 148.8 kg Body Mass Index (BMI) 54.6 Lab / Micro Data 03/23/25 05:45 03/23/25 05:45 Labs: Laboratory Results - last 24 hr 03/22/25 15:58: WBC 6.7, RBC 4.77, Hgb 14.0, Hct 42.1, MCV 88.3, MCH 29.4, MCHC 33.3, RDW Std Deviation 46.9 H, RDW Coeff of Xavier 14.6, Plt Count 163, MPV 11.4, Immature Gran % (Auto) 0.600, Neut % (Auto) 66.1, Lymph % (Auto) 20.9, [place] % (Auto) 7.1, Eos % (Auto) 4.7, Baso % (Auto) 0.6, Absolute Neuts (auto) 4.5, Absolute Lymphs (auto) 1.41, Nucleated RBC % 0, Sodium 140, Potassium 4.5, Chloride 103, Carbon Dioxide 23.9, Anion Gap 13, BUN 15, Creatinine 1.19, Estim Creat Clear Calc 71.72, Est GFR (MDRD) Non-Af 51 L, BUN/Creatinine Ratio 12.4, Glucose 98, Calcium 9.2, Troponin T High Sens 12, NT pro BNP II 213 03/22/25 17:52: Magnesium 2.1, Troponin T Hi Sens 2 Hr 10 03/22/25 21:18: Troponin T Hi Sens 4Hr 12 03/22/25 22:39: POC Glucose 88 03/22/25 23:30: Urine Color Yellow, Urine Clarity Clear, Urine pH 7.0, Ur Specific Cordell 1.010, Urine Protein Negative, Urine Glucose (UA) Normal, Urine Ketones Negative, Urine Occult Blood 10 H, Urine Nitrite Negative, Urine Bilirubin Negative, Urine Urobilinogen Normal, Ur Leukocyte Esterase 500 H, Urine RBC 0 SEEN, Urine WBC 50-100 SEEN, Ur Squamous Epith Cells 0-5 SEEN, Ur Transition Epith Cell 0-5 SEEN, Urine Bacteria 1+, Urine Mucus 0 SEEN 03/23/25 05:45: WBC 5.7, RBC 4.27, Hgb 12.6, Hct 37.9, MCV 88.8, MCH 29.5, MCHC 33.2, RDW Std Deviation 49.0 H, RDW Coeff of Xavier 15.2 H, Plt Count 164, MPV 11.2, Immature Gran % (Auto) 0.500, Neut % (Auto) 60.0, Lymph % (Auto) 25.0, [place] % (Auto) 8.7, Eos % (Auto) 4.9, Baso % (Auto) 0.9, Absolute Neuts (auto) 3.4, Absolute Lymphs (auto) 1.43, Nucleated RBC % 0, Sodium 139, Potassium 3.8, Chloride 102, Carbon Dioxide 25.7, Anion Gap 11, BUN 16, Creatinine 1.38 H, Estim Creat Clear Calc 61.73, Est GFR (MDRD) Non-Af 43 L, BUN/Creatinine Ratio 11.4, Glucose 96, Hemoglobin A1c 4.8, Calcium 8.7, Phosphorus 5.3 H, Total Bilirubin 0.53, AST 42 H, ALT 40 H, Alkaline Phosphatase 89, Total Protein 5.9, Albumin 3.7, Globulin 2.2, Albumin/Globulin Ratio 1.6, Triglycerides 127, Cholesterol 121, LDL Cholesterol, Calc 45, VLDL Cholesterol 25, HDL Cholesterol 51, Cholesterol/HDL Ratio 2.37, TSH 3.700 03/23/25 06:02: POC Glucose 91 Radiography Diagnostic Testing: Radiology Impression Chest X-Ray 03/22/25 16:06 IMPRESSION: The lateral view is somewhat limited by patient motion. Right upper quadrant abdominal surgical clips are again seen. Prior cervical surgery is noted. Mild right hemidiaphragm elevation is seen. Lungs are hypoinflated, but appear clear of acute disease. No pleural effusion or pneumothorax is evident. The cardiomediastinal silhouette is stable, without evidence of cardiomegaly. No evidence of acute cardiopulmonary disease. Reading Location: [facility] Abdomen/Pelvis CT 03/22/25 20:20 IMPRESSION: No acute findings Reading Location: [place] [id number] Physical Exam Narrative GENERAL: cooperative HEENT: Atraumatic; normocephalic EYES; Anicteric, Normal Conjunctiva NECK; supple, normal thyroid, RESPIRATORY: Diminished to auscultation CARDIOVASCULAR: Regular S1 S2, GI: soft, normoactive bowel sounds, : No Renal angle tenderness; EXTREMITIES: Bipedal edema, no clubbing, MUSCULOSKELETAL: no muscle wasting NEURO: Awake; no lateralizing signs. SKIN: No Rash PSYCH; Flat affect Assessment & Plan Assessment/Plan (1) HOUSE (dyspnea on exertion): (2) Weight gain: (3) Body mass index (BMI) greater than 50: (4) Blood in stool: (5) Acute CHF: QUALIFIERS: Heart failure type: diastolic Qualified Code(s): I 50.31 - Acute diastolic (congestive) heart failure PLAN: Plan Patient is a 64-year-old lady with multiple comorbidities was admitted with progressive shortness of breath with exertion as well as 40 pound weight gain over 3 months.. An assessment of acute congestive heart failure made admitted to regular nursing floor for further management 1. Acute congestive heart failure with preserved ejection fraction ? Patient echo from an outside hospital on 01/28/2022 demonstrated EF of 70%. Repeat echo ordered. Patient subsequently placed on continuous cardiac monitoring placed on strict input and output, low-sodium diet, daily weights as well as diuretic therapy 2. Dyspnea on exertion ? Possibly related to patient acute congestive heart failure patient was however placed on continuous cardiac monitoring serial cardiac enzymes ordered in addition to nuclear stress test 3. Acute kidney injury ? Patient creatinine from 01/05/2025 was 1.01 creatinine on admission was 1.38 will continue with daily monitoring. Also ordered kidney ultrasound to rule out obstructive uropathy 4. Hypertension ? Blood pressure controlled, home medications continued with dose adjustment as needed 5. Obstructive sleep apnea ? Per patient she was diagnosed in the past but was never prescribed any PAP therapy 6. Dyslipidemia ?Patient is on statin therapy, continued at home dose 7. Hypertension ? Blood pressure controlled, home medications continued with dose adjustment as needed 8. Depression with anxiety ? Patient is on venlafaxine 9. Peripheral neuropathy ? Patient is on gabapentin 10. Class III obesity with BMI of 54.6 ? Complicating care 11. 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 LFTs on admission slightly elevated 12. History of hep C ? Patient was treated appropriately currently in remission 13. DVT prophylaxis ? Subcu heparinare weight loss advised Time spent in the patient's overall evaluation,decision-making process, review of diagnostic data, adjustment of management, discussion with other providers, nursing nursing and ancillary staff involved in patient's care documentation, 52 Minutes Charges/Coding Visit Charges Inpatient E&M: 67296 [facility] Hosp L3
--- NOTE | 2025-03-23 10:22 | STRESSREP ---
Stress Test Report Pharmacologic myocardial perfusion stress test. Indication; 64-year-old patient had symptoms of dyspnea on exertion hypertension KELLY dyslipidemia Previous echo EF was preserved Ejection fraction around 70%. Scheduled for nuclear stress test for evaluation of symptoms of dyspnea on exertion. Stress protocol: Resting EKG demonstrates. Normal sinus rhythm. 0.4 mg of regadenoson was infused per usual protocol followed by rapid intravenous saline flush injection continuous EKG monitoring was performed. The maximum heart rate attained was 78 bpm which was 49% of maximum predicted heart . Stress EKG showed[, no significant change from the resting EKG, with maximum heart rate of 78 bpm. Arrhythmia: No arrhythmia demonstrated Symptoms: Patient has symptoms of chest pain Blood pressure at rest: [130/70 mmHg blood pressure at the end of stress: 130/70 mmHg] Myocardial perfusion protocol. 15 mCi ]of Technetium 99m Sestamibi was injected at rest. [ 0.4 mg ]of Regadenoson was infused per usual protocol peak infusion[45.8 mCi ]of Technetium 99m sestamibi was injected. Stress images were obtained stress and rest images were reconstructed and compared in the short axis vertical and horizontal long axis. Gated images were also obtained Perfusion SPECT analysis: Review of the images demonstrate normal uptake of sestamibi at rest, post stress images demonstrate similar uptake of sestamibi to the resting images, homogeneous tracer uptake With no evidence of reversible myocardial ischemia. Gated SPECT analysis: The gated ejection fraction is 69% Normal LV wall motion Conclusion: Negative Lexiscan sestamibi myocardial perfusion study for reversible myocardial ischemia No fixed defect noted Normal LV systolic function Donaldo Tyson MD,FACC,[facility] seo expert
--- NOTE | 2025-03-23 11:10 | US_ITS ---
PROCEDURE: KIDNEY AND BLADDER 03/23/2025 REASON FOR EXAM: CARMEN TECHNIQUE: KIDNEY AND BLADDER COMPARISON: CT abdomen pelvis 03/22/2025. FINDINGS: Kidneys: Normal renal sizes and echotextures. Mild symmetric renal cortical scarring. [place]: No hydronephrosis or nephrolithiasis. Cysts or Masses: No cysts or large solid renal masses. Other: The urinary bladder is mildly distended without wall thickening. RIGHT Kidney Size: 9.3 x 4.7 x 5.0 cm Volume: 115 mL Parenchymal Thickness: 0.7 cm (>14mm is normal) Cortical Thickness (if discernible): N/a (>6mm is normal) LEFT Kidney Size: 9.1 x 5.6 x 5.1 cm Volume: 137 mL Parenchymal Thickness: 0.7 cm (>14mm is normal) Cortical Thickness (if discernible): N/a (>6mm is normal) US/Kidney and Bladder IMPRESSION: NORMAL RENAL ULTRASOUND. Reading Location: [id number]
[2025-03-23] MEDS: Magnesium Chloride 64 MG Delay Rel.Tablet PO (11:18)
[2025-03-23] MEDS: Thiamine Hydrochloride 100 MG Tablet PO (11:18)
--- NOTE | 2025-03-23 14:43 | CASEMGMT ---
Discharge Planning A list of?HH providers including quality and resource use data and consistent with the patient's preferred geographic region, medical needs, and insurance network was created in [employer] Guide.? This list was provided to the RN MARY KATE. Annalee Velazquez, Discharge Planning Asst.
--- NOTE | 2025-03-23 14:59 | CHAPLAIN ---
Type of Pastoral Visit _x__ Initial Visit ___ Follow-up Visit ___ On-call Visit ___ General Patient Visit ___ Spiritual Assessment ___ Family Conference ___ Bereavement ___ Rapid Response ___ Code Blue ___ Other (describe below) Pastoral Care Referral From _x__ Patient ___ Family ___ Nurse ___ Physician ___ It Manager ___ Manager Sap ___ Other (describe below) Sacrament/Intervention _x__ Active listening ___ Anointing ___ Worship ___ Bereavement ___ Communion ___ Gali exploration ___ ___ Life review _x__ Prayer ___ Reconciliation ___ Sacrament of Sick _x__ Supportive presence ___ Wedding ___ Other (describe below) Pastoral Comments patient is resting quietly in bed; pt is able to explain her situation and her hopes for getting better; pt has a daughter that works in the hospital and is thankful for her knowledge and guidance; pt states that she is doing fine, has to be patient to work through the process, and welcomes prayers for her support
--- NOTE | 2025-03-23 15:08 | CASEMGMT ---
ARLEEN HARTMANN in to discuss discharge planning with patient. Patient states she would like HHC at discharge, HHC list provided. Patient states she has had [facility] in the past and would like them again. Patient is currently on oxygen. ARLEEN HARTMANN discuss possible oxygen at discharge. Patient states she prefers [employer] for DME. Patient denies further needs at discharge. ARLEEN HARTMANN updated DC planning intern to send referral to [facility]. Green sheet placed on chart for HHC and possible Home Oxygen.
--- NOTE | 2025-03-23 15:16 | CASEMGMT ---
Discharge Planning HH referral sent to [facility]. Annalee Velazquez DC Planning Asst.
[2025-03-23 22:34] LABS: Barbiturate Urine NEGATIVE (< 200 ng/mL); Benzodiazepine Urine NEGATIVE (< 200 ng/mL); PCP Urine NEGATIVE (< 25 ng/mL); THC Urine NEGATIVE (< 50 ng/mL)
[2025-03-24 03:15] VITALS: BP 97/64; PULSE 72; RESP 16; TEMP 36.9; O2SAT 97
[2025-03-24] MEDS: 0.9% Saline Lock 10 ML Syringe IV ×2 (03:16→06:11)
[2025-03-24] MEDS: DiphenhydrAMINE 50 MG/ML Syringe 25 MG IV (03:16)
[2025-03-24 04:34] LABS: Hematocrit 38.2 % (37-47); Hemoglobin 12.5 g/dL (12.0-15.0); Immature Granulocytes Count 0.020 X10^3/uL (0.0-0.0); Mean Corp Hgb Conc 32.7 g/dL (32-36); Mean Corpuscular Volume 89.3 fL (81-99); Mean Platelet Vol. 11.3 fl (6.2-12.0); NRBC Flagged by Analyzer 0 % (0-5); Platelet Count 152 K/mm3 (150-450); RBC Distribution Width CV 15.2 % (11.6-14.6); RBC Distribution Width SD 49.5 fl (35.1-43.9); Red Blood Count 4.28 M/mm3 (4.2-5.4); White Blood Count 5.5 K/mm3 (4.4-11.0)
[2025-03-24 04:51] LABS: Magnesium 2.3 mg/dL (1.5-2.2)
[2025-03-24 05:08] LABS: Anion Gap 13 (5-15); BUN 18 mg/dL (4-19); BUN/Creat Ratio 13.4 RATIO (10-20); Calcium,Total 8.4 mg/dL (7.6-11.0); Carbon Dioxide 26.7 mmol/L (21.0-32.0); Chloride 102 mmol/L (98-108); Estimated Creatinine Clearance 63.11 ml/min (50-250); Glucose 108 mg/dL (70-99); Potassium 3.5 mmol/L (3.3-5.1)
[2025-03-24 05:45] VITALS: BMI 54.6
--- NOTE | 2025-03-24 07:37 | PCM.PN.HOSP ---
Reason for Visit Reason for Visit: Diagnoses Morbid (severe) obesity with alveolar hypoventilation (03/22/25) Acute diastolic (congestive) heart failure (03/22/25) Melena (03/22/25) Other forms of dyspnea (03/22/25) Chest pain, unspecified (03/22/25) Epigastric pain (03/22/25) Abdominal distension (gaseous) (03/22/25) Abnormal weight gain (03/22/25) Patient's noncompliance with other medical treatment and regimen due to unspecified reason (03/22/25) Subjective Subjective Patient was started on furosemide and is currently negative fluid balance of 1 L over the past 24 hours Objective Data Objective Data Vital Signs: Vital Signs Temp Pulse Resp BP Pulse Ox O2 Del Method O2 Flow Rate 98.5 F 72 16 97/64 97 Room Air 2 03/24/25 03:15 03/24/25 03:15 03/24/25 03:15 03/24/25 03:15 03/24/25 03:15 03/24/25 03:15 03/24/25 03:15 Oxygen Flow Rate (L/min) 2 Oxygen Delivery Method Room Air Weight: 148.9 kg Body Mass Index (BMI) 54.6 Intake & Output: Intake and Output for Last 24 Hours 03/22/25 03/23/25 03/24/25 23:59 23:59 23:59 Intake Total 450 / 930 660 / 660 Output Total 850 / 1550 1300 / 1300 Balance -400 / -620 -640 / -640 Lab / Micro Data 03/24/25 03:44 03/24/25 03:44 Labs: Laboratory Results - last 24 hr 03/22/25 20:21: Urine Opiates Screen NEGATIVE, U Buprenorphine Qual NEGATIVE, Ur Oxycodone Screen NEGATIVE, Urine Methadone Screen NEGATIVE, Urine Fentanyl Screen NEGATIVE, Ur Barbiturates Screen NEGATIVE, Ur Phencyclidine Scrn NEGATIVE, Ur Amphetamines Screen NEGATIVE, U Benzodiazepines Scrn NEGATIVE, Urine Cocaine Screen NEGATIVE, U Cannabinoids Screen NEGATIVE 03/24/25 03:44: WBC 5.5, RBC 4.28, Hgb 12.5, Hct 38.2, MCV 89.3, MCH 29.2, MCHC 32.7, RDW Std Deviation 49.5 H, RDW Coeff of Xavier 15.2 H, Plt Count 152, MPV 11.3, Immature Gran % (Auto) 0.400, Neut % (Auto) 54.9, Lymph % (Auto) 28.9, [place] % (Auto) 10.2 H, Eos % (Auto) 5.1 H, Baso % (Auto) 0.5, Absolute Neuts (auto) 3.0, Absolute Lymphs (auto) 1.59, Nucleated RBC % 0, Sodium 142, Potassium 3.5, Chloride 102, Carbon Dioxide 26.7, Anion Gap 13, BUN 18, Creatinine 1.35 H, Estim Creat Clear Calc 63.11, Est GFR (MDRD) Non-Af 44 L, BUN/Creatinine Ratio 13.4, Glucose 108 H, Calcium 8.4, Phosphorus 5.9 H, Magnesium 2.3 H Radiography Diagnostic Testing: Radiology Impression Echocardiogram 03/22/25 20:26 Interpretation Summary The estimated ejection fraction is 55???60 %. Overall LV systolic function appears normal TDS With limited transthoracic echocardiogram Ordering Physician: Harpreet Williamson Performed By: Jagdish Morales RCS Renal Ultrasound 03/23/25 11:10 IMPRESSION: NORMAL RENAL ULTRASOUND. Reading Location: [facility] Physical Exam Narrative GENERAL: cooperative HEENT: Atraumatic; normocephalic EYES; Anicteric, Normal Conjunctiva NECK; supple, normal thyroid, RESPIRATORY: Diminished to auscultation CARDIOVASCULAR: Regular S1 S2, GI: soft, normoactive bowel sounds, : No Renal angle tenderness; EXTREMITIES: Bipedal edema, no clubbing, MUSCULOSKELETAL: no muscle wasting NEURO: Awake; no lateralizing signs. SKIN: No Rash PSYCH; Flat affect Assessment & Plan Assessment/Plan (1) HOUSE (dyspnea on exertion): (2) Weight gain: (3) Body mass index (BMI) greater than 50: (4) Blood in stool: (5) Acute CHF: QUALIFIERS: Heart failure type: diastolic Qualified Code(s): I50.31 - Acute diastolic (congestive) heart failure PLAN: Plan Patient is a 64-year-old lady with multiple comorbidities was admitted with progressive shortness of breath with exertion as well as 40 pound weight gain over 3 months.. An assessment of acute congestive heart failure made admitted to regular nursing floor for further management 1. Acute congestive heart failure with preserved ejection fraction ? Patient echo from an outside hospital on 01/28/2022 demonstrated EF of 70%. Repeat echo ordered. Patient subsequently placed on continuous cardiac monitoring placed on strict input and output, low-sodium diet, daily weights as well as diuretic therapy ?03/24/2025;Patient was started on furosemide and is currently negative fluid balance of 1 L over the past 24 hours. Repeat echo demonstrated EF of 55 to 60%. Will continue with current diuretic therapy with monitoring of electrolytes 2. Dyspnea on exertion ? Possibly related to patient acute congestive heart failure patient was however placed on continuous cardiac monitoring serial cardiac enzymes ordered in addition to nuclear stress test 3. Acute kidney injury ? Patient creatinine from 01/05/2025 was 1.01 creatinine on admission was 1.38 will continue with daily monitoring. Also ordered kidney ultrasound to rule out obstructive uropathy 4. Hypertension ? Blood pressure controlled, home medications continued with dose adjustment as needed 5. Obstructive sleep apnea ? Per patient she was diagnosed in the past but was never prescribed any PAP therapy 6. Dyslipidemia ?Patient is on statin therapy, continued at home dose 7. Hypertension ? Blood pressure controlled, home medications continued with dose adjustment as needed 8. Depression with anxiety ? Patient is on venlafaxine 9. Peripheral neuropathy ? Patient is on gabapentin 10. Class III obesity with BMI of 54.6 ? Complicating care 11. 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 LFTs on admission slightly elevated 12. History of hep C ? Patient was treated appropriately currently in remission 13. DVT prophylaxis ? Subcu heparinare weight loss advised Time spent in the patient's overall evaluation,decision-making process, review of diagnostic data, adjustment of management, discussion with other providers, nursing nursing and ancillary staff involved in patient's care documentation, 52 Minutes
[2025-03-24 08:39] VITALS: BP 123/75; PULSE 64; RESP 18; TEMP 36.2; O2SAT 95
[2025-03-24] MEDS: Thiamine Hydrochloride 100 MG Tablet PO (08:41)
[2025-03-24] MEDS: Aspirin E.C. 81 MG Tablet PO (08:41)
[2025-03-24] MEDS: Magnesium Chloride 64 MG Delay Rel.Tablet PO (08:41)
--- NOTE | 2025-03-24 09:08 | PCM.DC.SUM ---
Providers Date of Admission: 03/22/25 Date of Discharge: 03/24/25 Primary Care Physician: Dr. Valerie Ahmadi MD Reason For Visit: HOUSE WITH CHEST PRESSURE Diagnosis Discharge Diagnosis (1) HOUSE (dyspnea on exertion): Status: Acute Code(s): R06.09 - Other forms of dyspnea (2) Weight gain: Status: Acute Code(s): R63.5 - Abnormal weight gain (3) Body mass index (BMI) greater than 50: Status: Acute (4) Blood in stool: Status: Acute Code(s): K92.1 - Melena (5) Acute CHF: Status: Acute Code(s): I50.9 - Heart failure, unspecified Qualifiers: Heart failure type: diastolic Qualified Code(s): I50.31 - Acute diastolic (congestive) heart failure Plan Patient is a 64-year-old lady with multiple comorbidities was admitted with progressive shortness of breath with exertion as well as 40 pound weight gain over 3 months.. An assessment of acute congestive heart failure made admitted to regular nursing floor for further management 1. Acute congestive heart failure with preserved ejection fraction ? Patient echo from an outside hospital on 01/28/2022 demonstrated EF of 70%. Repeat echo ordered. Patient subsequently placed on continuous cardiac monitoring placed on strict input and output, low-sodium diet, daily weights as well as diuretic therapy ?03/24/2025;Patient was started on furosemide and is currently negative fluid balance of 1 L over the past 24 hours. Repeat echo demonstrated EF of 55 to 60%. Will continue with current diuretic therapy with monitoring of electrolytes 2. Dyspnea on exertion ? Possibly related to patient acute congestive heart failure patient was however placed on continuous cardiac monitoring serial cardiac enzymes ordered in addition to nuclear stress test 3. Acute kidney injury ? Patient creatinine from 01/05/2025 was 1.01 creatinine on admission was 1.38 will continue with daily monitoring. Also ordered kidney ultrasound to rule out obstructive uropathy 4. Hypertension ? Blood pressure controlled, home medications continued with dose adjustment as needed 5. Obstructive sleep apnea ? Per patient she was diagnosed in the past but was never prescribed any PAP therapy 6. Dyslipidemia ?Patient is on statin therapy, continued at home dose 7. Hypertension ? Blood pressure controlled, home medications continued with dose adjustment as needed 8. Depression with anxiety ? Patient is on venlafaxine 9. Peripheral neuropathy ? Patient is on gabapentin 10. Class III obesity with BMI of 54.6 ? Complicating care 11. 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 LFTs on admission slightly elevated 12. History of hep C ? Patient was treated appropriately currently in remission 13. DVT prophylaxis ? Subcu heparinare weight loss advised Time spent in the patient's overall evaluation,decision-making process, review of diagnostic data, adjustment of management, discussion with other providers, nursing nursing and ancillary staff involved in patient's care documentation, 35 Minutes Medications at Discharge Home Medications atorvastatin 40 mg tablet 40 mg PO DAILY cholesterol 07/10/24 trazodone 100 mg tablet 100 mg PO DAILY mental health 07/10/24 thiamine HCl (vitamin B1) 100 mg tablet 100 mg PO DAILY #30 tabs 07/13/24 gabapentin 300 mg capsule 300 mg PO Q12H 10/18/24 mirtazapine 15 mg tablet 15 mg PO QHS 10/18/24 propranolol 40 mg tablet 60 mg PO BID blood pressure 12/08/24 sennosides 8.6 mg-docusate sodium 50 mg tablet (Senna Plus) 1 tab-cap PO BID PRN constipation 12/08/24 venlafaxine 150 mg tablet,extended release 24 hr 150 mg PO QDAY 12/08/24 tirzepatide (weight loss) 2.5 mg/0.5 mL subcutaneous solution (Zepbound) 2.5 mg subcut QWEEK 02/21/25 magnesium 250 mg tablet 250 mg PO DAILY 03/22/25 mecobalamin (vitamin B12) 1,000 mcg lozenges 1,000 mcg PO DAILY 03/22/25 furosemide 40 mg tablet (Lasix) 40 mg PO DAILY #60 tabs 03/24/25 potassium chloride 20 mEq tablet,extended release(part/cryst) 20 meq PO DAILY #60 tabs 03/24/25 Hospital Course Summary of Care Provided Minutes Spent on Discharge: 35 Physical Exam Narrative GENERAL: cooperative HEENT: Atraumatic; normocephalic EYES; Anicteric, Normal Conjunctiva NECK; supple, normal thyroid, RESPIRATORY: Diminished to auscultation CARDIOVASCULAR: Regular S1 S2, GI: soft, normoactive bowel sounds, : No Renal angle tenderness; EXTREMITIES: Bipedal edema, no clubbing, MUSCULOSKELETAL: no muscle wasting NEURO: Awake; no lateralizing signs. SKIN: No Rash PSYCH; Flat affect Weight / BMI Weight Weight: 148.9 kg Body Mass Index (BMI) 54.6 ABG / Lab / Microbiology Data 03/24/25 03:44 03/24/25 03:44 Laboratory: Laboratory Results - last 24 hr 03/22/25 20:21: Urine Opiates Screen NEGATIVE, U Buprenorphine Qual NEGATIVE, Ur Oxycodone Screen NEGATIVE, Urine Methadone Screen NEGATIVE, Urine Fentanyl Screen NEGATIVE, Ur Barbiturates Screen NEGATIVE, Ur Phencyclidine Scrn NEGATIVE, Ur Amphetamines Screen NEGATIVE, U Benzodiazepines Scrn NEGATIVE, Urine Cocaine Screen NEGATIVE, U Cannabinoids Screen NEGATIVE 03/24/25 03:44: WBC 5.5, RBC 4.28, Hgb 12.5, Hct 38.2, MCV 89.3, MCH 29.2, MCHC 32.7, RDW Std Deviation 49.5 H, RDW Coeff of Xavier 15.2 H, Plt Count 152, MPV 11.3, Immature Gran % (Auto) 0.400, Neut % (Auto) 54.9, Lymph % (Auto) 28.9, [place] % (Auto) 10.2 H, Eos % (Auto) 5.1 H, Baso % (Auto) 0.5, Absolute Neuts (auto) 3.0, Absolute Lymphs (auto) 1.59, Nucleated RBC % 0, Sodium 142, Potassium 3.5, Chloride 102, Carbon Dioxide 26.7, Anion Gap 13, BUN 18, Creatinine 1.35 H, Estim Creat Clear Calc 63.11, Est GFR (MDRD) Non-Af 44 L, BUN/Creatinine Ratio 13.4, Glucose 108 H, Calcium 8.4, Phosphorus 5.9 H, Magnesium 2.3 H Radiography Diagnostic Testing: Radiology Impression Echocardiogram 03/22/25 20:26 Interpretation Summary The estimated ejection fraction is 55???60 %. Overall LV systolic function appears normal TDS With limited transthoracic echocardiogram Ordering Physician: Harpreet Williamson Performed By: Jagdish Morales RCS Renal Ultrasound 03/23/25 11:10 IMPRESSION: NORMAL RENAL ULTRASOUND. Reading Location: [facility] D/ Instructions Discharge Diet: 8 Cup Fluid Restriction and 2000 mg Sodium Diet Discharge Activity: Return to Normal Activity Call your doctor if you observe: Fever of 101 or Higher, Shortness of breath, Fainting spells and Chest pain DC O2, CPAP, BIPAP Needs Home O2 Discharge instructions: No Meaningful Use Info Meaningful Use Meaningful Use Diagnoses (Choose all that apply): CHF CHF VANIA/ARB ordered at discharge?: No Reason VANIA/ARB not ordered?: Not indicated Documented LVEF (%): 55 Ischemic Stroke Statin Dosing Therapy Reference: STATIN DOSE THERAPY REFERENCE: * Patients > 75 years receive moderate or high dose statin therapy. * Patients 75 years or YOUNGER should receive HIGH intensity statin dose unless contraindicated. You will be required to document reason for non-treatment if statin daily dose does not meet guidelines. HIGH DOSE STATIN THERAPY DAILY Atorvastatin > than or = to 40 mg Rosuvastatin > than or = to 20 mg Amlodipine + Atorvastatin > than or = to 2.5/40 mg Ezetimibe + Simvastatin 10/80 mg Simvastatin 80mg Discharge Plan Admission Admit Date/Time: 03/22/25 19:59 Attending Provider: Harpreet Brown Primary Care Provider: Valerie Ahmadi Consulting Providers: Harpreet Williamson Discharge Orders/Prescriptions Prescriptions: New furosemide [Lasix] 40 mg tablet 40 mg PO DAILY Qty: 60 0RF potassium chloride 20 mEq tablet,ER particles/crystals 20 meq PO DAILY Qty: 60 0RF Continued gabapentin 300 mg capsule 300 mg PO Q12H mirtazapine 15 mg tablet 15 mg PO QHS venlafaxine 150 mg tablet extended release 24hr 150 mg PO QDAY sennosides-docusate sodium [Senna Plus] 8.6-50 mg tablet 1 tab-cap PO BID PRN (Reason: constipation) trazodone 100 mg tablet 100 mg PO DAILY atorvastatin 40 mg tablet 40 mg PO DAILY thiamine HCl (vitamin B1) 100 mg tablet 100 mg PO DAILY Qty: 30 0RF propranolol 40 mg tablet 60 mg PO BID mecobalamin (vitamin B12) 1,000 mcg lozenge 1,000 mcg PO DAILY Rx Instructions: allow to dissolve in mouth OR may chew lightly before swallowing magnesium 250 mg tablet 250 mg PO DAILY Zepbound 2.5 mg/0.5 mL solution 2.5 mg subcut QWEEK Referrals / Follow Up: Valerie Ahmadi MD [Primary Care Provider] - Within 2 Weeks Disposition Disposition (needs filled in before D/C Order can be placed): Home, Self Care Charges/Coding Visit Charges Inpatient E&M: 23412 Disch Hosp >30min
[2025-03-24 09:47] VITALS: O2SAT 90; O2SAT 95
== END 2025-03-24 12:44 | disposition home health service (06) ==
LOC: ED 19:13 → PCU 20:49
PROVIDERS: Admitting Provider Internal Medicine; Emergency Provider Emergency Medicine; PCP Internal Medicine; Visit Provider Internal Medicine
DX: I11.0 Hypertensive heart disease with heart failure (principal); K70.30 Alcoholic cirrhosis of liver without ascites; I50.31 Acute diastolic (congestive) heart failure; Z68.43 Body mass index [BMI] 50.0-59.9, adult; E66.2 Morbid (severe) obesity with alveolar hypoventilation; E66.813 Obesity, class 3; G62.9 Polyneuropathy, unspecified; K76.0 Fatty (change of) liver, not elsewhere classified; E78.00 Pure hypercholesterolemia, unspecified; I25.10 Atherosclerotic heart disease of native coronary artery without angina pectoris; I89.0 Lymphedema, not elsewhere classified; Z91.199 Patient's noncompliance with other medical treatment and regimen due to unspecified reason; Z87.891 Personal history of nicotine dependence; R10.13 Epigastric pain; G47.33 Obstructive sleep apnea (adult) (pediatric); F41.8 Other specified anxiety disorders; Z79.899 Other long term (current) drug therapy; Z86.19 Personal history of other infectious and parasitic diseases; Z98.84 Bariatric surgery status
CPT/HCPCS: 36415; 71046; 74178; 76770; 78452; 80048; 80053; 80061; 80307; 81001; 82962; 83036; 83735; 83880; 84100; 84443; 84484; 85025; 93005; 93017; 93306; 94668; 96365; 96366; 96375; 96376; 97166; 97535; 99221; 99284; A9500; Q9957; Q9967; A4216; C8929; G0378; J1938; J2785

== ENCOUNTER 2025-03-29 14:40 | Emergency (ER) | payer MEDICARE, MEDICAID, SELFPAY ==
[2025-03-29] VITALS (7 sets, daily range): BP systolic 135–167; BP diastolic 80–104; PULSE 72–82; RESP 16–22; TEMP 35.9–36.9; O2SAT 94–99
--- NOTE | 2025-03-29 14:54 | EKG12_ITS ---
Test Reason : SOB Blood Pressure : */* mmHG Vent. Rate : 80 BPM Atrial Rate : 80 BPM P-R Int : 180 ms QRS Dur : 84 ms QT Int : 360 ms P-R-T Axes : 45 8 14 degrees QTcB Int : 415 ms Normal sinus rhythm Possible Inferior infarct , age undetermined Abnormal ECG Confirmed by OTONIEL CHUNG, KWAKU ([id number]), photo editor AMANDO STRONG ([id number]) on 03/30/2025 2:15:58 PM Referred By: Confirmed By: KWAKU FREDERICK MD
--- NOTE | 2025-03-29 14:55 | EDS_ITS ---
HPI History of Present Illness Chief Complaint: Shortness of Breath Detail of Chief Complaint: Shortness of breath that has gotten worse over the past 12 to 24 hours Informant: patient Onset/Context/Timing Onset: Today Context: sudden Timing: Continuous Quality: Positive for Dyspnea on exertion and Orthopnea; Negative for PND or Wheezing Current Severity: Mild Maximum Severity: Severe Worsened by: Exertion and Lying flat Relieved by: Nothing Associated Symptoms Negative for cough, rhinorrhea, post nasal drip, ear pain, fever, sore throat, subjective, chills or sweats Chest Pain: Positive for Intermittent (1 to 2 minutes no longer than 5 minutes) Narrative Narrative: Patient is a 64-year-old woman. She was seen by me on March 22 admitted for dyspnea on exertion rule out angina. Patient was found to have congestive heart failure. She did have an echo which was limited. Her estimated ejection fraction was 55%. She had an echo in 2021 which revealed an EF of 70%. Patient does have a BMI of 54.6. She states she is not peeing much even though she is on Lasix. She was seen by visiting nurse who told her she should go to the hospital. Patient denies fever, chills night sweats. She does complain of a global headache. She denies double vision blurred vision loss of vision. Denies ringing or ears decreased hearing. Denies trouble with speech or swallowing. Patient was crying when I entered the room. She informing that she cannot take this. Patient presently has no chest pain. She has had intermittent chest pain left side that is dull the last 2 to 5 minutes. She denies pain with breathing. She denies history of VTE. She denies leg pain, discoloration. She has had some mild swelling. She does endorse orthopnea and dyspnea on exertion. The chest discomfort does not occur with exertion. Patient does have history of obstructive sleep apnea and is noncompliant pliant with her BiPAP/CPAP machine. Review of most recent admission indicates she also had acute kidney injury. This may be worse in reason she is not diuresing. She does have history of hypertension. She states her systolic is normally 130. The monitor presently reads systolic of 210. PE Risk Factors: Positive for Recent immobilization; Negative for Cancer, OCP + Smoking + > 35, Prior DVT or PE, Recent surgery or Recent travel Prior similar symptoms: Yes Recent Illness/Hospitalization: Yes PFSH PFSH Medical History Anxiety Depression Congestive heart failure (CHF) Wears dentures Wears glasses Arthritis Ambulates with cane Cirrhosis Restless legs TIA (transient ischemic attack) Former smoker CPAP (continuous positive airway pressure) dependence Sleep apnea History of echocardiogram History of stress test Hypertension Cardiology follow-up encounter Chronic insomnia History of cirrhosis Obesity (BMI 30-39.9) Sleep apnea Chest pain Atherosclerotic heart disease of [place] coronary artery without angina pectoris Hepatitis C Essential hypertension Home Medications ?Medication ?Instructions ?Recorded ?Last Taken ?Type atorvastatin 40 mg tablet 40 mg PO DAILY cholesterol 1 03/21/25 History trazodone 100 mg tablet 100 mg PO DAILY mental healt h 07/10/24 03/21/25 History thiamine HCl (vitamin B1) 100 mg 100 mg PO DAILY vitam in #30 tabs 07/13/24 03/22/25 Rx tablet gabapentin 300 mg capsule 300 mg PO Q12H nerve pain 03/22/25 History mirtazapine 15 mg tablet 15 mg PO QHS mental health 0 10/18/24 03/22/25 History propranolol 40 mg tablet 60 mg PO BID blood pressure 12/08/24 03/22/25 History sennosides 8.6 mg-docusate sodium 1 tab-cap PO BID PRN constipation 12/08/24 Unknown History 50 mg tablet (Senna Plus) venlafaxine 150 mg tablet,extended 150 mg PO QDAY [facility] 12/08/24 03/22/25 History release 24 hr tirzepatide (weight loss) 2.5 2.5 mg subcut QWEEK [facility]t loss 02/21/25 03/20/25 History mg/0.5 mL subcutaneous solution (Zepbound) magnesium 250 mg tablet 250 mg PO DAILY supplement 0 03/22/25 03/22/25 History mecobalamin (vitamin B12) 1,000 1,000 mcg PO DAILY vit serrato 03/22/25 03/22/25 History mcg lozenges furosemide 40 mg tablet (Lasix) 40 mg PO DAILY #60 tab s 03/24/25 Unknown Rx potassium chloride 20 mEq 20 meq PO DAILY #60 tabs 01/13 Unknown Rx tablet,extended release(part/cryst) Allergy/AdvReac Type Severity Reaction Status Date / Time codeine Allergy Unknown Verified 03/29/25 14:40 latex Allergy Hives Verified 03/29/25 14:40 Penicillins Allergy Unknown Verified 03/29/25 14:40 Family History Father CAD (coronary artery disease) Myocardial infarction History of coronary artery bypass surgery Grandmother Cardiac pacemaker in situ Mother Hypertension Surgical History History of left heart catheterization (LHC) (~07/08/19) History of lumbar spinal fusion History of herniorrhaphy History of hysterectomy History of appendectomy History of cholecystectomy History of bariatric surgery Social History housing: group home Smoking Status: Former smoker alcohol intake: former details: occasional substance use type: does not use caffeine: Yes Type: carbonated beverages Number of servings: 1 and coffee ROS ROS ED Constitutional Constitutional ED: Denies chills, fever(s), sweats or weight loss Eyes Eyes: Denies blurry vision, change in vision or diplopia ENT ENT ED: Denies ear pain, rhinorrhea or sore throat Cardiovascular Cardiovascular: Reports chest pain and orthopnea; Denies palpitations, paroxysmal nocturnal dyspnea or racing heartbeat Respiratory/Chest Respiratory/Chest: Reports dyspnea, dyspnea on exertion and orthopnea; Denies cough or paroxysmal nocturnal dyspnea Gastrointestinal Gastrointestinal: Denies abdominal pain, melena, nausea or vomiting Genitourinary Genitourinary ED: Denies dysuria, hematuria or urinary frequency Musculoskeletal Musculoskeletal: Denies arthralgias or myalgias Integumentary Denies rash Neurologic Neurologic: Reports headache(s); Denies paresthesias or weakness Psychiatric Psychiatric: Reports anxiety and depression; Denies suicidal ideation or suicidal thoughts Hematologic/Lymphatic Hematologic/Lymphatic: Denies easy bleeding or easy bruising EXAM Physical Exam Const Vital Signs: 03/29/25 14:40 03/29/25 15:12 03/29/25 15:45 Temperature 96.6 F L Temperature Source Temporal Pulse Rate 72 81 Respiratory Rate 22 H 17 Respiratory Effort Short of Breath Blood Pressure 167/98 H 147/80 H Blood Pressure Mean 121 102 Pulse Ox 97 95 Oxygen Delivery Method Room Air Room Air Room Air 03/29/25 16:00 03/29/25 17:00 03/29/25 18:00 Temperature 97.8 F 98.2 F Temperature Source Oral Oral Pulse Rate 82 77 73 Respiratory Rate 20 H 16 22 H Respiratory Effort Blood Pressure 142/80 H 155/84 H 152/87 H Blood Pressure Mean 100 107 108 Pulse Ox 99 95 96 Oxygen Delivery Method Room Air Room Air Room Air Positive well nourished and well developed Constitutional Narrative: Patient is tearful. Patient's affect is flat mood is depressed. BMI is approximately 55. General Appearance ED: well developed; Negative for pallor HEENT Reports moist mucous membranes HEENT Narrative: Head is atraumatic normocephalic. Ears normal. TMs normal. Nares patent. Posterior pharynx is normal. Eyes PERRL and EOMs intact bilaterally Eyes Narrative: There is no photophobia. There is no nystagmus. General Eye ED: Negative for pale conjunctiva or scleral icterus Neck no lymphadenopathy, supple and no meningeal signs Neck Narrative: Unable to assess for JVD due to body habitus. Resp normal respiratory effort and clear to auscultation bilaterally Cardio regular rate, regular rhythm, S1 normal heart sound, S2 normal heart sound and no murmurs GI non-tender and non-distended GI Narrative: Exam limited due to body habitus. Auscultation: normoactive bowel sounds Palpation: soft Extremity Negative for normal to inspection Extremity Narrative: Edema otherwise unremarkable. (There is no discoloration, asymmetry, leg vein distention, palpable cords tenderness on the distribution of the deep venous system.) General Extremety ED: Yes edema General Extremity: edema Neuro oriented x3 Sensorium / Orientation: alert Speech: speech normal Psych Mood & Affect: depressed, anxious and tearful Skin no wounds and skin turgor normal General Skin Exam: Negative for jaundice or pallor MDM MDM MDM Narrative Medical decision making narrative: With history of recent acute kidney injury not making much urine despite of L asix need to assess renal function. With also complaint of dyspnea at rest not being mobile 1 needs to consider DVT and patient is not PERC negative therefore D-dimer was obtained. Chest x-ray was obtained to see if there is any evidence of pneumonia. Clinically she is not in heart failure at this point. She may have right heart failure but not left. Suspect her right heart failure is due to her noncompliance with her BiPAP/CPAP machine. As previously noted most recent admission was reviewed as well as prior records. This was documented in the [facility] narrative History & Record Review Additional record(s) reviewed:: Prior inpatient record, Prior ED visit and Prior labs Lab Data Attestation: I reviewed the patient's lab results. Lab results narrative: CBC is unremarkable Labs: Laboratory Results - last 24 hr 03/29/25 03/29/25 16:06 17:30 WBC 7.4 RBC 4.38 Hgb 12.9 Hct 39.9 MCV 91.1 MCH 29.5 MCHC 32.3 RDW Std Deviation 49.5 H RDW Coeff of Xavier 15.0 H Plt Count 127 L MPV 11.5 Immature Gran % (Auto) 0.700 Neut % (Auto) 72.7 H Lymph % (Auto) 18.7 L [place] % (Auto) 6.9 Eos % (Auto) 0.5 Baso % (Auto) 0.5 Absolute Neuts (auto) 5.4 Absolute Lymphs (auto) 1.38 Nucleated RBC % 0 D-Dimer Quant (PE/DVT) 0.27 Sodium 141 Potassium 3.9 Chloride 106 Carbon Dioxide 23.0 Anion Gap 12 BUN 18 Creatinine 1.09 Est GFR (MDRD) Non-Af 57 L BUN/Creatinine Ratio 16.6 Glucose 101 H Calcium 8.8 Troponin T High Sens 8 D Troponin T Hi Sens 2 Hr 9 Radiography Chest X-Ray - ED: 1 View and Read by ED Physician (Patient film is suboptimal due to body habitus. Heart appears to be slightly enlarged. There is no evidence of cephalization, curly B-lines or effusion. There is no infiltrate. Osseous structures are unremarkable and unchanged from chest x-ray obtained earlier this month.) Diagnostic Testing: Clinical Impression(s) from Imaging Studies Chest X-Ray 03/29/25 16:10 IMPRESSION: Borderline cardiomegaly. No evidence of acute pulmonary disease. Reading Location: [facility] EKG Initial EKG: Attestation: I personally reviewed and interpreted this EKG as follows: Interpretation: Sinus Rhythm (Rate is 80. TX interval is 180 ms. QS duration 84 ms. QT duration 160 ms. [place] is normal. I am in disagreement with the computer is read of possible inferior infarct.) Prior: Unchanged Treatment and Re-Evaluation :: Patient was informed of results. Patient declined Tylenol. She has allergies to opiates. She states she requires Benadryl prior to taking opiates. She was not given opiates. She declined the Tylenol. When she was reassessed at 1850. She was informed of results. She is demanding that she is fluid overloaded. Clinically you are not. The majority of your issues have to do with your weight. Patient has a BMI of approximately 55. Suspect that she may have pickwickian syndrome. And the edema is due to right heart failure from obstructive sleep apnea. Patient presently has a friend staying with her. Spoke to her about help at home and case management to see her, Shelley. She states she does want to go to her group home. She states she will go home. Discharge Plan Triage Chief Complaint: Shortness of Breath ED Provider: Phillip Wren Dx/Rx/DC Orders Clinical Impression: Breathlessness on exertion, Elevated blood pressure reading with diagnosis of hypertension, Coronary artery disease, Body mass index (BMI) greater than 50, Obesity hypoventilation syndrome Instructions: ED Dyspnea Prescriptions: No Action gabapentin 300 mg capsule 300 mg PO Q12H mirtazapine 15 mg tablet 15 mg PO QHS venlafaxine 150 mg tablet extended release 24hr 150 mg PO QDAY sennosides-docusate sodium [Senna Plus] 8.6-50 mg tablet 1 tab-cap PO BID PRN (Reason: constipation) trazodone 100 mg tablet 100 mg PO DAILY atorvastatin 40 mg tablet 40 mg PO DAILY thiamine HCl (vitamin B1) 100 mg tablet 100 mg PO DAILY Qty: 30 0RF propranolol 40 mg tablet 60 mg PO BID mecobalamin (vitamin B12) 1,000 mcg lozenge 1,000 mcg PO DAILY Rx Instructions: allow to dissolve in mouth OR may chew lightly before swallowing magnesium 250 mg tablet 250 mg PO DAILY furosemide [Lasix] 40 mg tablet 40 mg PO DAILY Qty: 60 0RF potassium chloride 20 mEq tablet,ER particles/crystals 20 meq PO DAILY Qty: 60 0RF Zepbound 2.5 mg/0.5 mL solution 2.5 mg subcut QWEEK Primary Care Provider: Valerie Ahmadi Referrals: Valerie Ahmadi MD [Primary Care Provider] - 1 Week Print Language: Maltese Disposition Disposition: Home, Self Care
--- NOTE | 2025-03-29 16:10 | RAD_ITS ---
PROCEDURE: CHEST PA AND LATERAL 03/29/2025 REASON FOR EXAM: DYSPNEA TECHNIQUE: CHEST PA AND LATERAL COMPARISON: 03/22/2025 FINDINGS: Lungs/Pleura: No focal consolidation, lobar collapse, pneumothorax or sizable pleural effusion. Heart/Mediastinum: Borderline enlarged. Calcification of the aortic arch. Bones/Soft tissues: Mild multilevel degenerative changes of the spine. Cholecystectomy surgical clips. Cervical ACDF metallic fixation hardware. RAD/Chest PA and Lateral IMPRESSION: Borderline cardiomegaly. No evidence of acute pulmonary disease. Reading Location: [id number]
[2025-03-29 16:30] LABS: Hematocrit 39.9 % (37-47); Hemoglobin 12.9 g/dL (12.0-15.0); Immature Granulocytes Count 0.050 X10^3/uL (0.0-0.0); Mean Corp Hgb Conc 32.3 g/dL (32-36); Mean Corpuscular Volume 91.1 fL (81-99); Mean Platelet Vol. 11.5 fl (6.2-12.0); NRBC Flagged by Analyzer 0 % (0-5); Platelet Count 127 K/mm3 (150-450); RBC Distribution Width CV 15.0 % (11.6-14.6); RBC Distribution Width SD 49.5 fl (35.1-43.9); Red Blood Count 4.38 M/mm3 (4.2-5.4); White Blood Count 7.4 K/mm3 (4.4-11.0)
[2025-03-29 17:21] LABS: D-Dimer Quantitative (DVT/PE) 0.27 FEU/ug/m (0.27-0.49)
[2025-03-29 17:25] LABS: Troponin T High Sensitivity 8 ng/L (<=14)
[2025-03-29 17:26] LABS: Anion Gap 12 (5-15); BUN 18 mg/dL (4-19); BUN/Creat Ratio 16.6 RATIO (10-20); Calcium,Total 8.8 mg/dL (7.6-11.0); Carbon Dioxide 23.0 mmol/L (21.0-32.0); Chloride 106 mmol/L (98-108); Glucose 101 mg/dL (70-99); Potassium 3.9 mmol/L (3.3-5.1)
[2025-03-29 18:36] LABS: Troponin T High Sens 2 HR 9 ng/L (<=14)
== END 2025-03-29 19:10 | disposition home or self-care (01) ==
PROVIDERS: Emergency Provider Emergency Medicine; PCP Internal Medicine; Visit Provider Emergency Medicine
DX: R06.01 Orthopnea (principal); I11.0 Hypertensive heart disease with heart failure; I50.9 Heart failure, unspecified; Z68.43 Body mass index [BMI] 50.0-59.9, adult; E66.2 Morbid (severe) obesity with alveolar hypoventilation; R06.81 Apnea, not elsewhere classified; R51.9 Headache, unspecified; Z87.891 Personal history of nicotine dependence; I25.10 Atherosclerotic heart disease of native coronary artery without angina pectoris; R03.0 Elevated blood-pressure reading, without diagnosis of hypertension; F41.9 Anxiety disorder, unspecified; F32.A Depression, unspecified; R07.9 Chest pain, unspecified; Z98.84 Bariatric surgery status; Z98.1 Arthrodesis status; Z90.49 Acquired absence of other specified parts of digestive tract; Z99.89 Dependence on other enabling machines and devices
CPT/HCPCS: 36415; 71046; 80048; 84484; 85025; 85379; 93005; 96374; 96376; 99284; A4216; J2405